=== PATIENT | male | born 1950 | race Caucasian/White ===

== ENCOUNTER → 2016-10-24 | Outpatient (CLI) | payer MEDICARE, OTHER ==
[~2016-10-24] MED LIST: /ADVA50050 IN; /FEXO60TA OR; ACTO45TA OR; ALBU17IN2 INH; ALLO100T OR; ALLO100T PO; AMLO5TAB OR; ASCO500T PO; ASPI81TA85 PO; BUPR100T12 OR; BUPR300T34 PO; CIAL20TA OR; CIAL20TA PO; COLA100C PO; DIAZ5TAB OR; DULC10SU2 PR; FEXO60CA PO; FLEEENE4 PR; FLON1SPR; FLUO20CA8 PO; FOLI1TAB OR; FOLI1TAB2 PO; GABA-283 PO; HUMA100I3 SC; IMIT50TA OR; INSULADS SC; INSULANT SC; LASI40TA OR; LISI10TA2 PO; LISI10TA4 PO; LISI5TAB OR; MAGN400C2 PO; META28.35 PO; METO-207 PO; MILK140C PO; MILKSUS PO; NEUR600T PO; NOVOLOG100 MG/ML SC; PERC10TA17 PO; PERC5TAB6 PO; PRAD150C PO; PRAV1TAB39 PO; PRAV20TA2 OR; PREV15CA OR; PREV30CA11 PO; PROZ20CA OR; SENO8.6T2 PO; SYMB80INH INH; THIA100T OR; TOPR25TA OR; TOPR25TA PO; TYLE325T5 PO; VALI5TAB PO; VIAG100T PO; VITA10002 PO; VITA100T2 PO; VITA200016 PO; VITACAP8 PO; ZANA4CAP PO; [UNRECOGNIZED DRUG - CODE] PO
[2016-10-24 21:54] LABS: CREATININE FOR GFR 1.35 MG/DL (0.70-1.30); GLOMERULAR FILTRATION RATE 56.3 (>49)
== END ==
LOC: M SMT 13:57
PROVIDERS: ATTEND Orthopaedic Surgery
DX: M89.9 Disorder of bone, unspecified (principal)

== ENCOUNTER → 2016-11-01 | Outpatient (CLI) | payer MEDICARE, OTHER ==
--- NOTE | 2016-11-01 16:28 | REP ---
MRI study of the right calf without and with IV gadolinium: History: Question proximal fibular lesion. The patient is status post right hip replacement. No comparison radiographs of the right TIB-fib area. Comparison is made with radiographs of the right femur from October 30, 2015. There is thickening of the anterior aspect of the proximal fibula on the lateral radiograph at the edge of the field of view which may be post-traumatic, old post-traumatic deformity. MR technique: Axial, coronal and sagittal imaging planes are utilized. T1 and T2-weighted scans were obtained. Gadolinium enhancement dose is 11 ml of intravenous ProHance. This was a half-dose protocol re: EGFR 56.3 ml/minute. MRI findings: There is an area of what appears to be old post-traumatic deformity in the proximal fibular diaphysis on the right side. Cortical and medullary bone signal intensity are normal. No intramedullary or periosteal edema is seen. Cortical and medullary bone signal intensity are normal throughout the tibia and fibula. No periosteal reaction is seen. No soft tissue cyst or mass is observed. However, there is abnormal skeletal muscle signal intensity in the anterior compartment, mild in degree in the mid and proximal calf consistent with peroneal nerve distribution with neurogenic muscle edema or localized skeletal muscle contusion. No muscle tear or hematoma is seen. No abnormal contrast enhancement is seen on post gadolinium enhanced images. Skeletal muscle signal intensity is otherwise normal. Minimal joint fluid is seen at the knee. Impression: Abnormal skeletal muscle signal intensity on T2-weighted scans in the anterior compartment of the proximal and mid calf on the right. Question peroneal nerve neuropathy versus localized skeletal muscle contusion. Signed by Matthew Joseph MD 11/01/2016 04:53 P
== END ==
LOC: M RAD 13:47
PROVIDERS: ATTEND Orthopaedic Surgery
DX: M89.9 Disorder of bone, unspecified (principal)
CPT/HCPCS: 73720; A9576

== ENCOUNTER → 2016-11-06 | Outpatient (CLI) | payer MEDICARE, OTHER ==
[2016-11-06 14:07] LABS: ALBUMIN 3.8 GM/DL (3.2-5.2); ALBUMIN/GLOBULIN RATIO 1.19 (1.00-1.93); BILIRUBIN,TOTAL 0.5 MG/DL (0.2-1.0); CALCIUM LEVEL 9.8 MG/DL (8.8-10.2); CREATININE FOR GFR 1.4 MG/DL (0.70-1.30); MAGNESIUM LEVEL 1.9 MG/DL (1.8-2.4); POTASSIUM SERUM 4.9 MEQ/L (3.5-5.1)
[2016-11-06 14:12] LABS: MEAN CORPUSCULAR HEMOGLOBIN 29.5 pg (27.0-33.0); MEAN CORPUSCULAR VOLUME 92.2 fl (80.0-96.0); RED CELL DISTRIBUTION WIDTH 14.5 % (11.5-14.5)
== END ==
LOC: M SMT 09:00
PROVIDERS: ATTEND Physician Assistant
DX: I42.0 Dilated cardiomyopathy (principal); E78.00 Pure hypercholesterolemia, unspecified; I48.0 Paroxysmal atrial fibrillation

== ENCOUNTER 2017-01-04 17:15 | Emergency (ER) | payer MEDICARE, OTHER ==
[~2017-01-04] VITALS: Ht 188 cm; Wt 86.2 kg
[2017-01-04] MEDS ORDERED: NS 1,000 ML IV SCH (17:30)
[2017-01-04] MEDS ORDERED: INSUHUMDS SC (17:41)
[2017-01-04] MEDS ORDERED: TRES1INJ2 SC (17:41)
[2017-01-04 18:24] LABS: BASO % 0.3 % (0.0-1.0); EOS % 0.4 % (0.0-3.0); LARGE UNSTAINED CELL # 0.2 K/mm3 (0.0-0.4); LARGE UNSTAINED CELL % 1.6 % (0.0-4.0); LYMPH # 1.2 K/mm3 (1.5-4.5); LYMPH % 10.7 % (24.0-44.0); MEAN CORPUSCULAR HEMOGLOBIN 29.3 pg (27.0-33.0); MEAN CORPUSCULAR HGB CONC 32.2 g/dl (32.0-36.5); MEAN CORPUSCULAR VOLUME 91.1 fl (80.0-96.0); MONO # 0.7 K/mm3 (0.0-0.8); MONO % 7.2 % (0.0-5.0); NEUTROPHILS # 7.6 K/mm3 (1.8-7.7); NEUTROPHILS % 79.8 % (36.0-66.0); PLATELET COUNT, AUTOMATED 226 k/mm3 (150-450); RED CELL DISTRIBUTION WIDTH 13.3 % (11.5-14.5); WHITE BLOOD COUNT 9.5 K/mm3 (4.0-10.0)
--- NOTE | 2017-01-04 18:40 | REP ---
CHEST, TWO VIEWS: REASON: Chest pain. COMPARISON: 10/29/2015 COMPARISON: No priors. FINDINGS: The superior mediastinal structures are midline. The cardiac silhouette is unremarkable in size, shape, and position. The diaphragmatic surfaces of the lungs are regular, and the costophrenic angles are clear. The pulmonary atkins are clear. The imaged osseous structures are intact. No significant change from the prior exam other than technique. IMPRESSION: There is no acute cardiopulmonary disease. Signed by Noé Mendez DO 01/04/2017 07:18 P
[2017-01-04 18:55] LABS: ANION GAP 10 MEQ/L (8-16); BLOOD UREA NITROGEN 11 MG/DL (7-18); CALCIUM LEVEL 8.9 MG/DL (8.8-10.2); CARBON DIOXIDE LEVEL 26 MEQ/L (21-32); CHLORIDE LEVEL 102 MEQ/L (98-107); CREATININE FOR GFR 0.88 MG/DL (0.70-1.30); GLOMERULAR FILTRATION RATE > 60.0 (>49); GLUCOSE, FASTING 129 MG/DL (80-110); POTASSIUM SERUM 4.8 MEQ/L (3.5-5.1); SODIUM LEVEL 138 MEQ/L (136-145)
--- NOTE | 2017-01-04 18:58 | REP ---
CT HEAD WITHOUT CONTRAST: HISTORY: Syncopal episode. COMPARISON: 12/09/2014 The deep cerebral white matter is unchanged. The posterior fossa is unchanged. There is no evidence of an acute intracranial hemorrhagic or nonhemorrhagic event. There is no skull fracture. The paranasal sinuses and mastoid air cells are clear. IMPRESSION: Stable chronic changes compared to 12/09/2014 showing deep white matter ischemic disease and atrophy. There is no evidence of acute disease. Signed by Noé Mendez DO 01/04/2017 07:18 P
[2017-01-04 20:29] VITALS: BP 133/78
--- NOTE | 2017-01-05 08:54 | ECGEPIP ---
Stationary ECG Study [facility] - ED Test Date: 2017-01-04 Pat Name: CHACHO LANDRUM Department: Room: - Gender: M Manager Government: JT : 1950 Requested By: MARISOL Snyder Order Number: [id number] Reading MD: Erica Guillory Measurements Intervals [place] Rate: 69 P: -30 [place]: 127 QRS: -24 QRSD: 89 T: -10 QT: 418 QTc: 448 Interpretive Statements SINUS RHYTHM INFERIOR MYOCARDIAL INFARCTION, OF INDETERMINATE AGE INCREASED RATE 04/26/16 Electronically Signed On 01-05-2017 8:54:13 EDT by Erica Guillory
== END 2017-01-04 20:39 | disposition home or self-care (01) ==
LOC: EDBD 17:15 → M ED 17:44
DX: R55 Syncope and collapse (principal); E11.65 Type 2 diabetes mellitus with hyperglycemia; I12.9 Hypertensive chronic kidney disease with stage 1 through stage 4 chronic kidney disease, or unspecified chronic kidney disease; I48.91 Unspecified atrial fibrillation; I42.0 Dilated cardiomyopathy; E11.22 Type 2 diabetes mellitus with diabetic chronic kidney disease; E55.9 Vitamin D deficiency, unspecified; E78.5 Hyperlipidemia, unspecified; N18.9 Chronic kidney disease, unspecified; F32.9 Major depressive disorder, single episode, unspecified; N52.9 Male erectile dysfunction, unspecified; Z79.82 Long term (current) use of aspirin; Z79.899 Other long term (current) drug therapy

== ENCOUNTER → 2017-11-16 | Outpatient (CLI) | payer MEDICARE, OTHER ==
[2017-11-16 15:04] LABS: HEMATOCRIT 44.8 % (42.0-52.0); HEMOGLOBIN 14.8 g/dl (14.0-18.0); MEAN CORPUSCULAR HEMOGLOBIN 28.4 pg (27.0-33.0); MEAN CORPUSCULAR VOLUME 85.8 fl (80.0-96.0); PLATELET COUNT, AUTOMATED 237 10^3/uL (150-450); RED BLOOD COUNT 5.22 10^6/uL (4.30-6.10); RED CELL DISTRIBUTION WIDTH 13.9 % (11.5-14.5); WHITE BLOOD COUNT 7.3 10^3/uL (4.0-10.0)
[2017-11-16 15:14] LABS: ALBUMIN 3.7 GM/DL (3.2-5.2); ALBUMIN/GLOBULIN RATIO 1.09 (1.00-1.93); ALKALINE PHOSPHATASE 124 U/L (45-117); ALT/SGPT 33 U/L (12-78); ANION GAP 7 MEQ/L (8-16); AST/SGOT 29 U/L (7-37); BILIRUBIN,TOTAL 0.5 MG/DL (0.2-1.0); BLOOD UREA NITROGEN 11 MG/DL (7-18); CARBON DIOXIDE LEVEL 28 MEQ/L (21-32); CHLORIDE LEVEL 104 MEQ/L (98-107); CHOLESTEROL LEVEL 137 MG/DL (<200); CHOLESTEROL RISK RATIO 2.209 (<5); CREATININE FOR GFR 1.04 MG/DL (0.70-1.30); GLOMERULAR FILTRATION RATE > 60.0 (>49); GLUCOSE, FASTING 374 MG/DL (70-100); HDL CHOLESTEROL 62 MG/DL (>40); LDL CHOLESTEROL 56.8 MG/DL (<100); MAGNESIUM LEVEL 1.5 MG/DL (1.8-2.4); NON-HDL-C 75 MG/DL; POTASSIUM SERUM 4.8 MEQ/L (3.5-5.1); SODIUM LEVEL 139 MEQ/L (136-145); TOTAL PROTEIN 7.1 GM/DL (6.4-8.2); TRIGLYCERIDES LEVEL 91 MG/DL (<150)
== END ==
LOC: M SMT 08:26
DX: I48.0 Paroxysmal atrial fibrillation (principal); I42.0 Dilated cardiomyopathy; I50.32 Chronic diastolic (congestive) heart failure; E78.00 Pure hypercholesterolemia, unspecified
CPT/HCPCS: 83735

== ENCOUNTER → 2017-11-16 | Outpatient (CLI) | payer MEDICARE, OTHER ==
[2017-11-16 14:58] LABS: BASO % 0.4 % (0.0-1.0); EOS # 0.2 10^3/uL (0.0-0.50); EOS % 2.8 % (0.0-3.0); HEMATOCRIT 44.7 % (42.0-52.0); HEMOGLOBIN 14.8 g/dl (14.0-18.0); IMMATURE GRANULOCYTE % 0.5 % (0-0); LYMPH # 1.9 10^3/uL (1.5-4.5); LYMPH % 24.9 % (24.0-44.0); MEAN CORPUSCULAR HEMOGLOBIN 28.3 pg (27.0-33.0); MEAN CORPUSCULAR HGB CONC 33.1 g/dl (32.0-36.5); MEAN CORPUSCULAR VOLUME 85.5 fl (80.0-96.0); MONO # 0.7 10^3/uL (0.0-0.8); MONO % 9.7 % (0.0-5.0); NEUTROPHILS # 4.6 10^3/uL (1.8-7.7); NEUTROPHILS % 61.7 % (36.0-66.0); PLATELET COUNT, AUTOMATED 248 10^3/uL (150-450); RED BLOOD COUNT 5.23 10^6/uL (4.30-6.10); RED CELL DISTRIBUTION WIDTH 13.8 % (11.5-14.5); WHITE BLOOD COUNT 7.4 10^3/uL (4.0-10.0)
[2017-11-16 15:08] LABS: C REACTIVE PROTEIN QUANTITATIV < 0.30 MG/DL (0.00-0.30); RHEUMATOID FACTOR QUANT < 10.0 IU/ML (0-15.0)
[2017-11-16 17:22] LABS: ERYTHROCYTE SEDIMENTATION RATE 4 mm/hr (0-20)
[2017-11-18 00:06] LABS: ANTINUCLEAR ANTIBODIES DIRECT Negative (Negative); Lyme Disease IgG/IgM Antibodie <0.91 ISR (0.00-0.90); Lyme Disease IgM Ab Quantitati <0.80 index (0.00-0.79)
== END ==
LOC: M SMT 08:31
DX: M17.12 Unilateral primary osteoarthritis, left knee (principal); I42.0 Dilated cardiomyopathy; I48.0 Paroxysmal atrial fibrillation; I50.32 Chronic diastolic (congestive) heart failure; E78.00 Pure hypercholesterolemia, unspecified
CPT/HCPCS: 83735; 84550

== ENCOUNTER 2018-02-23 19:09 | Emergency (ER) | payer MEDICARE, OTHER ==
[2018-02-23] MEDS: NORCO 5/325MG TABLET (BULK FOR ED) PO (21:46)
[2018-02-23] MEDS: PERCOCET 5MG/325MG TAB PO (21:46)
== END 2018-02-23 22:14 | disposition home or self-care (01) ==
LOC: M ED 19:09
DX: S42.031A Displaced fracture of lateral end of right clavicle, initial encounter for closed fracture (principal); W01.0XXA Fall on same level from slipping, tripping and stumbling without subsequent striking against object, initial encounter; Y92.098 Other place in other non-institutional residence as the place of occurrence of the external cause; F10.10 Alcohol abuse, uncomplicated; Z87.891 Personal history of nicotine dependence; J45.909 Unspecified asthma, uncomplicated; K21.9 Gastro-esophageal reflux disease without esophagitis; I50.9 Heart failure, unspecified; I13.0 Hypertensive heart and chronic kidney disease with heart failure and stage 1 through stage 4 chronic kidney disease, or unspecified chronic kidney disease; N18.9 Chronic kidney disease, unspecified; F41.9 Anxiety disorder, unspecified; F32.9 Major depressive disorder, single episode, unspecified; E11.40 Type 2 diabetes mellitus with diabetic neuropathy, unspecified; Z79.899 Other long term (current) drug therapy; Z79.01 Long term (current) use of anticoagulants; Z79.82 Long term (current) use of aspirin; Z79.4 Long term (current) use of insulin
CPT/HCPCS: 73030

== ENCOUNTER → 2018-03-26 | Outpatient (CLI) | payer MEDICARE, OTHER | LOC: M RAD 09:12 | DX: N18.2 Chronic kidney disease, stage 2 (mild) (principal); I12.9 Hypertensive chronic kidney disease with stage 1 through stage 4 chronic kidney disease, or unspecified chronic kidney disease; N20.0 Calculus of kidney; N28.1 Cyst of kidney, acquired | CPT/HCPCS: 76775 ==

== ENCOUNTER 2018-04-11 11:07 | Emergency (ER) | payer MEDICARE, OTHER ==
[2018-04-11] MEDS: TETANUS/DIPHTHERIA TOX ADSORB ADULT 0.5ML SYR/VIAL (90714) IM (12:41)
[2018-04-11] MEDS: NS 1,000 ML IV (13:42)
[2018-04-11 13:51] LABS: BASO % 0.4 % (0.0-1.0); EOS # 0.2 10^3/uL (0.0-0.50); EOS % 1.4 % (0.0-3.0); HEMATOCRIT 40.4 % (42.0-52.0); HEMOGLOBIN 13.4 g/dl (13.5-17.5); IMMATURE GRANULOCYTE % 0.6 % (0-3.0); LYMPH # 1.4 10^3/uL (1.5-4.5); LYMPH % 13.7 % (24.0-44.0); MEAN CORPUSCULAR HEMOGLOBIN 28.3 pg (27.0-33.0); MEAN CORPUSCULAR HGB CONC 33.2 g/dl (32.0-36.5); MEAN CORPUSCULAR VOLUME 85.4 fl (80.0-96.0); MONO # 0.9 10^3/uL (0.0-0.8); NEUTROPHILS # 7.8 10^3/uL (1.8-7.7); NEUTROPHILS % 74.9 % (36.0-66.0); PLATELET COUNT, AUTOMATED 247 10^3/uL (150-450); RED BLOOD COUNT 4.73 10^6/uL (4.30-6.10); RED CELL DISTRIBUTION WIDTH 14.5 % (11.5-14.5); WHITE BLOOD COUNT 10.4 10^3/uL (4.0-10.0)
[2018-04-11 15:26] LABS: ANION GAP 8 MEQ/L (8-16); BLOOD UREA NITROGEN 15 MG/DL (7-18); CALCIUM LEVEL 8.9 MG/DL (8.8-10.2); CARBON DIOXIDE LEVEL 28 MEQ/L (21-32); CHLORIDE LEVEL 104 MEQ/L (98-107); CK-MB VALUE MASS 10.7 NG/ML (<3.6); CPK CREATINE PHOSPHOKINASE 309 U/L (39-308); CREATININE FOR GFR 0.95 MG/DL (0.70-1.30); GLOMERULAR FILTRATION RATE > 60.0 (>49); GLUCOSE, FASTING 183 MG/DL (70-100); MB/CK RELATIVE INDEX 3.46 (< OR =4); POTASSIUM SERUM 4.1 MEQ/L (3.5-5.1); SODIUM LEVEL 140 MEQ/L (136-145); TROPONIN I < 0.02 NG/ML (< 0.10)
== END 2018-04-11 16:04 | disposition home or self-care (01) ==
LOC: M ED 11:07
DX: S09.90XA Unspecified injury of head, initial encounter (principal); S01.01XA Laceration without foreign body of scalp, initial encounter; W01.10XA Fall on same level from slipping, tripping and stumbling with subsequent striking against unspecified object, initial encounter; Y92.099 Unspecified place in other non-institutional residence as the place of occurrence of the external cause; Y93.01 Activity, walking, marching and hiking; Y99.9 Unspecified external cause status; I48.91 Unspecified atrial fibrillation; I25.10 Atherosclerotic heart disease of native coronary artery without angina pectoris; E11.9 Type 2 diabetes mellitus without complications; I10 Essential (primary) hypertension; M19.90 Unspecified osteoarthritis, unspecified site; J44.9 Chronic obstructive pulmonary disease, unspecified; K21.9 Gastro-esophageal reflux disease without esophagitis; F41.9 Anxiety disorder, unspecified; F32.9 Major depressive disorder, single episode, unspecified; Z87.891 Personal history of nicotine dependence; Z79.82 Long term (current) use of aspirin; Z79.4 Long term (current) use of insulin; Z79.899 Other long term (current) drug therapy
CPT/HCPCS: 90714

== ENCOUNTER → 2018-05-13 | Outpatient (CLI) | payer MEDICARE, OTHER ==
[2018-05-13 13:32] LABS: ALBUMIN 3.6 GM/DL (3.2-5.2); ALBUMIN/GLOBULIN RATIO 1.13 (1.00-1.93); ALKALINE PHOSPHATASE 151 U/L (45-117); ALT/SGPT 27 U/L (12-78); ANION GAP 8 MEQ/L (8-16); AST/SGOT 29 U/L (7-37); BILIRUBIN,TOTAL 0.7 MG/DL (0.2-1.0); BLOOD UREA NITROGEN 14 MG/DL (7-18); CALCIUM LEVEL 8.8 MG/DL (8.8-10.2); CARBON DIOXIDE LEVEL 28 MEQ/L (21-32); CHLORIDE LEVEL 102 MEQ/L (98-107); CREATININE FOR GFR 1.07 MG/DL (0.70-1.30); GLOMERULAR FILTRATION RATE > 60.0 (>49); GLUCOSE, FASTING 370 MG/DL (70-100); MAGNESIUM LEVEL 1.5 MG/DL (1.8-2.4); POTASSIUM SERUM 4.8 MEQ/L (3.5-5.1); SODIUM LEVEL 138 MEQ/L (136-145); TOTAL PROTEIN 6.8 GM/DL (6.4-8.2)
[2018-05-13 14:57] LABS: HEMATOCRIT 38.4 % (42.0-52.0); HEMOGLOBIN 12.8 g/dl (13.5-17.5); MEAN CORPUSCULAR HEMOGLOBIN 28.1 pg (27.0-33.0); MEAN CORPUSCULAR HGB CONC 33.3 g/dl (32.0-36.5); MEAN CORPUSCULAR VOLUME 84.4 fl (80.0-96.0); PLATELET COUNT, AUTOMATED 231 10^3/uL (150-450); RED BLOOD COUNT 4.55 10^6/uL (4.30-6.10); RED CELL DISTRIBUTION WIDTH 13.6 % (11.5-14.5); WHITE BLOOD COUNT 6.1 10^3/uL (4.0-10.0)
== END ==
LOC: M LAB 12:16
DX: I42.0 Dilated cardiomyopathy (principal)
CPT/HCPCS: 83735

== ENCOUNTER → 2018-05-16 | Outpatient (REF) | payer MEDICARE, OTHER ==
[2018-05-16 14:15] LABS: FOLATE > 24.0 NG/ML; VITAMIN B12 LEVEL 1110 PG/ML
[2018-05-16 14:19] LABS: FERRITIN 14 NG/ML (26-388); FREE T4 1.11 NG/DL (0.76-1.46); IRON (FE) 34 UG/DL (65-175); PERCENT SATURATION 7.6 % (19.7-50.0); TOTAL IRON BINDING CAPACITY 448 UG/DL (250-450)
== END ==
LOC: M SFHCADAM 10:01
DX: D64.9 Anemia, unspecified (principal)
CPT/HCPCS: 82746

== ENCOUNTER → 2018-05-17 | Outpatient (CLI) | payer MEDICARE, OTHER | LOC: M LAB 09:40 | DX: D64.9 Anemia, unspecified (principal) ==

== ENCOUNTER → 2018-05-24 | Outpatient (REF) | payer MEDICARE, OTHER ==
[2018-05-24 19:47] LABS: ANION GAP 11 MEQ/L (8-16); BLOOD UREA NITROGEN 13 MG/DL (7-18); CALCIUM LEVEL 9.1 MG/DL (8.8-10.2); CARBON DIOXIDE LEVEL 25 MEQ/L (21-32); CHLORIDE LEVEL 102 MEQ/L (98-107); CREATININE FOR GFR 1.04 MG/DL (0.70-1.30); GLOMERULAR FILTRATION RATE > 60.0 (>49); GLUCOSE, FASTING 305 MG/DL (70-100); POTASSIUM SERUM 4.4 MEQ/L (3.5-5.1); SODIUM LEVEL 138 MEQ/L (136-145)
[2018-05-24 20:04] LABS: HEMATOCRIT 38.4 % (42.0-52.0); HEMOGLOBIN 12.6 g/dl (13.5-17.5); MEAN CORPUSCULAR HGB CONC 32.8 g/dl (32.0-36.5); MEAN CORPUSCULAR VOLUME 85.3 fl (80.0-96.0); PLATELET COUNT, AUTOMATED 241 10^3/uL (150-450); RED CELL DISTRIBUTION WIDTH 14.4 % (11.5-14.5); WHITE BLOOD COUNT 7.8 10^3/uL (4.0-10.0)
== END ==
LOC: M SFHCADAM 13:31
DX: D50.0 Iron deficiency anemia secondary to blood loss (chronic) (principal)
CPT/HCPCS: 80048

== ENCOUNTER 2018-07-10 08:09 | Day surgery (SDC) | payer MEDICARE, OTHER ==
[2018-07-10] MEDS: NS 1,000 ML IV (08:15)
[2018-07-10 09:51] LABS: BEDSIDE GLUCOSE 148 MG/DL (80-115)
[2018-07-10] MEDS ORDERED: fentaNYL 100 MCG/2 ML INJECTION (J3010) As Ordered (09:54)
[2018-07-10] MEDS ORDERED: LIDOCAINE 2% INJ 100 MG/5 ML SDV (FOR ANES.) As Ordered (09:54)
[2018-07-10] MEDS ORDERED: PROPOFOL 200 MG/20 ML VIAL As Ordered ×2 (09:54)
== END 2018-07-10 11:01 | disposition home or self-care (01) ==
LOC: M OPP 08:09
DX: D50.9 Iron deficiency anemia, unspecified (principal); Z86.010 Personal history of colon polyps; K64.0 First degree hemorrhoids; K57.30 Diverticulosis of large intestine without perforation or abscess without bleeding; K22.8 Other specified diseases of esophagus; K44.9 Diaphragmatic hernia without obstruction or gangrene; R63.8 Other symptoms and signs concerning food and fluid intake; R11.0 Nausea; I48.91 Unspecified atrial fibrillation; I50.9 Heart failure, unspecified; I11.0 Hypertensive heart disease with heart failure; E78.5 Hyperlipidemia, unspecified; I42.9 Cardiomyopathy, unspecified; E11.9 Type 2 diabetes mellitus without complications; K21.9 Gastro-esophageal reflux disease without esophagitis; R12 Heartburn; M19.90 Unspecified osteoarthritis, unspecified site; H25.9 Unspecified age-related cataract; G43.909 Migraine, unspecified, not intractable, without status migrainosus; M10.9 Gout, unspecified; F41.9 Anxiety disorder, unspecified; F32.9 Major depressive disorder, single episode, unspecified; J45.909 Unspecified asthma, uncomplicated; R06.83 Snoring; N18.9 Chronic kidney disease, unspecified; Z79.899 Other long term (current) drug therapy; Z79.82 Long term (current) use of aspirin; Z79.4 Long term (current) use of insulin; Z79.01 Long term (current) use of anticoagulants; Z87.891 Personal history of nicotine dependence
CPT/HCPCS: 45378

== ENCOUNTER → 2018-09-30 | Outpatient (REF) | payer MEDICARE, OTHER ==
[2018-09-30 13:29] LABS: BACTERIA, URINE AUTO NEGATIVE (NEGATIVE); RBC, URINE AUTO 3 /HPF (0-3); SQUAMOUS EPITHELIAL CELL UR AU 0 /HPF (0-6); WBC, URINE AUTO 1 /HPF (0-3)
== END ==
LOC: M LAB REF 12:58
DX: N18.2 Chronic kidney disease, stage 2 (mild) (principal)
CPT/HCPCS: 81015

== ENCOUNTER → 2018-11-06 | Outpatient (CLI) | payer MEDICARE, OTHER ==
[~2018-11-06] MED LIST changes: +CIAL10TA PO; -COLA100C PO; +COLA100C5 PO; +FOLI1TAB11 PO; -FOLI1TAB2 PO; -GABA-283 PO; +GABA-845 PO; +GLUC1CAP10 PO; +INSUHUMDS SC; +LISI-538 PO; -METO-207 PO; +METO1TAB7 PO; +MILK120011 PO; +MILK150C PO; -MILKSUS PO; +MOME50SP2; +MULT1TAB10 PO; +NORCOTAB PO; -PERC10TA17 PO; +PERC10TA26 PO; +PERC5TAB12 PO; -PERC5TAB6 PO; +PREV1CAP PO; -PREV30CA11 PO; -SENO8.6T2 PO; +SENO8.6T5 PO; -TOPR25TA PO; +TOPR25TA13 PO; +TRES1INJ2 SC; -VITA100T2 PO; +VITA100T8 PO
--- NOTE | 2018-11-06 16:31 | REP ---
Chest two views HISTORY: Bronchitis Comparison: 01/04/2017 The lungs are clear. The heart is normal in size. The pulmonary vasculature is normal in appearance. The bony structure is intact. IMPRESSION: No acute disease. Electronically Signed by Marquez Mckeon MD 11/06/2018 04:23 P
== END ==
LOC: M ADAMS 16:02
PROVIDERS: ATTEND Physician Assistant
DX: J40 Bronchitis, not specified as acute or chronic (principal); J44.9 Chronic obstructive pulmonary disease, unspecified
CPT/HCPCS: 71046; G0463

== ENCOUNTER → 2018-11-18 | Outpatient (CLI) | payer MEDICARE, OTHER ==
[2018-11-18 13:24] LABS: HEMOGLOBIN 14.4 g/dl (13.5-17.5); MEAN CORPUSCULAR HEMOGLOBIN 26.7 pg (27.0-33.0); MEAN CORPUSCULAR HGB CONC 32.7 g/dl (32.0-36.5); MEAN CORPUSCULAR VOLUME 81.5 fl (80.0-96.0); PLATELET COUNT, AUTOMATED 409 10^3/uL (150-450); WHITE BLOOD COUNT 10.6 10^3/uL (4.0-10.0)
[2018-11-18 13:50] LABS: BILIRUBIN,TOTAL 0.7 MG/DL (0.2-1.0); CALCIUM LEVEL 10.2 MG/DL (8.8-10.2); CHOLESTEROL RISK RATIO 2.959 (<5); CREATININE FOR GFR 1.59 MG/DL (0.70-1.30); GLOMERULAR FILTRATION RATE 46.3 (>49); MAGNESIUM LEVEL 1.9 MG/DL (1.8-2.4); POTASSIUM SERUM 4.7 MEQ/L (3.5-5.1); TOTAL PROTEIN 7.7 GM/DL (6.4-8.2)
== END ==
LOC: M SMT 10:37
PROVIDERS: ATTEND Physician Assistant
DX: I42.0 Dilated cardiomyopathy (principal); I48.0 Paroxysmal atrial fibrillation; E78.00 Pure hypercholesterolemia, unspecified

== ENCOUNTER → 2018-12-17 | Outpatient (CLI) | payer MEDICARE, OTHER ==
[2018-12-17 13:45] LABS: BLOOD UREA NITROGEN 14 MG/DL (7-18); CARBON DIOXIDE LEVEL 28 MEQ/L (21-32); CHLORIDE LEVEL 103 MEQ/L (98-107); CREATININE FOR GFR 1.13 MG/DL (0.70-1.30); GLOMERULAR FILTRATION RATE > 60.0 (>49); GLUCOSE, FASTING 124 MG/DL (70-100); POTASSIUM SERUM 4.7 MEQ/L (3.5-5.1); SODIUM LEVEL 138 MEQ/L (136-145)
== END ==
LOC: M SMT 10:43
PROVIDERS: ATTEND Physician Assistant
DX: I50.32 Chronic diastolic (congestive) heart failure (principal)

== ENCOUNTER 2019-01-06 07:19 | Day surgery (SDC) | payer MEDICARE, OTHER ==
[~2019-01-06] VITALS: Ht 188 cm; Wt 84.4 kg
[~2019-01-06 07:19] MED LIST changes: +NS 1,000 ML IV ONE
[2019-01-06] MEDS ORDERED: LIDOCAINE 2% INJ 100 MG/5 ML SDV (FOR ANES.) As Ordered ONE (07:38)
[2019-01-06] MEDS ORDERED: PROPOFOL 200 MG/20 ML VIAL As Ordered ONE (07:38)
--- NOTE | 2019-01-06 08:50 | ROOR ---
Patient Name: Eran Ring Procedure Date: 01/06/2019 8:30 AM Date of : 1950 Age: 68 Room: [facility]AC, [facility] Gender: Male Note Status: Finalized Procedure: Upper Endoscopy + Biopsies Indications: Heartburn, Failure to respond to medical treatment Providers: Enoc Gallagher MD Referring MD: ASHLEY Ball Requesting Provider: Medicines: Monitored Anesthesia Care Complications: No immediate complications. Procedure: Pre-Anesthesia Assessment: - The heart rate, respiratory rate, oxygen saturations, blood pressure, adequacy of pulmonary ventilation, and response to care were monitored throughout the procedure. The Endoscope was introduced through the mouth, and advanced to the second part of duodenum. The upper GI endoscopy was accomplished without difficulty. The patient tolerated the procedure well. Findings: The Z-line was irregular and was found 40 cm from the incisors. Multiple biopsies were obtained with cold forceps for evaluation to rule out Foss's Esophagus randomly at the gastroesophageal junction. A medium-sized hiatal hernia was present. No other significant abnormalities were identified in a careful examination of the stomach. The exam of the duodenum was otherwise normal. Impression: - Z-line irregular, 40 cm from the incisors. - Medium-sized hiatal hernia. - Multiple biopsies were obtained at the gastroesophageal junction. - The examination was otherwise normal. Recommendation: - Patient has a contact number available for emergencies. The signs and symptoms of potential delayed complications were discussed with the patient. Return to normal activities tomorrow. Written discharge instructions were provided to the patient. - High fiber diet. - Discharge patient to home. - Continue present medications. - Await pathology results. - Telephone GI clinic for pathology results in 1 week. - Return to referring physician. - The findings and recommendations were discussed with the patient's family. Enoc Gallagher MD Enoc Gallagher MD 01/06/2019 8:50:30 AM This report has been signed electronically. Number of Addenda: 0 Note Initiated On: 01/06/2019 8:30 AM Estimated Blood Loss: Estimated blood loss: none.
[2019-01-06 09:19] VITALS: BP 143/93
== END 2019-01-06 09:37 | disposition home or self-care (01) ==
LOC: M OPP 07:19
PROVIDERS: ATTEND Internal Medicine Gastroenterology
DX: K22.8 Other specified diseases of esophagus (principal); K44.9 Diaphragmatic hernia without obstruction or gangrene; R12 Heartburn; I48.2 Chronic atrial fibrillation; I50.9 Heart failure, unspecified; Z79.82 Long term (current) use of aspirin; Z79.899 Other long term (current) drug therapy; Z87.891 Personal history of nicotine dependence

== ENCOUNTER 2019-01-09 11:54 | Emergency (ER) | payer MEDICARE, OTHER ==
[~2019-01-09] VITALS: Ht 188 cm; Wt 84.5 kg
[~2019-01-09 11:54] MED LIST changes: -/ADVA50050 IN; +ADVA1AER2 IN; +HYDR-3715 PO; +METO-1 OR; -NORCOTAB PO; -NS 1,000 ML IV ONE; -TOPR25TA OR
[2019-01-09] MEDS ORDERED: DEXTROSE 50% 50 ML SYRINGE IV STA (11:58)
[2019-01-09 12:47] LABS: BASO % 0.3 % (0.0-1.0); EOS # 0.1 10^3/uL (0.0-0.50); EOS % 1.4 % (0.0-3.0); HEMATOCRIT 42.4 % (42.0-52.0); HEMOGLOBIN 13.7 g/dl (13.5-17.5); LYMPH # 2.3 10^3/uL (1.5-4.5); LYMPH % 24.4 % (24.0-44.0); MEAN CORPUSCULAR HEMOGLOBIN 26.9 pg (27.0-33.0); MEAN CORPUSCULAR HGB CONC 32.3 g/dl (32.0-36.5); MEAN CORPUSCULAR VOLUME 83.3 fl (80.0-96.0); MONO # 0.7 10^3/uL (0.0-0.8); MONO % 7.3 % (0.0-5.0); NEUTROPHILS # 6.2 10^3/uL (1.8-7.7); NEUTROPHILS % 66.1 % (36.0-66.0); PLATELET COUNT, AUTOMATED 312 10^3/uL (150-450); RED BLOOD COUNT 5.09 10^6/uL (4.30-6.10); WHITE BLOOD COUNT 9.4 10^3/uL (4.0-10.0)
[2019-01-09 13:23] LABS: ALBUMIN 3.5 GM/DL (3.2-5.2); ALT/SGPT 25 U/L (12-78); BILIRUBIN,DIRECT 0.1 MG/DL (0.0-0.2); BILIRUBIN,TOTAL 0.5 MG/DL (0.2-1.0); BLOOD UREA NITROGEN 22 MG/DL (7-18); CALCIUM LEVEL 9.5 MG/DL (8.8-10.2); CARBON DIOXIDE LEVEL 26 MEQ/L (21-32); CHLORIDE LEVEL 102 MEQ/L (98-107); CREATININE FOR GFR 1.24 MG/DL (0.70-1.30); GLOMERULAR FILTRATION RATE > 60.0 (>49); GLUCOSE, FASTING 195 MG/DL (70-100); POTASSIUM SERUM 4.1 MEQ/L (3.5-5.1); SODIUM LEVEL 137 MEQ/L (136-145); TOTAL PROTEIN 7.4 GM/DL (6.4-8.2)
[2019-01-09 17:14] VITALS: BP 153/81
--- NOTE | 2019-01-10 06:23 | ECGEPIP ---
Stationary ECG Study [facility] - ED Test Date: 2019-01-09 Pat Name: CHACHO LANDRUM Department: Room: - Gender: M Glost Kiln Operator: TC : 1950 Requested By: Erica Guillory Order Number: [id number] Reading MD: Marin Sarah Measurements Intervals [place] Rate: 60 P: -25 [place]: 122 QRS: -20 QRSD: 100 T: -5 QT: 449 QTc: 450 Interpretive Statements SINUS RHYTHM MINIMAL VOLTAGE CRITERIA FOR LVH, CONSIDER NORMAL VARIANT SIMILAR TO 04/11/18 Electronically Signed On 01-10-2019 6:22:50 EDT by Marin Sarah
== END 2019-01-09 17:16 | disposition home or self-care (01) ==
LOC: M ED 11:54 → EDBD 11:54 → M ED 17:16
DX: Z04.1 Encounter for examination and observation following transport accident (principal); V43.52XA Car driver injured in collision with other type car in traffic accident, initial encounter; Y92.410 Unspecified street and highway as the place of occurrence of the external cause; E11.649 Type 2 diabetes mellitus with hypoglycemia without coma; I11.0 Hypertensive heart disease with heart failure; I50.30 Unspecified diastolic (congestive) heart failure; I25.10 Atherosclerotic heart disease of native coronary artery without angina pectoris; I42.9 Cardiomyopathy, unspecified; I48.91 Unspecified atrial fibrillation; J44.9 Chronic obstructive pulmonary disease, unspecified; E78.5 Hyperlipidemia, unspecified; K21.9 Gastro-esophageal reflux disease without esophagitis; F41.9 Anxiety disorder, unspecified; F32.9 Major depressive disorder, single episode, unspecified; Z87.891 Personal history of nicotine dependence; Z79.899 Other long term (current) drug therapy; Z79.51 Long term (current) use of inhaled steroids; Z79.82 Long term (current) use of aspirin; Z79.4 Long term (current) use of insulin

== ENCOUNTER → 2019-04-22 | Outpatient (REF) | payer MEDICARE, OTHER ==
[~2019-04-22] MED LIST changes: +ACET1TAB16 PO; -BUPR300T34 PO; +BUPR300T92 PO; +CYAN100049 PO; +FLUO20CA20 PO; -FLUO20CA8 PO; +LISI10TA15 PO; -LISI10TA2 PO; +MULTCAP PO; -PRAD150C PO; +PRAD150C6 PO; +RA M200C4 PO; +TOPR25TA PO; -TOPR25TA13 PO; -VITA10002 PO
[2019-04-22 19:34] LABS: BASO % 0.4 % (0.0-1.0); EOS # 0.1 10^3/uL (0.0-0.50); EOS % 0.7 % (0.0-3.0); HEMOGLOBIN 13.6 g/dl (13.5-17.5); LYMPH # 2.9 10^3/uL (1.5-4.5); LYMPH % 28.8 % (24.0-44.0); MEAN CORPUSCULAR HEMOGLOBIN 28.1 pg (27.0-33.0); MEAN CORPUSCULAR HGB CONC 31.6 g/dl (32.0-36.5); MEAN CORPUSCULAR VOLUME 88.8 fl (80.0-96.0); MONO # 1.1 10^3/uL (0.0-0.8); MONO % 10.6 % (0.0-5.0); NEUTROPHILS # 5.9 10^3/uL (1.8-7.7); NEUTROPHILS % 59.1 % (36.0-66.0); PLATELET COUNT, AUTOMATED 333 10^3/uL (150-450); RED BLOOD COUNT 4.84 10^6/uL (4.30-6.10); WHITE BLOOD COUNT 9.9 10^3/uL (4.0-10.0)
[2019-04-22 20:19] LABS: ERYTHROCYTE SEDIMENTATION RATE 5 mm/hr (0-20)
[2019-04-22 20:36] LABS: ALBUMIN 4.1 GM/DL (3.2-5.2); ALT/SGPT 25 U/L (12-78); BILIRUBIN,TOTAL 0.6 MG/DL (0.2-1.0); BLOOD UREA NITROGEN 13 MG/DL (7-18); CALCIUM LEVEL 9.5 MG/DL (8.8-10.2); CARBON DIOXIDE LEVEL 25 MEQ/L (21-32); CHLORIDE LEVEL 104 MEQ/L (98-107); CREATININE FOR GFR 1.06 MG/DL (0.70-1.30); FREE T4 1.16 NG/DL (0.76-1.46); GLOMERULAR FILTRATION RATE > 60.0 (>49); GLUCOSE, FASTING 63 MG/DL (70-100); POTASSIUM SERUM 4.4 MEQ/L (3.5-5.1); RHEUMATOID FACTOR QUANT < 10.0 IU/ML (<15.0); SODIUM LEVEL 138 MEQ/L (136-145); TOTAL PROTEIN 7.6 GM/DL (6.4-8.2)
[2019-04-22 20:44] LABS: HEMOGLOBIN A1c 8.6 %
[2019-04-29 10:06] LABS: ANTINUCLEAR ANTIBODIES DIRECT Negative (Negative); VITAMIN B6,PYRIDOXAL PHOSPHATE 35.6 ug/L (5.3-46.7); VITAMIN E(ALPHA TOCOPHEROL) 8.1 mg/L (9.0-29.0); VITAMIN E(GAMMA TOCOPHEROL) 0.9 mg/L (0.5-4.9)
[2019-04-30 10:00] LABS: DRVV SCREEN 61.8 SEC
[2019-04-30 10:19] LABS: PTT LUPUS TYPE ANTICOAG SCREEN 1.5 (0-1.2)
[2019-04-30 10:30] LABS: DRVV CONFIRM 58.3 SEC; LUPUS CONFIRM RATIO 1.5
[2019-04-30 11:22] LABS: ALBUMIN % 59.1 % (55.8-66.1)
[2019-04-30 11:24] LABS: ALBUMIN 4.49 GM/DL (3.29-5.55); ALPHA-1-GLOBULIN % 4.1 % (2.9-4.9); ALPHA-1-GLOBULINS 0.31 GM/DL (0.17-0.41); ALPHA-2-GLOBULINS 0.64 GM/DL (0.42-0.99); ALPHA-2-GLOBULINS % 8.4 % (7.1-11.8); BETA-1-GLOBULINS 0.59 GM/DL (0.28-0.60); BETA-1-GLOBULINS % 7.7 % (4.7-7.2); BETA-2-GLOBULINS 0.41 GM/DL (0.19-0.55); BETA-2-GLOBULINS % 5.4 % (3.2-6.5); GAMMA GLOBULIN % 15.3 % (11.1-18.8); GAMMA GLOBULINS 1.16 GM/DL (0.65-1.58)
== END ==
LOC: M LABNEURO 11:52
PROVIDERS: ATTEND Psychiatry & Neurology Neurology
DX: G62.9 Polyneuropathy, unspecified (principal); M54.2 Cervicalgia; M54.5 Low back pain; Z79.82 Long term (current) use of aspirin; Z79.899 Other long term (current) drug therapy

== ENCOUNTER → 2019-07-16 | Outpatient (REF) | payer MEDICARE, OTHER ==
[~2019-07-16] MED LIST changes: -ACET1TAB16 PO; +BUPR300T34 PO; -BUPR300T92 PO; -FLUO20CA20 PO; +FLUO20CA8 PO; -MULTCAP PO; -RA M200C4 PO
[2019-07-16 18:34] LABS: PLATELET COUNT, AUTOMATED 227 10^3/uL (150-450)
== END ==
LOC: M LABDRAW1 18:05
PROVIDERS: ATTEND Physician Assistant
DX: Z01.812 Encounter for preprocedural laboratory examination (principal); M47.817 Spondylosis without myelopathy or radiculopathy, lumbosacral region

== ENCOUNTER → 2019-07-18 | Outpatient (REF) | payer MEDICARE, OTHER ==
[2019-07-18 14:24] LABS: INR 1.18; PROTHROMBIN TIME 14.7 SECONDS (11.8-14.0)
[2019-07-18 14:25] LABS: PARTIAL THROMBOPLASTIN TIME 34.5 SECONDS (25.0-38.4)
== END ==
LOC: M LABDRAW1 12:32
PROVIDERS: ATTEND Physician Assistant
DX: Z01.812 Encounter for preprocedural laboratory examination (principal); M47.817 Spondylosis without myelopathy or radiculopathy, lumbosacral region; Z79.899 Other long term (current) drug therapy; Z79.82 Long term (current) use of aspirin

== ENCOUNTER → 2019-07-24 | Outpatient (REF) | payer MEDICARE, OTHER ==
[~2019-07-24] MED LIST changes: +ACET1TAB16 PO; -BUPR300T34 PO; +BUPR300T92 PO; +FLUO20CA20 PO; -FLUO20CA8 PO; +MULTCAP PO; +RA M200C4 PO
[2019-07-24 12:51] LABS: HEMATOCRIT 39.1 % (42.0-52.0); HEMOGLOBIN 12.7 g/dl (13.5-17.5); MEAN CORPUSCULAR HEMOGLOBIN 27.4 pg (27.0-33.0); MEAN CORPUSCULAR HGB CONC 32.5 g/dl (32.0-36.5); MEAN CORPUSCULAR VOLUME 84.3 fl (80.0-96.0); PLATELET COUNT, AUTOMATED 281 10^3/uL (150-450); RED BLOOD COUNT 4.64 10^6/uL (4.30-6.10); WHITE BLOOD COUNT 8.1 10^3/uL (4.0-10.0)
[2019-07-24 12:55] LABS: ALBUMIN 3.6 GM/DL (3.2-5.2); ALT/SGPT 28 U/L (12-78); BILIRUBIN,TOTAL 0.4 MG/DL (0.2-1.0); BLOOD UREA NITROGEN 12 MG/DL (7-18); CALCIUM LEVEL 9.2 MG/DL (8.8-10.2); CARBON DIOXIDE LEVEL 27 MEQ/L (21-32); CHLORIDE LEVEL 100 MEQ/L (98-107); CREATININE FOR GFR 1.05 MG/DL (0.70-1.30); GLOMERULAR FILTRATION RATE > 60.0 (>49); GLUCOSE, FASTING 210 MG/DL (70-100); POTASSIUM SERUM 4.6 MEQ/L (3.5-5.1); SODIUM LEVEL 134 MEQ/L (136-145); TOTAL PROTEIN 7.4 GM/DL (6.4-8.2)
[2019-07-24 13:14] LABS: HEMOGLOBIN A1c 8.5 %
== END ==
LOC: M SFHCADAM 08:23
PROVIDERS: ATTEND Physician Assistant
DX: E11.21 Type 2 diabetes mellitus with diabetic nephropathy (principal); I48.91 Unspecified atrial fibrillation; I50.30 Unspecified diastolic (congestive) heart failure
CPT/HCPCS: 80053; 83036; 85027; G0463

== ENCOUNTER 2019-08-06 06:14 | Day surgery (SDC) | payer MEDICARE, OTHER ==
[~2019-08-06] VITALS: Ht 188 cm; Wt 86.5 kg
[~2019-08-06 06:14] MED LIST changes: -ACET1TAB16 PO; +BUPR300T34 PO; -BUPR300T92 PO; -FLUO20CA20 PO; +FLUO20CA8 PO; +LIDOCAINE 1% MDV 20ML VIAL SQ PRN
[2019-08-06] MEDS ORDERED: BUPIVACAINE HCL 0.5% 30 ML VIAL As Ordered ONE (06:55)
[2019-08-06] MEDS ORDERED: LIDOCAINE 1% SDV INJ 30 ML VIAL As Ordered ONE (06:55)
[2019-08-06] MEDS ORDERED: ceFAZolin SOD 2 GM in IV 1 EA IV ONE (07:00)
[2019-08-06] MEDS ORDERED: LR 1,000 ML IV ONE (07:00)
[2019-08-06] MEDS ORDERED: fentaNYL 100 MCG/2 ML INJECTION (J3010) As Ordered ONE (07:40)
[2019-08-06] MEDS ORDERED: LIDOCAINE 2% INJ 100 MG/5 ML SDV (FOR ANES.) As Ordered ONE (07:40)
[2019-08-06] MEDS ORDERED: MIDAZOLAM INJ 2 MG/2 ML VIAL (J2250) As Ordered ONE (07:40)
[2019-08-06] MEDS ORDERED: ONDANSETRON 4MG/2ML VIAL (J2405) As Ordered ONE (07:40)
[2019-08-06] MEDS ORDERED: PROPOFOL 200 MG/20 ML VIAL As Ordered ONE (07:40)
[2019-08-06] MEDS ORDERED: ACET1TAB16 PO (08:07)
[2019-08-06 08:30] VITALS: BP 148/73
--- NOTE | 2019-08-06 13:25 | RO ---
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 PREOPERATIVE DIAGNOSIS: Right second hammertoe and chronic ulceration. POSTOPERATIVE DIAGNOSIS: Right second hammertoe and chronic ulceration. PROCEDURE: Right second toe partial amputation. ANESTHESIA: Monitored anesthesia care (MAC), preop injection of 8 mL of 1:1 mixture of 1% lidocaine plain and 0.5% Marcaine plain. ESTIMATED BLOOD LOSS: Minimal. MATERIALS: #3-0 nylon. INJECTABLES: None. COMPLICATIONS: None. SPECIMEN: Right second toe. Eran Ring is a 69-year-old diabetic male who has rigid hammertoe deformity which has resulted in a chronic ulceration to the tip of his right second toe. He has had conservative treatments, but failed these with recurring ulcerations. The patient best served with right second toe amputation. Patient site and side were identified and marked in preop holding area. Consent was reviewed and obtained. All risks, complications and alternatives to the procedure were explained to the patient in detail. All questions were answered. PROCEDURE: Patient was brought to the operating room and placed on operating room table in supine position. Monitored anesthesia care was delivered by the anesthesia team. Preop injection of 8 mL of 1:1 mixture of 1% lidocaine plain and 0.5% Marcaine plain were injected to the right foot. The right foot was prepped and draped in a normal sterile fashion. Tourniquet was applied to the right ankle and inflated to 215 mmHg. An elliptical incision was drawn around the right second toe and carried through with a 15 blade. The toe was disarticulated at the proximal interphalangeal joint. The site was irrigated with normal saline and the incision was repaired with #3-0 nylon. Toe was sent for pathology. Tourniquet was deflated. The patient was brought to the postanesthesia care unit (PACU) with vital signs stable and neurovascular status intact. The patient will be weightbearing as tolerated and will followup in the office in two days.
== END 2019-08-06 09:00 | disposition home or self-care (01) ==
LOC: M SDC 06:14
PROVIDERS: ATTEND Podiatrist Foot & Ankle Surgery
DX: M20.41 Other hammer toe(s) (acquired), right foot (principal); L97.519 Non-pressure chronic ulcer of other part of right foot with unspecified severity; I48.91 Unspecified atrial fibrillation; I25.10 Atherosclerotic heart disease of native coronary artery without angina pectoris; I50.9 Heart failure, unspecified; I13.0 Hypertensive heart and chronic kidney disease with heart failure and stage 1 through stage 4 chronic kidney disease, or unspecified chronic kidney disease; E78.00 Pure hypercholesterolemia, unspecified; E10.621 Type 1 diabetes mellitus with foot ulcer; E10.22 Type 1 diabetes mellitus with diabetic chronic kidney disease; E10.40 Type 1 diabetes mellitus with diabetic neuropathy, unspecified; R94.31 Abnormal electrocardiogram [ECG] [EKG]; M10.9 Gout, unspecified; K21.9 Gastro-esophageal reflux disease without esophagitis; D64.9 Anemia, unspecified; M12.9 Arthropathy, unspecified; C46.9 Kaposi's sarcoma, unspecified; F41.9 Anxiety disorder, unspecified; F32.9 Major depressive disorder, single episode, unspecified; J45.909 Unspecified asthma, uncomplicated; J44.9 Chronic obstructive pulmonary disease, unspecified; N18.3 Chronic kidney disease, stage 3 (moderate); Z79.899 Other long term (current) drug therapy; Z79.82 Long term (current) use of aspirin; Z96.641 Presence of right artificial hip joint
CPT/HCPCS: 28825; 88305; J0690; J2250; J2405; J3010

== ENCOUNTER → 2019-11-04 | Outpatient (REF) | payer MEDICARE, OTHER ==
[~2019-11-04] MED LIST changes: +ACET1TAB16 PO; -BUPR300T34 PO; +BUPR300T92 PO; +FLUO20CA20 PO; -FLUO20CA8 PO; -LIDOCAINE 1% MDV 20ML VIAL SQ PRN
[2019-11-04 19:33] LABS: HEMOGLOBIN 13.7 g/dl (13.5-17.5); MEAN CORPUSCULAR HEMOGLOBIN 27.7 pg (27.0-33.0); MEAN CORPUSCULAR HGB CONC 31.9 g/dl (32.0-36.5); MEAN CORPUSCULAR VOLUME 86.9 fl (80.0-96.0); PLATELET COUNT, AUTOMATED 268 10^3/uL (150-450); RED BLOOD COUNT 4.95 10^6/uL (4.30-6.10)
[2019-11-04 20:10] LABS: ALBUMIN 4.1 GM/DL (3.2-5.2); ALT/SGPT 26 U/L (12-78); BILIRUBIN,TOTAL 0.7 MG/DL (0.2-1.0); BLOOD UREA NITROGEN 14 MG/DL (7-18); CALCIUM LEVEL 9.5 MG/DL (8.8-10.2); CARBON DIOXIDE LEVEL 27 MEQ/L (21-32); CHLORIDE LEVEL 103 MEQ/L (98-107); CHOLESTEROL LEVEL 132 MG/DL (<200); CHOLESTEROL RISK RATIO 1.833 (<5); CREATININE FOR GFR 1.03 MG/DL (0.70-1.30); FERRITIN 9 NG/ML (26-388); GLOMERULAR FILTRATION RATE > 60.0 (>49); GLUCOSE, FASTING 189 MG/DL (70-100); HDL CHOLESTEROL 72 MG/DL (>40); IRON (FE) 37 UG/DL (65-175); LDL CHOLESTEROL 46 MG/DL (<100); MAGNESIUM LEVEL 1.7 MG/DL (1.8-2.4); NON-HDL-C 60 MG/DL; PERCENT SATURATION 9.3 % (19.7-50.0); POTASSIUM SERUM 4.4 MEQ/L (3.5-5.1); SODIUM LEVEL 139 MEQ/L (136-145); TOTAL IRON BINDING CAPACITY 400 UG/DL (250-450); TOTAL PROTEIN 7.6 GM/DL (6.4-8.2); TRIGLYCERIDES LEVEL 71 MG/DL (<150)
== END ==
LOC: M SFHCADAM 15:20
PROVIDERS: ATTEND Physician Assistant
DX: E11.21 Type 2 diabetes mellitus with diabetic nephropathy (principal); N18.2 Chronic kidney disease, stage 2 (mild); I48.0 Paroxysmal atrial fibrillation; I50.30 Unspecified diastolic (congestive) heart failure
CPT/HCPCS: 80053; 80061; 82728; 83550; 83735; 84439; 84443; 85027; G0463

== ENCOUNTER → 2019-12-17 | Outpatient (REF) | payer MEDICARE, OTHER ==
[2019-12-17 15:41] LABS: PLATELET COUNT, AUTOMATED 216 10^3/uL (150-450)
[2019-12-17 15:53] LABS: INR 1.11
[2019-12-17 15:54] LABS: PARTIAL THROMBOPLASTIN TIME 34.2 SECONDS (25.0-38.4)
== END ==
LOC: M LABDRAW1 13:38
PROVIDERS: ATTEND Physician Assistant
DX: D69.1 Qualitative platelet defects (principal); Z01.812 Encounter for preprocedural laboratory examination; M47.817 Spondylosis without myelopathy or radiculopathy, lumbosacral region

== ENCOUNTER 2019-12-21 10:29 | Emergency (ER) | payer MEDICARE, OTHER ==
[2019-12-21 11:11] LABS: VENOUS BASE EXCESS -1.3 (-2.0-2.0); VENOUS HCO3 26.4 MEQ/L (23.0-27.0); VENOUS PARTIAL PRESSURE O2 31.2 mmHg (30.0-50.0); VENOUS PH 7.291 UNITS (7.330-7.430); VENOUS STANDARD HCO3 22.3 MEQ/L; VENOUS TOTAL CO2 28.1 MEQ/L (24.0-28.0)
[2019-12-21 11:16] LABS: HEMATOCRIT 45.7 % (42.0-52.0); HEMOGLOBIN 14.9 g/dl (13.5-17.5); MEAN CORPUSCULAR HEMOGLOBIN 28.9 pg (27.0-33.0); MEAN CORPUSCULAR HGB CONC 32.6 g/dl (32.0-36.5); MEAN CORPUSCULAR VOLUME 88.6 fl (80.0-96.0); PLATELET COUNT, AUTOMATED 226 10^3/uL (150-450); RED BLOOD COUNT 5.16 10^6/uL (4.30-6.10); WHITE BLOOD COUNT 6.2 10^3/uL (4.0-10.0)
[2019-12-21 11:47] LABS: ALBUMIN 4.1 GM/DL (3.2-5.2); ALT/SGPT 30 U/L (12-78); BILIRUBIN,TOTAL 0.5 MG/DL (0.2-1.0); BLOOD UREA NITROGEN 15 MG/DL (7-18); CALCIUM LEVEL 9.9 MG/DL (8.8-10.2); CARBON DIOXIDE LEVEL 30 MEQ/L (21-32); CHLORIDE LEVEL 95 MEQ/L (98-107); CREATININE FOR GFR 1.11 MG/DL (0.70-1.30); GLOMERULAR FILTRATION RATE > 60.0 (>49); GLUCOSE, FASTING 485 MG/DL (70-100); POTASSIUM SERUM 4.7 MEQ/L (3.5-5.1); SODIUM LEVEL 134 MEQ/L (136-145); TOTAL PROTEIN 7.7 GM/DL (6.4-8.2)
--- NOTE | 2019-12-21 11:47 | REP ---
RIGHT CALCANEUS: Two views of right calcaneus performed. There is no evidence of acute fracture, dislocation, or intrinsic bone disease. No radiopaque foreign body is seen in the soft tissues. Electronically Signed by Deandre Otero MD 12/21/2019 06:34 P
[2019-12-21] MEDS ORDERED: NEOSPORIN TOP OINT 15GM TOP ONE (12:33)
[2019-12-21 13:05] VITALS: BP 172/89
== END 2019-12-21 13:08 | disposition home or self-care (01) ==
LOC: M ED 10:29 → EDBD 10:29 → M ED 13:08
DX: S91.311A Laceration without foreign body, right foot, initial encounter (principal); W25.XXXA Contact with sharp glass, initial encounter; Y92.000 Kitchen of unspecified non-institutional (private) residence as the place of occurrence of the external cause; E11.40 Type 2 diabetes mellitus with diabetic neuropathy, unspecified; L98.8 Other specified disorders of the skin and subcutaneous tissue; I10 Essential (primary) hypertension; J45.909 Unspecified asthma, uncomplicated; J44.1 Chronic obstructive pulmonary disease with (acute) exacerbation; Z79.82 Long term (current) use of aspirin; Z79.4 Long term (current) use of insulin; Z79.899 Other long term (current) drug therapy

== ENCOUNTER → 2019-12-30 | Outpatient (CLI) | payer MEDICARE, OTHER ==
--- NOTE | 2019-12-30 14:14 | REP ---
Bilateral lower extremity Doppler duplex arterial ultrasound: Right lower extremity: The Brachial peak systole: 144 mmHg Dorsalis pedis peak systole : 164 mmHg CORD SPLICER peak systole: 170 mmHg ANKIT peak systole : 1.2 Velocity Phasicity FILM HISTORIAN 68.0 triphasic Profunda 54.9 triphasic SFA prox 66 point triphasic SFA mid 71.8 triphasic SFA dist 63.5 triphasic Pop 55.0 triphasic FLAVIA prox 70.4 triphasic Tib/P tr 61.1 triphasic CORD SPLICER pr 41.6 biphasic FLAVIA dst 62.5 triphasic Left lower extremity: The Brachial peak systole: 140 mmHg Dorsalis pedis peak systole : 152 mmHg CORD SPLICER peak systole: 150 mmHg ANKIT peak systole : 1.1 Velocity Phasicity FILM HISTORIAN 71.2 triphasic Profunda 48.3 triphasic SFA prox 60.4 triphasic SFA mid 61.8 triphasic SFA dist 75.0 triphasic Pop 60.8 triphasic FLAVIA prox 71.4 triphasic Tib/P tr 55.4 triphasic CORD SPLICER pr 58.9 triphasic CORD SPLICER dst 63.8 triphasic FLAVIA dst 52.1 triphasic Impression: There is mild atheromatous plaque bilaterally. No stenoses are identified on the right on the left. Electronically Signed by Deandre Matute MD 12/30/2019 02:06 P
== END ==
LOC: M RAD 12:16
PROVIDERS: ATTEND Podiatrist Foot & Ankle Surgery
DX: I73.9 Peripheral vascular disease, unspecified (principal); E11.51 Type 2 diabetes mellitus with diabetic peripheral angiopathy without gangrene

== ENCOUNTER 2020-01-28 18:51 | Inpatient (IN) | payer MEDICARE, OTHER ==
[~2020-01-28] VITALS: Ht 177.8 cm; Wt 75.9 kg
[2020-01-28] MEDS ORDERED: CICL0.7739 (19:08)
[2020-01-28] MEDS ORDERED: LINE1TAB6 (19:08)
[2020-01-28] MEDS ORDERED: ESOM40CA35 (19:08)
[2020-01-28] MEDS ORDERED: NS 1,000 ML IV SCH (19:14)
--- NOTE | 2020-01-28 19:21 | REPVR ---
PROCEDURE INFORMATION: Exam: CT Head Without Contrast Exam date and time: 01/28/2020 7:03 PM Age: 69 years old Clinical indication: Pain; Headache; Additional info: Fall blood thinners TECHNIQUE: Imaging protocol: Computed tomography of the head without contrast. Radiation optimization: All CT scans at this facility use at least one of these dose optimization techniques: automated exposure control; mA and/or kV adjustment per patient size (includes targeted exams where dose is matched to clinical indication); or iterative reconstruction. COMPARISON: CT Head without contrast 04/11/2018 12:16 PM FINDINGS: Brain: There is no acute cortical infarction, intracranial hemorrhage or mass.There is mild diffuse heterogeneity of the white matter attenuation, consistent with chronic white matter ischemic changes. Ventricles: The ventricles appear enlarged, but not out of proportion to the degree of parenchymal volume loss. Bones/joints: There has been repair of the left orbital floor. Sinuses: Paranasal sinuses are clear. Mastoid air cells: Middle ear cavities and mastoid air cells are clear. Soft tissues: Unremarkable. IMPRESSION: No acute intracranial findings. Electronically signed by: Marilee Cevallos On 01/28/2020 19:20:42 PM
--- NOTE | 2020-01-28 19:24 | REPVR ---
PROCEDURE INFORMATION: Exam: CT Cervical Spine Without Contrast Exam date and time: 01/28/2020 7:03 PM Age: 69 years old Clinical indication: Neck pain; Additional info: Fall blood thinners TECHNIQUE: Imaging protocol: Computed tomography images of the cervical spine without contrast. Radiation optimization: All CT scans at this facility use at least one of these dose optimization techniques: automated exposure control; mA and/or kV adjustment per patient size (includes targeted exams where dose is matched to clinical indication); or iterative reconstruction. COMPARISON: CT Spine,cervical w/o contrast 04/11/2018 12:16 PM FINDINGS: Vertebrae: No acute fracture. Normal alignment. Diffuse degeneration of the uncovertebral and facet joints. C2-C3: No spinal canal stenosis. No neural foraminal narrowing. C3-C4: No spinal canal stenosis. Moderate to severe left neural foraminal narrowing. C4-C5: No spinal canal stenosis. Moderate bilateral neural foraminal narrowing. C5-C6: No spinal canal stenosis. No neural foraminal narrowing. C6-C7: No No spinal canal stenosis. No neural foraminal narrowing. C7-T1: No spinal canal stenosis. No neural foraminal narrowing. Soft tissues: Unremarkable. Lungs: Lung apices are unremarkable. IMPRESSION: No acute fracture or dislocation in the cervical spine. Electronically signed by: Marilee Cevallos On 01/28/2020 19:24:24 PM
[2020-01-28 19:47] LABS: BASO # 0.1 10^3/uL (0.0-0.2); BASO % 0.3 % (0.0-1.0); HEMATOCRIT 43.5 % (42.0-52.0); HEMOGLOBIN 14.2 g/dl (13.5-17.5); LYMPH # 2.4 10^3/uL (1.5-5.0); LYMPH % 13.2 % (24.0-44.0); MEAN CORPUSCULAR HEMOGLOBIN 29.8 pg (27.0-33.0); MEAN CORPUSCULAR HGB CONC 32.6 g/dl (32.0-36.5); MEAN CORPUSCULAR VOLUME 91.2 fl (80.0-96.0); MONO % 5.3 % (0.0-5.0); NEUTROPHILS # 14.5 10^3/uL (1.5-8.5); NEUTROPHILS % 80.3 % (36.0-66.0); PLATELET COUNT, AUTOMATED 236 10^3/uL (150-450); RED BLOOD COUNT 4.77 10^6/uL (4.30-6.10)
[2020-01-28] MEDS ORDERED: NS 1,000 ML IV ONE (21:00)
[2020-01-28 21:02] LABS: ACETAMINOPHEN LEVEL < 2.0 UG/ML (10.0-30.0); ALBUMIN 3.8 GM/DL (3.2-5.2); ALT/SGPT 26 U/L (12-78); BILIRUBIN,DIRECT 0.2 MG/DL (0.0-0.2); BILIRUBIN,TOTAL 0.7 MG/DL (0.2-1.0); BLOOD UREA NITROGEN 30 MG/DL (7-18); CALCIUM LEVEL 9.3 MG/DL (8.8-10.2); CARBON DIOXIDE LEVEL 11 MEQ/L (21-32); CHLORIDE LEVEL 88 MEQ/L (98-107); CK-MB VALUE MASS 6.9 NG/ML (<3.6); CPK CREATINE PHOSPHOKINASE 94 U/L (39-308); CREATININE FOR GFR 1.54 MG/DL (0.70-1.30); ETHYL ALCOHOL (ETHANOL) < 0.003 % (0.000-0.010); GLOMERULAR FILTRATION RATE 47.9 (>49); GLUCOSE, FASTING 569 MG/DL (70-100); MB/CK RELATIVE INDEX 7.34 (< OR =4); POTASSIUM SERUM 6.5 MEQ/L (3.5-5.1); SALICYLATE LEVEL 4.3 MG/DL (5.0-30.0); SODIUM LEVEL 126 MEQ/L (136-145); TROPONIN I < 0.02 NG/ML (< 0.10)
[2020-01-28] MEDS ORDERED: HumuLIN R (REGULAR) INSULIN (NovoLIN R) **100U/ML** PER UNIT IV ONE (21:30)
[2020-01-28] MEDS ORDERED: INSULIN HUMAN REGULAR 100 UNITS in NS 99 ML IV SCH (21:50)
[2020-01-28] MEDS ORDERED: MEROPENEM INJ 1 GM in IV 1 EA IV SCH (22:00)
[2020-01-28] MEDS: MEROPENEM INJ 1 GM in IV 1 EA IV SCH (22:32)
[2020-01-28] MEDS ORDERED: FAMO40TA3 PO (22:47)
[2020-01-28] MEDS ORDERED: CICL0.7739 TOP (22:47)
[2020-01-28] MEDS ORDERED: METO1TAB7 PO (22:47)
[2020-01-28] MEDS ORDERED: LINE1TAB PO (22:47)
[2020-01-28] MEDS ORDERED: ESOM1CAP5 PO (22:47)
[2020-01-28] MEDS ORDERED: AMMO12CR7 TOP (22:47)
--- NOTE | 2020-01-28 22:51 | HPEPDOC ---
[facility] Medical History & Physical Date of Admission Jan 28, 2020 Date of Service: Jan 28, 2020 Primary Care Physician: BARBARA PARRY PA-C Attending Physician: MERLIN LLANOS MD History and Physical TIME OF SERVICE: 9:30 PM CHIEF COMPLAINT: Confusion HISTORY OF PRESENT ILLNESS: The patient was a poor historian. The majority of the history was obtained by chart review and per discussion with ER staff. This 69-year-old male was brought in by EMS after having a fall. He has a history of frequent falls, which have been attributed to hypoglycemia in the past. At the time of my evaluation, the patient reported come to the hospital because he's concerned about his toes being discolored. REVIEW OF SYSTEMS: Limited by patient's confusion PAST MEDICAL/ SURGICAL HISTORY: IDDM with neuropathy Chronic HTN/chronic diastolic CHF History of alcoholic cardiomyopathy , resolved after he quit drinking alcohol Group 2 vs Group 3 pulmonary hypertension Non-rheumatic mild Aortic valve sclerosis Non-rheumatic Mild Mitral annular calcification with insufficiency Proximal atrial fibrillation Dyslipidemia COPD secondary to tobacco abuse Depression CKD 2 Chronic pain secondary to DJD affecting the lumbar and cervical spine ED History of Alcoholic hepatitis and pancreatitis Gouty arthritis Debility/ ambulates with a cane Hernia repair Right hip hemiarthroplasty Resection of colonic polyps Hemorrhoidectomy PCI with normal coronary arteries Resection of squamous cell cancer on his chest Tonsillectomy Myringotomy SOCIAL HISTORY: Former smoker Quit drinking FAMILY HISTORY: Father as a result of aneurysm Others in her 90s and still alive ALLERGIES: Please see below. HOME MEDICATIONS: Please see below. PHYSICAL EXAMINATION: Vital Signs Date Time Temp Pulse Resp B/P (MAP) Pulse Ox O2 Delivery O2 Flow Rate FiO2 01/28/20 19:21 108 19 100 Room Air 01/28/20 19:56 188/79 (115) 01/28/20 21:24 98.4 GEN: well-nourished / well developed/ NAD INTEGUMENT: The skin surrounding multiple toes is red, swollen & cool to touch. He also has multiple round black lesions on his toes / The skin surrounding the perineum and penis is red / capillary refill <3 sec / hands and feet cold HEENT: NCAT CVS: RRR/NMRG/radial pulses intact / no lower extremity edema LUNGS: able to speak full sentences without stopping to take a breath / no coughing / lungs are clear to auscultation bilaterally on room air ABDOMEN: Contour (flat) NEURO: CN 2-12 are grossly intact / speech is not dysarthric PSYCH: alert / speech is tangential LABORATORY DATA: Bedside Glucose (Misc Panel) 569*H Immature Granulocyte % (Auto) 0.9, Neutrophils (%) (Auto) 80.3H, Lymphocytes (%) (Auto) 13.2L, Monocytes (%) (Auto) 5.3H, Eosinophils (%) (Auto) 0.0, Basophils (%) (Auto) 0.3, Neutrophils # (Auto) 14.5H, Lymphocytes # (Auto) 2.4, Monocytes # (Auto) 1.0H, Eosinophils # (Auto) 0.0, Basophils # (Auto) 0.1, Nucleated Red Blood Cells % (auto) 0.0, Urine Color STRAW, Urine Appearance HAZY, Urine pH 5.0, Urine Specific [place] 1.022, Urine Protein 1+H, Urine Glucose (UA) 3+H, Urine Ketones 2+H, Urine Blood 1+H, Urine Nitrite NEGATIVE, Urine Bilirubin NEGATIVE, Urine Urobilinogen 0.2, Urine Leukocyte Esterase NEGATIVE, Urine WBC (Auto) 6H, Urine RBC (Auto) 3, Urine Hyaline Casts (Auto) 0, Urine Bacteria (Auto) NEGATIVE, Urine Squamous Epithelial Cells 0, Urine Sperm (Auto) , Anion Gap 27H, Glomerular Filtration Rate 47.9L, Calcium Level 9.3, Total Bilirubin 0.7, Direct Bilirubin 0.2, Aspartate Amino Transf (AST/SGOT) 23, Alanine Aminotransferase (ALT/SGPT) 26, Alkaline Phosphatase 134H, Total Creatine Kinase 94, Creatine Kinase MB 6.9H, Creatine Kinase MB Relative Index 7.34H, Troponin I < 0.02, Total Protein 8.0, Albumin 3.8, Albumin/Globulin Ratio 0.90L, Thyroid Stimulating Hormone (TSH) 3.260, Salicylates Level 4.3L, Acetaminophen Level < 2.0L, Ethyl Alcohol Level < 0.003 POC Glucose (Misc Panel) 575*H, POC Sodium (Misc Panel) 121L, POC Potassium (M isc Panel) 8.7*H, POC Chloride (Misc Panel) 96L, POC Total CO2 (Misc Panel) 11.0L, POC Blood Urea Nitrogen (Misc Panel 42H, POC Ionized Calcium (Misc Panel) 4.3L, POC Creatinine (Misc Panel) 1.1, POC Hematocrit (Misc Panel) 47.0 IMAGING: CT head "IMPRESSION: No acute intracranial findings. " CT cervical spine "IMPRESSION: No acute fracture or dislocation in the cervical spine. Chest x-ray based on personal visualizations, shows no acute findings; the ribs are flattened, which is consistent with his diagnosis of COPD,the final read is pending MICROBIOLOGY: Please see below. ASSESSMENT: Mr. Ring is a 59-year-old with a history of IDDM, neuropathy, chronic HTN, chronic diastolic CHF, pulmonary hypertension, paroxysmal atrial fibrillation, dyslipidemia, COPD, depression, CKD 2, gouty arthritis, and DJD who is admitted for management of metabolic encephalopathy, DKA, sepsis possibly due to infected toes, and ZAFAR. PLAN: 1. Metabolic Encephalopathy May be due to: hyperglycemia and or Infection Plan: admit to ICU / neurochecks / sitter / treat DKA / if his mental status doesn't improve after the DKA has resolved the day time team may consider ordering B12, B1, ammonia and MRI of the brain 2. DKA He has IDDM w neuropathy Diagnostic criteria for DKA: gluc >250 + bicarbonate <18 + urine ketones + AG >12 + BHB Trigger likely: infection vs noncompliance His labs also show pseudohyponatremia with corrected Na of 135 Plan: NPO / Insulin drip per protocol/ IVF / f/u blood cx / f/u accuchecks Q1H, BMP Q4H, venous PH Q4H, osmol Q4H, Mag Q4H, phosp Q4H / f/u A1C / hold home anti-glycemic agents pending resolution of DKA / when glucose reaches 200 will switch to D5-0.45% to avoid hypogycemia / when serum glucose is <200 + the patient is able to eat, and two of the following are met: AG <12 and/or bicarbonate >15 and/or pH >7.30 will order long acting insulin and terrance of insulin drip for 2 hours / the DM education when DKA and AMS have resolved 3. Sepsis vs SIRS Possibly 2/2 gangreen of the toes ? vs othter cause TBD SIRS criteria include HR >90 / WBC >12 Lactic acid >2 QSOFA Score = 1 = not high risk Plan: telemetry / Sepsis protocol w repeat lactic acid & VGB / Vanc & Meropenum per sepsis order set / IVF / f/u blood cx / Acetaminophen PRN for f ever / target MAP 65 to 70 / f/u Is and Os with target UOP of atleast 0.5 ml/kg/H / target serum glucose 140-180 while acutely ill 4. Suspected Wet Gangreen of the Toes Plan: consulted to help confirm the diagnosis and determine if he also needs a Vascular Surgery consult / abx as above 5. Acute Renal Failure on CKD 2 Likely pre-renal 2/2 dehyration vs AIN Baseline Cr 1.11 Plan: Is/Os / IVF / f/u uric acid, ulytes for FENa or FEUrea / renal US 6. Hyperkalemia May be due to hemolysis or decreased renal excretion Plan: f/u repeat K 7. Mechanical Fall Cause is unclear at this time. Suspect it may be due to neuropathy ? At his baseline the patient has walks with a cane CT of the head and cervical spine were unremarkable Plan: Neuro checks/fall precautions/physical therapy consult 8. Rash/Perineal redness - Zinc cream 9. First degree AV block - no acute intervention 10. Chronic HTN/chronic diastolic CHF - the patient was not able to confirm his meds, in the morning Pharmacy will call his to confirm his meds will ask day time team to resume them tomorrow 11. Proximal atrial fibrillation -Pradaxa 12. Dyslipidemia -resume meds in AM 13. COPD secondary to tobacco abuse -albuterol PRN & resume other meds in AM 14. Depression - resume meds in AM 15. Chronic pain secondary to DJD affecting the lumbar and cervical spine - resume meds in AM 16. Gouty arthritis - resume meds in AM DVT PROPHYLAXIS: SCDs pending confirmation he is still on Pradaxa DISPOSITION: home after more than 2 midnight's stay Home Medications Scheduled Allopurinol (Allopurinol) 100 Mg Tab, 100 MG PO Q2D Ammonium Lactate (Ammonium Lactate) 12% Cream..g., 1 DOSE TOP DAILY APPLY TO FEET Aspirin (Aspir 81) 81 Mg Tab, 81 MG PO DAILY Budesonide/Formoterol (Symbicort 80-4.5 Mcg Inhaler) 60 Puff/Inhaler Aers, 2 PUFF INH BID Bupropion HCl (Bupropion Xl) 300 Mg Tab, 300 MG PO DAILY Cholecalciferol (Vitamin D3) (Vitamin D3) 2,000 Unit Cap, 1,000 UNIT PO DAILY Ciclopirox Olamine (Ciclopirox) 15 Gm Cream..g., 1 DOSE TOP TID Cyanocobalamin (Vitamin B-12) (Vitamin B-12) 1,000 Mcg Tab, 1,000 MCG PO DAILY Dabigatran Etexilate Mesylate (Pradaxa) 150 Mg Capsule, 150 MG PO BID Esomeprazole Magnesium (Esomeprazole Magnesium) 40 Mg Capsule.dr, 40 MG PO DAILY Famotidine (Famotidine) 40 Mg Tablet, 40 MG PO DAILY Fluoxetine Hcl (Fluoxetine HCl) 20 Mg Cap, 20 MG PO DAILY Folic Acid (Folic Acid) Unknown Strength Tab, 800 MCG PO DAILY Gluc Coombs/Chondro Coombs A/Vit C/Mn (Glucosamine-Chondroitin Cap) 1 Cap Cap, 1 CAP PO BID Insulin Degludec (Tresiba Flextouch U-100) 100 Unit/Ml Inj, 18 UNIT SC DAILY Insulin Human Lispro (Humalog) 1 Units/0.01 Ml Inj, 1 DOSE SC ACHS PER SLIDING SCALE Linezolid (Linezolid) 600 Mg Tablet, 600 MG PO BID Lisinopril (Lisinopril) 20 Mg Tab, 20 MG PO DAILY Magnesium Oxide (Magnesium) 400 Mg Cap, 400 MG PO TID Metoprolol Succinate (Metoprolol Succinate) 50 Mg Tab.er.24h, 50 MG PO BID Milk Thistle Seed Extract (Milk Thistle) 200 Mg Capsule, 200 MG PO DAILY Mometasone Furoate (Mometasone Furoate) 50 Mcg/Act Spr, 2 PUFF NA DAILY Multivitamin (Multivitamins) 1 Each Capsule, 1 CAP PO DAILY Pravastatin Sodium (Pravachol) 20 Mg Tab, 20 MG PO DAILY Sildenafil Citrate (Viagra) 100 Mg Tab, 100 MG PO PRN Allergies Coded Allergies: No Known Allergies (Verified , 01/01/19) A-FIB/CHADSVASC A-FIB History Current/History of A-Fib/PAF?: Yes Current PO Anticoag Therapy: No Treatment Reason Anticoagulant not given: Other (pending contacting to confirm meds/ patient is to confused to confirm meds) Other reason anticoagulant not: on hold pending d/w his MERLIN LLANOS MD Jan 28, 2020 22:51
--- NOTE | 2020-01-28 23:12 | REPVR ---
PROCEDURE INFORMATION: Exam: US Retroperitoneal Limited, Kidneys Exam date and time: 01/28/2020 10:46 PM Age: 69 years old Clinical indication: Condition or disease; Kidney or ureter condition; Acute renal insufficiency; Additional info: Ady TECHNIQUE: Imaging protocol: Real-time ultrasound of the retroperitoneum with image documentation. Examination was focused on the kidneys. COMPARISON: RENAL US 03/26/2018 9:22 AM FINDINGS: Right kidney: Right kidney measures 10.1 cm in length. There is prominence of the renal sinus fat. There is no hydronephrosis. Blood flow is detected. Left kidney: Left kidney measures 10.9 cm in length. There is prominence of the renal sinus fat. Blood flow is detected. There is a probable cyst in the upper pole measuring 1.8 cm. There is an echogenic probable stone measuring 7.8 and a 2nd measuring 7.6 mm. These are seen in the mid kidney. Bladder: A Springer catheter is seen in the urinary bladder. The bladder is decompressed. IMPRESSION: 1. There is no evidence of hydronephrosis. There is bilateral prominence of the renal sinus fat with mild cortical thinning. The echogenicity of the renal cortex is within normal limits. 2. Two echogenic foci are seen in the left kidney which may represent renal calculi which measure 7.6 and 7.8 mm respectively. Atherosclerotic calcification is also apparent. 3. Findings are relatively similar to the prior ultrasound. Electronically signed by: Marilee Cevallos On 01/28/2020 23:12:13 PM
[2020-01-28 23:41] VITALS: BP 158/83
[2020-01-28 23:45] VITALS: BP 159/86
[2020-01-28 23:46] LABS: VENOUS BASE EXCESS -18.5 (-2.0-2.0); VENOUS HCO3 9.7 MEQ/L (23.0-27.0); VENOUS O2 SATURATION 77.6 % (60.0-80.0); VENOUS PARTIAL PRESSURE CO2 31.1 mmHg (38.0-50.0); VENOUS PARTIAL PRESSURE O2 46.8 mmHg (30.0-50.0); VENOUS PH 7.114 UNITS (7.330-7.430); VENOUS STANDARD HCO3 10.8 MEQ/L; VENOUS TOTAL CO2 10.7 MEQ/L (24.0-28.0)
[2020-01-28 23:50] VITALS: BP 152/73
[2020-01-28 23:55] VITALS: BP 155/80
[2020-01-28 23:55] LABS: HEMOGLOBIN A1c 12.8 %
[2020-01-28] MEDS: INSULIN IV RATE CHANGE DOCUMENTATION ML/HR XX SCH (23:57)
[2020-01-29] VITALS (13 sets, daily range): BP systolic 123–171; BP diastolic 65–91
[2020-01-29] MEDS ORDERED: VANCOMYCIN HCL 1,000 MG, VIAL MATE ADAPTER 1 EACH in D5W 250 ML IV SCH ×3
[2020-01-29] MEDS ORDERED: VANCOMYCIN HCL 1,000 MG, VIAL MATE ADAPTER 1 EACH in D5W 250 ML IV ONE ×3
[2020-01-29 00:04] LABS: OSMOLALITY SERUM 313 MOSM/KG (280-301)
[2020-01-29 00:08] LABS: ACETONE/KETONE > 46.00 MG/DL (<2.81); MAGNESIUM LEVEL 2.1 MG/DL (1.8-2.4); POTASSIUM SERUM 4.3 MEQ/L (3.5-5.1); URIC ACID 9.9 MG/DL (3.5-7.2)
[2020-01-29 00:13] LABS: CALCIUM LEVEL 9.1 MG/DL (8.8-10.2); CREATININE FOR GFR 1.44 MG/DL (0.70-1.30); GLOMERULAR FILTRATION RATE 51.8 (>49); POTASSIUM SERUM 5.2 MEQ/L (3.5-5.1)
[2020-01-29] MEDS: NS 0.45% 1,000 ML IV SCH ×2 (00:30→01:50)
[2020-01-29] MEDS: ZINC OXIDE 30.6% CREAM 92GM TUBE (SECURA EPC) TOP SCH ×3 (00:30→21:16)
[2020-01-29 00:46] LABS: CREATININE,RANDOM URINE 29.3 MG/DL; POTASSIUM RANDOM URINE 27.4 MEQ/L; TOTAL PROTEIN,RANDOM URINE 67.5 MG/DL (0.0-12.0)
[2020-01-29] MEDS: INSULIN IV RATE CHANGE DOCUMENTATION ML/HR XX SCH ×5 (01:12→06:07)
[2020-01-29] MEDS: VANCOMYCIN HCL 1,000 MG, VIAL MATE ADAPTER 1 EACH in D5W 250 ML IV SCH ×2 (02:21→13:48)
[2020-01-29] MEDS ORDERED: D5W/0.45% SODIUM CHLORIDE 1,000 ML IV SCH (03:15)
[2020-01-29 04:00] LABS: VENOUS BASE EXCESS -11.1 (-2.0-2.0); VENOUS HCO3 14.4 MEQ/L (23.0-27.0); VENOUS O2 SATURATION 75.6 % (60.0-80.0); VENOUS PARTIAL PRESSURE CO2 31.1 mmHg (38.0-50.0); VENOUS PARTIAL PRESSURE O2 42.6 mmHg (30.0-50.0); VENOUS PH 7.282 UNITS (7.330-7.430); VENOUS STANDARD HCO3 15.4 MEQ/L; VENOUS TOTAL CO2 15.3 MEQ/L (24.0-28.0)
[2020-01-29 04:33] LABS: CALCIUM LEVEL 9.2 MG/DL (8.8-10.2); CREATININE FOR GFR 1.31 MG/DL (0.70-1.30); GLOMERULAR FILTRATION RATE 57.8 (>49); POTASSIUM SERUM 4.2 MEQ/L (3.5-5.1)
[2020-01-29] MEDS ORDERED: DEXTROSE 50% 50 ML SYRINGE IV PRN (05:15)
[2020-01-29] MEDS ORDERED: GLUCOSE 4 GM CHEW TABLET PO PRN (05:15)
[2020-01-29] MEDS ORDERED: GLUCAGON FOR INJ 1 MG VIAL (J1610) SC PRN (05:15)
[2020-01-29] MEDS ORDERED: LEVEMIR (INSULIN DETEMIR) 1 UNITS/0.01ML SC SCH ×2 (05:44→21:00)
--- NOTE | 2020-01-29 05:44 | ECGEPIP ---
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
[2020-01-29] MEDS: HumaLOG INSULIN (NovoLOG) PER UNIT SC SCH ×4 (07:49→21:16)
[2020-01-29 08:12] LABS: BASO % 0.2 % (0.0-1.0); EOS % 0.1 % (0.0-3.0); HEMATOCRIT 37.7 % (42.0-52.0); HEMOGLOBIN 12.8 g/dl (13.5-17.5); LYMPH # 1.4 10^3/uL (1.5-5.0); MEAN CORPUSCULAR HEMOGLOBIN 29.4 pg (27.0-33.0); MEAN CORPUSCULAR VOLUME 86.7 fl (80.0-96.0); MONO # 1.1 10^3/uL (0.0-0.8); MONO % 8.9 % (0.0-5.0); NEUTROPHILS # 9.9 10^3/uL (1.5-8.5); NEUTROPHILS % 79.4 % (36.0-66.0); PLATELET COUNT, AUTOMATED 153 10^3/uL (150-450); RED BLOOD COUNT 4.35 10^6/uL (4.30-6.10); WHITE BLOOD COUNT 12.4 10^3/uL (4.0-10.0)
--- NOTE | 2020-01-29 08:21 | REP ---
Portable chest x-ray: Single view. History: Altered mental status. Comparison chest x-ray: November 06, 2018. Findings: Monitoring electrodes are seen. The lungs are well inflated. Pleural angles are sharp. Old healed rib fractures are noted bilaterally. Heart size is normal. Pulmonary vasculature is not increased. No infiltrate is seen. Impression: No active cardiopulmonary disease. Electronically Signed by Matthew Joseph MD 01/29/2020 08:12 A
[2020-01-29] MEDS ORDERED: VITAD1000T PO (08:35)
[2020-01-29] MEDS ORDERED: FOLI0.4T PO (08:35)
[2020-01-29] MEDS ORDERED: PATIENT COMMENT (08:36)
[2020-01-29 08:39] LABS: BLOOD UREA NITROGEN 24 MG/DL (7-18); CALCIUM LEVEL 8.7 MG/DL (8.8-10.2); CARBON DIOXIDE LEVEL 22 MEQ/L (21-32); CHLORIDE LEVEL 100 MEQ/L (98-107); CREATININE FOR GFR 1.23 MG/DL (0.70-1.30); GLOMERULAR FILTRATION RATE > 60.0 (>49); GLUCOSE, FASTING 315 MG/DL (70-100); MAGNESIUM LEVEL 1.9 MG/DL (1.8-2.4); PHOSPHORUS LEVEL 1.3 MG/DL (2.5-4.9); SODIUM LEVEL 134 MEQ/L (136-145)
[2020-01-29] MEDS: MAGNESIUM OXIDE 400 MG TAB (MAG-OX) PO SCH ×3 (09:00→21:14)
[2020-01-29] MEDS: SYMBICORT 80/4.5MCG INHALER 6GM INH SCH ×2 (09:00→21:00)
[2020-01-29] MEDS: DABIGATRAN ETEXILATE 75 MG CAP (PRADAXA) PO SCH ×2 (09:00→21:17)
[2020-01-29] MEDS: FAMOTIDINE 20 MG TAB PO SCH ×2 (10:02→12:48)
[2020-01-29] MEDS: PANTOPRAZOLE 40MG TAB (PROTONIX) PO SCH ×2 (10:02→10:14)
[2020-01-29] MEDS ORDERED: LORazepam 2 MG/ML VIAL (J2060) IV PRN (11:00)
[2020-01-29] MEDS ORDERED: LORazepam 2 MG TAB PO PRN (11:00)
[2020-01-29 11:33] LABS: VENOUS BASE EXCESS -5.6 (-2.0-2.0); VENOUS HCO3 19.9 MEQ/L (23.0-27.0); VENOUS O2 SATURATION 96.4 % (60.0-80.0); VENOUS PARTIAL PRESSURE O2 88.3 mmHg (30.0-50.0); VENOUS PH 7.325 UNITS (7.330-7.430); VENOUS STANDARD HCO3 19.8 MEQ/L; VENOUS TOTAL CO2 21.1 MEQ/L (24.0-28.0)
[2020-01-29 11:58] LABS: BLOOD UREA NITROGEN 22 MG/DL (7-18); CALCIUM LEVEL 8.9 MG/DL (8.8-10.2); CARBON DIOXIDE LEVEL 22 MEQ/L (21-32); CHLORIDE LEVEL 101 MEQ/L (98-107); CREATININE FOR GFR 1.21 MG/DL (0.70-1.30); GLOMERULAR FILTRATION RATE > 60.0 (>49); GLUCOSE, FASTING 272 MG/DL (70-100); SODIUM LEVEL 133 MEQ/L (136-145)
--- NOTE | 2020-01-29 12:13 | CR ---
DATE OF CONSULTATION: 01/29/2020 REASON FOR CONSULTATION: Foot ulceration and infection. Eran Ring is a patient well known to me who has been following for numerous ulcerations to his toes over the last few months. He has most recently been treated for his left foot. He had an ulceration and infection and was treated with a flexor tenotomy to his third toe. He had been recently treated with linezolid with some improvement. However, on last visit, his wounds were severely macerated as he had left his dressings on too long. When seen today, he was confused. He was unable to provide any history as to why he was here, but it appears that his toes have worsened on his right foot. PAST MEDICAL HISTORY: Significant for diabetes with neuropathy, chronic hypertension, diastolic congestive heart failure, pulmonary hypertension, aortic valve sclerosis, atrial fibrillation, hyperlipidemia, chronic obstructive pulmonary disease (COPD), depression, chronic kidney disease Stage 2, history or alcoholic hepatitis, history of gout. SURGICAL HISTORY: Includes right hip hemiarthroplasty, resection of colonic polyps, hemorrhoidectomy, percutaneous coronary intervention (PCI), removal of squamous cell, tonsillectomy, myringotomy. SOCIAL HISTORY: Former smoker. Former alcohol. REVIEW OF SYSTEMS: Unobtainable. ALLERGIES: No known drug allergies. LOWER EXTREMITY EXAMINATION: Pedal pulses are palpable on both feet with today there is good capillary refill. On the left foot, there is no erythema or drainage. The wounds actually are significantly improved from the last visit. There remains some mild maceration between the toes on the left. On the right foot, on the third toe, there is an ulceration with purulence at the distal aspect of the third toe with some erythema and edema to this digit. LABS: Reviewed. White blood cell count on admission was 18, today is 12.4. Lactic acid on admission was 2.1. Wound culture was performed, this is pending. ASSESSMENT: 69-year-old, diabetic male with right foot third infection. PLAN: Anwound culture was taken of the purulent drainage. Excisional subcutaneous debridement was performed of the third toe ulceration with #11 blade including nonviable subcutaneous tissue and skin. The patient had recent arterial studies which had triphasic flow throughout and on today's exam he has good palpable pulses to both the dorsalis pedis and posterior tibial on both feet. He has had some changes to his toes which suggest peripheral vascular disease, but on today's examination he does not have signs for it, so I do not believe vascular interventions or consultation is necessary today. Will start wound care. He has been started on empiric antibiotics. Await culture results. May perform a flexor tenotomy at bedside once patient is more lucid to consent for procedure to help ulceration. Will follow. REMBERTO
[2020-01-29] MEDS: MULTIVITAMINS/MINERALS THERAP 1 TAB PO SCH (12:47)
[2020-01-29] MEDS: K-PHOS ORIGINAL (POT.ACID PHOSPHATE) 500MG TAB PO SCH ×2 (12:47→21:14)
[2020-01-29] MEDS: VITAMIN D 1,000 INTERNATIONAL UNITS TABLET PO SCH (12:47)
[2020-01-29] MEDS: PRAVASTATIN 20 MG TAB PO SCH (12:48)
[2020-01-29] MEDS: buPROPion **XL** TABLET 150MG (WELLBUTRIN XL) PO SCH (12:48)
[2020-01-29] MEDS: THIAMINE 100 MG TAB PO SCH ×2 (12:48→21:14)
[2020-01-29] MEDS: CYANOCOBALAMIN 500 MCG TAB PO SCH (12:48)
[2020-01-29] MEDS: FLUoxetine 20 MG CAP PO SCH (12:48)
[2020-01-29] MEDS: FOLIC ACID 1 MG TAB PO SCH (12:48)
[2020-01-29] MEDS: METOPROLOL SUCC (TopROL XL) 50MG **XL** TAB PO SCH ×2 (12:49→21:14)
[2020-01-29] MEDS: MEROPENEM INJ 1 GM in IV 1 EA IV SCH (12:50)
[2020-01-29] MEDS: MUPIROCIN 2% OINT 22 GM TUBE TOP SCH (13:11)
--- NOTE | 2020-01-29 18:25 | IPNPDOC ---
Text Note Date of Service The patient was seen on 01/29/20. NOTE Subjective: Patient is not very cooperative, refusing meds, becoming easily ag itated, speech is tangential, paranoid, talking about people recording him and trying to persecute him. Says we are trying to implicate him. Looks at the computer screen and says someone is watching him. Hanging on to his cane would not let it go. Physical EXAM: Vitals: As below GEN: well-nourished / well developed/ NAD INTEGUMENT: dry peeling skin around the roes and ball of feet on the left, bridges mmer toes and overlap of toes, right third toe with infection and discharge of pus. HEENT: NCAT CVS: RRR/NMRG/radial pulses intact / no lower extremity edema LUNGS: able to speak full sentences without stopping to take a breath / no coughing / lungs are clear to auscultation bilaterally on room air ABDOMEN: Contour (flat) NEURO: CN 2-12 are grossly intact / speech is not dysarthric PSYCH: alert / speech is tangential Labs and radiology: reviewed Assessment and plan: This 69-year-old male With PMH of bipolar disorder, alcohol abuse, IDDM, neuropathy, chronic HTN, chronic diastolic CHF, pulmonary hypertension, paroxysmal atrial fibrillation, dyslipidemia, COPD, depression, CKD 2, gouty arthritis, and DJD was brought in by EMS after having a fall and confusion. He has a history of frequent falls, which have been attributed to hypoglycemia in the past. At the time of my evaluation, the patient reported come to the hospital because he's concerned about his toes being discolored. He was confused, easily distracted. He was admitted for acute metabolic encephalopathy, DKA, sepsis possibly due to infected toes, and ZAFAR. Metabolic Encephalopathy ? alcohol withdrawal/ psych problem or Infection continues to be agitated, confused, refusing meds. Unsure if he was taking his meds at home or not. His A1c > 12. continue sitter. CIWA protocol. DKA resolved. He has IDDM w neuropathy will started on levemir and lispro carb consistent diet. Sepsis due to infected third toe seen by Dr Abbott, on moe and vancomycin will deescalate to ceftriaxone and vanco. I and D was done at bedside H/o alcohol abuse with alcoholic cardiomyopathy resolved after quitting alcohol. possibly drinking again ?Alcohol withdrawal start CIWA protocol. Acute Renal Failure on CKD 2 now resolved. Mechanical Fall Cause is unclear at this time. Suspect it may be due to neuropathy ? At his baseline the patient has walks with a cane CT of the head and cervical spine were unremarkable PT/OT Rash/Perineal redness - Zinc cream Chronic HTN/chronic diastolic CHF metoprolol will hold lisinopril for now. Paroxysmal atrial fibrillation Continue metoprolol and Pradaxa Dyslipidemia statin COPD secondary to tobacco abuse symbicort albuterol Bipolar disorder home meds Gouty arthritis allopurinol Chronic back pain Chronic pain secondary to DJD affecting the lumbar and cervical spine continue home meds. VS,Fishbone, I+O VS, Fishbone, I+O Laboratory Tests 01/28/20 19:33 01/28/20 23:24 01/29/20 03:51 01/29/20 07:55 01/29/20 11:10 Vital Signs Date Time Temp Pulse Resp B/P (MAP) Pulse Ox O2 Delivery O2 Flow Rate FiO2 01/29/20 12:49 103 162/91 01/29/20 11:40 98.8 20 94 Room Air I&O- Last 24 Hours up to 6 AM 01/29/20 06:00 Intake Total 4324 ml Output Total 630 ml Balance 3694 ml MANNY SHARP MD Jan 29, 2020 14:41
[2020-01-29] MEDS: cefTRIAXone SOD 1 GM in D5W MINI-BAG PLUS 50 ML IV SCH (21:14)
[2020-01-30] VITALS (8 sets, daily range): BP systolic 103–150; BP diastolic 79–87
[2020-01-30] MEDS: VANCOMYCIN HCL 1,000 MG, VIAL MATE ADAPTER 1 EACH in D5W 250 ML IV SCH ×2 (02:25→15:42)
[2020-01-30 06:48] LABS: BASO % 0.4 % (0.0-1.0); EOS # 0.1 10^3/uL (0.0-0.5); EOS % 0.9 % (0.0-3.0); HEMATOCRIT 38.2 % (42.0-52.0); HEMOGLOBIN 12.9 g/dl (13.5-17.5); LYMPH # 1.8 10^3/uL (1.5-5.0); LYMPH % 25.7 % (24.0-44.0); MEAN CORPUSCULAR HEMOGLOBIN 29.3 pg (27.0-33.0); MEAN CORPUSCULAR HGB CONC 33.8 g/dl (32.0-36.5); MEAN CORPUSCULAR VOLUME 86.6 fl (80.0-96.0); MONO # 0.9 10^3/uL (0.0-0.8); MONO % 12.3 % (0.0-5.0); NEUTROPHILS # 4.2 10^3/uL (1.5-8.5); NEUTROPHILS % 60.1 % (36.0-66.0); RED BLOOD COUNT 4.41 10^6/uL (4.30-6.10); WHITE BLOOD COUNT 7.1 10^3/uL (4.0-10.0)
[2020-01-30] MEDS: SYMBICORT 80/4.5MCG INHALER 6GM INH SCH ×2 (07:01→19:37)
[2020-01-30 07:18] LABS: BLOOD UREA NITROGEN 14 MG/DL (7-18); CALCIUM LEVEL 8.9 MG/DL (8.8-10.2); CARBON DIOXIDE LEVEL 28 MEQ/L (21-32); CHLORIDE LEVEL 101 MEQ/L (98-107); CREATININE FOR GFR 0.92 MG/DL (0.70-1.30); GLOMERULAR FILTRATION RATE > 60.0 (>49); GLUCOSE, FASTING 311 MG/DL (70-100); POTASSIUM SERUM 3.9 MEQ/L (3.5-5.1); SODIUM LEVEL 135 MEQ/L (136-145)
[2020-01-30 07:24] LABS: PLATELET COUNT, AUTOMATED 99 10^3/uL (150-450)
[2020-01-30] MEDS: DABIGATRAN ETEXILATE 75 MG CAP (PRADAXA) PO SCH ×2 (09:34→20:05)
[2020-01-30] MEDS: K-PHOS ORIGINAL (POT.ACID PHOSPHATE) 500MG TAB PO SCH ×2 (09:34→20:04)
[2020-01-30] MEDS: THIAMINE 100 MG TAB PO SCH ×2 (09:35→20:05)
[2020-01-30] MEDS: CYANOCOBALAMIN 500 MCG TAB PO SCH (09:35)
[2020-01-30] MEDS: MAGNESIUM OXIDE 400 MG TAB (MAG-OX) PO SCH ×3 (09:35→20:04)
[2020-01-30] MEDS: FAMOTIDINE 20 MG TAB PO SCH (09:35)
[2020-01-30] MEDS: buPROPion **XL** TABLET 150MG (WELLBUTRIN XL) PO SCH (09:35)
[2020-01-30] MEDS: ASPIRIN 81 MG ENTERIC TAB PO SCH (09:35)
[2020-01-30] MEDS: VITAMIN D 1,000 INTERNATIONAL UNITS TABLET PO SCH (09:35)
[2020-01-30] MEDS: PRAVASTATIN 20 MG TAB PO SCH (09:36)
[2020-01-30] MEDS: MULTIVITAMINS/MINERALS THERAP 1 TAB PO SCH (09:36)
[2020-01-30] MEDS: PANTOPRAZOLE 40MG TAB (PROTONIX) PO SCH (09:36)
[2020-01-30] MEDS: allopurinoL 100 MG TAB PO SCH (09:36)
[2020-01-30] MEDS: FLUoxetine 20 MG CAP PO SCH (09:36)
[2020-01-30] MEDS: FOLIC ACID 1 MG TAB PO SCH (09:36)
[2020-01-30] MEDS: HumaLOG INSULIN (NovoLOG) PER UNIT SC SCH ×4 (09:38→21:00)
[2020-01-30] MEDS: LEVEMIR (INSULIN DETEMIR) 1 UNITS/0.01ML SC SCH ×2 (09:38→21:09)
[2020-01-30] MEDS: METOPROLOL SUCC (TopROL XL) 50MG **XL** TAB PO SCH ×2 (09:40→20:06)
--- NOTE | 2020-01-30 10:06 | IPNPDOC ---
Text Note Date of Service The patient was seen on 01/30/20. NOTE Subjective: Patient sleeping this am. last received ativan at midnight. Woke up on calling but says is very sleep;y and wants to sleep more. Physical EXAM: Vitals: As below GEN: well-nourished / well developed/ NAD INTEGUMENT: dry peeling skin around the roes and ball of feet on the left, hammer toes and overlap of toes, right third toe with infection and discharge of pus. HEENT: NCAT CVS: RRR/NMRG/radial pulses intact / no lower extremity edema LUNGS: able to speak full sentences without stopping to take a breath / lungs are clear to auscultation bilaterally on room air ABDOMEN: Contour (flat), normal bowel sounds, nontender, no organomegaly NEURO: CN 2-12 are grossly intact / speech is not dysarthric PSYCH: alert / speech is tangential Labs and radiology: reviewed Assessment and plan: This 69-year-old male With PMH of bipolar disorder, alcohol abuse, IDDM, neuropathy, chronic HTN, chronic diastolic CHF, pulmonary hypertension, paroxysmal atrial fibrillation, dyslipidemia, COPD, depression, CKD 2, gouty arthritis, and DJD was brought in by EMS after having a fall and confusion. He has a history of frequent falls, which have been attributed to hypoglycemia in the past. At the time of my evaluation, the patient reported come to the hospital because he's concerned about his toes being discolored. He was confused, easily distracted. He was admitted for acute metabolic encephalopathy, DKA, sepsis possibly due to infected toes, and ZAFAR. Acute Metabolic Encephalopathy as per confused for 3 days prir to admission probably Infection and DKA at home and then was having alcohol withdrawal in the hospital on the back ground of his chronic psych issues continue sitter. CIWA protocol. DKA resolved. He has IDDM w neuropathy will started on levemir and lispro carb consistent diet. Sepsis due to infected third toe seen by Dr Abbott, on moe and vancomycin deescalated to ceftriaxone and vanco. I and D was done at bedside Alcohol use disorder with alcoholic cardiomyopathy resolved after quitting alcohol. As per he is an alcoholic and drinks 4 to 5 beers a day. ?Alcohol withdrawal start CIWA protocol. Acute Renal Failure on CKD 2 now resolved. Mechanical Fall Cause is unclear at this time. Suspect it may be due to neuropathy ? At his baseline the patient has walks with a cane CT of the head and cervical spine were unremarkable PT/OT Rash/Perineal redness - Zinc cream Chronic HTN/chronic diastolic CHF metoprolol will hold lisinopril for now. Paroxysmal atrial fibrillation Continue metoprolol and Pradaxa Dyslipidemia statin COPD secondary to tobacco abuse symbicort albuterol Bipolar disorder home meds Gouty arthritis allopurinol Chronic back pain Chronic pain secondary to DJD affecting the lumbar and cervical spine continue home meds. VS,Fishbone, I+O VS, Fishbone, I+O Laboratory Tests 01/29/20 11:10 01/30/20 06:22 Vital Signs Date Time Temp Pulse Resp B/P (MAP) Pulse Ox O2 Delivery O2 Flow Rate FiO2 01/30/20 06:00 97.4 81 18 150/79 (102) 96 01/29/20 22:00 Room Air I&O- Last 24 Hours up to 6 AM 01/30/20 06:00 Intake Total 2081 ml Output Total 165 ml Balance 1916 ml MANNY SHARP MD Jan 30, 2020 09:47
--- NOTE | 2020-01-30 11:46 | IPN ---
DATE: 01/29/2020 Patient seen and examined. He is drowsy but is more oriented today. He does recognize me. He seems to answer questions appropriately, but goes back to sleep easily. He denies other overnight complaints. Vitals are reviewed. He has remained afebrile. Labs are reviewed. White blood cell count is improved to 7.1. Lower extremity examination: Erythema to the toes is improved. There remains some wound the right 3rd toe with some local erythema. ASSESSMENT: 69-year-old diabetic male with right foot diabetic ulceration and infection. PLAN: Continue empiric antibiotics. Await culture results. Continue local wound care. Will follow. REMBERTO
[2020-01-30] MEDS: MUPIROCIN 2% OINT 22 GM TUBE TOP SCH (12:14)
[2020-01-30] MEDS: ZINC OXIDE 30.6% CREAM 92GM TUBE (SECURA EPC) TOP SCH ×2 (13:20→20:07)
[2020-01-30] MEDS ORDERED: FLUCONAZOLE 100 MG TAB PO ONE (16:00)
[2020-01-30] MEDS: NYSTATIN 100,000 UNITS/GM TOPICAL PWD 15 GM TOP SCH (20:06)
[2020-01-30] MEDS: cefTRIAXone SOD 1 GM in D5W MINI-BAG PLUS 50 ML IV SCH (20:07)
[2020-01-31] MEDS: VANCOMYCIN HCL 1,000 MG, VIAL MATE ADAPTER 1 EACH in D5W 250 ML IV SCH (01:42)
[2020-01-31 02:00] VITALS: BP 138/83
[2020-01-31] MEDS ORDERED: ACETAMINOPHEN TAB 650MG DOSE (2X325MG) PO PRN (03:15)
[2020-01-31 05:50] LABS: BASO # 0.1 10^3/uL (0.0-0.2); BASO % 0.5 % (0.0-1.0); EOS # 0.2 10^3/uL (0.0-0.5); EOS % 1.8 % (0.0-3.0); HEMATOCRIT 39.7 % (42.0-52.0); HEMOGLOBIN 13.5 g/dl (13.5-17.5); LYMPH # 3.9 10^3/uL (1.5-5.0); MEAN CORPUSCULAR HEMOGLOBIN 29.7 pg (27.0-33.0); MEAN CORPUSCULAR VOLUME 87.3 fl (80.0-96.0); MONO # 1.4 10^3/uL (0.0-0.8); MONO % 11.7 % (0.0-5.0); NEUTROPHILS # 6.2 10^3/uL (1.5-8.5); NEUTROPHILS % 52.3 % (36.0-66.0); PLATELET COUNT, AUTOMATED 161 10^3/uL (150-450); RED BLOOD COUNT 4.55 10^6/uL (4.30-6.10); WHITE BLOOD COUNT 11.8 10^3/uL (4.0-10.0)
[2020-01-31 06:00] VITALS: BP 139/84
[2020-01-31 06:10] LABS: BLOOD UREA NITROGEN 10 MG/DL (7-18); CALCIUM LEVEL 8.8 MG/DL (8.8-10.2); CARBON DIOXIDE LEVEL 29 MEQ/L (21-32); CHLORIDE LEVEL 99 MEQ/L (98-107); CREATININE FOR GFR 0.88 MG/DL (0.70-1.30); GLOMERULAR FILTRATION RATE > 60.0 (>49); GLUCOSE, FASTING 116 MG/DL (70-100); POTASSIUM SERUM 4.1 MEQ/L (3.5-5.1); SODIUM LEVEL 133 MEQ/L (136-145)
[2020-01-31] MEDS: SYMBICORT 80/4.5MCG INHALER 6GM INH SCH ×2 (08:01→20:17)
[2020-01-31] MEDS: ZINC OXIDE 30.6% CREAM 92GM TUBE (SECURA EPC) TOP SCH ×2 (09:00→21:00)
[2020-01-31] MEDS: HumaLOG INSULIN (NovoLOG) PER UNIT SC SCH ×4 (09:49→21:00)
[2020-01-31] MEDS: buPROPion **XL** TABLET 150MG (WELLBUTRIN XL) PO SCH (09:50)
[2020-01-31] MEDS: VITAMIN D 1,000 INTERNATIONAL UNITS TABLET PO SCH (09:50)
[2020-01-31] MEDS: LEVEMIR (INSULIN DETEMIR) 1 UNITS/0.01ML SC SCH ×2 (09:50→22:04)
[2020-01-31] MEDS: K-PHOS ORIGINAL (POT.ACID PHOSPHATE) 500MG TAB PO SCH ×2 (09:51→21:20)
[2020-01-31] MEDS: MAGNESIUM OXIDE 400 MG TAB (MAG-OX) PO SCH ×3 (09:51→21:21)
[2020-01-31] MEDS: MULTIVITAMINS/MINERALS THERAP 1 TAB PO SCH (09:51)
[2020-01-31] MEDS: CYANOCOBALAMIN 500 MCG TAB PO SCH (09:51)
[2020-01-31] MEDS: PRAVASTATIN 20 MG TAB PO SCH (09:51)
[2020-01-31] MEDS: THIAMINE 100 MG TAB PO SCH ×2 (09:51→21:21)
[2020-01-31] MEDS: PANTOPRAZOLE 40MG TAB (PROTONIX) PO SCH (09:51)
[2020-01-31] MEDS: FAMOTIDINE 20 MG TAB PO SCH (09:51)
[2020-01-31] MEDS: METOPROLOL SUCC (TopROL XL) 50MG **XL** TAB PO SCH ×2 (09:52→21:22)
[2020-01-31] MEDS: FLUoxetine 20 MG CAP PO SCH (09:52)
[2020-01-31] MEDS: DABIGATRAN ETEXILATE 75 MG CAP (PRADAXA) PO SCH ×2 (09:52→21:20)
[2020-01-31] MEDS: FOLIC ACID 1 MG TAB PO SCH (09:52)
[2020-01-31] MEDS: ASPIRIN 81 MG ENTERIC TAB PO SCH (09:52)
[2020-01-31 10:00] VITALS: BP 108/69
[2020-01-31] MEDS: MUPIROCIN 2% OINT 22 GM TUBE TOP SCH (10:01)
[2020-01-31] MEDS: NYSTATIN 100,000 UNITS/GM TOPICAL PWD 15 GM TOP SCH ×2 (10:01→21:23)
[2020-01-31 14:00] VITALS: BP_SYST 110; BP_SYST 120; BP_DIAS 62
--- NOTE | 2020-01-31 15:13 | IPNPDOC ---
Text Note Date of Service The patient was seen on 01/31/20. NOTE Subjective: No any acute events overnight. Patient denied fever, chills, nausea, vomiting, diarrhea or dysuria VITAL SIGNS: Please see below. GENERAL: awake, alert, NAD HEENT: NCAT, anicteric sclera, GAVINO NECK: supple, no JVD CARDIOVASCULAR EXAMINATION: NS1S2, regular rate/rhythm RESPIRATORY EXAMINATION: CTA b/l, no wheezes/rales/rhonchi ABDOMINAL EXAMINATION: positive bowel sounds x 4, NT EXTREMITIES: Erythema to the toes. There remains some wound the right 3rd toe with some local erythema SKIN: warm, no rashes. NEUROLOGICAL EXAMINATION: AAO x 3, no motor/sensory deficits PSYCHIATRIC EXAMINATION: calm, normal affect Assessment and plan Patient is 69 years old male with past history of bipolar disorder, alcohol abuse, type 2 diabetes presented hospital with altered mental status and sepsis secondary to infected 3d right toe. Acute metabolic encephalopathy Secondary to alcohol withdrawal and sepsis Resolved CIWA DKA Resolved Continue detemir and insulin sliding scale Diabetes diet Sepsis Patient had leukocytosis and tachycardia on admission Wound culture positive for Klebsiella and Escherichia coli. Continue Ancef. Await finalization of culture Secondary to infected toe Continuous Improvement Coordinator team follows him EtOH abuse CIWA protocol Acute Renal Failure Secondary to dehydration now resolved. Atrial fibrillation Heart rate is under control continue metoprolol and Pradaxa COPD secondary to tobacco abuse symbicort albuterol Bipolar disorder home meds Gouty arthritis allopurinol Chronic back pain Chronic pain secondary to DJD affecting the lumbar and cervical spine continue home meds. VS,Fishbone, I+O VS, Fishbone, I+O Laboratory Tests 01/31/20 05:24 Vital Signs Date Time Temp Pulse Resp B/P (MAP) Pulse Ox O2 Delivery O2 Flow Rate FiO2 01/31/20 14:00 75 120/62 01/31/20 14:00 98.9 18 95 Room Air I&O- Last 24 Hours up to 6 AM 01/31/20 06:00 Intake Total 1860 ml Output Total 300 ml Balance 1560 ml FREDERICK CORONA DO Jan 31, 2020 15:13
--- NOTE | 2020-01-31 15:17 | IPN ---
DATE: 01/31/2020 Patient seen and examined. Denies overnight complaints, but he is still confused. He was not quite sure where he was on examination. Vitals are reviewed. Maximum temperature (Tmax) is 99.2. Labs are reviewed. White blood cell count is elevated from yesterday to 11.8. Glucose is 116 as of this morning. Labs unremarkable. Wound culture grew Klebsiella and Escherichia (E) coli sensitive to cefazolin. Lower extremity examination: Erythema to the right 3rd toe is somewhat improved. There remains ulceration at the distal tip of the toe. ASSESSMENT: 69-year-old diabetic male with cellulitis, right foot diabetic ulceration. PLAN: Will change antibiotic to cefazolin. Continue mupirocin topically. Will follow.
[2020-01-31] MEDS: ceFAZolin SOD 2 GM in IV 1 EA IV SCH (16:23)
[2020-01-31 18:00] VITALS: BP 113/69
[2020-01-31 22:00] VITALS: BP_SYST 130; BP_SYST 133; BP_DIAS 80; BP_DIAS 81
[2020-02-01] VITALS (7 sets, daily range): BP systolic 125–136; BP diastolic 78–105
[2020-02-01] MEDS: ceFAZolin SOD 2 GM in IV 1 EA IV SCH ×3 (00:09→16:25)
[2020-02-01 06:06] LABS: BASO % 0.6 % (0.0-1.0); EOS # 0.1 10^3/uL (0.0-0.5); EOS % 2.2 % (0.0-3.0); HEMATOCRIT 34.6 % (42.0-52.0); HEMOGLOBIN 11.9 g/dl (13.5-17.5); LYMPH # 1.8 10^3/uL (1.5-5.0); LYMPH % 28.1 % (24.0-44.0); MEAN CORPUSCULAR HEMOGLOBIN 30.1 pg (27.0-33.0); MEAN CORPUSCULAR HGB CONC 34.4 g/dl (32.0-36.5); MEAN CORPUSCULAR VOLUME 87.6 fl (80.0-96.0); MONO # 0.9 10^3/uL (0.0-0.8); MONO % 14.8 % (0.0-5.0); NEUTROPHILS # 3.4 10^3/uL (1.5-8.5); NEUTROPHILS % 53.2 % (36.0-66.0); PLATELET COUNT, AUTOMATED 127 10^3/uL (150-450); RED BLOOD COUNT 3.95 10^6/uL (4.30-6.10); WHITE BLOOD COUNT 6.4 10^3/uL (4.0-10.0)
[2020-02-01 06:29] LABS: BLOOD UREA NITROGEN 7 MG/DL (7-18); CALCIUM LEVEL 8.8 MG/DL (8.8-10.2); CARBON DIOXIDE LEVEL 29 MEQ/L (21-32); CHLORIDE LEVEL 104 MEQ/L (98-107); CREATININE FOR GFR 0.88 MG/DL (0.70-1.30); GLOMERULAR FILTRATION RATE > 60.0 (>49); GLUCOSE, FASTING 67 MG/DL (70-100); POTASSIUM SERUM 3.6 MEQ/L (3.5-5.1); SODIUM LEVEL 137 MEQ/L (136-145)
[2020-02-01] MEDS: SYMBICORT 80/4.5MCG INHALER 6GM INH SCH ×2 (07:19→19:58)
[2020-02-01] MEDS: HumaLOG INSULIN (NovoLOG) PER UNIT SC SCH ×4 (07:30→21:00)
[2020-02-01] MEDS: FAMOTIDINE 20 MG TAB PO SCH (08:54)
[2020-02-01] MEDS: VITAMIN D 1,000 INTERNATIONAL UNITS TABLET PO SCH (08:54)
[2020-02-01] MEDS: ASPIRIN 81 MG ENTERIC TAB PO SCH (08:54)
[2020-02-01] MEDS: CYANOCOBALAMIN 500 MCG TAB PO SCH (08:54)
[2020-02-01] MEDS: K-PHOS ORIGINAL (POT.ACID PHOSPHATE) 500MG TAB PO SCH ×2 (08:54→21:16)
[2020-02-01] MEDS: PANTOPRAZOLE 40MG TAB (PROTONIX) PO SCH (08:55)
[2020-02-01] MEDS: DABIGATRAN ETEXILATE 75 MG CAP (PRADAXA) PO SCH ×2 (08:55→21:16)
[2020-02-01] MEDS: PRAVASTATIN 20 MG TAB PO SCH (08:55)
[2020-02-01] MEDS: MAGNESIUM OXIDE 400 MG TAB (MAG-OX) PO SCH ×3 (08:55→21:17)
[2020-02-01] MEDS: buPROPion **XL** TABLET 150MG (WELLBUTRIN XL) PO SCH (08:55)
[2020-02-01] MEDS: FLUoxetine 20 MG CAP PO SCH (08:55)
[2020-02-01] MEDS: MULTIVITAMINS/MINERALS THERAP 1 TAB PO SCH (08:55)
[2020-02-01] MEDS: FOLIC ACID 1 MG TAB PO SCH (08:56)
[2020-02-01] MEDS: allopurinoL 100 MG TAB PO SCH (08:56)
[2020-02-01] MEDS: METOPROLOL SUCC (TopROL XL) 50MG **XL** TAB PO SCH ×2 (08:58→21:17)
[2020-02-01] MEDS ORDERED: POTASSIUM CHLORIDE 10 MEQ SR TABLET PO ONE (09:00)
[2020-02-01] MEDS: ZINC OXIDE 30.6% CREAM 92GM TUBE (SECURA EPC) TOP SCH ×2 (09:06→21:24)
[2020-02-01] MEDS: MUPIROCIN 2% OINT 22 GM TUBE TOP SCH (09:06)
[2020-02-01] MEDS: NYSTATIN 100,000 UNITS/GM TOPICAL PWD 15 GM TOP SCH ×2 (09:07→21:18)
[2020-02-01] MEDS: LEVEMIR (INSULIN DETEMIR) 1 UNITS/0.01ML SC SCH (10:51)
--- NOTE | 2020-02-01 11:55 | IPNPDOC ---
Text Note Date of Service The patient was seen on 02/01/20. NOTE Subjective: No any acute events overnight. Patient has a good appetite Patient denied fever, chills, nausea, vomiting, diarrhea or dysuria VITAL SIGNS: Please see below. GENERAL: awake, alert, NAD HEENT: NCAT, anicteric sclera, GAVINO NECK: supple, no JVD CARDIOVASCULAR EXAMINATION: NS1S2, regular rate/rhythm RESPIRATORY EXAMINATION: CTA b/l, no wheezes/rales/rhonchi ABDOMINAL EXAMINATION: positive bowel sounds x 4, NT EXTREMITIES: Erythema to the toes. There remains some wound the right 3rd toe with some local erythema SKIN: warm, no rashes. NEUROLOGICAL EXAMINATION: AAO x 3, no motor/sensory deficits PSYCHIATRIC EXAMINATION: calm, normal affect Assessment and plan Patient is 69 years old male with past history of bipolar disorder, alcohol abuse, type 2 diabetes presented hospital with altered mental status and sepsis secondary to infected 3d right toe. Acute metabolic encephalopathy Secondary to alcohol withdrawal and sepsis Resolved CIWA DKA Resolved Continue detemir and insulin sliding scale Diabetes diet Patient was hypoglycemic overnight. I change detemir regimen, 30 units in the morning and 10 units overnight Sepsis Resolved Patient had leukocytosis and tachycardia on admission Wound culture positive for Klebsiella and Escherichia coli. Continue Ancef. Await finalization of culture Secondary to infected toe Director Of Public Health team follows him EtOH abuse CIWA protocol Acute Renal Failure Secondary to dehydration now resolved. Atrial fibrillation Heart rate is under control continue metoprolol and Pradaxa COPD secondary to tobacco abuse symbicort albuterol Bipolar disorder home meds Gouty arthritis allopurinol Chronic back pain Chronic pain secondary to DJD affecting the lumbar and cervical spine continue home meds. VS,Fishbone, I+O VS, Fishbone, I+O Laboratory Tests 02/01/20 05:16 Vital Signs Date Time Temp Pulse Resp B/P (MAP) Pulse Ox O2 Delivery O2 Flow Rate FiO2 02/01/20 08:58 98 136/105 02/01/20 06:00 98.2 18 99 Room Air I&O- Last 24 Hours up to 6 AM 02/01/20 06:00 Intake Total 1190 ml Output Total 250 ml Balance 940 ml FREDERICK CORONA DO Feb 01, 2020 11:55
[2020-02-01] MEDS ORDERED: LEVEMIR (INSULIN DETEMIR) 1 UNITS/0.01ML SC SCH (21:00)
[2020-02-02] MEDS: ceFAZolin SOD 2 GM in IV 1 EA IV SCH ×3 (00:49→16:48)
[2020-02-02 02:00] VITALS: BP 128/80
[2020-02-02 05:34] LABS: BASO # 0.1 10^3/uL (0.0-0.2); BASO % 0.8 % (0.0-1.0); EOS # 0.1 10^3/uL (0.0-0.5); HEMATOCRIT 37.4 % (42.0-52.0); HEMOGLOBIN 12.4 g/dl (13.5-17.5); LYMPH % 27.9 % (24.0-44.0); MEAN CORPUSCULAR HEMOGLOBIN 29.8 pg (27.0-33.0); MEAN CORPUSCULAR HGB CONC 33.2 g/dl (32.0-36.5); MEAN CORPUSCULAR VOLUME 89.9 fl (80.0-96.0); MONO # 1.2 10^3/uL (0.0-0.8); MONO % 11.3 % (0.0-5.0); NEUTROPHILS # 6.1 10^3/uL (1.5-8.5); NEUTROPHILS % 56.2 % (36.0-66.0); RED BLOOD COUNT 4.16 10^6/uL (4.30-6.10); WHITE BLOOD COUNT 10.8 10^3/uL (4.0-10.0)
[2020-02-02 05:41] LABS: PLATELET COUNT, AUTOMATED 232 10^3/uL (150-450)
[2020-02-02 06:00] VITALS: BP 130/75
[2020-02-02 06:09] LABS: BLOOD UREA NITROGEN 8 MG/DL (7-18); CALCIUM LEVEL 9.1 MG/DL (8.8-10.2); CARBON DIOXIDE LEVEL 28 MEQ/L (21-32); CHLORIDE LEVEL 106 MEQ/L (98-107); CREATININE FOR GFR 0.88 MG/DL (0.70-1.30); GLOMERULAR FILTRATION RATE > 60.0 (>49); GLUCOSE, FASTING 33 MG/DL (70-100); POTASSIUM SERUM 3.8 MEQ/L (3.5-5.1); SODIUM LEVEL 140 MEQ/L (136-145)
[2020-02-02] MEDS: HumaLOG INSULIN (NovoLOG) PER UNIT SC SCH ×3 (07:30→17:40)
[2020-02-02] MEDS: SYMBICORT 80/4.5MCG INHALER 6GM INH SCH (08:00)
[2020-02-02] MEDS: FAMOTIDINE 20 MG TAB PO SCH (08:33)
[2020-02-02] MEDS: DABIGATRAN ETEXILATE 75 MG CAP (PRADAXA) PO SCH (08:34)
[2020-02-02 08:35] VITALS: BP 160/88
[2020-02-02] MEDS: MULTIVITAMINS/MINERALS THERAP 1 TAB PO SCH (08:35)
[2020-02-02] MEDS: buPROPion **XL** TABLET 150MG (WELLBUTRIN XL) PO SCH (08:35)
[2020-02-02] MEDS: FLUoxetine 20 MG CAP PO SCH (08:35)
[2020-02-02] MEDS: PANTOPRAZOLE 40MG TAB (PROTONIX) PO SCH (08:35)
[2020-02-02] MEDS: CYANOCOBALAMIN 500 MCG TAB PO SCH (08:35)
[2020-02-02] MEDS: METOPROLOL SUCC (TopROL XL) 50MG **XL** TAB PO SCH (08:35)
[2020-02-02] MEDS: FOLIC ACID 1 MG TAB PO SCH (08:35)
[2020-02-02] MEDS: MAGNESIUM OXIDE 400 MG TAB (MAG-OX) PO SCH ×2 (08:36→16:48)
[2020-02-02] MEDS: PRAVASTATIN 20 MG TAB PO SCH (08:36)
[2020-02-02] MEDS: VITAMIN D 1,000 INTERNATIONAL UNITS TABLET PO SCH (08:36)
[2020-02-02] MEDS: ASPIRIN 81 MG ENTERIC TAB PO SCH (08:36)
[2020-02-02] MEDS: K-PHOS ORIGINAL (POT.ACID PHOSPHATE) 500MG TAB PO SCH (08:36)
[2020-02-02] MEDS: LEVEMIR (INSULIN DETEMIR) 1 UNITS/0.01ML SC SCH (08:41)
[2020-02-02] MEDS: ZINC OXIDE 30.6% CREAM 92GM TUBE (SECURA EPC) TOP SCH (08:41)
[2020-02-02] MEDS: NYSTATIN 100,000 UNITS/GM TOPICAL PWD 15 GM TOP SCH (08:42)
[2020-02-02] MEDS: MUPIROCIN 2% OINT 22 GM TUBE TOP SCH (08:42)
[2020-02-02 10:00] VITALS: BP 162/95
--- NOTE | 2020-02-02 11:55 | IPNPDOC ---
Text Note Date of Service The patient was seen on 02/02/20. NOTE Subjective: Patient developed hypoglycemia overnight with glucose level of 33. Patient denied fever, chills, nausea, vomiting, diarrhea or dysuria VITAL SIGNS: Please see below. GENERAL: awake, alert, NAD HEENT: NCAT, anicteric sclera, GAVINO NECK: supple, no JVD CARDIOVASCULAR EXAMINATION: NS1S2, regular rate/rhythm RESPIRATORY EXAMINATION: CTA b/l, no wheezes/rales/rhonchi ABDOMINAL EXAMINATION: positive bowel sounds x 4, NT EXTREMITIES: Erythema to the toes. There remains some wound the right 3rd toe with some local erythema SKIN: warm, no rashes. NEUROLOGICAL EXAMINATION: AAO x 3, no motor/sensory deficits PSYCHIATRIC EXAMINATION: calm, normal affect Assessment and plan Patient is 69 years old male with past history of bipolar disorder, alcohol abuse, type 2 diabetes presented hospital with altered mental status and sepsis secondary to infected 3d right toe. Acute metabolic encephalopathy Secondary to alcohol withdrawal and sepsis Resolved CIWA DKA Resolved Continue detemir and insulin sliding scale Diabetes diet Patient was hypoglycemic overnight. I discontinued evening dose of detemir, patient encouraged to eat before he goes to bed Sepsis Resolved Patient had leukocytosis and tachycardia on admission Wound culture positive for Klebsiella and Escherichia coli. Continue Ancef. Await finalization of bone culture Secondary to infected toe Mineral Economist team follows him EtOH abuse CIWA protocol Acute Renal Failure Secondary to dehydration now resolved. Atrial fibrillation Heart rate is under control continue metoprolol and Pradaxa COPD secondary to tobacco abuse symbicort albuterol Bipolar disorder home meds Gouty arthritis allopurinol Chronic back pain Chronic pain secondary to DJD affecting the lumbar and cervical spine continue home meds. VS,Fishbone, I+O VS, Fishbone, I+O Laboratory Tests 02/02/20 05:13 Vital Signs Date Time Temp Pulse Resp B/P (MAP) Pulse Ox O2 Delivery O2 Flow Rate FiO2 02/02/20 10:00 98.4 82 19 162/95 (117) 100 Room Air I&O- Last 24 Hours up to 6 AM 02/02/20 06:00 Intake Total 1690 ml Output Total 300 ml Balance 1390 ml FREDERICK CORONA DO Feb 02, 2020 11:55
[2020-02-02 14:00] VITALS: BP 162/95
--- NOTE | 2020-02-02 15:11 | IPN ---
DATE: 02/02/2020 Patient seen and examined. He is much more alert today than he was yesterday. Maximum temperature (Tmax) is 99.2. Labs: White blood cell count is 10.8. Glucose this morning was 33. Culture results are finalized both growing grew Klebsiella and Escherichia (E) coli sensitive which are both sensitive to cefazolin. Lower extremity examination: Erythema of the right toe is improved. There remains wound at the distal tip of the toe. ASSESSMENT: Diabetic male with foot diabetic infection and ulceration right 3rd toe. PLAN: Patient most likely will be able to discharged tomorrow if labs and mental status are both good. He can be discharged on cefazolin for 7 days. Most likely will plan to do flexor tenotomy to help prevent further wound. This can be done in my office. He should have followup with me either later this week or early next month.
[2020-02-02] MEDS ORDERED: CEPH500C PO ×2 (16:47→16:53)
--- NOTE | 2020-02-02 17:00 | DS.PDOC ---
Discharge Summary General Date of Admission Jan 28, 2020 at 21:50 Date of Discharge 02/02/20 Discharge Summary PROCEDURES PERFORMED DURING STAY: [None]. ADMITTING DIAGNOSES: Acute metabolic encephalopathy DKA Sepsis Secondary to infected toe EtOH abuse Acute Renal Failure Atrial fibrillation COPD secondary to tobacco abuse Bipolar disorder Gouty arthritis Chronic back pain DISCHARGE DIAGNOSES: Acute metabolic encephalopathy DKA Sepsis Secondary to infected toe EtOH abuse Acute Renal Failure Atrial fibrillation COPD secondary to tobacco abuse Bipolar disorder Gouty arthritis Chronic back pain COMPLICATIONS/CHIEF COMPLAINT: Acute Renal Failure. HISTORY OF PRESENT ILLNESS: This 69-year-old male With PMH of bipolar disorder, alcohol abuse, IDDM, neuropathy, chronic HTN, chronic diastolic CHF, pulmonary hypertension, paroxysmal atrial fibrillation, dyslipidemia, COPD, depression, CKD 2, gouty arthritis, and DJD was brought in by EMS after having a fall and confusion. He has a history of frequent falls, which have been attributed to hypoglycemia in the past. At the time of my evaluation, the patient reported come to the hospital because he's concerned about his toes being discolored. He was confused, easily distracted. He was admitted for acute metabolic encephalopathy, DKA, sepsis possibly due to infected toes, and ZAFAR. HOSPITAL COURSE: During hospital stay following issue addressed Acute metabolic encephalopathy Secondary to alcohol withdrawal and sepsis Resolved after CIWA treatment DKA Resolved Patient received treatment with insulin drip, then detemir and insulin sliding scale Sepsis Resolved Patient had leukocytosis and tachycardia on admission Wound culture positive for Klebsiella and Escherichia coli. Patient received treatment with Ancef. Await finalization of bone culture Secondary to infected toe [employer] team follows him. Debridement was done EtOH abuse CIWA protocol Acute Renal Failure Secondary to dehydration now resolved. Atrial fibrillation Heart rate is under control continue metoprolol and Pradaxa COPD secondary to tobacco abuse symbicort albuterol Bipolar disorder home meds Gouty arthritis allopurinol Chronic back pain Chronic pain secondary to DJD affecting the lumbar and cervical spine continue home meds. DISCHARGE MEDICATIONS: Please see below. ALLERGIES: Please see below. PHYSICAL EXAMINATION ON DISCHARGE: VITAL SIGNS: Please see below. GENERAL: awake, alert, NAD HEENT: NCAT, anicteric sclera, GAVINO NECK: supple, no JVD CARDIOVASCULAR EXAMINATION: NS1S2, regular rate/rhythm RESPIRATORY EXAMINATION: CTA b/l, no wheezes/rales/rhonchi ABDOMINAL EXAMINATION: positive bowel sounds x 4, NT EXTREMITIES: Erythema to the toes. There remains some wound the right 3rd toe with some local erythema SKIN: warm, no rashes. NEUROLOGICAL EXAMINATION: AAO x 3, no motor/sensory deficits PSYCHIATRIC EXAMINATION: calm, normal affect LABORATORY DATA: Please see below. IMAGING: [facility] NAME: CHACHO LANDRUM DATE OF : 1950 BUSINESS NUMBER: [id number] AGE: 69 SEX: M REPORT #: [id number] ROOM: ED TECHNOLOGIST: ASHLEE DOCTOR: KENDRICK NEGRETE [employer] SUPERVISOR Ordered for Date&Time: 01/28/201899 cc: [~ rep ct ivnm] Service Date&Time: 01/28/201902 This report is in Signed status. Interpretation performed by [facility]. Thank you for having your radiology procedures performed at [facility] RADIOLOGY REPORT Date&Time printed: [~ rep prt dt last] [~ rep prt tm last] Page 2 of 2 [place] [id number] RADIOLOGY REPORT This report is in Signed status. Interpretation performed by [facility]. Thank you for having your radiology procedures performed at [facility] RADIOLOGY REPORT Date&Time printed: [~ rep prt dt last] [~ rep prt tm last] Page 1 of 2 PROCEDURE INFORMATION: Exam: CT Cervical Spine Without Contrast Exam date and time: 01/28/2020 7:03 PM Age: 69 years old Clinical indication: Neck pain; Additional info: Fall blood thinners TECHNIQUE: Imaging protocol: Computed tomography images of the cervical spine without contrast. Radiation optimization: All CT scans at this facility use at least one of these dose optimization techniques: automated exposure control; mA and/or kV adjustment per patient size (includes targeted exams where dose is matched to clinical indication); or iterative reconstruction. COMPARISON: CT Spine,cervical w/o contrast 04/11/2018 12:16 PM FINDINGS: Vertebrae: No acute fracture. Normal alignment. Diffuse degeneration of the uncovertebral and facet joints. C2-C3: No spinal canal stenosis. No neural foraminal narrowing. C3-C4: No spinal canal stenosis. Moderate to severe left neural foraminal narrowing. C4-C5: No spinal canal stenosis. Moderate bilateral neural foraminal narrowing. C5-C6: No spinal canal stenosis. No neural foraminal narrowing. C6-C7: No No spinal canal stenosis. No neural foraminal narrowing. C7-T1: No spinal canal stenosis. No neural foraminal narrowing. Soft tissues: Unremarkable. Lungs: Lung apices are unremarkable. IMPRESSION: No acute fracture or dislocation in the cervical spine. Electronically signed by: Vincenzo Cevallos On 01/28/2020 19:24:24 PM DD: VINCENZO CEVALLOS MD 01/28/201902 DT: SYLVIA 01/28/201923 DS: MAURICIO 01/28/201923 [~ rep ct labl] PROGNOSIS: Fair ACTIVITY: [As tolerated]. DIET: Cardiac DISCHARGE PLAN: Home DISCHARGE INSTRUCTIONS: Follow-up with ammonium nitrate crystallizer in 5-7 days DISCHARGE CONDITION: [Stable]. TIME SPENT ON DISCHARGE: Greater than 20 minutes. Vital Signs/I&Os Vital Signs Date Time Temp Pulse Resp B/P (MAP) Pulse Ox O2 Delivery O2 Flow Rate FiO2 02/02/20 14:00 98.4 82 19 162/95 (117) 100 Room Air I&O- Last 24 Hours up to 6 AM 02/02/20 05:59 Intake Total 1970 ml Output Total 300 ml Balance 1670 ml Laboratory Data Labs 24H Laboratory Tests 2 02/01/20 17:31: Bedside Glucose (Misc Panel) 88 02/01/20 20:29: Bedside Glucose (Misc Panel) 118H 02/02/20 05:13: Immature Granulocyte % (Auto) 2.8, Neutrophils (%) (Auto) 56.2, Lymphocytes (%) (Auto) 27.9, Monocytes (%) (Auto) 11.3H, Eosinophils (%) (Auto) 1.0, Basophils (%) (Auto) 0.8, Neutrophils # (Auto) 6.1, Lymphocytes # (Auto) 3.0, Monocytes # (Auto) 1.2H, Eosinophils # (Auto) 0.1, Basophils # (Auto) 0.1, Nucleated Red Blood Cells % (auto) 0.0, Anion Gap 6L, Glomerular Filtration Rate > 60.0, Calcium Level 9.1 02/02/20 08:43: Bedside Glucose (Misc Panel) 55L 02/02/20 09:25: Bedside Glucose (Misc Panel) 179H 02/02/20 12:19: Bedside Glucose (Misc Panel) 220H CBC/BMP Laboratory Tests 02/02/20 05:13 FSBS Laboratory Tests Test 02/01/20 17:31 02/01/20 20:29 02/02/20 08:43 02/02/20 09:25 Range/Units Bedside Glucose (Misc Panel) 88 118 55 179 80-115 MG/DL Test 02/02/20 12:19 Range/Units Bedside Glucose (Misc Panel) 220 80-115 MG/DL Microbiology Microbiology 01/29/20 Wound Culture - Final, Complete Klebsiella Pneumoniae Escherichia Coli 01/29/20 Wound Culture - Final, Complete Klebsiella Pneumoniae Escherichia Coli 01/28/20 Blood Culture - Preliminary, Resulted No Growth after 72 hours. All specime... Discharge Medications Scheduled Allopurinol (Allopurinol) 100 Mg Tab, 100 MG PO Q2D, (Reported) Ammonium Lactate (Ammonium Lactate) 12% Cream..g., 1 DOSE TOP DAILY, (Reported) APPLY TO FEET Aspirin (Aspir 81) 81 Mg Tab, 81 MG PO DAILY, (Reported) Budesonide/Formoterol (Symbicort 80-4.5 Mcg Inhaler) 60 Puff/Inhaler Aers, 2 PUFF INH BID, (Reported) Bupropion HCl (Bupropion Xl) 300 Mg Tab, 300 MG PO DAILY, (Reported) Cephalexin (Cephalexin) 500 Mg Capsule, 500 MG PO BID Cholecalciferol (Vitamin D3) (Vitamin D3) 1,000 Unit Tablet, 1,000 UNITS PO DAILY, (Reported) Ciclopirox Olamine (Ciclopirox) 15 Gm Cream..g., 1 DOSE TOP TID, (Reported) Cyanocobalamin (Vitamin B-12) (Vitamin B-12) 1,000 Mcg Tab, 1,000 MCG PO DAILY, (Reported) Dabigatran Etexilate Mesylate (Pradaxa) 150 Mg Capsule, 150 MG PO BID, (Reported) Esomeprazole Magnesium (Esomeprazole Magnesium) 40 Mg Capsule.dr, 40 MG PO DAILY, (Reported) Fluoxetine Hcl (Fluoxetine HCl) 20 Mg Cap, 20 MG PO DAILY, (Reported) Folic Acid (Folic Acid) 0.4 Mg Tablet, 400 MCG PO DAILY, (Reported) Gluc Coombs/Chondro Coombs A/Vit C/Mn (Glucosamine-Chondroitin Cap) 1 Cap Cap, 1 CAP PO BID, (Reported) Insulin Degludec (Tresiba Flextouch U-100) 100 Unit/Ml Inj, 18 UNIT SC DAILY, (Reported) Insulin Human Lispro (Humalog) 1 Units/0.01 Ml Inj, 1 DOSE SC ACHS, (Reported) PER SLIDING SCALE Lisinopril (Lisinopril) 20 Mg Tab, 20 MG PO DAILY, (Reported) Magnesium Oxide (Magnesium) 400 Mg Cap, 400 MG PO TID, (Reported) Metoprolol Succinate (Metoprolol Succinate) 50 Mg Tab.er.24h, 50 MG PO BID, (Reported) Milk Thistle Seed Extract (Milk Thistle) 200 Mg Capsule, 200 MG PO DAILY, (Reported) Mometasone Furoate (Mometasone Furoate) 50 Mcg/Act Spr, 2 PUFF NA DAILY, (Reported) Multivitamin (Multivitamins) 1 Each Capsule, 1 CAP PO DAILY, (Reported) Pravastatin Sodium (Pravachol) 20 Mg Tab, 20 MG PO DAILY, (Reported) Scheduled PRN Sildenafil Citrate (Viagra) 100 Mg Tab, 100 MG PO DAILY PRN for ERECTILE DYSFUNCTION, (Reported) Miscellaneous Medications [Patient Comment] , (Reported) UNABLE TO VERIFY MEDICATIONS WITH PATIENT - MED LIST OBTAINED FROM EXTERNAL MED HX AND PREVIOUS CLINIC VISIT Allergies Coded Allergies: No Known Allergies (Verified , 01/01/19) FREDERICK CORONA DO Feb 02, 2020 17:00
[2020-02-02] MEDS ORDERED: LEVEMIR (INSULIN DETEMIR) 1 UNITS/0.01ML SC SCH (21:00)
== END 2020-02-02 17:56 | disposition home health service (06) | DRG 853 ==
LOC: M ED 18:51 → M ED INP 21:50 → M RR INP 01-29 00:04 → M MSPAV 01-29 11:17
PROVIDERS: ADMIT Internal Medicine; ATTEND Internal Medicine
PROC: 0JDQ0ZZ Extraction of Right Foot Subcutaneous Tissue and Fascia, Open Approach (ICD-10-PCS; principal; 2020-01-29)
DX: A41.9 Sepsis, unspecified organism (principal); E11.10 Type 2 diabetes mellitus with ketoacidosis without coma; G93.41 Metabolic encephalopathy; N17.9 Acute kidney failure, unspecified; I13.0 Hypertensive heart and chronic kidney disease with heart failure and stage 1 through stage 4 chronic kidney disease, or unspecified chronic kidney disease; I50.32 Chronic diastolic (congestive) heart failure; E11.52 Type 2 diabetes mellitus with diabetic peripheral angiopathy with gangrene; I42.6 Alcoholic cardiomyopathy; L03.115 Cellulitis of right lower limb; N18.2 Chronic kidney disease, stage 2 (mild); J44.9 Chronic obstructive pulmonary disease, unspecified; I48.0 Paroxysmal atrial fibrillation; F17.200 Nicotine dependence, unspecified, uncomplicated; M51.36 Other intervertebral disc degeneration, lumbar region; F31.9 Bipolar disorder, unspecified; I27.20 Pulmonary hypertension, unspecified; R29.6 Repeated falls; M10.9 Gout, unspecified; E78.5 Hyperlipidemia, unspecified; B96.29 Other Escherichia coli [E. coli] as the cause of diseases classified elsewhere; B96.1 Klebsiella pneumoniae [K. pneumoniae] as the cause of diseases classified elsewhere; E86.0 Dehydration; Z79.899 Other long term (current) drug therapy; Z79.82 Long term (current) use of aspirin; Z79.4 Long term (current) use of insulin; E87.5 Hyperkalemia; I44.0 Atrioventricular block, first degree; R21 Rash and other nonspecific skin eruption; I35.0 Nonrheumatic aortic (valve) stenosis; Z87.891 Personal history of nicotine dependence; E11.621 Type 2 diabetes mellitus with foot ulcer

== ENCOUNTER → 2020-03-26 | Outpatient (CLI) | payer MEDICARE, OTHER ==
[~2020-03-26] MED LIST changes: +AMMO12CR7 TOP; +CEPH500C PO; +CICL0.7739; +CICL0.7739 TOP; +ESOM1CAP5 PO; +ESOM40CA35; +FAMO40TA3 PO; +FOLI0.4T PO; +LINE1TAB PO; +LINE1TAB6; +PATIENT COMMENT; +VITAD1000T PO
== END ==
LOC: M LABSMTC 09:38
PROVIDERS: ATTEND Physician Assistant
DX: Z01.812 Encounter for preprocedural laboratory examination (principal); Z11.59 Encounter for screening for other viral diseases; M47.817 Spondylosis without myelopathy or radiculopathy, lumbosacral region
CPT/HCPCS: 36415; 85027; 85610; 85730; U0003

== ENCOUNTER → 2020-03-26 | Outpatient (CLI) | payer MEDICARE, OTHER ==
[2020-03-26 11:28] LABS: PLATELET COUNT, AUTOMATED 175 10^3/uL (150-450)
[2020-03-26 11:46] LABS: INR 1.27; PROTHROMBIN TIME 15.6 SECONDS (11.8-14.0)
[2020-03-26 11:47] LABS: PARTIAL THROMBOPLASTIN TIME 35.6 SECONDS (25.0-38.4)
== END ==
LOC: M PLALAB 09:55
PROVIDERS: ATTEND Physician Assistant
DX: Z01.812 Encounter for preprocedural laboratory examination (principal); M47.817 Spondylosis without myelopathy or radiculopathy, lumbosacral region

== ENCOUNTER → 2020-06-01 | Outpatient (REF) | payer MEDICARE, OTHER ==
[~2020-06-01] MED LIST changes: +AMMO12LO TOP; +ASPI-161 PO; -ASPI81TA85 PO; +ASPI81TA86 PO; +D31000TA2 PO; +GLUCTAB6 PO; +MAGN400T3 PO; -VITAD1000T PO; +VITMTA PO
== END ==
LOC: M LAB REF 13:02
PROVIDERS: ATTEND Podiatrist Foot & Ankle Surgery
DX: L03.116 Cellulitis of left lower limb (principal)

== ENCOUNTER 2020-06-06 10:54 | Emergency (ER) | payer MEDICARE, OTHER ==
[~2020-06-06 10:54] MED LIST changes: -AMMO12LO TOP; -ASPI-161 PO; -GLUCTAB6 PO; -MAGN400T3 PO; -VITMTA PO
[2020-06-06] MEDS ORDERED: DEXTROSE 50% 50 ML SYRINGE ONE (11:21)
--- NOTE | 2020-07-09 15:25 | ECGEPIP ---
SINUS RHYTHM WITH SHORT DC INTERVAL BORDERLINE LEFT AXIS DEVIATION BORDERLINE ECG NONSPECIFIC ST & T CHANGES NO PRIOR DUE TO DOWNTIME SEE SCANNED DOWNTIME REPORT MTDD
[2020-07-19 22:32] LABS: BASO % 0.3 % (0.0-1.0); EOS % 0.3 % (0.0-3.0); HEMATOCRIT 42.7 % (42.0-52.0); HEMOGLOBIN 13.8 g/dl (13.5-17.5); LYMPH % 17.1 % (24.0-44.0); MEAN CORPUSCULAR HEMOGLOBIN 28.7 pg (27.0-33.0); MEAN CORPUSCULAR HGB CONC 32.3 g/dl (32.0-36.5); MEAN CORPUSCULAR VOLUME 88.8 fl (80.0-96.0); MONO # 0.5 10^3/uL (0.0-0.8); MONO % 7.5 % (0.0-5.0); NEUTROPHILS # 4.5 10^3/uL (1.5-8.5); NEUTROPHILS % 74.3 % (36.0-66.0); PLATELET COUNT, AUTOMATED 172 10^3/uL (150-450); RED BLOOD COUNT 4.81 10^6/uL (4.30-6.10)
[2020-07-19 22:34] LABS: ERYTHROCYTE SEDIMENTATION RATE 4 mm/hr (0-20)
== END 2020-06-06 15:30 | disposition home or self-care (01) ==
LOC: M ED 10:54
DX: E11.649 Type 2 diabetes mellitus with hypoglycemia without coma (principal); E11.621 Type 2 diabetes mellitus with foot ulcer; M48.02 Spinal stenosis, cervical region; M85.80 Other specified disorders of bone density and structure, unspecified site; N18.2 Chronic kidney disease, stage 2 (mild); I48.0 Paroxysmal atrial fibrillation; A41.9 Sepsis, unspecified organism; F33.9 Major depressive disorder, recurrent, unspecified; F41.9 Anxiety disorder, unspecified; M10.9 Gout, unspecified; Z79.899 Other long term (current) drug therapy; Z79.82 Long term (current) use of aspirin; Z79.4 Long term (current) use of insulin

== ENCOUNTER → 2020-07-08 | Outpatient (REF) | payer MEDICARE, OTHER ==
[~2020-07-08] MED LIST changes: +AMMO12LO TOP; +ASPI-161 PO; +GLUCTAB6 PO; +MAGN400T3 PO; +VITMTA PO
[2020-07-08 18:45] LABS: FREE T4 1.16 NG/DL (0.76-1.46); THYROID STIMULATING HORMONE 2.47 uIU/ML (0.358-3.740)
== END ==
LOC: M LABDRWAD 17:53
PROVIDERS: ATTEND Physician Assistant
DX: R63.4 Abnormal weight loss (principal); E11.9 Type 2 diabetes mellitus without complications
CPT/HCPCS: 36415; 84439; 84443; G0103

== ENCOUNTER 2020-07-09 18:45 | Emergency (ER) | payer MEDICARE, OTHER ==
[~2020-07-09] VITALS: Ht 188 cm; Wt 75.0 kg
[~2020-07-09 18:45] MED LIST changes: -AMMO12LO TOP; -ASPI-161 PO; -GLUCTAB6 PO; -MAGN400T3 PO; -VITMTA PO
[2020-07-09] MEDS ORDERED: PRAD150C6 PO (19:10)
--- NOTE | 2020-07-09 19:32 | REPVR ---
PROCEDURE INFORMATION: Exam: CT Cervical Spine Without Contrast Exam date and time: 07/09/2020 6:55 PM Age: 70 years old Clinical indication: Injury or trauma; Fall; Initial encounter; Blunt trauma TECHNIQUE: Imaging protocol: Computed tomography images of the cervical spine without contrast. Radiation optimization: All CT scans at this facility use at least one of these dose optimization techniques: automated exposure control; mA and/or kV adjustment per patient size (includes targeted exams where dose is matched to clinical indication); or iterative reconstruction. COMPARISON: No relevant prior studies available. FINDINGS: Vertebrae: Mild levoconvex curvature. Trace retrolisthesis of C4 on C5. Vertebral body heights are preserved. [id number] degenerative change about the dens. Moderate prevertebral osteophytosis. There are bilateral facet joint degenerative changes greater on the left. No acute cervical spine fracture. Discs/Spinal canal/Neural foramina: Central canal stenosis greatest at C3-C4, at least mild. Multilevel cervical foraminal stenoses. Soft tissues: Unremarkable. Lungs: Scarring at the lung apices. Pleural space: No visible pneumothorax. Vasculature: Vascular calcification. IMPRESSION: No acute cervical spine fracture. Electronically signed by: Fausto Gomez On 07/09/2020 19:32:08 PM
--- NOTE | 2020-07-09 19:34 | REPVR ---
PROCEDURE INFORMATION: Exam: CT Head Without Contrast Exam date and time: 07/09/2020 6:55 PM Age: 70 years old Clinical indication: Injury or trauma; Fall; Initial encounter; Blunt trauma (contusions or hematomas) TECHNIQUE: Imaging protocol: Computed tomography of the head without contrast. Radiation optimization: All CT scans at this facility use at least one of these dose optimization techniques: automated exposure control; mA and/or kV adjustment per patient size (includes targeted exams where dose is matched to clinical indication); or iterative reconstruction. COMPARISON: CT Head without contrast 01/28/2020 7:00 PM FINDINGS: Brain: Decreased attenuation of the supratentorial white matter is likely secondary to chronic microvascular ischemia. No acute intracranial hemorrhage. Ventricles: Ventricular and subarachnoid spaces are age appropriate. Bones/joints: Unremarkable. No acute fracture. Paranasal sinuses: Visualized sinuses are unremarkable. No fluid levels. Mastoid air cells: Visualized mastoid air cells are well aerated. Orbits: Postoperative change involving the left orbit. Vasculature: Intracranial vascular calcification. Soft tissues: Right parietal scalp soft tissue injury. IMPRESSION: No acute intracranial abnormality. Electronically signed by: Fausto Gomez On 07/09/2020 19:33:41 PM
[2020-07-09] MEDS ORDERED: BOOSTRIX/ADACEL VACCINE (DIPHTH/PERTUSS/ACELL/TETANUS) 0.5ML SYR IM ONE (20:00)
[2020-07-09] MEDS ORDERED: METOPROLOL TART 50 MG TAB PO ONE (20:15)
[2020-07-09 20:37] VITALS: BP 197/98
[2020-07-09 21:30] VITALS: BP 117/80
== END 2020-07-09 22:36 | disposition home or self-care (01) ==
LOC: M ED 18:45
DX: S01.01XA Laceration without foreign body of scalp, initial encounter (principal); Y92.524 Gas station as the place of occurrence of the external cause; Y93.9 Activity, unspecified; Y99.9 Unspecified external cause status; F32.9 Major depressive disorder, single episode, unspecified; F41.9 Anxiety disorder, unspecified; I48.91 Unspecified atrial fibrillation; J44.9 Chronic obstructive pulmonary disease, unspecified; K85.90 Acute pancreatitis without necrosis or infection, unspecified; I10 Essential (primary) hypertension; Z79.4 Long term (current) use of insulin; Z79.82 Long term (current) use of aspirin; Z79.899 Other long term (current) drug therapy

== ENCOUNTER 2020-07-11 06:59 | Emergency (ER) | payer MEDICARE, OTHER ==
[~2020-07-11] VITALS: Ht 188 cm; Wt 73.1 kg
[2020-07-11 07:00] VITALS: BP 162/81
== END 2020-07-11 07:49 | disposition home or self-care (01) ==
LOC: M ED 06:59
DX: Z48.00 Encounter for change or removal of nonsurgical wound dressing (principal); I10 Essential (primary) hypertension; E11.40 Type 2 diabetes mellitus with diabetic neuropathy, unspecified; I48.91 Unspecified atrial fibrillation; J45.909 Unspecified asthma, uncomplicated; M54.9 Dorsalgia, unspecified; K21.9 Gastro-esophageal reflux disease without esophagitis; Z79.82 Long term (current) use of aspirin; Z79.899 Other long term (current) drug therapy; Z79.4 Long term (current) use of insulin

== ENCOUNTER 2020-08-14 01:41 | Emergency (ER) | payer MEDICARE, OTHER ==
[~2020-08-14] VITALS: Ht 188 cm; Wt 77.3 kg
[2020-08-14 03:11] VITALS: BP 149/76
== END 2020-08-14 03:31 | disposition home or self-care (01) ==
LOC: M ED 01:41
DX: E11.621 Type 2 diabetes mellitus with foot ulcer (principal); I11.9 Hypertensive heart disease without heart failure; J44.9 Chronic obstructive pulmonary disease, unspecified; Z79.82 Long term (current) use of aspirin; Z79.899 Other long term (current) drug therapy

== ENCOUNTER 2020-08-24 01:18 | Emergency (ER) | payer MEDICARE, OTHER ==
[~2020-08-24] VITALS: Ht 188 cm; Wt 75.0 kg
[2020-08-24] MEDS ORDERED: SILVER NITRATE APPLICATOR TOP ONE (02:15)
[2020-08-24 02:45] VITALS: BP 156/66
[2020-08-24] MEDS ORDERED: AMMO12LO TOP (06:54)
[2020-08-24] MEDS ORDERED: GLUCTAB6 PO (06:54)
[2020-08-24] MEDS ORDERED: BUPR300T92 PO (06:54)
[2020-08-24] MEDS ORDERED: MAGN400T3 PO (06:54)
[2020-08-24] MEDS ORDERED: ASPI-161 PO (06:54)
[2020-08-24] MEDS ORDERED: VITMTA PO (06:54)
[2020-08-24] MEDS ORDERED: PRAD150C6 PO (06:54)
== END 2020-08-24 03:09 | disposition home or self-care (01) ==
LOC: EDBD 01:18 → M ED 01:18
DX: E11.621 Type 2 diabetes mellitus with foot ulcer (principal); I11.0 Hypertensive heart disease with heart failure; J44.9 Chronic obstructive pulmonary disease, unspecified; Z79.899 Other long term (current) drug therapy

== ENCOUNTER 2020-08-24 04:20 | Inpatient (IN) | payer MEDICARE, OTHER ==
[~2020-08-24] VITALS: Ht 188 cm; Wt 75.4 kg
[2020-08-24 05:30] LABS: BASO % 0.2 % (0.0-1.0); EOS % 0.2 % (0.0-3.0); HEMATOCRIT 33.3 % (42.0-52.0); HEMOGLOBIN 10.8 g/dl (13.5-17.5); LYMPH % 7.6 % (24.0-44.0); MEAN CORPUSCULAR HEMOGLOBIN 26.9 pg (27.0-33.0); MEAN CORPUSCULAR HGB CONC 32.4 g/dl (32.0-36.5); MEAN CORPUSCULAR VOLUME 82.8 fl (80.0-96.0); MONO # 0.8 10^3/uL (0.0-0.8); MONO % 6.4 % (0.0-5.0); NEUTROPHILS % 85.1 % (36.0-66.0); PLATELET COUNT, AUTOMATED 288 10^3/uL (150-450); RED BLOOD COUNT 4.02 10^6/uL (4.30-6.10)
[2020-08-24 05:40] LABS: INR 1.34; PROTHROMBIN TIME 16.9 SECONDS (12.5-14.3)
[2020-08-24 05:41] LABS: PARTIAL THROMBOPLASTIN TIME 46.8 SECONDS (24.2-38.5)
--- NOTE | 2020-08-24 05:49 | REPVR ---
PROCEDURE INFORMATION: Exam: CT Head Without Contrast Exam date and time: 08/24/2020 5:25 AM Age: 70 years old Clinical indication: Syncope and collapse TECHNIQUE: Imaging protocol: Computed tomography of the head without contrast. Radiation optimization: All CT scans at this facility use at least one of these dose optimization techniques: automated exposure control; mA and/or kV adjustment per patient size (includes targeted exams where dose is matched to clinical indication); or iterative reconstruction. COMPARISON: CT Head without contrast 07/09/2020 6:53 PM FINDINGS: Brain: There is patchy white matter hypoattenuation with no associated mass effect. Cerebral ventricles: There is age-related cerebral atrophy with secondary ventricular dilatation. Bones/joints: The patient is status post left orbital floor surgical repair. There is a small osteoma arising from the occipital skull. There is mild soft tissue swelling at the right vertex with no underlying skull fracture. Paranasal sinuses: There is mild left maxillary sinus mucosal thickening. Mastoid air cells: Visualized mastoid air cells are well aerated. Soft tissues: Unremarkable. IMPRESSION: 1. Right vertex soft tissue swelling with no underlying skull fracture, intracranial hemorrhage, mass effect or midline shift. 2. Age-related cerebral atrophy with chronic microangiopathic changes. Electronically signed by: Ace Vanegas On 08/24/2020 05:48:44 AM
--- NOTE | 2020-08-24 05:49 | REPVR ---
PROCEDURE INFORMATION: Exam: XR Chest, 1 View Exam date and time: 08/24/2020 5:40 AM Age: 70 years old Clinical indication: Other: Near syncope; Additional info: Syncope/near-syncope TECHNIQUE: Imaging protocol: XR of the chest Views: 1 view. COMPARISON: CR Chest, 2 view PA, Lat 06/06/2020 1:51 PM FINDINGS: Lungs: Unremarkable. No consolidation. Pleural space: Unremarkable. No pleural effusion. No pneumothorax. Heart/Mediastinum: Unremarkable. No cardiomegaly. Bones/joints: There is left shoulder DJD. Old anterolateral right 8th rib fracture seen. IMPRESSION: No focal consolidation. Electronically signed by: Ace Vanegas On 08/24/2020 05:49:40 AM
--- NOTE | 2020-08-24 05:52 | REPVR ---
PROCEDURE INFORMATION: Exam: CT Cervical Spine Without Contrast Exam date and time: 08/24/2020 5:25 AM Age: 70 years old Clinical indication: Injury or trauma; Fall; Blunt trauma; Additional info: Syncope TECHNIQUE: Imaging protocol: Computed tomography images of the cervical spine without contrast. Radiation optimization: All CT scans at this facility use at least one of these dose optimization techniques: automated exposure control; mA and/or kV adjustment per patient size (includes targeted exams where dose is matched to clinical indication); or iterative reconstruction. COMPARISON: CT Spine,cervical w/o contrast 07/09/2020 6:53 PM FINDINGS: Bones/joints: No acute fracture. Normal alignment. Discs/Spinal canal/Neural foramina: There is atlanto dense degenerative and productive changes. There are C4-C5, C5-C6 and C6-C7 disc degenerative changes. There is diffuse cervical spine facet arthrosis most pronounced in the upper cervical spine on the left with moderate narrowing of the left C3-C4 and C4-C5 neural foramina. Soft tissues: Unremarkable. Lungs: Lung apices are normal. IMPRESSION: No CT evidence of acute traumatic cervical spine injury. Electronically signed by: Ace Vanegas On 08/24/2020 05:52:54 AM
[2020-08-24 05:58] LABS: BLOOD UREA NITROGEN 18 MG/DL (7-18); CALCIUM LEVEL 8.5 MG/DL (8.8-10.2); CARBON DIOXIDE LEVEL 26 MEQ/L (21-32); CHLORIDE LEVEL 84 MEQ/L (98-107); CK-MB VALUE MASS 5.1 NG/ML (<3.6); CPK CREATINE PHOSPHOKINASE 191 U/L (39-308); CREATININE FOR GFR 1.02 MG/DL (0.70-1.30); ETHYL ALCOHOL (ETHANOL) 0.004 % (0.000-0.010); GLOMERULAR FILTRATION RATE > 60.0 (>42); GLUCOSE, FASTING 343 MG/DL (70-100); MB/CK RELATIVE INDEX 2.67 (< OR =4); POTASSIUM SERUM 4.7 MEQ/L (3.5-5.1); SODIUM LEVEL 120 MEQ/L (136-145); TROPONIN I < 0.02 NG/ML (< 0.10)
[2020-08-24] MEDS ORDERED: NS 1,000 ML IV ONE (06:45)
[2020-08-24] MEDS ORDERED: MAGN400T3 PO (06:54)
[2020-08-24] MEDS ORDERED: AMMO12LO TOP (06:54)
[2020-08-24] MEDS ORDERED: GLUCTAB6 PO (06:54)
[2020-08-24] MEDS ORDERED: VITMTA PO (06:54)
[2020-08-24] MEDS ORDERED: ASPI-161 PO (06:54)
[2020-08-24] MEDS ORDERED: BUPR300T92 PO (06:54)
[2020-08-24] MEDS ORDERED: PRAD150C6 PO (06:54)
[2020-08-24 07:30] LABS: OSMOLALITY SERUM 267 MOSM/KG (280-301)
[2020-08-24] MEDS ORDERED: GLUCAGON INJ 1MG VIAL SC PRN (08:30)
[2020-08-24] MEDS ORDERED: DEXTROSE 50% 50 ML SYRINGE IV PRN (08:30)
[2020-08-24] MEDS ORDERED: GLUCOSE 4GM CHEW TABLET PO PRN (08:30)
[2020-08-24 08:39] LABS: SODIUM,RANDOM URINE 13 MEQ/L
[2020-08-24 08:46] LABS: AMPHETAMINES LEVEL URINE NEGATIVE (NEGATIVE); BARBITURATES URINE NEGATIVE (NEGATIVE); BENZODIAZEPINES URINE NEGATIVE (NEGATIVE); CANNABINOIDS URINE NEGATIVE (NEGATIVE); COCAINE METABOLITE URINE NEGATIVE (NEGATIVE); METHADONE URINE NEGATIVE (NEGATIVE); OPIATES URINE NEGATIVE (NEGATIVE); PHENCYCLIDINE URINE NEGATIVE (NEGATIVE)
[2020-08-24] MEDS ORDERED: DABIGATRAN ETEXILATE 75 MG CAP (PRADAXA) PO SCH (09:00)
[2020-08-24] MEDS: LACTIC ACID 12% LOTION 225 GM BTL TOP SCH (09:00)
--- NOTE | 2020-08-24 09:20 | REP ---
INDICATION: left leg swelling COMPARISON: None. TECHNIQUE: Real time compression and duplex Doppler interrogation of the left lower extremity deep venous system is performed. FINDINGS: The left common femoral, superficial femoral and popliteal veins are fully compressible with transducer pressure and demonstrate normal spontaneous and phasic flow, without evidence of deep venous thrombosis. Two small calcifications are seen along the wall of the distal superficial femoral vein. A Vitale's cyst is noted measuring 2.6 x 0.5 x 1.5 cm. IMPRESSION: No evidence of deep venous thrombosis of the left lower extremity femoral popliteal venous system. <Electronically signed by Deandre Otero > 08/24/20 [id number]
[2020-08-24 09:30] VITALS: BP 127/67
--- NOTE | 2020-08-24 09:34 | ECGEPIP ---
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
[2020-08-24 09:54] LABS: BLOOD UREA NITROGEN 17 MG/DL (7-18); CALCIUM LEVEL 8.5 MG/DL (8.8-10.2); CARBON DIOXIDE LEVEL 25 MEQ/L (21-32); CHLORIDE LEVEL 88 MEQ/L (98-107); CREATININE FOR GFR 0.93 MG/DL (0.70-1.30); GLOMERULAR FILTRATION RATE > 60.0 (>42); GLUCOSE, FASTING 345 MG/DL (70-100); POTASSIUM SERUM 4.6 MEQ/L (3.5-5.1); SODIUM LEVEL 123 MEQ/L (136-145)
[2020-08-24 10:13] LABS: OSMOLALITY URINE 355 MOSM/KG (500-800)
[2020-08-24] MEDS: MAGNESIUM OXIDE 400 MG TAB (MAG-OX) PO SCH ×3 (10:30→20:41)
[2020-08-24] MEDS: CYANOCOBALAMIN 500 MCG TAB PO SCH (10:30)
[2020-08-24] MEDS: OMEPRAZOLE 20 MG CAP PO SCH (10:30)
[2020-08-24] MEDS: ASPIRIN 81 MG ENTERIC TAB PO SCH (10:30)
[2020-08-24] MEDS: lisinopriL 20 MG TAB PO SCH (10:37)
[2020-08-24] MEDS: PRAVASTATIN 20 MG TAB PO SCH (10:37)
[2020-08-24] MEDS: MULTIVITAMINS/MINERALS THERAP 1 TAB PO SCH (10:37)
[2020-08-24] MEDS: METOPROLOL SUCC (TopROL XL) 50MG **XL** TAB PO SCH ×2 (10:38→20:41)
[2020-08-24] MEDS: allopurinoL 100 MG TAB PO SCH (10:38)
[2020-08-24] MEDS: VITAMIN D 1,000 INTERNATIONAL UNITS TABLET PO SCH (10:38)
[2020-08-24] MEDS: LEVEMIR (INSULIN DETEMIR) 1 UNITS/0.01ML SC SCH (10:39)
[2020-08-24] MEDS: HumaLOG INSULIN (NovoLOG) PER UNIT SC SCH ×4 (10:39→20:40)
[2020-08-24] MEDS: NS 1,000 ML IV SCH (11:33)
[2020-08-24 13:09] LABS: BLOOD UREA NITROGEN 17 MG/DL (7-18); CALCIUM LEVEL 8.6 MG/DL (8.8-10.2); CARBON DIOXIDE LEVEL 24 MEQ/L (21-32); CHLORIDE LEVEL 90 MEQ/L (98-107); CREATININE FOR GFR 1.02 MG/DL (0.70-1.30); GLOMERULAR FILTRATION RATE > 60.0 (>42); GLUCOSE, FASTING 361 MG/DL (70-100); POTASSIUM SERUM 4.3 MEQ/L (3.5-5.1); SODIUM LEVEL 123 MEQ/L (136-145)
[2020-08-24] MEDS: SYMBICORT 80/4.5MCG INHALER 6GM INH SCH ×2 (13:27→20:14)
--- NOTE | 2020-08-24 15:33 | HPEPDOC ---
[facility] Medical History & Physical Date of Admission Aug 24, 2020 Date of Service: Aug 24, 2020 History and Physical Chief complaint: Presented to the ER after a fall while getting out of a taxicab History of present illness: Patient is a 70-year-old male with a PMHx of HTN, Diastolic CHF, Alcoholic cardiomyopathy, Pulmonary HTN, Paroxysmal A. fib, DLP, IDDM2, CKD3, COPD, Depression, Neuropathy, Chronic pain 2/2 DDD, Gout, Diabetic ulcer of L foot who presented to the hospital after he fallen out of a taxi. Patient reports that 3-4 days ago he had fallen and hit his head. Patient reported that he slipped and fell out of a taxi and came to the emergency room today. Patient reports he did hit his head in the emergency room, he has received abe for his laceration. At this time. Patient denies any nausea, vomiting, chest pain, shortness of breath, cough, palpitations, abdominal pain, constipation, diarrhea, or urinary discomfort. Denies any recent fever, chills. Denies any lightheadedness. Patient has reported a weight loss of approximately 20 pounds over 6 months. Reports his appetite is fairly normal. Patient reports that he lives at home with his and falls frequently while at home. Patient uses a cane sometimes. Past Medical History: HTN, Diastolic CHF, Alcoholic cardiomyopathy, Pulmonary HTN, Paroxysmal A. fib, DLP, IDDM2, CKD3, COPD, Depression, Neuropathy, Chronic pain 2/2 DDD, Gout, Diabetic ulcer of L foot, Past Surgical History: Hernia repair R hip arthroplasty Resection of polyps in colon Hemorrhoidectomy Resection of squamous cell cancer on his chest Tonsillectomy Myringotomy Allergies: See below Medications: See below Family History: - Reviewed and noncontributory to this hospitalization Social History: - Denies the use of illicit drugs; patient reports that he drinks 6 pack of beer in a week. 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 [employer] Review of Systems: 10 point review of systems complete, all negative otherwise stated in HPI Physical exam: - Vitals: BP [127/67], HR [82], RR [20], Sat [100%RA], Temp [98.6F] - General: Lying in bed, No acute distress, Speaking in full sentences, AAOx3 - HEENT: NC, AT, PERRLA, EOMI - CVS: RRR, +S1S2 - Lungs: Fair air entry bilaterally, No appreciable wheezing / rales / rhonchi - Abdomen: Soft, Non-distended, Non-tender - Extremities: Left leg with 1+ edema, No calf tenderness - Neuro: No focal motor or sensory deficit - Skin: No visible rashes Assessment and Plan: Hypotonic Hyponatremia - possibly 2/2 hypovolemic etiology - Currently patient is hypotonic and hyponatremic - Physical appears to reveal hypovolemia/euvolemic; no signs of fluid overload - Cr baseline appears to run 0.7-0.8; currently Cr of 1.0 - TSH noted - Will check cortisol level - Will follow BMP [id number] - c/w IV fluid hydration for now Elevated Cr on CKD3 - c/w IV fluid hydration Frequent falls / Gait instability - Will have fall precautions in place - c/w PT and OT Left leg swelling - Will check duplex US of L leg HTN - BP well controlled - c/w Lisinopril and Metoprolol with hold parameters Diastolic CHF / Alcoholic cardiomyopathy / Pulmonary HTN Paroxysmal A. fib DLP - c/w Pravastatin IDDM2 - c/w ISS and Levemir Chronic COPD - No evidence of exacerbation - c/w Inhaled therapy as ordered Depression - c/w Neuropathy / Chronic pain 2/2 DDD - c/w Tylenol PRN Gout - c/w Allopurinol Diabetic ulcer of L foot, - Patient follows with Dr. Woodard as an outpatient - Will continue with dressing changes as per outpatient regimen GERD - Will c/w Omeprazole DVT prophylaxis - Will c/w Pradaxa Vital Signs Vital Signs Date Time Temp Pulse Resp B/P (MAP) Pulse Ox O2 Delivery O2 Flow Rate FiO2 08/24/20 10:38 82 127/67 08/24/20 09:30 98.6 20 100 Room Air Laboratory Data Labs 24H Laboratory Tests 2 08/24/20 05:11: Immature Granulocyte % (Auto) 0.5, Neutrophils (%) (Auto) 85.1H, Lymphocytes (%) (Auto) 7.6L, Monocytes (%) (Auto) 6.4H, Eosinophils (%) (Auto) 0.2, Basophils (%) (Auto) 0.2, Neutrophils # (Auto) 11.0H, Lymphocytes # (Auto) 1.0L, Monocytes # (Auto) 0.8, Eosinophils # (Auto) 0.0, Basophils # (Auto) 0.0, Nucleated Red Blood Cells % (auto) 0.0, Prothrombin Time 16.9H, Prothromb Time International Ratio 1.34, Activated Partial Thromboplast Time 46.8H, Anion Gap 10, Glomerular Filtration Rate > 60.0, Osmolality 267L, Lactic Acid Level 1.7, Calcium Level 8.5L, Total Creatine Kinase 191, Creatine Kinase MB 5.1H, Creatine Kinase MB Relative Index 2.67, Troponin I < 0.02, Thyroid Stimulating Hormone (TSH) 3.600, Urine Opiates Screen NEGATIVE, Urine Methadone Screen NEGATIVE, Urine Barbiturates Screen NEGATIVE, Urine Phencyclidine Screen NEGATIVE, Urine Amphetamines Screen NEGATIVE, Urine Benzodiazepines Screen NEGATIVE, Urine Cocaine Metabolite Screen NEGATIVE, Urine Cannabinoids Screen NEGATIVE, Ethyl Alcohol Level 0.004 08/24/20 05:17: Bedside Glucose (Misc Panel) 369H 08/24/20 05:53: Urine Color REDH, Urine Appearance HAZY, Urine pH 6.0, Urine Specific [place] 1 .012, Urine Protein 2+H, Urine Glucose (UA) 3+H, Urine Ketones 1+H, Urine Blood 3+H, Urine Nitrite NEGATIVE, Urine Bilirubin NEGATIVE, Urine Urobilinogen 0.2, Urine Leukocyte Esterase NEGATIVE, Urine WBC (Auto) 10H, Urine RBC (Auto) TNTCH, Urine Hyaline Casts (Auto) 0, Urine Bacteria (Auto) NEGATIVE, Urine Squamous Epithelial Cells 0, Urine Sperm (Auto) 08/24/20 06:16: Urine Random Osmolality 355L, Urine Random Sodium 13 08/24/20 09:21: Anion Gap 10, Glomerular Filtration Rate > 60.0, Calcium Level 8.5L 08/24/20 09:45: Bedside Glucose (Misc Panel) 323H 08/24/20 12:24: Anion Gap 9, Glomerular Filtration Rate > 60.0, Calcium Level 8.6L 08/24/20 12:47: Urine Color YELLOW, Urine Appearance CLEAR, Urine pH 7.0, Urine Specific [place] 1.007, Urine Protein 1+H, Urine Glucose (UA) 3+H, Urine Ketones TRACEH, Urine Blood 3+H, Urine Nitrite NEGATIVE, Urine Bilirubin NEGATIVE, Urine Urobilinogen 0.2, Urine Leukocyte Esterase NEGATIVE, Urine WBC (Auto) 9H, Urine RBC (Auto) 45H, Urine Hyaline Casts (Auto) 0, Urine Bacteria (Auto) NEGATIVE, Urine Squamous Epithelial Cells 0, Urine Sperm (Auto) 08/24/20 12:49: Bedside Glucose (Misc Panel) 396H CBC/BMP Laboratory Tests 08/24/20 05:11 08/24/20 09:21 08/24/20 12:24 Home Medications Scheduled Allopurinol (Allopurinol) 100 Mg Tab, 50 MG PO Q2D Ammonium Lactate (Ammonium Lactate) 12% Lotion, 1 DOSE TOP DAILY APPLY TO FEET Aspirin (Aspirin EC) 81 Mg Tablet.dr, 81 MG PO DAILY Budesonide/Formoterol (Symbicort 80-4.5 Mcg Inhaler) 60 Puff/Inhaler Aers, 2 PUFF INH BID Bupropion HCl (Bupropion Xl) 300 Mg Tab.er.24h, 300 MG PO DAILY Cholecalciferol (Vitamin D3) (Vitamin D3) 1,000 Unit Tablet, 1,000 UNITS PO DAILY Cyanocobalamin (Vitamin B-12) (Vitamin B-12) 1,000 Mcg Tab, 1,000 MCG PO DAILY Dabigatran Etexilate Mesylate (Pradaxa) 150 Mg Capsule, 150 MG PO BID Esomeprazole Magnesium (Esomeprazole Magnesium) 40 Mg Capsule.dr, 40 MG PO DAILY Fluoxetine Hcl (Fluoxetine HCl) 20 Mg Cap, 20 MG PO DAILY Folic Acid (Folic Acid) 0.4 Mg Tablet, 400 MCG PO DAILY Gluc Coombs/Chondro Coombs A/Vit C/Mn (Glucosamine Chondroitin Tab) 1 Each Tablet, 1 TAB PO BID Insulin Degludec (Tresiba Flextouch U-100) 100 Unit/Ml Inj, 14 UNIT SC DAILY Insulin Human Lispro (Humalog) 1 Units/0.01 Ml Inj, 1 DOSE SC ACHS PER SLIDING SCALE Lisinopril (Lisinopril) 20 Mg Tab, 20 MG PO DAILY Magnesium Oxide (Magnesium Oxide) 400 Mg Tablet, 400 MG PO TID Metoprolol Succinate (Metoprolol Succinate) 50 Mg Tab.er.24h, 50 MG PO BID Milk Thistle Seed Extract (Milk Thistle) 200 Mg Capsule, 200 MG PO DAILY Multivitamins (Thera M Plus Tablet) 1 Each Tablet, 1 TAB PO DAILY Pravastatin Sodium (Pravachol) 20 Mg Tab, 20 MG PO DAILY Scheduled PRN Ciclopirox Olamine (Ciclopirox) 15 Gm Cream..g., 1 DOSE TOP TID PRN for RASH APPLY TO GROIN Mometasone Furoate (Mometasone Furoate) 50 Mcg/Act Spr, 2 PUFF NA DAILY PRN for NASAL CONGESTION Sildenafil Citrate (Viagra) 100 Mg Tab, 100 MG PO DAILY PRN for ERECTILE DYSFUNCTION Miscellaneous Medications [Patient Comment] UNABLE TO VERIFY MEDICATIONS WITH PATIENT - MED LIST OBTAINED FROM EXTERNAL MED HX AND PREVIOUS CLINIC VISIT Allergies Coded Allergies: No Known Allergies (Verified , 01/01/19) GAYATRI BOSWELL MD Aug 24, 2020 15:33
--- NOTE | 2020-08-24 15:37 | DS.PDOC ---
Discharge Summary General Date of Admission Aug 24, 2020 at 08:21 Date of Discharge 08/24/2020 Discharge Summary PROCEDURES PERFORMED DURING STAY: [None]. ADMITTING DIAGNOSES / DISCHARGE DIAGNOSES: Hypotonic Hyponatremia - possibly 2/2 hypovolemic etiology Elevated Cr on CKD3 Frequent falls / Gait instability Left leg swelling HTN Diastolic CHF / Alcoholic cardiomyopathy / Pulmonary HTN Paroxysmal A. fib DLP IDDM2 Chronic COPD Depression Neuropathy / Chronic pain 2/2 DDD Gout Diabetic ulcer of L foot GERD DVT prophylaxis COMPLICATIONS/CHIEF COMPLAINT: Falls HISTORY OF PRESENT ILLNESS / HOSPITAL COURSE: Patient is a 70-year-old male with a PMHx of HTN, Diastolic CHF, Alcoholic cardiomyopathy, Pulmonary HTN, Paroxysmal A. fib, DLP, IDDM2, CKD3, COPD, Depression, Neuropathy, Chronic pain 2/2 DDD, Gout, Diabetic ulcer of L foot who presented to the hospital after he fallen out of a taxi. Patient reports that 3-4 days ago he had fallen and hit his head. Patient reported that he slipped and fell out of a taxi and came to the emergency room today. Patient reports he did hit his head in the emergency room, he has received abe for his laceration. Patient was admitted to the hospital service for further evaluation and treatment. At 3 PM today, patient had reported that he didn't want to remain in the hospital and wanted to leave that he can take care of his mother and . Patient was fully oriented to person, place and time was aware if with the president was was capable of making his own decisions. He has filled out AMA paperwork risks and benefits were advised to and including worsening of his medical condition, disability and/or . Patient has been advised to follow-up with primary care provider within the next 7 days and remain complaint with treatment plan and medications. He's been advised to return to the emergency room if he experiences any problems. DISCHARGE MEDICATIONS: Please see below. ALLERGIES: Please see below. DISPOSITION: Left AGAINST MEDICAL ADVICE Vital Signs/I&Os Vital Signs Date Time Temp Pulse Resp B/P (MAP) Pulse Ox O2 Delivery O2 Flow Rate FiO2 08/24/20 10:38 82 127/67 08/24/20 09:30 98.6 20 100 Room Air Laboratory Data Labs 24H Laboratory Tests 2 08/24/20 05:11: Immature Granulocyte % (Auto) 0.5, Neutrophils (%) (Auto) 85.1H, Lymphocytes (%) (Auto) 7.6L, Monocytes (%) (Auto) 6.4H, Eosinophils (%) (Auto) 0.2, Basophils (%) (Auto) 0.2, Neutrophils # (Auto) 11.0H, Lymphocytes # (Auto) 1.0L, Monocytes # (Auto) 0.8, Eosinophils # (Auto) 0.0, Basophils # (Auto) 0.0, Nucleated Red Blood Cells % (auto) 0.0, Prothrombin Time 16.9H, Prothromb Time International Ratio 1.34, Activated Partial Thromboplast Time 46.8H, Anion Gap 10, Glomerular Filtration Rate > 60.0, Osmolality 267L, Lactic Acid Level 1.7, Calcium Level 8.5L, Total Creatine Kinase 191, Creatine Kinase MB 5.1H, Creatine Kinase MB Relative Index 2.67, Troponin I < 0.02, Thyroid Stimulating Hormone (TSH) 3.600, Urine Opiates Screen NEGATIVE, Urine Methadone Screen NEGATIVE, Urine Barbiturates Screen NEGATIVE, Urine Phencyclidine Screen NEGATIVE, Urine Amphetamines Screen NEGATIVE, Urine Benzodiazepines Screen NEGATIVE, Urine Cocai ne Metabolite Screen NEGATIVE, Urine Cannabinoids Screen NEGATIVE, Ethyl Alcohol Level 0.004 08/24/20 05:17: Bedside Glucose (Misc Panel) 369H 08/24/20 05:53: Urine Color REDH, Urine Appearance HAZY, Urine pH 6.0, Urine Specific [place] 1.012, Urine Protein 2+H, Urine Glucose (UA) 3+H, Urine Ketones 1+H, Urine Blood 3+H, Urine Nitrite NEGATIVE, Urine Bilirubin NEGATIVE, Urine Urobilinogen 0.2, Urine Leukocyte Esterase NEGATIVE, Urine WBC (Auto) 10H, Urine RBC (Auto) TNTCH, Urine Hyaline Casts (Auto) 0, Urine Bacteria (Auto) NEGATIVE, Urine Squamous Epithelial Cells 0, Urine Sperm (Auto) 08/24/20 06:16: Urine Random Osmolality 355L, Urine Random Sodium 13 08/24/20 09:21: Anion Gap 10, Glomerular Filtration Rate > 60.0, Calcium Level 8.5L 08/24/20 09:45: Bedside Glucose (Misc Panel) 323H 08/24/20 12:24: Anion Gap 9, Glomerular Filtration Rate > 60.0, Calcium Level 8.6L 08/24/20 12:47: Urine Color YELLOW, Urine Appearance CLEAR, Urine pH 7.0, Urine Specific [place] 1.007, Urine Protein 1+H, Urine Glucose (UA) 3+H, Urine Ketones TRACEH, Urine Blood 3+H, Urine Nitrite NEGATIVE, Urine Bilirubin NEGATIVE, Urine Urobilinogen 0.2, Urine Leukocyte Esterase NEGATIVE, Urine WBC (Auto) 9H, Urine RBC (Auto) 45H, Urine Hyaline Casts (Auto) 0, Urine Bacteria (Auto) NEGATIVE, Urine Squamous Epithelial Cells 0, Urine Sperm (Auto) 08/24/20 12:49: Bedside Glucose (Misc Panel) 396H CBC/BMP Laboratory Tests 08/24/20 05:11 08/24/20 09:21 08/24/20 12:24 FSBS Laboratory Tests Test 08/24/20 05:17 08/24/20 09:45 08/24/20 12:49 Range/Units Bedside Glucose (Misc Panel) 369 323 396 83-110 MG/DL Discharge Medications Scheduled Allopurinol (Allopurinol) 100 Mg Tab, 50 MG PO Q2D, (Reported) Ammonium Lactate (Ammonium Lactate) 12% Lotion, 1 DOSE TOP DAILY, (Reported) APPLY TO FEET Aspirin (Aspirin EC) 81 Mg Tablet.dr, 81 MG PO DAILY, (Reported) Budesonide/Formoterol (Symbicort 80-4.5 Mcg Inhaler) 60 Puff/Inhaler Aers, 2 PUFF INH BID, (Reported) Bupropion HCl (Bupropion Xl) 300 Mg Tab.er.24h, 300 MG PO DAILY, (Reported) Cholecalciferol (Vitamin D3) (Vitamin D3) 1,000 Unit Tablet, 1,000 UNITS PO DAILY, (Reported) Cyanocobalamin (Vitamin B-12) (Vitamin B-12) 1,000 Mcg Tab, 1,000 MCG PO DAILY, (Reported) Dabigatran Etexilate Mesylate (Pradaxa) 150 Mg Capsule, 150 MG PO BID, (Reported) Esomeprazole Magnesium (Esomeprazole Magnesium) 40 Mg Capsule.dr, 40 MG PO DAILY, (Reported) Fluoxetine Hcl (Fluoxetine HCl) 20 Mg Cap, 20 MG PO DAILY, (Reported) Folic Acid (Folic Acid) 0.4 Mg Tablet, 400 MCG PO DAILY, (Reported) Gluc Coombs/Chondro Coombs A/Vit C/Mn (Glucosamine Chondroitin Tab) 1 Each Tablet, 1 TAB PO BID, (Reported) Insulin Degludec (Tresiba Flextouch U-100) 100 Unit/Ml Inj, 14 UNIT SC DAILY, (Reported) Insulin Human Lispro (Humalog) 1 Units/0.01 Ml Inj, 1 DOSE SC ACHS, (Reported) PER SLIDING SCALE Lisinopril (Lisinopril) 20 Mg Tab, 20 MG PO DAILY, (Reported) Magnesium Oxide (Magnesium Oxide) 400 Mg Tablet, 400 MG PO TID, (Reported) Metoprolol Succinate (Metoprolol Succinate) 50 Mg Tab.er.24h, 50 MG PO BID, (Reported) Milk Thistle Seed Extract (Milk Thistle) 200 Mg Capsule, 200 MG PO DAILY, (Reported) Multivitamins (Thera M Plus Tablet) 1 Each Tablet, 1 TAB PO DAILY, (Reported) Pravastatin Sodium (Pravachol) 20 Mg Tab, 20 MG PO DAILY, (Reported) Scheduled PRN Ciclopirox Olamine (Ciclopirox) 15 Gm Cream..g., 1 DOSE TOP TID PRN for RASH, (Reported) APPLY TO GROIN Mometasone Furoate (Mometasone Furoate) 50 Mcg/Act Spr, 2 PUFF NA DAILY PRN for NASAL CONGESTION, (Reported) Sildenafil Citrate (Viagra) 100 Mg Tab, 100 MG PO DAILY PRN for ERECTILE DYSFUNCTION, (Reported) Miscellaneous Medications [Patient Comment] , (Reported) UNABLE TO VERIFY MEDICATIONS WITH PATIENT - MED LIST OBTAINED FROM EXTERNAL MED HX AND PREVIOUS CLINIC VISIT Allergies Coded Allergies: No Known Allergies (Verified , 01/01/19) GAYATRI BOSWELL MD Aug 24, 2020 15:37
[2020-08-24 18:00] VITALS: BP 140/72
--- NOTE | 2020-08-24 19:36 | REPVR ---
PROCEDURE INFORMATION: Exam: CT Head Without Contrast Exam date and time: 08/24/2020 6:50 PM Age: 70 years old Clinical indication: Pain; Headache; Prior surgery; Additional info: Confusion TECHNIQUE: Imaging protocol: Computed tomography of the head without contrast. Radiation optimization: All CT scans at this facility use at least one of these dose optimization techniques: automated exposure control; mA and/or kV adjustment per patient size (includes targeted exams where dose is matched to clinical indication); or iterative reconstruction. COMPARISON: CT Head without contrast 08/24/2020 5:21 AM FINDINGS: Brain: There is no CT evidence for an acute large vessel territorial infarct. No acute intracranial hemorrhage is seen. No mass effect, midline shift, or herniation is noted. There are non-specific foci of low attenuation in the periventricular and subcortical white matter, which are likely the sequela of chronic small vessel ischemic injury and are similar in appearance compared to the prior CT on 08/24/2020 5:21 AM. Cerebral ventricles: The ventricles are mildly to moderately dilated in proportion to the sulci, which is compatible with mild to moderate generalized cerebral volume loss that is similar in appearance compared to the prior CT on 08/24/2020 5:21 AM. Bones/joints: No acute skull fracture is noted. There are no bony destructive changes. There is an occipital spur. Paranasal sinuses: There is mild mucosal thickening in the left maxillary sinus. No air-fluid levels are noted in the sinuses. Mastoid air cells: Clear. Orbital cavity: Postoperative changes are noted from a repair of the left orbital floor. The globes are intact and normal in appearance. Soft tissues: There are skin abe in the right posterior superior aspect of the head. The soft tissue swelling in this region has decreased compared to the prior CT on 08/24/2020 5:21 AM. IMPRESSION: No acute intracranial abnormality. Electronically signed by: Umesh Castro On 08/24/2020 19:35:53 PM
[2020-08-24 19:59] LABS: BLOOD UREA NITROGEN 20 MG/DL (7-18); CALCIUM LEVEL 9.1 MG/DL (8.8-10.2); CARBON DIOXIDE LEVEL 26 MEQ/L (21-32); CHLORIDE LEVEL 94 MEQ/L (98-107); CREATININE FOR GFR 1.17 MG/DL (0.70-1.30); GLOMERULAR FILTRATION RATE > 60.0 (>42); GLUCOSE, FASTING 285 MG/DL (70-100); POTASSIUM SERUM 4.5 MEQ/L (3.5-5.1); SODIUM LEVEL 126 MEQ/L (136-145)
[2020-08-24 20:00] VITALS: BP 145/65
[2020-08-25 04:00] VITALS: BP 120/60
[2020-08-25 05:29] LABS: BASO % 0.2 % (0.0-1.0); HEMATOCRIT 30.3 % (42.0-52.0); HEMOGLOBIN 10.2 g/dl (13.5-17.5); LYMPH % 9.9 % (24.0-44.0); MEAN CORPUSCULAR HEMOGLOBIN 27.3 pg (27.0-33.0); MEAN CORPUSCULAR HGB CONC 33.7 g/dl (32.0-36.5); MONO # 1.3 10^3/uL (0.0-0.8); MONO % 12.8 % (0.0-5.0); NEUTROPHILS # 7.8 10^3/uL (1.5-8.5); NEUTROPHILS % 76.7 % (36.0-66.0); PLATELET COUNT, AUTOMATED 242 10^3/uL (150-450); RED BLOOD COUNT 3.74 10^6/uL (4.30-6.10); WHITE BLOOD COUNT 10.1 10^3/uL (4.0-10.0)
[2020-08-25 05:50] LABS: BLOOD UREA NITROGEN 19 MG/DL (7-18); CALCIUM LEVEL 8.8 MG/DL (8.8-10.2); CARBON DIOXIDE LEVEL 27 MEQ/L (21-32); CHLORIDE LEVEL 95 MEQ/L (98-107); CREATININE FOR GFR 0.84 MG/DL (0.70-1.30); GLOMERULAR FILTRATION RATE > 60.0 (>42); GLUCOSE, FASTING 223 MG/DL (70-100); MAGNESIUM LEVEL 1.4 MG/DL (1.8-2.4); POTASSIUM SERUM 3.7 MEQ/L (3.5-5.1); SODIUM LEVEL 128 MEQ/L (136-145)
[2020-08-25] MEDS: NS 1,000 ML IV SCH ×2 (06:13→15:49)
[2020-08-25] MEDS: MAG SULF 1GM/100ML (MAG RUN) 1 GM in IV 1 EA IV SCH ×3 (06:13→11:42)
[2020-08-25] MEDS: SYMBICORT 80/4.5MCG INHALER 6GM INH SCH ×2 (07:48→18:19)
[2020-08-25 08:00] VITALS: BP 145/98
--- NOTE | 2020-08-25 09:15 | IPNPDOC ---
Text Note Date of Service The patient was seen on 08/25/20. NOTE Subjective: Patient is a 70-year-old male with a PMHx of HTN, Diastolic CHF, Alcoholic cardiomyopathy, Pulmonary HTN, Paroxysmal A. fib, DLP, IDDM2, CKD3, COPD, Depression, Neuropathy, Chronic pain 2/2 DDD, Gout, Diabetic ulcer of L foot who presented to the hospital after he fallen out of a taxi. Patient reports that 3-4 days ago he had fallen and hit his head. Patient reported that he slipped and fell out of a taxi and came to the emergency room today. Patient reports he did hit his head; he has received abe for his laceration in the ER. Patient has been admitted to the hospitalist service for hyponatremia and falls.. Patient was seen and examined at the bedside. Patient denies any chest pain, shortness breath or palpitations. Denies any nausea, vomiting, abdominal pain or diarrhea. Objective: Vitals (See below) General: Lying in bed, is in no acute distress, remains comfortable, AAOx3 (remains fully oriented) HEENT: NC, AT CVS: RRR, +S1S2 Lungs: Fair air entry b/l, no appreciable wheezing, rhonchi or rales Abdomen: Soft, nondistended and nontender Extremities: No evidence of edema, - Calf tenderness Assessment and plan: Hypotonic Hyponatremia - possibly 2/2 hypovolemic etiology - likely 2/2 medications (More likely Fluoxetine, less likely Bupropion) - Physical appears to reveal hypovolemia/euvolemic; no signs of fluid overload - Sodium has improved appropriately - Cr baseline appears to run 0.7-0.8; Cr is approaching normal - TSH noted - Will check cortisol level - Will continue to follow BMP [id number] - c/w IV fluid hydration for now s/p Elevated Cr on CKD3 - c/w IV fluid hydration Frequent falls / Gait instability - Will have fall precautions in place - c/w PT and OT Left leg swelling - Duplex US of L leg 08/25: No evidence of deep venous thrombosis of the left lower extremity femoral popliteal venous system. HTN - BP well controlled - c/w Lisinopril and Metoprolol with hold parameters Diastolic CHF / Alcoholic cardiomyopathy / Pulmonary HTN - No evidence of exacerbation - Not on diuretics as an outpatient Paroxysmal A. fib - c/w rate control with metoprolol - Full anticoagulation with Zohreh held (re: hematuria / head laceration) DLP - c/w Pravastatin IDDM2 - c/w ISS and Levemir Chronic COPD - No evidence of exacerbation - c/w Inhaled therapy as ordered Neuropathy / Chronic pain 2/2 DDD - c/w Tylenol PRN Mood disorder - Will hold Bupropion / Fluoxetine (re: Hyponatremia) Gout - c/w Allopurinol Diabetic ulcer of L foot - Patient follows with Dr. Woodard as an outpatient - c/w dressing changes as per outpatient regimen GERD - c/w Omeprazole DVT prophylaxis - Full anticoagulation with Zohreh held (re: hematuria / head laceration) - c/w TEDs/ Sequentials VS,Fishbone, I+O VS, Fishbone, I+O Laboratory Tests 08/24/20 09:21 08/24/20 12:24 08/24/20 19:10 08/25/20 05:12 Vital Signs Date Time Temp Pulse Resp B/P (MAP) Pulse Ox O2 Delivery O2 Flow Rate FiO2 08/25/20 08:00 98.7 91 18 145/98 (114) 97 Room Air I&O- Last 24 Hours up to 6 AM 08/25/20 06:00 Intake Total 1940 ml Output Total 400 ml Balance 1540 ml GAYATRI BOSWELL MD Aug 25, 2020 09:15
[2020-08-25 09:39] LABS: BLOOD UREA NITROGEN 17 MG/DL (7-18); CALCIUM LEVEL 9.4 MG/DL (8.8-10.2); CARBON DIOXIDE LEVEL 30 MEQ/L (21-32); CHLORIDE LEVEL 96 MEQ/L (98-107); GLOMERULAR FILTRATION RATE > 60.0 (>42); GLUCOSE, FASTING 241 MG/DL (70-100); POTASSIUM SERUM 3.8 MEQ/L (3.5-5.1); SODIUM LEVEL 131 MEQ/L (136-145)
[2020-08-25] MEDS: HumaLOG INSULIN (NovoLOG) PER UNIT SC SCH ×4 (09:55→20:22)
[2020-08-25] MEDS: MAGNESIUM OXIDE 400 MG TAB (MAG-OX) PO SCH ×3 (09:56→20:26)
[2020-08-25] MEDS: METOPROLOL SUCC (TopROL XL) 50MG **XL** TAB PO SCH ×2 (09:56→20:25)
[2020-08-25] MEDS: MULTIVITAMINS/MINERALS THERAP 1 TAB PO SCH (09:56)
[2020-08-25] MEDS: OMEPRAZOLE 20 MG CAP PO SCH (09:56)
[2020-08-25] MEDS: LACTIC ACID 12% LOTION 225 GM BTL TOP SCH (09:57)
[2020-08-25] MEDS: CYANOCOBALAMIN 500 MCG TAB PO SCH (09:57)
[2020-08-25] MEDS: PRAVASTATIN 20 MG TAB PO SCH (09:57)
[2020-08-25] MEDS: VITAMIN D 1,000 INTERNATIONAL UNITS TABLET PO SCH (09:57)
[2020-08-25] MEDS: ASPIRIN 81 MG ENTERIC TAB PO SCH (09:57)
[2020-08-25] MEDS: lisinopriL 20 MG TAB PO SCH (09:57)
[2020-08-25] MEDS: LEVEMIR (INSULIN DETEMIR) 1 UNITS/0.01ML SC SCH (09:58)
[2020-08-25 12:00] VITALS: BP 148/75
[2020-08-25 13:42] LABS: BLOOD UREA NITROGEN 18 MG/DL (7-18); CALCIUM LEVEL 8.6 MG/DL (8.8-10.2); CARBON DIOXIDE LEVEL 26 MEQ/L (21-32); CHLORIDE LEVEL 95 MEQ/L (98-107); CREATININE FOR GFR 0.88 MG/DL (0.70-1.30); GLOMERULAR FILTRATION RATE > 60.0 (>42); GLUCOSE, FASTING 266 MG/DL (70-100); SODIUM LEVEL 129 MEQ/L (136-145)
[2020-08-25] MEDS: ACETAMINOPHEN TAB 650MG DOSE (2X325MG) PO PRN (15:31)
[2020-08-25] MEDS ORDERED: SLF 3 ML SYR IV PRN (15:45)
[2020-08-25 16:00] VITALS: BP 130/68
--- NOTE | 2020-08-25 16:11 | REP ---
INDICATION: Fever. COMPARISON: 08/24/2020. TECHNIQUE: Single frontal portable view of the chest is performed. FINDINGS: There is no acute infiltrate. Heart is normal in size. Mediastinal silhouette is unchanged. IMPRESSION: No acute infiltrate. <Electronically signed by Deandre Otero > 08/25/20 [id number]
[2020-08-25 19:06] LABS: BLOOD UREA NITROGEN 16 MG/DL (7-18); CALCIUM LEVEL 8.7 MG/DL (8.8-10.2); CARBON DIOXIDE LEVEL 26 MEQ/L (21-32); CHLORIDE LEVEL 98 MEQ/L (98-107); CREATININE FOR GFR 0.89 MG/DL (0.70-1.30); GLOMERULAR FILTRATION RATE > 60.0 (>42); GLUCOSE, FASTING 112 MG/DL (70-100); MAGNESIUM LEVEL 2.1 MG/DL (1.8-2.4); POTASSIUM SERUM 3.1 MEQ/L (3.5-5.1); SODIUM LEVEL 131 MEQ/L (136-145)
[2020-08-25 20:00] VITALS: BP 108/62
[2020-08-25] MEDS ORDERED: POTASSIUM CHLORIDE 10 MEQ SR TABLET PO ONE (20:00)
[2020-08-25] MEDS: CEFDINIR 300 MG CAP (OMNICEF) PO SCH (20:25)
[2020-08-25] MEDS: SLF 3 ML SYR IV SCH ×2 (22:00→22:33)
[2020-08-25 22:47] LABS: BLOOD UREA NITROGEN 17 MG/DL (7-18); CALCIUM LEVEL 8.4 MG/DL (8.8-10.2); CARBON DIOXIDE LEVEL 27 MEQ/L (21-32); CHLORIDE LEVEL 98 MEQ/L (98-107); CREATININE FOR GFR 0.89 MG/DL (0.70-1.30); GLOMERULAR FILTRATION RATE > 60.0 (>42); GLUCOSE, FASTING 111 MG/DL (70-100); POTASSIUM SERUM 3.4 MEQ/L (3.5-5.1); SODIUM LEVEL 130 MEQ/L (136-145)
[2020-08-26] VITALS: BP 137/74
[2020-08-26 01:46] LABS: BLOOD UREA NITROGEN 18 MG/DL (7-18); CARBON DIOXIDE LEVEL 26 MEQ/L (21-32); CHLORIDE LEVEL 100 MEQ/L (98-107); CREATININE FOR GFR 0.78 MG/DL (0.70-1.30); GLOMERULAR FILTRATION RATE > 60.0 (>42); GLUCOSE, FASTING 178 MG/DL (70-100); POTASSIUM SERUM 4.1 MEQ/L (3.5-5.1); SODIUM LEVEL 131 MEQ/L (136-145)
[2020-08-26 04:00] VITALS: BP 117/65
[2020-08-26 05:22] LABS: BASO % 0.1 % (0.0-1.0); EOS % 0.2 % (0.0-3.0); HEMATOCRIT 27.3 % (42.0-52.0); HEMOGLOBIN 8.9 g/dl (13.5-17.5); LYMPH # 0.9 10^3/uL (1.5-5.0); LYMPH % 9.3 % (24.0-44.0); MEAN CORPUSCULAR HEMOGLOBIN 27.1 pg (27.0-33.0); MEAN CORPUSCULAR HGB CONC 32.6 g/dl (32.0-36.5); MONO # 1.1 10^3/uL (0.0-0.8); MONO % 11.8 % (0.0-5.0); NEUTROPHILS # 7.4 10^3/uL (1.5-8.5); NEUTROPHILS % 78.1 % (36.0-66.0); PLATELET COUNT, AUTOMATED 251 10^3/uL (150-450); RED BLOOD COUNT 3.29 10^6/uL (4.30-6.10); WHITE BLOOD COUNT 9.4 10^3/uL (4.0-10.0)
[2020-08-26] MEDS: SLF 3 ML SYR IV SCH ×3 (05:45→21:51)
[2020-08-26 05:49] LABS: BLOOD UREA NITROGEN 18 MG/DL (7-18); CALCIUM LEVEL 7.8 MG/DL (8.8-10.2); CARBON DIOXIDE LEVEL 25 MEQ/L (21-32); CHLORIDE LEVEL 100 MEQ/L (98-107); CREATININE FOR GFR 0.79 MG/DL (0.70-1.30); GLOMERULAR FILTRATION RATE > 60.0 (>42); GLUCOSE, FASTING 184 MG/DL (70-100); MAGNESIUM LEVEL 1.8 MG/DL (1.8-2.4); POTASSIUM SERUM 4.2 MEQ/L (3.5-5.1); SODIUM LEVEL 133 MEQ/L (136-145)
[2020-08-26] MEDS: NS 1,000 ML IV SCH (06:35)
[2020-08-26] MEDS: SYMBICORT 80/4.5MCG INHALER 6GM INH SCH ×2 (07:15→20:22)
[2020-08-26 08:00] VITALS: BP 137/82
[2020-08-26] MEDS: OMEPRAZOLE 20 MG CAP PO SCH (08:13)
[2020-08-26] MEDS: ASPIRIN 81 MG ENTERIC TAB PO SCH (08:13)
[2020-08-26] MEDS: LACTIC ACID 12% LOTION 225 GM BTL TOP SCH (08:14)
[2020-08-26] MEDS: LEVEMIR (INSULIN DETEMIR) 1 UNITS/0.01ML SC SCH (08:14)
[2020-08-26] MEDS: HumaLOG INSULIN (NovoLOG) PER UNIT SC SCH ×4 (08:14→21:00)
[2020-08-26] MEDS: MAGNESIUM OXIDE 400 MG TAB (MAG-OX) PO SCH ×3 (08:15→21:58)
[2020-08-26] MEDS: MULTIVITAMINS/MINERALS THERAP 1 TAB PO SCH (08:15)
[2020-08-26] MEDS: CEFDINIR 300 MG CAP (OMNICEF) PO SCH ×2 (08:15→21:58)
[2020-08-26] MEDS: allopurinoL 100 MG TAB PO SCH (08:15)
[2020-08-26] MEDS: VITAMIN D 1,000 INTERNATIONAL UNITS TABLET PO SCH (08:15)
[2020-08-26] MEDS: CYANOCOBALAMIN 500 MCG TAB PO SCH (08:15)
[2020-08-26] MEDS: METOPROLOL SUCC (TopROL XL) 50MG **XL** TAB PO SCH ×2 (08:16→21:59)
[2020-08-26] MEDS: PRAVASTATIN 20 MG TAB PO SCH (08:16)
[2020-08-26] MEDS: lisinopriL 20 MG TAB PO SCH (08:16)
[2020-08-26 08:23] LABS: BILIRUBIN, URINE MANUAL NEGATIVE (NEGATIVE); GLUCOSE, URINE (UA) MANUAL NEGATIVE (NEGATIVE); KETONE, URINE MANUAL NEGATIVE (NEGATIVE); UROBILINOGEN, URINE MANUAL NORMAL (NORMAL)
[2020-08-26 08:25] LABS: GRANULAR CAST, URINE 0-1 /lpf; RBC, URINE TNTC /hpf (0-3); TRANSITIONAL EPI CELLS, URINE MOD AMOUNT /hpf
--- NOTE | 2020-08-26 08:59 | ECHO ---
DATE OF PROCEDURE: 08/24/2020 Age: 70 Gender: Male Height: 74 inches Weight: 165 pounds Body surface area: 2.0 m2 PATIENT LOCATION: Inpatient progressive care unit (PCU), Room 3215. REFERRING PHYSICIAN: Meghann Pimentel M.D. INDICATION: Edema. MEASUREMENTS: 2D Measurements: RV 3.9 cm LV 4.9 cm Septum 1.1 cm Posterior wall 1.0 cm Aortic Root 3.3 cm LA 3.6 cm LVEF 65% Doppler Measurements: AV 1.55 m/s LVOT 0.8 m/s LVOT diameter 2.1 cm MV-E 51, A 96, E/A ratio 0.5 Early mitral deceleration time 180 m/s E prime medial 5.5, A prime medial 9.2, E prime lateral 6 Average E/E prime ratio 8.9/PCWP 12.9 mmHg PV 0.8 m/s Pulmonary artery acceleration time 129 m/s PASP 24 mmHg IVC 1.3 cm COMMENTS: Normal sinus rhythm without intraventricular conduction disturbance. Technically challenging study in light of the patients body habitus, but diagnostically useful information was still obtained. M-mode and two-dimensional echocardiography was performed with pulse, continuous wave, color flow, and tissue Doppler studies. Normal left ventricular size, wall thickness, and wall motion. Left atrial size upper limits of normal with grade 1 left ventricular (LV) diastolic dysfunction with currently normal estimated mean left atrial pressure. Normal right heart chamber sizes and motion and estimated pulmonary arterial pressure. Normal inferior vena cava (IVC) size and collapse against an elevated central venous pressure. Normal aortic dimensions. Mild aortic valvular sclerosis with very mild to mild insufficiency, but no stenosis. Normal appearing mitral valvular apparatus without functional abnormality. Normal appearing tricuspid valve with trace insufficiency. No apparent intracardiac mass or pericardial effusion. MTDD
[2020-08-26 10:16] LABS: BLOOD UREA NITROGEN 17 MG/DL (7-18); CALCIUM LEVEL 8.8 MG/DL (8.8-10.2); CARBON DIOXIDE LEVEL 18 MEQ/L (21-32); CHLORIDE LEVEL 101 MEQ/L (98-107); CREATININE FOR GFR 0.92 MG/DL (0.70-1.30); GLOMERULAR FILTRATION RATE > 60.0 (>42); GLUCOSE, FASTING 172 MG/DL (70-100); POTASSIUM SERUM 5.2 MEQ/L (3.5-5.1); SODIUM LEVEL 130 MEQ/L (136-145)
--- NOTE | 2020-08-26 10:45 | IPNPDOC ---
Text Note Date of Service The patient was seen on 08/26/20. NOTE Subjective: Patient is a 70-year-old male with a PMHx of HTN, Diastolic CHF, Alcoholic cardiomyopathy, Pulmonary HTN, Paroxysmal A. fib, DLP, IDDM2, CKD3, COPD, Depression, Neuropathy, Chronic pain 2/2 DDD, Gout, Diabetic ulcer of L foot who presented to the hospital after he fallen out of a taxi. Patient reports that 3-4 days ago he had fallen and hit his head. Patient reported that he slipped and fell out of a taxi and came to the emergency room today. Patient reports he did hit his head; he has received abe for his laceration in the ER. Patient has been admitted to the hospitalist service for hyponatremia and falls.. Patient was seen and examined at the bedside. Currently patient denies any chest pain, shortness breath or palpitations. Has been up ambulating with physical therapy. Denies any nausea, vomiting, abdominal pain or diarrhea. Objective: Vitals (See below) General: Seen ambulating with physical therapy, does not appear to be any acute distress, awake, alert and oriented 3 HEENT: NC, AT CVS: RRR, +S1S2 Lungs: There appears to be fair air entry bilaterally without any auscultated rhonchi, crackles or wheezing Abdomen: Remains soft without any distention or tenderness Extremities: Lower extremities are without any edema, - Calf tenderness Assessment and plan: Hypotonic Hyponatremia - possibly 2/2 hypovolemic etiology - likely 2/2 extra- renal losses (decrease PO intake), possibly 2/2 medications (More likely Fluoxetine, less likely Bupropion) - Physical appears to reveal hypovolemia/euvolemic; no signs of fluid overload - Sodium has improved appropriately - Cr baseline appears to run 0.7-0.8; Cr is approaching normal - TSH noted / Cortisol level noted - Will continue to follow BMP [id number] - c/w IV fluid hydration for now Hematuria - possibly 2/2 UTI - Pradaxa held - UA consistent with possible infection; urine culture pending - c/w Cefdinir (Day #2) - Will need outpatient follow up with Urology s/p Elevated Cr on CKD3 - c/w IV fluid hydration Frequent falls / Gait instability - Will have fall precautions in place - c/w PT and OT Left leg swelling - Duplex US of L leg 11/4: No evidence of deep venous thrombosis of the left lower extremity femoral popliteal venous system. HTN - BP well controlled - c/w Lisinopril and Metoprolol with hold parameters Diastolic CHF / Alcoholic cardiomyopathy / Pulmonary HTN - No evidence of exacerbation - Not on diuretics as an outpatient Paroxysmal A. fib - c/w rate control with metoprolol - Full anticoagulation with Pradaxa held (re: hematuria / head laceration) -- Discussed risks / benefits; increased risk of stroke - patient verbalized understanding DLP - c/w Pravastatin IDDM2 - c/w ISS and Levemir Chronic COPD - No evidence of exacerbation - c/w Inhaled therapy as ordered Neuropathy / Chronic pain 2/2 DDD - c/w Tylenol PRN Mood disorder - Will hold Bupropion / Fluoxetine (re: Hyponatremia) - Will have outpatient follow up with Psychiatry Gout - c/w Allopurinol Diabetic ulcer of L foot - Patient follows with Dr. Woodard as an outpatient - c/w dressing changes as per outpatient regimen GERD - c/w Omeprazole DVT prophylaxis - Full anticoagulation with Pradaxa held (re: hematuria / head laceration) - c/w TEDs/ Sequentials VS,Fishbone, I+O VS, Fishbone, I+O Laboratory Tests 08/25/20 12:45 08/25/20 17:29 08/25/20 20:55 08/26/20 01:08 08/26/20 04:42 08/26/20 09:38 Vital Signs Date Time Temp Pulse Resp B/P (MAP) Pulse Ox O2 Delivery O2 Flow Rate FiO2 08/26/20 08:16 84 137/82 08/26/20 08:00 98.3 18 96 Room Air I&O- Last 24 Hours up to 6 AM 08/26/20 06:00 Intake Total 1265 ml Output Total 0 ml Balance 1265 ml GAYATRI BOSWELL MD Aug 26, 2020 10:45
[2020-08-26 12:00] VITALS: BP 132/71
[2020-08-26] MEDS: ACETAMINOPHEN TAB 650MG DOSE (2X325MG) PO PRN (12:20)
[2020-08-26 13:43] LABS: BLOOD UREA NITROGEN 18 MG/DL (7-18); CALCIUM LEVEL 8.2 MG/DL (8.8-10.2); CARBON DIOXIDE LEVEL 25 MEQ/L (21-32); CHLORIDE LEVEL 101 MEQ/L (98-107); CREATININE FOR GFR 0.86 MG/DL (0.70-1.30); GLOMERULAR FILTRATION RATE > 60.0 (>42); GLUCOSE, FASTING 160 MG/DL (70-100); POTASSIUM SERUM 4.2 MEQ/L (3.5-5.1); SODIUM LEVEL 133 MEQ/L (136-145)
[2020-08-26 16:00] VITALS: BP 127/68
[2020-08-26 18:21] LABS: BLOOD UREA NITROGEN 17 MG/DL (7-18); CARBON DIOXIDE LEVEL 25 MEQ/L (21-32); CHLORIDE LEVEL 100 MEQ/L (98-107); CREATININE FOR GFR 0.81 MG/DL (0.70-1.30); GLOMERULAR FILTRATION RATE > 60.0 (>42); GLUCOSE, FASTING 77 MG/DL (70-100); POTASSIUM SERUM 4.1 MEQ/L (3.5-5.1); SODIUM LEVEL 132 MEQ/L (136-145)
[2020-08-26 19:00] VITALS: BP 145/65
[2020-08-26 22:26] LABS: BLOOD UREA NITROGEN 17 MG/DL (7-18); CALCIUM LEVEL 7.6 MG/DL (8.8-10.2); CARBON DIOXIDE LEVEL 25 MEQ/L (21-32); CHLORIDE LEVEL 100 MEQ/L (98-107); CREATININE FOR GFR 0.89 MG/DL (0.70-1.30); GLOMERULAR FILTRATION RATE > 60.0 (>42); GLUCOSE, FASTING 184 MG/DL (70-100); POTASSIUM SERUM 4.1 MEQ/L (3.5-5.1); SODIUM LEVEL 129 MEQ/L (136-145)
[2020-08-27] MEDS: NS 1,000 ML IV SCH ×2 (00:11→17:58)
[2020-08-27 02:31] LABS: BLOOD UREA NITROGEN 17 MG/DL (7-18); CALCIUM LEVEL 7.5 MG/DL (8.8-10.2); CARBON DIOXIDE LEVEL 24 MEQ/L (21-32); CHLORIDE LEVEL 102 MEQ/L (98-107); CREATININE FOR GFR 0.79 MG/DL (0.70-1.30); GLOMERULAR FILTRATION RATE > 60.0 (>42); GLUCOSE, FASTING 179 MG/DL (70-100); SODIUM LEVEL 132 MEQ/L (136-145)
[2020-08-27 04:00] VITALS: BP 135/65
[2020-08-27] MEDS: SLF 3 ML SYR IV SCH ×3 (05:05→22:00)
[2020-08-27 05:17] LABS: BASO % 0.5 % (0.0-1.0); EOS % 0.3 % (0.0-3.0); HEMATOCRIT 27.4 % (42.0-52.0); HEMOGLOBIN 8.5 g/dl (13.5-17.5); LYMPH # 0.9 10^3/uL (1.5-5.0); LYMPH % 15.5 % (24.0-44.0); MEAN CORPUSCULAR HEMOGLOBIN 27.1 pg (27.0-33.0); MEAN CORPUSCULAR VOLUME 87.3 fl (80.0-96.0); MONO # 0.9 10^3/uL (0.0-0.8); MONO % 14.5 % (0.0-5.0); NEUTROPHILS % 68.7 % (36.0-66.0); PLATELET COUNT, AUTOMATED 226 10^3/uL (150-450); RED BLOOD COUNT 3.14 10^6/uL (4.30-6.10); WHITE BLOOD COUNT 5.9 10^3/uL (4.0-10.0)
[2020-08-27 05:37] LABS: BLOOD UREA NITROGEN 15 MG/DL (7-18); CALCIUM LEVEL 7.4 MG/DL (8.8-10.2); CARBON DIOXIDE LEVEL 20 MEQ/L (21-32); CHLORIDE LEVEL 104 MEQ/L (98-107); CREATININE FOR GFR 0.81 MG/DL (0.70-1.30); GLOMERULAR FILTRATION RATE > 60.0 (>42); GLUCOSE, FASTING 172 MG/DL (70-100); MAGNESIUM LEVEL 1.6 MG/DL (1.8-2.4); POTASSIUM SERUM 4.1 MEQ/L (3.5-5.1); SODIUM LEVEL 133 MEQ/L (136-145)
[2020-08-27] MEDS: SYMBICORT 80/4.5MCG INHALER 6GM INH SCH ×2 (07:08→18:08)
[2020-08-27] MEDS ORDERED: MAG SULF 1GM/100ML (MAG RUN) 1 GM in IV 1 EA IV ONE (07:15)
[2020-08-27] MEDS: HumaLOG INSULIN (NovoLOG) PER UNIT SC SCH ×4 (07:35→21:00)
[2020-08-27 08:00] VITALS: BP 132/62
[2020-08-27 09:06] LABS: BLOOD UREA NITROGEN 16 MG/DL (7-18); CALCIUM LEVEL 8.1 MG/DL (8.8-10.2); CARBON DIOXIDE LEVEL 26 MEQ/L (21-32); CHLORIDE LEVEL 99 MEQ/L (98-107); CREATININE FOR GFR 0.93 MG/DL (0.70-1.30); GLOMERULAR FILTRATION RATE > 60.0 (>42); GLUCOSE, FASTING 325 MG/DL (70-100); SODIUM LEVEL 130 MEQ/L (136-145)
--- NOTE | 2020-08-27 09:45 | REP ---
INDICATION: Left heel draining ulcer. COMPARISON: 06/06/2020 TECHNIQUE: Four views FINDINGS: There is a pathologic fracture of the calcaneus subjacent to soft tissue ulceration seen on the current and previous study. Cyst the junction of the body and anterior process of the calcaneus. The distal fragment is and dorsally. There is loss of cortical continuity of the plantar aspect of the posterior calcaneus. There is air projecting over the ankle joint proper. Talus is without a visible fracture focal lesion. Distal tibia and fibula intact. Tarsal bones intact without acute finding. There is old healed and remodeled fracture of the distal shaft of the 2nd metatarsal. Degenerative changes of 1st MTP and IP joints. Flexion of the 2nd through 5th toes with some degenerative changes. IMPRESSION: Pathologic fracture of the calcaneus secondary to osteomyelitis with the cortical destruction of the plantar cortex of the posterior calcaneus. Fracture is vertically oriented through the junction of the body and anterior process of the calcaneus and there is air density within the ankle joint proper, anterior and posterior to the ankle. This represents osteomyelitis and septic arthritis. Flatfoot deformity and chronic changes of the MTP and IP joints with old healed and remodeled fracture distal shaft 2nd metatarsal. <Electronically signed by Chino Randolph > 08/27/20 0901
[2020-08-27] MEDS: METOPROLOL SUCC (TopROL XL) 50MG **XL** TAB PO SCH ×2 (09:52→22:37)
[2020-08-27] MEDS: ASPIRIN 81 MG ENTERIC TAB PO SCH (09:53)
[2020-08-27] MEDS: VITAMIN D 1,000 INTERNATIONAL UNITS TABLET PO SCH (09:53)
[2020-08-27] MEDS: CYANOCOBALAMIN 500 MCG TAB PO SCH (09:53)
[2020-08-27] MEDS: CEFDINIR 300 MG CAP (OMNICEF) PO SCH ×2 (09:53→22:37)
[2020-08-27] MEDS: OMEPRAZOLE 20 MG CAP PO SCH (09:53)
[2020-08-27] MEDS: MULTIVITAMINS/MINERALS THERAP 1 TAB PO SCH (09:53)
[2020-08-27] MEDS: MAGNESIUM OXIDE 400 MG TAB (MAG-OX) PO SCH ×3 (09:53→22:36)
[2020-08-27] MEDS: PRAVASTATIN 20 MG TAB PO SCH (09:53)
[2020-08-27] MEDS: lisinopriL 20 MG TAB PO SCH (09:53)
[2020-08-27] MEDS: ACETAMINOPHEN TAB 650MG DOSE (2X325MG) PO PRN ×3 (09:55→22:37)
[2020-08-27] MEDS: LEVEMIR (INSULIN DETEMIR) 1 UNITS/0.01ML SC SCH (09:56)
[2020-08-27] MEDS: LACTIC ACID 12% LOTION 225 GM BTL TOP SCH (09:56)
--- NOTE | 2020-08-27 11:05 | IPNPDOC ---
Text Note Date of Service The patient was seen on 08/27/20. NOTE Subjective: Patient is a 70-year-old male with a PMHx of HTN, Diastolic CHF, Alcoholic cardiomyopathy, Pulmonary HTN, Paroxysmal A. fib, DLP, IDDM2, CKD3, COPD, Depression, Neuropathy, Chronic pain 2/2 DDD, Gout, Diabetic ulcer of L foot who presented to the hospital after he fallen out of a taxi. Patient reports that 3-4 days ago he had fallen and hit his head. Patient reported that he slipped and fell out of a taxi and came to the emergency room today. Patient reports he did hit his head; he has received abe for his laceration in the ER. Patient has been admitted to the hospitalist service for hyponatremia and falls.. Patient was seen and examined at the bedside. Patient is alert and oriented and sitting up in bed. Denies any chest pain, shortness breath, palpitations. Denies any nausea, vomiting, abdominal pain or diarrhea. Has been working with physical therapy Objective: Vitals (See below) General: Sitting up in bed, does not appear to be in any acute distress, is awake, alert and oriented x3 HEENT: NC, AT CVS: +S1S2 Lungs: Air entry is fair bilaterally without any evidence of rhonchi, crackles or Abdomen: Abdomen remains soft without any distention or tenderness Extremities: L leg with pitting edema, - Calf tenderness Skin: L heel with draining ulcer - present on admission; remains unchanged Assessment and plan: Hypotonic Hyponatremia - possibly 2/2 hypovolemic etiology - likely 2/2 extra- renal losses (decrease PO intake), possibly 2/2 medications (More likely Fluoxetine, less likely Bupropion) - Physical appears to reveal hypovolemia/euvolemic; no signs of fluid overload - Sodium continues to improve slowly - Cr baseline appears to run 0.7-0.8; Cr is approaching normal - TSH noted / Cortisol level noted - Will continue to follow BMP [id number] - c/w IV fluid hydration for now Hematuria - possibly 2/2 UTI - Pradaxa held - UA consistent with possible infection; urine culture pending - c/w Cefdinir (Day #2) - Will need outpatient follow up with Urology Left leg swelling / Diabetic ulcer of L foot - Duplex US of L leg 08/25: No evidence of deep venous thrombosis of the left lower extremity femoral popliteal venous system. - Patient follows with Dr. Woodard as an outpatient - Will check ESR / CRP - XR Foot 08/27: Pathologic fracture of the calcaneus secondary to osteomyelitis with the cortical destruction of the plantar cortex of the posterior calcaneus. Fracture is vertically oriented through the junction of the body and anterior process of the calcaneus and there is air density within the ankle joint proper, anterior and posterior to the ankle. This represents osteomyelitis and septic arthritis. Flatfoot deformity and chronic changes of the MTP and IP joints with old healed and remodeled fracture distal shaft 2nd metatarsal. - c/w dressing changes as per outpatient regimen - Will consult podiatry and possibly orthopedic surgery s/p Elevated Cr on CKD3 - c/w IV fluid hydration Frequent falls / Gait instability - Will have fall precautions in place - c/w PT and OT HTN - BP well controlled - c/w Lisinopril and Metoprolol with hold parameters Diastolic CHF / Alcoholic cardiomyopathy / Pulmonary HTN - No evidence of exacerbation - Not on diuretics as an outpatient Paroxysmal A. fib - c/w rate control with metoprolol - Full anticoagulation with Pradaxa held (re: hematuria / head laceration) -- Discussed risks / benefits; increased risk of stroke - patient verbalized understanding DLP - c/w Pravastatin IDDM2 - c/w ISS and Levemir Chronic COPD - No evidence of exacerbation - c/w Inhaled therapy as ordered Neuropathy / Chronic pain 2/2 DDD - c/w Tylenol PRN Mood disorder - Will hold Bupropion / Fluoxetine (re: Hyponatremia) - Will have outpatient follow up with Psychiatry Gout - c/w Allopurinol GERD - c/w Omeprazole DVT prophylaxis - Full anticoagulation with Pradaxa held (re: hematuria / head laceration) - c/w TEDs/ Sequentials VS,Fishbone, I+O VS, Fishbone, I+O Laboratory Tests 08/26/20 12:56 08/26/20 17:47 08/26/20 21:33 08/27/20 01:06 08/27/20 05:03 08/27/20 08:36 Vital Signs Date Time Temp Pulse Resp B/P (MAP) Pulse Ox O2 Delivery O2 Flow Rate FiO2 08/27/20 09:53 132/62 08/27/20 09:52 94 08/27/20 08:00 97.9 16 99 Room Air I&O- Last 24 Hours up to 6 AM 08/27/20 05:59 Intake Total 3530 ml Output Total 275 ml Balance 3255 ml GAYATRI BOSWELL MD Aug 27, 2020 11:05
[2020-08-27 12:00] VITALS: BP 118/60
[2020-08-27 16:00] VITALS: BP 133/69
[2020-08-27 20:00] VITALS: BP 117/63
[2020-08-27] MEDS ORDERED: PROHANCE 279.3MG/ML 15ML VIAL As Ordered ONE (21:55)
--- NOTE | 2020-08-27 22:43 | REPVR ---
PROCEDURE INFORMATION: Exam: MR Left Lower Extremity Joint Without and With Contrast; Ankle Exam date and time: 08/27/2020 10:16 PM Age: 70 years old Clinical indication: Condition or disease; Heel fracture, infection. Evaluate for osteomyelitis, abscess TECHNIQUE: Imaging protocol: MR of the Left lower extremity without and with contrast. Exam focused on the ankle. Contrast material: PROHANCE; Contrast volume: 15 ml; Contrast route: INTRAVENOUS (IV); COMPARISON: CR Foot, complete LEFT 08/27/2020 9:14 AM FINDINGS: Bones and cartilage: There is a mildly displaced extra-articular fracture of the calcaneus without bony bridging across the fracture line. There is extensive confluent decreased T1 signal, increased T2 signal, and enhancement involving the calcaneal fracture fragments with indistinct cortical margins inferiorly, which are findings compatible with osteomyelitis. There is a small region of decreased T1 signal, increased T2 signal and enhancement involving the lateral aspect of the left distal tibial metaphysis, which may represent reactive osteitis or early osteomyelitis. There is no other evidence for osteomyelitis involving the left hindfoot or midfoot. Joint spaces: There is a large left tibiotalar joint effusion containing gas in the anterior recess and there is also gas dorsal to the talonavicular joint. LIGAMENTS: Distal tibiofibular syndesmosis: The distal tibiofibular syndesmosis is intact. Anterior talofibular ligament: The anterior talofibular ligament is intact. Posterior talofibular ligament: The posterior talofibular ligament is intact. Calcaneofibular ligament: The calcaneofibular ligament is intact. Deltoid ligament complex: The deltoid ligament complex is intact. Spring ligament complex: The spring ligament complex is intact. Lisfranc ligament: The Lisfranc ligament is intact. TENDONS: Flexor tendons of foot: The imaged flexor tendons are intact. There is fluid in the flexor digitorum longus and flexor hallucis longus tendon sheaths. Tibialis posterior tendon: The tibialis posterior tendon is intact. There is fluid in the tibialis posterior tendon sheath. Peroneal tendons: There is a split tear involving the left peroneus brevis tendon at and below the level of the lateral malleolus with reconstitution of the tendon at the level of the anterior aspect of the calcaneus. The peroneus longus tendon is intact. There is fluid in the peroneus longus and brevis tendon sheaths. Extensor tendons of foot: The imaged extensor tendons are intact. No tendinosis. No tenosynovitis. Tibialis anterior tendon: The tibialis anterior tendon is intact. No tendinosis. No tenosynovitis. Achilles tendon: The Achilles tendon is intact. No tendinosis. There is increased T2 signal in the pre Achilles fat, which is compatible with Achilles peritendinitis. There is a small amount of fluid in the pre Achilles bursa. Tarsal canal (Sinus tarsi): There is replacement of the normal fatty signal in the sinus tarsi with edema, which is compatible with an increased risk for a sinus tarsi syndrome. Tarsal tunnel: Unremarkable. Muscles: There is diffusely increased T2 signal and enhancement of the muscles of the left hindfoot and midfoot. Soft tissues: There is a soft tissue ulcer in the left heel extending down to the inferior surface of the calcaneus. There is a 3.1 cm x 4.3 cm x 0.6 cm rim enhancing soft tissue fluid collection deep to the ulcer and just inferior to the calcaneus, which is compatible with an abscess. There is soft tissue swelling and edema diffusely in the left hindfoot and midfoot, which is compatible with cellulitis. There are foci of gas in the soft tissues along the lateral aspect of left hindfoot and midfoot. There is a blister in the skin posterior to the calcaneus. Plantar fascia: There is a disruption of the plantar fascia (frame 16 of the sagittal STIR series 401). IMPRESSION: 1. Mildly displaced extra-articular fracture of the left calcaneus with evidence for osteomyelitis involving the calcaneal fracture fragments. 2. Reactive osteitis or early osteomyelitis involving the lateral aspect of the left distal tibial metaphysis. 3. Soft tissue ulcer in the left heel extending down to the inferior surface of the calcaneus with an underlying 3.1 cm x 4.3 cm x 0.6 cm abscess. 4. Extensive cellulitis in the left hindfoot and midfoot. 5. Large left tibiotalar joint effusion containing gas in the anterior recess and dorsal to the talonavicular joint. 6. Split tear involving the left peroneus brevis tendon at and below the level of the lateral malleolus with reconstitution of the tendon at the level of the anterior aspect of the calcaneus. 7. Rupture of the left plantar fascia. 8. Fluid in the tibialis posterior, flexor digitorum longus, flexor hallucis longus, and peroneus longus and brevis tendon sheaths, which may represent tenosynovitis. 9. Left Achilles peritendinitis. 10. Diffusely increased T2 signal and enhancement of the muscles of the left hindfoot and midfoot, which may represent myositis, denervation edema, or muscle strains. 11. Replacement of the normal fatty signal in the sinus tarsi with edema, which is compatible with an increased risk for a sinus tarsi syndrome. Electronically signed by: Umesh Castro On 08/27/2020 22:43:25 PM
[2020-08-28 04:00] VITALS: BP 102/57
[2020-08-28] MEDS: SLF 3 ML SYR IV SCH ×3 (06:00→21:16)
[2020-08-28 06:02] LABS: BASO % 0.2 % (0.0-1.0); EOS # 0.1 10^3/uL (0.0-0.5); EOS % 1.4 % (0.0-3.0); HEMATOCRIT 23.1 % (42.0-52.0); HEMOGLOBIN 7.4 g/dl (13.5-17.5); LYMPH # 0.8 10^3/uL (1.5-5.0); LYMPH % 13.1 % (24.0-44.0); MEAN CORPUSCULAR HEMOGLOBIN 26.5 pg (27.0-33.0); MEAN CORPUSCULAR VOLUME 82.8 fl (80.0-96.0); MONO # 0.7 10^3/uL (0.0-0.8); MONO % 10.9 % (0.0-5.0); NEUTROPHILS # 4.7 10^3/uL (1.5-8.5); NEUTROPHILS % 74.1 % (36.0-66.0); PLATELET COUNT, AUTOMATED 236 10^3/uL (150-450); RED BLOOD COUNT 2.79 10^6/uL (4.30-6.10); WHITE BLOOD COUNT 6.3 10^3/uL (4.0-10.0)
[2020-08-28 06:21] LABS: BLOOD UREA NITROGEN 14 MG/DL (7-18); CALCIUM LEVEL 8.1 MG/DL (8.8-10.2); CARBON DIOXIDE LEVEL 24 MEQ/L (21-32); CHLORIDE LEVEL 102 MEQ/L (98-107); CREATININE FOR GFR 0.62 MG/DL (0.70-1.30); GLOMERULAR FILTRATION RATE > 60.0 (>42); GLUCOSE, FASTING 171 MG/DL (70-100); MAGNESIUM LEVEL 1.6 MG/DL (1.8-2.4); POTASSIUM SERUM 4.1 MEQ/L (3.5-5.1); SODIUM LEVEL 133 MEQ/L (136-145)
[2020-08-28] MEDS: HumaLOG INSULIN (NovoLOG) PER UNIT SC SCH ×4 (07:30→21:10)
[2020-08-28 08:00] VITALS: BP 127/67
[2020-08-28] MEDS ORDERED: LIDOCAINE 1% SDV 30ML VIAL As Ordered ONE (08:01)
[2020-08-28] MEDS ORDERED: BUPIVACAINE HCL 0.5% 30 ML VIAL As Ordered ONE (08:01)
[2020-08-28] MEDS ORDERED: VANCOMYCIN 1000MG/20ML VIAL As Ordered ONE (08:18)
[2020-08-28] MEDS: SYMBICORT 80/4.5MCG INHALER 6GM INH SCH ×2 (08:20→19:38)
[2020-08-28] MEDS ORDERED: MIDAZOLAM INJ 2MG/2ML VIAL (J2250 PER 1MG) As Ordered ONE (08:58)
[2020-08-28] MEDS ORDERED: fentaNYL 100 MCG/2 ML INJECTION (J3010) As Ordered ONE (08:59)
[2020-08-28] MEDS ORDERED: MAG SULF 1GM/100ML (MAG RUN) 1 GM in IV 1 EA IV ONE (09:00)
[2020-08-28] MEDS: LACTIC ACID 12% LOTION 225 GM BTL TOP SCH (09:00)
[2020-08-28] MEDS ORDERED: propofoL 200 MG/20 ML VIAL As Ordered ONE (09:00)
[2020-08-28] MEDS ORDERED: LIDOCAINE 2% 100MG/5ML SDV (FOR ANES.) As Ordered ONE (09:24)
--- NOTE | 2020-08-28 10:19 | IPNPDOC ---
Text Note Date of Service The patient was seen on 08/28/20. NOTE Subjective: Patient is a 70-year-old male with a PMHx of HTN, Diastolic CHF, Alcoholic cardiomyopathy, Pulmonary HTN, Paroxysmal A. fib, DLP, IDDM2, CKD3, COPD, Depression, Neuropathy, Chronic pain 2/2 DDD, Gout, Diabetic ulcer of L foot who presented to the hospital after he fallen out of a taxi. Patient reports that 3-4 days ago he had fallen and hit his head. Patient reported that he slipped and fell out of a taxi and came to the emergency room today. Patient reports he did hit his head; he has received abe for his laceration in the ER. Patient has been admitted to the hospitalist service for hyponatremia and falls.. Patient was seen and examined at the bedside. Currently, patient was seen sitting up in bed, appears to be slightly fatigued but denies any chest pain, shortness breath or palpitations. Denies any abdominal pain or diarrhea. Reports his left foot feels relatively unchanged. Objective: Vitals (See below) General: Patient is sitting up in bed, does not appear to be in any acute distress, comfortable, awake/alert, oriented 3 HEENT: NC, AT CVS: +S1S2 Lungs: There does not appear to be any rhonchi, rales or wheezing and appears to have fair air entry bilaterally Abdomen: Nondistended and nontender, soft Extremities: Again, his affect continues to exhibit some edema, - Calf tenderness Skin: L heel with draining ulcer; dressing in place Assessment and plan: Hypotonic Hyponatremia - possibly 2/2 hypovolemic etiology - likely 2/2 extra- renal losses (decrease PO intake), possibly 2/2 medications (More likely Fluoxetine, less likely Bupropion) - Physical appears to reveal hypovolemia/euvolemic; no signs of fluid overload - There has been a slow increase in sodium appropriately - TSH noted / Cortisol level noted - c/w IV fluid hydration for now Left leg swelling / Diabetic ulcer of L foot - likely 2/2 osteomyelitis of L calcaneou s - Duplex US of L leg 08/25: No evidence of deep venous thrombosis of the left lower extremity femoral popliteal venous system. - Patient experienced a fever yesterday / Remains hemodynamically stable - Elevated ESR / CRP - XR Foot 08/27: Pathologic fracture of the calcaneus secondary to osteomyelitis with the cortical destruction of the plantar cortex of the posterior calcaneus. Fracture is vertically oriented through the junction of the body and anterior process of the calcaneus and there is air density within the ankle joint proper, anterior and posterior to the ankle. This represents osteomyelitis and septic arthritis. Flatfoot deformity and chronic changes of the MTP and IP joints with old healed and remodeled fracture distal shaft 2nd metatarsal. - c/w dressing changes as per outpatient regimen - Will start broad spectrum antibiotics (Vancomycin and Zosyn - Day #1) - Discussed case with Podiatry and Orthopedic surgery - patient is at high risk of losing his foot given the location of his osteomyelitis; patient has been informed of this - has verbalized understanding - Podiatry on consultation; will be take to OR today Hematuria - possibly 2/2 UTI - Pradaxa held - UA consistent with possible infection; urine culture negative - Will DC Cefdinir (see above) - Will need outpatient follow up with Urology Normocytic anemia - Hg has trended down - Will check iron panel, B12, folate, reticulocyte count - Will repeat CBC - Will likely transfuse s/p Elevated Cr on CKD3 - c/w IV fluid hydration Frequent falls / Gait instability - Will have fall precautions in place - c/w PT and OT HTN - BP well controlled - c/w Lisinopril and Metoprolol with hold parameters Diastolic CHF / Alcoholic cardiomyopathy / Pulmonary HTN - No evidence of exacerbation - Not on diuretics as an outpatient Paroxysmal A. fib - c/w rate control with metoprolol - Full anticoagulation with Pradaxa held (re: hematuria / head laceration) -- Discussed risks / benefits; increased risk of stroke - patient verbalized understanding DLP - c/w Pravastatin IDDM2 - c/w ISS and Levemir Chronic COPD - No evidence of exacerbation - c/w Inhaled therapy as ordered Neuropathy / Chronic pain 2/2 DDD - c/w Tylenol PRN Mood disorder - Will hold Bupropion / Fluoxetine (re: Hyponatremia) - Will have outpatient follow up with Psychiatry Gout - c/w Allopurinol GERD - c/w Omeprazole DVT prophylaxis - Full anticoagulation with Pradaxa held (re: hematuria / head laceration) - c/w TEDs/ Sequentials VS,Fishbone, I+O VS, Fishbone, I+O Laboratory Tests 08/28/20 05:44 Vital Signs Date Time Temp Pulse Resp B/P (MAP) Pulse Ox O2 Delivery O2 Flow Rate FiO2 08/28/20 08:00 98.6 89 17 127/67 (87) 96 Room Air I&O- Last 24 Hours up to 6 AM 08/28/20 05:59 Intake Total 2370 ml Output Total 100 ml Balance 2270 ml GAYATRI BOSWELL MD Aug 28, 2020 10:19
[2020-08-28] MEDS: NS 1,000 ML IV SCH (10:25)
[2020-08-28] MEDS ORDERED: PERCOCET 5MG/325MG TAB PO PRN (10:30)
[2020-08-28] MEDS ORDERED: METOCLOPRAMIDE INJ 10MG/2ML VIAL (J2765 PER 1) IV PRN (10:30)
[2020-08-28] MEDS ORDERED: fentaNYL 100 MCG/2 ML INJECTION (J3010) IV PRN (10:30)
[2020-08-28] MEDS ORDERED: LR 1,000 ML IV SCH (10:30)
[2020-08-28] MEDS ORDERED: ONDANSETRON 4MG/2ML VIAL IV PRN (10:30)
[2020-08-28 11:25] LABS: HEMATOCRIT 25.1 % (42.0-52.0); HEMOGLOBIN 8.2 g/dl (13.5-17.5); MEAN CORPUSCULAR HEMOGLOBIN 27.5 pg (27.0-33.0); MEAN CORPUSCULAR HGB CONC 32.7 g/dl (32.0-36.5); MEAN CORPUSCULAR VOLUME 84.2 fl (80.0-96.0); PLATELET COUNT, AUTOMATED 257 10^3/uL (150-450); RED BLOOD COUNT 2.98 10^6/uL (4.30-6.10)
[2020-08-28] MEDS: VANCOMYCIN HCL 1,000 MG, VIAL MATE ADAPTER 1 EACH in D5W 250 ML IV SCH ×2 (11:41→23:03)
[2020-08-28] MEDS: LEVEMIR (INSULIN DETEMIR) 1 UNITS/0.01ML SC SCH (11:42)
[2020-08-28] MEDS: MAGNESIUM OXIDE 400 MG TAB (MAG-OX) PO SCH ×3 (11:43→21:10)
[2020-08-28] MEDS: MULTIVITAMINS/MINERALS THERAP 1 TAB PO SCH (11:43)
[2020-08-28] MEDS: OMEPRAZOLE 20 MG CAP PO SCH (11:43)
[2020-08-28] MEDS: CYANOCOBALAMIN 500 MCG TAB PO SCH (11:43)
[2020-08-28] MEDS: lisinopriL 20 MG TAB PO SCH (11:44)
[2020-08-28] MEDS: VITAMIN D 1,000 INTERNATIONAL UNITS TABLET PO SCH (11:44)
[2020-08-28] MEDS: ASPIRIN 81 MG ENTERIC TAB PO SCH (11:44)
[2020-08-28] MEDS: allopurinoL 100 MG TAB PO SCH (11:45)
[2020-08-28] MEDS: METOPROLOL SUCC (TopROL XL) 50MG **XL** TAB PO SCH ×2 (11:46→21:10)
[2020-08-28] MEDS: PRAVASTATIN 20 MG TAB PO SCH (11:46)
[2020-08-28 11:51] LABS: PERCENT SATURATION 5.1 % (19.7-50.0)
[2020-08-28] MEDS ORDERED: PIPERACILLIN/TAZOBACTAM SOD 3.375 GM in D5W MINI-BAG PLUS 50 ML IV SCH (12:00)
[2020-08-28 12:34] VITALS: BP 132/86
[2020-08-28] MEDS ORDERED: VANCOMYCIN HCL 1,000 MG, VIAL MATE ADAPTER 1 EACH in D5W 250 ML IV ONE (13:00)
[2020-08-28] MEDS: PIPERACILLIN/TAZOBACTAM SOD 3.375 GM in D5W MINI-BAG PLUS 50 ML IV SCH ×2 (16:26→21:10)
[2020-08-28 20:36] LABS: BLOOD UREA NITROGEN 14 MG/DL (7-18); CALCIUM LEVEL 7.8 MG/DL (8.8-10.2); CARBON DIOXIDE LEVEL 25 MEQ/L (21-32); CHLORIDE LEVEL 100 MEQ/L (98-107); CREATININE FOR GFR 0.89 MG/DL (0.70-1.30); GLOMERULAR FILTRATION RATE > 60.0 (>42); GLUCOSE, FASTING 283 MG/DL (70-100); POTASSIUM SERUM 4.2 MEQ/L (3.5-5.1); SODIUM LEVEL 132 MEQ/L (136-145)
[2020-08-28 22:00] VITALS: BP 118/63
[2020-08-29] VITALS (8 sets, daily range): BP systolic 119–134; BP diastolic 51–71
[2020-08-29] MEDS: PIPERACILLIN/TAZOBACTAM SOD 3.375 GM in D5W MINI-BAG PLUS 50 ML IV SCH ×4 (03:16→22:09)
[2020-08-29] MEDS: ACETAMINOPHEN TAB 650MG DOSE (2X325MG) PO PRN (03:17)
[2020-08-29] MEDS: SLF 3 ML SYR IV SCH ×3 (06:01→22:09)
[2020-08-29 06:15] LABS: BASO % 0.3 % (0.0-1.0); EOS # 0.2 10^3/uL (0.0-0.5); EOS % 2.4 % (0.0-3.0); HEMATOCRIT 22.8 % (42.0-52.0); HEMOGLOBIN 7.6 g/dl (13.5-17.5); LYMPH % 14.4 % (24.0-44.0); MEAN CORPUSCULAR HEMOGLOBIN 27.2 pg (27.0-33.0); MEAN CORPUSCULAR HGB CONC 33.3 g/dl (32.0-36.5); MEAN CORPUSCULAR VOLUME 81.7 fl (80.0-96.0); MONO # 0.6 10^3/uL (0.0-0.8); NEUTROPHILS # 4.9 10^3/uL (1.5-8.5); NEUTROPHILS % 73.3 % (36.0-66.0); PLATELET COUNT, AUTOMATED 284 10^3/uL (150-450); RED BLOOD COUNT 2.79 10^6/uL (4.30-6.10); WHITE BLOOD COUNT 6.7 10^3/uL (4.0-10.0)
[2020-08-29 06:42] LABS: BLOOD UREA NITROGEN 12 MG/DL (7-18); CALCIUM LEVEL 7.8 MG/DL (8.8-10.2); CARBON DIOXIDE LEVEL 25 MEQ/L (21-32); CHLORIDE LEVEL 99 MEQ/L (98-107); CREATININE FOR GFR 0.71 MG/DL (0.70-1.30); GLOMERULAR FILTRATION RATE > 60.0 (>42); GLUCOSE, FASTING 234 MG/DL (70-100); MAGNESIUM LEVEL 1.6 MG/DL (1.8-2.4); POTASSIUM SERUM 4.1 MEQ/L (3.5-5.1); SODIUM LEVEL 131 MEQ/L (136-145)
[2020-08-29] MEDS: SYMBICORT 80/4.5MCG INHALER 6GM INH SCH ×2 (07:54→19:21)
[2020-08-29] MEDS: HumaLOG INSULIN (NovoLOG) PER UNIT SC SCH ×4 (08:33→20:58)
[2020-08-29] MEDS: PRAVASTATIN 20 MG TAB PO SCH (08:34)
[2020-08-29] MEDS: LEVEMIR (INSULIN DETEMIR) 1 UNITS/0.01ML SC SCH (08:34)
[2020-08-29] MEDS: CYANOCOBALAMIN 500 MCG TAB PO SCH (08:34)
[2020-08-29] MEDS: MULTIVITAMINS/MINERALS THERAP 1 TAB PO SCH (08:35)
[2020-08-29] MEDS: MAGNESIUM OXIDE 400 MG TAB (MAG-OX) PO SCH ×3 (08:35→22:08)
[2020-08-29] MEDS: VITAMIN D 1,000 INTERNATIONAL UNITS TABLET PO SCH (08:35)
[2020-08-29] MEDS: OMEPRAZOLE 20 MG CAP PO SCH (08:35)
[2020-08-29] MEDS: ASPIRIN 81 MG ENTERIC TAB PO SCH (08:35)
[2020-08-29] MEDS: lisinopriL 20 MG TAB PO SCH (08:35)
[2020-08-29] MEDS: METOPROLOL SUCC (TopROL XL) 50MG **XL** TAB PO SCH ×2 (08:36→22:09)
[2020-08-29] MEDS: LACTIC ACID 12% LOTION 225 GM BTL TOP SCH (08:39)
[2020-08-29] MEDS ORDERED: MAG SULF 1GM/100ML (MAG RUN) 1 GM in IV 1 EA IV ONE ×2 (09:00→15:00)
--- NOTE | 2020-08-29 10:15 | REP ---
INDICATION: Fell. COMPARISON: 08/24/2020 TECHNIQUE: Noncontrast CT of the brain protocol with coronal soft tissue reconstruction. FINDINGS: Lateral ventricles are moderately dilated a symmetric fashion with no midline shift 3rd and 4th ventricles are also in proportion and there is moderate diffuse cerebral atrophy throughout but greatest in the frontal and temporal lobes. Stable chronic small vessel white matter ischemic changes are noted bilaterally and heterogeneous pattern and stable. Basal ganglia are symmetric and without acute finding. No extra-axial fluid collections are noted. No intracranial hemorrhage, acute infarct, mass or mass effect. Brainstem was unremarkable atrophy in the cerebellum is slightly less severe. No posterior fossa mass or hemorrhage. Basal cisterns were intact. Mastoids, sphenoid and other sinuses were intact except for a few scattered ethmoid air cells with mucosal thickening. There is no evidence of an acute fracture of the skull base or calvarium. There has been reconstruction of the orbital floor on the left, unchanged. IMPRESSION: Ventriculomegaly and proportionate atrophy of the brain unchanged. Chronic small vessel white matter changes stable. No acute infarct, intracranial hemorrhage, mass, fracture of the skull base or calvarium. Stable examination. <Electronically signed by Chino Randolph > 08/29/20 1011
--- NOTE | 2020-08-29 10:36 | IPNPDOC ---
Text Note Date of Service The patient was seen on 08/29/20. NOTE Subjective: Patient is a 70-year-old male with a PMHx of HTN, Diastolic CHF, Alcoholic cardiomyopathy, Pulmonary HTN, Paroxysmal A. fib, DLP, IDDM2, CKD3, COPD, Depression, Neuropathy, Chronic pain 2/2 DDD, Gout, Diabetic ulcer of L foot who presented to the hospital after he fallen out of a taxi. Patient reports that 3-4 days ago he had fallen and hit his head. Patient reported that he slipped and fell out of a taxi and came to the emergency room today. Patient reports he did hit his head; he has received abe for his laceration in the ER. Patient has been admitted to the hospitalist service for hyponatremia and falls.. Patient was seen and examined at the bedside. Currently patient is sitting up at the edge of the bed. He denies any nausea, vomiting, chest pain or shortness of breath. Denies any lightheadedness or dizziness. Patient reports his foot feels relatively fine. Objective: Vitals (See below) General: Patient is sitting up in bed, appears comfortable, AAOx3 HEENT: NC, AT CVS: +S1S2 Lungs: Air entry is fair bilaterally, without any evidence of rhonchi, rales or wheezing Abdomen: Abdomen remains soft, without any distention or tenderness Extremities: LE are without any edema, - Calf tenderness Skin: L heel with dressing in place Assessment and plan: Hypotonic Hyponatremia - possibly 2/2 hypovolemic etiology - likely 2/2 extra- renal losses (decrease PO intake), possibly 2/2 medications (More likely Fluoxetine, less likely Bupropion) - Physical appears to reveal hypovolemia/euvolemic; no signs of fluid overload - Sodium has improved and has remained relatively stable - TSH noted / Cortisol level noted - Off fluids for 12 hours - Will repeat lab work this afternoon Left leg swelling / Diabetic ulcer of L foot - likely 2/2 osteomyelitis of L calcaneus - Duplex US of L leg 08/25: No evidence of deep venous thrombosis of the left lower extremity femoral popliteal venous system. - Remains hemodynamically stable / Afebrile for 24 hours - Elevated ESR / CRP - will trend - MRSA 08/28: Negative - Wound culture 08/27: Klebsiella Pneumoniae - XR Foot 08/27: Pathologic fracture of the calcaneus secondary to osteomyelitis with the cortical destruction of the plantar cortex of the posterior calcaneus. Fracture is vertically oriented through the junction of the body and anterior process of the calcaneus and there is air density within the ankle joint proper, anterior and posterior to the ankle. This represents osteomyelitis and septic arthritis. Flatfoot deformity and chronic changes of the MTP and IP joints with old healed and remodeled fracture distal shaft 2nd metatarsal. - Was taken to OR on 08/28 for washout and evaluation - unable to salvage c alcaneus bone - Will c/w Zosyn - Day #2; Will DC Vancomycin - Discussed case with Podiatry and Orthopedic surgery; patient will likely require below the knee amputation - Podiatry on consultation - has consulted General surgery (Dr. Fuentes) Hematuria - possibly 2/2 UTI - Pradaxa held - UA consistent with possible infection; urine culture negative - Will DC Cefdinir (see above) - Will need outpatient follow up with Urology Normocytic anemia - Hg has trended down - Iron panel, B12, folate, reticulocyte count - noted - Will transfuse 1 unit PRBC today s/p Elevated Cr on CKD3 - c/w IV fluid hydration Frequent falls / Gait instability - Will have fall precautions in place - c/w PT and OT HTN - BP well controlled - c/w Lisinopril and Metoprolol with hold parameters Diastolic CHF / Alcoholic cardiomyopathy / Pulmonary HTN - No evidence of exacerbation - Not on diuretics as an outpatient Paroxysmal A. fib - c/w rate control with metoprolol - Full anticoagulation with Pradaxa held (re: hematuria / head laceration) -- Discussed risks / benefits; increased risk of stroke - patient verbalized understanding DLP - c/w Pravastatin IDDM2 - c/w ISS and Levemir Chronic COPD - No evidence of exacerbation - c/w Inhaled therapy as ordered Neuropathy / Chronic pain 2/2 DDD - c/w Tylenol PRN Mood disorder - Will hold Bupropion / Fluoxetine (re: Hyponatremia) - Will have outpatient follow up with Psychiatry Gout - c/w Allopurinol GERD - c/w Omeprazole DVT prophylaxis - Full anticoagulation with Pradaxa held (re: hematuria / head laceration) - c/w TEDs/ Sequentials Disposition: - Will be evaluated by general surgery today VS,Rubens, I+O VS, Rubens, I+O Laboratory Tests 08/28/20 11:12 08/28/20 19:55 08/29/20 05:38 Vital Signs Date Time Temp Pulse Resp B/P (MAP) Pulse Ox O2 Delivery O2 Flow Rate FiO2 08/29/20 08:36 86 08/29/20 08:35 122/71 08/29/20 06:00 99.0 18 96 Room Air I&O- Last 24 Hours up to 6 AM 08/29/20 05:59 Intake Total 3370 ml Output Total 170 ml Balance 3200 ml GAYATRI BOSWELL MD Aug 29, 2020 10:35
[2020-08-29 13:14] LABS: HEMATOCRIT 25.6 % (42.0-52.0); HEMOGLOBIN 8.1 g/dl (13.5-17.5); MEAN CORPUSCULAR HEMOGLOBIN 26.6 pg (27.0-33.0); MEAN CORPUSCULAR HGB CONC 31.6 g/dl (32.0-36.5); MEAN CORPUSCULAR VOLUME 83.9 fl (80.0-96.0); PLATELET COUNT, AUTOMATED 348 10^3/uL (150-450); RED BLOOD COUNT 3.05 10^6/uL (4.30-6.10); WHITE BLOOD COUNT 7.2 10^3/uL (4.0-10.0)
[2020-08-29 13:39] LABS: BLOOD UREA NITROGEN 11 MG/DL (7-18); CALCIUM LEVEL 8.1 MG/DL (8.8-10.2); CARBON DIOXIDE LEVEL 27 MEQ/L (21-32); CHLORIDE LEVEL 98 MEQ/L (98-107); CREATININE FOR GFR 0.79 MG/DL (0.70-1.30); GLOMERULAR FILTRATION RATE > 60.0 (>42); GLUCOSE, FASTING 234 MG/DL (70-100); MAGNESIUM LEVEL 1.7 MG/DL (1.8-2.4); POTASSIUM SERUM 3.9 MEQ/L (3.5-5.1); SODIUM LEVEL 131 MEQ/L (136-145)
[2020-08-30] MEDS: PIPERACILLIN/TAZOBACTAM SOD 3.375 GM in D5W MINI-BAG PLUS 50 ML IV SCH ×4 (04:38→21:46)
[2020-08-30 06:00] VITALS: BP 131/76
[2020-08-30] MEDS: SLF 3 ML SYR IV SCH ×3 (06:48→21:46)
[2020-08-30 07:02] LABS: BASO % 0.3 % (0.0-1.0); EOS # 0.3 10^3/uL (0.0-0.5); EOS % 4.5 % (0.0-3.0); HEMATOCRIT 26.1 % (42.0-52.0); HEMOGLOBIN 8.3 g/dl (13.5-17.5); LYMPH # 1.4 10^3/uL (1.5-5.0); LYMPH % 22.6 % (24.0-44.0); MEAN CORPUSCULAR HEMOGLOBIN 26.4 pg (27.0-33.0); MEAN CORPUSCULAR HGB CONC 31.8 g/dl (32.0-36.5); MEAN CORPUSCULAR VOLUME 83.1 fl (80.0-96.0); MONO # 0.6 10^3/uL (0.0-0.8); MONO % 9.6 % (0.0-5.0); NEUTROPHILS # 3.8 10^3/uL (1.5-8.5); NEUTROPHILS % 62.3 % (36.0-66.0); PLATELET COUNT, AUTOMATED 319 10^3/uL (150-450); RED BLOOD COUNT 3.14 10^6/uL (4.30-6.10)
--- NOTE | 2020-08-30 07:28 | CR ---
"REASON FOR CONSULTATION: Left heel wound and fracture. HISTORY OF PRESENT ILLNESS: Eran Ring is a patient well known to me, who was admitted due to recent falls. He has had an ulceration of his left heel for approximately three months. He has been undergoing care at the wound care center. He is somewhat cloudy and not an accurate historian, but does note he has fallen and does believe he fell and landed on his left heel. PAST MEDICAL HISTORY: Significant for hypertension, congestive heart failure, cardiomyopathy, pulmonary hypertension, paroxysmal atrial fibrillation, diabetes and neuropathy, chronic kidney disease, COPD, depression, chronic pain and degenerative disc disease, gout. PAST SURGICAL HISTORY: Includes hernia repair and right hip arthroplasty, colon polyp resection, hemorrhoidectomy, squamous cell carcinoma, second toe amputation, tonsillectomy, laryngectomy. ALLERGIES: No known drug allergies. FAMILY HISTORY: Noncontributory. SOCIAL HISTORY: Denies smoking. Current alcohol use approximately one per day. REVIEW OF SYSTEMS: Unreliable. He does have a history of fevers over the last 48 hours. LABORATORY DATA: Reviewed. Most recent white blood cell count 5.9; on admission it was 13. ESR 75. CRP 15.1. Glucose today 325. Creatinine 0.93. IMAGING DATA: On the foot x-ray, there is a new fracture of the calcaneus body, which was not present on previous studies done here and in my office in May. This was in line with the location of the ulceration. There appears to be air near the ankle joint, which suggests abscess and osteomyelitis. Lower extremity examination; there is erythema and edema to left lower leg and foot. There is an ulceration on the plantar aspect of the calcaneus, which |probes to bone and there is an ulceration on the medial heel with purulent drainage. ASSESSMENT: A 70-year-old diabetic male with osteomyelitis and fracture of his heel. PLAN: Wound cultures are taken. Patient will be brought to the Operating Room tomorrow for incision and drainage, and antibiotic bead placement. Will order MRI prior to this. There is fair chance the patient may require leg amputation if osteomyelitis extends beyond the calcaneus, at which point, the likelihood of success and resolution of an infection is very small. This was discussed with patient, he appears to be aware. [facility]"
[2020-08-30 07:41] LABS: BLOOD UREA NITROGEN 11 MG/DL (7-18); CALCIUM LEVEL 8.5 MG/DL (8.8-10.2); CARBON DIOXIDE LEVEL 28 MEQ/L (21-32); CHLORIDE LEVEL 99 MEQ/L (98-107); GLOMERULAR FILTRATION RATE > 60.0 (>42); GLUCOSE, FASTING 171 MG/DL (70-100); MAGNESIUM LEVEL 1.6 MG/DL (1.8-2.4); POTASSIUM SERUM 4.8 MEQ/L (3.5-5.1); SODIUM LEVEL 132 MEQ/L (136-145)
[2020-08-30] MEDS: SYMBICORT 80/4.5MCG INHALER 6GM INH SCH ×2 (07:46→20:54)
--- NOTE | 2020-08-30 07:47 | IPN ---
DATE: 08/29/2020 SUBJECTIVE: The patient is seen and examined at bedside. Denies overnight complaints. Maximum temperature (T-max) 99. Labs are reviewed. White blood cell count is 6.7, hemoglobin 7.6. PHYSICAL EXAMINATION: Extremity examination: Dressing is clean, dry, and intact. ASSESSMENT: Diabetic male with calcaneal fracture secondary to osteomyelitis and abscess. PLAN: It was discussed with the patient that he will be best served with below knee amputation. A consultation with general surgery has been placed. The patient aware. He is not quite sure if he is ready to make that decision yet but is willing to listen to the surgeon and further discuss it from their perspective. We will follow. REMBERTO
--- NOTE | 2020-08-30 08:02 | RO ---
DATE OF OPERATION: 08/28/2020 PREOPERATIVE DIAGNOSIS: Left foot and ankle infection, heel osteomyelitis. POSTOPERATIVE DIAGNOSIS: Left foot and ankle infection, heel osteomyelitis. PROCEDURE: Left foot and ankle incision and drainage with implantation of antibiotic beads. ANESTHESIA: Monitored anesthesia care, preop injection of 20 mL of 1:1 mixture of 1% Lidocaine plain and 0.5% Marcaine plain. ESTIMATED BLOOD LOSS: 20 mL. SPECIMENS: Left wound tissue and bone and aerobic and anaerobic cultures. COMPLICATIONS: None. CONDITION: Stable. INDICATIONS: Eran Ring is a 70-year-old diabetic male who was admitted due to frequent falls. He was found to have a fracture of his calcaneus. He had been undergoing wound care for a wound at this location since May. In the reports there had been continued ongoing drainage without much improvement in the wound. He was noted to have significant purulence and erythema coming from the wound. Decision was made to bring him to the operating room for incision and drainage. The patient's side and site were identified and marked in the preoperative area. Consent was reviewed and obtained. The risks, complications and alternatives to the procedure were explained to the patient in detail and all questions were answered. PROCEDURE: The patient was brought to the operating room and placed on the operating room table in the supine position. Monitored anesthesia care was delivered by the anesthesia team. Preoperative injection of 20 mL of a 1:1 mixture of 1% lidocaine plain and 0.5% Marcaine plain were injected to the left foot. The left foot was prepped and draped in normal sterile fashion. The tourniquet was applied to the left ankle and inflated at 250 mmHg. There were two wounds that were at the plantar aspect of the calcaneus and the medial heel. These communicated. With probing there was significant purulent drainage. This was cultured with aerobic and anaerobic swabs. Linear incisions were made along the heel at the wound site and further purulence was expressed. A medial incision was made along the medial heel and ankle as well. A stab incision was made at the anterior medial ankle joint where x-rays and MRI indicated there was gas but no purulence or gas was noted. There was significant necrotic tissue. There were loose bone fragments. These were removed with a rongeur. The site was then irrigated with pulse lavage 2000 mL until no further purulence was noted. Following irrigation antibiotic beads impregnated with Vancomycin were placed into the plantar wound and gauze dressing was placed. The patient was brought to the PACU with vital signs stable and neurovascular status intact. He will be readmitted to the floor. Unfortunately due to significance of infection, location of wound and full body fracture with displacement of calcaneus, the patient has very poor healing potential. He has uncontrolled diabetes and history of inability to comply with nonweightbearing. Given this he may be best served with below knee amputation. We will a consultation with surgery for this. REMBERTO
[2020-08-30] MEDS: MAG SULF 1GM/100ML (MAG RUN) 1 GM in IV 1 EA IV SCH ×2 (08:08→09:27)
[2020-08-30] MEDS: HumaLOG INSULIN (NovoLOG) PER UNIT SC SCH ×4 (08:09→21:00)
[2020-08-30] MEDS: ASPIRIN 81 MG ENTERIC TAB PO SCH (08:09)
[2020-08-30] MEDS: LEVEMIR (INSULIN DETEMIR) 1 UNITS/0.01ML SC SCH (08:09)
[2020-08-30] MEDS: allopurinoL 100 MG TAB PO SCH (08:10)
[2020-08-30] MEDS: OMEPRAZOLE 20 MG CAP PO SCH (08:10)
[2020-08-30] MEDS: MAGNESIUM OXIDE 400 MG TAB (MAG-OX) PO SCH ×3 (08:10→21:45)
[2020-08-30] MEDS: lisinopriL 20 MG TAB PO SCH (08:10)
[2020-08-30] MEDS: PRAVASTATIN 20 MG TAB PO SCH (08:10)
[2020-08-30] MEDS: VITAMIN D 1,000 INTERNATIONAL UNITS TABLET PO SCH (08:10)
[2020-08-30] MEDS: MULTIVITAMINS/MINERALS THERAP 1 TAB PO SCH (08:10)
[2020-08-30] MEDS: CYANOCOBALAMIN 500 MCG TAB PO SCH (08:10)
[2020-08-30] MEDS: METOPROLOL SUCC (TopROL XL) 50MG **XL** TAB PO SCH ×2 (08:11→21:45)
--- NOTE | 2020-08-30 08:18 | CR ---
DATE OF CONSULTATION: 08/28/2020 REASON FOR CONSULTATION: Question below-knee amputation (BKA) for longstanding heel ulcer. BRIEF HISTORY OF PRESENT ILLNESS: Patient is a 70-year-old male with diabetic heel ulcer who has had a problem with an ulcer healing. He has actually been at the wound clinic for he states almost 2 years now, having dressing changes and treatment for this. In any case, at this point the patient had some cellulitis and obviously infected ulcer and was taken to the operating room by podiatry, who felt that he had significant involvement of his bone and had concerns that this was not a long-term viable issue and may benefit from a BKA. I was asked to see the patient for additional recommendations. Patient is a 70-year-old male who presents with a longstanding history of a decubitus ulcer/diabetic ulcer on his left heel. He has been treated at the wound clinic for almost 2 years now and overall has had some stability to this. Went to the operating room for debridement of this by podiatry, and they felt there was extensive involvement of the calcaneus, and the concern was that this is not a long-term viable situation/will probably end up with a BKA at some point. He has had some swelling of his leg, some cellulitis, and overall is here for additional recommendations from a surgical standpoint. PHYSICAL EXAMINATION: Patient is a 70-year-old male who looks stated age. HEENT: Unremarkable. NECK: Supple without adenopathy. LUNGS: Clear. HEART: Regular with multiple irregular beats. ABDOMEN: Soft, nontender EXTREMITIES: Right leg has good pulses. NO edema. Left leg, however, has edema from the distal calf down with some slight erythema. The dressing was removed, and the incisions were evaluated and had good blood supply, good capillary refill, good capillary refill distally. Given the edema, it was difficult to feel some pulses in this area but seems viable from a vascular standpoint. No evidence of purulent drainage. No evidence of sepsis or necrotic/necrotizing fasciitis at present. IMPRESSION AND PLAN: Patient has an advanced diabetic ulcer of his left heel. My recommendation at this time is that we continue with his current treatment. I do feel that it is reasonable to have the involved physicians all give their input, including the wound clinic/Dr. Woodard, and we would recommend the vascular surgeon here in [facility], Dr. Cederstrand, to evaluate him as an outpatient once he is discharge from the hospital. There is no need for emergence/surgeon intervention at this time. I do feel that he needs further leg elevation at this time. Continue with compressive therapy and contact me if there are any questions or concerns. But otherwise I anticipate he should be able to be discharged home on antibiotic regimen, dressing changes, and followup as an outpatient. REMBERTO
[2020-08-30] MEDS: LACTIC ACID 12% LOTION 225 GM BTL TOP SCH (09:27)
[2020-08-30 10:00] LABS: FOLATE 14.6 NG/ML (>5.4)
--- NOTE | 2020-08-30 10:47 | IPNPDOC ---
Text Note Date of Service The patient was seen on 08/30/20. NOTE CC: Fall Subjective: Eran Ring is a 70 yr old male w/ PMHx of HTN, diastolic CHF, alcoholic cardiomyopathy, paroxysmal A. fib, DLP, CKD3, IDDM2, Depression, Neuropathy, Chronic Pain 2/2 DDD, Gout, Diabetic foot ulcer presented to the ED w/ a fall. Today, patient has no complaints. He is agitated about continued stay in the hospital and wants to go home. Does state he has weakness but attributes that to his osteoarthritis and also stated that he has right ankle swelling Objective: Vitals: See below General: Patient in no acute distress, alert and oriented x3 Neuro: Cranial nerves 2-12 intact HEENT: Ecchymosis appreciated above and below left orbital, minimal tenderness to palpation, no swelling noted Cardiovascular: RRR, no murmurs or gallops, normal S1 and S2 Respiratory: Lungs clear to auscultation bilaterally, no wheezing or crackles GI: Abdomen soft, nontender, nondistended, no hepatomegaly, normal bowel sounds x4 Extremities: Left foot covered with bandage wrap and gauze, +1/4 pedal pulses in right foot, no ulcerations on plantar side of right foot, no edema on right ankle, muscle strength testing 5/5 bilaterally in upper and lower extremities Integument: Ecchymosis appreciated in left lower lumbar area Labs: See below Imaging: -No new imaging to report Assessment: Eran Ring is a 70 yr old male PMHx of HTN, diastolic CHF, alcoholic cardiomyopathy, paroxsymal Afib, DLP, CKD3, IDDM2, Depression, Neuropathy, Chronic Pain 2/2 DDD, Gout, Diabetic foot ulcer presented to the ED w/ a fall. Patient has had hyponatremia resolved. Patient will have consult w/ Infectious Disease to determine whether patient should be on antibiotics for left foot osteomyelitis or have left foot amputation. Surgery was originally consulted and recommended amputation of the foot. Plan: 1. Hyponatremia 2/2 Hypovolemia -Patient physical does not show any concerns of hypovolemia -Patient's hyponatremia has resolved and remained stable, will monitor labs -Currently off fluids 2. Left foot ulcer 2/2 IDDM2 - left foot osteomyelitis -X-ray of foot previously showed fracture of calcaneus secondary to osteomyelitis -Patient has history of IDDM2 and most likely contributed to foot ulcer and osteomyelitis development -CRP elevated to 13.7 due to osteomyelitis -Patient currently on Zosyn 50 mL Q6H IV -Dr. Fuentes consulted, recommended BKA, surgery consultation appreciated -Will consult Dr. Zuniga of Infectious Disease to determine whether patient should be on antibiotics mcc or have left foot amputation; if antibiotics are given emt intermediate, will discuss putting in PICC line for IV antibiotics - likely PICC line tomorrow if ID agrees with plan 3. Hematuria 2/2 possible UTI -UA came back positive for leukocytes, hematuria -Cultures came back negative 4. Normocytic Anemia: -Most likely due to CKD3 and IDDM2 -Patient's hemoglobin trended down from 8.3 to 8.1 -Was given a unit of blood transfusion on 08/29/20 -Patient has had consistent range of hemoglobin between 8 to 10, will continue to monitor 5. Hypomagnesemia -Patient magnesium levels were 1.6 -Was given magnesium 1 gram at 0800, will monitor labs 6. Recurrent Falls -CT head showed no acute changes -C/w PT/OT 7. CKD3 -BUN/Cr levels have normalized 8. HTN: -BP is currently 131/76 and is stable -Continue lisinopril and Metoprolol w/ hold parameters 9. Diastolic CHF/Alcoholic cardiomyopathy/Pulmonary HTN -No signs of exacerbation -Patient is currently on lisinopril and metoprolol 10. Paroxysmal A. fib -Patient is currently on metoprolol which will help w/ rate control -Holding Pradaxa due to head laceration 11. DLP -Continue Pravastatin 12. IDDM2: -Patient on insulin sliding scale and Levemir, will continue 13. Chronic COPD -Continue Symbicort 14. Neuropathy/Chronic Pain 2/2 DDD -Continue Tylenol PRN 15. Gout -Continue allopurinol 16. GERD -Continue omeprazole 17. DVT Prophylaxis: -Holding Pradaxa due to head laceration and will continue TEDs/Sequentials Dispo: Consult ID regarding use of antibiotics vs. amputation of left foot VS,Fishbone, I+O VS, Fishbone, I+O Laboratory Tests 08/29/20 12:59 08/30/20 06:22 Vital Signs Date Time Temp Pulse Resp B/P (MAP) Pulse Ox O2 Delivery O2 Flow Rate FiO2 08/30/20 08:11 82 131/76 08/30/20 06:00 98.9 20 98 Room Air I&O- Last 24 Hours up to 6 AM 08/30/20 06:00 Intake Total 3980 ml Output Total 300 ml Balance 3680 ml GME ATTESTATION GME ATTESTATION My faculty preceptor for this patient encounter was physically present during the encounter and was fully available. All aspects of the patient interview, examination, medical decision making process, and medical care plan development were reviewed and approved by the faculty preceptor. The faculty preceptor is aware and concurs with the plan as stated in the body of this note and will attest to such by his/her cosignature. ATTENDING NOTE I, Meghann Pimentel, have independently examined this patient and performed my own physical exam, as well as reviewed the documentation and edited where necessary. I have discussed in detail with the resident / student the findings and plan of treatment as documented by the resident / student and edited their note. I agree with their findings and treatment plan and have edited their documentation. I will continue to follow the patient during this hospital stay. KENNY LONG OMS-IV Aug 30, 2020 10:47 MEGHANN PIMENTEL MD Aug 30, 2020 15:47
[2020-08-30 14:00] VITALS: BP 119/61
[2020-08-30] MEDS: ACETAMINOPHEN TAB 650MG DOSE (2X325MG) PO PRN (21:47)
[2020-08-30 22:00] VITALS: BP 133/77
[2020-08-31] MEDS: PIPERACILLIN/TAZOBACTAM SOD 3.375 GM in D5W MINI-BAG PLUS 50 ML IV SCH ×4 (04:24→21:06)
[2020-08-31] MEDS: SLF 3 ML SYR IV SCH ×3 (05:05→21:06)
[2020-08-31 06:00] VITALS: BP 133/76
[2020-08-31 06:59] LABS: BASO % 0.4 % (0.0-1.0); EOS # 0.2 10^3/uL (0.0-0.5); HEMATOCRIT 28.8 % (42.0-52.0); HEMOGLOBIN 9.2 g/dl (13.5-17.5); LYMPH # 1.3 10^3/uL (1.5-5.0); LYMPH % 24.9 % (24.0-44.0); MEAN CORPUSCULAR HEMOGLOBIN 26.8 pg (27.0-33.0); MEAN CORPUSCULAR HGB CONC 31.9 g/dl (32.0-36.5); MONO # 0.5 10^3/uL (0.0-0.8); NEUTROPHILS # 3.2 10^3/uL (1.5-8.5); NEUTROPHILS % 59.6 % (36.0-66.0); PLATELET COUNT, AUTOMATED 373 10^3/uL (150-450); RED BLOOD COUNT 3.43 10^6/uL (4.30-6.10); WHITE BLOOD COUNT 5.3 10^3/uL (4.0-10.0)
[2020-08-31 07:18] LABS: BLOOD UREA NITROGEN 10 MG/DL (7-18); CALCIUM LEVEL 8.5 MG/DL (8.8-10.2); CARBON DIOXIDE LEVEL 28 MEQ/L (21-32); CHLORIDE LEVEL 102 MEQ/L (98-107); GLOMERULAR FILTRATION RATE > 60.0 (>42); GLUCOSE, FASTING 167 MG/DL (70-100); MAGNESIUM LEVEL 1.7 MG/DL (1.8-2.4); SODIUM LEVEL 136 MEQ/L (136-145)
[2020-08-31] MEDS: SYMBICORT 80/4.5MCG INHALER 6GM INH SCH ×2 (07:29→20:48)
[2020-08-31 07:55] LABS: C REACTIVE PROTEIN QUANTITATIV 7.99 MG/DL (0.00-0.30)
[2020-08-31] MEDS: HumaLOG INSULIN (NovoLOG) PER UNIT SC SCH ×4 (08:28→20:38)
[2020-08-31] MEDS: LEVEMIR (INSULIN DETEMIR) 1 UNITS/0.01ML SC SCH (08:28)
[2020-08-31] MEDS: PRAVASTATIN 20 MG TAB PO SCH (08:29)
[2020-08-31] MEDS: CYANOCOBALAMIN 500 MCG TAB PO SCH (08:29)
[2020-08-31] MEDS: ASPIRIN 81 MG ENTERIC TAB PO SCH (08:29)
[2020-08-31] MEDS: lisinopriL 20 MG TAB PO SCH (08:29)
[2020-08-31] MEDS: OMEPRAZOLE 20 MG CAP PO SCH (08:30)
[2020-08-31] MEDS: MULTIVITAMINS/MINERALS THERAP 1 TAB PO SCH (08:30)
[2020-08-31] MEDS: METOPROLOL SUCC (TopROL XL) 50MG **XL** TAB PO SCH ×2 (08:30→20:37)
[2020-08-31] MEDS: LACTIC ACID 12% LOTION 225 GM BTL TOP SCH (08:30)
[2020-08-31] MEDS: VITAMIN D 1,000 INTERNATIONAL UNITS TABLET PO SCH (08:30)
[2020-08-31] MEDS: MAGNESIUM OXIDE 400 MG TAB (MAG-OX) PO SCH ×3 (08:30→20:37)
--- NOTE | 2020-08-31 11:08 | IPNPDOC ---
Text Note Date of Service The patient was seen on 08/31/20. NOTE CC: Fall Subjective: Eran Ring is a 70 yr old male w/ PMHx of HTN, diastolic CHF, alcoholic cardiomyopathy, paroxysmal A. fib, DLP, CKD3, IDDM2, Depression, Neuropathy, Chronic Pain 2/2 DDD, Gout, Diabetic foot ulcer presented to the ED w/ a fall. Today, patient has no complaints. Patient continues to be agitated and anxious about stay in hospital and insists on going home, however patient understands and agrees w/ plan to meet with ID consult today to discuss options moving forward. Objective: Vitals: See below General: Patient in no acute distress, anxious and agitated, alert and oriented x3 HEENT: Ecchymosis appreciated above and below left orbital, minimal tenderness to palpitation, no swelling noted Cardiovascular: RRR, no murmurs or gallops, normal S1 and S2 Respiratory: Lungs clear to auscultation bilaterally, no wheezing or crackles GI: Abdomen soft, nontender, nondistended, no hepatomegaly, normal bowel sounds x4 Extremities: Left foot covered w/ bandage wrap and gauze, +2/4 pedal pulses on right foot, no ulcerations on plantar side of right foot, no edema on right ankle Labs: See below Imaging: -No new imaging to report Assessment: Eran Ring is a 70 yr old male PMHx of HTN, diastolic CHF, alcoholic cardiomyopathy, paroxsymal Afib, DLP, CKD3, IDDM2, Depression, Neuropathy, Chronic Pain 2/2 DDD, Gout, Diabetic foot ulcer presented to the ED w/ a fall. ID consult could not see patient yesterday, will see patient today and further evaluate whether patient should be on long-term antibiotics for left foot osteomyelitis or have left foot amputation. Plan: 1. Left foot ulcer 2/2 IDDM2 - left foot osteomyelitis -X-ray of foot previously showed fracture of calcaneus secondary to osteomyelitis -Patient has history of IDDM2 and most likely contributed to foot ulcer and osteomyelitis development -CRP is trending down from 13.7 to 7.99 -Patient currently on Zosyn 50 mL Q6H IV, will continue -Dr. 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 Normocytic Anemia: -Most likely due to CKD3 and IDDM2 -Patient's hemoglobin trended up from 8.3 to 9.2 -Was given a unit of blood transfusion on 08/29/20 -Patient has had consistent range of hemoglobin between 8 to 10, will continue to monitor 3. Recurrent Falls -CT head showed no acute changes -C/w PT/OT 4. CKD3 -BUN/Cr levels have normalized 5. HTN: -BP is currently 133/76 and is stable -Continue lisinopril and Metoprolol w/ hold parameters 6. Diastolic CHF/Alcoholic Cardiomyopathy/Pulmonary HTN -No signs of exacerbation -Patient is currently on lisinopril and metoprolol 7. Paroxysmal A. fib -Patient is currently on metoprolol which will help w/ rate control -Holding Pradaxa due to head laceration; will consider starting Pradaxa depending on ID consult 8. DLP -Continue Pravastatin 9. IDDM2: -Patient on insulin sliding scale and Levemir, will continue 10. Chronic COPD -Continue Symbicort 11. Neuropathy/Chronic Pain 2/2 DDD -Continue Tylenol PRN 12. Gout -Continue allopurinol 13. GERD -Continue omeprazole 14. DVT Prophylaxis: -Holding Pradaxa due to head laceration and will continue TEDs/Sequentials; will consider starting Pradaxa depending on ID consult Dispo: Patient will be consulted today by Dr. Zuniga of ID to determine whether patient should be on skilled nursing antibiotics or whether to proceed with left foot amputation Attending Note: Patient seen and examined independently. Agree with student's note. VS,Fishbone, I+O VS, Fishbone, I+O Laboratory Tests 08/31/20 06:27 Vital Signs Date Time Temp Pulse Resp B/P (MAP) Pulse Ox O2 Delivery O2 Flow Rate FiO2 08/31/20 08:29 132/76 08/31/20 06:00 99.2 83 20 97 Room Air I&O- Last 24 Hours up to 6 AM 08/31/20 06:00 Intake Total 890 ml Output Total 650 ml Balance 240 ml KENNY LONG OMS-IV Aug 31, 2020 11:08 RICARDO JEAN BAPTISTE MD Aug 31, 2020 17:33
[2020-08-31] MEDS ORDERED: MAG SULF 1GM/100ML (MAG RUN) 1 GM in IV 1 EA IV ONE (12:30)
[2020-08-31 14:05] VITALS: BP 127/93
[2020-08-31 22:00] VITALS: BP 126/74
[2020-09-01] MEDS: PIPERACILLIN/TAZOBACTAM SOD 3.375 GM in D5W MINI-BAG PLUS 50 ML IV SCH ×4 (04:02→21:23)
[2020-09-01] MEDS: SLF 3 ML SYR IV SCH ×3 (05:04→21:24)
[2020-09-01 06:00] VITALS: BP 126/69
[2020-09-01 06:59] LABS: BLOOD UREA NITROGEN 10 MG/DL (7-18); C REACTIVE PROTEIN QUANTITATIV 7.08 MG/DL (0.00-0.30); CALCIUM LEVEL 8.2 MG/DL (8.8-10.2); CARBON DIOXIDE LEVEL 27 MEQ/L (21-32); CHLORIDE LEVEL 102 MEQ/L (98-107); CREATININE FOR GFR 0.88 MG/DL (0.70-1.30); GLOMERULAR FILTRATION RATE > 60.0 (>42); GLUCOSE, FASTING 247 MG/DL (70-100); MAGNESIUM LEVEL 1.6 MG/DL (1.8-2.4); POTASSIUM SERUM 4.2 MEQ/L (3.5-5.1); SODIUM LEVEL 133 MEQ/L (136-145)
[2020-09-01] MEDS: SYMBICORT 80/4.5MCG INHALER 6GM INH SCH ×2 (07:21→19:40)
[2020-09-01] MEDS: LEVEMIR (INSULIN DETEMIR) 1 UNITS/0.01ML SC SCH (08:05)
[2020-09-01] MEDS: HumaLOG INSULIN (NovoLOG) PER UNIT SC SCH ×4 (08:06→21:33)
[2020-09-01] MEDS: allopurinoL 100 MG TAB PO SCH (08:08)
[2020-09-01] MEDS: CYANOCOBALAMIN 500 MCG TAB PO SCH (08:08)
[2020-09-01] MEDS: MAGNESIUM OXIDE 400 MG TAB (MAG-OX) PO SCH ×3 (08:08→21:22)
[2020-09-01] MEDS: OMEPRAZOLE 20 MG CAP PO SCH (08:08)
[2020-09-01] MEDS: PRAVASTATIN 20 MG TAB PO SCH (08:08)
[2020-09-01] MEDS: ASPIRIN 81 MG ENTERIC TAB PO SCH (08:08)
[2020-09-01] MEDS: MAG SULF 1GM/100ML (MAG RUN) 1 GM in IV 1 EA IV SCH ×2 (08:08→09:27)
[2020-09-01] MEDS: MULTIVITAMINS/MINERALS THERAP 1 TAB PO SCH (08:09)
[2020-09-01] MEDS: VITAMIN D 1,000 INTERNATIONAL UNITS TABLET PO SCH (08:09)
[2020-09-01] MEDS: METOPROLOL SUCC (TopROL XL) 50MG **XL** TAB PO SCH ×2 (08:12→21:22)
[2020-09-01] MEDS: lisinopriL 20 MG TAB PO SCH (08:12)
[2020-09-01] MEDS: LACTIC ACID 12% LOTION 225 GM BTL TOP SCH (08:16)
--- NOTE | 2020-09-01 08:25 | IPN ---
DATE: 08/31/2020 SUBJECTIVE: The patient is seen at his bedside. He denies new complaints. He states there is not much pain in his foot. OBJECTIVE: VITAL SIGNS: Reviewed. T-max 99.2. LOWER EXTREMITY: Erythema and edema are reduced. Antibiotics beads are seen in the plantar wound. There is some trace purulence from the medial ankle wound. LABORATORY DATA: Reviewed. White blood cell count is 5.3. CRP 7.99. ASSESSMENT: A 70-year-old diabetic male with calcaneal osteomyelitis and fracture. PLAN: Patient wishes to discuss with some other doctors before deciding if he will have this leg amputated. He prefers ideally to try to salvage this. While I ultimately believe he will require a below-knee amputation given the severity of the fracture and wound, this is not urgent and there is some potential viability if the patient could be completely nonweightbearing and follow appropriate wound care instructions. Unfortunately, there have been some issues with ability to adhere to this with previous wounds. For now, we will continue antibiotics. Infectious disease has been consulted for further guidance on this. If the patient wishes to have nonoperative care, I do recommend he have outpatient evaluation by Dr. Tyler for further discussion as she most likely would be the surgeon performing this procedure. REMBERTO
[2020-09-01 10:40] LABS: BASO % 0.4 % (0.0-1.0); EOS # 0.2 10^3/uL (0.0-0.5); EOS % 3.2 % (0.0-3.0); HEMATOCRIT 26.3 % (42.0-52.0); HEMOGLOBIN 8.5 g/dl (13.5-17.5); LYMPH # 1.5 10^3/uL (1.5-5.0); LYMPH % 25.8 % (24.0-44.0); MEAN CORPUSCULAR HEMOGLOBIN 27.4 pg (27.0-33.0); MEAN CORPUSCULAR HGB CONC 32.3 g/dl (32.0-36.5); MEAN CORPUSCULAR VOLUME 84.8 fl (80.0-96.0); MONO # 0.5 10^3/uL (0.0-0.8); MONO % 8.8 % (0.0-5.0); NEUTROPHILS # 3.5 10^3/uL (1.5-8.5); NEUTROPHILS % 60.7 % (36.0-66.0); PLATELET COUNT, AUTOMATED 374 10^3/uL (150-450); WHITE BLOOD COUNT 5.7 10^3/uL (4.0-10.0)
[2020-09-01 11:55] LABS: ERYTHROCYTE SEDIMENTATION RATE 70 mm/hr (0-20)
--- NOTE | 2020-09-01 12:40 | CR ---
DATE OF CONSULTATION: 08/31/2020 REASON FOR CONSULTATION: Asked to consult by hospitalist for evaluation of left calcaneus osteomyelitis with possible septic arthritis of the ankle. HISTORY OF PRESENT ILLNESS: Mr. Ring is a 70-year-old gentleman who has had a diabetic foot ulcer for the past 3 months The patient came to the hospital after he had fallen and hit his head. He had a lot of ataxia. The patient lacerated his face. He denied having nausea, vomiting, chest pain, shortness of breath, cough, palpitations. He denied having any fever or chills. At [facility] he was noted to have left lower extremity swelling, and he has had this diabetic foot ulcer that he follows up for with Dr. Abbott and Dr. Woodard. The wound was examined, and he was noted to have discharge and fever, and he was started on intravenous (IV) Zosyn and taken to the operating room (OR) by Dr. Abbott on August 28. Cultures were positive for Klebsiella pneumoniae, Enterococcus (E) faecalis, and Streptococcus sanguinis on two different cultures. Patient was febrile initially, but his last temperature has been over 72 hours ago. He is anxious to go him, because his has multiple sclerosis and needs help. She is walker dependent, but otherwise she does fairly well. MEDICAL HISTORY: Significant for: 1. Hypertension. 2. Diastolic heart failure. 3. Alcoholic cardiomyopathy. 4. Pulmonary hypertension. 5. Paroxysmal atrial fibrillation. 6. Dyslipidemia. 7. Insulin-dependent diabetes, type 2. 8. Chronic kidney disease. 9. Chronic obstructive pulmonary disease (COPD). 10. Depression. 11. Diabetic neuropathy. 12. Gout. His sales order specialist is Dr. Misha Gagnon. SURGICAL HISTORY: 1. Hernia repair. 2. Right hip arthroplasty. 3. Resection of polyps in the colon. 4. Hemorrhoidectomy. 5. 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 6. Tonsillectomy. 7. Myringectomy. SOCIAL HISTORY: He denies any drug abuse. He drinks 6 packs of beer in a week. Quit smoking 15 years ago. Lives with his for the past 13 years. This is his second marriage, and she is a retired nurse. 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 ALLERGIES: No known drug allergies. MEDICATIONS: - Zosyn 3.375 grams IV every 6 hours, day #4, started on August 28 - allopurinol 50 mg by mouth every other day - aspirin 81 mg daily - vitamin D 1000 units daily - vitamin B12 at 1000 mcg daily - lisinopril 20 mg by mouth daily - magnesium oxide 400 mg by mouth three times a day - metoprolol 50 mg by mouth twice a day - multivitamin one tablet daily - Pravachol 20 mg daily - omeprazole 40 mg daily - Levemir 14 units subcutaneous daily - budesonide formoterol two puffs inhaled twice a day LABORATORY DATA: On admission his white count was 13; today it is 5.3. Hemoglobin 9.2, hematocrit 28.8, platelets 373, 59% neutrophils, 25% lymphocytes, 10% monocytes, ESR 35. Sodium 136, potassium 4, chloride 102, bicarbonate 28, BUN 10, creatinine 0.9, glucose 157, calcium 8.5, magnesium 1.7, CRP 7.99, down from 15.1. Blood cultures on August 25: Two sets were no growth after 5 days. Urine culture was negative on August 26, and left foot culture had Klebsiella pneumoniae and E. faecalis. Anaerobic cultures are still pending. Head CT August 29 showed ventriculomegaly and atrophy of the brain, chronic small-vessel white matter changes. No acute infarct, mass, or hemorrhage. Ankle MRI shows early osteomyelitis of the left distal tibial metaphysis. Ulcer of the left heel down to the inferior surface of the calcaneus with an abscess, 4.3 x 3.1 cm, extensive cellulitis at the hindfoot and the midfoot, and a large left tibiotalar joint effusion containing gas in the anterior recess. There is a split tear of the left peroneus tendon at the lateral malleolus. There is a rupture of the left plantar fascia and fluid into the tibialis posterior, flexor digitorum longus, and flexor hallucis longus, which may represent tenosynovitis and left Achilles peritendinitis. PHYSICAL EXAMINATION: He is a pleasant gentleman in no acute distress. Temperature 98.2, pulse 97, respirations 18, blood pressure 127/93, oxygen saturation 98% on room air. HEART: Normal S1, S2. No murmurs appreciated. No gallops or rubs. LUNGS: Clear. No wheezes, rales, or rhonchi. ABDOMEN: Soft, nontender. No hepatosplenomegaly. EXTREMITIES: Right leg with no clubbing, cyanosis, or edema. He has tattoos and some scabs from falls. Left leg has +1 pitting edema with a large ankle effusion, not painful. He has normal range of motion of the ankle. No redness surrounding the ankle. He has an incision along the calcaneus, measuring about 8 cm with a skin laceration. At the center of this incision, there is a circular ulceration measuring about 1.5 x 1.5 cm with serosanguineous discharge. Another incision has been made in the medial malleolus surgically. IMPRESSION: This is a 70-year-old gentleman who had a diabetic foot ulcer along the calcaneus that is now complicated by a calcaneal fracture, osteomyelitis, and probable septic arthritis of the tibiotalar joint with an effusion containing gas. Cultures are polymicrobial with klebsiella, E. faecalis, and Streptococcus sanguinous. Due to the complexity of the situation, including infection, fracture, tendinitis, and tenosynovitis, which are infectious, Dr. Abbott felt that patient would do better with a below-knee amputation, but the patient is adamant he does not want that. PLAN: Insert peripherally inserted central catheter (PICC) line in the morning. Continue IV Zosyn, which is adequate therapy. This will be given as a continuous infusion at 13.5 grams every 24 hours with 6 weeks anticipated therapy with end of therapy 09/29/2020. Patient will need blood work weekly with a complete blood count (CBC), comprehensive metabolic profile (CMP), erythrocyte sedimentation rate (ESR), C-reactive protein (CRP) to monitor infection. Recommend probiotics twice a day. MTDD
[2020-09-01 14:00] VITALS: BP 129/71
[2020-09-01] MEDS ORDERED: LIDOCAINE 1% MDV 20ML VIAL As Ordered ONE (15:57)
--- NOTE | 2020-09-01 16:52 | IPNPDOC ---
Text Note Date of Service The patient was seen on 09/01/20. NOTE CC: Fall Subjective: Eran Ring is a 70 yr old male w/ PMHx of HTN, diastolic CHF, alcoholic cardiomyopathy, paroxysmal A. fib, DLP, CKD3, IDDM2, Depression, Neuropathy, Chronic Pain 2/2 DDD, Gout, Diabetic foot ulcer presented to the ED w/ a fall. Today, patient has no complaints. Patient continues to be anxious about stay in hospital and insists on going home. Dr. Zuniga of ID saw the patient yesterday and concluded that the patient could have medical administrative technician IV antibiotics and will need a PICC line placed. She also recommended he follow up with her and make an appointment at her clinic once discharged. Objective: Vitals: See below General: Patient in no acute distress, anxious and agitated, alert and oriented x3 HEENT: Ecchymosis appreciated above and below left orbital, no swelling noted Cardiovascular: RRR, no murmurs or gallops, normal S1 and S2 Respiratory: Lungs clear to auscultation bilaterally, no wheezing or crackles GI: Abdomen soft, nontender, nondistended, no hepatomegaly, normal bowel sounds x4 Extremities: +1 pitting edema in left lower extremity, left foot covered w/ bandage wrap and gauze, +2/4 pedal pulses on right foot, no pitting edema on ri ght foot Labs: See below Imaging: No new imaging to report Assessment: Eran Ring is a 70 yr old male PMHx of HTN, diastolic CHF, alcoholic cardiomyopathy, paroxsymal Afib, DLP, CKD3, IDDM2, Depression, Neuropathy, Chronic Pain 2/2 DDD, Gout, Diabetic foot ulcer presented to the ED w/ a fall. Dr. Zuniga of ID consulted and concluded that patient may be given group home IV antibiotics and will have a PICC line placed Plan: 1. Left foot ulcer 2/2 IDDM2 - left foot osteomyelitis -X-ray of foot previously showed fracture of calcaneus secondary to osteomyelitis -Patient has history of IDDM2 and most likely contributed to foot ulcer and osteomyelitis development -Dr. Zuniga of ID consulted and concluded that patient may be given group home IV Zosyn, will need to have PICC line placed; Dr. Zuniga also advised patient be given probiotics (see note) -CRP is trending down from 7.99 to 7.08 2. Normocytic Anemia: -Most likely due to CKD3 and IDDM2 -Patient's hemoglobin trended done from 9.2 to 8.5 -Patient has had consistent range of hemoglobin between 8 to 10, will continue to monitor 3. Hypomagnesemia -Patient's magnesium level was 1.6 -Patient was given Magnesium 1 gm, will monitor levels 3. Recurrent Falls -CT head showed no acute changes 4. CKD3 -BUN/Cr levels have normalized 5. HTN: -BP is currently 129/71 and is stable -Continue lisinopril and Metoprolol w/ hold parameters 6. Diastolic CHF/Alcoholic Cardiomyopathy/Pulmonary HTN -No signs of exacerbation -Patient is currently on lisinopril and metoprolol 7. Paroxysmal A. fib -Patient is currently on metoprolol which will help w/ rate control -Patient given Heparin 1,000 units 8. DLP -Continue Pravastatin 9. IDDM2: -Patient on insulin sliding scale and Levemir, will continue 10. Chronic COPD -Continue Symbicort 11. Neuropathy/Chronic Pain 2/2 DDD -Continue Tylenol PRN 12. Gout -Continue allopurinol 13. GERD -Continue omeprazole 14. DVT Prophylaxis: -Patient given Heparin 1,000 units Dispo: Patient will receive IV antibiotics group home and will need PICC line placed tomorrow VS,Rubens, I+O VS, Javibonsury, I+O Laboratory Tests 09/01/20 06:24 09/01/20 09:50 Vital Signs Date Time Temp Pulse Resp B/P (MAP) Pulse Ox O2 Delivery O2 Flow Rate FiO2 09/01/20 16:07 97.2 60 18 97 Room Air 09/01/20 14:00 129/71 (90) I&O- Last 24 Hours up to 6 AM 09/01/20 06:00 Intake Total 1060 ml Output Total 0 ml Balance 1060 ml GME ATTESTATION GME ATTESTATION My faculty preceptor for this patient encounter was physically present during the encounter and was fully available. All aspects of the patient interview, examination, medical decision making process, and medical care plan development were reviewed and approved by the faculty preceptor. The faculty preceptor is aware and concurs with the plan as stated in the body of this note and will attest to such by his/her cosignature. GME ATTESTATION GME ATTESTATION My faculty preceptor for this patient encounter was physically present during the encounter and was fully available. All aspects of the patient interview, examination, medical decision making process, and medical care plan development were reviewed and approved by the faculty preceptor. The faculty preceptor is aware and concurs with the plan as stated in the body of this note and will attest to such by his/her cosignature. ATTENDING NOTE Attending Note: Patient seen and examined independently. Agree with student's note. KENNY LONG OMS-IV Sep 01, 2020 16:52 RICARDO JEAN BAPTISTE MD Sep 01, 2020 18:18
--- NOTE | 2020-09-01 17:12 | REP ---
PROCEDURE NAME: PICC LINE INSERTION W/SITERITE CLINICAL INFORMATION: osteomyelitis. COMPARISON: None. PROCEDURE DESCRIPTION: The procedure was performed by CORKY Ace, under the direct supervision of Dr. Joseph. The risks and benefits of the procedure were explained to the patient and an informed consent was obtained both verbally and written. Directly prior to the start of the procedure a formal time-out was completed in the procedure room. The left medial brachial vein was localized using ultrasound guidance. The skin was prepped and draped in sterile fashion. One mL of 1% lidocaine 10 mg/mL was used as a local anesthetic. Using ultrasound guidance the left medial brachial vein was cannulated, and a 0.018 guidewire was inserted and advanced to the level of SVC using fluoroscopic guidance. The needle was removed and a 4.5 Romanian dilator and peel-away sheath was inserted over the guidewire. A 4.5 Romanian single lumen catheter was cut to a length of 50 cm. The dilator was removed and the catheter was inserted over the guidewire with the tip ending at the level of the SVC. The peel-away sheath was removed and the catheter was flushed with heparinized saline as per hospital protocol. The catheter was affixed to the skin and a sterile dressing was applied. 0.2 minutes of fluoroscopy time was utilized for this procedure. Some fluoroscopic images are performed with last image hold technology. These images require no additional radiation. The patient tolerated the procedure well and there were no immediate complications. CONCLUSION: PICC line insertion into the left medial brachial vein. <Electronically signed by Pam Mills > 09/01/20 170 <Electronically signed by Julian Joseph > 09/01/20 1707
[2020-09-01] MEDS: SODIUM CHLORIDE 0.9% INJ 10 ML SYR IV SCH (18:23)
[2020-09-01] MEDS: LACTOBACILLUS ACIDOPHILUS CAP (BACID) PO SCH (18:24)
[2020-09-01 22:00] VITALS: BP 127/67
[2020-09-02] MEDS: PIPERACILLIN/TAZOBACTAM SOD 3.375 GM in D5W MINI-BAG PLUS 50 ML IV SCH ×4 (04:09→21:30)
[2020-09-02] MEDS: SODIUM CHLORIDE 0.9% INJ 10 ML SYR IV SCH ×2 (05:18→17:17)
[2020-09-02] MEDS: SLF 3 ML SYR IV SCH (05:18)
[2020-09-02 06:00] VITALS: BP 129/69
[2020-09-02 06:32] LABS: BASO % 0.7 % (0.0-1.0); EOS # 0.1 10^3/uL (0.0-0.5); EOS % 2.6 % (0.0-3.0); HEMATOCRIT 29.1 % (42.0-52.0); HEMOGLOBIN 9.2 g/dl (13.5-17.5); LYMPH # 1.2 10^3/uL (1.5-5.0); LYMPH % 22.5 % (24.0-44.0); MEAN CORPUSCULAR HEMOGLOBIN 26.7 pg (27.0-33.0); MEAN CORPUSCULAR HGB CONC 31.6 g/dl (32.0-36.5); MEAN CORPUSCULAR VOLUME 84.6 fl (80.0-96.0); MONO # 0.4 10^3/uL (0.0-0.8); MONO % 8.1 % (0.0-5.0); NEUTROPHILS # 3.5 10^3/uL (1.5-8.5); NEUTROPHILS % 64.8 % (36.0-66.0); PLATELET COUNT, AUTOMATED 374 10^3/uL (150-450); RED BLOOD COUNT 3.44 10^6/uL (4.30-6.10); WHITE BLOOD COUNT 5.4 10^3/uL (4.0-10.0)
[2020-09-02 06:59] LABS: BLOOD UREA NITROGEN 9 MG/DL (7-18); CALCIUM LEVEL 8.5 MG/DL (8.8-10.2); CARBON DIOXIDE LEVEL 27 MEQ/L (21-32); CHLORIDE LEVEL 100 MEQ/L (98-107); CREATININE FOR GFR 0.95 MG/DL (0.70-1.30); GLOMERULAR FILTRATION RATE > 60.0 (>42); GLUCOSE, FASTING 341 MG/DL (70-100); MAGNESIUM LEVEL 1.7 MG/DL (1.8-2.4); POTASSIUM SERUM 4.6 MEQ/L (3.5-5.1); SODIUM LEVEL 134 MEQ/L (136-145)
[2020-09-02] MEDS: HumaLOG INSULIN (NovoLOG) PER UNIT SC SCH ×4 (07:30→21:31)
[2020-09-02] MEDS: SYMBICORT 80/4.5MCG INHALER 6GM INH SCH ×2 (09:18→19:51)
[2020-09-02] MEDS: LACTOBACILLUS ACIDOPHILUS CAP (BACID) PO SCH ×2 (09:35→17:16)
[2020-09-02] MEDS: ASPIRIN 81 MG ENTERIC TAB PO SCH (09:35)
[2020-09-02] MEDS: CYANOCOBALAMIN 500 MCG TAB PO SCH (09:36)
[2020-09-02] MEDS: VITAMIN D 1,000 INTERNATIONAL UNITS TABLET PO SCH (09:41)
[2020-09-02] MEDS: MULTIVITAMINS/MINERALS THERAP 1 TAB PO SCH (09:41)
[2020-09-02] MEDS: lisinopriL 20 MG TAB PO SCH (09:41)
[2020-09-02] MEDS: OMEPRAZOLE 20 MG CAP PO SCH (09:41)
[2020-09-02] MEDS: PRAVASTATIN 20 MG TAB PO SCH (09:45)
[2020-09-02] MEDS: MAGNESIUM OXIDE 400 MG TAB (MAG-OX) PO SCH ×3 (09:45→21:29)
[2020-09-02] MEDS: METOPROLOL SUCC (TopROL XL) 50MG **XL** TAB PO SCH ×2 (09:45→21:30)
[2020-09-02] MEDS: LEVEMIR (INSULIN DETEMIR) 1 UNITS/0.01ML SC SCH ×2 (09:46→21:31)
[2020-09-02] MEDS: LACTIC ACID 12% LOTION 225 GM BTL TOP SCH (09:46)
[2020-09-02] MEDS: SODIUM CHLORIDE 0.9% INJ 10 ML SYR IV PRN ×2 (11:19→14:14)
--- NOTE | 2020-09-02 11:43 | IPNPDOC ---
Date Seen The patient was seen on 09/02/20. Progress Note SUBJECTIVE: Patient was seen and examined this morning. He currently has no new complaints. There have been no adverse events reported overnight. Patient had left arm PICC line inserted yesterday which went well. Patient denies any shortness of breath or chest pain OBJECTIVE PHYSICAL EXAMINATION: VITAL SIGNS: Please see below. GENERAL: Awake, alert, and oriented. Does not appear to be in acute distress. Lying comfortably in bed HEENT: Atraumatic, normocephalic. Eyes are nonicteric. Trachea is midline CARDIOVASCULAR: Normal S1. S2. Regular rate and rhythm. No clicks, rubs, or murmurs RESPIRATORY: Clear breath sounds bilaterally. Good respiratory effort. No wheezes, rhonchi or rales ABDOMINAL: Soft, nondistended. Nontender. Normoactive bowel sounds throughout EXTREMITIES: No edema. Left foot bandaged. No interval change. No purulent drainage or erythema NEUROLOGICAL: No focal neurological deficits PSYCHOLOGICAL: Mood and affect appear appropriate LABORATORY DATA, IMAGING STUDIES, MICROBIOLOGY: Please see below. DVT prophylaxis ordered?: Heparin SQ ASSESSMENT AND PLAN: Patient is a 70 year old male with a past medical history significant for HTN, alcoholic cardiomyopathy, paroxysmal atrial fibrillation, IDDM@, chronic pain, and diabetic foot ulcers who presented to [facility] after a fall. Patient was found to have a left foot ulcer with extensive involvement of the ca lcaneous and tibiotal joint. Patient was seen by Podiatry and General Surgery with recommendations for BKA. Patient did not want amputation. Patient evaluated by ID with recommendations to continue Zosyn IV outpatient PROBLEMS: 1. Left Foot Ulcer with osteomyelitis involving the calcaneus and -Patient appears to have extensive involvement of the calcaneus and probable tibiotalar joint septic arthritis. Unlikely to heal with antibiotics. Ultimately patient will likely need amputation in the future however he has declined this. Patient has been evaluated by ID with recommendations to continue IV Zosyn. -Cultures resulted polymicrobial with Klebsiella, E. faecalis, and Streptococcus sanguinous -PICC line placed yesterday. Will continue Zosyn -CRP trending down -Bacid BID PO -ID consulted. Recommendations and assistance in management appreciated 2. Normocytic Anemia -Currently stable. Likely multifactorial to CKD and iron deficiency. -Iron studies demonstrating low iron. Will supplement 3. Electrolyte Disturbance -Patient has persistent hypomagnesemia. Will replete. Possibly secondary to patients diabetes. -Will continue to monitor 4. Recurrent Falls -Patient is a fall risk. He has neuropathy likely 2/2 poorly controlled diabetes which increases his risk of fall. Given his osteomyelitis his gait will be more impaired. -Patient is working with PT 5. Cognitive Impairment -Patient has been noted to fluctuation in his mentation. Will have cognitive assessment 6. HTN -Currently normotensive. Will continue current medications 7. CKD3 -Stable 8. Diastolic CHF/Alcoholic Cardiomyopathy/Pulmonary HTN -Currently stable 9. Paroxysmal Atrial Fibrillation -Patient is currently in sinus rhythm. -Patient was on Pradaxa. This was discontinued on admission due to a head laceration and hematuria. Patient will be restarted on anticoagulation before discharge 10. DLP -Patient is currently on Pravastatin. Given his diabetes this should be changed to a high intensity statin such as atorvastatin or rosuvastatin. Will need to determine if the patient had an adverse reaction to high intensity statin 11. Chronic COPD -Currently stable 12. IDDM2 with nephropathy and neuropathy -Increased levemir to 14 units BID due to elevated BGL -ACHS coverage per sliding scale 13. Gout -Stable 14. GERD -Continue Prilosec 15. DVT Prophylaxis -Heparin SQ DISPOSITION: PICC line placed. Patient will continue Zosyn for 6 weeks with end of therapy date 09/29/2020. Pending PT clearance. Likely D/C in 48 hours Attending Note: Patient seen and examined independently. Agree with resident's note. VS, I&O, 24H, Fishbone Vital Signs/I&O Vital Signs Date Time Temp Pulse Resp B/P (MAP) Pulse Ox O2 Delivery O2 Flow Rate FiO2 09/02/20 09:45 97 131/68 09/02/20 06:00 99.4 18 97 Room Air I&O- Last 24 Hours up to 6 AM 09/02/20 05:59 Intake Total 1760 ml Output Total 300 ml Balance 1460 ml Laboratory Data 24H LABS Laboratory Tests 2 09/01/20 11:41: Bedside Glucose (Misc Panel) 237H 09/01/20 17:04: Bedside Glucose (Misc Panel) 188H 09/01/20 21:23: Bedside Glucose (Misc Panel) 313H 09/02/20 06:08: Immature Granulocyte % (Auto) 1.3, Neutrophils (%) (Auto) 64.8, Lymphocytes (%) (Auto) 22.5L, Monocytes (%) (Auto) 8.1H, Eosinophils (%) (Auto) 2.6, Basophils (%) (Auto) 0.7, Neutrophils # (Auto) 3.5, Lymphocytes # (Auto) 1.2L, Monocytes # (Auto) 0.4, Eosinophils # (Auto) 0.1, Basophils # (Auto) 0.0, Nucleated Red Blood Cells % (auto) 0.0, Anion Gap 7L, Glomerular Filtration Rate > 60.0, Calcium Level 8.5L, Magnesium Level 1.7L CBC/BMP Laboratory Tests 09/02/20 06:08 Microbiology Microbiology 08/28/20 Anaerobic Culture, Received Pending 08/28/20 Gram Stain - Final, Complete 08/28/20 Abscess Culture - Final, Complete Klebsiella Pneumoniae Enterococcus Faecalis 08/27/20 Gram Stain - Final, Complete 08/27/20 Wound Culture - Final, Complete Klebsiella Pneumoniae Enterococcus Faecalis Streptococcus Sanguinis 08/26/20 Urine Culture - Final, Complete 08/25/20 Blood Culture - Final, Complete NO GROWTH AFTER 5 DAYS 08/25/20 Blood Culture - Final, Complete NO GROWTH AFTER 5 DAYS NAI SKINNER DO Sep 02, 2020 11:43 RICARDO JEAN BAPTISTE MD Sep 05, 2020 06:40
[2020-09-02] MEDS ORDERED: HEPARIN SOD (PORCINE) 5000UNITS/ML 1ML VIAL/SYRINGE SQ SCH (11:45)
[2020-09-02] MEDS: MAG SULF 1GM/100ML (MAG RUN) 1 GM in IV 1 EA IV SCH ×2 (12:17→14:14)
[2020-09-02] MEDS: FERROUS SULFATE 325MG TAB PO SCH ×3 (12:18→21:30)
[2020-09-02 14:00] VITALS: BP 127/67
[2020-09-02] MEDS ORDERED: CALCIUM CARBONATE 500 MG CHEW U/D PO ONE (20:00)
[2020-09-02] MEDS: HEPARIN SOD (PORCINE) 5000UNITS/ML 1ML VIAL/SYRINGE SQ SCH (21:29)
[2020-09-02 22:00] VITALS: BP 127/69
[2020-09-03] MEDS: PIPERACILLIN/TAZOBACTAM SOD 3.375 GM in D5W MINI-BAG PLUS 50 ML IV SCH ×4 (04:18→21:16)
[2020-09-03] MEDS: HEPARIN SOD (PORCINE) 5000UNITS/ML 1ML VIAL/SYRINGE SQ SCH ×3 (05:57→21:15)
[2020-09-03] MEDS: SODIUM CHLORIDE 0.9% INJ 10 ML SYR IV SCH ×2 (05:57→17:25)
[2020-09-03 06:00] VITALS: BP 140/63
[2020-09-03 06:12] LABS: BASO % 0.4 % (0.0-1.0); EOS # 0.2 10^3/uL (0.0-0.5); EOS % 2.3 % (0.0-3.0); HEMATOCRIT 26.9 % (42.0-52.0); HEMOGLOBIN 8.7 g/dl (13.5-17.5); LYMPH # 1.5 10^3/uL (1.5-5.0); MEAN CORPUSCULAR HEMOGLOBIN 27.3 pg (27.0-33.0); MEAN CORPUSCULAR HGB CONC 32.3 g/dl (32.0-36.5); MEAN CORPUSCULAR VOLUME 84.3 fl (80.0-96.0); MONO # 0.5 10^3/uL (0.0-0.8); MONO % 7.1 % (0.0-5.0); NEUTROPHILS # 4.7 10^3/uL (1.5-8.5); NEUTROPHILS % 67.1 % (36.0-66.0); PLATELET COUNT, AUTOMATED 376 10^3/uL (150-450); RED BLOOD COUNT 3.19 10^6/uL (4.30-6.10)
[2020-09-03 06:30] LABS: BLOOD UREA NITROGEN 11 MG/DL (7-18); C REACTIVE PROTEIN QUANTITATIV 5.07 MG/DL (0.00-0.30); CARBON DIOXIDE LEVEL 30 MEQ/L (21-32); CHLORIDE LEVEL 103 MEQ/L (98-107); CREATININE FOR GFR 0.81 MG/DL (0.70-1.30); GLOMERULAR FILTRATION RATE > 60.0 (>42); GLUCOSE, FASTING 152 MG/DL (70-100); MAGNESIUM LEVEL 1.6 MG/DL (1.8-2.4); POTASSIUM SERUM 3.9 MEQ/L (3.5-5.1); SODIUM LEVEL 138 MEQ/L (136-145)
[2020-09-03 06:49] LABS: ERYTHROCYTE SEDIMENTATION RATE 68 mm/hr (0-20)
[2020-09-03] MEDS: SYMBICORT 80/4.5MCG INHALER 6GM INH SCH ×2 (07:25→20:40)
[2020-09-03] MEDS: MAGNESIUM OXIDE 400 MG TAB (MAG-OX) PO SCH ×3 (08:17→21:14)
[2020-09-03] MEDS: MAG SULF 1GM/100ML (MAG RUN) 1 GM in IV 1 EA IV SCH ×2 (08:17→10:15)
[2020-09-03] MEDS: MULTIVITAMINS/MINERALS THERAP 1 TAB PO SCH (08:17)
[2020-09-03] MEDS: OMEPRAZOLE 20 MG CAP PO SCH (08:18)
[2020-09-03] MEDS: LACTOBACILLUS ACIDOPHILUS CAP (BACID) PO SCH ×2 (08:18→17:22)
[2020-09-03] MEDS: FERROUS SULFATE 325MG TAB PO SCH ×3 (08:18→21:14)
[2020-09-03] MEDS: PRAVASTATIN 20 MG TAB PO SCH (08:18)
[2020-09-03] MEDS: ASPIRIN 81 MG ENTERIC TAB PO SCH (08:18)
[2020-09-03] MEDS: allopurinoL 100 MG TAB PO SCH (08:18)
[2020-09-03] MEDS: CYANOCOBALAMIN 500 MCG TAB PO SCH (08:19)
[2020-09-03] MEDS: HumaLOG INSULIN (NovoLOG) PER UNIT SC SCH ×4 (08:19→21:00)
[2020-09-03] MEDS: VITAMIN D 1,000 INTERNATIONAL UNITS TABLET PO SCH (08:19)
[2020-09-03] MEDS: LACTIC ACID 12% LOTION 225 GM BTL TOP SCH (08:21)
[2020-09-03] MEDS: LEVEMIR (INSULIN DETEMIR) 1 UNITS/0.01ML SC SCH ×2 (08:21→21:15)
[2020-09-03] MEDS: lisinopriL 20 MG TAB PO SCH (08:23)
[2020-09-03] MEDS: METOPROLOL SUCC (TopROL XL) 50MG **XL** TAB PO SCH ×2 (08:23→21:18)
--- NOTE | 2020-09-03 09:28 | IPNPDOC ---
Text Note Date of Service The patient was seen on 09/03/20. NOTE CC: Fall Subjective: Eran Ring is a 70 yr old male w/ PMHx of HTN, diastolic CHF, alcoholic cardiomyopathy, paroxysmal A. fib, DLP, CKD3, IDDM2, Depression, Neuropathy, Chronic Pain 2/2 DDD, Gout, Diabetic foot ulcer presented to the ED w/ a fall. Today, patient has no complaints. Patient states that he had PT/OT yesterday and conveyed his frustration with their methods. I spoke with one of the nurses yesterday who stated that the patient has been noncompliant with PT /OT and that he at one point also tried to take his PICC line out. Last night, patient had an episode of heartburn and was given TUMS, which relieved his pain. Patient is still anxious about stay in hospital. Cognitive evaluation was ordered and will be done today. Objective: Vitals: See below General: Patient in no acute distress, anxious and agitated, alert and oriented x3 Cardiovascular: RRR, no murmurs or gallops, normal S1 and S2 Respiratory: Lungs clear to auscultation bilaterally, no wheezing or crackles GI: Abdomen soft, nontender, nondistended, no hepatomegaly, normal bowel sounds x4 Extremities: PICC line appreciated in left arm, +1 pitting edema in left lower extremity, left foot covered w/ bandage wrap and gauze, +2/4 pedal pulses on right foot, no pitting edema on right foot Labs: See below Imaging: No new imaging to report Assessment: Eran Ring is a 70 yr old male PMHx of HTN, diastolic CHF, alcoholic cardiomyopathy, paroxsymal Afib, DLP, CKD3, IDDM2, Depression, Neuropathy, Chronic Pain 2/2 DDD, Gout, Diabetic foot ulcer presented to the ED w/ a fall. Patient has been medically cleared with plans to have [facility]cf IV antibiotics and follow up appointments w/ Dr. Zuniga outpatient. Patient has not been cleared by PT/OT yet and a cognitive evaluation was ordered yesterday and will take place today. Plan: 1. Left foot ulcer 2/2 IDDM2 - left foot osteomyelitis -X-ray of foot previously showed fracture of calcaneus secondary to osteomyelitis -Patient has history of IDDM2 and most likely contributed to foot ulcer and osteomyelitis development -Patient currently has IV PICC line placed and is receiving IV Zosyn -CRP is trending down from 7.08 to 5.07 2. Normocytic Anemia: -Most likely due to CKD3 and IDDM2 -Patient's hemoglobin trended down from 9.2 to 8.7 -Patient is currently receiving iron supplementation -Patient has had consistent range of hemoglobin between 8 to 10, will continue to monitor 3. Hypomagnesemia -Patient's magnesium level was 1.6, down from 2.0 previously -Patient will be given Magnesium 1 gm, will monitor levels 4. Heartburn -Patient stated he drank 2-3 cups of coffee yesterday -Was given TUMS overnight, heartburn resolved 5. Recurrent Falls -CT head showed no acute changes -Patient currently working w/ PT/OT -Cognitive Evaluation will be done today 6. CKD3 -BUN/Cr levels have normalized 7. HTN: -BP is currently 140/63 and is stable -Continue lisinopril and Metoprolol 8. Diastolic CHF/Alcoholic Cardiomyopathy/Pulmonary HTN -No signs of exacerbation -Patient is currently on lisinopril and metoprolol 9. Paroxysmal A. fib -Patient is currently on metoprolol which will help w/ rate control -Patient given Heparin 5,000 units SQ 10. DLP -Continue Pravastatin 11. IDDM2: -Patient on insulin sliding scale and Levemir, will continue 12. Chronic COPD -Continue Symbicort 13. Neuropathy/Chronic Pain 2/2 DDD -Continue Tylenol PRN 14. Gout -Continue allopurinol 15. GERD -Continue omeprazole 16. DVT Prophylaxis: -Patient given Heparin 5,000 units SQ Dispo: Patient has been cleared medically with instructions for IV chcf antibiotics, PICC line, and follow-up appointments w/ Dr. Zuniga. However, he has not been cleared by PT/OT, will see how he does today. Also pending subacute rehab placement. VS,Javibone, I+O VS, Javibone, I+O Laboratory Tests 09/03/20 05:56 Vital Signs Date Time Temp Pulse Resp B/P (MAP) Pulse Ox O2 Delivery O2 Flow Rate FiO2 09/03/20 08:23 85 135/80 09/03/20 06:00 97.4 16 95 Room Air I&O- Last 24 Hours up to 6 AM 09/03/20 06:00 Intake Total 1360 ml Output Total 975 ml Balance 385 ml GME ATTESTATION GME ATTESTATION My faculty preceptor for this patient encounter was physically present during the encounter and was fully available. All aspects of the patient interview, examination, medical decision making process, and medical care plan development were reviewed and approved by the faculty preceptor. The faculty preceptor is aware and concurs with the plan as stated in the body of this note and will attest to such by his/her cosignature. ATTENDING NOTE Attending Note: Patient seen and examined independently. Agree with student's note. KENNY LONG OMS-IV Sep 03, 2020 09:28 RICARDO JEAN BAPTISTE MD Sep 05, 2020 07:04
[2020-09-03 14:00] VITALS: BP 112/57
--- NOTE | 2020-09-03 14:58 | IPN ---
DATE: 09/03/2020 SUBJECTIVE: Patient seen and examined at bedside. He denies new complaints and states he wants to go home. OBJECTIVE: Vital signs are reviewed. He has been afebrile. Labs have been reviewed. White count is 7, ESR 68, and CRP is 5.07. On lower extremity examination erythema and edema are improved. There is no longer any purulence coming from the incisions. ASSESSMENT: This is a 60-year-old diabetic male with calcaneal osteomyelitis and fracture. PLAN: Antibiotics per infectious disease. Patient can be discharge once antibiotics are in place and he has been approved by therapy. He is anxious to go home and will not tolerate going to a rehab facility. He is going to follow- up with myself and Dr. Woodard next week. REMBERTO
[2020-09-03 22:00] VITALS: BP 129/70
[2020-09-04] MEDS: PIPERACILLIN/TAZOBACTAM SOD 3.375 GM in D5W MINI-BAG PLUS 50 ML IV SCH ×4 (04:27→20:54)
[2020-09-04 06:00] VITALS: BP 152/84
[2020-09-04] MEDS: HEPARIN SOD (PORCINE) 5000UNITS/ML 1ML VIAL/SYRINGE SQ SCH ×3 (06:00→20:55)
[2020-09-04] MEDS: SODIUM CHLORIDE 0.9% INJ 10 ML SYR IV SCH ×2 (06:00→17:23)
[2020-09-04 06:31] LABS: BASO # 0.1 10^3/uL (0.0-0.2); BASO % 0.5 % (0.0-1.0); EOS # 0.2 10^3/uL (0.0-0.5); EOS % 1.9 % (0.0-3.0); HEMATOCRIT 29.9 % (42.0-52.0); HEMOGLOBIN 9.1 g/dl (13.5-17.5); LYMPH # 2.1 10^3/uL (1.5-5.0); LYMPH % 20.5 % (24.0-44.0); MEAN CORPUSCULAR HEMOGLOBIN 25.9 pg (27.0-33.0); MEAN CORPUSCULAR HGB CONC 30.4 g/dl (32.0-36.5); MEAN CORPUSCULAR VOLUME 84.9 fl (80.0-96.0); MONO # 0.7 10^3/uL (0.0-0.8); MONO % 6.7 % (0.0-5.0); NEUTROPHILS # 7.1 10^3/uL (1.5-8.5); NEUTROPHILS % 69.1 % (36.0-66.0); PLATELET COUNT, AUTOMATED 483 10^3/uL (150-450); RED BLOOD COUNT 3.52 10^6/uL (4.30-6.10); WHITE BLOOD COUNT 10.3 10^3/uL (4.0-10.0)
[2020-09-04] MEDS: SYMBICORT 80/4.5MCG INHALER 6GM INH SCH ×2 (07:18→19:39)
[2020-09-04 07:20] LABS: BLOOD UREA NITROGEN 12 MG/DL (7-18); CALCIUM LEVEL 8.3 MG/DL (8.8-10.2); CARBON DIOXIDE LEVEL 29 MEQ/L (21-32); CHLORIDE LEVEL 102 MEQ/L (98-107); CREATININE FOR GFR 0.82 MG/DL (0.70-1.30); GLOMERULAR FILTRATION RATE > 60.0 (>42); GLUCOSE, FASTING 78 MG/DL (70-100); MAGNESIUM LEVEL 1.8 MG/DL (1.8-2.4); POTASSIUM SERUM 4.3 MEQ/L (3.5-5.1); SODIUM LEVEL 135 MEQ/L (136-145)
[2020-09-04] MEDS: HumaLOG INSULIN (NovoLOG) PER UNIT SC SCH ×4 (07:30→20:57)
[2020-09-04] MEDS: LEVEMIR (INSULIN DETEMIR) 1 UNITS/0.01ML SC SCH ×2 (09:00→21:00)
[2020-09-04] MEDS: OMEPRAZOLE 20 MG CAP PO SCH (09:17)
[2020-09-04] MEDS: lisinopriL 20 MG TAB PO SCH (09:17)
[2020-09-04] MEDS: VITAMIN D 1,000 INTERNATIONAL UNITS TABLET PO SCH (09:17)
[2020-09-04] MEDS: LACTOBACILLUS ACIDOPHILUS CAP (BACID) PO SCH ×2 (09:17→17:19)
[2020-09-04] MEDS: ASPIRIN 81 MG ENTERIC TAB PO SCH (09:17)
[2020-09-04] MEDS: PRAVASTATIN 20 MG TAB PO SCH (09:18)
[2020-09-04] MEDS: FERROUS SULFATE 325MG TAB PO SCH ×3 (09:18→20:55)
[2020-09-04] MEDS: MULTIVITAMINS/MINERALS THERAP 1 TAB PO SCH (09:18)
[2020-09-04] MEDS: MAGNESIUM OXIDE 400 MG TAB (MAG-OX) PO SCH ×3 (09:18→20:55)
[2020-09-04] MEDS: METOPROLOL SUCC (TopROL XL) 50MG **XL** TAB PO SCH ×2 (09:18→20:56)
[2020-09-04] MEDS: CYANOCOBALAMIN 500 MCG TAB PO SCH (09:18)
[2020-09-04] MEDS: LACTIC ACID 12% LOTION 225 GM BTL TOP SCH (09:19)
[2020-09-05] MEDS: PIPERACILLIN/TAZOBACTAM SOD 3.375 GM in D5W MINI-BAG PLUS 50 ML IV SCH ×4 (03:55→22:05)
[2020-09-05] MEDS: SODIUM CHLORIDE 0.9% INJ 10 ML SYR IV SCH ×2 (04:59→17:06)
[2020-09-05] MEDS: HEPARIN SOD (PORCINE) 5000UNITS/ML 1ML VIAL/SYRINGE SQ SCH ×3 (04:59→22:06)
[2020-09-05 05:15] LABS: BASO % 0.6 % (0.0-1.0); EOS # 0.2 10^3/uL (0.0-0.5); EOS % 2.8 % (0.0-3.0); HEMATOCRIT 27.3 % (42.0-52.0); HEMOGLOBIN 8.4 g/dl (13.5-17.5); LYMPH # 1.7 10^3/uL (1.5-5.0); LYMPH % 23.4 % (24.0-44.0); MEAN CORPUSCULAR HEMOGLOBIN 26.3 pg (27.0-33.0); MEAN CORPUSCULAR HGB CONC 30.8 g/dl (32.0-36.5); MEAN CORPUSCULAR VOLUME 85.6 fl (80.0-96.0); MONO # 0.5 10^3/uL (0.0-0.8); MONO % 7.6 % (0.0-5.0); NEUTROPHILS # 4.6 10^3/uL (1.5-8.5); NEUTROPHILS % 64.3 % (36.0-66.0); PLATELET COUNT, AUTOMATED 387 10^3/uL (150-450); RED BLOOD COUNT 3.19 10^6/uL (4.30-6.10); WHITE BLOOD COUNT 7.1 10^3/uL (4.0-10.0)
[2020-09-05 05:47] LABS: BLOOD UREA NITROGEN 14 MG/DL (7-18); CALCIUM LEVEL 7.8 MG/DL (8.8-10.2); CARBON DIOXIDE LEVEL 28 MEQ/L (21-32); CHLORIDE LEVEL 102 MEQ/L (98-107); CREATININE FOR GFR 1.03 MG/DL (0.70-1.30); GLOMERULAR FILTRATION RATE > 60.0 (>42); GLUCOSE, FASTING 223 MG/DL (70-100); MAGNESIUM LEVEL 1.5 MG/DL (1.8-2.4); POTASSIUM SERUM 4.3 MEQ/L (3.5-5.1); SODIUM LEVEL 136 MEQ/L (136-145)
[2020-09-05 06:00] VITALS: BP 127/72
[2020-09-05] MEDS: SYMBICORT 80/4.5MCG INHALER 6GM INH SCH ×2 (07:25→20:27)
[2020-09-05] MEDS: LEVEMIR (INSULIN DETEMIR) 1 UNITS/0.01ML SC SCH ×2 (08:12→22:07)
[2020-09-05] MEDS: HumaLOG INSULIN (NovoLOG) PER UNIT SC SCH ×4 (08:12→22:07)
[2020-09-05] MEDS: OMEPRAZOLE 20 MG CAP PO SCH (08:13)
[2020-09-05] MEDS: MULTIVITAMINS/MINERALS THERAP 1 TAB PO SCH (08:13)
[2020-09-05] MEDS: FERROUS SULFATE 325MG TAB PO SCH ×3 (08:13→22:06)
[2020-09-05] MEDS: VITAMIN D 1,000 INTERNATIONAL UNITS TABLET PO SCH (08:14)
[2020-09-05] MEDS: PRAVASTATIN 20 MG TAB PO SCH (08:14)
[2020-09-05] MEDS: METOPROLOL SUCC (TopROL XL) 50MG **XL** TAB PO SCH ×2 (08:14→22:06)
[2020-09-05] MEDS: allopurinoL 100 MG TAB PO SCH (08:14)
[2020-09-05] MEDS: ASPIRIN 81 MG ENTERIC TAB PO SCH (08:14)
[2020-09-05] MEDS: MAGNESIUM OXIDE 400 MG TAB (MAG-OX) PO SCH ×3 (08:14→22:06)
[2020-09-05] MEDS: lisinopriL 20 MG TAB PO SCH (08:15)
[2020-09-05] MEDS: LACTIC ACID 12% LOTION 225 GM BTL TOP SCH (08:15)
[2020-09-05] MEDS: CYANOCOBALAMIN 500 MCG TAB PO SCH (08:15)
[2020-09-05] MEDS: LACTOBACILLUS ACIDOPHILUS CAP (BACID) PO SCH ×2 (08:15→17:05)
[2020-09-06] MEDS: PIPERACILLIN/TAZOBACTAM SOD 3.375 GM in D5W MINI-BAG PLUS 50 ML IV SCH ×4 (04:24→21:17)
[2020-09-06] MEDS: HEPARIN SOD (PORCINE) 5000UNITS/ML 1ML VIAL/SYRINGE SQ SCH ×3 (05:39→21:16)
[2020-09-06] MEDS: SODIUM CHLORIDE 0.9% INJ 10 ML SYR IV SCH ×2 (05:40→17:54)
[2020-09-06 06:00] VITALS: BP 130/74
[2020-09-06 06:00] LABS: BASO % 0.6 % (0.0-1.0); EOS # 0.2 10^3/uL (0.0-0.5); HEMATOCRIT 27.5 % (42.0-52.0); HEMOGLOBIN 8.4 g/dl (13.5-17.5); LYMPH # 1.7 10^3/uL (1.5-5.0); LYMPH % 24.1 % (24.0-44.0); MEAN CORPUSCULAR HGB CONC 30.5 g/dl (32.0-36.5); MEAN CORPUSCULAR VOLUME 85.1 fl (80.0-96.0); MONO # 0.5 10^3/uL (0.0-0.8); MONO % 6.8 % (0.0-5.0); NEUTROPHILS # 4.7 10^3/uL (1.5-8.5); NEUTROPHILS % 64.7 % (36.0-66.0); PLATELET COUNT, AUTOMATED 402 10^3/uL (150-450); RED BLOOD COUNT 3.23 10^6/uL (4.30-6.10); WHITE BLOOD COUNT 7.2 10^3/uL (4.0-10.0)
[2020-09-06 06:27] LABS: BLOOD UREA NITROGEN 17 MG/DL (7-18); CALCIUM LEVEL 8.4 MG/DL (8.8-10.2); CARBON DIOXIDE LEVEL 28 MEQ/L (21-32); CHLORIDE LEVEL 106 MEQ/L (98-107); CREATININE FOR GFR 0.92 MG/DL (0.70-1.30); GLOMERULAR FILTRATION RATE > 60.0 (>42); GLUCOSE, FASTING 125 MG/DL (70-100); MAGNESIUM LEVEL 1.6 MG/DL (1.8-2.4); POTASSIUM SERUM 4.3 MEQ/L (3.5-5.1); SODIUM LEVEL 138 MEQ/L (136-145)
[2020-09-06] MEDS: HumaLOG INSULIN (NovoLOG) PER UNIT SC SCH ×4 (07:30→21:15)
[2020-09-06] MEDS: LEVEMIR (INSULIN DETEMIR) 1 UNITS/0.01ML SC SCH ×2 (09:00→21:16)
[2020-09-06] MEDS: SYMBICORT 80/4.5MCG INHALER 6GM INH SCH ×2 (09:15→19:38)
[2020-09-06] MEDS: PRAVASTATIN 20 MG TAB PO SCH (09:43)
[2020-09-06] MEDS: MULTIVITAMINS/MINERALS THERAP 1 TAB PO SCH (09:43)
[2020-09-06] MEDS: VITAMIN D 1,000 INTERNATIONAL UNITS TABLET PO SCH (09:43)
[2020-09-06] MEDS: METOPROLOL SUCC (TopROL XL) 50MG **XL** TAB PO SCH ×2 (09:43→21:17)
[2020-09-06] MEDS: ASPIRIN 81 MG ENTERIC TAB PO SCH (09:43)
[2020-09-06] MEDS: lisinopriL 20 MG TAB PO SCH (09:43)
[2020-09-06] MEDS: OMEPRAZOLE 20 MG CAP PO SCH (09:43)
[2020-09-06] MEDS: MAGNESIUM OXIDE 400 MG TAB (MAG-OX) PO SCH ×3 (09:44→21:16)
[2020-09-06] MEDS: LACTIC ACID 12% LOTION 225 GM BTL TOP SCH (09:44)
[2020-09-06] MEDS: CYANOCOBALAMIN 500 MCG TAB PO SCH (09:44)
[2020-09-06] MEDS: LACTOBACILLUS ACIDOPHILUS CAP (BACID) PO SCH ×2 (09:44→17:54)
[2020-09-06] MEDS: FERROUS SULFATE 325MG TAB PO SCH ×3 (09:44→21:16)
[2020-09-06] MEDS ORDERED: ZOSY1SOL5 IV (11:05)
[2020-09-06 12:43] LABS: C REACTIVE PROTEIN QUANTITATIV 4.69 MG/DL (0.00-0.30)
[2020-09-06] MEDS: MAG SULF 1GM/100ML (MAG RUN) 1 GM in IV 1 EA IV SCH ×2 (13:08→15:08)
[2020-09-07] MEDS: PIPERACILLIN/TAZOBACTAM SOD 3.375 GM in D5W MINI-BAG PLUS 50 ML IV SCH ×4 (04:38→23:05)
[2020-09-07] MEDS: HEPARIN SOD (PORCINE) 5000UNITS/ML 1ML VIAL/SYRINGE SQ SCH ×3 (05:34→23:03)
[2020-09-07] MEDS: SODIUM CHLORIDE 0.9% INJ 10 ML SYR IV SCH ×2 (05:35→17:33)
[2020-09-07 06:00] VITALS: BP 134/70
[2020-09-07 06:02] LABS: BASO % 0.5 % (0.0-1.0); EOS # 0.2 10^3/uL (0.0-0.5); EOS % 3.2 % (0.0-3.0); HEMATOCRIT 26.2 % (42.0-52.0); HEMOGLOBIN 8.2 g/dl (13.5-17.5); LYMPH # 1.7 10^3/uL (1.5-5.0); LYMPH % 28.8 % (24.0-44.0); MEAN CORPUSCULAR HEMOGLOBIN 26.6 pg (27.0-33.0); MEAN CORPUSCULAR HGB CONC 31.3 g/dl (32.0-36.5); MEAN CORPUSCULAR VOLUME 85.1 fl (80.0-96.0); MONO # 0.4 10^3/uL (0.0-0.8); MONO % 7.5 % (0.0-5.0); NEUTROPHILS # 3.5 10^3/uL (1.5-8.5); NEUTROPHILS % 59.5 % (36.0-66.0); PLATELET COUNT, AUTOMATED 387 10^3/uL (150-450); RED BLOOD COUNT 3.08 10^6/uL (4.30-6.10); WHITE BLOOD COUNT 5.9 10^3/uL (4.0-10.0)
[2020-09-07 06:17] LABS: BLOOD UREA NITROGEN 16 MG/DL (7-18); CALCIUM LEVEL 8.3 MG/DL (8.8-10.2); CARBON DIOXIDE LEVEL 29 MEQ/L (21-32); CHLORIDE LEVEL 105 MEQ/L (98-107); CREATININE FOR GFR 0.86 MG/DL (0.70-1.30); GLOMERULAR FILTRATION RATE > 60.0 (>42); GLUCOSE, FASTING 152 MG/DL (70-100); MAGNESIUM LEVEL 1.7 MG/DL (1.8-2.4); POTASSIUM SERUM 4.1 MEQ/L (3.5-5.1); SODIUM LEVEL 138 MEQ/L (136-145)
[2020-09-07] MEDS: MAG SULF 1GM/100ML (MAG RUN) 1 GM in IV 1 EA IV SCH ×2 (06:53→08:25)
[2020-09-07] MEDS: SYMBICORT 80/4.5MCG INHALER 6GM INH SCH ×2 (07:01→19:26)
[2020-09-07] MEDS: LACTOBACILLUS ACIDOPHILUS CAP (BACID) PO SCH ×2 (08:23→17:33)
[2020-09-07] MEDS: HumaLOG INSULIN (NovoLOG) PER UNIT SC SCH ×4 (08:23→23:07)
[2020-09-07] MEDS: allopurinoL 100 MG TAB PO SCH (08:24)
[2020-09-07] MEDS: MULTIVITAMINS/MINERALS THERAP 1 TAB PO SCH (08:24)
[2020-09-07] MEDS: MAGNESIUM OXIDE 400 MG TAB (MAG-OX) PO SCH ×3 (08:24→23:06)
[2020-09-07] MEDS: VITAMIN D 1,000 INTERNATIONAL UNITS TABLET PO SCH (08:24)
[2020-09-07] MEDS: FERROUS SULFATE 325MG TAB PO SCH ×3 (08:24→23:05)
[2020-09-07] MEDS: OMEPRAZOLE 20 MG CAP PO SCH (08:25)
[2020-09-07] MEDS: PRAVASTATIN 20 MG TAB PO SCH (08:25)
[2020-09-07] MEDS: CYANOCOBALAMIN 500 MCG TAB PO SCH (08:25)
[2020-09-07] MEDS: ASPIRIN 81 MG ENTERIC TAB PO SCH (08:25)
[2020-09-07] MEDS: LEVEMIR (INSULIN DETEMIR) 1 UNITS/0.01ML SC SCH ×2 (08:26→23:09)
[2020-09-07] MEDS: LACTIC ACID 12% LOTION 225 GM BTL TOP SCH (08:27)
[2020-09-07] MEDS: METOPROLOL SUCC (TopROL XL) 50MG **XL** TAB PO SCH ×2 (08:29→23:06)
[2020-09-07] MEDS: lisinopriL 20 MG TAB PO SCH (08:30)
--- NOTE | 2020-09-07 08:52 | DS.PDOC ---
Discharge Summary General Date of Admission Aug 24, 2020 at 08:21 Date of Discharge 09/07/20 Specialist/Consultants Involve infectious disease, podiatry Discharge Summary PROCEDURES PERFORMED DURING STAY: Left foot and ankle incision and drainage with implantation of antibiotic beads; PICC line placement DISCHARGE DIAGNOSES: #Left DFU/left foot osteomyelitis #Normocytic Anemia: #Hypomagnesemia #Recurrent Falls #CKD3 #HTN: #Diastolic CHF/Alcoholic Cardiomyopathy/Pulmonary HTN #Paroxysmal A. fib #DLP #IDDM2: #COPD #Neuropathy/Chronic Pain #Gout #GERD COMPLICATIONS/CHIEF COMPLAINT: Fall, Hyponatremia, Laceration W/O Foreign Body. HISTORY OF PRESENT ILLNESS: 70M with a PMHx of HTN, Diastolic CHF, Alcoholic cardiomyopathy, Pulmonary HTN, Paroxysmal A. fib, DLP, IDDM2, CKD3, COPD, Depression, Neuropathy, Chronic pain 2/2 DDD, Gout, Diabetic ulcer of L foot who presented to the hospital after he fallen out of a taxi. Patient reported that 3-4 days prior to presentation, he had fallen and hit his head. Patient reported that he slipped and fell out of a taxi and came to the emergency room. Patient reported he did hit his head, and received abe for his laceration. HOSPITAL COURSE: 1. Left foot ulcer 2/2 IDDM2 - left foot osteomyelitis - underwent I&D with abx bead placement by podiatry - dr cat -X-ray of foot previously showed fracture of calcaneus secondary to osteomyelitis -Patient currently has IV PICC line placed and is receiving IV Zosyn - end date 09/29/20 - follow up with ID - weekly CBC/CMP/ESR/CRP 2. Normocytic Anemia: -Patient is currently receiving iron supplementation -Patient has had consistent range of hemoglobin between 8 to 10 3. Hypomagnesemia -oral supplementation - continue to monitor 4. Recurrent Falls -CT head showed no acute changes -PT/OT 5 CKD3 - baseline 6. HTN: -Continue lisinopril and Metoprolol 8. Diastolic CHF/Alcoholic Cardiomyopathy/Pulmonary HTN -No signs of exacerbation -Patient is currently on lisinopril and metoprolol 9. Paroxysmal A. fib -Patient is currently on metoprolol which will help w/ rate control -ok with podiatry to resume pradaxa 10. DLP -Continue Pravastatin 11. IDDM2: -Patient on insulin sliding scale and Levemir, will continue 12.COPD -Continue Symbicort 13. Neuropathy/Chronic Pain -Continue Tylenol PRN 14. Gout -Continue allopurinol 15. GERD -Continue omeprazole DISCHARGE MEDICATIONS: Please see below. ALLERGIES: Please see below. PHYSICAL EXAMINATION ON DISCHARGE: VITAL SIGNS: Please see below. General: Patient in no acute distress, anxious and agitated, alert and oriented x3 Cardiovascular: RRR, no murmurs or gallops, normal S1 and S2 Respiratory: Lungs clear to auscultation bilaterally, no wheezing or crackles GI: Abdomen soft, nontender, nondistended, no hepatomegaly, normal bowel sounds x4 Extremities: PICC line in left arm, +1 pitting edema in left lower extremity, left foot covered w/ bandage wrap and gauze, +2/4 pedal pulses on right foot, no pitting edema on right foot LABORATORY DATA: Please see below. ACTIVITY: [As tolerated]. DISCHARGE PLAN: [facility] DISCHARGE INSTRUCTIONS: 1. ID as scheduled 2. Abx as directed - end date 09/29/20 or as per ID 3. Weekly CBC/CMP/ESR/CRP 4. Recommend follow up magnesium 5. PCP in 3-5 days DISCHARGE CONDITION: [Stable]. TIME SPENT ON DISCHARGE: 35 minutes. Vital Signs/I&Os Vital Signs Date Time Temp Pulse Resp B/P (MAP) Pulse Ox O2 Delivery O2 Flow Rate FiO2 09/07/20 08:30 132/72 09/07/20 06:00 97.4 82 18 96 09/04/20 06:00 Room Air I&O- Last 24 Hours up to 6 AM 09/07/20 06:00 Intake Total 1980 ml Output Total 350 ml Balance 1630 ml Laboratory Data Labs 24H Laboratory Tests 2 09/06/20 11:37: Bedside Glucose (Misc Panel) 266H 09/06/20 12:19: Coronavirus (COVID-19)(PCR) NEGATIVE 09/06/20 16:56: Bedside Glucose (Misc Panel) 299H 09/06/20 20:49: Bedside Glucose (Misc Panel) 410H 09/07/20 05:42: Immature Granulocyte % (Auto) 0.5, Neutrophils (%) (Auto) 59.5, Lymphocytes (%) (Auto) 28.8, Monocytes (%) (Auto) 7.5H, Eosinophils (%) (Auto) 3.2H, Basophils (%) (Auto) 0.5, Neutrophils # (Auto) 3.5, Lymphocytes # (Auto) 1.7, Monocytes # (Auto) 0.4, Eosinophils # (Auto) 0.2, Basophils # (Auto) 0.0, Nucleated Red Blood Cells % (auto) 0.0, Anion Gap 4L, Glomerular Filtration Rate > 60.0, Calcium Level 8.3L, Magnesium Level 1.7L CBC/BMP Laboratory Tests 09/07/20 05:42 FSBS Laboratory Tests Test 09/06/20 11:37 09/06/20 16:56 09/06/20 20:49 Range/Units Bedside Glucose (Misc Panel) 266 299 410 83-110 MG/DL Microbiology Microbiology 08/28/20 Anaerobic Culture - Final, Complete Anaerobic Cocci 08/28/20 Gram Stain - Final, Complete 08/28/20 Abscess Culture - Final, Complete Klebsiella Pneumoniae Enterococcus Faecalis Discharge Medications Scheduled Allopurinol (Allopurinol) 100 Mg Tab, 50 MG PO Q2D, (Reported) Ammonium Lactate (Ammonium Lactate) 12% Lotion, 1 DOSE TOP DAILY, (Reported) APPLY TO FEET Aspirin (Aspirin EC) 81 Mg Tablet.dr, 81 MG PO DAILY, (Reported) Budesonide/Formoterol (Symbicort 80-4.5 Mcg Inhaler) 60 Puff/Inhaler Aers, 2 PUFF INH BID, (Reported) Bupropion HCl (Bupropion Xl) 300 Mg Tab.er.24h, 300 MG PO DAILY, (Reported) Cholecalciferol (Vitamin D3) (Vitamin D3) 1,000 Unit Tablet, 1,000 UNITS PO DAILY, (Reported) Cyanocobalamin (Vitamin B-12) (Vitamin B-12) 1,000 Mcg Tab, 1,000 MCG PO DAILY, (Reported) Dabigatran Etexilate Mesylate (Pradaxa) 150 Mg Capsule, 150 MG PO BID, (Reported) Esomeprazole Magnesium (Esomeprazole Magnesium) 40 Mg Capsule.dr, 40 MG PO DAILY, (Reported) Fluoxetine Hcl (Fluoxetine HCl) 20 Mg Cap, 20 MG PO DAILY, (Reported) Folic Acid (Folic Acid) 0.4 Mg Tablet, 400 MCG PO DAILY, (Reported) Gluc Coombs/Chondro Coombs A/Vit C/Mn (Glucosamine Chondroitin Tab) 1 Each Tablet, 1 TAB PO BID, (Reported) Insulin Degludec (Tresiba Flextouch U-100) 100 Unit/Ml Inj, 14 UNIT SC DAILY, (Reported) Insulin Human Lispro (Humalog) 1 Units/0.01 Ml Inj, 1 DOSE SC ACHS, (Reported) PER SLIDING SCALE Lisinopril (Lisinopril) 20 Mg Tab, 20 MG PO DAILY, (Reported) Magnesium Oxide (Magnesium Oxide) 400 Mg Tablet, 400 MG PO TID, (Reported) Metoprolol Succinate (Metoprolol Succinate) 50 Mg Tab.er.24h, 50 MG PO BID, (Reported) Milk Thistle Seed Extract (Milk Thistle) 200 Mg Capsule, 200 MG PO DAILY, (Reported) Multivitamins (Thera M Plus Tablet) 1 Each Tablet, 1 TAB PO DAILY, (Reported) Wtdtjhyyhdps-Xdhw-Kkeqscdj,Iso (Zosyn 3.375 gm/50 ml Galaxy) 3.375 Gm/50 Ml Froz.piggy, 1 KAMLESH IV Q6H Pravastatin Sodium (Pravachol) 20 Mg Tab, 20 MG PO DAILY, (Reported) Scheduled PRN Ciclopirox Olamine (Ciclopirox) 15 Gm Cream..g., 1 DOSE TOP TID PRN for RASH, (Reported) APPLY TO GROIN Mometasone Furoate (Mometasone Furoate) 50 Mcg/Act Spr, 2 PUFF NA DAILY PRN for NASAL CONGESTION, (Reported) Sildenafil Citrate (Viagra) 100 Mg Tab, 100 MG PO DAILY PRN for ERECTILE DYSFUNCTION, (Reported) Miscellaneous Medications [Patient Comment] , (Reported) UNABLE TO VERIFY MEDICATIONS WITH PATIENT - MED LIST OBTAINED FROM EXTERNAL MED HX AND PREVIOUS CLINIC VISIT Allergies Coded Allergies: No Known Allergies (Verified , 01/01/19) RICARDO JEAN BAPTISTE MD Sep 07, 2020 08:52
--- NOTE | 2020-09-07 12:14 | IPN ---
DATE: 09/06/2020 SUBJECTIVE: Eran is frustrated because he does not want to go to rehab at [facility]. He feels he can go home with the help of his . They both need each other. She is his support and he is her support. She has multiple sclerosis and he is concerned that she should not be home alone but he has not been able to offload from his heel and use the walker properly. He felt that the physical therapist was giving him confusing directions, and so he was frustrated. REVIEW OF SYSTEMS: He has no nausea, vomiting, diarrhea, abdominal pain, fever or chills. PHYSICAL EXAMINATION: VITAL SIGNS: Temperature is 98, pulse 69, respirations 18, blood pressure 130/74, O2 sat 96% on room air. GENERAL APPEARANCE: Healthy looking, upset, in no acute distress. HEART: Normal S1, S2, no murmurs, rubs or gallops. LUNGS: Clear. No rales, rhonchi or wheezes. ABDOMEN: Soft, no hepatosplenomegaly. BACK: No CVA tenderness. EXTREMITIES: No clubbing, cyanosis, or edema. Left ankle is swollen but no tenderness, no redness, normal range of motion of the ankle. There is an incision along the calcaneus measuring at least 10 cm with serosanguinous discharge. No purulence, no redness. There is some maceration of the heel around the Hydrofera blue. There is an incision along the medial malleolus that was surgically done, trying to get fluid out of the joint. MEDICATIONS: Zosyn 3.375 grams IV q. 6 hours. LABORATORY STUDIES: Foot culture had Klebsiella pneumonia, streptococcus sanguinous and anaerobic cocci from 08/27 and 08/28. White count 7.2, hemoglobin 8.4, hematocrit 27.5, platelets 402. Sodium 138, potassium 4.3, chloride 106, bicarbonate 28, BUN 17, creatinine 0.92, glucose 125, calcium 8.4, magnesium 1.6, CRP 4.69 down from 15.1. IMPRESSION: 1. Acute osteomyelitis of the left calcaneus with an ankle effusion although intraoperatively nothing could be drawn from the ankle joint. The patient does not have any evidence of a septic joint as he moves his ankle pretty well. He is currently on IV Zosyn with improved white count, CRP. Clinically the wound looks better. 2. Calcaneus fracture with risk of worsening if he has any weight bearing on that heel, and the patient has not been able to offload. He was ordered a scooter but it is not yet available. PLAN: Continue with IV Zosyn - The patient will be treated for a total of 6 weeks infec. He is currently day number thirteen of IV antibiotics. He is being evaluated from [facility]. The patient would like to go home. He had [facility] before on Sunday, Sunday, Sunday that helped him with his dressing changes and he followed up with Dr. Woodard with [facility]. REMBERTO
[2020-09-08] MEDS: PIPERACILLIN/TAZOBACTAM SOD 3.375 GM in D5W MINI-BAG PLUS 50 ML IV SCH ×4 (04:24→22:10)
[2020-09-08] MEDS: SODIUM CHLORIDE 0.9% INJ 10 ML SYR IV SCH ×2 (05:44→17:37)
[2020-09-08] MEDS: HEPARIN SOD (PORCINE) 5000UNITS/ML 1ML VIAL/SYRINGE SQ SCH ×3 (05:44→22:09)
[2020-09-08 06:00] VITALS: BP 139/74
[2020-09-08] MEDS: HumaLOG INSULIN (NovoLOG) PER UNIT SC SCH ×4 (07:30→22:13)
[2020-09-08] MEDS: SYMBICORT 80/4.5MCG INHALER 6GM INH SCH ×2 (07:42→19:48)
[2020-09-08] MEDS: CYANOCOBALAMIN 500 MCG TAB PO SCH (08:56)
[2020-09-08] MEDS: MAGNESIUM OXIDE 400 MG TAB (MAG-OX) PO SCH ×3 (08:56→22:08)
[2020-09-08] MEDS: ASPIRIN 81 MG ENTERIC TAB PO SCH (08:56)
[2020-09-08] MEDS: OMEPRAZOLE 20 MG CAP PO SCH (08:57)
[2020-09-08] MEDS: VITAMIN D 1,000 INTERNATIONAL UNITS TABLET PO SCH (08:57)
[2020-09-08] MEDS: FERROUS SULFATE 325MG TAB PO SCH ×3 (08:57→22:08)
[2020-09-08] MEDS: LEVEMIR (INSULIN DETEMIR) 1 UNITS/0.01ML SC SCH ×2 (08:57→22:11)
[2020-09-08] MEDS: METOPROLOL SUCC (TopROL XL) 50MG **XL** TAB PO SCH ×2 (08:57→22:10)
[2020-09-08] MEDS: PRAVASTATIN 20 MG TAB PO SCH (08:57)
[2020-09-08] MEDS: MULTIVITAMINS/MINERALS THERAP 1 TAB PO SCH (08:57)
[2020-09-08] MEDS: LACTOBACILLUS ACIDOPHILUS CAP (BACID) PO SCH ×2 (08:57→17:36)
[2020-09-08] MEDS: lisinopriL 20 MG TAB PO SCH (08:57)
[2020-09-08] MEDS: LACTIC ACID 12% LOTION 225 GM BTL TOP SCH (08:58)
[2020-09-08] MEDS: ACETAMINOPHEN TAB 650MG DOSE (2X325MG) PO PRN (18:50)
[2020-09-09] MEDS: PIPERACILLIN/TAZOBACTAM SOD 3.375 GM in D5W MINI-BAG PLUS 50 ML IV SCH ×2 (04:59→09:25)
[2020-09-09] MEDS: SODIUM CHLORIDE 0.9% INJ 10 ML SYR IV SCH (04:59)
[2020-09-09] MEDS: HEPARIN SOD (PORCINE) 5000UNITS/ML 1ML VIAL/SYRINGE SQ SCH (05:00)
[2020-09-09 06:00] VITALS: BP 144/79
[2020-09-09] MEDS: SYMBICORT 80/4.5MCG INHALER 6GM INH SCH (07:19)
[2020-09-09] MEDS: lisinopriL 20 MG TAB PO SCH (08:17)
[2020-09-09] MEDS: LACTOBACILLUS ACIDOPHILUS CAP (BACID) PO SCH (08:17)
[2020-09-09] MEDS: OMEPRAZOLE 20 MG CAP PO SCH (08:17)
[2020-09-09] MEDS: VITAMIN D 1,000 INTERNATIONAL UNITS TABLET PO SCH (08:17)
[2020-09-09 08:18] VITALS: BP 134/74
[2020-09-09] MEDS: MULTIVITAMINS/MINERALS THERAP 1 TAB PO SCH (08:18)
[2020-09-09] MEDS: ASPIRIN 81 MG ENTERIC TAB PO SCH (08:18)
[2020-09-09] MEDS: MAGNESIUM OXIDE 400 MG TAB (MAG-OX) PO SCH (08:18)
[2020-09-09] MEDS: PRAVASTATIN 20 MG TAB PO SCH (08:18)
[2020-09-09] MEDS: CYANOCOBALAMIN 500 MCG TAB PO SCH (08:18)
[2020-09-09] MEDS: METOPROLOL SUCC (TopROL XL) 50MG **XL** TAB PO SCH (08:18)
[2020-09-09] MEDS: allopurinoL 100 MG TAB PO SCH (08:19)
[2020-09-09] MEDS: LEVEMIR (INSULIN DETEMIR) 1 UNITS/0.01ML SC SCH (08:19)
[2020-09-09] MEDS: FERROUS SULFATE 325MG TAB PO SCH (08:19)
[2020-09-09] MEDS: HumaLOG INSULIN (NovoLOG) PER UNIT SC SCH ×2 (08:20→12:01)
[2020-09-09] MEDS: LACTIC ACID 12% LOTION 225 GM BTL TOP SCH (08:21)
[2020-09-09] MEDS ORDERED: ZOSY1SOL5 IV (10:00)
--- NOTE | 2020-09-09 10:41 | DS.PDOC ---
Discharge Summary General Date of Admission Aug 24, 2020 at 08:21 Date of Discharge 09/09/20 Discharge Summary ADDENDUM TO DISCHARGE SUMMARY: Pt was kept under ALC /SNF status until [facility] had a bed available. Pt had no other acute medical issues during his hospital stay. DISCHARGE PHYSICAL EXAMINATION: VITALS: SEE BELOW GENERAL APPEARANCE: aaoX3 no respiratory distress HEENT: no JVD moist mm no stridor HEART: Normal S1, S2, RRR no murmurs, rubs or gallops. LUNGS: AEBE CTAB No rales, rhonchi or wheezes. ABDOMEN: Soft, +BS x 4quadrants no rebound or guarding no hepatosplenomegaly. EXTREMITIES: No clubbing, cyanosis, or edema. Left ankle edema with calcaneal incision 8cm w/o purulence DISCHARGE MEDICATIONS: SEE BELOW DISCHARGE LABORATORY DATA: SEE BELOW TIME SPENT ON DISCHARGE: 30 MIN Vital Signs/I&Os Vital Signs Date Time Temp Pulse Resp B/P (MAP) Pulse Ox O2 Delivery O2 Flow Rate FiO2 09/09/20 08:18 88 134/74 09/09/20 06:00 97.1 20 96 09/08/20 06:00 Room Air I&O- Last 24 Hours up to 6 AM 09/09/20 06:00 Intake Total 2120 ml Output Total 800 ml Balance 1320 ml Laboratory Data Labs 24H Laboratory Tests 2 09/08/20 11:23: Bedside Glucose (Misc Panel) 125H 09/08/20 16:38: Bedside Glucose (Misc Panel) 261H 09/08/20 20:39: Bedside Glucose (Misc Panel) 341H 09/09/20 06:44: Bedside Glucose (Misc Panel) 179H FSBS Laboratory Tests Test 09/08/20 11:23 09/08/20 16:38 09/08/20 20:39 09/09/20 06:44 Range/Units Bedside Glucose (Misc Panel) 125 261 341 179 83-110 MG/DL Discharge Medications Scheduled Allopurinol (Allopurinol) 100 Mg Tab, 50 MG PO Q2D, (Reported) Ammonium Lactate (Ammonium Lactate) 12% Lotion, 1 DOSE TOP DAILY, (Reported) APPLY TO FEET Aspirin (Aspirin EC) 81 Mg Tablet.dr, 81 MG PO DAILY, (Reported) Budesonide/Formoterol (Symbicort 80-4.5 Mcg Inhaler) 60 Puff/Inhaler Aers, 2 PUFF INH BID, (Reported) Bupropion HCl (Bupropion Xl) 300 Mg Tab.er.24h, 300 MG PO DAILY, (Reported) Cholecalciferol (Vitamin D3) (Vitamin D3) 1,000 Unit Tablet, 1,000 UNITS PO DAILY, (Reported) Cyanocobalamin (Vitamin B-12) (Vitamin B-12) 1,000 Mcg Tab, 1,000 MCG PO DAILY, (Reported) Dabigatran Etexilate Mesylate (Pradaxa) 150 Mg Capsule, 150 MG PO BID, (Reported) Esomeprazole Magnesium (Esomeprazole Magnesium) 40 Mg Capsule.dr, 40 MG PO DAILY, (Reported) Fluoxetine Hcl (Fluoxetine HCl) 20 Mg Cap, 20 MG PO DAILY, (Reported) Folic Acid (Folic Acid) 0.4 Mg Tablet, 400 MCG PO DAILY, (Reported) Gluc Coombs/Chondro Coombs A/Vit C/Mn (Glucosamine Chondroitin Tab) 1 Each Tablet, 1 TAB PO BID, (Reported) Insulin Degludec (Tresiba Flextouch U-100) 100 Unit/Ml Inj, 14 UNIT SC DAILY, (Reported) Insulin Human Lispro (Humalog) 1 Units/0.01 Ml Inj, 1 DOSE SC ACHS, (Reported) PER SLIDING SCALE Lisinopril (Lisinopril) 20 Mg Tab, 20 MG PO DAILY, (Reported) Magnesium Oxide (Magnesium Oxide) 400 Mg Tablet, 400 MG PO TID, (Reported) Metoprolol Succinate (Metoprolol Succinate) 50 Mg Tab.er.24h, 50 MG PO BID, (Reported) Milk Thistle Seed Extract (Milk Thistle) 200 Mg Capsule, 200 MG PO DAILY, (Reported) Multivitamins (Thera M Plus Tablet) 1 Each Tablet, 1 TAB PO DAILY, (Reported) Kslsyzfjwlum-Jdag-Hcqffloc,Iso (Zosyn 3.375 gm/50 ml Galaxy) 3.375 Gm/50 Ml Froz.piggy, 1 KAMLESH IV Q6H Pravastatin Sodium (Pravachol) 20 Mg Tab, 20 MG PO DAILY, (Reported) Scheduled PRN Ciclopirox Olamine (Ciclopirox) 15 Gm Cream..g., 1 DOSE TOP TID PRN for RASH, (Reported) APPLY TO GROIN Mometasone Furoate (Mometasone Furoate) 50 Mcg/Act Spr, 2 PUFF NA DAILY PRN for NASAL CONGESTION, (Reported) Sildenafil Citrate (Viagra) 100 Mg Tab, 100 MG PO DAILY PRN for ERECTILE DYSFUNCTION, (Reported) Miscellaneous Medications [Patient Comment] , (Reported) UNABLE TO VERIFY MEDICATIONS WITH PATIENT - MED LIST OBTAINED FROM EXTERNAL MED HX AND PREVIOUS CLINIC VISIT Allergies Coded Allergies: No Known Allergies (Verified , 01/01/19) VINCENZO IRENE MD Sep 09, 2020 10:35
[2020-09-09] MEDS ORDERED: cefTRIAXone SOD 2 GM in D5W MINI-BAG PLUS 50 ML IV SCH (12:45)
== END 2020-09-09 13:18 | DRG 982 ==
LOC: M ED 04:20 → EDBD 04:20 → M ED INP 08:21 → ENRESERV 08:41 → M PCU 09:25 → M MSPAV 08-28 12:31
PROVIDERS: ADMIT Internal Medicine; ATTEND Internal Medicine
PROC: 0S9G0ZZ Drainage of Left Ankle Joint, Open Approach (ICD-10-PCS; principal; 2020-08-28 08:30)
PROC: 02HV33Z Insertion of Infusion Device into Superior Vena Cava, Percutaneous Approach (ICD-10-PCS; 2020-09-01)
DX: E11.621 Type 2 diabetes mellitus with foot ulcer (principal); E87.1 Hypo-osmolality and hyponatremia; M86.172 Other acute osteomyelitis, left ankle and foot; I50.30 Unspecified diastolic (congestive) heart failure; I42.6 Alcoholic cardiomyopathy; N18.30 Chronic kidney disease, stage 3 unspecified; I48.0 Paroxysmal atrial fibrillation; J44.9 Chronic obstructive pulmonary disease, unspecified; L97.529 Non-pressure chronic ulcer of other part of left foot with unspecified severity; E11.40 Type 2 diabetes mellitus with diabetic neuropathy, unspecified; S92.002A Unspecified fracture of left calcaneus, initial encounter for closed fracture; D64.9 Anemia, unspecified; E83.42 Hypomagnesemia; R29.6 Repeated falls; I27.20 Pulmonary hypertension, unspecified; Z79.899 Other long term (current) drug therapy; Z79.82 Long term (current) use of aspirin; Z79.4 Long term (current) use of insulin; F32.9 Major depressive disorder, single episode, unspecified; M10.9 Gout, unspecified; Z96.641 Presence of right artificial hip joint; R31.9 Hematuria, unspecified; W18.30XA Fall on same level, unspecified, initial encounter; Y92.009 Unspecified place in unspecified non-institutional (private) residence as the place of occurrence of the external cause

== ENCOUNTER → 2020-09-11 | Outpatient (REF) ==
[~2020-09-11] MED LIST changes: +AMMO12LO TOP; +ASPI-161 PO; -FOLI0.4T PO; +FOLI0.4T5 PO; +GLUCTAB6 PO; +MAGN400T3 PO; +VITMTA PO; +ZOSY1SOL5 IV
[2020-09-11 09:22] LABS: HEMATOCRIT 30.5 % (42.0-52.0); HEMOGLOBIN 9.3 g/dl (13.5-17.5); MEAN CORPUSCULAR HEMOGLOBIN 25.9 pg (27.0-33.0); MEAN CORPUSCULAR HGB CONC 30.5 g/dl (32.0-36.5); PLATELET COUNT, AUTOMATED 411 10^3/uL (150-450); RED BLOOD COUNT 3.59 10^6/uL (4.30-6.10); WHITE BLOOD COUNT 8.1 10^3/uL (4.0-10.0)
== END ==
LOC: SKLAB5 13:44
PROVIDERS: ATTEND Nurse Practitioner Family
DX: E83.42 Hypomagnesemia (principal)

== ENCOUNTER → 2020-09-15 | Outpatient (REF) ==
[~2020-09-15] MED LIST changes: +CEFD1CAP8 PO; +GLUC1KIT IM; -LISI-538 PO; +LISI10TA22 PO; -LISI10TA4 PO; +LISI20TA33 PO; +OMEP-221 PO; +RAME8TAB2 PO; +SANT250O8 TOP
== END ==
LOC: SKLAB5 09-09 14:23 → EDSTATUS 10-05 10:38
PROVIDERS: ATTEND Internal Medicine
DX: Z20.828 Contact with and (suspected) exposure to other viral communicable diseases (principal)

== ENCOUNTER → 2020-09-15 | Outpatient (REF) ==
[~2020-09-15] MED LIST changes: -CEFD1CAP8 PO; -GLUC1KIT IM; +LISI-538 PO; -LISI10TA22 PO; +LISI10TA4 PO; -LISI20TA33 PO; -OMEP-221 PO; -RAME8TAB2 PO; -SANT250O8 TOP
[2020-09-15 08:16] LABS: HEMATOCRIT 31.7 % (42.0-52.0); HEMOGLOBIN 9.7 g/dl (13.5-17.5); MEAN CORPUSCULAR HEMOGLOBIN 25.7 pg (27.0-33.0); MEAN CORPUSCULAR HGB CONC 30.6 g/dl (32.0-36.5); MEAN CORPUSCULAR VOLUME 83.9 fl (80.0-96.0); PLATELET COUNT, AUTOMATED 348 10^3/uL (150-450); RED BLOOD COUNT 3.78 10^6/uL (4.30-6.10); WHITE BLOOD COUNT 5.2 10^3/uL (4.0-10.0)
[2020-09-15 08:43] LABS: ALBUMIN 2.3 GM/DL (3.2-5.2); ALT/SGPT 12 U/L (12-78); BILIRUBIN,TOTAL 0.3 MG/DL (0.2-1.0); BLOOD UREA NITROGEN 14 MG/DL (7-18); C REACTIVE PROTEIN QUANTITATIV 8.19 MG/DL (0.00-0.30); CALCIUM LEVEL 9.2 MG/DL (8.8-10.2); CARBON DIOXIDE LEVEL 27 MEQ/L (21-32); CHLORIDE LEVEL 104 MEQ/L (98-107); CREATININE FOR GFR 0.92 MG/DL (0.70-1.30); GLOMERULAR FILTRATION RATE > 60.0 (>42); GLUCOSE, FASTING 252 MG/DL (70-100); MAGNESIUM LEVEL 1.5 MG/DL (1.8-2.4); POTASSIUM SERUM 4.4 MEQ/L (3.5-5.1); SODIUM LEVEL 138 MEQ/L (136-145); TOTAL PROTEIN 6.7 GM/DL (6.4-8.2)
[2020-09-15 08:44] LABS: ERYTHROCYTE SEDIMENTATION RATE 72 mm/hr (0-20)
== END ==
LOC: SKLAB5 07:23
PROVIDERS: ATTEND Internal Medicine
DX: M86.172 Other acute osteomyelitis, left ankle and foot (principal); E83.42 Hypomagnesemia

== ENCOUNTER → 2020-09-21 | Outpatient (REF) ==
[2020-09-21 09:07] LABS: HEMATOCRIT 32.9 % (42.0-52.0); HEMOGLOBIN 10.2 g/dl (13.5-17.5); MEAN CORPUSCULAR HEMOGLOBIN 26.2 pg (27.0-33.0); MEAN CORPUSCULAR VOLUME 84.6 fl (80.0-96.0); PLATELET COUNT, AUTOMATED 400 10^3/uL (150-450); RED BLOOD COUNT 3.89 10^6/uL (4.30-6.10); WHITE BLOOD COUNT 8.6 10^3/uL (4.0-10.0)
[2020-09-21 09:25] LABS: ERYTHROCYTE SEDIMENTATION RATE 60 mm/hr (0-20)
[2020-09-21 09:41] LABS: ALBUMIN 2.5 GM/DL (3.2-5.2); ALT/SGPT 13 U/L (12-78); BILIRUBIN,TOTAL 0.2 MG/DL (0.2-1.0); BLOOD UREA NITROGEN 29 MG/DL (7-18); C REACTIVE PROTEIN QUANTITATIV 2.16 MG/DL (0.00-0.30); CARBON DIOXIDE LEVEL 28 MEQ/L (21-32); CHLORIDE LEVEL 102 MEQ/L (98-107); CREATININE FOR GFR 0.94 MG/DL (0.70-1.30); GLOMERULAR FILTRATION RATE > 60.0 (>42); GLUCOSE, FASTING 268 MG/DL (70-100); MAGNESIUM LEVEL 1.6 MG/DL (1.8-2.4); POTASSIUM SERUM 4.5 MEQ/L (3.5-5.1); SODIUM LEVEL 134 MEQ/L (136-145); TOTAL PROTEIN 7.3 GM/DL (6.4-8.2)
== END ==
LOC: SKLAB5 07:24
PROVIDERS: ATTEND Internal Medicine
DX: M86.9 Osteomyelitis, unspecified (principal); E83.42 Hypomagnesemia

== ENCOUNTER → 2020-09-22 | Outpatient (REF) | LOC: SKLAB5 08:00 | PROVIDERS: ATTEND Internal Medicine | DX: Z20.828 Contact with and (suspected) exposure to other viral communicable diseases (principal) ==

== ENCOUNTER → 2020-09-28 | Outpatient (REF) ==
[2020-09-28 08:44] LABS: HEMATOCRIT 33.3 % (42.0-52.0); HEMOGLOBIN 10.1 g/dl (13.5-17.5); MEAN CORPUSCULAR HEMOGLOBIN 25.1 pg (27.0-33.0); MEAN CORPUSCULAR HGB CONC 30.3 g/dl (32.0-36.5); MEAN CORPUSCULAR VOLUME 82.8 fl (80.0-96.0); PLATELET COUNT, AUTOMATED 321 10^3/uL (150-450); RED BLOOD COUNT 4.02 10^6/uL (4.30-6.10); WHITE BLOOD COUNT 7.4 10^3/uL (4.0-10.0)
[2020-09-28 09:06] LABS: ERYTHROCYTE SEDIMENTATION RATE 47 mm/hr (0-20)
[2020-09-28 09:14] LABS: ALBUMIN 2.8 GM/DL (3.2-5.2); ALT/SGPT 18 U/L (12-78); BILIRUBIN,TOTAL 0.1 MG/DL (0.2-1.0); BLOOD UREA NITROGEN 39 MG/DL (7-18); C REACTIVE PROTEIN QUANTITATIV 1.82 MG/DL (0.00-0.30); CARBON DIOXIDE LEVEL 28 MEQ/L (21-32); CHLORIDE LEVEL 102 MEQ/L (98-107); CREATININE FOR GFR 0.94 MG/DL (0.70-1.30); GLOMERULAR FILTRATION RATE > 60.0 (>42); GLUCOSE, FASTING 309 MG/DL (70-100); POTASSIUM SERUM 4.5 MEQ/L (3.5-5.1); SODIUM LEVEL 136 MEQ/L (136-145); TOTAL PROTEIN 7.4 GM/DL (6.4-8.2)
== END ==
LOC: SKLAB5 08:04
PROVIDERS: ATTEND Internal Medicine
DX: M86.171 Other acute osteomyelitis, right ankle and foot (principal)

== ENCOUNTER → 2020-09-29 | Outpatient (REF) | LOC: SKLAB5 06:49 | PROVIDERS: ATTEND Family Medicine | DX: Z20.828 Contact with and (suspected) exposure to other viral communicable diseases (principal) ==

== ENCOUNTER → 2020-10-05 | Outpatient (REF) ==
[2020-10-05 10:04] LABS: HEMATOCRIT 37.1 % (42.0-52.0); HEMOGLOBIN 11.5 g/dl (13.5-17.5); MEAN CORPUSCULAR HEMOGLOBIN 25.5 pg (27.0-33.0); MEAN CORPUSCULAR VOLUME 82.3 fl (80.0-96.0); PLATELET COUNT, AUTOMATED 298 10^3/uL (150-450); RED BLOOD COUNT 4.51 10^6/uL (4.30-6.10)
[2020-10-05 10:35] LABS: ERYTHROCYTE SEDIMENTATION RATE 35 mm/hr (0-20)
[2020-10-05 10:49] LABS: ALBUMIN 3.1 GM/DL (3.2-5.2); ALT/SGPT 21 U/L (12-78); BILIRUBIN,TOTAL 0.3 MG/DL (0.2-1.0); BLOOD UREA NITROGEN 39 MG/DL (7-18); CALCIUM LEVEL 9.3 MG/DL (8.8-10.2); CARBON DIOXIDE LEVEL 28 MEQ/L (21-32); CHLORIDE LEVEL 99 MEQ/L (98-107); CREATININE FOR GFR 1.05 MG/DL (0.70-1.30); GLOMERULAR FILTRATION RATE > 60.0 (>42); GLUCOSE, FASTING 275 MG/DL (70-100); SODIUM LEVEL 134 MEQ/L (136-145); TOTAL PROTEIN 7.6 GM/DL (6.4-8.2)
== END ==
LOC: SKLAB5 05:42
PROVIDERS: ATTEND Internal Medicine
DX: M86.172 Other acute osteomyelitis, left ankle and foot (principal)

== ENCOUNTER → 2020-10-06 | Outpatient (REF) | LOC: SKLAB5 09:18 | PROVIDERS: ATTEND Internal Medicine | DX: Z20.828 Contact with and (suspected) exposure to other viral communicable diseases (principal) ==

== ENCOUNTER → 2020-10-13 | Outpatient (REF) | LOC: SKLAB5 06:08 | PROVIDERS: ATTEND Internal Medicine | DX: Z53.9 Procedure and treatment not carried out, unspecified reason (principal) ==

== ENCOUNTER → 2020-10-19 | Outpatient (REF) | payer MEDICARE, OTHER ==
[~2020-10-19] MED LIST changes: +CEFD1CAP8 PO; +GLUC1KIT IM; +OMEP-221 PO
[2020-10-19 12:47] LABS: HEMATOCRIT 37.2 % (42.0-52.0); HEMOGLOBIN 11.6 g/dl (13.5-17.5); MEAN CORPUSCULAR HEMOGLOBIN 25.4 pg (27.0-33.0); MEAN CORPUSCULAR HGB CONC 31.2 g/dl (32.0-36.5); MEAN CORPUSCULAR VOLUME 81.6 fl (80.0-96.0); PLATELET COUNT, AUTOMATED 419 10^3/uL (150-450); RED BLOOD COUNT 4.56 10^6/uL (4.30-6.10); WHITE BLOOD COUNT 7.6 10^3/uL (4.0-10.0)
[2020-10-19 13:45] LABS: ALBUMIN 3.4 GM/DL (3.2-5.2); BILIRUBIN,TOTAL 0.6 MG/DL (0.2-1.0); CHOLESTEROL RISK RATIO 2.791 (<5); CREATININE FOR GFR 1.3 MG/DL (0.70-1.30); FREE T4 1.32 NG/DL (0.76-1.46); GLOMERULAR FILTRATION RATE 58.1 (>42); THYROID STIMULATING HORMONE 3.41 uIU/ML (0.358-3.740); TOTAL PROTEIN 8.1 GM/DL (6.4-8.2)
== END ==
LOC: M SFHCADAM 09:21
PROVIDERS: ATTEND Family Medicine
DX: L97.423 Non-pressure chronic ulcer of left heel and midfoot with necrosis of muscle (principal); G62.9 Polyneuropathy, unspecified; I11.9 Hypertensive heart disease without heart failure; E11.621 Type 2 diabetes mellitus with foot ulcer; E11.21 Type 2 diabetes mellitus with diabetic nephropathy
CPT/HCPCS: 11042; 80053; 80061; 83036; 84439; 84443; 85027; G0463

== ENCOUNTER 2020-10-21 18:04 | Emergency (ER) | payer MEDICARE, OTHER ==
[~2020-10-21] VITALS: Ht 188 cm; Wt 69.5 kg
[~2020-10-21 18:04] MED LIST changes: -CEFD1CAP8 PO; -GLUC1KIT IM; -OMEP-221 PO
--- NOTE | 2020-10-21 18:27 | REPVR ---
PROCEDURE INFORMATION: Exam: CT Head Without Contrast Exam date and time: 10/21/2020 6:12 PM Age: 70 years old Clinical indication: Altered mental status/memory loss TECHNIQUE: Imaging protocol: Computed tomography of the head without contrast. Radiation optimization: All CT scans at this facility use at least one of these dose optimization techniques: automated exposure control; mA and/or kV adjustment per patient size (includes targeted exams where dose is matched to clinical indication); or iterative reconstruction. COMPARISON: CT Head without contrast 08/29/2020 9:56 AM FINDINGS: Brain: There is moderate parenchymal volume loss most pronounced in the temporal lobes. White matter changes are demonstrated in the subcortical, centrum semiovale and periventricular white matter consistent with age related small vessel white matter ischemic changes. Diffuse cerebellar atrophy. Cerebral ventricles: The degree of ventricular dilatation is normal for age and/or degree of atrophy present. Bones/joints: Status post ORIF left maxilla/orbital floor. Paranasal sinuses: Visualized sinuses are unremarkable. No fluid levels. Mastoid air cells: Visualized mastoid air cells are well aerated. Vasculature: Atherosclerotic calcifications are demonstrated in the intracranial carotid arteries bilaterally as well as in the vertebral basilar system. Soft tissues: Unremarkable. IMPRESSION: 1. There is moderate parenchymal volume loss most pronounced in the temporal lobes. White matter changes are demonstrated in the subcortical, centrum semiovale and periventricular white matter consistent with age related small vessel white matter ischemic changes. 2. The degree of ventricular dilatation is normal for age and/or degree of atrophy present. 3. Diffuse cerebellar atrophy. Electronically signed by: Juan M Knox On 10/21/2020 18:28:15 PM
[2020-10-21] MEDS ORDERED: NS 1,000 ML IV ONE (18:30)
--- NOTE | 2020-10-21 19:51 | REPVR ---
PROCEDURE INFORMATION: Exam: XR Chest, 1 View Exam date and time: 10/21/2020 6:08 PM Age: 70 years old Clinical indication: Other: AMS; Additional info: Altered mental status TECHNIQUE: Imaging protocol: XR of the chest Views: 1 view. COMPARISON: [facility] PORTABLE CHEST X-RAY 08/25/2020 3:49 PM FINDINGS: Lungs: Unremarkable. No consolidation. Pleural space: Unremarkable. No pleural effusion. No pneumothorax. Heart/Mediastinum: Unremarkable. No cardiomegaly. Bones/joints: Unremarkable. IMPRESSION: No acute findings. Electronically signed by: Juan M Knox On 10/21/2020 19:51:59 PM
[2020-10-21 20:28] LABS: BASO % 0.3 % (0.0-1.0); EOS # 0.2 10^3/uL (0.0-0.5); EOS % 3.4 % (0.0-3.0); HEMATOCRIT 34.3 % (42.0-52.0); HEMOGLOBIN 10.8 g/dl (13.5-17.5); LYMPH % 31.6 % (24.0-44.0); MEAN CORPUSCULAR HEMOGLOBIN 25.1 pg (27.0-33.0); MEAN CORPUSCULAR HGB CONC 31.5 g/dl (32.0-36.5); MEAN CORPUSCULAR VOLUME 79.8 fl (80.0-96.0); MONO # 0.4 10^3/uL (0.0-0.8); MONO % 6.8 % (0.0-5.0); NEUTROPHILS # 3.6 10^3/uL (1.5-8.5); NEUTROPHILS % 57.4 % (36.0-66.0); PLATELET COUNT, AUTOMATED 311 10^3/uL (150-450); WHITE BLOOD COUNT 6.2 10^3/uL (4.0-10.0)
[2020-10-21] MEDS ORDERED: HumuLIN R (REGULAR) INSULIN (NovoLIN R) **100U/ML** PER UNIT IV ONE ×2 (20:45→22:45)
[2020-10-21 20:54] LABS: OSMOLALITY SERUM 292 MOSM/KG (280-301)
[2020-10-21 21:22] LABS: ACETAMINOPHEN LEVEL < 2.0 UG/ML (10.0-30.0); ALBUMIN 2.9 GM/DL (3.2-5.2); ALT/SGPT 15 U/L (12-78); BILIRUBIN,DIRECT 0.1 MG/DL (0.0-0.2); BILIRUBIN,TOTAL 0.3 MG/DL (0.2-1.0); BLOOD UREA NITROGEN 26 MG/DL (7-18); CALCIUM LEVEL 8.4 MG/DL (8.8-10.2); CARBON DIOXIDE LEVEL 23 MEQ/L (21-32); CHLORIDE LEVEL 98 MEQ/L (98-107); CK-MB VALUE MASS 3.5 NG/ML (<3.6); CPK CREATINE PHOSPHOKINASE 66 U/L (39-308); CREATININE FOR GFR 1.08 MG/DL (0.70-1.30); ETHYL ALCOHOL (ETHANOL) < 0.003 % (0.000-0.010); GLOMERULAR FILTRATION RATE > 60.0 (>42); GLUCOSE, FASTING 386 MG/DL (70-100); POTASSIUM SERUM 3.6 MEQ/L (3.5-5.1); SODIUM LEVEL 130 MEQ/L (136-145); TROPONIN I < 0.02 NG/ML (< 0.10)
[2020-10-22 00:45] VITALS: BP 120/65
--- NOTE | 2020-10-22 08:04 | ECGEPIP ---
[facility] - ED Test Date: 2020-10-21 Pat Name: CHACHO LANDRUM Department: Room: - Gender: Male [employer] Molder: : 1950 Requested By: Erica Guillory Order Number: [id number] Reading MD: Erica Guillory Measurements Intervals [place] Rate: 83 P: 25 LA: 153 QRS: -20 QRSD: 96 T: 27 QT: 422 QTc: 497 Interpretive Statements SINUS RHYTHM PROLONGED QT INTERVAL SIMILAR 08/24/20 Electronically Signed on 10-22-2020 8:04:36 EST by Erica Guillory
[2020-10-23] MEDS ORDERED: OMEP-221 PO (03:06)
[2020-10-23] MEDS ORDERED: CEFD1CAP8 PO (03:06)
== END 2020-10-22 00:45 | disposition home or self-care (01) ==
LOC: M ED 18:04
DX: F10.27 Alcohol dependence with alcohol-induced persisting dementia (principal); E11.65 Type 2 diabetes mellitus with hyperglycemia; G31.9 Degenerative disease of nervous system, unspecified; I11.9 Hypertensive heart disease without heart failure; Z79.82 Long term (current) use of aspirin; Z79.899 Other long term (current) drug therapy
CPT/HCPCS: 36415; 70450; 71045; 80048; 80076; 81001; 82140; 82550; 82553; 83605; 83930; 84443; 84484; 85025; 93005; 93041; 94760; 96360; 96361; 99285; G0480

== ENCOUNTER 2020-10-22 23:01 | Emergency (ER) | payer MEDICARE, OTHER ==
[~2020-10-22] VITALS: Ht 188 cm; Wt 70.9 kg
[2020-10-22] MEDS ORDERED: NS 1,000 ML IV ONE (23:30)
[2020-10-23 00:44] LABS: VENOUS BASE EXCESS -3.3 (-2.0-2.0); VENOUS HCO3 22.9 MEQ/L (23.0-27.0); VENOUS O2 SATURATION 82.4 % (60.0-80.0); VENOUS PARTIAL PRESSURE CO2 45.4 mmHg (38.0-50.0); VENOUS PARTIAL PRESSURE O2 50.4 mmHg (30.0-50.0); VENOUS STANDARD HCO3 21.5 MEQ/L; VENOUS TOTAL CO2 24.3 MEQ/L (24.0-28.0)
[2020-10-23 00:45] LABS: HEMATOCRIT 36.8 % (42.0-52.0); HEMOGLOBIN 11.4 g/dl (13.5-17.5); MEAN CORPUSCULAR HEMOGLOBIN 25.4 pg (27.0-33.0); MEAN CORPUSCULAR VOLUME 82.1 fl (80.0-96.0); PLATELET COUNT, AUTOMATED 296 10^3/uL (150-450); RED BLOOD COUNT 4.48 10^6/uL (4.30-6.10); WHITE BLOOD COUNT 6.2 10^3/uL (4.0-10.0)
[2020-10-23 01:35] LABS: ALT/SGPT 18 U/L (12-78); BLOOD UREA NITROGEN 25 MG/DL (7-18); CALCIUM LEVEL 8.4 MG/DL (8.8-10.2); CARBON DIOXIDE LEVEL 25 MEQ/L (21-32); CHLORIDE LEVEL 101 MEQ/L (98-107); CK-MB VALUE MASS 3.3 NG/ML (<3.6); CPK CREATINE PHOSPHOKINASE 78 U/L (39-308); CREATININE FOR GFR 1.03 MG/DL (0.70-1.30); GLOMERULAR FILTRATION RATE > 60.0 (>42); GLUCOSE, FASTING 239 MG/DL (70-100); MB/CK RELATIVE INDEX 4.23 (< OR =4); POTASSIUM SERUM 4.2 MEQ/L (3.5-5.1); SODIUM LEVEL 134 MEQ/L (136-145)
[2020-10-23 01:36] LABS: ALBUMIN 2.8 GM/DL (3.2-5.2); BILIRUBIN,DIRECT 0.1 MG/DL (0.0-0.2); BILIRUBIN,TOTAL 0.2 MG/DL (0.2-1.0); ETHYL ALCOHOL (ETHANOL) 0.003 % (0.000-0.010); TOTAL PROTEIN 6.9 GM/DL (6.4-8.2); TROPONIN I < 0.02 NG/ML (< 0.10)
[2020-10-23 02:39] LABS: RSV AMPLIFICATION NEGATIVE (NEGATIVE)
[2020-10-23] MEDS ORDERED: OMEP-221 PO (03:06)
[2020-10-23] MEDS ORDERED: CEFD1CAP8 PO (03:06)
[2020-10-23 03:45] VITALS: BP 126/72
--- NOTE | 2020-10-23 04:03 | ED PDOC ---
Post-Departure Follow-Up DR SWEENEY EVALUATED PATIENT AND DETERMINED PATIENT IS CAPABLE OF REFUSING CARE. HE SPOKE WITH THE PATIENT'S WHO IS OK WITH HIM COMING HOME. PATIENT WILL SIGN AGAINST MEDICAL ADVICE. NAI BEVERLY, DO Oct 23, 2020 04:02
== END 2020-10-23 04:05 | disposition left against medical advice (07) ==
LOC: M ED 23:01
DX: R41.82 Altered mental status, unspecified (principal); F10.27 Alcohol dependence with alcohol-induced persisting dementia; Z53.9 Procedure and treatment not carried out, unspecified reason

== ENCOUNTER 2020-10-27 08:22 | Emergency (ER) | payer MEDICARE, OTHER ==
[~2020-10-27] VITALS: Ht 188 cm; Wt 70.5 kg
[~2020-10-27 08:22] MED LIST changes: +CEFD1CAP8 PO; +OMEP-221 PO
[2020-10-27 09:18] LABS: HEMATOCRIT 32.5 % (42.0-52.0); HEMOGLOBIN 9.9 g/dl (13.5-17.5); MEAN CORPUSCULAR HEMOGLOBIN 25.1 pg (27.0-33.0); MEAN CORPUSCULAR HGB CONC 30.5 g/dl (32.0-36.5); MEAN CORPUSCULAR VOLUME 82.5 fl (80.0-96.0); PLATELET COUNT, AUTOMATED 282 10^3/uL (150-450); RED BLOOD COUNT 3.94 10^6/uL (4.30-6.10); WHITE BLOOD COUNT 7.1 10^3/uL (4.0-10.0)
[2020-10-27 10:02] LABS: ALBUMIN 3.1 GM/DL (3.2-5.2); ALT/SGPT 25 U/L (12-78); BILIRUBIN,DIRECT < 0.1 MG/DL (0.0-0.2); BILIRUBIN,TOTAL 0.3 MG/DL (0.2-1.0); BLOOD UREA NITROGEN 26 MG/DL (7-18); CALCIUM LEVEL 8.9 MG/DL (8.8-10.2); CARBON DIOXIDE LEVEL 32 MEQ/L (21-32); CHLORIDE LEVEL 97 MEQ/L (98-107); CREATININE FOR GFR 1.16 MG/DL (0.70-1.30); GLOMERULAR FILTRATION RATE > 60.0 (>42); LIPASE 33 U/L (73-393); POTASSIUM SERUM 5.6 MEQ/L (3.5-5.1); SODIUM LEVEL 131 MEQ/L (136-145); TOTAL PROTEIN 6.8 GM/DL (6.4-8.2)
[2020-10-27 10:04] LABS: ETHYL ALCOHOL (ETHANOL) < 0.003 % (0.000-0.010); GLUCOSE, FASTING 565 MG/DL (70-100)
[2020-10-27] MEDS ORDERED: HumuLIN R (REGULAR) INSULIN (NovoLIN R) **100U/ML** PER UNIT IV ONE (10:15)
[2020-10-27] MEDS ORDERED: NS 1,000 ML IV ONE (10:45)
[2020-10-27] MEDS ORDERED: HumuLIN R (REGULAR) INSULIN (NovoLIN R) **100U/ML** PER UNIT SC ONE (12:45)
[2020-10-27 13:30] VITALS: BP 150/88
== END 2020-10-27 17:16 | disposition home or self-care (01) ==
LOC: M ED 08:22 → EDBD 08:22 → M ED 17:16
DX: E11.65 Type 2 diabetes mellitus with hyperglycemia (principal); I12.9 Hypertensive chronic kidney disease with stage 1 through stage 4 chronic kidney disease, or unspecified chronic kidney disease; N18.9 Chronic kidney disease, unspecified; J44.9 Chronic obstructive pulmonary disease, unspecified; K21.9 Gastro-esophageal reflux disease without esophagitis; F33.9 Major depressive disorder, recurrent, unspecified; F41.9 Anxiety disorder, unspecified; E78.5 Hyperlipidemia, unspecified; I25.10 Atherosclerotic heart disease of native coronary artery without angina pectoris; Z79.899 Other long term (current) drug therapy; Z79.82 Long term (current) use of aspirin; Z79.4 Long term (current) use of insulin; Z87.891 Personal history of nicotine dependence
CPT/HCPCS: 80048; 80076; 83690; 85027; 96361; 96374; 99285; G0480

== ENCOUNTER 2020-11-08 19:07 | Inpatient (IN) | payer MEDICARE, OTHER ==
[~2020-11-08 19:07] MED LIST changes: -LISI-538 PO; +LISI10TA22 PO; -LISI10TA4 PO; +LISI20TA33 PO
--- OUTSIDE RECORDS SUMMARY | 2020-11-08 19:27 | CCD ---
Author Author [facility] Organization [facility] Address Unknown Phone Unavailable Care Team Providers Care Mis Director Name Role Phone Jocelyne Angulo Unavailable PROBLEMS Type Condition ICD9-CM Code [id number] Code Onset Dates Condition S tatus SNOMED Code Notes Problem Hypertensive heart disease without heart failure I 11.9 Active 51297945 Problem Vitamin D deficiency, unspecified E55.9 Active 76709762 Problem Diastolic CHF with preserved left ventricular fu nction, NYHA class 2 I50.30 Active 378998232 Problem Type 2 diabetes mellitus with diabetic nephropathy E11.21 Active 680596530 Problem Major depressive disorder, single episode, unspecified F32.9 Active 71154975 Problem Closed right hip fracture S72.001A Active 31791 7006 Problem Allergic rhinitis J30.9 Active 92681358 Problem Erectile dysfunction N52.9 Active 533206651 Problem Unspecified atrial fibrillation I48.91 Active 55249056 Problem Hypomagnesemia E83.42 Active 487475090 Problem Iron deficiency anemia due to chronic blood loss D 50.0 Active 425330095 Problem Gastroesophageal reflux disease without esophagitis K21.9 Active 792669520 Problem Type 2 diabetes mellitus with foot ulcer E11.621 Active 820174623 Problem Paroxysmal atrial fibrillation I48.0 Active 2 76382856 Problem Gout, unspecified M10.9 Active 66533194 Problem Frequent falls R29.6 Active 975603669 Problem Left-sided tinnitus H93.12 Active 57404835 Problem Chronic kidney disease, stage 2 (mild) N18.2 A ctive 485382693 Problem Chronic obstructive pulmonary disease, unspecified J44.9 Active 53975507 Problem Neuropathy G62.9 Active 558297983 Problem Medicare annual wellness visit, subsequent Z00.00 Active 359614948 Problem Balanitis N48.1 Active 26225532 Problem 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 Active 726091771 ALLERGIES Allergen (clinical drug ingredient) Drug/Non Drug Allergy do cumented on EMR Reaction Allergy Type Onset Date Status Environmental Unknown Non Drug Allergy Activ e ENCOUNTERS from 1950 to 2020-10-28 Encounter Location Date Provider Diagnosis [facility] [address] [place] [address] Oct Jocelyne Angulo IMMUNIZATIONS Vaccine Route Administration Date Status Influenza (18 yrs & older) Flublok Unknown Aug 04, 2020 Others Influenza (High Dose 65 & up) Unknown Nov 16, 2017 Ad ministered Influenza (High Dose 65 & up) IM Intramuscular Aug 10, 2016 A dministered Influenza (High Dose 65 & up) IM Intramuscular Oct 12, 2015 A dministered Pneumococcal Adult 0.5mL (Pneumovax 23) IM Intramuscular Nov 16, 2016 Administered Pneumococcal 0.5mL (Prevnar 13) IM Intramuscular April 15, 2015 Administered SOCIAL HISTORY Tobacco Use: Social History Observation Description Date Details (start date - stop date) Former Smoker Sex Assigned At : Social History Observation Description Sex Assigned At Unknown Audit Question Answer Notes Total Score: 2 Interpretation: Alcohol Education Domestic Violence: Question Answer Notes Status: Sexual Hx: Question Answer Notes Had sex in the last 12 months (vaginal, oral, or anal)? Yes Have you ever had an STD? No with Women only Use protection? No Drug and Alcohol Question Answer Notes Total Score: 0 Interpretation: No problems reported Alcohol Screening: Question Answer Notes Did you have a drink containing alcohol in the past year? Ye s Points 3 Interpretation Negative How often did you have six or more drinks on one occas ion in the past year? Never (0 points) How many drinks did you have on a typica l day when you were drinking in the past year? 1 or 2 (0 points) How often did you have a drink containing alcohol in t he past year? Two to three times per week (3 points) Tobacco Use: Question Answer Notes Are you a: former smoker How long has it been since you last smoked? > 10 years REASON FOR REFERRAL No Information VITAL SIGNS No information MEDICATIONS Medication SIG (Take, Route, Frequency, Duration) Notes Start Da te End Date Status Vitamin D 1000 UNIT 1 tablet Orally Once a day Active Metoprolol Succinate 50 mg 1 tablet Orally twice a day Active Tresiba FlexTouch 100 UNIT/ML 14 units Subcutaneous Daily Active Pravastatin Sodium 20 MG 1 tablet Orally Once a day Active Lisinopril 20 MG 1 tab Orally Daily Active FLUoxetine HCl 20 MG 1 capsule in the morning Orally Once a day Active Allopurinol 100 MG 1/2 tablet Orally every other day Active Omeprazole 40 MG 1 capsule 30 minutes before morning meal Orally Once a day for 30 day(s) Active Milk of Magnesia 2400 MG/10ML 10 ml Orally daily as needed for cons tipation Active Dulcolax 10 MG 1 suppository as needed Rectal Once a day for 30 day(s ) Active Symbicort 80-4.5 MCG/ACT 2 puffs Inhalation Twice a day for 30 d ays Mar, Active Wheelchair - g62.9; e11.62 _ Daily for 90 day(s) Sep, 020 Active Tylenol 325 MG 1 tablet as needed Orally every 4 hrs for pain/fever Active Humalog 100 UNIT/ML slidind scale Subcutaneous t hree times per day before meals and once before bed Active Aspirin 81 MG 1 tablet Orally Once a day Active Nasonex 50 MCG/ACT 2 sprays in each nostril Nasally Once a day as nee ded Active Magnesium Oxide 400 MG 1 tablet Orally three times daily Active Vitamin B 12 500 MCG 2 tablets Orally Once a day Active Disposable Enema 19-7 gram/118mL 1 unit per rectum as needed daily for contipation Active BuPROPion HCl ER (XL) 300 MG 1 tablet in the morning Orally Once a da y Active Folic Acid 400 MCG 1 tablet Orally Once a day for 30 day(s) Active Pradaxa 150 MG 1 capsule Orally Twice a day Active PROCEDURES No Information RESULTS No Results REASON FOR VISIT [employer] MEDICAL (GENERAL) HISTORY Type Description Date Medical History Pancreatitis Medical History Cardiomyopathy (resolved by 2017) Echo 2010 - LVH, normal LV systolic function, impaired diastolic relaxation, mild aortic insuff, and mild mitral insiff.; Echo 11/2017 - Mild Hypertrophy Septum, EF 55%, AV sclerosis with mild AR. No , Impaired diastolic relaxation Medical History CAD Medical History HTN Medical History GERD Medical History Depression - managed by Dr. Monteiro Medical History Anxiety Medical History Hx of Alcohol dep/abuse Medical History DM Type II Insulin requiring (Dr. Caldwell) with neuropathy and nephropathy (Brittle - on continuous glucose monitoring with tendency to have hypoglycemia); per endo, "acxts like Type 1" due to lack of pancreatic fxn/no insulin secretion Medical History Kidney Disease CKD II, Diabe tic Nephropathy - followed by Nephrology ( Dr. 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 Medical History chronic neck and back pain - Lumbar/Cervical DDD - Per Dr. Trujillo and Dr. Perez (pain management) Medical History Left knee arthritis - follow ed by Dr. Caldwell - s/p synthetic joint fluid Medical History Diabetic foot ulcers - s/p 2 nd toe partial amputation by Dr. Sherman Surgical History Tonsillectomy 1953 Surgical History Adenoidectomy 1953 Surgical History Hemorrhoidectomy 1198 Surgical History Hernia Repair 1984 Surgical History Left knee arthroscopy 1995 Surgical History Cardiac Catheterization 1995 Surgical History Tracheotomy 1998 Surgical History Colonoscopy - Adenomatous colon polyp ([facility]) 05/2014 Surgical History right hip repair s/p fracture 10/30/15 Surgical History colonoscopy - Diverticula an d Hemorrhoids - no biopsies taken ([facility]) 08/2016 Surgical History EGD 01/06/2019 Surgical History amputation, toe Hospitalization History Surgicaly related Hospitalization History fracture-right hip 10/30/15 Hospitalization History sepsis 01/2020 Hospitalization History fall 08/2020 Goals Section No Information Health Concerns No Information MEDICAL EQUIPMENT No Information MENTAL STATUS No Information FUNCTIONAL STATUS No Information ASSESSMENTS No Information PLAN OF TREATMENT Next Appt Details Provider Name:Misha Woodard, 08:00:00 AM, [address] [place], [address], Provider Name:Mohan Torrez, 2020-10 08:30:00 AM, [address] [place] [address], [phone], Insurance Providers Payer Name Payer Address Payer Phone Insured Name Patient Relati onship to Insured Coverage Start Date Coverage End Date [facility] [address] [address] [facility] [phone] [place] self MEDICARE Part A and B [address] [facility] [phone] [phone] [place] self
--- OUTSIDE RECORDS SUMMARY | 2020-11-08 19:27 | CCD ---
Author Author [facility] Organization [facility] Address Unknown Phone Unavailable Care Team Providers Care Plating Tank Operator Name Role Phone Jocelyne Angulo Unavailable PROBLEMS Type Condition ICD9-CM Code [id number] Code Onset Dates Condition S tatus SNOMED Code Notes Problem Hypertensive heart disease without heart failure I 11.9 Active 00105877 Problem Vitamin D deficiency, unspecified E55.9 Active 22996073 Problem Diastolic CHF with preserved left ventricular fu nction, NYHA class 2 I50.30 Active 392255150 Problem Type 2 diabetes mellitus with diabetic nephropathy E11.21 Active 101699796 Problem Major depressive disorder, single episode, unspecified F32.9 Active 20909333 Problem Closed right hip fracture S72.001A Active 34902 7006 Problem Allergic rhinitis J30.9 Active 30559936 Problem Erectile dysfunction N52.9 Active 620684093 Problem Unspecified atrial fibrillation I48.91 Active 33658986 Problem Hypomagnesemia E83.42 Active 290530107 Problem Iron deficiency anemia due to chronic blood loss D 50.0 Active 736000365 Problem Gastroesophageal reflux disease without esophagitis K21.9 Active 116384594 Problem Type 2 diabetes mellitus with foot ulcer E11.621 Active 863944552 Problem Paroxysmal atrial fibrillation I48.0 Active 2 67479985 Problem Gout, unspecified M10.9 Active 90749910 Problem Frequent falls R29.6 Active 432334221 Problem Left-sided tinnitus H93.12 Active 58745999 Problem Chronic kidney disease, stage 2 (mild) N18.2 A ctive 609175502 Problem Chronic obstructive pulmonary disease, unspecified J44.9 Active 38915614 Problem Neuropathy G62.9 Active 573472679 Problem Medicare annual wellness visit, subsequent Z00.00 Active 731047537 Problem Balanitis N48.1 Active 78989329 Problem 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 Active 634752358 ALLERGIES Allergen (clinical drug ingredient) Drug/Non Drug Allergy do cumented on EMR Reaction Allergy Type Onset Date Status Environmental Unknown Non Drug Allergy Activ e ENCOUNTERS from 1950 to 2020-10-27 Encounter Location Date Provider Diagnosis [facility] [address] [place] [address] Oct Jocelyne Angulo Type 2 diabetes mellitus with foot ulcer E11.621 ; Non-pressure chronic ulcer of left heel and midfoot with necrosis of muscle L97.423 and Charcot foot due to diabetes mellitus E11.610 IMMUNIZATIONS Vaccine Route Administration Date Status Influenza [...] REASON FOR REFERRAL No Information VITAL SIGNS Weight 158 lbs Oct, Weight-kg PER PT kg Oct, Height 76" in Oct, BMI 19.23 kg/m2 Oct, Heart Rate 64 /min Oct, Respiratory Rate 18 /min Oct, Temperature 95 degrees Fahrenheit Oct, Oximetry 99 Oct, Blood pressure systolic 130 mm Hg Oct, Blood pressure diastolic 76 mm Hg Oct, MEDICATIONS Medication SIG (Take, Route, Frequency, Duration) [...] e11.62 _ Daily for 90 day(s) Sep, Active Tylenol 325 MG 1 tablet as [...] capsule Orally Twice a day Active PROCEDURES from 1950 to 2020-10-27 Procedure Date Ordered Result Body Site LIDOCAINE 4% CREAM TOPICAL 2020-10-25 N/A RESULTS No Results REASON FOR VISIT Left heel MEDICAL (GENERAL) HISTORY Type Description Date Medical [...] Atrial Fibrillation - on Pradaxa - Per Lenore JEFFERSON Medical History Squamous cell ca skin - 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 (ICD-10 - L97.423) Oct, Charcot foot due to diabetes mellitus (ICD-10 - E11.610) PLAN OF TREATMENT Next Appt Details 1 Week Reason: Provider Name:Misha Woodard, 08:00:00 AM, [address] [place], [address], Provider Name:Mohan Shan, 2020-10 08:30:00 AM, [address] [place] [address], [phone], Insurance Providers Payer Name Payer Address Payer Phone Insured Name Patient Relati onship to Insured Coverage Start Date Coverage End Date [facility] [address] [address] [facility] [phone] [place] self MEDICARE Part A and B [address] [place] [phone] [place] R[place] self
--- OUTSIDE RECORDS SUMMARY | 2020-11-08 19:27 | CCD ---
Author Author [facility] Organization [facility] Address Unknown Phone Unavailable Care Team Providers Care Area Intelligence Technician Name Role Phone Mohan Torrez Unavailable PROBLEMS Type Condition ICD9-CM Code [id number] Code Onset Dates Condition S tatus SNOMED Code Notes Problem Hypertensive heart disease without heart failure I 11.9 Active 02673657 Problem Vitamin D deficiency, unspecified E55.9 Active 55874411 Problem Diastolic CHF with preserved left ventricular fu nction, NYHA class 2 I50.30 Active 504802926 Problem Type 2 diabetes mellitus with diabetic nephropathy E11.21 Active 236552249 Problem Major depressive disorder, single episode, unspecified F32.9 Active 15263316 Problem Closed right hip fracture S72.001A Active 83400 7006 Problem Allergic rhinitis J30.9 Active 68822232 Problem Erectile dysfunction N52.9 Active 880322850 Problem Unspecified atrial fibrillation I48.91 Active 22338160 Problem Hypomagnesemia E83.42 Active 840351797 Problem Iron deficiency anemia due to chronic blood loss D 50.0 Active 778655886 Problem Gastroesophageal reflux disease without esophagitis K21.9 Active 370858932 Problem Type 2 diabetes mellitus with foot ulcer E11.621 Active 549646019 Problem Paroxysmal atrial fibrillation I48.0 Active 2 83398856 Problem Gout, unspecified M10.9 Active 85254196 Problem Frequent falls R29.6 Active 649534830 Problem Left-sided tinnitus H93.12 Active 18295961 Problem Chronic kidney disease, stage 2 (mild) N18.2 A ctive 186594341 Problem Chronic obstructive pulmonary disease, unspecified J44.9 Active 90608984 Problem Neuropathy G62.9 Active 028417507 Problem Medicare annual wellness visit, subsequent Z00.00 Active 462733549 Problem Balanitis N48.1 Active 47040330 Problem 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 Active 732278688 ALLERGIES Allergen (clinical drug ingredient) Drug/Non Drug Allergy do cumented on EMR Reaction Allergy Type Onset Date Status Environmental Unknown Non Drug Allergy Activ e ENCOUNTERS from 1950 to 2020-11-02 Encounter Location Date Provider Diagnosis [facility] [address] [place] [address] Sep, Loc Torrez Type 2 diabetes mellitus with foot ulcer E11.621 ; Unspecified atrial fibrillation I48.91 ; Type 2 diabetes mellitus with diabetic nephropathy E11.21 ; Non-pressure chronic ulcer of left heel and midfoot with necrosis of muscle L97.423 ; Neuropathy G62.9 ; Hypertensive heart disease without heart failure I11.9 and Frequent falls R29.6 IMMUNIZATIONS Vaccine Route Administration Date Status Influenza [...] No Information VITAL SIGNS Weight 158 lbs Sep, Height 76" in Sep, BMI 19.23 kg/m2 Sep, Heart Rate 121 /min Sep, Respiratory Rate 18 /min Sep, Temperature 97.3 degrees Fahrenheit Sep, Oximetry 99 Sep, Blood pressure systolic 120 mm Hg Sep, Blood pressure diastolic 68 mm Hg Sep, MEDICATIONS Medication SIG (Take, Route, Frequency, Duration) [...] a day Active PROCEDURES No Information RESULTS REASON FOR VISIT Ricardo HURTADO MEDICAL (GENERAL) HISTORY Type Description Date Medical [...] cell ca skin - followed by Derm organizational development consultant. 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 (ICD-10 - L97.423) Sep, Neuropathy (ICD-10 - G62.9) Sep, Hypertensive heart disease without heart failure (ICD-10 - I11.9) Sep, Frequent falls (ICD-10 - R29.6) PLAN OF TREATMENT Next Appt Details 4 Weeks JW or RW, 30 min Reason: Provider Name:Misha Woodard, 08:00:00 AM, [address] [place], [address], Provider Name:Mohan Torrez, 2020-10 01:15:00 PM, [address] [place] [address], [phone], Provider Name:Misha Woodard, 03:00:00 PM, [address] [place], [address], Provider Name:Mohan Torrez, 2020-10 08:30:00 AM, [address] [place] [address], [phone], Insurance Providers Payer Name Payer Address Payer Phone Insured Name Patient Relati onship to Insured Coverage Start Date Coverage End Date [facility] [address] [address] [facility] [phone] [place] self MEDICARE Part A and B [address] [facility] [id number] [place] self
--- OUTSIDE RECORDS SUMMARY | 2020-11-08 19:27 | CCD ---
Author Author [facility] Organization [facility] Address Unknown Phone Unavailable Care Team Providers Care Assistant Community Manager Name Role Phone Josefina Torrez Unavailable PROBLEMS Type Condition ICD9-CM Code [id number] Code Onset Dates Condition S tatus SNOMED Code Notes Problem Hypertensive heart disease without heart failure I 11.9 Active 70340755 Problem Vitamin D deficiency, unspecified E55.9 Active 94346202 Problem Diastolic CHF with preserved left ventricular fu nction, NYHA class 2 I50.30 Active 085797270 Problem Type 2 diabetes mellitus with diabetic nephropathy E11.21 Active 867149961 Problem Major depressive disorder, single episode, unspecified F32.9 Active 80537283 Problem Closed right hip fracture S72.001A Active 52499 7006 Problem Allergic rhinitis J30.9 Active 25061533 Problem Erectile dysfunction N52.9 Active 414087509 Problem Unspecified atrial fibrillation I48.91 Active 88799747 Problem Hypomagnesemia E83.42 Active 936206139 Problem Iron deficiency anemia due to chronic blood loss D 50.0 Active 105086130 Problem Gastroesophageal reflux disease without esophagitis K21.9 Active 868037025 Problem Type 2 diabetes mellitus with foot ulcer E11.621 Active 487870154 Problem Paroxysmal atrial fibrillation I48.0 Active 2 36029613 Problem Gout, unspecified M10.9 Active 36351973 Problem Frequent falls R29.6 Active 024068933 Problem Left-sided tinnitus H93.12 Active 61079787 Problem Chronic kidney disease, stage 2 (mild) N18.2 A ctive 723811488 Problem Chronic obstructive pulmonary disease, unspecified J44.9 Active 02894277 Problem Neuropathy G62.9 Active 735503845 Problem Medicare annual wellness visit, subsequent Z00.00 Active 091900308 Problem Balanitis N48.1 Active 03345934 Problem 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 Active 677296017 ALLERGIES Allergen (clinical drug ingredient) Drug/Non Drug Allergy do cumented on EMR Reaction Allergy Type Onset Date Status Environmental Unknown Non Drug Allergy Activ e ENCOUNTERS from 1950 to 2020-11-01 Encounter Location Date Provider Diagnosis [address] [place] [address] 07 Oct, 2020 Josefina Torrez IMMUNIZATIONS Vaccine Route Administration Date Status Influenza [...] Information RESULTS No Results REASON FOR VISIT ER Visit [facility] 10/27; Elevated Blood Sugar MEDICAL (GENERAL) HISTORY Type Description Date Medical [...] cell ca skin - 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 Medical History chronic neck and back [...] Surgical History Colonoscopy - Adenomatous colon polyp ([facility]) 05/2014 Surgical History right hip repair [...] Appt Details Provider Name:Misha Woodard, 08:00:00 AM, [place], [address], Provider Name:Mohan Torrez, 2020-10 01:15:00 PM, [address] [place] [address], [phone], Provider Name:Misha Woodard, 03:00:00 PM, [address] [place], [address], Provider Name:Mohan Torrez, 2020-10 08:30:00 AM, [address], [place], [address], Insurance Providers Payer Name Payer Address Payer Phone Insured Name Patient Relati onship to Insured Coverage Start Date Coverage End Date [facility] [address] [address] [facility] [phone] [place] self MEDICARE Part A and B [address] [facility] [id number] [phone] [place] RING self
--- OUTSIDE RECORDS SUMMARY | 2020-11-08 19:27 | CCD ---
Author Author [facility] Organization [facility] Address Unknown Phone Unavailable Care Team Providers Care Vending Manager Name Role Phone Jocelyne Angulo Unavailable PROBLEMS Type Condition ICD9-CM Code OPD05-QU Code Onset Dates Condition S tatus SNOMED Code Notes Problem Hypertensive heart disease without heart failure I 11.9 Active 75413436 Problem Vitamin D deficiency, unspecified E55.9 Active 65766525 Problem Diastolic CHF with preserved left ventricular fu nction, NYHA class 2 I50.30 Active 373572065 Problem Type 2 diabetes mellitus with diabetic nephropathy E11.21 Active 129207194 Problem Major depressive disorder, single episode, unspecified F32.9 Active 31138669 Problem Closed right hip fracture S72.001A Active 48830 7006 Problem Allergic rhinitis J30.9 Active 79400153 Problem Erectile dysfunction N52.9 Active 228782591 Problem Unspecified atrial fibrillation I48.91 Active 46370988 Problem Hypomagnesemia E83.42 Active 000550175 Problem Iron deficiency anemia due to chronic blood loss D 50.0 Active 988637932 Problem Gastroesophageal reflux disease without esophagitis K21.9 Active 039466697 Problem Type 2 diabetes mellitus with foot ulcer E11.621 Active 041014195 Problem Paroxysmal atrial fibrillation I48.0 Active 2 83015444 Problem Gout, unspecified M10.9 Active 33677205 Problem Frequent falls R29.6 Active 519680680 Problem Left-sided tinnitus H93.12 Active 11013842 Problem Chronic kidney disease, stage 2 (mild) N18.2 A ctive 546845015 Problem Chronic obstructive pulmonary disease, unspecified J44.9 Active 54423867 Problem Neuropathy G62.9 Active 072773635 Problem Medicare annual wellness visit, subsequent Z00.00 Active 587897189 Problem Balanitis N48.1 Active 93177495 Problem 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 Medical History chronic neck and back pain [...] Surgical History Colonoscopy - Adenomatous colon polyp ([facility]) 05/2014 Surgical History right hip repair s/p [...] Details Provider Name:Misha Woodard, 08:00:00 AM, [address] [place], [address], Provider Name:Mohan Torrez, 2020-10 08:30:00 AM, [address] [place] [address], [id number], Insurance Providers Payer Name Payer Address Payer Phone Insured Name Patient Relati onship to Insured Coverage Start Date Coverage End Date [facility] [address] [id number] [facility] [id number] [place] self MEDICARE Part A and B [address] [facility] [id number] [employer] [place] self
--- OUTSIDE RECORDS SUMMARY | 2020-11-08 19:27 | CCD | Continuity of Care Document ---
Author Author Eran SOSA MD Organization Unknown Address [address] [place] [address], [address] [place] [address] Phone [phone] Care Team Providers Care Line Welder Name Role Phone Manny Mendez MD AUTM [phone] Josefina Torrez AUTM [phone] Problems Active Problems Provider Date Type 1 diabetes mellitus uncontrolled Deborah Sosa MD On set: 09/05/2011 Disorder of nervous system due to diabetes mellitus Deborah Sosa MD Onset: 09/05/2011 Alcohol abuse Deborah Sosa MD Onset: 02/12/2012 Disorder of kidney due to diabetes mellitus Deborah Sosa MD Onset: 05/20/2012 Congestive heart failure Deborah Sosa MD Onset: 05/20/20 12 Insulin Deborah Sosa MD Onset: 09/05/2012 Hypoglycemia Deborah Sosa MD Onset: 09/05/2012 Disorder due to type 1 diabetes mellitus Deborah Sosa MD Onset: 02/04/2015 Examination Other Specified Deborah Sosa MD Onset: 10/27 Pure hypercholesterolemia Deborah Sosa MD Onset: 015 Streptococcus Pneumonia & Influenz Vaccination & Inocu lation Deborah Sosa MD Onset: 07/31/2013 H/O: steroid therapy Deborah Sosa MD Onset: 06/14/2015 Noncompliance with treatment Deborah Sosa MD Onset: 04/2015 Long-term current use of insulin Deborah Sosa MD Onset: 12/30/2015 Age-related osteoporosis without current pathological fracture Deborah Sosa MD Onset: 12/30/2015 Paroxysmal atrial fibrillation Dixie Faria RPAC Onset: 05/15/2016 H/O: alcoholism Dixie Faria RPAC Onset: 12/14/2011 Mitral valve disorder Dixie Faria RPAC Onset: 2 Aortic valve disorder Dixie Faria RPAC Onset: 2 Electrocardiogram abnormal Dixie Faria RPAC Onset: 11/23 Chronic diastolic heart failure Dixie Faria RPAC Onset: 12/14/2011 Benign hypertensive heart disease with congestive card iac failure Dixie Faria RPAC Onset: 12/14/2011 Primary cardiomyopathy Dixie Faria RPAC Onset: 12/14/19 12 Social History Type Date Description Comments Sex Unknown Cigarette Use denies cigarette use ETOH Use Breakfast ETOH Use Consumes 1 beer per day Tobacco Use Start: Unknown End: Unknown Patient is a former smoker Smoking Status Reviewed: 11/01/20 Patient is a former smoker Allergies, Adverse Reactions, Alerts Active Allergies Reaction Severity Comments Date Humalog diaphoresis and dizziness Seasonal Allergies 9 Medications Active Medications SIG Qnty Indications Ordering Provide r Date Baqsimi Two Pack 3mg/Dose Powder use as directed for low blood sugar, eat after 1units Deborah Sosa MD 07/29/2019 Euflexxa 20mg/2ML Soln Prefill Syr chalo inject as directed Unknown 05/20/2018 Bupropion HCL ER (XL) 300mg Tablets ER 24HR 1 by mouth daily. Unknown 05/20/2018 Pen [place] 32G X 4 mm Misc use once a day with tresiba e11.65 100units E10.65 Deborah Sosa MD 12/22/19 17 Tresiba Flextouch 10 0Unit/ML Solution Pen-Inject use as directed 32 units once daily 30ml E10.65 Luis Alberto Sosa MD 12/21/2016 Insulin Syringe/0.3ML/31G X 5/16" 31G X 5/16" 0.3 ML Misc use as directeds 4 x per day 400units E10.65 Deborah Sosa MD 11/13/2016 Cetirizine HCL 10mg Tablets 1 by mouth every day Unknown 05/14/2016 Humalog 100Unit/ML Solution use as directed per sliding sclae maximum daily dose = 30 units ; open new bottle each month 30ml E10.649 Deborah Sosa MD 10/10/2013 Onetouch Ultra Blue Strips test four times a day as needed 400units Deborah Sosa MD 2011 Proventil HFA 108(90Base) mcg/Act Aerosol 2 puffs prn Arianna Yanes PA 04/17/2011 Allopurinol 100mg Tablets 1/2 every other day Deborah Sosa MD 09/05/2010 Pravachol 20mg Tablets 1 by mouth daily 90tabs Froilan Hughes MD 04/14/2008 Pen [place] B-D Ultrafine Short Use as Directed 100units Deborah Sosa MD 03/13/2007 Ranitidine HCL 150mg Capsules 1 by mouth twice a day Unknown Esomeprazole Magnesium 40mg Capsul es DR 1 po bid Unknown Vitamin D3 Super Strength 2000Unit Capsules 1,000iu 1 p.o. qd Unknown Lisinopril 20mg Tablets 1 by mouth every day Unknown Magnesium Capsules po bid Unknown Vitamin B Complex Tablets 1 by mouth every day Unknown Viagra 100mg Tablets 1 tab. by mouth as needed Unknown Symbicort 80-4.5mcg/Act Aerosol 2 puffs a day Unknown Milk Thistle 250mg Capsules 1 po qd Unknown Aspirin 81mg Tablets 1 by mouth every day Unknown Metoprolol Succinate ER 50mg Tablets ER 24HR 1 po qd Unknown Multivitamins Capsules 1 by mouth every day Unknown Folic Acid 5mg Capsules 1 po qd Unknown Fluoxetine HCL 20mg Capsules 1 po qd 30caps Unknown Prevacid 30mg Capsules DR 1 p .o. bid Unknown Immunizations Description No Information Available Vital Signs Date Vital Result Comment 11/01/2020 10:46am BP Systolic 136 mmHg BP Diastolic 84 mmHg Body Temperature 97.3 F Height 74 inches 6'2" Weight 158.56 lb stated--in hector day BMI (Body Mass Index) 20.4 kg/m2 08/20/2020 1:36pm BP Systolic 134 mmHg BP Diastolic 80 mmHg Body Temperature 97.6 F Height 74 inches 6'2" Weight 168.50 lb BMI (Body Mass Index) 21.6 kg/m2 Results Test Acquired Date Facility Test Result H/L Range Note Laboratory test finding 08/20/2020 In House Hemoglobin A1c 12.0 Glucose 185 Laboratory test finding 05/18/2020 In House Glucose 145 Hemoglobin A1c 8.9 Procedures Date Code Description Status 08/20/2020 62307 Amb Glucose Monitoring Interpret ation And Report Completed 05/18/2020 02585 Amb Glucose Monitoring Interpret ation And Report Completed 05/18/2020 [id number] Diabetic Foot Exam Completed Medical Devices Description No Information Available Encounters Type Date Location Provider Dx Diagnosis Office Visit 08/20/2020 1:30p DR. Deborah Sosa MD E 10.65 Type 1 diabetes mellitus with hyperglycemia Z91.19 Patient's noncompliance w ot h medical treatment and regimen M80.051A Age-rel osteopor w current p ath fracture, right femur, init Office Visit 05/18/2020 11:30a DR. Deborah Sosa MD E 10.65 Type 1 diabetes mellitus with hyperglycemia Z91.19 Patient's noncompliance w ot h medical treatment and regimen M80.051A Age-rel osteopor w current p ath fracture, right femur, init Assessments Date Code Description Provider 11/01/2020 E10.65 Type 1 diabetes mellitus with hy perglycemia Deborah Sosa MD 11/01/2020 Z91.19 Patient's noncomplia nce with other medical treatment and regimen Deborah Sosa MD 11/01/2020 M80.051A Age-related osteopor osis with current pathological fracture, right femur, initial encounter for fracture Deborah Sosa MD 08/20/2020 E10.65 Type 1 diabetes mellitus with hy perglycemia Deborah Sosa MD 08/20/2020 Z91.19 Patient's noncomplia nce with other medical treatment and regimen Deborah Sosa MD 08/20/2020 M80.051A Age-related osteopor osis with current pathological fracture, right femur, initial encounter for fracture Deborah Sosa MD 05/18/2020 E10.65 Type 1 diabetes mellitus with hy perglycemia Deborah Sosa MD 05/18/2020 Z91.19 Patient's noncomplia nce with other medical treatment and regimen Deborah Sosa MD 05/18/2020 M80.051A Age-related osteopor osis with current pathological fracture, right femur, initial encounter for fracture Deborah Sosa MD Plan of Treatment 11/01/2020 - Deborah Sosa MD* E10.65 Type 1 diabetes mellitus with hyperglycemia* Comments:* in office a1c=9 ( 10/19/2020) last a1c=12 up from 8.9,++++ his friend ( unoffical guardian) comes in with him today. trying to give low sugar high protein food, following a keto diet.- was hopsitaized sn then in rehab [facility]- seen by Milena Porter the other day- woulnd is smaller- has appt with Dr. Alves A1c= 8.9%, 12.8 (January 2020), 10.5% ,8.2 up slightly from 7.9 Prior A1c :12.2 9.4% ,9.1% 8.5% ,7.4% ,.7.4 9.1%, Current medication: Tresiba , 14 units, in am, Humalog 5 units in am 5 at dinnerRecommendations:Difficult situation.No formal changes to dosing.Follow- up in 3 months. * Follow up:* 2 months- * Z91.19 Patient's noncompliance with other medical treatment and regimen* Comments:* Patient is using his DEXCOM and not really checking his blood sugars but not responding to the warnings and alert for hypoglycemia. * M80.051A Age-related osteoporosis with current pathological fracture, right femur, initial encounter for fracture* Comments:* He fell and fractured his right hip in October 2016 It was fixed. Advised that most likely he has osteoporosis. DXA 2016:t score left femur = -0.7. He does not appear to have osteoporosis despite his type 1 diabetes and thin build. wearing a brace on his left knee. Surgery deferred He complains that he cant get surgery because surgeons will not approve. i explain that A1c need to be < 8% for surgery clearance. Fell and hit head and left eye- was walking without cane. Functional Status Description No Information Available Mental Status Description No Information Available Referrals Description No Information Available
--- OUTSIDE RECORDS SUMMARY | 2020-11-08 19:30 | CCD ---
Author Author [facility] Organization [facility] Address Unknown Phone Unavailable Care Team Providers Care Roofer Metal Name Role Phone Saran Barros Unavailable Unavailable FiorellaSaran tavera Unavailable Unavailable Fiorella, Giselle PHILIP Unavailable Unavailable Fiorella, Giselle PHILIP Unavailable Unavailable Fiorella, Giselle PHILIP Unavailable Unavailable Fiorella, Giselle PHILIP Unavailable Unavailable Fiorella, Giselle PHILIP Unavailable Unavailable Fiorella, Giselle PHILIP Unavailable Unavailable Fiorella, Giselle PHILIP Unavailable Unavailable Fiorella, Giselle PHILIP Unavailable Unavailable Fiorella, Giselle PHILIP Unavailable Unavailable Fiorella, Giselle PHILIP Unavailable Unavailable Fiorella, Giselle MD Unavailable Unavailable Fiorella, Giselle PHILIP Unavailable Unavailable Fiorella, Giselle PHILIP Unavailable Unavailable FiorellaSaran Unavailable Unavailable FiorellaSaran Unavailable Unavailable FiorellaSaran Unavailable Unavailable Fiorella, Giselle PHILIP Unavailable Unavailable Fiorella, Giselle PHILIP Unavailable Unavailable Fiorella, Giselle MD Unavailable Unavailable Fiorella, Giselle PHILIP Unavailable Unavailable Fiorella, Giselle PHILIP Unavailable Unavailable Fiorella, Giselle PHILIP Unavailable Unavailable FiorellaSaran Unavailable Unavailable FiorellaSaran Unavailable Unavailable Fiorella, Giselle PHILIP Unavailable Unavailable Fiorella, Giselle MD Unavailable Unavailable Fiorella, Giselle MD Unavailable Unavailable Fiorella, Giselle MD Unavailable Unavailable Fiorella, Giselle MD Unavailable Unavailable Fiorella, Giselle MD Unavailable Unavailable Fiorella, Giselle MD Unavailable Unavailable Fiorella, Giselle PHILIP Unavailable Unavailable Fiorella, Giselle PHILIP Unavailable Unavailable Fiorella, Giselle PHILIP Unavailable Unavailable Fiorella, Giselle MD Unavailable Unavailable Fiorella, Giselle MD Unavailable Unavailable Fiorella, Giselle MD Unavailable Unavailable Fiorella, Giselle MD Unavailable Unavailable Fiorella, Giselle MD Unavailable Unavailable Fiorella, Giselle MD Unavailable Unavailable Fiorella, Giselle MD Unavailable Unavailable Fiorella, Giselle MD Unavailable Unavailable Fiorella, Giselle MD Unavailable Unavailable Fiorella, Giselle MD Unavailable Unavailable Fiorella, Giselle MD Unavailable Unavailable Fiorella, Giselle MD Unavailable Unavailable Fiorella, Giselle MD Unavailable Unavailable Fiorella, Giselle MD Unavailable Unavailable Fiorella, Giselle MD Unavailable Unavailable Fiorella, Giselle MD Unavailable Unavailable Fiorella, Giselle MD Unavailable Unavailable Fiorella, Giselle MD Unavailable Unavailable Fiorella, Giselle MD Unavailable Unavailable Fiorella, Giselle MD Unavailable Unavailable Fiorella, Giselle MD Unavailable Unavailable Fiorella, Giselle MD Unavailable Unavailable Fiorella, Giselle MD Unavailable Unavailable Fiorella, Giselle MD Unavailable Unavailable Fiorella, Giselle MD Unavailable Unavailable Fiorella, Giselle MD Unavailable Unavailable Symenow, Malathi Dixie PA Unavailable Unavailable Symenow, Malathi Dixie PA Unavailable Unavailable Symenow, Malathi Dixie PA Unavailable Unavailable Symenow, Malathi Dixie PA Unavailable Unavailable Symenow, Malathi Dixie PA Unavailable Unavailable Symenow, Malathi Dixie PA Unavailable Unavailable Symenow, Malathi Dixie PA Unavailable Unavailable Symenow, Malathi Dixie PA Unavailable Unavailable Symenow, Malathi Dixie PA Unavailable Unavailable Symenow, Malathi Dixie PA Unavailable Unavailable Symenow, Malathi Dixie PA Unavailable Unavailable Symenow, Malathi Dixie PA Unavailable Unavailable Symenow, Malathi Dixie PA Unavailable Unavailable Symenow, Malathi Dixie PA Unavailable Unavailable Symenow, Malathi Dixie PA Unavailable Unavailable Symenow, Malathi Dixie PA Unavailable Unavailable Symenow, Malathi Dixie PA Unavailable Unavailable Symenow, Malathi Dixie PA Unavailable Unavailable Symenow, Malathi Dixie PA Unavailable Unavailable Symenow, Malathi Dixie PA Unavailable Unavailable Symenow, Malathi Dixie PA Unavailable Unavailable Symenow, Malathi Dixie PA Unavailable Unavailable Symenow, Malathi Dixie PA Unavailable Unavailable Symenow, Malathi Dixie PA Unavailable Unavailable Symenow, Malathi Dixie PA Unavailable Unavailable Symenow, Malathi Dixie PA Unavailable Unavailable Symenow, Malathi Dixie PA Unavailable Unavailable Symenow, Malathi Dixie PA Unavailable Unavailable Symenow, Malathi Dixie PA Unavailable Unavailable Symenow, Malathi Dixie PA Unavailable Unavailable Symenow, Malathi Dixie PA Unavailable Unavailable Symenow, Malathi Dixie PA Unavailable Unavailable Symenow, Malathi Dixie PA Unavailable Unavailable Symenow, Malathi Dixie PA Unavailable Unavailable Symenow, Malathi Dixie PA Unavailable Unavailable Symenow, Malathi Dixie PA Unavailable Unavailable ANTECOL, Julienne FRANKLIN MD Unavailable Unavailable ANTECOL, Julienne FRANKLIN MD Unavailable Unavailable ANTECOL, Julienne FRANKLIN MD Unavailable Unavailable ANTECOL, Julienne FRANKLIN MD Unavailable Unavailable ANTECOL, Juleinne FRANKLIN MD Unavailable Unavailable ANTECOL, Julienne FRANKLIN MD Unavailable Unavailable ANTECOL, Julienne FRANKLIN MD Unavailable Unavailable ANTECOL, Julienne FRANKLIN MD Unavailable Unavailable ANTECOL, Julienne FRANKLIN MD Unavailable Unavailable ANTECOL, Julienne FRANKLIN MD Unavailable Unavailable ANTECOL, Julienne FRANKLIN MD Unavailable Unavailable ANTECOL, Julienne FRANKLIN MD Unavailable Unavailable ANTECOL, Julienne FRANKLIN MD Unavailable Unavailable ANTECOL, Julienne FRANKLIN MD Unavailable Unavailable ANTECOL, Julienne FRANKLIN MD Unavailable Unavailable ANTECOL, Julienne FRANKLIN MD Unavailable Unavailable ANTECOL, Julienne FRANKLIN MD Unavailable Unavailable ANTECOL, Julienne FRANKLIN MD Unavailable Unavailable ANTECOL, Julienne FRANKLIN MD Unavailable Unavailable ANTECOL, Julienne FRANKLIN MD Unavailable Unavailable ANTECOL, Julienne FRANKLIN MD Unavailable Unavailable ANTECOL, Julienne FRANKLIN MD Unavailable Unavailable ANTECOL, Julienne FRANKLIN MD Unavailable Unavailable ANTECOL, Julienne FRANKLIN MD Unavailable Unavailable ANTECOL, Julienne FRANKLIN MD Unavailable Unavailable ANTECOL, Julienne FRANKLIN MD Unavailable Unavailable ANTECOL, Julienne FRANKLIN MD Unavailable Unavailable ANTECOL, Julienne FRANKLIN MD Unavailable Unavailable ANTECOL, Julienne FRANKLIN MD Unavailable Unavailable ANTECOL, Julienne FRANKLIN MD Unavailable Unavailable ANTECOL, Julienne FRANKLIN MD Unavailable Unavailable ANTECOL, Julienne FRANKLIN MD Unavailable Unavailable ANTECOL, Julienne FRANKLIN MD Unavailable Unavailable ANTECOL, Julienne FRANKLIN MD Unavailable Unavailable ANTECOL, Julienne FRANKLIN MD Unavailable Unavailable ANTECOL, Julienne FRANKLIN MD Unavailable Unavailable ANTECOL, Julienne FRANKLIN MD Unavailable Unavailable ANTECOL, Julienne FRANKLIN MD Unavailable Unavailable ANTECOL, Julienne FRANKLIN MD Unavailable Unavailable ANTECOL, Julienne FRANKLIN MD Unavailable Unavailable ANTECOL, Julienne FRANKLIN MD Unavailable Unavailable ANTECOL, Julienne FRANKLIN MD Unavailable Unavailable ANTECOL, Julienne FRANKLIN MD Unavailable Unavailable ANTECOL, Julienne FRANKLIN MD Unavailable Unavailable ANTECOL, Julienne FRANKLIN MD Unavailable Unavailable ANTECOL, Julienne FRANKLIN MD Unavailable Unavailable ANTECOL, Julienne FRANKLIN MD Unavailable Unavailable ANTECOL, Julienne FRANKLIN MD Unavailable Unavailable ANTECOL, Julienne FRANKLIN MD Unavailable Unavailable ANTECOL, Julienne FRANKLIN MD Unavailable Unavailable ANTECOL, Julienne FRANKLIN MD Unavailable Unavailable ANTECOL, Julienne FRANKLIN MD Unavailable Unavailable ANTECOL, Julienne FRANKLIN MD Unavailable Unavailable ANTECOL, Julienne FRANKLIN MD Unavailable Unavailable ANTECOL, Julienne FRANKLIN MD Unavailable Unavailable Fish, [facility], PA-C Unavailable Unavailabl e Fish, [facility], PA-C Unavailable Unavailabl e Fish, [facility], PA-C Unavailable Unavailabl e Fish, [facility], PA-C Unavailable Unavailabl e Fish, [facility], PA-C Unavailable Unavailabl e Fish, [facility], PA-C Unavailable Unavailabl e Fish, [facility], PA-C Unavailable Unavailabl e Fish, [facility], PA-C Unavailable Unavailabl e Fish, [facility], PA-C Unavailable Unavailabl e Fish, [facility], PA-C Unavailable Unavailabl e Fish, [facility], PA-C Unavailable Unavailabl e Fish, [facility], PA-C Unavailable Unavailabl e Fish, [facility], PA-C Unavailable Unavailabl e Fish, [facility], PA-C Unavailable Unavailabl e Fish, [facility], PA-C Unavailable Unavailabl e Fish, [facility], PA-C Unavailable Unavailabl e Fish, [facility], PA-C Unavailable Unavailabl e Fish, [facility], PA-C Unavailable Unavailabl e Fish, [facility], PA-C Unavailable Unavailabl e Fish, [facility], PA-C Unavailable Unavailabl e Fish, [facility], PA-C Unavailable Unavailabl e Fish, [facility], PA-C Unavailable Unavailabl e Fish, [facility], PA-C Unavailable Unavailabl e Fish, [facility], PA-C Unavailable Unavailabl e Fish, [facility], PA-C Unavailable Unavailabl e Fish, [facility], PA-C Unavailable Unavailabl e Fish, [facility], PA-C Unavailable Unavailabl e Fish, [facility], PA-C Unavailable Unavailabl e Fish, [facility], PA-C Unavailable Unavailabl e Fish, [facility], PA-C Unavailable Unavailabl e Fish, [facility], PA-C Unavailable Unavailabl e Fish, [facility], PA-C Unavailable Unavailabl e Fish, [facility], PA-C Unavailable Unavailabl e MAJAK, Radha CLANCY DPM Unavailable Unavailable MAJAK, Radha CLANCY DPM Unavailable Unavailable MAJAK, Radha CLANCY DPM Unavailable Unavailable MAJAK, Radha CLANCY DPM Unavailable Unavailable MAJAK, Radha CLANCY DPM Unavailable Unavailable MAJAK, Radha CLANCY DPM Unavailable Unavailable MAJAK, Radha CLANCY DPM Unavailable Unavailable MAJAK, Radha CLANCY DPM Unavailable Unavailable MAJAK, Radha CLANCY DPM Unavailable Unavailable MAJAK, Radha CLANCY DPM Unavailable Unavailable MAJAK, Radha CLANCY DPM Unavailable Unavailable MAJAK, Radha CLANCY DPM Unavailable Unavailable MAJAK, Radha CLANCY DPM Unavailable Unavailable MAJAK, Radha CLANCY DPM Unavailable Unavailable MAJAK, Radha CLANCY DPM Unavailable Unavailable MAJAK, Radha CLANCY DPM Unavailable Unavailable MAJAK, Radha CLANCY DPM Unavailable Unavailable MAJAK, Radha CLANCY DPM Unavailable Unavailable MAJAK, Radha CLANCY DPM Unavailable Unavailable MAJSAMSON, Radha CLANCY DPM Unavailable Unavailable MAJAK, Radha CLANCY DPM Unavailable Unavailable MAJAK, Radha CLANCY DPM Unavailable Unavailable MAJAK, Radha CLANCY DPM Unavailable Unavailable MAJAK, Radha CLANCY DPM Unavailable Unavailable MAJAK, Radha CLANCY DPM Unavailable Unavailable MAJAK, Radha CLANCY DPM Unavailable Unavailable MAJAK, Radha CLANCY DPM Unavailable Unavailable MAJAK, Radha CLANCY DPM Unavailable Unavailable MAJAK, Radha CLANCY DPM Unavailable Unavailable MAJAK, R JULIETH DPM Unavailable Unavailable Fish, [facility], PA-C Unavailable Unavailabl e Fish, [facility], PA-C Unavailable Unavailabl e Fish, [facility], PA-C Unavailable Unavailabl e Fish, [facility], PA-C Unavailable Unavailabl e Fish, [facility], PA-C Unavailable Unavailabl e Fish, [facility], PA-C Unavailable Unavailabl e Fish, [facility], PA-C Unavailable Unavailabl e Fish, [facility], PA-C Unavailable Unavailabl e Fish, [facility], PA-C Unavailable Unavailabl e Fish, [facility], PA-C Unavailable Unavailabl e Fish, [facility], PA-C Unavailable Unavailabl e Fish, [facility], PA-C Unavailable Unavailabl e Fish, [facility], PA-C Unavailable Unavailabl e Fish, [facility], PA-C Unavailable Unavailabl e Fish, [facility], PA-C Unavailable Unavailabl e Fish, [facility], PA-C Unavailable Unavailabl e Fish, [facility], PA-C Unavailable Unavailabl e Fish, [facility], PA-C Unavailable Unavailabl e Fish, [facility], PA-C Unavailable Unavailabl e Fish, [facility], PA-C Unavailable Unavailabl e Fish, [facility], PA-C Unavailable Unavailabl e Fish, [facility], PA-C Unavailable Unavailabl e Fish, [facility], PA-C Unavailable Unavailabl e Fish, [facility], PA-C Unavailable Unavailabl e Fish, [facility], PA-C Unavailable Unavailabl e Fish, [facility], PA-C Unavailable Unavailabl e Fish, [facility], PA-C Unavailable Unavailabl e Fish, [facility], PA-C Unavailable Unavailabl e Fish, [facility], PA-C Unavailable Unavailabl e Fish, [facility], PA-C Unavailable Unavailabl e Fish, [facility], PA-C Unavailable Unavailabl e Fish, [facility], PA-C Unavailable Unavailabl e Fish, [facility], PA-C Unavailable Unavailabl e Fish, B Harry PHILIP Unavailable Unavailable Fish, Boyd Mcdonald MD Unavailable Unavailable Fish, Boyd Mcdonald MD Unavailable Unavailable Fish, Boyd Mcdonald MD Unavailable Unavailable Fish, Boyd Mcdonald MD Unavailable Unavailable Fish, Boyd Mcdonald MD Unavailable Unavailable Fish, B Harry PHILIP Unavailable Unavailable Fish, B Harry PHILIP Unavailable Unavailable Fish, B Harry PHILIP Unavailable Unavailable Fish, B Harry PHILIP Unavailable Unavailable Fish, B Harry PHILIP Unavailable Unavailable Fish, B Harry PHILIP Unavailable Unavailable Fish, B Harry PHILIP Unavailable Unavailable Fish, B Harry PHILIP Unavailable Unavailable Fish, B Harry PHILIP Unavailable Unavailable Fish, B Harry PHILIP Unavailable Unavailable Fish, B Harry PHILIP Unavailable Unavailable Fish, B Harry PHILIP Unavailable Unavailable Fish, B Harry PHILIP Unavailable Unavailable Fish, B Harry PHILIP Unavailable Unavailable Fish, B Harry PHILIP Unavailable Unavailable Fish, B Harry PHILIP Unavailable Unavailable Fish, B Harry PHILIP Unavailable Unavailable Fish, B Harry PHILIP Unavailable Unavailable Fish, B Harry PHILIP Unavailable Unavailable Fish, B Harry PHILIP Unavailable Unavailable Fish, B Harry PHILIP Unavailable Unavailable Fish, B Harry PHILIP Unavailable Unavailable Fish, B Harry PHILIP Unavailable Unavailable Fish, B Harry PHILIP Unavailable Unavailable Fish, B Harry PHILIP Unavailable Unavailable Fish, B Harry PHILIP Unavailable Unavailable Fish, B Harry PHILIP Unavailable Unavailable Fish, B Harry PHILIP Unavailable Unavailable Fish, B Harry PHILIP Unavailable Unavailable Fish, B Harry PHILIP Unavailable Unavailable Fish, B Harry PHILIP Unavailable Unavailable Fish, B Harry PHILIP Unavailable Unavailable Fish, B Harry PHILIP Unavailable Unavailable Fish, B Harry PHILIP Unavailable Unavailable Fish, B Harry PHILIP Unavailable Unavailable Fish, B Harry PHILIP Unavailable Unavailable Fish, B Harry PHILIP Unavailable Unavailable Fish, B Harry PHILIP Unavailable Unavailable Fish, B Harry PHILIP Unavailable Unavailable Fish, B Harry PHILIP Unavailable Unavailable Fish, B Harry PHILIP Unavailable Unavailable Fish, B Harry PHILIP Unavailable Unavailable Fish, B Harry PHILIP Unavailable Unavailable Fish, B Harry PHILIP Unavailable Unavailable Fish, B Harry PHILIP Unavailable Unavailable Fish, B Harry PHILIP Unavailable Unavailable Fish, B Harry PHILIP Unavailable Unavailable TURRIN, CEDRICK Unavailable Unavailable TURRIN, CEDRICK Unavailable Unavailable TURRIN, CEDRICK Unavailable Unavailable TURRIN, CEDRICK Unavailable Unavailable Fish, B Deborah PHILIP Unavailable Unavailable Fish, B Deborah PHILIP Unavailable Unavailable Fish, B Deborah PHILIP Unavailable Unavailable Fish, B Deborah PHILIP Unavailable Unavailable Fish, B Deborah PHILIP Unavailable Unavailable Fish, B Deborah PHILIP Unavailable Unavailable Fish, B Deborah PHILIP Unavailable Unavailable Fish, B Deborah PHILIP Unavailable Unavailable Fish, B Debroah PHILIP Unavailable Unavailable Fish, B Deborah PHILIP Unavailable Unavailable Fish, B Deborah PHILIP Unavailable Unavailable Fish, B Deborah PHILIP Unavailable Unavailable Fish, Boyd Cabrera MD Unavailable Unavailable Fish, Boyd Cabrera MD Unavailable Unavailable Fish, Boyd Cabrera MD Unavailable Unavailable Fish, Boyd Cabrera MD Unavailable Unavailable Fish, Boyd Cabrera MD Unavailable Unavailable Fish, Boyd Cabrera MD Unavailable Unavailable Fish, Boyd Cabrera MD Unavailable Unavailable Fish, Boyd Cabrera MD Unavailable Unavailable Fish, Boyd Cabrera MD Unavailable Unavailable Fish, Boyd Cabrera MD Unavailable Unavailable Fish, Boyd Cabrera MD Unavailable Unavailable Fish, Boyd Cabrera MD Unavailable Unavailable Fish, Boyd Cabrera MD Unavailable Unavailable Fish, Boyd Cabrera MD Unavailable Unavailable Fish, Boyd Cabrera MD Unavailable Unavailable Fish, Boyd Cabrera MD Unavailable Unavailable Fish, Boyd Cabrera MD Unavailable Unavailable Fish, Boyd Cabrera MD Unavailable Unavailable Fish, Boyd Cabrera MD Unavailable Unavailable Fish, Boyd Cabrera MD Unavailable Unavailable Fish, Boyd Cabrera MD Unavailable Unavailable Fish, Boyd Cabrera MD Unavailable Unavailable Fish, Boyd Cabrera MD Unavailable Unavailable Fish, Boyd Cabrera MD Unavailable Unavailable Fish, Boyd Cabrera MD Unavailable Unavailable Fish, Boyd Cabrera MD Unavailable Unavailable Fish, Boyd Cabrera MD Unavailable Unavailable Fish, Boyd Cabrera MD Unavailable Unavailable Fish, Boyd Cabrera MD Unavailable Unavailable Fish, Boyd Cabrera MD Unavailable Unavailable Fish, Boyd Cabrera MD Unavailable Unavailable Fish, Boyd Cabrera MD Unavailable Unavailable Fish, Boyd Cabrera MD Unavailable Unavailable Fish, Boyd Cabrera MD Unavailable Unavailable Fish, Boyd Cabrera MD Unavailable Unavailable Fish, Boyd Cabrera MD Unavailable Unavailable Fish, Boyd Cabrera MD Unavailable Unavailable Fish, Boyd Cabrera MD Unavailable Unavailable Fish, Boyd Cabrera MD Unavailable Unavailable Fish, Boyd Cabrera MD Unavailable Unavailable Fish, Boyd Cabrera MD Unavailable Unavailable Fish, Boyd Cabrera MD Unavailable Unavailable Fish, Boyd Cabrera MD Unavailable Unavailable Fish, Boyd Cabrera MD Unavailable Unavailable Fish, Boyd Cabrera MD Unavailable Unavailable Fish, Boyd Cabrera MD Unavailable Unavailable Fish, Boyd Cabrera MD Unavailable Unavailable Fish, Boyd Cabrera MD Unavailable Unavailable Fish, Boyd Cabrera MD Unavailable Unavailable Fish, Boyd Cabrera MD Unavailable Unavailable Fish, Boyd Cabrera MD Unavailable Unavailable Fish, Boyd Cabrera MD Unavailable Unavailable Juan M Duvall MD Unavailable Unavailable Juan M Duvall MD Unavailable Unavailable Juan M Duvall MD Unavailable Unavailable Juan M Duvall MD Unavailable Unavailable Juan M Duvall MD Unavailable Unavailable Juan M Duvall MD Unavailable Unavailable Juan M Duvall MD Unavailable Unavailable Juan M Duvall MD Unavailable Unavailable Ferenchak, Juan M Marquez MD Unavailable Unavailable Ferenchak, Juan M Marquez MD Unavailable Unavailable Ferenchak, Juan M Marquez MD Unavailable Unavailable Ferenchak, Juan M Marquez MD Unavailable Unavailable Ferenchak, Juan M Marquez MD Unavailable Unavailable Ferenchak, Juan M Marquez MD Unavailable Unavailable Ferenchak, Juan M Marquez MD Unavailable Unavailable Ferenchak, Juan M Marquez MD Unavailable Unavailable Ferenchak, Juan M Marquez MD Unavailable Unavailable Ferenchak, Juan M Marquez MD Unavailable Unavailable Ferenchak, Juan M Marquez MD Unavailable Unavailable Ferenchak, Juan M Marquez MD Unavailable Unavailable Ferenchak, Juan M Marquez MD Unavailable Unavailable Ferenchak, Juan M Marquez MD Unavailable Unavailable Ferenchak, Juan M Marquez MD Unavailable Unavailable Ferenchak, Juan M Marquez MD Unavailable Unavailable Ferenchak, Juan M Marquez MD Unavailable Unavailable Ferenchak, Juan M Marquez MD Unavailable Unavailable Ferenchak, Juan M Marquez MD Unavailable Unavailable Ferenchak, Juan M Marquez MD Unavailable Unavailable Ferenchak, Juan M Marquez MD Unavailable Unavailable Ferenchak, Juan M Marquez MD Unavailable Unavailable Ferenchak, Juan M Marquez MD Unavailable Unavailable Ferenchak, Juan M Marquez MD Unavailable Unavailable Ferenchak, Juan M Marquez MD Unavailable Unavailable Ferenchak, Juan M Marquez MD Unavailable Unavailable Ferenchak, Juan M Marquez MD Unavailable Unavailable Ferenchak, Juan M Marquez MD Unavailable Unavailable Ferenchak, Juan M Marquez MD Unavailable Unavailable Ferenchak, Juan M Marquez MD Unavailable Unavailable Ferenchak, Juan M Marquez MD Unavailable Unavailable Ferenchak, Juan M Marquez MD Unavailable Unavailable Ferenchak, Juan M Marquez MD Unavailable Unavailable Re-disclosure Warning The records that you are about to access may contain information from federally-assisted alcohol or drug abuse programs. If such information is present, then the following federally mandated warning applies: This information has been disclosed to you from records protected by federal confidentiality rules (42 CFR part 2). The federal rules prohibit you from making any further disclosure of this information unless further disclosure is expressly permitted by the written consent of the person to whom it pertains or as otherwise permitted by 42 CFR part 2. A general authorization for the release of medical or other information is NOT sufficient for this purpose. The Federal rules restrict any use of the information to criminally investigate or prosecute any alcohol or drug abuse patient.The records that you are about to access may contain highly sensitive health information, the redisclosure of which is protected by Article 27-F of the [facility] Public Health law. If you continue you may have access to information: Regarding HIV / AIDS; Provided by facilities licensed or operated by the [facility] Office of Mental Health; or Provided by the [facility] Office for People With Developmental Disabilities. If such information is present, then the following [facility] mandated warning applies: This information has been disclosed to you from confidential records which are protected by state law. State law prohibits you from making any further disclosure of this information without the specific written consent of the person to whom it pertains, or as otherwise permitted by law. Any unauthorized further disclosure in violation of state law may result in a fine or detention sentence or both. A general authorization for the release of medical or other information is NOT sufficient authorization for further disc losure. Allergies and Adverse Reactions Type Description Substance Reaction Status Data Source(s ) No Known Allergies No Known Allergies [facility] Environmental Environmental Environmental Unknown Active eCW1 ([facility]) Environmental Environmental Environmental Unknown Active eCW1 ([facility]) Family History Family Member Name Family Member Gender Family Member Status Date o f Status Description Data Source(s) Unknown Unknown Problem MEDENT ([facility]) Unknown Male Problem MEDENT ([facility]) Unknown Unknown Problem MEDENT ([facility]) Unknown Female Problem MEDENT ([facility]) Unknown Female Problem MEDENT ([facility] Encounters Encounter Providers Location Date Indications Data Source(s ) Unknown [address] [facility] [address] 10/28/2020 12:00:00 AM EST eCW1 ([facility]) Unknown [address] [facility] [place] [address] 10/25/2020 12:00:00 AM EST eCW1 ([facility]) Outpatient [address] [facility] [place] [address] 10/25/2020 12:00:00 AM EST eCW1 ([facility]) Unknown [address] [facility] Y [address] 10/25/2020 12:00:00 AM EST eCW1 ([facility]) [place] [address] [facility] [address] 10/25/2020 12:00:00 AM EST eCW1 ([facility]) Outpatient [address] [facility] [address] 10/19/2020 12:00:00 AM EST eCW1 ([facility]) ([id number]) For [employer] [address] [place] [address] 10/19/2020 12:00:00 AM EST eCW1 ([facility]) [place] [address] [facility] [address] 10/19/2020 12:00:00 AM EST eCW1 ([facility]) [place] [address] [facility] [address] 10/18/2020 12:00:00 AM EST eCW1 ([facility]) Unknown [address] [facility] [address] 10/18/2020 12:00:00 AM EST eCW1 ([facility]) Unknown [address] [facility] [address] 10/14/2020 12:00:00 AM EST eCW1 ([facility]) Unknown [address] [facility] [address] 10/11/2020 12:00:00 AM EST eCW1 ([facility]) Unknown [address] [facility] [address] 10/07/2020 12:00:00 AM EST eCW1 ([facility]) ([id number]) For [employer] [address] [place] [address] 10/06/2020 12:00:00 AM EST eCW1 ([facility]) ([id number]) For [employer] [address] [place] [address] 09/29/2020 12:00:00 AM EST eCW1 ([facility]) Outpatient [address] [facility] [address] 09/21/2020 12:00:00 AM EST eCW1 ([facility]) Unknown [address] [facility] [address] 09/08/2020 12:00:00 AM EST eCW1 ([facility]) Unknown [address] [facility] [address] 09/01/2020 12:00:00 AM EST eCW1 ([facility]) Unknown [address] [facility] [address] 08/25/2020 12:00:00 AM EST eCW1 ([facility]) Unknown [address] [facility] [address] 08/24/2020 12:00:00 AM EST eCW1 ([facility]) Outpatient Attender: Deborah Caldwell MD Physical Therapy 08/20 01:30:00 PM EDT MEDENT ([facility]) Unknown [address] [facility] [address] 08/20/2020 12:00:00 AM EDT eCW1 ([facility]) ([id number]) For [employer] [address] [place] [address] 08/18/2020 12:00:00 AM EDT eCW1 ([facility]) Unknown [address] [facility] [address] 08/18/2020 12:00:00 AM EDT eCW1 ([facility]) Unknown [address] [facility] Y [address] 08/18/2020 12:00:00 AM EDT eCW1 ([facility]) Office Visit Attender: RIGOBERTO HERRERA MD Main Office 08/13/2020 10: 06:00 AM EDT MEDENT ([facility]) ([id number]) For [employer] [address] [place] [address] 08/04/2020 12:00:00 AM EDT eCW1 ([facility]) Unknown [address] [facility] Y [address] 08/02/2020 12:00:00 AM EDT eCW1 ([facility]) Unknown [address] [facility] Y [address] 07/30/2020 12:00:00 AM EDT eCW1 ([facility]) ([id number]) [employer] [address] [place] [address] 07/28/2020 12:00:00 AM EDT eCW1 ([facility]) Unknown [address] [facility] Y [address] 07/28/2020 12:00:00 AM EDT eCW1 ([facility]) Outpatient Attender: Dixie RAMIREZ Main Office 07/26/2020 10:45:00 AM EDT MEDENT ([facility]) Office Visit, Est Pt., Level 3 FC [address] [place] [address] 07/23/2020 12:00:00 AM EDT eCW1 ([facility]) Office Visit, Est Pt., Level 3 PC [address] [place] [address] 07/22/2020 12:00:00 AM EDT eCW1 ([facility]) Outpatient [address] [facility] [address] 07/21/2020 12:00:00 AM EDT eCW1 ([facility]) Office Visit Attender: RIGOBERTO HERRERA MD Main Office 07/08/2020 10: 43:00 AM EDT MEDENT ([facility]) Outpatient Attender: JULIETH BURDICK [facility] Office 12/2019 01:30:00 PM EDT MEDENT ([facility] Emergency Attender: CEDRICK Hernandezsultant: Jimmy dahl MD 06/09/2020 01:20:00 PM EDT - 06[facility]09[facility] Attender: JULIETH BURDICK [facility] Office 05/22 01:15:00 PM EDT MEDENT ([facility] Outpatient Attender: Deborah Caldwell MD Physical Therapy 05/18 11:30:00 AM EDT MEDENT ([facility]) Unknown [address] [facility] [place] [address] 05/14/2020 12:00:00 AM EDT eCW1 ([facility]) [facility] [address] [facility] Y [address] 05/14/2020 12:00:00 AM EDT eCW1 ([facility]) Unknown [address] [facility] Y [address] 05/10/2020 12:00:00 AM EDT eCW1 ([facility]) Outpatient Attender: JULIETH BURDICK [facility] Office 06/2020 10:30:00 AM EDT MEDENT ([facility] Unknown [address] [facility] [place] [address] 03/25/2020 12:00:00 AM EDT eCW1 ([facility]) Outpatient Attender: Becky HANSON PA-C Physical Therapy 02/24/2020 10:30:00 AM EDT MEDENT ([facility]) [facility] [address] [facility] Y [address] 02/17/2020 12:00:00 AM EDT eCW1 ([facility]) Outpatient Referrer: Becky HANSON PA-C 02/13/2020 06:4 1:00 AM EDT [facility] Outpatient Attender: Deborah Caldwell MD Physical Therapy 02/09 11:15:00 AM EDT MEDENT ([facility]) [facility] [address] [facility] Y [address] 02/06/2020 12:00:00 AM EDT eCW1 ([facility]) [facility] [place] [address] [facility] [address] 02/06/2020 12:00:00 AM EDT eCW1 ([facility] [place] [address] [facility] [address] 02/03/2020 12:00:00 AM EDT eCW1 ([facility]) [facility] [place] [address] [facility] [address] 01/28/2020 12:00:00 AM EDT eCW1 ([facility]) [facility] [place] [address] [facility] [address] 01/28/2020 12:00:00 AM EDT eCW1 ([facility]) Outpatient Referrer: Becky HANSON PA-C 12/25/2019 12:3 6:00 PM EST [facility] [place] [address] [place] [address], [place] [address] 12/22/2019 12:00:00 AM EST eCW1 ([facility]) Outpatient Attender: Harry Caldwell MD Physical Therapy 11/26/2019 0 2:15:00 PM EST MEDENT ([facility] Outpatient Attender: Dixie RAMIREZ Main Office 11/14/2019 08:45:00 AM EST MEDENT ([facility]) [facility] [place] [address] [facility] [address] 11/12/2019 12:00:00 AM EST eCW1 ([facility]) [facility] [place] [address] [place] [address], [place] [address] 11/10/2019 12:00:00 AM EST eCW1 ([facility]) [facility] [place] [address] [facility] [address] 11/06/2019 12:00:00 AM EST eCW1 ([facility]) [facility] [place] [address] [facility] [address] 11/04/2019 12:00:00 AM EST eCW1 ([facility]) Outpatient Attender: Deborah Caldwell MD Physical Therapy 11/03 10:45:00 AM EST MEDENT ([facility]) Outpatient Attender: Giselle Barros MD Main office - [place] 10/07/2019 10:45:00 AM EST MEDENT ([facility]) Immunizations Vaccine Date Status Description Data Source(s) influenza, recombinant, quadrIvalent,injectable, prese rvative free 08/04/2020 07:43:00 AM EDT completed eCW1 ([facility]) influenza, recombinant, quadrIvalent,injectable, prese rvative free 08/04/2020 07:43:00 AM EDT completed eCW1 ([facility]) influenza, recombinant, quadrIvalent,injectable, prese rvative free 08/04/2020 07:43:00 AM EDT completed eCW1 ([facility]) influenza, recombinant, quadrIvalent,injectable, prese rvative free 08/04/2020 07:43:00 AM EDT completed eCW1 ([facility]) influenza, recombinant, quadrIvalent,injectable, prese rvative free 08/04/2020 07:43:00 AM EDT completed eCW1 ([facility]) influenza, recombinant, quadrIvalent,injectable, prese rvative free 08/04/2020 07:43:00 AM EDT completed eCW1 ([facility]) influenza, recombinant, quadrIvalent,injectable, prese rvative free 08/04/2020 07:43:00 AM EDT completed eCW1 ([facility]) influenza, recombinant, quadrIvalent,injectable, prese rvative free 08/04/2020 07:43:00 AM EDT completed eCW1 ([facility]) influenza, recombinant, quadrIvalent,injectable, prese rvative free 08/04/2020 07:43:00 AM EDT completed eCW1 ([facility]) influenza, recombinant, quadrIvalent,injectable, prese rvative free 08/04/2020 07:43:00 AM EDT completed eCW1 ([facility]) influenza, recombinant, quadrIvalent,injectable, prese rvative free 08/04/2020 07:43:00 AM EDT completed eCW1 ([facility]) influenza, recombinant, quadrIvalent,injectable, prese rvative free 08/04/2020 07:43:00 AM EDT completed eCW1 ([facility]) influenza, recombinant, quadrIvalent,injectable, prese rvative free 08/04/2020 07:43:00 AM EDT completed eCW1 ([facility]) influenza, recombinant, quadrIvalent,injectable, prese rvative free 08/04/2020 07:43:00 AM EDT completed eCW1 ([facility]) influenza, recombinant, quadrIvalent,injectable, prese rvative free 08/04/2020 07:43:00 AM EDT completed eCW1 ([facility]) influenza, recombinant, quadrIvalent,injectable, prese rvative free 08/04/2020 07:43:00 AM EDT completed eCW1 ([facility]) influenza, recombinant, quadrIvalent,injectable, prese rvative free 08/04/2020 07:43:00 AM EDT completed eCW1 ([facility]) influenza, recombinant, quadrIvalent,injectable, prese rvative free 08/04/2020 07:43:00 AM EDT completed eCW1 ([facility]) influenza, recombinant, quadrIvalent,injectable, prese rvative free 08/04/2020 07:43:00 AM EDT completed eCW1 ([facility]) influenza, recombinant, quadrIvalent,injectable, prese rvative free 08/04/2020 07:43:00 AM EDT completed eCW1 ([facility]) influenza, recombinant, quadrIvalent,injectable, prese rvative free 08/04/2020 07:43:00 AM EDT completed eCW1 ([facility]) influenza, recombinant, quadrIvalent,injectable, prese rvative free 08/04/2020 07:43:00 AM EDT completed eCW1 ([facility]) influenza, recombinant, quadrIvalent,injectable, prese rvative free 08/04/2020 07:43:00 AM EDT completed eCW1 ([facility]) influenza, recombinant, quadrIvalent,injectable, prese rvative free 08/04/2020 07:43:00 AM EDT completed eCW1 ([facility]) influenza, recombinant, quadrIvalent,injectable, prese rvative free 08/04/2020 07:43:00 AM EDT completed eCW1 ([facility]) influenza, recombinant, quadrIvalent,injectable, prese rvative free 08/04/2020 07:43:00 AM EDT completed eCW1 ([facility]) influenza, recombinant, quadrIvalent,injectable, prese rvative free 08/04/2020 07:43:00 AM EDT completed eCW1 ([facility]) influenza, recombinant, quadrIvalent,injectable, prese rvative free 08/04/2020 07:43:00 AM EDT completed eCW1 ([facility]) influenza, recombinant, quadrIvalent,injectable, prese rvative free 08/04/2020 07:43:00 AM EDT completed eCW1 ([facility]) INFLUENZA VIRUS VACCINE QUADRIVAL [id number](6 MOS AND UP)/PF 06/20/2020 12:00:00 AM EDT completed [facility] Medications Medication Brand Name Start Date Product Form Dose Route Admi nistrative Instructions Pharmacy Instructions Status Indications Reaction Description Data Source(s) 0.6 mg 11/04/2020 12:00:00 AM EST tablet 7 TAKE TWO TABLETS BY MOUTH FOR THE FIRST DOSE THEN 1 TABLET 1 HOUR AFTER THAT THEN TAKE ONE TABLET BY MOUTH EVERY DAY FOR 3 DAYS TAKE TWO TABLETS BY MOUTH FOR THE FIRST DOSE THEN 1 TABLET 1 HOUR AFTER THAT THEN TAKE ONE TABLET BY MOUTH EVERY DAY FOR 3 DAYS SOLD: 11/04/2020 [facility] 32 gauge x 5/32" 11/03/2020 12:00:00 AM EST needle 400 USE FOUR TIMES A DAY WITH TRESIBA USE FOUR TIMES A DAY WITH TRESIBA SOLD: 11/04/2020 [facility] 1 mg 11/03/2020 12:00:00 AM EST recon soln 2 US E NEEDED HYPOGLYCEMIA USE NEEDED HYPOGLYCEMIA SOLD: 11/04/2020 [facility] 100 unit/mL 11/03/2020 12:00:00 AM EST insulin pen 30 USE DIRECTED PER SLIDING SCALE * MAXIMUM DAILY DOSE = 30 UNITS USE DIRECTED PER SLIDING SCALE * MAXIMUM DAILY DOSE = 30 UNITS SOLD: 11/04/2020 [facility] Wheelchair - Wheelchair - 10/19/2020 12:00:00 AM EST active Wheelchair - eCW1 ([facility]) Wheelchair - Wheelchair - 10/19/2020 12:00:00 AM EST active Wheelchair - eCW1 ([facility]) Wheelchair - Wheelchair - 10/19/2020 12:00:00 AM EST active Wheelchair - eCW1 ([facility]) 40 mg 10/19/2020 12:00:00 AM EST capsule,delayed release (DR/EC) 30 TAKE ONE CAPSULE BY MOUTH EVERY DAY TAKE ONE CAPSULE BY MOUTH EVERY DAY SOLD: 10/19/2020 [facility] 150 mg 10/19/2020 12:00:00 AM EST capsule 180 TAKE ONE CAPSULE BY MOUTH TWICE A DAY AT 8AM. AND 8PM. TAKE ONE CAPSULE BY MOUTH TWICE A DAY AT 8AM. AND 8PM. SOLD: 10/19/2020 [facility] Wheelchair - Wheelchair - 10/19/2020 12:00:00 AM EST active Wheelchair - eCW1 ([facility]) 300 mg 10/19/2020 12:00:00 AM EST capsule 8 TAKE TWO CAPSULES BY MOUTH EVERY DAY TAKE TWO CAPSULES BY MOUTH EVERY DAY SOLD: 10/19/2020 [facility] Wheelchair - Wheelchair - 10/19/2020 12:00:00 AM EST active Wheelchair - eCW1 ([facility]) Wheelchair - Wheelchair - 10/19/2020 12:00:00 AM EST active Wheelchair - eCW1 ([facility]) Wheelchair - Wheelchair - 10/19/2020 12:00:00 AM EST active Wheelchair - eCW1 ([facility]) 50 mg 10/19/2020 12:00:00 AM EST tablet extended release 24 hr 60 TAKE ONE TABLET BY MOUTH TWICE A DAY TAKE ONE TABLET BY MOUTH TWICE A DAY SOLD: 10/19/2020 [facility] 20 mg 10/19/2020 12:00:00 AM EST capsule 30 TAKE ONE CAPSULE BY MOUTH EVERY DAY TAKE ONE CAPSULE BY MOUTH EVERY DAY SOLD: 10/19/2020 [facility] 24 HR Bupropion Hydrochloride 300 MG Extended Release Oral T ablet BUPROPION HCL 10/19/2020 12:00:00 AM EST tablet extended release 24 hr 30 TAKE ONE TABLET BY MOUTH EVERY DAY TAKE ONE TABLET BY MOUTH EVERY DAY SOLD: 10/19/2020 [facility] 80-4.5 mcg/actuation 10/19/2020 12:00:00 AM EST HFA aerosol inhaler 10 INHALE TWO PUFFS BY MOUTH TWICE A DAY INHALE TWO PUFFS BY MOUTH TWICE A DAY SOLD: 10/19/2020 [facility] Wheelchair - Wheelchair - 10/19/2020 12:00:00 AM EST active Wheelchair - eCW1 ([facility]) 20 mg 10/19/2020 12:00:00 AM EST tablet 30 TAKE ONE TABLET BY MOUTH EVERY DAY TAKE ONE TABLET BY MOUTH EVERY DAY SOLD: 10/19/2020 [facility] Wheelchair - Wheelchair - 10/19/2020 12:00:00 AM EST active Wheelchair - eCW1 ([facility]) 20 mg 10/19/2020 12:00:00 AM EST tablet 30 TAKE ONE TABLET BY MOUTH EVERY DAY TAKE ONE TABLET BY MOUTH EVERY DAY SOLD: 10/19/2020 [facility] Wheelchair - Wheelchair - 10/19/2020 12:00:00 AM EST active Wheelchair - eCW1 ([facility]) 100 mg 10/19/2020 12:00:00 AM EST tablet 30 TAKE ONE-HALF TABLET BY MOUTH EVERY DAY TAKE ONE-HALF TABLET BY MOUTH EVERY DAY SOLD: 10/19/2020 [facility] 100 unit/mL 10/18/2020 12:00:00 AM EST solution 30 USE DIRECTED PER SLIDING SCALE MAXIMUM DAILY DOSE = 30 UNITS USE DIRECTED PER SLIDING SCALE MAXIMUM DAILY DOSE = 30 UNITS SOLD: 10/19/2020 [facility] 100 unit/mL (3 mL) 10/18/2020 12:00:00 AM EST insulin pen 30 INJECT 32 UNITS ONCE DAILY DIRECTED INJECT 32 UNITS ONCE DAILY DIRECTED SOLD: 10/19/2020 [facility] 300 mg 09/30/2020 12:00:00 AM EST capsule 28 GIVE 2 CAPSULES BY MOUTH DAILY FOR 2 WEEKS GIVE 2 CAPSULES BY MOUTH DAILY FOR 2 WEEKS SOLD: 10/01/2020 [facility] 20 mg 08/13/2020 12:00:00 AM EDT tablet 90 TAKE ONE TABLET BY MOUTH EVERY DAY TAKE ONE TABLET BY MOUTH EVERY DAY SOLD: 08/17/2020 [facility] Allopurinol 100 MG Oral Tablet Allopurinol 07/25/2020 12:00:00 AM EDT ORAL active [facility] ([facility]) Magnesium 07/25/2020 12:00:00 AM EDT ORAL active MEDENT ([facility]) QC Tumeric Complex 07/25/2020 12:00:00 AM EDT ORAL active MEDENT ([facility]) lansoprazole 30 MG Delayed Release Oral Capsule [Prevacid] P revacid 07/25/2020 12:00:00 AM EDT ORAL active M EDENT ([facility]) Mometasone Furoate Mometasone Furoate 07/25/2020 12:00:00 AM EDT active MEDENT ([facility]) 20 mg 07/07/2020 12:00:00 AM EDT capsule 30 TAKE ONE CAPSULE BY MOUTH EVERY DAY IN THE MORNING TAKE ONE CAPSULE BY MOUTH EVERY DAY IN THE MORNING [facility] 20 mg 07/07/2020 12:00:00 AM EDT capsule 30 TAKE ONE CAPSULE BY MOUTH EVERY DAY IN THE MORNING TAKE ONE CAPSULE BY MOUTH EVERY DAY IN THE MORNING [facility] doxycycline hyclate 100 MG Oral Tablet DOXYCYCLINE HYCLATE 0 06/25/2020 12:00:00 AM EDT tablet 20 TAKE ONE TABLET BY MOUTH TWI CE A DAY FOR 10 DAYS TAKE ONE TABLET BY MOUTH TWICE A DAY FOR 10 DAYS SOLD: 06/25/2020 [facility] 24 HR Bupropion Hydrochloride 300 MG Extended Release Oral T ablet BUPROPION HCL 06/23/2020 12:00:00 AM EDT tablet extended release 24 hr 30 TAKE ONE TABLET BY MOUTH EVERY DAY IN THE MORNING TAKE ONE TABLET BY MOUTH EVERY DAY IN E MORNING SOLD: 06/25/2020 [facility] Levofloxacin 750 MG Oral Tablet Levofloxacin 06/04/2020 12:00:00 AM E DT ORAL active MEDENT ([facility] 750 mg 06/04/2020 12:00:00 AM EDT tablet 14 TAKE ONE TABLET BY MOUTH EVERY DAY TAKE ONE TABLET BY MOUTH EVERY DAY SOLD: 06/04/2020 [facility] 100 unit/mL (3 mL) 05/19/2020 12:00:00 AM EDT insulin pen 30 USE DIRECTED 32 UNITS ONCE DAILY MAXIMUM DAILY DOSE = 32 UNITS USE DIRECTED 32 UNITS ONCE DAILY MAXIMUM DAILY DOSE = 32 UNITS SOLD: 05/25/2020 [facility] 50 mg 05/05/2020 12:00:00 AM EDT tablet extended release 24 hr 60 TAKE ONE TABLET BY MOUTH TWICE A DAY TAKE ONE TABLET BY MOUTH TWICE A DAY SOLD: 07/10/2020 [facility] 50 mg 05/05/2020 12:00:00 AM EDT tablet extended release 24 hr 60 TAKE ONE TABLET BY MOUTH TWICE A DAY TAKE ONE TABLET BY MOUTH TWICE A DAY SOLD: 05/07/2020 [facility] 50 mg 05/05/2020 12:00:00 AM EDT tablet extended release 24 hr 60 TAKE ONE TABLET BY MOUTH TWICE A DAY TAKE ONE TABLET BY MOUTH TWICE A DAY SOLD: 08/19/2020 [facility] 40 mg 05/05/2020 12:00:00 AM EDT tablet 90 TAKE ONE TABLET BY MOUTH EVERY DAY TAKE ONE TABLET BY MOUTH EVERY DAY SOLD: 05/07/2020 [facility] 40 mg 05/05/2020 12:00:00 AM EDT tablet 90 TAKE ONE TABLET BY MOUTH EVERY DAY TAKE ONE TABLET BY MOUTH EVERY DAY SOLD: 11/04/2020 [facility] 150 mg 05/05/2020 12:00:00 AM EDT capsule 60 TAKE ONE CAPSULE BY MOUTH TWICE A DAY TAKE ONE CAPSULE BY MOUTH TWICE A DAY SOLD: 05/07/2020 [facility] 150 mg 05/05/2020 12:00:00 AM EDT capsule 60 TAKE ONE CAPSULE BY MOUTH TWICE A DAY TAKE ONE CAPSULE BY MOUTH TWICE A DAY SOLD: 07/31/2020 [facility] 600 mg 04/29/2020 12:00:00 AM EDT tablet 28 TAKE ONE TABLET BY MOUTH TWICE A DAY TAKE ONE TABLET BY MOUTH TWICE A DAY SOLD: 04/30/2020 [facility] 400 mg (241.3 mg magnesium) 04/23/2020 12:00:00 AM EDT table t 270 TAKE ONE TABLET BY MOUTH THREE TIMES A DAY TAKE ONE TABLET BY MOUTH THREE TIMES A DAY SOLD: 04/24/2020 [facility] 400 mg (241.3 mg magnesium) 04/23/2020 12:00:00 AM EDT table t 270 TAKE ONE TABLET BY MOUTH THREE TIMES A DAY TAKE ONE TABLET BY MOUTH THREE TIMES A DAY SOLD: 07/02/2020 [facility] sildenafil 100 MG Oral Tablet Sildenafil Citrate 100 M G Sildenafil Citrate 100 MG 03/25/2020 12:00:00 AM EDT 1.0 {tablet} activ e Sildenafil Citrate 100 MG eCW1 ([facility]) sildenafil 100 MG Oral Tablet Sildenafil Citrate 100 M G Sildenafil Citrate 100 MG 03/25/2020 12:00:00 AM EDT 1.0 {tablet} activ e Sildenafil Citrate 100 MG eCW1 ([facility]) sildenafil 100 MG Oral Tablet Sildenafil Citrate 100 M G Sildenafil Citrate 100 MG 03/25/2020 12:00:00 AM EDT 1.0 {tablet} activ e Sildenafil Citrate 100 MG eCW1 ([facility]) sildenafil 100 MG Oral Tablet Sildenafil Citrate 100 M G Sildenafil Citrate 100 MG 03/25/2020 12:00:00 AM EDT 1.0 {tablet} activ e Sildenafil Citrate 100 MG eCW1 ([facility]) sildenafil 100 MG Oral Tablet Sildenafil Citrate 100 M G Sildenafil Citrate 100 MG 03/25/2020 12:00:00 AM EDT 1.0 {tablet} suspe nded Sildenafil Citrate 100 MG eCW1 ([facility]) sildenafil 100 MG Oral Tablet Sildenafil Citrate 100 M G Sildenafil Citrate 100 MG 03/25/2020 12:00:00 AM EDT 1.0 {tablet} activ e Sildenafil Citrate 100 MG eCW1 ([facility]) sildenafil 100 MG Oral Tablet Sildenafil Citrate 100 M G Sildenafil Citrate 100 MG 03/25/2020 12:00:00 AM EDT 1.0 {tablet} activ e Sildenafil Citrate 100 MG eCW1 ([facility]) sildenafil 100 MG Oral Tablet Sildenafil Citrate 100 M G Sildenafil Citrate 100 MG 03/25/2020 12:00:00 AM EDT 1.0 {tablet} suspe nded Sildenafil Citrate 100 MG eCW1 ([facility]) sildenafil 100 MG Oral Tablet Sildenafil Citrate 100 M G Sildenafil Citrate 100 MG 03/25/2020 12:00:00 AM EDT 1.0 {tablet} activ e Sildenafil Citrate 100 MG eCW1 ([facility]) sildenafil 100 MG Oral Tablet Sildenafil Citrate 100 M G Sildenafil Citrate 100 MG 03/25/2020 12:00:00 AM EDT 1.0 {tablet} activ e Sildenafil Citrate 100 MG eCW1 ([facility]) sildenafil 100 MG Oral Tablet Sildenafil Citrate 100 M G Sildenafil Citrate 100 MG 03/25/2020 12:00:00 AM EDT 1.0 {tablet} activ e Sildenafil Citrate 100 MG eCW1 ([facility]) sildenafil 100 MG Oral Tablet Sildenafil Citrate 100 M G Sildenafil Citrate 100 MG 03/25/2020 12:00:00 AM EDT 1.0 {tablet} activ e Sildenafil Citrate 100 MG eCW1 ([facility]) sildenafil 100 MG Oral Tablet Sildenafil Citrate 100 M G Sildenafil Citrate 100 MG 03/25/2020 12:00:00 AM EDT 1.0 {tablet} activ e Sildenafil Citrate 100 MG eCW1 ([facility]) sildenafil 100 MG Oral Tablet Sildenafil Citrate 100 M G Sildenafil Citrate 100 MG 03/25/2020 12:00:00 AM EDT 1.0 {tablet} activ e Sildenafil Citrate 100 MG eCW1 ([facility]) sildenafil 100 MG Oral Tablet Sildenafil Citrate 100 M G Sildenafil Citrate 100 MG 03/25/2020 12:00:00 AM EDT 1.0 {tablet} suspe nded Sildenafil Citrate 100 MG eCW1 ([facility]) sildenafil 100 MG Oral Tablet Sildenafil Citrate 100 M G Sildenafil Citrate 100 MG 03/25/2020 12:00:00 AM EDT 1.0 {tablet} activ e Sildenafil Citrate 100 MG eCW1 ([facility]) sildenafil 100 MG Oral Tablet Sildenafil Citrate 100 M G Sildenafil Citrate 100 MG 03/25/2020 12:00:00 AM EDT 1.0 {tablet} activ e Sildenafil Citrate 100 MG eCW1 ([facility]) sildenafil 100 MG Oral Tablet Sildenafil Citrate 100 M G Sildenafil Citrate 100 MG 03/25/2020 12:00:00 AM EDT 1.0 {tablet} activ e Sildenafil Citrate 100 MG eCW1 ([facility]) sildenafil 100 MG Oral Tablet Sildenafil Citrate 100 M G Sildenafil Citrate 100 MG 03/25/2020 12:00:00 AM EDT 1.0 {tablet} activ e Sildenafil Citrate 100 MG eCW1 ([facility]) 100 mg 03/25/2020 12:00:00 AM EDT tablet 30 TAKE ONE TABLET BY MOUTH EVERY DAY TAKE ONE TABLET BY MOUTH EVERY DAY SOLD: 03/30/2020 [facility] sildenafil 100 MG Oral Tablet Sildenafil Citrate 100 M G Sildenafil Citrate 100 MG 03/25/2020 12:00:00 AM EDT 1.0 {tablet} suspe nded Sildenafil Citrate 100 MG eCW1 ([facility]) sildenafil 100 MG Oral Tablet Sildenafil Citrate 100 M G Sildenafil Citrate 100 MG 03/25/2020 12:00:00 AM EDT 1.0 {tablet} activ e Sildenafil Citrate 100 MG eCW1 ([facility]) sildenafil 100 MG Oral Tablet Sildenafil Citrate 100 M G Sildenafil Citrate 100 MG 03/25/2020 12:00:00 AM EDT 1.0 {tablet} activ e Sildenafil Citrate 100 MG eCW1 ([facility]) sildenafil 100 MG Oral Tablet Sildenafil Citrate 100 M G Sildenafil Citrate 100 MG 03/25/2020 12:00:00 AM EDT 1.0 {tablet} suspe nded Sildenafil Citrate 100 MG eCW1 ([facility]) sildenafil 100 MG Oral Tablet Sildenafil Citrate 100 M G Sildenafil Citrate 100 MG 03/25/2020 12:00:00 AM EDT 1.0 {tablet} suspe nded Sildenafil Citrate 100 MG eCW1 ([facility]) sildenafil 100 MG Oral Tablet Sildenafil Citrate 100 M G Sildenafil Citrate 100 MG 03/25/2020 12:00:00 AM EDT 1.0 {tablet} activ e Sildenafil Citrate 100 MG eCW1 ([facility]) 300 mg 03/24/2020 12:00:00 AM EDT tablet extended release 24 hr 30 TAKE ONE TABLET BY MOUTH EVERY DAY IN THE MORNING TAKE ONE TABLET BY MOUTH EVERY DAY IN THE MORNING SOLD: 03/25/2020 [facility] 20 mg 03/24/2020 12:00:00 AM EDT capsule 30 TAKE ONE CAPSULE BY MOUTH EVERY DAY IN THE MORNING TAKE ONE CAPSULE BY MOUTH EVERY DAY IN THE MORNING [facility] 20 mg 03/24/2020 12:00:00 AM EDT capsule 30 TAKE ONE CAPSULE BY MOUTH EVERY DAY IN THE MORNING TAKE ONE CAPSULE BY MOUTH EVERY DAY IN THE MORNING [facility] 24 HR Bupropion Hydrochloride 300 MG Extended Release Oral T ablet BUPROPION HCL 03/24/2020 12:00:00 AM EDT tablet extended release 24 hr 30 TAKE ONE TABLET BY MOUTH EVERY DAY IN THE MORNING TAKE ONE TABLET BY MOUTH EVERY DAY IN MORNING SOLD: 07/27/2020 [facility] 20 mg 03/24/2020 12:00:00 AM EDT capsule 30 TAKE ONE CAPSULE BY MOUTH EVERY DAY IN THE MORNING TAKE ONE CAPSULE BY MOUTH EVERY DAY IN THE MORNING [facility] 300 mg 03/24/2020 12:00:00 AM EDT tablet extended release 24 hr 30 TAKE ONE TABLET BY MOUTH EVERY DAY IN THE MORNING TAKE ONE TABLET BY MOUTH EVERY DAY IN THE MORNING SOLD: 06/03/2020 [facility] 2 ML Sodium Hyaluronate 10 MG/ML Prefilled Syringe [Euflexxa ] Euflexxa 03/04/2020 12:00:00 AM EDT active MEDENT ([facility]) 600 mg 02/19/2020 12:00:00 AM EDT tablet 28 TAKE 1 TABLET BY MOUTH TWO TIMES A DAY TAKE 1 TABLET BY MOUTH TWO TIMES A DAY SOLD: 02/21/2020 [facility] 20 mg 02/18/2020 12:00:00 AM EDT tablet 6 TAKE 1 TABLET BY MOUTH DIRECTED TAKE 1 TABLET BY MOUTH DIRECTED SOLD: 02/21/2020 [facility] 100 mg 02/17/2020 12:00:00 AM EDT tablet 45 TAKE 1/2 TABLET BY MOUTH ONCE DAILY TAKE 1/2 TABLET BY MOUTH ONCE DAILY SOLD: 05/07/2020 [facility] Pravastatin Sodium 20 MG Oral Tablet PRAVASTATIN SODIUM 12:00:00 AM EDT tablet 30 TAKE 1 TABLET BY MOUTH ONCE DAILY TAKE 1 TABLET BY MOUTH ONCE DAILY SOLD: 05/07/2020 [facility] 100 mg 02/17/2020 12:00:00 AM EDT tablet 45 TAKE 1/2 TABLET BY MOUTH ONCE DAILY TAKE 1/2 TABLET BY MOUTH ONCE DAILY SOLD: 02/21/2020 [facility] Pravastatin Sodium 20 MG Oral Tablet PRAVASTATIN SODIUM 12:00:00 AM EDT tablet 30 TAKE 1 TABLET BY MOUTH ONCE DAILY TAKE 1 TABLET BY MOUTH ONCE DAILY SOLD: 03/25/2020 [facility] 20 mg 02/17/2020 12:00:00 AM EDT capsule 30 TAKE 1 CAPSULE BY MOUTH EVERY MORNING TAKE 1 CAPSULE BY MOUTH EVERY MORNING SOLD: 02/21/2020 [facility] 20 mg 02/17/2020 12:00:00 AM EDT tablet 30 TAKE 1 TABLET BY MOUTH ONCE DAILY TAKE 1 TABLET BY MOUTH ONCE DAILY SOLD: 06/25/2020 [facility] 20 mg 02/17/2020 12:00:00 AM EDT tablet 30 TAKE 1 TABLET BY MOUTH ONCE DAILY TAKE 1 TABLET BY MOUTH ONCE DAILY SOLD: 07/31/2020 [facility] 20 mg 02/17/2020 12:00:00 AM EDT tablet 30 TAKE 1 TABLET BY MOUTH ONCE DAILY TAKE 1 TABLET BY MOUTH ONCE DAILY SOLD: 02/21/2020 [facility] 20 mg 02/17/2020 12:00:00 AM EDT tablet 30 TAKE 1 TABLET BY MOUTH ONCE DAILY TAKE 1 TABLET BY MOUTH ONCE DAILY SOLD: 08/19/2020 [facility] Glucosamine Chondr 500 Complex - Glucosamine Chondr 500 Comp macey - 02/02/2020 12:00:00 AM EDT 1.0 {capsule} suspended Glucosamine Chondr 500 Complex - eCW1 ([facility]) Cyanocobalamin 1000 MCG UNK 02/02/2020 12:00:00 AM EDT 1.0 { tablet} suspended Cyanocobalamin 1000 MCG eCW1 ([facility]) Cephalexin 500 MG Oral Capsule Cephalexin 500 MG 02/02/2020 12:00:0 0 AM EDT 1.0 {capsule} suspended Cephalexin 500 M G eCW1 ([facility]) ammonium lactate 120 MG/ML Topical Cream Ammonium Lact ate 12 % Ammonium Lactate 12 % 02/02/2020 12:00:00 AM EDT 1.0 {application} active Ammonium Lactate 12 % eCW1 ([facility]) Cephalexin 500 MG Oral Capsule Cephalexin 500 MG 02/02/2020 12:00:0 0 AM EDT 1.0 {capsule} suspended Cephalexin 500 M G eCW1 ([facility]) Glucosamine Chondr 500 Complex - Glucosamine Chondr 500 Comp macey - 02/02/2020 12:00:00 AM EDT 1.0 {capsule} suspended Glucosamine Chondr 500 Complex - eCW1 ([facility]) Cephalexin 500 MG Oral Capsule Cephalexin 500 MG 02/02/2020 12:00:0 0 AM EDT 1.0 {capsule} suspended Cephalexin 500 M G eCW1 ([facility]) Cyanocobalamin 1000 MCG UNK 02/02/2020 12:00:00 AM EDT 1.0 { tablet} suspended Cyanocobalamin 1000 MCG eCW1 ([facility]) Cyanocobalamin 1000 MCG UNK 02/02/2020 12:00:00 AM EDT 1.0 { tablet} suspended Cyanocobalamin 1000 MCG eCW1 ([facility]) ammonium lactate 120 MG/ML Topical Cream Ammonium Lact ate 12 % Ammonium Lactate 12 % 02/02/2020 12:00:00 AM EDT 1.0 {application} active Ammonium Lactate 12 % eCW1 ([facility]) Cyanocobalamin 1000 MCG UNK 02/02/2020 12:00:00 AM EDT 1.0 { tablet} active Cyanocobalamin 1000 MCG eCW1 ([facility]) ammonium lactate 120 MG/ML Topical Cream Ammonium Lact ate 12 % Ammonium Lactate 12 % 02/02/2020 12:00:00 AM EDT 1.0 {application} suspended Ammonium Lactate 12 % eCW1 ([facility]) Glucosamine Chondr 500 Complex - Glucosamine Chondr 500 Comp macey - 02/02/2020 12:00:00 AM EDT 1.0 {capsule} suspended Glucosamine Chondr 500 Complex - eCW1 ([facility]) Glucosamine Chondr 500 Complex - Glucosamine Chondr 500 Comp macey - 02/02/2020 12:00:00 AM EDT 1.0 {capsule} suspended Glucosamine Chondr 500 Complex - eCW1 ([facility]) Glucosamine Chondr 500 Complex - Glucosamine Chondr 500 Comp macey - 02/02/2020 12:00:00 AM EDT active 1 capsul e eCW1 ([facility]) Cephalexin 500 MG Oral Capsule Cephalexin 500 MG 02/02/2020 12:00:0 0 AM EDT 1.0 {capsule} suspended Cephalexin 500 M G eCW1 ([facility]) Cephalexin 500 MG Oral Capsule Cephalexin 500 MG 02/02/2020 12:00:0 0 AM EDT 1.0 {capsule} suspended Cephalexin 500 M G eCW1 ([facility]) Glucosamine Chondr 500 Complex - Glucosamine Chondr 500 Comp macey - 02/02/2020 12:00:00 AM EDT 1.0 {capsule} suspended Glucosamine Chondr 500 Complex - eCW1 ([facility]) 500 mg 02/02/2020 12:00:00 AM EDT capsule 20 TAKE ONE CAPSULE BY MOUTH TWICE A DAY TAKE ONE CAPSULE BY MOUTH TWICE A DAY SOLD: 02/03/2020 [facility] Cyanocobalamin 1000 MCG UNK 02/02/2020 12:00:00 AM EDT 1.0 { tablet} suspended Cyanocobalamin 1000 MCG eCW1 ([facility]) Glucosamine Chondr 500 Complex - Glucosamine Chondr 500 Comp macey - 02/02/2020 12:00:00 AM EDT 1.0 {capsule} suspended Glucosamine Chondr 500 Complex - eCW1 ([facility]) ammonium lactate 120 MG/ML Topical Cream Ammonium Lact ate 12 % Ammonium Lactate 12 % 02/02/2020 12:00:00 AM EDT 1.0 {application} suspended Ammonium Lactate 12 % eCW1 ([facility]) Cephalexin 500 MG Oral Capsule Cephalexin 500 MG 02/02/2020 12:00:0 0 AM EDT 1.0 {capsule} active Cephalexin 500 MG eCW1 ([facility]) ammonium lactate 120 MG/ML Topical Cream Ammonium Lact ate 12 % Ammonium Lactate 12 % 02/02/2020 12:00:00 AM EDT 1.0 {application} active Ammonium Lactate 12 % eCW1 ([facility]) Cyanocobalamin 1000 MCG UNK 02/02/2020 12:00:00 AM EDT 1.0 { tablet} active Cyanocobalamin 1000 MCG eCW1 ([facility]) Glucosamine Chondr 500 Complex - Glucosamine Chondr 500 Comp macey - 02/02/2020 12:00:00 AM EDT 1.0 {capsule} suspended Glucosamine Chondr 500 Complex - eCW1 ([facility]) Glucosamine Chondr 500 Complex - Glucosamine Chondr 500 Comp macey - 02/02/2020 12:00:00 AM EDT 1.0 {capsule} active Glucosamine Chondr 500 Complex - eCW1 ([facility]) Cephalexin 500 MG Oral Capsule Cephalexin 500 MG 02/02/2020 12:00:0 0 AM EDT 1.0 {capsule} suspended Cephalexin 500 M G eCW1 ([facility]) Cyanocobalamin 1000 MCG UNK 02/02/2020 12:00:00 AM EDT 1.0 { tablet} suspended Cyanocobalamin 1000 MCG eCW1 ([facility]) Cyanocobalamin 1000 MCG UNK 02/02/2020 12:00:00 AM EDT 1.0 { tablet} suspended Cyanocobalamin 1000 MCG eCW1 ([facility]) Cephalexin 500 MG Oral Capsule Cephalexin 500 MG 02/02/2020 12:00:0 0 AM EDT 1.0 {capsule} suspended Cephalexin 500 M G eCW1 ([facility]) Glucosamine Chondr 500 Complex - Glucosamine Chondr 500 Comp macey - 02/02/2020 12:00:00 AM EDT 1.0 {capsule} suspended Glucosamine Chondr 500 Complex - eCW1 ([facility]) ammonium lactate 120 MG/ML Topical Cream Ammonium Lact ate 12 % Ammonium Lactate 12 % 02/02/2020 12:00:00 AM EDT 1.0 {application} active Ammonium Lactate 12 % eCW1 ([facility]) Cephalexin 500 MG Oral Capsule Cephalexin 500 MG 02/02/2020 12:00:0 0 AM EDT 1.0 {capsule} suspended Cephalexin 500 M G eCW1 ([facility]) ammonium lactate 120 MG/ML Topical Cream Ammonium Lact ate 12 % Ammonium Lactate 12 % 02/02/2020 12:00:00 AM EDT 1.0 {application} active Ammonium Lactate 12 % eCW1 ([facility]) Cephalexin 500 MG Oral Capsule Cephalexin 500 MG 02/02/2020 12:00:0 0 AM EDT 1.0 {capsule} suspended Cephalexin 500 M G eCW1 ([facility]) ammonium lactate 120 MG/ML Topical Cream Ammonium Lact ate 12 % Ammonium Lactate 12 % 02/02/2020 12:00:00 AM EDT 1.0 {application} suspended Ammonium Lactate 12 % eCW1 ([facility]) ammonium lactate 120 MG/ML Topical Cream Ammonium Lact ate 12 % Ammonium Lactate 12 % 02/02/2020 12:00:00 AM EDT active 1 application eCW1 ([facility]) Cyanocobalamin 1000 MCG UNK 02/02/2020 12:00:00 AM EDT 1.0 { tablet} suspended Cyanocobalamin 1000 MCG eCW1 ([facility]) Cyanocobalamin 1000 MCG UNK 02/02/2020 12:00:00 AM EDT 1.0 { tablet} suspended Cyanocobalamin 1000 MCG eCW1 ([facility]) ammonium lactate 120 MG/ML Topical Cream Ammonium Lact ate 12 % Ammonium Lactate 12 % 02/02/2020 12:00:00 AM EDT 1.0 {application} active Ammonium Lactate 12 % eCW1 ([facility]) Glucosamine Chondr 500 Complex - Glucosamine Chondr 500 Comp macey - 02/02/2020 12:00:00 AM EDT 1.0 {capsule} suspended Glucosamine Chondr 500 Complex - eCW1 ([facility]) Cyanocobalamin 1000 MCG UNK 02/02/2020 12:00:00 AM EDT 1.0 { tablet} suspended Cyanocobalamin 1000 MCG eCW1 ([facility]) ammonium lactate 120 MG/ML Topical Cream Ammonium Lact ate 12 % Ammonium Lactate 12 % 02/02/2020 12:00:00 AM EDT 1.0 {application} active Ammonium Lactate 12 % eCW1 ([facility]) ammonium lactate 120 MG/ML Topical Cream Ammonium Lact ate 12 % Ammonium Lactate 12 % 02/02/2020 12:00:00 AM EDT 1.0 {application} suspended Ammonium Lactate 12 % eCW1 ([facility]) Cephalexin 500 MG Oral Capsule Cephalexin 500 MG 02/02/2020 12:00:0 0 AM EDT 1.0 {capsule} suspended Cephalexin 500 M G eCW1 ([facility]) Glucosamine Chondr 500 Complex - Glucosamine Chondr 500 Comp macey - 02/02/2020 12:00:00 AM EDT 1.0 {capsule} suspended Glucosamine Chondr 500 Complex - eCW1 ([facility]) Glucosamine Chondr 500 Complex - Glucosamine Chondr 500 Comp macey - 02/02/2020 12:00:00 AM EDT active 1 capsul e eCW1 ([facility]) Cephalexin 500 MG Oral Capsule Cephalexin 500 MG 02/02/2020 12:00:00 AM EDT active 1 capsule eCW1 ([facility]) ammonium lactate 120 MG/ML Topical Cream Ammonium Lact ate 12 % Ammonium Lactate 12 % 02/02/2020 12:00:00 AM EDT 1.0 {application} active Ammonium Lactate 12 % eCW1 ([facility]) ammonium lactate 120 MG/ML Topical Cream Ammonium Lact ate 12 % Ammonium Lactate 12 % 02/02/2020 12:00:00 AM EDT 1.0 {application} active Ammonium Lactate 12 % eCW1 ([facility]) Cephalexin 500 MG Oral Capsule Cephalexin 500 MG 02/02/2020 12:00:0 0 AM EDT 1.0 {capsule} suspended Cephalexin 500 M G eCW1 ([facility]) Cephalexin 500 MG Oral Capsule Cephalexin 500 MG 02/02/2020 12:00:00 AM EDT active 1 capsule eCW1 ([facility]) Cyanocobalamin 1000 MCG UNK 02/02/2020 12:00:00 AM EDT active 1 tablet eCW1 ([facility]) Cephalexin 500 MG Oral Capsule Cephalexin 500 MG 02/02/2020 12:00:0 0 AM EDT 1.0 {capsule} suspended Cephalexin 500 M G eCW1 ([facility]) Cyanocobalamin 1000 MCG UNK 02/02/2020 12:00:00 AM EDT 1.0 { tablet} suspended Cyanocobalamin 1000 MCG eCW1 ([facility]) Glucosamine Chondr 500 Complex - Glucosamine Chondr 500 Comp macey - 02/02/2020 12:00:00 AM EDT 1.0 {capsule} suspended Glucosamine Chondr 500 Complex - eCW1 ([facility]) Glucosamine Chondr 500 Complex - Glucosamine Chondr 500 Comp macey - 02/02/2020 12:00:00 AM EDT 1.0 {capsule} suspended Glucosamine Chondr 500 Complex - eCW1 ([facility]) Cephalexin 500 MG Oral Capsule Cephalexin 500 MG 02/02/2020 12:00:0 0 AM EDT 1.0 {capsule} suspended Cephalexin 500 M G eCW1 ([facility]) ammonium lactate 120 MG/ML Topical Cream Ammonium Lact ate 12 % Ammonium Lactate 12 % 02/02/2020 12:00:00 AM EDT 1.0 {application} active Ammonium Lactate 12 % eCW1 ([facility]) Cephalexin 500 MG Oral Capsule Cephalexin 500 MG 02/02/2020 12:00:0 0 AM EDT 1.0 {capsule} suspended Cephalexin 500 M G eCW1 ([facility]) Glucosamine Chondr 500 Complex - Glucosamine Chondr 500 Comp macey - 02/02/2020 12:00:00 AM EDT 1.0 {capsule} suspended Glucosamine Chondr 500 Complex - eCW1 ([facility]) Glucosamine Chondr 500 Complex - Glucosamine Chondr 500 Comp macey - 02/02/2020 12:00:00 AM EDT 1.0 {capsule} suspended Glucosamine Chondr 500 Complex - eCW1 ([facility]) Glucosamine Chondr 500 Complex - Glucosamine Chondr 500 Comp macey - 02/02/2020 12:00:00 AM EDT 1.0 {capsule} suspended Glucosamine Chondr 500 Complex - eCW1 ([facility]) Glucosamine Chondr 500 Complex - Glucosamine Chondr 500 Comp macey - 02/02/2020 12:00:00 AM EDT 1.0 {capsule} suspended Glucosamine Chondr 500 Complex - eCW1 ([facility]) Glucosamine Chondr 500 Complex - Glucosamine Chondr 500 Comp macey - 02/02/2020 12:00:00 AM EDT 1.0 {capsule} suspended Glucosamine Chondr 500 Complex - eCW1 ([facility]) ammonium lactate 120 MG/ML Topical Cream Ammonium Lact ate 12 % Ammonium Lactate 12 % 02/02/2020 12:00:00 AM EDT 1.0 {application} active Ammonium Lactate 12 % eCW1 ([facility]) Cephalexin 500 MG Oral Capsule Cephalexin 500 MG 02/02/2020 12:00:0 0 AM EDT 1.0 {capsule} suspended Cephalexin 500 M G eCW1 ([facility]) ammonium lactate 120 MG/ML Topical Cream Ammonium Lact ate 12 % Ammonium Lactate 12 % 02/02/2020 12:00:00 AM EDT active 1 application eCW1 ([facility]) ammonium lactate 120 MG/ML Topical Cream Ammonium Lact ate 12 % Ammonium Lactate 12 % 02/02/2020 12:00:00 AM EDT 1.0 {application} active Ammonium Lactate 12 % eCW1 ([facility]) Cyanocobalamin 1000 MCG UNK 02/02/2020 12:00:00 AM EDT 1.0 { tablet} suspended Cyanocobalamin 1000 MCG eCW1 ([facility]) Cyanocobalamin 1000 MCG UNK 02/02/2020 12:00:00 AM EDT 1.0 { tablet} suspended Cyanocobalamin 1000 MCG eCW1 ([facility]) ammonium lactate 120 MG/ML Topical Cream Ammonium Lact ate 12 % Ammonium Lactate 12 % 02/02/2020 12:00:00 AM EDT 1.0 {application} active Ammonium Lactate 12 % eCW1 ([facility]) Cephalexin 500 MG Oral Capsule Cephalexin 500 MG 02/02/2020 12:00:0 0 AM EDT 1.0 {capsule} suspended Cephalexin 500 M G eCW1 ([facility]) ammonium lactate 120 MG/ML Topical Cream Ammonium Lact ate 12 % Ammonium Lactate 12 % 02/02/2020 12:00:00 AM EDT 1.0 {application} active Ammonium Lactate 12 % eCW1 ([facility]) Cephalexin 500 MG Oral Capsule Cephalexin 500 MG 02/02/2020 12:00:0 0 AM EDT 1.0 {capsule} active Cephalexin 500 MG eCW1 ([facility]) Cyanocobalamin 1000 MCG UNK 02/02/2020 12:00:00 AM EDT 1.0 { tablet} suspended Cyanocobalamin 1000 MCG eCW1 ([facility]) ammonium lactate 120 MG/ML Topical Cream Ammonium Lact ate 12 % Ammonium Lactate 12 % 02/02/2020 12:00:00 AM EDT 1.0 {application} suspended Ammonium Lactate 12 % eCW1 ([facility]) Cyanocobalamin 1000 MCG UNK 02/02/2020 12:00:00 AM EDT 1.0 { tablet} suspended Cyanocobalamin 1000 MCG eCW1 ([facility]) Glucosamine Chondr 500 Complex - Glucosamine Chondr 500 Comp macey - 02/02/2020 12:00:00 AM EDT 1.0 {capsule} active Glucosamine Chondr 500 Complex - eCW1 ([facility]) Cyanocobalamin 1000 MCG UNK 02/02/2020 12:00:00 AM EDT 1.0 { tablet} suspended Cyanocobalamin 1000 MCG eCW1 ([facility]) Cephalexin 500 MG Oral Capsule Cephalexin 500 MG 02/02/2020 12:00:0 0 AM EDT 1.0 {capsule} suspended Cephalexin 500 M G eCW1 ([facility]) Cephalexin 500 MG Oral Capsule Cephalexin 500 MG 02/02/2020 12:00:0 0 AM EDT 1.0 {capsule} suspended Cephalexin 500 M G eCW1 ([facility]) ammonium lactate 120 MG/ML Topical Cream Ammonium Lact ate 12 % Ammonium Lactate 12 % 02/02/2020 12:00:00 AM EDT 1.0 {application} active Ammonium Lactate 12 % eCW1 ([facility]) Glucosamine Chondr 500 Complex - Glucosamine Chondr 500 Comp macey - 02/02/2020 12:00:00 AM EDT 1.0 {capsule} suspended Glucosamine Chondr 500 Complex - eCW1 ([facility]) Cyanocobalamin 1000 MCG UNK 02/02/2020 12:00:00 AM EDT 1.0 { tablet} suspended Cyanocobalamin 1000 MCG eCW1 ([facility]) Cephalexin 500 MG Oral Capsule Cephalexin 500 MG 02/02/2020 12:00:0 0 AM EDT 1.0 {capsule} suspended Cephalexin 500 M G eCW1 ([facility]) Cephalexin 500 MG Oral Capsule Cephalexin 500 MG 02/02/2020 12:00:0 0 AM EDT 1.0 {capsule} suspended Cephalexin 500 M G eCW1 ([facility]) Glucosamine Chondr 500 Complex - Glucosamine Chondr 500 Comp macey - 02/02/2020 12:00:00 AM EDT 1.0 {capsule} suspended Glucosamine Chondr 500 Complex - eCW1 ([facility]) Glucosamine Chondr 500 Complex - Glucosamine Chondr 500 Comp macey - 02/02/2020 12:00:00 AM EDT 1.0 {capsule} suspended Glucosamine Chondr 500 Complex - eCW1 ([facility]) Cyanocobalamin 1000 MCG UNK 02/02/2020 12:00:00 AM EDT 1.0 { tablet} suspended Cyanocobalamin 1000 MCG eCW1 ([facility]) Glucosamine Chondr 500 Complex - Glucosamine Chondr 500 Comp macey - 02/02/2020 12:00:00 AM EDT 1.0 {capsule} suspended Glucosamine Chondr 500 Complex - eCW1 ([facility]) ammonium lactate 120 MG/ML Topical Cream Ammonium Lact ate 12 % Ammonium Lactate 12 % 02/02/2020 12:00:00 AM EDT 1.0 {application} active Ammonium Lactate 12 % eCW1 ([facility]) Cephalexin 500 MG Oral Capsule Cephalexin 500 MG 02/02/2020 12:00:0 0 AM EDT 1.0 {capsule} suspended Cephalexin 500 M G eCW1 ([facility]) Cyanocobalamin 1000 MCG UNK 02/02/2020 12:00:00 AM EDT 1.0 { tablet} suspended Cyanocobalamin 1000 MCG eCW1 ([facility]) Cyanocobalamin 1000 MCG UNK 02/02/2020 12:00:00 AM EDT 1.0 { tablet} suspended Cyanocobalamin 1000 MCG eCW1 ([facility]) Cyanocobalamin 1000 MCG UNK 02/02/2020 12:00:00 AM EDT active 1 tablet eCW1 ([facility]) Glucosamine Chondr 500 Complex - Glucosamine Chondr 500 Comp macey - 02/02/2020 12:00:00 AM EDT 1.0 {capsule} suspended Glucosamine Chondr 500 Complex - eCW1 ([facility]) Cephalexin 500 MG Oral Capsule Cephalexin 500 MG 02/02/2020 12:00:0 0 AM EDT 1.0 {capsule} suspended Cephalexin 500 M G eCW1 ([facility] [facility]) Cyanocobalamin 1000 MCG UNK 02/02/2020 12:00:00 AM EDT 1.0 { tablet} suspended Cyanocobalamin 1000 MCG eCW1 ([facility]) Cyanocobalamin 1000 MCG UNK 02/02/2020 12:00:00 AM EDT 1.0 { tablet} suspended Cyanocobalamin 1000 MCG eCW1 ([facility]) ammonium lactate 120 MG/ML Topical Cream Ammonium Lact ate 12 % Ammonium Lactate 12 % 02/02/2020 12:00:00 AM EDT 1.0 {application} suspended Ammonium Lactate 12 % eCW1 ([facility]) Glucosamine Chondr 500 Complex - Glucosamine Chondr 500 Comp macey - 02/02/2020 12:00:00 AM EDT 1.0 {capsule} suspended Glucosamine Chondr 500 Complex - eCW1 ([facility]) ammonium lactate 120 MG/ML Topical Cream Ammonium Lact ate 12 % Ammonium Lactate 12 % 02/02/2020 12:00:00 AM EDT 1.0 {application} active Ammonium Lactate 12 % eCW1 ([facility]) Cyanocobalamin 1000 MCG UNK 02/02/2020 12:00:00 AM EDT 1.0 { tablet} suspended Cyanocobalamin 1000 MCG eCW1 ([facility]) Cephalexin 500 MG Oral Capsule Cephalexin 500 MG 02/02/2020 12:00:0 0 AM EDT 1.0 {capsule} suspended Cephalexin 500 M G eCW1 ([facility]) Cyanocobalamin 1000 MCG UNK 02/02/2020 12:00:00 AM EDT 1.0 { tablet} suspended Cyanocobalamin 1000 MCG eCW1 ([facility]) ammonium lactate 120 MG/ML Topical Cream Ammonium Lact ate 12 % Ammonium Lactate 12 % 02/02/2020 12:00:00 AM EDT 1.0 {application} active Ammonium Lactate 12 % eCW1 ([facility]) ammonium lactate 120 MG/ML Topical Cream Ammonium Lact ate 12 % Ammonium Lactate 12 % 02/02/2020 12:00:00 AM EDT 1.0 {application} active Ammonium Lactate 12 % eCW1 ([facility]) 600 mg 01/15/2020 12:00:00 AM EDT tablet 28 TAKE ONE TABLET BY MOUTH TWICE A DAY TAKE ONE TABLET BY MOUTH TWICE A DAY SOLD: 01/15/2020 [facility] 40 mg 01/09/2020 12:00:00 AM EDT capsule,delayed release (DR/EC) 90 TAKE ONE CAPSULE BY MOUTH EVERY MORNING TAKE ONE CAPSULE BY MOUTH EVERY MORNING SOLD: 04/24/2020 [facility] 40 mg 01/09/2020 12:00:00 AM EDT capsule,delayed release (DR/EC) 90 TAKE ONE CAPSULE BY MOUTH EVERY MORNING TAKE ONE CAPSULE BY MOUTH EVERY MORNING SOLD: 01/10/2020 [facility] Esomeprazole 40 MG Delayed Release Oral Capsule ESOMEPRAZOLE MAGNESIUM 01/09/2020 12:00:00 AM EDT capsule,delayed release(DR/EC) 90 TAKE ONE CAPSULE BY MOUTH EVERY MORNING TAKE ONE CAPSULE BY MOUTH EVERY MORNING SOLD: 11/04/2020 [facility] 20 mg 01/02/2020 12:00:00 AM EDT tablet 90 TAKE ONE TABLET BY MOUTH EVERY DAY TAKE ONE TABLET BY MOUTH EVERY DAY SOLD: 04/24/2020 [facility] 20 mg 01/02/2020 12:00:00 AM EDT tablet 90 TAKE ONE TABLET BY MOUTH EVERY DAY TAKE ONE TABLET BY MOUTH EVERY DAY SOLD: 01/04/2020 [facility] ammonium lactate 120 MG/ML Topical Cream Ammonium Lactate 12/23/2019 12:00:00 AM EST active [facility] ([facility] 12 % 12/23/2019 12:00:00 AM EST cream 140 APPLY TO FEET DAILY APPLY TO FEET DAILY SOLD: 12/24/2019 [facility] 12 % 12/23/2019 12:00:00 AM EST cream 140 APPLY TO FEET DAILY APPLY TO FEET DAILY SOLD: 03/10/2020 [facility] 300 mg 11/29/2019 12:00:00 AM EST tablet extended release 24 hr 30 TAKE ONE TABLET BY MOUTH EVERY MORNING TAKE ONE TABLET BY MOUTH EVERY MORNING SOLD: 01/09/2020 [facility] 300 mg 11/29/2019 12:00:00 AM EST tablet extended release 24 hr 30 TAKE ONE TABLET BY MOUTH EVERY MORNING TAKE ONE TABLET BY MOUTH EVERY MORNING SOLD: 12/01/2019 [facility] 300 mg 11/29/2019 12:00:00 AM EST tablet extended release 24 hr 30 TAKE ONE TABLET BY MOUTH EVERY MORNING TAKE ONE TABLET BY MOUTH EVERY MORNING SOLD: 02/21/2020 [facility] 500 mg 11/26/2019 12:00:00 AM EST capsule 8 TAKE FOUR CAPSULES BY MOUTH 1 HOUR PRIOR TO DENTAL PROCEDURE TAKE FOUR CAPSULES BY MOUTH 1 HOUR PRIOR TO DENTAL PROCEDURE SOLD: 12/01/2019 [facility] ciclopirox 7.7 MG/ML Topical Cream Ciclopirox Olamine 11/13 12:00:00 AM EST active [facility] ([facility]) 0.77 % 11/12/2019 12:00:00 AM EST cream 90 APPLY TOPICALLY THREE TIMES A DAY APPLY TOPICALLY THREE TIMES A DAY SOLD: 03/10/2020 [facility] ciclopirox 7.7 MG/ML Topical Cream [Loprox] Loprox 0.77 % Lo prox 0.77 % 11/12/2019 12:00:00 AM EST 1.0 {application} higinio pended Loprox 0.77 % eCW1 ([facility]) ciclopirox 7.7 MG/ML Topical Cream [Loprox] Loprox 0.77 % Lo prox 0.77 % 11/12/2019 12:00:00 AM EST 1.0 {application} higinio pended Loprox 0.77 % eCW1 ([facility]) ciclopirox 7.7 MG/ML Topical Cream [Loprox] Loprox 0.77 % Lo prox 0.77 % 11/12/2019 12:00:00 AM EST 1.0 {application} higinio pended Loprox 0.77 % eCW1 ([facility]) ciclopirox 7.7 MG/ML Topical Cream [Loprox] Loprox 0.77 % Lo prox 0.77 % 11/12/2019 12:00:00 AM EST 1.0 {application} higinio pended Loprox 0.77 % eCW1 ([facility]) 0.77 % 11/12/2019 12:00:00 AM EST cream 90 APPLY TOPICALLY THREE TIMES A DAY APPLY TOPICALLY THREE TIMES A DAY SOLD: 11/13/2019 [facility] ciclopirox 7.7 MG/ML Topical Cream [Loprox] Loprox 0.77 % Lo prox 0.77 % 11/12/2019 12:00:00 AM EST 1.0 {application} higinio pended Loprox 0.77 % eCW1 ([facility]) ciclopirox 7.7 MG/ML Topical Cream [Loprox] Loprox 0.77 % Lo prox 0.77 % 11/12/2019 12:00:00 AM EST 1.0 {application} higinio pended Loprox 0.77 % eCW1 ([facility]) ciclopirox 7.7 MG/ML Topical Cream [Loprox] Loprox 0.77 % Lo prox 0.77 % 11/12/2019 12:00:00 AM EST 1.0 {application} active Loprox 0.77 % eCW1 ([facility]) ciclopirox 7.7 MG/ML Topical Cream [Loprox] Loprox 0.77 % Lo prox 0.77 % 11/12/2019 12:00:00 AM EST 1.0 {application} higinio pended Loprox 0.77 % eCW1 ([facility]) ciclopirox 7.7 MG/ML Topical Cream [Loprox] Loprox 0.77 % Lo prox 0.77 % 11/12/2019 12:00:00 AM EST 1.0 {application} higinio pended Loprox 0.77 % eCW1 ([facility]) ciclopirox 7.7 MG/ML Topical Cream [Loprox] Loprox 0.77 % Lo prox 0.77 % 11/12/2019 12:00:00 AM EST 1.0 {application} higinio pended Loprox 0.77 % eCW1 ([facility]) ciclopirox 7.7 MG/ML Topical Cream [Loprox] Loprox 0.77 % Lo prox 0.77 % 11/12/2019 12:00:00 AM EST 1.0 {application} higinio pended Loprox 0.77 % eCW1 ([facility]) ciclopirox 7.7 MG/ML Topical Cream [Loprox] Loprox 0.77 % Lo prox 0.77 % 11/12/2019 12:00:00 AM EST 1.0 {application} higinio pended Loprox 0.77 % eCW1 ([facility]) ciclopirox 7.7 MG/ML Topical Cream [Loprox] Loprox 0.77 % Lo prox 0.77 % 11/12/2019 12:00:00 AM EST 1.0 {application} higinio pended Loprox 0.77 % eCW1 ([facility]) ciclopirox 7.7 MG/ML Topical Cream [Loprox] Loprox 0.77 % Lo prox 0.77 % 11/12/2019 12:00:00 AM EST 1.0 {application} higinio pended Loprox 0.77 % eCW1 ([facility]) 0.77 % 11/12/2019 12:00:00 AM EST cream 90 APPLY TOPICALLY THREE TIMES A DAY APPLY TOPICALLY THREE TIMES A DAY SOLD: 01/04/2020 [facility] ciclopirox 7.7 MG/ML Topical Cream [Loprox] Loprox 0.77 % Lo prox 0.77 % 11/12/2019 12:00:00 AM EST 1.0 {application} higinio pended Loprox 0.77 % eCW1 ([facility]) ciclopirox 7.7 MG/ML Topical Cream [Loprox] Loprox 0.77 % Lo prox 0.77 % 11/12/2019 12:00:00 AM EST 1.0 {application} higinio pended Loprox 0.77 % eCW1 ([facility]) ciclopirox 7.7 MG/ML Topical Cream [Loprox] Loprox 0.77 % Lo prox 0.77 % 11/12/2019 12:00:00 AM EST 1.0 {application} higinio pended Loprox 0.77 % eCW1 ([facility]) ciclopirox 7.7 MG/ML Topical Cream [Loprox] Loprox 0.77 % Lo prox 0.77 % 11/12/2019 12:00:00 AM EST 1.0 {application} higinio pended Loprox 0.77 % eCW1 ([facility]) ciclopirox 7.7 MG/ML Topical Cream [Loprox] Loprox 0.77 % Lo prox 0.77 % 11/12/2019 12:00:00 AM EST 1.0 {application} higinio pended Loprox 0.77 % eCW1 ([facility]) ciclopirox 7.7 MG/ML Topical Cream [Loprox] Loprox 0.77 % Lo prox 0.77 % 11/12/2019 12:00:00 AM EST 1.0 {application} higinio pended Loprox 0.77 % eCW1 ([facility]) ciclopirox 7.7 MG/ML Topical Cream [Loprox] Loprox 0.77 % Lo prox 0.77 % 11/12/2019 12:00:00 AM EST 1.0 {application} higinio pended Loprox 0.77 % eCW1 ([facility]) ciclopirox 7.7 MG/ML Topical Cream [Loprox] Loprox 0.77 % Lo prox 0.77 % 11/12/2019 12:00:00 AM EST 1.0 {application} active Loprox 0.77 % eCW1 ([facility]) ciclopirox 7.7 MG/ML Topical Cream [Loprox] Loprox 0.77 % Lo prox 0.77 % 11/12/2019 12:00:00 AM EST active 1 application eCW1 ([facility]) ciclopirox 7.7 MG/ML Topical Cream [Loprox] Loprox 0.77 % Lo prox 0.77 % 11/12/2019 12:00:00 AM EST active 1 application eCW1 ([facility]) ciclopirox 7.7 MG/ML Topical Cream [Loprox] Loprox 0.77 % Lo prox 0.77 % 11/12/2019 12:00:00 AM EST 1.0 {application} higinio pended Loprox 0.77 % eCW1 ([facility]) ciclopirox 7.7 MG/ML Topical Cream [Loprox] Loprox 0.77 % Lo prox 0.77 % 11/12/2019 12:00:00 AM EST 1.0 {application} higinio pended Loprox 0.77 % eCW1 ([facility]) ciclopirox 7.7 MG/ML Topical Cream [Loprox] Loprox 0.77 % Lo prox 0.77 % 11/12/2019 12:00:00 AM EST 1.0 {application} higinio pended Loprox 0.77 % eCW1 ([facility]) 325 mg (65 mg iron) 11/06/2019 12:00:00 AM EST tablet 60 TAKE ONE TABLET BY MOUTH TWICE A DAY TAKE ONE TABLET BY MOUTH TWICE A DAY SOLD: 11/12/2019 [facility] ferrous sulfate 325 MG Oral Tablet Ferrous Sulfate 325 (65 Fe) MG Ferrous Sulfate 325 (65 Fe) MG 11/06/2019 12:00:00 AM EST 1.0 {tablet} suspended Ferrous Sulfate 325 (65 Fe) MG e CW1 ([facility]) ferrous sulfate 325 MG Oral Tablet Ferrous Sulfate 325 (65 Fe) MG Ferrous Sulfate 325 (65 Fe) MG 11/06/2019 12:00:00 AM EST 1.0 {tablet} suspended Ferrous Sulfate 325 (65 Fe) MG e CW1 ([facility]) ferrous sulfate 325 MG Oral Tablet Ferrous Sulfate 325 (65 Fe) MG Ferrous Sulfate 325 (65 Fe) MG 11/06/2019 12:00:00 AM EST 1.0 {tablet} suspended Ferrous Sulfate 325 (65 Fe) MG e 1 ([facility]) ferrous sulfate 325 MG Oral Tablet Ferrous Sulfate 325 (65 Fe) MG Ferrous Sulfate 325 (65 Fe) MG 11/06/2019 12:00:00 AM EST 1.0 {tablet} suspended Ferrous Sulfate 325 (65 Fe) MG e CW1 ([facility]) ferrous sulfate 325 MG Oral Tablet Ferrous Sulfate 325 (65 Fe) MG Ferrous Sulfate 325 (65 Fe) MG 11/06/2019 12:00:00 AM EST 1.0 {tablet} suspended Ferrous Sulfate 325 (65 Fe) MG e CW1 ([facility]) ferrous sulfate 325 MG Oral Tablet Ferrous Sulfate 325 (65 Fe) MG Ferrous Sulfate 325 (65 Fe) MG 11/06/2019 12:00:00 AM EST 1.0 {tablet} suspended Ferrous Sulfate 325 (65 Fe) MG e CW1 ([facility]) ferrous sulfate 325 MG Oral Tablet Ferrous Sulfate 325 (65 Fe) MG Ferrous Sulfate 325 (65 Fe) MG 11/06/2019 12:00:00 AM EST 1.0 {tablet} active Ferrous Sulfate 325 (65 Fe) MG eCW1 ([facility]) ferrous sulfate 325 MG Oral Tablet Ferrous Sulfate 325 (65 Fe) MG Ferrous Sulfate 325 (65 Fe) MG 11/06/2019 12:00:00 AM EST 1.0 {tablet} active Ferrous Sulfate 325 (65 Fe) MG eCW1 ([facility]) ferrous sulfate 325 MG Oral Tablet Ferrous Sulfate 325 (65 Fe) MG Ferrous Sulfate 325 (65 Fe) MG 11/06/2019 12:00:00 AM EST 1.0 {tablet} suspended Ferrous Sulfate 325 (65 Fe) MG e 1 ([facility]) ferrous sulfate 325 MG Oral Tablet Ferrous Sulfate 325 (65 Fe) MG Ferrous Sulfate 325 (65 Fe) MG 11/06/2019 12:00:00 AM EST 1.0 {tablet} suspended Ferrous Sulfate 325 (65 Fe) MG e 1 ([facility]) ferrous sulfate 325 MG Oral Tablet Ferrous Sulfate 325 (65 Fe) MG Ferrous Sulfate 325 (65 Fe) MG 11/06/2019 12:00:00 AM EST 1.0 {tablet} suspended Ferrous Sulfate 325 (65 Fe) MG e 1 ([facility]) ferrous sulfate 325 MG Oral Tablet Ferrous Sulfate 325 (65 Fe) MG Ferrous Sulfate 325 (65 Fe) MG 11/06/2019 12:00:00 AM EST 1.0 {tablet} suspended Ferrous Sulfate 325 (65 Fe) MG e 1 ([facility]) ferrous sulfate 325 MG Oral Tablet Ferrous Sulfate 325 (65 Fe) MG Ferrous Sulfate 325 (65 Fe) MG 11/06/2019 12:00:00 AM EST 1.0 {tablet} suspended Ferrous Sulfate 325 (65 Fe) MG e 1 ([facility]) ferrous sulfate 325 MG Oral Tablet Ferrous Sulfate 325 (65 Fe) MG Ferrous Sulfate 325 (65 Fe) MG 11/06/2019 12:00:00 AM EST 1.0 {tablet} suspended Ferrous Sulfate 325 (65 Fe) MG e 1 ([facility]) ferrous sulfate 325 MG Oral Tablet Ferrous Sulfate 325 (65 Fe) MG Ferrous Sulfate 325 (65 Fe) MG 11/06/2019 12:00:00 AM EST 1.0 {tablet} suspended Ferrous Sulfate 325 (65 Fe) MG e 1 ([facility]) ferrous sulfate 325 MG Oral Tablet Ferrous Sulfate 325 (65 Fe) MG Ferrous Sulfate 325 (65 Fe) MG 11/06/2019 12:00:00 AM EST 1.0 {tablet} suspended Ferrous Sulfate 325 (65 Fe) MG e 1 ([facility]) ferrous sulfate 325 MG Oral Tablet Ferrous Sulfate 325 (65 Fe) MG Ferrous Sulfate 325 (65 Fe) MG 11/06/2019 12:00:00 AM EST 1.0 {tablet} suspended Ferrous Sulfate 325 (65 Fe) MG e CW1 ([facility]) ferrous sulfate 325 MG Oral Tablet Ferrous Sulfate 325 (65 Fe) MG Ferrous Sulfate 325 (65 Fe) MG 11/06/2019 12:00:00 AM EST active 1 tablet eCW1 ([facility]) ferrous sulfate 325 MG Oral Tablet Ferrous Sulfate 325 (65 Fe) MG Ferrous Sulfate 325 (65 Fe) MG 11/06/2019 12:00:00 AM EST 1.0 {tablet} suspended Ferrous Sulfate 325 (65 Fe) MG e CW1 ([facility]) ferrous sulfate 325 MG Oral Tablet Ferrous Sulfate 325 (65 Fe) MG Ferrous Sulfate 325 (65 Fe) MG 11/06/2019 12:00:00 AM EST 1.0 {tablet} suspended Ferrous Sulfate 325 (65 Fe) MG e 1 ([facility]) ferrous sulfate 325 MG Oral Tablet Ferrous Sulfate 325 (65 Fe) MG Ferrous Sulfate 325 (65 Fe) MG 11/06/2019 12:00:00 AM EST 1.0 {tablet} suspended Ferrous Sulfate 325 (65 Fe) MG e 1 ([facility]) ferrous sulfate 325 MG Oral Tablet Ferrous Sulfate 325 (65 Fe) MG Ferrous Sulfate 325 (65 Fe) MG 11/06/2019 12:00:00 AM EST 1.0 {tablet} suspended Ferrous Sulfate 325 (65 Fe) MG e 1 ([facility]) ferrous sulfate 325 MG Oral Tablet Ferrous Sulfate 325 (65 Fe) MG Ferrous Sulfate 325 (65 Fe) MG 11/06/2019 12:00:00 AM EST 1.0 {tablet} suspended Ferrous Sulfate 325 (65 Fe) MG e CW1 ([facility]) ferrous sulfate 325 MG Oral Tablet Ferrous Sulfate 325 (65 Fe) MG Ferrous Sulfate 325 (65 Fe) MG 11/06/2019 12:00:00 AM EST active 1 tablet eCW1 ([facility]) ferrous sulfate 325 MG Oral Tablet Ferrous Sulfate 325 (65 Fe) MG Ferrous Sulfate 325 (65 Fe) MG 11/06/2019 12:00:00 AM EST 1.0 {tablet} suspended Ferrous Sulfate 325 (65 Fe) MG e CW1 ([facility]) ferrous sulfate 325 MG Oral Tablet Ferrous Sulfate 325 (65 Fe) MG Ferrous Sulfate 325 (65 Fe) MG 11/06/2019 12:00:00 AM EST 1.0 {tablet} suspended Ferrous Sulfate 325 (65 Fe) MG e CW1 ([facility]) ferrous sulfate 325 MG Oral Tablet Ferrous Sulfate 325 (65 Fe) MG Ferrous Sulfate 325 (65 Fe) MG 11/06/2019 12:00:00 AM EST 1.0 {tablet} suspended Ferrous Sulfate 325 (65 Fe) MG e 1 ([facility]) ferrous sulfate 325 MG Oral Tablet Ferrous Sulfate 325 (65 Fe) MG Ferrous Sulfate 325 (65 Fe) MG 11/06/2019 12:00:00 AM EST active 1 tablet eCW1 ([facility]) 20 mg 10/27/2019 12:00:00 AM EST capsule 30 TAKE ONE CAPSULE BY MOUTH EVERY MORNING TAKE ONE CAPSULE BY MOUTH EVERY MORNING SOLD: 01/04/2020 [facility] 20 mg 10/27/2019 12:00:00 AM EST capsule 30 TAKE ONE CAPSULE BY MOUTH EVERY MORNING TAKE ONE CAPSULE BY MOUTH EVERY MORNING SOLD: 10/28/2019 [facility] 20 mg 10/27/2019 12:00:00 AM EST capsule 30 TAKE ONE CAPSULE BY MOUTH EVERY MORNING TAKE ONE CAPSULE BY MOUTH EVERY MORNING SOLD: 12/01/2019 [facility] 600 mg 10/10/2019 12:00:00 AM EST tablet 14 TAKE ONE TABLET BY MOUTH TWICE A DAY TAKE ONE TABLET BY MOUTH TWICE A DAY SOLD: 10/11/2019 [facility] 8 HR Acetaminophen 650 MG Extended Release Oral Tablet [Tyle nol] Tylenol 8 Hour 10/07/2019 12:00:00 AM EST active [facility]ENT ([facility]) No Active Medications 10/07/2019 12:00:00 AM EST completed MEDENT ([facility]) 100 unit/mL 10/01/2019 12:00:00 AM EST solution 30 USE DIRECTED PER SLIDING SCALE MAXIMUM DAILY DOSE = 30 UNITS USE DIRECTED PER SLIDING SCALE MAXIMUM DAILY DOSE = 30 UNITS SOLD: 10/06/2019 [facility] 100 unit/mL 10/01/2019 12:00:00 AM EST solution 30 USE DIRECTED PER SLIDING SCALE MAXIMUM DAILY DOSE = 30 UNITS USE DIRECTED PER SLIDING SCALE MAXIMUM DAILY DOSE = 30 UNITS SOLD: 04/15/2020 [facility] 40 mg 10/01/2019 12:00:00 AM EST tablet 90 TAKE 1 TABLET BY MOUTH DAILY TAKE 1 TABLET BY MOUTH DAILY SOLD: 10/01/2019 [facility] 40 mg 10/01/2019 12:00:00 AM EST tablet 90 TAKE 1 TABLET BY MOUTH DAILY TAKE 1 TABLET BY MOUTH DAILY SOLD: 12/17/2019 [facility] 0.6 mg 10/01/2019 12:00:00 AM EST tablet 10 TAKE 2 TABLETS BY MOUTH FOR THE FIRST DOSE THAN 1 TABLET BY MOUTH ONE HOUR AFTER THAT THEN 1 TABLET BY MOUTH DAILY TAKE 2 TABLETS BY MOUTH FOR THE FIRST DO SE THAN 1 TABLET BY MOUTH ONE HOUR AFTER THAT THEN 1 TABLET BY MOUTH DAILY SOLD: 10/06/2019 [facility] 0.6 mg 10/01/2019 12:00:00 AM EST tablet 10 TAKE 2 TABLETS BY MOUTH FOR THE FIRST DOSE THAN 1 TABLET BY MOUTH ONE HOUR AFTER THAT THEN 1 TABLET BY MOUTH DAILY TAKE 2 TABLETS BY MOUTH FOR THE FIRST DO SE THAN 1 TABLET BY MOUTH ONE HOUR AFTER THAT THEN 1 TABLET BY MOUTH DAILY SOLD: 12/17/2019 [facility] linezolid 600 MG Oral Tablet Linezolid 09/26/2019 12:00:00 AM EST ORAL active [facility] ([facility] 600 mg 09/26/2019 12:00:00 AM EST tablet 14 TAKE ONE TABLET BY MOUTH TWICE A DAY FOR 7 DAYS TAKE ONE TABLET BY MOUTH TWICE A DAY FOR 7 DAYS SOLD: 09/28/2019 [facility] 100 unit/mL (3 mL) 09/09/2019 12:00:00 AM EST insulin pen 30 INJECT 32 UNITS UNDER THE SKIN ONCE A DAY INJECT 32 UNITS UNDER THE SKIN ONCE A DAY SOLD: 09/14/2019 [facility] 300 mg 08/26/2019 12:00:00 AM EST tablet extended release 24 hr 30 TAKE 1 TABLET BY MOUTH EVERY MORNING TAKE 1 TABLET BY MOUTH EVERY MORNING SOLD: 09/20/2019 [facility] 300 mg 08/26/2019 12:00:00 AM EST tablet extended release 24 hr 30 TAKE 1 TABLET BY MOUTH EVERY MORNING TAKE 1 TABLET BY MOUTH EVERY MORNING SOLD: 10/28/2019 [facility] 20 mg 08/25/2019 12:00:00 AM EST capsule 30 TAKE 1 CAPSULE BY MOUTH EVERY MORNING TAKE 1 CAPSULE BY MOUTH EVERY MORNING SOLD: 09/20/2019 [facility] BLOOD SUGAR DIAGNOSTIC 08/05/2019 12:00:00 AM EDT strip 100 TEST FOUR TIMES A DAY NEEDED TEST FOUR TIMES A DAY NEEDED SOLD: 12/25/2019 [facility] 20 mg 06/20/2019 12:00:00 AM EDT tablet 30 TAKE ONE TABLET BY MOUTH EVERY DAY TAKE ONE TABLET BY MOUTH EVERY DAY SOLD: 10/28/2019 [facility] 20 mg 06/20/2019 12:00:00 AM EDT tablet 30 TAKE ONE TABLET BY MOUTH EVERY DAY TAKE ONE TABLET BY MOUTH EVERY DAY SOLD: 10/01/2019 [facility] 20 mg 06/20/2019 12:00:00 AM EDT tablet 30 TAKE ONE TABLET BY MOUTH EVERY DAY TAKE ONE TABLET BY MOUTH EVERY DAY SOLD: 12/01/2019 [facility] 80-4.5 mcg/actuation 06/07/2019 12:00:00 AM EDT HFA aerosol inhaler 10 INHALE TWO PUFFS BY MOUTH TWICE A DAY INHALE TWO PUFFS BY MOUTH TWICE A DAY SOLD: 12/01/2019 [facility] 80-4.5 mcg/actuation 06/07/2019 12:00:00 AM EDT HFA aerosol inhaler 10 INHALE TWO PUFFS BY MOUTH TWICE A DAY INHALE TWO PUFFS BY MOUTH TWICE A DAY SOLD: 02/28/2020 [facility] 80-4.5 mcg/actuation 06/07/2019 12:00:00 AM EDT HFA aerosol inhaler 10 INHALE TWO PUFFS BY MOUTH TWICE A DAY INHALE TWO PUFFS BY MOUTH TWICE A DAY SOLD: 06/03/2020 [facility] 400 mg (241.3 mg magnesium) 05/30/2019 12:00:00 AM EDT table t 120 TAKE ONE TABLET BY MOUTH THREE TIMES A DAY TAKE ONE TABLET BY MOUTH THREE TIMES A DAY SOLD: 11/04/2019 [facility] 400 mg (241.3 mg magnesium) 05/30/2019 12:00:00 AM EDT table t 120 TAKE ONE TABLET BY MOUTH THREE TIMES A DAY TAKE ONE TABLET BY MOUTH THREE TIMES A DAY SOLD: 12/25/2019 [facility] 400 mg (241.3 mg magnesium) 05/30/2019 12:00:00 AM EDT table t 120 TAKE ONE TABLET BY MOUTH THREE TIMES A DAY TAKE ONE TABLET BY MOUTH THREE TIMES A DAY SOLD: 09/14/2019 [facility] 400 mg (241.3 mg magnesium) 05/30/2019 12:00:00 AM EDT table t 120 TAKE ONE TABLET BY MOUTH THREE TIMES A DAY TAKE ONE TABLET BY MOUTH THREE TIMES A DAY SOLD: 02/21/2020 [facility] 100 mg 05/23/2019 12:00:00 AM EDT tablet 45 TAKE ONE TABLET BY MOUTH EVERY OTHER DAY TAKE ONE TABLET BY MOUTH EVERY OTHER DAY SOLD: 11/19/2019 [facility] 50 mg 03/21/2019 12:00:00 AM EDT tablet extended release 24 hr 60 TAKE ONE TABLET BY MOUTH TWICE A DAY TAKE ONE TABLET BY MOUTH TWICE A DAY SOLD: 10/28/2019 [facility] 50 mg 03/21/2019 12:00:00 AM EDT tablet extended release 24 hr 60 TAKE ONE TABLET BY MOUTH TWICE A DAY TAKE ONE TABLET BY MOUTH TWICE A DAY SOLD: 02/21/2020 [facility] 50 mg 03/21/2019 12:00:00 AM EDT tablet extended release 24 hr 60 TAKE ONE TABLET BY MOUTH TWICE A DAY TAKE ONE TABLET BY MOUTH TWICE A DAY SOLD: 01/09/2020 [facility] 50 mg 03/21/2019 12:00:00 AM EDT tablet extended release 24 hr 60 TAKE ONE TABLET BY MOUTH TWICE A DAY TAKE ONE TABLET BY MOUTH TWICE A DAY SOLD: 12/01/2019 [facility] 150 mg 02/18/2019 12:00:00 AM EDT capsule 60 TAKE ONE CAPSULE BY MOUTH TWICE A DAY TAKE ONE CAPSULE BY MOUTH TWICE A DAY SOLD: 01/09/2020 [facility] 150 mg 02/18/2019 12:00:00 AM EDT capsule 60 TAKE ONE CAPSULE BY MOUTH TWICE A DAY TAKE ONE CAPSULE BY MOUTH TWICE A DAY SOLD: 10/28/2019 [facility] 150 mg 02/18/2019 12:00:00 AM EDT capsule 60 TAKE ONE CAPSULE BY MOUTH TWICE A DAY TAKE ONE CAPSULE BY MOUTH TWICE A DAY SOLD: 12/01/2019 [facility] 150 mg 02/18/2019 12:00:00 AM EDT capsule 60 TAKE ONE CAPSULE BY MOUTH TWICE A DAY TAKE ONE CAPSULE BY MOUTH TWICE A DAY SOLD: 02/15/2020 [facility] 40 mg 01/08/2019 12:00:00 AM EDT capsule,delayed release (DR/EC) 90 TAKE ONE CAPSULE BY MOUTH EVERY MORNING TAKE ONE CAPSULE BY MOUTH EVERY MORNING SOLD: 10/01/2019 [facility] 20 mg 11/26/2018 12:00:00 AM EST tablet 90 TAKE ONE TABLET BY MOUTH EVERY DAY TAKE ONE TABLET BY MOUTH EVERY DAY SOLD: 10/28/2019 [facility] Insurance Providers Payer name Policy type / Coverage type Policy ID Covered constitution party ID Covered constitution party's relationship to veloz Policy Veloz Plan Information MEDICARE [id number] SP [id number] [facility] [id number] SP [id number] [facility] [id number] SP [id number] [facility] [id number] SP [id number] [facility] OPTIONS [id number] SP [id number] UMR O [id number] S [id number] MEDICARE C [id number] S [id number] MEDICARE PART A -O/P [id number] 18 [id number] [facility] -O/P [id number] 18 [id number] [facility] (pr) Medigap Part B [id number] Self [id number] [place] [id number] Self [id number] [place] (pr) Medigap Part B [id number] Self [id number] Medicare Dme Medigap Part B [id number] Self [id number] Medicare Medicare Primary [id number] Self [id number] Umr Commercial [id number] Self [id number] [facility] (pr) Medigap Part B [id number] Self [id number] [place] [id number] Self [id number] ANSI-Commercial [id number] ANSI-Medicare Part B [id number] Medicare Dme Medigap Part B [id number] Self [id number] Medicare Medicare Primary [id number] Self [id number] [facility] (pr) Medigap Part B [id number] Self [id number] [place] [id number] Self [id number] ANSI-Commercial [id number] ANSI-Medicare Part B [id number] [place] [id number] Self [id number] Umr (pr) Medigap Part B [id number] Self [id number] [place] (pr) Medigap Part B [id number] Self [id number] Medicare Dme Medigap Part B [id number] Self [id number] Medicare Medicare Primary [id number] Self [id number] Umr (pr) Medigap Part B [id number] Self [id number] [place] Primary [id number] Self [id number] [place] Primary [id number] Self [id number] Medicare Medigap Part B [id number] Self [id number] Medicare Dme Medicare Primary [id number] Self [id number] Medicare Dme Medigap Part B [id number] Self [id number] Medicare Medicare Primary [id number] Self [id number] [place] Medigap Part B [id number] Self [id number] ANSI-Medicare Part B [id number] ANSI-Commercial [id number] Medicare Dme Medigap Part B [id number] Self [id number] Medicare Medicare Primary [id number] Self [id number] [facility] [id number] SP [id number] MEDICARE [id number] A ANSI-Medicare Part B [id number] ANSI-Commercial [id number] ANSI-Commercial [id number] ANSI-Medicare Part B [id number] [facility]) Medigap Part B [id number] Self [id number] 7646 [place] [id number] Self [id number] Medicare Dme Medigap Part B [id number] Self [id number] Medicare Medicare Primary [id number] Self [id number] ANSI-Medicare Part B [id number] ANSI-Commercial [id number] Medicare Dme Medigap Part B [id number] Self [id number] Medicare Medicare Primary [id number] Self [id number] Medicare Dme Medigap Part B [id number] Self [id number] Medicare Medicare Primary [id number] Self [id number] Medicare Dme Medigap Part B [id number] Self [id number] Medicare Medicare Primary [id number] Self 9 [id number] Medicare Dme Medigap Part B [id number] Self [id number] Medicare Medicare Primary [id number] Self [id number] R [facility] [id number] SP [id number] MEDICARE [id number] SP [id number] MEDICARE [id number] SP [id number] Medigap Part B [id number] Self [id number] [place] Medigap Part B [id number] Self [id number] [place] Primary [id number] Self [id number] Medicare Dme Medigap Part B [id number] Self [id number] Medicare Medicare Primary [id number] Self [id number] Medicare Dme Medigap Part B [id number] Self [id number] Medicare Medicare Primary [id number] Self [id number] ANSI-Medicare Part B [id number] ANSI-Commercial [id number] Medicare Dme Medigap Part B [id number] Self [id number] Medicare Medicare Primary [id number] Self 9 [id number] MEDICARE [id number] SP [id number] Medicare Dme Medigap Part B [id number] Self [id number] Medicare Medicare Primary [id number] Self 9 [id number] ANSI-Medicare Part B [id number] ANSI-Commercial [id number] [employer] [facility] Ppo Medigap Part B [id number] Self [id number] Umr Medigap Part B [id number] Self [id number] Medicare (Part B) Medicare Primary [id number] Self [id number] [employer] [facility] Medigap Part B [id number] Self [id number] [employer] [facility] Ppo Medigap Part B [id number] Self [id number] Umr Medigap Part B [id number] Self [id number] Medicare (Part B) Medicare Primary [id number] Self [id number] ANSI-Medicare Part B [id number] ANSI-Commercial [id number] Medicare Dme Medigap Part B [id number] Self [id number] Medicare Medicare Primary [id number] Self 9 [id number] Medicare Dme Medigap Part B [id number] Self [id number] Medicare Medicare Primary [id number] Self 9 [id number] ANSI-Medicare Part B [id number] ANSI-Commercial [id number] ANSI-Commercial [id number] ANSI-Medicare Part B [id number] Medicare Dme Medigap Part B [id number] Self [id number] Medicare Medicare Primary [id number] Self 9 [id number] Medicare Dme Medigap Part B [id number] Self [id number] Medicare Medicare Primary [id number] Self [id number] Medicare Dme Medigap Part B [id number] Self [id number] Medicare Medicare Primary [id number] Self [id number] Medicare Dme Medigap Part B [id number] Self [id number] Medicare Medicare Primary [id number] Self [id number] Medicare Dme Medigap Part B [id number] Self [id number] Medicare Medicare Primary [id number] Self 9 [id number] ANSI-Commercial [id number] ANSI-Medicare Part B [id number] Umr (pr) Medigap Part B [id number] Self [id number] [place] [id number] Self [id number] Medicare Dme Medigap Part B [id number] Self [id number] Medicare Medicare Primary [id number] Self 9 [id number] Medicare Dme Medigap Part B [id number] Self [id number] Medicare Medicare Primary [id number] Self 9 [id number] [place] [id number] Self [id number] ANSI-Medicare Part B [id number] ANSI-Commercial [id number] Umr (pr) Medigap Part B [id number] Self Y1946 7646 [place] Primary [id number] Self [id number] ANSI-Commercial [id number] ANSI-Medicare Part B [id number] ANSI-Medicare Part B [id number] ANSI-Commercial [id number] [place]mr (pr) Medigap Part B [id number] Self Y1946 7646 [place] Primary [id number] Self [id number] U[place] (pr) Medigap Part B [id number] Self Y1946 7646 [place] Primary [id number] Self [id number] Medicare [facility] Medigap Part B [id number] Self 0 [id number] Medicare Medicare Primary [id number] Self 09 [id number] [place] Medigap Part B [id number] Self [id number] UMR O [id number] S [id number] MEDICARE C [id number] S [id number] A ANSI-Commercial [id number] ANSI-Medicare Part B [id number] Umr (pr) Medigap Part B [id number] Self Y1946 7646 [place] Primary [id number] Self [id number] ANSI-Commercial [id number] ANSI-Medicare Part B [id number] ANSI-Medicare Part B [id number] ANSI-Commercial [id number] [employer] [facility] Ppo Medigap Part B [id number] Self [id number] Umr Medigap Part B [id number] Self [id number] Medicare (Part B) Medicare Primary [id number] Self [id number] ANSI-Medicare Part B [id number] ANSI-Commercial [id number] [employer] [id number] SP [id number] Umr (pr) Medigap Part B [id number] Self [id number] 7646 [place] [id number] Self [id number] UMR [facility] [id number] SP [id number] UMR [facility] [id number] SP [id number] Umr (pr) Medigap Part B [id number] Self [id number] [place] [id number] Self [id number] [employer] PPO O [id number] S [id number] [place] (pr) Medigap Part B [id number] Self [id number] [place] Primary [id number] Self [id number] [employer] [id number] SP [id number] [place] Primary [id number] Self [id number] [place] (pr) Medigap Part B [id number] Self [id number] Medicare Dme Medigap Part B [id number] Self 0 [id number] Medicare Medicare Primary [id number] Self 09 [id number] Medicare Dme Medigap Part B [id number] Self 0 [id number] Medicare Medicare Primary [id number] Self 09 [id number] Medicare Dme Medigap Part B [id number] Self 0 [id number] Medicare Medicare Primary [id number] Self 09 [id number] [place] [id number] Self [id number] [employer] [facility] Ppo Medigap Part B [id number] Self [id number] Medicare (Part B) Medicare Primary [id number] Self [id number] [place] Primary [id number] Self [id number] [place] Primary [id number] Self [id number] [place] (pr) Medigap Part B [id number] Self [id number] Medicare Dme Medigap Part B [id number] Self 0 [id number] Medicare Medicare Primary [id number] Self 09 [id number] [place] Primary [id number] Self [id number] Medicare [facility] Medicare Primary [id number] Self [id number] Medicare [facility] Medicare Primary [id number] Self [id number] Medicare Dme Medigap Part B [id number] Self 0 [id number] Medicare Medicare Primary [id number] Self 09 [id number] [place] Primary [id number] Self [id number] [place] Primary [id number] Self [id number] Medicare Dme Medigap Part B [id number] Self 0 [id number] Medicare Medicare Primary [id number] Self 09 [id number] [place] [facility] Ppo Medigap Part B [id number] Self [id number] Medicare (Part B) Medicare Primary [id number] Self [id number] Medicare [facility] Medicare Primary [id number] Self [id number] Medicare Dme Medigap Part B [id number] Self 0 [id number] Medicare Medicare Primary [id number] Self 09 [id number] Medicare [facility] Medicare Primary [id number] Self [id number] Medicare Dme Medigap Part B [id number] Self 0 [id number] Medicare Medicare Primary [id number] Self 09 [id number] Medicare [facility] Medicare Primary [id number] Self [id number] Medicare [facility] Medicare Primary [id number] Self [id number] Medicare Dme Medicare Primary Self Medicare Medicare Primary Self [employer] Commercial Self Medicare [facility] Medicare Primary Self [employer] (pr) Commercial Self [employer] [id number] SP [id number] [employer] [facility] Ppo Medigap Part B Self Medicare (Part B) Medicare Primary Self [place] [facility] Medigap Part B Self [employer] [id number] SP [id number] [place] Medigap Part B [place] Medicare Primary Self [employer] [id number] SP [id number] [facility] [id number] SP [id number] [employer] Commercial Self Medicare [facility] Medicare Primary Self [facility] [id number] SP [id number] [place] Medigap Part B Self [facility] [id number] SP [id number] MEDICARE A [id number] Self [id number] [facility] [id number] SP [id number] [place] U [id number] Self [id number] ALLSTATE E [id number] Self [id number] [facility] Medigap Part B Self Medicare Medicare Primary Self ALLSTATE INS CO NO FAULT [id number] SP [id number] [employer] PPO P [id number] S [id number] [facility] [id number] 18 [id number] ALLSTATE O [id number] S [id number] [employer] O [id number] S [id number] ALLSTATE O [id number] S [id number] Problems, Conditions, and Diagnoses Code Display Name Description Problem Type Effective Dates Data Source(s) R29.6 [id number] Frequent falls Problem 10/19/2020 12:00:00 A M EST [facility] ([facility]) [id number] Onychomycosis Onychomycosis Problem 08/17/2020 12:00:00 AM EDT [facility] ([facility] L97.423 [id number] Non-pressure chronic ulcer of left heel and midfoot with necrosis of muscle Problem 07/21/2020 12:00:00 AM EDT [facility] ([facility]) E11.621 [id number] Type 2 diabetes mellitus with foot ulcer Problem 07/21/2020 12:00:00 AM EDT [facility] ([facility]) Pressure ulcer of other site, stage 2 Pressure u lcer of other site, stage 2 Problem 05/23/2020 12:00:00 AM EDT - 08/17/2020 12:00:00 AM ED T [facility] ([facility] Cellulitis of left lower limb Cellulitis of left lower limb Problem 05/13/2020 12:00:00 AM EDT - 08/17/2020 12:00:00 AM EDT [facility] ([facility] Pressure ulcer of left heel, stage 4 Pressure ul cer of left heel, stage 4 Problem 05/13/2020 12:00:00 AM EDT - 05/23/2020 12:00:00 AM ED T [facility] ([facility] Pressure ulcer of left heel, stage 2 Pressure ul cer of left heel, stage 2 Problem 05/13/2020 12:00:00 AM EDT - 05/13/2020 12:00:00 AM ED T [facility] ([facility] Type 1 diabetes mellitus with diabetic p 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 Problem 05/13/2020 12:00:00 AM EDT [facility] ([facility] Type 1 diabetes mellitus with diabetic p 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 Problem 04/20/2020 12:00:00 AM E DT - 05/13/2020 12:00:00 AM EDT [facility] ([facility] [id number] Onychomycosis Onychomycosis Problem 04/20/2020 12 :00:00 AM EDT - 05/13/2020 12:00:00 AM EDT [facility] ([facility] Pressure ulcer of other site, stage 2 Pressure u lcer of other site, stage 2 Problem 04/20/2020 12:00:00 AM EDT - 05/13/2020 12:00:00 AM ED T [facility] ([facility] N48.1 45682551 Balanitis Problem 11/12/2019 12:00:00 AM ES T eCW1 ([facility]) Z00.00 [id number] Medicare annual wellness visit, subsequen t Problem 11/12/2019 12:00:00 AM EST eCW1 ([facility]) N48.1 28123810 Balanitis Problem 11/12/2019 12:00:00 AM ES T eCW1 ([facility]) Z00.00 [id number] Medicare annual wellness visit, subsequen t Problem 11/12/2019 12:00:00 AM EST eCW1 ([facility]) [id number] Type 2 diabetes mellitus with ulcer Type 2 diabetes mellitus with ulcer Problem 11/07/2019 12:00:00 AM EST [facility] ([facility] Pressure ulcer of other site, stage 1 Pressure u lcer of other site, stage 1 Problem 11/07/2019 12:00:00 AM EST [facility] ([facility] [id number] Acute osteomyelitis of ankle and/or foot Acute osteomyelitis of ankle and/or foot Problem 09/04/2019 12:00:00 AM EST - 09/12/2019 12:00:00 AM EST [facility] ([facility] Q64227 Personal history of nicotine dependence Personal history of nicotine dependence Diagnosis 06/09/2020 01:20:00 PM [facility] Z7982 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 Diagnosis 06/09/2020 01:20:00 PM [facility] I5022 Chronic systolic (congestive) heart fail ure Chronic systolic (congestive) heart failure Diagnosis 06/09/2020 01:20:00 PM [facility] [id number] Unspecified asthma, uncomplicated Unspecified as thma, uncomplicated Diagnosis 06/09/2020 01:20:00 PM [facility] V73243 Type 2 diabetes mellitus with hypoglycem ia without coma Type 2 diabetes mellitus with hypoglycemia without coma Diagnosis 06/09/2020 01:20:00 PM [facility] Surgeries/Procedures Procedure Description Date Indications Data Source(s) FINE NEEDLE ASPIRATION W/O IMAGING GUIDANCE 10/25/2020 12:00:00 AM EST eCW1 ([facility]) FINE NEEDLE ASPIRATION W/O IMAGING GUIDANCE 10/19/2020 12:00:00 AM EST eCW1 ([facility]) FINE NEEDLE ASPIRATION W/O IMAGING GUIDANCE 10/06/2020 12:00:00 AM EST eCW1 ([facility]) FINE NEEDLE ASPIRATION W/O IMAGING GUIDANCE 09/29/2020 12:00:00 AM EST eCW1 ([facility]) FINE NEEDLE ASPIRATION W/O IMAGING GUIDANCE 09/21/2020 12:00:00 AM EST eCW1 ([facility]) Deep Dissection Below Fascia Foot Infection Bursal Space Sin gle 08/28/2020 12:00:00 AM EST [facility] ([facility] Amb Glucose Monitoring Interpretation And Report 08/20 12:00:00 AM EDT [facility] ([facility]) FINE NEEDLE ASPIRATION W/O IMAGING GUIDANCE 08/18/2020 12:00:00 AM EDT eCW1 ([facility]) FINE NEEDLE ASPIRATION W/O IMAGING GUIDANCE 08/04/2020 12:00:00 AM EDT eCW1 ([facility]) DEBRIDEMENT NAIL ANY METHOD 1-5 08/03/2020 12:00:00 AM EDT [facility] ([facility] FINE NEEDLE ASPIRATION W/O IMAGING GUIDANCE 07/28/2020 12:00:00 AM EDT eCW1 ([facility]) ECG ROUTINE ECG W/LEAST 12 LDS W/I&R 07/26/2020 12:00: 00 AM EDT [facility] ([facility]) FINE NEEDLE ASPIRATION W/O IMAGING GUIDANCE 07/21/2020 12:00:00 AM EDT eCW1 ([facility]) RADEX FOOT COMPLETE MINIMUM 3 VIEWS 06/07/2020 12:00:0 0 AM EDT [facility] ([facility] DEBRIDEMENT SUBCUTANEOUS TISSUE 20 SQ CM/< 06/01/2020 12:00:00 AM EDT [facility] ([facility] DEBRIDEMENT SUBCUTANEOUS TISSUE 20 SQ CM/< 05/25/2020 12:00:00 AM EDT [facility] ([facility] Diabetic Foot Exam 05/18/2020 12:00:00 AM EDT [facility] ([facility]) Amb Glucose Monitoring Interpretation And Report 05/18 12:00:00 AM EDT [facility] ([facility]) DEBRIDEMENT SUBCUTANEOUS TISSUE 20 SQ CM/< 05/14/2020 12:00:00 AM EDT [facility] ([facility] DEBRIDEMENT SUBCUTANEOUS TISSUE 20 SQ CM/< 05/07/2020 12:00:00 AM EDT [facility] ([facility] DEBRIDEMENT SUBCUTANEOUS TISSUE 20 SQ CM/< 04/29/2020 12:00:00 AM EDT [facility] ([facility] DEBRIDEMENT SUBCUTANEOUS TISSUE 20 SQ CM/< 04/15/2020 12:00:00 AM EDT [facility] ([facility] PARING/CUTTING BENIGN HYPERKERATOTIC LESION 2-4 2019 12:00:00 AM EDT [facility] ([facility] DEBRIDEMENT NAIL ANY METHOD 6/> 04/15/2020 12:00:00 AM EDT [facility] ([facility] Injec Anesthetic Agent/Steroid Trans Epidural Lumb/Sacral Si ngle 03/29/2020 12:00:00 AM EDT [facility] ([facility] ) Injec Anesthetic Agent/Steroid Trans Epidural Lumb/Sacral Ea Addl 03/29/2020 12:00:00 AM EDT [facility] ([facility] ) Epidurography Radiological Supervision & Interpretation 03/29/2020 12:00:00 AM EDT [facility] ([facility] ) Moderate Sedation Services; Same Phys Intl 15 Mins; PT >= 5 Years 03/29/2020 12:00:00 AM EDT [facility] ([facility] ) ARTHROCENTESIS ASPIR&/INJECTION MAJOR JT/BURSA 12:00:00 AM EDT [facility] ([facility] ) DEBRIDEMENT OPEN WOUND 20 SQ CM/< 03/10/2020 12:00:00 AM EDT [facility] ARTHROCENTESIS ASPIR&/INJECTION MAJOR JT/BURSA 05/14/2 020 12:00:00 AM EDT [facility] ([facility]) DEBRIDEMENT OPEN WOUND 20 SQ CM/< 02/25/2020 12:00:00 AM EDT [facility] ([facility] ARTHROCENTESIS ASPIR&/INJECTION MAJOR JT/BURSA 020 12:00:00 AM EDT [facility] ([facility]) RADIOLOGIC EXAM KNEE COMPLETE 4/MORE VIEWS 02/24/2020 12:00:00 AM EDT [facility] ([facility]) DEBRIDEMENT SUBCUTANEOUS TISSUE 20 SQ CM/< 02/19/2020 12:00:00 AM EDT [facility] ([facility] PARING/CUTTING BENIGN HYPERKERATOTIC LESION 1 02/12/20 20 12:00:00 AM EDT [facility] ([facility] DEBRIDEMENT NAIL ANY METHOD 6/> 02/12/2020 12:00:00 AM EDT [facility] ([facility] DEBRIDEMENT SUBCUTANEOUS TISSUE 20 SQ CM/< 02/10/2020 12:00:00 AM EDT [facility] ([facility] Tenotomy Toe Subcutaneous Single 02/10/2020 12:00:00 A M EDT [facility] ([facility] Tenotomy Toe Subcutaneous Single 02/10/2020 12:00:00 A M EDT [facility] ([facility] Office Visit, Est Pt., Level 2 FC 02/06/2020 12:00:00 AM EDT eCW1 ([facility]) TRANS CARE MGMT 7 DAY DISCH 02/06/2020 12:00:00 AM EDT eCW1 ([facility]) Tenotomy Toe Subcutaneous Single 01/08/2020 12:00:00 A M EDT [facility] ([facility] DEBRIDEMENT OPEN WOUND 20 SQ CM/< 01/08/2020 12:00:00 AM EDT [facility] ([facility] DEBRIDEMENT OPEN WOUND 20 SQ CM/< 12/23/2019 12:00:00 AM EST [facility] ([facility] DEBRIDEMENT NAIL ANY METHOD 6/> 12/05/2019 12:00:00 AM EST [facility] ([facility] DEBRIDEMENT OPEN WOUND 20 SQ CM/< 12/05/2019 12:00:00 AM EST [facility] ([facility] DEBRIDEMENT OPEN WOUND 20 SQ CM/< 11/21/2019 12:00:00 AM EST [facility] ([facility] ECG ROUTINE ECG W/LEAST 12 LDS W/I&R 11/14/2019 12:00: 00 AM EST MEDENT ([facility]) DEBRIDEMENT OPEN WOUND 20 SQ CM/< 11/07/2019 12:00:00 AM EST [facility] ([facility] Office Visit, Est Pt., Level 3 PC 11/04/2019 12:00:00 AM EST eCW1 ([facility]) Influenza immunization administered or previously received 11/04/2019 12:00:00 AM EST eCW1 ([facility]) Amb Glucose Monitoring Interpretation And Report 11/03 12:00:00 AM EST MEDENT ([facility]) DEBRIDEMENT OPEN WOUND 20 SQ CM/< 10/24/2019 12:00:00 AM EST [facility] ([facility] Results ID Date Data Source [id number] 10/23/2020 01:52:00 AM EST [facility] Name Value Range Interpretation Code Description Data Aydee rce(s) Supporting Document(s) SARS coronavirus 2 RNA [Presence] in Res piratory specimen by TINY with probe detection [facility] This lab was ordered by [facility] a nd reported by [facility]. ID Date Data Source LIPID PANEL (CARDIAC RISK) 10/19/2020 12:00:00 AM EST eCW1 ( [facility]) Name Value Range Interpretation Code Description Data Aydee rce(s) Supporting Document(s) Cholesterol in HDL [Moles/volume] in Serum or Plasma 48 >40 HDL CHOLESTEROL eCW1 ([facility]) Triglyceride [Mass/volume] in Serum or Plasma by calculation 189 <150 TRIGLYCERIDES LEVEL eCW1 ([facility]) Cholesterol [Moles/volume] in Serum or Plasma 134 <200 CHOLESTEROL LEVEL eCW1 ([facility]) Cholesterol in LDL [Mass/volume] in Serum or Plasma by calculation 48 <100 LDL CHOLESTEROL eCW1 ([facility]) 86 NON-HDL-C eCW1 ([facility]) 2.791 <5 CHOLESTEROL RISK RATIO eCW1 ([facility]) ID Date Data Source [id number] 10/19/2020 12:00:00 AM EST eCW1 ([facility]) Name Value Range Interpretation Code Description Data Aydee rce(s) Supporting Document(s) Hemoglobin A1c/Hemoglobin.total in Blood 9.0 HEMOGLOBIN A1c eCW1 ([facility]) ID Date Data Source FREE T4 & TSH PANEL 10/19/2020 12:00:00 AM EST eCW1 ([facility]) Name Value Range Interpretation Code Description Data Aydee rce(s) Supporting Document(s) 1.32 0.76-1.46 FREE T4 eCW1 ([facility]) 3.410 0.358-3.740 THYROID STIMULATING HORM ONE eCW1 ([facility]) ID Date Data Source Comprehensive Metabolic Profile (CMP) 10/19/2020 12:00:00 AM EST eCW1 ([facility]) Name Value Range Interpretation Code Description Data Aydee rce(s) Supporting Document(s) 1.30 0.70-1.30 CREATININE FOR GFR eCW1 ([facility]) 127 136-145 SODIUM LEVEL eCW1 ([facility]) 58.1 >42 GLOMERULAR FILTRATION RATE eCW 1 ([facility]) 558 70-100 GLUCOSE, FASTING eCW1 ([facility]) 21 7-18 BLOOD UREA NITROGEN eCW1 ([facility]) 21 21-32 CARBON DIOXIDE LEVEL eCW1 ([facility]) 10.0 8.8-10.2 CALCIUM LEVEL eCW1 ([facility]) 5.0 3.5-5.1 POTASSIUM SERUM eCW1 ([facility]) 90 98-107 CHLORIDE LEVEL eCW1 ([facility]) 19 12-78 ALT/SGPT eCW1 ([facility]) 8 7-37 AST/SGOT eCW1 ([facility]) 159 45-117 ALKALINE PHOSPHATASE eCW1 ([facility]) 0.6 0.2-1.0 BILIRUBIN,TOTAL eCW1 ([facility]) 3.4 3.2-5.2 ALBUMIN eCW1 ([facility]) 0.7 ALBUMIN/GLOBULIN RATIO eCW1 ([facility]) 8.1 6.4-8.2 TOTAL PROTEIN eCW1 ([facility]) ID Date Data Source CBC - Complete Blood Count 10/19/2020 12:00:00 AM EST eCW1 ( [facility]) Name Value Range Interpretation Code Description Data Aydee rce(s) Supporting Document(s) 7.6 4.0-10.0 eCW1 ([facility]) 11.6 13.5-17.5 eCW1 ([facility]) 37.2 42.0-52.0 eCW1 ([facility]) 4.56 4.30-6.10 eCW1 ([facility]) 25.4 27.0-33.0 eCW1 ([facility]) 31.2 32.0-36.5 eCW1 ([facility]) 15.9 11.5-14.5 eCW1 ([facility]) 81.6 80.0-96.0 eCW1 ([facility]) 419 150-450 eCW1 ([facility]) ID Date Data Source [id number] 10/06/2020 08:00:00 AM EST [facility] Name Value Range Interpretation Code Description Data Aydee rce(s) Supporting Document(s) SARS coronavirus 2 RNA [facility] This lab was ordered by [facility] and reported by [facility]. ID Date Data Source [id number] 09/29/2020 10:00:00 AM EST [facility] Name Value Range Interpretation Code Description Data Aydee rce(s) Supporting Document(s) SARS coronavirus 2 RNA [facility] This lab was ordered by [facility] and reported by [facility]. ID Date Data Source [id number] 09/22/2020 09:30:00 AM EST [facility] Name Value Range Interpretation Code Description Data Aydee rce(s) Supporting Document(s) SARS coronavirus 2 RNA [facility] This lab was ordered by [facility] and reported by [facility]. ID Date Data Source [id number] 09/15/2020 09:00:00 AM EST [facility] Name Value Range Interpretation Code Description Data Aydee rce(s) Supporting Document(s) SARS coronavirus 2 RNA [facility] This lab was ordered by [facility] and reported by [facility]. ID Date Data Source [id number] 08/20/2020 01:42:00 PM EDT [facility] ([facility]) Name Value Range Interpretation Code Description Data Aydee rce(s) Supporting Document(s) Hemoglobin A1c/Hemoglobin.total in Blood 12.0 [facility] ([facility]) Glucose [Mass/volume] in Serum or Plasma 185 [facility] ([facility]) ID Date Data Source [id number] 07/08/2020 12:27:00 PM EDT [facility] ([facility]) Name Value Range Interpretation Code Description Data Aydee rce(s) Supporting Document(s) Thyroid Stimulating Hormone 2.470 ME DENT ([facility]) Free T4 1.16 [facility] ([facility] ID Date Data Source [id number] 07/06/2020 12:21:00 PM EDT [facility] ([facility]) Name Value Range Interpretation Code Description Data Aydee rce(s) Supporting Document(s) Uric Acid 3.4 2.7-8.4 [facility] Magnesium Level 1.66 [facility] ID Date Data Source [id number] 07/06/2020 12:21:00 PM EDT [facility] ([facility]) Name Value Range Interpretation Code Description Data Aydee rce(s) Supporting Document(s) White Blood Count 10.0 4.3-10.9 [facility] Red Blood Count 4.60 4.70-6.20 [facility] Hematocrit 40.5 39.0-50.0 [facility] ([facility]) Platelets 378 130-400 [facility] Hemoglobin 13.5 13.0-17.0 [facility] ([facility]) ID Date Data Source [id number] 07/06/2020 12:21:00 PM EDT [facility] ([facility]) Name Value Range Interpretation Code Description Data Aydee rce(s) Supporting Document(s) Glucose 464 70-100 [facility] ([facility] Blood Urea Nitrogen 16.2 5-21 [facility] ([facility]) Creatinine 1.1 0.6-1.5 [facility] ([facility]) Glomerular filtration rate/1.73 sq M.pre dicted [Volume Rate/Area] in Serum or Plasma by Creatinine-based formula (MDRD) 66 [facility] ([facility]) Sodium 132.7 136-146 [facility] Carbon Dioxide 29.1 20-32 [facility] Potassium 4.39 3.5-5.3 [facility] Chloride 90.4 98-110 [facility] Phosphorus 3.7 [facility] ([facility]) Calcium 8.9 8.4-10.4 [facility] ([facility] Albumin 3.8 3.5-4.7 [facility] ([facility] ID Date Data Source [id number] 06/10/2020 09:48:00 AM EDT [facility] [address] [place] [address] PHONE: [phone] FAX: [phone] Name .................. : LUCITA FLOR Acct Number.................. : [id number] ROOM. ................. : TR-1A MR Number ................... : [id number] Stay type ............. : E/R Discharge Date......... ... : 06/09/20 Admit Date ......... : 06/09/20 Admit Phys .................... : JOHN TOMAS Date of ....... : 1950 Family Phys ................... : Bubbly Phone .................. : [phone] Age ................................ : 70 Film# .................. .:[id number] Sex ................................. : M Unsigned transcriptions are preliminary reports and do not represent a medical or legal document CHEST PORTABLE [id number] COMPLETE:06/09/20 14:11 ARS 61252 Reason(s): weakness, Hx of CHF PORTABLE CHEST X-RAY: INDICATION: Weakness. FINDINGS: The cardiac and mediastinal silhouettes appear normal and the lungs are clear. The bones and soft tissues are normal. The upper abdomen is unremarkable. IMPRESSION: No acute disease identifiable. Electronically Reviewed and Signed By Jaspreet Milton MD , 06/10/20 09:48, BEE Transcribe Initials: DZ , Transcribe Date: 06/09/20 22:04, Dictation Date: Copy for: EMERGENCY DEPT via modem Copy for: 710 MED REC DISCHARGED Page 1 of 1 Name Value Range Interpretation Code Description Data Aydee rce(s) Supporting Document(s) ID Date Data Source [id number] 06/09/2020 08:52:00 [place] [address] RESPIRATORY CARE REPORT ==== ---------NAME------- NUMBER SEX AGE ADMIT DISC. XRAY# F/C ERIC FLOR [id number] M 70 06/09/20 06/09/20 [id number] MB4 E/R DATE OF : 1950 M/R# [id number] #: [id number] TR-1A LOCATION: EMERGENCY DEPT EKG [id number] COMPLE TE:06/09/20 14:07 EWW [id number] PHYSICIAN: JOHN TOMAS Name Value Range Interpretation Code Description Data Aydee rce(s) Supporting Document(s) ID Date Data Source [id number] 06/09/2020 01:20:00 PM EDT [facility] 1 OrderSheet [facility] Emergency Department [address] [place] [address] Phone #: ext- [phone] 06/09/2020 13:03 Patient: CHACHO RING Sex: M : 1950 Age: 70yWEIGHT:72.5 kg (S) HEIGHT:74 inches (S) BMI:20.5ALLERGIES: No Known Drug AllergyCHIEF COMPLAINT: glucoseDIAGNOSIS: HypoglycemiaLAB ORDERSOrder Description Priority Entered Acknowledged InitialedCBC w Diff STAT 13:30 06/09/2020 13:30 Cedrick Pedroza RN, M.D.;CMP STAT 13:30 06/09/2020 13:30 Cedrick Pedroza RN, M.D.;Lipase STAT 13:30 06/09/2020 13:31 Cedrick Pedroza RN, M.D.;PT/PTT STAT 13:30 06/09/2020 13:31 Cedrick Pedroza RN, M.D.;Troponin-T STAT 13:30 06/09/2020 13:31 Cedrick Pedroza RN, M.D.;BNP STAT 13:31 06/09/2020 13:55 Cedrick Pedroza RN, M.D.;DIAGNOSTIC STUDY ORDERSOrder Description Priority Entered Acknowledged InitialedChest Portable 1 STAT 13:31 06/09/2020 13:55 Cedrick Rowell RN(Oxygen?(No)) Alicia; Reason for Study: weakness, Hx of CHFMEDICATION/IV/DRIP/FLUID ORDERSOrder Description Priority Entered Acknowledged [id number] IVP 50 mL 13:30 06/09/2020 13:55 Cedrick Pedroza RN, M.D.; 2 OrderSheet [facility] Emergency Department [address] [place] [address] Phone #: ext- [phone] 06/09/2020 13:03 Patient: CHACHO RING Sex: M : 1950 Age: 84xC3MU IV : 100 13:30 06/09/2020 13:56 DorismL/hr Cedrick Otero RN, M.D.;GENERAL ORDERSOrder Description Priority Entered Acknowledged InitialedDiet: (Regular Diet) 13:21 06/09/2020 13:23 Cedrick Perea ED, Jesse ER M.D.; Wshj5Piloc Pressure 13:30 06/09/2020 13:30 Lesleeonitor Cedrick Otero RN, M.D.;Tire Buster 13:30 06/09/2020 13:30 Chula(continuous) Cedrick Otero RN, M.D.;EKG 13:30 06/09/2020 13:31 Cedrick Pedroza RN, M.D.;NPO 13:30 06/09/2020 13:30 Cedrick Pedroza RN, M.D.;Obtain Old EKG 13:30 06/09/2020 13:30 Cedrick Pedroza RN, M.D.;Saline Lock 13:30 06/09/2020 13:30 Cedrick Pedroza RN, M.D.;Vitals 13:30 06/09/2020 13:30 Cedrick Pedroza RN, M.D.;Accucheck (q 1 hr) 13:31 06/09/2020 13:55 Cedrick Pedroza RN, M.D.;[El ectronically signed by Chula Harvey RN (18:13 06/09/2020)][Electronically signed by Cedrick Otero M.D. (18:16 06/09/2020)][Electronically locked by Chula Harvey RN (18:13 06/09/2020)] Name Value Range Interpretation Code Description Data Aydee rce(s) Supporting Document(s) ID Date Data Source [id number] 06/09/2020 01:20:00 PM EDT [facility] 1 Medication Reconciliation Report [facility] Emergency Department [address] [place] [address] Phone #: ext- [phone] 06/09/2020 13:03 Patient: CHACHO RING Sex: M : 1950 Age: 70yWeight: 72.5 kgHeight/Length: 74 in.BMI: 20.5ALLERGIES: No Known Drug AllergyThe patient's Home Medications are listed below:CONTINUE TAKING THE FOLLOWING MEDICATIONS: Allopurinol Oral (100 mg) 1/2 tablet, every other day Aspirin Oral 81 mg, daily buPROPion HCl Oral 300 mg, daily Cetirizine HCl Oral 10 mg, daily Esomeprazole Magnesium Oral 40 mg, daily FLUoxetine HCl Oral 20 mg, daily Folic Acid Oral (800 mcg) 1 tablet, daily Glucosamine Chondr Complex Oral 500 mg, 2x a day HumaLOG Subcutaneous sliding scale, 2x a day Lisinopril Oral 20 mg, daily Magnesium Oral, 3x a day Metoprolol Succinate ER Oral (50 mg) 1 tablet, daily Milk Thistle Oral 240, daily Mometasone Furoate Inhalation, daily Multi-Vitamins Oral, daily 2 Medication Reconciliation Report [facility] Emergency Department [address] [place] [address] Phone #: ext- [phone] 06/09/2020 13:03 Patient: CHACHO RING Sex: M : 1950 Age: 70y Pravastatin Sodium Oral 20 mg, daily Prevacid Oral, 2x a day raNITIdine HCl Oral 150 mg, 2x a day Sildenafil Citrate Oral (100 mg), prn Symbicort Inhalation (80-4.5 mcg/act) 2 puffs, 2x a day Tresiba Subcutaneous 20 , daily Turmeric Oral, daily Vitamin B Complex Oral, daily Vitamin D2 Oral 1000, dailyThe source(s) of the original Home Medication information:patientThe following Medications were given to the patient in the Emergency Department:D50W [IVP] IVP 25 gm, administered: 06/09/2020 1:44:00 PMD5NS IV IV Fluids bolus 0, then 100 mL/hr, administered: 06/09/2020 1:47:00 PMThe following Medications were prescribed to the patient:None. Name Value Range Interpretation Code Description Data Aydee rce(s) Supporting Document(s) ID Date Data Source [id number] 06/09/2020 01:20:00 PM EDT [facility] 1 Medication Administration Record [facility] Emergency Department [address] [place] [address] Phone #: ext- [phone] 06/09/2020 13:03 Patient: CHACHO RING Sex: M : 1950 Age: 70yWeight: 72.5 kgHeight/Length: 74 inBMI: 20.5ALLERGIES: No Known Drug Allergy Date/Time Medication Administered Medication OrderedGiven D50W [IVP] D50W IVP 50 mL13:44 06/09/2020 Dose: 25 gm IVPDroselyn Harvey RN Site: #1 left wristStart D5NS IV D5NS IV : 100 mL/hr13:47 06/09/2020 Dose: IV FluidsChula Harvey RN Rate: 100 mL/hr over 10 hour(s)---- Dispensed: 1000 mL bagStop Site: #1 left wrist17:20 06/09/2020Chula Harvey RN Name Value Range Interpretation Code Description Data Aydee rce(s) Supporting Document(s) ID Date Data Source [id number] 06/09/2020 01:20:00 PM EDT [facility] 1 General Instructions [facility] Emergency Department [address] [place] [address] Phone #: ext- [phone] 06/09/2020 13:03 [id number] Sex: M : 1950 Age: 70yHypoglycemia without coma- associated with type 1 diabetes and use of insulin.INSTRUCTIONS (PLEASE EAT 3 MEALS PER DAY AND SNACK BETWEEN MEALS; PLEASE SEE DR. 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 It is very important to follow up with formerly [facility] provider.GENERAL WARNINGS: Return or contact your physician immediately if your condition worsens orchanges unexpectedly, if not improving as expected, or if other problems arise. Specifically return if pain,vomiting, bleeding, breathing difficulty or fever greater than 102 degrees F and not controlled byacetaminophen worsens.Your Current Medications: Your current home medications have been reviewed.CONTINUE TAKING THE FOLLOWING MEDICATIONS:Allopurinol Oral : Tablet 100 mg, 1/2 tablet every other day.Aspirin Oral : 81 mg daily.buPROPion HCl Oral : 300 mg daily.Cetirizine HCl Oral : 10 mg daily.Esomeprazole Magnesium Oral : 40 mg daily.FLUoxetine HCl Oral : 20 mg daily.Folic Acid Oral : Tablet 800 mcg, 1 tablet daily.Glucosamine Chondr Complex Oral : 500 mg 2x a day.HumaLOG Subcutaneous : sliding scale 2x a day.Lisinopril Oral : 20 mg daily.Magnesium Oral : 3x a day.Metoprolol Succinate ER Oral : Tablet Extended Release 24 Hour 50 mg, 1 tablet daily.Milk Thistle Oral : 240 daily.Mometasone Furoate Inhalation : daily.Multi-Vitamins Oral : daily.Pravastatin Sodium Oral : 20 mg daily.Prevacid Oral : 2x a day.raNITIdine HCl Oral : 150 mg 2x a day.Sildenafil Citrate Oral : Tablet 100 mg, prn.Symbicort Inhalation : Aerosol 80-4.5 mcg/act, 2 puffs 2x a day.Tresiba Subcutaneous : 20 daily. 2 General Instructions [facility] Emergency Department [address] [place] [address] Phone #: [phone]- [phone] 06/09/2020 13:03 [id number] Sex: M : 1950 Age: 70y Turmeric Oral : daily. Vitamin B Complex Oral : daily. Vitamin D2 Oral : 1000 daily. Follow-up: Return to the emergency department as needed. Follow up with your healthcare provider in two days even if well. Call for an appointment. Reason for referral: evaluation and treatment. Summary of care provided to patient via paper. Understanding of the discharge instructions verbalized by patient. Expected course of illness, discharge instructions, activity level, diet, follow-up appointment and risks and benefits of treatment reviewed with patient and understanding verbalized. Agrees to plan of care. ADDITIONAL INFORMATIONInsulin Reaction (Low Blood Sugar)You have been treated for an insulin reaction today. This occurs when insulin causes your bloodsugar to go too low (hypoglycemia). It may happen if you take too much insulin. It can also occur fromtaking your usual amount of insulin but not getting enough food. This can be due to vomiting or loss ofappetite. Other causes of low blood sugar include heavy exercise, strong emotions, and alcohol use.Your blood sugar level may also be affected by tobacco, caffeine, and certain medicines, including: Aspirin Haloperidol Propoxyphene Chlorpromazine Propranolol Disopyramide TABATHA inhibitors Fluoroquinolone antibioticsIf you suspect that caffeine may be affecting you, switch to caffeine-free drinks. If you smoke, try toquit. Quitting smoking is one of the most important things you can do to protect your health. If you aretaking any of the listed medicines, talk to your healthcare provider about switching to another type.A class of medicines called beta- blockers is used for high blood pressure, rapid heart rate, and otherconditions. Beta-blockers may prevent the early symptoms of low blood sugar. If you are taking a 3 General Instructions [facility] Emergency Department [address] [place] [address] Phone #: ext- [phone] 06/09/2020 13:03 Patient: CHACHO RING Sex: M : 1950 Age: 70ybeta-vianey, you might not realize that your blood sugar level is getting low. If you are taking abeta-vianey, talk to your healthcare provider about switching to a different class. The beta-blockerclass includes: Propranolol Atenolol Metoprolol Nadolol Labetalol CarvedilolHome care During the next 24 hours rest and eat frequent small meals. This will help prevent the return of low blood sugar. Learn the signals your body gives as your blood sugar drops (see below).If symptoms of hypoglycemia return Ke ep a source of fast-acting sugar with you. At the first sign of low blood sugar, eat or drink 15 to 20 grams of fast-acting sugar. Examples include: o 3 to 4 glucose tablets (found at most drugstores) o 4 ounces of regular soda o 4 ounces of fruit juice o 2 tablespoons of raisins o 1 tablespoon of honey Check your blood sugar 15 minutes after treating yourself. If it is still low, take another 15 to 20 grams of fast-acting sugar. Test again in 15 minutes. If it's still low, go to an emergency room. Once blood sugar returns to normal, eat a snack or meal to keep your blood sugar in a safe range.In the future, if you are not able to eat your normal amount at each meal due to illness or vomiting,you may need to reduce your insulin dose. Contact your healthcare provider as soon as possible to 4 General Instructions [facility] Emergency Department [address] [place] [address] Phone #: ext- [phone] 06/09/2020 13:03 Patient: CHACHO RING Sex: M : 1950 Age: 70yask for a plan for a short-term adjustment of your dose if this happens again.Check your blood sugar every 4 to 6 hours. Do this until you can begin eating normal amounts again.Wear a medical alert bracelet or necklace, or carry a card in your wallet or a thumb drive explainingthat you have diabetes. If you have a severe hypoglycemic reaction and can't give this information, itwill help medical personnel provide proper care.Follow-up careFollow up with your healthcare provider, or as advised.Check and write down your blood sugar and insulin dose twice a day--before breakfast and beforedinner. Do this for the next 5 days. See your healthcare provider during the next week to review theserecords. This will help determine if you need to adjust your insulin dose.If you have frequent or severe episodes of low blood sugar, your healthcare provider mayrecommend glucagon injection, which raises your blood sugar. One of your family members or friendswould need to learn how to give you this injection.For more information about diabetes, contact the [place] [employer], atwww.diabetes.org.When to seek medical adviceCall your healthcare provider right away if any of these symptoms of low blood sugar occur. Fatigue Headache Shakes Excess sweating Hunger Feeling anxious or restless Vision changes Drowsiness Weakness 5 General Instructions [facility] Emergency Department [address] [place] [address] Phone #: ozj- [phone] 06/09/2020 13:03 Patient: CHACHO RING Sex: M : 1950 Age: 70y Confusion Personality changes Seizure or loss of consciousness [id number] [employer] [place] [address]. All rights reserved. This information is not intended as asubstitute for professional medical care. Always follow your healthcare professional's instructions. You have been given the following additional information: Diabetic Insulin Reaction(Electronically signed by Cedrick Otero M.D. 06/09/2020 18:16) Name Value Range Interpretation Code Description Data Aydee rce(s) Supporting Document(s) ID Date Data Source [id number] 06/09/2020 01:20:00 PM EDT [facility] 1 Clinical Report - Nurses [facility] Emergency Department [address] [place] [address] Phone #: ext- [phone] 06/09/2020 13:03 Patient: CHACHO RING Sex: M : 1950 Age: 70yTRIAGEArrived by EMS. Historian: patient. Unaccompanied.Triage time: 13:04 06/09/2020. Acuity: LEVEL 3.Chief Complaint: (Low blood sugar).Alert. No acute distress.This started today. ( Pt states he took 14 units Tresiba and 1 unit humalog this morning, did not eatbreakfast but did have a cup of coffee; Pt planned to eat after wound care appt; Pt was conscious butunresponsive according to [employer] when he brought his vehicle in for a check light; When emsarrived his FS was 45, oral glucose given and went up to 113. 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 Sepsis Screen negative. No suspected or confirmed signs ofinfection present. (13:16 06/09/2020).SKIN INTEGRITY ASSESSMENT: Skin breakdown noted on the left heel. --13:06/09/20 Lilli Spaulding R.N.13:04 06/09/20. BP: 179/95. MAP: 123. HR: 90. RR: 18. O2 saturation: 98% on room air. Temp: 98.3 F(oral). Pain level now: 0/10. --13:18 06/09/20 Lilli Spaulding R.N.Weight: 72.5 kg stated. Height/Length: 74 inches Per Patient. BMI: 20.5. --13:03 06/09/20 Lilli Spaulding R.N.MedicationsMetoprolol Succinate ER Oral (Tablet Extended Release 24 Hour 50 mg) 1 tablet, daily. --13:06/09/20Lilli Spaulding R.N. Pravastatin Sodium Oral 20 mg, daily. --13:06/09/20 Lilli Spaulding R.N. Aspirin Oral 81 mg, daily. --13:06/09/20 Lilli Spaulding R.N. Esomeprazole Magnesium Oral 40 mg, daily. --13:06/09/20 Lilli Spaulding R.N. FLUoxetine HCl Oral 20 mg, daily. --13:06/09/20 Lilli Spaulding R.N. buPROPion HCl Oral 300 mg, daily. --13:06/09/20 Lilli Spaulding R.N. Symbicort Inhalation (Aerosol 80-4.5 mcg/act) 2 puffs, 2x a day. --13:06/09/20 Lilli Spaulding R.N. Mometasone Furoate Inhalation, daily. --13:10 06/09/20 Lilli Spaulding R.N. Cetirizine HCl Oral 10 mg, daily. --13:10 06/09/20 Lilli Spaulding R.N. Magnesium Oral, 3x a day. --13:10 06/09/20 Lilli Spaulding R.N. HumaLOG Subcutaneous sliding scale, 2x a day. --13:10 06/09/20 Lilli Spaulding R.N. 2 Clinical Report - Nurses [facility] Emergency Department [address] [place] [address] Phone #: ext- [phone] 06/09/2020 13:03 Patient: CHACHO RING Sex: M : 1950 Age: 70yTresiba Subcutaneous 20 , daily. --13:10 06/09/20 Lilli Spaulding R.N.Turmeric Oral, daily. --13:11 06/09/20 Lilli Spaulding R.N.raNITIdine HCl Oral 150 mg, 2x a day. --13:11 06/09/20 Lilli Spaulding R.N.Allopurinol Oral (Tablet 100 mg) 1/2 tablet, every other day. --13:11 06/09/20 Lilli Spaulding R.N.Lisinopril Oral 20 mg, daily. --13:11 06/09/20 Lilli Spaulding R.N.Milk Thistle Oral 240, daily. --13:11 06/09/20 Lilli Spaulding R.N.Prevacid Oral, 2x a day. --13:12 06/09/20 Lilli Spaulding R.N.Sildenafil Citrate Oral (Tablet 100 mg), as needed. --13:12 06/09/20 Lilli Spaulding R.N.Folic Acid Oral (Tablet 800 mcg) 1 tablet, daily. --13:12 06/09/20 Lilli Spaulding R.N.Vitamin D2 Oral 1000, daily. --13:12 06/09/20 Lilli Spaulding R.N.Multi-Vitamins Oral, daily. --13:13 06/09/20 Lilli Spaulding R.N.Vitamin B Complex Oral, daily. --13:13 06/09/20 Lilli Spaulding R.N.Glucosamine Chondr Complex Oral 500 mg, 2x a day. --13:13 06/09/20 Lilli Spaulding R.N.AllergiesNo Known Drug Allergy. --13:13 06/09/20 Lilli Spaulding R.N.PROBLEMS:Diabetic foot ulcer.Allergic Rhinitis.Gout.Hypertension.Congestive Heart Failure.Diabetes Mellitus. --13:15 06/09/20 Lilli Spaulding R.N.Medication/allergy information source: the patient. --13:18 06/09/20 Lilli Spaulding R.N.ADDITIONAL SURGERIES:Hernia Repair.Total Hip Replacement. --13:15 06/09/20 Lilli Spaulding R.N.HistoryPAST MEDICAL HX: Immunizations: up-to-date.SOCIAL HX: Former smoker. Alcohol use; consumes two beers a day. No drug use. He was offeredHIV testing but declined. Patient education was provided. He was offered hepatitis C testing but declined.Patient education was provided. ( COVID screen negative). He has not traveled outside the [place]Infectious disease exposure: No infectious disease exposure. Patient is not a known carrier of tuberculosis,hepatitis, HIV, VRE or CRE.SELF HARM ASSESSMENT: Self harm assessment was performed. The patient answered "no" to thequestion(s) "Do you have thoughts of harming or killing yourself?" and "Do you have a plan for harming orkilling yourself?".ABUSE ASSESSMENT: Abuse assessment. The patient had positive responses to the question (s) "Do you 3 Clinical Report - Nurses [facility] Emergency Department [address] [place] [address] Phone #: ext- [phone] 06/09/2020 13:03 Patient: CHACHO RING Sex: M : 1950 Age: 70y feel safe in your home?". Abuse denied. No suspicion of abuse. No report of abuse. NUTRITIONAL RISK ASSESSMENT: The nutritional risk assessment revealed no deficiencies. LEARNING NEEDS ASSESSMENT: The learning needs assessment revealed no barriers. FALL RISK ASSESSMENT: Fall risk assessment completed. Risk factors identified include patient age greater than 65 years. Fall interventions initiated. Patient placed on stretcher. Side rails up x2. Bed in low position. Patient visible from nurses' station and identified as a fall risk. Electronic bed monitor in use. Call light in reach of patient. Instructed not to get up without assistance. Instructions given to patient including fall prevention information. Verbalizes understanding. FUNCTIONAL ASSESSMENT: Functional assessment performed: uses cane. SKIN INTEGRITY ASSESSMENT: Skin integrity risk assessment was performed. Risk factors identified include impaired nutrition. --13:18 06/09/20 Lilli Spaulding R.N. Interventions Identification band on patient. --13:18 06/09/20 Lilli Spaulding R.N.PHYSICAL [id number] 06/09/20. To room via stretcher.GENERAL / NEURO / PSYCH: Alert. Oriented X 4. Appears in no acute distress.HEENT: Pupils equal, round and reactive to light. No facial asymmetry noted. Mucous membranes arepink.RESPIRATORY: Respirations not labored. Chest nontender.GI / : Abdomen soft and nontender.EXTREMITIES: ( left knee brace intact).SKIN: Skin is warm and dry. --13:30 06/09/20 Chula Harvey RN.NURSING PROGRESS NOTES13:20 06/09/20. Two patient identifiers checked. Call light placed in reach. Side rails up x 2. Bedplaced in lowest position. Brakes of bed on. Patient ready for evaluation- ED physician notified. --13: Chula Harvey RN 13:22 06/09/2020 Site #1 started prior to arrival by EMS via IV in the left wrist with an 22g angiocath, with aseptic technique and good blood return. --13:22 06/09/20 Lilli Spaulding R.N. Finger stick glucose: 56; ordered; performed by nurse; result shown to the ED physician. --13:24 06/09/20 Lilli Spaulding R.N. 13:44 06/09/2020 D50W IVP 25 gm given over 3 minute(s) via site #1. Allergies verified and confirmed 5 rights. IV patency established. IV site checked: no pain, redness, or swelling. IV flushed thoroughly pre- and post-medication administration. IVP given by RN. Information reviewed with patient including reason 4 Clinical Report - Nurses [facility] Emergency Department [address] [place] [address] Phone #: ext- [phone] 06/09/2020 13:03 Patient: CHACHO RING Sex: M : 1950 Age: 70yfor taking this medication, signs of allergic reaction and precautions. Verbalizes understanding. --13:5506/09/20 Chula Harvey RN13:47 06/09/2020 Started bag #1 1000 mL IV Fluids D5NS IV; at 100 mL/hr over 10 hour(s) via site #1 viaIV pump. Allergies verified and confirmed 5 rights. IV patency established. IV site checked: no pain,redness, or swelling. IV flushed thoroughly pre- and post- medication administration. Information reviewedwith patient including reason for taking this medication, signs of allergic reaction and precautions.Verbalizes understanding. Completed per protocol. --13:56 06/09/20 Chula Harvey RN13:48 06/09/20. Assisted patient with urinal. Reassessment after medication administered. No adversereaction. Reassessment after fluids administered. He has had no adverse reaction. ( Patient denies paincomplains of "feeling Fuzzy" accu-check was 56, 1 amp D50 given, IV D5NS infusing at 100 ml /hour siteclear). ( frequent urination in urinal, small amounts, dribbling urine on clothing). --14:00 06/09/20 ISABELLA Fernandes14:00 06/09/20. Patient hygiene performed: received partial bath. Patient is incontinent of urine. Changedpatient gown and diaper. patient given PJ bottoms. --14:01 06/09/20 Chula Harvey RNEKG time: (13:53 06/09/2020). EKG was ordered, performed by a tech and shown to the ED physician.--14:04 06/09/20 Chula Harvey RN13:59 06/09/2020 D50W IVP Response: no adverse reaction symptoms have improved the patient feelsbetter. --15:48 06/09/20 Chula Harvey RN14:25 06/09/20. Regular diet offered; tolerated well (eating lunch ham, scalloped potatoes).Reassessment after fluids administered. ( IV D5NS infusing 100 ml/hour site clear).Point of Care Testing: Finger stick glucose: 81 mg/dL. --14:27 06/09/20 Chula Harvey RN15:00 06/09/20. Regular diet offered; patient consumed 100% and tolerated well. --15:11 06/09/20 ISABELLA Fernandes15:45 06/09/20. Finger stick glucose: 161 mg/dL; performed by nurse; result shown to the ED physician.--15:47 06/09/20 Chula Harvey RN16:45 06/09/20. Finger stick glucose: 261 mg/dL; ordered; performed by nurse; result shown to the EDphysician. Reassessment after fluids administered. He reports no complaints and he is calm and restingquietly. --18:10 06/09/20 Chula Harvey RN17:20 06/09/2020 IV Fluids D5NS IV via IV site #1 Discontinued: bag #1 STOPPED. Total amount infused:400 mL. IV patency established. IV site checked: no pain, redness, or swelling. IV flushed thoroughly.--18:13 06/09/20 Chula Harvey RN.DISPOSITION / DISCHARGE 5 Clinical Report - Nurses [facility] Emergency Department [address] [place] [address] Phone #: ext- [phone] 06/09/2020 13:03 Patient: CHACHO RING Sex: M : 1950 Age: 70y 17:25 06/09/20. BP: 151/94. MAP: 113. HR: 77. RR: 17. O2 saturation: 97%. Temp: 98 F. Pain level now: 0/10. --18:12 06/09/20 Chula Harvey RN 17:25 06/09/2020 Site #1 removed upon discharge. Catheter intact. Manual pressure and bandage applied. --18:12 06/09/20 Chula Harvey RN 17:30 06/09/20. Condition at [facility]: improved and stable. No learning barriers present. Discharge instructions provided and reviewed with the patient. Patient verbalized understanding. Written instructions provided in Serbian. ( Follow up with Dr Deborah Caldwell). The patient was discharged home and accompanied by taxi. He left ambulatory and via taxi. Patient driving. --18:12 06/09/20 Chula Harvey RN.Locked/Released at 06/09/2020 18:13 by Chula Harvey RN Name Value Range Interpretation Code Description Data Aydee rce(s) Supporting Document(s) ID Date Data Source [id number] 06/09/2020 01:20:00 PM EDT [facility] 1 Clinical Report - Physicians/[facility] Levels [facility] Emergency Department [address] [place] [address] Phone #: ext- [phone] 06/09/2020 13:03 [id number] Sex[facility] : 1950 Age: 70y Time Seen: 13:09 06/09/2020; initial patient contact. Arrived- By ambulance. Historian- patient and EMS personnel. Disposition decision: 17:06/09/2020.HISTORY OF PRESENT ILLNESS Chief Complaint: Hypoglycemia. ABNORMAL GLUCOSE. This started just prior to arrival and is still present. At its maximum, severity described as mild. When seen in the E.D., severity described as mild. Modifying factors- relieved by food. Not worsened by anything. No loss of appetite, weight loss, headache, visual disturbance or fatigue. No muscle aches. Denies sleep problem. No decreased urine output. He has had weakness. (pt has known recurrent hypoglycemia incidents, was at [facility] ER on 16 for same; pt took his Tresiba and Humalog this am, but did not eat, so at [employer], was altered; EMS called and BS was 45, went up to 113 w oral glucose). Similar symptoms previously. Patient has had similar symptoms many times. Recent medical care: Not recently seen/assessed.REVIEW OF SYSTEMSNo fever, sore throat, sinus drainage, nasal congestion or cough. No difficulty breathing, chest pain,abdominal pain, nausea or vomiting. No diarrhea, black stools, bloody stools, chills or difficulty withurination. No skin rash, back pain, calf pain, headache or blackouts. No double vision. No difficulty withambulation. All other systems reviewed and are negative.PAST HISTORYSee nurses notes. Problems: Asthma. Diabetic foot ulcer. Allergic Rhinitis. Gout. Hypertension. Congestive Heart Failure. Diabetes Mellitus. Additional Surgeries: Hernia Repair. Total Hip Replacement. Medications: 2 Clinical Report - Physicians/[facility] Emergency Department [address] [place] [address] Phone #: ext- [phone] 06/09/2020 13:03 Patient: CHACHO RING Sex: M : 1950 Age: 70y Glucosamine Chondr Complex Oral 500 mg, 2x a day. Vitamin B Complex Oral, daily. Multi-Vitamins Oral, daily. Vitamin D2 Oral 1000, daily. Folic Acid Oral (Tablet 800 mcg) 1 tablet, daily. Sildenafil Citrate Oral (Tablet 100 mg), as needed. Prevacid Oral, 2x a day. Milk Thistle Oral 240, daily. Lisinopril Oral 20 mg, daily. Allopurinol Oral (Tablet 100 mg) 1/2 tablet, every other day. raNITIdine HCl Oral 150 mg, 2x a day. Turmeric Oral, daily. Tresiba Subcutaneous 20 , daily. HumaLOG Subcutaneous sliding scale, 2x a day. Magnesium Oral, 3x a day. Cetirizine HCl Oral 10 mg, daily. Mometasone Furoate Inhalation, daily. Symbicort Inhalation (Aerosol 80-4.5 mcg/act) 2 puffs, 2x a day. buPROPion HCl Oral 300 mg, daily. FLUoxetine HCl Oral 20 mg, daily. Esomeprazole Magnesium Oral 40 mg, daily. Aspirin Oral 81 mg, daily. Pravastatin Sodium Oral 20 mg, daily. Metoprolol Succinate ER Oral (Tablet Extended Release 24 Hour 50 mg) 1 tablet, daily. Allergies: No Known Drug Allergy.SOCIAL HISTORYFormer smoker. Alcohol use; consumes two beers a day. No drug use.ADDITIONAL NOTESThe nursing notes have been reviewed with agreement regarding the chief complaint, HPI, ROS, PMH andpatient medications and allergies.PHYSICAL EXAMVital Signs: 06/09/2020 13:04 BP: 179/95. MAP: 123. HR: 90. RR: 18. O2 saturation: 98% on room air.Temp: 98.3 F. Pain level now: 0/10. Have been reviewed. Oxygen saturation normal.Appearance: Alert. No acute distress.Eyes: Pupils equal, round and reactive to light. Eyes normal inspection.ENT: Ears normal. Nose normal. Pharynx normal.Neck: Normal inspection. Neck supple.CVS: Normal heart rate and rhythm. Heart sounds normal. Pulses normal.Respiratory: No respiratory distress. Painless inspiration. Breath sounds normal. Chest nontender.Abdomen: No visible injury. Soft and nontender. Bowel sounds normal. No organomegaly. No mass. 3 Clinical Report - Physicians/[facility] Emergency Department [address] [place] [address] Phone #: ext- [phone] 06/09/2020 13:03 Patient: CHACHO RING Sex: M : 1950 Age: 70y Femoral pulses equal. Back: Normal inspection. Skin: Skin warm and dry. Normal skin color. No rash. Normal skin turgor. Extremities: Extremities exhibit normal ROM. No lower extremity edema. Neuro: Oriented X 3. No motor deficit. No sensory deficit. Reflexes normal.LABS, X-RAYS, AND EKGEKG: No acute process. No acute ischemia. Normal EKG. Bradycardia (54/min). Normal ST and [place]. Prior EKG unavailable. The study has been interpreted contemporaneously by me. The EKGappears to be a good tracing. Interpretation time: 13:58 06/09/2020.Chest X-ray: No acute disease. Views: AP (portable). The X-rays were interpreted by the radiologist.Interpretation time: 14:27 06/09/2020.Laboratory Tests: Laboratory tests have been ordered, with results reviewed and considered in themedical decision making process. BNP: (FELI: 06/09/2020 13:47) ( [facility] 06/09/2020 14:36) Final results Test Result Flag Units (Reference) BNP 1631 H PG/ML (0 - 125) Chest Portable 1 View: (FELI: 06/09/2020 13:31) ( [facility] 06/09/2020 14:12) In Progress CHEST PORTABLE Reason(s): weakness, Hx of CHF TRANSPORTATION: P IV? O2? Oxygen?(No) Room: ED CBC w Diff: (FELI: 06/09/2020 14:00) ( [facility] 06/09/2020 14:17) Final results Test Result Flag Units (Reference) CBC W/AUTOMATED DIFF COMPLETE BLOOD COUNT WBC 9.0 10/uL (4.2 - 11.0) RBC 5.05 10/uL (4.50 - 6.30) HEMOGLOBIN 14.5 g/dL (14.0 - 16.0) HEMATOCRIT 44.5 % (41.0 - 51.0) MCV 88.1 fL (80.0 - 94.0) MCH 28.7 pg (27.0 - 34.0) MCHC 32.6 g/dL (31.0 - 36.0) RDW 13.9 % (11.5 - 14.8) PLATELETS 205 10/uL (150 - 450) MPV 9.6 fL (7.4 - 10.4) NEUT 65.0 % (37.0 - 80.0) LYMPH 24.9 L % (25.0 - 40.0) MONO 7.8 % (3.0 - 8.0) EOS 1.3 % (0.0 - 7.0) BASO 0.6 % (0.0 - 2.0) %IG 0.4 H % (0.0 - 0.0) %NRBC 0.0 % (0.0 - 0.0) #NEUT 5.86 10/uL (2.00 - 6.90) #LYMPH 2.24 10/uL (0.60 - 3.40) #MONO 0.70 10/uL (0.00 - 0.90) #EOS 0.12 10/uL (0.00 - 0.70) #BASO 0.05 10/uL (0.00 - 0.20) #IG 0.04 10/uL (0.00 - 0.10) #NRBC 0.00 10/uL (0.00 - 0.00) 4 Clinical Report - Physicians/[facility] Levels [facility] Emergency Department [address] [place] [address] Phone #: ext- [phone] 06/09/2020 13:03 Patient: CHACHO RING Sex: M : 1950 Age: 70y MANUAL DIFF NOT I NDICATED RBC MORPH NOT INDICATED CMP: (FELI: 06/09/2020 13:47) ( MsgRcvd 06/09/2020 14:37) Final results Test Result Flag Units (Reference) COMPREHENSIVE METABOLIC PANEL COMPREHENSIVE METABOLIC PANEL SODIUM 137 mEq/L (134 - 153) POTASSIUM 4.3 mEq/L (3.6 - 5.0) CHLORIDE 100 mEq/L (98 - 107) CO2 23 MEQ/L (22 - 30) GLUCOSE 189 H MG/DL (65 - 110) BUN 12 MG/DL (7 - 21) CREATININE 0.7 MG/DL (0.7 - 1.5) BUN/CREAT 17 (8 - 27) TOTAL PROTEIN 7.0 G/DL (6.3 - 8.2) ALBUMIN 4.1 G/DL (3.9 - 5.0) GLOBULIN 2.9 GM/DL (2.4 - 3.2) A/G RATIO 1.4 (0.8 - 2.0) CALCIUM 9.6 MG/DL (8.4 - 10.2) TOTAL BILI <0.7 MG/DL (0.2 - 1.3) ALKALINE PHOS 110 U/L (38 - 126) SGOT/AST 35 U/L (5 - 40) SGPT/ALT 21 U/L (7 - 56) ANION GAP 14.0 mmol/L (8.0 - 16.0) AGE 70 yrs NON-AA GFR >60 mL/min AFR AMER GFR >60 mL/min Male GFR Interprentation 20-49 yrs >60 mL/min Normal 50-59 yrs >56 mL/min Normal 60-69 yrs >49 mL/min Normal 70-79yrs >42 mL/min Normal 80 and above >35 mL/min Normal Female GFR Interpretation 20-39 yrs >60 mL/min Normal 40-49 yrs >58 mL/min Normal 50-59 yrs >51 mL/min Normal 60-69 yrs >45 mL/min Normal 70-79 yrs >39 mL/min Normal 80 and above >32 mL/min Normal Lipase: (FELI: 06/09/2020 13:47) ( [facility] 14:37) Final results Test Result Flag Units (Reference) LIPASE 7 L U/L (13 - 60) Troponin-T: (FELI: 06/09/2020 13:47) ( [facility] [place] [place] 14:28) Final results Test Result Flag Units (Reference) TROPONIN T <0.01 NG/ML (0.00 - 0.10) TROPONIN T0.1 ng/ml Recommended as the clinical threshold value Stefanieropohiral Giordano. EKG: (FELI: 06/09/2020 13:30) ( [facility] [place] 06/09[facility] 14:10) In Progress . Bedside Tests: Glucose: mild hypoglycemia - 56 (performed at bedside).PROGRESS AND PROCEDURESCourse of Care: 15:12 06/09/20. workup all in and reviewed; glucose up; BNP elevated but pt known wCHF, CXR clear; pt doing much better, ate whole tray and got 50 ml D50% soln. 5 Clinical Report - Physicians/[facility] Emergency Department [address] [place] [address] Phone #: ext- [phone] 06/09/2020 13:03 Patient: CHACHO RING Sex: M : 1950 Age: 70y 15:52 06/09/20. accucheck 161, 10 minutes ago; pt feels back to nml; will observe some more; pt was advised to eat 3 balance meals per day and snacks in between meals 17:09 06/09/20. pt doing great, back to nml, wants to go home; will d/c w instructions; accucheck is 216. Patient counseled in person regarding the patient's stable condition, test results, diagnosis and need for follow-up. Patient agrees with plan of care. Disposition: Condition: good and stable. Discharge decision based on the following: patient's condition is stable; patient's condition is improved; patient is ambulatory; patient is active; patient drinking fluids; patient eating; patient's pain is controlled; patient's exam is improved; no seriously abnormal test results; improving condition on multiple repeat evaluations; social support is good; transportation is available; follow-up is available; clinical impression is consistent with outpatient treatment.CLINICAL IMPRESSION Hypoglycemia without coma- associated with type 1 diabetes and use of insulin.INSTRUCTIONS (PLEASE EAT 3 MEALS PER DAY AND SNACK BETWEEN MEALS; PLEASE SEE DR. CALDWELL, POST DOCTORAL RESEARCHER, IN NEXT FEW DAYS TO HAVE YOUR INSULIN ADJUSTED NEEDED). 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 It is very important to follow up with a healthcare provider. GENERAL WARNINGS: Return or contact your physician immediately if your condition worsens or changes unexpectedly, if not improving as expected, or if other problems arise. Specifically return if pain, vomiting, bleeding, breathing difficulty or fever greater than 102 degrees F and not controlled by acetaminophen worsens. Your Current Medications: Your current home medications have been reviewed. CONTINUE TAKING THE FOLLOWING MEDICATIONS: Allopurinol Oral : Tablet 100 mg, 1/2 tablet every other day. Aspirin Oral : 81 mg daily. buPROPion HCl Oral : 300 mg daily. Cetirizine HCl Oral : 10 mg daily. Esomeprazole Magnesium Oral : 40 mg daily. FLUoxetine HCl Oral : 20 mg daily. F olic Acid Oral : Tablet 800 mcg, 1 tablet daily. 6 Clinical Report - Physicians/[facility] Emergency Department [address] [place] [address] Phone #: ext- [phone] 06/09/2020 13:03 Patient: CHACHO RING Sex: M : 1950 Age: 70y Glucosamine Chondr Complex Oral : 500 mg 2x a day. HumaLOG Subcutaneous : sliding scale 2x a day. Lisinopril Oral : 20 mg daily. Magnesium Oral : 3x a day. Metoprolol Succinate ER Oral : Tablet Extended Release 24 Hour 50 mg, 1 tablet daily. Milk Thistle Oral : 240 daily. Mometasone Furoate Inhalation : daily. Multi-Vitamins Oral : daily. Pravastatin Sodium Oral : 20 mg daily. Prevacid Oral : 2x a day. raNITIdine HCl Oral : 150 mg 2x a day. Sildenafil Citrate Oral : Tablet 100 mg, prn. Symbicort Inhalation : Aerosol 80- 4.5 mcg/act, 2 puffs 2x a day. Tresiba Subcutaneous : 20 daily. Turmeric Oral : daily. Vitamin B Complex Oral : daily. Vitamin D2 Oral : 1000 daily. Follow-up: Return to the emergency department as needed. Follow up with your healthcare provider in two days even if well. Call for an appointment. Reason for referral: evaluation and treatment. Summary of care provided to patient via paper. Understanding of the discharge instructions verbalized by patient. Expected course of illness, discharge instructions, activity level, diet, follow-up appointment and risks and benefits of treatment reviewed with patient and understanding verbalized. Agrees to plan of care.(Electronically signed by Cedrick Otero M.D. 06/09/2020 18:16) Name Value Range Interpretation Code Description Data Aydee rce(s) Supporting Document(s) ID Date Data Source [id number] 06/09/2020 02:17:00 PM EDT [facility] Name Value Range Interpretation Code Description Data Aydee rce(s) Supporting Document(s) CBC W/AUTOMATED DIFF [facility] COMPLETE BLOOD COUNT Leukocytes [#/volume] in Blood by Automated count 9.0 10^3/uL 4.2 - 1 1.0 [facility] Erythrocytes [#/volume] in Blood by Automated count 5.05 10^6/uL 4. 50 - 6.30 [facility] Hemoglobin [Mass/volume] in Blood 14.5 g/dL 14.0 - 16.0 [facility] Hematocrit [Volume Fraction] of Blood by Automated count 44.5 % 4 1.0 - 51.0 [facility] Erythrocyte mean corpuscular volume [Entitic volume] by Auto mated count 88.1 fL 80.0 - 94.0 [facility] Erythrocyte mean corpuscular hemoglobin [Entitic mass] by Automated count 28.7 pg 27.0 - 34.0 [facility] Erythrocyte mean corpuscular hemoglobin concentration [Mass/volume] by Automated count 32.6 g/dL 31.0 - 36.0 [facility] Erythrocyte distribution width [Ratio] by Automated count 13.9 % 11.5 - 14.8 [facility] Platelets [#/volume] in Blood by Automated count 205 10^3/uL 150 - 45 0 [facility] Platelet mean volume [Entitic volume] in Blood by Automated count 9.6 fL 7.4 - 10.4 [facility] Neutrophils/100 leukocytes in Blood by Automated count 65.0 % 37. 0 - 80.0 [facility] Lymphocytes/100 leukocytes in Blood by Manual count 24.9 % 25.0 - 40.0 L [facility] Monocytes/100 leukocytes in Blood by Automated count 7.8 % 3.0 - 8.0 [facility] Eosinophils/100 leukocytes in Blood by Automated count 1.3 % 0.0 - 7.0 [facility] Basophils/100 leukocytes in Blood by Automated count 0.6 % 0.0 - 2.0 [facility] %IG 0.4 % 0.0 - 0.0 H [facility] al %NRBC 0.0 % 0.0 - 0.0 [facility] al Neutrophils [#/volume] in Blood by Automated count 5.86 10^3/uL 2.00 - 6.90 [facility] Lymphocytes [#/volume] in Blood by Automated count 2.24 10^3/uL 0.60 - 3.40 [facility] Monocytes [#/volume] in Blood by Automated count 0.70 10^3/uL 0.00 - 0.90 [facility] Eosinophils [#/volume] in Blood by Automated count 0.12 10^3/uL 0.00 - 0.70 [facility] Basophils [#/volume] in Blood by Automated count 0.05 10^3/uL 0.00 - 0.20 [facility] #IG 0.04 10^3/uL 0.00 - 0.10 [facility] #NRBC 0.00 10^3/uL 0.00 - 0.00 [facility] MANUAL DIFF NOT INDICATED [facility] RBC MORPH NOT INDICATED [facility] ID Date Data Source [id number] 06/09/2020 02:37:00 PM EDT [facility] Name Value Range Interpretation Code Description Data Aydee rce(s) Supporting Document(s) Lipase [Enzymatic activity/volume] in Serum or Plasma 7 U/L 13 - 60 L [facility] ID Date Data Source [id number] 06/09/2020 02:36:00 PM EDT [facility] Name Value Range Interpretation Code Description Data Aydee rce(s) Supporting Document(s) COMPREHENSIVE METABOLIC PANEL [facility] COMPREHENSIVE METABOLIC PANEL Sodium [Moles/volume] in Serum or Plasma 137 mEq/L 134 - 153 [facility] Potassium [Moles/volume] in Serum or Plasma 4.3 mEq/L 3.6 - 5.0 [facility] Chloride [Moles/volume] in Serum or Plasma 100 mEq/L 98 - 107 [facility] Carbon dioxide, total [Moles/volume] in Serum or Plasma 23 MEQ/L 22 - 30 [facility] Glucose [Mass/volume] in Serum or Plasma 189 MG/DL 65 - 110 H [facility] BUN 12 MG/DL 7 - 21 [facility] al Creatinine [Mass/volume] in Serum or Plasma 0.7 MG/DL 0.7 - 1.5 [facility] BUN/CREAT 17 8 - 27 [facility] Protein [Mass/volume] in Serum or Plasma 7.0 G/DL 6.3 - 8.2 [facility] Albumin [Mass/volume] in Serum or Plasma 4.1 G/DL 3.9 - 5.0 [facility] Globulin [Mass/volume] in Serum by calculation 2.9 GM/DL 2.4 - 3.2 [facility] Surgery A/G RATIO 1.4 0.8 - 2.0 [facility] Calcium [Mass/volume] in Serum or Plasma 9.6 MG/DL 8.4 - 10.2 [facility] Bilirubin.total [Mass/volume] in Serum or Plasma <0.7 MG/DL 0.2 - 1.3 [facility] Alkaline phosphatase [Enzymatic activity/volume] in Serum or Plasma 110 U/L 38 - 126 [facility] Aspartate aminotransferase [Enzymatic activity/volume] in Serum or Plasma 35 U/L 5 - 40 [facility] Alanine aminotransferase [Enzymatic activity/volume] in Seru m or Plasma 21 U/L 7 - 56 [facility] Anion gap 3 in Serum or Plasma 14.0 mmol/L 8.0 - 16.0 [facility] AGE 70 yrs [facility] al NON-AA GFR >60 mL/min [facility] ital AFR AMER GFR >60 mL/min [facility] Ho spital Male GFR In terprentation 20-49 yrs >60 mL/min Normal 50-59 yrs >56 mL/min Normal 60-69 yrs >49 mL/min Normal 70-79yrs >42 mL/min Normal 80 and above >35 mL/min Normal Female GFR Interpretation 20-39 yrs >60 mL/min Normal 40-49 yrs >58 mL/min Normal 50-59 yrs >51 mL/min Normal 60-69 yrs >45 mL/min Normal 70-79 yrs >39 mL/min Normal 80 and above >32 mL/min Normal ID Date Data Source [id number] 06/09/2020 02:34:00 PM EDT [facility] Name Value Range Interpretation Code Description Data Aydee rce(s) Supporting Document(s) BNP 1631 PG/ML 0 - 125 H [facility] ashleigh ID Date Data Source [id number] 06/09/2020 02:28:00 PM EDT [facility] Name Value Range Interpretation Code Description Data [facility] rce(s) Supporting Document(s) TROPONIN T <0.01 NG/ML 0.00 - 0.10 [facility] H ospital TROPONIN T0.1 ng/ml Recommended as the c linical threshold value forTroponin T. ID Date Data Source [id number] 06/01/2020 02:15:00 PM EDT [facility] ([facility] Name Value Range Interpretation Code Description Data [facility] Supporting Document(s) Wound Culture Laboratory test result [facility] ([facility] <content>FULL REPORT IN LAB NOTES ([facility] a nd [facility]).</content>
<content></content>
<content>ORGANISM 1: ENTEROBACTER CLOACAE COMPLEX</content>
<content></content>
<content>QUANTITY OF GROWTH FEW</content>
<content></content>
<content>ORGANISM 2: ESCHERICHIA COLI</content>
<content></content>
<content>QUANTITY OF GROWTH FEW</content>
<content></content>
<content></content>
<content></content>
<co ntent>ORGANISM 3: STREPTOCOCCUS MITIS</content>
<content></content>
<content>QUANTITY OF GROWTH FEW</content>
<content></content>
<content>ORGANISM 4: YEAST LIKE ORGANISM</content>
<content></content>
<content>QUANTITY OF GROWTH FEW</content>
<content></content>
<content></content>
<content>ORGANISM 1: ENTEROBACTER CLOACAE COMPLEX</content>
<content>ORGANISM 2: ESCHERICHIA COLI</content>
<content>ORGANISM 3: STREPTOCOCCUS MITIS</content>
<content>ORGANISM 4: YEAST LIKE ORGANISM</content>
<content></content>
<content>ENTEROBACTER CLOACAE COMPLEX: REACTION</content>
<content>TRIMETHOPRIM/SULFAMETHOXAZOLE IV 160mg TMP & 800mg SMXq6h <=20 S</content>
<content>TRIMETHOPRIM/SULFAMETHOXAZOLE PO Bactrim DS Bid <=20 S</content>
<content>GENTAMICIN IV 80mg q8h <=1 S</content>
<content>CEFAZOLIN IV 1gm q8h >=64 R</content>
<content>LEVOFLOXACIN IV 500mg qd <=0.12 S</content>
<content>LEVOFLOXACIN PO 250mg qd <=0.12 S</content>
<content>LEVOFLOXACIN PO 500mg qd <=0.12 S</content>
<content>TOBRAMYCIN IV 80mg q8h <=1 S</content>
<content>CEFTRIAXONE IV 1gm q24h <=1 S</content>
<content>CEFTAZIDIME IV 1gm q8h <=1 S</content>
<content> PIPERACILLIN/TAZOBACTAM IV 2.25 gm q6h <=4 S</content>
<content>AZTREONAM IV 1gm q8h <=1 S</content>
<content>ERTAPENEM IV 1gm qd <=0.5 S</content>
<content>MEROPENEM IV 1 gm q8h <=0.25 S</content>
<content>MEROPENEM IV 500 mg q8h <=0.25 S</content>
<content>TIGECYCLINE IV 50mg q12h 2 S</content>
<content> CEFEPIME IV 1 gm q12h <=1 S</content>
<content>CEFEPIME IV 2 gm q12h <=1 S</content>
<content></content>
<content>ESCHERICHIA COLI: REACTION</content>
<content>TRIMETHOPRIM/SULFAMETHOXAZOLE IV 160mg TMP & 800mg SMXq6h <=20 S</content>
<content> TRIMETHOPRIM/SULFAMETHOXAZOLE PO Bactrim DS Bid <=20 S</content>
<content>AMPICILLIN IV 500mg q6h 16 I</content>
<content>AMPICILLIN PO 500mg q6h fasting 16 I</content>
<content>GENTAMICIN IV 80mg q8h <=1 S</content>
<content>CEFAZOLIN IV 1gm q8h <=4 S</content>
<content>LEVOFLOXACIN IV 500mg qd <=0.12 S</content>
<content> LEVOFLOXACIN PO 250mg qd <=0.12 S</content>
<content>LEVOFLOXACIN PO 500mg qd <=0.12 S</content>
<content>TOBRAMYCIN IV 80mg q8h <=1 S</content>
<content>CEFTRIAXONE IV 1gm q24h <=1 S</content>
<content>CEFTAZIDIME IV 1gm q8h <=1 S</content>
<content>AMPICILLIN/SULBACTAM IV 1.5g q6h 4 S</content>
<content>PIPERACILLIN/TAZOBACTAM IV 2.25 gm q6h <=4 S</content>
<content>AZTREONAM IV 1gm q8h <=1 S</content>
<content>ERTAPENEM IV 1gm qd <=0.5 S</content>
<content>MEROPENEM IV 1 gm q8h <=0.25 S</content>
<content> MEROPENEM IV 500 mg q8h <=0.25 S</content>
<content>TIGECYCLINE IV 50mg q12h <=0.5 S</content>
<content>CEFEPIME IV 1 gm q12h <=1 S</content>
<content>CEFEPIME IV 2 gm q12h <=1 S</content>
<content>EXTD BRD SPCTRM BETA LACTAMASE IV NEGATIVE FOR ESBL</content>
<content></content>
<content>STREPTOCOCCUS MITIS: REACTION</content>
<content>TETRACYCLINE PO 250 mg qid 0.5 S</content>
<content>PENICILLIN G IV 1 mu q6H 0.12 S</content>
<content> PENICILLIN G IV 1 mu q6h 0.12 S</content>
<content>PENICILLIN G PO 250mg q6h fasting 0.12 S</content>
<content>AMPICILLIN IV 500mg q6h <=0.25 S</content>
<content>AMPICILLIN PO 500mg q6h fasting <=0.25 S</content>
<content> CLINDAMYCIN IV 600mg q6h <=0.25 S</content>
<content>CLINDAMYCIN PO 150mg q6h <=0.25 S</content>
<content>LEVOFLOXACIN IV 500mg qd 1 S</content>
<content>LEVOFLOXACIN PO 250mg qd 1 S</content>
<content>LEVOFLOXACIN PO 500mg qd 1 S</content>
<content>VANCOMYCIN IV 500mg q8h 0.5 S</content>
<content>MOXIFLOXACIN (AVELOX) IV 400MG QD 0.12 S</content>
<content>MOXIFLOXACIN (AVELOX) PO 400MG QD 0.12 S</content>
<content>CEFTRIAXONE IV 1gm q24h 0.25 S</content>
<content>CEFOTAXIME IV 1gm q8h <=0.12 S</content>
<content></content> ID Date Data Source [id number] 05/18/2020 11:46:[address] [facility] ([facility] ) Name Value Range Interpretation Code Description Data Aydee rce(s) Supporting Document(s) Glucose [Mass/volume] in Serum or Plasma [address] [facility] ([facility]) Hemoglobin A1c/Hemoglobin.total in Blood 8.[address] [facility] ([facility]) ID Date Data Source [id number] 03/26/2020 10:15:00 AM EDT [facility] Name Value Range Interpretation Code Description Data Aydee rce(s) Supporting Document(s) SARS CORONAVIRUS 2 RNA [facility] This lab was ordered by [facility] and reported by [facility]. ID Date Data Source [id number] 03/26/2020 10:15:[address] [facility] ([facility]) Name Value Range Interpretation Code Description Data Aydee rce(s) Supporting Document(s) Laboratory test finding (navigational concept) Laboratory test result [facility]) Testing was performed using the conrad(R) SARS-CoV-2 test. This test was developed and its performance characteristics determined by [employer]. This test has not been FDA cleared or approved. This test has been authorized by FDA under an Emergency Use Authorization (EUA). This test is only authorized for the duration of time the declaration that circumstances exist justifying the authorization of the emergency use of in vitro diagnostic tests for detection of SARS-CoV-2 virus and/or diagnosis of COVID-19 infection under section 564(b)(1) of the Act, 21 U.S.C. 360bbb-3(b)(1), unless the authorization is terminated or revoked sooner. When diagnostic testing is negative, the possibility of a false negative result should be considered in the context of a patient's recent exposures and the presence of clinical signs and symptoms consistent with COVID-19. An individual without symptoms of COVID-19 and who is not shedding SARS-CoV-2 virus would expect to have a negative (not detected) result in this assay. Performed at: [facility] [id number] Orthopedic Radiologic Technologist: Joycelyn Edge MD, Phone: [phone] Not Detected ID Date Data Source [id number] 03/26/2020 10:02:00 AM EDT [facility] ([facility]) Name Value Range Interpretation Code Description Data Aydee rce(s) Supporting Document(s) Platelets [#/volume] in Blood by Automated count 175 10 150-450 [facility] ([facility]) ID Date Data Source [id number] 03/26/2020 10:02:00 AM EDT [facility] ([facility]) Name Value Range Interpretation Code Description Data Aydee rce(s) Supporting Document(s) Prothrombin Time 15.6 s 11.8-14.0 [facility] ([facility]) Partial Thromboplastin Time 35.6 s 25.0-38.4 [facility] ([facility]) Inr 1.27 [facility] ([facility]) THERAPUTIC HUMAN INR VALUES INDICATIONS NORMAL RANGES PROPHYLAXIS/TREATMENT OF: VENOUS THROMBOSIS 2.0-3.0 PULMONARY EMBOLISM 2.0-3.0 PREVENTION OF SYSTEMIC EMBOLISM FROM: TISSUE HEART VALVES 2.0-3.0 ACUTE MYOCARDIAL INFARCTION 2.0-3.0 VALVULAR HEART DISEASE 2.0-3.0 ATRIAL FIBRILLATION 2.0-3.0 MECHANICAL VALVES(HIGH RISK) 2.5-3.5 RECURRENT MYOCARDIAL INFARCTION 2.5-3.5 ID Date Data Source [id number] 01/01/2020 09:10:00 AM EDT [facility] ([facility]) Name Value Range Interpretation Code Description Data Aydee rce(s) Supporting Document(s) Magnesium Level 1.57 [facility] ([facility]) ID Date Data Source [id number] 01/01/2020 09:10:00 AM EDT [facility] ([facility] Name Value Range Interpretation Code Description Data Aydee rce(s) Supporting Document(s) White Blood Count 7.9 5.0-10.0 [facility] ([facility]) Platelets 317 172-450 [facility] Red Blood Count 4.91 4.70-6.10 [facility] Hemoglobin 14.9 14.0-18.0 [facility] ([facility]) Hematocrit 45.5 42.0-52.0 [facility] ([facility]) ID Date Data Source [id number] 01/01/2020 09:10:00 AM EDT [facility] ([facility]) Name Value Range Interpretation Code Description Data Aydee rce(s) Supporting Document(s) Blood Urea Nitrogen 16.0 7-25 [facility] ([facility]) Glucose 373 70-100 [facility] Creatinine 0.78 0.6-1.4 [facility] ([facility]) Glomerular filtration rate/1.73 sq M.pre dicted [Volume Rate/Area] in Serum or Plasma by Creatinine-based formula (MDRD) 98 [facility] ([facility]) Sodium 134.6 135-145 [facility] Potassium 4.18 3.5-5.3 [facility] Chloride 98.5 98-110 [facility] Carbon Dioxide 29.9 20-32 [facility] ([facility]) Albumin 4.0 3.5-4.7 [facility] ([facility] Calcium 8.79 8.4-10.4 [facility] Phosphorus 2.69 [facility] ID Date Data Source [id number] 12/17/2019 01:39:00 PM EST [facility] ([facility]) Name Value Range Interpretation Code Description Data Aydee rce(s) Supporting Document(s) Prothrombin Time 14.0 s 11.8-14.0 [facility] ([facility]) Partial Thromboplastin Time 34.2 s 25.0-38.4 [facility] ([facility]) Inr 1.11 [facility] ([facility]) THERAPUTIC HUMAN INR VALUES INDICATIONS NORMAL RANGES PROPHYLAXIS/TREATMENT OF: VENOUS THROMBOSIS 2.0-3.0 PULMONARY EMBOLISM 2.0-3.0 PREVENTION OF SYSTEMIC EMBOLISM FROM: TISSUE HEART VALVES 2.0-3.0 ACUTE MYOCARDIAL INFARCTION 2.0-3.0 VALVULAR HEART DISEASE 2.0-3.0 ATRIAL FIBRILLATION 2.0-3.0 MECHANICAL VALVES(HIGH RISK) 2.5-3.5 RECURRENT MYOCARDIAL INFARCTION 2.5-3.5 ID Date Data Source [id number] 12/17/2019 01:39:00 PM EST [facility] ([facility]) Name Value Range Interpretation Code Description Data Aydee rce(s) Supporting Document(s) Platelets [#/volume] in Blood by Automated count 216 10 150-450 [facility] ([facility]) ID Date Data Source [id number] 12/11/2019 01:58:00 PM EST [facility] ([facility]) Name Value Range Interpretation Code Description Data Aydee rce(s) Supporting Document(s) Laboratory test finding (navigational concept) Laboratory test result [facility] ([facility]) ID Date Data Source [id number] 11/04/2019 02:49:00 PM EST [facility] ([facility] Name Value Range Interpretation Code Description Data Aydee rce(s) Supporting Document(s) Magnesium Level 1.7 [facility] ([facility]) ID Date Data Source [id number] 11/04/2019 02:49:00 PM EST [facility] ([facility]) Name Value Range Interpretation Code Description Data Aydee rce(s) Supporting Document(s) Cholesterol 132 120-200 [facility] ([facility]) HDL 72 40-60 [facility] Triglycerides 71 [facility] ([facility]) Chol/HDL Ratio 1.833 [facility] ([facility]) Cholesterol in LDL [Mass/volume] in Serum or Plasma by calculation 46 [facility] ([facility]) ID Date Data Source [id number] 11/04/2019 02:49:00 PM EST [facility] ([facility]) Name Value Range Interpretation Code Description Data Aydee rce(s) Supporting Document(s) Thyroid Stimulating Hormone 2.160 [facility] ([facility]) ID Date Data Source [id number] 11/04/2019 02:49:00 PM EST [facility] ([facility]) Name Value Range Interpretation Code Description Data Aydee rce(s) Supporting Document(s) Albumin [Mass/volume] in Serum or Plasma 4.1 [facility] ([facility]) Alanine aminotransferase [Enzymatic activity/volume] in Serum or Pl asma 26 [facility] ([facility]) Carbon dioxide, total [Moles/volume] in Serum or Plasma 27 [facility] ([facility]) Calcium [Mass/volume] in Serum or Plasma 9.5 [facility] ([facility]) Chloride [Moles/volume] in Serum or Plasma 103 [facility] ([facility]) Protein [Mass/volume] in Serum or Plasma 7.6 [facility] ([facility]) Alkaline phosphatase [Enzymatic activity/volume] in Serum or Plasma 1 27 [facility] ([facility]) Potassium [Moles/volume] in Serum or Plasma 4.4 [facility] ([facility]) Sodium 139 [facility] Aspartate aminotransferase [Enzymatic activity/volume] in Serum or Plasma 21 [facility] ([facility]) Urea nitrogen [Mass/volume] in Serum or Plasma 14 [facility] ([facility]) Glucose 189 70-100 [facility]) Creatinine For GFR 1.03 [facility] ([facility]) ID Date Data Source [id number] 11/04/2019 02:49:00 PM EST [facility] ([facility]) Name Value Range Interpretation Code Description Data Aydee rce(s) Supporting Document(s) Platelets 268 150-450 [facility]) Red Blood Count 4.95 4.30-6.10 [facility] ([facility]) White Blood Count 9.0 4.0-10.0 [facility] ([facility]) Hematocrit 43.0 42.0-52.0 [facility] ([facility]) Hemoglobin 13.7 13.5-17.5 [facility] ([facility]) ID Date Data Source [id number] LEVEL 11/04/2019 12:00:00 AM EST [facility]1 ([facility]) Name Value Range Interpretation Code Description Data Aydee rce(s) Supporting Document(s) 1.7 1.8-2.4 MAGNESIUM LEVEL [facility]1 ([facility]) ID Date Data Source TOTAL IRON BINDING CAPACIT 11/04/2019 12:00:00 AM EST [facility]1 ( [facility]) Name Value Range Interpretation Code Description Data Aydee rce(s) Supporting Document(s) 37 65-175 IRON (FE) [facility]1 ([facility]) 400 250-450 TOTAL IRON BINDING CAPACI TY [facility]1 ([facility]) 9.3 19.7-50.0 PERCENT SATURATION eCW1 ([facility]) ID Date Data Source FERRITIN 11/04/2019 12:00:00 AM EST [facility]1 ([facility]) Name Value Range Interpretation Code Description Data Aydee rce(s) Supporting Document(s) 9 26-388 FERRITIN [facility]1 ([facility]) ID Date Data Source [id number] 11/04/2019 12:00:00 AM EST [facility]1 ([facility]) Name Value Range Interpretation Code Description Data Aydee rce(s) Supporting Document(s) 9.0 4.0-10.0 WHITE BLOOD COUNT eCW1 ([facility]) 4.95 4.30-6.10 RED BLOOD COUNT eCW1 ([facility]) 13.7 13.5-17.5 HEMOGLOBIN eCW1 ([facility]) 43.0 42.0-52.0 HEMATOCRIT eCW1 ([facility]) 86.9 80.0-96.0 MEAN CORPUSCULAR VOLUME e CW1 ([facility]) 27.7 27.0-33.0 MEAN CORPUSCULAR HEMOGLOB IN eCW1 ([facility]) 268 150-450 PLATELET COUNT, AUTOMATED e[facility]1 ([facility]) 15.9 11.5-14.5 RED CELL DISTRIBUTION WID TH eCW1 ([facility]) 31.9 32.0-36.5 MEAN CORPUSCULAR HGB CONC e[facility]1 ([facility]) ID Date Data Source [id number] 11/03/2019 12:10:00 PM EST [facility] ([facility]) Name Value Range Interpretation Code Description Data Aydee rce(s) Supporting Document(s) Hemoglobin A1c/Hemoglobin.total in Blood 10.5 [facility] ([facility]) Glucose [Mass/volume] in Serum or Plasma 258 [facility] ([facility]) ID Date Data Source [id number] 10/01/2019 11:44:00 AM EST [facility] ([facility]) Name Value Range Interpretation Code Description Data Aydee rce(s) Supporting Document(s) Magnesium Level 1.46 [facility] ([facility]) ID Date Data Source [id number] 10/01/2019 11:44:00 AM EST [facility] ([facility] Name Value Range Interpretation Code Description Data Aydee rce(s) Supporting Document(s) Creatinine 1.13 0.6-1.4 [facility] ([facility]) Blood Urea Nitrogen 15.4 7-25 [facility] ([facility] Glucose 365 70-100 [facility] Sodium 131.2 136-145 [facility] Glomerular filtration rate/1.73 sq M.pre dicted [Volume Rate/Area] in Serum or Plasma by Creatinine-based formula (MDRD) 64 [facility] ([facility]) Potassium 4.15 3.5-5.3 [facility] Chloride 99.7 94-110 [facility] Carbon Dioxide 28.4 22-33 [facility] ([facility]) Calcium 9.44 8.7-10.5 [facility] Albumin 3.9 3.5-4.7 [facility] Phosphorus 2.61 [facility] ([facility]) Procedure Social History Code Duration Value Status Description Data Source(s ) Smoking 11/01/2020 12:00:00 AM EST Patient is a former smoker completed Patient is a former smoker [facility] ([facility]) Smoking 10/25/2020 12:00:00 AM EST Former Smoker completed Former Smoker eCW1 ([facility]) Smoking 10/25/2020 12:00:00 AM EST Former Smoker completed Former Smoker [facility]CW1 ([facility]) Smoking 10/25/2020 12:00:00 AM EST Former Smoker completed Former Smoker eCW1 ([facility]) Smoking 10/25/2020 12:00:00 AM EST Former Smoker completed Former Smoker eCW1 ([facility]) Smoking 10/25/2020 12:00:00 AM EST Former Smoker completed Former Smoker eCW1 ([facility]) Smoking 10/25/2020 12:00:00 AM EST Former Smoker completed Former Smoker eCW1 ([facility]) Smoking 10/25/2020 12:00:00 AM EST Former Smoker completed Former Smoker eCW1 ([facility]) Smoking 10/19/2020 12:00:00 AM EST Former Smoker completed Former Smoker eCW1 ([facility]) Smoking 10/19/2020 12:00:00 AM EST Former Smoker completed Former Smoker eCW1 ([facility]) Smoking 10/19/2020 12:00:00 AM EST Former Smoker completed Former Smoker eCW1 ([facility]) Smoking 10/06/2020 12:00:00 AM EST Former Smoker completed Former Smoker eCW1 ([facility]) Smoking 10/06/2020 12:00:00 AM EST Former Smoker completed Former Smoker eCW1 ([facility]) Smoking 10/06/2020 12:00:00 AM EST Former Smoker completed Former Smoker eCW1 ([facility]) Smoking 10/06/2020 12:00:00 AM EST Former Smoker completed Former Smoker eCW1 ([facility]) Smoking 10/06/2020 12:00:00 AM EST Former Smoker completed Former Smoker eCW1 ([facility]) Smoking 09/21/2020 12:00:00 AM EST Former Smoker completed Former Smoker eCW1 ([facility]) Smoking 08/18/2020 12:00:00 AM EDT Former Smoker completed Former Smoker eCW1 ([facility]) Smoking 08/18/2020 12:00:00 AM EDT Former Smoker completed Former Smoker eCW1 ([facility]) Smoking 08/18/2020 12:00:00 AM EDT Former Smoker completed Former Smoker eCW1 ([facility]) Smoking 08/18/2020 12:00:00 AM EDT Former Smoker completed Former Smoker eCW1 ([facility]) Smoking 08/18/2020 12:00:00 AM EDT Former Smoker completed Former Smoker eCW1 ([facility]) Smoking 08/18/2020 12:00:00 AM EDT Former Smoker completed Former Smoker eCW1 ([facility]) Smoking 08/18/2020 12:00:00 AM EDT Former Smoker completed Former Smoker eCW1 ([facility]) Smoking 08/18/2020 12:00:00 AM EDT Former Smoker completed Former Smoker eCW1 ([facility]) Smoking 08/04/2020 12:00:00 AM EDT Former Smoker completed Former Smoker eCW1 ([facility]) Smoking 08/04/2020 12:00:00 AM EDT Former Smoker completed Former Smoker eCW1 ([facility]) Smoking 08/04/2020 12:00:00 AM EDT Former Smoker completed Former Smoker eCW1 ([facility]) Smoking 08/04/2020 12:00:00 AM EDT Former Smoker completed Former Smoker eCW1 ([facility]) Smoking 08/04/2020 12:00:00 AM EDT Former Smoker completed Former Smoker eCW1 ([facility]) Smoking 07/28/2020 12:00:00 AM EDT Former Smoker completed Former Smoker eCW1 ([facility]) Smoking 07/28/2020 12:00:00 AM EDT Former Smoker completed Former Smoker eCW1 ([facility]) Smoking 07/28/2020 12:00:00 AM EDT Former Smoker completed Former Smoker eCW1 ([facility]) Smoking 07/26/2020 12:00:00 AM EDT Patient is a former smoker completed Patient is a former smoker MEDENT ([facility]) Smoking 07/21/2020 12:00:00 AM EDT Former Smoker completed Former Smoker eCW1 ([facility]) Smoking 02/06/2020 12:00:00 AM EDT Former Smoker completed Former Smoker eCW1 ([facility]) Smoking 02/06/2020 12:00:00 AM EDT Former Smoker completed Former Smoker eCW1 ([facility]) Vital Signs ID Date Data Source UNK Name Value Range Interpretation Code Description Data Source(s) Body mass index (BMI) [Ratio] 20.4 kg/m2 20.4 k g/m2 MEDENT ([facility] ) Body weight 158.56 [lb_av] 158.56 [lb_av] MEDEN T ([facility]) stated--in wheelchair Body height 74 [in_i] 74 [in_i] MEDENT ([facility]) 6'2" Body temperature 97.3 [degF] 97.3 [degF] MEDENT ([facility]) Diastolic blood pressure 84 mm[Hg] 84 mm[Hg] MEDENT ([facility] ) Systolic blood pressure 136 mm[Hg] 136 mm[Hg] M EDENT ([facility] ) Diastolic blood pressure 76 mm[Hg] 76 mm[Hg] eCW1 ([facility]) Systolic blood pressure 130 mm[Hg] 130 mm[Hg] e CW1 ([facility]) Body temperature 95 [degF] 95 [degF] eCW1 ([facility]) Respiratory rate 18 /min 18 /min eCW1 ([facility]) Heart rate 64 /min 64 /min eCW1 ([facility]) Body mass index (BMI) [Ratio] 19.23 kg/m2 19.23 kg/m2 eCW1 ([facility]) Body height [in_i] eCW1 ([facility]) Body weight kg eCW1 ([facility]) Body weight 158 [lb_av] 158 [lb_av] eCW1 ([facility]) Diastolic blood pressure 68 mm[Hg] 68 mm[Hg] eCW1 ([facility]) Systolic blood pressure 120 mm[Hg] 120 mm[Hg] e CW1 ([facility]) Body temperature 97.3 [degF] 97.3 [degF] eCW1 ( [facility]) Respiratory rate 18 /min 18 /min eCW1 ([facility]) Heart rate 121 /min 121 /min eCW1 ([facility]) Body mass index (BMI) [Ratio] 19.23 kg/m2 19.23 kg/m2 eCW1 ([facility]) Body height [in_i] eCW1 ([facility]) Body weight 158 [lb_av] 158 [lb_av] eCW1 ([facility]) Diastolic blood pressure 73 mm[Hg] 73 mm[Hg] eCW1 ([facility]) Systolic blood pressure 130 mm[Hg] 130 mm[Hg] e CW1 ([facility]) Body temperature 96.4 [degF] 96.4 [degF] eCW1 ( [facility]) Respiratory rate 16 /min 16 /min eCW1 ([facility]) Heart rate 124 /min 124 /min eCW1 ([facility]) Body mass index (BMI) [Ratio] 19.23 kg/m2 19.23 kg/m2 eCW1 ([facility]) Body height [in_i] eCW1 ([facility]) Body weight kg eCW1 ([facility]) Body weight 158 [lb_av] 158 [lb_av] eCW1 ([facility]) Body temperature 96.4 [degF] 96.4 [degF] eCW1 ( [facility]) Respiratory rate 16 /min 16 /min eCW1 ([facility]) Body mass index (BMI) [Ratio] 19.23 kg/m2 19.23 kg/m2 eCW1 ([facility]) Body height [in_i] eCW1 ([facility]) Body weight kg eCW1 ([facility]) Body weight 158 [lb_av] 158 [lb_av] eCW1 ([facility]) Body surface area Derived from formula 1.95 m2 1.95 m2 MEDLUZ ([facility]) Body weight 69.854 kg [address] [facility] ([facility]) [place] body weight 190 [lb_av] 190 [lb_av] MEDEN T ([facility]) Body mass index (BMI) [Ratio] 19.5 kg/m2 19.5 k g/m2 [facility] ([facility]) Body weight 154.00 [lb_av] 154.00 [lb_av] MEDEN T ([facility]) Body height 74.5 [in_i] 74.5 [in_i] [facility] ([facility]) 6'2.50" Diastolic blood pressure 81 mm[Hg] 81 mm[Hg] [facility] ([facility]) Systolic blood pressure 121 mm[Hg] 121 mm[facility]Hg[facility] Diastolic blood pressure 84 mm[Hg] 84 mm[Hg] eCW1 ([facility]) Systolic blood pressure 145 mm[Hg] 145 mm[Hg] e CW1 ([facility]) Body temperature 97.2 [degF] 97.2 [degF] eCW1 ( [facility]) Respiratory rate 16 /min 16 /min eCW1 ([facility]) Heart rate 84 /min 84 /min eCW1 ([facility]) Body mass index (BMI) [Ratio] 19.23 kg/m2 19.23 kg/m2 eCW1 ([facility]) Body height [in_i] eCW1 ([facility]) Body weight 158 [lb_av] 158 [lb_av] eCW1 ([facility]) Diastolic blood pressure 81 mm[Hg] 81 mm[Hg] eCW1 ([facility]) Systolic blood pressure 141 mm[Hg] 141 mm[Hg] e CW1 ([facility]) Body temperature 97.2 [degF] 97.2 [degF] eCW1 ( [facility]) Respiratory rate 17 /min 17 /min eCW1 ([facility]) Heart rate 91 /min 91 /min eCW1 ([facility]) Body mass index (BMI) [Ratio] 19.23 kg/m2 19.23 kg/m2 eCW1 ([facility]) Body height [in_i] eCW1 ([facility]) Body weight kg eCW1 ([facility]) Body weight 158 [lb_av] 158 [lb_av] eCW1 ([facility]) Body mass index (BMI) [Ratio] 21.6 kg/m2 21.6 k g/m2 MEDENT ([facility]) Body weight 168.50 [lb_av] 168.50 [lb_av] MEDEN T ([facility]) Body height 74 [in_i] 74 [in_i] MEDENT ([facility]) 6'2" Body temperature 97.6 [degF] 97.6 [degF] MEDENT ([facility]) Diastolic blood pressure 80 mm[Hg] 80 mm[Hg] MEDENT ([facility]) Systolic blood pressure 134 mm[Hg] 134 mm[Hg] M EDENT ([facility]) Diastolic blood pressure 78 mm[Hg] 78 mm[Hg] eCW1 ([facility]) Systolic blood pressure 151 mm[Hg] 151 mm[Hg] e CW1 ([facility]) Body temperature 95.6 [degF] 95.6 [degF] eCW1 ( [facility]) Respiratory rate 18 /min 18 /min eCW1 ([facility]) Heart rate 83 /min 83 /min eCW1 ([facility]) Body mass index (BMI) [Ratio] 19.23 kg/m2 19.23 kg/m2 eCW1 ([facility]) Body height [in_i] eCW1 ([facility]) Body weight kg eCW1 ([facility]) Body weight 158 [lb_av] 158 [lb_av] eCW1 ([facility]) Diastolic blood pressure 68 mm[Hg] 68 mm[Hg] eCW1 ([facility]) Systolic blood pressure 136 mm[Hg] 136 mm[Hg] e CW1 ([facility]) Body temperature 96.4 [degF] 96.4 [degF] eCW1 ( [facility]) Respiratory rate 18 /min 18 /min eCW1 ([facility]) Heart rate 82 /min 82 /min eCW1 ([facility]) Body mass index (BMI) [Ratio] 19.23 kg/m2 19.23 kg/m2 eCW1 ([facility]) Body height [in_i] eCW1 ([facility]) Body weight kg eCW1 ([facility]) Body weight 158 [lb_av] 158 [lb_av] eCW1 ([facility]) Diastolic blood pressure 65 mm[Hg] 65 mm[Hg] eCW1 ([facility]) Systolic blood pressure 120 mm[Hg] 120 mm[Hg] e CW1 ([facility]) Body temperature 97.6 [degF] 97.6 [degF] eCW1 ( [facility]) Respiratory rate 18 /min 18 /min eCW1 ([facility]) Heart rate 89 /min 89 /min eCW1 ([facility]) Body mass index (BMI) [Ratio] 19.30 kg/m2 19.30 kg/m2 eCW1 ([facility]) Body height [in_i] eCW1 ([facility]) Body weight kg eCW1 ([facility]) Body weight 158.6 [lb_av] 158.6 [lb_av] eCW1 ([facility]) Diastolic blood pressure 70 mm[Hg] 70 mm[Hg] MEDENT ([facility]) Systolic blood pressure 112 mm[Hg] 112 mm[Hg] M EDENT ([facility]) Diastolic blood pressure 74 mm[Hg] 74 mm[Hg] MEDENT ([facility]) sitting, regular cuff Systolic blood pressure 112 mm[Hg] 112 mm[Hg] M EDENT ([facility]) sitting, regular cuff Heart rate 80 /min 80 /min MEDENT ([facility] Regular Body mass index (BMI) [Ratio] 19.5 kg/m2 19.5 k g/m2 MEDENT ([facility]) Body height 76 [in_i] 76 [in_i] MEDENT [facility]) 6'4" Body weight 160.00 [lb_av] 160.00 [lb_av] MEDEN T ([facility]) Diastolic blood pressure 82 mm[Hg] 82 mm[Hg] eCW1 ([facility]) Systolic blood pressure 152 mm[Hg] 152 mm[Hg] e CW1 ([facility]) Body temperature 97.2 [degF] 97.2 [degF] eCW1 ( [facility]) Respiratory rate 18 /min 18 /min eCW1 ([facility]) Heart rate 93 /min 93 /min eCW1 ([facility]) Body mass index (BMI) [Ratio] 19.30 kg/m2 19.30 kg/m2 eCW1 ([facility]) Body height [in_i] eCW1 ([facility]) Body weight kg eCW1 ([facility]) Body weight 158.6 [lb_av] 158.6 [lb_av] eCW1 ([facility]) Diastolic blood pressure 84 mm[Hg] 84 mm[Hg] eCW1 ([facility]) Systolic blood pressure 130 mm[Hg] 130 mm[Hg] e CW1 ([facility]) Body temperature 96.6 [degF] 96.6 [degF] eCW1 ( [facility]) Respiratory rate 18 /min 18 /min eCW1 ([facility]) Heart rate 104 /min 104 /min eCW1 ([facility]) Body mass index (BMI) [Ratio] 19.30 kg/m2 19.30 kg/m2 W1 ([facility]) Body height [in_i] eCW1 ([facility]) Body weight 158.6 [lb_av] 158.6 [lb_av] eCW1 ([facility]) Diastolic blood pressure 80 mm[Hg] 80 mm[Hg] eCW1 ([facility]) Systolic blood pressure 185 mm[Hg] 185 mm[Hg] e CW1 ([facility]) Body temperature 97.1 [degF] 97.1 [degF] eCW1 ( [facility]) Respiratory rate 16 /min 16 /min eCW1 ([facility]) Heart rate 85 /min 85 /min eCW1 ([facility]) Body mass index (BMI) [Ratio] 20.08 kg/m2 20.08 kg/m2 eCW1 ([facility]) Body height [in_i] eCW1 ([facility]) Body weight 165 [lb_av] 165 [lb_av] eCW1 ([facility]) Oxygen saturation in Arterial blood by Pulse oximetry 100 % 100 % MEDENT ([facility] ) Body mass index (BMI) [Ratio] 21.6 kg/m2 21.6 k g/m2 MEDENT ([facility]) Body weight 168.38 [lb_av] 168.38 [lb_av] MEDEN T ([facility]) Body height 74 [in_i] 74 [in_i] MEDENT ([facility]) 6'2" Heart rate 69 /min 69 /min MEDENT ([facility]) Diastolic blood pressure 80 mm[Hg] 80 mm[Hg] MEDENT ([facility]) Systolic blood pressure 136 mm[Hg] 136 mm[Hg] M EDENT ([facility]) Body mass index (BMI) [Ratio] 22.0 kg/m2 22.0 k g/m2 MEDENT ([facility]) Body weight 171.00 [lb_av] 171.00 [lb_av] MEDEN T ([facility]) Body height 74 [in_i] 74 [in_i] MEDENT ([facility]) 6'2" Diastolic blood pressure 72 mm[Hg] 72 mm[Hg] eCW1 ([facility]) Systolic blood pressure 120 mm[Hg] 120 mm[Hg] e CW1 ([facility]) Body temperature 96.4 [degF] 96.4 [degF] eCW1 ( [facility]) Respiratory rate 18 /min 18 /min eCW1 ([facility]) Heart rate 73 /min 73 /min eCW1 ([facility]) Body mass index (BMI) [Ratio] 21.15 kg/m2 21.15 kg/m2 eCW1 ([facility]) Body height [in_us] eCW1 ([facility]) Body weight Measured 173.8 [lb_av] 173.8 [lb_av ] eCW1 ([facility]) Body mass index (BMI) [Ratio] 22.2 kg/m2 22.2 k g/m2 MEDENT ([facility]) Body weight 175.00 [lb_av] 175.00 [lb_av] MEDEN T ([facility]) Body height 74.50 [in_i] 74.50 [in_i] MEDENT ([facility]) 6'2.50" Diastolic blood pressure 66 mm[Hg] 66 mm[Hg] MEDENT ([facility]) Sitting Systolic blood pressure 122 mm[Hg] 122 mm[Hg] M EDENT ([facility]) Sitting Diastolic blood pressure 68 mm[Hg] 68 mm[Hg] MEDENT ([facility]) Sitting, regular cuff Systolic blood pressure 122 mm[Hg] 122 mm[Hg] M EDENT ([facility]) Sitting, regular cuff Respiratory rate 16 /min 16 /min MEDENT ( [facility]) Heart rate 84 /min 84 /min MEDENT ([facility] Regular Body mass index (BMI) [Ratio] 21.8 kg/m2 21.8 k g/m2 MEDENT ([facility]) Body height 76 [in_i] 76 [in_i] MEDENT ([facility] 6'4" Body weight 179.00 [lb_av] 179.00 [lb_av] MEDEN T ([facility]) Diastolic blood pressure 84 mm[Hg] 84 mm[Hg] eCW1 ([facility]) Systolic blood pressure 130 mm[Hg] 130 mm[Hg] e CW1 ([facility]) Body temperature 96.4 [degF] 96.4 [degF] eCW1 ( [facility]) Respiratory rate 18 /min 18 /min eCW1 ([facility]) Heart rate 129 /min 129 /min eCW1 ([facility]) Body mass index (BMI) [Ratio] 22.13 kg/m2 22.13 kg/m2 eCW1 ([facility]) Body height [in_us] eCW1 ([facility]) Body weight Measured 181.8 [lb_av] 181.8 [lb_av ] eCW1 ([facility]) Oxygen saturation in Arterial blood by Pulse oximetry 98 % 98 % MEDENT ([facility]) Body mass index (BMI) [Ratio] 23.4 kg/m2 23.4 k g/m2 MEDENT ([facility]) Body weight 182.38 [lb_av] 182.38 [lb_av] MEDEN T ([facility]) Body height 74 [in_i] 74 [in_i] MEDENT ([facility]) 6'2" Heart rate 122 /min 122 /min MEDENT ([facility]) Diastolic blood pressure 88 mm[Hg] 88 mm[Hg] MEDENT ([facility]) Systolic blood pressure 140 mm[Hg] 140 mm[Hg] M EDENT ([facility]) Patient Treatment Plan of Care Planned Activity Planned Date Details Description Data Source (s) Wheelchair - 10/19/2020 12:00:00 AM EST e CW1 ([facility]) Wheelchair - 10/19/2020 12:00:00 AM EST e CW1 ([facility]) Wheelchair - 10/19/2020 12:00:00 AM EST e CW1 ([facility]) sildenafil 100 MG Oral Tablet 03/25/2020 12:00:00 AM EDT eCW1 ([facility]) sildenafil 100 MG Oral Tablet 03/25/2020 12:00:00 AM EDT eCW1 ([facility]) ferrous sulfate 325 MG Oral Tablet 11/06/2019 12:00:00 AM EST eCW1 ([facility])
[2020-11-08 20:35] LABS: BASO # 0.1 10^3/uL (0.0-0.2); BASO % 0.6 % (0.0-1.0); EOS # 0.2 10^3/uL (0.0-0.5); EOS % 1.3 % (0.0-3.0); HEMATOCRIT 28.4 % (42.0-52.0); HEMOGLOBIN 9.1 g/dl (13.5-17.5); LYMPH % 25.1 % (24.0-44.0); MEAN CORPUSCULAR HEMOGLOBIN 25.4 pg (27.0-33.0); MEAN CORPUSCULAR VOLUME 79.3 fl (80.0-96.0); MONO # 0.9 10^3/uL (0.0-0.8); MONO % 7.3 % (0.0-5.0); NEUTROPHILS # 7.8 10^3/uL (1.5-8.5); NEUTROPHILS % 64.9 % (36.0-66.0); PLATELET COUNT, AUTOMATED 342 10^3/uL (150-450); RED BLOOD COUNT 3.58 10^6/uL (4.30-6.10)
--- OUTSIDE RECORDS SUMMARY | 2020-11-08 20:44 | CCD ---
Author Author [facility] Organization [facility] Address Unknown Phone Unavailable Care Team Providers Care Cloud Software Engineer Name Role Phone Saran Barros Unavailable Unavailable [...] Symenow, Malathi Dixie PA Unavailable Unavailable Symenow, Mlaathi Dixie PA Unavailable Unavailable Symenow, Malathi Dixie [...] ANTECOL, Julienne FRANKLIN MD Unavailable Unavailable Fish, [facility], PA-C Unavailable Unavailabl e Fish, [facility], PA-C Unavailable Unavailabl e Fish, [facility], PA-C Unavailable Unavailabl e Fish, [facility], PA-C Unavailable Unavailabl e Fish, [facility], PA-C Unavailable Unavailabl e Fish, [facility], PA-C Unavailable Unavailabl e Fish, [facility], PA-C Unavailable Unavailabl e Fish, [facility], PA-C Unavailable Unavailabl e Fish, [facility], PA-C Unavailable Unavailabl e Fish, [facility], PA-C Unavailable Unavailabl e Fish, [facility], PA-C Unavailable Unavailabl e Fish, [facility], PA-C Unavailable Unavailabl e Fish, [facility], PA-C Unavailable Unavailabl e Fish, [facility], PA-C Unavailable Unavailabl e Fish, [facility], PA-C Unavailable Unavailabl e Fish, [facility], PA-C Unavailable Unavailabl e Fish, [facility], PA-C Unavailable Unavailabl e Fish, [facility], PA-C Unavailable Unavailabl e Fish, [facility], PA-C Unavailable Unavailabl e Fish, [facility], PA-C Unavailable Unavailabl e Fish, [facility], PA-C Unavailable Unavailabl e Fish, [facility], PA-C Unavailable Unavailabl e Fish, [facility], PA-C Unavailable Unavailabl e Fish, [facility], PA-C Unavailable Unavailabl e Fish, [facility], PA-C Unavailable Unavailabl e Fish, [facility], PA-C Unavailable Unavailabl e Fish, [facility], PA-C Unavailable Unavailabl e Fish, [facility], PA-C Unavailable Unavailabl e Fish, [facility], PA-C Unavailable Unavailabl e Fish, [facility], PA-C Unavailable Unavailabl e Fish, [facility], PA-C Unavailable Unavailabl e Fish, [facility], PA-C Unavailable Unavailabl e Fish, [facility], PA-C Unavailable Unavailabl e MAJAK, Radha CLANCY [...] MAJAK, R JULIETH DPM Unavailable Unavailable Fish, [facility], PA-C Unavailable Unavailabl e Fish, [facility], PA-C Unavailable Unavailabl e Fish, [facility], PA-C Unavailable Unavailabl e Fish, [facility], PA-C Unavailable Unavailabl e Fish, [facility], PA-C Unavailable Unavailabl e Fish, [facility], PA-C Unavailable Unavailabl e Fish, [facility], PA-C Unavailable Unavailabl e Fish, [facility], PA-C Unavailable Unavailabl e Fish, [facility], PA-C Unavailable Unavailabl e Fish, [facility], PA-C Unavailable Unavailabl e Fish, [facility], PA-C Unavailable Unavailabl e Fish, [facility], PA-C Unavailable Unavailabl e Fish, [facility], PA-C Unavailable Unavailabl e Fish, [facility], PA-C Unavailable Unavailabl e Fish, [facility], PA-C Unavailable Unavailabl e Fish, [facility], PA-C Unavailable Unavailabl e Fish, [facility], PA-C Unavailable Unavailabl e Fish, [facility], PA-C Unavailable Unavailabl e Fish, [facility], PA-C Unavailable Unavailabl e Fish, [facility], PA-C Unavailable Unavailabl e Fish, [facility], PA-C Unavailable Unavailabl e Fish, [facility], PA-C Unavailable Unavailabl e Fish, [facility], PA-C Unavailable Unavailabl e Fish, [facility], PA-C Unavailable Unavailabl e Fish, [facility], PA-C Unavailable Unavailabl e Fish, [facility], PA-C Unavailable Unavailabl e Fish, [facility], PA-C Unavailable Unavailabl e Fish, [facility], PA-C Unavailable Unavailabl e Fish, [facility], PA-C Unavailable Unavailabl e Fish, [facility], PA-C Unavailable Unavailabl e Fish, [facility], PA-C Unavailable Unavailabl e Fish, [facility], PA-C Unavailable Unavailabl e Fish, [facility], PA-C Unavailable Unavailabl e Fish, B Harry [...] TURRIN, CEDRICK Unavailable Unavailable Fish, B Deborah PHLIIP Unavailable Unavailable Fish, B Deborah PHILIP Unavailable [...] Boyd Cabrera MD Unavailable Unavailable Juan M Duavll MD Unavailable Unavailable Juan M Duvall MD [...] Marquez MD Unavailable Unavailable Ferenchak, Juan M aMrquez MD Unavailable Unavailable Ferenchak, Juan M Marquez [...] is protected by Article 27-F of the [facility] Public Health law. If you continue you may have access to information: Regarding HIV / AIDS; Provided by facilities licensed or operated by the [facility] Office of Mental Health; or Provided by the [facility] Office for People With Developmental Disabilities. If such information is present, then the following [facility] mandated warning applies: This information has been [...] law may result in a fine or nursing home sentence or both. A general authorization for the release of medical or other information is NOT sufficient authorization for further disc losure. Allergies and Adverse Reactions Type Description Substance Reaction Status Data Source(s ) No Known Allergies No Known Allergies [facility] Environmental Environmental Environmental Unknown Active eCW1 ([facility]) Environmental Environmental Environmental Unknown Active eCW1 ([facility]) Family History Family Member Name Family Member Gender Family Member Status Date o f Status Description Data Source(s) Unknown Unknown Problem MEDENT ([facility]) Unknown Male Problem MEDENT ([facility]) Unknown Unknown Problem MEDENT ([facility]) Unknown Female Problem MEDENT ([facility]) Unknown Female Problem MEDENT ([facility] Encounters Encounter Providers Location Date Indications Data Source(s ) Unknown [address] [facility] [address] 10/28/2020 12:00:00 AM EST [facility] [place] [address] [facility] [place] [address] 10/25/2020 12:00:00 AM EST eCW1 ([facility]) [place]patient [address] [facility] [place] [address] 10/25/2020 12:00:00 AM EST eCW1 ([facility]) Unknown [address] [facility] [place] [address] 10/25/2020 12:00:00 AM EST eCW1 ([facility]) [place] [address] [facility] [address] 10/25/2020 12:00:00 AM EST eCW1 ([facility]) [place] [address] [facility] [address] 10/19/2020 12:00:00 AM EST eCW1 ([facility]) ([id number]) For Template [employer] [address] [place] [address] 10/19/2020 12:00:00 AM EST eCW1 ([facility]) [place] [address] [facility] [address] 10/19/2020 12:00:00 AM EST eCW1 ([facility]) [place] [address] [facility] [address] 10/18/2020 12:00:00 AM EST eCW1 ([facility]) [place] [address] [facility] [address] 10/18/2020 12:00:00 AM EST eCW1 ([facility]) [place] [address] [facility] [address] 10/14/2020 12:00:00 AM EST eCW1 ([facility]) [place] [address] [facility] [address] 10/11/2020 12:00:00 AM EST eCW1 ([facility]) [place] [address] [facility] [address] 10/07/2020 12:00:00 AM EST eCW1 ([facility]) ([id number]) For [employer] [address] [place] [address] 10/06/2020 12:00:00 AM EST eCW1 ([facility]) ([id number]) For [employer] [address] [place] [address] 09/29/2020 12:00:00 AM EST eCW1 ([facility]) Outpatient [address] [facility] [address] 09/21/2020 12:00:00 AM EST eCW1 ([facility]) Unknown [address] [facility] [address] 09/08/2020 12:00:00 AM EST eCW1 ([facility]) Unknown [address] [facility] [address] 09/01/2020 12:00:00 AM EST eCW1 ([facility]) Unknown [address] [facility] [address] 08/25/2020 12:00:00 AM EST [facility]CW1 [facility] Unknown [address] [facility] [address] 08/24/2020 12:00:00 AM EST eCW1 ([facility]) Outpatient Attender: Deborah Caldwell MD Physical Therapy 08/20 01:30:00 PM EDT MEDENT ([facility]) Unknown [address] [facility] [address] 08/20/2020 12:00:00 AM EDT [facility]CW1 [facility] ([id number]) For [employer] [address] [place] [address] 08/18/2020 12:00:00 AM EDT eCW1 ([facility]) Unknown [address] [facility] [address] 08/18/2020 12:00:00 AM EDT eCW1 ([facility]) Unknown [address] [facility] [place] [address] 08/18/2020 12:00:00 AM EDT eCW1 [facility] Office Visit Attender: RIGOBERTO HERRERA MD Main Office 08/13/2020 10: 06:00 AM EDT MEDENT ([facility]) ([id number]) For [employer] [address] [place] [address] 08/04/2020 12:00:00 AM EDT eCW1 ([facility]) Unknown [address] [facility] [place] [address] 08/02/2020 12:00:00 AM EDT eCW1 ([facility]) Unknown [address] [facility] [place] [address] 07/30/2020 12:00:00 AM EDT eCW1 ([facility]) ([id number]) For [employer] [address] [place] [address] 07/28/2020 12:00:00 AM EDT eCW1 ([facility]) Unknown [address] [facility] [place] [address] 07/28/2020 12:00:00 AM EDT eCW1 ([facility]) Outpatient Attender: Dixie RAMIREZ Main Office 07/26/2020 10:45:00 AM EDT MEDENT ([facility]) Office Visit, Est Pt., Level 3 FC [address] [place] [address] 07/23/2020 12:00:00 AM EDT eCW1 ([facility]) Office Visit, Est Pt., Level 3 PC [address] [place] [address] 07/22/2020 12:00:00 AM EDT eCW1 ([facility]) Outpatient [address] [facility] [address] 07/21/2020 12:00:00 AM EDT eCW1 ([facility]) Office Visit Attender: RIGOBERTO HERRERA MD Main Office 07/08/2020 10: 43:00 AM EDT MEDENT ([facility]) Outpatient Attender: JULIETH BURDICK [facility] Office 12/2019 01:30:00 PM EDT MEDENT ([facility] Emergency Attender: CEDRICK Hernandezsultant: Jimmy dahl MD 06/09/2020 01:20:00 PM EDT - 06/09/[facility] Attender: JULIETH BURDICK [facility] Office 05/22 01:15:00 PM EDT MEDENT ([facility] Outpatient Attender: Deborah Caldwell MD Physical Therapy 05/18 11:30:00 AM EDT MEDENT ([facility]) Unknown [address] [facility] [place] [address] 05/14/2020 12:00:00 AM EDT eCW1 ([facility]) [facility] [address] [facility] [place] [address] 05/14/2020 12:00:00 AM EDT eCW1 ([facility]) Unknown [address] [facility] [place] [address] 05/10/2020 12:00:00 AM EDT eCW1 ([facility]) Outpatient Attender: JULIETH BURDICK [facility] Office 06/2020 10:30:00 AM EDT MEDENT ([facility] Unknown [address] [facility] [place] [address] 03/25/2020 12:00:00 AM EDT eCW1 [facility] Outpatient Attender: Becky HANSON PA-C Physical Therapy 02/24/2020 10:30:00 AM EDT MEDENT ([facility]) [facility] [address] [facility] [place] [address] 02/17/2020 12:00:00 AM EDT eCW1 ([facility]) Outpatient Referrer: Becky HANSON PA-C 02/13/2020 06:4 1:00 AM EDT [facility] Outpatient Attender: Deborah Caldwell MD Physical Therapy 02/09 11:15:00 AM EDT MEDENT ([facility]) [facility] [address] [facility] [place] [address] 02/06/2020 12:00:00 AM EDT eCW1 [facility] [place] [address] [facility] [place] [address] 02/06/2020 12:00:00 AM EDT [facility]CW1 [facility] [place] [address] [facility] [address] 02/03/2020 12:00:00 AM EDT [facility]CW[facility] [place] [address] [facility] [address] 01/28/2020 12:00:00 AM EDT [facility]CW[facility] [place] [address] [facility] [address] 01/28/2020 12:00:00 AM EDT [facility]CW1 [facility] Outpatient Referrer: Becky HANSON PA-C 12/25/2019 12:3 6:00 PM EST [facility] [place] [address] [place] [address], [place] [address] 12/22/2019 12:00:00 AM EST [facility]CW[facility] Outpatient Attender: Harry aCldwell MD Physical Therapy 11/26/2019 0 2:15:00 PM EST MEDENT ([facility] ) Outpatient Attender: Dixie RAMIREZ Main Office 11/14/2019 08:45:00 AM EST MEDENT ([facility]) [facility] [place] [address] [facility] [place] [address] 11/12/2019 12:00:00 AM EST [facility] [place] [address] [place] [address], [place] [address] 11/10/2019 12:00:00 AM EST [facility]CW[facility]) [facility] [place] [address] [facility] [address] 11/06/2019 12:00:00 AM EST [facility] [place] [address] [facility] [address] 11/04/2019 12:00:00 AM EST [facility]CW[facility]) Outpatient Attender: Deborah Caldwell MD Physical Therapy 11/03 10:45:00 AM EST MEDENT ([facility]) Outpatient Attender: Giselle Barros MD Main office - [place] 10/07/2019 10:45:00 AM EST MEDENT ([facility]) Immunizations Vaccine Date Status Description Data Source(s) influenza, recombinant, quadrIvalent,injectable, prese rvative free 08/04/2020 07:43:00 AM EDT completed eCW1 ([facility]) influenza, recombinant, quadrIvalent,injectable, prese rvative free 08/04/2020 07:43:00 AM EDT completed eCW1 ([facility]) influenza, recombinant, quadrIvalent,injectable, prese rvative free 08/04/2020 07:43:00 AM EDT completed eCW1 ([facility]) influenza, recombinant, quadrIvalent,injectable, prese rvative free 08/04/2020 07:43:00 AM EDT completed eCW1 ([facility]) influenza, recombinant, quadrIvalent,injectable, prese rvative free 08/04/2020 07:43:00 AM EDT completed eCW1 ([facility]) influenza, recombinant, quadrIvalent,injectable, prese rvative free 08/04/2020 07:43:00 AM EDT completed eCW1 ([facility]) influenza, recombinant, quadrIvalent,injectable, prese rvative free 08/04/2020 07:43:00 AM EDT completed eCW1 ([facility]) influenza, recombinant, quadrIvalent,injectable, prese rvative free 08/04/2020 07:43:00 AM EDT completed eCW1 ([facility]) influenza, recombinant, quadrIvalent,injectable, prese rvative free 08/04/2020 07:43:00 AM EDT completed eCW1 ([facility]) influenza, recombinant, quadrIvalent,injectable, prese rvative free 08/04/2020 07:43:00 AM EDT completed eCW1 ([facility]) influenza, recombinant, quadrIvalent,injectable, prese rvative free 08/04/2020 07:43:00 AM EDT completed eCW1 ([facility]) influenza, recombinant, quadrIvalent,injectable, prese rvative free 08/04/2020 07:43:00 AM EDT completed eCW1 ([facility]) influenza, recombinant, quadrIvalent,injectable, prese rvative free 08/04/2020 07:43:00 AM EDT completed eCW1 ([facility]) influenza, recombinant, quadrIvalent,injectable, prese rvative free 08/04/2020 07:43:00 AM EDT completed eCW1 ([facility]) influenza, recombinant, quadrIvalent,injectable, prese rvative free 08/04/2020 07:43:00 AM EDT completed eCW1 ([facility]) influenza, recombinant, quadrIvalent,injectable, prese rvative free 08/04/2020 07:43:00 AM EDT completed eCW1 ([facility]) influenza, recombinant, quadrIvalent,injectable, prese rvative free 08/04/2020 07:43:00 AM EDT completed eCW1 ([facility]) influenza, recombinant, quadrIvalent,injectable, prese rvative free 08/04/2020 07:43:00 AM EDT completed eCW1 ([facility]) influenza, recombinant, quadrIvalent,injectable, prese rvative free 08/04/2020 07:43:00 AM EDT completed eCW1 ([facility]) influenza, recombinant, quadrIvalent,injectable, prese rvative free 08/04/2020 07:43:00 AM EDT completed eCW1 ([facility]) influenza, recombinant, quadrIvalent,injectable, prese rvative free 08/04/2020 07:43:00 AM EDT completed eCW1 ([facility]) influenza, recombinant, quadrIvalent,injectable, prese rvative free 08/04/2020 07:43:00 AM EDT completed eCW1 ([facility]) influenza, recombinant, quadrIvalent,injectable, prese rvative free 08/04/2020 07:43:00 AM EDT completed eCW1 ([facility]) influenza, recombinant, quadrIvalent,injectable, prese rvative free 08/04/2020 07:43:00 AM EDT completed eCW1 ([facility]) influenza, recombinant, quadrIvalent,injectable, prese rvative free 08/04/2020 07:43:00 AM EDT completed eCW1 ([facility]) influenza, recombinant, quadrIvalent,injectable, prese rvative free 08/04/2020 07:43:00 AM EDT completed eCW1 ([facility]) influenza, recombinant, quadrIvalent,injectable, prese rvative free 08/04/2020 07:43:00 AM EDT completed eCW1 ([facility]) influenza, recombinant, quadrIvalent,injectable, prese rvative free 08/04/2020 07:43:00 AM EDT completed eCW1 ([facility]) influenza, recombinant, quadrIvalent,injectable, prese rvative free 08/04/2020 07:43:00 AM EDT completed eCW1 ([facility]) INFLUENZA VIRUS VACCINE QUADRIVAL [id number](6 MOS AND UP)/PF 06/20/2020 12:00:00 AM EDT [...] 12:00:00 AM EST active Wheelchair - eCW1 ([facility]) Wheelchair - Wheelchair - 10/19/2020 12:00:00 AM EST active Wheelchair - eCW1 ([facility]) Wheelchair - Wheelchair - 10/19/2020 12:00:00 AM EST active Wheelchair - eCW1 ([facility]) 40 mg 10/19/2020 12:00:00 AM EST capsule,delayed [...] 12:00:00 AM EST active Wheelchair - eCW1 ([facility]) 300 mg 10/19/2020 12:00:00 AM EST capsule 8 TAKE TWO CAPSULES BY MOUTH EVERY DAY TAKE TWO CAPSULES BY MOUTH EVERY DAY SOLD: 10/19/2020 [facility] Wheelchair - Wheelchair - 10/19/2020 12:00:00 AM EST active Wheelchair - eCW1 ([facility]) Wheelchair - Wheelchair - 10/19/2020 12:00:00 AM EST active Wheelchair - eCW1 ([facility]) Wheelchair - Wheelchair - 10/19/2020 12:00:00 AM EST active Wheelchair - eCW1 ([facility]) 50 mg 10/19/2020 12:00:00 AM EST tablet [...] 12:00:00 AM EST active Wheelchair - eCW1 ([facility]) 20 mg 10/19/2020 12:00:00 AM EST tablet 30 TAKE ONE TABLET BY MOUTH EVERY DAY TAKE ONE TABLET BY MOUTH EVERY DAY SOLD: 10/19/2020 [facility] Wheelchair - Wheelchair - 10/19/2020 12:00:00 AM EST active Wheelchair - eCW1 ([facility]) 20 mg 10/19/2020 12:00:00 AM EST tablet 30 TAKE ONE TABLET BY MOUTH EVERY DAY TAKE ONE TABLET BY MOUTH EVERY DAY SOLD: 10/19/2020 [facility] Wheelchair - Wheelchair - 10/19/2020 12:00:00 AM EST active Wheelchair - eCW1 ([facility]) 100 mg 10/19/2020 12:00:00 AM EST tablet [...] EDT ORAL active MED[facility] ([facility]) Magnesium 07/25/2020 12:00:00 AM EDT ORAL active MEDENT ([facility]) QC Tumeric Complex 07/25/2020 12:00:00 AM EDT ORAL active MEDENT ([facility]) lansoprazole 30 MG Delayed Release Oral Capsule [Prevacid] P revacid 07/25/2020 12:00:00 AM EDT ORAL active M EDENT ([facility]) Mometasone Furoate Mometasone Furoate 07/25/2020 12:00:00 AM EDT active MEDENT ([facility]) 20 mg 07/07/2020 12:00:00 AM EDT capsule [...] activ e Sildenafil Citrate 100 MG eCW1 ([facility]) sildenafil 100 MG Oral Tablet Sildenafil Citrate 100 M G Sildenafil Citrate 100 MG 03/25/2020 12:00:00 AM EDT 1.0 {tablet} activ e Sildenafil Citrate 100 MG eCW1 ([facility]) sildenafil 100 MG Oral Tablet Sildenafil Citrate 100 M G Sildenafil Citrate 100 MG 03/25/2020 12:00:00 AM EDT 1.0 {tablet} activ e Sildenafil Citrate 100 MG eCW1 ([facility]) sildenafil 100 MG Oral Tablet Sildenafil Citrate 100 M G Sildenafil Citrate 100 MG 03/25/2020 12:00:00 AM EDT 1.0 {tablet} activ e Sildenafil Citrate 100 MG eCW1 ([facility]) sildenafil 100 MG Oral Tablet Sildenafil Citrate 100 M G Sildenafil Citrate 100 MG 03/25/2020 12:00:00 AM EDT 1.0 {tablet} suspe nded Sildenafil Citrate 100 MG eCW1 ([facility]) sildenafil 100 MG Oral Tablet Sildenafil Citrate 100 M G Sildenafil Citrate 100 MG 03/25/2020 12:00:00 AM EDT 1.0 {tablet} activ e Sildenafil Citrate 100 MG eCW1 ([facility]) sildenafil 100 MG Oral Tablet Sildenafil Citrate 100 M G Sildenafil Citrate 100 MG 03/25/2020 12:00:00 AM EDT 1.0 {tablet} activ e Sildenafil Citrate 100 MG eCW1 ([facility]) sildenafil 100 MG Oral Tablet Sildenafil Citrate 100 M G Sildenafil Citrate 100 MG 03/25/2020 12:00:00 AM EDT 1.0 {tablet} suspe nded Sildenafil Citrate 100 MG eCW1 ([facility]) sildenafil 100 MG Oral Tablet Sildenafil Citrate 100 M G Sildenafil Citrate 100 MG 03/25/2020 12:00:00 AM EDT 1.0 {tablet} activ e Sildenafil Citrate 100 MG eCW1 ([facility]) sildenafil 100 MG Oral Tablet Sildenafil Citrate 100 M G Sildenafil Citrate 100 MG 03/25/2020 12:00:00 AM EDT 1.0 {tablet} activ e Sildenafil Citrate 100 MG eCW1 ([facility]) sildenafil 100 MG Oral Tablet Sildenafil Citrate 100 M G Sildenafil Citrate 100 MG 03/25/2020 12:00:00 AM EDT 1.0 {tablet} activ e Sildenafil Citrate 100 MG eCW1 ([facility]) sildenafil 100 MG Oral Tablet Sildenafil Citrate 100 M G Sildenafil Citrate 100 MG 03/25/2020 12:00:00 AM EDT 1.0 {tablet} activ e Sildenafil Citrate 100 MG eCW1 ([facility]) sildenafil 100 MG Oral Tablet Sildenafil Citrate 100 M G Sildenafil Citrate 100 MG 03/25/2020 12:00:00 AM EDT 1.0 {tablet} activ e Sildenafil Citrate 100 MG eCW1 ([facility]) sildenafil 100 MG Oral Tablet Sildenafil Citrate 100 M G Sildenafil Citrate 100 MG 03/25/2020 12:00:00 AM EDT 1.0 {tablet} activ e Sildenafil Citrate 100 MG eCW1 ([facility]) sildenafil 100 MG Oral Tablet Sildenafil Citrate 100 M G Sildenafil Citrate 100 MG 03/25/2020 12:00:00 AM EDT 1.0 {tablet} suspe nded Sildenafil Citrate 100 MG eCW1 ([facility]) sildenafil 100 MG Oral Tablet Sildenafil Citrate 100 M G Sildenafil Citrate 100 MG 03/25/2020 12:00:00 AM EDT 1.0 {tablet} activ e Sildenafil Citrate 100 MG eCW1 ([facility]) sildenafil 100 MG Oral Tablet Sildenafil Citrate 100 M G Sildenafil Citrate 100 MG 03/25/2020 12:00:00 AM EDT 1.0 {tablet} activ e Sildenafil Citrate 100 MG eCW1 ([facility]) sildenafil 100 MG Oral Tablet Sildenafil Citrate 100 M G Sildenafil Citrate 100 MG 03/25/2020 12:00:00 AM EDT 1.0 {tablet} activ e Sildenafil Citrate 100 MG eCW1 ([facility]) sildenafil 100 MG Oral Tablet Sildenafil Citrate 100 M G Sildenafil Citrate 100 MG 03/25/2020 12:00:00 AM EDT 1.0 {tablet} activ e Sildenafil Citrate 100 MG eCW1 ([facility]) 100 mg 03/25/2020 12:00:00 AM EDT tablet 30 TAKE ONE TABLET BY MOUTH EVERY DAY TAKE ONE TABLET BY MOUTH EVERY DAY SOLD: 03/30/2020 [facility] sildenafil 100 MG Oral Tablet Sildenafil Citrate 100 M G Sildenafil Citrate 100 MG 03/25/2020 12:00:00 AM EDT 1.0 {tablet} suspe nded Sildenafil Citrate 100 MG eCW1 ([facility]) sildenafil 100 MG Oral Tablet Sildenafil Citrate 100 M G Sildenafil Citrate 100 MG 03/25/2020 12:00:00 AM EDT 1.0 {tablet} activ e Sildenafil Citrate 100 MG eCW1 ([facility]) sildenafil 100 MG Oral Tablet Sildenafil Citrate 100 M G Sildenafil Citrate 100 MG 03/25/2020 12:00:00 AM EDT 1.0 {tablet} activ e Sildenafil Citrate 100 MG eCW1 ([facility]) sildenafil 100 MG Oral Tablet Sildenafil Citrate 100 M G Sildenafil Citrate 100 MG 03/25/2020 12:00:00 AM EDT 1.0 {tablet} suspe nded Sildenafil Citrate 100 MG eCW1 ([facility]) sildenafil 100 MG Oral Tablet Sildenafil Citrate 100 M G Sildenafil Citrate 100 MG 03/25/2020 12:00:00 AM EDT 1.0 {tablet} suspe nded Sildenafil Citrate 100 MG eCW1 ([facility]) sildenafil 100 MG Oral Tablet Sildenafil Citrate 100 M G Sildenafil Citrate 100 MG 03/25/2020 12:00:00 AM EDT 1.0 {tablet} activ e Sildenafil Citrate 100 MG eCW1 ([facility]) 300 mg 03/24/2020 12:00:00 AM EDT tablet [...] suspended Glucosamine Chondr 500 Complex - eCW1 ([facility]) Cyanocobalamin 1000 MCG UNK 02/02/2020 12:00:00 AM EDT 1.0 { tablet} suspended Cyanocobalamin 1000 MCG eCW1 ([facility]) Cephalexin 500 MG Oral Capsule Cephalexin 500 MG 02/02/2020 12:00:0 0 AM EDT 1.0 {capsule} suspended Cephalexin 500 M G eCW1 ([facility]) ammonium lactate 120 MG/ML Topical Cream Ammonium Lact ate 12 % Ammonium Lactate 12 % 02/02/2020 12:00:00 AM EDT 1.0 {application} active Ammonium Lactate 12 % eCW1 ([facility]) Cephalexin 500 MG Oral Capsule Cephalexin 500 MG 02/02/2020 12:00:0 0 AM EDT 1.0 {capsule} suspended Cephalexin 500 M G eCW1 ([facility]) Glucosamine Chondr 500 Complex - Glucosamine Chondr 500 Comp macey - 02/02/2020 12:00:00 AM EDT 1.0 {capsule} suspended Glucosamine Chondr 500 Complex - eCW1 ([facility]) Cephalexin 500 MG Oral Capsule Cephalexin 500 MG 02/02/2020 12:00:0 0 AM EDT 1.0 {capsule} suspended Cephalexin 500 M G eCW1 ([facility]) Cyanocobalamin 1000 MCG UNK 02/02/2020 12:00:00 AM EDT 1.0 { tablet} suspended Cyanocobalamin 1000 MCG eCW1 ([facility]) Cyanocobalamin 1000 MCG UNK 02/02/2020 12:00:00 AM EDT 1.0 { tablet} suspended Cyanocobalamin 1000 MCG eCW1 ([facility]) ammonium lactate 120 MG/ML Topical Cream Ammonium Lact ate 12 % Ammonium Lactate 12 % 02/02/2020 12:00:00 AM EDT 1.0 {application} active Ammonium Lactate 12 % eCW1 ([facility]) Cyanocobalamin 1000 MCG UNK 02/02/2020 12:00:00 AM EDT 1.0 { tablet} active Cyanocobalamin 1000 MCG eCW1 ([facility]) ammonium lactate 120 MG/ML Topical Cream Ammonium Lact ate 12 % Ammonium Lactate 12 % 02/02/2020 12:00:00 AM EDT 1.0 {application} suspended Ammonium Lactate 12 % eCW1 ([facility]) Glucosamine Chondr 500 Complex - Glucosamine Chondr 500 Comp macey - 02/02/2020 12:00:00 AM EDT 1.0 {capsule} suspended Glucosamine Chondr 500 Complex - eCW1 ([facility]) Glucosamine Chondr 500 Complex - Glucosamine Chondr 500 Comp macey - 02/02/2020 12:00:00 AM EDT 1.0 {capsule} suspended Glucosamine Chondr 500 Complex - eCW1 ([facility]) Glucosamine Chondr 500 Complex - Glucosamine Chondr 500 Comp macey - 02/02/2020 12:00:00 AM EDT active 1 capsul e eCW1 ([facility]) Cephalexin 500 MG Oral Capsule Cephalexin 500 MG 02/02/2020 12:00:0 0 AM EDT 1.0 {capsule} suspended Cephalexin 500 M G eCW1 ([facility]) Cephalexin 500 MG Oral Capsule Cephalexin 500 MG 02/02/2020 12:00:0 0 AM EDT 1.0 {capsule} suspended Cephalexin 500 M G eCW1 ([facility]) Glucosamine Chondr 500 Complex - Glucosamine Chondr 500 Comp macey - 02/02/2020 12:00:00 AM EDT 1.0 {capsule} suspended Glucosamine Chondr 500 Complex - eCW1 ([facility]) 500 mg 02/02/2020 12:00:00 AM EDT capsule 20 TAKE ONE CAPSULE BY MOUTH TWICE A DAY TAKE ONE CAPSULE BY MOUTH TWICE A DAY SOLD: 02/03/2020 [facility] Cyanocobalamin 1000 MCG UNK 02/02/2020 12:00:00 AM EDT 1.0 { tablet} suspended Cyanocobalamin 1000 MCG eCW1 ([facility]) Glucosamine Chondr 500 Complex - Glucosamine Chondr 500 Comp macey - 02/02/2020 12:00:00 AM EDT 1.0 {capsule} suspended Glucosamine Chondr 500 Complex - eCW1 ([facility]) ammonium lactate 120 MG/ML Topical Cream Ammonium Lact ate 12 % Ammonium Lactate 12 % 02/02/2020 12:00:00 AM EDT 1.0 {application} suspended Ammonium Lactate 12 % eCW1 ([facility]) Cephalexin 500 MG Oral Capsule Cephalexin 500 MG 02/02/2020 12:00:0 0 AM EDT 1.0 {capsule} active Cephalexin 500 MG eCW1 ([facility]) ammonium lactate 120 MG/ML Topical Cream Ammonium Lact ate 12 % Ammonium Lactate 12 % 02/02/2020 12:00:00 AM EDT 1.0 {application} active Ammonium Lactate 12 % eCW1 ([facility]) Cyanocobalamin 1000 MCG UNK 02/02/2020 12:00:00 AM EDT 1.0 { tablet} active Cyanocobalamin 1000 MCG eCW1 ([facility]) Glucosamine Chondr 500 Complex - Glucosamine Chondr 500 Comp macey - 02/02/2020 12:00:00 AM EDT 1.0 {capsule} suspended Glucosamine Chondr 500 Complex - eCW1 ([facility]) Glucosamine Chondr 500 Complex - Glucosamine Chondr 500 Comp macey - 02/02/2020 12:00:00 AM EDT 1.0 {capsule} active Glucosamine Chondr 500 Complex - eCW1 ([facility]) Cephalexin 500 MG Oral Capsule Cephalexin 500 MG 02/02/2020 12:00:0 0 AM EDT 1.0 {capsule} suspended Cephalexin 500 M G eCW1 ([facility]) Cyanocobalamin 1000 MCG UNK 02/02/2020 12:00:00 AM EDT 1.0 { tablet} suspended Cyanocobalamin 1000 MCG eCW1 ([facility]) Cyanocobalamin 1000 MCG UNK 02/02/2020 12:00:00 AM EDT 1.0 { tablet} suspended Cyanocobalamin 1000 MCG eCW1 ([facility]) Cephalexin 500 MG Oral Capsule Cephalexin 500 MG 02/02/2020 12:00:0 0 AM EDT 1.0 {capsule} suspended Cephalexin 500 M G eCW1 ([facility]) Glucosamine Chondr 500 Complex - Glucosamine Chondr 500 Comp macey - 02/02/2020 12:00:00 AM EDT 1.0 {capsule} suspended Glucosamine Chondr 500 Complex - eCW1 ([facility]) ammonium lactate 120 MG/ML Topical Cream Ammonium Lact ate 12 % Ammonium Lactate 12 % 02/02/2020 12:00:00 AM EDT 1.0 {application} active Ammonium Lactate 12 % eCW1 ([facility]) Cephalexin 500 MG Oral Capsule Cephalexin 500 MG 02/02/2020 12:00:0 0 AM EDT 1.0 {capsule} suspended Cephalexin 500 M G eCW1 ([facility]) ammonium lactate 120 MG/ML Topical Cream Ammonium Lact ate 12 % Ammonium Lactate 12 % 02/02/2020 12:00:00 AM EDT 1.0 {application} active Ammonium Lactate 12 % eCW1 ([facility]) Cephalexin 500 MG Oral Capsule Cephalexin 500 MG 02/02/2020 12:00:0 0 AM EDT 1.0 {capsule} suspended Cephalexin 500 M G eCW1 ([facility]) ammonium lactate 120 MG/ML Topical Cream Ammonium Lact ate 12 % Ammonium Lactate 12 % 02/02/2020 12:00:00 AM EDT 1.0 {application} suspended Ammonium Lactate 12 % eCW1 ([facility]) ammonium lactate 120 MG/ML Topical Cream Ammonium Lact ate 12 % Ammonium Lactate 12 % 02/02/2020 12:00:00 AM EDT active 1 application eCW1 ([facility]) Cyanocobalamin 1000 MCG UNK 02/02/2020 12:00:00 AM EDT 1.0 { tablet} suspended Cyanocobalamin 1000 MCG eCW1 ([facility]) Cyanocobalamin 1000 MCG UNK 02/02/2020 12:00:00 AM EDT 1.0 { tablet} suspended Cyanocobalamin 1000 MCG eCW1 ([facility]) ammonium lactate 120 MG/ML Topical Cream Ammonium Lact ate 12 % Ammonium Lactate 12 % 02/02/2020 12:00:00 AM EDT 1.0 {application} active Ammonium Lactate 12 % eCW1 ([facility]) Glucosamine Chondr 500 Complex - Glucosamine Chondr 500 Comp macey - 02/02/2020 12:00:00 AM EDT 1.0 {capsule} suspended Glucosamine Chondr 500 Complex - eCW1 ([facility]) Cyanocobalamin 1000 MCG UNK 02/02/2020 12:00:00 AM EDT 1.0 { tablet} suspended Cyanocobalamin 1000 MCG eCW1 ([facility]) ammonium lactate 120 MG/ML Topical Cream Ammonium Lact ate 12 % Ammonium Lactate 12 % 02/02/2020 12:00:00 AM EDT 1.0 {application} active Ammonium Lactate 12 % eCW1 ([facility]) ammonium lactate 120 MG/ML Topical Cream Ammonium Lact ate 12 % Ammonium Lactate 12 % 02/02/2020 12:00:00 AM EDT 1.0 {application} suspended Ammonium Lactate 12 % eCW1 ([facility]) Cephalexin 500 MG Oral Capsule Cephalexin 500 MG 02/02/2020 12:00:0 0 AM EDT 1.0 {capsule} suspended Cephalexin 500 M G eCW1 ([facility]) Glucosamine Chondr 500 Complex - Glucosamine Chondr 500 Comp macey - 02/02/2020 12:00:00 AM EDT 1.0 {capsule} suspended Glucosamine Chondr 500 Complex - eCW1 ([facility]) Glucosamine Chondr 500 Complex - Glucosamine Chondr 500 Comp macey - 02/02/2020 12:00:00 AM EDT active 1 capsul e eCW1 ([facility]) Cephalexin 500 MG Oral Capsule Cephalexin 500 MG 02/02/2020 12:00:00 AM EDT active 1 capsule eCW1 ([facility]) ammonium lactate 120 MG/ML Topical Cream Ammonium Lact ate 12 % Ammonium Lactate 12 % 02/02/2020 12:00:00 AM EDT 1.0 {application} active Ammonium Lactate 12 % eCW1 ([facility]) ammonium lactate 120 MG/ML Topical Cream Ammonium Lact ate 12 % Ammonium Lactate 12 % 02/02/2020 12:00:00 AM EDT 1.0 {application} active Ammonium Lactate 12 % eCW1 ([facility]) Cephalexin 500 MG Oral Capsule Cephalexin 500 MG 02/02/2020 12:00:0 0 AM EDT 1.0 {capsule} suspended Cephalexin 500 M G eCW1 ([facility]) Cephalexin 500 MG Oral Capsule Cephalexin 500 MG 02/02/2020 12:00:00 AM EDT active 1 capsule eCW1 ([facility]) Cyanocobalamin 1000 MCG UNK 02/02/2020 12:00:00 AM EDT active 1 tablet eCW1 ([facility]) Cephalexin 500 MG Oral Capsule Cephalexin 500 MG 02/02/2020 12:00:0 0 AM EDT 1.0 {capsule} suspended Cephalexin 500 M G eCW1 ([facility]) Cyanocobalamin 1000 MCG UNK 02/02/2020 12:00:00 AM EDT 1.0 { tablet} suspended Cyanocobalamin 1000 MCG eCW1 ([facility]) Glucosamine Chondr 500 Complex - Glucosamine Chondr 500 Comp macey - 02/02/2020 12:00:00 AM EDT 1.0 {capsule} suspended Glucosamine Chondr 500 Complex - eCW1 ([facility]) Glucosamine Chondr 500 Complex - Glucosamine Chondr 500 Comp macey - 02/02/2020 12:00:00 AM EDT 1.0 {capsule} suspended Glucosamine Chondr 500 Complex - eCW1 ([facility]) Cephalexin 500 MG Oral Capsule Cephalexin 500 MG 02/02/2020 12:00:0 0 AM EDT 1.0 {capsule} suspended Cephalexin 500 M G eCW1 ([facility]) ammonium lactate 120 MG/ML Topical Cream Ammonium Lact ate 12 % Ammonium Lactate 12 % 02/02/2020 12:00:00 AM EDT 1.0 {application} active Ammonium Lactate 12 % eCW1 ([facility]) Cephalexin 500 MG Oral Capsule Cephalexin 500 MG 02/02/2020 12:00:0 0 AM EDT 1.0 {capsule} suspended Cephalexin 500 M G eCW1 ([facility]) Glucosamine Chondr 500 Complex - Glucosamine Chondr 500 Comp macey - 02/02/2020 12:00:00 AM EDT 1.0 {capsule} suspended Glucosamine Chondr 500 Complex - eCW1 ([facility]) Glucosamine Chondr 500 Complex - Glucosamine Chondr 500 Comp macey - 02/02/2020 12:00:00 AM EDT 1.0 {capsule} suspended Glucosamine Chondr 500 Complex - eCW1 ([facility]) Glucosamine Chondr 500 Complex - Glucosamine Chondr 500 Comp macey - 02/02/2020 12:00:00 AM EDT 1.0 {capsule} suspended Glucosamine Chondr 500 Complex - eCW1 ([facility]) Glucosamine Chondr 500 Complex - Glucosamine Chondr 500 Comp macey - 02/02/2020 12:00:00 AM EDT 1.0 {capsule} suspended Glucosamine Chondr 500 Complex - eCW1 ([facility]) Glucosamine Chondr 500 Complex - Glucosamine Chondr 500 Comp macey - 02/02/2020 12:00:00 AM EDT 1.0 {capsule} suspended Glucosamine Chondr 500 Complex - eCW1 ([facility]) ammonium lactate 120 MG/ML Topical Cream Ammonium Lact ate 12 % Ammonium Lactate 12 % 02/02/2020 12:00:00 AM EDT 1.0 {application} active Ammonium Lactate 12 % eCW1 ([facility]) Cephalexin 500 MG Oral Capsule Cephalexin 500 MG 02/02/2020 12:00:0 0 AM EDT 1.0 {capsule} suspended Cephalexin 500 M G eCW1 ([facility]) ammonium lactate 120 MG/ML Topical Cream Ammonium Lact ate 12 % Ammonium Lactate 12 % 02/02/2020 12:00:00 AM EDT active 1 application eCW1 ([facility]) ammonium lactate 120 MG/ML Topical Cream Ammonium Lact ate 12 % Ammonium Lactate 12 % 02/02/2020 12:00:00 AM EDT 1.0 {application} active Ammonium Lactate 12 % eCW1 ([facility]) Cyanocobalamin 1000 MCG UNK 02/02/2020 12:00:00 AM EDT 1.0 { tablet} suspended Cyanocobalamin 1000 MCG eCW1 ([facility]) Cyanocobalamin 1000 MCG UNK 02/02/2020 12:00:00 AM EDT 1.0 { tablet} suspended Cyanocobalamin 1000 MCG eCW1 ([facility]) ammonium lactate 120 MG/ML Topical Cream Ammonium Lact ate 12 % Ammonium Lactate 12 % 02/02/2020 12:00:00 AM EDT 1.0 {application} active Ammonium Lactate 12 % eCW1 ([facility]) Cephalexin 500 MG Oral Capsule Cephalexin 500 MG 02/02/2020 12:00:0 0 AM EDT 1.0 {capsule} suspended Cephalexin 500 M G eCW1 ([facility]) ammonium lactate 120 MG/ML Topical Cream Ammonium Lact ate 12 % Ammonium Lactate 12 % 02/02/2020 12:00:00 AM EDT 1.0 {application} active Ammonium Lactate 12 % eCW1 ([facility]) Cephalexin 500 MG Oral Capsule Cephalexin 500 MG 02/02/2020 12:00:0 0 AM EDT 1.0 {capsule} active Cephalexin 500 MG eCW1 ([facility]) Cyanocobalamin 1000 MCG UNK 02/02/2020 12:00:00 AM EDT 1.0 { tablet} suspended Cyanocobalamin 1000 MCG eCW1 ([facility]) ammonium lactate 120 MG/ML Topical Cream Ammonium Lact ate 12 % Ammonium Lactate 12 % 02/02/2020 12:00:00 AM EDT 1.0 {application} suspended Ammonium Lactate 12 % eCW1 ([facility]) Cyanocobalamin 1000 MCG UNK 02/02/2020 12:00:00 AM EDT 1.0 { tablet} suspended Cyanocobalamin 1000 MCG eCW1 ([facility]) Glucosamine Chondr 500 Complex - Glucosamine Chondr 500 Comp macey - 02/02/2020 12:00:00 AM EDT 1.0 {capsule} active Glucosamine Chondr 500 Complex - eCW1 ([facility]) Cyanocobalamin 1000 MCG UNK 02/02/2020 12:00:00 AM EDT 1.0 { tablet} suspended Cyanocobalamin 1000 MCG eCW1 ([facility]) Cephalexin 500 MG Oral Capsule Cephalexin 500 MG 02/02/2020 12:00:0 0 AM EDT 1.0 {capsule} suspended Cephalexin 500 M G eCW1 ([facility]) Cephalexin 500 MG Oral Capsule Cephalexin 500 MG 02/02/2020 12:00:0 0 AM EDT 1.0 {capsule} suspended Cephalexin 500 M G eCW1 ([facility]) ammonium lactate 120 MG/ML Topical Cream Ammonium Lact ate 12 % Ammonium Lactate 12 % 02/02/2020 12:00:00 AM EDT 1.0 {application} active Ammonium Lactate 12 % eCW1 ([facility]) Glucosamine Chondr 500 Complex - Glucosamine Chondr 500 Comp macey - 02/02/2020 12:00:00 AM EDT 1.0 {capsule} suspended Glucosamine Chondr 500 Complex - eCW1 ([facility]) Cyanocobalamin 1000 MCG UNK 02/02/2020 12:00:00 AM EDT 1.0 { tablet} suspended Cyanocobalamin 1000 MCG eCW1 ([facility]) Cephalexin 500 MG Oral Capsule Cephalexin 500 MG 02/02/2020 12:00:0 0 AM EDT 1.0 {capsule} suspended Cephalexin 500 M G eCW1 ([facility]) Cephalexin 500 MG Oral Capsule Cephalexin 500 MG 02/02/2020 12:00:0 0 AM EDT 1.0 {capsule} suspended Cephalexin 500 M G eCW1 ([facility]) Glucosamine Chondr 500 Complex - Glucosamine Chondr 500 Comp macey - 02/02/2020 12:00:00 AM EDT 1.0 {capsule} suspended Glucosamine Chondr 500 Complex - eCW1 ([facility]) Glucosamine Chondr 500 Complex - Glucosamine Chondr 500 Comp macey - 02/02/2020 12:00:00 AM EDT 1.0 {capsule} suspended Glucosamine Chondr 500 Complex - eCW1 ([facility]) Cyanocobalamin 1000 MCG UNK 02/02/2020 12:00:00 AM EDT 1.0 { tablet} suspended Cyanocobalamin 1000 MCG eCW1 ([facility]) Glucosamine Chondr 500 Complex - Glucosamine Chondr 500 Comp macey - 02/02/2020 12:00:00 AM EDT 1.0 {capsule} suspended Glucosamine Chondr 500 Complex - eCW1 ([facility]) ammonium lactate 120 MG/ML Topical Cream Ammonium Lact ate 12 % Ammonium Lactate 12 % 02/02/2020 12:00:00 AM EDT 1.0 {application} active Ammonium Lactate 12 % eCW1 ([facility]) Cephalexin 500 MG Oral Capsule Cephalexin 500 MG 02/02/2020 12:00:0 0 AM EDT 1.0 {capsule} suspended Cephalexin 500 M G eCW1 ([facility]) Cyanocobalamin 1000 MCG UNK 02/02/2020 12:00:00 AM EDT 1.0 { tablet} suspended Cyanocobalamin 1000 MCG eCW1 ([facility]) Cyanocobalamin 1000 MCG UNK 02/02/2020 12:00:00 AM EDT 1.0 { tablet} suspended Cyanocobalamin 1000 MCG eCW1 ([facility]) Cyanocobalamin 1000 MCG UNK 02/02/2020 12:00:00 AM EDT active 1 tablet eCW1 ([facility]) Glucosamine Chondr 500 Complex - Glucosamine Chondr 500 Comp macey - 02/02/2020 12:00:00 AM EDT 1.0 {capsule} suspended Glucosamine Chondr 500 Complex - eCW1 ([facility]) Cephalexin 500 MG Oral Capsule Cephalexin 500 MG 02/02/2020 12:00:0 0 AM EDT 1.0 {capsule} suspended Cephalexin 500 M G eCW1 ([facility]) Cyanocobalamin 1000 MCG UNK 02/02/2020 12:00:00 AM EDT 1.0 { tablet} suspended Cyanocobalamin 1000 MCG eCW1 ([facility]) Cyanocobalamin 1000 MCG UNK 02/02/2020 12:00:00 AM EDT 1.0 { tablet} suspended Cyanocobalamin 1000 MCG eCW1 ([facility]) ammonium lactate 120 MG/ML Topical Cream Ammonium Lact ate 12 % Ammonium Lactate 12 % 02/02/2020 12:00:00 AM EDT 1.0 {application} suspended Ammonium Lactate 12 % eCW1 ([facility]) Glucosamine Chondr 500 Complex - Glucosamine Chondr 500 Comp macey - 02/02/2020 12:00:00 AM EDT 1.0 {capsule} suspended Glucosamine Chondr 500 Complex - eCW1 ([facility]) ammonium lactate 120 MG/ML Topical Cream Ammonium Lact ate 12 % Ammonium Lactate 12 % 02/02/2020 12:00:00 AM EDT 1.0 {application} active Ammonium Lactate 12 % eCW1 ([facility]) Cyanocobalamin 1000 MCG UNK 02/02/2020 12:00:00 AM EDT 1.0 { tablet} suspended Cyanocobalamin 1000 MCG eCW1 ([facility]) Cephalexin 500 MG Oral Capsule Cephalexin 500 MG 02/02/2020 12:00:0 0 AM EDT 1.0 {capsule} suspended Cephalexin 500 M G eCW1 ([facility]) Cyanocobalamin 1000 MCG UNK 02/02/2020 12:00:00 AM EDT 1.0 { tablet} suspended Cyanocobalamin 1000 MCG eCW1 ([facility]) ammonium lactate 120 MG/ML Topical Cream Ammonium Lact ate 12 % Ammonium Lactate 12 % 02/02/2020 12:00:00 AM EDT 1.0 {application} active Ammonium Lactate 12 % eCW1 ([facility]) ammonium lactate 120 MG/ML Topical Cream Ammonium Lact ate 12 % Ammonium Lactate 12 % 02/02/2020 12:00:00 AM EDT 1.0 {application} active Ammonium Lactate 12 % eCW1 ([facility]) 600 mg 01/15/2020 12:00:00 AM EDT tablet [...] EST active [facility] ([facility]) 0.77 % 11/12/2019 12:00:00 AM EST cream 90 APPLY TOPICALLY THREE TIMES A DAY APPLY TOPICALLY THREE TIMES A DAY SOLD: 03/10/2020 [facility] ciclopirox 7.7 MG/ML Topical Cream [Loprox] Loprox 0.77 % Lo prox 0.77 % 11/12/2019 12:00:00 AM EST 1.0 {application} higinio pended Loprox 0.77 % eCW1 ([facility]) ciclopirox 7.7 MG/ML Topical Cream [Loprox] Loprox 0.77 % Lo prox 0.77 % 11/12/2019 12:00:00 AM EST 1.0 {application} higinio pended Loprox 0.77 % eCW1 ([facility]) ciclopirox 7.7 MG/ML Topical Cream [Loprox] Loprox 0.77 % Lo prox 0.77 % 11/12/2019 12:00:00 AM EST 1.0 {application} higinio pended Loprox 0.77 % eCW1 ([facility]) ciclopirox 7.7 MG/ML Topical Cream [Loprox] Loprox 0.77 % Lo prox 0.77 % 11/12/2019 12:00:00 AM EST 1.0 {application} higinio pended Loprox 0.77 % eCW1 ([facility]) 0.77 % 11/12/2019 12:00:00 AM EST cream 90 APPLY TOPICALLY THREE TIMES A DAY APPLY TOPICALLY THREE TIMES A DAY SOLD: 11/13/2019 [facility] ciclopirox 7.7 MG/ML Topical Cream [Loprox] Loprox 0.77 % Lo prox 0.77 % 11/12/2019 12:00:00 AM EST 1.0 {application} higinio pended Loprox 0.77 % eCW1 ([facility]) ciclopirox 7.7 MG/ML Topical Cream [Loprox] Loprox 0.77 % Lo prox 0.77 % 11/12/2019 12:00:00 AM EST 1.0 {application} higinio pended Loprox 0.77 % eCW1 ([facility]) ciclopirox 7.7 MG/ML Topical Cream [Loprox] Loprox 0.77 % Lo prox 0.77 % 11/12/2019 12:00:00 AM EST 1.0 {application} active Loprox 0.77 % eCW1 ([facility]) ciclopirox 7.7 MG/ML Topical Cream [Loprox] Loprox 0.77 % Lo prox 0.77 % 11/12/2019 12:00:00 AM EST 1.0 {application} higinio pended Loprox 0.77 % eCW1 ([facility]) ciclopirox 7.7 MG/ML Topical Cream [Loprox] Loprox 0.77 % Lo prox 0.77 % 11/12/2019 12:00:00 AM EST 1.0 {application} higinio pended Loprox 0.77 % eCW1 ([facility]) ciclopirox 7.7 MG/ML Topical Cream [Loprox] Loprox 0.77 % Lo prox 0.77 % 11/12/2019 12:00:00 AM EST 1.0 {application} higinio pended Loprox 0.77 % eCW1 ([facility]) ciclopirox 7.7 MG/ML Topical Cream [Loprox] Loprox 0.77 % Lo prox 0.77 % 11/12/2019 12:00:00 AM EST 1.0 {application} higinio pended Loprox 0.77 % eCW1 ([facility]) ciclopirox 7.7 MG/ML Topical Cream [Loprox] Loprox 0.77 % Lo prox 0.77 % 11/12/2019 12:00:00 AM EST 1.0 {application} higinio pended Loprox 0.77 % eCW1 ([facility]) ciclopirox 7.7 MG/ML Topical Cream [Loprox] Loprox 0.77 % Lo prox 0.77 % 11/12/2019 12:00:00 AM EST 1.0 {application} higinio pended Loprox 0.77 % eCW1 ([facility]) ciclopirox 7.7 MG/ML Topical Cream [Loprox] Loprox 0.77 % Lo prox 0.77 % 11/12/2019 12:00:00 AM EST 1.0 {application} higinio pended Loprox 0.77 % eCW1 ([facility]) 0.77 % 11/12/2019 12:00:00 AM EST cream 90 APPLY TOPICALLY THREE TIMES A DAY APPLY TOPICALLY THREE TIMES A DAY SOLD: 01/04/2020 [facility] ciclopirox 7.7 MG/ML Topical Cream [Loprox] Loprox 0.77 % Lo prox 0.77 % 11/12/2019 12:00:00 AM EST 1.0 {application} higinio pended Loprox 0.77 % eCW1 ([facility]) ciclopirox 7.7 MG/ML Topical Cream [Loprox] Loprox 0.77 % Lo prox 0.77 % 11/12/2019 12:00:00 AM EST 1.0 {application} higinio pended Loprox 0.77 % eCW1 ([facility]) ciclopirox 7.7 MG/ML Topical Cream [Loprox] Loprox 0.77 % Lo prox 0.77 % 11/12/2019 12:00:00 AM EST 1.0 {application} higinio pended Loprox 0.77 % eCW1 ([facility]) ciclopirox 7.7 MG/ML Topical Cream [Loprox] Loprox 0.77 % Lo prox 0.77 % 11/12/2019 12:00:00 AM EST 1.0 {application} higinio pended Loprox 0.77 % eCW1 ([facility]) ciclopirox 7.7 MG/ML Topical Cream [Loprox] Loprox 0.77 % Lo prox 0.77 % 11/12/2019 12:00:00 AM EST 1.0 {application} higinio pended Loprox 0.77 % eCW1 ([facility]) ciclopirox 7.7 MG/ML Topical Cream [Loprox] Loprox 0.77 % Lo prox 0.77 % 11/12/2019 12:00:00 AM EST 1.0 {application} higinio pended Loprox 0.77 % eCW1 ([facility]) ciclopirox 7.7 MG/ML Topical Cream [Loprox] Loprox 0.77 % Lo prox 0.77 % 11/12/2019 12:00:00 AM EST 1.0 {application} higinio pended Loprox 0.77 % eCW1 ([facility]) ciclopirox 7.7 MG/ML Topical Cream [Loprox] Loprox 0.77 % Lo prox 0.77 % 11/12/2019 12:00:00 AM EST 1.0 {application} active Loprox 0.77 % eCW1 ([facility]) ciclopirox 7.7 MG/ML Topical Cream [Loprox] Loprox 0.77 % Lo prox 0.77 % 11/12/2019 12:00:00 AM EST active 1 application eCW1 ([facility]) ciclopirox 7.7 MG/ML Topical Cream [Loprox] Loprox 0.77 % Lo prox 0.77 % 11/12/2019 12:00:00 AM EST active 1 application eCW1 ([facility]) ciclopirox 7.7 MG/ML Topical Cream [Loprox] Loprox 0.77 % Lo prox 0.77 % 11/12/2019 12:00:00 AM EST 1.0 {application} higinio pended Loprox 0.77 % eCW1 ([facility]) ciclopirox 7.7 MG/ML Topical Cream [Loprox] Loprox 0.77 % Lo prox 0.77 % 11/12/2019 12:00:00 AM EST 1.0 {application} higinio pended Loprox 0.77 % eCW1 ([facility]) ciclopirox 7.7 MG/ML Topical Cream [Loprox] Loprox 0.77 % Lo prox 0.77 % 11/12/2019 12:00:00 AM EST 1.0 {application} higinio pended Loprox 0.77 % eCW1 ([facility]) 325 mg (65 mg iron) 11/06/2019 12:00:00 [...] Sulfate 325 (65 Fe) MG e CW1 ([facility]) ferrous sulfate 325 MG Oral Tablet Ferrous Sulfate 325 (65 Fe) MG Ferrous Sulfate 325 (65 Fe) MG 11/06/2019 12:00:00 AM EST 1.0 {tablet} suspended Ferrous Sulfate 325 (65 Fe) MG e CW1 ([facility]) ferrous sulfate 325 MG Oral Tablet Ferrous Sulfate 325 (65 Fe) MG Ferrous Sulfate 325 (65 Fe) MG 11/06/2019 12:00:00 AM EST 1.0 {tablet} suspended Ferrous Sulfate 325 (65 Fe) MG e 1 ([facility]) ferrous sulfate 325 MG Oral Tablet Ferrous Sulfate 325 (65 Fe) MG Ferrous Sulfate 325 (65 Fe) MG 11/06/2019 12:00:00 AM EST 1.0 {tablet} suspended Ferrous Sulfate 325 (65 Fe) MG e CW1 ([facility]) ferrous sulfate 325 MG Oral Tablet Ferrous Sulfate 325 (65 Fe) MG Ferrous Sulfate 325 (65 Fe) MG 11/06/2019 12:00:00 AM EST 1.0 {tablet} suspended Ferrous Sulfate 325 (65 Fe) MG e CW1 ([facility]) ferrous sulfate 325 MG Oral Tablet Ferrous Sulfate 325 (65 Fe) MG Ferrous Sulfate 325 (65 Fe) MG 11/06/2019 12:00:00 AM EST 1.0 {tablet} suspended Ferrous Sulfate 325 (65 Fe) MG e CW1 ([facility]) ferrous sulfate 325 MG Oral Tablet Ferrous Sulfate 325 (65 Fe) MG Ferrous Sulfate 325 (65 Fe) MG 11/06/2019 12:00:00 AM EST 1.0 {tablet} active Ferrous Sulfate 325 (65 Fe) MG eCW1 ([facility]) ferrous sulfate 325 MG Oral Tablet Ferrous Sulfate 325 (65 Fe) MG Ferrous Sulfate 325 (65 Fe) MG 11/06/2019 12:00:00 AM EST 1.0 {tablet} active Ferrous Sulfate 325 (65 Fe) MG eCW1 ([facility]) ferrous sulfate 325 MG Oral Tablet Ferrous Sulfate 325 (65 Fe) MG Ferrous Sulfate 325 (65 Fe) MG 11/06/2019 12:00:00 AM EST 1.0 {tablet} suspended Ferrous Sulfate 325 (65 Fe) MG e 1 ([facility]) ferrous sulfate 325 MG Oral Tablet Ferrous Sulfate 325 (65 Fe) MG Ferrous Sulfate 325 (65 Fe) MG 11/06/2019 12:00:00 AM EST 1.0 {tablet} suspended Ferrous Sulfate 325 (65 Fe) MG e 1 ([facility]) ferrous sulfate 325 MG Oral Tablet Ferrous Sulfate 325 (65 Fe) MG Ferrous Sulfate 325 (65 Fe) MG 11/06/2019 12:00:00 AM EST 1.0 {tablet} suspended Ferrous Sulfate 325 (65 Fe) MG e 1 ([facility]) ferrous sulfate 325 MG Oral Tablet Ferrous Sulfate 325 (65 Fe) MG Ferrous Sulfate 325 (65 Fe) MG 11/06/2019 12:00:00 AM EST 1.0 {tablet} suspended Ferrous Sulfate 325 (65 Fe) MG e 1 ([facility]) ferrous sulfate 325 MG Oral Tablet Ferrous Sulfate 325 (65 Fe) MG Ferrous Sulfate 325 (65 Fe) MG 11/06/2019 12:00:00 AM EST 1.0 {tablet} suspended Ferrous Sulfate 325 (65 Fe) MG e 1 ([facility]) ferrous sulfate 325 MG Oral Tablet Ferrous Sulfate 325 (65 Fe) MG Ferrous Sulfate 325 (65 Fe) MG 11/06/2019 12:00:00 AM EST 1.0 {tablet} suspended Ferrous Sulfate 325 (65 Fe) MG e 1 ([facility]) ferrous sulfate 325 MG Oral Tablet Ferrous Sulfate 325 (65 Fe) MG Ferrous Sulfate 325 (65 Fe) MG 11/06/2019 12:00:00 AM EST 1.0 {tablet} suspended Ferrous Sulfate 325 (65 Fe) MG e 1 ([facility]) ferrous sulfate 325 MG Oral Tablet Ferrous Sulfate 325 (65 Fe) MG Ferrous Sulfate 325 (65 Fe) MG 11/06/2019 12:00:00 AM EST 1.0 {tablet} suspended Ferrous Sulfate 325 (65 Fe) MG e 1 ([facility]) ferrous sulfate 325 MG Oral Tablet Ferrous Sulfate 325 (65 Fe) MG Ferrous Sulfate 325 (65 Fe) MG 11/06/2019 12:00:00 AM EST 1.0 {tablet} suspended Ferrous Sulfate 325 (65 Fe) MG e CW1 ([facility]) ferrous sulfate 325 MG Oral Tablet Ferrous Sulfate 325 (65 Fe) MG Ferrous Sulfate 325 (65 Fe) MG 11/06/2019 12:00:00 AM EST active 1 tablet eCW1 ([facility]) ferrous sulfate 325 MG Oral Tablet Ferrous Sulfate 325 (65 Fe) MG Ferrous Sulfate 325 (65 Fe) MG 11/06/2019 12:00:00 AM EST 1.0 {tablet} suspended Ferrous Sulfate 325 (65 Fe) MG e CW1 ([facility]) ferrous sulfate 325 MG Oral Tablet Ferrous Sulfate 325 (65 Fe) MG Ferrous Sulfate 325 (65 Fe) MG 11/06/2019 12:00:00 AM EST 1.0 {tablet} suspended Ferrous Sulfate 325 (65 Fe) MG e 1 ([facility]) ferrous sulfate 325 MG Oral Tablet Ferrous Sulfate 325 (65 Fe) MG Ferrous Sulfate 325 (65 Fe) MG 11/06/2019 12:00:00 AM EST 1.0 {tablet} suspended Ferrous Sulfate 325 (65 Fe) MG e 1 ([facility]) ferrous sulfate 325 MG Oral Tablet Ferrous Sulfate 325 (65 Fe) MG Ferrous Sulfate 325 (65 Fe) MG 11/06/2019 12:00:00 AM EST 1.0 {tablet} suspended Ferrous Sulfate 325 (65 Fe) MG e 1 ([facility]) ferrous sulfate 325 MG Oral Tablet Ferrous Sulfate 325 (65 Fe) MG Ferrous Sulfate 325 (65 Fe) MG 11/06/2019 12:00:00 AM EST 1.0 {tablet} suspended Ferrous Sulfate 325 (65 Fe) MG e CW1 ([facility]) ferrous sulfate 325 MG Oral Tablet Ferrous Sulfate 325 (65 Fe) MG Ferrous Sulfate 325 (65 Fe) MG 11/06/2019 12:00:00 AM EST active 1 tablet eCW1 ([facility]) ferrous sulfate 325 MG Oral Tablet Ferrous Sulfate 325 (65 Fe) MG Ferrous Sulfate 325 (65 Fe) MG 11/06/2019 12:00:00 AM EST 1.0 {tablet} suspended Ferrous Sulfate 325 (65 Fe) MG e CW1 ([facility]) ferrous sulfate 325 MG Oral Tablet Ferrous Sulfate 325 (65 Fe) MG Ferrous Sulfate 325 (65 Fe) MG 11/06/2019 12:00:00 AM EST 1.0 {tablet} suspended Ferrous Sulfate 325 (65 Fe) MG e CW1 ([facility]) ferrous sulfate 325 MG Oral Tablet Ferrous Sulfate 325 (65 Fe) MG Ferrous Sulfate 325 (65 Fe) MG 11/06/2019 12:00:00 AM EST 1.0 {tablet} suspended Ferrous Sulfate 325 (65 Fe) MG e 1 ([facility]) ferrous sulfate 325 MG Oral Tablet Ferrous Sulfate 325 (65 Fe) MG Ferrous Sulfate 325 (65 Fe) MG 11/06/2019 12:00:00 AM EST active 1 tablet eCW1 ([facility]) 20 mg 10/27/2019 12:00:00 AM EST capsule [...] Hour 10/07/2019 12:00:00 AM EST active MEDENT ([facility]) No Active Medications 10/07/2019 12:00:00 AM EST completed MEDENT ([facility]) 100 unit/mL 10/01/2019 12:00:00 AM [...] 1 TABLET BY MOUTH DAILY SOLD: 10/06/2019 [facility] 0.6 mg 10/01/2019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 [phone] FAX: [phone] Name .................. : LUCITA FLOR Acct Number.................. : [id number] ROOM. ................. : TR-1A MR Number ................... : [id number] Stay type ............. : E/R Discharge Date......... ... : 06/09/20 Admit Date ......... : 06/09/20 Admit Phys .................... : JOHN TOMAS Date of ....... : 1950 Family Phys ................... : [employer] Phone .................. : [phone] Age ................................ : 70 Film# .................. .:[id number] Sex ................................. : M Unsigned transcriptions are preliminary reports and do not represent a medical or legal document CHEST PORTABLE [id number] COMPLETE:06/09/20 14:11 ARS 97186 Reason(s): weakness, Hx of CHF PORTABLE CHEST [...] rce(s) Supporting Document(s) ID Date Data Source [id number] 06/09/2020 08:52:00 [place] [address] RESPIRATORY CARE REPORT ==== ---------NAME------- NUMBER SEX AGE ADMIT DISC. XRAY# F/C ERIC FLOR [id number] M 70 06/09/20 06/09/20 [id number] E/R DATE OF : 1950 M/R# [id number] #: [id number] TR-1A LOCATION: EMERGENCY DEPT EKG [id number] COMPLE TE:06/09/20 14:07 EWW 49785 PHYSICIAN: JOHN TOMAS Name Value Range Interpretation Code Description Data Aydee rce(s) Supporting Document(s) ID Date Data Source [id number] 06/09/2020 01:20:00 PM EDT [facility] 1 OrderSheet [facility] Emergency Department [address] [place] [address] Phone #: ext- [phone] 06/09/2020 13:03 Patient: [...] of CHFMEDICATION/IV/DRIP/FLUID ORDERSOrder Description Priority Entered Acknowledged [id number] IVP 50 mL 13:30 06/09/2020 13:55 Cedrick Pedroza RN, M.D.; 2 OrderSheet [facility] Emergency Department [address] [place] [address] Phone #: ext- [phone] 06/09/2020 13:03 Patient: CHACHO RING Sex: M : 1950 Age: [id number] IV : 100 13:30 06/09/2020 13:56 DorismL/hr Cedrick Otero RN, M.D.;GENERAL ORDERSOrder Description Priority Entered Acknowledged InitialedDiet: (Regular Diet) 13:21 06/09/2020 13:23 Cedrick Perea ED, Jesse ER M.D.; Xtig0Evlbr Pressure 13:30 06/09/2020 13:30 Lesleeonitor Cedrick Otero RN, M.D.;Side Seam Tender 13:30 06/09/2020 13:30 Chula(continuous) Cedrick Otero RN, [...] rce(s) Supporting Document(s) ID Date Data Source [id number] 06/09/2020 01:20:00 PM EDT [facility] 1 Medication Reconciliation Report [facility] Emergency Department [address] [place] [address] Phone #: ext- [phone] 06/09/2020 13:03 Patient: [...] Multi-Vitamins Oral, daily 2 Medication Reconciliation Report [facility] Emergency Department [address] [place] [address] Phone #: ext- [phone] 06/09/2020 13:03 Patient: CHACHO RING Sex: M [...] rce(s) Supporting Document(s) ID Date Data Source [id number] 06/09/2020 01:20:00 PM EDT [facility] 1 Medication Administration Record [facility] Emergency Department [address] [place] [address] Phone #: ext- [phone] 06/09/2020 13:03 Patient: [...] rce(s) Supporting Document(s) ID Date Data Source [id number] 06/09/2020 01:20:00 PM EDT [facility] 1 General Instructions [facility] Emergency Department [address] [place] [address] Phone #: ext- [phone] 06/09/2020 13:03 [id number] Sex: [facility] : 1950 Age: 70yHypoglycemia without coma- associated with type 1 diabetes and use of insulin.INSTRUCTIONS (PLEASE EAT 3 MEALS PER DAY AND SNACK BETWEEN MEALS; PLEASE SEE DR. CALDWELL, LACTATION NURSE, IN NEXT FEW DAYS TO HAVE YOUR INSULIN ADJUSTED NEEDED).Warnings: Further evaluation is necessary (Surgical Corsetier). It is very important to follow up with formerly [facility] provider.GENERAL WARNINGS: Return or contact your physician [...] Subcutaneous : 20 daily. 2 General Instructions [facility] Emergency Department [address] [place] [address] Phone #: [phone] skg- [phone] 06/09/2020 13:03 [id number] Sex: M : 1950 Age: 70y Turmeric [...] you are taking a 3 General Instructions [facility] Emergency Department [address] [place] [address] Phone #: ext- [phone] 06/09/2020 13:03 Patient: CHACHO RING Sex: M [...] soon as possible to 4 General Instructions [facility] Emergency Department [address] [place] [address] Phone #: ext- [phone] 06/09/2020 13:03 Patient: [...] injection.For more information about diabetes, contact the [place] [employer], atwww.diabetes.org.When to seek medical adviceCall your healthcare provider right away if any of these symptoms of low blood sugar occur. Fatigue Headache Shakes Excess sweating Hunger Feeling anxious or restless Vision changes Drowsiness Weakness 5 General Instructions [facility] Emergency Department [address] [place] [address] Phone #: [phone] vce- [phone] 06/09/2020 13:03 Patient: CHACHO RING Sex: M : 1950 Age: 70y Confusion Personality changes Seizure or loss of consciousness [phone] [employer]. [address] [place] [address]. All rights reserved. This information is not intended as asubstitute for professional medical care. Always follow your healthcare professional's instructions. You have been given the following additional information: Diabetic Insulin Reaction(Electronically signed by Cedrick Otero M.D. 06/09/2020 18:16) Name Value Range Interpretation Code Description Data Aydee rce(s) Supporting Document(s) ID Date Data Source [id number] 06/09/2020 01:20:00 PM EDT [facility] 1 Clinical Report - Nurses [facility] Emergency Department [address] [place] [address] Phone #: ext- [phone] 06/09/2020 13:03 Patient: [...] appt; Pt was conscious butunresponsive according to [employer] when he brought his vehicle in for a check light; When emsarrived his FS was 45, oral glucose given and went up to 113. 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 2 Clinical Report - Nurses [facility] Emergency Department [address] [place] [address] Phone #: ext- [phone] 06/09/2020 13:03 Patient: [...] "Do you 3 Clinical Report - Nurses [facility] Emergency Department [address] [place] [address] Phone #: ext- [phone] 06/09/2020 13:03 Patient: [...] on patient. --13:18 06/09/20 Lilli Spaulding R.N.PHYSICAL [id number] 06/09/20. To room via stretcher.GENERAL / NEURO [...] including reason 4 Clinical Report - Nurses [facility] Emergency Department [address] [place] [address] Phone #: ext- [phone] 06/09/2020 13:03 Patient: [...] / DISCHARGE 5 Clinical Report - Nurses [facility] Emergency Department [address] [place] [address] Phone #: ext- [phone] 06/09/2020 13:03 Patient: CHACHO RING Sex: M : 1950 Age: 70y 17:25 06/09/20. BP: 151/94. MAP: 113. HR: 77. RR: 17. O2 saturation: 97%. Temp: 98 F. Pain level now: 0/10. --18:12 06/09/20 Chula Harvey RN 17:25 06/09/2020 Site #1 removed upon discharge. Catheter intact. Manual pressure and bandage applied. --18:12 06/09/20 Chula Harvey RN 17:30 06/09/20. Condition at [facility]: improved and stable. No learning barriers present. Discharge instructions provided and reviewed with the patient. Patient verbalized understanding. Written instructions provided in Scottish. ( Follow up with Dr Deborah Caldwell). The patient was discharged home and accompanied by taxi. He left ambulatory and via taxi. Patient driving. --18:12 06/09/20 Chula Harvey RN.Locked/Released at 06/09/2020 18:13 by Chula Harvey RN Name Value Range Interpretation Code Description Data Aydee rce(s) Supporting Document(s) ID Date Data Source [id number] 06/09/2020 01:20:00 PM EDT [facility] 1 Clinical Report - Physicians/Mid Levels [facility] Emergency Department [address] [place] [address] Phone #: ext- [phone] 06/09/2020 13:03 [id number] Sex: M : 1950 Age: 70y Time [...] has known recurrent hypoglycemia incidents, was at [facility] ER on 16 for same; pt [...] Medications: 2 Clinical Report - Physicians/Mid Levels [facility] Emergency Department [address] [place] [address] Phone #: ext- [phone] 06/09/2020 13:03 Patient: [...] mass. 3 Clinical Report - Physicians/Mid Levels [facility] Emergency Department [address] [place] [address] Phone #: ext- [phone] 06/09/2020 13:03 Patient: CHACHO RING Sex: M [...] making process. BNP: (FELI: 06/09/2020 13:47) ( [facility] 06/09/2020 14:36) Final results Test Result Flag Units (Reference) BNP 1631 H PG/ML (0 - 125) Chest Portable 1 View: (FELI: 06/09/2020 13:31) ( [facility] 06/09/2020 14:12) In Progress CHEST PORTABLE Reason(s): weakness, Hx of CHF TRANSPORTATION: P IV? O2? Oxygen?(No) Room: ED CBC w Diff: (FELI: 06/09/2020 14:00) ( [facility] 06/09/2020 14:17) Final results Test Result Flag [...] 0.00) 4 Clinical Report - Physicians/Mid Levels [facility] Emergency Department [address] [place] [address] Phone #: ext- [phone] 06/09/2020 13:03 Patient: [...] mL/min Normal Lipase: (FELI: 06/09/2020 13:47) ( [facility] 06/09/2020 14:37) Final results Test Result Flag Units (Reference) LIPASE 7 L U/L (13 - 60) Troponin-T: (FELI: 06/09/2020 13:47) ( [facility] 06/09/2020 14:28) Final results Test Result Flag Units (Reference) TROPONIN T <0.01 NG/ML (0.00 - 0.10) TROPONIN T0.1 ng/ml Recommended as the clinical threshold value Stefanieropohiral Giordano. EKG: (FELI: 06/09/2020 13:30) ( [facility] 06/09/2020 14:10) In Progress . Bedside Tests: Glucose: mild hypoglycemia - 56 (performed at bedside).PROGRESS AND PROCEDURESCourse of Care: 15:12 06/09/20. workup all in and reviewed; glucose up; BNP elevated but pt known wCHF, CXR clear; pt doing much better, ate whole tray and got 50 ml D50% soln. 5 Clinical Report - Physicians/Mid Levels [facility] Emergency Department [address] [place] [address] Phone #: ext- [phone] 06/09/2020 13:03 Patient: CHACHO RING Sex: M [...] SNACK BETWEEN MEALS; PLEASE SEE DR. CALDWELL, LACTATION NURSE, IN NEXT FEW DAYS TO HAVE YOUR INSULIN ADJUSTED NEEDED). Warnings: Further evaluation is necessary (Surgical Corsetier). It is very important to follow up [...] daily. 6 Clinical Report - Physicians/Mid Levels [facility] Emergency Department [address] [place] [address] Phone #: ext- [phone] 06/09/2020 13:03 Patient: [...] rce(s) Supporting Document(s) ID Date Data Source [id number] 06/09/2020 02:17:00 PM EDT [facility] Name Value Range Interpretation Code Description Data Aydee rce(s) Supporting Document(s) CBC W/AUTOMATED DIFF [facility] COMPLETE BLOOD COUNT Leukocytes [#/volume] in Blood by Automated count 9.0 10^3/uL 4.2 - 1 1.0 [facility] Erythrocytes [#/volume] in Blood by Automated count 5.05 10^6/uL 4. 50 - 6.30 [facility] Hemoglobin [Mass/volume] in Blood 14.5 g/dL 14.0 - 16.0 [facility] Hematocrit [Volume Fraction] of Blood by Automated count 44.5 % 4 1.0 - 51.0 [facility] Erythrocyte mean corpuscular volume [Entitic volume] by Auto mated count 88.1 fL 80.0 - 94.0 [facility] Erythrocyte mean corpuscular hemoglobin [Entitic mass] by Automated count 28.7 pg 27.0 - 34.0 [facility] Erythrocyte mean corpuscular hemoglobin concentration [Mass/volume] by Automated count 32.6 g/dL 31.0 - 36.0 [facility] Erythrocyte distribution width [Ratio] by Automated count 13.9 % 11.5 - 14.8 [facility] Platelets [#/volume] in Blood by Automated count 205 10^3/uL 150 - 45 0 [facility] Platelet mean volume [Entitic volume] in Blood by Automated count 9.6 fL 7.4 - 10.4 [facility] Neutrophils/100 leukocytes in Blood by Automated count 65.0 % 37. 0 - 80.0 [facility] Lymphocytes/100 leukocytes in Blood by Manual count 24.9 % 25.0 - 40.0 L [facility] Monocytes/100 leukocytes in Blood by Automated count 7.8 % 3.0 - 8.0 [facility] Eosinophils/100 leukocytes in Blood by Automated count 1.3 % 0.0 - 7.0 [facility] Basophils/100 leukocytes in Blood by Automated count 0.6 % 0.0 - 2.0 [facility] %IG 0.4 % 0.0 - 0.0 H [facility] al %NRBC 0.0 % 0.0 - 0.0 [facility] al Neutrophils [#/volume] in Blood by Automated count 5.86 10^3/uL 2.00 - 6.90 [facility] Lymphocytes [#/volume] in Blood by Automated count 2.24 10^3/uL 0.60 - 3.40 [facility] Monocytes [#/volume] in Blood by Automated count 0.70 10^3/uL 0.00 - 0.90 [facility] Eosinophils [#/volume] in Blood by Automated count 0.12 10^3/uL 0.00 - 0.70 [facility] Basophils [#/volume] in Blood by Automated count 0.05 10^3/uL 0.00 - 0.20 [facility] #IG 0.04 10^3/uL 0.00 - 0.10 [facility] #NRBC 0.00 10^3/uL 0.00 - 0.00 [facility] MANUAL DIFF NOT INDICATED [facility] RBC MORPH NOT INDICATED [facility] spital ID Date Data Source [id number] 06/09/2020 02:37:00 PM EDT [facility] Name Value Range Interpretation Code Description Data Aydee rce(s) Supporting Document(s) Lipase [Enzymatic activity/volume] in Serum or Plasma 7 U/L 13 - 60 L [facility] ID Date Data Source [id number] 06/09/2020 02:36:00 PM EDT [facility] Name Value Range Interpretation Code Description Data Aydee rce(s) Supporting Document(s) COMPREHENSIVE METABOLIC PANEL [facility] COMPREHENSIVE METABOLIC PANEL Sodium [Moles/volume] in Serum or Plasma 137 mEq/L 134 - 153 [facility] Potassium [Moles/volume] in Serum or Plasma 4.3 mEq/L 3.6 - 5.0 [facility] Chloride [Moles/volume] in Serum or Plasma 100 mEq/L 98 - 107 [facility] Carbon dioxide, total [Moles/volume] in Serum or Plasma 23 MEQ/L 22 - 30 [facility] Glucose [Mass/volume] in Serum or Plasma 189 MG/DL 65 - 110 H [facility] BUN 12 MG/DL 7 - 21 [facility] al Creatinine [Mass/volume] in Serum or Plasma 0.7 MG/DL 0.7 - 1.5 [facility] BUN/CREAT 17 8 - 27 [facility] Protein [Mass/volume] in Serum or Plasma 7.0 G/DL 6.3 - 8.2 [facility] Albumin [Mass/volume] in Serum or Plasma 4.1 G/DL 3.9 - 5.0 [facility] Globulin [Mass/volume] in Serum by calculation 2.9 GM/DL 2.4 - 3.2 [facility] A/G RATIO 1.4 0.8 - 2.0 [facility] Calcium [Mass/volume] in Serum or Plasma 9.6 MG/DL 8.4 - 10.2 [facility] Bilirubin.total [Mass/volume] in Serum or Plasma <0.7 MG/DL 0.2 - 1.3 [facility] Alkaline phosphatase [Enzymatic activity/volume] in Serum or Plasma 110 U/L 38 - 126 [facility] Aspartate aminotransferase [Enzymatic activity/volume] in Serum or Plasma 35 U/L 5 - 40 [facility] Alanine aminotransferase [Enzymatic activity/volume] in Seru m or Plasma 21 U/L 7 - 56 [facility] Anion gap 3 in Serum or Plasma 14.0 mmol/L 8.0 - 16.0 [facility] AGE 70 yrs [facility] al NON-AA GFR >60 mL/min [facility] ital AFR AMER GFR >60 mL/min [facility] Ho spital Male GFR In terprentation 20-49 [...] >32 mL/min Normal ID Date Data Source [id number] 06/09/2020 02:34:00 PM EDT [facility] Name Value Range Interpretation Code Description Data Aydee rce(s) Supporting Document(s) BNP 1631 PG/ML 0 - 125 H [facility] ashleigh ID Date Data Source [id number] 06/09/2020 02:28:00 PM EDT [facility] Name Value Range Interpretation Code Description Data [facility] rce(s) Supporting Document(s) TROPONIN T <0.01 NG/ML 0.00 - 0.10 [facility] TROPONIN T0.1 ng/ml Recommended as the c linical threshold value forTroponin T. ID Date Data Source [id number] 06/01/2020 02:15:00 PM EDT [facility] ([facility] Name Value Range Interpretation Code Description Data [facility] Supporting Document(s) Wound Culture Laboratory test result [...] <=0.12 S</content>
<content></content> ID Date Data Source [id number] 05/18/2020 11:46:00 AM EDT [facility] ([facility] ) Name Value Range Interpretation Code Description Data Aydee rce(s) Supporting Document(s) Glucose [Mass/volume] in Serum or Plasma 145 [facility] ([facility]) Hemoglobin A1c/Hemoglobin.total in Blood 8.9 [facility] ([facility]) ID Date Data Source [id number] 03/26/2020 10:15:00 AM EDT [facility] Name Value Range Interpretation Code Description Data Aydee rce(s) Supporting Document(s) SARS CORONAVIRUS 2 RNA [facility] This lab was ordered by [facility] and reported by [facility]. ID Date Data Source [id number] 03/26/2020 10:15:00 AM EDT [facility] ([facility]) Name Value Range Interpretation Code Description Data Aydee rce(s) Supporting Document(s) Laboratory test finding (navigational concept) Laboratory test result [facility]) Testing was performed using the conrad(R) SARS-CoV-2 test. This test was developed and its performance characteristics determined by [employer]. This test has not been FDA cleared [...] detected) result in this assay. Performed at: [facility] [id number] [place] [employer]: Joycelyn Edge MD, Phone: [phone] Not Detected ID Date Data Source [id number] 03/26/2020 10:02:00 AM EDT [facility] ([facility]) Name Value Range Interpretation Code Description Data Aydee rce(s) Supporting Document(s) Platelets [#/volume] in Blood by Automated count 175 10 150-450 [facility] ([facility]) ID Date Data Source [id number] 03/26/2020 10:02:00 AM EDT [facility] ([facility]) Name Value Range Interpretation Code Description Data Aydee rce(s) Supporting Document(s) Prothrombin Time 15.6 s 11.8-14.0 [facility] ([facility]) Partial Thromboplastin Time 35.6 s 25.0-38.4 [facility] ([facility]) Inr 1.27 [facility] ([facility]) THERAPUTIC HUMAN INR VALUES INDICATIONS NORMAL RANGES PROPHYLAXIS/TREATMENT OF: VENOUS THROMBOSIS 2.0-3.0 PULMONARY EMBOLISM 2.0-3.0 PREVENTION OF SYSTEMIC EMBOLISM FROM: TISSUE HEART VALVES 2.0-3.0 ACUTE MYOCARDIAL INFARCTION 2.0-3.0 VALVULAR HEART DISEASE 2.0-3.0 ATRIAL FIBRILLATION 2.0-3.0 MECHANICAL VALVES(HIGH RISK) 2.5-3.5 RECURRENT MYOCARDIAL INFARCTION 2.5-3.5 ID Date Data Source [id number] 01/01/2020 09:10:00 AM EDT [facility] ([facility]) Name Value Range Interpretation Code Description Data Aydee rce(s) Supporting Document(s) Magnesium Level 1.57 [facility] ([facility]) ID Date Data Source [id number] 01/01/2020 09:10:00 AM EDT [facility] ([facility]) Name Value Range Interpretation Code Description Data Aydee rce(s) Supporting Document(s) White Blood Count 7.9 5.0-10.0 [facility] ([facility]) Platelets 317 172-450 [facility] Red Blood Count 4.91 4.70-6.10 [facility] Hemoglobin 14.9 14.0-18.0 [facility] ([facility]) Hematocrit 45.5 42.0-52.0 [facility] ([facility]) ID Date Data Source [id number] 01/01/2020 09:10:00 AM EDT [facility] ([facility]) Name Value Range Interpretation Code Description Data Aydee rce(s) Supporting Document(s) Blood Urea Nitrogen 16.0 7-25 [facility] ([facility]) Glucose 373 70-100 [facility] Creatinine 0.78 0.6-1.4 [facility] ([facility]) Glomerular filtration rate/1.73 sq M.pre dicted [Volume Rate/Area] in Serum or Plasma by Creatinine-based formula (MDRD) 98 [facility] ([facility]) Sodium 134.6 135-145 [facility] Potassium 4.18 3.5-5.3 [facility] Chloride 98.5 98-110 [facility] Carbon Dioxide 29.9 20-32 [facility] ([facility]) Albumin 4.0 3.5-4.7 [facility] Calcium 8.79 8.4-10.4 [facility] Phosphorus 2.69 [facility] ID Date Data Source [id number] 12/17/2019 01:39:00 PM EST [facility] ([facility]) Name Value Range Interpretation Code Description Data Aydee rce(s) Supporting Document(s) Prothrombin Time 14.0 s 11.8-14.0 [facility] ([facility]) Partial Thromboplastin Time 34.2 s 25.0-38.4 [facility] ([facility]) Inr 1.11 [facility] ([facility]) THERAPUTIC HUMAN INR VALUES INDICATIONS NORMAL RANGES PROPHYLAXIS/TREATMENT OF: VENOUS THROMBOSIS 2.0-3.0 PULMONARY EMBOLISM 2.0-3.0 PREVENTION OF SYSTEMIC EMBOLISM FROM: TISSUE HEART VALVES 2.0-3.0 ACUTE MYOCARDIAL INFARCTION 2.0-3.0 VALVULAR HEART DISEASE 2.0-3.0 ATRIAL FIBRILLATION 2.0-3.0 MECHANICAL VALVES(HIGH RISK) 2.5-3.5 RECURRENT MYOCARDIAL INFARCTION 2.5-3.5 ID Date Data Source [id number] 12/17/2019 01:39:00 PM EST [facility] ([facility]) Name Value Range Interpretation Code Description Data Aydee rce(s) Supporting Document(s) Platelets [#/volume] in Blood by Automated count 216 10 150-450 [facility] ([facility]) ID Date Data Source [id number] 12/11/2019 01:58:00 PM EST [facility] ([facility]) Name Value Range Interpretation Code Description Data Aydee rce(s) Supporting Document(s) Laboratory test finding (navigational concept) Laboratory test result [facility] ([facility]) ID Date Data Source [id number] 11/04/2019 02:49:00 PM EST [facility] ([facility]) Name Value Range Interpretation Code Description Data Aydee rce(s) Supporting Document(s) Magnesium Level 1.7 [facility] ([facility]) ID Date Data Source [id number] 11/04/2019 02:49:00 PM EST [facility] ([facility]) Name Value Range Interpretation Code Description Data Aydee rce(s) Supporting Document(s) Cholesterol 132 120-200 [facility] ([facility]) HDL 72 40-60 [facility] Triglycerides 71 [facility] ([facility]) Chol/HDL Ratio 1.833 [facility] ([facility]) Cholesterol in LDL [Mass/volume] in Serum or Plasma by calculation 46 [facility] ([facility]) ID Date Data Source [id number] 11/04/2019 02:49:00 PM EST [facility] ([facility]) Name Value Range Interpretation Code Description Data Aydee rce(s) Supporting Document(s) Thyroid Stimulating Hormone 2.160 [facility] ([facility]) ID Date Data Source [id number] 11/04/2019 02:49:00 PM EST [facility] ([facility]) Name Value Range Interpretation Code Description Data Aydee rce(s) Supporting Document(s) Albumin [Mass/volume] in Serum or Plasma 4.1 [facility] ([facility]) Alanine aminotransferase [Enzymatic activity/volume] in Serum or Pl asma 26 [facility] ([facility]) Carbon dioxide, total [Moles/volume] in Serum or Plasma 27 [facility] ([facility]) Calcium [Mass/volume] in Serum or Plasma 9.5 [facility] ([facility]) Chloride [Moles/volume] in Serum or Plasma 103 [facility] ([facility]) Protein [Mass/volume] in Serum or Plasma 7.6 [facility] ([facility]) Alkaline phosphatase [Enzymatic activity/volume] in Serum or Plasma 1 27 [facility] ([facility]) Potassium [Moles/volume] in Serum or Plasma 4.4 [facility] ([facility]) Sodium 139 [facility] ([facility]) Aspartate aminotransferase [Enzymatic activity/volume] in Serum or Plasma 21 [facility] ([facility]) Urea nitrogen [Mass/volume] in Serum or Plasma 14 [facility] ([facility]) Glucose 189 70-100 [facility] ([facility] Creatinine For GFR 1.03 [facility] ([facility]) ID Date Data Source [id number] 11/04/2019 02:49:00 PM EST [facility] ([facility]) Name Value Range Interpretation Code Description Data Aydee rce(s) Supporting Document(s) Platelets 268 150-450 [facility] ([facility] Red Blood Count 4.95 4.30-6.10 [facility] ([facility]) White Blood Count 9.0 4.0-10.0 [facility] ([facility]) Hematocrit 43.0 42.0-52.0 [facility] ([facility]) Hemoglobin 13.7 13.5-17.5 [facility] ([facility]) ID Date Data Source [id number] LEVEL 11/04/2019 12:00:00 AM EST e[facility]1 ([facility]) Name Value Range Interpretation Code Description Data Aydee rce(s) Supporting Document(s) 1.7 1.8-2.4 MAGNESIUM LEVEL eCW1 ([facility]) ID Date Data Source TOTAL IRON BINDING CAPACIT 11/04/2019 12:00:00 AM EST eCW1 ( [facility]) Name Value Range Interpretation Code Description Data Aydee rce(s) Supporting Document(s) 37 65-175 IRON (FE) eCW1 ([facility]) 400 250-450 TOTAL IRON BINDING CAPACI TY eCW1 ([facility]) 9.3 19.7-50.0 PERCENT SATURATION eCW1 ([facility]) ID Date Data Source [id number] 11/04/2019 12:00:00 AM EST eCW1 ([facility]) Name Value Range Interpretation Code Description Data Aydee rce(s) Supporting Document(s) 9 26-388 FERRITIN eCW1 ([facility]) ID Date Data Source CBC 11/04/2019 12:00:00 AM EST eCW1 ([facility]) Name Value Range Interpretation Code Description Data Aydee rce(s) Supporting Document(s) 9.0 4.0-10.0 WHITE BLOOD COUNT [facility] 4.95 4.30-6.10 RED BLOOD COUNT eCW1 ([facility]) 13.7 13.5-17.5 HEMOGLOBIN eCW1 ([facility]) 43.0 42.0-52.0 HEMATOCRIT eCW1 ([facility]) 86.9 80.0-96.0 MEAN CORPUSCULAR VOLUME e CW1 ([facility]) 27.7 27.0-33.0 MEAN CORPUSCULAR HEMOGLOB IN eCW1 ([facility]) 268 150-450 PLATELET COUNT, AUTOMATED eCW1 ([facility]) 15.9 11.5-14.5 RED CELL DISTRIBUTION WID TH eCW1 ([facility]) 31.9 32.0-36.5 MEAN CORPUSCULAR HGB CONC eCW1 ([facility]) ID Date Data Source [id number] 11/03/2019 12:10:00 PM EST [facility] ([facility]) Name Value Range Interpretation Code Description Data Aydee rce(s) Supporting Document(s) Hemoglobin A1c/Hemoglobin.total in Blood 10.5 [facility] ([facility]) Glucose [Mass/volume] in Serum or Plasma 258 [facility] ([facility]) ID Date Data Source [id number] 10/01/2019 11:44:00 AM EST [facility] ([facility]) Name Value Range Interpretation Code Description Data Aydee rce(s) Supporting Document(s) Magnesium Level 1.46 [facility] ([facility]) ID Date Data Source [id number] 10/01/2019 11:44:00 AM EST [facility] (Cardi ology [...] EST Former Smoker completed Former Smoker eCW1 ([facility]) Smoking 10/25/2020 12:00:00 AM EST Former Smoker completed Former Smoker eCW1 ([facility]) Smoking 10/25/2020 12:00:00 AM EST Former Smoker completed Former Smoker eCW1 ([facility]) Smoking 10/25/2020 12:00:00 AM EST Former Smoker completed Former Smoker eCW1 ([facility]) Smoking 10/25/2020 12:00:00 AM EST Former Smoker completed Former Smoker eCW1 ([facility]) Smoking 10/25/2020 12:00:00 AM EST Former Smoker completed Former Smoker eCW1 ([facility]) Smoking 10/25/2020 12:00:00 AM EST Former Smoker completed Former Smoker eCW1 ([facility]) Smoking 10/19/2020 12:00:00 AM EST Former Smoker completed Former Smoker eCW1 ([facility]) Smoking 10/19/2020 12:00:00 AM EST Former Smoker completed Former Smoker eCW1 ([facility]) Smoking 10/19/2020 12:00:00 AM EST Former Smoker completed Former Smoker eCW1 ([facility]) Smoking 10/06/2020 12:00:00 AM EST Former Smoker completed Former Smoker eCW1 ([facility]) Smoking 10/06/2020 12:00:00 AM EST Former Smoker completed Former Smoker eCW1 ([facility]) Smoking 10/06/2020 12:00:00 AM EST Former Smoker completed Former Smoker eCW1 ([facility]) Smoking 10/06/2020 12:00:00 AM EST Former Smoker completed Former Smoker eCW1 ([facility]) Smoking 10/06/2020 12:00:00 AM EST Former Smoker completed Former Smoker eCW1 ([facility]) Smoking 09/21/2020 12:00:00 AM EST Former Smoker completed Former Smoker eCW1 ([facility]) Smoking 08/18/2020 12:00:00 AM EDT Former Smoker completed Former Smoker eCW1 ([facility]) Smoking 08/18/2020 12:00:00 AM EDT Former Smoker completed Former Smoker eCW1 ([facility]) Smoking 08/18/2020 12:00:00 AM EDT Former Smoker completed Former Smoker eCW1 ([facility]) Smoking 08/18/2020 12:00:00 AM EDT Former Smoker completed Former Smoker eCW1 ([facility]) Smoking 08/18/2020 12:00:00 AM EDT Former Smoker completed Former Smoker eCW1 ([facility]) Smoking 08/18/2020 12:00:00 AM EDT Former Smoker completed Former Smoker eCW1 ([facility]) Smoking 08/18/2020 12:00:00 AM EDT Former Smoker completed Former Smoker eCW1 ([facility]) Smoking 08/18/2020 12:00:00 AM EDT Former Smoker completed Former Smoker eCW1 ([facility]) Smoking 08/04/2020 12:00:00 AM EDT Former Smoker completed Former Smoker eCW1 ([facility]) Smoking 08/04/2020 12:00:00 AM EDT Former Smoker completed Former Smoker eCW1 ([facility]) Smoking 08/04/2020 12:00:00 AM EDT Former Smoker completed Former Smoker eCW1 ([facility]) Smoking 08/04/2020 12:00:00 AM EDT Former Smoker completed Former Smoker eCW1 ([facility]) Smoking 08/04/2020 12:00:00 AM EDT Former Smoker completed Former Smoker eCW1 ([facility]) Smoking 07/28/2020 12:00:00 AM EDT Former Smoker completed Former Smoker eCW1 ([facility]) Smoking 07/28/2020 12:00:00 AM EDT Former Smoker completed Former Smoker eCW1 ([facility]) Smoking 07/28/2020 12:00:00 AM EDT Former Smoker completed Former Smoker eCW1 ([facility]) Smoking 07/26/2020 12:00:00 AM EDT Patient is a former smoker completed Patient is a former smoker [facility] ([facility]) Smoking 07/21/2020 12:00:00 AM EDT Former Smoker completed Former Smoker eCW1 ([facility]) Smoking 02/06/2020 12:00:00 AM EDT Former Smoker completed Former Smoker eCW1 ([facility]) Smoking 02/06/2020 12:00:00 AM EDT Former Smoker completed Former Smoker eCW1 ([facility]) Vital Signs ID Date Data Source [id number] Name Value Range Interpretation Code Description Data Source(s) Body mass index (BMI) [Ratio] 20.4 kg/m2 20.4 k g/m2 [facility] ([facility] Body weight 158.56 [lb_av] 158.56 [lb_av] MEDEN T ([facility]) stated--in wheelchair Body height 74 [in_i] 74 [in_i] [facility] ([facility]) 6'2" Body temperature 97.3 [degF] 97.3 [degF] [facility] ([facility]) Diastolic blood pressure 84 mm[Hg] 84 mm[Hg] [facility] ([facility] ) Systolic blood pressure 136 mm[Hg] 136 mm[Hg] M [facility] ([facility] ) Diastolic blood pressure 76 mm[Hg] 76 mm[Hg] eCW1 ([facility]) Systolic blood pressure 130 mm[Hg] 130 mm[Hg] e CW1 ([facility]) Body temperature 95 [degF] 95 [degF] eCW1 ([facility]) Respiratory rate 18 /min 18 /min eCW1 ([facility]) Heart rate 64 /min 64 /min eCW1 ([facility]) Body mass index (BMI) [Ratio] 19.23 kg/m2 19.23 kg/m2 eCW1 ([facility]) Body height [in_i] eCW1 ([facility]) Body weight kg eCW1 ([facility]) Body weight 158 [lb_av] 158 [lb_av] eCW1 ([facility]) Diastolic blood pressure 68 mm[Hg] 68 mm[Hg] eCW1 ([facility]) Systolic blood pressure 120 mm[Hg] 120 mm[Hg] e CW1 ([facility]) Body temperature 97.3 [degF] 97.3 [degF] eCW1 ( [facility]) Respiratory rate 18 /min 18 /min eCW1 ([facility]) Heart rate 121 /min 121 /min eCW1 ([facility]) Body mass index (BMI) [Ratio] 19.23 kg/m2 19.23 kg/m2 eCW1 ([facility]) Body height [in_i] eCW1 ([facility]) Body weight 158 [lb_av] 158 [lb_av] eCW1 ([facility]) Diastolic blood pressure 73 mm[Hg] 73 mm[Hg] eCW1 ([facility]) Systolic blood pressure 130 mm[Hg] 130 mm[Hg] e CW1 ([facility]) Body temperature 96.4 [degF] 96.4 [degF] eCW1 ( [facility]) Respiratory rate 16 /min 16 /min eCW1 ([facility]) Heart rate 124 /min 124 /min eCW1 ([facility]) Body mass index (BMI) [Ratio] 19.23 kg/m2 19.23 kg/m2 eCW1 ([facility]) Body height [in_i] eCW1 ([facility]) Body weight kg eCW1 ([facility]) Body weight 158 [lb_av] 158 [lb_av] eCW1 ([facility] Body temperature 96.4 [degF] 96.4 [degF] eCW1 ( [facility]) Respiratory rate 16 /min 16 /min eCW1 ([facility]) Body mass index (BMI) [Ratio] 19.23 kg/m2 19.23 kg/m2 eCW1 ([facility]) Body height [in_i] eCW1 ([facility]) Body weight kg eCW1 ([facility]) Body weight 158 [lb_av] 158 [lb_av] eCW1 ([facility]) Body surface area Derived from formula 1.95 m2 1.95 m2 [facility] ([facility]) Body weight 69.854 kg 69.854 kg [facility] ([facility]) [place] body weight 190 [lb_av] 190 [lb_av] MED[facility] T ([facility]) Body mass index (BMI) [Ratio] 19.5 kg/m2 19.5 k g/m2 [facility] ([facility]) Body weight 154.00 [lb_av] 154.00 [lb_av] MED[facility] T ([facility]) Body height 74.5 [in_i] 74.5 [in_i] [facility] ([facility]) 6'2.50" Diastolic blood pressure 81 mm[Hg] 81 mm[Hg] [facility] ([facility]) Systolic blood pressure 121 mm[Hg] 121 mm[Hg] [facility] Diastolic blood pressure 84 mm[Hg] 84 mm[Hg] eCW1 ([facility]) Systolic blood pressure 145 mm[Hg] 145 mm[Hg] e CW1 ([facility]) Body temperature 97.2 [degF] 97.2 [degF] eCW1 ( [facility]) Respiratory rate 16 /min 16 /min eCW1 ([facility]) Heart rate 84 /min 84 /min eCW1 ([facility]) Body mass index (BMI) [Ratio] 19.23 kg/m2 19.23 kg/m2 eCW1 ([facility]) Body height [in_i] eCW1 ([facility]) Body weight 158 [lb_av] 158 [lb_av] eCW1 [facility] Diastolic blood pressure 81 mm[Hg] 81 mm[Hg] eCW1 ([facility]) Systolic blood pressure 141 mm[Hg] 141 mm[Hg] e CW1 ([facility]) Body temperature 97.2 [degF] 97.2 [degF] eCW1 ( [facility]) Respiratory rate 17 /min 17 /min eCW1 ([facility]) Heart rate 91 /min 91 /min eCW1 ([facility]) Body mass index (BMI) [Ratio] 19.23 kg/m2 19.23 kg/m2 eCW1 ([facility]) Body height [in_i] eCW1 ([facility]) Body weight kg eCW1 ([facility]) Body weight 158 [lb_av] 158 [lb_av] eCW1 ([facility]) Body mass index (BMI) [Ratio] 21.6 kg/m2 21.6 k g/m2 [facility] ([facility]) Body weight 168.50 [lb_av] 168.50 [lb_av] MEDEN T ([facility]) Body height 74 [in_i] 74 [in_i] [facility] ([facility]) 6'2" Body temperature 97.6 [degF] 97.6 [degF] [facility] ([facility]) Diastolic blood pressure 80 mm[Hg] 80 mm[Hg] [facility] ([facility]) Systolic blood pressure 134 mm[Hg] 134 mm[Hg] M EDENT ([facility]) Diastolic blood pressure 78 mm[Hg] 78 mm[Hg] eCW1 ([facility]) Systolic blood pressure 151 mm[Hg] 151 mm[Hg] e CW1 ([facility]) Body temperature 95.6 [degF] 95.6 [degF] eCW1 ( [facility]) Respiratory rate 18 /min 18 /min eCW1 ([facility]) Heart rate 83 /min 83 /min eCW1 ([facility]) Body mass index (BMI) [Ratio] 19.23 kg/m2 19.23 kg/m2 eCW1 ([facility]) Body height [in_i] eCW1 ([facility]) Body weight kg eCW1 ([facility]) Body weight 158 [lb_av] 158 [lb_av] eCW1 ([facility]) Diastolic blood pressure 68 mm[Hg] 68 mm[Hg] eCW1 ([facility]) Systolic blood pressure 136 mm[Hg] 136 mm[Hg] e CW1 ([facility]) Body temperature 96.4 [degF] 96.4 [degF] eCW1 ( [facility]) Respiratory rate 18 /min 18 /min eCW1 ([facility]) Heart rate 82 /min 82 /min eCW1 ([facility]) Body mass index (BMI) [Ratio] 19.23 kg/m2 19.23 kg/m2 eCW1 ([facility]) Body height [in_i] eCW1 ([facility]) Body weight kg eCW1 ([facility]) Body weight 158 [lb_av] 158 [lb_av] eCW1 ([facility]) Diastolic blood pressure 65 mm[Hg] 65 mm[Hg] eCW1 ([facility]) Systolic blood pressure 120 mm[Hg] 120 mm[Hg] e CW1 ([facility]) Body temperature 97.6 [degF] 97.6 [degF] eCW1 ( [facility]) Respiratory rate 18 /min 18 /min eCW1 ([facility]) Heart rate 89 /min 89 /min eCW1 ([facility]) Body mass index (BMI) [Ratio] 19.30 kg/m2 19.30 kg/m2 eCW1 ([facility]) Body height [in_i] eCW1 ([facility]) Body weight kg eCW1 ([facility]) Body weight 158.6 [lb_av] 158.6 [lb_av] eCW1 ([facility]) Diastolic blood pressure 70 mm[Hg] 70 mm[Hg] [facility] ([facility]) Systolic blood pressure 112 mm[Hg] 112 mm[Hg] M EDENT ([facility]) Diastolic blood pressure 74 mm[Hg] 74 mm[Hg] [facility] ([facility]) sitting, regular cuff Systolic blood pressure 112 mm[Hg] 112 mm[Hg] M EDENT ([facility]) sitting, regular cuff Heart rate 80 /min 80 /min [facility] ([facility]) Regular Body mass index (BMI) [Ratio] 19.5 kg/m2 19.5 k g/m2 [facility] ([facility]) Body height 76 [in_i] 76 [in_i] [facility] 6'4" Body weight 160.00 [lb_av] 160.00 [lb_av] MED[facility] T ([facility]) Diastolic blood pressure 82 mm[Hg] 82 mm[Hg] eCW1 ([facility]) Systolic blood pressure 152 mm[Hg] 152 mm[Hg] e CW1 ([facility]) Body temperature 97.2 [degF] 97.2 [degF] eCW1 ( [facility]) Respiratory rate 18 /min 18 /min eCW1 ([facility]) Heart rate 93 /min 93 /min eCW1 ([facility]) Body mass index (BMI) [Ratio] 19.30 kg/m2 19.30 kg/m2 eCW1 ([facility]) Body height [in_i] eCW1 ([facility]) Body weight kg eCW1 ([facility]) Body weight 158.6 [lb_av] 158.6 [lb_av] eCW1 ([facility]) Diastolic blood pressure 84 mm[Hg] 84 mm[Hg] eCW1 ([facility]) Systolic blood pressure 130 mm[Hg] 130 mm[Hg] e CW1 ([facility]) Body temperature 96.6 [degF] 96.6 [degF] eCW1 ( [facility]) Respiratory rate 18 /min 18 /min eCW1 ([facility]) Heart rate 104 /min 104 /min eCW1 ([facility]) Body mass index (BMI) [Ratio] 19.30 kg/m2 19.30 kg/m2 W1 ([facility]) Body height [in_i] eCW1 ([facility]) Body weight 158.6 [lb_av] 158.6 [lb_av] eCW1 ([facility]) Diastolic blood pressure 80 mm[Hg] 80 mm[Hg] eCW1 ([facility]) Systolic blood pressure 185 mm[Hg] 185 mm[Hg] e CW1 ([facility]) Body temperature 97.1 [degF] 97.1 [degF] eCW1 ( [facility]) Respiratory rate 16 /min 16 /min eCW1 ([facility]) Heart rate 85 /min 85 /min eCW1 ([facility]) Body mass index (BMI) [Ratio] 20.08 kg/m2 20.08 kg/m2 eCW1 ([facility]) Body height [in_i] eCW1 ([facility]) Body weight 165 [lb_av] 165 [lb_av] eCW1 ([facility]) Oxygen saturation in Arterial blood by Pulse oximetry 100 % 100 % [facility] ([facility] Body mass index (BMI) [Ratio] 21.6 kg/m2 21.6 k g/m2 [facility] ([facility]) Body weight 168.38 [lb_av] 168.38 [lb_av] MED[facility] T ([facility]) Body height 74 [in_i] 74 [in_i] [facility] ([facility]) 6'2" Heart rate 69 /min 69 /min [facility] ([facility]) Diastolic blood pressure 80 mm[Hg] 80 mm[Hg] [facility] ([facility]) Systolic blood pressure 136 mm[Hg] 136 mm[Hg] M EDENT ([facility]) Body mass index (BMI) [Ratio] 22.0 kg/m2 22.0 k g/m2 [facility] ([facility]) Body weight 171.00 [lb_av] 171.00 [lb_av] [facility] T ([facility]) Body height 74 [in_i] 74 [in_i] [facility] ([facility]) 6'2" Diastolic blood pressure 72 mm[Hg] 72 mm[Hg] eCW1 ([facility]) Systolic blood pressure 120 mm[Hg] 120 mm[Hg] e CW1 ([facility]) Body temperature 96.4 [degF] 96.4 [degF] eCW1 ( [facility]) Respiratory rate 18 /min 18 /min eCW1 ([facility]) Heart rate 73 /min 73 /min eCW1 ([facility]) Body mass index (BMI) [Ratio] 21.15 kg/m2 21.15 kg/m2 eCW1 ([facility]) Body height [in_us] eCW1 ([facility]) Body weight Measured 173.8 [lb_av] 173.8 [lb_av ] eCW1 ([facility]) Body mass index (BMI) [Ratio] 22.2 kg/m2 22.2 k g/m2 [facility] ([facility]) Body weight 175.00 [lb_av] 175.00 [lb_av] MED[facility] T ([facility]) Body height 74.50 [in_i] 74.50 [in_i] [facility] ([facility]) 6'2.50" Diastolic blood pressure 66 mm[Hg] 66 mm[Hg] [facility] ([facility]) Sitting Systolic blood pressure 122 mm[Hg] 122 mm[Hg] M EDENT ([facility]) Sitting Diastolic blood pressure 68 mm[Hg] 68 mm[Hg] [facility] ([facility]) Sitting, regular cuff Systolic blood pressure 122 mm[Hg] 122 mm[Hg] M EDENT ([facility]) Sitting, regular cuff Respiratory rate 16 /min 16 /min [facility] ( [facility]) Heart rate 84 /min 84 /min [facility] ([facility]) Regular Body mass index (BMI) [Ratio] 21.8 kg/m2 21.8 k g/m2 [facility] ([facility]) Body height 76 [in_i] 76 [in_i] [facility] ([facility] 6'4" Body weight 179.00 [lb_av] 179.00 [lb_av] [facility] T ([facility]) Diastolic blood pressure 84 mm[Hg] 84 mm[Hg] eCW1 ([facility]) Systolic blood pressure 130 mm[Hg] 130 mm[Hg] e CW1 ([facility]) Body temperature 96.4 [degF] 96.4 [degF] eCW1 ( [facility]) Respiratory rate 18 /min 18 /min eCW1 ([facility]) Heart rate 129 /min 129 /min eCW1 ([facility]) Body mass index (BMI) [Ratio] 22.13 kg/m2 22.13 kg/m2 eCW1 ([facility]) Body height [in_us] eCW1 ([facility]) Body weight Measured 181.8 [lb_av] 181.8 [lb_av ] eCW1 ([facility]) Oxygen saturation in Arterial blood by Pulse oximetry 98 % 98 % [facility] ([facility]) Body mass index (BMI) [Ratio] 23.4 kg/m2 23.4 k g/m2 [facility] ([facility]) Body weight 182.38 [lb_av] 182.38 [lb_av] [facility] T ([facility]) Body height 74 [in_i] 74 [in_i] [facility] ([facility]) 6'2" Heart rate 122 /min 122 /min [facility] ([facility]) Diastolic blood pressure 88 mm[Hg] 88 mm[Hg] [facility] ([facility]) Systolic blood pressure 140 mm[Hg] 140 mm[Hg] M EDENT ([facility]) Patient Treatment Plan of Care Planned Activity Planned Date Details Description Data Source (s) Wheelchair - 10/19/2020 12:00:00 AM EST e CW1 ([facility]) Wheelchair - 10/19/2020 12:00:00 AM EST e CW1 ([facility]) Wheelchair - 10/19/2020 12:00:00 AM EST e CW1 ([facility]) sildenafil 100 MG Oral Tablet 03/25/2020 12:00:00 AM EDT eCW1 ([facility]) sildenafil 100 MG Oral Tablet 03/25/2020 12:00:00 AM EDT eCW1 ([facility]) ferrous sulfate 325 MG Oral Tablet 11/06/2019 12:00:00 AM EST eCW1 ([facility])
[2020-11-08] MEDS ORDERED: HumaLOG INSULIN (NovoLOG) PER UNIT SC SCH (21:00)
--- NOTE | 2020-11-08 21:15 | REPVR ---
PROCEDURE INFORMATION: Exam: CT Head Without Contrast Exam date and time: 11/08/2020 8:44 PM Age: 70 years old Clinical indication: Altered mental status/memory loss TECHNIQUE: Imaging protocol: Computed tomography of the head without contrast. Radiation optimization: All CT scans at this facility use at least one of these dose optimization techniques: automated exposure control; mA and/or kV adjustment per patient size (includes targeted exams where dose is matched to clinical indication); or iterative reconstruction. 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 There is mild prominence of the peripheral sulci. Cerebral ventricles: There is mild prominence of the central ventricular system. Bones/joints: Fenestrated metallic plate along the left orbital floor with screws at the inferior orbital rim consistent with old injury. Paranasal sinuses: Visualized sinuses are unremarkable. No fluid levels. Mastoid air cells: Visualized mastoid air cells are well aerated. Soft tissues: Unremarkable. IMPRESSION: 1. 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 2. Residua of ORIF of left orbital floor fracture which is similar. Electronically signed by: Maurice Aguilera On 11/08/2020 21:15:51 PM
--- NOTE | 2020-11-08 21:18 | REPVR ---
PROCEDURE INFORMATION: Exam: XR Chest, 2 Views Exam date and time: 11/08/2020 8:49 PM Age: 70 years old Clinical indication: Other: AMS; Additional info: Altered mental status TECHNIQUE: Imaging protocol: XR of the chest Views: 2 views. COMPARISON: CR PORTABLE CHEST X-RAY 10/21/2020 6:43 PM FINDINGS: Lungs: The lungs are unchanged. Pleural space: Minimal pleural scar is noted in the lateral right base. No pneumothorax and no pleural effusion. Heart/Mediastinum: The heart and mediastinum are unchanged. Bones/joints: The osseous structures are unchanged. IMPRESSION: Stable essentially negative chest since 10/21/2020. Electronically signed by: Maurice Aguilera On 11/08/2020 21:17:46 PM
[2020-11-08 21:27] LABS: ALBUMIN 3.4 GM/DL (3.2-5.2); ALT/SGPT 20 U/L (12-78); BILIRUBIN,DIRECT 0.2 MG/DL (0.0-0.2); BILIRUBIN,TOTAL 0.4 MG/DL (0.2-1.0); BLOOD UREA NITROGEN 56 MG/DL (7-18); CALCIUM LEVEL 9.4 MG/DL (8.8-10.2); CARBON DIOXIDE LEVEL 24 MEQ/L (21-32); CHLORIDE LEVEL 93 MEQ/L (98-107); CK-MB VALUE MASS 4.3 NG/ML (<3.6); CPK CREATINE PHOSPHOKINASE 70 U/L (39-308); CREATININE FOR GFR 1.32 MG/DL (0.70-1.30); ETHYL ALCOHOL (ETHANOL) < 0.003 % (0.000-0.010); FREE T4 1.16 NG/DL (0.76-1.46); GLOMERULAR FILTRATION RATE 57.1 (>42); GLUCOSE, FASTING 636 MG/DL (70-100); LIPASE 42 U/L (73-393); MB/CK RELATIVE INDEX 6.14 (< OR =4); POTASSIUM SERUM 4.7 MEQ/L (3.5-5.1); SODIUM LEVEL 126 MEQ/L (136-145); TOTAL PROTEIN 7.2 GM/DL (6.4-8.2); TROPONIN I < 0.02 NG/ML (< 0.10)
[2020-11-08 21:56] LABS: ACETONE/KETONE 15.65 MG/DL (<2.81)
[2020-11-08] MEDS ORDERED: ACETAMINOPHEN TAB 650MG DOSE (2X325MG) PO PRN (22:30)
[2020-11-08] MEDS ORDERED: GLUCAGON INJ 1MG VIAL SC PRN (22:30)
[2020-11-08] MEDS ORDERED: GLUCOSE 4GM CHEW TABLET PO PRN (22:30)
[2020-11-08] MEDS ORDERED: DEXTROSE 50% 50 ML SYRINGE IV PRN (22:30)
[2020-11-08 22:36] LABS: RSV AMPLIFICATION NEGATIVE (NEGATIVE)
[2020-11-08] MEDS ORDERED: LEVEMIR (INSULIN DETEMIR) 1 UNITS/0.01ML SC ONE (22:45)
[2020-11-08] MEDS ORDERED: GLUC1KIT IM (22:48)
[2020-11-08] MEDS ORDERED: FAMO40TA3 PO (22:48)
[2020-11-08] MEDS ORDERED: ESOM1CAP5 PO (22:48)
[2020-11-08 22:50] LABS: ABG BASE EXCESS -1.5 (-2.0-2.0); ABG HCO3 23.9 MEQ/L (22.0-26.0); ABG O2 SATURATION 97.6 % (95.0-99.0); ABG PARTIAL PRESSURE CO2 43.7 mmHg (35.0-45.0); ABG STANDARD HCO3 23.2 MEQ/L (22.0-26.0); ABG TOTAL CO2 25.3 MEQ/L (23.0-31.0); ABG pH (ARTERIAL) 7.356 UNITS (7.350-7.450)
--- OUTSIDE RECORDS SUMMARY | 2020-11-08 23:11 | CCD ---
Author Author [facility] Organization [facility] Address Unknown Phone Unavailable Care Team Providers Care Field Underwriter Name Role Phone Saran Barros Unavailable Unavailable [...] ANTECOL, Julienne FRANKLIN MD Unavailable Unavailable Fish, [facility], PA-C Unavailable Unavailabl e Fish, [facility], PA-C Unavailable Unavailabl e Fish, [facility], PA-C Unavailable Unavailabl e Fish, [facility], PA-C Unavailable Unavailabl e Fish, [facility], PA-C Unavailable Unavailabl e Fish, [facility], PA-C Unavailable Unavailabl e Fish, [facility], PA-C Unavailable Unavailabl e Fish, [facility], PA-C Unavailable Unavailabl e Fish, [facility], PA-C Unavailable Unavailabl e Fish, [facility], PA-C Unavailable Unavailabl e Fish, [facility], PA-C Unavailable Unavailabl e Fish, [facility], PA-C Unavailable Unavailabl e Fish, [facility], PA-C Unavailable Unavailabl e Fish, [facility], PA-C Unavailable Unavailabl e Fish, [facility], PA-C Unavailable Unavailabl e Fish, [facility], PA-C Unavailable Unavailabl e Fish, [facility], PA-C Unavailable Unavailabl e Fish, [facility], PA-C Unavailable Unavailabl e Fish, [facility], PA-C Unavailable Unavailabl e Fish, [facility], PA-C Unavailable Unavailabl e Fish, [facility], PA-C Unavailable Unavailabl e Fish, [facility], PA-C Unavailable Unavailabl e Fish, [facility], PA-C Unavailable Unavailabl e Fish, [facility], PA-C Unavailable Unavailabl e Fish, [facility], PA-C Unavailable Unavailabl e Fish, [facility], PA-C Unavailable Unavailabl e Fish, [facility], PA-C Unavailable Unavailabl e Fish, [facility], PA-C Unavailable Unavailabl e Fish, [facility], PA-C Unavailable Unavailabl e Fish, [facility], PA-C Unavailable Unavailabl e Fish, [facility], PA-C Unavailable Unavailabl e Fish, [facility], PA-C Unavailable Unavailabl e Fish, [facility], PA-C Unavailable Unavailabl e MAJAK, Radha CLANCY [...] MAJAK, R JULIETH DPM Unavailable Unavailable Fish, [facility], PA-C Unavailable Unavailabl e Fish, [facility], PA-C Unavailable Unavailabl e Fish, [facility], PA-C Unavailable Unavailabl e Fish, [facility], PA-C Unavailable Unavailabl e Fish, [facility], PA-C Unavailable Unavailabl e Fish, [facility], PA-C Unavailable Unavailabl e Fish, [facility], PA-C Unavailable Unavailabl e Fish, [facility], PA-C Unavailable Unavailabl e Fish, [facility], PA-C Unavailable Unavailabl e Fish, [facility], PA-C Unavailable Unavailabl e Fish, [facility], PA-C Unavailable Unavailabl e Fish, [facility], PA-C Unavailable Unavailabl e Fish, [facility], PA-C Unavailable Unavailabl e Fish, [facility], PA-C Unavailable Unavailabl e Fish, [facility], PA-C Unavailable Unavailabl e Fish, [facility], PA-C Unavailable Unavailabl e Fish, [facility], PA-C Unavailable Unavailabl e Fish, [facility], PA-C Unavailable Unavailabl e Fish, [facility], PA-C Unavailable Unavailabl e Fish, [facility], PA-C Unavailable Unavailabl e Fish, [facility], PA-C Unavailable Unavailabl e Fish, [facility], PA-C Unavailable Unavailabl e Fish, [facility], PA-C Unavailable Unavailabl e Fish, [facility], PA-C Unavailable Unavailabl e Fish, [facility], PA-C Unavailable Unavailabl e Fish, [facility], PA-C Unavailable Unavailabl e Fish, [facility], PA-C Unavailable Unavailabl e Fish, [facility], PA-C Unavailable Unavailabl e Fish, [facility], PA-C Unavailable Unavailabl e Fish, [facility], PA-C Unavailable Unavailabl e Fish, [facility], PA-C Unavailable Unavailabl e Fish, [facility], PA-C Unavailable Unavailabl e Fish, [facility], PA-C Unavailable Unavailabl e Fish, B Harry [...] B Harry PHILIP Unavailable Unavailable Fish, B Haryr PHILIP Unavailable Unavailable Fish, B Harry PHILIP [...] is protected by Article 27-F of the [facility] Public Health law. If you continue you may have access to information: Regarding HIV / AIDS; Provided by facilities licensed or operated by the [facility] Office of Mental Health; or Provided by the [facility] Office for People With Developmental Disabilities. If such information is present, then the following [facility] mandated warning applies: This information [...] law may result in a fine or chcf sentence or both. A general authorization for the release of medical or other information is NOT sufficient authorization for further disc losure. Allergies and Adverse Reactions Type Description Substance Reaction Status Data Source(s ) No Known Allergies No Known Allergies [facility] Environmental Environmental Environmental Unknown Active eCW1 ([facility]) Environmental Environmental Environmental Unknown Active eCW1 ([facility]) Family History Family Member Name Family Member Gender Family Member Status Date o f Status Description Data Source(s) Unknown Unknown Problem MEDENT ([facility]) Unknown Male Problem MEDENT ([facility]) Unknown [facility] Problem MEDENT ([facility]) Unknown Female Problem MEDENT ([facility]) Unknown Female Problem MEDENT ([facility] Encounters Encounter Providers Location Date Indications Data Source(s ) Unknown [address] [facility] [address] 10/28/2020 12:00:00 AM EST eCW1 ([facility]) [place] [address] [facility] [facility] [place] [address] 10/25/2020 12:00:00 AM EST eCW1 ([facility]) [place]patient [address] [facility] [place] [address] 10/25/2020 12:00:00 AM EST eCW1 ([facility]) Unknown [address] [facility] [place] [address] 10/25/2020 12:00:00 AM EST eCW1 ([facility]) [place] [address] [facility] [address] 10/25/2020 12:00:00 AM EST eCW1 ([facility]) Outpatient [address] [facility] [address] 10/19/2020 12:00:00 AM EST eCW1 ([facility]) ([id number]) For Template [employer] [address] [place] [address] 10/19/2020 12:00:00 AM EST eCW1 ([facility]) Unknown [address] [facility] [address] 10/19/2020 12:00:00 AM EST eCW1 ([facility]) [place] [address] [facility] [address] 10/18/2020 12:00:00 AM EST eCW1 ([facility]) [place] [address] [facility] [address] 10/18/2020 12:00:00 AM EST eCW1 ([facility]) Unknown [address] [facility] [address] 10/14/2020 12:00:00 AM EST eCW1 ([facility]) Unknown [address] [facility] [address] 10/11/2020 12:00:00 AM EST eCW1 ([facility]) Unknown [address] [facility] [address] 10/07/2020 12:00:00 AM EST eCW1 ([facility]) ([id number]) For [employer] [address] [place] [address] 10/06/2020 12:00:00 AM EST eCW1 ([facility]) ([id number]) For [employer] [address] [place] [address] 09/29/2020 12:00:00 AM EST eCW1 ([facility]) Outpatient [address] [facility] [address] 09/21/2020 12:00:00 AM EST eCW1 ([facility]) Unknown [address] [facility] [address] 09/08/2020 12:00:00 AM EST eCW1 ([facility]) Unknown [address] [facility] [address] 09/01/2020 12:00:00 AM EST eCW1 ([facility]) Unknown [address] [facility] [address] 08/25/2020 12:00:00 AM EST [facility]CW1 [facility] Unknown [address] [facility] [address] 08/24/2020 12:00:00 AM EST eCW1 [facility]) Outpatient Attender: Deborah Caldwell MD Physical Therapy 08/20 01:30:00 PM EDT MEDENT ([facility]) Unknown [address] [facility] [address] 08/20/2020 12:00:00 AM EDT eCW1 ([facility]) ([id number]) For [employer] [address] [place] [address] 08/18/2020 12:00:00 AM EDT eCW1 ([facility]) Unknown [address] [facility] [address] 08/18/2020 12:00:00 AM EDT eCW1 ([facility]) Unknown [address] [facility] [place] [address] 08/18/2020 12:00:00 AM EDT eCW1 ([facility]) Office Visit Attender: RIGOBERTO HERRERA MD Main Office 08/13/2020 10: 06:00 AM EDT MEDENT ([facility]) ([id number]) For [employer] [address] [place] [address] 08/04/2020 12:00:00 AM EDT eCW1 ([facility]) Unknown [address] [facility] [place] [address] 08/02/2020 12:00:00 AM EDT eCW1 ([facility]) Unknown [address] [facility] Y [address] 07/30/2020 12:00:00 AM EDT eCW1 ([facility]) ([id number]) For [employer] [address] [place] [address] 07/28/2020 12:00:00 AM EDT eCW1 ([facility]) Unknown [address] [facility] [place] [address] 07/28/2020 12:00:00 AM EDT eCW1 ([facility]) Outpatient Attender: Dxiie RAMIREZ Main Office 07/26/2020 10:45:00 AM EDT MEDENT ([facility]) Office Visit, Est Pt., Level 3 FC [address] [place] [address] 07/23/2020 12:00:00 AM EDT eCW1 ([facility]) Office Visit, Est Pt., Level 3 PC [address] [place] [address] 07/22/2020 12:00:00 AM EDT eCW1 ([facility]) Outpatient [address] [facility] [address] 07/21/2020 12:00:00 AM EDT eCW1 ([facility]) Office Visit Attender: RIGOBERTO HERRERA MD Main Office 07/08/2020 10: 43:00 AM EDT MEDENT ([facility]) Outpatient Attender: JULIETH BURDICK [facility] Office 12/2019 01:30:00 PM EDT MEDENT ([facility] Emergency Attender: CEDRICK Hernandezsultant: Jimmy dahl MD 06/09/2020 01:20:00 PM EDT - [facility]09[facility] Attender: JULIETH BURDICK [facility] Office 05/22 01:15:00 PM EDT MEDENT ([facility] Outpatient Attender: Deborah Caldwell MD Physical Therapy 05/18 11:30:00 AM EDT MEDENT ([facility]) Unknown [address] [facility] [place] [address] 05/14/2020 12:00:00 AM EDT eCW1 ([facility]) [facility] [address] [facility] [place] [address] 05/14/2020 12:00:00 AM EDT eCW1 ([facility]) Unknown [address] [facility] [place] [address] 05/10/2020 12:00:00 AM EDT eCW1 ([facility]) Outpatient Attender: JULIETH BURDICK [facility] Office 06/2020 10:30:00 AM EDT MEDENT ([facility] Unknown [address] [facility] [place] [address] 03/25/2020 12:00:00 AM EDT eCW1 ([facility]) Outpatient Attender: Becky HANSON PA-C Physical Therapy 02/24/2020 10:30:00 AM EDT MEDENT ([facility]) [facility] [address] [facility] [place] [address] 02/17/2020 12:00:00 AM EDT eCW1 ([facility]) Outpatient Referrer: Becky HANSON PA-C 02/13/2020 06:4 1:00 AM EDT [facility] Outpatient Attender: Deborah Caldwell MD Physical Therapy 02/09 11:15:00 AM EDT MEDENT ([facility]) [facility] [address] [facility] [place] [address] 02/06/2020 12:00:00 AM EDT eCW1 ([facility]) [facility] [place] [address] [facility] [place] [address] 02/06/2020 12:00:00 AM EDT eCW1 ([facility]) [facility] [place] [address] [facility] [address] 02/03/2020 12:00:00 AM EDT eCW1 ([facility]) [facility] [place] [address] [facility] [place] [address] 01/28/2020 12:00:00 AM EDT eCW1 ([facility]) [facility] [place] [address] [facility] [address] 01/28/2020 12:00:00 AM EDT eCW1 ([facility]) Outpatient Referrer: Becky HANSON PA-C 12/25/2019 12:3 6:00 PM EST [facility] [place] [address] [place] [address], [place] [address] 12/22/2019 12:00:00 AM EST eCW1 ([facility]) Outpatient Attender: Harry Caldwell MD Physical Therapy 11/26/2019 0 2:15:00 PM EST MEDENT ([facility] Outpatient Attender: Dixie RAMIREZ Main Office 11/14/2019 08:45:00 AM EST MEDENT ([facility]) [facility] [place] [address] [facility] [address] 11/12/2019 12:00:00 AM EST eCW1 ([facility]) [facility] [place] [address] [place] [address], [place] [address] 11/10/2019 12:00:00 AM EST eCW1 ([facility]) [facility] [place] [address] [facility] [address] 11/06/2019 12:00:00 AM EST eCW1 ([facility]) [facility] [place] [address] [facility] [address] 11/04/2019 12:00:00 AM EST eCW1 ([facility]) Outpatient Attender: Deborah Caldwell MD Physical Therapy 11/03 10:45:00 AM EST MEDENT ([facility]) Outpatient Attender: Giselle Barros MD Main office - [place] 10/07/2019 10:45:00 AM EST MEDENT ([facility]) Immunizations Vaccine Date Status Description Data Source(s) influenza, recombinant, quadrIvalent,injectable, prese rvative free 08/04/2020 07:43:00 AM EDT completed eCW1 ([facility]) influenza, recombinant, quadrIvalent,injectable, prese rvative free 08/04/2020 07:43:00 AM EDT completed eCW1 ([facility]) influenza, recombinant, quadrIvalent,injectable, prese rvative free 08/04/2020 07:43:00 AM EDT completed eCW1 ([facility]) influenza, recombinant, quadrIvalent,injectable, prese rvative free 08/04/2020 07:43:00 AM EDT completed eCW1 ([facility]) influenza, recombinant, quadrIvalent,injectable, prese rvative free 08/04/2020 07:43:00 AM EDT completed eCW1 ([facility]) influenza, recombinant, quadrIvalent,injectable, prese rvative free 08/04/2020 07:43:00 AM EDT completed eCW1 ([facility]) influenza, recombinant, quadrIvalent,injectable, prese rvative free 08/04/2020 07:43:00 AM EDT completed eCW1 ([facility]) influenza, recombinant, quadrIvalent,injectable, prese rvative free 08/04/2020 07:43:00 AM EDT completed eCW1 ([facility]) influenza, recombinant, quadrIvalent,injectable, prese rvative free 08/04/2020 07:43:00 AM EDT completed eCW1 ([facility]) influenza, recombinant, quadrIvalent,injectable, prese rvative free 08/04/2020 07:43:00 AM EDT completed eCW1 ([facility]) influenza, recombinant, quadrIvalent,injectable, prese rvative free 08/04/2020 07:43:00 AM EDT completed eCW1 ([facility]) influenza, recombinant, quadrIvalent,injectable, prese rvative free 08/04/2020 07:43:00 AM EDT completed eCW1 ([facility]) influenza, recombinant, quadrIvalent,injectable, prese rvative free 08/04/2020 07:43:00 AM EDT completed eCW1 ([facility]) influenza, recombinant, quadrIvalent,injectable, prese rvative free 08/04/2020 07:43:00 AM EDT completed eCW1 ([facility]) influenza, recombinant, quadrIvalent,injectable, prese rvative free 08/04/2020 07:43:00 AM EDT completed eCW1 ([facility]) influenza, recombinant, quadrIvalent,injectable, prese rvative free 08/04/2020 07:43:00 AM EDT completed eCW1 ([facility]) influenza, recombinant, quadrIvalent,injectable, prese rvative free 08/04/2020 07:43:00 AM EDT completed eCW1 ([facility]) influenza, recombinant, quadrIvalent,injectable, prese rvative free 08/04/2020 07:43:00 AM EDT completed eCW1 ([facility]) influenza, recombinant, quadrIvalent,injectable, prese rvative free 08/04/2020 07:43:00 AM EDT completed eCW1 ([facility]) influenza, recombinant, quadrIvalent,injectable, prese rvative free 08/04/2020 07:43:00 AM EDT completed eCW1 ([facility]) influenza, recombinant, quadrIvalent,injectable, prese rvative free 08/04/2020 07:43:00 AM EDT completed eCW1 ([facility]) influenza, recombinant, quadrIvalent,injectable, prese rvative free 08/04/2020 07:43:00 AM EDT completed eCW1 ([facility]) influenza, recombinant, quadrIvalent,injectable, prese rvative free 08/04/2020 07:43:00 AM EDT completed eCW1 ([facility]) influenza, recombinant, quadrIvalent,injectable, prese rvative free 08/04/2020 07:43:00 AM EDT completed eCW1 ([facility]) influenza, recombinant, quadrIvalent,injectable, prese rvative free 08/04/2020 07:43:00 AM EDT completed eCW1 ([facility]) influenza, recombinant, quadrIvalent,injectable, prese rvative free 08/04/2020 07:43:00 AM EDT completed eCW1 ([facility]) influenza, recombinant, quadrIvalent,injectable, prese rvative free 08/04/2020 07:43:00 AM EDT completed eCW1 ([facility]) influenza, recombinant, quadrIvalent,injectable, prese rvative free 08/04/2020 07:43:00 AM EDT completed eCW1 ([facility]) influenza, recombinant, quadrIvalent,injectable, prese rvative free 08/04/2020 07:43:00 AM EDT completed eCW1 ([facility]) INFLUENZA VIRUS VACCINE QUADRIVAL [id number](6 MOS AND UP)/PF 06/20/2020 12:00:00 AM EDT [...] 12:00:00 AM EST active Wheelchair - eCW1 ([facility]) Wheelchair - Wheelchair - 10/19/2020 12:00:00 AM EST active Wheelchair - eCW1 ([facility]) Wheelchair - Wheelchair - 10/19/2020 12:00:00 AM EST active Wheelchair - eCW1 ([facility]) 40 mg 10/19/2020 12:00:00 AM EST capsule,delayed [...] 12:00:00 AM EST active Wheelchair - eCW1 ([facility]) 300 mg 10/19/2020 12:00:00 AM EST capsule 8 TAKE TWO CAPSULES BY MOUTH EVERY DAY TAKE TWO CAPSULES BY MOUTH EVERY DAY SOLD: 10/19/2020 [facility] Wheelchair - Wheelchair - 10/19/2020 12:00:00 AM EST active Wheelchair - eCW1 ([facility]) Wheelchair - Wheelchair - 10/19/2020 12:00:00 AM EST active Wheelchair - eCW1 ([facility]) Wheelchair - Wheelchair - 10/19/2020 12:00:00 AM EST active Wheelchair - eCW1 ([facility]) 50 mg 10/19/2020 12:00:00 AM EST tablet [...] 12:00:00 AM EST active Wheelchair - eCW1 ([facility]) 20 mg 10/19/2020 12:00:00 AM EST tablet 30 TAKE ONE TABLET BY MOUTH EVERY DAY TAKE ONE TABLET BY MOUTH EVERY DAY SOLD: 10/19/2020 [facility] Wheel[facility] - Wheelchair - 10/19/2020 12:00:00 AM EST active Wheelchair - eCW1 ([facility]) 20 mg 10/19/2020 12:00:00 AM EST tablet 30 TAKE ONE TABLET BY MOUTH EVERY DAY TAKE ONE TABLET BY MOUTH EVERY DAY SOLD: 10/19/2020 [facility] Wheelchair - Wheelchair - 10/19/2020 12:00:00 AM EST active Wheelchair - eCW1 ([facility]) 100 mg 10/19/2020 12:00:00 AM EST tablet [...] EDT ORAL active MEDENT ([facility]) Magnesium 07/25/2020 12:00:00 AM EDT ORAL active MEDENT ([facility]) QC Tumeric Complex 07/25/2020 12:00:00 AM EDT ORAL active MEDENT ([facility]) lansoprazole 30 MG Delayed Release Oral Capsule [Prevacid] P revacid 07/25/2020 12:00:00 AM EDT ORAL active M EDENT ([facility]) Mometasone Furoate Mometasone Furoate 07/25/2020 12:00:00 AM EDT active MEDENT ([facility]) 20 mg 07/07/2020 12:00:00 AM EDT capsule [...] activ e Sildenafil Citrate 100 MG eCW1 ([facility]) sildenafil 100 MG Oral Tablet Sildenafil Citrate 100 M G Sildenafil Citrate 100 MG 03/25/2020 12:00:00 AM EDT 1.0 {tablet} activ e Sildenafil Citrate 100 MG eCW1 ([facility]) sildenafil 100 MG Oral Tablet Sildenafil Citrate 100 M G Sildenafil Citrate 100 MG 03/25/2020 12:00:00 AM EDT 1.0 {tablet} activ e Sildenafil Citrate 100 MG eCW1 ([facility]) sildenafil 100 MG Oral Tablet Sildenafil Citrate 100 M G Sildenafil Citrate 100 MG 03/25/2020 12:00:00 AM EDT 1.0 {tablet} activ e Sildenafil Citrate 100 MG eCW1 ([facility]) sildenafil 100 MG Oral Tablet Sildenafil Citrate 100 M G Sildenafil Citrate 100 MG 03/25/2020 12:00:00 AM EDT 1.0 {tablet} suspe nded Sildenafil Citrate 100 MG eCW1 ([facility]) sildenafil 100 MG Oral Tablet Sildenafil Citrate 100 M G Sildenafil Citrate 100 MG 03/25/2020 12:00:00 AM EDT 1.0 {tablet} activ e Sildenafil Citrate 100 MG eCW1 ([facility]) sildenafil 100 MG Oral Tablet Sildenafil Citrate 100 M G Sildenafil Citrate 100 MG 03/25/2020 12:00:00 AM EDT 1.0 {tablet} activ e Sildenafil Citrate 100 MG eCW1 ([facility]) sildenafil 100 MG Oral Tablet Sildenafil Citrate 100 M G Sildenafil Citrate 100 MG 03/25/2020 12:00:00 AM EDT 1.0 {tablet} suspe nded Sildenafil Citrate 100 MG eCW1 ([facility]) sildenafil 100 MG Oral Tablet Sildenafil Citrate 100 M G Sildenafil Citrate 100 MG 03/25/2020 12:00:00 AM EDT 1.0 {tablet} activ e Sildenafil Citrate 100 MG eCW1 ([facility]) sildenafil 100 MG Oral Tablet Sildenafil Citrate 100 M G Sildenafil Citrate 100 MG 03/25/2020 12:00:00 AM EDT 1.0 {tablet} activ e Sildenafil Citrate 100 MG eCW1 ([facility]) sildenafil 100 MG Oral Tablet Sildenafil Citrate 100 M G Sildenafil Citrate 100 MG 03/25/2020 12:00:00 AM EDT 1.0 {tablet} activ e Sildenafil Citrate 100 MG eCW1 ([facility]) sildenafil 100 MG Oral Tablet Sildenafil Citrate 100 M G Sildenafil Citrate 100 MG 03/25/2020 12:00:00 AM EDT 1.0 {tablet} activ e Sildenafil Citrate 100 MG eCW1 ([facility]) sildenafil 100 MG Oral Tablet Sildenafil Citrate 100 M G Sildenafil Citrate 100 MG 03/25/2020 12:00:00 AM EDT 1.0 {tablet} activ e Sildenafil Citrate 100 MG eCW1 ([facility]) sildenafil 100 MG Oral Tablet Sildenafil Citrate 100 M G Sildenafil Citrate 100 MG 03/25/2020 12:00:00 AM EDT 1.0 {tablet} activ e Sildenafil Citrate 100 MG eCW1 ([facility] [facility] sildenafil 100 MG Oral Tablet Sildenafil Citrate 100 M G Sildenafil Citrate 100 MG 03/25/2020 12:00:00 AM EDT 1.0 {tablet} suspe nded Sildenafil Citrate 100 MG eCW1 ([facility]) sildenafil 100 MG Oral Tablet Sildenafil Citrate 100 M G Sildenafil Citrate 100 MG 03/25/2020 12:00:00 AM EDT 1.0 {tablet} activ e Sildenafil Citrate 100 MG eCW1 ([facility]) sildenafil 100 MG Oral Tablet Sildenafil Citrate 100 M G Sildenafil Citrate 100 MG 03/25/2020 12:00:00 AM EDT 1.0 {tablet} activ e Sildenafil Citrate 100 MG eCW1 ([facility]) sildenafil 100 MG Oral Tablet Sildenafil Citrate 100 M G Sildenafil Citrate 100 MG 03/25/2020 12:00:00 AM EDT 1.0 {tablet} activ e Sildenafil Citrate 100 MG eCW1 ([facility]) sildenafil 100 MG Oral Tablet Sildenafil Citrate 100 M G Sildenafil Citrate 100 MG 03/25/2020 12:00:00 AM EDT 1.0 {tablet} activ e Sildenafil Citrate 100 MG eCW1 ([facility]) 100 mg 03/25/2020 12:00:00 AM EDT tablet 30 TAKE ONE TABLET BY MOUTH EVERY DAY TAKE ONE TABLET BY MOUTH EVERY DAY SOLD: 03/30/2020 [facility] sildenafil 100 MG Oral Tablet Sildenafil Citrate 100 M G Sildenafil Citrate 100 MG 03/25/2020 12:00:00 AM EDT 1.0 {tablet} suspe nded Sildenafil Citrate 100 MG eCW1 ([facility]) sildenafil 100 MG Oral Tablet Sildenafil Citrate 100 M G Sildenafil Citrate 100 MG 03/25/2020 12:00:00 AM EDT 1.0 {tablet} activ e Sildenafil Citrate 100 MG eCW1 ([facility]) sildenafil 100 MG Oral Tablet Sildenafil Citrate 100 M G Sildenafil Citrate 100 MG 03/25/2020 12:00:00 AM EDT 1.0 {tablet} activ e Sildenafil Citrate 100 MG eCW1 ([facility]) sildenafil 100 MG Oral Tablet Sildenafil Citrate 100 M G Sildenafil Citrate 100 MG 03/25/2020 12:00:00 AM EDT 1.0 {tablet} suspe nded Sildenafil Citrate 100 MG eCW1 ([facility]) sildenafil 100 MG Oral Tablet Sildenafil Citrate 100 M G Sildenafil Citrate 100 MG 03/25/2020 12:00:00 AM EDT 1.0 {tablet} suspe nded Sildenafil Citrate 100 MG eCW1 ([facility]) sildenafil 100 MG Oral Tablet Sildenafil Citrate 100 M G Sildenafil Citrate 100 MG 03/25/2020 12:00:00 AM EDT 1.0 {tablet} activ e Sildenafil Citrate 100 MG eCW1 ([facility]) 300 mg 03/24/2020 12:00:00 AM EDT tablet [...] suspended Glucosamine Chondr 500 Complex - eCW1 ([facility]) Cyanocobalamin 1000 MCG UNK 02/02/2020 12:00:00 AM EDT 1.0 { tablet} suspended Cyanocobalamin 1000 MCG eCW1 ([facility]) Cephalexin 500 MG Oral Capsule Cephalexin 500 MG 02/02/2020 12:00:0 0 AM EDT 1.0 {capsule} suspended Cephalexin 500 M G eCW1 ([facility]) ammonium lactate 120 MG/ML Topical Cream Ammonium Lact ate 12 % Ammonium Lactate 12 % 02/02/2020 12:00:00 AM EDT 1.0 {application} active Ammonium Lactate 12 % eCW1 ([facility]) Cephalexin 500 MG Oral Capsule Cephalexin 500 MG 02/02/2020 12:00:0 0 AM EDT 1.0 {capsule} suspended Cephalexin 500 M G eCW1 ([facility]) Glucosamine Chondr 500 Complex - Glucosamine Chondr 500 Comp macey - 02/02/2020 12:00:00 AM EDT 1.0 {capsule} suspended Glucosamine Chondr 500 Complex - eCW1 ([facility]) Cephalexin 500 MG Oral Capsule Cephalexin 500 MG 02/02/2020 12:00:0 0 AM EDT 1.0 {capsule} suspended Cephalexin 500 M G eCW1 ([facility]) Cyanocobalamin 1000 MCG UNK 02/02/2020 12:00:00 AM EDT 1.0 { tablet} suspended Cyanocobalamin 1000 MCG eCW1 ([facility]) Cyanocobalamin 1000 MCG UNK 02/02/2020 12:00:00 AM EDT 1.0 { tablet} suspended Cyanocobalamin 1000 MCG eCW1 ([facility]) ammonium lactate 120 MG/ML Topical Cream Ammonium Lact ate 12 % Ammonium Lactate 12 % 02/02/2020 12:00:00 AM EDT 1.0 {application} active Ammonium Lactate 12 % eCW1 ([facility]) Cyanocobalamin 1000 MCG UNK 02/02/2020 12:00:00 AM EDT 1.0 { tablet} active Cyanocobalamin 1000 MCG eCW1 ([facility]) ammonium lactate 120 MG/ML Topical Cream Ammonium Lact ate 12 % Ammonium Lactate 12 % 02/02/2020 12:00:00 AM EDT 1.0 {application} suspended Ammonium Lactate 12 % eCW1 ([facility]) Glucosamine Chondr 500 Complex - Glucosamine Chondr 500 Comp macey - 02/02/2020 12:00:00 AM EDT 1.0 {capsule} suspended Glucosamine Chondr 500 Complex - eCW1 ([facility]) Glucosamine Chondr 500 Complex - Glucosamine Chondr 500 Comp macey - 02/02/2020 12:00:00 AM EDT 1.0 {capsule} suspended Glucosamine Chondr 500 Complex - eCW1 ([facility]) Glucosamine Chondr 500 Complex - Glucosamine Chondr 500 Comp macey - 02/02/2020 12:00:00 AM EDT active 1 capsul e eCW1 ([facility]) Cephalexin 500 MG Oral Capsule Cephalexin 500 MG 02/02/2020 12:00:0 0 AM EDT 1.0 {capsule} suspended Cephalexin 500 M G eCW1 ([facility]) Cephalexin 500 MG Oral Capsule Cephalexin 500 MG 02/02/2020 12:00:0 0 AM EDT 1.0 {capsule} suspended Cephalexin 500 M G eCW1 ([facility]) Glucosamine Chondr 500 Complex - Glucosamine Chondr 500 Comp macey - 02/02/2020 12:00:00 AM EDT 1.0 {capsule} suspended Glucosamine Chondr 500 Complex - eCW1 ([facility]) 500 mg 02/02/2020 12:00:00 AM EDT capsule 20 TAKE ONE CAPSULE BY MOUTH TWICE A DAY TAKE ONE CAPSULE BY MOUTH TWICE A DAY SOLD: 02/03/2020 [facility] Cyanocobalamin 1000 MCG UNK 02/02/2020 12:00:00 AM EDT 1.0 { tablet} suspended Cyanocobalamin 1000 MCG eCW1 ([facility]) Glucosamine Chondr 500 Complex - Glucosamine Chondr 500 Comp macey - 02/02/2020 12:00:00 AM EDT 1.0 {capsule} suspended Glucosamine Chondr 500 Complex - eCW1 ([facility]) ammonium lactate 120 MG/ML Topical Cream Ammonium Lact ate 12 % Ammonium Lactate 12 % 02/02/2020 12:00:00 AM EDT 1.0 {application} suspended Ammonium Lactate 12 % eCW1 ([facility]) Cephalexin 500 MG Oral Capsule Cephalexin 500 MG 02/02/2020 12:00:0 0 AM EDT 1.0 {capsule} active Cephalexin 500 MG eCW1 ([facility]) ammonium lactate 120 MG/ML Topical Cream Ammonium Lact ate 12 % Ammonium Lactate 12 % 02/02/2020 12:00:00 AM EDT 1.0 {application} active Ammonium Lactate 12 % eCW1 ([facility]) Cyanocobalamin 1000 MCG UNK 02/02/2020 12:00:00 AM EDT 1.0 { tablet} active Cyanocobalamin 1000 MCG eCW1 ([facility]) Glucosamine Chondr 500 Complex - Glucosamine Chondr 500 Comp macey - 02/02/2020 12:00:00 AM EDT 1.0 {capsule} suspended Glucosamine Chondr 500 Complex - eCW1 ([facility]) Glucosamine Chondr 500 Complex - Glucosamine Chondr 500 Comp macey - 02/02/2020 12:00:00 AM EDT 1.0 {capsule} active Glucosamine Chondr 500 Complex - eCW1 ([facility]) Cephalexin 500 MG Oral Capsule Cephalexin 500 MG 02/02/2020 12:00:0 0 AM EDT 1.0 {capsule} suspended Cephalexin 500 M G eCW1 ([facility]) Cyanocobalamin 1000 MCG UNK 02/02/2020 12:00:00 AM EDT 1.0 { tablet} suspended Cyanocobalamin 1000 MCG eCW1 ([facility]) Cyanocobalamin 1000 MCG UNK 02/02/2020 12:00:00 AM EDT 1.0 { tablet} suspended Cyanocobalamin 1000 MCG eCW1 ([facility]) Cephalexin 500 MG Oral Capsule Cephalexin 500 MG 02/02/2020 12:00:0 0 AM EDT 1.0 {capsule} suspended Cephalexin 500 M G eCW1 ([facility]) Glucosamine Chondr 500 Complex - Glucosamine Chondr 500 Comp macey - 02/02/2020 12:00:00 AM EDT 1.0 {capsule} suspended Glucosamine Chondr 500 Complex - eCW1 ([facility]) ammonium lactate 120 MG/ML Topical Cream Ammonium Lact ate 12 % Ammonium Lactate 12 % 02/02/2020 12:00:00 AM EDT 1.0 {application} active Ammonium Lactate 12 % eCW1 ([facility]) Cephalexin 500 MG Oral Capsule Cephalexin 500 MG 02/02/2020 12:00:0 0 AM EDT 1.0 {capsule} suspended Cephalexin 500 M G eCW1 ([facility]) ammonium lactate 120 MG/ML Topical Cream Ammonium Lact ate 12 % Ammonium Lactate 12 % 02/02/2020 12:00:00 AM EDT 1.0 {application} active Ammonium Lactate 12 % eCW1 ([facility]) Cephalexin 500 MG Oral Capsule Cephalexin 500 MG 02/02/2020 12:00:0 0 AM EDT 1.0 {capsule} suspended Cephalexin 500 M G eCW1 ([facility]) ammonium lactate 120 MG/ML Topical Cream Ammonium Lact ate 12 % Ammonium Lactate 12 % 02/02/2020 12:00:00 AM EDT 1.0 {application} suspended Ammonium Lactate 12 % eCW1 ([facility]) ammonium lactate 120 MG/ML Topical Cream Ammonium Lact ate 12 % Ammonium Lactate 12 % 02/02/2020 12:00:00 AM EDT active 1 application eCW1 ([facility]) Cyanocobalamin 1000 MCG UNK 02/02/2020 12:00:00 AM EDT 1.0 { tablet} suspended Cyanocobalamin 1000 MCG eCW1 ([facility]) Cyanocobalamin 1000 MCG UNK 02/02/2020 12:00:00 AM EDT 1.0 { tablet} suspended Cyanocobalamin 1000 MCG eCW1 ([facility]) ammonium lactate 120 MG/ML Topical Cream Ammonium Lact ate 12 % Ammonium Lactate 12 % 02/02/2020 12:00:00 AM EDT 1.0 {application} active Ammonium Lactate 12 % eCW1 ([facility]) Glucosamine Chondr 500 Complex - Glucosamine Chondr 500 Comp macey - 02/02/2020 12:00:00 AM EDT 1.0 {capsule} suspended Glucosamine Chondr 500 Complex - eCW1 ([facility]) Cyanocobalamin 1000 MCG UNK 02/02/2020 12:00:00 AM EDT 1.0 { tablet} suspended Cyanocobalamin 1000 MCG eCW1 ([facility]) ammonium lactate 120 MG/ML Topical Cream Ammonium Lact ate 12 % Ammonium Lactate 12 % 02/02/2020 12:00:00 AM EDT 1.0 {application} active Ammonium Lactate 12 % eCW1 ([facility]) ammonium lactate 120 MG/ML Topical Cream Ammonium Lact ate 12 % Ammonium Lactate 12 % 02/02/2020 12:00:00 AM EDT 1.0 {application} suspended Ammonium Lactate 12 % eCW1 ([facility]) Cephalexin 500 MG Oral Capsule Cephalexin 500 MG 02/02/2020 12:00:0 0 AM EDT 1.0 {capsule} suspended Cephalexin 500 M G eCW1 ([facility]) Glucosamine Chondr 500 Complex - Glucosamine Chondr 500 Comp macey - 02/02/2020 12:00:00 AM EDT 1.0 {capsule} suspended Glucosamine Chondr 500 Complex - eCW1 ([facility]) Glucosamine Chondr 500 Complex - Glucosamine Chondr 500 Comp macey - 02/02/2020 12:00:00 AM EDT active 1 capsul e eCW1 ([facility]) Cephalexin 500 MG Oral Capsule Cephalexin 500 MG 02/02/2020 12:00:00 AM EDT active 1 capsule eCW1 ([facility]) ammonium lactate 120 MG/ML Topical Cream Ammonium Lact ate 12 % Ammonium Lactate 12 % 02/02/2020 12:00:00 AM EDT 1.0 {application} active Ammonium Lactate 12 % eCW1 ([facility]) ammonium lactate 120 MG/ML Topical Cream Ammonium Lact ate 12 % Ammonium Lactate 12 % 02/02/2020 12:00:00 AM EDT 1.0 {application} active Ammonium Lactate 12 % eCW1 ([facility]) Cephalexin 500 MG Oral Capsule Cephalexin 500 MG 02/02/2020 12:00:0 0 AM EDT 1.0 {capsule} suspended Cephalexin 500 M G eCW1 ([facility]) Cephalexin 500 MG Oral Capsule Cephalexin 500 MG 02/02/2020 12:00:00 AM EDT active 1 capsule eCW1 ([facility]) Cyanocobalamin 1000 MCG UNK 02/02/2020 12:00:00 AM EDT active 1 tablet eCW1 ([facility]) Cephalexin 500 MG Oral Capsule Cephalexin 500 MG 02/02/2020 12:00:0 0 AM EDT 1.0 {capsule} suspended Cephalexin 500 M G eCW1 ([facility]) Cyanocobalamin 1000 MCG UNK 02/02/2020 12:00:00 AM EDT 1.0 { tablet} suspended Cyanocobalamin 1000 MCG eCW1 ([facility]) Glucosamine Chondr 500 Complex - Glucosamine Chondr 500 Comp macey - 02/02/2020 12:00:00 AM EDT 1.0 {capsule} suspended Glucosamine Chondr 500 Complex - eCW1 ([facility]) Glucosamine Chondr 500 Complex - Glucosamine Chondr 500 Comp macey - 02/02/2020 12:00:00 AM EDT 1.0 {capsule} suspended Glucosamine Chondr 500 Complex - eCW1 ([facility]) Cephalexin 500 MG Oral Capsule Cephalexin 500 MG 02/02/2020 12:00:0 0 AM EDT 1.0 {capsule} suspended Cephalexin 500 M G eCW1 ([facility]) ammonium lactate 120 MG/ML Topical Cream Ammonium Lact ate 12 % Ammonium Lactate 12 % 02/02/2020 12:00:00 AM EDT 1.0 {application} active Ammonium Lactate 12 % eCW1 ([facility]) Cephalexin 500 MG Oral Capsule Cephalexin 500 MG 02/02/2020 12:00:0 0 AM EDT 1.0 {capsule} suspended Cephalexin 500 M G eCW1 ([facility]) Glucosamine Chondr 500 Complex - Glucosamine Chondr 500 Comp macey - 02/02/2020 12:00:00 AM EDT 1.0 {capsule} suspended Glucosamine Chondr 500 Complex - eCW1 ([facility]) Glucosamine Chondr 500 Complex - Glucosamine Chondr 500 Comp macey - 02/02/2020 12:00:00 AM EDT 1.0 {capsule} suspended Glucosamine Chondr 500 Complex - eCW1 ([facility]) Glucosamine Chondr 500 Complex - Glucosamine Chondr 500 Comp macey - 02/02/2020 12:00:00 AM EDT 1.0 {capsule} suspended Glucosamine Chondr 500 Complex - eCW1 ([facility]) Glucosamine Chondr 500 Complex - Glucosamine Chondr 500 Comp macey - 02/02/2020 12:00:00 AM EDT 1.0 {capsule} suspended Glucosamine Chondr 500 Complex - eCW1 ([facility]) Glucosamine Chondr 500 Complex - Glucosamine Chondr 500 Comp macey - 02/02/2020 12:00:00 AM EDT 1.0 {capsule} suspended Glucosamine Chondr 500 Complex - eCW1 ([facility]) ammonium lactate 120 MG/ML Topical Cream Ammonium Lact ate 12 % Ammonium Lactate 12 % 02/02/2020 12:00:00 AM EDT 1.0 {application} active Ammonium Lactate 12 % eCW1 ([facility]) Cephalexin 500 MG Oral Capsule Cephalexin 500 MG 02/02/2020 12:00:0 0 AM EDT 1.0 {capsule} suspended Cephalexin 500 M G eCW1 ([facility]) ammonium lactate 120 MG/ML Topical Cream Ammonium Lact ate 12 % Ammonium Lactate 12 % 02/02/2020 12:00:00 AM EDT active 1 application eCW1 ([facility]) ammonium lactate 120 MG/ML Topical Cream Ammonium Lact ate 12 % Ammonium Lactate 12 % 02/02/2020 12:00:00 AM EDT 1.0 {application} active Ammonium Lactate 12 % eCW1 ([facility]) Cyanocobalamin 1000 MCG UNK 02/02/2020 12:00:00 AM EDT 1.0 { tablet} suspended Cyanocobalamin 1000 MCG eCW1 ([facility]) Cyanocobalamin 1000 MCG UNK 02/02/2020 12:00:00 AM EDT 1.0 { tablet} suspended Cyanocobalamin 1000 MCG eCW1 ([facility]) ammonium lactate 120 MG/ML Topical Cream Ammonium Lact ate 12 % Ammonium Lactate 12 % 02/02/2020 12:00:00 AM EDT 1.0 {application} active Ammonium Lactate 12 % eCW1 ([facility]) Cephalexin 500 MG Oral Capsule Cephalexin 500 MG 02/02/2020 12:00:0 0 AM EDT 1.0 {capsule} suspended Cephalexin 500 M G eCW1 ([facility]) ammonium lactate 120 MG/ML Topical Cream Ammonium Lact ate 12 % Ammonium Lactate 12 % 02/02/2020 12:00:00 AM EDT 1.0 {application} active Ammonium Lactate 12 % eCW1 ([facility]) Cephalexin 500 MG Oral Capsule Cephalexin 500 MG 02/02/2020 12:00:0 0 AM EDT 1.0 {capsule} active Cephalexin 500 MG eCW1 ([facility]) Cyanocobalamin 1000 MCG UNK 02/02/2020 12:00:00 AM EDT 1.0 { tablet} suspended Cyanocobalamin 1000 MCG eCW1 ([facility]) ammonium lactate 120 MG/ML Topical Cream Ammonium Lact ate 12 % Ammonium Lactate 12 % 02/02/2020 12:00:00 AM EDT 1.0 {application} suspended Ammonium Lactate 12 % eCW1 ([facility]) Cyanocobalamin 1000 MCG UNK 02/02/2020 12:00:00 AM EDT 1.0 { tablet} suspended Cyanocobalamin 1000 MCG eCW1 ([facility]) Glucosamine Chondr 500 Complex - Glucosamine Chondr 500 Comp macey - 02/02/2020 12:00:00 AM EDT 1.0 {capsule} active Glucosamine Chondr 500 Complex - eCW1 ([facility]) Cyanocobalamin 1000 MCG UNK 02/02/2020 12:00:00 AM EDT 1.0 { tablet} suspended Cyanocobalamin 1000 MCG eCW1 ([facility]) Cephalexin 500 MG Oral Capsule Cephalexin 500 MG 02/02/2020 12:00:0 0 AM EDT 1.0 {capsule} suspended Cephalexin 500 M G eCW1 ([facility]) Cephalexin 500 MG Oral Capsule Cephalexin 500 MG 02/02/2020 12:00:0 0 AM EDT 1.0 {capsule} suspended Cephalexin 500 M G eCW1 ([facility]) ammonium lactate 120 MG/ML Topical Cream Ammonium Lact ate 12 % Ammonium Lactate 12 % 02/02/2020 12:00:00 AM EDT 1.0 {application} active Ammonium Lactate 12 % eCW1 ([facility]) Glucosamine Chondr 500 Complex - Glucosamine Chondr 500 Comp macey - 02/02/2020 12:00:00 AM EDT 1.0 {capsule} suspended Glucosamine Chondr 500 Complex - eCW1 ([facility]) Cyanocobalamin 1000 MCG UNK 02/02/2020 12:00:00 AM EDT 1.0 { tablet} suspended Cyanocobalamin 1000 MCG eCW1 ([facility]) Cephalexin 500 MG Oral Capsule Cephalexin 500 MG 02/02/2020 12:00:0 0 AM EDT 1.0 {capsule} suspended Cephalexin 500 M G eCW1 ([facility]) Cephalexin 500 MG Oral Capsule Cephalexin 500 MG 02/02/2020 12:00:0 0 AM EDT 1.0 {capsule} suspended Cephalexin 500 M G eCW1 ([facility]) Glucosamine Chondr 500 Complex - Glucosamine Chondr 500 Comp macey - 02/02/2020 12:00:00 AM EDT 1.0 {capsule} suspended Glucosamine Chondr 500 Complex - eCW1 ([facility]) Glucosamine Chondr 500 Complex - Glucosamine Chondr 500 Comp macey - 02/02/2020 12:00:00 AM EDT 1.0 {capsule} suspended Glucosamine Chondr 500 Complex - eCW1 ([facility]) Cyanocobalamin 1000 MCG UNK 02/02/2020 12:00:00 AM EDT 1.0 { tablet} suspended Cyanocobalamin 1000 MCG eCW1 ([facility]) Glucosamine Chondr 500 Complex - Glucosamine Chondr 500 Comp macey - 02/02/2020 12:00:00 AM EDT 1.0 {capsule} suspended Glucosamine Chondr 500 Complex - eCW1 ([facility]) ammonium lactate 120 MG/ML Topical Cream Ammonium Lact ate 12 % Ammonium Lactate 12 % 02/02/2020 12:00:00 AM EDT 1.0 {application} active Ammonium Lactate 12 % eCW1 ([facility]) Cephalexin 500 MG Oral Capsule Cephalexin 500 MG 02/02/2020 12:00:0 0 AM EDT 1.0 {capsule} suspended Cephalexin 500 M G eCW1 ([facility]) Cyanocobalamin 1000 MCG UNK 02/02/2020 12:00:00 AM EDT 1.0 { tablet} suspended Cyanocobalamin 1000 MCG eCW1 ([facility]) Cyanocobalamin 1000 MCG UNK 02/02/2020 12:00:00 AM EDT 1.0 { tablet} suspended Cyanocobalamin 1000 MCG eCW1 ([facility]) Cyanocobalamin 1000 MCG UNK 02/02/2020 12:00:00 AM EDT active 1 tablet eCW1 ([facility]) Glucosamine Chondr 500 Complex - Glucosamine Chondr 500 Comp macey - 02/02/2020 12:00:00 AM EDT 1.0 {capsule} suspended Glucosamine Chondr 500 Complex - eCW1 ([facility]) Cephalexin 500 MG Oral Capsule Cephalexin 500 MG 02/02/2020 12:00:0 0 AM EDT 1.0 {capsule} suspended Cephalexin 500 M G eCW1 ([facility]) Cyanocobalamin 1000 MCG UNK 02/02/2020 12:00:00 AM EDT 1.0 { tablet} suspended Cyanocobalamin 1000 MCG eCW1 ([facility]) Cyanocobalamin 1000 MCG UNK 02/02/2020 12:00:00 AM EDT 1.0 { tablet} suspended Cyanocobalamin 1000 MCG eCW1 ([facility]) ammonium lactate 120 MG/ML Topical Cream Ammonium Lact ate 12 % Ammonium Lactate 12 % 02/02/2020 12:00:00 AM EDT 1.0 {application} suspended Ammonium Lactate 12 % eCW1 ([facility]) Glucosamine Chondr 500 Complex - Glucosamine Chondr 500 Comp macey - 02/02/2020 12:00:00 AM EDT 1.0 {capsule} suspended Glucosamine Chondr 500 Complex - eCW1 ([facility]) ammonium lactate 120 MG/ML Topical Cream Ammonium Lact ate 12 % Ammonium Lactate 12 % 02/02/2020 12:00:00 AM EDT 1.0 {application} active Ammonium Lactate 12 % eCW1 ([facility]) Cyanocobalamin 1000 MCG UNK 02/02/2020 12:00:00 AM EDT 1.0 { tablet} suspended Cyanocobalamin 1000 MCG eCW1 ([facility]) Cephalexin 500 MG Oral Capsule Cephalexin 500 MG 02/02/2020 12:00:0 0 AM EDT 1.0 {capsule} suspended Cephalexin 500 M G eCW1 ([facility]) Cyanocobalamin 1000 MCG UNK 02/02/2020 12:00:00 AM EDT 1.0 { tablet} suspended Cyanocobalamin 1000 MCG eCW1 ([facility]) ammonium lactate 120 MG/ML Topical Cream Ammonium Lact ate 12 % Ammonium Lactate 12 % 02/02/2020 12:00:00 AM EDT 1.0 {application} active Ammonium Lactate 12 % eCW1 ([facility]) ammonium lactate 120 MG/ML Topical Cream Ammonium Lact ate 12 % Ammonium Lactate 12 % 02/02/2020 12:00:00 AM EDT 1.0 {application} active Ammonium Lactate 12 % eCW1 ([facility]) 600 mg 01/15/2020 12:00:00 AM EDT tablet [...] EST active [facility] ([facility] [place]) 0.77 % 11/12/2019 12:00:00 AM EST cream 90 APPLY TOPICALLY THREE TIMES A DAY APPLY TOPICALLY THREE TIMES A DAY SOLD: 03/10/2020 [facility] ciclopirox 7.7 MG/ML Topical Cream [Loprox] Loprox 0.77 % Lo prox 0.77 % 11/12/2019 12:00:00 AM EST 1.0 {application} higinio pended Loprox 0.77 % eCW1 ([facility]) ciclopirox 7.7 MG/ML Topical Cream [Loprox] Loprox 0.77 % Lo prox 0.77 % 11/12/2019 12:00:00 AM EST 1.0 {application} higinio pended Loprox 0.77 % eCW1 ([facility]) ciclopirox 7.7 MG/ML Topical Cream [Loprox] Loprox 0.77 % Lo prox 0.77 % 11/12/2019 12:00:00 AM EST 1.0 {application} higinio pended Loprox 0.77 % eCW1 ([facility]) ciclopirox 7.7 MG/ML Topical Cream [Loprox] Loprox 0.77 % Lo prox 0.77 % 11/12/2019 12:00:00 AM EST 1.0 {application} higinio pended Loprox 0.77 % eCW1 ([facility]) 0.77 % 11/12/2019 12:00:00 AM EST cream 90 APPLY TOPICALLY THREE TIMES A DAY APPLY TOPICALLY THREE TIMES A DAY SOLD: 11/13/2019 [facility] ciclopirox 7.7 MG/ML Topical Cream [Loprox] Loprox 0.77 % Lo prox 0.77 % 11/12/2019 12:00:00 AM EST 1.0 {application} higinio pended Loprox 0.77 % eCW1 ([facility]) ciclopirox 7.7 MG/ML Topical Cream [Loprox] Loprox 0.77 % Lo prox 0.77 % 11/12/2019 12:00:00 AM EST 1.0 {application} higinio pended Loprox 0.77 % eCW1 ([facility]) ciclopirox 7.7 MG/ML Topical Cream [Loprox] Loprox 0.77 % Lo prox 0.77 % 11/12/2019 12:00:00 AM EST 1.0 {application} active Loprox 0.77 % eCW1 ([facility]) ciclopirox 7.7 MG/ML Topical Cream [Loprox] Loprox 0.77 % Lo prox 0.77 % 11/12/2019 12:00:00 AM EST 1.0 {application} higinio pended Loprox 0.77 % eCW1 ([facility]) ciclopirox 7.7 MG/ML Topical Cream [Loprox] Loprox 0.77 % Lo prox 0.77 % 11/12/2019 12:00:00 AM EST 1.0 {application} higinio pended Loprox 0.77 % eCW1 ([facility]) ciclopirox 7.7 MG/ML Topical Cream [Loprox] Loprox 0.77 % Lo prox 0.77 % 11/12/2019 12:00:00 AM EST 1.0 {application} higinio pended Loprox 0.77 % eCW1 ([facility]) ciclopirox 7.7 MG/ML Topical Cream [Loprox] Loprox 0.77 % Lo prox 0.77 % 11/12/2019 12:00:00 AM EST 1.0 {application} higinio pended Loprox 0.77 % eCW1 ([facility]) ciclopirox 7.7 MG/ML Topical Cream [Loprox] Loprox 0.77 % Lo prox 0.77 % 11/12/2019 12:00:00 AM EST 1.0 {application} higinio pended Loprox 0.77 % eCW1 ([facility]) ciclopirox 7.7 MG/ML Topical Cream [Loprox] Loprox 0.77 % Lo prox 0.77 % 11/12/2019 12:00:00 AM EST 1.0 {application} higinio pended Loprox 0.77 % eCW1 ([facility]) ciclopirox 7.7 MG/ML Topical Cream [Loprox] Loprox 0.77 % Lo prox 0.77 % 11/12/2019 12:00:00 AM EST 1.0 {application} higinio pended Loprox 0.77 % eCW1 ([facility]) 0.77 % 11/12/2019 12:00:00 AM EST cream 90 APPLY TOPICALLY THREE TIMES A DAY APPLY TOPICALLY THREE TIMES A DAY SOLD: 01/04/2020 [facility] ciclopirox 7.7 MG/ML Topical Cream [Loprox] Loprox 0.77 % Lo prox 0.77 % 11/12/2019 12:00:00 AM EST 1.0 {application} higinio pended Loprox 0.77 % eCW1 ([facility]) ciclopirox 7.7 MG/ML Topical Cream [Loprox] Loprox 0.77 % Lo prox 0.77 % 11/12/2019 12:00:00 AM EST 1.0 {application} higinio pended Loprox 0.77 % eCW1 ([facility]) ciclopirox 7.7 MG/ML Topical Cream [Loprox] Loprox 0.77 % Lo prox 0.77 % 11/12/2019 12:00:00 AM EST 1.0 {application} higinio pended Loprox 0.77 % eCW1 ([facility]) ciclopirox 7.7 MG/ML Topical Cream [Loprox] Loprox 0.77 % Lo prox 0.77 % 11/12/2019 12:00:00 AM EST 1.0 {application} higinio pended Loprox 0.77 % eCW1 ([facility]) ciclopirox 7.7 MG/ML Topical Cream [Loprox] Loprox 0.77 % Lo prox 0.77 % 11/12/2019 12:00:00 AM EST 1.0 {application} higinio pended Loprox 0.77 % eCW1 ([facility]) ciclopirox 7.7 MG/ML Topical Cream [Loprox] Loprox 0.77 % Lo prox 0.77 % 11/12/2019 12:00:00 AM EST 1.0 {application} higinio pended Loprox 0.77 % eCW1 ([facility]) ciclopirox 7.7 MG/ML Topical Cream [Loprox] Loprox 0.77 % Lo prox 0.77 % 11/12/2019 12:00:00 AM EST 1.0 {application} higinio pended Loprox 0.77 % eCW1 ([facility]) ciclopirox 7.7 MG/ML Topical Cream [Loprox] Loprox 0.77 % Lo prox 0.77 % 11/12/2019 12:00:00 AM EST 1.0 {application} active Loprox 0.77 % eCW1 ([facility]) ciclopirox 7.7 MG/ML Topical Cream [Loprox] Loprox 0.77 % Lo prox 0.77 % 11/12/2019 12:00:00 AM EST active 1 application eCW1 ([facility]) ciclopirox 7.7 MG/ML Topical Cream [Loprox] Loprox 0.77 % Lo prox 0.77 % 11/12/2019 12:00:00 AM EST active 1 application eCW1 ([facility]) ciclopirox 7.7 MG/ML Topical Cream [Loprox] Loprox 0.77 % Lo prox 0.77 % 11/12/2019 12:00:00 AM EST 1.0 {application} higinio pended Loprox 0.77 % eCW1 ([facility]) ciclopirox 7.7 MG/ML Topical Cream [Loprox] Loprox 0.77 % Lo prox 0.77 % 11/12/2019 12:00:00 AM EST 1.0 {application} higinio pended Loprox 0.77 % eCW1 ([facility]) ciclopirox 7.7 MG/ML Topical Cream [Loprox] Loprox 0.77 % Lo prox 0.77 % 11/12/2019 12:00:00 AM EST 1.0 {application} higinio pended Loprox 0.77 % eCW1 ([facility]) 325 mg (65 mg iron) 11/06/2019 12:00:00 [...] Sulfate 325 (65 Fe) MG e CW1 ([facility]) ferrous sulfate 325 MG Oral Tablet Ferrous Sulfate 325 (65 Fe) MG Ferrous Sulfate 325 (65 Fe) MG 11/06/2019 12:00:00 AM EST 1.0 {tablet} suspended Ferrous Sulfate 325 (65 Fe) MG e CW1 ([facility]) ferrous sulfate 325 MG Oral Tablet Ferrous Sulfate 325 (65 Fe) MG Ferrous Sulfate 325 (65 Fe) MG 11/06/2019 12:00:00 AM EST 1.0 {tablet} suspended Ferrous Sulfate 325 (65 Fe) MG e 1 ([facility]) ferrous sulfate 325 MG Oral Tablet Ferrous Sulfate 325 (65 Fe) MG Ferrous Sulfate 325 (65 Fe) MG 11/06/2019 12:00:00 AM EST 1.0 {tablet} suspended Ferrous Sulfate 325 (65 Fe) MG e CW1 ([facility]) ferrous sulfate 325 MG Oral Tablet Ferrous Sulfate 325 (65 Fe) MG Ferrous Sulfate 325 (65 Fe) MG 11/06/2019 12:00:00 AM EST 1.0 {tablet} suspended Ferrous Sulfate 325 (65 Fe) MG e CW1 ([facility]) ferrous sulfate 325 MG Oral Tablet Ferrous Sulfate 325 (65 Fe) MG Ferrous Sulfate 325 (65 Fe) MG 11/06/2019 12:00:00 AM EST 1.0 {tablet} suspended Ferrous Sulfate 325 (65 Fe) MG e CW1 ([facility]) ferrous sulfate 325 MG Oral Tablet Ferrous Sulfate 325 (65 Fe) MG Ferrous Sulfate 325 (65 Fe) MG 11/06/2019 12:00:00 AM EST 1.0 {tablet} active Ferrous Sulfate 325 (65 Fe) MG eCW1 ([facility]) ferrous sulfate 325 MG Oral Tablet Ferrous Sulfate 325 (65 Fe) MG Ferrous Sulfate 325 (65 Fe) MG 11/06/2019 12:00:00 AM EST 1.0 {tablet} active Ferrous Sulfate 325 (65 Fe) MG eCW1 ([facility]) ferrous sulfate 325 MG Oral Tablet Ferrous Sulfate 325 (65 Fe) MG Ferrous Sulfate 325 (65 Fe) MG 11/06/2019 12:00:00 AM EST 1.0 {tablet} suspended Ferrous Sulfate 325 (65 Fe) MG e 1 ([facility]) ferrous sulfate 325 MG Oral Tablet Ferrous Sulfate 325 (65 Fe) MG Ferrous Sulfate 325 (65 Fe) MG 11/06/2019 12:00:00 AM EST 1.0 {tablet} suspended Ferrous Sulfate 325 (65 Fe) MG e 1 ([facility]) ferrous sulfate 325 MG Oral Tablet Ferrous Sulfate 325 (65 Fe) MG Ferrous Sulfate 325 (65 Fe) MG 11/06/2019 12:00:00 AM EST 1.0 {tablet} suspended Ferrous Sulfate 325 (65 Fe) MG e 1 ([facility]) ferrous sulfate 325 MG Oral Tablet Ferrous Sulfate 325 (65 Fe) MG Ferrous Sulfate 325 (65 Fe) MG 11/06/2019 12:00:00 AM EST 1.0 {tablet} suspended Ferrous Sulfate 325 (65 Fe) MG e 1 ([facility]) ferrous sulfate 325 MG Oral Tablet Ferrous Sulfate 325 (65 Fe) MG Ferrous Sulfate 325 (65 Fe) MG 11/06/2019 12:00:00 AM EST 1.0 {tablet} suspended Ferrous Sulfate 325 (65 Fe) MG e 1 ([facility]) ferrous sulfate 325 MG Oral Tablet Ferrous Sulfate 325 (65 Fe) MG Ferrous Sulfate 325 (65 Fe) MG 11/06/2019 12:00:00 AM EST 1.0 {tablet} suspended Ferrous Sulfate 325 (65 Fe) MG e 1 ([facility]) ferrous sulfate 325 MG Oral Tablet Ferrous Sulfate 325 (65 Fe) MG Ferrous Sulfate 325 (65 Fe) MG 11/06/2019 12:00:00 AM EST 1.0 {tablet} suspended Ferrous Sulfate 325 (65 Fe) MG e 1 ([facility]) ferrous sulfate 325 MG Oral Tablet Ferrous Sulfate 325 (65 Fe) MG Ferrous Sulfate 325 (65 Fe) MG 11/06/2019 12:00:00 AM EST 1.0 {tablet} suspended Ferrous Sulfate 325 (65 Fe) MG e 1 ([facility]) ferrous sulfate 325 MG Oral Tablet Ferrous Sulfate 325 (65 Fe) MG Ferrous Sulfate 325 (65 Fe) MG 11/06/2019 12:00:00 AM EST 1.0 {tablet} suspended Ferrous Sulfate 325 (65 Fe) MG e CW1 ([facility]) ferrous sulfate 325 MG Oral Tablet Ferrous Sulfate 325 (65 Fe) MG Ferrous Sulfate 325 (65 Fe) MG 11/06/2019 12:00:00 AM EST active 1 tablet eCW1 ([facility]) ferrous sulfate 325 MG Oral Tablet Ferrous Sulfate 325 (65 Fe) MG Ferrous Sulfate 325 (65 Fe) MG 11/06/2019 12:00:00 AM EST 1.0 {tablet} suspended Ferrous Sulfate 325 (65 Fe) MG e CW1 ([facility]) ferrous sulfate 325 MG Oral Tablet Ferrous Sulfate 325 (65 Fe) MG Ferrous Sulfate 325 (65 Fe) MG 11/06/2019 12:00:00 AM EST 1.0 {tablet} suspended Ferrous Sulfate 325 (65 Fe) MG e 1 ([facility]) ferrous sulfate 325 MG Oral Tablet Ferrous Sulfate 325 (65 Fe) MG Ferrous Sulfate 325 (65 Fe) MG 11/06/2019 12:00:00 AM EST 1.0 {tablet} suspended Ferrous Sulfate 325 (65 Fe) MG e 1 ([facility]) ferrous sulfate 325 MG Oral Tablet Ferrous Sulfate 325 (65 Fe) MG Ferrous Sulfate 325 (65 Fe) MG 11/06/2019 12:00:00 AM EST 1.0 {tablet} suspended Ferrous Sulfate 325 (65 Fe) MG e 1 ([facility]) ferrous sulfate 325 MG Oral Tablet Ferrous Sulfate 325 (65 Fe) MG Ferrous Sulfate 325 (65 Fe) MG 11/06/2019 12:00:00 AM EST 1.0 {tablet} suspended Ferrous Sulfate 325 (65 Fe) MG e CW1 ([facility]) ferrous sulfate 325 MG Oral Tablet Ferrous Sulfate 325 (65 Fe) MG Ferrous Sulfate 325 (65 Fe) MG 11/06/2019 12:00:00 AM EST active 1 tablet eCW1 ([facility]) ferrous sulfate 325 MG Oral Tablet Ferrous Sulfate 325 (65 Fe) MG Ferrous Sulfate 325 (65 Fe) MG 11/06/2019 12:00:00 AM EST 1.0 {tablet} suspended Ferrous Sulfate 325 (65 Fe) MG e CW1 ([facility]) ferrous sulfate 325 MG Oral Tablet Ferrous Sulfate 325 (65 Fe) MG Ferrous Sulfate 325 (65 Fe) MG 11/06/2019 12:00:00 AM EST 1.0 {tablet} suspended Ferrous Sulfate 325 (65 Fe) MG e CW1 ([facility]) ferrous sulfate 325 MG Oral Tablet Ferrous Sulfate 325 (65 Fe) MG Ferrous Sulfate 325 (65 Fe) MG 11/06/2019 12:00:00 AM EST 1.0 {tablet} suspended Ferrous Sulfate 325 (65 Fe) MG e 1 ([facility]) ferrous sulfate 325 MG Oral Tablet Ferrous Sulfate 325 (65 Fe) MG Ferrous Sulfate 325 (65 Fe) MG 11/06/2019 12:00:00 AM EST active 1 tablet eCW1 ([facility]) 20 mg 10/27/2019 12:00:00 AM EST capsule [...] Hour 10/07/2019 12:00:00 AM EST active MEDENT ([facility]) No Active Medications 10/07/2019 12:00:00 AM EST completed MEDENT ([facility]) 100 unit/mL 10/01/2019 [...] type / Coverage type Policy ID Covered alliance party ID Covered alliance party's relationship to veloz Policy Veloz Plan Information MEDICARE [id number] SP [id number] UMR [facility] [id number] SP [id number] [facility]MR [facility] [id number] SP [id number] [facility]MR [facility] [id number] SP [id number] [facility] OPTIONS [id number] SP [id number] UMR O [id number] S [id number] MEDICARE C [id number] S [id number] MEDICARE PART A -O/P [id number] 18 [id number] UMR -O/P [id number] 18 [id number] Umr (pr) Medigap Part B [id number] Self [id number] 7646 [place] [id number] Self [id number] [place] (pr) Medigap Part B [id number] Self [id number] Medicare Dme Medigap Part B [id number] Self [id number] Medicare Medicare Primary [id number] Self [id number] Umr Commercial [id number] Self [id number] Umr (pr) Medigap Part B [id number] Self [id number] 7646 [place] Primary [id number] Self [id number] ANSI-Commercial [id number] ANSI-Medicare Part B [id number] Medicare Dme Medigap Part B [id number] Self [id number] Medicare Medicare Primary [id number] Self [id number] U[facility] (pr) Medigap Part B [id number] Self [id number] 7646 [place] [id number] Self [id number] ANSI-Commercial [id number] ANSI-Medicare Part B [id number] [place] [id number] Self [id number] Umr (pr) Medigap Part B [id number] Self Y1946 7646 [place] (pr) Medigap Part B [id number] Self [id number] Medicare Dme Medigap Part B [id number] Self [id number] Medicare Medicare Primary [id number] Self [id number] Umr (pr) Medigap Part B [id number] Self Y1946 7646 [place] Primary [id number] Self [id number] [place] [id number] Self [id number] Medicare Medigap Part B [id number] Self [id number] Medicare Dme Medicare Primary [id number] Self [id number] Medicare Dme Medigap Part B [id number] Self [id number] Medicare Medicare Primary [id number] Self [id number] [place] Medigap Part B [id number] Self [id number] ANSI-Medicare Part B [id number] ANSI-Commercial [id number] Medicare Dme Medigap Part B [id number] Self [id number] Medicare Medicare Primary [id number] Self [id number] [facility] [id number] SP [id number] MEDICARE [id number] A ANSI-Medicare Part B [id number] ANSI-Commercial [id number] ANSI-Commercial [id number] ANSI-Medicare Part B [id number] [facility]) Medigap Part B [id number] Self Y1946 7646 [place] Primary [id number] Self [id number] Medicare Dme Medigap Part B [id number] Self [id number] Medicare Medicare Primary [id number] Self [id number] ANSI-Medicare Part B [id number] ANSI-Commercial [id number] Medicare Dme Medigap Part B [id number] Self [id number] Medicare Medicare Primary [id number] Self [id number] Medicare Dme Medigap Part B [id number] Self [id number] Medicare Medicare Primary [id number] Self 9 [id number] Medicare Dme Medigap Part B [id number] Self [id number] Medicare Medicare Primary [id number] Self [id number] Medicare Dme Medigap Part B [id number] Self [id number] Medicare Medicare Primary [id number] Self [id number] [facility] [id number] SP [id number] MEDICARE [id number] SP [id number] E67 MEDICARE [id number] SP [id number] Medigap Part B [id number] Self [id number] 7646 [place] Medigap Part B [id number] Self [id number] [place] Primary [id number] Self [id number] Medicare Dme Medigap Part B [id number] Self [id number] Medicare Medicare Primary [id number] Self 9 [id number] Medicare Dme Medigap Part B [id number] Self [id number] Medicare Medicare Primary [id number] Self [id number] ANSI-Medicare Part B [id number] ANSI-Commercial [id number] Medicare Dme Medigap Part B [id number] Self [id number] Medicare Medicare Primary [id number] Self [id number] MEDICARE [id number] SP [id number] Medicare Dme Medigap Part B [id number] Self [id number] Medicare Medicare Primary [id number] Self 9 [id number] ANSI-Medicare Part B [id number] ANSI-Commercial [id number] [facility] [facility] Ppo Medigap Part B [id number] Self [id number] Umr Medigap Part B [id number] Self [id number] Medicare (Part B) Medicare Primary [id number] Self [id number] [facility] Medigap Part B [id number] Self [id number] [facility] [facility] Ppo Medigap Part B [id number] Self [id number] Umr Medigap Part B [id number] Self [id number] Medicare (Part B) Medicare Primary [id number] Self [id number] ANSI-Medicare Part B [id number] ANSI-Commercial [id number] Medicare Dme Medigap Part B [id number] Self [id number] Medicare Medicare Primary [id number] Self [id number] Medicare Dme Medigap Part B [id number] Self [id number] Medicare Medicare Primary [id number] Self 9 [id number] ANSI-Medicare Part B [id number] ANSI-Commercial [id number] ANSI-Commercial [id number] ANSI-Medicare Part B [id number] Medicare Dme Medigap Part B [id number] Self [id number] Medicare Medicare Primary [id number] Self [id number] Medicare Dme Medigap Part B [id number] Self [id number] Medicare Medicare Primary [id number] Self [id number] Medicare Dme Medigap Part B [id number] Self [id number] Medicare Medicare Primary [id number] Self 9 [id number] Medicare Dme Medigap Part B [id number] Self [id number] Medicare Medicare Primary [id number] Self 9 [id number] Medicare Dme Medigap Part B [id number] Self [id number] Medicare Medicare Primary [id number] Self [id number] ANSI-Commercial [id number] ANSI-Medicare Part B [id number] [facility] (pr) Medigap Part B [id number] Self Y1946 7646 [place] [id number] Self [id number] Medicare Dme Medigap Part B [id number] Self [id number] Medicare Medicare Primary [id number] Self 9 [id number] Medicare Dme Medigap Part B [id number] Self [id number] Medicare Medicare Primary [id number] Self [id number] [place] [id number] Self [id number] ANSI-Medicare Part B [id number] ANSI-Commercial [id number] Umr (pr) Medigap Part B [id number] Self Y1946 7646 [place] Primary [id number] Self [id number] ANSI-Commercial [id number] ANSI-Medicare Part B [id number] ANSI-Medicare Part B [id number] ANSI-Commercial [id number] [facility] (pr) Medigap Part B [id number] Self Y1946 7646 [place] Primary [id number] Self [id number] U[facility] (pr) Medigap Part B [id number] Self Y1946 7646 [place] Primary [id number] Self [id number] Medicare [facility] Medigap Part B [id number] Self 0 [id number] Medicare Medicare Primary [id number] Self 09 [id number] [place] Medigap Part B [id number] Self [id number] UMR O [id number] S [id number] MEDICARE C [id number] S [id number] A ANSI-Commercial [id number] ANSI-Medicare Part B [id number] [facility] (pr) Medigap Part B [id number] Self Y1946 7646 [place] Primary [id number] Self [id number] ANSI-Commercial [id number] ANSI-Medicare Part B [id number] ANSI-Medicare Part B [id number] ANSI-Commercial [id number] [facility] [facility] Ppo Medigap Part B [id number] Self [id number] Umr Medigap Part B [id number] Self [id number] Medicare (Part B) Medicare Primary [id number] Self [id number] ANSI-Medicare Part B [id number] ANSI-Commercial [id number] [facility] [id number] SP [id number] Umr (pr) Medigap Part B [id number] Self Y1946 7646 [place] [id number] Self [id number] UMR [facility] [id number] SP [id number] UMR [facility] CARE [id number] SP [id number] Umr (pr) Medigap Part B [id number] Self [id number] [place] [id number] Self [id number] [facility] PPO O [id number] S [id number] [place] (pr) Medigap Part B [id number] Self [id number] [place] Primary [id number] Self [id number] [facility] [id number] SP [id number] [place] Primary [id number] Self [id number] [place] (pr) Medigap Part B [id number] Self [id number] Medicare Dme Medigap Part B [id number] Self 0 [id number] Medicare Medicare Primary [id number] Self 09 [id number] Medicare Dme Medigap Part B [id number] Self 0 [id number] Medicare Medicare Primary [id number] Self 09 [id number] Medicare Dme Medigap Part B [id number] Self 0 [id number] Medicare Medicare Primary [id number] Self 09 [id number] [place] [id number] Self [id number] [place] [facility] Ppo Medigap Part B [id number] Self [id number] Medicare (Part B) Medicare Primary [id number] Self [id number] [place] [id number] Self [id number] [place] Primary [id number] Self [id number] [place] (pr) Medigap Part B [id number] Self [id number] Medicare Dme Medigap Part B [id number] Self 0 [id number] Medicare Medicare Primary [id number] Self 09 [id number] [place] Primary [id number] Self [id number] Medicare [facility] Medicare Primary [id number] Self [id number] Medicare [facility] Medicare Primary [id number] Self [id number] Medicare Dme Medigap Part B [id number] Self 0 [id number] Medicare Medicare Primary [id number] Self 09 [id number] [place] Primary [id number] Self [id number] [place] Primary [id number] Self [id number] Medicare Dme Medigap Part B [id number] Self 0 [id number] Medicare Medicare Primary [id number] Self 09 [id number] [place] [facility] Ppo Medigap Part B [id number] Self [id number] Medicare (Part B) Medicare Primary [id number] Self [id number] Medicare [facility] Medicare Primary [id number] Self [id number] Medicare Dme Medigap Part B [id number] Self 0 [id number] Medicare Medicare Primary [id number] Self 09 [id number] Medicare [facility] Medicare Primary [id number] Self [id number] Medicare Dme Medigap Part B [id number] Self 0 [id number] Medicare Medicare Primary [id number] Self [id number] Medicare [facility] Medicare Primary [id number] Self [id number] Medicare [facility] Medicare Primary [id number] Self [id number] Medicare Dme Medicare Primary Self Medicare Medicare Primary Self [place] [employer] Self Medicare [facility] Medicare Primary Self [place] (pr) Commercial Self POMCO [id number] SP [id number] [facility] [facility] Ppo Medigap Part B Self Medicare (Part B) Medicare Primary Self [place] [facility] Medigap Part B Self POMCO [id number] SP [id number] [place] Medigap Part B [place] Medicare Primary Self POMCO [id number] SP [id number] [facility] [id number] SP [id number] [place] Commercial Self Medicare [facility] Medicare Primary Self POMCO [id number] SP [id number] [place] Medigap Part B Self POMCO [id number] SP [id number] MEDICARE A [id number] Self [id number] A [facility] [id number] SP [id number] [facility] U [id number] Self [id number] ALLSTATE E [id number] Self [id number] [facility] Medigap Part B Self Medicare Medicare Primary Self ALLSTATE INS CO NO FAULT [id number] SP [id number] [facility] PPO P [id number] S [id number] [facility] [id number] 18 [id number] ALLSTATE O [id number] S [id number] [facility] O [id number] S [id number] ALLSTATE O [id number] S [id number] Problems, Conditions, and Diagnoses Code Display Name Description Problem Type Effective Dates Data Source(s) R29.6 [id number] Frequent falls Problem 10/19/2020 12:00:00 A M EST [facility] ([facility]) [id number] Onychomycosis Onychomycosis Problem 08/17/2020 12:00:00 AM EDT [facility] ([facility] L97.423 [id number] Non-pressure chronic ulcer of left heel and midfoot with necrosis of muscle Problem 07/21/2020 12:00:00 AM EDT [facility] ([facility]) E11.621 [id number] Type 2 diabetes mellitus with foot ulcer Problem 07/21/2020 12:00:00 AM EDT [facility] ([facility]) Pressure ulcer of other site, stage 2 [...] AM EDT [facility] ([facility] [id number] Onychomycosis Onychomycosis Problem 04/20/2020 12 :00:00 AM EDT - 05/13/2020 12:00:00 AM EDT [facility] ([facility] Pressure ulcer of other site, stage 2 Pressure u lcer of other site, stage 2 Problem 04/20/2020 12:00:00 AM EDT - 05/13/2020 12:00:00 AM ED T [facility] ([facility] N48.1 [id number] Balanitis Problem 11/12/2019 12:00:00 AM ES T eCW1 ([facility]) Z00.00 [id number] Medicare annual wellness visit, subsequen t Problem 11/12/2019 12:00:00 AM EST eCW1 ([facility]) N48.1 35798476 Balanitis Problem 11/12/2019 12:00:00 AM ES T eCW1 ([facility]) Z00.00 [id number] Medicare annual wellness visit, subsequen t Problem 11/12/2019 12:00:00 AM EST eCW1 ([facility]) [id number] Type 2 diabetes mellitus with ulcer Type 2 diabetes mellitus with ulcer Problem 11/07/2019 12:00:00 AM EST [facility] ([facility] Pressure ulcer of other site, stage 1 Pressure u lcer of other site, stage 1 Problem 11/07/2019 12:00:00 AM EST [facility] ([facility] [id number] Acute osteomyelitis of ankle and/or foot Acute osteomyelitis of ankle and/or foot Problem 09/04/2019 12:00:00 AM EST - 09/12/2019 12:00:00 AM EST [facility] ([facility] [id number] Personal history of nicotine dependence Personal history of nicotine dependence Diagnosis 06/09/2020 01:20:00 PM [facility] Z7982 [facility] (current) use of aspirin oil heaterman (cu rrent) use of aspirin Diagnosis 06/09/2020 01:20:00 PM [facility] [id number] Chronic systolic (congestive) heart fail ure Chronic systolic (congestive) heart failure Diagnosis 06/09/2020 01:20:00 PM [facility] [id number] Unspecified asthma, uncomplicated Unspecified as thma, uncomplicated Diagnosis 06/09/2020 01:20:00 PM [facility] [id number] Type 2 diabetes mellitus with hypoglycem ia without coma Type 2 diabetes mellitus with hypoglycemia without coma Diagnosis 06/09/2020 01:20:00 PM [facility] Surgeries/Procedures Procedure Description Date Indications Data Source(s) FINE NEEDLE ASPIRATION W/O IMAGING GUIDANCE 10/25/2020 12:00:00 AM EST eCW1 ([facility]) FINE NEEDLE ASPIRATION W/O IMAGING GUIDANCE 10/19/2020 12:00:00 AM EST eCW1 ([facility]) FINE NEEDLE ASPIRATION W/O IMAGING GUIDANCE 10/06/2020 12:00:00 AM EST eCW1 ([facility]) FINE NEEDLE ASPIRATION W/O IMAGING GUIDANCE 09/29/2020 12:00:00 AM EST eCW1 ([facility]) FINE NEEDLE ASPIRATION W/O IMAGING GUIDANCE 09/21/2020 12:00:00 AM EST eCW1 ([facility]) Deep Dissection Below Fascia Foot Infection Bursal Space Sin gle 08/28/2020 12:00:00 AM EST MEDENT ([facility] Amb Glucose Monitoring Interpretation And Report 08/20 12:00:00 AM EDT MEDENT ([facility]) FINE NEEDLE ASPIRATION W/O IMAGING GUIDANCE 08/18/2020 12:00:00 AM EDT eCW1 ([facility]) FINE NEEDLE ASPIRATION W/O IMAGING GUIDANCE 08/04/2020 12:00:00 AM EDT eCW1 ([facility]) DEBRIDEMENT NAIL ANY METHOD 1-5 08/03/2020 12:00:00 AM EDT MED[facility] ([facility] FINE NEEDLE ASPIRATION W/O IMAGING GUIDANCE 07/28/2020 12:00:00 AM EDT eCW1 ([facility]) ECG ROUTINE ECG W/LEAST 12 LDS W/I&R 07/26/2020 12:00: 00 AM EDT MEDENT ([facility]) FINE NEEDLE ASPIRATION W/O IMAGING GUIDANCE 07/21/2020 12:00:00 AM EDT eCW1 ([facility]) RADEX FOOT COMPLETE MINIMUM 3 VIEWS 06/07/2020 12:00:0 0 AM EDT [facility] ([facility] DEBRIDEMENT SUBCUTANEOUS TISSUE 20 SQ CM/< 06/01/2020 12:00:00 AM EDT [facility] ([facility] DEBRIDEMENT SUBCUTANEOUS TISSUE 20 SQ CM/< 05/25/2020 12:00:00 AM EDT MEDENT ([facility] Diabetic Foot Exam 05/18/2020 12:00:00 AM EDT MEDENT ([facility]) Amb Glucose Monitoring Interpretation And Report 05/18 12:00:00 AM EDT MEDENT ([facility]) DEBRIDEMENT SUBCUTANEOUS TISSUE 20 SQ [...] Si ngle 03/29/2020 12:00:00 AM EDT MEDENT ([facility] ) Injec Anesthetic Agent/Steroid Trans Epidural Lumb/Sacral Ea Addl 03/29/2020 12:00:00 AM EDT MEDENT ([facility] ) Epidurography Radiological Supervision & Interpretation 03/29/2020 12:00:00 AM EDT MEDENT ([facility] ) Moderate Sedation Services; Same Phys Intl 15 Mins; PT >= 5 Years 03/29/2020 12:00:00 AM EDT MEDENT ([facility] ) ARTHROCENTESIS ASPIR&/INJECTION MAJOR JT/BURSA 12:00:00 AM EDT MEDENT ([facility] ) DEBRIDEMENT OPEN WOUND 20 SQ CM/< 03/10/2020 12:00:00 AM EDT MED[facility] ([facility] ARTHROCENTESIS ASPIR&/INJECTION MAJOR JT/BURSA 05/14/2 020 12:00:00 AM EDT MEDENT ([facility]) DEBRIDEMENT OPEN WOUND 20 SQ CM/< 02/25/2020 12:00:00 AM EDT MED[facility] ([facility] ARTHROCENTESIS ASPIR&/INJECTION MAJOR JT/BURSA 020 12:00:00 AM EDT MEDENT ([facility]) RADIOLOGIC EXAM KNEE COMPLETE 4/MORE VIEWS 02/24/2020 12:00:00 AM EDT MEDENT ([facility]) DEBRIDEMENT SUBCUTANEOUS TISSUE 20 SQ [...] 2 FC 02/06/2020 12:00:00 AM EDT eCW1 ([facility]) TRANS CARE MGMT 7 DAY DISCH 02/06/2020 12:00:00 AM EDT eCW1 ([facility]) Tenotomy Toe Subcutaneous Single 01/08/2020 12:00:00 A [...] 00 AM EST MEDENT ([facility]) DEBRIDEMENT OPEN WOUND 20 SQ CM/< 11/07/2019 12:00:00 AM EST [facility] ([facility] Office Visit, Est Pt., Level 3 PC 11/04/2019 12:00:00 AM EST eCW1 ([facility]) Influenza immunization administered or previously received 11/04/2019 12:00:00 AM EST eCW1 ([facility]) Amb Glucose Monitoring Interpretation And Report 11/03 12:00:00 AM EST MEDENT ([facility]) DEBRIDEMENT OPEN WOUND 20 SQ CM/< 10/24/2019 12:00:00 AM EST MED[facility] ([facility] Results ID Date Data Source [id number] 10/23/2020 01:52:00 AM EST [facility] Name Value Range Interpretation Code Description Data Aydee rce(s) Supporting Document(s) SARS coronavirus 2 RNA [Presence] in Res piratory specimen by TINY with probe detection [facility] This lab was ordered by [facility] a nd reported by [facility]. ID Date Data Source LIPID PANEL (CARDIAC RISK) 10/19/2020 12:00:00 AM EST eCW1 ( [facility]) Name Value Range Interpretation Code Description Data Aydee rce(s) Supporting Document(s) Cholesterol in HDL [Moles/volume] in Serum or Plasma 48 >40 HDL CHOLESTEROL eCW1 ([facility]) Triglyceride [Mass/volume] in Serum or Plasma by calculation 189 <150 TRIGLYCERIDES LEVEL eCW1 ([facility]) Cholesterol [Moles/volume] in Serum or Plasma 134 <200 CHOLESTEROL LEVEL eCW1 ([facility]) Cholesterol in LDL [Mass/volume] in Serum or Plasma by calculation 48 <100 LDL CHOLESTEROL eCW1 ([facility]) 86 NON-HDL-C eCW1 ([facility]) 2.791 <5 CHOLESTEROL RISK RATIO eCW1 ([facility]) ID Date Data Source [id number] 10/19/2020 12:00:00 AM EST eCW1 ([facility]) Name Value Range Interpretation Code Description Data Aydee rce(s) Supporting Document(s) Hemoglobin A1c/Hemoglobin.total in Blood 9.0 HEMOGLOBIN A1c eCW1 ([facility]) ID Date Data Source FREE T4 & TSH PANEL 10/19/2020 12:00:00 AM EST eCW1 ([facility]) Name Value Range Interpretation Code Description Data Aydee rce(s) Supporting Document(s) 1.32 0.76-1.46 FREE T4 eCW1 ([facility]) 3.410 0.358-3.740 THYROID STIMULATING HORM ONE eCW1 ([facility]) ID Date Data Source Comprehensive Metabolic Profile (CMP) 10/19/2020 12:00:00 AM EST eCW1 ([facility]) Name Value Range Interpretation Code Description Data Aydee rce(s) Supporting Document(s) 1.30 0.70-1.30 CREATININE FOR GFR eCW1 ([facility]) 127 136-145 SODIUM LEVEL eCW1 ([facility]) 58.1 >42 GLOMERULAR FILTRATION RATE eCW 1 ([facility]) 558 70-100 GLUCOSE, FASTING eCW1 ([facility]) 21 7-18 BLOOD UREA NITROGEN eCW1 ([facility]) 21 21-32 CARBON DIOXIDE LEVEL eCW1 ([facility]) 10.0 8.8-10.2 CALCIUM LEVEL eCW1 ([facility]) 5.0 3.5-5.1 POTASSIUM SERUM eCW1 ([facility]) 90 98-107 CHLORIDE LEVEL eCW1 ([facility]) 19 12-78 ALT/SGPT eCW1 ([facility]) 8 7-37 AST/SGOT eCW1 ([facility]) 159 45-117 ALKALINE PHOSPHATASE eCW1 ([facility]) 0.6 0.2-1.0 BILIRUBIN,TOTAL eCW1 ([facility]) 3.4 3.2-5.2 ALBUMIN eCW1 ([facility]) 0.7 ALBUMIN/GLOBULIN RATIO eCW1 ([facility]) 8.1 6.4-8.2 TOTAL PROTEIN eCW1 ([facility]) ID Date Data Source CBC - Complete Blood Count 10/19/2020 12:00:00 AM EST eCW1 ( [facility]) Name Value Range Interpretation Code Description Data Aydee rce(s) Supporting Document(s) 7.6 4.0-10.0 eCW1 ([facility]) 11.6 13.5-17.5 eCW1 ([facility]) 37.2 42.0-52.0 eCW1 ([facility]) 4.56 4.30-6.10 eCW1 ([facility]) 25.4 27.0-33.0 eCW1 ([facility]) 31.2 32.0-36.5 eCW1 ([facility]) 15.9 11.5-14.5 eCW1 ([facility]) 81.6 80.0-96.0 eCW1 ([facility]) 419 150-450 eCW1 ([facility]) ID Date Data Source [id number] 10/06/2020 08:00:00 AM EST [facility] Name Value Range Interpretation Code Description Data Aydee rce(s) Supporting Document(s) SARS coronavirus 2 RNA [facility] This lab was ordered by [facility] and reported by [facility]. ID Date Data Source [id number] 09/29/2020 10:00:00 AM EST [facility] Name Value Range Interpretation Code Description Data Aydee rce(s) Supporting Document(s) SARS coronavirus 2 RNA [facility] This lab was ordered by [facility] and reported by [facility]. ID Date Data Source [id number] 09/22/2020 09:30:00 AM EST [facility] Name Value Range Interpretation Code Description Data Aydee rce(s) Supporting Document(s) SARS coronavirus 2 RNA [facility] This lab was ordered by [facility] and reported by [facility]. ID Date Data Source [id number] 09/15/2020 09:00:00 AM EST [facility] Name Value Range Interpretation Code Description Data Aydee rce(s) Supporting Document(s) SARS coronavirus 2 RNA [facility] This lab was ordered by [facility] and reported by [facility]. ID Date Data Source [id number] 08/20/2020 01:42:00 PM EDT MEDENT ([facility]) Name Value Range Interpretation Code Description Data Aydee rce(s) Supporting Document(s) Hemoglobin A1c/Hemoglobin.total in Blood 12.0 MEDENT ([facility]) Glucose [Mass/volume] in Serum or Plasma 185 MEDENT ([facility]) ID Date Data Source [id number] 07/08/2020 12:27:00 PM EDT MEDENT ([facility]) Name Value Range Interpretation Code Description Data Aydee rce(s) Supporting Document(s) Thyroid Stimulating Hormone 2.470 ME DENT ([facility]) Free T4 1.16 MED[facility] ([facility] ID Date Data Source [id number] 07/06/2020 12:21:00 PM EDT MEDENT ([facility]) Name Value Range Interpretation Code Description Data Aydee rce(s) Supporting Document(s) Uric Acid 3.4 2.7-8.4 [facility] Magnesium Level 1.66 [facility] ID Date Data Source [id number] 07/06/2020 12:21:00 PM EDT MED[facility] ([facility] Name Value Range Interpretation Code Description Data Aydee rce(s) Supporting Document(s) White Blood Count 10.0 4.3-10.9 [facility] Red Blood Count 4.60 4.70-6.20 [facility]) Hematocrit 40.5 39.0-50.0 [facility] ([facility]) Platelets 378 130-400 [facility] Hemoglobin 13.5 13.0-17.0 [facility] ([facility]) ID Date Data Source [id number] 07/06/2020 12:21:00 PM EDT [facility] ([facility] Name Value Range Interpretation Code Description Data Aydee rce(s) Supporting Document(s) Glucose 464 70-100 [facility] Blood Urea Nitrogen 16.2 5-21 MEDENT ([facility] Creatinine 1.1 0.6-1.5 [facility] ([facility] [place] ID Date Data Source [id number] 06/10/2020 09:48:00 AM EDT [facility] [address] [place] [address] PHONE: [phone] FAX: [phone] Name .................. : LUCITA FLOR Acct Number.................. : [id number] ROOM. ................. : TR-1A MR Number ................... : [id number] Stay type ............. : E/R Discharge Date......... ... : 06/09/20 Admit Date ......... : 06/09/20 Admit Phys .................... : JOHN TOMAS Date of ....... : 1950 Family Phys ................... : [employer] Phone .................. : [phone] Age ................................ : 70 Film# .................. .:[id number] Sex ................................. : M Unsigned transcriptions are preliminary reports and do not represent a medical or legal document CHEST PORTABLE [id number] COMPLETE:06/09/20 14:11 ARS 04006 Reason(s): weakness, Hx of CHF PORTABLE CHEST [...] rce(s) Supporting Document(s) ID Date Data Source [id number] 06/09/2020 08:52:00 [place] [address] RESPIRATORY CARE REPORT ==== ---------NAME------- NUMBER SEX AGE ADMIT DISC. XRAY# F/C ERIC FLOR [id number] M 70 06/09/20 06/09/20 [id number] MB4 E/R DATE OF : 1950 M/R# [id number] #: [id number] TR-1A LOCATION: EMERGENCY DEPT EKG [id number] COMPLE TE:06/09/20 14:07 EWW 57763 PHYSICIAN: JOHN TOMAS Name Value Range Interpretation Code Description Data Aydee rce(s) Supporting Document(s) ID Date Data Source [id number] 06/09/2020 01:20:00 PM EDT [facility] 1 OrderSheet [facility] Emergency Department [address] [place] [address] Phone #: ext- [phone] 06/09/2020 13:03 Patient: [...] RN, M.D.;PT/PTT STAT 13:30 06/09/2020 13:31 Cedrick Pedroaz RN, M.D.;Troponin-T STAT 13:30 06/09/2020 13:31 Cedrick Pedroza RN, M.D.;BNP STAT 13:31 06/09/2020 13:55 Cedrick Pedroza RN, M.D.;DIAGNOSTIC STUDY ORDERSOrder Description Priority Entered Acknowledged InitialedChest Portable 1 STAT 13:31 06/09/2020 13:55 Cedrick Rowell RN(Oxygen?(No)) Alicia; Reason for Study: weakness, Hx of CHFMEDICATION/IV/DRIP/FLUID ORDERSOrder Description Priority Entered Acknowledged [id number] IVP 50 mL 13:30 06/09/2020 13:55 Cedrick Pedroza RN, M.D.; 2 OrderSheet [facility] Emergency Department [address] [place] [address] Phone #: ext- [phone] 06/09/2020 13:03 Patient: CHACHO RING Sex: M : 1950 Age: 41wA0AO IV : 100 13:30 06/09/2020 13:56 DorismL/hr Cedrick Otero RN, M.D.;GENERAL ORDERSOrder Description Priority Entered Acknowledged InitialedDiet: (Regular Diet) 13:21 06/09/2020 13:23 Cedrick Perea ED, Jesse ER M.D.; Vkhn5Djgzk Pressure 13:30 06/09/2020 13:30 Lesleeonitor Cedrick Otero RN, M.D.;Fisheries Enforcement Officer 13:30 06/09/2020 13:30 Chula(continuous) Cedrick Otero RN, [...] rce(s) Supporting Document(s) ID Date Data Source [id number] 06/09/2020 01:20:00 PM EDT [facility] 1 Medication Reconciliation Report [facility] Emergency Department [address] [place] [address] Phone #: ext- [phone] 06/09/2020 13:03 Patient: [...] Multi-Vitamins Oral, daily 2 Medication Reconciliation Report [facility] Emergency Department [address] [place] [address] Phone #: ext- [phone] 06/09/2020 13:03 Patient: CHACHO RING Sex: M [...] rce(s) Supporting Document(s) ID Date Data Source [id number] 06/09/2020 01:20:00 PM EDT [facility] 1 Medication Administration Record [facility] Emergency Department [address] [place] [address] Phone #: ext- [phone] 06/09/2020 13:03 Patient: [...] rce(s) Supporting Document(s) ID Date Data Source [id number] 06/09/2020 01:20:00 PM EDT [facility] 1 General Instructions [facility] Emergency Department [address] [place] [address] Phone #: ext- [phone] 06/09/2020 13:03 [id number] Sex: M : 1950 Age: 70yHypoglycemia without coma- associated with type 1 diabetes and use of insulin.INSTRUCTIONS (PLEASE EAT 3 MEALS PER DAY AND SNACK BETWEEN MEALS; PLEASE SEE DR. CALDWELL, SUPERINTENDENT DRILLING AND PRODUCTION, IN NEXT FEW DAYS TO HAVE YOUR INSULIN ADJUSTED NEEDED).Warnings: Further evaluation is necessary (Ad Writer). It is very important to follow up with [facility] provider.GENERAL WARNINGS: Return or contact your physician [...] Subcutaneous : 20 daily. 2 General Instructions [facility] Emergency Department [address] [place] [address] Phone #: tem- [phone] 06/09/2020 13:03 [facility]: [id number] Sex: M : 1950 Age: 70y [place] [...] you are taking a 3 General Instructions [facility] Emergency Department [address] [place] [address] Phone #: ext- [phone] 06/09/2020 13:03 Patient: CHACHO RING Sex: M [...] soon as possible to 4 General Instructions [facility] Emergency Department [address] [place] [address] Phone #: ext- [phone] 06/09/2020 13:03 Patient: [...] injection.For more information about diabetes, contact the [place] [employer], atwww.diabetes.org.When to seek medical adviceCall your healthcare provider right away if any of these symptoms of low blood sugar occur. Fatigue Headache Shakes Excess sweating Hunger Feeling anxious or restless Vision changes Drowsiness Weakness 5 General Instructions [facility] Emergency Department [address] [place] [address] Phone #: yqh- [phone] 06/09/2020 13:03 Patient: CHACHO RING Sex: M : 1950 Age: 70y Confusion Personality changes Seizure or loss of consciousness [phone] [employer]. [address] [place] [address]. All rights reserved. This information is not intended as asubstitute for professional medical care. Always follow your healthcare professional's instructions. You have been given the following additional information: Diabetic Insulin Reaction(Electronically signed by Cedrick Otero M.D. 06/09/2020 18:16) Name Value Range Interpretation Code Description Data Aydee rce(s) Supporting Document(s) ID Date Data Source [id number] 06/09/2020 01:20:00 PM EDT [facility] 1 Clinical Report - Nurses [facility] Emergency Department [address] [place] [address] Phone #: ext- [phone] 06/09/2020 13:03 Patient: [...] appt; Pt was conscious butunresponsive according to [employer] when he brought his vehicle in for a check light; When emsarrived his FS was 45, oral glucose given and went up to 113. 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 2 Clinical Report - Nurses [facility] Emergency Department [address] [place] [address] Phone #: ext- [phone] 06/09/2020 13:03 Patient: [...] "Do you 3 Clinical Report - Nurses [facility] Emergency Department [address] [place] [address] Phone #: ext- [phone] 06/09/2020 13:03 Patient: [...] on patient. --13:18 06/09/20 Lilli Spaulding R.N.PHYSICAL [id number] 06/09/20. To room via stretcher.GENERAL / NEURO [...] including reason 4 Clinical Report - Nurses [facility] Emergency Department [address] [place] [address] Phone #: ext- [phone] 06/09/2020 13:03 Patient: [...] / DISCHARGE 5 Clinical Report - Nurses [facility] Emergency Department [address] [place] [address] Phone #: ext- [phone] 06/09/2020 13:03 Patient: CHACHO RING Sex: M : 1950 Age: 70y 17:25 06/09/20. BP: 151/94. MAP: 113. HR: 77. RR: 17. O2 saturation: 97%. Temp: 98 F. Pain level now: 0/10. --18:12 06/09/20 Chula Harvey RN 17:25 06/09/2020 Site #1 removed upon discharge. Catheter intact. Manual pressure and bandage applied. --18:12 06/09/20 Chula Harvey RN 17:30 06/09/20. Condition at [facility]: improved and stable. No learning barriers present. Discharge instructions provided and reviewed with the patient. Patient verbalized understanding. Written instructions provided in [facility] [place]. ( Follow up with Dr Deborah Caldwell). The patient was discharged home and accompanied by taxi. He left ambulatory and via taxi. Patient driving. --18:12 06/09/20 Chula Harvey RN.Locked/Released at 06/09/2020 18:13 by Chula Harvey RN Name Value Range Interpretation Code Description Data Aydee rce(s) Supporting Document(s) ID Date Data Source [id number] 06/09/2020 01:20:00 PM EDT [facility] 1 Clinical Report - Physicians/Mid Levels [facility] Emergency Department [address] [place] [address] Phone #: ext- [phone] 06/09/2020 13:03 [id number] Sex: M : 1950 Age: 70y Time [...] has known recurrent hypoglycemia incidents, was at [facility] ER on 16 for same; pt [...] Medications: 2 Clinical Report - Physicians/Mid Levels [facility] Emergency Department [address] [place] [address] Phone #: ext- [phone] 06/09/2020 13:03 Patient: [...] mass. 3 Clinical Report - Physicians/Mid Levels [facility] Emergency Department [address] [place] [address] Phone #: ext- [phone] 06/09/2020 13:03 Patient: CHACHO RING Sex: M [...] making process. BNP: (FELI: 06/09/2020 13:47) ( [facility] 06/09/2020 14:36) Final results Test Result Flag Units (Reference) BNP 1631 H PG/ML (0 - 125) Chest Portable 1 View: (FELI: 06/09/2020 13:31) ( [facility] 06/09/2020 14:12) In Progress CHEST PORTABLE Reason(s): weakness, Hx of CHF TRANSPORTATION: P IV? O2? Oxygen?(No) Room: ED CBC w Diff: (FELI: 06/09/2020 14:00) ( [facility] 06/09/2020 14:17) Final results Test Result [...] 0.00) 4 Clinical Report - Physicians/Mid Levels [facility] Emergency Department [address] [place] [address] Phone #: ext- [phone] 06/09/2020 13:03 Patient: [...] mL/min Normal Lipase: (FELI: 06/09/2020 13:47) ( [facility] 06/09/2020 14:37) Final results Test Result Flag Units (Reference) LIPASE 7 L U/L (13 - 60) Troponin-T: (FELI: 06/09/2020 13:47) ( [facility] 06/09/2020 14:28) Final results Test Result Flag Units (Reference) TROPONIN T <0.01 NG/ML (0.00 - 0.10) TROPONIN T0.1 ng/ml Recommended as the clinical threshold value Stefanieropohiral Giordano. EKG: (FELI: 06/09/2020 13:30) ( [facility] 06/09/2020 14:10) In Progress . Bedside Tests: Glucose: mild hypoglycemia - 56 (performed at bedside).PROGRESS AND PROCEDURESCourse of Care: 15:12 06/09/20. workup all in and reviewed; glucose up; BNP elevated but pt known wCHF, CXR clear; pt doing much better, ate whole tray and got 50 ml D50% soln. 5 Clinical Report - Physicians/Mid Levels [facility] Emergency Department [address] [place] [address] Phone #: ext- [phone] 06/09/2020 13:03 Patient: CHACHO RING Sex: M [...] SNACK BETWEEN MEALS; PLEASE SEE DR. CALDWELL, SUPERINTENDENT DRILLING AND PRODUCTION, IN NEXT FEW DAYS TO HAVE YOUR INSULIN ADJUSTED NEEDED). Warnings: Further evaluation is necessary (Ad Writer). It is very important to follow up [...] daily. 6 Clinical Report - Physicians/Mid Levels [facility] Emergency Department [address] [place] [address] Phone #: ext- [phone] 06/09/2020 13:03 Patient: [...] rce(s) Supporting Document(s) ID Date Data Source [id number] 06/09/2020 02:17:00 PM EDT [facility] Name Value Range Interpretation Code Description Data Aydee rce(s) Supporting Document(s) CBC W/AUTOMATED DIFF [facility] COMPLETE BLOOD COUNT Leukocytes [#/volume] in Blood by Automated count 9.0 10^3/uL 4.2 - 1 1.0 [facility] Erythrocytes [#/volume] in Blood by Automated count 5.05 10^6/uL 4. 50 - 6.30 [facility] Hemoglobin [Mass/volume] in Blood 14.5 g/dL 14.0 - 16.0 [facility] Hematocrit [Volume Fraction] of Blood by Automated count 44.5 % 4 1.0 - 51.0 [facility] Erythrocyte mean corpuscular volume [Entitic volume] by Auto mated count 88.1 fL 80.0 - 94.0 [facility] Erythrocyte mean corpuscular hemoglobin [Entitic mass] by Automated count 28.7 pg 27.0 - 34.0 [facility] Erythrocyte mean corpuscular hemoglobin concentration [Mass/volume] by Automated count 32.6 g/dL 31.0 - 36.0 [facility] Erythrocyte distribution width [Ratio] by Automated count 13.9 % 11.5 - 14.8 [facility] Platelets [#/volume] in Blood by Automated count 205 10^3/uL 150 - 45 0 [facility] Platelet mean volume [Entitic volume] in Blood by Automated count 9.6 fL 7.4 - 10.4 [facility] Neutrophils/100 leukocytes in Blood by Automated count 65.0 % 37. 0 - 80.0 [facility] Lymphocytes/100 leukocytes in Blood by Manual count 24.9 % 25.0 - 40.0 L [facility] Monocytes/100 leukocytes in Blood by Automated count 7.8 % 3.0 - 8.0 [facility] Eosinophils/100 leukocytes in Blood by Automated count 1.3 % 0.0 - 7.0 [facility] Basophils/100 leukocytes in Blood by Automated count 0.6 % 0.0 - 2.0 [facility] %IG 0.4 % 0.0 - 0.0 H [facility] %NRBC 0.0 % 0.0 - 0.0 [facility] al Neutrophils [#/volume] in Blood by Automated count 5.86 10^3/uL 2.00 - 6.90 [facility] Lymphocytes [#/volume] in Blood by Automated count 2.24 10^3/uL 0.60 - 3.40 [facility] Monocytes [#/volume] in Blood by Automated count 0.70 10^3/uL 0.00 - 0.90 [facility] Eosinophils [#/volume] in Blood by Automated count 0.12 10^3/uL 0.00 - 0.70 [facility] Basophils [#/volume] in Blood by Automated count 0.05 10^3/uL 0.00 - 0.20 [facility] #IG 0.04 10^3/uL 0.00 - 0.10 [facility] #NRBC 0.00 10^3/uL 0.00 - 0.00 [facility] MANUAL DIFF NOT INDICATED [facility] RBC MORPH NOT INDICATED [facility] ID Date Data Source [id number] 06/09/2020 02:37:00 PM EDT [facility] Name Value Range Interpretation Code Description Data Aydee rce(s) Supporting Document(s) Lipase [Enzymatic activity/volume] in Serum or Plasma 7 U/L 13 - 60 L [facility] ID Date Data Source [id number] 06/09/2020 02:36:00 PM EDT [facility] Name Value Range Interpretation Code Description Data Aydee rce(s) Supporting Document(s) COMPREHENSIVE METABOLIC PANEL [facility] COMPREHENSIVE METABOLIC PANEL Sodium [Moles/volume] in Serum or Plasma 137 mEq/L 134 - 153 [facility] Potassium [Moles/volume] in Serum or Plasma 4.3 mEq/L 3.6 - 5.0 [facility] Chloride [Moles/volume] in Serum or Plasma 100 mEq/L 98 - 107 [facility] Carbon dioxide, total [Moles/volume] in Serum or Plasma 23 MEQ/L 22 - 30 [facility] Glucose [Mass/volume] in Serum or Plasma 189 MG/DL 65 - 110 H [facility] BUN 12 MG/DL 7 - 21 [facility] al Creatinine [Mass/volume] in Serum or Plasma 0.7 MG/DL 0.7 - 1.5 [facility] BUN/CREAT 17 8 - 27 [facility] Protein [Mass/volume] in Serum or Plasma 7.0 G/DL 6.3 - 8.2 [facility] Albumin [Mass/volume] in Serum or Plasma 4.1 G/DL 3.9 - 5.0 [facility] Globulin [Mass/volume] in Serum by calculation 2.9 GM/DL 2.4 - 3.2 [facility] A/G RATIO 1.4 0.8 - 2.0 [facility] Calcium [Mass/volume] in Serum or Plasma 9.6 MG/DL 8.4 - 10.2 [facility] Bilirubin.total [Mass/volume] in Serum or Plasma <0.7 MG/DL 0.2 - 1.3 [facility] Alkaline phosphatase [Enzymatic activity/volume] in Serum or Plasma 110 U/L 38 - 126 [facility] Aspartate aminotransferase [Enzymatic activity/volume] in Serum or Plasma 35 U/L 5 - 40 [facility] Alanine aminotransferase [Enzymatic activity/volume] in Seru m or Plasma 21 U/L 7 - 56 [facility] Anion gap 3 in Serum or Plasma 14.0 mmol/L 8.0 - 16.0 [facility] AGE 70 yrs [facility] al NON-AA GFR >60 mL/min [facility] ital AFR AMER GFR >60 mL/min [facility] Male GFR In terprentation [...] >32 mL/min Normal ID Date Data Source [id number] 06/09/2020 02:34:00 PM EDT [facility] Name Value Range Interpretation Code Description Data Aydee rce(s) Supporting Document(s) BNP 1631 PG/ML 0 - 125 H [facility] ashleigh ID Date Data Source [id number] 06/09/2020 02:28:00 PM EDT [facility] Name Value Range Interpretation Code Description Data [facility] rce(s) Supporting Document(s) TROPONIN T <0.01 NG/ML 0.00 - 0.10 [facility] TROPONIN T0.1 ng/ml Recommended as the c linical threshold value forTroponin T. ID Date Data Source [id number] 06/01/2020 02:15:00 PM EDT [facility] ([facility] Name Value Range Interpretation Code Description [facility] Document(s[facility] Wound Culture Laboratory test [...] <=0.12 S</content>
<content></content> ID Date Data Source [id number] 05/18/2020 11:46:00 AM EDT [facility] ([facility] ) Name Value Range Interpretation Code Description Data Aydee rce(s) Supporting Document(s) Glucose [Mass/volume] in Serum or Plasma 145 [facility] ([facility]) Hemoglobin A1c/Hemoglobin.total in Blood 8.9 [facility] ([facility]) ID Date Data Source [id number] 03/26/2020 10:15:00 AM EDT [facility] Name Value Range Interpretation Code Description Data Aydee rce(s) Supporting Document(s) SARS CORONAVIRUS 2 RNA [facility] This lab was ordered by [facility] and reported by [facility]. ID Date Data Source [id number] 03/26/2020 10:15:00 AM EDT [facility] ([facility]) Name Value Range Interpretation Code Description Data Aydee rce(s) Supporting Document(s) Laboratory test finding (navigational concept) Laboratory test result [facility]) Testing was performed using the conrad(R) SARS-CoV-2 test. This test was developed and its performance characteristics determined by [employer]. This test has not been FDA cleared [...] detected) result in this assay. Performed at: [facility] [id number] Expense Clerk: Joycelyn Edge MD, Phone: [phone] Not Detected ID Date Data Source [id number] 03/26/2020 10:02:00 AM EDT [facility] ([facility]) Name Value Range Interpretation Code Description Data Aydee rce(s) Supporting Document(s) Platelets [#/volume] in Blood by Automated count 175 10 150-450 [facility] ([facility]) ID Date Data Source [id number] 03/26/2020 10:02:00 AM EDT [facility] ([facility]) Name Value Range Interpretation Code Description Data Aydee rce(s) Supporting Document(s) Prothrombin Time 15.6 s 11.8-14.0 [facility] ([facility]) Partial Thromboplastin Time 35.6 s 25.0-38.4 [facility] ([facility]) Inr 1.27 [facility] ([facility]) THERAPUTIC HUMAN INR VALUES INDICATIONS NORMAL RANGES PROPHYLAXIS/TREATMENT OF: VENOUS THROMBOSIS 2.0-3.0 PULMONARY EMBOLISM 2.0-3.0 PREVENTION OF SYSTEMIC EMBOLISM FROM: TISSUE HEART VALVES 2.0-3.0 ACUTE MYOCARDIAL INFARCTION 2.0-3.0 VALVULAR HEART DISEASE 2.0-3.0 ATRIAL FIBRILLATION 2.0-3.0 MECHANICAL VALVES(HIGH RISK) 2.5-3.5 RECURRENT MYOCARDIAL INFARCTION 2.5-3.5 ID Date Data Source [id number] 01/01/2020 09:10:00 AM EDT [facility] ([facility]) Name Value Range Interpretation Code Description Data Aydee rce(s) Supporting Document(s) Magnesium Level 1.57 [facility] ([facility] ID Date Data Source [id number] 01/01/2020 09:10:00 AM EDT [facility] ([facility]) Name Value Range Interpretation Code Description Data Aydee rce(s) Supporting Document(s) White Blood Count 7.9 5.0-10.0 [facility] ([facility] Platelets 317 172-450 [facility] Red Blood Count 4.91 4.70-6.10 [facility] Hemoglobin 14.9 14.0-18.0 [facility] ([facility]) Hematocrit 45.5 42.0-52.0 [facility]) ID Date Data Source [id number] 01/01/2020 09:10:00 AM EDT [facility] ([facility] Name Value Range Interpretation Code Description Data Aydee rce(s) Supporting Document(s) Blood Urea Nitrogen 16.0 7-25 [facility] ([facility] Glucose 373 70-100 [facility] Creatinine 0.78 0.6-1.4 [facility] ([facility]) Glomerular filtration rate/1.73 sq M.pre dicted [Volume Rate/Area] in Serum or Plasma by Creatinine-based formula (MDRD) 98 [facility] ([facility]) Sodium 134.6 135-145 [facility] Potassium 4.18 3.5-5.3 [facility] Chloride 98.5 98-110 [facility] Carbon Dioxide 29.9 20-32 [facility] ([facility] Albumin 4.0 3.5-4.7 [facility] Calcium 8.79 8.4-10.4 [facility] Phosphorus 2.69 [facility] ID Date Data Source [id number] 12/17/2019 01:39:00 PM EST [facility] ([facility]) Name Value Range Interpretation Code Description Data Aydee rce(s) Supporting Document(s) Prothrombin Time 14.0 s 11.8-14.0 [facility] ([facility]) Partial Thromboplastin Time 34.2 s 25.0-38.4 [facility] ([facility]) Inr 1.11 [facility] ([facility]) THERAPUTIC HUMAN INR VALUES INDICATIONS NORMAL RANGES PROPHYLAXIS/TREATMENT OF: VENOUS THROMBOSIS 2.0-3.0 PULMONARY EMBOLISM 2.0-3.0 PREVENTION OF SYSTEMIC EMBOLISM FROM: TISSUE HEART VALVES 2.0-3.0 ACUTE MYOCARDIAL INFARCTION 2.0-3.0 VALVULAR HEART DISEASE 2.0-3.0 ATRIAL FIBRILLATION 2.0-3.0 MECHANICAL VALVES(HIGH RISK) 2.5-3.5 RECURRENT MYOCARDIAL INFARCTION 2.5-3.5 ID Date Data Source [id number] 12/17/2019 01:39:00 PM EST [facility] ([facility]) Name Value Range Interpretation Code Description Data Aydee rce(s) Supporting Document(s) Platelets [#/volume] in Blood by Automated count 216 10 150-450 [facility] ([facility]) ID Date Data Source [id number] 12/11/2019 01:58:00 PM EST [facility] ([facility]) Name Value Range Interpretation Code Description Data Adyee rce(s) Supporting Document(s) Laboratory test finding (navigational concept) Laboratory test result [facility] ([facility]) ID Date Data Source [id number] 11/04/2019 02:49:00 PM EST [facility] ([facility] Name Value Range Interpretation Code Description Data Aydee rce(s) Supporting Document(s) Magnesium Level 1.7 [facility] ([facility]) ID Date Data Source [id number] 11/04/2019 02:49:00 PM EST [facility] ([facility]) Name Value Range Interpretation Code Description Data Aydee rce(s) Supporting Document(s) Cholesterol 132 120-200 [facility] ([facility]) HDL 72 40-60 [facility] Triglycerides 71 [facility] ([facility]) Chol/HDL Ratio 1.833 [facility] ([facility]) Cholesterol in LDL [Mass/volume] in Serum or Plasma by calculation 46 [facility] ([facility]) ID Date Data Source [id number] 11/04/2019 02:49:00 PM EST [facility] ([facility]) Name Value Range Interpretation Code Description Data Aydee rce(s) Supporting Document(s) Thyroid Stimulating Hormone 2.160 [facility] ([facility]) ID Date Data Source [id number] 11/04/2019 02:49:00 PM EST [facility] ([facility] Name Value Range Interpretation Code Description Data Aydee rce(s) Supporting Document(s) Albumin [Mass/volume] in Serum or Plasma 4.1 [facility] ([facility]) Alanine aminotransferase [Enzymatic activity/volume] in Serum or Pl asma 26 [facility] ([facility]) Carbon dioxide, total [Moles/volume] in Serum or Plasma 27 [facility] ([facility]) Calcium [Mass/volume] in Serum or Plasma 9.5 [facility] ([facility]) Chloride [Moles/volume] in Serum or Plasma 103 [facility] ([facility]) Protein [Mass/volume] in Serum or Plasma 7.6 [facility] ([facility]) Alkaline phosphatase [Enzymatic activity/volume] in Serum or Plasma 1 27 [facility] ([facility]) Potassium [Moles/volume] in Serum or Plasma 4.4 [facility] ([facility]) Sodium 139 [facility] Aspartate aminotransferase [Enzymatic activity/volume] in Serum or Plasma 21 [facility] ([facility]) Urea nitrogen [Mass/volume] in Serum or Plasma 14 [facility] ([facility]) Glucose 189 70-100 [facility] ([facility] Creatinine For GFR 1.03 [facility] ([facility]) ID Date Data Source [id number] 11/04/2019 02:49:00 PM EST [facility] ([facility] Name Value Range Interpretation Code Description Data Aydee rce(s) Supporting Document(s) Platelets 268 150-450 [facility] ([facility] Red Blood Count 4.95 4.30-6.10 [facility] ([facility] White Blood Count 9.0 4.0-10.0 [facility] ([facility]) Hematocrit 43.0 42.0-52.0 [facility] ([facility]) Hemoglobin 13.7 13.5-17.5 [facility] ([facility]) ID Date Data Source [id number] LEVEL 11/04/2019 12:00:00 AM EST [facility] ([facility]) Name Value Range Interpretation Code Description Data Aydee rce(s) Supporting Document(s) 1.7 1.8-2.4 MAGNESIUM LEVEL [facility]1 ([facility]) ID Date Data Source TOTAL IRON BINDING CAPACIT 11/04/2019 12:00:00 AM EST e[facility]1 ( [facility]) Name Value Range Interpretation Code Description Data Aydee rce(s) Supporting Document(s) 37 65-175 IRON (FE) [facility]1 ([facility]) 400 250-450 TOTAL IRON BINDING CAPACI TY eCW1 ([facility]) 9.3 19.7-50.0 PERCENT SATURATION eCW1 ([facility]) ID Date Data Source [id number] 11/04/2019 12:00:00 AM EST [facility] ([facility]) Name Value Range Interpretation Code Description Data Aydee rce(s) Supporting Document(s) 9 26-388 FERRITIN eCW1 ([facility]) ID Date Data Source CBC 11/04/2019 12:00:00 AM EST [facility]1 ([facility]) Name Value Range Interpretation Code Description Data Aydee rce(s) Supporting Document(s) 9.0 4.0-10.0 WHITE BLOOD COUNT eCW1 ([facility]) 4.95 4.30-6.10 RED BLOOD COUNT eCW1 ([facility]) 13.7 13.5-17.5 HEMOGLOBIN eCW1 ([facility]) 43.0 42.0-52.0 HEMATOCRIT eCW1 ([facility]) 86.9 80.0-96.0 MEAN CORPUSCULAR VOLUME e CW1 ([facility]) 27.7 27.0-33.0 MEAN CORPUSCULAR HEMOGLOB IN eCW1 ([facility]) 268 150-450 PLATELET COUNT, AUTOMATED eCW1 ([facility]) 15.9 11.5-14.5 RED CELL DISTRIBUTION WID TH eCW1 ([facility]) 31.9 32.0-36.5 MEAN CORPUSCULAR HGB CONC eCW1 ([facility]) ID Date Data Source [id number] 11/03/2019 12:10:00 PM EST [facility] ([facility]) Name Value Range Interpretation Code Description Data Aydee rce(s) Supporting Document(s) Hemoglobin A1c/Hemoglobin.total in Blood 10.5 [facility] ([facility]) Glucose [Mass/volume] in Serum or Plasma 258 [facility] ([facility]) ID Date Data Source [id number] 10/01/2019 11:44:00 AM EST [facility] ([facility] Name Value Range Interpretation Code Description Data Aydee rce(s) Supporting Document(s) Magnesium Level 1.46 [facility] ([facility] ID Date Data Source [id number] 10/01/2019 11:44:00 AM EST [facility] ([facility]i [facility] [...] EST Former Smoker completed Former Smoker eCW1 ([facility]) Smoking 10/25/2020 12:00:00 AM EST Former Smoker completed Former Smoker eCW1 ([facility]) Smoking 10/25/2020 12:00:00 AM EST Former Smoker completed Former Smoker eCW1 ([facility]) Smoking 10/25/2020 12:00:00 AM EST Former Smoker completed Former Smoker eCW1 ([facility]) Smoking 10/25/2020 12:00:00 AM EST Former Smoker completed Former Smoker eCW1 ([facility]) Smoking 10/25/2020 12:00:00 AM EST Former Smoker completed Former Smoker eCW1 ([facility]) Smoking 10/25/2020 12:00:00 AM EST Former Smoker completed Former Smoker eCW1 ([facility]) Smoking 10/19/2020 12:00:00 AM EST Former Smoker completed Former Smoker eCW1 ([facility]) Smoking 10/19/2020 12:00:00 AM EST Former Smoker completed Former Smoker eCW1 ([facility]) Smoking 10/19/2020 12:00:00 AM EST Former Smoker completed Former Smoker eCW1 ([facility]) Smoking 10/06/2020 12:00:00 AM EST Former Smoker completed Former Smoker eCW1 ([facility]) Smoking 10/06/2020 12:00:00 AM EST Former Smoker completed Former Smoker eCW1 ([facility]) Smoking 10/06/2020 12:00:00 AM EST Former Smoker completed Former Smoker eCW1 ([facility]) Smoking 10/06/2020 12:00:00 AM EST Former Smoker completed Former Smoker eCW1 ([facility]) Smoking 10/06/2020 12:00:00 AM EST Former Smoker completed Former Smoker eCW1 ([facility]) Smoking 09/21/2020 12:00:00 AM EST Former Smoker completed Former Smoker eCW1 ([facility]) Smoking 08/18/2020 12:00:00 AM EDT Former Smoker completed Former Smoker eCW1 ([facility]) Smoking 08/18/2020 12:00:00 AM EDT Former Smoker completed Former Smoker eCW1 ([facility]) Smoking 08/18/2020 12:00:00 AM EDT Former Smoker completed Former Smoker eCW1 ([facility]) Smoking 08/18/2020 12:00:00 AM EDT Former Smoker completed Former Smoker eCW1 ([facility]) Smoking 08/18/2020 12:00:00 AM EDT Former Smoker completed Former Smoker eCW1 ([facility]) Smoking 08/18/2020 12:00:00 AM EDT Former Smoker completed Former Smoker eCW1 ([facility]) Smoking 08/18/2020 12:00:00 AM EDT Former Smoker completed Former Smoker eCW1 ([facility]) Smoking 08/18/2020 12:00:00 AM EDT Former Smoker completed Former Smoker eCW1 ([facility]) Smoking 08/04/2020 12:00:00 AM EDT Former Smoker completed Former Smoker eCW1 ([facility]) Smoking 08/04/2020 12:00:00 AM EDT Former Smoker completed Former Smoker eCW1 ([facility]) Smoking 08/04/2020 12:00:00 AM EDT Former Smoker completed Former Smoker eCW1 ([facility]) Smoking 08/04/2020 12:00:00 AM EDT Former Smoker completed Former Smoker eCW1 ([facility]) Smoking 08/04/2020 12:00:00 AM EDT Former Smoker completed Former Smoker eCW1 ([facility]) Smoking 07/28/2020 12:00:00 AM EDT Former Smoker completed Former Smoker eCW1 ([facility]) Smoking 07/28/2020 12:00:00 AM EDT Former Smoker completed Former Smoker eCW1 ([facility]) Smoking 07/28/2020 12:00:00 AM EDT Former Smoker completed Former Smoker eCW1 ([facility]) Smoking 07/26/2020 12:00:00 AM EDT Patient is a former smoker completed Patient is a former smoker [facility] ([facility] Smoking 07/21/2020 12:00:00 AM EDT Former Smoker completed Former Smoker eCW1 ([facility]) Smoking 02/06/2020 12:00:00 AM EDT Former Smoker completed Former Smoker eCW1 ([facility]) Smoking 02/06/2020 12:00:00 AM EDT Former Smoker completed Former Smoker eCW1 ([facility]) Vital Signs ID Date Data Source UNK Name Value Range Interpretation Code Description Data Source(s) Body mass index (BMI) [Ratio] 20.4 kg/m2 20.4 k g/m2 [facility] ([facility] Body weight 158.56 [lb_av] 158.56 [lb_av] MED[facility] T ([facility]) stated--in wheelchair Body height 74 [in_i] 74 [in_i] [facility] ([facility]) 6'2" Body temperature 97.3 [degF] 97.3 [degF] [facility] ([facility]) Diastolic blood pressure 84 mm[Hg] 84 mm[Hg] [facility] ([facility] ) Systolic blood pressure 136 mm[Hg] 136 mm[Hg] M [facility] ([facility] ) Diastolic blood pressure 76 mm[Hg] 76 mm[Hg] eCW1 ([facility]) Systolic blood pressure 130 mm[Hg] 130 mm[Hg] e CW1 ([facility]) Body temperature 95 [degF] 95 [degF] eCW1 ([facility]) Respiratory rate 18 /min 18 /min eCW1 ([facility]) Heart rate 64 /min 64 /min eCW1 ([facility]) Body mass index (BMI) [Ratio] 19.23 kg/m2 19.23 kg/m2 eCW1 ([facility]) Body height [in_i] eCW1 ([facility]) Body weight kg eCW1 ([facility]) Body weight 158 [lb_av] 158 [lb_av] eCW1 ([facility]) Diastolic blood pressure 68 mm[Hg] 68 mm[Hg] eCW1 ([facility]) Systolic blood pressure 120 mm[Hg] 120 mm[Hg] e CW1 ([facility]) Body temperature 97.3 [degF] 97.3 [degF] eCW1 ( [facility]) Respiratory rate 18 /min 18 /min eCW1 ([facility]) Heart rate 121 /min 121 /min eCW1 ([facility]) Body mass index (BMI) [Ratio] 19.23 kg/m2 19.23 kg/m2 eCW1 ([facility]) Body height [in_i] eCW1 ([facility]) Body weight 158 [lb_av] 158 [lb_av] eCW1 ([facility]) Diastolic blood pressure 73 mm[Hg] 73 mm[Hg] eCW1 ([facility]) Systolic blood pressure 130 mm[Hg] 130 mm[Hg] e CW1 ([facility]) Body temperature 96.4 [degF] 96.4 [degF] eCW1 ( [facility]) Respiratory rate 16 /min 16 /min eCW1 ([facility]) Heart rate 124 /min 124 /min eCW1 ([facility]) Body mass index (BMI) [Ratio] 19.23 kg/m2 19.23 kg/m2 eCW1 ([facility]) Body height [in_i] eCW1 ([facility]) Body weight kg eCW1 ([facility]) Body weight 158 [lb_av] 158 [lb_av] eCW1 ([facility]) Body temperature 96.4 [degF] 96.4 [degF] eCW1 ( [facility]) Respiratory rate 16 /min 16 /min eCW1 ([facility]) Body mass index (BMI) [Ratio] 19.23 kg/m2 19.23 kg/m2 eCW1 ([facility]) Body height [in_i] eCW1 ([facility]) Body weight kg eCW1 ([facility]) Body weight 158 [lb_av] 158 [lb_av] eCW1 ([facility]) Body surface area Derived from formula 1.95 m2 1.95 m2 [facility] ([facility]) Body weight 69.854 kg 69.854 kg [facility] ([facility]) [place] body weight 190 [lb_av] 190 [lb_av] [facility] T [facility] System) Body mass index (BMI) [Ratio] 19.5 kg/m2 19.5 k g/m2 [facility] ([facility]) Body weight 154.00 [lb_av] 154.00 [lb_av] MEDEN T ([facility]) Body height 74.5 [in_i] 74.5 [in_i] [facility] ([facility]) 6'2.50" Diastolic blood pressure 81 mm[Hg] 81 mm[Hg] [facility] ([facility]) Systolic blood pressure 121 mm[Hg] 121 mm[Hg] [facility] Diastolic blood pressure 84 mm[Hg] 84 mm[Hg] eCW1 ([facility]) Systolic blood pressure 145 mm[Hg] 145 mm[Hg] e CW1 ([facility]) Body temperature 97.2 [degF] 97.2 [degF] eCW1 ( [facility]) Respiratory rate 16 /min 16 /min eCW1 ([facility]) Heart rate 84 /min 84 /min eCW1 ([facility]) Body mass index (BMI) [Ratio] 19.23 kg/m2 19.23 kg/m2 eCW1 ([facility]) Body height [in_i] eCW1 ([facility]) Body weight 158 [lb_av] 158 [lb_av] eCW1 ([facility]ly [facility]) Diastolic blood pressure 81 mm[Hg] 81 mm[Hg] eCW1 ([facility]) Systolic blood pressure 141 mm[Hg] 141 mm[Hg] e CW1 ([facility]) Body temperature 97.2 [degF] 97.2 [degF] eCW1 ( [facility]) Respiratory rate 17 /min 17 /min eCW1 ([facility]) Heart rate 91 /min 91 /min eCW1 ([facility], [facility]) Body mass index (BMI) [Ratio] 19.23 kg/m2 19.23 kg/m2 eCW1 ([facility]) Body height [in_i] eCW1 ([facility]) Body weight kg eCW1 ([facility]) Body weight 158 [lb_av] 158 [lb_av] eCW1 ([facility]ly [facility]) Body mass index (BMI) [Ratio] 21.6 kg/m2 21.6 k g/m2 MED[facility] ([facility]) Body weight 168.50 [lb_av] 168.50 [lb_av] MEDEN T ([facility]) Body height 74 [in_i] 74 [in_i] MED[facility] ([facility]) 6'2" Body temperature 97.6 [degF] 97.6 [degF] MEDENT ([facility]) Diastolic blood pressure 80 mm[Hg] 80 mm[Hg] MEDENT ([facility]) Systolic blood pressure 134 mm[Hg] 134 mm[Hg] M EDENT ([facility]) Diastolic blood pressure 78 mm[Hg] 78 mm[Hg] eCW1 ([facility]) Systolic blood pressure 151 mm[Hg] 151 mm[Hg] e CW1 ([facility]) Body temperature 95.6 [degF] 95.6 [degF] eCW1 ( [facility]) Respiratory rate 18 /min 18 /min eCW1 ([facility]) Heart rate 83 /min 83 /min eCW1 ([facility]) Body mass index (BMI) [Ratio] 19.23 kg/m2 19.23 kg/m2 eCW1 ([facility]) Body height [in_i] eCW1 ([facility]) Body weight kg eCW1 ([facility]) Body weight 158 [lb_av] 158 [lb_av] eCW1 ([facility]) Diastolic blood pressure 68 mm[Hg] 68 mm[Hg] eCW1 ([facility]) Systolic blood pressure 136 mm[Hg] 136 mm[Hg] e CW1 ([facility]) Body temperature 96.4 [degF] 96.4 [degF] eCW1 ( [facility]) Respiratory rate 18 /min 18 /min eCW1 ([facility]) Heart rate 82 /min 82 /min eCW1 ([facility]) Body mass index (BMI) [Ratio] 19.23 kg/m2 19.23 kg/m2 eCW1 ([facility]) Body height [in_i] eCW1 ([facility]) Body weight kg eCW1 ([facility]) Body weight 158 [lb_av] 158 [lb_av] eCW1 ([facility]) Diastolic blood pressure 65 mm[Hg] 65 mm[Hg] eCW1 ([facility]) Systolic blood pressure 120 mm[Hg] 120 mm[Hg] e CW1 ([facility]) Body temperature 97.6 [degF] 97.6 [degF] eCW1 ( [facility]) Respiratory rate 18 /min 18 /min eCW1 ([facility]) Heart rate 89 /min 89 /min eCW1 ([facility]) Body mass index (BMI) [Ratio] 19.30 kg/m2 19.30 kg/m2 eCW1 ([facility]) Body height [in_i] eCW1 ([facility]) Body weight kg eCW1 ([facility]) Body weight 158.6 [lb_av] 158.6 [lb_av] eCW1 ([facility]) Diastolic blood pressure 70 mm[Hg] 70 mm[Hg] MEDENT ([facility]) Systolic blood pressure 112 mm[Hg] 112 mm[Hg] M EDENT ([facility]) Diastolic blood pressure 74 mm[Hg] 74 mm[Hg] MEDENT ([facility]) sitting, regular cuff Systolic blood pressure 112 mm[Hg] 112 mm[Hg] M EDENT ([facility]) sitting, regular cuff Heart rate 80 /min 80 /min MED[facility] ([facility] Regular Body mass index (BMI) [Ratio] 19.5 kg/m2 19.5 k g/m2 MED[facility] ([facility]) Body height 76 [in_i] 76 [in_i] [facility] 6'4" Body weight 160.00 [lb_av] 160.00 [lb_av] MEDEN T ([facility]) Diastolic blood pressure 82 mm[Hg] 82 mm[Hg] eCW1 ([facility]) Systolic blood pressure 152 mm[Hg] 152 mm[Hg] e CW1 ([facility]) Body temperature 97.2 [degF] 97.2 [degF] eCW1 ( [facility]) Respiratory rate 18 /min 18 /min eCW1 ([facility]) Heart rate 93 /min 93 /min eCW1 ([facility]) Body mass index (BMI) [Ratio] 19.30 kg/m2 19.30 kg/m2 eCW1 ([facility]) Body height [in_i] eCW1 ([facility]) Body weight kg eCW1 ([facility]) Body weight 158.6 [lb_av] 158.6 [lb_av] eCW1 ([facility]) Diastolic blood pressure 84 mm[Hg] 84 mm[Hg] eCW1 ([facility]) Systolic blood pressure 130 mm[Hg] 130 mm[Hg] e CW1 ([facility]) Body temperature 96.6 [degF] 96.6 [degF] eCW1 ( [facility]) Respiratory rate 18 /min 18 /min eCW1 ([facility]) Heart rate 104 /min 104 /min eCW1 ([facility]) Body mass index (BMI) [Ratio] 19.30 kg/m2 19.30 kg/m2 W1 ([facility]) Body height [in_i] eCW1 ([facility]) Body weight 158.6 [lb_av] 158.6 [lb_av] eCW1 ([facility]) Diastolic blood pressure 80 mm[Hg] 80 mm[Hg] eCW1 ([facility]) Systolic blood pressure 185 mm[Hg] 185 mm[Hg] e CW1 ([facility]) Body temperature 97.1 [degF] 97.1 [degF] eCW1 ( [facility]) Respiratory rate 16 /min 16 /min eCW1 ([facility]) Heart rate 85 /min 85 /min eCW1 ([facility]) Body mass index (BMI) [Ratio] 20.08 kg/m2 20.08 kg/m2 eCW1 ([facility]) Body height [in_i] eCW1 ([facility]) Body weight 165 [lb_av] 165 [lb_av] eCW1 ([facility]) Oxygen saturation in Arterial blood by Pulse oximetry 100 % 100 % [facility] ([facility] ) Body mass index (BMI) [Ratio] 21.6 kg/m2 21.6 k g/m2 [facility] ([facility]) Body weight 168.38 [lb_av] 168.38 [lb_av] MEDEN T ([facility]) Body height 74 [in_i] 74 [in_i] [facility] ([facility]) 6'2" Heart rate 69 /min 69 /min [facility] ([facility]) Diastolic blood pressure 80 mm[Hg] 80 mm[Hg] [facility] ([facility]) Systolic blood pressure 136 mm[Hg] 136 mm[Hg] M EDENT ([facility]) Body mass index (BMI) [Ratio] 22.0 kg/m2 22.0 k g/m2 [facility] ([facility]) Body weight 171.00 [lb_av] 171.00 [lb_av] MEDEN T ([facility]) Body height 74 [in_i] 74 [in_i] [facility] ([facility]) 6'2" Diastolic blood pressure 72 mm[Hg] 72 mm[Hg] eCW1 ([facility]) Systolic blood pressure 120 mm[Hg] 120 mm[Hg] e CW1 ([facility]) Body temperature 96.4 [degF] 96.4 [degF] eCW1 ( [facility]) Respiratory rate 18 /min 18 /min eCW1 ([facility]) Heart rate 73 /min 73 /min eCW1 ([facility]) Body mass index (BMI) [Ratio] 21.15 kg/m2 21.15 kg/m2 eCW1 ([facility]) Body height [in_us] eCW1 ([facility]) Body weight Measured 173.8 [lb_av] 173.8 [lb_av ] eCW1 ([facility]) Body mass index (BMI) [Ratio] 22.2 kg/m2 22.2 k g/m2 [facility] ([facility]) Body weight 175.00 [lb_av] 175.00 [lb_av] MEDEN T ([facility]) Body height 74.50 [in_i] 74.50 [in_i] [facility] ([facility]) 6'2.50" Diastolic blood pressure 66 mm[Hg] 66 mm[Hg] MEDENT ([facility]) Sitting Systolic blood pressure 122 mm[Hg] 122 mm[Hg] M EDENT ([facility]) Sitting Diastolic blood pressure 68 mm[Hg] 68 mm[Hg] MEDENT ([facility]) Sitting, regular cuff Systolic blood pressure 122 mm[Hg] 122 mm[Hg] M EDENT ([facility]) Sitting, regular cuff Respiratory rate 16 /min 16 /min MED[facility] ( [facility]) Heart rate 84 /min 84 /min [facility] ([facility] Regular Body mass index (BMI) [Ratio] 21.8 kg/m2 21.8 k g/m2 [facility] ([facility]) Body height 76 [in_i] 76 [in_i] [facility] ([facility] 6'4" Body weight 179.00 [lb_av] 179.00 [lb_av] MEDEN T ([facility]) Diastolic blood pressure 84 mm[Hg] 84 mm[Hg] eCW1 ([facility]) Systolic blood pressure 130 mm[Hg] 130 mm[Hg] e CW1 ([facility]) Body temperature 96.4 [degF] 96.4 [degF] eCW1 ( [facility]) Respiratory rate 18 /min 18 /min eCW1 ([facility]) Heart rate 129 /min 129 /min eCW1 ([facility]) Body mass index (BMI) [Ratio] 22.13 kg/m2 22.13 kg/m2 eCW1 ([facility]) Body height [in_us] eCW1 ([facility]) Body weight Measured 181.8 [lb_av] 181.8 [lb_av ] eCW1 ([facility]) Oxygen saturation in Arterial blood by Pulse oximetry 98 % 98 % [facility] ([facility]) Body mass index (BMI) [Ratio] 23.4 kg/m2 23.4 k g/m2 [facility] ([facility]) Body weight 182.38 [lb_av] 182.38 [lb_av] MEDEN T ([facility]) Body height 74 [in_i] 74 [in_i] [facility] ([facility]) 6'2" Heart rate 122 /min 122 /min MED[facility] ([facility]) Diastolic blood pressure 88 mm[Hg] 88 mm[Hg] [facility] ([facility]) Systolic blood pressure 140 mm[Hg] 140 mm[Hg] M EDENT ([facility]) Patient Treatment Plan of Care Planned Activity Planned Date Details Description Data Source (s) Wheelchair - 10/19/2020 12:00:00 AM EST e CW1 ([facility]) Wheelchair - 10/19/2020 12:00:00 AM EST e CW1 ([facility]) Wheelchair - 10/19/2020 12:00:00 AM EST e CW1 ([facility]) sildenafil 100 MG Oral Tablet 03/25/2020 12:00:00 AM EDT eCW1 ([facility]) sildenafil 100 MG Oral Tablet 03/25/2020 12:00:00 AM EDT eCW1 ([facility]) ferrous sulfate 325 MG Oral Tablet 11/06/2019 12:00:00 AM EST eCW1 ([facility])
[2020-11-08] MEDS ORDERED: NS 500 ML IV ONE (23:30)
[2020-11-09] MEDS ORDERED: NS 1,000 ML IV SCH
[2020-11-09 01:00] VITALS: BP 122/58
--- NOTE | 2020-11-09 02:10 | HPEPDOC ---
[facility] Medical History & Physical Date of Admission Nov 08, 2020 Date of Service: Nov 08, 2020 Primary Care Physician: BARBARA PARRY PA-C Attending Physician: Valente Hooker MD History and Physical CHIEF COMPLAINT: AMS HISTORY OF PRESENT ILLNESS: Eran Ring is a 70 YO M with history of type 2 insulin-dependent diabetes mellitus, chronic diastolic congestive heart failure, paroxysmal atrial fibrillation who presents to the ED after having been brought in by EMS for confusion. Per ED staff, on arrival the patient was confused as to why he was brought in. He was thinking he had been injured in a plane crash and was found to be covered in urine and malodorous. The patient's was called and was unable to help clarify whether or not the patient had been taking his medication at home. Of note, the patient was recently hospitalized at [facility] from 08/24/2020 until 09/09/2020 and subsequently sent [facility]. He later went to the [facility] but left AMA as he was unhappy with the staff. He lives at home with his who is also reportedly confused at baseline. Today, the patient tells me that he thinks he was brought to the hospital because his blood sugar was low. When asked whether he did anything to treat his low blood sugar he said nothing. He is unsure of whether he took insulin today but knows that he took his Tresiba last night. In the ED, the patient's blood sugar was found to be 636. He had a normal anion gap and s lightly elevated beta hydroxybutyrate. The patient denies any abdominal pain, nausea, vomiting, diarrhea at this time. PAST MEDICAL HISTORY: Pancreatitis Cardiomyopathy (resolved by 2018) Echo 2010 - LVH, normal LV systolic function, impaired diastolic relaxation, mild aortic insuff, and mild mitral insiff.; Echo 11/2017 - Mild Hypertrophy Septum, EF 55%, AV sclerosis with mild AR. No , Impaired diastolic relaxation CAD HTN GERD Depression - managed by Dr. 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 Mendez) Hyperlipidemia Erectile Dysfunction - Urology in past - not since 03/2013 COPD Former Smoker gout Atrial Fibrillation - on Pradaxa - Per [facility]OCK Squamous cell ca skin - followed by Derm cna pct. chronic neck and back pain - Lumbar/Cervical DDD - Per Dr. Trujillo and Dr. Perez (pain management) Left knee arthritis - followed by Dr.S Caldwell - s/p viscosupplementation Diabetic foot ulcers - s/p 2nd toe partial amputation by Dr. Sherman PAST SURGICAL HISTORY: Hernia repair R hip arthroplasty Resection of polyps in colon Hemorrhoidectomy Resection of squamous cell cancer on his chest Tonsillectomy Myringotomy SOCIAL HISTORY: - Denies the use of illicit drugs; patient reports that he drinks 6 pack of beer in a week. 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 REVIEW OF SYSTEMS: Unable to obtain due to patient's confusion. See HPI. HOME MEDICATIONS: Please see below. PHYSICAL EXAMINATION: VITAL SIGNS: see below GENERAL: Disheveled, malodorous, alert but not oriented, in no apparent distress, conversant in full sentences. HEENT: PERRL, EOMI, Oral mucous membranes are moist without lesions. NECK: The patient has no noted JVD. No adenopathy is appreciated. No thyromegaly CHEST/LUNGS: Decreased breath sounds bilaterally with scattered wheezes appreciated. There is no subcutaneous air appreciated. There is no tenderness to the chest wall. HEART:Regular rate and rhythm. No murmurs, rubs, or gallops are appreciated. D istal pulses are 2+. No carotid bruits appreciated. ABDOMEN: Soft, nontender, and nondistended. Bowel sounds are positive. No organomegaly is appreciated. No masses are appreciated. There are no peritoneal signs. There is no [place] sign. EXTREMITIES: No peripheral edema. Left heel with chronic diabetic ulcer. There is no focal long bone tenderness or deformity. SKIN: The patients skin is warm and dry, without rashes or lesions. PSYCHIATRIC: Patient is not oriented to time or place. He is oriented to person. He has delayed responses to all questions NEUROLOGIC: No obvious focal deficits LABORATORY DATA: See below. 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 There is mild prominence of the peripheral sulci. Cerebral ventricles: There is mild prominence of the central ventricular system. Bones/joints: Fenestrated metallic plate along the left orbital floor with screws at the inferior orbital rim consistent with old injury. Paranasal sinuses: Visualized sinuses are unremarkable. No fluid levels. Mastoid air cells: Visualized mastoid air cells are well aerated. Soft tissues: Unremarkable. IMPRESSION: 1. 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 2. Residua of ORIF of left orbital floor fracture which is similar. CXR: FINDINGS: Lungs: The lungs are unchanged. Pleural space: Minimal pleural scar is noted in the lateral right base. No pneumothorax and no pleural effusion. Heart/Mediastinum: The heart and mediastinum are unchanged. Bones/joints: The osseous structures are unchanged. IMPRESSION: Stable essentially negative chest since 10/21/2020 MICROBIOLOGY: Please see below. ASSESSMENT: This is a 70-year-old male with type 2 diabetes insulin-dependent, chronic diastolic congestive heart failure who presents with acute metabolic encephalopathy found to have hyperglycemia with glucose greater than 600. PLAN: 1. Hyperglycemia: Secondary to noncompliance with home insulin regimen -Glucose found to be 636, trace urine ketones, normal anion gap, ABG within normal limits. No concern for DKA at this point in time -Will start Levemir 30 units now followed by sliding-scale insulin with hypoglycemic protocol -Sodium correction for hyperglycemia: 135 2. Acute metabolic encephalopathy: Per ED staff, the patient does have baseline dementia, but this is not documented in his primary care notes. -The patient has had worsened confusion which prompted several visits to the ED and admissions in the past 6 months. He is not compliant with medications at home. Per PCP notes, it has been recommended that the patient be placed in a long-term as unable to take care of him. -PFS consult to explore placement options -CT head negative for any acute abnormality -UA negative for UTI -Labs within normal limits. BUN elevated, acute uremia may be contributing to confusion -Ammonia normal at 10 3. Chronic kidney disease, stage III: -Creatinine today 1.32, appears his baseline is around 1.0 -Will hold home lisinopril for now -s/p 1L fluid bolus in ED 4. Paroxysmal atrial fibrillation: -Continue metoprolol and Pradaxa 5. Hyperlipidemia: -Continue pravastatin 6. GERD: -Continue Pepcid 7. Mood disorder: -Continue Wellbutrin, Prozac 8. COPD: -Continue home inhalers DVT ppx: On Pradaxa DISPO: Pending clinical improvement, improvement in blood sugar. Patient will need evaluation for placement. Vital Signs Vital Signs Date Time Temp Pulse Resp B/P (MAP) Pulse Ox O2 Delivery O2 Flow Rate FiO2 11/09/20 01:00 97.6 84 20 122/58 (79) 100 Room Air Laboratory Data Labs 24H Laboratory Tests 2 11/08/20 20:18: Immature Granulocyte % (Auto) 0.8, Neutrophils (%) (Auto) 64.9, Lymphocytes (%) (Auto) 25.1, Monocytes (%) (Auto) 7.3H, Eosinophils (%) (Auto) 1.3, Basophils (%) (Auto) 0.6, Neutrophils # (Auto) 7.8, Lymphocytes # (Auto) 3.0, Monocytes # (Auto) 0.9H, Eosinophils # (Auto) 0.2, Basophils # (Auto) 0.1, Nucleated Red Blood Cells % (auto) 0.0, Anion Gap 9, Glomerular Filtration Rate 57.1, Calcium Level 9.4, Total Bilirubin 0.4, Direct Bilirubin 0.2, Aspartate Amino Transf (AST/SGOT) 12, Alanine Aminotransferase (ALT/SGPT) 20, Alkaline Phosphatase 160H, Ammonia 10, Total Creatine Kinase 70, Creatine Kinase MB 4.3H, Creatine Kinase MB Relative Index 6.14H, Troponin I < 0.02, Total Protein 7.2, Albumin 3.4, Albumin/Globulin Ratio 0.9, Lipase 42L, Thyroid Stimulating Hormone (TSH) 10.700H, Free Thyroxine 1.16, Ethyl Alcohol Level < 0.003, B-Hydroxybutyrate 15.65H 11/08/20 20:19: Urine Color YELLOW, Urine Appearance CLEAR, Urine pH 6.0, Urine Specific [place] 1.022, Urine Protein NEGATIVE, Urine Glucose (UA) 3+H, Urine Ketones TRACEH, Urine Blood NEGATIVE, Urine Nitrite NEGATIVE, Urine Bilirubin NEGATIVE, Urine Urobilinogen 0.2, Urine Leukocyte Esterase NEGATIVE, Urine WBC (Auto) 0, Urine RBC (Auto) 1, Urine Hyaline Casts (Auto) 0, Urine Bacteria (Auto) NEGATIVE, Urine Squamous Epithelial Cells 0, Urine Sperm (Auto) 11/08/20 21:49: Coronavirus (COVID-19)(PCR) NEGATIVE, Influenza Type A (RT-PCR) NEGATIVE, Influenza Type B (RT-PCR) NEGATIVE, Respiratory Syncytial Virus (PCR) NEGATIVE 11/08/20 22:40: Blood Gas Bicarbonate Standard 23.2, Arterial Blood pH 7.356, Arterial Blood Partial Pressure CO2 43.7, Arterial Blood Partial Pressure O2 131.0H, Arterial Blood Total CO2 25.3, Arterial Blood HCO3 23.9, Arterial Blood Base Excess -1.5, Arterial Blood Oxygen Saturation 97.6 CBC/BMP Laboratory Tests 11/08/20 20:18 Home Medications Scheduled Allopurinol (Allopurinol) 100 Mg Tab, 50 MG PO DAILY Aspirin (Aspirin EC) 81 Mg Tablet.dr, 81 MG PO DAILY Budesonide/Formoterol (Symbicort 80-4.5 Mcg Inhaler) 60 Puff/Inhaler Aers, 2 PUFF INH BID Bupropion HCl (Bupropion Xl) 300 Mg Tab.er.24h, 300 MG PO DAILY Cholecalciferol (Vitamin D3) (Vitamin D3) 1,000 Unit Tablet, 1,000 UNITS PO DAILY Cyanocobalamin (Vitamin B-12) (Vitamin B-12) 1,000 Mcg Tab, 1,000 MCG PO DAILY Dabigatran Etexilate Mesylate (Pradaxa) 150 Mg Capsule, 150 MG PO BID Esomeprazole Magnesium (Esomeprazole Magnesium) 40 Mg Capsule.dr, 40 MG PO DAILY Famotidine (Famotidine) 40 Mg Tablet, 40 MG PO DAILY Fluoxetine Hcl (Fluoxetine HCl) 20 Mg Cap, 20 MG PO DAILY Folic Acid (Folic Acid) 0.4 Mg Tablet, 400 MCG PO DAILY Insulin Degludec (Tresiba Flextouch U-100) 100 Unit/Ml Inj, 32 UNIT SC DAILY Insulin Human Lispro (Humalog) 1 Units/0.01 Ml Inj, 1 DOSE SC ACHS PER SLIDING SCALE Lisinopril (Lisinopril) 20 Mg Tab, 20 MG PO DAILY Metoprolol Succinate (Metoprolol Succinate) 50 Mg Tab.er.24h, 50 MG PO BID Pravastatin Sodium (Pravachol) 20 Mg Tab, 20 MG PO DAILY Scheduled PRN Glucagon,Human Recombinant (Glucagon Emergency Kit) 1 Mg Vial, 1 MG IM ASDIRECTED PRN for LOW BLOOD SUGAR Miscellaneous Medications [Patient Comment] UNABLE TO VERIFY MEDICATIONS WITH PATIENT - MED LIST OBTAINED FROM EXTERNAL MED HX AND PREVIOUS CLINIC VISIT Allergies Coded Allergies: No Known Allergies (Verified , 10/27/20) A-FIB/CHADSVASC A-FIB History Current/History of A-Fib/PAF?: Yes Current PO Anticoag Therapy: Yes GME ATTESTATION ATTENDING NOTE Family Medicine Attending Note: I was present on site to supervise Daina Frank DO (PGY-3). We discussed the history and exam. I confirmed the raygoza elements during my [id number] encounter with the patient. We conferred on the assessment and plan; I agree with the note as documented. (title inspector) DAINA FRANK MD Nov 09, 2020 02:10 Valente Hooker MD Nov 09, 2020 05:20
[2020-11-09] MEDS ORDERED: LEVEMIR (INSULIN DETEMIR) 1 UNITS/0.01ML SC ONE (02:15)
[2020-11-09] MEDS: NS 1,000 ML IV SCH ×2 (03:31→13:37)
[2020-11-09 04:00] VITALS: BP 106/57
[2020-11-09] MEDS: HumaLOG INSULIN (NovoLOG) PER UNIT SC SCH ×5 (04:02→21:38)
[2020-11-09 06:16] LABS: HEMATOCRIT 21.9 % (42.0-52.0); MEAN CORPUSCULAR HEMOGLOBIN 24.9 pg (27.0-33.0); MEAN CORPUSCULAR VOLUME 77.9 fl (80.0-96.0); PLATELET COUNT, AUTOMATED 251 10^3/uL (150-450); RED BLOOD COUNT 2.81 10^6/uL (4.30-6.10)
[2020-11-09 06:44] LABS: ALBUMIN 2.8 GM/DL (3.2-5.2); ALT/SGPT 16 U/L (12-78); BILIRUBIN,TOTAL 0.2 MG/DL (0.2-1.0); BLOOD UREA NITROGEN 60 MG/DL (7-18); CALCIUM LEVEL 9.3 MG/DL (8.8-10.2); CARBON DIOXIDE LEVEL 27 MEQ/L (21-32); CHLORIDE LEVEL 102 MEQ/L (98-107); CREATININE FOR GFR 1.15 MG/DL (0.70-1.30); GLOMERULAR FILTRATION RATE > 60.0 (>42); GLUCOSE, FASTING 352 MG/DL (70-100); MAGNESIUM LEVEL 1.9 MG/DL (1.8-2.4); POTASSIUM SERUM 3.8 MEQ/L (3.5-5.1); SODIUM LEVEL 134 MEQ/L (136-145)
[2020-11-09 07:12] VITALS: BP 134/74
--- NOTE | 2020-11-09 08:10 | ECGEPIP ---
[facility] - ED Test Date: 2020-11-08 Pat Name: CHACHO LANDRUM Department: Room: [place] [address] Gender: Male [employer] Officer: OMARI : 1950 Requested By: MARISOL Snyder Order Number: [id number] Reading MD: Marin Sarah Measurements Intervals [place] Rate: 70 P: 31 DE: 156 QRS: -27 QRSD: 110 T: 30 QT: 408 QTc: 443 Interpretive Statements SINUS RHYTHM BORDERLINE LEFT AXIS DEVIATION MINIMAL VOLTAGE CRITERIA FOR LVH, CONSIDER NORMAL VARIANT NONSPECIFIC T-WAVE ABNORMALITY SIMILAR TO 10/21/20 Electronically Signed on 11-09-2020 8:10:33 EST by Marin Sarah
[2020-11-09] MEDS: SYMBICORT 80/4.5MCG INHALER 6GM INH SCH ×2 (08:30→20:00)
[2020-11-09] MEDS ORDERED: lisinopriL 20 MG TAB PO SCH (09:00)
[2020-11-09] MEDS: LEVEMIR (INSULIN DETEMIR) 1 UNITS/0.01ML SC SCH (09:00)
[2020-11-09 09:09] LABS: HEMATOCRIT 22.7 % (42.0-52.0); HEMOGLOBIN 7.1 g/dl (13.5-17.5)
[2020-11-09 09:35] LABS: PERCENT SATURATION 18.7 % (19.7-50.0)
[2020-11-09] MEDS: VITAMIN D 1,000 INTERNATIONAL UNITS TABLET PO SCH (09:40)
[2020-11-09] MEDS: FLUoxetine 20 MG CAP PO SCH (09:40)
[2020-11-09] MEDS: DABIGATRAN ETEXILATE 75 MG CAP (PRADAXA) PO SCH ×2 (09:40→21:40)
[2020-11-09] MEDS: METOPROLOL SUCC (TopROL XL) 50MG **XL** TAB PO SCH ×2 (09:40→21:38)
[2020-11-09] MEDS: ASPIRIN 81 MG ENTERIC TAB PO SCH (09:40)
[2020-11-09] MEDS: CYANOCOBALAMIN 500 MCG TAB PO SCH (09:40)
[2020-11-09] MEDS: FAMOTIDINE 20 MG TAB PO SCH (09:41)
[2020-11-09] MEDS: PRAVASTATIN 20 MG TAB PO SCH (09:41)
[2020-11-09] MEDS: buPROPion **XL** TABLET 150MG (WELLBUTRIN XL) PO SCH (09:41)
[2020-11-09] MEDS ORDERED: DEXTROSE 50% 50 ML SYRINGE IV PRN (12:45)
[2020-11-09] MEDS ORDERED: GLUCAGON INJ 1MG VIAL SC PRN (12:45)
[2020-11-09] MEDS ORDERED: GLUCOSE 4GM CHEW TABLET PO PRN (12:45)
[2020-11-09 14:05] VITALS: BP 137/60
--- NOTE | 2020-11-09 14:16 | IPNPDOC ---
Date Seen The patient was seen on 11/09/20. Progress Note SUBJECTIVE: could not recall events yesterday. 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 requests placement. no c/o sob, chest pain, fever, chills, n/v/dysuria. c/o confusion and generalized weakness.hgb 7 today s/p 3liters ivfluids from yesterday. denies brbpr, melena, black tarry stools, hematemesis, coffee ground emesis. OBJECTIVE PHYSICAL EXAMINATION: VITAL SIGNS: Please see below. GENERAL:no distress no pallor HEENT: moist mm no jvd face symmetric CARDIOVASCULAR: S1S2 RRR RESPIRATORY: CTAB no w/r/r ABDOMINAL: +bs soft nt nd EXTREMITIES:no c/c/e right 2nd toe partial toe amputation LABORATORY DATA, IMAGING STUDIES, MICROBIOLOGY: Please see below. 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 There is mild prominence of the peripheral sulci. Cerebral ventricles: There is mild prominence of the central ventricular system. Bones/joints: Fenestrated metallic plate along the left orbital floor with screws at the inferior orbital rim consistent with old injury. Paranasal sinuses: Visualized sinuses are unremarkable. No fluid levels. Mastoid air cells: Visualized mastoid air cells are well aerated. Soft tissues: Unremarkable. IMPRESSION: 1. 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 2. Residua of ORIF of left orbital floor fracture which is similar. CXR: FINDINGS: Lungs: The lungs are unchanged. Pleural space: Minimal pleural scar is noted in the lateral right base. No pneumothorax and no pleural effusion. Heart/Mediastinum: The heart and mediastinum are unchanged. Bones/joints: The osseous structures are unchanged. IMPRESSION: Stable essentially negative chest since 10/21/2020 ASSESSMENT AND PLAN: 70y/o male who signed himself out of rehab lives at home w w multiple sclerosis who cannot care for him anymore was brought in on 11/08/20 with confusion and found to have uncontrolled type 2 DM with glucose>500. He has PMH significant for h/o ETOH abuse, ETOH pancreatitis, LV diastolic CHF EF 55%CAD,HTN ,GERD ,Dep ression - managed by Dr. 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 Mendez) ,Hyperlipidemia ,Erectile Dysfunction - Urology in past - not since 03/2013 ,COPD ,Former Smoker ,gout ,Atrial Fibrillation - on Pradaxa - Per [facility] Squamous cell ca skin followed by Derm incident analyst. ,chronic neck and back pain - Lumbar/Cervical DDD - Per Dr. Trujillo and Dr. Perez (pain management) ,Left knee arthritis - followed by Dr.S Caldwell - s/p viscosupplementation , Diabetic foot ulcers - s/p 2nd toe partial amputation by Dr. Abbott . Acute Metabolic Encephalopathy -due to hyperglycemia Hyperglycemia/ Brittle DM2 -resolved. -on levemir insulin, consistent carbs diet, hypoglycemic protocol, iss per [facility] protocol w fingersticks Hemodilutional Anemia -recieved 3liters ivfluids overnight. -no acute anemic symptoms -denies GI bleed -refuses to have rbc transfusion -daily hemoglobin monitoring. -check iron studies, stool for blood LE weakness wheelchair-bound for one month at home -pt/ot/ARU screen Chronic kidney disease, stage III: -at baseline Paroxysmal atrial fibrillation: -Continue metoprolol and Pradaxa Hyperlipidemia: -Continue pravastatin GERD: -Continue Pepcid Mood disorder: -Continue Wellbutrin, Prozac COPD -compensated. -prn nebs DISPOSITION: cannot care for him at home. PFS consulted. PT/OT/ARU screen. VS, I&O, 24H, Fishbone Vital Signs/I&O Vital Signs Date Time Temp Pulse Resp B/P (MAP) Pulse Ox O2 Delivery O2 Flow Rate FiO2 11/09/20 09:40 88 134/74 11/09/20 07:12 97.4 20 98 Room Air I&O- Last 24 Hours up to 6 AM 11/09/20 06:00 Intake Total 1000 ml Output Total 0 ml Balance 1000 ml Laboratory Data 24H LABS Laboratory Tests 2 11/08/20 20:18: Immature Granulocyte % (Auto) 0.8, Neutrophils (%) (Auto) 64.9, Lymphocytes (%) (Auto) 25.1, Monocytes (%) (Auto) 7.3H, Eosinophils (%) (Auto) 1.3, Basophils (%) (Auto) 0.6, Neutrophils # (Auto) 7.8, Lymphocytes # (Auto) 3.0, Monocytes # (Auto) 0.9H, Eosinophils # (Auto) 0.2, Basophils # (Auto) 0.1, Nucleated Red Blood Cells % (auto) 0.0, Anion Gap 9, Glomerular Filtration Rate 57.1, Calcium Level 9.4, Total Bilirubin 0.4, Direct Bilirubin 0.2, Aspartate Amino Transf (AST/SGOT) 12, Alanine Aminotransferase (ALT/SGPT) 20, Alkaline Phosphatase 160H, Ammonia 10, Total Creatine Kinase 70, Creatine Kinase MB 4.3H, Creatine Kinase MB Relative Index 6.14H, Troponin I < 0.02, Total Protein 7.2, Albumin 3.4, Albumin/Globulin Ratio 0.9, Lipase 42L, Thyroid Stimulating Hormone (TSH) 10.700H, Free Thyroxine 1.16, Ethyl Alcohol Level < 0.003, B-Hydroxybutyrate 15.65H 11/08/20 20:19: Urine Color YELLOW, Urine Appearance CLEAR, Urine pH 6.0, Urine Specific [place] 1.022, Urine Protein NEGATIVE, Urine Glucose (UA) 3+H, Urine Ketones TRACEH, Urine Blood NEGATIVE, Urine Nitrite NEGATIVE, Urine Bilirubin NEGATIVE, Urine Urobilinogen 0.2, Urine Leukocyte Esterase NEGATIVE, Urine WBC (Auto) 0, Urine RBC (Auto) 1, Urine Hyaline Casts (Auto) 0, Urine Bacteria (Auto) NEGATIVE, Urine Squamous Epithelial Cells 0, Urine Sperm (Auto) 11/08/20 21:49: Coronavirus (COVID-19)(PCR) NEGATIVE, Influenza Type A (RT-PCR) NEGATIVE, Influenza Type B (RT-PCR) NEGATIVE, Respiratory Syncytial Virus (PCR) NEGATIVE 11/08/20 22:40: Blood Gas Bicarbonate Standard 23.2, Arterial Blood pH 7.356, Arterial Blood Partial Pressure CO2 43.7, Arterial Blood Partial Pressure O2 131.0H, Arterial Blood Total CO2 25.3, Arterial Blood HCO3 23.9, Arterial Blood Base Excess -1.5, Arterial Blood Oxygen Saturation 97.6 11/09/20 01:59: Bedside Glucose (Misc Panel) 547*H 11/09/20 03:34: Bedside Glucose (Misc Panel) 504*H 11/09/20 05:56: Nucleated Red Blood Cells % (auto) 0.0, Anion Gap 5L, Glomerular Filtration Rate > 60.0, Calcium Level 9.3, Magnesium Level 1.9, Total Bilirubin 0.2, Aspartate Amino Transf (AST/SGOT) 8, Alanine Aminotransferase (ALT/SGPT) 16, Alkaline Phos phatase 113, Total Protein 6.0L, Albumin 2.8L, Albumin/Globulin Ratio 0.9 11/09/20 08:51: Bedside Glucose (Misc Panel) 138H 11/09/20 08:54: Iron Level 57L, Total Iron Binding Capacity 305, Transferrin % Saturation 18.7L, Ferritin 34 11/09/20 11:31: Bedside Glucose (Misc Panel) 113H CBC/BMP Laboratory Tests 11/08/20 20:18 11/09/20 05:56 11/09/20 08:54 VINCENZO IRENE MD Nov 09, 2020 14:10
[2020-11-09 21:23] LABS: HEMATOCRIT 20.2 % (42.0-52.0); HEMOGLOBIN 6.4 g/dl (13.5-17.5)
[2020-11-09 22:00] VITALS: BP 124/60
[2020-11-10] VITALS (12 sets, daily range): BP systolic 108–154; BP diastolic 57–80
[2020-11-10 06:34] LABS: HEMATOCRIT 22.4 % (42.0-52.0); HEMOGLOBIN 7.2 g/dl (13.5-17.5); MEAN CORPUSCULAR HEMOGLOBIN 26.3 pg (27.0-33.0); MEAN CORPUSCULAR HGB CONC 32.1 g/dl (32.0-36.5); MEAN CORPUSCULAR VOLUME 81.8 fl (80.0-96.0); PLATELET COUNT, AUTOMATED 148 10^3/uL (150-450); RED BLOOD COUNT 2.74 10^6/uL (4.30-6.10); WHITE BLOOD COUNT 4.2 10^3/uL (4.0-10.0)
[2020-11-10 07:05] LABS: ALBUMIN 2.4 GM/DL (3.2-5.2); ALT/SGPT 16 U/L (12-78); BILIRUBIN,TOTAL 0.4 MG/DL (0.2-1.0); BLOOD UREA NITROGEN 37 MG/DL (7-18); CALCIUM LEVEL 8.6 MG/DL (8.8-10.2); CARBON DIOXIDE LEVEL 24 MEQ/L (21-32); CHLORIDE LEVEL 106 MEQ/L (98-107); CREATININE FOR GFR 0.94 MG/DL (0.70-1.30); GLOMERULAR FILTRATION RATE > 60.0 (>42); GLUCOSE, FASTING 359 MG/DL (70-100); POTASSIUM SERUM 3.7 MEQ/L (3.5-5.1); SODIUM LEVEL 136 MEQ/L (136-145); TOTAL PROTEIN 5.7 GM/DL (6.4-8.2)
[2020-11-10] MEDS: SYMBICORT 80/4.5MCG INHALER 6GM INH SCH ×2 (07:54→19:48)
[2020-11-10] MEDS: LEVEMIR (INSULIN DETEMIR) 1 UNITS/0.01ML SC SCH ×2 (08:04→20:31)
[2020-11-10] MEDS: HumaLOG INSULIN (NovoLOG) PER UNIT SC SCH ×4 (08:04→19:41)
[2020-11-10] MEDS: FAMOTIDINE 20 MG TAB PO SCH (08:05)
[2020-11-10] MEDS: DABIGATRAN ETEXILATE 75 MG CAP (PRADAXA) PO SCH ×2 (08:05→20:29)
[2020-11-10] MEDS: buPROPion **XL** TABLET 150MG (WELLBUTRIN XL) PO SCH (08:05)
[2020-11-10] MEDS: ASPIRIN 81 MG ENTERIC TAB PO SCH (08:05)
[2020-11-10] MEDS: CYANOCOBALAMIN 500 MCG TAB PO SCH (08:06)
[2020-11-10] MEDS: FLUoxetine 20 MG CAP PO SCH (08:06)
[2020-11-10] MEDS: VITAMIN D 1,000 INTERNATIONAL UNITS TABLET PO SCH (08:06)
[2020-11-10] MEDS: PRAVASTATIN 20 MG TAB PO SCH (08:06)
[2020-11-10] MEDS: METOPROLOL SUCC (TopROL XL) 50MG **XL** TAB PO SCH ×2 (08:07→20:29)
[2020-11-10] MEDS ORDERED: SENOKOT S TAB PO PRN (11:30)
[2020-11-10] MEDS ORDERED: MOM 30ML SUSPENSION UDC PO PRN (11:30)
[2020-11-10] MEDS ORDERED: MIRALAX *UNIT DOSE* 17GM PACKET PO PRN (11:30)
--- NOTE | 2020-11-10 11:30 | IPNPDOC ---
Date Seen The patient was seen on 11/10/20. Progress Note SUBJECTIVE: Patient initially refused RBC transfusion yesterday, but agreed to have RBC transfusion due to hemoglobin dropping down to 6. He denies brbpr, melena, black tarry stools, hematemesis,coffee ground emesis. OBJECTIVE PHYSICAL EXAMINATION: VITAL SIGNS: Please see below. GENERAL:no distress pallor . Speaks in full sentences. Awake, alert, oriented to person, place and time HEENT: moist mm no jvd face symmetric CARDIOVASCULAR: S1S2 RRR RESPIRATORY: CTAB no w/r/r ABDOMINAL: +bs soft nt nd EXTREMITIES:no c/c/e right 2nd toe partial toe amputation LABORATORY DATA, IMAGING STUDIES, MICROBIOLOGY: Please see below. 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 There is mild prominence of the peripheral sulci. Cerebral ventricles: There is mild prominence of the central ventricular system. Bones/joints: Fenestrated metallic plate along the left orbital floor with screws at the inferior orbital rim consistent with old injury. Paranasal sinuses: Visualized sinuses are unremarkable. No fluid levels. Mastoid air cells: Visualized mastoid air cells are well aerated. Soft tissues: Unremarkable. IMPRESSION: 1. 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 2. Residua of ORIF of left orbital floor fracture which is similar. CXR: FINDINGS: Lungs: The lungs are unchanged. Pleural space: Minimal pleural scar is noted in the lateral right base. No pneumothorax and no pleural effusion. Heart/Mediastinum: The heart and mediastinum are unchanged. Bones/joints: The osseous structures are unchanged. IMPRESSION: Stable essentially negative chest since 10/21/2020 ASSESSMENT AND PLAN: 70y/o male who signed himself out of rehab lives at home w w multiple sclerosis who cannot care for him anymore was brought in on 11/08/20 with confusion and found to have uncontrolled type 2 DM with glucose>500. He has PMH significant for h/o ETOH abuse, ETOH pancreatitis, LV diastolic CHF EF 55%CAD,HTN ,GERD ,Depression - managed by Dr. 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 Mendez) ,Hyperlipidemia ,Erectile Dysfunction - Urology in past - not since 03/2013 ,COPD ,Former Smoker ,gout ,Atrial Fibrillation - on Pradaxa - Per [facility] Squamous cell ca skin followed by Derm shirt maker. ,chronic neck and back pain - Lumbar/Cervical DDD - Per Dr. Trujillo and Dr. Perez (pain management) ,Left knee arthritis - followed by Dr.S Caldwell - s/p viscosupplementation , Diabetic foot ulcers - s/p 2nd toe partial amputation by Dr. Abbott . Acute Metabolic Encephalopathy, resolved -due to hyperglycemia Hyperglycemia/ Brittle DM2 -Uncontrolled -Increased levemir insulin to 30 units daily - consistent carbs diet, hypoglycemic protocol, iss per [facility] protocol w fingersticks Hemodilutional Anemia -receivedved 3liters ivfluids 11/08/20 -no acute anemic symptoms -denies GI bleed -refused to have rbc transfusion 11/09/20 -Agreed to RBC transfusion 11/10/2020 -Status post units RBCs -Awaiting stool for blood -Possible GI bleed on chronic Pradaxa -Discontinued famotidine started on Protonix 40 twice a day LE weakness wheelchair-bound for one month at home -1 person assist -pt/ot/ARU screen - is unable to care for patient at home -[place] consulted for possible placement Chronic kidney disease, stage III: -at baseline Paroxysmal atrial fibrillation: -Continue metoprolol and Pradaxa -If heme-positive stool and persistent drop in hemoglobin. We'll discontinue Pradaxa Hyperlipidemia: -Continue pravastatin GERD: -Continue Protonix 40 twice a day Mood disorder: -Continue Wellbutrin, Prozac COPD -compensated. -prn nebs DISPOSITION: cannot care for him at home. PFS consulted. PT/OT/ARU screen. VS, I&O, 24H, Fishbone Vital Signs/I&O Vital Signs Date Time Temp Pulse Resp B/P (MAP) Pulse Ox O2 Delivery O2 Flow Rate FiO2 11/10/20 08:07 63 154/74 11/10/20 07:25 97.7 18 95 Room Air I&O- Last 24 Hours up to 6 AM 11/10/20 06:00 Intake Total 1642 ml Output Total 275 ml Balance 1367 ml Laboratory Data 24H LABS Laboratory Tests 2 11/09/20 11:31: Bedside Glucose (Misc Panel) 113H 11/09/20 16:38: Bedside Glucose (Misc Panel) 306H 11/09/20 19:59: Bedside Glucose (Misc Panel) 304H 11/10/20 06:00: Nucleated Red Blood Cells % (auto) 0.0, Anion Gap 6L, Glomerular Filtration Rate > 60.0, Calcium Level 8.6L, Total Bilirubin 0.4#, Aspartate Amino Transf (AST/SGOT) 12, Alanine Aminotransferase (ALT/SGPT) 16, Alkaline Phosphatase 99, Total Protein 5.7L, Albumin 2.4L, Albumin/Globulin Ratio 0.7 CBC/BMP Laboratory Tests 11/09/20 21:12 11/10/20 06:00 VINCENZO IRENE MD Nov 10, 2020 11:30
--- NOTE | 2020-11-10 13:04 | DS.PDOC ---
Discharge Summary General Date of Admission Nov 08, 2020 at 22:26 Date of Discharge 11/10/20 SIGNED OUT AGAINST MEDICAL ADVICE Discharge Summary DISCHARGE DIAGNOSES: Acute metabolic Encephalopathy Hyperglycemia Uncontrolled DM2 Hemodilutional Anemia Possible GI bleed refused evaluation s/p 2 units RBC transfusion h/o ETOH abuse, h/o ETOH pancreatitis, LV diastolic CHF EF 55% CAD, HTN , GERD , Depression /Anxiety DM neuropathy and nephropathy Kidney Disease CKD II, Diabetic Nephropathy Hyperlipidemia , Erectile Dysfunction COPD , Former Smoker , gout , Atrial Fibrillation - on Pradaxa - Squamous cell ca skin chronic neck and back pain - Lumbar/Cervical DDD DISCHARGE MEDICATIONS: SEE BELOW DISCHARGE INSTRUCTIONS: Immediate fu w pcp within 5 days to monitor for possible GI bleed. Repeat CBC to check for ongoing GI bleed. PCP to decide to stop ASA and pradaxa and refer for EGD / colonoscopy if heme positive or overt GI bleed. HOSPITAL COURSE: 70y/o male who signed himself out of rehab lives at home w w multiple sclerosis who cannot care for him anymore was brought in on 11/08/20 with confusion and found to have uncontrolled type 2 DM with glucose>500. He has PMH significant for h/o ETOH abuse, ETOH pancreatitis, LV diastolic CHF EF 55%CAD,HTN ,GERD ,Depression - managed by Dr. 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 Mendez) ,Hyperlipidemia ,Erectile Dysfunction - Urology in past - not since 03/2013 ,COPD ,Former Smoker ,gout ,Atrial Fibrillation - on Pradaxa - Per [facility] Squamous cell ca skin followed by Derm lion trainer. ,chronic neck and back pain - Lumbar/Cervical DDD - Per Dr. Trujillo and Dr. Perez (pain management) ,Left knee arthritis - followed by Dr.S Caldwell - s/p viscosupplementation , Diabetic foot ulcers - s/p 2nd toe partial amputation by Dr. Abbott . Acute Metabolic Encephalopathy, resolved -due to hyperglycemia Hyperglycemia/ Brittle DM2 -Uncontrolled -Increased levemir insulin to 30 units daily - consistent carbs diet, hypoglycemic protocol, iss per [facility] protocol w fingersticks Hemodilutional Anemia -receivedved 3liters ivfluids 11/08/20 -no acute anemic symptoms -denies GI bleed -refused to have rbc transfusion 11/09/20 -Agreed to RBC transfusion 11/10/2020 -Status post units RBCs -Awaiting stool for blood -Possible GI bleed on chronic Pradaxa -Discontinued famotidine started on Protonix 40 twice a day LE weakness wheelchair-bound for one month at home -1 person assist -pt/ot/ARU screen - is unable to care for patient at home -[place] consulted for possible placement Chronic kidney disease, stage III: -at baseline Paroxysmal atrial fibrillation: -Continue metoprolol and Pradaxa -If heme-positive stool and persistent drop in hemoglobin. We'll discontinue Pradaxa Hyperlipidemia: -Continue pravastatin GERD: -Continue Protonix 40 twice a day Mood disorder: -Continue Wellbutrin, Prozac COPD -compensated. -prn nebs DISPOSITION: signed out AMA. cannot care for him, and he has not cleared physical therapy. DISCHARGE PHYSICAL EXAMINATION: VITAL SIGNS: Please see below. GENERAL:no distress pallor . Speaks in full sentences. Awake, alert, oriented to person, place and time HEENT: moist mm no jvd face symmetric CARDIOVASCULAR: S1S2 RRR RESPIRATORY: CTAB no w/r/r ABDOMINAL: +bs soft nt nd EXTREMITIES:no c/c/e right 2nd toe partial toe amputation DISCHARGE LABORATORY DATA, IMAGING STUDIES, MICROBIOLOGY: Please see below. 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 There is mild prominence of the peripheral sulci. Cerebral ventricles: There is mild prominence of the central ventricular system. Bones/joints: Fenestrated metallic plate along the left orbital floor with screws at the inferior orbital rim consistent with old injury. Paranasal sinuses: Visualized sinuses are unremarkable. No fluid levels. Mastoid air cells: Visualized mastoid air cells are well aerated. Soft tissues: Unremarkable. IMPRESSION: 1. 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 2. Residua of ORIF of left orbital floor fracture which is similar. CXR: FINDINGS: Lungs: The lungs are unchanged. Pleural space: Minimal pleural scar is noted in the lateral right base. No pneumothorax and no pleural effusion. Heart/Mediastinum: The heart and mediastinum are unchanged. Bones/joints: The osseous structures are unchanged. IMPRESSION: Stable essentially negative chest since 10/21/2020 TIME SPENT ON DISCHARGE; 30 MINUTES Vital Signs/I&Os Vital Signs Date Time Temp Pulse Resp B/P (MAP) Pulse Ox O2 Delivery O2 Flow Rate FiO2 11/10/20 11:00 97.2 81 18 133/80 98 Room Air I&O- Last 24 Hours up to 6 AM 11/10/20 06:00 Intake Total 1642 ml Output Total 275 ml Balance 1367 ml Laboratory Data Labs 24H Laboratory Tests 2 11/09/20 16:38: Bedside Glucose (Misc Panel) 306H 11/09/20 19:59: Bedside Glucose (Misc Panel) 304H 11/10/20 06:00: Nucleated Red Blood Cells % (auto) 0.0, Anion Gap 6L, Glomerular Filtration Rate > 60.0, Calcium Level 8.6L, Total Bilirubin 0.4#, Aspartate Amino Transf (AST/SGOT) 12, Alanine Aminotransferase (ALT/SGPT) 16, Alkaline Phosphatase 99, Total Protein 5.7L, Albumin 2.4L, Albumin/Globulin Ratio 0.7 11/10/20 11:31: Bedside Glucose (Misc Panel) 409H CBC/BMP Laboratory Tests 11/09/20 21:12 11/10/20 06:00 FSBS Laboratory Tests Test 11/09/20 16:38 11/09/20 19:59 11/10/20 11:31 Range/Units Bedside Glucose (Misc Panel) 306 304 409 83-110 MG/DL Discharge Medications Scheduled Allopurinol (Allopurinol) 100 Mg Tab, 50 MG PO DAILY, (Reported) Aspirin (Aspirin EC) 81 Mg Tablet.dr, 81 MG PO DAILY, (Reported) Budesonide/Formoterol (Symbicort 80-4.5 Mcg Inhaler) 60 Puff/Inhaler Aers, 2 PUFF INH BID, (Reported) Bupropion HCl (Bupropion Xl) 300 Mg Tab.er.24h, 300 MG PO DAILY, (Reported) Cholecalciferol (Vitamin D3) (Vitamin D3) 1,000 Unit Tablet, 1,000 UNITS PO DAILY, (Reported) Cyanocobalamin (Vitamin B-12) (Vitamin B-12) 1,000 Mcg Tab, 1,000 MCG PO DAILY, (Reported) Dabigatran Etexilate Mesylate (Pradaxa) 150 Mg Capsule, 150 MG PO BID, (Reported) Esomeprazole Magnesium (Esomeprazole Magnesium) 40 Mg Capsule.dr, 40 MG PO DAILY, (Reported) Famotidine (Famotidine) 40 Mg Tablet, 40 MG PO DAILY, (Reported) Fluoxetine Hcl (Fluoxetine HCl) 20 Mg Cap, 20 MG PO DAILY, (Reported) Folic Acid (Folic Acid) 0.4 Mg Tablet, 400 MCG PO DAILY, (Reported) Insulin Degludec (Tresiba Flextouch U-100) 100 Unit/Ml Inj, 32 UNIT SC DAILY, (Reported) Insulin Human Lispro (Humalog) 1 Units/0.01 Ml Inj, 1 DOSE SC ACHS, (Reported) PER SLIDING SCALE Lisinopril (Lisinopril) 20 Mg Tab, 20 MG PO DAILY, (Reported) Metoprolol Succinate (Metoprolol Succinate) 50 Mg Tab.er.24h, 50 MG PO BID, (Reported) Pravastatin Sodium (Pravachol) 20 Mg Tab, 20 MG PO DAILY, (Reported) Scheduled PRN Glucagon,Human Recombinant (Glucagon Emergency Kit) 1 Mg Vial, 1 MG IM ASDIRECTED PRN for LOW BLOOD SUGAR, (Reported) Miscellaneous Medications [Patient Comment] , (Reported) UNABLE TO VERIFY MEDICATIONS WITH PATIENT - MED LIST OBTAINED FROM EXTERNAL MED HX AND PREVIOUS CLINIC VISIT Allergies Coded Allergies: No Known Allergies (Verified , 10/27/20) VINCENZO IRENE MD Nov 10, 2020 13:03
[2020-11-10 14:00] LABS: HEMATOCRIT 27.4 % (42.0-52.0); HEMOGLOBIN 8.9 g/dl (13.5-17.5)
[2020-11-10] MEDS: PANTOPRAZOLE 40MG TAB (PROTONIX) PO SCH (20:29)
[2020-11-10] MEDS: RAMELTEON 8 MG TAB (ROZEREM) PO PRN (23:10)
[2020-11-11 06:00] VITALS: BP 159/81
[2020-11-11 06:19] LABS: HEMATOCRIT 28.7 % (42.0-52.0); HEMOGLOBIN 9.3 g/dl (13.5-17.5); MEAN CORPUSCULAR HEMOGLOBIN 26.4 pg (27.0-33.0); MEAN CORPUSCULAR HGB CONC 32.4 g/dl (32.0-36.5); MEAN CORPUSCULAR VOLUME 81.5 fl (80.0-96.0); PLATELET COUNT, AUTOMATED 193 10^3/uL (150-450); RED BLOOD COUNT 3.52 10^6/uL (4.30-6.10); WHITE BLOOD COUNT 6.4 10^3/uL (4.0-10.0)
[2020-11-11 06:56] LABS: ALBUMIN 2.8 GM/DL (3.2-5.2); ALT/SGPT 20 U/L (12-78); BILIRUBIN,TOTAL 0.2 MG/DL (0.2-1.0); BLOOD UREA NITROGEN 23 MG/DL (7-18); CALCIUM LEVEL 9.3 MG/DL (8.8-10.2); CARBON DIOXIDE LEVEL 27 MEQ/L (21-32); CHLORIDE LEVEL 106 MEQ/L (98-107); CREATININE FOR GFR 0.76 MG/DL (0.70-1.30); GLOMERULAR FILTRATION RATE > 60.0 (>42); GLUCOSE, FASTING 54 MG/DL (70-100); POTASSIUM SERUM 3.7 MEQ/L (3.5-5.1); SODIUM LEVEL 142 MEQ/L (136-145); TOTAL PROTEIN 6.3 GM/DL (6.4-8.2)
[2020-11-11] MEDS: HumaLOG INSULIN (NovoLOG) PER UNIT SC SCH ×4 (07:30→20:44)
[2020-11-11] MEDS: SYMBICORT 80/4.5MCG INHALER 6GM INH SCH ×2 (07:38→20:00)
[2020-11-11 07:50] VITALS: BP 129/73
[2020-11-11] MEDS: ASPIRIN 81 MG ENTERIC TAB PO SCH (07:55)
[2020-11-11] MEDS: PANTOPRAZOLE 40MG TAB (PROTONIX) PO SCH ×2 (07:55→20:20)
[2020-11-11] MEDS: DABIGATRAN ETEXILATE 75 MG CAP (PRADAXA) PO SCH ×2 (07:55→20:20)
[2020-11-11] MEDS: VITAMIN D 1,000 INTERNATIONAL UNITS TABLET PO SCH (07:55)
[2020-11-11] MEDS: buPROPion **XL** TABLET 150MG (WELLBUTRIN XL) PO SCH (07:55)
[2020-11-11] MEDS: FLUoxetine 20 MG CAP PO SCH (07:56)
[2020-11-11] MEDS: PRAVASTATIN 20 MG TAB PO SCH (07:56)
[2020-11-11] MEDS: METOPROLOL SUCC (TopROL XL) 50MG **XL** TAB PO SCH ×2 (07:56→20:21)
[2020-11-11] MEDS: CYANOCOBALAMIN 500 MCG TAB PO SCH (07:56)
[2020-11-11] MEDS ORDERED: DEXTROSE 50% 50 ML SYRINGE IV STA (08:49)
[2020-11-11] MEDS: LEVEMIR (INSULIN DETEMIR) 1 UNITS/0.01ML SC SCH (08:49)
--- NOTE | 2020-11-11 11:25 | IPNPDOC ---
Date Seen The patient was seen on 11/11/20. Progress Note SUBJECTIVE: denies active gi bleed. no hematemesis, coffee ground emesis, brbpr. no c/o sob, cp. glucose 54 today but denies diaphoresis, confusion, palpitations, lightheadedness, or headache. after breakfast, pt's glucose >200. OBJECTIVE PHYSICAL EXAMINATION: VITAL SIGNS: Please see below. GENERAL:aaox [address] no distress disheveled appearing HEENT: no jvd or cervical LAD no stridor or carotid bruit CARDIOVASCULAR: S1S2 RRR RESPIRATORY: CTAB no w/r/r ABDOMINAL: +bs soft nt nd EXTREMITIES:no c/c/e right 2nd toe partial toe amputation LABORATORY DATA, IMAGING STUDIES, MICROBIOLOGY: Please see below. 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 There is mild prominence of the peripheral sulci. Cerebral ventricles: There is mild prominence of the central ventricular system. Bones/joints: Fenestrated metallic plate along the left orbital floor with screws at the inferior orbital rim consistent with old injury. Paranasal sinuses: Visualized sinuses are unremarkable. No fluid levels. Mastoid air cells: Visualized mastoid air cells are well aerated. Soft tissues: Unremarkable. IMPRESSION: 1. 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 2. Residua of ORIF of left orbital floor fracture which is similar. CXR: FINDINGS: Lungs: The lungs are unchanged. Pleural space: Minimal pleural scar is noted in the lateral right base. No pneumothorax and no pleural effusion. Heart/Mediastinum: The heart and mediastinum are unchanged. Bones/joints: The osseous structures are unchanged. IMPRESSION: Stable essentially negative chest since 10/21/2020 ASSESSMENT AND PLAN: 70y/o male who signed himself out of rehab lives at home w w multiple sclerosis who cannot care for him anymore was brought in on 11/08/20 with confusion and found to have uncontrolled type 2 DM with glucose>500. He has PMH significant for h/o ETOH abuse, ETOH pancreatitis, LV diastolic CHF EF 55%CAD,HTN ,GERD ,Depression - managed by Dr. 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 Mendez) ,Hyperlipidemia ,Erectile Dysfunction - Urology in past - not since 03/2013 ,COPD ,Former Smoker ,gout ,Atrial Fibrillation - on Pradaxa - Per [facility] Squamous cell ca skin followed by Derm home inspector. ,chronic neck and back pain - Lumbar/Cervical DDD - Per Dr. Trujillo and Dr. Perez (pain management) ,Left knee arthritis - followed by Dr.S Caldwell - s/p viscosupplementation , Diabetic foot ulcers - s/p 2nd toe partial amputation by Dr. Abbott . Acute Metabolic Encephalopathy, resolved Hyperglycemia/ Brittle DM2 symptomatic anemia s/p 3urbc transfusion Deconditioning h/o ETOH abuse Chronic kidney disease, stage III: Paroxysmal atrial fibrillation: Hyperlipidemia: GERD: Mood disorder: COPD PLAN: decrease levemir due to hypoglycemia. ARU screen. PFS consulted for potential placement as is unable to care for him. medically stable for dc anytime. awaiting stool hemeoccult result to decide if pt's pradaxa have to be held due to anemia requiring rbc transfusion. VS, I&O, 24H, Rubens Vital Signs/I&O Vital Signs Date Time Temp Pulse Resp B/P (MAP) Pulse Ox O2 Delivery O2 Flow Rate FiO2 11/11/20 07:56 86 129/73 11/11/20 06:00 98.4 18 99 Room Air I&O- Last 24 Hours up to 6 AM 11/11/20 06:00 Intake Total 1990 ml Output Total 750 ml Balance 1240 ml Laboratory Data 24H LABS Laboratory Tests 2 11/10/20 11:31: Bedside Glucose (Misc Panel) 409H 11/10/20 16:26: Bedside Glucose (Misc Panel) 101 11/10/20 19:31: Bedside Glucose (Misc Panel) 232H 11/11/20 06:02: Nucleated Red Blood Cells % (auto) 0.0, Anion Gap 9, Glomerular Filtration Rate > 60.0, Calcium Level 9.3, Total Bilirubin 0.2, Aspartate Amino Transf (AST/SGOT) 15, Alanine Aminotransferase (ALT/SGPT) 20, Alkaline Phosphatase 96, Total Protein 6.3L, Albumin 2.8L, Albumin/Globulin Ratio 0.8 11/11/20 09:00: Bedside Glucose (Misc Panel) 226H CBC/BMP Laboratory Tests 11/10/20 13:34 11/11/20 06:02 VINCENZO IRENE MD Nov 11, 2020 11:23
[2020-11-11] MEDS: SUCRALFATE SUSP 1GM/10ML UD PO SCH ×2 (11:47→20:20)
[2020-11-11 14:00] VITALS: BP 114/67
[2020-11-11] MEDS ORDERED: LORazepam 2 MG TAB PO PRN (15:30)
[2020-11-11] MEDS ORDERED: LORazepam 2 MG/ML VIAL IV PRN (15:30)
[2020-11-11] MEDS ORDERED: LORazepam 2 MG/ML VIAL As Ordered ONE (15:48)
[2020-11-11] MEDS: RAMELTEON 8 MG TAB (ROZEREM) PO PRN (20:20)
[2020-11-11] MEDS ORDERED: SANTYL OINT 30GM TOP SCH (21:00)
[2020-11-12] MEDS: SYMBICORT 80/4.5MCG INHALER 6GM INH SCH ×2 (07:36→19:48)
[2020-11-12 07:53] LABS: HEMATOCRIT 28.9 % (42.0-52.0); HEMOGLOBIN 9.1 g/dl (13.5-17.5); MEAN CORPUSCULAR HEMOGLOBIN 26.2 pg (27.0-33.0); MEAN CORPUSCULAR HGB CONC 31.5 g/dl (32.0-36.5); MEAN CORPUSCULAR VOLUME 83.3 fl (80.0-96.0); PLATELET COUNT, AUTOMATED 180 10^3/uL (150-450); RED BLOOD COUNT 3.47 10^6/uL (4.30-6.10); WHITE BLOOD COUNT 4.7 10^3/uL (4.0-10.0)
[2020-11-12 08:11] LABS: ALBUMIN 2.7 GM/DL (3.2-5.2); ALT/SGPT 19 U/L (12-78); BILIRUBIN,TOTAL 0.3 MG/DL (0.2-1.0); BLOOD UREA NITROGEN 24 MG/DL (7-18); CALCIUM LEVEL 8.7 MG/DL (8.8-10.2); CARBON DIOXIDE LEVEL 26 MEQ/L (21-32); CHLORIDE LEVEL 106 MEQ/L (98-107); GLOMERULAR FILTRATION RATE > 60.0 (>42); GLUCOSE, FASTING 398 MG/DL (70-100); POTASSIUM SERUM 4.3 MEQ/L (3.5-5.1); SODIUM LEVEL 140 MEQ/L (136-145); TOTAL PROTEIN 6.1 GM/DL (6.4-8.2)
[2020-11-12] MEDS: HumaLOG INSULIN (NovoLOG) PER UNIT SC SCH ×4 (08:44→21:00)
[2020-11-12] MEDS: FLUoxetine 20 MG CAP PO SCH (08:45)
[2020-11-12] MEDS: ASPIRIN 81 MG ENTERIC TAB PO SCH (08:45)
[2020-11-12] MEDS: VITAMIN D 1,000 INTERNATIONAL UNITS TABLET PO SCH (08:45)
[2020-11-12] MEDS: PANTOPRAZOLE 40MG TAB (PROTONIX) PO SCH ×2 (08:45→21:04)
[2020-11-12] MEDS: SUCRALFATE SUSP 1GM/10ML UD PO SCH ×2 (08:45→21:04)
[2020-11-12] MEDS: PRAVASTATIN 20 MG TAB PO SCH (08:45)
[2020-11-12] MEDS: buPROPion **XL** TABLET 150MG (WELLBUTRIN XL) PO SCH (08:45)
[2020-11-12] MEDS: SANTYL OINT 30GM TOP SCH (08:45)
[2020-11-12] MEDS: DABIGATRAN ETEXILATE 75 MG CAP (PRADAXA) PO SCH ×2 (08:45→21:04)
[2020-11-12] MEDS: CYANOCOBALAMIN 500 MCG TAB PO SCH (08:46)
[2020-11-12] MEDS: METOPROLOL SUCC (TopROL XL) 50MG **XL** TAB PO SCH ×2 (08:47→21:05)
[2020-11-12] MEDS: LEVEMIR (INSULIN DETEMIR) 1 UNITS/0.01ML SC SCH (08:52)
--- NOTE | 2020-11-12 09:41 | CR ---
ADVANCED WOUND CARE CONSULTATION DATE: 11/11/2020 Via Telemedicine. This was scheduled yesterday, 11/10/2020, but the patient was confused and did not consent. Verbal consent was obtained today, as the patient is feeling better. He was hospitalized for confusion, hypoglycemia and hyperglycemia over the last 24 hours due to medication issues. When seen today, the patient is more coherent, glucose 350. His major wounds involve his left heel plantar surface and left heel posterior surface, just distal to the Achilles tendo insertion. Patient also has a left Charcot foot deformity. On inspection, both wounds appear relatively stable. The plantar heel wound, left foot, measures 4.0 cm x 1.0 cm with a wound depth of 0.2 cm. This wound base shows superficial fibrin slough with no deep tissue structures noted. There is callous formation involving the periwound, which shows no erythema or ischemic change. The posterior aspect of the left heel shows a wound measuring 1.5 cm x 1.5 cm. The wound base appears relatively clean with early granulation tissue present. There is minimal drainage from each wound. The patient's nutritional status is satisfactory. No antibiotics are indicated and the patient is not receiving any antibiotic therapy. TREATMENT RECOMMENDATIONS: Santyl should be applied to both wounds, a nickel thick, and covered with a Hydrofera Blue READY foam. This should be followed with a heel float boot for offloading purposes. An ABD pad should be placed underneath the Velcro strap to ensure no abrasions on the anterior portion of the ankle. If Hydrofera Blue READY is not available, Hydrofera Blue Transfer can be utilized, but will require an extra Absorb or Optilock covering dressing. This would have to be secured with a Kerlix or Cling versus the READY, which is self-adherent. When the patient has stabilized, he can be followed up at our clinic, as he has been seen here before. It should be noted that he has seen Ronny Diggs, the securities analyst, has been initially evaluated for a TUNUNAK walker boot, which will allow stabilization of his left ankle and foot, to avoid progression of the wounds. REMBERTO
--- NOTE | 2020-11-12 12:23 | IPNPDOC ---
Date Seen The patient was seen on 11/12/20. Progress Note SUBJECTIVE: agitated yesterday. awaiting psych evaluation for capacity. after rbc transfusion, denies brbpr, black tarry stools, hematemesis, coffee ground emesis. OBJECTIVE PHYSICAL EXAMINATION: VITAL SIGNS: Please see below. GENERAL:disheveled. no distress. appears sleepy but arousable HEENT: no jvd or cervical LAD no stridor or carotid bruit CARDIOVASCULAR: S1S2 RRR RESPIRATORY: CTAB no w/r/r ABDOMINAL: +bs soft nt nd EXTREMITIES:no c/c/e right 2nd toe partial toe amputation LABORATORY DATA, IMAGING STUDIES, MICROBIOLOGY: Please see below. 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 There is mild prominence of the peripheral sulci. Cerebral ventricles: There is mild prominence of the central ventricular system. Bones/joints: Fenestrated metallic plate along the left orbital floor with screws at the inferior orbital rim consistent with old injury. Paranasal sinuses: Visualized sinuses are unremarkable. No fluid levels. Mastoid air cells: Visualized mastoid air cells are well aerated. Soft tissues: Unremarkable. IMPRESSION: 1. 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 2. Residua of ORIF of left orbital floor fracture which is similar. CXR: FINDINGS: Lungs: The lungs are unchanged. Pleural space: Minimal pleural scar is noted in the lateral right base. No pneumothorax and no pleural effusion. Heart/Mediastinum: The heart and mediastinum are unchanged. Bones/joints: The osseous structures are unchanged. IMPRESSION: Stable essentially negative chest since 10/21/2020 ASSESSMENT AND PLAN: 70y/o male who signed himself out of rehab lives at home w w multiple sclerosis who cannot care for him anymore was brought in on 11/08/20 with confusion and found to have uncontrolled type 2 DM with glucose>500. He has PMH significant for h/o ETOH abuse, ETOH pancreatitis, LV diastolic CHF EF 55%CAD,HTN ,GERD ,Depression - managed by Dr. 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 Mendez) ,Hyperlipidemia ,Erectile Dysfunction - Urology in past - not since 03/2013 ,COPD ,Former Smoker ,gout ,Atrial Fibrillation - on Pradaxa - Per [facility]OCK Squamous cell ca skin followed by Derm conformal pad former. ,chronic neck and back pain - Lumbar/Cervical DDD - Per Dr. Trujillo and Dr. Perez (pain management) ,Left knee arthritis - followed by Dr.S Caldwell - s/p viscosupplementation , Diabetic foot ulcers - s/p 2nd toe partial amputation by Dr. Abbott . Acute Metabolic Encephalopathy, resolved Hyperglycemia/ Brittle DM2 symptomatic anemia s/p 3urbc transfusion Deconditioning h/o ETOH abuse Chronic kidney disease, stage III: Paroxysmal atrial fibrillation: Hyperlipidemia: GERD: Mood disorder: COPD PLAN: resumed levemir home dose, on consistent carbs diet. needing placement. prn ativan for agitations. psychiatrist consulted per pfs request for snf placement and capacity resumed on home meds. monitor for worsening anemia[facility]. VS, I&O, 24H, Fishbone Vital Signs/I&O Vital Signs Date Time Temp Pulse Resp B/P (MAP) Pulse Ox O2 Delivery O2 Flow Rate FiO2 11/12/20 08:47 80 122/60 11/11/20 14:00 98.3 17 100 Room Air I&O- Last 24 Hours up to 6 AM 11/12/20 06:00 Intake Total 700 ml Output Total 200 ml Balance 500 ml Laboratory Data 24H LABS Laboratory Tests 2 11/11/20 16:10: Bedside Glucose (Misc Panel) 350H 11/11/20 20:39: Bedside Glucose (Misc Panel) 332H 11/12/20 07:20: Nucleated Red Blood Cells % (auto) 0.0, Anion Gap 8, Glomerular Filtration Rate > 60.0, Calcium Level 8.7L, Total Bilirubin 0.3, Aspartate Amino Transf (AST/SGOT) 17, Alanine Aminotransferase (ALT/SGPT) 19, Alkaline Phosphatase 105, Total Protein 6.1L, Albumin 2.7L, Albumin/Globulin Ratio 0.8 CBC/BMP Laboratory Tests 11/12/20 07:20 VINCENZO IRENE MD Nov 12, 2020 12:23
[2020-11-13 06:00] VITALS: BP 124/73
[2020-11-13 07:21] LABS: HEMATOCRIT 31.8 % (42.0-52.0); MEAN CORPUSCULAR HEMOGLOBIN 26.3 pg (27.0-33.0); MEAN CORPUSCULAR HGB CONC 31.4 g/dl (32.0-36.5); MEAN CORPUSCULAR VOLUME 83.7 fl (80.0-96.0); PLATELET COUNT, AUTOMATED 242 10^3/uL (150-450); WHITE BLOOD COUNT 6.4 10^3/uL (4.0-10.0)
[2020-11-13] MEDS: SYMBICORT 80/4.5MCG INHALER 6GM INH SCH ×2 (07:27→20:20)
[2020-11-13 07:49] LABS: ALBUMIN 2.8 GM/DL (3.2-5.2); ALT/SGPT 22 U/L (12-78); BILIRUBIN,TOTAL 0.2 MG/DL (0.2-1.0); BLOOD UREA NITROGEN 23 MG/DL (7-18); CALCIUM LEVEL 9.5 MG/DL (8.8-10.2); CARBON DIOXIDE LEVEL 29 MEQ/L (21-32); CHLORIDE LEVEL 103 MEQ/L (98-107); CREATININE FOR GFR 0.85 MG/DL (0.70-1.30); GLOMERULAR FILTRATION RATE > 60.0 (>42); GLUCOSE, FASTING 185 MG/DL (70-100); POTASSIUM SERUM 4.3 MEQ/L (3.5-5.1); SODIUM LEVEL 139 MEQ/L (136-145); TOTAL PROTEIN 6.6 GM/DL (6.4-8.2)
[2020-11-13] MEDS: LEVEMIR (INSULIN DETEMIR) 1 UNITS/0.01ML SC SCH (08:23)
[2020-11-13] MEDS: CYANOCOBALAMIN 500 MCG TAB PO SCH (08:24)
[2020-11-13] MEDS: ASPIRIN 81 MG ENTERIC TAB PO SCH (08:24)
[2020-11-13] MEDS: PANTOPRAZOLE 40MG TAB (PROTONIX) PO SCH ×2 (08:24→21:58)
[2020-11-13] MEDS: SUCRALFATE SUSP 1GM/10ML UD PO SCH ×2 (08:24→21:59)
[2020-11-13] MEDS: FLUoxetine 20 MG CAP PO SCH (08:24)
[2020-11-13] MEDS: HumaLOG INSULIN (NovoLOG) PER UNIT SC SCH ×4 (08:24→21:00)
[2020-11-13] MEDS: DABIGATRAN ETEXILATE 75 MG CAP (PRADAXA) PO SCH ×2 (08:24→21:58)
[2020-11-13] MEDS: PRAVASTATIN 20 MG TAB PO SCH (08:25)
[2020-11-13] MEDS: buPROPion **XL** TABLET 150MG (WELLBUTRIN XL) PO SCH (08:25)
[2020-11-13] MEDS: VITAMIN D 1,000 INTERNATIONAL UNITS TABLET PO SCH (08:25)
[2020-11-13] MEDS: METOPROLOL SUCC (TopROL XL) 50MG **XL** TAB PO SCH ×2 (08:25→21:59)
[2020-11-14 06:00] VITALS: BP 138/82
[2020-11-14 06:56] LABS: HEMATOCRIT 29.8 % (42.0-52.0); HEMOGLOBIN 9.6 g/dl (13.5-17.5); MEAN CORPUSCULAR HEMOGLOBIN 26.7 pg (27.0-33.0); MEAN CORPUSCULAR HGB CONC 32.2 g/dl (32.0-36.5); PLATELET COUNT, AUTOMATED 231 10^3/uL (150-450); RED BLOOD COUNT 3.59 10^6/uL (4.30-6.10)
[2020-11-14 07:24] LABS: ALBUMIN 2.7 GM/DL (3.2-5.2); ALT/SGPT 20 U/L (12-78); BILIRUBIN,TOTAL 0.4 MG/DL (0.2-1.0); BLOOD UREA NITROGEN 21 MG/DL (7-18); CALCIUM LEVEL 8.9 MG/DL (8.8-10.2); CARBON DIOXIDE LEVEL 30 MEQ/L (21-32); CHLORIDE LEVEL 104 MEQ/L (98-107); CREATININE FOR GFR 0.95 MG/DL (0.70-1.30); GLOMERULAR FILTRATION RATE > 60.0 (>42); GLUCOSE, FASTING 142 MG/DL (70-100); POTASSIUM SERUM 4.9 MEQ/L (3.5-5.1); SODIUM LEVEL 138 MEQ/L (136-145); TOTAL PROTEIN 6.2 GM/DL (6.4-8.2)
[2020-11-14] MEDS: SYMBICORT 80/4.5MCG INHALER 6GM INH SCH ×2 (07:33→20:14)
[2020-11-14] MEDS: HumaLOG INSULIN (NovoLOG) PER UNIT SC SCH ×4 (07:56→20:32)
[2020-11-14] MEDS: LEVEMIR (INSULIN DETEMIR) 1 UNITS/0.01ML SC SCH (07:57)
[2020-11-14] MEDS: SUCRALFATE SUSP 1GM/10ML UD PO SCH ×5 (08:00→21:27)
[2020-11-14] MEDS: buPROPion **XL** TABLET 150MG (WELLBUTRIN XL) PO SCH (08:00)
[2020-11-14] MEDS: DABIGATRAN ETEXILATE 75 MG CAP (PRADAXA) PO SCH ×2 (08:00→21:27)
[2020-11-14] MEDS: VITAMIN D 1,000 INTERNATIONAL UNITS TABLET PO SCH (08:01)
[2020-11-14] MEDS: CYANOCOBALAMIN 500 MCG TAB PO SCH (08:01)
[2020-11-14] MEDS: PANTOPRAZOLE 40MG TAB (PROTONIX) PO SCH ×2 (08:01→21:27)
[2020-11-14] MEDS: FLUoxetine 20 MG CAP PO SCH (08:01)
[2020-11-14] MEDS: ASPIRIN 81 MG ENTERIC TAB PO SCH (08:01)
[2020-11-14] MEDS: PRAVASTATIN 20 MG TAB PO SCH (08:01)
[2020-11-14] MEDS: METOPROLOL SUCC (TopROL XL) 50MG **XL** TAB PO SCH ×2 (08:09→21:30)
[2020-11-14] MEDS: SANTYL OINT 30GM TOP SCH (17:09)
[2020-11-15 06:00] VITALS: BP 139/78
[2020-11-15] MEDS: SUCRALFATE SUSP 1GM/10ML UD PO SCH ×6 (07:40→21:00)
[2020-11-15] MEDS: DABIGATRAN ETEXILATE 75 MG CAP (PRADAXA) PO SCH ×2 (07:41→20:06)
[2020-11-15] MEDS: LEVEMIR (INSULIN DETEMIR) 1 UNITS/0.01ML SC SCH (07:41)
[2020-11-15] MEDS: ASPIRIN 81 MG ENTERIC TAB PO SCH (07:41)
[2020-11-15] MEDS: HumaLOG INSULIN (NovoLOG) PER UNIT SC SCH ×4 (07:41→20:26)
[2020-11-15] MEDS: PRAVASTATIN 20 MG TAB PO SCH (07:42)
[2020-11-15] MEDS: METOPROLOL SUCC (TopROL XL) 50MG **XL** TAB PO SCH ×2 (07:42→20:07)
[2020-11-15] MEDS: FLUoxetine 20 MG CAP PO SCH (07:42)
[2020-11-15] MEDS: CYANOCOBALAMIN 500 MCG TAB PO SCH (07:42)
[2020-11-15] MEDS: PANTOPRAZOLE 40MG TAB (PROTONIX) PO SCH ×2 (07:42→20:07)
[2020-11-15] MEDS: buPROPion **XL** TABLET 150MG (WELLBUTRIN XL) PO SCH (07:42)
[2020-11-15] MEDS: VITAMIN D 1,000 INTERNATIONAL UNITS TABLET PO SCH (07:42)
[2020-11-15] MEDS: SYMBICORT 80/4.5MCG INHALER 6GM INH SCH ×2 (07:50→19:56)
--- NOTE | 2020-11-15 15:13 | MHCRPDOC ---
[facility] Consultation Consultation DATE OF CONSULTATION: 11/15/20 CONSULTATION REQUESTED BY: Dr. Marilee Vick Capacity determination evaluation for [facility] placement/Psychiatric evaluation CC: I miss my so much. HPI: Eran is a 70 year old male with a history of MDD and Alcohol use [facility] who was admitted to the Medicine service due to hyperglycemia/very poorly controlled Diabetes Mellitus. A Psychiatry consult was placed in order to determine if Eran has decision making capacity to refuse [facility]F-WAY/long term placement. It also was relayed to the customs entry writer, by his Nursing staff, that his has a restraining order against him and is refusing to let him come home. This was the biggest discrepancy in the interview, as Eran insisted that they speak five times daily and that she is begging for him to come home, contrary to the actual truth. Hes also left on multiple occasions, AMA, from facilities and rehabilitation centers prior to completing adequate treatment, which is further evidence of his very poor judgment, overall. In terms of depressive symptoms, he adamantly denies any symptoms; Denies anergia, anhedonia, changes in concentration, sleep, appetite. Denies any current passive or active suicidal or homicidal ideation, intent or plan. He states that he has no history of suicide attempts or ideation in the past. Also denies a history of violence, however, due to the fact that his placed a restraining order against him, its at least clear that he has been very verbally abusive and hostile towards her, which Nursing staff corroborates. There are four generally accepted decision-making abilities that constitute capacity. If you lack even one of these four abilities, then you do not have capacity for the question at hand. These four abilities are having a complete understanding of what it would mean/entail to go to an [facility] versus not go to an [facility]. Being able to clearly communicate a choice when presented with multiple treatment options. The ability to appreciate the facts involved and how it pertains to him. And the ability to reason and compare different choices/alternatives. He lacks the ability to appreciate and lacks the ability to reason, overall, with sound judgement, in regards to him going home versus being placed at an [facility]F-WAY. Therefore, he does not have sound decision making capacity in reference to whether he should or should not be placed at an HALF-WAY. Past psych hx: Endorsing one inpatient Psychiatric hospitalization in September [address] [facility] for the treatment of his depression and alcohol de pendence. Stated that he was there for approximately five weeks. He currently sees Dr. Matthew Garnica who is his outpatient Psychiatrist in [place]. He has been prescribed Wellbutrin XL 300 mg once daily and Prozac 20 mg once daily for the past five years. He denies any history of suicide attempts or violence. Medical hx: DM, HTN, Renal failure, CHF, Atrial fibrillation Allergies: No known drug or food allergies Family psych hx: denies Social hx: States that he has been for the past 15 years although his , according to Nursing staff, has a current restraining order against him, so they are soon to be considered, . He has two adult children; One daughter, age 45, who resides in [place] and one son, age 42, who resides in [place]. 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 In terms of substance use, alcohol is his substance of choice; States that at his peak use, he would drink a 6 pack of beer in a day. States that he does not drink wine or hard liquor and he has been sober, allegedly, for four months. Denies any other substance use. History of one DWI ten years ago. MSE: He was seen and evaluated at the bedside, alert and oriented times three, cognition fair, good eye contact, appears older than stated age, poor hygiene, somewhat psychomotor retarded. Speech is slow in rate, soft in volume and decreased in production. Mood: pretty good, but I miss my , Affect: constricted/tearful, decreased intensity and range. Thought processes are somewhat circumstantial but for the most part, goal directed. Thought content: denies any current passive or active suicidal or homicidal ideation, intent or plan. Appears to have delusional themes in reference to his relationship with his ; Denies AH/VH/TH; insight, impulse control and judgment are poor. MMSE 27/30. A/P: There are four generally accepted decision-making abilities that constitute capacity. If you lack even one of these four abilities, then you do not have capacity for the question at hand. These four abilities are having a complete understanding of what it would mean/entail to go to an [facility] versus not go to an [facility]. Being able to clearly communicate a choice when presented with multiple treatment options. The ability to appreciate the facts involved and how it pertains to him. And the ability to reason and compare different choices/alternatives. He lacks the ability to appreciate and lacks the ability to reason, overall, with sound judgement, in regards to him going home versus being placed at an [facility]. Therefore, he does not have sound decision making capacity in reference to whether he should or should not be placed at an Assisted living facility. Vital Signs Vital Signs Date Time Temp Pulse Resp B/P (MAP) Pulse Ox O2 Delivery O2 Flow Rate FiO2 11/15/20 07:42 80 139/78 11/15/20 06:00 98.3 17 97 11/13/20 06:00 Room Air Laboratory Data 24H Labs Laboratory Tests 2 11/14/20 16:30: Bedside Glucose (Misc Panel) 157H 11/14/20 20:31: Bedside Glucose (Misc Panel) 196H 11/15/20 07:08: Bedside Glucose (Misc Panel) 213H 11/15/20 11:19: Bedside Glucose (Misc Panel) 227H Home Medications Current Medications Current Medications Medications (Trade) Dose Ordered Sig/Jenelle Route PRN Reason Start Time Stop Time Status Last Admin Dose Admin Acetaminophen (Tylenol Tab) 650 mg Q4H PRN PO PAIN OR FEVER 11/08/20 22:30 Aspirin (Ecotrin) 81 mg DAILY PO 11/09/20 09:00 11/15/20 07:41 Budesonide/ Formoterol Fumarate (Symbicort 80/ 4.5mcg) 2 puff RBID INH 11/09/20 08:00 11/15/20 07:50 Bupropion HCl (Wellbutrin Xl) 300 mg DAILY PO 11/09/20 09:00 11/15/20 07:42 Collagenase (SantyL) apply nickel th... Q2D@0900 TOP 11/12/20 09:00 11/14/20 17:09 Collagenase (SantyL) apply nickel th... Q2D@2100 TOP 11/11/20 21:00 11/11/20 20:26 DC Cyanocobalamin (Vitamin B12) 1,000 mcg DAILY PO 11/09/20 09:00 11/15/20 07:42 Dabigatran (Pradaxa) 150 mg BID PO 11/09/20 09:00 11/15/20 07:41 Dextrose (Dextrose 50%) 25 ml ASDIRECTED PRN IV SEE LABEL COMMENTS 11/08/20 22:30 Cancel Dextrose (Dextrose 50%) 25 ml ASDIRECTED PRN IV SEE LABEL COMMENTS 11/09/20 12:45 Dextrose (Dextrose 50%) 50 ml STAT STAT IV 11/11/20 08:49 11/11/20 08:50 DC Famotidine (Pepcid) 40 mg DAILY PO 11/09/20 09:00 11/10/20 11:26 DC 11/10/20 08:05 Fluoxetine HCl (PROzac) 20 mg DAILY PO 11/09/20 09:00 11/15/20 07:42 Glucagon (Glucagon) 1 mg ASDIRECTED PRN SC SEE LABEL COMMENTS 11/08/20 22:30 Cancel Glucagon (Glucagon) 1 mg ASDIRECTED PRN SC SEE LABEL COMMENTS 11/09/20 12:45 Glucose (Glucose) 16 GM ASDIRECTED PRN PO SEE LABEL COMMENTS 11/08/20 22:30 Cancel Glucose (Glucose) 16 GM ASDIRECTED PRN PO SEE LABEL COMMENTS 11/09/20 12:45 Insulin Detemir (Levemir Insulin) 15 units BID SC 11/10/20 21:00 11/11/20 08:49 DC 11/10/20 20:31 Insulin Detemir (Levemir Insulin) 30 units DAILY SC 11/09/20 09:00 11/10/20 11:24 DC 11/10/20 08:04 Insulin Detemir (Levemir Insulin) 32 units DAILY SC 11/12/20 09:00 11/15/20 07:41 Insulin Human Lispro (HumaLOG INSULIN) SEE PROTOCOL TABLE AC CA 11/09/20 12:00 11/15/20 12:37 Insulin Human Lispro (HumaLOG INSULIN) [facility]OCOL [facility] 11/09/20 21:00 11/11/20 20:44 Insulin Human Lispro (HumaLOG INSULIN) See Protocol Table AC CA 11/09/20 07:30 11/09/20 12:33 DC 11/09/20 07:01 Insulin Human Lispro (HumaLOG INSULIN) See Protocol [facility] 11/08/20 21:00 11/09/20 12:33 DC Lisinopril (Prinivil) 20 mg DAILY PO 11/09/20 09:00 11/09/20 02:04 DC Lorazepam (Ativan) 0.5 mg Q4HP PRN IV AGITATION 11/11/20 15:30 11/12/20 08:39 DC 11/11/20 15:52 Lorazepam (Ativan) 2 mg Q4HP PRN PO ANXIETY/AGITATION 11/11/20 15:30 11/11/20 20:20 Magnesium Hydroxide (Milk Of Magnesia) 30 ml Q4HP PRN PO CONSTIPATION 11/10/20 11:30 Metoprolol Succinate (TopROL XL) 50 mg BID PO 11/09/20 09:00 11/15/20 07:42 Pantoprazole Sodium (Protonix) 40 mg BID PO 11/10/20 21:00 11/15/20 07:42 Polyethylene Glycol (Miralax) 1 pkt DAILYPRN PRN PO CONSTIPATION 11/10/20 11:30 Pravastatin Sodium (Pravachol) 20 mg DAILY PO 11/09/20 09:00 11/15/20 07:42 Ramelteon (Rozerem) 8 mg QHS PRN PO INSOMNIA 11/10/20 23:00 11/11/20 20:20 Senna/Docusate Sodium (Senokot S) 2 tab BIDP PRN PO CONSTIPATION 11/10/20 11:30 Sodium Chloride 1,000 ml @ 100 mls/hr Q10H IV 11/09/20 03:15 11/09/20 14:13 DC 11/09/20 13:37 Sodium Chloride 1,000 ml @ 150 mls/hr Q6H40M IV 11/09/20 00:00 11/09/20 02:08 DC Sucralfate (Carafate Suspension) 1 gm ACHS PO 11/14/20 12:00 11/15/20 12:37 Sucralfate (Carafate Suspension) 1 gm BID PO 11/11/20 09:00 11/15/20 09:04 Vitamin D (Vitamin D) 1,000 units DAILY PO 11/09/20 09:00 11/15/20 07:42 Scheduled Allopurinol (Allopurinol) 100 Mg Tab, 50 MG PO DAILY, (Reported) Aspirin (Aspirin EC) 81 Mg Tablet.dr, 81 MG PO DAILY, (Reported) Budesonide/Formoterol (Symbicort 80-4.5 Mcg Inhaler) 60 Puff/Inhaler Aers, 2 PUFF INH BID, (Reported) Bupropion HCl (Bupropion Xl) 300 Mg Tab.er.24h, 300 MG PO DAILY, (Reported) Cholecalciferol (Vitamin D3) (Vitamin D3) 1,000 Unit Tablet, 1,000 UNITS PO DAILY, (Reported) Cyanocobalamin (Vitamin B-12) (Vitamin B-12) 1,000 Mcg Tab, 1,000 MCG PO DAILY, (Reported) Dabigatran Etexilate Mesylate (Pradaxa) 150 Mg Capsule, 150 MG PO BID, (Reported) Esomeprazole Magnesium (Esomeprazole Magnesium) 40 Mg Capsule.dr, 40 MG PO DAILY, (Reported) Famotidine (Famotidine) 40 Mg Tablet, 40 MG PO DAILY, (Reported) Fluoxetine Hcl (Fluoxetine HCl) 20 Mg Cap, 20 MG PO DAILY, (Reported) Folic Acid (Folic Acid) 0.4 Mg Tablet, 400 MCG PO DAILY, (Reported) Insulin Degludec (Tresiba Flextouch U-100) 100 Unit/Ml Inj, 32 UNIT SC DAILY, (Reported) Insulin Human Lispro (Humalog) 1 Units/0.01 Ml Inj, 1 DOSE SC ACHS, (Reported) PER SLIDING SCALE Lisinopril (Lisinopril) 20 Mg Tab, 20 MG PO DAILY, (Reported) Metoprolol Succinate (Metoprolol Succinate) 50 Mg Tab.er.24h, 50 MG PO BID, (Reported) Pravastatin Sodium (Pravachol) 20 Mg Tab, 20 MG PO DAILY, (Reported) Scheduled PRN Glucagon,Human Recombinant (Glucagon Emergency Kit) 1 Mg Vial, 1 MG IM ASDIRECTED PRN for LOW BLOOD SUGAR, (Reported) Miscellaneous Medications [Patient Comment] , (Reported) UNABLE TO VERIFY MEDICATIONS WITH PATIENT - MED LIST OBTAINED FROM EXTERNAL MED HX AND PREVIOUS CLINIC VISIT Allergies Coded Allergies: No Known Allergies (Verified , 10/27/20) JEROME QUEZADA MD Nov 15, 2020 15:13
[2020-11-16 06:00] VITALS: BP 137/82
[2020-11-16] MEDS: SYMBICORT 80/4.5MCG INHALER 6GM INH SCH ×2 (07:45→20:08)
[2020-11-16] MEDS: PRAVASTATIN 20 MG TAB PO SCH (08:01)
[2020-11-16] MEDS: METOPROLOL SUCC (TopROL XL) 50MG **XL** TAB PO SCH ×2 (08:01→20:11)
[2020-11-16] MEDS: ASPIRIN 81 MG ENTERIC TAB PO SCH (08:01)
[2020-11-16] MEDS: VITAMIN D 1,000 INTERNATIONAL UNITS TABLET PO SCH (08:01)
[2020-11-16] MEDS: SUCRALFATE SUSP 1GM/10ML UD PO SCH ×4 (08:01→18:03)
[2020-11-16] MEDS: CYANOCOBALAMIN 500 MCG TAB PO SCH (08:01)
[2020-11-16] MEDS: DABIGATRAN ETEXILATE 75 MG CAP (PRADAXA) PO SCH ×2 (08:01→20:10)
[2020-11-16] MEDS: PANTOPRAZOLE 40MG TAB (PROTONIX) PO SCH ×2 (08:01→20:10)
[2020-11-16] MEDS: LEVEMIR (INSULIN DETEMIR) 1 UNITS/0.01ML SC SCH (08:02)
[2020-11-16] MEDS: FLUoxetine 20 MG CAP PO SCH (08:02)
[2020-11-16] MEDS: buPROPion **XL** TABLET 150MG (WELLBUTRIN XL) PO SCH (08:02)
[2020-11-16] MEDS: HumaLOG INSULIN (NovoLOG) PER UNIT SC SCH ×4 (08:03→21:35)
[2020-11-16] MEDS: SANTYL OINT 30GM TOP SCH (08:03)
[2020-11-16] MEDS: RAMELTEON 8 MG TAB (ROZEREM) PO PRN (20:10)
[2020-11-17 06:00] VITALS: BP 134/81
[2020-11-17] MEDS: SYMBICORT 80/4.5MCG INHALER 6GM INH SCH ×2 (07:53→20:12)
[2020-11-17 08:25] VITALS: BP 119/68
[2020-11-17] MEDS: SUCRALFATE SUSP 1GM/10ML UD PO SCH ×4 (08:25→20:41)
[2020-11-17] MEDS: HumaLOG INSULIN (NovoLOG) PER UNIT SC SCH ×4 (08:26→20:36)
[2020-11-17] MEDS: ASPIRIN 81 MG ENTERIC TAB PO SCH (08:26)
[2020-11-17] MEDS: LEVEMIR (INSULIN DETEMIR) 1 UNITS/0.01ML SC SCH (08:26)
[2020-11-17] MEDS: FLUoxetine 20 MG CAP PO SCH (08:27)
[2020-11-17] MEDS: METOPROLOL SUCC (TopROL XL) 50MG **XL** TAB PO SCH ×2 (08:27→20:42)
[2020-11-17] MEDS: PANTOPRAZOLE 40MG TAB (PROTONIX) PO SCH ×2 (08:27→20:42)
[2020-11-17] MEDS: PRAVASTATIN 20 MG TAB PO SCH (08:27)
[2020-11-17] MEDS: DABIGATRAN ETEXILATE 75 MG CAP (PRADAXA) PO SCH ×2 (08:27→20:42)
[2020-11-17] MEDS: VITAMIN D 1,000 INTERNATIONAL UNITS TABLET PO SCH (08:27)
[2020-11-17] MEDS: buPROPion **XL** TABLET 150MG (WELLBUTRIN XL) PO SCH (08:27)
[2020-11-17] MEDS: CYANOCOBALAMIN 500 MCG TAB PO SCH (08:27)
[2020-11-17] MEDS: RAMELTEON 8 MG TAB (ROZEREM) PO PRN (20:41)
[2020-11-18 06:00] VITALS: BP 115/71
[2020-11-18] MEDS: SYMBICORT 80/4.5MCG INHALER 6GM INH SCH ×2 (06:31→19:42)
[2020-11-18] MEDS: CYANOCOBALAMIN 500 MCG TAB PO SCH (08:14)
[2020-11-18] MEDS: ASPIRIN 81 MG ENTERIC TAB PO SCH (08:14)
[2020-11-18] MEDS: buPROPion **XL** TABLET 150MG (WELLBUTRIN XL) PO SCH (08:14)
[2020-11-18] MEDS: PANTOPRAZOLE 40MG TAB (PROTONIX) PO SCH ×2 (08:14→20:15)
[2020-11-18] MEDS: VITAMIN D 1,000 INTERNATIONAL UNITS TABLET PO SCH (08:14)
[2020-11-18] MEDS: FLUoxetine 20 MG CAP PO SCH (08:14)
[2020-11-18] MEDS: SUCRALFATE SUSP 1GM/10ML UD PO SCH ×4 (08:15→20:15)
[2020-11-18] MEDS: DABIGATRAN ETEXILATE 75 MG CAP (PRADAXA) PO SCH ×2 (08:15→20:16)
[2020-11-18] MEDS: METOPROLOL SUCC (TopROL XL) 50MG **XL** TAB PO SCH ×2 (08:15→20:16)
[2020-11-18] MEDS: PRAVASTATIN 20 MG TAB PO SCH (08:15)
[2020-11-18] MEDS: SANTYL OINT 30GM TOP SCH (08:18)
[2020-11-18] MEDS: HumaLOG INSULIN (NovoLOG) PER UNIT SC SCH ×4 (08:19→21:00)
[2020-11-18] MEDS: LEVEMIR (INSULIN DETEMIR) 1 UNITS/0.01ML SC SCH (08:20)
[2020-11-19 06:00] VITALS: BP 122/76
[2020-11-19] MEDS: SYMBICORT 80/4.5MCG INHALER 6GM INH SCH ×2 (07:47→20:09)
[2020-11-19] MEDS: SUCRALFATE SUSP 1GM/10ML UD PO SCH ×4 (07:52→20:52)
[2020-11-19] MEDS: HumaLOG INSULIN (NovoLOG) PER UNIT SC SCH ×4 (07:52→20:55)
[2020-11-19] MEDS: VITAMIN D 1,000 INTERNATIONAL UNITS TABLET PO SCH (09:03)
[2020-11-19] MEDS: DABIGATRAN ETEXILATE 75 MG CAP (PRADAXA) PO SCH ×2 (09:03→20:52)
[2020-11-19] MEDS: LEVEMIR (INSULIN DETEMIR) 1 UNITS/0.01ML SC SCH (09:03)
[2020-11-19] MEDS: ASPIRIN 81 MG ENTERIC TAB PO SCH (09:03)
[2020-11-19] MEDS: buPROPion **XL** TABLET 150MG (WELLBUTRIN XL) PO SCH (09:04)
[2020-11-19] MEDS: PRAVASTATIN 20 MG TAB PO SCH (09:04)
[2020-11-19] MEDS: METOPROLOL SUCC (TopROL XL) 50MG **XL** TAB PO SCH ×2 (09:04→20:54)
[2020-11-19] MEDS: CYANOCOBALAMIN 500 MCG TAB PO SCH (09:04)
[2020-11-19] MEDS: PANTOPRAZOLE 40MG TAB (PROTONIX) PO SCH ×2 (09:04→20:54)
[2020-11-19] MEDS: FLUoxetine 20 MG CAP PO SCH (09:04)
[2020-11-19] MEDS: RAMELTEON 8 MG TAB (ROZEREM) PO PRN (20:52)
[2020-11-20 06:00] VITALS: BP 133/82
[2020-11-20] MEDS: HumaLOG INSULIN (NovoLOG) PER UNIT SC SCH ×4 (07:36→21:05)
[2020-11-20] MEDS: SUCRALFATE SUSP 1GM/10ML UD PO SCH ×4 (07:36→21:04)
[2020-11-20] MEDS: SYMBICORT 80/4.5MCG INHALER 6GM INH SCH ×2 (07:50→18:14)
[2020-11-20] MEDS: LEVEMIR (INSULIN DETEMIR) 1 UNITS/0.01ML SC SCH (08:25)
[2020-11-20] MEDS: VITAMIN D 1,000 INTERNATIONAL UNITS TABLET PO SCH (08:26)
[2020-11-20] MEDS: FLUoxetine 20 MG CAP PO SCH (08:26)
[2020-11-20] MEDS: CYANOCOBALAMIN 500 MCG TAB PO SCH (08:26)
[2020-11-20] MEDS: PANTOPRAZOLE 40MG TAB (PROTONIX) PO SCH ×2 (08:26→21:04)
[2020-11-20] MEDS: DABIGATRAN ETEXILATE 75 MG CAP (PRADAXA) PO SCH ×2 (08:26→21:04)
[2020-11-20] MEDS: METOPROLOL SUCC (TopROL XL) 50MG **XL** TAB PO SCH ×2 (08:26→21:07)
[2020-11-20] MEDS: ASPIRIN 81 MG ENTERIC TAB PO SCH (08:26)
[2020-11-20] MEDS: PRAVASTATIN 20 MG TAB PO SCH (08:26)
[2020-11-20] MEDS: buPROPion **XL** TABLET 150MG (WELLBUTRIN XL) PO SCH (08:26)
[2020-11-20] MEDS: SANTYL OINT 30GM TOP SCH (08:27)
[2020-11-20] MEDS: RAMELTEON 8 MG TAB (ROZEREM) PO PRN (21:04)
[2020-11-21 06:00] VITALS: BP 126/78
[2020-11-21] MEDS: SYMBICORT 80/4.5MCG INHALER 6GM INH SCH ×2 (07:23→18:30)
[2020-11-21] MEDS: LEVEMIR (INSULIN DETEMIR) 1 UNITS/0.01ML SC SCH (09:14)
[2020-11-21] MEDS: PANTOPRAZOLE 40MG TAB (PROTONIX) PO SCH ×2 (09:14→19:57)
[2020-11-21] MEDS: HumaLOG INSULIN (NovoLOG) PER UNIT SC SCH ×4 (09:14→20:41)
[2020-11-21] MEDS: DABIGATRAN ETEXILATE 75 MG CAP (PRADAXA) PO SCH ×2 (09:14→19:57)
[2020-11-21] MEDS: VITAMIN D 1,000 INTERNATIONAL UNITS TABLET PO SCH (09:14)
[2020-11-21] MEDS: PRAVASTATIN 20 MG TAB PO SCH (09:14)
[2020-11-21] MEDS: FLUoxetine 20 MG CAP PO SCH (09:15)
[2020-11-21] MEDS: buPROPion **XL** TABLET 150MG (WELLBUTRIN XL) PO SCH (09:15)
[2020-11-21] MEDS: CYANOCOBALAMIN 500 MCG TAB PO SCH (09:15)
[2020-11-21] MEDS: SUCRALFATE SUSP 1GM/10ML UD PO SCH ×4 (09:15→19:54)
[2020-11-21] MEDS: METOPROLOL SUCC (TopROL XL) 50MG **XL** TAB PO SCH ×2 (09:15→19:57)
[2020-11-21] MEDS: ASPIRIN 81 MG ENTERIC TAB PO SCH (09:15)
--- NOTE | 2020-11-21 18:08 | IPNPDOC ---
Text Note Date of Service The patient was seen on 11/20/20. NOTE SUBJECTIVE: Sugars have have varying this week. Had an episode of asymptomatic hypoglycemia. As per psych does not have capacity to make medical decisions. OBJECTIVE PHYSICAL EXAMINATION: VITAL SIGNS: Please see below. GENERAL: Laying in bed in no acute distress. Calm and cooperative. HEENT: Normocephalic, atraumatic moist mucous membranes anicteric eyes. NECK: no jvd or cervical LAD no stridor or carotid bruit CARDIOVASCULAR: S1S2 RRR RESPIRATORY: CTAB no w/r/r ABDOMINAL: +bs soft nt nd EXTREMITIES:no c/c/e right 2nd toe partial toe amputation LABORATORY DATA, IMAGING STUDIES, MICROBIOLOGY: Please see below. ASSESSMENT AND PLAN: 70y/o male who signed himself out of rehab lives at home with w multiple sclerosis who cannot care for him anymore was brought in to the hospital on 11/08/20 with confusion and found to have uncontrolled type 2 DM with glucose>500. He has PMH significant for ETOH abuse, ETOH induced chronic pancreatitis, LV diastolic CHF EF 55%, CAD, HTN ,GERD ,Depression ,Anxiety, DM Type II Insulin requiring (Dr. Caldwell) with neuropathy and nephropathy (Brittle on continuous glucose monitoring with tendency to have hypoglycemia); per endo, "acts like Type 1" due to lack of pancreatic fxn/no insulin secretion , Kidney Disease CKD II, Hyperlipidemia ,Erectile Dysfunction, COPD , Former Smoker ,gout , Atrial Fibrillation - on Pradaxa - Per CANNY Squamous cell ca skin followed by Derm crystallizer operator. ,chronic neck and back pain - Lumbar/Cervical DDD, Left knee arthritis - followed by Dr.S Caldwell - s/p viscosupplementation , Diabetic foot ulcers - s/p 2nd toe partial amputation by Dr. Abbott. He was evaluted by Psychiatry an found to have no medical decision making capacity. 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 Acute Metabolic Encephalopathy, resolved Hyperglycemia/ Brittle DM2 Neuropathy Charcot joint has new boots delivered. Gait instability Symptomatic anemia s/p 3urbc transfusion Deconditioning h/o ETOH abuse Chronic kidney disease, stage III: Paroxysmal atrial fibrillation: Hyperlipidemia: GERD: Mood disorder: COPD Chronic Pancreatitis CAD HTN GERD Depression - managed by Dr. Monteiro Anxiety gout Atrial Fibrillation Chronic neck and back pain - Lumbar/Cervical DDD Left knee arthritis Diabetic foot ulcers - s/p 2nd toe partial amputation VS,Fishbone, I+O VS, Fishbone, I+O Vital Signs Date Time Temp Pulse Resp B/P (MAP) Pulse Ox O2 Delivery O2 Flow Rate FiO2 11/20/20 08:26 78 128/80 11/20/20 06:00 97.0 18 96 Room Air I&O- Last 24 Hours up to 6 AM 11/20/20 07:00 Intake Total 1950 ml Output Total 1950 ml Balance 0 ml MANNY SHARP MD Nov 20, 2020 17:24
[2020-11-21] MEDS: RAMELTEON 8 MG TAB (ROZEREM) PO PRN (19:53)
[2020-11-22 06:00] VITALS: BP 119/66
[2020-11-22] MEDS: SYMBICORT 80/4.5MCG INHALER 6GM INH SCH ×2 (07:29→20:50)
[2020-11-22] MEDS: HumaLOG INSULIN (NovoLOG) PER UNIT SC SCH ×4 (08:09→20:48)
[2020-11-22] MEDS: LEVEMIR (INSULIN DETEMIR) 1 UNITS/0.01ML SC SCH (08:09)
[2020-11-22] MEDS: buPROPion **XL** TABLET 150MG (WELLBUTRIN XL) PO SCH (08:10)
[2020-11-22] MEDS: ASPIRIN 81 MG ENTERIC TAB PO SCH (08:10)
[2020-11-22] MEDS: METOPROLOL SUCC (TopROL XL) 50MG **XL** TAB PO SCH ×2 (08:10→20:04)
[2020-11-22] MEDS: VITAMIN D 1,000 INTERNATIONAL UNITS TABLET PO SCH (08:10)
[2020-11-22] MEDS: DABIGATRAN ETEXILATE 75 MG CAP (PRADAXA) PO SCH ×2 (08:10→20:04)
[2020-11-22] MEDS: PANTOPRAZOLE 40MG TAB (PROTONIX) PO SCH ×2 (08:10→20:04)
[2020-11-22] MEDS: PRAVASTATIN 20 MG TAB PO SCH (08:10)
[2020-11-22] MEDS: FLUoxetine 20 MG CAP PO SCH (08:10)
[2020-11-22] MEDS: CYANOCOBALAMIN 500 MCG TAB PO SCH (08:11)
[2020-11-22] MEDS: SUCRALFATE SUSP 1GM/10ML UD PO SCH ×4 (08:11→20:04)
[2020-11-22] MEDS: SANTYL OINT 30GM TOP SCH (08:12)
[2020-11-22] MEDS: RAMELTEON 8 MG TAB (ROZEREM) PO PRN (20:04)
[2020-11-23 06:00] VITALS: BP 127/67
[2020-11-23] MEDS: SYMBICORT 80/4.5MCG INHALER 6GM INH SCH ×2 (07:20→17:58)
[2020-11-23] MEDS: ASPIRIN 81 MG ENTERIC TAB PO SCH (09:26)
[2020-11-23] MEDS: DABIGATRAN ETEXILATE 75 MG CAP (PRADAXA) PO SCH ×2 (09:26→20:04)
[2020-11-23] MEDS: SUCRALFATE SUSP 1GM/10ML UD PO SCH ×4 (09:26→20:03)
[2020-11-23] MEDS: CYANOCOBALAMIN 500 MCG TAB PO SCH (09:27)
[2020-11-23] MEDS: buPROPion **XL** TABLET 150MG (WELLBUTRIN XL) PO SCH (09:27)
[2020-11-23] MEDS: PANTOPRAZOLE 40MG TAB (PROTONIX) PO SCH ×2 (09:27→20:04)
[2020-11-23] MEDS: PRAVASTATIN 20 MG TAB PO SCH (09:27)
[2020-11-23] MEDS: VITAMIN D 1,000 INTERNATIONAL UNITS TABLET PO SCH (09:27)
[2020-11-23] MEDS: FLUoxetine 20 MG CAP PO SCH (09:27)
[2020-11-23] MEDS: LEVEMIR (INSULIN DETEMIR) 1 UNITS/0.01ML SC SCH (09:28)
[2020-11-23] MEDS: HumaLOG INSULIN (NovoLOG) PER UNIT SC SCH ×4 (09:28→20:41)
[2020-11-23] MEDS: METOPROLOL SUCC (TopROL XL) 50MG **XL** TAB PO SCH ×2 (09:30→20:06)
[2020-11-23] MEDS: RAMELTEON 8 MG TAB (ROZEREM) PO PRN (20:04)
[2020-11-24 06:00] VITALS: BP 126/73
[2020-11-24] MEDS: SYMBICORT 80/4.5MCG INHALER 6GM INH SCH ×2 (07:28→20:46)
[2020-11-24] MEDS: ASPIRIN 81 MG ENTERIC TAB PO SCH (08:32)
[2020-11-24] MEDS: FLUoxetine 20 MG CAP PO SCH (08:32)
[2020-11-24] MEDS: PRAVASTATIN 20 MG TAB PO SCH (08:32)
[2020-11-24] MEDS: PANTOPRAZOLE 40MG TAB (PROTONIX) PO SCH ×2 (08:32→20:38)
[2020-11-24] MEDS: SUCRALFATE SUSP 1GM/10ML UD PO SCH ×4 (08:32→20:38)
[2020-11-24] MEDS: buPROPion **XL** TABLET 150MG (WELLBUTRIN XL) PO SCH (08:32)
[2020-11-24] MEDS: DABIGATRAN ETEXILATE 75 MG CAP (PRADAXA) PO SCH ×2 (08:32→20:38)
[2020-11-24] MEDS: VITAMIN D 1,000 INTERNATIONAL UNITS TABLET PO SCH (08:33)
[2020-11-24] MEDS: HumaLOG INSULIN (NovoLOG) PER UNIT SC SCH ×4 (08:33→20:35)
[2020-11-24] MEDS: CYANOCOBALAMIN 500 MCG TAB PO SCH (08:33)
[2020-11-24] MEDS: LEVEMIR (INSULIN DETEMIR) 1 UNITS/0.01ML SC SCH (08:34)
[2020-11-24] MEDS: SANTYL OINT 30GM TOP SCH (08:34)
[2020-11-24] MEDS: METOPROLOL SUCC (TopROL XL) 50MG **XL** TAB PO SCH ×2 (08:36→20:39)
--- NOTE | 2020-11-24 12:41 | IPN ---
PROGRESS NOTE DATE: 11/08/2020 SUBJECTIVE: Eran was seen on [facility] status. Mental status was unchanged. He does not recognize me. He feels he is participating with therapy satisfactory. OBJECTIVE: VITAL SIGNS: Vital signs are stable. Exam is baseline from his office exam. LUNGS: Clear. HEART: Regular rate and rhythm. ABDOMEN: Soft and nontender. EXTREMITIES: Decreased pulses both feet. LABORATORY DATA: Blood sugars are in the 100 to 200 range. PLAN: We will increase his basal insulin to 30 units daily. Continue his sliding scale coverage for now, but once his blood sugar are in the 100-150 range, I would recommend discontinuing sliding scale coverage and just relying on the basal insulin. At his age with his comorbidities, tight control of diabetes is not necessary and potentially harmful He has dementia, and his current mental status as at his baseline. i have seen the progresive decline from his dementia after repeated office appts. REMBERTO
[2020-11-25 06:00] VITALS: BP 121/75
[2020-11-25] MEDS: SYMBICORT 80/4.5MCG INHALER 6GM INH SCH (07:41)
[2020-11-25] MEDS: buPROPion **XL** TABLET 150MG (WELLBUTRIN XL) PO SCH (08:03)
[2020-11-25] MEDS: FLUoxetine 20 MG CAP PO SCH (08:03)
[2020-11-25] MEDS: HumaLOG INSULIN (NovoLOG) PER UNIT SC SCH ×2 (08:03→12:42)
[2020-11-25] MEDS: SUCRALFATE SUSP 1GM/10ML UD PO SCH ×2 (08:03→12:42)
[2020-11-25 08:04] VITALS: BP 145/79
[2020-11-25] MEDS: PRAVASTATIN 20 MG TAB PO SCH (08:04)
[2020-11-25] MEDS: PANTOPRAZOLE 40MG TAB (PROTONIX) PO SCH (08:04)
[2020-11-25] MEDS: DABIGATRAN ETEXILATE 75 MG CAP (PRADAXA) PO SCH (08:04)
[2020-11-25] MEDS: METOPROLOL SUCC (TopROL XL) 50MG **XL** TAB PO SCH (08:04)
[2020-11-25] MEDS: VITAMIN D 1,000 INTERNATIONAL UNITS TABLET PO SCH (08:04)
[2020-11-25] MEDS: CYANOCOBALAMIN 500 MCG TAB PO SCH (08:04)
[2020-11-25] MEDS: ASPIRIN 81 MG ENTERIC TAB PO SCH (08:04)
[2020-11-25] MEDS ORDERED: LEVEMIR (INSULIN DETEMIR) 1 UNITS/0.01ML SC SCH (09:00)
[2020-11-25] MEDS ORDERED: RAME8TAB2 PO (10:17)
[2020-11-25] MEDS ORDERED: SANT250O8 TOP (11:27)
--- NOTE | 2020-11-25 12:21 | DSES ---
DISCHARGE SUMMARY DATE OF ADMISSION: 11/08/2020 DATE OF DISCHARGE: 11/25/2020 PRINCIPAL DIAGNOSIS: 1. Acute metabolic encephalopathy. SECONDARY DIAGNOSES: 1. Dementia. 2. Type 2 diabetes, brittle with neuropathy and Charcot joints in his feet. 3. Gait instability. 4. Anemia, symptomatic, requiring 3 units of packed red blood cells. 5. History of alcohol abuse. 6. Chronic kidney disease Stage III. 7. Paroxysmal atrial fibrillation. 8. Hyperlipidemia. 9. GERD. 10.COPD. 11.Chronic pancreatitis. 12.Coronary artery disease. 13.History of depression with anxiety. 14.History of gout. 15.History of diabetic foot ulcer status post second toe partial amputation in the past. HISTORY: Eran Ring was admitted after signing himself out of rehab. His has multiple sclerosis, she cannot take care of him, he has been in and out of the hospital, signing himself out but unable to handle himself at home, he is confused, has dementia and ultimately ended up getting admitted. HOSPITAL COURSE: After admission he responded to consistent medical care. His medical condition rapidly stabilized. He has dementia, returned to baseline mental status. He was seen in consultation by Psychiatry. They found that he does not have sound decision making capacity. SIGNIFICANT LABS: Most recently on 11/14/2020 his white count was 7, hemoglobin 9.6, platelets 231,000, sodium 138, potassium 4.9, BUN 21, creatinine 0.9, glucose 142. COVID test was negative on 11/08, COVID test was negative today. Blood sugars have been in the 200 range (it should be noted that although this patient is a Type 2 diabetic, his hybrid derivatives trader, Dr. Deborah Caldwell has commented "he acts like a Type 1 diabetic, has chronic pancreatitis which has resulted in significant loss of pancreatic function, he is essentially a Type 1 diabetic." DISPOSITION: The patient is being discharged to [facility]. His activity is as tolerated. He has special shoes and boots due to his Charcot joints. DISCHARGE MEDICATIONS: 1. Allopurinol 50 mg daily. 2. Aspirin 81 mg daily. 3. Symbicort 80-4.5 two inhalations b.i.d. 4. Wellbutrin XL 300 mg daily. 5. Vitamin D 1000 units daily. 6. B12 1000 mcg p.o. daily. 7. Pradaxa 150 mg b.i.d. 8. Esomeprazole 40 mg daily. 9. Famotidine 40 mg daily. 10.Fluoxetine 20 mg daily. 11.Folic acid 40 mg daily. 12.Tresiba 32 units daily. 13.Humalog on a sliding scale a.c. and h.s. 14.Lisinopril 20 mg daily. 15.Metoprolol succinate 50 mg b.i.d. 16.Pravastatin 20 mg daily. 17.He is currently receiving Ramelteon 8 mg at bedtime for insomnia in addition to the medications dictated above. Would recommend a Medx profile and a CBC in the next few weeks Would advise against shooting for tight control of his diabetes as he is prone to hypoglycemia and only moderate control is in his best interest.
== END 2020-11-25 13:49 | DRG 637 ==
LOC: M ED 19:07 → M ED INP 22:26 → M PCU 11-09 00:59 → M MSPAV 11-09 14:12
PROVIDERS: ADMIT Family Medicine; ATTEND Family Medicine
PROC: 30233N1 Transfusion of Nonautologous Red Blood Cells into Peripheral Vein, Percutaneous Approach (ICD-10-PCS; principal; 2020-11-10)
DX: E11.65 Type 2 diabetes mellitus with hyperglycemia (principal); G93.41 Metabolic encephalopathy; I13.0 Hypertensive heart and chronic kidney disease with heart failure and stage 1 through stage 4 chronic kidney disease, or unspecified chronic kidney disease; I50.32 Chronic diastolic (congestive) heart failure; K92.2 Gastrointestinal hemorrhage, unspecified; K86.0 Alcohol-induced chronic pancreatitis; E11.21 Type 2 diabetes mellitus with diabetic nephropathy; E11.40 Type 2 diabetes mellitus with diabetic neuropathy, unspecified; N18.30 Chronic kidney disease, stage 3 unspecified; J44.9 Chronic obstructive pulmonary disease, unspecified; E11.610 Type 2 diabetes mellitus with diabetic neuropathic arthropathy; E11.621 Type 2 diabetes mellitus with foot ulcer; I48.0 Paroxysmal atrial fibrillation; K21.9 Gastro-esophageal reflux disease without esophagitis; I25.10 Atherosclerotic heart disease of native coronary artery without angina pectoris; M10.9 Gout, unspecified; F41.9 Anxiety disorder, unspecified; F32.9 Major depressive disorder, single episode, unspecified; E78.5 Hyperlipidemia, unspecified; Z89.421 Acquired absence of other right toe(s); Z79.82 Long term (current) use of aspirin; Z79.899 Other long term (current) drug therapy; G47.00 Insomnia, unspecified; Z79.4 Long term (current) use of insulin; Z85.828 Personal history of other malignant neoplasm of skin; Z96.641 Presence of right artificial hip joint; M17.12 Unilateral primary osteoarthritis, left knee; Z87.891 Personal history of nicotine dependence

== ENCOUNTER 2020-12-16 02:59 | Inpatient (IN) | payer MEDICARE, OTHER ==
[~2020-12-16] VITALS: Ht 190.5 cm; Wt 68.5 kg
[~2020-12-16 02:59] MED LIST changes: +GLUC1KIT IM; +RAME8TAB2 PO; +SANT250O8 TOP
--- OUTSIDE RECORDS SUMMARY | 2020-12-16 03:06 | CCD | Continuity of Care Document ---
Author Author Eran SOSA MD Organization Unknown Address [address] [place] [address], [address] [place] [address] Phone [phone] Care Team Providers Care Chief Psychologist Name Role Phone Manny Mendez MD AUTM [phone] Josefina Torrez AUTM [phone] Problems Active Problems Provider Date Type 1 [...] 12/30/2015 Age-related osteoporosis without current pathological fracture Deborha Sosa MD Onset: 12/30/2015 Paroxysmal atrial fibrillation [...] SIG Qnty Indications Ordering Provide r Date Glucagon Emergency Kit For Low Blood Sug ar 1mg/ml Solution Rec use as needed for hypoglycemia 2units E10.65 Deborah Sosa MD 11/01/2020 Humalog Kwikpen 100U nit/ML Solution Pen-Inject use as directed per sliding scale maximum daily dose = 30 un its 30ml E10.649 Deborah Sosa MD 11/01/2020 Baqsimi Two Pack 3mg/Dose Powder use as directed for low blood sugar, eat after 1units Deborah Sosa MD 07/29/2019 Euflexxa 20mg/2ML Soln Prefill Syr chalo inject as directed Unknown 05/20/2018 Bupropion HCL ER (XL) 300mg Tablets ER 24HR 1 by mouth daily. Unknown 05/20/2018 Pen [place] 32G X 4 mm Misc use 4 times day with tresiba e11.65 400units E10.65 Deborah Sosa MD 11/2016 Tresiba Flextouch 10 0Unit/ML Solution Pen-Inject use as directed 32 units once daily 30ml E10.65 Luis Alberto Sosa MD 12/21/2016 Insulin Syringe/0.3ML/31G X 5/16" 31G X 516" 0.3 ML Misc use as directeds 4 x per day 400units E10.65 Deborah Sosa MD 11/13/2016 Cetirizine HCL 10mg Tablets 1 by mouth every day Unknown 05/14/2016 Onetouch Ultra Blue Strips test four times a day as needed 400units Deborah Sosa MD 2011 Proventil HFA 108(90Base) mcg/Act Aerosol 2 puffs prn Arianna Yanes PA 04/17/2011 Allopurinol 100mg Tablets 1/2 every other day Deborah Sosa MD 09/05/2010 Pravachol 20mg Tablets 1 by mouth daily 90tabs Froilan Hughes MD 04/14/2008 Pen [place] B-D Ultrafine Short Use as Directed 100units [...] In House Hemoglobin A1c 12.0 Glucose 185 Procedures Date Code Description Status 08/20/2020 06948 Amb Glucose Monitoring Interpret ation And Report Completed 05/18/2020 793040435 Diabetic Foot Exam Completed Medical Devices Description No Information Available Encounters Type Date Location Provider Dx Diagnosis Office Visit 11/01/2020 10:30a DR. Deborah Sosa MD E 10.65 Type 1 diabetes mellitus with hyperglycemia Z91.19 Patient's noncompliance w ot h medical treatment and regimen M80.051A Age-rel osteopor w current p ath fracture, right femur, init Office Visit 08/20/2020 1:30p DR. Deborah Sosa [...] fracture Deborah Sosa MD Plan of Treatment Future Appointment(s):* 12/30/2020 11:45 am - Deborah Sosa MD at DR. Deborah Sosa 11/01/2020 - Deborah Sosa MD* E10.65 Type 1 diabetes mellitus with hyperglycemia* New Medication:* Glucagon Emergency Kit For Low Blood Sugar 1 mg/ml - use as needed for hypoglycemia * Comments:* out of office a1c=9 ( 10/19/2020) 08/20/2020: llast a1c=12 up from 8.9,++++ his friend ( unoffical guardian) comes in with him today.His friend reports that Mark Barillas had been hospitalized and then was in rehabilitation at [facility]. He unfortunately left AGAINST MEDICAL ADVICE. He has been unable to care for himself and his who is chronically ill also has been unable to care for them. The friend assumed care of Eran and his . They "do not know anything about diabetes" he has been trying to give him low sugar high protein food and follow a keto diet.- seen by Milena Porter the other day- wound is smaller- has appt with Dr. Woodard this week- they were unable to get him home healthcare because he signed out AMA.prior A1c= 8.9%, 12.8 (January 2020), 10.5% ,8.2 up slightly from 7.9 Prior A1c :12.2 9.4% ,9.1% 8.5% ,7.4% ,.7.4 9.1%, Current medication: Tresiba , 14 units, in am, Humalog 5 units in am 5 at dinnerRecommendations: I had a lengthy discussion with the caregiver and with Eran. Explained that Eran has never been under good diabetic control despite having a continuous glucose monitor. He is constantly running his blood sugars high. The caregiver states that he has actually been O however the download of his meter only shows high blood sugars. He states that EMS has been called and he has had low blood sugars m ultiple times this week though it is not documented. 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 They also report that he has been having problems with hallucinations. Apparently Eran is aware that he is seeing things and thinking things that are not actually happening. I tried to explain to the caregiver how the DEXCOM CGM works. Eran has not been using it since he lost the power cords. They are rectifying that situation today. I showed him examples of the continuous glucose monitor download and what he can expect to see. Advissed that he can also become a user on the account. We discussed that we should set a low threshold at 120 so that if he sees a low blood sugar he can call Eran and advised him to drink some juice or milk. For now the caregiver is making him breakfast every day and making sure that he is dinner. Eran and his are receiving Meals on Wheels for lunch but not in a significant portion. They removed all alcohol from the home which used to be problematic. In addition the caregiver states that he has had gastric bypass and this is therefore a concept he understands. I asked him if he could get back in touch with Dr. Zarate office to try to get home health aids in and he says that they have exhausted every avenue to try to make this happen. for now the goal for his blood sugars are 180-to 20. He wants to avoid hypoglycemia. Advise the isaen d/caregiver to contact our office to help set up the DEXCOM if need be. I have written out a new sliding scale Eran failed to really use the sliding scale in the past. Advised to call of hypoglycemia is a recurrent issue.Follow-up 6 weeks++ will change to all pen devices+++ * Follow up:* 2 months- * Z91.19 Patient's noncompliance with other medical treatment and regimen* Comments:* Patient not using his DEXCOM meter download shows marked hyperglycemia due to noncompliance with taking insulin * M80.051A Age-related osteoporosis with current pathological [...] to be < 8% for surgery clearance. is in wheelchair today- cannot walk Functional Status Description No Information Available Mental Status Description No Information Available Referrals Description No Information Available
--- OUTSIDE RECORDS SUMMARY | 2020-12-16 03:06 | CCD ---
Author Author [facility] Organization [facility] Address Unknown Phone Unavailable Care Team Providers Care Competitive Intelligence Analyst Name Role Phone Misha Woodard Unavailable PROBLEMS Type Condition ICD9-CM Code [id number] Code Onset Dates Condition S tatus SNOMED Code Notes Problem Hypertensive heart disease without heart failure I 11.9 Active 98382411 Problem Vitamin D deficiency, unspecified E55.9 Active 94593644 Problem Diastolic CHF with preserved left ventricular fu nction, NYHA class 2 I50.30 Active 159425132 Problem Type 2 diabetes mellitus with diabetic nephropathy E11.21 Active 362322027 Problem Major depressive disorder, single episode, unspecified F32.9 Active 34707644 Problem Closed right hip fracture S72.001A Active 08711 7006 Problem Allergic rhinitis J30.9 Active 39388890 Problem Erectile dysfunction N52.9 Active 787040454 Problem Unspecified atrial fibrillation I48.91 Active 90968130 Problem Hypomagnesemia E83.42 Active 251024838 Problem Iron deficiency anemia due to chronic blood loss D 50.0 Active 260230756 Problem Gastroesophageal reflux disease without esophagitis K21.9 Active 499197351 Problem Type 2 diabetes mellitus with foot ulcer E11.621 Active 553009994 Problem Paroxysmal atrial fibrillation I48.0 Active 2 89223048 Problem Gout, unspecified M10.9 Active 22675128 Problem Frequent falls R29.6 Active 217197904 Problem Left-sided tinnitus H93.12 Active 57920758 Problem Chronic kidney disease, stage 2 (mild) N18.2 A ctive 128256201 Problem Chronic obstructive pulmonary disease, unspecified J44.9 Active 26450791 Problem Neuropathy G62.9 Active 201531721 Problem Medicare annual wellness visit, subsequent Z00.00 Active 008052012 Problem Balanitis N48.1 Active 53636584 Problem 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 Active 020587561 ALLERGIES Allergen (clinical drug ingredient) Drug/Non Drug Allergy do cumented on EMR Reaction Allergy Type Onset Date Status Environmental Unknown Non Drug Allergy Activ e ENCOUNTERS from 1950 to 2020-11-15 Encounter Location Date Provider Diagnosis [facility] [address] [place] [address] Oct Misha Woodard IMMUNIZATIONS Vaccine Route Administration Date Status Influenza [...] Notes Start Da te End Date Status Cefdinir 300 MG TAKE TWO CAPSULES BY MOUTH EVERY DAY Oral for 4 Not-Taking Magnesium Oxide 400 MG 1 tablet Orally three times daily Active Tylenol 325 MG 1 tablet as needed Orally every 4 hrs for pain/fever Active Pradaxa 150 MG 1 capsule Orally Twice a day Active Disposable Enema 19-7 gram/118mL 1 unit per rectum as needed daily for contipation Active Humalog 100 UNIT/ML slidind scale Subcutaneous t hree times per day before meals and once before bed Active Milk of Magnesia 2400 MG/10ML 10 ml Orally daily as needed for cons tipation Active Folic Acid 400 MCG 1 tablet Orally Once a day for 30 day(s) Active Dulcolax 10 MG 1 suppository as needed Rectal Once a day for 30 day(s ) Active Omeprazole 40 MG 1 capsule 30 minutes before morning meal Orally Once a day for 30 day(s) Active BuPROPion HCl ER (XL) 300 MG 1 tablet in the morning Orally Once a da y Active Vitamin D 1000 UNIT 1 tablet Orally Once a day Active Metoprolol Succinate 50 mg 1 tablet Orally twice a day Active Allopurinol 100 MG 1/2 tablet Orally every other day Active Tresiba FlexTouch 100 UNIT/ML 14 units Subcutaneous Daily Active Pravastatin Sodium 20 MG 1 tablet Orally Once a day Active Aspirin 81 MG 1 tablet Orally Once a day Active Lisinopril 20 MG 1 tab Orally Daily Active Nasonex 50 MCG/ACT 2 sprays in each nostril Nasally Once a day as nee ded Active Wheelchair - g62.9; e11.62 _ Daily for 90 day(s) Sep, 020 Active FLUoxetine HCl 20 MG 1 capsule in the morning Orally Once a day Active Vitamin B 12 500 MCG 2 tablets Orally Once a day Active Symbicort 80-4.5 MCG/ACT 2 puffs Inhalation Twice a day for 30 d ays Mar, Active PROCEDURES No Information RESULTS No Results REASON FOR VISIT CX C APPT MEDICAL (GENERAL) HISTORY Type Description Date Medical [...] cell ca skin - followed by Derm wildlife ecology professor. Medical History chronic neck and back pain - Lumbar/Cervical DDD - Per Dr. Trujillo and Dr. Perez (pain management) Medical History Left knee arthritis - follow ed by Dr.S Caldwell - s/p viscosupplementation Medical History Diabetic foot ulcers - s/p 2 nd toe partial amputation by Dr. Sherman Surgical History Tonsillectomy 1953 Surgical History Adenoidectomy 1953 Surgical History Hemorrhoidectomy 1198 Surgical History Hernia Repair 1984 Surgical History Left knee arthroscopy 1995 Surgical History Cardiac Catheterization 1995 Surgical History Tracheotomy 1998 Surgical History Colonoscopy - Adenomatous colon polyp ([facility]) 05/2014 Surgical History right hip repair [...] Information ASSESSMENTS No Information PLAN OF TREATMENT No Information Insurance Providers Payer Name Payer Address Payer Phone Insured Name Patient Relati onship to Insured Coverage Start Date Coverage End Date MEDICARE Part A and B [address] [facility] [id number] CHACHO RING [facility] [address] [id number] [facility] [phone] CHACHO RING
--- OUTSIDE RECORDS SUMMARY | 2020-12-16 03:07 | CCD ---
Author Author [facility] Organization [facility] Address Unknown Phone Unavailable Care Team Providers Care Corset Maker Name Role Phone Mohan Torrez Unavailable PROBLEMS Type Condition ICD9-CM Code [id number] Code Onset Dates Condition S tatus SNOMED Code Notes Problem Hypertensive heart disease without heart failure I 11.9 Active 52188690 Problem Vitamin D deficiency, unspecified E55.9 Active 98805322 Problem Diastolic CHF with preserved left ventricular fu nction, NYHA class 2 I50.30 Active 139558124 Problem Type 2 diabetes mellitus with diabetic nephropathy E11.21 Active 534941242 Problem Major depressive disorder, single episode, unspecified F32.9 Active 49058641 Problem Closed right hip fracture S72.001A Active 35929 7006 Problem Allergic rhinitis J30.9 Active 60134172 Problem Erectile dysfunction N52.9 Active 405480537 Problem Unspecified atrial fibrillation I48.91 Active 07124659 Problem Hypomagnesemia E83.42 Active 019962317 Problem Iron deficiency anemia due to chronic blood loss D 50.0 Active 598700555 Problem Gastroesophageal reflux disease without esophagitis K21.9 Active 142814472 Problem Type 2 diabetes mellitus with foot ulcer E11.621 Active 828887303 Problem Paroxysmal atrial fibrillation I48.0 Active 2 13451817 Problem Gout, unspecified M10.9 Active 81432909 Problem Frequent falls R29.6 Active 909809444 Problem Left-sided tinnitus H93.12 Active 03299441 Problem Chronic kidney disease, stage 2 (mild) N18.2 A ctive 793184627 Problem Chronic obstructive pulmonary disease, unspecified J44.9 Active 37528287 Problem Neuropathy G62.9 Active 579625180 Problem Medicare annual wellness visit, subsequent Z00.00 Active 570426409 Problem Balanitis N48.1 Active 43375133 Problem 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 Active 533090949 ALLERGIES Allergen (clinical drug ingredient) Drug/Non Drug Allergy do cumented on EMR Reaction Allergy Type Onset Date Status Environmental Unknown Non Drug Allergy Activ e ENCOUNTERS from 1950 to 2020-11-12 Encounter Location Date Provider Diagnosis [facility] [address] [place] [address] 13 Oct, 2020 Loc Torrez Medicare annual wellness visit, subsequent Z00.00 ; Type 2 diabetes mellitus with diabetic nephropathy E11.21 ; Home environment related disease R69 ; Hypertensive heart disease without heart failure I11.9 ; Type 2 diabetes mellitus with foot ulcer E11.621 and Neuropathy G62.9 IMMUNIZATIONS Vaccine Route Administration Date Status Influenza [...] Information VITAL SIGNS Weight 158 lbs Oct, Height 76" in Oct, BMI 19.23 kg/m2 Oct, Heart Rate 91 /min Oct, Respiratory Rate 18 /min Oct, Temperature 97.1 degrees Fahrenheit Oct, Oximetry 100 Oct, Blood pressure systolic 134 mm Hg Oct, Blood pressure diastolic 78 mm Hg Oct, MEDICATIONS Medication SIG (Take, [...] e11.62 _ Daily for 90 day(s) Sep, 2 020 Active FLUoxetine HCl 20 MG 1 capsule in the morning Orally Once a day Active Vitamin B 12 500 MCG 2 tablets Orally Once a day Active Symbicort 80-4.5 MCG/ACT 2 puffs Inhalation Twice a day for 30 d ays Mar, Active PROCEDURES No Information RESULTS No Results REASON FOR VISIT [facility] ER/ hallucinations seeing things MEDICAL (GENERAL) HISTORY Type Description Date Medical [...] cell ca skin - followed by Derm geological scout. Medical History chronic neck and back pain [...] Surgical History Colonoscopy - Adenomatous colon polyp ([facility]) 05/2014 Surgical History right hip repair [...] Treatment Notes Treatm ent Clinical Notes Oct, Medicare annual wellness visit, subsequent (ICD- 10 - Z00.00) age appropriate anticipatory guidance given, per USPSTF recommendations; immunizations up to date. discussed plans for implementing improvement in identified areas Oct, Type 2 diabetes mellitus wit h diabetic nephropathy (ICD-10 - E11.21) Oct, Home environment related disease (ICD-10 - R69) has MS, is "total care" per Chacho and caregiver. I have in past and again today advised placement. he refuses, has capacity to refuse. Oct, Hypertensive heart disease without heart failure (ICD-10 - I11.9) Oct, Type 2 diabetes mellitus with foot ulcer (ICD-10 - E11.621) needs a power wheelchair. Advised needs FTF with appropriate forms from [employer] Oct, Neuropathy (ICD-10 - G62.9) PLAN OF TREATMENT Treatment Notes Assessment Notes Clinical Notes Medicare annual wellness visit, subsequent age appropriate anticipatory guidance given, per USPSTF recommendations; immunizations up to date. discussed plans for implementing improvement in identified areas Home environment related disease bridges s MS, is "total care" per Chacho and caregiver. I have in past and again today advised placement. he refuses, has capacity to refuse. Type 2 diabetes mellitus with foot ulcer needs a power wheelchair. Advised needs FTF with appropriate forms from [employer] Next Appt Details 3 Months Reason: Insurance Providers Payer Name Payer Address Payer Phone Insured Name Patient Relati onship to Insured Coverage Start Date Coverage End Date MEDICARE Part A and B [address] [facility] [place] [address] [phone] CHACHO RING self [facility] [address] [address] [facility] [id number] CHACHO RING self
--- OUTSIDE RECORDS SUMMARY | 2020-12-16 03:07 | CCD ---
Author Author [facility] Organization [facility] Address Unknown Phone Unavailable Care Team Providers Care Contract Engineer Name Role Phone Misha Woodard Unavailable PROBLEMS Type Condition ICD9-CM Code [id number] Code Onset Dates Condition S tatus SNOMED Code Notes Problem Hypertensive heart disease without heart failure I 11.9 Active 79640722 Problem Vitamin D deficiency, unspecified E55.9 Active 23933534 Problem Diastolic CHF with preserved left ventricular fu nction, NYHA class 2 I50.30 Active 475020309 Problem Type 2 diabetes mellitus with diabetic nephropathy E11.21 Active 432553378 Problem Major depressive disorder, single episode, unspecified F32.9 Active 70857286 Problem Closed right hip fracture S72.001A Active 23213 7006 Problem Allergic rhinitis J30.9 Active 65828030 Problem Erectile dysfunction N52.9 Active 066209951 Problem Unspecified atrial fibrillation I48.91 Active 84546666 Problem Hypomagnesemia E83.42 Active 386034931 Problem Iron deficiency anemia due to chronic blood loss D 50.0 Active 095029635 Problem Gastroesophageal reflux disease without esophagitis K21.9 Active 478900933 Problem Type 2 diabetes mellitus with foot ulcer E11.621 Active 107691061 Problem Paroxysmal atrial fibrillation I48.0 Active 2 77284311 Problem Gout, unspecified M10.9 Active 74071794 Problem Frequent falls R29.6 Active 620106100 Problem Left-sided tinnitus H93.12 Active 89776384 Problem Chronic kidney disease, stage 2 (mild) N18.2 A ctive 658104096 Problem Chronic obstructive pulmonary disease, unspecified J44.9 Active 69583498 Problem Neuropathy G62.9 Active 154757653 Problem Medicare annual wellness visit, subsequent Z00.00 Active 252773420 Problem Balanitis N48.1 Active 97917901 Problem 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 Active 764340791 ALLERGIES Allergen (clinical drug ingredient) Drug/Non Drug Allergy do cumented on EMR Reaction Allergy Type Onset Date Status Environmental Unknown Non Drug Allergy Activ e ENCOUNTERS from 1950 to 2020-11-13 Encounter Location Date Provider Diagnosis [facility] [address] [place] [address] 13 Oct Misha Woodard Type 2 diabetes mellitus with foot ulcer [...] Oct, BMI 19.23 kg/m2 Oct, Heart Rate 92 /min Oct, Respiratory Rate 18 /min Oct, Temperature 97.2 degrees Fahrenheit Oct, Oximetry 100 Oct, Blood pressure systolic 154 mm Hg Oct, Blood pressure diastolic 84 mm Hg Oct, MEDICATIONS Medication SIG (Take, [...] _ Daily for 90 day(s) Sep, Active FLUoxetine HCl 20 MG 1 capsule in the morning Orally Once a day Active Vitamin B 12 500 MCG 2 tablets Orally Once a day Active Symbicort 80-4.5 MCG/ACT 2 puffs Inhalation Twice a day for 30 d ays Mar, Active PROCEDURES from 1950 to 2020-11-13 Procedure Date Ordered Result Body Site Medication: 4% Lidocaine topical cream (Anecream) 2020-11-03 N/A RESULTS No Results REASON FOR VISIT Left heel MEDICAL (GENERAL) HISTORY Type Description Date Medical History Pancreatitis Medical History Cardiomyopathy (resolved by 2018) Echo 2010 - LVH, normal LV systolic [...] cell ca skin - followed by Derm lens grinder. Medical History chronic neck and back pain [...] Surgical History Colonoscopy - Adenomatous colon polyp ([facility]) 05/2014 Surgical History right hip repair s/p [...] E11.610) PLAN OF TREATMENT Next Appt Details 2 Weeks Reason: Insurance Providers Payer Name Payer Address Payer Phone Insured Name Patient Relati onship to Insured Coverage Start Date Coverage End Date MEDICARE Part A and B [address] [facility] [phone] CHACHO RING self [facility] [address] [id number] [facility] [address] CHACHO RING self
--- OUTSIDE RECORDS SUMMARY | 2020-12-16 03:07 | CCD | Continuity of Care Document ---
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 Name Role Phone Joaquín BUCKNER Arianna AUTM [phone] Josefina Modi AUTGaby [phone] Problems Active Problems Provider Date Type 1 diabetes mellitus with diabetic polyneuropathy David Burdick DPM Onset: 05/13/2020 Onychomycosis David Burdick DPM Onset: 08/17/2020 Resolved Problems Pressure ulcer of left heel, stage 2 David Burdick DPM On set: 05/13/2020 Resolved: 05/13/2020 Pressure ulcer of left heel, stage 4 David Burdick DPM On set: 05/13/2020 Resolved: 05/23/2020 Cellulitis of left lower limb David Burdick DPM Onset: Resolved: 08/17/2020 Pressure ulcer of other site, stage 2 David Burdick DPM O nset: 05/23/2020 Resolved: 08/17/2020 Social History Type Date Description Comments Sex Unknown ETOH Use Currently consumes alcohol Has m aybe 2 glasses a night. Tobacco Use Start: Unknown End: Unknown Patient is a former smoker Started at the age of 18 and quit about the age of 50. Smoked 1 packa week. Allergies, Adverse Reactions, Alerts Description No Known Drug Allergies Medications Active Medications SIG Qnty Indications Ordering Provide r Date Levofloxacin 750mg Tablets 1 by mouth every day 14tabs David Burdick DPM 06/04/2020 Ammonium Lactate 12% Cream apply to feet daily 140gm David Burdick, RUTHM 12/23/2019 Linezolid 600mg Tablets 1 by mouth twice a day 28tabs David Burdick, RUTHM 09/26/2019 Sivextro 200mg Tablets a tablet by mouth daily 6tabs David Burdick, RUTHM 08/28/2019 Zofran 4mg Tablets 1 tablet every 6 hours as needed for nausea 16tabs David Burdick, RUTHM 2018 Tresiba Flextouch 10 0Unit/ML Solution Pen-Inject Use as Directed 32 Units Under The Skin Daily Unknown Pravastatin Sodium 20mg Tablets Take One Tablet By Mouth Every Day Unknown Humalog 100Unit/ML Solution Use as Directed Per Sliding Scale Maximum Daily Dose 30 Units Open New Bottleeach Month Unknown Esomeprazole Magnesium 40mg Capsul es DR Take One Capsule By Mouth Every Morning Unknown Onetouch Ultra Blue Strips Test Four Times A Day as Needed Unknown Tadalafil 20mg Tablets Take 1 Tablet By Mouth as Directed Unknown Fluzone High-Dose 0.5ml Leonor Inject 0.5ML Intramuscularly Unknown Prevnar 13 Suspension Inject 0.5ML Intramuscularly Unknown Lansoprazole 30mg Capsules Josefina Griffin Cephalexin 500mg Capsules Take One Capsule By Mouth Twice A Day Unknown Mometasone Furoate 50mcg/Act Suspe nsion Avella Two Sprays In Each Nostril Every Day Unkno wn Ventolin HFA 108(90Base) mcg/Act A erosol Inhale Two Puffs By Mouth Every 6 Hours as Needed For Wheezing Or For Shortness Of Breath Unknown Doxycycline Hyclate 100mg Tablets Take One Tablet By Mouth Twice A Day For 10 Days Unknown Baqsimi Two Pack 3mg/Dose Powder Use as Directed For Low Blood Eat After Unknown Magnesium Oxide 400(241.3Mg) mg Ta blets Take One Tablet By Mouth Three Times A Day Unkno wn Ranitidine HCL 150mg Tablets Take One Tablet By Mouth Twice A Day Unknown Symbicort 80-4.5mcg/Act Aerosol Inhale Two Puffs By Mouth Twice A Day Unknown Acetaminophen-Codeine #3 300-30mg Tablets Take One Tablet By Mouth Every 6 Hours as Needed For Pain Maximum Daily Dose 4 Unknown Sulfamethoxazole/Trimethoprim DS 800-160mg Tablets Take One Tablet By Mouth Twice A Day Unkn own Sildenafil Citrate 100mg Tablets Josefina Modi Pradaxa 150mg Capsules Unknown Metoprolol Succinate ER 50mg Tablets ER 24HR Unknown Fluoxetine HCL 20mg Capsules Unknown Allopurinol 100mg Tablets Marcus Morales M.D. Lisinopril 20mg Tablets Unknown Bupropion Hydrochloride ER (XL) 300mg Tablets ER 24HR Unknown Immunizations Description No Information Available Vital Signs Date Vital Result Comment 07/02/2019 10:30am Height 74 inches 6'2" Weight 183.00 lb BP Systolic 110 mmHg BP Diastolic 90 mmHg Heart Rate 60 /min BMI (Body Mass Index) 23.5 kg/m2 01/18/2015 9:33am Pain Level 0 Results Test Acquired Date Facility Test Result H/L Range Note Wound Culture 06/01/2020 [facility] Wound Culture FULL REPORT IN L <SEE NOTE> Normal 1 1 FULL REPORT IN LAB NOTES (eC W and Med[facility]). ORGANISM 1: ENTEROBACTER CLOACAE COMPLEX QUANTITY OF GROWTH FEW ORGANISM 2: ESCHERICHIA COLI QUANTITY OF GROWTH FEW ORGANISM 3: STREPTOCOCCUS MITIS QUANTITY OF GROWTH FEW ORGANISM 4: YEAST LIKE ORGANISM QUANTITY OF GROWTH FEW ORGANISM 1: ENTEROBACTER CLOACAE COMPLEX ORGANISM 2: ESCHERICHIA COLI ORGANISM 3: STREPTOCOCCUS MITIS ORGANISM 4: YEAST LIKE ORGANISM ENTEROBACTER CLOACAE COMPLEX: REACTION TRIMETHOPRIM/SULFAMETHOXAZOLE IV 160mg TMP & 800mg SMXq6h <=20 S TRIMETHOPRIM/SULFAMETHOXAZOLE PO Bactrim DS Bid <=20 S GENTAMICIN IV 80mg q8h <=1 S CEFAZOLIN IV 1gm q8h >=64 R LEVOFLOXACIN IV 500mg qd <=0.12 S LEVOFLOXACIN PO 250mg qd <=0.12 S LEVOFLOXACIN PO 500mg qd <=0.12 S TOBRAMYCIN IV 80mg q8h <=1 S CEFTRIAXONE IV 1gm q24h <=1 S CEFTAZIDIME IV 1gm q8h <=1 S PIPERACILLIN/TAZOBACTAM IV 2.25 gm q6h <=4 S AZTREONAM IV 1gm q8h <=1 S ERTAPENEM IV 1gm qd <=0.5 S MEROPENEM IV 1 gm q8h <=0.25 S MEROPENEM IV 500 mg q8h <=0.25 S TIGECYCLINE IV 50mg q12h 2 S CEFEPIME IV 1 gm q12h <=1 S CEFEPIME IV 2 gm q12h <=1 S ESCHERICHIA COLI: REACTION TRIMETHOPRIM/SULFAMETHOXAZOLE IV 160mg TMP & 800mg SMXq6h <=20 S TRIMETHOPRIM/SULFAMETHOXAZOLE PO Bactrim DS Bid <=20 S AMPICILLIN IV 500mg q6h 16 I AMPICILLIN PO 500mg q6h fasting 16 I GENTAMICIN IV 80mg q8h <=1 S CEFAZOLIN IV 1gm q8h <=4 S LEVOFLOXACIN IV 500mg qd <=0.12 S LEVOFLOXACIN PO 250mg qd <=0.12 S LEVOFLOXACIN PO 500mg qd <=0.12 S TOBRAMYCIN IV 80mg q8h <=1 S CEFTRIAXONE IV 1gm q24h <=1 S CEFTAZIDIME IV 1gm q8h <=1 S AMPICILLIN/SULBACTAM IV 1.5g q6h 4 S PIPERACILLIN/TAZOBACTAM IV 2.25 gm q6h <=4 S AZTREONAM IV 1gm q8h <=1 S ERTAPENEM IV 1gm qd <=0.5 S MEROPENEM IV 1 gm q8h <=0.25 S MEROPENEM IV 500 mg q8h <=0.25 S TIGECYCLINE IV 50mg q12h <=0.5 S CEFEPIME IV 1 gm q12h <=1 S CEFEPIME IV 2 gm q12h <=1 S EXTD BRD SPCTRM BETA LACTAMASE IV NEGATIVE FOR ESBL STREPTOCOCCUS MITIS: REACTION TETRACYCLINE PO 250 mg qid 0.5 S PENICILLIN G IV 1 mu q6H 0.12 S PENICILLIN G IV 1 mu q6h 0.12 S PENICILLIN G PO 250mg q6h fasting 0.12 S AMPICILLIN IV 500mg q6h <=0.25 S AMPICILLIN PO 500mg q6h fasting <=0.25 S CLINDAMYCIN IV 600mg q6h <=0.25 S CLINDAMYCIN PO 150mg q6h <=0.25 S LEVOFLOXACIN IV 500mg qd 1 S LEVOFLOXACIN PO 250mg qd 1 S LEVOFLOXACIN PO 500mg qd 1 S VANCOMYCIN IV 500mg q8h 0.5 S MOXIFLOXACIN (AVELOX) IV 400MG QD 0.12 S MOXIFLOXACIN (AVELOX) PO 400MG QD 0.12 S CEFTRIAXONE IV 1gm q24h 0.25 S CEFOTAXIME IV 1gm q8h <=0.12 S Procedures Date Code Description Status 10/26/2020 29755 Debridement 6-10 Nails Electric Completed 08/28/2020 69341 Deep Dissection Belo w Fascia Foot Infection Bursal Space Single Completed 08/03/2020 61432 Debridement 5 Nails Electric Com pleted 06/07/2020 43219 X-Ray Foot Complete Completed 06/01/2020 93255 Debridement Skin/Tissue Complete d 05/25/2020 66456 Debridement Skin/Tissue Complete d 05/14/2020 05800 Debridement Skin/Tissue Complete d Medical Devices Description No Information Available Encounters Type Date Location Provider Dx Diagnosis Office Visit 06/24/2020 1:30p [facility] David Burdick DPM E10.621 Type 1 diabetes mellitus with foot ulcer L89.891 Pressure ulcer of other site , stage 1 Office Visit 06/07/2020 1:15p [facility] David Burdick DPM E10.621 Type 1 diabetes mellitus with foot ulcer L89.624 Pressure ulcer of left heel, stage 4 Assessments Date Code Description Provider 10/26/2020 B35.1 Tinea unguium David Burdick DPM 10/26/2020 E10.42 Type 1 diabetes mellitus with di abetic polyneuropathy David Burdick DPM 08/29/2020 M86.172 Other acute osteomyelitis, left ankle and foot David Burdick DPM 08/29/2020 E11.621 Type 2 diabetes mellitus with fo ot ulcer David Burdick DPM 08/29/2020 L89.624 Pressure ulcer of left heel, sta ge 4 David Burdick, DPM 08/29/2020 S92.015K Nondisplaced fractur e of body of left calcaneus, subsequent encounter for fracture with nonunion David Burdick, DPM 08/28/2020 M86.172 Other acute osteomyelitis, left ankle and foot David Burdick, DPM 08/28/2020 E11.621 Type 2 diabetes mellitus with fo ot ulcer David Burdick, DPM 08/28/2020 L89.624 Pressure ulcer of left heel, sta ge 4 David Burdick, DPM 08/27/2020 M86.172 Other acute osteomyelitis, left ankle and foot David Burdick, DPM 08/27/2020 E11.621 Type 2 diabetes mellitus with fo ot ulcer David Burdick, DPM 08/27/2020 L89.624 Pressure ulcer of left heel, sta ge 4 David Burdick, DPM 08/27/2020 S92.015K Nondisplaced fractur e of body of left calcaneus, subsequent encounter for fracture with nonunion David Burdick, DPM 08/03/2020 B35.1 Tinea unguium David Burdick, DPM 08/03/2020 E10.42 Type 1 diabetes mellitus with di abetic polyneuropathy David Burdick, DPM 06/24/2020 E10.621 Type 1 diabetes mellitus with fo ot ulcer David Burdick, DPM 06/24/2020 L89.891 Pressure ulcer of other site, st age 1 David Burdick, DPM 06/07/2020 E10.621 Type 1 diabetes mellitus with fo ot ulcer David Burdick, DPM 06/07/2020 L89.624 Pressure ulcer of left heel, sta ge 4 David Burdick, DPM 06/01/2020 E10.621 Type 1 diabetes mellitus with fo ot ulcer David Burdick, DPM 06/01/2020 L89.894 Pressure ulcer of other site, st age 4 David Burdick, DPM 05/25/2020 E11.621 Type 2 diabetes mellitus with fo ot ulcer David Burdick, DPM 05/25/2020 L89.622 Pressure ulcer of left heel, sta ge 2 David Burdick DPM 05/14/2020 E11.621 Type 2 diabetes mellitus with fo ot ulcer David Burdick DPM 05/14/2020 L89.892 Pressure ulcer of other site, st age 2 David Burdick DPM Plan of Treatment Future Appointment(s):* 12/29/2020 2:00 pm - David Burdick DPM at [facility] Functional Status Description No Information Available Mental Status Description No Information Available Referrals Description No Information Available
--- OUTSIDE RECORDS SUMMARY | 2020-12-16 03:10 | CCD ---
Author Author [facility] Organization [facility] Address Unknown Phone Unavailable Care Team Providers Care Pop Singer Name Role Phone [facility] [place] Unavailable Unavailable Symenow, Malathi Colin PA Unavailable Unavailable Symenow, Malathi Colin PA Unavailable Unavailable Symenow, Malathi Colin PA Unavailable Unavailable Symenow, Malathi Colin PA Unavailable Unavailable Symenow, Malathi Colin PA Unavailable Unavailable Symenow, Malathi Colin PA Unavailable Unavailable Symenow, Malathi Mohamude PA Unavailable Unavailable Symenow, Malathi Mohamude PA Unavailable Unavailable Symenow, Malathi Colin PA Unavailable Unavailable Symenow, Malathi Dixie PA Unavailable Unavailable Symenow, Malathi Colin PA Unavailable Unavailable Symenow, Malathi Dixie PA Unavailable Unavailable Symenow, Malathi Dixie PA Unavailable Unavailable Symenow, Malathi Mohamude PA Unavailable Unavailable Symenow, Malathi Dixie PA Unavailable Unavailable Symenow, Malathi Dixie PA Unavailable Unavailable Symenow, Malathi Dixie PA Unavailable Unavailable Symenow, Malathi Dixie PA Unavailable Unavailable Symenow, Malathi Dixie PA Unavailable Unavailable Symenow, Malathi Dixie PA Unavailable Unavailable Symenow, Malathi Dixie PA Unavailable Unavailable Symenow, Malathi Dixie PA Unavailable Unavailable Symenow, Malathi Dixie PA Unavailable Unavailable Symenow, Malathi Colin PA Unavailable Unavailable Symenow, Malathi Colin PA Unavailable Unavailable Symenow, Malathi Colin PA Unavailable Unavailable Symenow, Malathi Colin PA Unavailable Unavailable Symenow, Malathi Colin PA Unavailable Unavailable Symenow, Malathi Colin PA Unavailable Unavailable Symenow, Malathi Colin PA Unavailable Unavailable Symenow, Malathi Colin PA Unavailable Unavailable Symenow, Malathi Colin PA Unavailable Unavailable Symenow, Malathi Colin PA Unavailable Unavailable Symenow, Malathi Colin PA Unavailable Unavailable Symenow, Malathi Colin PA Unavailable Unavailable Symenow, Malathi Colin PA Unavailable Unavailable Fish, [facility], PA-C Unavailable Unavailabl e Fish, [facility], PA-C Unavailable Unavailabl e Fish, [facility], PA-C Unavailable Unavailabl e Fish, [facility], PA-C Unavailable Unavailabl e Fish, [facility], PA-C Unavailable Unavailabl e Fish, [facility], PA-C Unavailable Unavailabl e Fish, [facility], PA-C Unavailable Unavailabl e Fish, [facility], PA-C Unavailable Unavailabl e Fish, [facility], PA-C Unavailable Unavailabl e Fish, [facility], PA-C Unavailable Unavailabl e Fish, [facility], PA-C Unavailable Unavailabl e Fish, [facility], PA-C Unavailable Unavailabl e Fish, [facility], PA-C Unavailable Unavailabl e Fish, [facility], PA-C Unavailable Unavailabl e Fish, [facility], PA-C Unavailable Unavailabl e Fish, [facility], PA-C Unavailable Unavailabl e Fish, [facility], PA-C Unavailable Unavailabl e Fish, [facility], PA-C Unavailable Unavailabl e Fish, [facility], PA-C Unavailable Unavailabl e Fish, [facility], PA-C Unavailable Unavailabl e Fish, [facility], PA-C Unavailable Unavailabl e Fish, [facility], PA-C Unavailable Unavailabl e Fish, [facility], PA-C Unavailable Unavailabl e Fish, [facility], PA-C Unavailable Unavailabl e Fish, [facility], PA-C Unavailable Unavailabl e Fish, [facility], PA-C Unavailable Unavailabl e Fish, [facility], PA-C Unavailable Unavailabl e Fish, [facility], PA-C Unavailable Unavailabl e Fish, [facility], PA-C Unavailable Unavailabl e Fish, [facility], PA-C Unavailable Unavailabl e Fish, [facility], PA-C Unavailable Unavailabl e Fish, [facility], PA-C Unavailable Unavailabl e Fish, [facility], PA-C Unavailable Unavailabl e Fish, [facility], PA-C Unavailable Unavailabl e Fish, B [...] Unavailable Fish, B Harry PHILIP Unavailable Unavailable SUNNOLAN Singh DO Unavailable Unavailable Oscar Falanga, A Kasey VAN OWNER OPERATOR Unavailable Unavailable Roswell Falanga, A Kasey VAN OWNER OPERATOR Unavailable Unavailable Oscar Falanga, A Kasey VAN OWNER OPERATOR Unavailable Unavailable Oscar Falanga, A Kasey VAN OWNER OPERATOR Unavailable Unavailable Oscar Falanga, A Kasey VAN OWNER OPERATOR Unavailable Unavailable Roswell Falanga, A Kasey VAN OWNER OPERATOR Unavailable Unavailable Roswell Falanga, A Kasey VAN OWNER OPERATOR Unavailable Unavailable Oscar Falanga, A Kasey VAN OWNER OPERATOR Unavailable Unavailable Oscar Falanga, A Kasey VAN OWNER OPERATOR Unavailable Unavailable Oscar Falanga, A Kasey VAN OWNER OPERATOR Unavailable Unavailable Roswell Falanga, A Kasey VAN OWNER OPERATOR Unavailable Unavailable Oscar Falanga, A Kasey VAN OWNER OPERATOR Unavailable Unavailable Roswell Falanga, A Kasey VAN OWNER OPERATOR Unavailable Unavailable Oscar Falanga, A Kasey VAN OWNER OPERATOR Unavailable Unavailable Roswell Falanga, A Kasey VAN OWNER OPERATOR Unavailable Unavailable Oscar Falanga, A Kasey VAN OWNER OPERATOR Unavailable Unavailable Oscar Falanga, A Kasey VAN OWNER OPERATOR Unavailable Unavailable Roswell Falanga, A Kasey VAN OWNER OPERATOR Unavailable Unavailable Roswell Falanga, A Kasey VAN OWNER OPERATOR Unavailable Unavailable Oscar Falanga, A Kasey VAN OWNER OPERATOR Unavailable Unavailable Roswell Falanga, A Kasey VAN OWNER OPERATOR Unavailable Unavailable Oscar Falanga, A Kasey VAN OWNER OPERATOR Unavailable Unavailable Roswell Falanga, A Kasey VAN OWNER OPERATOR Unavailable Unavailable Oscar Falanga, A Kasey VAN OWNER OPERATOR Unavailable Unavailable Oscar Falanga, A Kasey VAN OWNER OPERATOR Unavailable Unavailable Roswell Falanga, A Kasey VAN OWNER OPERATOR Unavailable Unavailable Roswell Falanga, A Kasey VAN OWNER OPERATOR Unavailable Unavailable Roswell Falanga, A Kasey VAN OWNER OPERATOR Unavailable Unavailable Oscar Falanga, A Kasey VAN OWNER OPERATOR Unavailable Unavailable Roswell Falanga, A Kasey VAN OWNER OPERATOR Unavailable Unavailable Fersavak, Juan M Marquez MD Unavailable Unavailable Ferenchak, [...] Marquez MD Unavailable Unavailable Ferenchak, Juan M Maruqez MD Unavailable Unavailable Ferenchak, Juan M Marquez [...] Ferenchak, Juan M Marquez MD Unavailable Unavailable ELLANACHO Longoria MD Unavailable Unavailable ANTECOL, Julienne FRANKLIN MD [...] Julienne FRANKLIN MD Unavailable Unavailable ANTECOL, Julienne FRANLKIN MD Unavailable Unavailable ANTECOL, Julienne FRANKLIN MD [...] Unavailable ANTECOL, Julienne FRANKLIN MD Unavailable Unavailable Radah BURDICK DPM Unavailable Unavailable Radha BURDICK DPM Unavailable Unavailable Radha BURDICK DPM Unavailable Unavailable Radha BURDICK DPM Unavailable Unavailable Radha BURDICK DPM Unavailable Unavailable Radha BURDICK DPM Unavailable Unavailable MAJAK, R JULIETH DPM Unavailable Unavailable MAJAK, R JULIETH DPM Unavailable Unavailable MAJAK, R JULIETH DPM Unavailable Unavailable MAJAK, R JULIETH DPM Unavailable Unavailable MAJAK, R JULIETH DPM Unavailable Unavailable MAJAK, R JULIETH DPM Unavailable Unavailable MAJAK, R JULIETH DPM Unavailable Unavailable MAJAK, R JULIETH DPM Unavailable Unavailable MAJAK, R JULIETH DPM Unavailable Unavailable MAJAK, R JULIETH DPM Unavailable Unavailable MAJAK, R JULIETH DPM Unavailable Unavailable MAJAK, R JULIETH DPM Unavailable Unavailable MAJAK, R JULIETH DPM Unavailable Unavailable MAJAK, R JULIETH DPM Unavailable Unavailable MAJAK, R JULIETH DPM Unavailable Unavailable MAJAK, R JULIETH DPM Unavailable Unavailable MAJAK, R JULIETH DPM Unavailable Unavailable MAJAK, R JULIETH DPM Unavailable Unavailable MAJAK, R JULIETH DPM Unavailable Unavailable MAJAK, R JULIETH DPM Unavailable Unavailable MAJAK, R JULIETH DPM Unavailable Unavailable MAJAK, R JULIETH DPM Unavailable Unavailable MAJAK, R JULIETH DPM Unavailable Unavailable MAJAK, R JULIETH DPM Unavailable Unavailable SUNG, FRANCISCO DO Unavailable +011 SUNG, FRANCISCO DO Unavailable +011 SUNG, FRANCISCO DO Unavailable +011 SUNG, FRANCISCO DO Unavailable +011 SUNG, FRANCISCO DO Unavailable +011 SUNG, FRANCISCO DO Unavailable +011 SUNG, FRANCISCO DO Unavailable +011 SUNG, FRANCISCO DO Unavailable +011 SUNG, FRANCISCO DO Unavailable +011 SUNG, FRANCISCO DO Unavailable +011 SUNG, FRANCISCO DO Unavailable +011 SUNG, FRANCISCO DO Unavailable +011 SUNG, FRANCISCO DO Unavailable +011 Fish, [facility], PA-C Unavailable Unavailabl e Fish, [facility], PA-C Unavailable Unavailabl e Fish, [facility], PA-C Unavailable Unavailabl e Fish, [facility], PA-C Unavailable Unavailabl e Fish, [facility], PA-C Unavailable Unavailabl e Fish, [facility], PA-C Unavailable Unavailabl e Fish, [facility], PA-C Unavailable Unavailabl e Fish, [facility], PA-C Unavailable Unavailabl e Fish, [facility], PA-C Unavailable Unavailabl e Fish, [facility], PA-C Unavailable Unavailabl e Fish, [facility], PA-C Unavailable Unavailabl e Fish, [facility], PA-C Unavailable Unavailabl e Fish, [facility], PA-C Unavailable Unavailabl e Fish, [facility], PA-C Unavailable Unavailabl e Fish, [facility], PA-C Unavailable Unavailabl e Fish, [facility], PA-C Unavailable Unavailabl e Fish, [facility], PA-C Unavailable Unavailabl e Fish, [facility], PA-C Unavailable Unavailabl e Fish, [facility], PA-C Unavailable Unavailabl e Fish, [facility], PA-C Unavailable Unavailabl e Fish, [facility], PA-C Unavailable Unavailabl e Fish, [facility], PA-C Unavailable Unavailabl e Fish, [facility], PA-C Unavailable Unavailabl e Fish, [facility], PA-C Unavailable Unavailabl e Fish, [facility], PA-C Unavailable Unavailabl e Fish, [facility], PA-C Unavailable Unavailabl e Fish, [facility], PA-C Unavailable Unavailabl e Fish, [facility], PA-C Unavailable Unavailabl e Fish, [facility], PA-C Unavailable Unavailabl e Fish, [facility], PA-C Unavailable Unavailabl e Fish, [facility], PA-C Unavailable Unavailabl e Fish, [facility], PA-C Unavailable Unavailabl e Fish, [facility], PA-C Unavailable Unavailabl e Fish, [facility], PA-C Unavailable Unavailabl e TURRIN, LYDIA Unavailable Unavailable TURRIN, LYDIA Unavailable Unavailable TURRIN, LYDIA Unavailable Unavailable TURRIN, LYDIA Unavailable Unavailable Fish, Boyd Cabrera MD Unavailable [...] Unavailable Fish, Boyd Cabrera MD Unavailable Unavailable FishBoyd MD Unavailable Unavailable Fish, Boyd Cabrera MD [...] Fish, Boyd Cabrera MD Unavailable Unavailable Fish, B Deborah PHILIP Unavailable Unavailable Fish, B Deborah PHILIP Unavailable Unavailable Fish, B Deborah PHILIP Unavailable Unavailable Fish, B Deborah PHILIP Unavailable Unavailable Lenore COELHO Unavailable Unavailable PIMENTEL, OSWALDO MD Unavailable Unavailable PIMENTEL, OSWALDO MD Unavailable Unavailable PIMENTEL, OSWALDO MD Unavailable Unavailable PIMENTEL, OSWALDO MD Unavailable Unavailable PIMENTEL, OSWALDO MD Unavailable Unavailable PIMENTEL, OSWALDO MD Unavailable Unavailable PIMENTEL, OSWALDO MD Unavailable Unavailable PIMENTEL, OSWALDO MD Unavailable Unavailable PIMENTEL, OSWALDO MD Unavailable Unavailable PIMENTEL, OSWALDO MD Unavailable Unavailable PIMENTEL, OSWALDO MD Unavailable Unavailable PIMENTEL, OSWALDO MD Unavailable Unavailable PIMENTEL, OSWALDO MD Unavailable Unavailable PIMENTEL, OSWALDO MD Unavailable Unavailable PIMENTEL, OSWALDO MD Unavailable Unavailable PIMENTEL, OSWALDO MD Unavailable Unavailable PIMENTEL, OSWALDO MD Unavailable Unavailable PIMENTEL, OSWALDO MD Unavailable Unavailable PIMENTEL, OSWALDO MD Unavailable Unavailable PIMENTEL, OSWALDO MD Unavailable Unavailable PIMENTEL, OSWALDO MD Unavailable Unavailable PIMENTEL, OSWALDO MD Unavailable Unavailable PIMENTEL, OSWALDO MD Unavailable Unavailable PIMENTEL, OSWALDO MD Unavailable Unavailable PIMENTEL, OSWALDO MD Unavailable Unavailable PIMENTEL, OSWALDO MD Unavailable Unavailable PIMENTEL, OSWALDO MD Unavailable Unavailable PIMENTEL, OSWALDO MD Unavailable Unavailable PIMENTEL, OSWALDO MD Unavailable Unavailable PIMENTEL, OSWALDO MD Unavailable Unavailable PIMENTEL, OSWALDO MD Unavailable Unavailable PIMENTEL, OSWALDO MD Unavailable Unavailable PIMENTEL, OSWALDO MD Unavailable Unavailable PIMENTEL, OSWALDO MD Unavailable Unavailable PIMENTEL, OSWALDO MD Unavailable Unavailable PIMENTEL, OSWALDO MD Unavailable Unavailable PIMENTEL, OSWALDO MD Unavailable Unavailable PIMENTEL, OSWALDO MD Unavailable Unavailable PIMENTEL, OSWALDO MD Unavailable Unavailable PIMENTEL, OSWALDO MD Unavailable Unavailable PIMENTEL, OSWALDO MD Unavailable Unavailable PIMENTEL, OSWALDO MD Unavailable Unavailable PIMENTEL, OSWALDO MD Unavailable Unavailable PIMENTEL, OSWALDO MD Unavailable Unavailable PIMENTEL, OSWALDO MD Unavailable Unavailable PIMENTEL, OSAWLDO MD Unavailable Unavailable PIMENTEL, OSWALDO MD Unavailable Unavailable PIMENTEL, OSWALDO MD Unavailable Unavailable PIMENTEL, OSWALDO MD Unavailable Unavailable PIMENTEL, OSWALDO MD Unavailable Unavailable PIMENTEL, OSWALDO MD Unavailable Unavailable PIMENTEL, OSWALDO MD Unavailable Unavailable PIMENTEL, OSWALDO MD Unavailable Unavailable PIMENTEL, OSWALDO MD Unavailable Unavailable PIMENTEL, OSWALDO MD Unavailable Unavailable PIMENTEL, OSWALDO MD Unavailable Unavailable PIMENTEL, OSWALDO MD Unavailable Unavailable PIMENTEL, OSWALDO MD Unavailable Unavailable PIMENTEL, OSWALDO MD Unavailable Unavailable PIMENTEL, OSWALDO MD Unavailable Unavailable PIMENTEL, OSWALDO MD Unavailable Unavailable PIMENTEL, OSWALDO MD Unavailable Unavailable PIMENTEL, OSWALDO MD Unavailable Unavailable PIMENTEL, OSWALDO MD Unavailable Unavailable PIMENTEL, OSWALDO MD Unavailable Unavailable PIMENTEL, OSWALDO MD Unavailable Unavailable PIMENTEL, OSWALDO MD Unavailable Unavailable PIMENTEL, OSWALDO MD Unavailable Unavailable PIMENTEL, OSWALDO MD Unavailable Unavailable Re-disclosure Warning The records [...] is protected by Article 27-F of the [facility] Public Health law. If you continue you may have access to information: Regarding HIV / AIDS; Provided by facilities licensed or operated by the [facility] Office of Mental Health; or Provided by the [facility] Office for People With Developmental Disabilities. If such information is present, then the following [facility] mandated warning applies: This information has [...] law may result in a fine or care home sentence or both. A general authorization for the release of medical or other information is NOT sufficient authorization for further disc losure. Allergies and Adverse Reactions Type Description Substance Reaction Status Data Source(s ) No Known Allergies No Known Allergies [facility] Drug allergy No Known Drug Allergies No Known Drug Allergies [facility] Drug allergy No Known Allergies No Known Allergies [facility] Environmental Environmental Environmental Unknown Active eCW1 ([facility]) Environmental Environmental Environmental Unknown Active eCW1 ([facility]) Family History Family Member Name Family Member Gender Family Member Status Date o f Status Description Data Source(s) Unknown Unknown Problem [facility] Unknown Male Problem MED[facility] ([facility]) Unknown Unknown Problem MED[facility] ([facility]) Unknown Female Problem MEDENT ([facility] ) Unknown Female Problem MED[facility] ([facility] Encounters Encounter Providers Location Date Indications Data Source(s ) Inpatient Attender: NACHO HAMILTONSwati VICTORtt fannie: NOLAN TRIANA DOAttender: NOLAN TRIANA DOAdmitter: NOLAN TRIANA DO ER-2EAST 12/09/2020 02:03:00 PM [facility] - 12/13/2020 04:52:00 PM [facility] Patient discharged. Inpatient Attender: Kasey Solis FNPConsultant: Radha Duvall MD 12/09/2020 08:48:05 AM [facility] - 12/09/2020 12:15:00 PM [facility] Patient discharged. Outpatient Attender: [facility] 12/09/2020 05:3 7:00 AM [facility] Inpatient Attender: Kasey Solis FNPConsultant: Radha Duvall MD 12/08/2020 02:35:00 PM [facility] - 12/09/2020 08:41:00 AM [facility] Patient discharged. Inpatient Attender: NOLAN TRIANA DOAttender: NOLAN TRIANA DOAdmitter : NOLAN TRIANA DO ER-ICU 12/05/2020 06:13:00 PM [facility] - 12/08/2020 01:00:00 PM [facility] Patient discharged. Outpatient Attender: [facility] 12/05/2020 09:5 0:00 AM [facility] Emergency Attender: QUENTIN COELHOConsultant: Jimmy Duvall MD 12/05/2020 09:38:00 AM [facility] - 12/05/2020 04:20:00 [facility] Patient [facility]. Outpatient Attender: OSWALDO PIMENTEL MDConsultant: Jimmy dahl MD 11/30/2020 06:58:00 AM EST - 11/30/2020 07:08:00 AM EST [facility] Outpatient Attender: OSWALDO PIMENTEL MDConsultant: Jimmy dahl MD 11/29/2020 03:11:00 PM EST - 11/29/2020 03:21:00 PM EST [facility] [place] [address] [address] 11/12/2020 12:00:00 AM EST eCW1 ([facility]) Out[place] [address] [place] [address] 11/03/2020 12:00:00 AM EST eCW1 ([facility]) [place] [address] [facility] [address] 11/03/2020 12:00:00 AM EST eCW1 ([facility]) Outpatient Attender: Deborah Caldwell MD Physical Therapy 11/01 09:30:00 AM EST MED[facility] ([facility]) [place] [address] [facility] [address] 10/28/2020 12:00:00 AM EST eCW1 ([facility]) [place] [address] [facility] [address] 10/25/2020 12:00:00 AM EST eCW1 ([facility]) [place] [address] [facility] [address] 10/25/2020 12:00:00 AM EST eCW1 ([facility]) [place] [address] [facility] [address] 10/25/2020 12:00:00 AM EST eCW1 ([facility]) [place] [address] [facility] [address] 10/25/2020 12:00:00 AM EST eCW1 ([facility]) Outpatient [address] [address] 10/19/2020 12:00:00 AM EST eCW1 ([facility]) ([id number]) For [employer] [address] [place] [address] 10/19/2020 12:00:00 AM EST eCW1 ([facility]) [place] [address] [facility] [address] 10/19/2020 12:00:00 AM EST eCW1 ([facility]) Unknown [address] [address] 10/18/2020 12:00:00 AM EST eCW1 ([facility]) Unknown [address] [facility] [address] 10/18/2020 12:00:00 AM EST eCW1 ([facility]) Unknown [address] [facility] [address] 10/14/2020 12:00:00 AM EST eCW1 ([facility]) Unknown [address] [facility] [address] 10/11/2020 12:00:00 AM EST eCW1 ([facility]) Unknown [address] [facility] [address] 10/07/2020 12:00:00 AM EST eCW1 ([facility]) ([id number]) [employer] [address] [place] [address] 10/06/2020 12:00:00 AM EST eCW1 ([facility]) ([id number]) [facility] [employer] [address] [place] [address] 09/29/2020 12:00:00 AM EST eCW1 ([facility]) Outpatient [address] [facility] [address] 09/21/2020 12:00:00 AM EST eCW1 ([facility]) Unknown [address] [facility] [address] 09/08/2020 12:00:00 AM EST eCW1 ([facility]) Unknown [address] [facility] [address] 09/01/2020 12:00:00 AM EST eCW1 ([facility]) Unknown [address] [facility] [address] 08/25/2020 12:00:00 AM EST eCW1 ([facility]) Unknown [address] [facility] [address] 08/24/2020 12:00:00 AM EST eCW1 ([facility]) Outpatient Attender: Deborah Caldwell MD Physical Therapy 08/20 01:30:00 PM EDT MEDENT ([facility]) Unknown [address] [facility] [address] 08/20/2020 12:00:00 AM EDT eCW1 ([facility]) ([id number]) [employer] [address] [place] [address] 08/18/2020 12:00:00 AM EDT eCW1 ([facility]) Unknown [address] [facility] [address] 08/18/2020 12:00:00 AM EDT eCW1 ([facility]) Unknown [address] [facility] [address] 08/18/2020 12:00:00 AM EDT eCW1 ([facility]) Office Visit Attender: RIGOBERTO HERRERA MD Main Office 08/13/2020 10: 06:00 AM EDT MEDENT ([facility]) ([id number]) [employer] [address] [place] [address] 08/04/2020 12:00:00 AM EDT eCW1 ([facility]) Unknown [address] [facility] [address] 08/02/2020 12:00:00 AM EDT eCW1 ([facility]) Unknown [address] [facility] [address] 07/30/2020 12:00:00 AM EDT eCW1 ([facility]) ([id number]) [employer] [address] [place] [address] 07/28/2020 12:00:00 AM EDT eCW1 ([facility]) Unknown [address] [facility] [address] 07/28/2020 12:00:00 AM EDT eCW1 ([facility]) Outpatient Attender: Dixie RAMIREZ Main Office 07/26/2020 10:45:00 AM EDT MEDENT ([facility]) Office Visit, Est Pt., Level 3 FC [address] [place] [address] 07/23/2020 12:00:00 AM EDT eCW1 ([facility]) Office Visit, Est Pt., Level 3 PC [address] [place] [address] 07/22/2020 12:00:00 AM EDT eCW1 ([facility]) Outpatient [address] [facility] [address] 07/21/2020 12:00:00 AM EDT eCW1 ([facility]) Office Visit Attender: RIGOBERTO HERRERA MD Main Office 07/08/2020 10: 43:00 AM EDT MEDENT ([facility]) Outpatient Attender: JULIETH BURDICK [facility] Office 12/2019 01:30:00 PM EDT MEDENT ([facility] Emergency Attender: LYDIA Hernandezsultant: Jimmy dahl MD 06/09/2020 01:20:00 PM EDT - 06/09/2020 05:30:00 PM EDT [facility] Patient discharged. Outpatient Attender: JULIETH BURDICK [facility] Office 05/22 01:15:00 PM EDT MEDENT ([facility] Outpatient Attender: Deborah Caldwell MD Physical Therapy 05/18 11:30:00 AM EDT MEDENT ([facility]) [place] [address] [place] [address] 05/14/2020 12:00:00 AM EDT eCW1 ([facility] [place] [place] [address] [facility] [address] 05/14/2020 12:00:00 AM EDT [facility] [place] [address] [facility] [address] 05/10/2020 12:00:00 AM EDT [facility] Outpatient Attender: JULIETH BURDICK [facility] Office 06/2020 10:30:00 AM EDT MEDENT ([facility] [place] [address] [facility] [address] 03/25/2020 12:00:00 AM EDT [facility] Outpatient Attender: Becky HANSON PA-C Physical Therapy 02/24/2020 10:30:00 AM EDT MEDENT ([facility]) [facility] [place] [address] [facility] [address] 02/17/2020 12:00:00 AM EDT [facility]CW[facility] Outpatient Referrer: Becky HANSON PA-C 02/13/2020 06:4 1:00 AM EDT [facility] Outpatient Attender: Deborah Caldwell MD Physical Therapy 02/09 11:15:00 AM EDT MEDENT ([facility] [facility] [place] [address] [facility] [address] 02/06/2020 12:00:00 AM EDT [facility] [place] [address] [facility] [address] 02/06/2020 12:00:00 AM EDT [facility]CW[facility] [place] [address] [facility] [address] 02/03/2020 12:00:00 AM EDT eCW1 ([facility] [place] [address] [facility] [address] 01/28/2020 12:00:00 AM EDT eCW1 ([facility]) [facility] [place] [address] [facility] [address] 01/28/2020 12:00:00 AM EDT eCW1 ([facility]) Outpatient Referrer: Becky HANSON PA-C 12/25/2019 12:3 6:00 PM EST [facility] [place] [address] [facility] [address] 12/22/2019 12:00:00 AM EST eCW1 ([facility]) Outpatient Attender: Harry Caldwell MD Physical Therapy 11/26/2019 0 2:15:00 PM EST MEDENT ([facility]) Outpatient Attender: Dixie RAMIREZ Main Office 11/14/2019 08:45:00 AM EST MEDENT ([facility]) [facility] [place] [address] [place] [address], [place] [address] 11/12/2019 12:00:00 AM EST eCW1 ([facility]) [facility] [place] [address] [place] [address], [place] [address] 11/10/2019 12:00:00 AM EST eCW1 ([facility]) [facility] [place] [address] [place] [address], [place] [address] 11/06/2019 12:00:00 AM EST eCW1 ([facility]) [facility] [place] [address] [place] [address], [place] [address] 11/04/2019 12:00:00 AM EST eCW1 ([facility]) Outpatient Attender: Deborah Caldwell MD Physical Therapy 11/03 10:45:00 AM EST MEDENT ([facility]) Immunizations Vaccine Date Status Description Data Source(s) influenza, recombinant, quadrIvalent,injectable, prese rvative free 08/04/2020 07:43:00 AM EDT completed eCW1 ([facility]) influenza, recombinant, quadrIvalent,injectable, prese rvative free 08/04/2020 07:43:00 AM EDT completed eCW1 ([facility]) influenza, recombinant, quadrIvalent,injectable, prese rvative free 08/04/2020 07:43:00 AM EDT completed eCW1 ([facility]) influenza, recombinant, quadrIvalent,injectable, prese rvative free 08/04/2020 07:43:00 AM EDT completed eCW1 ([facility]) influenza, recombinant, quadrIvalent,injectable, prese rvative free 08/04/2020 07:43:00 AM EDT completed eCW1 ([facility]) influenza, recombinant, quadrIvalent,injectable, prese rvative free 08/04/2020 07:43:00 AM EDT completed eCW1 ([facility]) influenza, recombinant, quadrIvalent,injectable, prese rvative free 08/04/2020 07:43:00 AM EDT completed eCW1 ([facility]) influenza, recombinant, quadrIvalent,injectable, prese rvative free 08/04/2020 07:43:00 AM EDT completed eCW1 ([facility]) influenza, recombinant, quadrIvalent,injectable, prese rvative free 08/04/2020 07:43:00 AM EDT completed eCW1 ([facility]) influenza, recombinant, quadrIvalent,injectable, prese rvative free 08/04/2020 07:43:00 AM EDT completed eCW1 ([facility]) influenza, recombinant, quadrIvalent,injectable, prese rvative free 08/04/2020 07:43:00 AM EDT completed eCW1 ([facility]) influenza, recombinant, quadrIvalent,injectable, prese rvative free 08/04/2020 07:43:00 AM EDT completed eCW1 ([facility]) influenza, recombinant, quadrIvalent,injectable, prese rvative free 08/04/2020 07:43:00 AM EDT completed eCW1 ([facility]) influenza, recombinant, quadrIvalent,injectable, prese rvative free 08/04/2020 07:43:00 AM EDT completed eCW1 ([facility]) influenza, recombinant, quadrIvalent,injectable, prese rvative free 08/04/2020 07:43:00 AM EDT completed eCW1 ([facility]) influenza, recombinant, quadrIvalent,injectable, prese rvative free 08/04/2020 07:43:00 AM EDT completed eCW1 ([facility]) influenza, recombinant, quadrIvalent,injectable, prese rvative free 08/04/2020 07:43:00 AM EDT completed eCW1 ([facility]) influenza, recombinant, quadrIvalent,injectable, prese rvative free 08/04/2020 07:43:00 AM EDT completed eCW1 ([facility]) influenza, recombinant, quadrIvalent,injectable, prese rvative free 08/04/2020 07:43:00 AM EDT completed eCW1 ([facility]) influenza, recombinant, quadrIvalent,injectable, prese rvative free 08/04/2020 07:43:00 AM EDT completed eCW1 ([facility]) influenza, recombinant, quadrIvalent,injectable, prese rvative free 08/04/2020 07:43:00 AM EDT completed eCW1 ([facility]) influenza, recombinant, quadrIvalent,injectable, prese rvative free 08/04/2020 07:43:00 AM EDT completed eCW1 ([facility]) influenza, recombinant, quadrIvalent,injectable, prese rvative free 08/04/2020 07:43:00 AM EDT completed eCW1 ([facility]) influenza, recombinant, quadrIvalent,injectable, prese rvative free 08/04/2020 07:43:00 AM EDT completed eCW1 ([facility]) influenza, recombinant, quadrIvalent,injectable, prese rvative free 08/04/2020 07:43:00 AM EDT completed eCW1 ([facility]) influenza, recombinant, quadrIvalent,injectable, prese rvative free 08/04/2020 07:43:00 AM EDT completed eCW1 ([facility]) influenza, recombinant, quadrIvalent,injectable, prese rvative free 08/04/2020 07:43:00 AM EDT completed eCW1 ([facility]) influenza, recombinant, quadrIvalent,injectable, prese rvative free 08/04/2020 07:43:00 AM EDT completed eCW1 ([facility]) influenza, recombinant, quadrIvalent,injectable, prese rvative free 08/04/2020 07:43:00 AM EDT completed eCW1 ([facility]) influenza, recombinant, quadrIvalent,injectable, prese rvative free 08/04/2020 07:43:00 AM EDT completed eCW1 ([facility]) influenza, recombinant, quadrIvalent,injectable, prese rvative free 08/04/2020 07:43:00 AM EDT completed eCW1 ([facility]) influenza, recombinant, quadrIvalent,injectable, prese rvative free 08/04/2020 07:43:00 AM EDT completed eCW1 ([facility]) INFLUENZA VIRUS VACCINE QUADRIVAL (6 MOS AND UP)/PF 06/20/2020 12:00:00 AM EDT completed [facility] Medications Medication Brand Name Start Date Product Form Dose Route Admi nistrative Instructions Pharmacy Instructions Status Indications Reaction Description Data Source(s) 6 mg 12/14/2020 12:00:00 AM EST tablet 6 TAKE ONE TABLET BY MOUTH EVERY DAY TAKE ONE TABLET BY MOUTH EVERY DAY SOLD: 12/14/2020 [facility] 20 mg 11/10/2020 12:00:00 AM EST capsule 30 TAKE ONE CAPSULE BY MOUTH EVERY MORNING TAKE ONE CAPSULE BY MOUTH EVERY MORNING SOLD: 11/10/2020 [facility] 24 HR Bupropion Hydrochloride 300 MG Extended Release Oral T ablet BUPROPION HCL 11/10/2020 12:00:00 AM EST tablet extended release 24 hr 30 TAKE ONE TABLET BY MOUTH EVERY MORNING TAKE ONE TABLET BY MOUTH EVERY MORNING SOLD: 11/10/2020 [facility] 0.6 mg 11/04/2020 12:00:00 AM EST tablet [...] = 30 UNITS SOLD: 11/04/2020 [facility] Glucagon 1 MG Injection Glucagon Emergency Kit For Low Blood Sugar 11/01/2020 12:00:00 AM EST active M EDENT ([facility]) 3 ML Insulin Lispro 100 UNT/ML Pen Injector [Humalog] Humalo g Kwikpen 11/01/2020 12:00:00 AM EST active MEDENT ([facility]) Wheelchair - Wheelchair - 10/19/2020 12:00:00 AM EST active Wheelchair - eCW1 ([facility]) Wheelchair - Wheelchair - 10/19/2020 12:00:00 AM EST active Wheelchair - eCW1 ([facility]) Wheelchair - Wheelchair - 10/19/2020 12:00:00 AM EST active Wheelchair - eCW1 ([facility]) 40 mg 10/19/2020 12:00:00 AM EST [...] 12:00:00 AM EST active Wheelchair - eCW1 ([facility]) Wheelchair - Wheelchair - 10/19/2020 12:00:00 AM EST active Wheelchair - eCW1 ([facility]) Wheelchair - Wheelchair - 10/19/2020 12:00:00 AM EST active Wheelchair - eCW1 ([facility]) 300 mg 10/19/2020 12:00:00 AM EST capsule 8 TAKE TWO CAPSULES BY MOUTH EVERY DAY TAKE TWO CAPSULES BY MOUTH EVERY DAY SOLD: 10/19/2020 [facility] Wheelchair - Wheelchair - 10/19/2020 12:00:00 AM EST active Wheelchair - eCW1 ([facility]) Wheelchair - Wheelchair - 10/19/2020 12:00:00 AM EST active Wheelchair - eCW1 ([facility]) Wheelchair - Wheelchair - 10/19/2020 12:00:00 AM EST active Wheelchair - eCW1 ([facility]) Wheelchair - Wheelchair - 10/19/2020 12:00:00 AM EST active Wheelchair - eCW1 ([facility]) 50 mg 10/19/2020 12:00:00 AM EST [...] 12:00:00 AM EST active Wheelchair - eCW1 ([facility]) 20 mg 10/19/2020 12:00:00 AM EST tablet 30 TAKE ONE TABLET BY MOUTH EVERY DAY TAKE ONE TABLET BY MOUTH EVERY DAY SOLD: 10/19/2020 [facility] Wheelchair - Wheelchair - 10/19/2020 12:00:00 AM EST active Wheelchair - eCW1 ([facility]) 20 mg 10/19/2020 12:00:00 AM EST tablet 30 TAKE ONE TABLET BY MOUTH EVERY DAY TAKE ONE TABLET BY MOUTH EVERY DAY SOLD: 10/19/2020 [facility] Wheelchair - Wheelchair - 10/19/2020 12:00:00 AM EST active Wheelchair - eCW1 ([facility]) 100 mg 10/19/2020 12:00:00 AM EST [...] EDT ORAL active [facility] ([facility] Magnesium 07/25/2020 12:00:00 AM EDT ORAL active MEDENT ([facility]) QC Tumeric Complex 07/25/2020 12:00:00 AM EDT ORAL active MEDENT ([facility]) lansoprazole 30 MG Delayed Release Oral Capsule [Prevacid] P revacid 07/25/2020 12:00:00 AM EDT ORAL active M EDENT ([facility]) Mometasone Furoate Mometasone Furoate 07/25/2020 12:00:00 AM EDT active [facility] 20 mg 07/07/2020 12:00:00 AM EDT capsule [...] ONE TABLET BY MOUTH EVERY DAY IN SOLD: 06/25/2020 [facility] Levofloxacin 750 MG Oral Tablet Levofloxacin 06/04/2020 12:00:00 AM E DT ORAL active MEDENT ([facility] 750 mg 06/04/2020 12:00:00 AM EDT [...] activ e Sildenafil Citrate 100 MG eCW1 ([facility]) sildenafil 100 MG Oral Tablet Sildenafil Citrate 100 M G Sildenafil Citrate 100 MG 03/25/2020 12:00:00 AM EDT 1.0 {tablet} activ e Sildenafil Citrate 100 MG eCW1 ([facility]) sildenafil 100 MG Oral Tablet Sildenafil Citrate 100 M G Sildenafil Citrate 100 MG 03/25/2020 12:00:00 AM EDT 1.0 {tablet} activ e Sildenafil Citrate 100 MG eCW1 ([facility]) sildenafil 100 MG Oral Tablet Sildenafil Citrate 100 M G Sildenafil Citrate 100 MG 03/25/2020 12:00:00 AM EDT 1.0 {tablet} activ e Sildenafil Citrate 100 MG eCW1 ([facility]) sildenafil 100 MG Oral Tablet Sildenafil Citrate 100 M G Sildenafil Citrate 100 MG 03/25/2020 12:00:00 AM EDT 1.0 {tablet} suspe nded Sildenafil Citrate 100 MG eCW1 ([facility]) sildenafil 100 MG Oral Tablet Sildenafil Citrate 100 M G Sildenafil Citrate 100 MG 03/25/2020 12:00:00 AM EDT 1.0 {tablet} activ e Sildenafil Citrate 100 MG eCW1 ([facility]) sildenafil 100 MG Oral Tablet Sildenafil Citrate 100 M G Sildenafil Citrate 100 MG 03/25/2020 12:00:00 AM EDT 1.0 {tablet} activ e Sildenafil Citrate 100 MG eCW1 ([facility]) sildenafil 100 MG Oral Tablet Sildenafil Citrate 100 M G Sildenafil Citrate 100 MG 03/25/2020 12:00:00 AM EDT 1.0 {tablet} suspe nded Sildenafil Citrate 100 MG eCW1 ([facility]) sildenafil 100 MG Oral Tablet Sildenafil Citrate 100 M G Sildenafil Citrate 100 MG 03/25/2020 12:00:00 AM EDT 1.0 {tablet} activ e Sildenafil Citrate 100 MG eCW1 ([facility]) sildenafil 100 MG Oral Tablet Sildenafil Citrate 100 M G Sildenafil Citrate 100 MG 03/25/2020 12:00:00 AM EDT 1.0 {tablet} activ e Sildenafil Citrate 100 MG eCW1 ([facility]) sildenafil 100 MG Oral Tablet Sildenafil Citrate 100 M G Sildenafil Citrate 100 MG 03/25/2020 12:00:00 AM EDT 1.0 {tablet} activ e Sildenafil Citrate 100 MG eCW1 ([facility]) sildenafil 100 MG Oral Tablet Sildenafil Citrate 100 M G Sildenafil Citrate 100 MG 03/25/2020 12:00:00 AM EDT 1.0 {tablet} activ e Sildenafil Citrate 100 MG eCW1 ([facility]) sildenafil 100 MG Oral Tablet Sildenafil Citrate 100 M G Sildenafil Citrate 100 MG 03/25/2020 12:00:00 AM EDT 1.0 {tablet} activ e Sildenafil Citrate 100 MG eCW1 ([facility]) sildenafil 100 MG Oral Tablet Sildenafil Citrate 100 M G Sildenafil Citrate 100 MG 03/25/2020 12:00:00 AM EDT 1.0 {tablet} activ e Sildenafil Citrate 100 MG eCW1 ([facility]) sildenafil 100 MG Oral Tablet Sildenafil Citrate 100 M G Sildenafil Citrate 100 MG 03/25/2020 12:00:00 AM EDT 1.0 {tablet} suspe nded Sildenafil Citrate 100 MG eCW1 ([facility]) sildenafil 100 MG Oral Tablet Sildenafil Citrate 100 M G Sildenafil Citrate 100 MG 03/25/2020 12:00:00 AM EDT 1.0 {tablet} activ e Sildenafil Citrate 100 MG eCW1 ([facility]) sildenafil 100 MG Oral Tablet Sildenafil Citrate 100 M G Sildenafil Citrate 100 MG 03/25/2020 12:00:00 AM EDT 1.0 {tablet} activ e Sildenafil Citrate 100 MG eCW1 ([facility]) sildenafil 100 MG Oral Tablet Sildenafil Citrate 100 M G Sildenafil Citrate 100 MG 03/25/2020 12:00:00 AM EDT 1.0 {tablet} activ e Sildenafil Citrate 100 MG eCW1 ([facility]) sildenafil 100 MG Oral Tablet Sildenafil Citrate 100 M G Sildenafil Citrate 100 MG 03/25/2020 12:00:00 AM EDT 1.0 {tablet} activ e Sildenafil Citrate 100 MG eCW1 ([facility]) 100 mg 03/25/2020 12:00:00 AM EDT tablet 30 TAKE ONE TABLET BY MOUTH EVERY DAY TAKE ONE TABLET BY MOUTH EVERY DAY SOLD: 03/30/2020 [facility] sildenafil 100 MG Oral Tablet Sildenafil Citrate 100 M G Sildenafil Citrate 100 MG 03/25/2020 12:00:00 AM EDT 1.0 {tablet} suspe nded Sildenafil Citrate 100 MG eCW1 ([facility]) sildenafil 100 MG Oral Tablet Sildenafil Citrate 100 M G Sildenafil Citrate 100 MG 03/25/2020 12:00:00 AM EDT 1.0 {tablet} activ e Sildenafil Citrate 100 MG eCW1 ([facility]) sildenafil 100 MG Oral Tablet Sildenafil Citrate 100 M G Sildenafil Citrate 100 MG 03/25/2020 12:00:00 AM EDT 1.0 {tablet} activ e Sildenafil Citrate 100 MG eCW1 ([facility]) sildenafil 100 MG Oral Tablet Sildenafil Citrate 100 M G Sildenafil Citrate 100 MG 03/25/2020 12:00:00 AM EDT 1.0 {tablet} suspe nded Sildenafil Citrate 100 MG eCW1 ([facility]) sildenafil 100 MG Oral Tablet Sildenafil Citrate 100 M G Sildenafil Citrate 100 MG 03/25/2020 12:00:00 AM EDT 1.0 {tablet} suspe nded Sildenafil Citrate 100 MG eCW1 ([facility]) sildenafil 100 MG Oral Tablet Sildenafil Citrate 100 M G Sildenafil Citrate 100 MG 03/25/2020 12:00:00 AM EDT 1.0 {tablet} activ e Sildenafil Citrate 100 MG eCW1 ([facility]) 300 mg 03/24/2020 12:00:00 AM EDT [...] suspended Glucosamine Chondr 500 Complex - eCW1 ([facility]) Cyanocobalamin 1000 MCG UNK 02/02/2020 12:00:00 AM EDT 1.0 { tablet} suspended Cyanocobalamin 1000 MCG eCW1 ([facility]) Cephalexin 500 MG Oral Capsule Cephalexin 500 MG 02/02/2020 12:00:0 0 AM EDT 1.0 {capsule} suspended Cephalexin 500 M G eCW1 ([facility]) ammonium lactate 120 MG/ML Topical Cream Ammonium Lact ate 12 % Ammonium Lactate 12 % 02/02/2020 12:00:00 AM EDT 1.0 {application} active Ammonium Lactate 12 % eCW1 ([facility]) Cephalexin 500 MG Oral Capsule Cephalexin 500 MG 02/02/2020 12:00:0 0 AM EDT 1.0 {capsule} suspended Cephalexin 500 M G eCW1 ([facility]) Glucosamine Chondr 500 Complex - Glucosamine Chondr 500 Comp macey - 02/02/2020 12:00:00 AM EDT 1.0 {capsule} suspended Glucosamine Chondr 500 Complex - eCW1 ([facility]) Cephalexin 500 MG Oral Capsule Cephalexin 500 MG 02/02/2020 12:00:0 0 AM EDT 1.0 {capsule} suspended Cephalexin 500 M G eCW1 ([facility]) Cyanocobalamin 1000 MCG UNK 02/02/2020 12:00:00 AM EDT 1.0 { tablet} suspended Cyanocobalamin 1000 MCG eCW1 ([facility]) Cyanocobalamin 1000 MCG UNK 02/02/2020 12:00:00 AM EDT 1.0 { tablet} suspended Cyanocobalamin 1000 MCG eCW1 ([facility]) ammonium lactate 120 MG/ML Topical Cream Ammonium Lact ate 12 % Ammonium Lactate 12 % 02/02/2020 12:00:00 AM EDT 1.0 {application} active Ammonium Lactate 12 % eCW1 ([facility]) Cyanocobalamin 1000 MCG UNK 02/02/2020 12:00:00 AM EDT 1.0 { tablet} active Cyanocobalamin 1000 MCG eCW1 ([facility]) ammonium lactate 120 MG/ML Topical Cream Ammonium Lact ate 12 % Ammonium Lactate 12 % 02/02/2020 12:00:00 AM EDT 1.0 {application} suspended Ammonium Lactate 12 % eCW1 ([facility]) Glucosamine Chondr 500 Complex - Glucosamine Chondr 500 Comp macey - 02/02/2020 12:00:00 AM EDT 1.0 {capsule} suspended Glucosamine Chondr 500 Complex - eCW1 ([facility]) Glucosamine Chondr 500 Complex - Glucosamine Chondr 500 Comp macey - 02/02/2020 12:00:00 AM EDT 1.0 {capsule} suspended Glucosamine Chondr 500 Complex - eCW1 ([facility]) Glucosamine Chondr 500 Complex - Glucosamine Chondr 500 Comp macey - 02/02/2020 12:00:00 AM EDT active 1 capsul e eCW1 ([facility]) Cephalexin 500 MG Oral Capsule Cephalexin 500 MG 02/02/2020 12:00:0 0 AM EDT 1.0 {capsule} suspended Cephalexin 500 M G eCW1 ([facility]) Cephalexin 500 MG Oral Capsule Cephalexin 500 MG 02/02/2020 12:00:0 0 AM EDT 1.0 {capsule} suspended Cephalexin 500 M G eCW1 ([facility]) Glucosamine Chondr 500 Complex - Glucosamine Chondr 500 Comp macey - 02/02/2020 12:00:00 AM EDT 1.0 {capsule} suspended Glucosamine Chondr 500 Complex - eCW1 ([facility]) 500 mg 02/02/2020 12:00:00 AM EDT capsule 20 TAKE ONE CAPSULE BY MOUTH TWICE A DAY TAKE ONE CAPSULE BY MOUTH TWICE A DAY SOLD: 02/03/2020 [facility] Cyanocobalamin 1000 MCG UNK 02/02/2020 12:00:00 AM EDT 1.0 { tablet} suspended Cyanocobalamin 1000 MCG eCW1 ([facility]) Glucosamine Chondr 500 Complex - Glucosamine Chondr 500 Comp macey - 02/02/2020 12:00:00 AM EDT 1.0 {capsule} suspended Glucosamine Chondr 500 Complex - eCW1 ([facility]) ammonium lactate 120 MG/ML Topical Cream Ammonium Lact ate 12 % Ammonium Lactate 12 % 02/02/2020 12:00:00 AM EDT 1.0 {application} suspended Ammonium Lactate 12 % eCW1 ([facility]) Cephalexin 500 MG Oral Capsule Cephalexin 500 MG 02/02/2020 12:00:0 0 AM EDT 1.0 {capsule} active Cephalexin 500 MG eCW1 ([facility]) ammonium lactate 120 MG/ML Topical Cream Ammonium Lact ate 12 % Ammonium Lactate 12 % 02/02/2020 12:00:00 AM EDT 1.0 {application} active Ammonium Lactate 12 % eCW1 ([facility]) Cyanocobalamin 1000 MCG UNK 02/02/2020 12:00:00 AM EDT 1.0 { tablet} active Cyanocobalamin 1000 MCG eCW1 ([facility]) Glucosamine Chondr 500 Complex - Glucosamine Chondr 500 Comp macey - 02/02/2020 12:00:00 AM EDT 1.0 {capsule} suspended Glucosamine Chondr 500 Complex - eCW1 ([facility]) Glucosamine Chondr 500 Complex - Glucosamine Chondr 500 Comp macey - 02/02/2020 12:00:00 AM EDT 1.0 {capsule} active Glucosamine Chondr 500 Complex - eCW1 ([facility]) Cephalexin 500 MG Oral Capsule Cephalexin 500 MG 02/02/2020 12:00:0 0 AM EDT 1.0 {capsule} suspended Cephalexin 500 M G eCW1 ([facility]) Cyanocobalamin 1000 MCG UNK 02/02/2020 12:00:00 AM EDT 1.0 { tablet} suspended Cyanocobalamin 1000 MCG eCW1 ([facility]) Cyanocobalamin 1000 MCG UNK 02/02/2020 12:00:00 AM EDT 1.0 { tablet} suspended Cyanocobalamin 1000 MCG eCW1 ([facility]) Cephalexin 500 MG Oral Capsule Cephalexin 500 MG 02/02/2020 12:00:0 0 AM EDT 1.0 {capsule} suspended Cephalexin 500 M G eCW1 ([facility]) Glucosamine Chondr 500 Complex - Glucosamine Chondr 500 Comp macey - 02/02/2020 12:00:00 AM EDT 1.0 {capsule} suspended Glucosamine Chondr 500 Complex - eCW1 ([facility]) ammonium lactate 120 MG/ML Topical Cream Ammonium Lact ate 12 % Ammonium Lactate 12 % 02/02/2020 12:00:00 AM EDT 1.0 {application} active Ammonium Lactate 12 % eCW1 ([facility]) Cephalexin 500 MG Oral Capsule Cephalexin 500 MG 02/02/2020 12:00:0 0 AM EDT 1.0 {capsule} suspended Cephalexin 500 M G eCW1 ([facility]) ammonium lactate 120 MG/ML Topical Cream Ammonium Lact ate 12 % Ammonium Lactate 12 % 02/02/2020 12:00:00 AM EDT 1.0 {application} active Ammonium Lactate 12 % eCW1 ([facility]) Cephalexin 500 MG Oral Capsule Cephalexin 500 MG 02/02/2020 12:00:0 0 AM EDT 1.0 {capsule} suspended Cephalexin 500 M G eCW1 ([facility]) ammonium lactate 120 MG/ML Topical Cream Ammonium Lact ate 12 % Ammonium Lactate 12 % 02/02/2020 12:00:00 AM EDT 1.0 {application} suspended Ammonium Lactate 12 % eCW1 ([facility]) ammonium lactate 120 MG/ML Topical Cream Ammonium Lact ate 12 % Ammonium Lactate 12 % 02/02/2020 12:00:00 AM EDT active 1 application eCW1 ([facility]) Cyanocobalamin 1000 MCG UNK 02/02/2020 12:00:00 AM EDT 1.0 { tablet} suspended Cyanocobalamin 1000 MCG eCW1 ([facility]) Cyanocobalamin 1000 MCG UNK 02/02/2020 12:00:00 AM EDT 1.0 { tablet} suspended Cyanocobalamin 1000 MCG eCW1 ([facility]) ammonium lactate 120 MG/ML Topical Cream Ammonium Lact ate 12 % Ammonium Lactate 12 % 02/02/2020 12:00:00 AM EDT 1.0 {application} active Ammonium Lactate 12 % eCW1 ([facility]) Glucosamine Chondr 500 Complex - Glucosamine Chondr 500 Comp macey - 02/02/2020 12:00:00 AM EDT 1.0 {capsule} suspended Glucosamine Chondr 500 Complex - eCW1 ([facility]) Cyanocobalamin 1000 MCG UNK 02/02/2020 12:00:00 AM EDT 1.0 { tablet} suspended Cyanocobalamin 1000 MCG eCW1 ([facility]) ammonium lactate 120 MG/ML Topical Cream Ammonium Lact ate 12 % Ammonium Lactate 12 % 02/02/2020 12:00:00 AM EDT 1.0 {application} active Ammonium Lactate 12 % eCW1 ([facility]) ammonium lactate 120 MG/ML Topical Cream Ammonium Lact ate 12 % Ammonium Lactate 12 % 02/02/2020 12:00:00 AM EDT 1.0 {application} suspended Ammonium Lactate 12 % eCW1 ([facility]) Cephalexin 500 MG Oral Capsule Cephalexin 500 MG 02/02/2020 12:00:0 0 AM EDT 1.0 {capsule} suspended Cephalexin 500 M G eCW1 ([facility]) Glucosamine Chondr 500 Complex - Glucosamine Chondr 500 Comp macey - 02/02/2020 12:00:00 AM EDT 1.0 {capsule} suspended Glucosamine Chondr 500 Complex - eCW1 ([facility]) Glucosamine Chondr 500 Complex - Glucosamine Chondr 500 Comp macey - 02/02/2020 12:00:00 AM EDT active 1 capsul e eCW1 ([facility]) Cephalexin 500 MG Oral Capsule Cephalexin 500 MG 02/02/2020 12:00:00 AM EDT active 1 capsule eCW1 ([facility]) ammonium lactate 120 MG/ML Topical Cream Ammonium Lact ate 12 % Ammonium Lactate 12 % 02/02/2020 12:00:00 AM EDT 1.0 {application} active Ammonium Lactate 12 % eCW1 ([facility]) ammonium lactate 120 MG/ML Topical Cream Ammonium Lact ate 12 % Ammonium Lactate 12 % 02/02/2020 12:00:00 AM EDT 1.0 {application} active Ammonium Lactate 12 % eCW1 ([facility]) Cephalexin 500 MG Oral Capsule Cephalexin 500 MG 02/02/2020 12:00:0 0 AM EDT 1.0 {capsule} suspended Cephalexin 500 M G eCW1 ([facility]) Cephalexin 500 MG Oral Capsule Cephalexin 500 MG 02/02/2020 12:00:00 AM EDT active 1 capsule eCW1 ([facility]) Cyanocobalamin 1000 MCG UNK 02/02/2020 12:00:00 AM EDT active 1 tablet eCW1 ([facility]) Cephalexin 500 MG Oral Capsule Cephalexin 500 MG 02/02/2020 12:00:0 0 AM EDT 1.0 {capsule} suspended Cephalexin 500 M G eCW1 ([facility]) Cyanocobalamin 1000 MCG UNK 02/02/2020 12:00:00 AM EDT 1.0 { tablet} suspended Cyanocobalamin 1000 MCG eCW1 ([facility]) Glucosamine Chondr 500 Complex - Glucosamine Chondr 500 Comp macey - 02/02/2020 12:00:00 AM EDT 1.0 {capsule} suspended Glucosamine Chondr 500 Complex - eCW1 ([facility]) Glucosamine Chondr 500 Complex - Glucosamine Chondr 500 Comp macey - 02/02/2020 12:00:00 AM EDT 1.0 {capsule} suspended Glucosamine Chondr 500 Complex - eCW1 ([facility]) Cephalexin 500 MG Oral Capsule Cephalexin 500 MG 02/02/2020 12:00:0 0 AM EDT 1.0 {capsule} suspended Cephalexin 500 M G eCW1 ([facility]) ammonium lactate 120 MG/ML Topical Cream Ammonium Lact ate 12 % Ammonium Lactate 12 % 02/02/2020 12:00:00 AM EDT 1.0 {application} active Ammonium Lactate 12 % eCW1 ([facility]) Cephalexin 500 MG Oral Capsule Cephalexin 500 MG 02/02/2020 12:00:0 0 AM EDT 1.0 {capsule} suspended Cephalexin 500 M G eCW1 ([facility]) Glucosamine Chondr 500 Complex - Glucosamine Chondr 500 Comp macey - 02/02/2020 12:00:00 AM EDT 1.0 {capsule} suspended Glucosamine Chondr 500 Complex - eCW1 ([facility]) Glucosamine Chondr 500 Complex - Glucosamine Chondr 500 Comp macey - 02/02/2020 12:00:00 AM EDT 1.0 {capsule} suspended Glucosamine Chondr 500 Complex - eCW1 ([facility]) Glucosamine Chondr 500 Complex - Glucosamine Chondr 500 Comp macey - 02/02/2020 12:00:00 AM EDT 1.0 {capsule} suspended Glucosamine Chondr 500 Complex - eCW1 ([facility]) Glucosamine Chondr 500 Complex - Glucosamine Chondr 500 Comp macey - 02/02/2020 12:00:00 AM EDT 1.0 {capsule} suspended Glucosamine Chondr 500 Complex - eCW1 ([facility]) Glucosamine Chondr 500 Complex - Glucosamine Chondr 500 Comp macey - 02/02/2020 12:00:00 AM EDT 1.0 {capsule} suspended Glucosamine Chondr 500 Complex - eCW1 ([facility]) ammonium lactate 120 MG/ML Topical Cream Ammonium Lact ate 12 % Ammonium Lactate 12 % 02/02/2020 12:00:00 AM EDT 1.0 {application} active Ammonium Lactate 12 % eCW1 ([facility]) Cephalexin 500 MG Oral Capsule Cephalexin 500 MG 02/02/2020 12:00:0 0 AM EDT 1.0 {capsule} suspended Cephalexin 500 M G eCW1 ([facility]) ammonium lactate 120 MG/ML Topical Cream Ammonium Lact ate 12 % Ammonium Lactate 12 % 02/02/2020 12:00:00 AM EDT active 1 application eCW1 ([facility]) ammonium lactate 120 MG/ML Topical Cream Ammonium Lact ate 12 % Ammonium Lactate 12 % 02/02/2020 12:00:00 AM EDT 1.0 {application} active Ammonium Lactate 12 % eCW1 ([facility]) Cyanocobalamin 1000 MCG UNK 02/02/2020 12:00:00 AM EDT 1.0 { tablet} suspended Cyanocobalamin 1000 MCG eCW1 ([facility]) Cyanocobalamin 1000 MCG UNK 02/02/2020 12:00:00 AM EDT 1.0 { tablet} suspended Cyanocobalamin 1000 MCG eCW1 ([facility]) ammonium lactate 120 MG/ML Topical Cream Ammonium Lact ate 12 % Ammonium Lactate 12 % 02/02/2020 12:00:00 AM EDT 1.0 {application} active Ammonium Lactate 12 % eCW1 ([facility]) Cephalexin 500 MG Oral Capsule Cephalexin 500 MG 02/02/2020 12:00:0 0 AM EDT 1.0 {capsule} suspended Cephalexin 500 M G eCW1 ([facility]) ammonium lactate 120 MG/ML Topical Cream Ammonium Lact ate 12 % Ammonium Lactate 12 % 02/02/2020 12:00:00 AM EDT 1.0 {application} active Ammonium Lactate 12 % eCW1 ([facility]) Cephalexin 500 MG Oral Capsule Cephalexin 500 MG 02/02/2020 12:00:0 0 AM EDT 1.0 {capsule} active Cephalexin 500 MG eCW1 ([facility]) Cyanocobalamin 1000 MCG UNK 02/02/2020 12:00:00 AM EDT 1.0 { tablet} suspended Cyanocobalamin 1000 MCG eCW1 ([facility]) ammonium lactate 120 MG/ML Topical Cream Ammonium Lact ate 12 % Ammonium Lactate 12 % 02/02/2020 12:00:00 AM EDT 1.0 {application} suspended Ammonium Lactate 12 % eCW1 ([facility]) Cyanocobalamin 1000 MCG UNK 02/02/2020 12:00:00 AM EDT 1.0 { tablet} suspended Cyanocobalamin 1000 MCG eCW1 ([facility]) Glucosamine Chondr 500 Complex - Glucosamine Chondr 500 Comp macey - 02/02/2020 12:00:00 AM EDT 1.0 {capsule} active Glucosamine Chondr 500 Complex - eCW1 ([facility]) Cyanocobalamin 1000 MCG UNK 02/02/2020 12:00:00 AM EDT 1.0 { tablet} suspended Cyanocobalamin 1000 MCG eCW1 ([facility]) Cephalexin 500 MG Oral Capsule Cephalexin 500 MG 02/02/2020 12:00:0 0 AM EDT 1.0 {capsule} suspended Cephalexin 500 M G eCW1 ([facility]) Cephalexin 500 MG Oral Capsule Cephalexin 500 MG 02/02/2020 12:00:0 0 AM EDT 1.0 {capsule} suspended Cephalexin 500 M G eCW1 ([facility]) ammonium lactate 120 MG/ML Topical Cream Ammonium Lact ate 12 % Ammonium Lactate 12 % 02/02/2020 12:00:00 AM EDT 1.0 {application} active Ammonium Lactate 12 % eCW1 ([facility]) Glucosamine Chondr 500 Complex - Glucosamine Chondr 500 Comp macey - 02/02/2020 12:00:00 AM EDT 1.0 {capsule} suspended Glucosamine Chondr 500 Complex - eCW1 ([facility]) Cyanocobalamin 1000 MCG UNK 02/02/2020 12:00:00 AM EDT 1.0 { tablet} suspended Cyanocobalamin 1000 MCG eCW1 ([facility]) Cephalexin 500 MG Oral Capsule Cephalexin 500 MG 02/02/2020 12:00:0 0 AM EDT 1.0 {capsule} suspended Cephalexin 500 M G eCW1 ([facility]) Cephalexin 500 MG Oral Capsule Cephalexin 500 MG 02/02/2020 12:00:0 0 AM EDT 1.0 {capsule} suspended Cephalexin 500 M G eCW1 ([facility]) Glucosamine Chondr 500 Complex - Glucosamine Chondr 500 Comp macey - 02/02/2020 12:00:00 AM EDT 1.0 {capsule} suspended Glucosamine Chondr 500 Complex - eCW1 ([facility]) Glucosamine Chondr 500 Complex - Glucosamine Chondr 500 Comp macey - 02/02/2020 12:00:00 AM EDT 1.0 {capsule} suspended Glucosamine Chondr 500 Complex - eCW1 ([facility]) Cyanocobalamin 1000 MCG UNK 02/02/2020 12:00:00 AM EDT 1.0 { tablet} suspended Cyanocobalamin 1000 MCG eCW1 ([facility]) Glucosamine Chondr 500 Complex - Glucosamine Chondr 500 Comp macey - 02/02/2020 12:00:00 AM EDT 1.0 {capsule} suspended Glucosamine Chondr 500 Complex - eCW1 ([facility]) ammonium lactate 120 MG/ML Topical Cream Ammonium Lact ate 12 % Ammonium Lactate 12 % 02/02/2020 12:00:00 AM EDT 1.0 {application} active Ammonium Lactate 12 % eCW1 ([facility]) Cephalexin 500 MG Oral Capsule Cephalexin 500 MG 02/02/2020 12:00:0 0 AM EDT 1.0 {capsule} suspended Cephalexin 500 M G eCW1 ([facility]) Cyanocobalamin 1000 MCG UNK 02/02/2020 12:00:00 AM EDT 1.0 { tablet} suspended Cyanocobalamin 1000 MCG eCW1 ([facility]) Cyanocobalamin 1000 MCG UNK 02/02/2020 12:00:00 AM EDT 1.0 { tablet} suspended Cyanocobalamin 1000 MCG eCW1 ([facility]) Cyanocobalamin 1000 MCG UNK 02/02/2020 12:00:00 AM EDT active 1 tablet eCW1 ([facility]) Glucosamine Chondr 500 Complex - Glucosamine Chondr 500 Comp macey - 02/02/2020 12:00:00 AM EDT 1.0 {capsule} suspended Glucosamine Chondr 500 Complex - eCW1 ([facility]) Cephalexin 500 MG Oral Capsule Cephalexin 500 MG 02/02/2020 12:00:0 0 AM EDT 1.0 {capsule} suspended Cephalexin 500 M G eCW1 ([facility]) Cyanocobalamin 1000 MCG UNK 02/02/2020 12:00:00 AM EDT 1.0 { tablet} suspended Cyanocobalamin 1000 MCG eCW1 ([facility]) Cyanocobalamin 1000 MCG UNK 02/02/2020 12:00:00 AM EDT 1.0 { tablet} suspended Cyanocobalamin 1000 MCG eCW1 ([facility]) Glucosamine Chondr 500 Complex - Glucosamine Chondr 500 Comp macey - 02/02/2020 12:00:00 AM EDT 1.0 {capsule} suspended Glucosamine Chondr 500 Complex - eCW1 ([facility]) ammonium lactate 120 MG/ML Topical Cream Ammonium Lact ate 12 % Ammonium Lactate 12 % 02/02/2020 12:00:00 AM EDT 1.0 {application} suspended Ammonium Lactate 12 % eCW1 ([facility]) ammonium lactate 120 MG/ML Topical Cream Ammonium Lact ate 12 % Ammonium Lactate 12 % 02/02/2020 12:00:00 AM EDT 1.0 {application} active Ammonium Lactate 12 % eCW1 ([facility]) Cyanocobalamin 1000 MCG UNK 02/02/2020 12:00:00 AM EDT 1.0 { tablet} suspended Cyanocobalamin 1000 MCG eCW1 ([facility]) Cephalexin 500 MG Oral Capsule Cephalexin 500 MG 02/02/2020 12:00:0 0 AM EDT 1.0 {capsule} suspended Cephalexin 500 M G eCW1 ([facility]) Cyanocobalamin 1000 MCG UNK 02/02/2020 12:00:00 AM EDT 1.0 { tablet} suspended Cyanocobalamin 1000 MCG eCW1 ([facility]) ammonium lactate 120 MG/ML Topical Cream Ammonium Lact ate 12 % Ammonium Lactate 12 % 02/02/2020 12:00:00 AM EDT 1.0 {application} active Ammonium Lactate 12 % eCW1 ([facility]) ammonium lactate 120 MG/ML Topical Cream Ammonium Lact ate 12 % Ammonium Lactate 12 % 02/02/2020 12:00:00 AM EDT 1.0 {application} active Ammonium Lactate 12 % eCW1 ([facility]) 600 mg 01/15/2020 12:00:00 AM EDT [...] 12/23/2019 12:00:00 AM EST active MEDENT ([facility] 12 % 12/23/2019 12:00:00 AM [...] [place] 11/13 12:00:00 AM EST active MEDENT ([facility] 0.77 % 11/12/2019 12:00:00 AM EST cream 90 APPLY TOPICALLY THREE TIMES A DAY APPLY TOPICALLY THREE TIMES A DAY SOLD: 03/10/2020 [facility] ciclopirox 7.7 MG/ML Topical Cream [Loprox] Loprox 0.77 % Lo prox 0.77 % 11/12/2019 12:00:00 AM EST 1.0 {application} higinio pended Loprox 0.77 % eCW1 ([facility]) ciclopirox 7.7 MG/ML Topical Cream [Loprox] Loprox 0.77 % Lo prox 0.77 % 11/12/2019 12:00:00 AM EST 1.0 {application} higinio pended Loprox 0.77 % eCW1 ([facility]) ciclopirox 7.7 MG/ML Topical Cream [Loprox] Loprox 0.77 % Lo prox 0.77 % 11/12/2019 12:00:00 AM EST 1.0 {application} higinio pended Loprox 0.77 % eCW1 ([facility]) ciclopirox 7.7 MG/ML Topical Cream [Loprox] Loprox 0.77 % Lo prox 0.77 % 11/12/2019 12:00:00 AM EST 1.0 {application} higinio pended Loprox 0.77 % eCW1 ([facility]) 0.77 % 11/12/2019 12:00:00 AM EST cream 90 APPLY TOPICALLY THREE TIMES A DAY APPLY TOPICALLY THREE TIMES A DAY SOLD: 11/13/2019 [facility] ciclopirox 7.7 MG/ML Topical Cream [Loprox] Loprox 0.77 % Lo prox 0.77 % 11/12/2019 12:00:00 AM EST 1.0 {application} higinio pended Loprox 0.77 % eCW1 ([facility]) ciclopirox 7.7 MG/ML Topical Cream [Loprox] Loprox 0.77 % Lo prox 0.77 % 11/12/2019 12:00:00 AM EST 1.0 {application} higinio pended Loprox 0.77 % eCW1 ([facility]) ciclopirox 7.7 MG/ML Topical Cream [Loprox] Loprox 0.77 % Lo prox 0.77 % 11/12/2019 12:00:00 AM EST 1.0 {application} active Loprox 0.77 % eCW1 ([facility]) ciclopirox 7.7 MG/ML Topical Cream [Loprox] Loprox 0.77 % Lo prox 0.77 % 11/12/2019 12:00:00 AM EST 1.0 {application} higinio pended Loprox 0.77 % eCW1 ([facility]) ciclopirox 7.7 MG/ML Topical Cream [Loprox] Loprox 0.77 % Lo prox 0.77 % 11/12/2019 12:00:00 AM EST 1.0 {application} higinio pended Loprox 0.77 % eCW1 ([facility]) ciclopirox 7.7 MG/ML Topical Cream [Loprox] Loprox 0.77 % Lo prox 0.77 % 11/12/2019 12:00:00 AM EST 1.0 {application} higinio pended Loprox 0.77 % eCW1 ([facility]) ciclopirox 7.7 MG/ML Topical Cream [Loprox] Loprox 0.77 % Lo prox 0.77 % 11/12/2019 12:00:00 AM EST 1.0 {application} higinio pended Loprox 0.77 % eCW1 ([facility]) ciclopirox 7.7 MG/ML Topical Cream [Loprox] Loprox 0.77 % Lo prox 0.77 % 11/12/2019 12:00:00 AM EST 1.0 {application} higinio pended Loprox 0.77 % eCW1 ([facility]) ciclopirox 7.7 MG/ML Topical Cream [Loprox] Loprox 0.77 % Lo prox 0.77 % 11/12/2019 12:00:00 AM EST 1.0 {application} higinio pended Loprox 0.77 % eCW1 ([facility]) ciclopirox 7.7 MG/ML Topical Cream [Loprox] Loprox 0.77 % Lo prox 0.77 % 11/12/2019 12:00:00 AM EST 1.0 {application} higinio pended Loprox 0.77 % eCW1 ([facility]) 0.77 % 11/12/2019 12:00:00 AM EST cream 90 APPLY TOPICALLY THREE TIMES A DAY APPLY TOPICALLY THREE TIMES A DAY SOLD: 01/04/2020 [facility] ciclopirox 7.7 MG/ML Topical Cream [Loprox] Loprox 0.77 % Lo prox 0.77 % 11/12/2019 12:00:00 AM EST 1.0 {application} higinio pended Loprox 0.77 % eCW1 ([facility]) ciclopirox 7.7 MG/ML Topical Cream [Loprox] Loprox 0.77 % Lo prox 0.77 % 11/12/2019 12:00:00 AM EST 1.0 {application} higinio pended Loprox 0.77 % eCW1 ([facility]) ciclopirox 7.7 MG/ML Topical Cream [Loprox] Loprox 0.77 % Lo prox 0.77 % 11/12/2019 12:00:00 AM EST 1.0 {application} higinio pended Loprox 0.77 % eCW1 ([facility]) ciclopirox 7.7 MG/ML Topical Cream [Loprox] Loprox 0.77 % Lo prox 0.77 % 11/12/2019 12:00:00 AM EST 1.0 {application} higinio pended Loprox 0.77 % eCW1 ([facility]) ciclopirox 7.7 MG/ML Topical Cream [Loprox] Loprox 0.77 % Lo prox 0.77 % 11/12/2019 12:00:00 AM EST 1.0 {application} higinio pended Loprox 0.77 % eCW1 ([facility]) ciclopirox 7.7 MG/ML Topical Cream [Loprox] Loprox 0.77 % Lo prox 0.77 % 11/12/2019 12:00:00 AM EST 1.0 {application} higinio pended Loprox 0.77 % eCW1 ([facility]) ciclopirox 7.7 MG/ML Topical Cream [Loprox] Loprox 0.77 % Lo prox 0.77 % 11/12/2019 12:00:00 AM EST 1.0 {application} higinio pended Loprox 0.77 % eCW1 ([facility]) ciclopirox 7.7 MG/ML Topical Cream [Loprox] Loprox 0.77 % Lo prox 0.77 % 11/12/2019 12:00:00 AM EST 1.0 {application} active Loprox 0.77 % eCW1 ([facility]) ciclopirox 7.7 MG/ML Topical Cream [Loprox] Loprox 0.77 % Lo prox 0.77 % 11/12/2019 12:00:00 AM EST active 1 application eCW1 ([facility]) ciclopirox 7.7 MG/ML Topical Cream [Loprox] Loprox 0.77 % Lo prox 0.77 % 11/12/2019 12:00:00 AM EST active 1 application eCW1 ([facility]) ciclopirox 7.7 MG/ML Topical Cream [Loprox] Loprox 0.77 % Lo prox 0.77 % 11/12/2019 12:00:00 AM EST 1.0 {application} higinio pended Loprox 0.77 % eCW1 ([facility]) ciclopirox 7.7 MG/ML Topical Cream [Loprox] Loprox 0.77 % Lo prox 0.77 % 11/12/2019 12:00:00 AM EST 1.0 {application} higinio pended Loprox 0.77 % eCW1 ([facility]) ciclopirox 7.7 MG/ML Topical Cream [Loprox] Loprox 0.77 % Lo prox 0.77 % 11/12/2019 12:00:00 AM EST 1.0 {application} higinio pended Loprox 0.77 % eCW1 ([facility]) 325 mg (65 mg iron) 11/06/2019 [...] Sulfate 325 (65 Fe) MG e CW1 ([facility]) ferrous sulfate 325 MG Oral Tablet Ferrous Sulfate 325 (65 Fe) MG Ferrous Sulfate 325 (65 Fe) MG 11/06/2019 12:00:00 AM EST 1.0 {tablet} suspended Ferrous Sulfate 325 (65 Fe) MG e CW1 ([facility]) ferrous sulfate 325 MG Oral Tablet Ferrous Sulfate 325 (65 Fe) MG Ferrous Sulfate 325 (65 Fe) MG 11/06/2019 12:00:00 AM EST 1.0 {tablet} suspended Ferrous Sulfate 325 (65 Fe) MG e CW1 ([facility]) ferrous sulfate 325 MG Oral Tablet Ferrous Sulfate 325 (65 Fe) MG Ferrous Sulfate 325 (65 Fe) MG 11/06/2019 12:00:00 AM EST 1.0 {tablet} suspended Ferrous Sulfate 325 (65 Fe) MG e CW1 ([facility]) ferrous sulfate 325 MG Oral Tablet Ferrous Sulfate 325 (65 Fe) MG Ferrous Sulfate 325 (65 Fe) MG 11/06/2019 12:00:00 AM EST 1.0 {tablet} suspended Ferrous Sulfate 325 (65 Fe) MG e CW1 ([facility]) ferrous sulfate 325 MG Oral Tablet Ferrous Sulfate 325 (65 Fe) MG Ferrous Sulfate 325 (65 Fe) MG 11/06/2019 12:00:00 AM EST 1.0 {tablet} suspended Ferrous Sulfate 325 (65 Fe) MG e 1 ([facility]) ferrous sulfate 325 MG Oral Tablet Ferrous Sulfate 325 (65 Fe) MG Ferrous Sulfate 325 (65 Fe) MG 11/06/2019 12:00:00 AM EST 1.0 {tablet} active Ferrous Sulfate 325 (65 Fe) MG eCW1 ([facility]) ferrous sulfate 325 MG Oral Tablet Ferrous Sulfate 325 (65 Fe) MG Ferrous Sulfate 325 (65 Fe) MG 11/06/2019 12:00:00 AM EST 1.0 {tablet} active Ferrous Sulfate 325 (65 Fe) MG eCW1 ([facility]) ferrous sulfate 325 MG Oral Tablet Ferrous Sulfate 325 (65 Fe) MG Ferrous Sulfate 325 (65 Fe) MG 11/06/2019 12:00:00 AM EST 1.0 {tablet} suspended Ferrous Sulfate 325 (65 Fe) MG e 1 ([facility]) ferrous sulfate 325 MG Oral Tablet Ferrous Sulfate 325 (65 Fe) MG Ferrous Sulfate 325 (65 Fe) MG 11/06/2019 12:00:00 AM EST 1.0 {tablet} suspended Ferrous Sulfate 325 (65 Fe) MG e 1 ([facility]) ferrous sulfate 325 MG Oral Tablet Ferrous Sulfate 325 (65 Fe) MG Ferrous Sulfate 325 (65 Fe) MG 11/06/2019 12:00:00 AM EST 1.0 {tablet} suspended Ferrous Sulfate 325 (65 Fe) MG e CW1 ([facility]) ferrous sulfate 325 MG Oral Tablet Ferrous Sulfate 325 (65 Fe) MG Ferrous Sulfate 325 (65 Fe) MG 11/06/2019 12:00:00 AM EST 1.0 {tablet} suspended Ferrous Sulfate 325 (65 Fe) MG e 1 ([facility]) ferrous sulfate 325 MG Oral Tablet Ferrous Sulfate 325 (65 Fe) MG Ferrous Sulfate 325 (65 Fe) MG 11/06/2019 12:00:00 AM EST 1.0 {tablet} suspended Ferrous Sulfate 325 (65 Fe) MG e 1 ([facility]) ferrous sulfate 325 MG Oral Tablet Ferrous Sulfate 325 (65 Fe) MG Ferrous Sulfate 325 (65 Fe) MG 11/06/2019 12:00:00 AM EST 1.0 {tablet} suspended Ferrous Sulfate 325 (65 Fe) MG e 1 ([facility]) ferrous sulfate 325 MG Oral Tablet Ferrous Sulfate 325 (65 Fe) MG Ferrous Sulfate 325 (65 Fe) MG 11/06/2019 12:00:00 AM EST 1.0 {tablet} suspended Ferrous Sulfate 325 (65 Fe) MG e 1 ([facility]) ferrous sulfate 325 MG Oral Tablet Ferrous Sulfate 325 (65 Fe) MG Ferrous Sulfate 325 (65 Fe) MG 11/06/2019 12:00:00 AM EST 1.0 {tablet} suspended Ferrous Sulfate 325 (65 Fe) MG e 1 ([facility]) ferrous sulfate 325 MG Oral Tablet Ferrous Sulfate 325 (65 Fe) MG Ferrous Sulfate 325 (65 Fe) MG 11/06/2019 12:00:00 AM EST 1.0 {tablet} suspended Ferrous Sulfate 325 (65 Fe) MG e 1 ([facility]) ferrous sulfate 325 MG Oral Tablet Ferrous Sulfate 325 (65 Fe) MG Ferrous Sulfate 325 (65 Fe) MG 11/06/2019 12:00:00 AM EST active 1 tablet eCW1 ([facility]) ferrous sulfate 325 MG Oral Tablet Ferrous Sulfate 325 (65 Fe) MG Ferrous Sulfate 325 (65 Fe) MG 11/06/2019 12:00:00 AM EST 1.0 {tablet} suspended Ferrous Sulfate 325 (65 Fe) MG e 1 ([facility]) ferrous sulfate 325 MG Oral Tablet Ferrous Sulfate 325 (65 Fe) MG Ferrous Sulfate 325 (65 Fe) MG 11/06/2019 12:00:00 AM EST 1.0 {tablet} suspended Ferrous Sulfate 325 (65 Fe) MG e 1 ([facility]) ferrous sulfate 325 MG Oral Tablet Ferrous Sulfate 325 (65 Fe) MG Ferrous Sulfate 325 (65 Fe) MG 11/06/2019 12:00:00 AM EST 1.0 {tablet} suspended Ferrous Sulfate 325 (65 Fe) MG e 1 ([facility]) ferrous sulfate 325 MG Oral Tablet Ferrous Sulfate 325 (65 Fe) MG Ferrous Sulfate 325 (65 Fe) MG 11/06/2019 12:00:00 AM EST 1.0 {tablet} suspended Ferrous Sulfate 325 (65 Fe) MG e 1 ([facility]) ferrous sulfate 325 MG Oral Tablet Ferrous Sulfate 325 (65 Fe) MG Ferrous Sulfate 325 (65 Fe) MG 11/06/2019 12:00:00 AM EST 1.0 {tablet} suspended Ferrous Sulfate 325 (65 Fe) MG e 1 ([facility]) ferrous sulfate 325 MG Oral Tablet Ferrous Sulfate 325 (65 Fe) MG Ferrous Sulfate 325 (65 Fe) MG 11/06/2019 12:00:00 AM EST active 1 tablet eCW1 ([facility]) ferrous sulfate 325 MG Oral Tablet Ferrous Sulfate 325 (65 Fe) MG Ferrous Sulfate 325 (65 Fe) MG 11/06/2019 12:00:00 AM EST 1.0 {tablet} suspended Ferrous Sulfate 325 (65 Fe) MG e 1 ([facility]) ferrous sulfate 325 MG Oral Tablet Ferrous Sulfate 325 (65 Fe) MG Ferrous Sulfate 325 (65 Fe) MG 11/06/2019 12:00:00 AM EST 1.0 {tablet} suspended Ferrous Sulfate 325 (65 Fe) MG e 1 ([facility]) ferrous sulfate 325 MG Oral Tablet Ferrous Sulfate 325 (65 Fe) MG Ferrous Sulfate 325 (65 Fe) MG 11/06/2019 12:00:00 AM EST 1.0 {tablet} suspended Ferrous Sulfate 325 (65 Fe) MG e 1 ([facility]) ferrous sulfate 325 MG Oral Tablet Ferrous Sulfate 325 (65 Fe) MG Ferrous Sulfate 325 (65 Fe) MG 11/06/2019 12:00:00 AM EST active 1 tablet eCW1 ([facility]) 20 mg 10/27/2019 12:00:00 AM EST [...] MOUTH EVERY MORNING SOLD: 12/01/2019 [facility] 100 unit/mL 10/01/2019 12:00:00 AM [...] BY MOUTH DAILY SOLD: 12/17/2019 [facility] 300 mg 08/26/2019 12:00:00 AM EST tablet extended release 24 hr 30 TAKE 1 TABLET BY MOUTH EVERY MORNING TAKE 1 TABLET BY MOUTH EVERY MORNING SOLD: 10/28/2019 [facility] BLOOD SUGAR DIAGNOSTIC 08/05/2019 12:00:00 [...] TWICE A DAY SOLD: 02/15/2020 [facility] 20 mg 11/26/2018 12:00:00 AM EST tablet 90 TAKE ONE TABLET BY MOUTH EVERY DAY TAKE ONE TABLET BY MOUTH EVERY DAY SOLD: 10/28/2019 [facility] Insurance Providers Payer name Policy type / Coverage type Policy ID Covered democrat ID Covered democrat's relationship to veloz Policy Veloz Plan Information MEDICARE [id number] SP [id number] [facility] [id number] SP [id number] MCRB [id number] S [id number] R [id number] S [id number] MEDICARE [id number] S [id number] MEDICARE -SWING BED [id number] 18 [id number] MEDICARE PART A -I/P [id number] 18 [id number] MEDICARE PART A -O/P [id number] 18 [id number] UMR -O/P [id number] 18 [id number] MEDICARE [id number] S [id number] MCRB [id number] S [id number] [facility] [id number] SP [id number] [facility] [id number] SP [id number] [facility] OPTIONS [id number] SP [id number] UMR O [id number] S [id number] MEDICARE C [id number] S [id number] U[facility] (pr) Medigap Part B [id number] Self [id number] [place] [id number] Self [id number] [place] (pr) Medigap Part B [id number] Self [id number] Medicare Dme Medigap Part B [id number] Self [id number] Medicare Medicare Primary [id number] Self [id number] Umr Commercial [id number] Self [id number] Umr (pr) Medigap Part B [id number] Self [id number] [place] [id number] Self [id number] ANSI-Commercial [id number] ANSI-Medicare Part B [id number] Medicare Dme Medigap Part B [id number] Self [id number] Medicare Medicare Primary [id number] Self [id number] Umr (pr) Medigap Part B [id number] Self [id number] [place] [id number] Self [id number] ANSI-Commercial [id number] ANSI-Medicare Part B [id number] [place] [id number] Self [id number] Umr (pr) Medigap Part B [id number] Self [id number] [place] (pr) Medigap Part B [id number] Self [id number] Medicare Dme Medigap Part B [id number] Self [id number] Medicare Medicare Primary [id number] Self [id number] Umr (pr) Medigap Part B [id number] Self [id number] [id number] Medicare [facility] Medicare Primary [id number] Self [id number] Medicare [facility] Medicare Primary [id number] Self [id number] Medicare Medigap Part B [id number] Self [id number] Medicare Dme Medicare Primary [id number] Self [id number] Medicare Dme Medigap Part B [id number] Self [id number] Medicare Medicare Primary [id number] Self [id number] [place] Medigap Part B [id number] Self [id number] ANSI-Medicare Part B [id number] ANSI-Commercial [id number] Medicare Dme Medigap Part B [id number] Self [id number] Medicare Medicare Primary [id number] Self [id number] UMR [facility] [id number] SP [id number] MEDICARE [id number] A ANSI-Medicare Part B [id number] ANSI-Commercial [id number] ANSI-Commercial [id number] ANSI-Medicare Part B [id number] r (pr) Medigap Part B [id number] Self [id number] [id number] [place] [id number] Self [id number] Medicare Dme Medigap Part B [id number] Self [id number] Medicare Medicare Primary [id number] Self 9 [id number] ANSI-Medicare Part B [id number] ANSI-Commercial [id number] Medicare Dme Medigap Part B [id number] Self [id number] Medicare Medicare Primary [id number] Self [id number] Medicare Dme Medigap Part B [id number] Self [id number] Medicare Medicare Primary [id number] Self 9 [id number] Medicare Dme Medigap Part B [id number] Self [id number] Medicare Medicare Primary [id number] Self 9 [id number] Medicare Dme Medigap Part B [id number] Self [id number] Medicare Medicare Primary [id number] Self [id number] [facility] [id number] SP [id number] MEDICARE [id number] SP [id number] MEDICARE [id number] SP [id number] Umr Medigap Part B [id number] Self [id number] [place] Medigap Part B [id number] Self [id number] [place] Primary [id number] Self [id number] Medicare Dme Medigap Part B [id number] Self [id number] Medicare Medicare Primary [id number] Self 9 [id number] Medicare Dme Medigap Part B [id number] Self [id number] Medicare Medicare Primary [id number] Self 9 [id number] ANSI-Medicare Part B [id number] ANSI-Commercial [id number] Medicare Dme Medigap Part B [id number] Self [id number] Medicare Medicare Primary [id number] Self [id number] MEDICARE [id number] Medicare Dme Medigap Part B [id number] Self [id number] Medicare Medicare Primary [id number] Self [id number] ANSI-Medicare Part B [id number] ANSI-Commercial [id number] [employer] [facility] Ppo Medigap Part B [id number] Self [id number] Umr Medigap Part B [id number] Self [id number] Medicare (Part B) Medicare Primary [id number] Self [id number] [employer] [facility]CS Medigap Part B [id number] Self [id number] [employer] Ppo Medigap Part B [id number] Self [id number] Umr Medigap Part B [id number] Self [id number] Medicare (Part B) Medicare Primary [id number] Self [id number] ANSI-Medicare Part B [id number] ANSI-Commercial [id number] Medicare Dme Medigap Part B [id number] Self [id number] Medicare Medicare Primary [id number] Self [id number] Medicare Dme Medigap Part B [id number] Self [id number] Medicare Medicare Primary [id number] Self [id number] ANSI-Medicare Part B [id number] ANSI-Commercial [id number] ANSI-Commercial [id number] ANSI-Medicare Part B [id number] Medicare Dme Medigap Part B [id number] Self [id number] Medicare Medicare Primary [id number] Self 9 [id number] Medicare Dme Medigap Part B [id number] Self [id number] Medicare Medicare Primary [id number] Self 9 [id number] Medicare Dme Medigap Part B [id number] Self [id number] Medicare Medicare Primary [id number] Self [id number] Medicare Dme Medigap Part B [id number] Self [id number] Medicare Medicare Primary [id number] Self 9 [id number] Medicare Dme Medigap Part B [id number] Self [id number] Medicare Medicare Primary [id number] Self 9 [id number] ANSI-PacketVideo [id number] ANSMedicare Part B [id number] Umr (pr) Medigap Part B [id number] Self [id number] [place] [id number] Self [id number] Medicare Dme Medigap Part B [id number] Self [id number] Medicare Medicare Primary [id number] Self 9 [id number] Medicare Dme Medigap Part B [id number] Self [id number] Medicare Medicare Primary [id number] Self [id number] [place] Primary [id number] Self [id number] ANS-Medicare Part B [id number] ANSI-Commercial [id number] Umr (pr) Medigap Part B [id number] Self Y1946 7646 [place] Primary [id number] Self [id number] ANSI-Commercial [id number] ANSI-Medicare Part B [id number] ANSI-Medicare Part B [id number] ANSI-Commercial [id number] Umr (pr) Medigap Part B [id number] Self Y1946 7646 [place] Primary [id number] Self [id number] Umr (pr) Medigap Part B [id number] Self [id number] [place] Primary [id number] Self [id number] Medicare Dme Medigap Part B [id number] Self 0 [id number] Medicare Medicare Primary [id number] Self 09 [id number] [place] Medigap Part B [id number] Self [id number] UMR O [id number] S [id number] MEDICARE C [id number] S [id number] A ANSI-Commercial [id number] ANSI-Medicare Part B [id number] Umr (pr) Medigap Part B [id number] Self Y1946 7646 [place] Primary [id number] Self [id number] ANSI-Commercial [id number] ANSI-Medicare Part B [id number] [facility]-Medicare Part B [id number] ANSI-Commercial [id number] [employer] PH[employer] Ppo Medigap Part B [id number] Self [id number] Umr Medigap Part B [id number] Self [id number] Medicare (Part B) Medicare Primary [id number] Self [id number] ANSI-Medicare Part B [id number] ANSI-Commercial [id number] [employer] [id number] SP [id number] Umr (pr) Medigap Part B [id number] Self Y1946 7646 [place] Primary [id number] Self [id number] UMR [facility] CARE [id number] SP [id number] UMR [facility] [id number] SP [id number] Umr (pr) [facility] Part B [id number] Self [id number] [place] Primary [id number] Self [id number] [employer] PPO O [id number] S [id number] [employer] (pr) Medigap Part B [id number] Self [id number] Medicare [facility] Medicare Primary [id number] Self [id number] [employer] [id number] SP [id number] Medicare [facility] Medicare Primary [id number] Self [id number] [place] (pr) Medigap Part B [id number] Self [id number] Medicare Dme Medigap Part B [id number] Self 0 [id number] Medicare Medicare Primary [id number] Self 09 [id number] Medicare Dme Medigap Part B [id number] Self 0 [id number] Medicare Medicare Primary [id number] Self 09 [id number] Medicare Dme Medigap Part B [id number] Self 0 [id number] Medicare Medicare Primary [id number] Self 09 [id number] Medicare [facility] Medicare Primary [id number] Self [id number] [employer] [facility] Ppo Medigap Part B [id number] Self [id number] Medicare (Part B) Medicare Primary [id number] Self [id number] Medicare [facility] Medicare Primary [id number] Self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 Data Aydee rce(s) Supporting Document(s) COVID-19, TINY POSITIVE NEGATIVE [facility] Methodology: Nucleic Acid AmplificationN egative results should be treated as presumptive and, ifinconsistent with clinical signs and symptoms or necessaryfor patient management, should be tested with differentauthorized or cleared molecular tests. Negative results donot preclude SARS-CoV-2 infection and should not be used asthe sole basis for patient management decisions. Negativeresults should be considered in the context of a patient'srecent exposures history and the presence of clinical signsand symptoms consistent with COVID-19.The ID NOW COVID-19 test is only for use under the Food andDrug Administration's Emergency Use Authorization. ID Date Data Source [id number] 12/13/2020 07:55:00 AM EST [facility] Name Value Range Interpretation Code Description Data [facility] rce(s) Supporting Document(s) FGLU 277 mg/dL 70-110 [facility] ID Date Data Source [id number] 12/13/2020 05:47:00 AM EST [facility] Name Value Range Interpretation Code Description Data [facility] rce(s) Supporting Document(s) WBC 6.94 x10E3/uL 4.0-10.5 [facility] RBC 3.48 x10E6/uL 4.70-6.00 [facility] Hemoglobin 8.6 g/dL 14.0-18.0 [facility] Hematocrit 26.1 % 42.0-52.0 [facility] MCV 75.0 fL 81.0-99.0 [facility] MCH 24.7 pg 27.0-31.0 [facility] MCHC 33.0 g/dL 32.7-35.6 [facility] RDW 16.3 % 11.5-14.0 [facility] Platelet count 359 x10E3/uL 150-450 D [facility] ital Delta: 467 on 12/12/20 MPV 9.9 fl 6.9-9.5 [facility] Neutrophils 65.5 % 34-64 [facility] Lymphocytes 30.4 % 25-45 [facility] Monocytes 2.9 % 1.7-10.6 [facility] Eosinophils 0 % 0.4-7.0 [facility] Basophils 0 % 0.1-2.0 [facility] Imm. Gran. 1.2 % 0.1-2.0 [facility] Abs. Neutro. 4.55 x10E3/uL 1.2-7.6 [facility] Abs. Lymph. 2.11 x10E3/uL 1.0-3.5 [facility] Abs. [place]. 0.20 x10E3/uL 0.1-1.0 [facility] Eosin. 0.00 x10E3/uL 0.1-0.7 [facility] Abs. Baso. 0.00 x10E3/uL 0.0-0.1 [facility] Abs. Imm. Gran. 0.08 x10E3/uL 0.0-0.1 N [facility] spital ANRBC% 0 % 0 [facility] ID Date Data Source [id number] 12/13/2020 05:34:00 AM EST [facility] Name Value Range Interpretation Code Description Data Aydee rce(s) Supporting Document(s) GLU 139 mg/dL 70-110 [facility] Patients taking Sulfasalazine may have f alsely depressedGlucose levels. Patients taking Sulfapyridine may havefalsely elevated Glucose levels. Patients should be drawnfor Glucose before the initial administration of eitherdrug. BUN 29 mg/dL 7-23 [facility] CRE 0.739 mg/dL 0.500-1.300 [facility] GFR > 60 mL/min [facility] CHLORIDE 105 mmol/L 99-110 [facility] NA 138 mmol/L 136-147 [facility] POTASSIUM 4.5 mmol/L 3.5-5.1 [facility] TCO2 24 mmol/L 20-33 [facility] ANION GAP 13.5 10.0-20.0 [facility] CA 8.0 mg/dL 8.3-10.7 [facility] ID Date Data Source [id number] 12/13/2020 12:00:00 AM EST [facility] Name Value Range Interpretation Code Description Data Aydee rce(s) Supporting Document(s) SARS-CoV2 Rapid PCR Positive [facility] This lab was ordered by [facility] and reported by [facility]. ID Date Data Source [id number] 12/13/2020 02:47:00 AM EST [facility] Name Value Range Interpretation Code Description Data Aydee rce(s) Supporting Document(s) FGLU 108 mg/dL 70-110 [facility] ID Date Data Source [id number] 12/12/2020 07:58:00 PM EST [facility] Name Value Range Interpretation Code Description Data Aydee rce(s) Supporting Document(s) FGLU 224 mg/dL 70-110 [facility] ID Date Data Source [id number] 12/12/2020 04:02:00 PM EST [facility] [place], [place] [address]EDVDHRTG NOTEPATIENT NAME: CHACHO RING PHYSICIAN: NOLAN TRIANA, DOAUTHOR: Ella PHILIP, [facility]. DATE: 12/09/20 MR#: [id number] NOTE DATE: 12/12/20 RM#: [id number] TIME: 1626 : 50See AddendumSubjectiveCC/Hx Present IllnessCovid infectionEvents Since Last EntryPt seen and examined at the bedside. Pt's oxygen remains stable on room air.Pt likely to be [facility] once alineeda siu informs us that a bed is available.ObjectiveVital SignsVital Signs-24 HRS12/11 2218 0140 0545Temp 98.5 98.5 97.8 97.9Pulse 83 83 87 81 71Resp 12 16 16 17B/P 137/86 137/86 139/87 137/90 130/74B/P MeanPulse Ox 97 97 99 100O2 DeliveryO2 Flow ShqnVuT40512/12 1000 1400Temp 97.6 97.6Pulse 88 90 76Resp 20 12B/P 118/75 118/75 107/66B/P MeanPulse Ox 100 100O2 DeliveryO2 Flow ZebbQxT1Wjorpp/OutputIntake/Output Summary 24 hours12/11 1900 12/12 0700Intake Total 1560Output Total 930Balance 630Intake, IV 600Intake, Oral 960Output, Urine 930Current MedicationsEnoxaparin Sodium (Lovenox) 70 MG BID SUBCUTPravastatin Sodium (Pravachol) 20 MG QHS POAspirin (Aspirin chewable) 81 MG DAILY POBupropion HCl (Wellbutrin Sr) 150 MG BID POFluoxetine HCl (Prozac) 20 MG DAILY POFolic Acid (Folvite) 1 MG DAILY POMetoprolol Tartrate (Lopressor) 50 MG BID POPantoprazole Sodium (Protonix) 40 MG DAILY POAscorbic Acid (Vitamin C) 1,000 MG DAILY POAzithromycin (Zithromax) 500 MG Q24H IVCeftriaxone Sodium (Rocephin) 1 GM Q24H IVCholecalciferol (Vitamin D) 1,000 UNIT DAILY POInsulin Detemir (Levemir) 15 UNIT BID SUBCUTRemdesivir (VEKLURY) 100 MG DAILY IVSodium Ch loride (NSS 0.9% 250ML) 250 MLDexamethasone (Decadron) 6 MG QHS IVInsulin Aspart (Humalog Insulin) 0 QHS SUBCUTInsulin Aspart (Humalog Insulin) 0 AC MEAL SUBCUTGlucose (Insta-Glucose) 15 GM DAILY NEEDED PRN POSodium Chloride (Saline Flush Syr(5ML)) 5 ML Q12H IVSodium Chloride (Saline Flush Syr(5ML)) 5 ML QIDPRN PRN IVExamGeneral Appearance no acute distress, afebrile, alert, awake, conversantHead atraumatic, normocephalicNeck suppleCardiovascular regular rate, Positive S1 and K6Hyyjynqsawm no distress, symmetric expansion, No significant wheeze.Abdomen soft, non-tenderUrinary no flank painExtremities no edemaMuscoskeletal no brittney arthritis, no joint erythemaNeurological alert, oriented x 3, normal speech, no motor deficits, no sensorydeficitsPsych/Mental Status mood neutralResultsLaboratory DataRecent Labs-24 hours12/11 2101 0401 0636ChemistrySodium (136 - 147 mmol/L) 139Potassium (3.5 - 5.1 mmol/L) 5.1Chloride (99 - 110 mmol/L) 104Serum Bicarbonate (20 - 33 mmol/L) 27Anion Gap (10.0 - 20.0) 13.1BUN (7 - 23 mg/dL) 26 HCreatinine (0.500 - 1.300 mg/dL) 0.646Estimated GFR/1.73 m2 (mL/min) > 60Glucose (70 - 110 mg/dL) 77POC Glucose (70 - 110 mg/dL) 141 H 188 H 88Calcium (8.3 - 10.7 mg/dL) 8.1 L12/12 1147ChemistryPOC Glucose (70 - 110 mg/dL) 164 HHematologyWBC (4.0 - 10.5 x10E3/uL) 7.18RBC (4.70 - 6.00 x10E6/uL) 3.82 LHgb (14.0 - 18.0 g/dL) 9.2 LHct (42.0 - 52.0 %) 28.8 LMCV (81.0 - 99.0 fL) 75.4 LMCH (27.0 - 31.0 pg) 24.1 LMCHC (32.7 - 35.6 g/dL) 31.9 LRDW (11.5 - 14.0 %) 16.2 HPlt Count (150 - 450 x10E3/uL) 467 HMPV (6.9 - 9.5 fl) 9.3Immature Gran % (Auto) (0.1 - 2.0 %) 1.0Neut % (Auto) (34 - 64 %) 52.6Lymph % (Auto) (25 - 45 %) 41.4Mono % (Auto) (1.7 - 10.6 %) 5.0Eos % (Auto) (0.4 - 7.0 %) 0 LBaso % (Auto) (0.1 - 2.0 %) 0 LAbs Immat Gran (auto) (0.0 - 0.1 x10E3/uL) 0.07Absolute Neuts (auto) (1.2 - 7.6 x10E3/uL) 3.78Absolute Lymphs (auto) (1.0 - 3.5 x10E3/uL) 2.97Absolute Monos (auto) (0.1 - 1.0 x10E3/uL) 0.36Absolute Eos (auto) (0.1 - 0.7 x10E3/uL) 0.00 LAbsolute Basos (auto) (0.0 - 0.1 x10E3/uL) 0.00Nucleated RBC % (auto) (0 %) 0Results Reviewed labs reviewedAssessment/PlanProblem List1. Pneumonia due to COVID-19 virusA&P- IV dexamethasone 6 mg qhs- IV re mdesivir 100 mg daily- Vit C 1000 mg PO daily- Vit D 1000 unit PO daily- IV ceftriaxone 1 g daily- IV azithromycin 500 mg daily2. A-fibA&P- Lovenox 70 mg sq bid- ASA 81 mg PO daily3. DiabetesA&P- Novolog sliding scale ACHS- Levemir 15 sq units bidAdditional NotesDVT prophylaxis: Lovenox 70 mg sq bidResuscitation status Full codeADDENDUM: Nacho Jaramillo MD on 12/13/[address] [place] [address] be aware th at this pt's O2 sat's on this current admission have been 96-100% on room air. Pt has not required oxygen.DATE SIGNED: 12/13/20 Electronically SignedTIME SIGNED: 1017 NACHO JARAMILLO MD Name Value Range Interpretation Code Description Data Aydee rce(s) Supporting Document(s) ID Date Data Source [id number] 12/12/2020 01:33:00 PM EST [facility] Name Value Range Interpretation Code Description Data Aydee rce(s) Supporting Document(s) FGLU 164 mg/dL 70-110 [facility] ID Date Data Source [id number] 12/12/2020 09:34:00 AM EST [facility] Name Value Range Interpretation Code Description Data Aydee rce(s) Supporting Document(s) WBC 7.18 x10E3/uL 4.0-10.5 [facility] RBC 3.82 x10E6/uL 4.70-6.00 [facility] Hemoglobin 9.2 g/dL 14.0-18.0 [facility] Hematocrit 28.8 % 42.0-52.0 [facility] MCV 75.4 fL 81.0-99.0 [facility] MCH 24.1 pg 27.0-31.0 [facility] MCHC 31.9 g/dL 32.7-35.6 [facility] RDW 16.2 % 11.5-14.0 [facility] Platelet count 467 x10E3/uL 150-450 H [facility] MPV 9.3 fl 6.9-9.5 [facility] Neutrophils 52.6 % 34-64 [facility] Lymphocytes 41.4 % 25-45 [facility] Monocytes 5.0 % 1.7-10.6 [facility] Eosinophils 0 % 0.4-7.0 [facility] Basophils 0 % 0.1-2.0 [facility] Imm. Gran. 1.0 % 0.1-2.0 [facility] Abs. Neutro. 3.78 x10E3/uL 1.2-7.6 [facility] Abs. Lymph. 2.97 x10E3/uL 1.0-3.5 [facility] Abs. [place]. 0.36 x10E3/uL 0.1-1.0 [facility] Abs. Eosin. 0.00 x10E3/uL 0.1-0.7 [facility] Abs. Baso. 0.00 x10E3/uL 0.0-0.1 [facility] Abs. Imm. Gran. 0.07 x10E3/uL 0.0-0.1 [facility] ANRBC% 0 % 0 [facility] ID Date Data Source [id number] 12/12/2020 07:30:00 AM EST [facility] Name Value Range Interpretation Code Description Data Aydee rce(s) Supporting Document(s) FGLU 88 mg/dL 70-110 [facility] ID Date Data Source [id number] 12/12/2020 05:17:00 AM EST [facility] Name Value Range Interpretation Code Description Data Aydee rce(s) Supporting Document(s) GLU 77 mg/dL 70-110 [facility] Patients taking Sulfasalazine may have f alsely depressedGlucose levels. Patients taking Sulfapyridine may havefalsely elevated Glucose levels. Patients should be drawnfor Glucose before the initial administration of eitherdrug. BUN 26 mg/dL 7-23 [facility] CRE 0.646 mg/dL 0.500-1.300 [facility] GFR > 60 mL/min [facility] CHLORIDE 104 mmol/L 99-110 [facility] NA 139 mmol/L 136-147 [facility] POTASSIUM 5.1 mmol/L 3.5-5.1 [facility] TCO2 27 mmol/L 20-33 [facility] ANION GAP 13.1 10.0-20.0 [facility] CA 8.1 mg/dL 8.3-10.7 [facility] ID Date Data Source [id number] 12/12/2020 01:50:00 AM EST [facility] Name Value Range Interpretation Code Description Data Aydee rce(s) Supporting Document(s) FGLU 188 mg/dL 70-110 [facility] ID Date Data Source [id number] 12/11/2020 06:31:00 PM EST [facility] Name Value Range Interpretation Code Description Data Aydee rce(s) Supporting Document(s) FGLU 141 mg/dL 70-110 [facility] ID Date Data Source [id number] 12/11/2020 01:50:00 PM EST [facility] [address] [id number] NOTEPATIENT NAME: CHACHO RING PHYSICIAN: NOLAN TRIANA DOAUTHOR: Serafin Triana DO. DATE: 12/09/20 MR#: [id number] NOTE DATE: 12/11/20 RM#: [id number] TIME: 1357 : 50SubjectiveEvents Since Last EntryPatient seen and examined in the room today. Patient denies any significantcough or wheeze. Patient denies any fever or chill.ObjectiveVital SignsVital Signs-24 HRS12/10 1822 2200 0156 0600Temp 98.0 98.0 98.6 98.0 97.8Pulse 88 96 86 89 87Resp 16 18 16 16 17B/P 110/72 136/79 133/80 132/79 157/93B/P MeanPulse Ox 99 99 99 99 97O2 DeliveryO2 Flow [id number]/[id number] 98.0Pulse 107Resp 12B/P 149/94B/P MeanPulse Ox 96O2 DeliveryO2 Flow RhioHrW8Iqtwyw/OutputIntake/Output Summary 24 hours12/10 1900 12/11 0700Intake Total 1640Output Total 750Balance 890Intake, IV 680Intake, Oral 960Number 2IncontinentVoidsOutput, Urine 750Current MedicationsAscorbic Acid (Vitamin C) 1,000 MG DAILY POAzithromycin (Zithromax) 500 MG Q24H IVCeftriaxone Sodium (Rocephin) 1 GM Q24H IVCholecalciferol (Vitamin D) 1,000 UNIT DAILY POEnoxaparin Sodium (Lovenox) 40 MG DAILY SUBCUTInsulin Detemir (Levemir) 15 UNIT BID SUBCUTRemdesivir (VEKLURY) 100 MG DAILY IVSodium Chloride (NSS 0.9% 250ML) 250 MLDexamethasone (Decadron) 6 MG QHS IVInsulin Aspart (Humalog Insulin) 0 QHS LUEVANO BCUTInsulin Aspart (Humalog Insulin) 0 AC MEAL SUBCUTGlucose (Insta- Glucose) 15 GM DAILY NEEDED PRN POSodium Chloride (Saline Flush Syr(5ML)) 5 ML Q12H IVSodium Chloride (Saline Flush Syr(5ML)) 5 ML QIDPRN PRN IVExamGeneral Appearance no acute distress, afebrile, alert, awake, conversantHead atraumatic, normocephalicNeck no swelling, suppleCardiovascular regular rate, Positive S1 and F1Jbhjomipnsb no distress, symmetric expansion, No significant wheeze.Abdomen soft, non-tender, no distention, normal bowel sounds, no guarding, noreboundUrinary no bladder distention, no flank painExtremities no cyanosis, no edemaMuscoskeletal no brittney arthritis, no joint erythemaNeurological alert, oriented x 3, normal speech, no motor deficits, no sensorydeficitsPsych/Mental Status mood neutralResultsLaboratory DataRecent Labs-24 hours12/10 0342ChemistrySodium (136 - 147 mmol/L) 134 LPotassium (3.5 - 5.1 mmol/L) 5.1Chloride (99 - 110 mmol/L) 102Serum Bicarbonate (20 - 33 mmol/L) 26Anion Gap (10.0 - 20.0) 11.1BUN (7 - 23 mg/dL) 31 HCreatinine (0.500 - 1.300 mg/dL) 0.782Estimated GFR/1.73 m2 (mL/min) > 60Glucose (70 - 110 mg/dL) 224 HPOC Glucose (70 - 110 mg/dL) 348 HCalcium (8.3 - 10.7 mg/dL) 8.7HematologyWBC (4.0 - 10.5 x10E3/uL) 5.86RBC (4.70 - 6.00 x10E6/uL) 3.67 LHgb (14.0 - 18.0 g/dL) 8.7 LHct (42.0 - 52.0 %) 27.2 LMCV (81.0 - 99.0 fL) 74.1 LMCH (27.0 - 31.0 pg) 23.7 LMCHC (32.7 - 35.6 g/dL) 32.0 LRDW (11.5 - 14.0 %) 15.9 HPlt Count (150 - 450 x10E3/uL) 391MPV (6.9 - 9.5 fl) 10.0 HImmature Gran % (Auto) ( 0.1 - 2.0 %) 0.7Neut % (Auto) (34 - 64 %) 68.4 HLymph % (Auto) (25 - 45 %) 27.1Mono % (Auto) (1.7 - 10.6 %) 3.8Eos % (Auto) (0.4 - 7.0 %) 0 LBaso % (Auto) (0.1 - 2.0 %) 0 LAbs Immat Gran (auto) (0.0 - 0.1 x10E3/uL) 0.04Absolute Neuts (auto) (1.2 - 7.6 x10E3/uL) 4.01Absolute Lymphs (auto) (1.0 - 3.5 x10E3/uL) 1.59Absolute Monos (auto) (0.1 - 1.0 x10E3/uL) 0.22Absolute Eos (auto) (0.1 - 0.7 x10E3/uL) 0.00 LAbsolute Basos (auto) (0.0 - 0.1 x10E3/uL) 0.00Nucleated RBC % (auto) (0 %) 0Assessment/PlanProblem List1. COVID-19A&P- Patient started on IV Decadron, IV remdesivir since the evening of 12/08/2020.- No fever record. Patient's oxygenation is above 94% on room air- Continue IV Decadron, IV remdesivir, IV Rocephin and IV azithromycin.Continue with vitamin C and D.2. DiabetesA&P-Patient was recently admitted for severe hypoglycemia with hypothermia andunresponsiveness.-Patient is currently on Decadron which is part of Covid treatment regimen.Steroid has worsened patient's hyperglycemia.- Re-evaluate patient's usp diabetic regimen after patient finishs courseof decadron.3. A-fibA&P-Continue cardiac telemetry. Continue metoprolol-Pradaxa is not part of formulary. Continue Lovenox4. Chronic CHFA&P- No sign of significant fluid overload at this moment.VTE ProphylaxisVTE Prophylaxis: Continue Lovenox.DATE SIGNED: 12/11/20 Electronically SignedTIME SIGNED: 1926 NOLAN TRIANA DO Name Value Range Interpretation Code Description Data Aydee rce(s) Supporting Document(s) ID Date Data Source [id number] 12/11/2020 05:06:00 PM EST [facility] Name Value Range Interpretation Code Description Data Aydee rce(s) Supporting Document(s) FGLU 384 mg/dL 70-110 [facility] ID Date Data Source [id number] 12/11/2020 04:39:00 AM EST [facility] Name Value Range Interpretation Code Description Data Aydee rce(s) Supporting Document(s) GLU 224 mg/dL 70-110 [facility] Patients taking Sulfasalazine may have f alsely depressedGlucose levels. Patients taking Sulfapyridine may havefalsely elevated Glucose levels. Patients should be drawnfor Glucose before the initial administration of eitherdrug. BUN 31 mg/dL 7-23 [facility] CRE 0.782 mg/dL 0.500-1.300 [facility] GFR > 60 mL/min [facility] CHLORIDE 102 mmol/L 99-110 [facility] NA 134 mmol/L 136-147 [facility] POTASSIUM 5.1 mmol/L 3.5-5.1 [facility] TCO2 26 mmol/L 20-33 [facility] ANION GAP 11.1 10.0-20.0 [facility] CA 8.7 mg/dL 8.3-10.7 [facility] ID Date Data Source [id number] 12/11/2020 04:35:00 AM [facility] Name Value Range Interpretation Code Description Data Aydee rce(s) Supporting Document(s) WBC 5.86 x10E3/uL 4.0-10.5 [facility] RBC 3.67 x10E6/uL 4.70-6.00 L [facility] Hemoglobin 8.7 g/dL 14.0-18.0 [facility] Hematocrit 27.2 % 42.0-52.0 [facility] MCV 74.1 fL 81.0-99.0 [facility] MCH 23.7 pg 27.0-31.0 [facility] MCHC 32.0 g/dL 32.7-35.6 [facility] RDW 15.9 % 11.5-14.0 [facility] Platelet count 391 x10E3/uL 150-450 [facility] [place]: 285 on 12/10/20-0434 MPV 10.0 fl 6.9-9.5 [facility] Neutrophils 68.4 % 34-64 [facility] Lymphocytes 27.1 % 25-45 [facility] Monocytes 3.8 % 1.7-10.6 [facility] Eosinophils 0 % 0.4-7.0 [facility] Basophils 0 % 0.1-2.0 [facility] Imm. Gran. 0.7 % 0.1-2.0 [facility] Abs. Neutro. 4.01 x10E3/uL 1.2-7.6 [facility] Abs. Lymph. 1.59 x10E3/uL 1.0-3.5 [facility] Abs. [place]. 0.22 x10E3/uL 0.1-1.0 [facility] Abs. Eosin. 0.00 x10E3/uL 0.1-0.7 [facility] Abs. Baso. 0.00 x10E3/uL 0.0-0.1 [facility] Abs. Imm. Gran. 0.04 x10E3/uL 0.0-0.1 [facility] ANRBC% 0 % 0 [facility] ID Date Data Source [id number] 12/11/2020 11:04:00 PM EST [facility] Name Value Range Interpretation Code Description Data Aydee rce(s) Supporting Document(s) FGLU 88 mg/dL 70-110 [facility] ID Date Data Source [id number] 12/10/2020 04:26:00 PM EST [facility] Name Value Range Interpretation Code Description Data Aydee rce(s) Supporting Document(s) FGLU 348 mg/dL 70-110 [facility] ID Date Data Source [id number] 12/10/2020 01:15:00 PM EST [facility] [address] [id number] NOTEPATIENT NAME: CHACHO RING DATTENTRUNG PHYSICIAN: NOLAN TRIANA DOAUTHOR: Serafin Triana DO. DATE: 12/09/20 MR#: [id number] NOTE DATE: 12/10/20 RM#: [id number] TIME: 1323 : 50SubjectiveEvents Since Last EntryPatient seen and examined in the room today. Patient was resting in bedwithout distress. Patient denies any fever or chill. Patient denies anysevere cough.ObjectiveVital SignsVital Signs-24 HRS12/09430 1500 2135 0158 0609Temp 98.2 98.4 97.4 97.8Pulse 87 91 88 77 79Resp 20 15 17 17 17B/P 120/70 119/70 118/68 117/66B/P MeanPulse Ox 99 98 99 97 99O2 DeliveryO2 Flow VogbZoL0Mbblfg/OutputIntake/Output Summary 24 hours12/09 1900 12/10 0700Intake Total 480 495Output Total 350Balance 480 145Intake, IV 15Intake, Oral 480 480Number 1 3IncontinentVoidsOutput, Urine 350Patient 70.9 kgWeightCurrent MedicationsAscorbic Acid (Vitamin C) 1,000 MG DAILY POAzithromycin (Zithromax) 500 MG Q24H IVCeftriaxone Sodium (Rocephin) 1 GM Q24H IVCholecalciferol (Vitamin D) 1,000 UNIT DAILY POEnoxaparin Sodium (Lovenox) 40 MG DAILY SUBCUTInsulin Detemir (Levemir) 15 UNIT BID SUBCUTRemdesivir (VEKLURY) 100 MG DAILY IVSodium Chloride (NSS 0.9% 250ML) 250 MLDexamethasone (Decadron) 6 MG QHS IVInsulin Aspart (Humalog Insulin) 0 QHS SUBCUTInsulin Aspart (Humalog Insulin) 0 AC MEAL SUBCUTGlucose (Insta-Glucose) 15 GM DAILY NEEDED PRN POSodium Chloride (Saline Flush Syr(5ML)) 5 ML Q12H IVSodium Chloride (Saline Flush Syr(5ML)) 5 ML QIDPRN PRN IVExamGeneral Appearance no acute distress, afebrile, alert, awake, conversantHead atraumatic, normocephalicNeck no swelling, suppleCardiovascular regular rate, Positive S1 and G1Dykctfwyuai no distress, symmetric expansion, No significant wheeze. Lung basesronchi.Abdomen soft, non-tender, no distention, normal bowel sounds, no guarding, noreboundUrinary no bladder distention, no flank painExtremities no cyanosis, no edemaMuscoskeletal no brittney arthritis, no joint erythemaNeurological alert, oriented x 3, normal speech, no motor deficits, no sensorydeficitsPsych/Mental Status mood neutralResultsLaboratory DataRecent Labs-24 hours12/09 1515 2052 0434ChemistrySodium (136 - 147 mmol/L) 133 L 135 LPotassium (3.5 - 5.1 mmol/L) 4.4 5.6 HChloride (99 - 110 mmol/L) 100 102Serum Bicarbonate (20 - 33 mmol/L) 25 23Anion Gap (10.0 - 20.0) 12.4 15.6BUN (7 - 23 mg/dL) 27 H 30 HCreatinine (0.500 - 1.300 mg/dL) 1.020 0.816Estimated GFR/1.73 m2 (mL/min) > 60 > 60Glucose (70 - 110 mg/dL) 362 H 374 HPOC Glucose (70 - 110 mg/dL) 211 HCalcium (8.3 - 10.7 mg/dL) 8.4 8.7C- Reactive Protein (0.0 - 0.49 mg/dL) 9.74 HCoagulationD-Dimer (mg/L) 0.58 HHematologyWBC (4.0 - 10.5 x10E3/uL) 3.57 L 3.09 LRBC (4.70 - 6.00 x10E6/uL) 3.51 L 3.58 LHgb (14.0 - 18.0 g/dL) 8.5 L 8.7 LHct (42.0 - 52.0 %) 26.4 L 27.0 LMCV (81.0 - 99.0 fL) 75.2 L 75.4 LMCH (27.0 - 31.0 pg) 24.2 L 24.3 LMCHC (32.7 - 35.6 g/dL) 32.2 L 32.2 LRDW (11.5 - 14.0 %) 15.7 H 15.7 HPlt Count (150 - 450 x10E3/uL) 283 285MPV (6.9 - 9.5 fl) 10.0 H 10.3 HImmature Gran % (Auto) (0.1 - 2.0 %) 0.6 0.6Neut % (Auto) (34 - 64 %) 58.8 59.3Lymph % (Auto) (25 - 45 %) 32.2 34.6Mono % (Auto) (1.7 - 10.6 %) 8.4 5.5Eos % (Auto) (0.4 - 7.0 %) 0 L 0 LBaso % (Auto) (0.1 - 2.0 %) 0 L 0 LAbs Immat Gran (auto) (0.0 - 0.1 x10E3/uL) 0.02 0.02Absolute Neuts (auto) (1.2 - 7.6 x10E3/uL) 2.10 1.83 Absolute Lymphs (auto) (1.0 - 3.5 x10E3/uL) 1.15 1.07Absolute Monos (auto) (0.1 - 1.0 x10E3/uL) 0.30 0.17Absolute Eos (auto) (0.1 - 0.7 x10E3/uL) 0.00 L 0.00 LAbsolute Basos (auto) (0.0 - 0.1 x10E3/uL) 0.00 0.00Nucleated RBC % (auto) (0 %) 0 0ESR (0 - 15 MM/HR) 83 H012/10 1146ChemistryGlucose (70 - 110 mg/dL) 426 PH 400 HAssessment/PlanProblem List1. COVID-19A&P- Patient started on IV Decadron, IV remdesivir in the evening of 12/08/2020.- No fever record. Currently patient's oxygenation is above 94% on room air-Continue IV Decadron, IV remdesivir, IV Rocephin and IV azithromycin.Continue with vitamin C and D.2. DiabetesA&P-Patient has a worsening glucose level. Patient is on steroids, which is partof his Covid treatment regimen.-Continue consistent carbohydrate diet.-Continue with insulin sliding scale. Re-start patient on long-acting insulin.3. A-fibA&P-Continue cardiac telemetry.4. Chronic CHFA&P-No sign of significant fluid overload at this moment.VTE ProphylaxisVTE Prophylaxis: Continue Lovenox.DATE SIGNED: 12/11/20 Electronically SignedTIME SIGNED: 1926 NOLAN TRIANA DO Name Value Range Interpretation Code Description Data Aydee rce(s) Supporting Document(s) ID Date Data Source [id number] 12/10/2020 12:22:00 PM EST [facility] COMMENTS TO LAB: CRITICAL HIGH FINGERSTI CKDoes the pt. have a limb restriction? N Name Value Range Interpretation Code Description Data Aydee rce(s) Supporting Document(s) GLU 400 mg/dL 70-110 [facility] Patients taking Sulfasalazine may have f alsely depressedGlucose levels. Patients taking Sulfapyridine may havefalsely elevated Glucose levels. Patients should be drawnfor Glucose before the initial administration of eitherdrug. ID Date Data Source [id number] 12/10/2020 07:43:00 AM EST [facility] COMMENTS TO LAB: CRITICAL HIGH FINGERSTI CK Name Value Range Interpretation Code Description Data Aydee rce(s) Supporting Document(s) GLU 426 mg/dL 70-110 [facility] Patients taking Sulfasalazine may have f alsely depressedGlucose levels. Patients taking Sulfapyridine may havefalsely elevated Glucose levels. Patients should be drawnfor Glucose before the initial administration of eitherdrug. ID Date Data Source [id number] 12/10/2020 06:33:00 AM EST [facility] Name Value Range Interpretation Code Description Data Aydee rce(s) Supporting Document(s) GLU 374 mg/dL 70-110 [facility] Patients taking Sulfasalazine may have f alsely depressedGlucose levels. Patients taking Sulfapyridine may havefalsely elevated Glucose levels. Patients should be drawnfor Glucose before the initial administration of eitherdrug. BUN 30 mg/dL 7-23 [facility] CRE 0.816 mg/dL 0.500-1.300 [facility] GFR > 60 mL/min [facility] CHLORIDE 102 mmol/L 99-110 [facility] NA 135 mmol/L 136-147 [facility] POTASSIUM 5.6 mmol/L 3.5-5.1 [facility] TCO2 23 mmol/L 20-33 [facility] ANION GAP 15.6 10.0-20.0 [facility] CA 8.7 mg/dL 8.3-10.7 [facility] ID Date Data Source [id number] 12/10/2020 05:34:00 AM EST [facility] Name Value Range Interpretation Code Description Data Aydee rce(s) Supporting Document(s) WBC 3.09 x10E3/uL 4.0-10.5 [facility] RBC 3.58 x10E6/uL 4.70-6.00 [facility] Hemoglobin 8.7 g/dL 14.0-18.0 [facility] Hematocrit 27.0 % 42.0-52.0 [facility] MCV 75.4 fL 81.0-99.0 [facility] MCH 24.3 pg 27.0-31.0 [facility] MCHC 32.2 g/dL 32.7-35.6 [facility] RDW 15.7 % 11.5-14.0 [facility] Platelet count 285 x10E3/uL 150-450 N [facility] MPV 10.3 fl 6.9-9.5 [facility] Neutrophils 59.3 % 34-64 [facility] Lymphocytes 34.6 % 25-45 [facility] Monocytes 5.5 % 1.7-10.6 [facility] Eosinophils 0 % 0.4-7.0 [facility] Basophils 0 % 0.1-2.0 [facility] Imm. Gran. 0.6 % 0.1-2.0 [facility] Abs. Neutro. 1.83 x10E3/uL 1.2-7.6 [facility] Abs. Lymph. 1.07 x10E3/uL 1.0-3.5 [facility] Abs. [place]. 0.17 x10E3/uL 0.1-1.0 [facility] Abs. Eosin. 0.00 x10E3/uL 0.1-0.7 [facility] Abs. Baso. 0.00 x10E3/uL 0.0-0.1 [facility] Abs. Imm. Gran. 0.02 x10E3/uL 0.0-0.1 N [facility] spital ANRBC% 0 % 0 [facility] ID Date Data Source [id number] 12/10/2020 12:00:00 AM EST [facility] Name Value Range Interpretation Code Description Data Aydee rce(s) Supporting Document(s) FGLU 211 mg/dL 70-110 [facility] ID Date Data Source [id number] 12/09/2020 04:05:00 PM EST [facility] Name Value Range Interpretation Code Description Data Aydee rce(s) Supporting Document(s) ESR 83 MM/HR 0-15 [facility] ID Date Data Source [id number] 12/09/2020 04:05:00 PM EST [facility] Name Value Range Interpretation Code Description Data Aydee rce(s) Supporting Document(s) D-DIMER 0.58 mg/L [facility] CUT OFF VALUE = 0.5 mg/L The negative pr edictive value for DVT or PE is at 98% whenthe result is below the cut off. ID Date Data Source [id number] 12/09/2020 03:54:00 PM EST [facility] Name Value Range Interpretation Code Description Data Aydee rce(s) Supporting Document(s) GLU 362 mg/dL 70-110 [facility] Patients taking Sulfasalazine may have f alsely depressedGlucose levels. Patients taking Sulfapyridine may havefalsely elevated Glucose levels. Patients should be drawnfor Glucose before the initial administration of eitherdrug. BUN 27 mg/dL 7-23 [facility] CRE 1.020 mg/dL 0.500-1.300 [facility] GFR > 60 mL/min [facility] CHLORIDE 100 mmol/L 99-110 [facility] NA 133 mmol/L 136-147 [facility] POTASSIUM 4.4 mmol/L 3.5-5.1 [facility] TCO2 25 mmol/L 20-33 [facility] ANION GAP 12.4 10.0-20.0 [facility] CA 8.4 mg/dL 8.3-10.7 [facility] ID Date Data Source [id number] 12/09/2020 03:54:00 PM EST [facility] Name Value Range Interpretation Code Description Data Aydee rce(s) Supporting Document(s) C-REACTIVE PROT 9.74 mg/dL 0.0-0.49 [facility] ID Date Data Source [id number] 12/09/2020 03:34:00 PM EST [facility] Name Value Range Interpretation Code Description Data Aydee rce(s) Supporting Document(s) WBC 3.57 x10E3/uL 4.0-10.5 [facility] RBC 3.51 x10E6/uL 4.70-6.00 [facility] Hemoglobin 8.5 g/dL 14.0-18.0 [facility] Hematocrit 26.4 % 42.0-52.0 [facility] MCV 75.2 fL 81.0-99.0 [facility] MCH 24.2 pg 27.0-31.0 [facility] MCHC 32.2 g/dL 32.7-35.6 [facility] RDW 15.7 % 11.5-14.0 [facility] Platelet count 283 x10E3/uL 150-450 N [facility] MPV 10.0 fl 6.9-9.5 [facility] Neutrophils 58.8 % 34-64 [facility] Lymphocytes 32.2 % 25-45 [facility] Monocytes 8.4 % 1.7-10.6 [facility] Eosinophils 0 % 0.4-7.0 [facility] Basophils 0 % 0.1-2.0 [facility] Imm. Gran. 0.6 % 0.1-2.0 [facility] Abs. Neutro. 2.10 x10E3/uL 1.2-7.6 [facility] Abs. Lymph. 1.15 x10E3/uL 1.0-3.5 [facility] Abs. [place]. 0.30 x10E3/uL 0.1-1.0 [facility] Abs. Eosin. 0.00 x10E3/uL 0.1-0.7 [facility] Abs. Baso. 0.00 x10E3/uL 0.0-0.1 [facility] Abs. Imm. Gran. 0.02 x10E3/uL 0.0-0.1 [facility] ANRBC% 0 % 0 [facility] ID Date Data Source [id number] 12/09/2020 02:49:00 PM EST [address] [id number] AND PHYSICALPATIENT NAME: CHACHO RING MR#: [id number] PHYSICIAN: NOLAN TRIANA DOAUTHOR: Nolan Triana DO DATE: 12/09/20 RM#: [id number] & PHYSICAL DATE: 12/09/20 : 50EVALUATION TIME: 1515HistoryChief Complaint/Admit ReasonCovid infectionHistory of Presenting IllnessPatient is a 70 years old male with a past medical history significant fordiabetes, atrial fibrillation, CHF, gout, hypertension and recently diagnosedCOVID infection with just [facility]. Patient [facility] transferred back to [facility] from [facility] due to concern for worsening COVID infection.Patient was recently diagnosed with Covid infection in the [facility]. Patient initially presented to [facility] emergency room afterpatient was found unresponsive with severe hypoglycemia and hypothermia.Patient was transferred to [facility] ICU for severe hypoglycemia management.Patient symptom quickly resolved with IV dextrose and insulin adjust ments.Patient had been afebrile without significant hypoxia; patient was maintaininghis oxygenation on room air. Patient was transferred back to [facility]. Patient was found to have a fever in the evening of 12/08/2020.Patient was found to have oxygen saturation of 93% patient started on theoxygen supplement. Patient started on the remdesivir. Imaging study wasperformed including CTs. Patient was found to have bilateral parenchymaldisease. Due to concern for possible acute worsening of the respiratory statusand lack of respiratory therapist support, [facility] During encounter, patient denies any fever orchill. Patient only noticed intermittent coughs. Denies any shortness ofbreath or chest pain.Past Medical/Surgical HistoryPast M edical/Surgical HistoryMedical ProblemsA-fibCHF (congestive heart failure)Chronic CHFCOVID-19DiabetesHypoglycemiaUnresponsiveReconciled Home Med ListSee Reconciled Home Medication ListAllergiesCoded Allergies:No Known Drug Allergies (12/06/20)Family history Father: in 60s. Doesn't know the cause of . Mother: Alive. 80s.Social History no tobacco use, no alcohol use, no recreational drug useReview of SystemsConstitutionalDenies: Pain, Fever, Chills, Generalized weakness.SkinDenies: laceration, rash, swelling.RespiratoryReports: productive cough (Intermittent). Denies: dyspnea, wheezing.CardiovascularDenies: chest pain, edema, palpitations.GastrointestinalDenies: nausea, vomiting, abdominal pain, diarrhea.GenitorurinaryDenies: dysuria, flank pain, frequency, urgency.MusculoskeletalDenies: extremity pain, extremity swelling, joint pain, joint swelling.HematologyDenies: bleeding, bruising.EndocrineReports: diabetic.NeurologicalDenies: focal weakness, headache, numbness, seizure.PsychDe nies: anxiety, depression.ExamVital SignsVital Signs-24 [id number]/244202KjxpFnhfv 87Resp 20B/PB/P MeanPulse Ox 99O2 DeliveryO2 Flow IzwoFuR1Qgsetnhz ExaminationGeneral Appearance no acute distress, afebrile, alert, awake, conversantHead atraumatic, normocephalicNeck no swelling, suppleCardiovascular regular rate, Positive S1 and M9Ehpfjufxmku no distress, symmetric expansion, No significant wheeze. Lung basesronchi.Abdomen soft, non- tender, no distention, normal bowel sounds, no guarding, noreboundUrinary no bladder distention, no flank painExtremities no cyanosis, no edemaMuscoskeletal no brittney arthritis, no joint erythemaNeurological alert, oriented x 3, normal speech, no motor deficits, no sensorydeficitsSkin AssessmentSkin dry, intact, no rashPsych/Mental Status mood neutralData ReviewImagingCT of chest from [facility] reviewed. Bilateral lung parenchymal changesAssessment/PlanDiagnosis/Problem1. COVID-19A&P-Patient transferred back to [facility] from [facility] for COVID managements. Patient was found to have oxygen saturation of93% and patient started on the 2 L oxygen. Patient started on remdesivir andDecadron in the evening of 12/08/2020. Due to concern for acute oxygendesaturation and lack of respiratory therapist support, patient [facility] for higher level care.-Respiratory therapist was notified and assessed the patient shortly patient'sarrival. Continue monitoring patient's oxygenation closely. Continuetitrating oxygen as tolerated.-Continue IV Decadron, IV remdesivir, IV Rocephin and IV azithromycin.Continue with vitamin C and D.2. DiabetesA&P- Continue consistent carbohydrate diet.-Continue with insulin sliding scale.3. A-fibA&P-Continue cardiac telemetry.4. Chronic CHFA&P-No sign of significant fluid overload at this moment.VTE ProphylaxisVTE Prophylaxis: Continue Lovenox..CQM VTE HISTORYVTE HISTORYPrior VTE? NoDATE SIGNED: 12/11/20 Electronically SignedTIME SIGNED: 1926 NOLAN TRIANA DO Name Value Range Interpretation Code Description Data Aydee rce(s) Supporting Document(s) ID Date Data Source [id number] 12/09/2020 10:42:00 [place] [address] PHONE: [phone] FAX: [phone] Name .................. : LUCITA FLOR Acct Number.................. : [id number] ROOM. ................. : 118-2 MR Number ................... : [id number] Stay type ............. : I/P Discharge Date......... ... : Admit Date ......... : 12/08/20 Admit Phys .................... : OSCAR-YULI Date of ....... : 1950 Family Phys ................... : [employer] Phone .................. : [phone] Age ................................ : 70 Film# .................. .:[id number] Sex ................................. : M Unsigned transcriptions are preliminary reports and do not represent a medical or legal document CHEST PORTABLE [id number] COMPLETE:12/08/20 20:50 4560 (JAYA SON FOR CHEST: FEVER PORTABLE CHEST X-RAY: INDICATION: Fever. FINDINGS: The lungs are well-expanded with mild chronic interstitial changes. No focal infiltrate. The cardiac silhouette is normal in size and contour. No acute osseous abnormality. IMPRESSION: No acute pulmonary process. Electronically Reviewed and Signed By Ulysses Elmore M.D. , 12/09/20 10:42, [facility] Transcribe Initials: BALDO , Transcribe Date: 12/08/20 22:42, Dictation Date: Copy for: 710 MED REC DISCHARGED Page 1 of 1 Name Value Range Interpretation Code Description Data Aydee rce(s) Supporting Document(s) ID Date Data Source [id number] 12/14/2020 06:07:00 PM [facility] [address] Name Value Range Interpretation Code Description Data Aydee rce(s) Supporting Document(s) Bacteria identified in Blood by Culture [facility] NO GROWTH AFTER 5 DAYS ID Date Data Source [id number] 12/15/2020 08:29:00 AM [facility] Name Value Range Interpretation Code Description Data Aydee rce(s) Supporting Document(s) CULTURE BLOOD [facility] Ho spital _CULTURE BLOOD_ TEST PERFORM ED AT [address] [address] CLIA# [id number] SEE SCANNED REPORT{ PRELIM ID Date Data Source [id number] 12/09/2020 06:53:[address] [facility] Name Value Range Interpretation Code Description Data Aydee rce(s) Supporting Document(s) Fibrinogen [Mass/volume] in Platelet poor plasma by Co agulation assay 538.0 mg/dL 179 - 506 H [facility] ID Date Data Source [id number] 12/15/2020 08:29:[address] [facility] Name Value Range Interpretation Code Description Data Aydee rce(s) Supporting Document(s) CULTURE BLOOD [facility] spital _CULTURE BLOOD_ TEST PERFORM ED AT [address] [address] CLIA# [id number] SEE SCANNED REPORT{ PRELIM ID Date Data Source [id number] 12/09/2020 09:00:[address] [facility] Name Value Range Interpretation Code Description Data Aydee rce(s) Supporting Document(s) COMPREHENSIVE METABOLIC PANEL [facility] COMPREHENSIVE METABOLIC PANEL Sodium [Moles/volume] in Serum or Plasma 129 mEq/L 134 - 153 L [facility] Potassium [Moles/volume] in Serum or Plasma 4.9 mEq/L 3.6 - 5.0 [facility] Chloride [Moles/volume] in Serum or Plasma 92 mEq/L 98 - 107 L [facility] Carbon dioxide, total [Moles/volume] in Serum or Plasma 18 MEQ/L 22 - 30 L [facility] Glucose [Mass/volume] in Serum or Plasma 456 MG/DL 70 - 99 [facility] CALL/ READ BACK CALLED TO [facility] BY: SHAYNA [facility] DATE/TIME 12.09.20 @ 0905 [facility] ospital BUN 22 MG/DL 7 - 21 H [facility] Creatinine [Mass/volume] in Serum or Plasma 0.9 MG/DL 0.7 - 1.5 [facility] BUN/CREAT 24 8 - 27 [facility] Protein [Mass/volume] in Serum or Plasma 6.1 G/DL 6.3 - 8.2 L [facility] Albumin [Mass/volume] in Serum or Plasma 3.1 G/DL 3.9 - 5.0 L [facility] Globulin [Mass/volume] in Serum by calculation 3.0 GM/DL 2.4 - 3.2 [facility] A/G RATIO 1.0 0.8 - 2.0 [facility] Calcium [Mass/volume] in Serum or Plasma 8.4 MG/DL 8.4 - 10.2 [facility] Bilirubin.total [Mass/volume] in Serum or Plasma <0.7 MG/DL 0.2 - 1.3 [facility] Alkaline phosphatase [Enzymatic activity/volume] in Serum or Plasma 100 U/L 38 - 126 [facility] Aspartate aminotransferase [Enzymatic activity/volume] in Serum or Plasma 21 U/L 5 - 40 [facility] Alanine aminotransferase [Enzymatic activity/volume] in Seru m or Plasma 14 U/L 7 - 56 [facility] Anion gap 3 in Serum or Plasma 19.0 mmol/L 8.0 - 16.0 H [facility] AGE 70 yrs [facility] NON-AA GFR >60 mL/min [facility] ital AFR AMER GFR >60 mL/min [facility] spital Male GFR In terprentation 20-49 [...] >32 mL/min Normal ID Date Data Source [id number] 12/09/2020 08:36:00 AM EST [facility] Name Value Range Interpretation Code Description Data Aydee rce(s) Supporting Document(s) CBC W/AUTOMATED DIFF [facility] COMPLETE BLOOD COUNT Leukocytes [#/volume] in Blood by Automated count 3.1 10^3/uL 4.2 - 1 1.0 L [facility] Erythrocytes [#/volume] in Blood by Automated count 3.58 10^6/uL 4. 50 - 6.30 L [facility] Hemoglobin [Mass/volume] in Blood 8.7 g/dL 14.0 - 16.0 L [facility] Hematocrit [Volume Fraction] of Blood by Automated count 27.5 % 4 1.0 - 51.0 L [facility] Erythrocyte mean corpuscular volume [Entitic volume] by Auto mated count 76.8 fL 80.0 - 94.0 L [facility] Erythrocyte mean corpuscular hemoglobin [Entitic mass] by Automated count 24.3 pg 27.0 - 34.0 L [facility] Erythrocyte mean corpuscular hemoglobin concentration [Mass/volume] by Automated count 31.6 g/dL 31.0 - 36.0 [facility] Erythrocyte distribution width [Ratio] by Automated count 15.9 % 11.5 - 14.8 H [facility] Platelets [#/volume] in Blood by Automated count 242 10^3/uL 150 - 45 0 [facility] Platelet mean volume [Entitic volume] in Blood by Automated count 10.4 fL 7.4 - 10.4 [facility] Neutrophils/100 leukocytes in Blood by Automated count 66.6 % 37. 0 - 80.0 [facility] Lymphocytes/100 leukocytes in Blood by Manual count 29.2 % 25.0 - 40.0 [facility] Monocytes/100 leukocytes in Blood by Automated count 3.9 % 3.0 - 8.0 [facility] Eosinophils/100 leukocytes in Blood by Automated count 0.0 % 0.0 - 7.0 [facility] Basophils/100 leukocytes in Blood by Automated count 0.0 % 0.0 - 2.0 [facility] %IG 0.3 % 0.0 - 0.0 H [facility] al %NRBC 0.0 % 0.0 - 0.0 [facility] al Neutrophils [#/volume] in Blood by Automated count 2.03 10^3/uL 2.00 - 6.90 [facility] Lymphocytes [#/volume] in Blood by Automated count 0.89 10^3/uL 0.60 - 3.40 [facility] Monocytes [#/volume] in Blood by Automated count 0.12 10^3/uL 0.00 - 0.90 [facility] Eosinophils [#/volume] in Blood by Automated count 0.00 10^3/uL 0.00 - 0.70 [facility] Basophils [#/volume] in Blood by Automated count 0.00 10^3/uL 0.00 - 0.20 [facility] #IG 0.01 10^3/uL 0.00 - 0.10 [facility] ospital #NRBC 0.00 10^3/uL 0.00 - 0.00 [facility] ospital MANUAL DIFF SEE BELOW [facility] ital Segmented neutrophils/100 leukocytes in Blood by Manual count 65 % 37 - 80 [facility] %LYMPH 28 % 25 - 40 [facility] al %MONO 6 % 3 - 8 [facility] al Metamyelocytes/100 leukocytes in Blood by Manual count 1 % [facility] RBC MORPH SEE BELOW [facility] al Anisocytosis [Presence] in Blood by Light microscopy 1+ MICKEY L: NONE SEEN A [facility] Microcytes [Presence] in Blood by Light microscopy 1+ NORMAL: NONE SEEN A [facility] Poikilocytosis [Presence] in Blood by Light microscopy 1+ NOR MAL: NONE SEEN A [facility] HYPO 1+ NORMAL: NONE SEEN A [facility] { SICKLE CELL (NORMAL: NONE SEEN ) Ovalocytes [Presence] in Blood by Light microscopy 1+ NORMAL: NONE SEEN A [facility] Platelet adequacy [Presence] in Blood by Light microscopy NORMAL NORMAL: NORMAL [facility] COMMENT: ID Date Data Source [id number] 12/09/2020 08:22:00 AM [facility] Name Value Range Interpretation Code Description Data Aydee rce(s) Supporting Document(s) Prothrombin time (PT) 15.4 SECONDS 11.0 - 15.5 [facility] INR in Platelet poor plasma by Coagulation assay 1.16 0.93 - 1. 23 [facility] aPTT in Blood by Coagulation assay 75.4 SECONDS 24.8 - 36.7 H [facility] \\BLDo\\INR INTERPRETATION\\BLDx\\ Therapeutic range for Coumadin and related oral anticoagulants. - International Normalized Ratio (INR): 2.0 - 3.0 for Venous Thrombosis, Pulmonary Embolus, Tissue heart valves, Acute NC Atrial Fibrillation, Valvular heart disease and recurrent Systemic Embolism. - International Normalized Ratio (INR): 2.5 - 3.5 for Mechanical Prosthetic valve. ID Date Data Source [id number] 12/09/2020 03:30:00 AM [facility] [address] [place] [address] ---------NAME--------- NUMBER SEX AGE ADMIT DISC. XRAY# F/C TYPE LUCITA FLOR [id number] M 70 12/08/20 [id number] MB4 I/P DATE OF : 1950 M/R# [id number] #: [id number] LOCATION: TRANSCRIBED: 12/09/20 3:[address] CTA CHEST NON-CORONARY W [id number] COMPLETED:12/09/20 2:59 DLA 4562 {REASON FOR EXAM: covid 19 PHYSICIAN: INES========= R A D I O L O G Y R E P O R T PATIENT HISTORY:ACTUAL DOSE 490.5 mGy*cm fever isovue 370 75cc [id number] 2023 was givenPatient male. Verification of 2 patient identifiers performed.Time Out performed. type and amount of contrast used, correct body part and sideall verified prior to examination. Exam has been sent to [employer] [facility] Radiology - If further informationis needed, the number is . Report will be faxed to ED and/or Xray/ SOFT TISSUE (DICOM Hx)EXAM: CTA Chest with Intravenous Contrast for PE evaluationCLINICAL HISTORY: ACTUAL DOSE 490.5 mGy*cm fever isovue 370 75cc [id number] was given Patient male. Verification of 2 patient identifiers performed.Time Out performed. type and amount of contrast used, correct body part and sideall verified prior to examination. [facility] If further information is needed, the number is .Report will be faxed to ED and/or XrayTECHNIQUE: Axial CTA images of the chest with intravenous contrast using apulmonary embolism protocol. Multiplanar reconstructed images were created andreviewed. All CT scans at this facility use dose modulation, iterativereconstruction, and/or weight-based dosing when appropriate to reduce radiationdose to as low as reasonably achievable.CONTRAST: With; isovue 370 75cc [id number] Mar 2023 was administered withoutincident.COMPARISON: None provided.FINDINGS:PULMONARY ARTERIES: No evidence of central or segmental pulmonary embolism isseen.AORTA: There is no evidence for aneurysm or dissection of the thoracic aorta.LUNGS: Moderate indistinct groundglass/alveolar opacities in the lungsbilaterally.PLEURAL SPACES: Small pleural effusions.HEART: Trace pericardial effusion.LYMPH NODES: No lymphadenopathy is evident.BONES: No focal osseous abnormality or acute fracture.UPPER ABDOMEN: Left renal cyst is noted measuring 16 mm.IMPRESSIONS:No evidence of pulmonary embolus.Moderate indistinct groundglass/alveolar opacities in the lungs bilaterallyconsistent with alveolitis/multifocal pneumonia.Small pleural effusions. Trace pericardial effusion.While performing the above CT examination, radiation dose reduction wasaccomplished utilizing automated exposure control, adjusting of the mA and kVbased on the patient's body size and/or the use of imperative reconstructivetechniques.Electronically Signed By:Paul Hernandez M.D. , RadiologistDate/Time: 12/09/20 03:30 Name Value Range Interpretation Code Description Data Aydee rce(s) Supporting Document(s) ID Date Data Source [id number] 12/09/2020 02:15:00 AM EST [facility] Name Value Range Interpretation Code Description Data Aydee rce(s) Supporting Document(s) URINALYSIS [facility] [place] URINALYSIS SOURCE Clean Catch [facility] ital COLOR yellow NORMAL: Yellow [facility] CLARITY clear NORMAL: Clear [facility] Specific gravity of Urine by Test strip 1.015 1.001 - 1.030 [facility] pH 5 5 - 9 [facility] Glucose [Mass/volume] in Urine by Test strip 1000 NORMAL: Negat alayna [facility] Bilirubin.total [Presence] in Urine by Test strip NEG NORMAL: Negative [facility] Ketones [Presence] in Urine by Test strip 50 NORMAL: Negative [facility] Protein [Mass/volume] in Urine by Test strip 100 NORMAL: Negat alayna [facility] Nitrite [Presence] in Urine by Test strip NEG NORMAL: Negative [facility] BLOOD 150 NORMAL: Negative A [facility] Leukocyte esterase [Presence] in Urine by Test strip NEG MICKEY L: Negative [facility] Urobilinogen [Mass/volume] in Urine by Test strip NOR less gianna n 1.0 mg/dL [facility] MICROSCOPIC See Below [facility] ital WBC 0 - [address]: [address] [facility] Erythrocytes [#/volume] in Urine by Test strip 5 - 7 NORMAL: NON E SEEN A [facility] EPITHELIAL FEW NORMAL: NONE SEEN [facility] Bacteria [Presence] in Urine sediment by Light microscopy Tr joel NORMAL: NONE SEEN [facility] Mucus [Presence] in Urine sediment by Light microscopy Trace NORMAL: NONE SEEN [facility] ID Date Data Source [id number] 12/08/2020 08:17:[address] [id number] SUMMARYPATIENT NAME: CHACHO RING MR#: [id number] PHYSICIAN: NOLAN TRIANA DOAUTHOR: Nolan Triana DO DATE: 12/05/20 #: ICUDISCHARGE DATE: 12/08/20 : 50Summary of HospitalizationReason for AdmissionUnresponsiveness, persistent hypoglycemia and hypothermiaHospital CoursePatient is a 70 years old male resident from [facility] with a pastmedical history significant for diabetes, atrial fibrillation, CHF, gout,hypertension and recently diagnosed COVID [facility] patient was found unresponsive in the senior living. Patient wasfound to have persistent hypoglycemia and hypothermia. Patient received a doseof D50 however patient glucose remained low. Due to lack of ICU, [facility] and management. Patient placedin ICU with Covid precaution. Patient continued on the D5W and patient glucoselevel monitored frequently. Patient's long-acting insulin were on hold.Patient's mentation has improved significantly since patient admitted to theICU. No recurrence of hypothermia noted. Patient restarted on short actinginsulin sliding scale once patient was able to tolerate oral intake. Patientinsulin requirements was monitored closely. On 12/08/2020, [facility] is [facility]. Recommend following withoutpatient provider for further insulin regimen adjustment. Patient was nota ble to discharge back to the senior living due to current guideline for COVIDpatient.Patient was tested positive for COVID. However patient has not demonstratedany significant respiratory symptoms. Patient was able to maintain hisoxygenation on room air. No fever was reported.Diagnoses (Current Visit)Problem List1. Hypoglycemia2. Unresponsive3. COVID-194. A-fib5. Diabetes6. Chronic CHFDiagnoses (Other)Past Pertinent History1. A-fib2. Diabetes3. Chronic CHFPatient's Discharge ConditionVital SignsVital Signs-LastResult Date TimeB/P 120/73 12/08 0831Pulse 83 12/08 0831Resp 19 12/08 0806Pulse Ox 98 12/08 0432Temp 99.1 12/08 0432Patient's Discharge ConditionDischarge Date 12/08/20Discharge Conditon fairDischarge DispositionC[facility] facilityPhysical ExaminationGeneral Appearance no acute distress, afebrile, alert, awake, conversantHead atraumatic, normocephalicNeck no swelling, suppleCardiovascular regular rate, Positive S1- S2.Respiratory clear to auscultation, no distress, aerating wellAbdomen soft, non-tender, no distention, no guarding, no reboundUrinary no flank painExtremities no cyanosis, no edemaMuscoskeletal normal inspection, no brittney arthritisNeurological alert, oriented x 3, normal speech, no motor deficits, no sensorydeficits, Decreased sensation of bilateral lower extremities.Psych/Mental Status mood neutralPatient/Family InstructionsPrescriptionsStop taking the following medications:Insulin Degludec (Tresiba) 100 UNIT/1 ML VIAL32 UNIT SUB-Q DAILYContinue taking these medications:Allopurinol (Allopurinol) 100 MG IKBIXE60 MILLIGRAM TABLET DAILYAscorbic Acid* (Vitamin C*) 500 MG [id number] MILLIGRAM Orally TWICE DAILYAspirin (Adult Low Dose Aspirin EC) 81 MG TABLET.DR81 MILLIGRAM Orally DAILYCHOLECALCIFEROL (Vitamin D*) 1,000 UNIT TABLET1,000 UNIT Orally DAILYCyanocobalamin (Vitamin B-12) (Vitamin B-12) 1,000 MCG CAPSULE1,000 MICROGRAM Orally DAILYBisacodyl (Dulcolax) 10 MG SUPP.RECT10 MILLIGRAM Rectally DAILY as needed for ConstipationEsomeprazole Magnesium (Esomeprazole Magnesium) 40 MG CAPSULE.DR40 MILLIGRAM Orally DAILYFAMOTIDINE (PEPCID*) 20 MG YGFOGO29 MILLIGRAM Orally DAILYFluoxetine* (Prozac*) 20 MG [id number] MILLIGRAM Orally DAILYFOLIC ACID* (Folvite*) 1 MG TABLET0.4 MILLIGRAM Orally DAILYGlucagon (Gvoke Hypopen) 1 MG/0.2 ML AUTO.INJCT1 MILLIGRAM SUB-Q As directed as needed for Low Blood SugarInsulin Lispro (Insulin Lispro) 100 UNIT/1 ML [id number] UNIT SUB-Q BEFORE MEALS & AT BEDTIMELISINOPRIL (LISINOPRIL) 20 MG QHUVOH22 MILLIGRAM Orally DAILYMagnesium Oxide (Magox 400) 400 MG DWQESF346 MILLIGRAM TABLET 1700Metoprolol XL* (Toprol XL*) 50 MG TAB.ER.24H50 MILLIGRAM Orally TWICE DAILYMAGNESIUM HYDROXIDE (Milk Of Magnesia) 400 MG/5 ML ORAL.SUSP30 MILLILITERS Orally EVERY 72 HOURS as needed for ConstipationMULTIVITAMIN (Multi-Vitamin Daily) 1 EACH TABLET1 TABLET Orally DAILYDABIGATRAN ETEXILATE MESYLATE (PRADAXA) 150 MG QPIOLQN308 MILLIGRAM Orally TWICE DAILYPRAVASTATIN SODIUM (PRAVASTATIN) 20 MG XTCOQK31 MILLIGRAM Orally 1700RAMELTEON (ROZEREM) 8 MG TABLET8 MILLIGRAM Orally AT BEDTIME as needed for InsomniaSANTYL (Collagenase*) 30 GM OINT...G.0 GM Topically TWICE DAILYBUDESONIDE/FORMOTEROL FUMARATE (Symbicort 80-4.5 Mcg Inhaler) 10.2 GMHFA.AER.AD2 Puff Inhalation TWICE DAILYZinc Sulfate (Zinc-220) 220 MG TZBXFLV347 MILLIGRAM Orally DAILYBupropion HCl (Bupropion XL) 300 MG TAB.ER.03J791 MILLIGRAM Orally DAILYDischarge Activity: As toleratedDischarge diet: Consistent CarbohydrateFollow-upFollow up with your Primary care physicianTime spent by provider to complete discharge > 30 minutesDATE SIGNED: 12/11/20 Electronically SignedTIME SIGNED: 1926 [address]ISS[address]O Samantha Name Value Range Interpretation Code Description Data Aydee rce(s) Supporting Document(s) ID Date Data Source [id number] 12/09/2020 05:43:00 AM [facility] Name Value Range Interpretation Code Description Data Aydee rce(s) Supporting Document(s) C reactive protein [Mass/volume] in Serum or Plasma by High sensitivity method 99.77 MG/L 1.00 - 3.00 H [facility] HS-CRP CUT-OFF: RELATIVE RISK: <1.0 mg/L Low 1.0 - 3.0 mg/L Average >3.0 mg/L High Optimally, the average of HS-CRP results repeated two weeks apart should be used for risk assessment. ID Date Data Source [id number] 12/09/2020 05:43:00 AM [facility] Name Value Range Interpretation Code Description Data Aydee rce(s) Supporting Document(s) Ferritin [Mass/volume] in Serum or Plasma 117.6 ng/mL 5.0 - 244 [facility] ID Date Data Source [id number] 12/09/2020 05:43:00 AM [facility] Value Range Interpretation Code Description Data Aydee rce(s) Supporting Document(s) Lactate dehydrogenase [Enzymatic activity/volume] in Serum o r Plasma 189 U/L 135 - 225 [facility] ID Date Data Source [id number] 12/08/2020 05:42:00 PM [facility] Name Value Range Interpretation Code Description Data Aydee rce(s) Supporting Document(s) COMPREHENSIVE METABOLIC PANEL [facility] COMPREHENSIVE METABOLIC PANEL Sodium [Moles/volume] in Serum or Plasma 132 mEq/L 134 - 153 L [facility] Potassium [Moles/volume] in Serum or Plasma 4.7 mEq/L 3.6 - 5.0 [facility] Chloride [Moles/volume] in Serum or Plasma 97 mEq/L 98 - 107 L [facility] Carbon dioxide, total [Moles/volume] in Serum or Plasma 24 MEQ/L 22 - 30 [facility] Glucose [Mass/volume] in Serum or Plasma 297 MG/DL 70 - 99 H [facility] BUN 19 MG/DL 7 - 21 [facility] Creatinine [Mass/volume] in Serum or Plasma 0.8 MG/DL 0.7 - 1.5 [facility] BUN/CREAT 24 8 - 27 [facility] Protein [Mass/volume] in Serum or Plasma 6.5 G/DL 6.3 - 8.2 [facility] Albumin [Mass/volume] in Serum or Plasma 3.1 G/DL 3.9 - 5.0 L [facility] Globulin [Mass/volume] in Serum by calculation 3.4 GM/DL 2.4 - 3.2 H [facility] A/G RATIO 0.9 0.8 - 2.0 [facility] Calcium [Mass/volume] in Serum or Plasma 8.3 MG/DL 8.4 - 10.2 L [facility] Bilirubin.total [Mass/volume] in Serum or Plasma <0.7 MG/DL 0.2 - 1.3 [facility] Alkaline phosphatase [Enzymatic activity/volume] in Serum or Plasma 100 U/L 38 - 126 [facility] Aspartate aminotransferase [Enzymatic activity/volume] in Serum or Plasma 21 U/L 5 - 40 [facility] Alanine aminotransferase [Enzymatic activity/volume] in Seru m or Plasma 11 U/L 7 - 56 [facility] Anion gap 3 in Serum or Plasma 11.0 mmol/L 8.0 - 16.0 [facility] AGE 70 yrs [facility] NON-AA GFR >60 mL/min [facility] ital AFR AMER GFR >60 mL/min [facility] sp[facility] Male GFR In terprentation 20-49 [...] >32 mL/min Normal ID Date Data Source [id number] 12/08/2020 05:10:00 PM EST [facility] Name Value Range Interpretation Code Description Data Aydee rce(s) Supporting Document(s) CBC W/AUTOMATED DIFF [facility] COMPLETE BLOOD COUNT Leukocytes [#/volume] in Blood by Automated count 3.9 10^3/uL 4.2 - 1 1.0 L [facility] Erythrocytes [#/volume] in Blood by Automated count 3.87 10^6/uL 4. 50 - 6.30 L [facility] Hemoglobin [Mass/volume] in Blood 9.5 g/dL 14.0 - 16.0 L [facility] Hematocrit [Volume Fraction] of Blood by Automated count 29.4 % 4 1.0 - 51.0 L [facility] Erythrocyte mean corpuscular volume [Entitic volume] by Auto mated count 76.0 fL 80.0 - 94.0 L [facility] Erythrocyte mean corpuscular hemoglobin [Entitic mass] by Automated count 24.5 pg 27.0 - 34.0 L [facility] Erythrocyte mean corpuscular hemoglobin concentration [Mass/volume] by Automated count 32.3 g/dL 31.0 - 36.0 [facility] Erythrocyte distribution width [Ratio] by Automated count 15.8 % 11.5 - 14.8 H [facility] Platelets [#/volume] in Blood by Automated count 221 10^3/uL 150 - 45 0 [facility] Platelet mean volume [Entitic volume] in Blood by Automated count 9.8 fL 7.4 - 10.4 [facility] Neutrophils/100 leukocytes in Blood by Automated count 66.0 % 37. 0 - 80.0 [facility] Lymphocytes/100 leukocytes in Blood by Manual count 24.6 % 25.0 - 40.0 L [facility] Monocytes/100 leukocytes in Blood by Automated count 8.1 % 3.0 - 8.0 H [facility] Eosinophils/100 leukocytes in Blood by Automated count 0.5 % 0.0 - 7.0 [facility] Basophils/100 leukocytes in Blood by Automated count 0.3 % 0.0 - 2.0 [facility] %IG 0.5 % 0.0 - 0.0 H [facility] %NRBC 0.0 % 0.0 - 0.0 [facility] Neutrophils [#/volume] in Blood by Automated count 2.60 10^3/uL 2.00 - 6.90 [facility] Lymphocytes [#/volume] in Blood by Automated count 0.97 10^3/uL 0.60 - 3.40 [facility] Monocytes [#/volume] in Blood by Automated count 0.32 10^3/uL 0.00 - 0.90 [facility] Eosinophils [#/volume] in Blood by Automated count 0.02 10^3/uL 0.00 - 0.70 [facility] Basophils [#/volume] in Blood by Automated count 0.01 10^3/uL 0.00 - 0.20 [facility] #IG 0.02 10^3/uL 0.00 - 0.10 [facility] #NRBC 0.00 10^3/uL 0.00 - 0.00 [facility] MANUAL DIFF NOT INDICATED [facility] RBC MORPH NOT INDICATED [facility] ID Date Data Source [id number] 12/08/2020 10:59:[address] [address]RNMAFQM NAME: CHACHO RING#: [id number] PHYSICIAN: NOLAN TRIANA DOACCOUNT #: [id number] ADM. DATE: 12/05/20PATIENT : 50 DISCH. DATE: [50}DISCHARGE SUMMARYMedical Discharge PlanPersonal Care InstructionsDischarge Activity: As toleratedDischarge diet: Consistent CarbohydrateProblem ListMedical ProblemsA- fibCHF (congestive heart failure)Chronic CHFCOVID- 19DiabetesHypoglycemiaUnresponsiveFollow Up CareFollow Up:Follow up with your Primary care physicianEND ENDDICT: 12/08/20 1059 Electronically SignedTRANS:12/08/20 1059 MICHAEL VARGAS BY:DATE SIGNED:12/11/20TIME SIGNED: 1925REPORT COPY TO: Name Value Range Interpretation Code Description Data Aydee rce(s) Supporting Document(s) ID Date Data Source [id number] 12/08/2020 07:06:00 AM [facility] Name Value Range Interpretation Code Description Data Aydee rce(s) Supporting Document(s) GLU 109 mg/dL 70-110 [facility] Patients taking Sulfasalazine may have f alsely depressedGlucose levels. Patients taking Sulfapyridine may havefalsely elevated Glucose levels. Patients should be drawnfor Glucose before the initial administration of eitherdrug. BUN 16 mg/dL 7-23 [facility] CRE 0.681 mg/dL 0.500-1.300 [facility] GFR > 60 mL/min [facility] CHLORIDE 104 mmol/L 99-110 [facility] NA 137 mmol/L 136-147 [facility] POTASSIUM 4.5 mmol/L 3.5-5.1 [facility] TCO2 22 mmol/L 20-33 [facility] ANION GAP 15.5 10.0-20.0 [facility] CA 8.0 mg/dL 8.3-10.7 [facility] ID Date Data Source [id number] 12/08/2020 06:46:00 AM EST [facility] Name Value Range Interpretation Code Description Data Aydee rce(s) Supporting Document(s) WBC 5.22 x10E3/uL 4.0-10.5 [facility] RBC 3.82 x10E6/uL 4.70-6.00 [facility] Hemoglobin 9.2 g/dL 14.0-18.0 [facility] Hematocrit 28.9 % 42.0-52.0 [facility] MCV 75.7 fL 81.0-99.0 [facility] MCH 24.1 pg 27.0-31.0 [facility] MCHC 31.8 g/dL 32.7-35.6 [facility] RDW 15.7 % 11.5-14.0 [facility] Platelet count 251 x10E3/uL 150-450 [facility] MPV 10.4 fl 6.9-9.5 [facility] Neutrophils 56.2 % 34-64 [facility] Lymphocytes 34.1 % 25-45 [facility] Monocytes 8.0 % 1.7-10.6 [facility] Eosinophils 1.3 % 0.4-7.0 [facility] Basophils 0.2 % 0.1-2.0 [facility] Imm. Gran. 0.2 % 0.1-2.0 [facility] Abs. Neutro. 2.93 x10E3/uL 1.2-7.6 [facility] Abs. Lymph. 1.78 x10E3/uL 1.0-3.5 [facility] Abs. [place]. 0.42 x10E3/uL 0.1-1.0 N [facility] l Abs. Eosin. 0.07 x10E3/uL 0.1-0.7 [facility] Abs. Baso. 0.01 x10E3/uL 0.0-0.1 [facility] Abs. Imm. Gran. 0.01 x10E3/uL 0.0-0.1 N [facility] spital ANRBC% 0 % 0 [facility] ID Date Data Source [id number] 12/07/2020 10:39:00 PM EST [facility] COMMENTS TO LAB: STAT Name Value Range Interpretation Code Description Data Aydee rce(s) Supporting Document(s) GLU 378 mg/dL 70-110 [facility] Patients taking Sulfasalazine may have f alsely depressedGlucose levels. Patients taking Sulfapyridine may havefalsely elevated Glucose levels. Patients should be drawnfor Glucose before the initial administration of eitherdrug. ID Date Data Source [id number] 12/07/2020 11:02:00 AM EST [facility] COMMENTS TO LAB: add on Name Value Range Interpretation Code Description Data Aydee rce(s) Supporting Document(s) MAGNESIUM 1.6 mg/dL 1.6-2.6 [facility] ID Date Data Source [id number] 12/07/2020 08:37:00 AM [facility] [place], [place] [address]NGVCPGIQ NOTEPATIENT NAME: CHACHO RING PHYSICIAN: NOLAN TRIANA DOAUTHOR: Serafin Triana DO. DATE: 12/05/20 MR#: [id number] NOTE DATE: 12/07/20 RM#: [id number] TIME: 0844 : 50SubjectiveEvents Since Last EntryPatient seen and examined the room today. Patient is alert and awake andoriented this morning. No respiratory symptoms noted. Patient had a episodeof hypoglycemia with glucose level of 28 in the evening. No recurrence ofhypothermia.ObjectiveVital SignsVital Signs-24 HRS12/06499817 3939 1200 1400 1600Temp 98.6 98.2Pulse 84 91 95 98 94Resp 13 20 22 15B/P 122/73 121/89 124/76 130/75 142/88B/P MeanPulse Ox 92 94 96 96O2 DeliveryO2 Flow UqmiIjP464/12/[id number] 9443 2148 2200 0000Temp 100.0 95.0 98.7Pulse 94 88 72 77 81Resp 15 23 14 11B/P 135/81 138/75 139/80 139/80 126/72B/P MeanPulse Ox 97 96 95 98O2 DeliveryO2 Flow UmpyPkX263/16 12/07587092 7564 0201 0400 0400Temp 98.5 98.0Pulse 81 81 80 92Resp 12 12 25B/P 126/72 112/63 112/63 130/73B/P MeanPulse Ox 98O2 DeliveryO2 Flow RvfyHhZ848/16 02049521 0600Temp 98.6Pulse 92Resp 24B/P 137/83B/P MeanPulse Ox 96O2 DeliveryO2 Flow ZixtXzB4Cswmvf/OutputIntake/Output Summary 24 hours12/06 1900 12/07 0700Intake Total 1830 360Output Total 400Balance 1430 360Intake, IV 450Intake, Oral 1380 360Number 2BowelMovementsNumber 3 3IncontinentVoidsOutput, Urine 400Current MedicationsInsulin Aspart (Humalog Insulin) QHS Low dose sliding scaleQHS SUBCUTInsulin Aspart (Humalog Insulin) Low dose sliding scaleAC MEAL SUBCUTGlucose (Insta-Glucose) 15 GM DAILY NEEDED PRN POEnoxaparin Sodium (Lovenox) 70 MG BID SUBCUTMetoprolol Tartrate (Lopressor) 50 MG BID POSodium Chloride (Saline Flush Syr(5ML)) 5 ML Q12H IVGlucose (Insta-Glucose) 15 GM DAILY NEEDED PRN POSodium Chloride (Saline Flush Syr(5ML)) 5 ML QIDPRN PRN IVExamGeneral Appearance no acute distress, afebrile, alert, awake, conversantHead atraumatic, normocephalicNeck no swelling, suppleCardiovascular regular rate, Positive S1-S2.Respiratory clear to auscultation, no distress, aerating wellAbdomen soft, non-tender, no distention, no guarding, no r eboundUrinary no flank painExtremities no cyanosis, no edemaMuscoskeletal normal inspection, no brittney arthritisNeurological alert, oriented x 3, normal speech, no motor deficits, no sensorydeficits, Decreased sensation of bilateral lower extremities.Psych/Mental Status mood neutralResultsLaboratory DataRecent Labs-24 hours/887034PfjxbpadfCmouyv (136 - 147 mmol/L) 135 LPotassium (3.5 - 5.1 mmol/L) 4.8Chloride (99 - 110 mmol/L) 101Serum Bicarbonate (20 - 33 mmol/L) 25Anion Gap (10.0 - 20.0) 13.8BUN (7 - 23 mg/dL) 13Creatinine (0.500 - 1.300 mg/dL) 0.794Estimated GFR/1.73 m2 (mL/min) > 60Glucose (70 - 110 mg/dL) 233 HCalcium (8.3 - 10.7 mg/dL) 8.2 LHematologyWBC (4.0 - 10.5 x10E3/uL) 5.32RBC (4.70 - 6.00 x10E6/uL) 3.82 LHgb (14.0 - 18.0 g/dL) 9.3 LHct (42.0 - 52.0 %) 29.4 LMCV (81.0 - 99.0 fL) 77.0 LMCH (27.0 - 31.0 pg) 24.3 LMCHC (32.7 - 35.6 g/dL) 31.6 LRDW (11.5 - 14.0 %) 15.9 HPlt Count (150 - 450 x10E3/uL) 242MPV (6.9 - 9.5 fl) 9.9 HImmature Gran % (Auto) (0.1 - 2.0 %) 0.4Neut % (Auto) (34 - 64 %) 61.8Lymph % (Auto) (25 - 45 %) 27.6Mono % (Auto) (1.7 - 10.6 %) 9.8Eos % (Auto) (0.4 - 7.0 %) 0.4Baso % (Auto) (0.1 - 2.0 %) 0 LAbs Immat Gran (auto) (0.0 - 0.1 x10E3/uL) 0.02Absolute Neuts (auto) (1.2 - 7.6 x10E3/uL) 3.29Absolute Lymphs (auto) (1.0 - 3.5 x10E3/uL) 1.47Absolute Monos (auto) (0.1 - 1.0 x10E3/uL) 0.52Absolute Eos (auto) (0.1 - 0.7 x10E3/uL) 0.02 LAbsolute Basos (auto) (0.0 - 0.1 x10E3/uL) 0.00Nucleated RBC % (auto) (0 %) 9GrgdyegrztwmZfqaudzfabir18/14 1927 BLOOD: Blood Culture - RECD12/05 1909 BLOOD: Blood Culture - RECDAssessment/PlanProblem List1. HypoglycemiaA&P- Patient has been off long-acting insulin.- Patient had episode of hypoglycemia with glucose level of 28. S/P D50 and S9E-Eqssnro was recently diagnosed with COVID.- Advance the diet to consistent carbohydrate diet. Continue adjusting patientinsulin regimen.2. UnresponsiveA&P-Currently patient is alert awake and oriented x3.-Suspect unresponsiveness secondary to severe hypoglycemia.3. COVID-19A&P-Patient was recently diagnosed with COVID-19 approximately 2 to 3 days ago innursing home.-Patient was able to maintain oxygenation on room air. Patient demonstrated norespiratory distress.4. A-fibA&P- Chronic A fib.-Continue metoprolol.-Pradaxa is not on formulary. Continue Lovenox.5. DiabetesA&P-Hypoglycemia is improving. Dextrose IV infusion discontinued-Continue with sliding scale.6. Chronic CHFA&P- No exacerbation at this moment. No prior echocardiogram available.Suspected diastolic dysfunction.-Continue metoprolol.-Pradaxa is not on formulary. Switch to Lovenox.VTE ProphylaxisVTE Prophylaxis: Continue Lovenox.DATE SIGNED: 12/11/20 Electronically SignedTIME SIGNED: 1925 NOLAN TRIANA DO Name Value Range Interpretation Code Description Data Aydee rce(s) Supporting Document(s) ID Date Data Source [id number] 12/07/2020 06:22:00 AM EST [facility] Name Value Range Interpretation Code Description Data Aydee rce(s) Supporting Document(s) GLU 233 mg/dL 70-110 [facility] Patients taking Sulfasalazine may have f alsely depressedGlucose levels. Patients taking Sulfapyridine may havefalsely elevated Glucose levels. Patients should be drawnfor Glucose before the initial administration of eitherdrug. BUN 13 mg/dL 7-23 [facility] CRE 0.794 mg/dL 0.500-1.300 [facility] GFR > 60 mL/min [facility] CHLORIDE 101 mmol/L 99-110 [facility] NA 135 mmol/L 136-147 [facility] POTASSIUM 4.8 mmol/L 3.5-5.1 [facility] TCO2 25 mmol/L 20-33 [facility] ANION GAP 13.8 10.0-20.0 [facility] CA 8.2 mg/dL 8.3-10.7 [facility] ID Date Data Source [id number] 12/07/2020 06:08:00 AM EST [facility] Name Value Range Interpretation Code Description Data Aydee rce(s) Supporting Document(s) WBC 5.32 x10E3/uL 4.0-10.5 [facility] RBC 3.82 x10E6/uL 4.70-6.00 [facility] Hemoglobin 9.3 g/dL 14.0-18.0 [facility] Hematocrit 29.4 % 42.0-52.0 [facility] MCV 77.0 fL 81.0-99.0 [facility] MCH 24.3 pg 27.0-31.0 [facility] MCHC 31.6 g/dL 32.7-35.6 [facility] RDW 15.9 % 11.5-14.0 [facility] Platelet count 242 x10E3/uL 150-450 [facility] MPV 9.9 fl 6.9-9.5 [facility] Neutrophils 61.8 % 34-64 [facility] Lymphocytes 27.6 % 25-45 [facility] Monocytes 9.8 % 1.7-10.6 [facility] Eosinophils 0.4 % 0.4-7.0 [facility] Basophils 0 % 0.1-2.0 [facility] Imm. Gran. 0.4 % 0.1-2.0 [facility] Abs. Neutro. 3.29 x10E3/uL 1.2-7.6 [facility] Abs. Lymph. 1.47 x10E3/uL 1.0-3.5 [facility] Abs. [place]. 0.52 x10E3/uL 0.1-1.0 [facility] Abs. Eosin. 0.02 x10E3/uL 0.1-0.7 [facility] Abs. Baso. 0.00 x10E3/uL 0.0-0.1 [facility] Abs. Imm. Gran. 0.02 x10E3/uL 0.0-0.1 [facility] ANRBC% 0 % 0 [facility] ID Date Data Source [id number] 12/06/2020 10:42:00 PM [facility] [address] [place] [address] RESPIRATORY CARE REPORT ==== ---------NAME------- NUMBER SEX AGE ADMIT DISC. XRAY# F/C ERIC FLOR [id number] M 70 12/05/20 12/05/20 [id number] MB4 E/R DATE OF : 1950 M/R# [id number] #: [id number] TR-1B LOCATION: EMERGENCY DEPT EKG 15044 COMP LETE:12/05/20 15:18 [facility] [address] PHYSICIAN: MOE Grover Name Value Range Interpretation Code Description Data Aydee rce(s) Supporting Document(s) ID Date Data Source [id number] 12/06/2020 10:24:00 [place] [address] PHONE: [phone] FAX: [phone] Name .................. : LUCITA FLOR Acct Number.................. : [id number] ROOM. ................. : TR-1B Number ................... : [id number] Stay type ............. : E/R Discharge Date......... ... : Admit Date ......... : 12/05/20 Admit Phys .................... : MOE Grover Date of ....... : 1950 Family Phys ................... : FERENCHAK Phone .................. : [phone] Age ................................ : 70 Film# .................. .:[id number] Sex ................................. : M Unsigned transcriptions are preliminary reports and do not represent a medical or legal document CT HEAD W/O CONTRAST [id number] COMPLETE:12/05/20 11:04 4305 Reason(s): Altered Mental Status CT OF THE HEAD WITHOUT CONTRAST: CLINICAL HISTORY: Altered mental status. COMPARISON: None. FINDINGS: No intra-axial or extra- axial collection of fluid. Periventricular deep white matter changes. Moderate atrophy. No midline shift or mass effect. No skull fracture. Mucosal thickening left maxillary sinus. Evidence of prior repair of the left inferior orbital wall. IMPRESSION: No acute intracranial process. Atrophy with deep white matter small vessel ischemic changes. While performing the above CT examination, radiation dose reduction was accomplished utilizing automated exposure control, adjusting of the mA and kV based on the patient's body size and/or the use of imperative reconstructive techniques. CT dose: 464.3 mGycm Electronically Reviewed and Signed By Jaspreet Milton MD , 12/06/20 10:24, BEE Transcribe Initials: BALDO , Transcribe Date: 12/05/20 14:50, Dictation Date: Copy for: EMERGENCY DEPT via modem Copy for: 710 MED REC DISCHARGED Page 1 of 1 Name Value Range Interpretation Code Description Data Aydee rce(s) Supporting Document(s) ID Date Data Source [id number] 12/06/2020 10:24:00 AM [facility] [address] [place] [address] PHONE: [phone] FAX: [phone] Name .................. : LUCITA FLOR Acct Number.................. : [id number] ROOM. ................. : -1B MR Number ................... : [id number] Stay type ............. : E/R Discharge Date......... ... : Admit Date ......... : 12/05/20 Admit Phys .................... : MOE Grover Date of ....... : 1950 Family Phys ................... : [employer] Phone .................. : [phone] Age ................................ : 70 Film# .................. .:[id number] Sex ................................. : M Unsigned transcriptions are preliminary reports and do not represent a medical or legal document CHEST PORTABLE [id number] COMPLETE:12/05/20 09:49 4302 Reason( s): Shortness of Breath PORTABLE CHEST X-RAY: INDICATION: Shortness of breath. COMPARISON: 06/09/20 FINDINGS: Portable upright chest submitted. Pulmonary vascular congestion. No infiltrate or effusion. The patient's chin obscures the medial aspect of the lung apices. Cardiac silhouette within normal limits. The osseous structure are unremarkable. IMPRESSION: Mild pulmonary vascular congestion. No infiltrate. Electronically Reviewed and Signed By Jaspreet Milton MD , 12/06/20 10:24, BEE Transcribe Initials: BALDO , Transcribe Date: 12/05/20 11:57, Dictation Date: Copy for: EMERGENCY DEPT via modem Copy for: 710 MED REC DISCHARGED Page 1 of 1 Name Value Range Interpretation Code Description Data Aydee rce(s) Supporting Document(s) ID Date Data Source [id number] 12/06/2020 09:54:[address] [id number] NOTEPATIENT NAME: CHACHO RING PHYSICIAN: NOLAN TRIANA DOAUTHOR: Serafin Triana DO. DATE: 12/05/20 MR#: [id number] NOTE DATE: 12/06/20 RM#: [id number] TIME: 1005 : 50SubjectiveEvents Since Last EntryPatient seen and examined the room today. Patient is alert and awake andoriented. Patient tolerated liquid diet. Glucose level is improving. Norecurrence of hypothermia.ObjectiveVital SignsVital Signs-24 HRS12/05327649 5539 2141 2200 0000Temp 96.1 98.7 98.4 97.7Pulse 86 88 85 86 86Resp 12 12 20 22B/P 109/74 94/60 108/71 110/70 109/57B/P MeanPulse Ox 98 97 98 96O2 DeliveryO2 Flow UiiyCeZ696/15 12/06 12/06 [id number] 8110 0600 0917Temp 98.1 98.0 98.1Pulse 87 89 95 84Resp 21 12 21B/P 111/66 105/68 122/74 122/73B/P MeanPulse Ox 96 100 99O2 DeliveryO2 Flow NeclLbA8Pmzlex/OutputIntake/Output Summary 24 hours12/05 1900 12/06 0700Intake Total 960Output Total 650Balance 310Intake, IV 600Intake, Oral 360Output, Urine 650Patient 71.3 kgWeightCurrent MedicationsDextrose/Sodium Chloride (D5% NSS 0.9% 1000ML) 1,000 ML .Q10H IVEnoxaparin Sodium (Lovenox) 70 MG BID SUBCUTMetoprolol Tartrate (Lopressor) 50 MG BID POSodium Chloride (Saline Flush Syr(5ML)) 5 ML Q12H IVGlucose (Insta-Glucose) 15 GM DAILY NEEDED PRN POSodium Chloride (Saline Flush Syr(5ML)) 5 ML QIDPRN PRN IVExamGeneral Appearance no acute distress, afebrile, alert, awake, conversantHead atraumatic, normocephalicNeck no swelling, suppleCardiovascular regular rate, Positive S1-S2.Respiratory clear to auscultation, no distress, aerating wellAbdomen soft, non-tender, no distention, no guarding, no reboundUrinary no flank painExtremities no cyanosis, no edemaMuscoskeletal normal inspection, no brittney arthritisNeurological alert, oriented x 3, normal speech, no motor deficits, no sensorydeficits, Decreased sensation of bilateral lower extremities.Psych/Mental Status mood neutralResultsLaboratory DataRecent Labs-24 hours12/05775267 6945 191 0515ChemistrySodium (136 - 147 mmol/L) 139 140Potassium (3.5 - 5.1 mmol/L) 4.1 3.9Chloride (99 - 110 mmol/L) 105 108Serum Bicarbonate (20 - 33 mmol/L) 27 25Anion Gap (10.0 - 20.0) 11.1 10.9 BUN (7 - 23 mg/dL) 17 13Creatinine (0.500 - 1.300 mg/dL) 0.701 0.653Estimated GFR/1.73 m2 (mL/min) > 60 > 60Glucose (70 - 110 mg/dL) 52 L 107Plasma Lactic Acid Kurtis (0.4 - 2.0 mmol/L) 1.5Calcium (8.3 - 10.7 mg/dL) 8.8 8.1 LMagnesium (1.6 - 2.6 mg/dL) 1.5 LTroponin I (0.000 - 0.079 ng/mL) < 0.015Troponin I High Sens (3.0 - 82.3 ng/L) 9.7CoagulationD-Dimer (mg/L) 1.09 HHematologyWBC (4.0 - 10.5 x10E3/uL) 4.36 4.95RBC (4.70 - 6.00 x10E6/uL) 3.86 L 3.57 LHgb (14.0 - 18.0 g/dL) 9.5 L 8.7 LHct (42.0 - 52.0 %) 29.5 L 27.2 LMCV (81.0 - 99.0 fL) 76.4 L 76.2 LMCH (27.0 - 31.0 pg) 24.6 L 24.4 LMCHC (32.7 - 35.6 g/dL) 32.2 L 32.0 LRDW (11.5 - 14.0 %) 15.9 H 15.8 HPlt Count (150 - 450 x10E3/uL) 265 247MPV (6.9 - 9.5 fl) 9.6 H 9.7 HImmature Gran % (Auto) (0.1 - 2.0 %) 0.2 0.4Neut % (Auto) (34 - 64 %) 65.6 H 53.9Lymph % (Auto) (25 - 45 %) 27.8 37.0Mono % (Auto) (1.7 - 10.6 %) 6.2 7.7Eos % (Auto) (0.4 - 7.0 %) 0.2 L 1.0Baso % (Auto) (0.1 - 2.0 %) 0 L 0 LAbs Immat Gran (auto) (0.0 - 0.1 x10E3/uL) 0.01 0.02Absolute Neuts (auto) (1.2 - 7.6 x10E3/uL) 2.86 2.67Absolute Lymphs (auto) (1.0 - 3.5 x10E3/uL) 1.21 1.83Absolute Monos (auto) (0.1 - 1.0 x10E3/uL) 0.27 0. 38Absolute Eos (auto) (0.1 - 0.7 x10E3/uL) 0.01 L 0.05 LAbsolute Basos (auto) (0.0 - 0.1 x10E3/uL) 0.00 0.00Nucleated RBC % (auto) (0 %) 0 002/677558FjgdgwTdjpx Color YellowUrine Appearance CloudyUrine pH (5.0 - 8.0) 5.5Ur Specific [place] (1.010 - 1.025) 1.017Urine Protein (Negative) 1+Urine Ketones (NEGATIVE) NegativeUrine Blood (NEGATIVE) 3+Urine Nitrite (Negative) NegativeUr Bilirubin Confirm (NEGATIVE) NegativeUrine Urobilinogen (0.2 - 1.0 mg/dL) 1.0Urine Leukocytes (Negative) 1+Urine RBC (NONE SEEN) >200 RBCs/HPFUrine WBC (NONE SEEN) 0-2 WBCs/HPFUrine Bacteria (NONE SEEN) RareUrine Glucose (NEGATIVE) NegativeMicrobiologyMicrobiology Last 24 hours12/05 1926 BLOOD: Blood Culture - RECD12/05 1909 BLOOD: Blood Culture - OKNUZfyctcyqxNqywkqvrcdyc47/14 1927 BLOOD: Blood Culture - RECD12/05 1909 BLOOD: Blood Culture - RECDAssessment/PlanProblem List1. UnresponsiveA&P- Currently patient is alert awake and oriented x3.-Suspect unresponsiveness secondary to severe hypoglycemia.-Upon arrival, patient glucose was still low while patient was on dextrosefluid; glucose of 52.-Patient's glucose level has been improving. Mentation continued improvement.2. HypoglycemiaA&P- -Patient [facility] to [facility] emergency room with unresponsiveness,hypothermia and hypoglycemia.-Glucose was as low as 14. Patient was on long-acting insulin coverage withTresiba and short acting insulin coverage with lispro.-Patient was recently diagnosed with COVID.-Patient's mentation is improving. Glucose level has been improving. Advancethe diet as tolerated. Discontinue dextrose fluid support. Continue adjustingpatient insulin regimen.3. COVID-19A&P-Patient was recently diagnosed with COVID-19 approximately 2 to 3 days ago innursing home.- Patient was able to maintain oxygenation on room air. Patient demonstrated norespiratory distress.4. CHF (congestive heart failure)A&P-IV dextrose will be discontinued. Patient resumed on his consistentcarbohydrate diet. We will continue monitor patient fluid status closely.5. A-fibA&P-Continue metoprolol.-Pradaxa is not on formulary. Switch to Lovenox.6. DiabetesA&P- Hypoglycemia is improving. Dextrose IV infusion discontinued-Continue with sliding scale.Additional NotesBarrier for discharge: Patient's mentation is improving. Continue to assesspatient's insulin requirements. Anticipate discharge in the next 24 hours.Patient was diagnosed with Covid in the senior living 2 to 3 days ago. Howeverpatient is still Covid positive. This may create barrier for dischargingpatient back to senior living per current guidelines.VTE ProphylaxisVTE Prophylaxis: Continue Lovenox.DATE SIGNED: 12/11/20 Electronically SignedTIME SIGNED: 1925 NOLAN TRIANA DO Name Value Range Interpretation Code Description Data Aydee rce(s) Supporting Document(s) ID Date Data Source [id number] 12/06/2020 07:24:00 AM EST [facility] Name Value Range Interpretation Code Description Data Aydee rce(s) Supporting Document(s) URINE COLOR Yellow [facility] UAPR Cloudy [facility] UGLU Negative NEGATIVE [facility] URINE BILIRUBIN [facility] NEGATIVE [facility] USG 1.017 1.010-1.025 [facility] UBLO 3+ NEGATIVE [facility] UpH 5.5 5.0-8.0 [facility] UPRO 1+ Negative [facility] UUB 1.0 mg/dL 0.2-1.0 [facility] UNIT Negative Negative [facility] ULEU 1+ Negative [facility] ID Date Data Source [id number] 12/06/2020 07:24:00 AM EST [facility] Name Value Range Interpretation Code Description Data Aydee rce(s) Supporting Document(s) URINE RBC >200 RBCs/HPF NONE SEEN [facility] URINE WBC 0-2 WBCs/HPF NONE SEEN [facility] URINE BACTERIA Rare NONE SEEN [facility] l ID Date Data Source [id number] 12/06/2020 06:03:00 AM EST [facility] Name Value Range Interpretation Code Description Data Aydee rce(s) Supporting Document(s) GLU 107 mg/dL 70-110 [facility] Patients taking Sulfasalazine may have f alsely depressedGlucose levels. Patients taking Sulfapyridine may havefalsely elevated Glucose levels. Patients should be drawnfor Glucose before the initial administration of eitherdrug. BUN 13 mg/dL 7-23 [facility] CRE 0.653 mg/dL 0.500-1.300 [facility] GFR > 60 mL/min [facility] CHLORIDE 108 mmol/L 99-110 [facility] NA 140 mmol/L 136-147 [facility] POTASSIUM 3.9 mmol/L 3.5-5.1 [facility] TCO2 25 mmol/L 20-33 [facility] ANION GAP 10.9 10.0-20.0 [facility] CA 8.1 mg/dL 8.3-10.7 [facility] ID Date Data Source [id number] 12/06/2020 05:57:00 AM [facility] Name Value Range Interpretation Code Description Data Aydee rce(s) Supporting Document(s) WBC 4.95 x10E3/uL 4.0-10.5 [facility] RBC 3.57 x10E6/uL 4.70-6.00 [facility] Hemoglobin 8.7 g/dL 14.0-18.0 [facility] Hematocrit 27.2 % 42.0-52.0 [facility] MCV 76.2 fL 81.0-99.0 [facility] MCH 24.4 pg 27.0-31.0 [facility] MCHC 32.0 g/dL 32.7-35.6 [facility] RDW 15.8 % 11.5-14.0 [facility] Platelet count 247 x10E3/uL 150-450 [facility] MPV 9.7 fl 6.9-9.5 [facility] Neutrophils 53.9 % 34-64 [facility] Lymphocytes 37.0 % 25-45 [facility] Monocytes 7.7 % 1.7-10.6 [facility] Eosinophils 1.0 % 0.4-7.0 [facility] Basophils 0 % 0.1-2.0 [facility] Imm. Gran. 0.4 % 0.1-2.0 [facility] Abs. Neutro. 2.67 x10E3/uL 1.2-7.6 [facility] Abs. Lymph. 1.83 x10E3/uL 1.0-3.5 [facility] Abs. [place]. 0.38 x10E3/uL 0.1-1.0 [facility] Abs. Eosin. 0.05 x10E3/uL 0.1-0.7 [facility] Abs. Baso. 0.00 x10E3/uL 0.0-0.1 [facility] Abs. Imm. Gran. 0.02 x10E3/uL 0.0-0.1 N [facility] spital ANRBC% 0 % 0 [facility] ID Date Data Source [id number] 12/11/2020 10:17:00 AM EST [facility] AC Name Value Range Interpretation Code Description Data Aydee rce(s) Supporting Document(s) BLDC [facility] ID Date Data Source [id number] 12/05/2020 08:08:00 PM EST [facility] Name Value Range Interpretation Code Description Data Aydee rce(s) Supporting Document(s) MAGNESIUM 1.5 mg/dL 1.6-2.6 [facility] ID Date Data Source [id number] 12/05/2020 08:08:00 PM EST [facility] Name Value Range Interpretation Code Description Data Aydee rce(s) Supporting Document(s) GLU 52 mg/dL 70-110 [facility] Patients taking Sulfasalazine may have f alsely depressedGlucose levels. Patients taking Sulfapyridine may havefalsely elevated Glucose levels. Patients should be drawnfor Glucose before the initial administration of eitherdrug. BUN 17 mg/dL 7-23 [facility] CRE 0.701 mg/dL 0.500-1.300 [facility] GFR > 60 mL/min [facility] CHLORIDE 105 mmol/L 99-110 [facility] NA 139 mmol/L 136-147 [facility] POTASSIUM 4.1 mmol/L 3.5-5.1 [facility] TCO2 27 mmol/L 20-33 [facility] ANION GAP 11.1 10.0-20.0 [facility] CA 8.8 mg/dL 8.3-10.7 [facility] ID Date Data Source [id number] 12/05/2020 08:04:00 PM EST [facility] Name Value Range Interpretation Code Description Data Aydee rce(s) Supporting Document(s) TROPI < 0.015 ng/mL 0.000-0.079 N [facility] al TROPONIN HS 9.7 ng/L 3.0-82.3 [facility] ID Date Data Source [id number] 12/05/2020 07:59:00 PM EST [facility] Name Value Range Interpretation Code Description Data Aydee rce(s) Supporting Document(s) LACTIC ACID EMPERATRIZ 1.5 mmol/L 0.4-2.0 [facility] ID Date Data Source [id number] 12/05/2020 07:51:00 PM [facility] Name Value Range Interpretation Code Description Data Aydee rce(s) Supporting Document(s) D-DIMER 1.09 mg/L H [facility] CUT OFF VALUE = 0.5 mg/L The negative pr edictive value for DVT or PE is at 98% whenthe result is below the cut off. ID Date Data Source [id number] 12/05/2020 07:37:00 PM [facility] Name Value Range Interpretation Code Description Data Aydee rce(s) Supporting Document(s) WBC 4.36 x10E3/uL 4.0-10.5 [facility] RBC 3.86 x10E6/uL 4.70-6.00 L [facility] Hemoglobin 9.5 g/dL 14.0-18.0 [facility] Hematocrit 29.5 % 42.0-52.0 [facility] MCV 76.4 fL 81.0-99.0 L [facility] MCH 24.6 pg 27.0-31.0 [facility] MCHC 32.2 g/dL 32.7-35.6 [facility] RDW 15.9 % 11.5-14.0 H [facility] Platelet count 265 x10E3/uL 150-450 [facility] MPV 9.6 fl 6.9-9.5 [facility] Neutrophils 65.6 % 34-64 [facility] Lymphocytes 27.8 % 25-45 [facility] Monocytes 6.2 % 1.7-10.6 [facility] Eosinophils 0.2 % 0.4-7.0 [facility] Basophils 0 % 0.1-2.0 L [facility] Imm. Gran. 0.2 % 0.1-2.0 [facility] Abs. Neutro. 2.86 x10E3/uL 1.2-7.6 [facility] Abs. Lymph. 1.21 x10E3/uL 1.0-3.5 [facility] Abs. [place]. 0.27 x10E3/uL 0.1-1.0 [facility] Abs. Eosin. 0.01 x10E3/uL 0.1-0.7 [facility] Abs. Baso. 0.00 x10E3/uL 0.0-0.1 [facility] Abs. Imm. Gran. 0.01 x10E3/uL 0.0-0.1 N [facility] spital ANRBC% 0 % 0 [facility] ID Date Data Source [id number] 12/05/2020 07:10:00 PM EST [facility] [address] [id number] AND PHYSICALPATIENT NAME: CHACHO RING MR#: [id number] PHYSICIAN: NOLAN TRIANA DOAUTHOR: Nolan Triana DO DATE: 12/05/20 RM#: ICUHISTORY & PHYSICAL DATE: 12/05/20 : 50EVALUATION TIME: 1934HisChief Complaint/Admit ReasonUnresponsiveness, persistent hypoglycemia, hypothermiaHistory of Presenting IllnessPatient is a 70 years old male resident from senior living with a past medicalhistory significant for diabetes, atrial fibrillation, CHF, gout, hypertensionand recently diagnosed COVID [facility] afterpatient was found unresponsive in the senior living. Patient was found to havepersistent hypoglycemia. Patient received a dose of D50 however patientglucose remain low. Patient started on D5W infusion. Patient was found tohave hypothermia, and patient started on the bear hugger. Due to lack of ICU,patient transferred to [facility] for further evaluation and management. Patient wasseen shortly after patient arrived to ICU. Patient was oriented to the placeyear and the name of president. Patient could not recall how long he has losthis consciousness. Patient was present diagnosed with COVID 2 days ago.Patient experienced some mild cough with generalized symptoms.Past Medical/Surgical HistoryPast Medical/Surgical HistoryMedical ProblemsA-fibCHF (congestive heart failure)Chronic CHFCOVID- 19DiabetesHypoglycemiaUnresponsiveReconciled Home Med ListSee Reconciled Home Medication ListAllergiesCoded Allergies:No Known Drug Allergies (12/06/20)Family history Father: in 60s. Doesnt know the cause of . Mother: Alive. 80s.Social History no tobacco use, no alcohol use, no recreational drug useReview of SystemsConstitutionalDenies: Pain, Fever, Chills, Generalized weakness.SkinDenies: rash, swelling.RespiratoryReports: non-productive cough. Denies: dyspnea, wheezing.CardiovascularDenies: chest pain, edema, palpitations.GastrointestinalDenies: nausea, vomiting, abdominal pain.GenitorurinaryReports: other (Pain after barraza insertion. ). Denies: dysuria, flank pain,frequency.MusculoskeletalDenies: extremity pain, extremity swelling.HematologyDenies: bleeding, bruising.EndocrineReports: diabetic.NeurologicalReports: change in LOC. Denies: focal weakness, numbn ess.PsychDenies: anxiety, depression.ExamVital SignsV[facility]: Temperature 93, blood pressure 166/106,heart rate 70, respiration 20, oxygen saturation 100% on oxygen supplement.Physical ExaminationGeneral Appearance no acute distress, afebrile, alert, awake, conversantHead atraumatic, normocephalicNeck no swelling, suppleCardiovascular regular rate, Positive S1-S2.Respiratory clear to auscultation, no distress, aerating wellAbdomen soft, non-tender, no distention, no guarding, no reboundUrinary no flank painExtremities no cyanosis, no edemaMuscoskeletal normal inspection, no brittney arthritisNeurological alert, oriented x 3, normal speech, no motor deficits, no sensorydeficits, Decreased sensation of bilateral lower extremities.Skin AssessmentSkin dry, intact, no rashPsych/Mental Status mood neutralData ReviewLaboratory TqjdZgonpwnqeehu21/14 1916 BLOOD: Blood Culture - ORD12/05 1900 BLOOD: Blood Culture - ORDImagingCXR from [place] emergency room: Mild pulmonary vascular congestion. Noinfiltrates.Assessment/PlanDiagnosis/Problem1. UnresponsiveA&P-CT of the head and [facility] was negative.-Suspect secondary to severe hypoglycemia.-[facility] emergency record demonstrated glucose level 14 on BMP.Patient continued receiving dextrose supplements.-Based on available record, patient was taking Tresiba 32 units daily and shortacting insulins.-Continue with D5NS. Continue glucose check every 4 hours. Continueneurochecks every 4 hours.2. HypoglycemiaA&P-Patient presented to [facility] emergency room with unresponsiveness,hypothermia and hypoglycemia.-Glucose was as low as 14. Patient was on long-acting insulin coverage withTresiba and short acting insulin coverage with lispro.-Patient was recently diagnosed COVID.-Continue with dextrose supplemented. Insulin will be on hold due topersistent hypoglycemia. Exact etiology for acute hypoglycemia is unknown atthis moment. Repeat laboratory tests ordered.3. COVID-19A&P-Patient was recently diagnosed with COVID-19 approximately 2 to 3 days ago.-Continue monitoring and managing hypoglycemia. Patient's mentation seems to beimproving.- According to cultures hospital record, patient was placed on highconcentration oxygen.-We will monitor patient closely in ICU for patient's oxygenation.4. CHF (congestive heart failure)A&P-Patient has had persistent hypoglycemia requiring continuous dextroseinfusion.-We will watch patient fluid status closely.5. A-fibA&P-Continue metoprolol.-Pradaxa is not on formulary. Switch to Lovenox.6. DiabetesCritical Care Time* Based on my evaluation, the patient has the above life-threateningconditions.* I have personally provided 35 minutes of critical care time exclusive ofbillable procedures caring for the patient.VTE ProphylaxisVTE Prophylaxis: Continue LovenoxCQM VTE HISTORYVTE HISTORYPrior VTE? NoDATE SIGNED: 12/11/20 Electronically SignedTIME SIGNED: 1925 NOLAN TRIANA DO Name Value Range Interpretation Code Description Data Aydee rce(s) Supporting Document(s) ID Date Data Source [id number] 12/11/2020 10:16:00 AM EST [facility] Name Value Range Interpretation Code Description Data Aydee rce(s) Supporting Document(s) [facility] ID Date Data Source [id number] 12/05/2020 09:38:00 AM [facility] 1 OrderSheet [facility] Emergency Department [address] [place] [address] Phone #: [phone] 12/05/2020 09:36 Patient: CHACHO RING Sex: M : 1950 Age: 70yWEIGHT:71.3 kg (M) HEIGHT:74 inches (E) BMI:20.2ALLERGIES: No Known Drug AllergyCHIEF COMPLAINT: diabetic, low blood sugar, decreased mental statusDIAGNOSIS: Severe acute respiratory syndrome coronavirus, Retention of urine, Hypothermia, HypoglycemiaLAB ORDERSOrder Description Priority Entered Acknowledged InitialedCBC w Diff STAT 09:49 12/05/2020 10:07 Moe Spaulding Jack ; Lilli PruittCMP STAT 09:49 12/05/2020 10:07 Moe Spaulding Jack ; Lilli PruittBlood Culture STAT 09:49 12/05/2020 10:07 rylee Spaulding X2 (Quentin Colindres ; Lilli Pruitt09:49 12/05/2020)Blood Culture STAT 09:49 12/05/2020 10:07 rojelio Spaulding0m X2 (Quentin Colindres ; Lilli Pruitt09:59 12/05/2020)Lactic Acid STAT 09:49 12/05/2020 10:07 Moe Spaulding Jack ; Lilli PruittUrinalysis (Cath STAT 09:49 12/05/2020 Ack'd: 10:41 11:17 Sony Spaulding) Quentin Coelho ; Llili Spaulding R.N., R.N.COVID-19 CAH STAT 09:49 12/05/2020 10:41 Jasson,(Symptomatic as Quentin Coelho ; Lilli PruittDefined by CDC)(12/05/2020) (NotFirst Test) (NotHospitalized) (Not)(Resident inCongregate CareSetting) (NotEmployed inHealthcare Setting)Influenza Nasal A B STAT 09:49 12/05/2020 10:41 Moe Spaulding Jack ; Lilli PruittBMP STAT 12:52 12/05/2020 13:06 Moe Azar Jack ; Amber R.N. 2 OrderSheet [facility] Emergency Department [address] [place] [address] Phone #: ext- [phone] 12/05/2020 09:36 Patient: CHACHO RING Sex: M : 1950 Age: 70yDIAGNOSTIC STUDY ORDERSOrder Description Priority Entered Acknowledged InitialedChest Portable 1 STAT 09:49 12/05/2020 10:08 Elgin Spaulding (Oxygen? Quentin Coelho ; Lilli Pruitt(Yes)) Reason for Study: Shortness of BreathCT Head W/O Cont STAT 11:04 12/05/2020 11:17 Jasson(Oxygen? (Yes)) Quentin Coelho R.N. Reason for Study: Altered Mental StatusCT CTA CHEST STAT 12:06 12/05/2020 Ack'd: 12:07 Georgia Azar R.N.(NONCOR) W CON Quentin Coelho ; Cancelled: Physician Order 13:26 Coelho,INC PP (Oxygen? Quentin(Yes)) (IV?(Yes)) Reason for Study: covid, coughMEDICATION/IV/DRIP/FLUID ORDERSOrder Description Priority Entered Acknowledged InitialedDextrose 50% 50mL 12:52 12/05/2020 13:06 Azar,IV X1 dose: 50 mL Quentin Coelho ; Georgia Pruitt(NOW x1, HIGHALERTMEDICATION)Zosyn- IVPB 4.5 gm 13:10 12/05/2020 Ack'd: 13:17 13:29 Azar,(in 50 mL D5W, X1) Quentin Coelho ; Georgia AzarNKirstie R.N.D5NS IV : 150 14:16 12/05/2020 14:26 Azar,mL/hr Quentin Coelho ; Georgia RLeftyDextrose 14:23 12/05/2020 14:25 Nissa,50%-Water IVP 25 Lilli Spaulding R.N.mL (NOW x1) R.N.; Verbal order per; Quentin CoelhoGENERAL ORDERSOrder Description Priority Entered Acknowledged InitialedEKG 09:50 12/05/2020 10:41 Moe Spaulding Jack ; Lilli Pruitt[Electronically signed by Georgia Azar R.N. (16:39 12/05/2020)][Electronically signed by Quentin Coelho (16:43 12/05/2020)][Electronically locked by Georgia Azar R.N. (16:39 12/05/2020)] Name Value Range Interpretation Code Description Data Aydee rce(s) Supporting Document(s) ID Date Data Source [id number] 12/05/2020 09:38:00 AM EST [facility] 1 Medication Reconciliation Report [facility] Emergency Department [address] [place] [address] Phone #: ext- [phone] 12/05/2020 09:36 Patient: CHACHO RING Sex: M : 1950 Age: 70yWeight: 71.3 kgHeight/Length: 74 in.BMI: 20.2ALLERGIES: No Known Drug AllergyThe patient's Home Medications are listed below:THE FOLLOWING MEDICATIONS NEED TO BE RECONCILED: Allopurinol Oral (100 mg) 1/2 tablet, daily Ascorbic Acid Oral (500 mg) 1 tablet, 2x a day Aspirin 81 Oral (81 mg) 1 tablet, daily buPROPion HCl Oral 300 mg, daily Cholecalciferol Oral (25 MCG (1000 UT)) 1 tablet, daily Cyanocobalamin Oral (1000 mcg) 1 tablet, daily Dulcolax Rectal, prn Esomeprazole Magnesium Oral 40 mg, daily Famotidine Oral 40 mg, daily Fleet Enema Rectal, prn FLUoxetine HCl Oral 20 mg, daily Folic Acid Oral 0.4 mg, daily Insulin Lispro Subcutaneous sliding scale Lisinopril Oral 20 mg, daily Magnesium Oxide Oral (400 mg) 1 tablet, daily 2 Medication Reconciliation Report [facility] Emergency Department [address] [place] [address] Phone #: ext- [phone] 12/05/2020 09:36 Patient: CHACHO RING Sex: M : 1950 Age: 70y Metoprolol Succinate Oral 50 mg, 2x a day Milk of Magnesia Oral, prn Multivitamin Oral, daily Pradaxa Oral (150 mg) 1 capsule, 2x a day Pravastatin Sodium Oral 20 mg, daily Ramelteon Oral (8 mg), daily, prn Santyl External, every other day Symbicort Inhalation 2 puffs, 2x a day Tresiba Subcutaneous 32 units, daily Zinc Oral (220 (50 Zn) mg) 1 capsule, dailyThe source(s) of the original Home Medication information:patient's senior living recordThe following Medications were given to the patient in the Emergency Department:Dextrose 50%-Water [IVP] IVP 25 gm, administered: 13:06 12/05/2020Zosyn [IVPB] IVPB bolus 0, then 4.5 gm 100 mL/hr, administered: 13:29 12/05/2020extrose 50%-Water [IVP] IVP 12.5 gm, administered: 14:20 12/05/2020D5NS IV IV Fluids bolus 0, then 150 mL/hr, administered: 14:26 12/05/2020The following Medications were prescribed to the patient:None. Name Value Range Interpretation Code Description Data Aydee rce(s) Supporting Document(s) ID Date Data Source [id number] 12/05/2020 09:38:00 AM EST [facility] 1 Medication Administration Record [facility] Emergency Department [address] [place] [address] Phone #: ext- [phone] 12/05/2020 09:36 Patient: CHACHO RING Sex: M : 1950 Age: 70yWeight: 71.3 kgHeight/Length: 74 inBMI: 20.2ALLERGIES: No Known Drug Allergy Date/Time Medication Administered Medication OrderedGiven DEXTROSE 50%-WATER [IVP] Dextrose 50% 50mL IV X1 dose: 5013:06 12/05/2020 Dose: 25 gm IVP mL (NOW x1, HIGH ALERTGeorgia Azar R.N. Site: #2 left forearm MEDICATION)Start ZOSYN [IVPB] (PIPERACILLIN Zosyn- IVPB 4.5 gm (in 50 mL13:29 12/05/2020 SOD-TAZOBACTAM SO) D5W, X1)Georgia Azar R.N. Dose: 4.5 gm IVPB---- Rate: 100 mL/hrStop Dispe nsed: 50 mL bag14:00 12/05/2020 Site: #1 left ACGeorgia Azar R.N.Start D5NS IV D5NS IV : 150 mL/hr14:26 12/05/2020 Dose: IV FluidsGeorgia Azar R.N. Rate: 150 mL/hr---- Dispensed: 1000 mL bagContinued Upon Transfer Site: #1 left AC16:20 12/05/2020Georgia Azar R.N.Given DEXTROSE 50%-WATER [IVP] Dextrose 50%-Water IVP 25 mL14:20 12/05/2020 Dose: 12.5 gm IVP (NOW x1)Georgia Azar R.N. Site: #1 left AC Name Value Range Interpretation Code Description Data Aydee rce(s) Supporting Document(s) ID Date Data Source [id number] 12/05/2020 09:38:00 AM [facility] 1 General Instructions [facility] Emergency Department [address] [place] [address] Phone #: [phone] 12/05/2020 09:36 Patient: CHACHO RING Sex: M : 1950 Age: 70yHypoglycemia with coma- associated with type 1 diabetes.Coronavirus COVID-19.Urinary retention with enlarged prostate.Moderate hypothermia with altered mental status. No hypothermia secondary to immersion or exposure.(Electronically signed by Quentin Coelho 12/05/2020 16:43) Name Value Range Interpretation Code Description Data Aydee rce(s) Supporting Document(s) ID Date Data Source [id number] 12/05/2020 09:38:00 AM [facility] 1 Clinical Report - Nurses [facility] Emergency Department [address] [place] [address] Phone #: ext- [phone] 12/05/2020 09:36 Patient: CHACHO RING Sex: M : 1950 Age: 70yTRIAGEArrived by EMS.Triage time: 09:37 12/05/2020. Acuity: LEVEL 2.Chief Complaint: (Hypoglycemia, unresponsive).Not alert.Onset: today. Onset. (unknown last well known time). ( Per EMS pt was unresponsive per call but wasresponsive on arrival, FS per EMS was 41, glucagon had been administered by [place] before this; Per EMSpt went unresponsive for them 5 times. 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 --09:41 12/05/20 Lilli Spaulding R.N.late entry - 09:40 12/05/20.SEPSIS SCREEN: SIRS SCREEN POSITIVE: temperature less than 36 degrees C (96.8 degrees F).--10:36 12/05/20 Lilli Spaulding R.N.09:40 12/05/20. BP: 166/106. MAP: 126. HR: 70. RR: 20. O2 saturation: 100%. O2 started vianon-rebreather. Temp: 93 F (oral). ED physician notified. Pain level now: 7/10. Additional comments: maybe inaccurate, will get rectal. --10:36 12/05/20 Lilli Spaulding R.N.Weight: 71.3 kg measured. Height/Length: 74 inches Estimated. BMI: 20.2. --09:36 12/05/20 Lilli Spaulding R.N.MedicationsAllopurinol Oral (Tablet 100 mg) 1/2 tablet, daily. --10:42 12/05/20 Lilli Spaulding R.N. Ascorbic Acid Oral (Tablet 500 mg) 1 tablet, 2x a day. --10:42 12/05/20 Lilli Spaulding R.N. Aspirin 81 Oral (Tablet Delayed Release 81 mg) 1 tablet, daily. --10:43 12/05/20 Lilli Spaulding R.N. buPROPion HCl Oral 300 mg, daily. --10:43 12/05/20 Lilli Spaulding R.N. Cholecalciferol Oral (Tablet 25 MCG (1000 UT)) 1 tablet, daily. --10:43 12/05/20 Lilli Spaulding R.N. Cyanocobalamin Oral (Tablet 1000 mcg) 1 tablet, daily. --10:43 12/05/20 Lilli Spaulding R.N. Dulcolax Rectal, as needed. --10:43 12/05/20 Lilli Hall R.N. Esomeprazole Magnesium Oral 40 mg, daily. --10:44 12/05/20 Lilli Spaulding R.N. Famotidine Oral 40 mg, daily. --10:44 12/05/20 Lilli Spaulding R.N. Fleet Enema Rectal, as needed. --10:44 12/05/20 Lilli Spaulding R.N. FLUoxetine HCl Oral 20 mg, daily. --10:44 12/05/20 Lilli Spaulding R.N. Folic Acid Oral 0.4 mg, daily. --11:02 12/05/20 Lilli Spaulding R.N. 2 Clinical Report - Nurses [facility] Emergency Department [address] [place] [address] Phone #: ext- [phone] 12/05/2020 09:36 Patient: CHACHO RING Sex: M : 1950 Age: 70yInsulin Lispro Subcutaneous sliding scale. --11:02 12/05/20 Lilli Spaulding R.N.Lisinopril Oral 20 mg, daily. --11:03 12/05/20 Lilli Spaulding R.N.Magnesium Oxide Oral (Tablet 400 mg) 1 tablet, daily. --11:03 12/05/20 Lilli Spaulding R.N.Metoprolol Succinate Oral 50 mg, 2x a day. --11:03 12/05/20 Lilli Spaulding R.N.Milk of Magnesia Oral, as needed. --11:04 12/05/20 Lilli Spaulding R.N.Multivitamin Oral, daily. --11:04 12/05/20 Lilli Spaulding R.N.Pradaxa Oral (Capsule 150 mg) 1 capsule, 2x a day. --11:04 12/05/20 Lilli Spaulding R.N.Pravastatin Sodium Oral 20 mg, daily. --11:04 12/05/20 Lilli Spaulding R.N.Ramelteon Oral (Tablet 8 mg), daily as needed. --11:04 12/05/20 Lilli Spaulding R.N.Santyl External, every other day. --11:05 12/05/20 Lilli Spaulding R.N.Symbicort Inhalation 2 puffs, 2x a day. --11:05 12/05/20 Lilli Spaulding R.N.Tresiba Subcutaneous 32 units, daily. --11:05 12/05/20 Lilli Spaulding R.N.Zinc Oral (Capsule 220 (50 Zn) mg) 1 capsule, daily. --11:05 12/05/20 Lilli Spaulding R.N.AllergiesNo Known Drug Allergy. --11:05 12/05/20 Lilli Spaulding R.N.PROBLEMS:Squamous cell carcinoma.Gastroesophageal Reflux Disease.Cardiomyopathy.COVID-19.COPD - Chronic Obstructive Pulmonary Disease.Metabolic encephalopathy.Allergic Rhinitis.Asthma.Diabetic foot ulcer.Atrial Fibrillation.Hypertension.Congestive Heart Failure.Diabetes Mellitus.Hypoglycemia.Gout. --11:07 12/05/20 Lilli Spaulding R.N.Medication/allergy information source: the patient's senior living record. --09:41 12/05/20 Lilli Spaulding R.N.ADDITIONAL SURGERIES:Hernia Repair.Total Hip Replacement. --11:07 12/05/20 Lilli Spaulding R.N.HistoryPAST MEDICAL HX: Immunizations: status is unknown.SOCIAL HX: Smoker - current status unknown. No alcohol use or drug use. No recent travel. He was 3 Clinical Report - Nurses [facility] Emergency Department [address] [place] [address] Phone #: ext- [phone] 12/05/2020 09:36 Patient: CHACHO RING Sex: M : 1950 Age: 70y offered HIV testing but declined. Patient education was provided. He was offered hepatitis C testing but declined. Patient education was provided. ( PT IS COVID POSITIVE). He has not traveled outside the [place] nfectious disease exposure: No infectious disease exposure. The patient was exposed to Coronavirus. Precautions taken. Patient taken to negative air flow isolation room. Patient is not a known carrier of tuberculosis, hepatitis, HIV, MRSA or VRE. Patient is not a known carrier of CRE. SELF HARM ASSESSMENT: Self harm assessment was performed. Unable to assess the patient in regard to the question(s) "Have you recently felt down, depressed, or hopeless?", "Do you have thoughts of harming or killing yourself?", "Do you have a plan for harming or killing yourself?", "Have you recently had thoughts about harming or killing others?", "Do you have any dangerous items in your possession?", "Have you noticed less interest or pleasure in doing things?", "Are you here because you tried to hurt yourself?" and "Have you ever tried to hurt yourself before today?". ABUSE ASSESSMENT: Abuse assessment. The patient had positive responses to the question(s) "Do you feel safe in your home?". Abuse denied. No suspicion of abuse. No report of abuse. FALL RISK ASSESSMENT: Fall risk assessment completed. [...] patient including fall prevention information. Verbalizes understanding. --09:41 12/05/20 Lilli Spaulding R.N. FAMILY HX: Unable to obtain family medical history due to the patient's altered mental status. --10:25 12/05/20 Quentin Coelho. Interventions Identification band on patient. Advanced care plan (FULL CODE). --09:41 12/05/20 Lilli Spaulding R.N.PHYSICAL ASSESSMENTTo room via stretcher. Patient gowned.GENERAL / NEURO / PSYCH: Alert. Bahman Coma Scale: 14- eyes open to sound (3); best verbalresponse- oriented (5); best motor response- obeys commands (6). The patient is disoriented to situation.( Pt more lethargic on first arrival, appeared to originally have hands clenched/contracted however pt canunclench them and move them purposefully, however appears to be very cold, cool to the touch. Pt pupilsdoes not appear to be reactive, MD aware, however all other neuro checks are within normal limits,although originally was difficult to tell as pt was too lethargic). Pupillary exam: Right pupil 3mm. Rightpupil not reactive. Left pupil: 3mm. Left pupil not reactive.RESPIRATORY: No respiratory distress. Respirations not labored. Chest nontender.CVS: Normal sinus rhythm noted. Pulses: right radial 2+; left radial 2+. Capillary refill is greater than 2seconds. Pulses within normal limits.GI / : Abdomen soft and nontender. Bowel sounds within normal limits.SKIN: Cyanosis. Skin is pale. Skin is markedly cool and profusely diaphoretic. ( Pt hands very cold,). 4 Clinical Report - Nurses [facility] Emergency Department [address] [place] [address] Phone #: ext- [phone] 12/05/2020 09:36 [id number] Sex: [facility] 1950 Age: 70y --10:39 12/05/20 Lilli Spaulding R.N.NURSING PROGRESS NOTES09:50 12/05/2020 Site #1 started via IV in the left antecubital space with an 18g angiocath, with aseptictechnique and good blood return; two attempts. Blood drawn: rainbow set and cultures x1. Labeled in thepresence of the patient and sent to the lab. Saline lock flushed with 10 mL saline. --09:52 12/05/20Lilli Spaulding R.N. Finger stick glucose: 84 mg/dL; ordered; performed by nurse; result shown to the ED physician. --09:58 12/05/20 Lilli Spaulding R.N. 10:02 12/05/2020 Site #2 started via IV in the left forearm with an 18g angiocath, with aseptic technique and good blood return; one attempt. Blood drawn: purple tube(s) and cultures x2. Saline lock flushed with 10 mL saline. --10:03 12/05/20 Lilli Spaulding R.N. Portable CXR was performed. --10:07 12/05/20 Lilli Spaulding R.N. EKG time: (late entry - 10:11 12/05/2020). EKG was ordered, performed by a nurse and shown to the ED physician. --10:12 12/05/20 Lilli Spaulding R.N. Oxygen decreased to 4 liters by nasal cannula. --10:25 12/05/20 Lilli Spaulding R.N. Patient ID band checked for patient name and birthdate: patient confirmed. Flu swab obtained by RN via nasal swab. Labeled in the presence of the patient and sent to lab. Patient ID band checked for patient name and birthdate: patient confirmed. COVID-19 specimen obtained by RN via nasopharyngeal swab. Labeled in the presence of the patient and sent to lab. --10:25 12/05/20 Lilli Spaulding R.N. ( neowrap placed on pt, warming blankets placed on pt.). --10:26 12/05/20 Lilli Spaulding R.N. late entry - 09:45 12/05/20. shelver, NIBP monitor and pulse oximeter placed on patient; fabric designer- Lead II; monitor alarms on; monitor strip added to paper chart. Patient gowned. Reassurance given. Three patient identifiers checked. Call light placed in reach. Side rails up x 2. Bed placed in lowest position. Brakes of bed on. Patient ready for evaluation- ED physician notified. --10:40 12/05/20 Lilli Spaulding R.N. 10:40 12/05/20. BP: 163/84. MAP: 110. HR: 70. RR: 17. O2 saturation: 100% on nasal cannula at 4 liters/minute. --10:40 12/05/20 Lilli Spaulding R.N. Oxygen decreased to 3 liters by nasal cannula; (per MD). Reassessment acuity: LEVEL 2. Rounding: Position: repositioned. Personal care / toileting: assisted with toileting. Proximity of possessions / care items: call light within easy reach. Set expectations: advised patient of rounding protocol timing and asked if they needed anything else at this time. The patient is calm and resting quietly. ( MD Coelho at bedside currently reevaluating and is aware of all pt status.). 5 Clinical Report - Nurses [facility] Emergency Department [address] [place] [address] Phone #: ext- [phone] 12/05/2020 09:36 Patient: CHACHO RING Sex: M : 1950 Age: 70yRESPIRATORY: No respiratory distress.CVS: Denies chest pain. --10:41 12/05/20 Lilli Spaulding R.N.10:40 12/05/20. Oxygen decreased to 2 liters by nasal cannula. 16 fr barraza catheter placed in ED.Reason for indwelling catheter: retention. During procedure hand hygiene observed and sterile equipmentand aseptic technique used. Return of 300 mL yellow-colored clear urine; odor is normal; attached tobedside drainage bag positioned below the bladder and secured with stabilization device. He toleratedprocedure well. Patient ID band checked for patient name and birthdate: patient confirmed. Instructionsprovided to collect clean catch urine and patient verbalized understanding. Catheterized urine collected;sample sent to lab for urinalysis. Specimen labeled in the presence of the patient. Reassessment acuity:LEVEL 2.Rounding: Personal care / toileting: assisted with toileting. Proximity of possessions / care items: call lightwithin easy reach. Set expectations: advised patient of rounding protocol timing and asked if they neededanything else at this time. ( MD aware of all VS, states no bear huger needed, will warm with blankets.Pt stated he needed to void and defecate but was unable to, lower abd slightly distended and firm at thistime; Barraza placed.). --11:09 12/05/20 Lilli Spaulding R.N.10:50 12/05/20. Temp: 93.1 F (rectal). ED physician notified. --11:09 12/05/20 Lilli Spaulding R.N.Oxygen decreased; (1LNC). --11:10 12/05/20 Lilli Spaulding R.N.11:17 12/05/20. BP: 141/82. MAP: 101. HR: 72. RR: 20. O2 saturation: 100% on nasal cannula at 1liters/minute. --11:17 12/05/20 Lilli Spaulding R.N.11:00 12/05/20. BP: 152/85. MAP: 107. HR: 76. RR: 19. O2 saturation: 100%. --11:18 12/05/20 Lilli Spaulding R.N.Patient transported to CT by stretcher with mask and endoscopy specialty technician. --11:26 12/05/20 Lilli Spaulding R.N.Care transferred and report given (Kat Azar RN). --11:26 12/05/20 Lilli Spaulding R.N.Patient returned f rom CT by stretcher with mask and endoscopy specialty technician. --11:44 12/05/20 Lilli Spaulding R.N.11:44 12/05/20. BP: 142/74. MAP: 96. HR: 64. RR: 20. O2 saturation: 100%. --11:44 12/05/20 Lilli Spaulding R.N.11:56 12/05/20. BP: 131/80. MAP: 97. HR: 65. RR: 16. O2 saturation: 100%. --11:56 12/05/20 Lilli Spaulding R.N.Oxygen administered by nasal cannula. shelver, NIBP monitor and pulse oximeter placed onpatient; monitor alarms on. Patient gowned. Reassurance given. 6 Clinical Report - Nurses [facility] Emergency Department [address] [place] [address] Phone #: ext- [phone] 12/05/2020 09:36 Patient: CHACHO RING Sex: M : 1950 Age: 70yRounding: Position: states comfortable. Proximity of possessions / care items: call light within easy reach.Plug ins: assured IV pump plugged in; checked status of equipment in use; located all cords, tubes, andlines to prev ent fall hazard. Set expectations: advised patient of rounding protocol timing and asked if theyneeded anything else at this time. Three patient identifiers checked. Call light placed in reach. Siderails up x 2. Bed placed in lowest position. Brakes of bed on. Patient waiting for lab and radiologyresults. --12:09 12/05/20 Georgia Azar R.N.13:06 12/05/2020 Dextrose 50%-Water IVP 25 gm given via site #2. Allergies verified and confirmed 5rights. IV patency established. IV site checked: no pain, redness, or swelling. IV flushed thoroughly pre-and post-medication administration. IVP given by RN. Information reviewed with patient including reasonfor taking this medication, signs of allergic reaction and precautions. Verbalizes understanding. --13:0612/05/20 Georgia Azar R.N.13:10 12/05/20. BP: 139/79. MAP: 99. HR: 69. RR: 12. O2 saturation: 98% on room air. Temp: 95.5 F(rectal). --13:11 12/05/20 Georgia Azar R.N.late entry - 13:00 12/05/20. Finger stick glucose: read Lo x 2 MD aware; performed by nurse; resultshown to the ED physician. --13:48 12/05/20 Georgia Azar R.N.13:29 12/05/2020 Started 4.5 gm of Zosyn (Piperacillin Sod- Tazobactam So) IVPB in bag #1 50 mL; at 100mL/hr via site #1. via IV pump. Allergies verified and confirmed 5 rights. IV patency established. IV sitechecked: no pain, redness, or swelling. IV flushed thoroughly pre- and post- medication administration.Information reviewed with patient including reason for taking this medication, signs of allergic reaction andprecautions. Verbalizes understanding. --13:30 12/05/20 Georgia Azar R.N.12:15 12/05/20. BP: 122/78. MAP: 92. HR: 63. RR: 18. O2 saturation: 100%. --13:56 12/05/20 Lilli Spaulding R.N.12:30 12/05/20. BP: 127/77. MAP: 93. HR: 65. RR: 16. O2 saturation: 100%. --13:56 12/05/20 Lilli Spaulding R.N.12:45 12/05/20. BP: 123/74. MAP: 90. HR: 64. RR: 20. O2 saturation: 100%. --13:56 12/05/20 Lilli Spaulding R.N.13:00 12/05/20. BP: 150/78. MAP: 102. HR: 66. RR: 20. O2 saturation: 100%. --13:56 12/05/20 Lilli Spaulding R.N.13:01 12/05/20. BP: 138/81. MAP: 100. HR: 67. RR: 22. O2 saturation: 100%. --13:57 12/05/20 Lilli Spaulding R.N.13:30 12/05/20. BP: 148/78. MAP: 101. HR: 69. RR: 14. O2 saturation: 97%. --13:57 12/05/20 Lilli Spaulding R.N. 7 Clinical Report - Nurses [facility] Emergency Department [address] [place] [address] Phone #: ext- [phone] 12/05/2020 09:36 Patient: CHACHO RING Sex: M : 1950 Age: 70y13:45 12/05/20. BP: 152/80. MAP: 104. HR: 70. RR: 14. O2 saturation: 98%. --13:57 12/05/20 Lilli Spaulding R.N.13:57 12/05/20. BP: 142/81. MAP: 101. HR: 77. RR: 16. O2 saturation: 98%. --13:59 12/05/20 Lilli Spaulding R.N.Serum glucose: 14. ED physician notifed of critical value (Dr. Coelho). Orders were received. --13: Lilli Spaulding R.N.late entry - 14:00 12/05/20. shelver, NIBP monitor and pulse oximeter placed on patient; monitoralarms on. P atient gowned. Reassurance given.Rounding: Position: states comfortable. Proximity of possessions / care items: call light within easy reach.Plug ins: assured IV pump plugged in; checked status of equipment in use; located all cords, tubes, andlines to prevent fall hazard. Set expectations: advised patient of rounding protocol timing and asked if theyneeded anything else at this time. Three patient identifiers checked. Call light placed in reach. Siderails up x 2. Bed placed in lowest position. Brakes of bed on. Patient waiting for admit bed. --16:342 Georgia Azar R.N.14:00 12/05/2020 Zosyn IVPB via IV site #1 Discontinued: bag #1 infused. Total amount infused: 50ml mL.IV patency established. IV site checked: no pain, redness, or swelling. IV flushed thoroughly. --16: Georgia Azar R.N.14:20 12/05/2020 Dextrose 50%- Water IVP 12.5 gm given via site #1. Allergies verified and confirmed 5rights. IV patency established. IV site checked: no pain, redness, or swelling. IV flushed thoroughly pre-and post-medication administration. IVP given by RN. Information reviewed with patient including reasonfor taking this medication, signs of allergic reaction and precautions. Verbalizes understanding. --14: Georgia Azar R.N.late entry - 14:20 12/05/20. Finger stick glucose: 42 mg/dL; performed by nurse; result shown to the EDphysician. --16:32 12/05/20 Georgia Azar R.N.14:26 12/05/2020 Started bag #1 1000 mL IV Fluids D5NS IV; at 150 mL/hr via site #1 via IV pump.Allergies verified and confirmed 5 rights. IV patency established. IV site checked: no pain, redness, orswelling. IV flushed thoroughly pre- and post-medication administration. Information reviewed with patientincluding reason for taking this medication, signs of allergic reaction and precautions. Verbalizesunderstanding. --14:26 12/05/20 Georgia Azar R.N.late entry - 15:00 12/05/20. shelver, NIBP monitor and pulse oximeter placed on patient; monitoralarms on. Patient gowned. Reassurance given.Rounding: Position: states comfortable. Proximity of possessions / care items: call light within easy reach.Plug ins: assured IV pump plugged in; checked status of equipment in use; located all cords, tubes, andl naren to prevent fall hazard. Set expectations: advised patient of rounding protocol timing and asked if they 8 Clinical Report - Nurses [facility] Emergency Department [address] [place] [address] Phone #: ext- [phone] 12/05/2020 09:36 Patient: CHACHO RING Sex: M : 1950 Age: 70y needed anything else at this time. Three patient identifiers checked. Call light placed in reach. Side rails up x 2. Bed placed in lowest position. Brakes of bed on. Patient waiting for transportation. --16:33 12/05/20 Georgia Azar R.N. late entry - 15:20 12/05/20. Finger stick glucose: 95 mg/dL; performed by nurse; result shown to the ED physician. --16:31 12/05/20 Georgia Azar R.N. late entry - 16:00 12/05/20. shelver, NIBP monitor and pulse oximeter placed on patient; monitor alarms on. Patient gowned. Reassurance given. Roundin g: Position: states comfortable. Proximity of possessions / care items: call light within easy reach. Plug ins: assured IV pump plugged in; checked status of equipment in use; located all cords, tubes, and lines to prevent fall hazard. Set expectations: advised patient of rounding protocol timing and asked if they needed anything else at this time. Three patient identifiers checked. Call light placed in reach. Side rails up x 2. Bed placed in lowest position. Brakes of bed on. Patient waiting for transportation and admit bed. --16:32 12/05/20 Georgia Azar R.NKirstie 16:20 12/05/2020 IV Fluids D5NS IV via IV site #1 Continued: upon transfer at the rate of 150 mL/hr. 800 mL remaining bag #1. IV patency established. IV site checked: no pain, redness, or swelling. IV flushed thoroughly. --16:30 12/05/20 Georgia Azar R.N. 14:30 12/05/20. BP: 150/88. MAP: 108. HR: 80. RR: 19. O2 saturation: 100% on room air. --16:36 12/05/20 Georgia Azar R.NKirstie 15:00 12/05/20. BP: 135/86. MAP: 102. HR: 73. RR: 17. O2 saturation: 100% on room air. --16:37 12/05/20 Georgia Azar R.N. 15:30 12/05/20. BP: 147/86. MAP: 106. HR: 85. RR: 16. O2 saturation: 100% on room air. --16:39 12/05/20 Georgia Azar R.NKirstie 16:00 12/05/20. BP: 139/80. MAP: 99. HR: 76. RR: 16. O2 saturation: 100% on room air. --16:39 12/05/20 Georgia Azar R.N. Intake Output late entry - 15:00 12/05/20. Urine output: 300 mL measured, catheter attached to bedside drainage bag. --16:34 12/05/20 Georgia Azar R.N.DISPOSITION / DISCHARGE late entry - 16:20 12/05/20. Departure time: late entry - 16:20 12/05/2020. Condition at departure: improved. Transferred to [facility]. Visit overview, summary of care (CCDA), Emtala forms and Face Sheet provided to EMS and transfer facility via paper and fax. Transported via ambulance by EMS with monitor, IV and mask. Report was given to a nurse. Report included information regarding patient's care, treatment, allergies and condition including: recent changes, current and abnormal vital signs and 9 Clinical Report - Nurses [facility] Emergency Department [address] [place] [address] Phone #: ext- [phone] 12/05/2020 09:36 Patient: CHACHO RING Sex: M : 1950 Age: 70y abnormal labs. Report included treatment information regarding medications given or pending and home medications; type and amount of IV fluids and medications infusing and total volume infused. All questions were answered. Report was acknowledged and care was transferred. ([facility] ICU @151). --16:30 12/05/20 Georgia Azar R.N. 16:15 12/05/20. BP: 139/80. MAP: 99. HR: 77. RR: 19. O2 saturation: 100% on room air. Temp: 95.7 F (rectal). Martinez-Vitale pain scale: 10. --16:30 12/05/20 Georgia Azar R.N.Locked/Released at 12/05/2020 16:39 by Georgia Azar R.N. Name Value Range Interpretation Code Description Data Aydee rce(s) Supporting Document(s) ID Date Data Source [id number] 0001 12/05/2020 09:38:00 AM [facility] 1 Clinical Report - Physicians/Mid Levels [facility] Emergency Department [address] [place] [address] Phone #: ext- [phone] 12/05/2020 09:36 Patient: CHACHO RING Sex: M : 1950 Age: 70y Time Seen: 09:57 12/05/2020. Arrived- By ambulance. Historian- patient and EMS personnel. History limited by altered mental status. Physical Exam limited by altered mental status. Disposition decision: 15:45 12/05/2020.HISTORY OF PRESENT ILLNESS Chief Complaint: DECREASED MENTAL STATUS, LOW BLOOD SUGAR and DIABETIC. The patient is described as having decreased responsiveness. This started just prior to arrival. The patient was found unresponsive. alf resident. Medication was given prior to arrival (glucagon). No weakness. No difficulty walking. (Patient reportedly COVID positive at [facility]. He was not answering questions or responding when EMS arrived at senior living. He's had improvement on route. Given Glucagon prior to arrival. Accucheck at senior living was 40).REVIEW OF SYSTEMSUnobtainable due to patient's altered mental status. No vomiting. He has had back pain and pain.PAST HISTORYSee nurses notes. Problems: Atrial Fibrillation. Hypertension. Congestive Heart Failure. Diabetes Mellitus. Hypoglycemia. Gout. Additional Surgeries: Hernia Repair. Total Hip Replacement.SOCIAL HISTORYNever smoker. Resides in a senior living.FAMILY HISTORYUnable to obtain family medical history due to the patient's altered mental status.ADDITIONAL NOTESThe nursing notes have been reviewed. 2 Clinical Report - Physicians/Mid Levels [facility] Emergency Department [address] [place] [address] Phone #: ext- [phone] 12/05/2020 09:36 Patient: CHACHO RING Sex: M : 1950 Age: 70yPHYSICAL EXAMAppearance: Lethargic. Odor of alcohol is not present. (follow simple commands).Head: Head atraumatic.Eyes: Pupils equal, round and reactive to light. No dysconjugate gaze. No nystagmus.ENT: Normal ENT inspection. Moist mucous membranes. (no drooling).Neck: Normal inspection. Neck supple.CVS: Abnormal rhythm, which is regularly irregular. 2/6 mid systolic murmur.Respiratory: No respiratory distress. Mildly decreased air movement in the bases bilaterally. Painlessinspiration.Abdomen: Soft and nontender. (suprapubic fullness noted).Back: (kyphosis, no bony tenderness).Extremities: Extremities exhibit normal ROM. No lower extremity edema.Neuro: Altered mental status. The patient is disoriented. Alertness is decreased. No cerebellarfindings. He has weakness of the right arm (4+/5 movement possible against some resistance byexaminer), right leg (4+/5 movement possible against some resistance by examiner), left arm (4+/5movement possible against some resistance by examiner) and left leg (4+/5 movement possible againstsome resistance by examiner). No pronator drift.LABS, X-RAYS, AND EKGEKG: EKG time: 10:11 12/05/2020. No acute ischemia. Normal sinus rhythm. Rate: 70. Normal Pwaves. Normal BLAIRE. Normal axis. Normal ST and T waves. Prolonged QT. The study has beeninterpreted contemporaneously by me. Interpretation time: 10:17 12/05/2020.Chest X-ray: Vascular congestion present. No infiltrate. The X-rays were independently viewed by suzanne interpreted by the radiologist.Laboratory Tests: BMP: (FELI: 12/05/2020 13:03) ( MsgRcvd 12/05/2020 13:59) Final results Test Result Flag Units (Reference) BASIC METABOLIC PANEL BASIC METABOLIC PANEL SODIUM 135 mEq/L (134 - 153) POTASSIUM 4.0 mEq/L (3.6 - 5.0) CHLORIDE 102 mEq/L (98 - 107) CO2 25 MEQ/L (22 - 30) GLUCOSE 14 LL MG/DL (70 - 99) CALL/ READ BACK S[facility] ER BY: HAYLEY DATE/TIME 12.05.20 1359 BUN 20 MG/DL (7 - 21) CREATININE 0.5 L MG/DL (0.7 - 1.5) BUN/CREAT 40 H (8 - 27) CALCIUM 8.6 MG/DL (8.4 - 10.2) ANION GAP 8.0 mmol/L (8.0 - 16.0) AGE 70 yrs AFR AMER GFR >60 mL/min NON-AA GFR >60 mL/min Male GFR Interprentation 20-49 yrs >60 mL/min Normal 50-59 yrs >56 mL/min Normal 60-69 yrs >49 mL/min Normal 70-79yrs >42 mL/min Normal 80 and above >35 mL/min Normal Female GFR Interpretation 20-39 yrs >60 mL/min Normal 40-49 yrs >58 mL/min Normal 50-59 yrs >51 mL/min Normal 60-69 yrs >45 mL/min Normal 3 Clinical Report - Physicians/Mid Levels [facility] Emergency Department [address] [place] [address] Phone #: ext- [phone] 12/05/2020 09:36 Patient: CHACHO RING Sex: M : 1950 Age: 70y70- 79 yrs >39 mL/min Normal 80 and above >32 mL/min NormalCT CTA CHEST NON-CORONARY W CON INC PP: (FELI: 12/05/2020 12:06) ( MsgRcvd 12/05/2020 13:26)CanceledReason(s): covid, coughReason(s): covid, coughTRANSPORTATION: S IV? IV?(Yes) O2? Oxygen?(Yes) RCBC w Diff: (FELI: 12/05/2020 09:50) ( MsgRcvd 12/05/2020 10:19) Final results Test Result Flag Units (Reference) CBC W/AUTOMATED DIFF COMPLETE BLOOD COUNT WBC 9.0 10/uL (4.2 - 11.0) RBC 4.60 10/uL (4.50 - 6.30) HEMOGLOBIN 11.4 L g/dL (14.0 - 16.0) HEMATOCRIT 36.1 L % (41.0 - 51.0) MCV 78.5 L fL (80.0 - 94.0) MCH 24.8 L pg (27.0 - 34.0) MCHC 31.6 g/dL (31.0 - 36.0) RDW 15.9 H % (11.5 - 14.8) PLATELETS 428 10/uL (150 - 450) MPV 9.2 fL (7.4 - 10.4) NEUT 51.1 % (37.0 - 80.0) LYMPH 40.1 H % (25.0 - 40.0) MONO 7.0 % (3.0 - 8.0) EOS 1.0 % (0.0 - 7.0) BASO 0.2 % (0.0 - 2.0) %IG 0.6 H % (0.0 - 0.0) %NRBC 0.0 % (0.0 - 0.0) #NEUT 4.61 10/uL (2.00 - 6.90) #LYMPH 3.62 H 10/uL (0.60 - 3.40) #MONO 0.63 10/uL (0.00 - 0.90) #EOS 0.09 10/uL (0.00 - 0.70) #BASO 0.02 10/uL (0.00 - 0.20) #IG 0.05 10/uL (0.00 - 0.10) #NRBC 0.00 10/uL (0.00 - 0.00) MANUAL DIFF NOT INDICATED RBC MORPH NOT INDICATEDCMP: (FELI: 12/05/2020 09:50) ( MsgRcvd 12/05/2020 10:47) Final results Test Result Flag Units (Reference) COMPREHENSIVE METABOLIC PANEL COMPREHENSIVE METABOLIC PANEL SODIUM 135 mEq/L (134 - 153) POTASSIUM 4.1 mEq/L (3.6 - 5.0) CHLORIDE 99 mEq/L (98 - 107) CO2 28 MEQ/L (22 - 30) GLUCOSE 72 MG/DL (70 - 99) BUN 17 MG/DL (7 - 21) CREATININE 0.7 MG/DL (0.7 - 1.5) BUN/CREAT 24 (8 - 27) TOTAL PROTEIN 8.9 H G/DL (6.3 - 8.2) ALBUMIN 4.0 G/DL (3.9 - 5.0) GLOBULIN 4.9 H GM/DL (2.4 - 3.2) A/G RATIO 0.8 (0.8 - 2.0) 4 Clinical Report - Physicians/Mid Levels [facility] Emergency Department [address] [place] [address] Phone #: ext- [phone] 12/05/2020 09:36 Patient: CHACHO RING Sex: M : 1950 Age: 70y CALCIUM 9.3 MG/DL (8.4 - 10.2) TOTAL BILI <0.7 MG/DL (0.2 - 1.3) ALKALINE PHOS 123 U/L (38 - 126) SGOT/AST 21 U/L (5 - 40) SGPT/ALT 11 U/L (7 - 56) ANION GAP 8.0 mmol/L (8.0 - 16.0) AGE 70 yrs NON-AA GFR >60 mL/min AFR AMER GFR >60 mL/min Male GFR Interprentation 20-49 yrs >60 mL/min Igbpjo49-44 yrs >56 mL/min Normal 60-69 yrs >49 mL/min Normal 70-79yrs>42 mL/min Normal 80 and above >35 mL/min Normal Female GFRInterpretation 20-39 yrs >60 mL/min Normal 40-49 yrs >58 mL/minNormal 50-59 yrs >51 mL/min Normal 60-69 yrs >45 mL/min Frcikp03-60 yrs >39 mL/min Normal 80 and above >32 mL/min NormalLactic Acid: (FELI: 12/05/2020 09:50) ( MsgRcvd 12/05/2020 10:52) Final results Test Result Flag Units (Reference) LACTIC ACID 2.5 H MMOL/L (0.2 - 2.2)Urinalysis: (FELI: 12/05/2020 10:50) ( MsgRcvd 12/05/2020 11:32) Final results Test Result Flag Units (Reference) URINALYSIS URINALYSIS SOURCE R COLOR yellow (NORMAL: Yello CLARITY clear (NORMAL: Clear SPEC GRAVITY 1.010 (1.001 - 1.030 pH 6.5 (5 - 9) GLUCOSE NORM (NORMAL: Negat BILIRUBIN NEG (NORMAL: Negat KETONE NEG (NORMAL: Negat PROTEIN 30 (NORMAL: Negat NITRITE NEG (NORMAL: Negat BLOOD 25 A (NORMAL: Negat LEUK EST NEG (NORMAL: Negat UROBILINOGEN NOR (less than 1.0 MICROSCOPIC See Below WBC 1 - 3 (NORMAL: NONE RBC 10 - 15 A (NORMAL: NONE EPITHELIAL FEW (NORMAL: NONE BACTERIA Trace (NORMAL: NONECOVID-19 CAH: (FELI: 12/05/2020 10:20) ( [facility] [place] 12/05/2020 11:27) Final results Test Result Flag Units (Reference) COVID-19 DETECTED COVID-19 REENTER DETECTED { PROCEDURAL CONTROL VALID KIT LOT # _[id number] 12/05/20.1126.TAD. . . KIT EXP DATE _02.26.21 12/05/20.1126.TAD. . . NORMAL RANGE IS NOT DETECTEDNEGATIVE RESULTSSHOULD BE TREATED PRESUMPTIVE AND, IF INCONSISTENT WI THCLINICAL SIGNS AND SYMPTOMS OR NECESSARY FOR PATIENTMANAGEMENT, SHOULD BETESTED WITH DIFFERENT AUTHORIZED OR CLEARED MOLECULAR TESTS. NEGATIVE RESULTSDO NOT [id number] INFECTION AND SHOULD NOT BE USED THE SOLE BASISFOR PATIENT MANAGEMENT DECISIONS.Influenza Nasal A B: (FELI: 12/05/2020 10:20) ( [facility] [place] 12/05/2020 11:09) Final results 5 Clinical Report - Physicians/Mid Levels [facility] Emergency Department [address] [place] [address] Phone #: ext- [phone] 12/05/2020 09:36 Patient: CHACHO RING Sex: M : 1950 Age: 70y Test Result Flag Units (Reference) INFLUENZA A NEGATIVE (NORMAL: NEGAT INFLUENZA B NEGATIVE (NORMAL: NEGAT INFLUENZA A REENTER NEGATIVE (NORMAL: NEGAT INFLUENZA B REENTER NEGATIVE (NORMAL: NEGAT PROCEDURAL CONTROL VALID KIT LOT # _[id number] 12/05/20.1107.TAD. KIT EXP DATE _10.23.21 12/05/20.TAD.The Influenza A utilizing an isothermal nucleic acid amplification technology for thequalitativedetection of influenza A and B viral RNA.Negative results do not preclude influenza virus infection and shouldnot beused as the sole basis for diagnosis, treatment or other patient managementdecisions.Chest Portable 1 View: (FELI: 12/05/2020 09:49) ( MsgRcvd 12/05/2020 11:59) In [place] [address] PHONE: [phone] FAX: [phone] Name .................. : LUCITA FLOR Acct Number.................. : [id number] ROOM. ................. : TR-1B MR Number ................... : [id number] Stay type ............. : E/R Discharge Date......... ... : Admit Date ......... : 12/05/20 Admit Phys .................... : MOE Grover Date of ....... : 1950 Family Phys ................... : JUAN CARLOS Phone .................. : [phone] Age ................................ : 70 Film# .................. .:[id number] Sex ................................. : M Unsigned transcriptions are preliminary reports and do not represent a medical or legal document CHEST PORTABLE [id number] COMPLETE:12/05/20 09:49 4302 Reason(s): Shortness of Breath PORTABLE CHEST X-RAY: INDICATION: Shortness of breath. COMPARISON: 06/09/20 FINDINGS: Portable upright chest submitted. Pulmonary vascular congestion. No infiltrate or effusion. The patient's chin obscures the medial aspect of the lung apices. Cardiac silhouette within normal limits. The osseous structure are unremarkable. IMPRESSION: Mild pulmonary vascular congestion. No infiltrate. Electronically Reviewed and Signed By DCTNAME SIGNDATEBEE Transcribe Initials: BALDO , Transcribe Date: 12/05/20 11:57, Dictation Date: <<REPDIST>> 6 Clinical Report - Physicians/Mid Levels [facility] Emergency Department [address] [place] [address] Phone #: ext- [phone] 12/05/2020 09:36 Patient: CHACHO RING Sex: M : 1950 Age: 70y Page 1 of 1.PROGRESS AND PROCEDURESCourse of Care: 10:28 02/14/21. Reports of abnormal posturing by EMS personnel raises question aboutpossible seizure activity. All his symptoms may be due to hypoglycemia. will rule out pneumonia, sepsis,acute renal injury, dysrhythmia, adrenal insufficiency. 12:01 12/05/20. Case discussed with Dr. Pimentel. Patient just turned positive several days ago. Active rewarming. 13:08 12/05/20. Patient became less responsive and started to stare off into the distance. nonverbal with occasional bobbing of head up and down. Accucheck read "lo" D50 given and chemistry repeated immediately prior to administration of dextrose 14:29 12/05/20. Patient persistently hypoglycemic. Started on D5W infusion. Case discussed with Dr Triana 16:40 12/05/20. Patient's repeat accucheck 95. Responding well and awake. D5 infusion running. Barraza draining well after insertion to relieve the dilated bladder earlier. Critical care performed (50 minutes). Time is exclusive of separately billable procedures. Time includes: direct patient care, patient reassessment, coordination of patient care and medical consultation. Disposition: Transferred to [facility]. Condition: critical.CLINICAL IMPRESSION Hypoglycemia with coma- associated with type 1 diabetes. Coronavirus COVID-19. Urinary retention with enlarged prostate. Moderate hypothermia with altered mental status. No hypothermia secondary to immersion or exposure.(Electronically signed by Quentin Coelho 12/05/2020 16:43) Name Value Range Interpretation Code Description [facility] Supporting Document(s) ID Date Data Source [id number] 12/05/2020 09:38:00 AM [facility] VisitID: [id number] Date: 12:17T-Systems overview faxed to [employer] with overview.(Electronically signed by Brian Blank - 12/05/2020 12:17) Name Value Range Interpretation Code Description Data [facility] rce(s) Supporting Document(s) ID Date Data Source [id number] 12/05/2020 01:50:00 PM [facility] Name Value Range Interpretation Code Description Data [facility] Supporting Document(s) BASIC METABOLIC PANEL [facility] BASIC METABOLIC PANEL Sodium [Moles/volume] in Serum or Plasma 135 mEq/L 134 - 153 [facility] Potassium [Moles/volume] in Serum or Plasma 4.0 mEq/L 3.6 - 5.0 [facility] Chloride [Moles/volume] in Serum or Plasma 102 mEq/L 98 - 107 [facility] Carbon dioxide, total [Moles/volume] in Serum or Plasma 25 MEQ/L 22 - 30 [facility] Glucose [Mass/volume] in Serum or Plasma 14 MG/DL 70 - 99 LL [facility] CALL/ READ BACK SABIHA [employer]ES [facility] BY: [facility]AY[facility] 12.05.20 1359 [facility] pital BUN 20 MG/DL 7 - [facility] Creatinine [Mass/volume] in Serum or Plasma 0.5 MG/DL 0.7 - 1.5 L [facility] BUN/CREAT 40 8 - 27 H [facility] Calcium [Mass/volume] in Serum or Plasma 8.6 MG/DL 8.4 - 10.2 [facility] Anion gap 3 in Serum or Plasma 8.0 mmol/L 8.0 - 16.0 [facility] AGE 70 yrs [facility] AFR AMER GFR >60 mL/min [facility] spital NON-AA GFR >60 mL/min [facility] Male GFR Inter prentation 20-49 yrs >60 mL/min Normal 50-59 yrs >56 mL/min Normal 60-69 yrs >49 mL/min Normal 70-79yrs >42 mL/min Normal 80 and above >35 mL/min Normal Female GFR Interpretation 20-39 yrs >60 mL/min Normal 40-49 yrs >58 mL/min Normal 50-59 yrs >51 mL/min Normal 60-69 yrs >45 mL/min Normal 70-79 yrs >39 mL/min Normal 80 and above >32 mL/min Normal ID Date Data Source [id number] 12/05/2020 11:32:00 AM EST [facility] Name Value Range Interpretation Code Description Data Aydee rce(s) Supporting Document(s) URINALYSIS [facility] ashleigh URINALYSIS SOURCE R [facility] COLOR yellow NORMAL: Yellow [facility]spital CLARITY clear NORMAL: Clear [facility] spital Specific gravity of Urine by Test strip 1.010 1.001 - 1.030 [facility] pH 6.5 5 - 9 [facility] Glucose [Mass/volume] in Urine by Test strip NORM NORMAL: Negat [facility] Bilirubin.total [Presence] in Urine by Test strip NEG NORMAL: Negative [facility] Ketones [Presence] in Urine by Test strip NEG NORMAL: Negative [facility] Protein [Mass/volume] in Urine by Test strip 30 NORMAL: Negat [facility] Nitrite [Presence] in Urine by Test strip NEG NORMAL: Negative [facility] BLOOD 25 NORMAL: Negative [facility] Leukocyte esterase [Presence] in Urine by Test strip NEG MICKEY L: Negative [facility] Urobilinogen [Mass/volume] in Urine by Test strip NOR less gianna n 1.0 mg/dL [facility] MICROSCOPIC See Below [facility] WBC 1 - [address]: [address] [facility] Erythrocytes [#/volume] in Urine by Test strip 10 - 15 NORMAL: NON E SEEN [facility] EPITHELIAL FEW NORMAL: NONE SEEN [facility] Bacteria [Presence] in Urine sediment by Light microscopy Tr joel NORMAL: NONE SEEN [facility] ID Date Data Source [id number] 12/05/2020 10:20:00 AM EST [facility] Name Value Range Interpretation Code Description Data Aydee rce(s) Supporting Document(s) COVID19 Case rprt [facility]ED [facility] This lab was ordered by [facility] and reported by [facility]. ID Date Data Source [id number] 12/05/2020 11:26:00 AM EST [facility] DETECTEDDETECTED{ PROCEDURAL C ONTROL VALID KIT LOT # _[id number] 12/05/20.TAD. . . KIT EXP DATE _02.26.21 12/05/20.TAD. . . NORMAL RANGE IS NOT DETECTEDNEGATIVE RESULTS SHOULD BE TREATED PRESUMPTIVE AND, IF INCONSISTENT WITHCLINICAL SIGNS AND SYMPTOMS OR NECESSARY FOR PATIENT MANAGEMENT, SHOULD BETESTED WITH DIFFERENT AUTHORIZED OR CLEARED MOLECULAR TESTS. NEGATIVE RESULTSDO NOT PRECLUDE SARS-CoV-2 INFECTION AND SHOULD NOT BE USED THE SOLE BASISFOR PATIENT MANAGEMENT DECISIONS. Name Value Range Interpretation Code Description Data Aydee rce(s) Supporting Document(s) ID Date Data Source [id number] 12/05/2020 11:08:00 AM [facility] Name Value Range Interpretation Code Description Data Aydee rce(s) Supporting Document(s) Influenza virus A Ag [Presence] in Nasopharynx by [facility] y NEGATIVE NORMAL: NEGATIVE [facility] Influenza virus B Ag [Presence] in Nasopharynx by Immunoassa y NEGATIVE NORMAL: NEGATIVE [facility] NEGATIVENEGATIVE PROCEDURAL CO NTROL VALID KIT LOT # _[id number] 12/05/20.1108.TAD. KIT EXP DATE _10.23.21 12/05/208.TAD.The Influenza A & B assay is a rapid molecular in vitro diagnostic testutilizing an isothermal nucleic acid amplification technology for thequalitative detection of influenza A and B viral RNA.Negative results do not preclude influenza virus infection and should not beused as the sole basis for diagnosis, treatment or other patient managementdecisions. ID Date Data Source [id number] 12/10/2020 04:51:00 PM [facility] [address] Name Value Range Interpretation Code Description Data Aydee rce(s) Supporting Document(s) Bacteria identified in Blood by Culture [facility] NO GROWTH AFTER 5 DAYS ID Date Data Source [id number] 12/12/2020 11:46:00 AM [facility] Name Value Range Interpretation Code Description Data Aydee rce(s) Supporting Document(s) CULTURE BLOOD [facility] spital _CULTURE BLOOD_ [place] [address] CLIA# [id number] SEE SCANNED REPORT{ PRELIM ID Date Data Source [id number] 12/05/2020 10:50:00 AM [facility] Name Value Range Interpretation Code Description Data Aydee rce(s) Supporting Document(s) Lactate [Moles/volume] in Serum or Plasma 2.5 MMOL/L 0.2 - 2.2 H [facility] ID Date Data Source [id number] 12/05/2020 10:47:00 AM EST [facility] Name Value Range Interpretation Code Description Data Aydee rce(s) Supporting Document(s) COMPREHENSIVE METABOLIC PANEL [facility] COMPREHENSIVE METABOLIC PANEL Sodium [Moles/volume] in Serum or Plasma 135 mEq/L 134 - 153 [facility] Potassium [Moles/volume] in Serum or Plasma 4.1 mEq/L 3.6 - 5.0 [facility] Chloride [Moles/volume] in Serum or Plasma 99 mEq/L 98 - 107 [facility] Carbon dioxide, total [Moles/volume] in Serum or Plasma 28 MEQ/L 22 - 30 [facility] Glucose [Mass/volume] in Serum or Plasma 72 MG/DL 70 - 99 [facility] BUN 17 MG/DL 7 - 21 [facility] Creatinine [Mass/volume] in Serum or Plasma 0.7 MG/DL 0.7 - 1.5 [facility] BUN/CREAT 24 8 - 27 [facility] Protein [Mass/volume] in Serum or Plasma 8.9 G/DL 6.3 - 8.2 H [facility] Albumin [Mass/volume] in Serum or Plasma 4.0 G/DL 3.9 - 5.0 [facility] Globulin [Mass/volume] in Serum by calculation 4.9 GM/DL 2.4 - 3.2 H [facility] A/G RATIO 0.8 0.8 - 2.0 [facility] Calcium [Mass/volume] in Serum or Plasma 9.3 MG/DL 8.4 - 10.2 [facility] Bilirubin.total [Mass/volume] in Serum or Plasma <0.7 MG/DL 0.2 - 1.3 [facility] Alkaline phosphatase [Enzymatic activity/volume] in Serum or Plasma 123 U/L 38 - 126 [facility] Aspartate aminotransferase [Enzymatic activity/volume] in Serum or Plasma 21 U/L 5 - 40 [facility] Alanine aminotransferase [Enzymatic activity/volume] in Seru m or Plasma 11 U/L 7 - 56 [facility] Anion gap 3 in Serum or Plasma 8.0 mmol/L 8.0 - 16.0 [facility] AGE 70 yrs [facility] al NON-AA GFR >60 mL/min [facility]osp ital AFR AMER GFR >60 mL/min [facility] spital Male GFR In terprentation 20-49 [...] >32 mL/min Normal ID Date Data Source [id number] 12/05/2020 10:18:00 AM EST [facility] Name Value Range Interpretation Code Description Data Aydee rce(s) Supporting Document(s) CBC W/AUTOMATED DIFF [facility] COMPLETE BLOOD COUNT Leukocytes [#/volume] in Blood by Automated count 9.0 10^3/uL 4.2 - 1 1.0 [facility] Erythrocytes [#/volume] in Blood by Automated count 4.60 10^6/uL 4. 50 - 6.30 [facility] Hemoglobin [Mass/volume] in Blood 11.4 g/dL 14.0 - 16.0 L [facility] Hematocrit [Volume Fraction] of Blood by Automated count 36.1 % 4 1.0 - 51.0 L [facility] Erythrocyte mean corpuscular volume [Entitic volume] by Auto mated count 78.5 fL 80.0 - 94.0 L [facility] Erythrocyte mean corpuscular hemoglobin [Entitic mass] by Automated count 24.8 pg 27.0 - 34.0 L [facility] Erythrocyte mean corpuscular hemoglobin concentration [Mass/volume] by Automated count 31.6 g/dL 31.0 - 36.0 [facility] Erythrocyte distribution width [Ratio] by Automated count 15.9 % 11.5 - 14.8 H [facility] Platelets [#/volume] in Blood by Automated count 428 10^3/uL 150 - 45 0 [facility] Platelet mean volume [Entitic volume] in Blood by Automated count 9.2 fL 7.4 - 10.4 [facility] Neutrophils/100 leukocytes in Blood by Automated count 51.1 % 37. 0 - 80.0 [facility] Lymphocytes/100 leukocytes in Blood by Manual count 40.1 % 25.0 - 40.0 H [facility] Monocytes/100 leukocytes in Blood by Automated count 7.0 % 3.0 - 8.0 [facility] Eosinophils/100 leukocytes in Blood by Automated count 1.0 % 0.0 - 7.0 [facility] Basophils/100 leukocytes in Blood by Automated count 0.2 % 0.0 - 2.0 [facility] %IG 0.6 % 0.0 - 0.0 H [facility] Hospit al %NRBC 0.0 % 0.0 - 0.0 [facility] al Neutrophils [#/volume] in Blood by Automated count 4.61 10^3/uL 2.00 - 6.90 [facility] Lymphocytes [#/volume] in Blood by Automated count 3.62 10^3/uL 0.60 - 3.40 H [facility] Monocytes [#/volume] in Blood by Automated count 0.63 10^3/uL 0.00 - 0.90 [facility] Eosinophils [#/volume] in Blood by Automated count 0.09 10^3/uL 0.00 - 0.70 [facility] Basophils [#/volume] in Blood by Automated count 0.02 10^3/uL 0.00 - 0.20 [facility] #IG 0.05 10^3/uL 0.00 - 0.10 [facility] #NRBC 0.00 10^3/uL 0.00 - 0.00 [facility] MANUAL DIFF NOT INDICATED [facility] RBC MORPH NOT INDICATED [facility] spital ID Date Data Source [id number] 12/12/2020 11:46:00 AM EST [facility] Name Value Range Interpretation Code Description Data Aydee rce(s) Supporting Document(s) CULTURE BLOOD [facility] spital _CULTURE BLOOD_ TEST [place] [address] [facility]# [id number] SEE SCANNED REPORT{ PRELIM ID Date Data Source [id number] 11/30/2020 09:19:00 AM EST [facility] Name Value Range Interpretation Code Description Data Aydee rce(s) Supporting Document(s) COMPREHENSIVE METABOLIC PANEL [facility] COMPREHENSIVE METABOLIC PANEL Sodium [Moles/volume] in Serum or Plasma 133 mEq/L 134 - 153 L [facility] Potassium [Moles/volume] in Serum or Plasma 4.5 mEq/L 3.6 - 5.0 [facility] Chloride [Moles/volume] in Serum or Plasma 98 mEq/L 98 - 107 [facility] Carbon dioxide, total [Moles/volume] in Serum or Plasma 22 MEQ/L 22 - 30 [facility] Glucose [Mass/volume] in Serum or Plasma 410 MG/DL 70 - 99 [facility] CALL/ READ BACK MEME MASON [address] BY: HAYLEY [facility] al DATE/TIME 11.30.20 [facility] BUN 26 MG/DL 7 - 21 H [facility] Creatinine [Mass/volume] in Serum or Plasma 0.9 MG/DL 0.7 - 1.5 [facility] BUN/CREAT 29 8 - 27 H [facility] Protein [Mass/volume] in Serum or Plasma 6.9 G/DL 6.3 - 8.2 [facility] Albumin [Mass/volume] in Serum or Plasma 3.3 G/DL 3.9 - 5.0 L [facility] Globulin [Mass/volume] in Serum by calculation 3.6 GM/DL 2.4 - 3.2 H [facility] A/G RATIO 0.9 0.8 - 2.0 [facility] Calcium [Mass/volume] in Serum or Plasma 8.8 MG/DL 8.4 - 10.2 [facility] Bilirubin.total [Mass/volume] in Serum or Plasma <0.7 MG/DL 0.2 - 1.3 [facility] Alkaline phosphatase [Enzymatic activity/volume] in Serum or Plasma 94 U/L 38 - 126 [facility] Aspartate aminotransferase [Enzymatic activity/volume] in Serum or Plasma 11 U/L 5 - 40 [facility] Alanine aminotransferase [Enzymatic activity/volume] in Seru m or Plasma 10 U/L 7 - 56 [facility] Anion gap 3 in Serum or Plasma 13.0 mmol/L 8.0 - 16.0 [facility] AGE 70 yrs [facility] NON-AA GFR >60 mL/min [facility] ital AFR AMER GFR >60 mL/min [facility] spital Male GFR In terprentation 20-49 [...] >32 mL/min Normal ID Date Data Source [id number] 11/30/2020 09:10:00 AM [facility] Name Value Range Interpretation Code Description Data Aydee rce(s) Supporting Document(s) Magnesium [Mass/volume] in Serum or Plasma 1.4 MG/DL 1.7 - 2.2 L [facility] ID Date Data Source [id number] 11/30/2020 09:10:00 AM [facility] Name Value Range Interpretation Code Description Data Aydee rce(s) Supporting Document(s) Iron [Mass/volume] in Serum or Plasma 30 UG/DL 42 - 135 L [facility] Iron binding capacity.unsaturated [Mass/volume] in Serum or Plasma 296 UG/DL 112 - 347 [facility] Iron binding capacity [Mass/volume] in Serum or Plasma 326 ug/dL 250 - 450 [facility] Iron saturation [Mass Fraction] in Serum or Plasma 9 % [facility] ID Date Data Source [id number] 11/30/2020 09:10:00 AM [facility] Name Value Range Interpretation Code Description Data Aydee rce(s) Supporting Document(s) CVE PANEL [facility] LIPID PANEL Cholesterol [Mass/volume] in Serum or Plasma 112 MG/DL 131 - 200 L [facility] Deprecated Triglyceride [Mass/volume] in Serum or Plasma 79 MG/DL 3 5 - 160 [facility] HDL 46 MG/DL 29 - 86 [facility] Cholesterol in LDL [Mass/volume] in Serum or Plasma by Direc t assay 54 mg/dL 65 - 175 L [facility] Cholesterol.total/Cholesterol in HDL [Mass Ratio] in Serum o r Plasma 2.4 3.4 - 4.9 L [facility] LDL/HDL 1.17 1.00 - 3.55 [facility] CVE RISK CHOL/HDL LDL/HDLMEN: 1/2 AVERAGE 3.43 1.00 AVERAGE 4.97 3.55 2X AVERAGE 9.55 6.25 3X AVERAGE 23.99 7.99WOMEN: 1/2 AVERAGE 3.27 1.47 AVERAGE 4.44 3.22 2X AVERAGE 7.05 5.03 3X AVERAGE 11.04 6.14 ID Date Data Source [id number] 11/30/2020 09:04:00 AM [facility] Value Range Interpretation Code Description Data Aydee rce(s) Supporting Document(s) Thyroxine (T4) free index in Serum or Plasma by calculation 1.15 NG/DL 0.93 - 1.70 [facility] ID Date Data Source [id number] 11/30/2020 09:04:00 AM [facility] Value Range Interpretation Code Description Data Aydee rce(s) Supporting Document(s) Ferritin [Mass/volume] in Serum or Plasma 96.0 ng/mL 5.0 - 244 [facility] ID Date Data Source [id number] 11/30/2020 09:04:00 AM [facility] Value Range Interpretation Code Description Data Aydee rce(s) Supporting Document(s) Thyrotropin [Units/volume] in Serum or Plasma by Detec tion limit <= 0.05 mIU/L 4.35 uIU/mL 0.47 - 5.01 [facility] ID Date Data Source [id number] 11/30/2020 08:53:00 AM EST [facility] Name Value Range Interpretation Code Description Data Aydee rce(s) Supporting Document(s) Hemoglobin A1c/Hemoglobin.total in Blood 8.7 % 4.4 - 6.1 H [facility] {A1]{HB] ID Date Data Source [id number] 11/30/2020 08:22:00 AM [facility] Name Value Range Interpretation Code Description Data Aydee rce(s) Supporting Document(s) CBC NO DIFF [facility] COMPLETE BLOOD COUNT Leukocytes [#/volume] in Blood by Automated count 3.8 10^3/uL 4.2 - 1 1.0 L [facility] Erythrocytes [#/volume] in Blood by Automated count 3.30 10^6/uL 4. 50 - 6.30 L [facility] Hemoglobin [Mass/volume] in Blood 8.2 g/dL 14.0 - 16.0 L [facility] Hematocrit [Volume Fraction] of Blood by Automated count 26.1 % 4 1.0 - 51.0 L [facility] Erythrocyte mean corpuscular volume [Entitic volume] by Auto mated count 79.1 fL 80.0 - 94.0 L [facility] Erythrocyte mean corpuscular hemoglobin [Entitic mass] by Automated count 24.8 pg 27.0 - 34.0 L [facility] Erythrocyte mean corpuscular hemoglobin concentration [Mass/volume] by Automated count 31.4 g/dL 31.0 - 36.0 [facility] Erythrocyte distribution width [Ratio] by Automated count 15.6 % 11.5 - 14.8 H [facility] Platelets [#/volume] in Blood by Automated count 246 10^3/uL 150 - 45 0 [facility] Platelet mean volume [Entitic volume] in Blood by Automated count 9.9 fL 7.4 - 10.4 [facility] ID Date Data Source [id number] 11/30/2020 12:00:00 AM EST [facility] Name Value Range Interpretation Code Description Data Aydee e(s) Supporting Document(s) SARS coronavirus 2 Ag Negative [facility] This lab was ordered by [facility] and rep orted by [facility]. ID Date Data Source [id number] 11/29/2020 12:00:00 PM EST [facility] Name Value Range Interpretation Code Description Data Aydee rce(s) Supporting Document(s) SARS coronavirus 2 RNA Detected [facility] This lab was ordered by [facility] Valentino hopper and reported by [facility]. ID Date Data Source [id number] 12/01/2020 03:13:00 PM EST [facility] Name Value Range Interpretation Code Description Data Aydee rce(s) Supporting Document(s) SARS-CoV-2, TINY Detected Not Detected A [facility] This nucleic acid amplification test was developed and its performancecharacteristics determined by [employer]. Nucleic acidamplification tests include RT-PCR and TMA. This test has not beenFDA cleared or approved. This test has been authorized by FDA underan Emergency Use Authorization (EUA). This test is only authorizedfor the duration of time the declaration that circumstances existjustifying the authorization of the emergency use of in vitrodiagnostic tests for detection of SARS-CoV-2 virus and/or diagnosisof COVID-19 infection under section 564(b)(1) of the Act, 21 U.S.C.360bbb-3(b) (1), unless the authorization is terminated or revokedsooner.When diagnostic testing is negative, the possibility of a falsenegative result should be considered in the context of a patient'srecent exposures and the presence of clinical signs and symptomsconsistent with COVID- 19. An individual without symptoms of COVID-19and who is not shedding SARS-CoV-2 virus would expect to have anegative (not detected) result in this assay. ID Date Data Source [id number] 11/25/2020 05:44:00 AM EST [facility] Name Value Range Interpretation Code Description Data Aydee rce(s) Supporting Document(s) SARS coronavirus 2 RNA [Presence] in Res piratory specimen by TINY with probe detection NEGATIVE [facility] This lab was ordered by [facility] a nd reported by [facility]. ID Date Data Source [id number] 11/08/2020 09:49:00 PM EST [facility] Name Value Range Interpretation Code Description Data Aydee rce(s) Supporting Document(s) SARS coronavirus 2 RNA [Presence] in Res piratory specimen by TINY with probe detection NEGATIVE [facility] This lab was ordered by [facility] a nd reported by [facility]. ID Date Data Source [id number] 10/23/2020 01:52:00 AM EST [facility] Name Value Range Interpretation Code Description Data Aydee rce(s) Supporting Document(s) SARS coronavirus 2 RNA [Presence] in Res piratory specimen by TINY with probe detection [facility] This lab was ordered by [facility] a nd reported by [facility]. ID Date Data Source LIPID PANEL (CARDIAC RISK) 10/19/2020 12:00:00 AM EST eCW1 ( [facility]) Name Value Range Interpretation Code Description Data Aydee rce(s) Supporting Document(s) Cholesterol in HDL [Moles/volume] in Serum or Plasma 48 >40 HDL CHOLESTEROL eCW1 ([facility]) Triglyceride [Mass/volume] in Serum or Plasma by calculation 189 <150 TRIGLYCERIDES LEVEL eCW1 ([facility]) Cholesterol [Moles/volume] in Serum or Plasma 134 <200 CHOLESTEROL LEVEL eCW1 ([facility]) Cholesterol in LDL [Mass/volume] in Serum or Plasma by calculation 48 <100 LDL CHOLESTEROL eCW1 ([facility]) 86 NON-HDL-C eCW1 ([facility]) 2.791 <5 CHOLESTEROL RISK RATIO eCW1 ([facility]) ID Date Data Source [id number] 10/19/2020 12:00:00 AM EST eCW1 ([facility]) Name Value Range Interpretation Code Description Data Aydee rce(s) Supporting Document(s) Hemoglobin A1c/Hemoglobin.total in Blood 9.0 HEMOGLOBIN A1c eCW1 ([facility]) ID Date Data Source FREE T4 & TSH PANEL 10/19/2020 12:00:00 AM EST eCW1 ([facility]) Name Value Range Interpretation Code Description Data Aydee rce(s) Supporting Document(s) 1.32 0.76-1.46 FREE T4 eCW1 ([facility]) 3.410 0.358-3.740 THYROID STIMULATING HORM ONE eCW1 ([facility]) ID Date Data Source Comprehensive Metabolic Profile (CMP) 10/19/2020 12:00:00 AM EST eCW1 ([facility]) Name Value Range Interpretation Code Description Data Aydee rce(s) Supporting Document(s) 1.30 0.70-1.30 CREATININE FOR GFR eCW1 ([facility]) 127 136-145 SODIUM LEVEL eCW1 ([facility]) 58.1 >42 GLOMERULAR FILTRATION RATE eCW 1 ([facility]) 558 70-100 GLUCOSE, FASTING eCW1 ([facility]) 21 7-18 BLOOD UREA NITROGEN eCW1 ([facility]) 21 21-32 CARBON DIOXIDE LEVEL eCW1 ([facility]) 10.0 8.8-10.2 CALCIUM LEVEL eCW1 ([facility]) 5.0 3.5-5.1 POTASSIUM SERUM eCW1 ([facility]placed by [facility]) 90 98-107 CHLORIDE LEVEL eCW1 ([facility]) 19 12-78 ALT/SGPT eCW1 ([facility]) 8 7-37 AST/SGOT eCW1 ([facility]) 159 45-117 ALKALINE PHOSPHATASE eCW1 ([facility]) 0.6 0.2-1.0 BILIRUBIN,TOTAL eCW1 (Replaced by [facility]) 3.4 3.2-5.2 ALBUMIN eCW1 ([facility]) 0.7 ALBUMIN/GLOBULIN RATIO eCW1 ([facility]) 8.1 6.4-8.2 TOTAL PROTEIN eCW1 ([facility]) ID Date Data Source CBC - Complete Blood Count 10/19/2020 12:00:00 AM EST eCW1 ( [facility]) Name Value Range Interpretation Code Description Data Aydee rce(s) Supporting Document(s) 7.6 4.0-10.0 eCW1 ([facility]) 11.6 13.5-17.5 eCW1 ([facility]) 37.2 42.0-52.0 eCW1 ([facility]) 4.56 4.30-6.10 eCW1 ([facility]) 25.4 27.0-33.0 eCW1 ([facility]) 31.2 32.0-36.5 eCW1 ([facility]) 15.9 11.5-14.5 eCW1 ([facility]) 81.6 80.0-96.0 eCW1 ([facility]) 419 150-450 eCW1 ([facility]) ID Date Data Source [id number] 10/06/2020 08:00:00 AM EST [facility] Name Value Range Interpretation Code Description Data Aydee rce(s) Supporting Document(s) SARS coronavirus 2 RNA [facility] This lab was ordered by [facility] and reported by [facility]. ID Date Data Source [id number] 09/29/2020 10:00:00 AM EST [facility] Name Value Range Interpretation Code Description Data Aydee rce(s) Supporting Document(s) SARS coronavirus 2 RNA [facility] This lab was ordered by [facility] and reported by [facility]. ID Date Data Source [id number] 09/22/2020 09:30:00 AM EST [facility] Name Value Range Interpretation Code Description Data Aydee rce(s) Supporting Document(s) SARS coronavirus 2 RNA [facility] This lab was ordered by [facility] and reported by [facility]. ID Date Data Source [id number] 09/15/2020 09:00:00 AM EST [facility] Name Value Range Interpretation Code Description Data Aydee rce(s) Supporting Document(s) SARS coronavirus 2 RNA [facility] This lab was ordered by [facility] and reported by [facility]. ID Date Data Source [id number] 08/20/2020 01:42:00 PM EDT [facility] ([facility]) Name Value Range Interpretation Code Description Data Aydee rce(s) Supporting Document(s) Hemoglobin A1c/Hemoglobin.total in Blood 12.0 [facility] ([facility]) Glucose [Mass/volume] in Serum or Plasma 185 [facility] ([facility]) ID Date Data Source [id number] 07/08/2020 12:27:00 PM EDT [facility] ([facility]) Name Value Range Interpretation Code Description Data Aydee rce(s) Supporting Document(s) Thyroid Stimulating Hormone 2.470 ME DENT ([facility]) Free T4 1.16 [facility] ([facility]) ID Date Data Source [id number] 07/06/2020 12:21:00 PM EDT [facility] ([facility]) Name Value Range Interpretation Code Description Data Aydee rce(s) Supporting Document(s) Uric Acid 3.4 2.7-8.4 [facility] ([facility]) Magnesium Level 1.66 [facility] ([facility]) ID Date Data Source [id number] 07/06/2020 12:21:00 PM EDT [facility] ([facility]) Name Value Range Interpretation Code Description Data Aydee rce(s) Supporting Document(s) White Blood Count 10.0 4.3-10.9 [facility] ([facility]) Red Blood Count 4.60 4.70-6.20 [facility] ([facility]) Hematocrit 40.5 39.0-50.0 [facility] ([facility]) Platelets 378 130-400 [facility] ([facility]) Hemoglobin 13.5 13.0-17.0 [facility] ([facility]) ID Date Data Source [id number] 07/06/2020 12:21:00 PM EDT [facility] ([facility]) Name Value Range Interpretation Code Description Data Aydee rce(s) Supporting Document(s) Glucose 464 70-100 [facility] ([facility]) Blood Urea Nitrogen 16.2 5-21 [facility] ([facility]) Creatinine 1.1 0.6-1.5 [facility] ([facility]) Glomerular filtration rate/1.73 sq M.pre dicted [Volume Rate/Area] in Serum or Plasma by Creatinine-based formula (MDRD) 66 [facility] ([facility]) Sodium 132.7 136-146 [facility] Carbon Dioxide 29.1 20-32 [facility] ([facility]) Potassium 4.39 3.5-5.3 [facility] ([facility] Chloride 90.4 98-110 [facility] Phosphorus 3.7 [facility] ([facility]) Calcium 8.9 8.4-10.4 [facility] ([facility] Albumin 3.8 3.5-4.7 [facility] ([facility] ID Date Data Source [id number] 06/10/2020 09:48:00 AM EDT [facility] [address] [place] [address] PHONE: [phone] FAX: [phone] Name .................. : LUCITA FLOR Acct Number.................. : [id number] ROOM. ................. : TR-1A MR Number ................... : [id number] Stay type ............. : E/R Discharge Date......... ... : 06/09/20 Admit Date ......... : 06/09/20 Admit Phys .................... : JOHN TOMAS Date of ....... : 1950 Family Phys ................... : JENNIFEROverture NetworksSAMSON Phone .................. : [phone] Age ................................ : 70 Film# .................. .:[id number] Sex ................................. : M Unsigned transcriptions are preliminary reports and do not represent a medical or legal document CHEST PORTABLE [id number] COMPLETE:06/09/20 14:11 ARS [id number] Reason(s): weakness, Hx of CHF PORTABLE CHEST X-RAY: INDICATION: Weakness. FINDINGS: The cardiac and mediastinal silhouettes appear normal and the lungs are clear. The bones and soft tissues are normal. The upper abdomen is unremarkable. IMPRESSION: No acute disease identifiable. Electronically Reviewed and Signed By Jaspreet Milton MD , 06/10/20 09:48, BEE Transcribe Initials: BALDO , Transcribe Date: 06/09/20 22:04, Dictation Date: Copy for: EMERGENCY DEPT via modem Copy for: 710 MED REC DISCHARGED Page 1 of 1 Name Value Range Interpretation Code Description Data Aydee rce(s) Supporting Document(s) ID Date Data Source [id number] 06/09/2020 08:52:00 PM EDT [address] [place] [address] RESPIRATORY CARE REPORT ==== ---------NAME------- NUMBER SEX AGE ADMIT DISC. XRAY# F/C ERIC FLOR [id number] M 70 06/09/20 06/09/20 [id number] MB4 E/R DATE OF : 1950 M/R# [id number] #: [id number] TR-1A LOCATION: EMERGENCY DEPT EKG [id number] COMPLE TE:06/09/20 14:07 EWW [id number] PHYSICIAN: JOHN TOMAS Name Value Range Interpretation Code Description Data Aydee rce(s) Supporting Document(s) ID Date Data Source [id number] 06/09/2020 01:20:00 PM EDT [facility] 1 OrderSheet [facility] Emergency Department [address] [place] [address] Phone #: ext- [phone] 06/09/2020 13:03 Patient: CHACHO RING Sex: M : 1950 Age: 70yWEIGHT:72.5 kg (S) HEIGHT:74 inches (S) BMI:20.5ALLERGIES: No Known Drug AllergyCHIEF COMPLAINT: glucoseDIAGNOSIS: HypoglycemiaLAB ORDERSOrder Description Priority Entered Acknowledged InitialedCBC w Diff STAT 13:30 06/09/2020 13:30 Lydia Pedroza RN, M.D.;CMP STAT 13:30 06/09/2020 13:30 Lydia Pedroza RN, M.D.;Lipase STAT 13:30 06/09/2020 13:31 Lydia Pedroza RN, M.D.;PT/PTT STAT 13:30 06/09/2020 13:31 Lydia Pedroza RN, M.D.;Troponin-T STAT 13:30 06/09/2020 13:31 Lydia Pedroza RN, M.D.;BNP STAT 13:31 06/09/2020 13:55 Lydia Pedroza RN, M.D.;DIAGNOSTIC STUDY ORDERSOrder Description Priority Entered Acknowledged InitialedChest Portable 1 STAT 13:31 06/09/2020 13:55 Lydia Rowell RN(Oxygen?(No)) Alicia; Reason for Study: weakness, Hx of CHFMEDICATION/IV/DRIP/FLUID ORDERSOrder Description Priority Entered Acknowledged UyuwkjcpdV26W IVP 50 mL 13:30 06/09/2020 13:55 Lydia Pedroza RN, M.D.; 2 OrderSheet [facility] Emergency Department [address] [place] [address] Phone #: ext- [phone] 06/09/2020 13:03 Patient: CHACHO RING Sex: M : 1950 Age: 73bG1OQ IV : 100 13:30 06/09/2020 13:56 DorismL/hr Lydia Otero RN, M.D.;GENERAL ORDERSOrder Description Priority Entered Acknowledged InitialedDiet: (Regular Diet) 13:21 06/09/2020 13:23 EastmanLydia Hoffman peoplesoft administratorCharlie M.D.; [id number] Pressure 13:30 06/09/2020 13:30 Lesleeonitor Lydia Otero RN, M.D.;Hotel Or Motel Manager 13:30 06/09/2020 13:30 Chula(continuous) Lydia Otero RN, M.D.;EKG 13:30 06/09/2020 13:31 Lydia Pedroza RN, M.D.;NPO 13:30 06/09/2020 13:30 Lydia Pedroza RN, M.D.;Obtain Old EKG 13:30 06/09/2020 13:30 Lydia Pedroza RN, M.D.;Saline Lock 13:30 06/09/2020 13:30 Lydia Pedroza RN, M.D.;Vitals 13:30 06/09/2020 13:30 Lydia Pedroza RN, M.D.;Accucheck (q 1 hr) 13:31 06/09/2020 13:55 Lydia Pedroza RN, M.D.;[El ectronically signed by Chula Harvey RN (18:13 06/09/2020)][Electronically signed by Lydia Otero M.D. (18:16 06/09/2020)][Electronically locked by Chula Harvey RN (18:13 06/09/2020)] Name Value Range Interpretation Code Description Data Aydee rce(s) Supporting Document(s) ID Date Data Source [id number] 06/09/2020 01:20:00 PM EDT [facility] 1 Medication Reconciliation Report [facility] Emergency Department [address] [place] [address] Phone #: ext- [phone] 06/09/2020 13:03 Patient: [...] Multi-Vitamins Oral, daily 2 Medication Reconciliation Report [facility] Emergency Department [address] [place] [address] Phone #: ext- [phone] 06/09/2020 13:03 Patient: [...] rce(s) Supporting Document(s) ID Date Data Source [id number] 06/09/2020 01:20:00 PM EDT [facility] 1 Medication Administration Record [facility] Emergency Department [address] [place] [address] Phone #: ext- [phone] 06/09/2020 13:03 Patient: CHACHO RING Sex: M : 1950 Age: 70yWeight: 72.5 kgHeight/Length: 74 inBMI: 20.5ALLERGIES: No Known Drug Allergy Date/Time Medication Administered Medication OrderedGiven D50W [IVP] D50W IVP 50 mL13:44 06/09/2020 Dose: 25 gm IVBeth Harvey RN Site: #1 left wristStart D5NS IV D5NS IV : 100 mL/hr13:47 06/09/2020 Dose: IV FluidsChula Harvey RN Rate: 100 mL/hr over 10 hour(s)---- Dispensed: 1000 mL bagStop Site: #1 left wrist17:20 06/09/2020Chula Harvey RN Name Value Range Interpretation Code Description Data Aydee rce(s) Supporting Document(s) ID Date Data Source [id number] 06/09/2020 01:20:00 PM EDT [facility] 1 General Instructions [facility] Emergency Department [address] [place] [address] Phone #: ext- [phone] 06/09/2020 13:03 Patient: CHACHO RING Sex: M : 1950 Age: 70yHypoglycemia without coma- associated with type 1 diabetes and use of insulin.INSTRUCTIONS (PLEASE EAT 3 MEALS PER DAY AND SNACK BETWEEN MEALS; PLEASE SEE DR. CALDWELL, CORPORATE TUTOR, IN NEXT FEW DAYS TO HAVE YOUR INSULIN ADJUSTED NEEDED).Warnings: Further evaluation is necessary (Prop Sawyer). It is very important to follow up with [facility] provider.GENERAL WARNINGS: Return or contact your physician [...] Subcutaneous : 20 daily. 2 General Instructions [facility] Emergency Department [address] [place] [address] Phone #: [phone] rxc- [phone] 06/09/2020 13:03 Patient: CHACHO RING Sex: M : 1950 Age: 70y Turmeric [...] including: Aspirin Haloperidol Propoxyphene Chlorpromazine Propranolol Disopyramide JOEL inhibitors Fluoroquinolone antibioticsIf you suspect that caffeine [...] you are taking a 3 General Instructions [facility] Emergency Department [address] [place] [address] Phone #: ext- [phone] 06/09/2020 13:03 Patient: [...] soon as possible to 4 General Instructions [facility] Emergency Department [address] [place] [address] Phone #: ext- [phone] 06/09/2020 13:03 Patient: [...] injection.For more information about diabetes, contact the [place] [employer], atwww.diabetes.org.When to seek medical adviceCall your healthcare provider right away if any of these symptoms of low blood sugar occur. Fatigue Headache Shakes Excess sweating Hunger Feeling anxious or restless Vision changes Drowsiness Weakness 5 General Instructions [facility] Emergency Department [address] [place] [address] Phone #: rfl- [phone] 06/09/2020 13:03 Patient: CHACHO RING Sex: M : 1950 Age: 70y Confusion Personality changes Seizure or loss of consciousness [id number] [employer] [place] [address]. All rights reserved. This information is not intended as asubstitute for professional medical care. Always follow your healthcare professional's instructions. You have been given the following additional information: Diabetic Insulin Reaction(Electronically signed by Lydia Otero M.D. 06/09/2020 18:16) Name Value Range Interpretation Code Description Data Aydee rce(s) Supporting Document(s) ID Date Data Source [id number] 06/09/2020 01:20:00 PM EDT [facility] 1 Clinical Report - Nurses [facility] Emergency Department [address] [place] [address] Phone #: ext- [phone] 06/09/2020 13:03 Patient: [...] appt; Pt was conscious butunresponsive according to [employer] when he brought his vehicle in for a check light; When emsarrived his FS was 45, oral glucose given and went up to 113. 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 Sepsis Screen negative. No suspected or confirmed signs ofinfection present. (13:16 06/09/2020).SKIN INTEGRITY ASSESSMENT: Skin breakdown noted on the left heel. --13:18 06/09/20 Lilli Spaulding R.N.13:04 06/09/20. BP: 179/95. MAP: 123. HR: 90. RR: 18. O2 saturation: 98% on room air. Temp: 98.3 F(oral). Pain level now: 0/10. --13:18 06/09/20 Lilli Spaulding R.N.Weight: 72.5 kg stated. Height/Length: 74 inches Per Patient. BMI: 20.5. --13:03 06/09/20 Lilli Spaulding R.N.MedicationsMetoprolol Succinate ER Oral (Tablet Extended Release 24 Hour 50 mg) 1 tablet, daily. --13:08 06/09/20Lilli Spaulding R.N. Pravastatin Sodium Oral 20 mg, [...] Spaulding R.N. 2 Clinical Report - Nurses [facility] Emergency Department [address] [place] [address] Phone #: ext- [phone] 06/09/2020 13:03 Patient: [...] "Do you 3 Clinical Report - Nurses [facility] Emergency Department [address] [place] [address] Phone #: ext- [phone] 06/09/2020 13:03 Patient: CHACHO RING Sex: M [...] performed. Risk factors identified include impaired nutrition. --13:06/09/20 Lilli Spaulding R.N. Interventions Identification band on patient. --13:06/09/20 Lilli Spaulding R.N.PHYSICAL ODAXJEKQMN12:06/09/20. To room via stretcher.GENERAL / NEURO / PSYCH: Alert. Oriented X 4. Appears in no acute distress.HEENT: Pupils equal, round and reactive to light. No facial asymmetry noted. Mucous membranes arepink.RESPIRATORY: Respirations not labored. Chest nontender.GI / : Abdomen soft and nontender.EXTREMITIES: ( left knee brace intact).SKIN: Skin is warm and dry. --13:30 06/09/20 Chula Harvey RN.NURSING PROGRESS NOTES13:06/09/20. Two patient identifiers checked. Call light placed in reach. Side rails up x 2. Bedplaced in lowest position. Brakes of bed on. Patient ready for evaluation- ED physician notified. --13: Chula Harvey RN 13:06/09/2020 Site #1 started prior to arrival by EMS via IV in the left wrist with an 22g angiocath, with aseptic technique and good blood return. --13:06/09/20 Lilli Spaulding R.N. Finger stick glucose: 56; [...] including reason 4 Clinical Report - Nurses [facility] Emergency Department [address] [place] [address] Phone #: ext- [phone] 06/09/2020 13:03 Patient: [...] or swelling. IV flushed thoroughly.--18:13 06/09/20 Chula Harevy RN.DISPOSITION / DISCHARGE 5 Clinical Report - Nurses [facility] Emergency Department [address] [place] [address] Phone #: ext- [phone] 06/09/2020 13:03 Patient: CHACHO RING Sex: M : 1950 Age: 70y 17:25 06/09/20. BP: 151/94. MAP: 113. HR: 77. RR: 17. O2 saturation: 97%. Temp: 98 F. Pain level now: 0/10. --18:12 06/09/20 Chula Harvey RN 17:25 06/09/2020 Site #1 removed upon discharge. Catheter intact. Manual pressure and bandage applied. --18:12 06/09/20 Chula Harvey RN 17:30 06/09/20. Condition at [facility]: improved and stable. No learning barriers present. Discharge instructions provided and reviewed with the patient. Patient verbalized understanding. Written instructions provided in Greek. ( Follow up with Dr Deborah Caldwell). The patient was discharged home and accompanied by taxi. He left ambulatory and via taxi. Patient driving. --18:12 06/09/20 Chula Harvey RN.Locked/Released at 06/09/2020 18:13 by Chula Harvey RN Name Value Range Interpretation Code Description Data Aydee rce(s) Supporting Document(s) ID Date Data Source [id number] 06/09/2020 01:20:00 PM EDT [facility] 1 Clinical Report - Physicians/Mid Levels [facility] Emergency Department [address] [place] [address] Phone #: ext- [phone] 06/09/2020 13:03 Patient: CHACHO RING Sex: M : 1950 Age: 70y Time [...] has known recurrent hypoglycemia incidents, was at [facility] ER on 06-06 for same; pt took his Tresiba and [...] Medications: 2 Clinical Report - Physicians/Mid Levels [facility] Emergency Department [address] [place] [address] Phone #: ext- [phone] 06/09/2020 13:03 Patient: CHACHO RING Sex: M [...] mass. 3 Clinical Report - Physicians/Mid Levels [facility] Emergency Department [address] [place] [address] Phone #: ext- [phone] 06/09/2020 13:03 Patient: CHACHO RING Sex: M [...] making process. BNP: (FELI: 06/09/2020 13:47) ( [facility] 06/09/2020 14:36) Final results Test Result Flag Units (Reference) BNP 1631 H PG/ML (0 - 125) Chest Portable 1 View: (FELI: 06/09/2020 13:31) ( [facility] 06/09/2020 14:12) In Progress CHEST PORTABLE Reason(s): weakness, Hx of CHF TRANSPORTATION: P IV? O2? Oxygen?(No) Room: ED CBC w Diff: (FELI: 06/09/2020 14:00) ( [facility] 06/09/2020 14:17) Final results Test Result Flag [...] 0.00) 4 Clinical Report - Physicians/Mid Levels [facility] Emergency Department [address] [place] [address] Phone #: ext- [phone] 06/09/2020 13:03 Patient: CHACHO RING Sex: M [...] mL/min Normal Lipase: (FELI: 06/09/2020 13:47) ( MsgRcvd 06/09/2020 14:37) Final results Test Result Flag Units (Reference) LIPASE 7 L U/L (13 - 60) Troponin-T: (FELI: 06/09/2020 13:47) ( [facility] 06/09/2020 14:28) Final results Test Result Flag Units (Reference) TROPONIN T <0.01 NG/ML (0.00 - 0.10) TROPONIN T0.1 ng/ml Recommended as the clinical threshold value forTropohiral T. EKG: (FELI: 06/09/2020 13:30) ( [facility] 06/09/2020 14:10) In Progress . Bedside Tests: Glucose: mild hypoglycemia - 56 (performed at bedside).PROGRESS AND PROCEDURESCourse of Care: 15:12 06/09/20. workup all in and reviewed; glucose up; BNP elevated but pt known wCHF, CXR clear; pt doing much better, ate whole tray and got 50 ml D50% soln. 5 Clinical Report - Physicians/Mid Levels [facility] Emergency Department [address] [place] [address] Phone #: ext- [phone] 06/09/2020 13:03 Patient: CHACHO RING Sex: M [...] SNACK BETWEEN MEALS; PLEASE SEE DR. CALDWELL, CORPORATE TUTOR, IN NEXT FEW DAYS TO HAVE YOUR INSULIN ADJUSTED NEEDED). Warnings: Further evaluation is necessary (Prop Sawyer). It is very important to follow up [...] daily. 6 Clinical Report - Physicians/Mid Levels [facility] Emergency Department [address] [place] [address] Phone #: ext- [phone] 06/09/2020 13:03 Patient: [...] Agrees to plan of care.(Electronically signed by Lydia Otero M.D. 06/09/2020 18:16) Name Value Range Interpretation Code Description [facility] Supporting Document(s) ID Date Data Source [id number] 06/09/2020 02:17:00 PM EDT [facility] Name Value Range Interpretation Code Description Data [facility] Supporting Document(s) CBC W/AUTOMATED DIFF [facility] COMPLETE BLOOD COUNT Leukocytes [#/volume] in Blood by Automated count 9.0 10^3/uL 4.2 - 1 1.0 [facility] Erythrocytes [#/volume] in Blood by Automated count 5.05 10^6/uL 4. 50 - 6.30 [facility] Hemoglobin [Mass/volume] in Blood 14.5 g/dL 14.0 - 16.0 [facility] Hematocrit [Volume Fraction] of Blood by Automated count 44.5 % 4 1.0 - 51.0 [facility] Erythrocyte mean corpuscular volume [Entitic volume] by Auto mated count 88.1 fL 80.0 - 94.0 [facility] Erythrocyte mean corpuscular hemoglobin [Entitic mass] by Automated count 28.7 pg 27.0 - 34.0 [facility] Erythrocyte mean corpuscular hemoglobin concentration [Mass/volume] by Automated count 32.6 g/dL 31.0 - 36.0 [facility] Erythrocyte distribution width [Ratio] by Automated count 13.9 % 11.5 - 14.8 [facility] Platelets [#/volume] in Blood by Automated count 205 10^3/uL 150 - 45 0 [facility] Platelet mean volume [Entitic volume] in Blood by Automated count 9.6 fL 7.4 - 10.4 [facility] Neutrophils/100 leukocytes in Blood by Automated count 65.0 % 37. 0 - 80.0 [facility] Lymphocytes/100 leukocytes in Blood by Manual count 24.9 % 25.0 - 40.0 L [facility] Monocytes/100 leukocytes in Blood by Automated count 7.8 % 3.0 - 8.0 [facility] Eosinophils/100 leukocytes in Blood by Automated count 1.3 % 0.0 - 7.0 [facility] Basophils/100 leukocytes in Blood by Automated count 0.6 % 0.0 - 2.0 [facility] %IG 0.4 % 0.0 - 0.0 [facility]NRBC 0.0 % 0.0 - 0.0 [facility] al Neutrophils [#/volume] in Blood by Automated count 5.86 10^3/uL 2.00 - 6.90 [facility] Lymphocytes [#/volume] in Blood by Automated count 2.24 10^3/uL 0.60 - 3.40 [facility] Monocytes [#/volume] in Blood by Automated count 0.70 10^3/uL 0.00 - 0.90 [facility] Eosinophils [#/volume] in Blood by Automated count 0.12 10^3/uL 0.00 - 0.70 [facility] Basophils [#/volume] in Blood by Automated count 0.05 10^3/uL 0.00 - 0.20 [facility] #IG 0.04 10^3/uL 0.00 - 0.10 [facility] #NRBC 0.00 10^3/uL 0.00 - 0.00 [facility] MANUAL DIFF NOT INDICATED [facility] RBC MORPH NOT INDICATED [facility] spital ID Date Data Source [id number] 06/09/2020 02:37:00 PM EDT [facility] Name Value Range Interpretation Code Description Data Aydee rce(s) Supporting Document(s) Lipase [Enzymatic activity/volume] in Serum or Plasma 7 U/L 13 - 60 L [facility] ID Date Data Source [id number] 06/09/2020 02:36:00 PM EDT [facility] Name Value Range Interpretation Code Description Data Aydee rce(s) Supporting Document(s) COMPREHENSIVE METABOLIC PANEL [facility] COMPREHENSIVE METABOLIC PANEL Sodium [Moles/volume] in Serum or Plasma 137 mEq/L 134 - 153 [facility] Potassium [Moles/volume] in Serum or Plasma 4.3 mEq/L 3.6 - 5.0 [facility] Chloride [Moles/volume] in Serum or Plasma 100 mEq/L 98 - 107 [facility] Carbon dioxide, total [Moles/volume] in Serum or Plasma 23 MEQ/L 22 - 30 [facility] Glucose [Mass/volume] in Serum or Plasma 189 MG/DL 65 - 110 H [facility] BUN 12 MG/DL 7 - 21 [facility] al Creatinine [Mass/volume] in Serum or Plasma 0.7 MG/DL 0.7 - 1.5 [facility] BUN/CREAT 17 8 - 27 [facility] Protein [Mass/volume] in Serum or Plasma 7.0 G/DL 6.3 - 8.2 [facility] Albumin [Mass/volume] in Serum or Plasma 4.1 G/DL 3.9 - 5.0 [facility] Globulin [Mass/volume] in Serum by calculation 2.9 GM/DL 2.4 - 3.2 [facility] A/G RATIO 1.4 0.8 - 2.0 [facility] Calcium [Mass/volume] in Serum or Plasma 9.6 MG/DL 8.4 - 10.2 [facility] Bilirubin.total [Mass/volume] in Serum or Plasma <0.7 MG/DL 0.2 - 1.3 [facility] Alkaline phosphatase [Enzymatic activity/volume] in Serum or Plasma 110 U/L 38 - 126 [facility] Aspartate aminotransferase [Enzymatic activity/volume] in Serum or Plasma 35 U/L 5 - 40 [facility] Alanine aminotransferase [Enzymatic activity/volume] in Seru m or Plasma 21 U/L 7 - 56 [facility] Anion gap 3 in Serum or Plasma 14.0 mmol/L 8.0 - 16.0 [facility] AGE 70 yrs [facility] NON-AA GFR >60 mL/min [facility] ital AFR AMER GFR >60 mL/min [facility] sp[facility] Male GFR In terprentation 20-49 [...] >32 mL/min Normal ID Date Data Source [id number] 06/09/2020 02:34:00 PM EDT [facility] Name Value Range Interpretation Code Description Data Aydee rce(s) Supporting Document(s) BNP 1631 PG/ML 0 - 125 [facility] ID Date Data Source [id number] 06/09/2020 02:28:00 PM EDT [facility] Name Value Range Interpretation Code Description Data Aydee rce(s) Supporting Document(s) TROPONIN T <0.01 NG/ML 0.00 - 0.10 [facility] ospital TROPONIN T0.1 ng/ml Recommended as the c linical threshold value forTroponin T. ID Date Data Source [id number] 06/01/2020 02:15:00 PM EDT [facility] ([facility] Name Value Range Interpretation Code Description Data Aydee rce(s) Supporting Document(s) Wound Culture Laboratory test result [...] <=0.12 S</content>
<content></content> ID Date Data Source [id number] 05/18/2020 11:46:00 AM EDT [facility]) Name Value Range Interpretation Code Description Data Aydee rce(s) Supporting Document(s) Glucose [Mass/volume] in Serum or Plasma 145 [facility] ([facility]) Hemoglobin A1c/Hemoglobin.total in Blood 8.9 [facility]) ID Date Data Source [id number] 03/26/2020 10:15:00 AM EDT [facility] Name Value Range Interpretation Code Description Data Aydee rce(s) Supporting Document(s) SARS CORONAVIRUS 2 RNA [facility] This lab was ordered by [facility] and reported by [facility]. ID Date Data Source [id number] 03/26/2020 10:15:00 AM EDT [facility] ([facility]) Name Value Range Interpretation Code Description Data Aydee rce(s) Supporting Document(s) Laboratory test finding (navigational concept) Laboratory test result [facility]) Testing was performed using the conrad(R) SARS-CoV-2 test. This test was developed and its performance characteristics determined by [facility]. This test has not been FDA cleared [...] detected) result in this assay. Performed at: [address] [id number] [employer] [place] [place]: Joycelyn Edge MD, Phone: [phone] Not Detected ID Date Data Source [id number] 03/26/2020 10:02:00 AM EDT [facility] ([facility]) Name Value Range Interpretation Code Description Data Aydee rce(s) Supporting Document(s) Platelets [#/volume] in Blood by Automated count 175 10 150-450 [facility] ([facility]) ID Date Data Source [id number] 03/26/2020 10:02:00 AM EDT [facility] ([facility]) Name Value Range Interpretation Code Description Data Aydee rce(s) Supporting Document(s) Prothrombin Time 15.6 s 11.8-14.0 [facility] ([facility]) Partial Thromboplastin Time 35.6 s 25.0-38.4 [facility] ([facility]) Inr 1.27 [facility] ([facility]) THERAPUTIC HUMAN INR VALUES INDICATIONS NORMAL RANGES PROPHYLAXIS/TREATMENT OF: VENOUS THROMBOSIS 2.0-3.0 PULMONARY EMBOLISM 2.0-3.0 PREVENTION OF SYSTEMIC EMBOLISM FROM: TISSUE HEART VALVES 2.0-3.0 ACUTE MYOCARDIAL INFARCTION 2.0-3.0 VALVULAR HEART DISEASE 2.0-3.0 ATRIAL FIBRILLATION 2.0-3.0 MECHANICAL VALVES(HIGH RISK) 2.5-3.5 RECURRENT MYOCARDIAL INFARCTION 2.5-3.5 ID Date Data Source [id number] 01/01/2020 09:10:00 AM EDT [facility] ([facility]) Name Value Range Interpretation Code Description Data Aydee rce(s) Supporting Document(s) Magnesium Level 1.57 [facility] ([facility]) ID Date Data Source [id number] 01/01/2020 09:10:00 AM EDT [facility] ([facility]) Name Value Range Interpretation Code Description Data Aydee rce(s) Supporting Document(s) White Blood Count 7.9 5.0-10.0 [facility] ([facility]) Platelets 317 172-450 [facility] ([facility]) Red Blood Count 4.91 4.70-6.10 [facility] ([facility]) Hemoglobin 14.9 14.0-18.0 [facility] ([facility]) Hematocrit 45.5 42.0-52.0 [facility] ([facility]) ID Date Data Source [id number] 01/01/2020 09:10:00 AM EDT [facility] ([facility]) Name Value Range Interpretation Code Description Data Aydee rce(s) Supporting Document(s) Blood Urea Nitrogen 16.0 7-25 [facility] ([facility]) Glucose 373 70-100 [facility] ([facility]) Creatinine 0.78 0.6-1.4 [facility] ([facility]) Glomerular filtration rate/1.73 sq M.pre dicted [Volume Rate/Area] in Serum or Plasma by Creatinine-based formula (MDRD) 98 [facility] ([facility]) Sodium 134.6 135-145 [facility] ([facility]) Potassium 4.18 3.5-5.3 [facility] ([facility]) Chloride 98.5 98-110 [facility] ([facility]) Carbon Dioxide 29.9 20-32 [facility] ([facility]) Albumin 4.0 3.5-4.7 [facility] ([facility]) Calcium 8.79 8.4-10.4 [facility] ([facility] Phosphorus 2.69 [facility] ([facility]) ID Date Data Source [id number] 12/17/2019 01:39:00 PM EST [facility] ([facility]) Name Value Range Interpretation Code Description Data Aydee rce(s) Supporting Document(s) Prothrombin Time 14.0 s 11.8-14.0 [facility] ([facility]) Partial Thromboplastin Time 34.2 s 25.0-38.4 [facility] ([facility]) Inr 1.11 [facility] ([facility]) THERAPUTIC HUMAN INR VALUES INDICATIONS NORMAL RANGES PROPHYLAXIS/TREATMENT OF: VENOUS THROMBOSIS 2.0-3.0 PULMONARY EMBOLISM 2.0-3.0 PREVENTION OF SYSTEMIC EMBOLISM FROM: TISSUE HEART VALVES 2.0-3.0 ACUTE MYOCARDIAL INFARCTION 2.0-3.0 VALVULAR HEART DISEASE 2.0-3.0 ATRIAL FIBRILLATION 2.0-3.0 MECHANICAL VALVES(HIGH RISK) 2.5-3.5 RECURRENT MYOCARDIAL INFARCTION 2.5-3.5 ID Date Data Source [id number] 12/17/2019 01:39:00 PM EST [facility] ([facility]) Name Value Range Interpretation Code Description Data Aydee rce(s) Supporting Document(s) Platelets [#/volume] in Blood by Automated count 216 10 150-450 [facility] ([facility]) ID Date Data Source [id number] 12/11/2019 01:58:00 PM EST [facility] ([facility]) Name Value Range Interpretation Code Description Data Aydee rce(s) Supporting Document(s) Laboratory test finding (navigational concept) Laboratory test result [facility] ([facility]) ID Date Data Source [id number] 11/04/2019 02:49:00 PM EST [facility] ([facility]) Name Value Range Interpretation Code Description Data Aydee rce(s) Supporting Document(s) Magnesium Level 1.7 [facility] ([facility]) ID Date Data Source [id number] 11/04/2019 02:49:00 PM EST [facility] Name Value Range Interpretation Code Description Data Aydee rce(s) Supporting Document(s) Cholesterol 132 120-200 [facility] ([facility]) HDL 72 40-60 [facility] ([facility]) Triglycerides 71 [facility] ([facility]) Chol/HDL Ratio 1.833 [facility] ([facility]) Cholesterol in LDL [Mass/volume] in Serum or Plasma by calculation 46 [facility] ([facility]) ID Date Data Source [id number] 11/04/2019 02:49:00 PM EST [facility] ([facility]) Name Value Range Interpretation Code Description Data Aydee rce(s) Supporting Document(s) Thyroid Stimulating Hormone 2.160 [facility] ([facility]) ID Date Data Source [id number] 11/04/2019 02:49:00 PM EST [facility] ([facility]) Name Value Range Interpretation Code Description Data Aydee rce(s) Supporting Document(s) Albumin [Mass/volume] in Serum or Plasma 4.1 [facility] ([facility]) Alanine aminotransferase [Enzymatic activity/volume] in Serum or Pl asma 26 [facility] ([facility]) Carbon dioxide, total [Moles/volume] in Serum or Plasma 27 [facility] ([facility]) Calcium [Mass/volume] in Serum or Plasma 9.5 [facility] ([facility]) Chloride [Moles/volume] in Serum or Plasma 103 [facility] ([facility]) Protein [Mass/volume] in Serum or Plasma 7.6 [facility] ([facility]) Alkaline phosphatase [Enzymatic activity/volume] in Serum or Plasma 1 27 [facility] ([facility]) Potassium [Moles/volume] in Serum or Plasma 4.4 [facility] ([facility]) Sodium 139 [facility] ([facility]) Aspartate aminotransferase [Enzymatic activity/volume] in Serum or Plasma 21 [facility] ([facility]) Urea nitrogen [Mass/volume] in Serum or Plasma 14 [facility] ([facility]) Glucose 189 70-100 [facility] ([facility]) Creatinine For GFR 1.03 [facility] ([facility]) ID Date Data Source [id number] 11/04/2019 02:49:00 PM EST [facility] ([facility]) Name Value Range Interpretation Code Description Data Aydee rce(s) Supporting Document(s) Platelets 268 150-450 [facility] ([facility]) Red Blood Count 4.95 4.30-6.10 [facility] ([facility]) White Blood Count 9.0 4.0-10.0 [facility] ([facility]) Hematocrit 43.0 42.0-52.0 [facility] ([facility]) Hemoglobin 13.7 13.5-17.5 [facility] ([facility]) ID Date Data Source MAGNESIUM LEVEL 11/04/2019 12:00:00 AM EST eCW1 ([facility]) Name Value Range Interpretation Code Description Data Aydee rce(s) Supporting Document(s) 1.7 1.8-2.4 MAGNESIUM LEVEL eCW1 (Replaced by [facility]) ID Date Data Source TOTAL IRON BINDING CAPACIT 11/04/2019 12:00:00 AM EST eCW1 ( [facility]) Name Value Range Interpretation Code Description Data Aydee rce(s) Supporting Document(s) 37 65-175 IRON (FE) eCW1 ([facility]) 400 250-450 TOTAL IRON BINDING CAPACI TY eCW1 ([facility]) 9.3 19.7-50.0 PERCENT SATURATION eCW1 ([facility]) ID Date Data Source FERRITIN 11/04/2019 12:00:00 AM EST eCW1 ([facility]) Name Value Range Interpretation Code Description Data Aydee rce(s) Supporting Document(s) 9 26-388 FERRITIN eCW1 ([facility]) ID Date Data Source CBC 11/04/2019 12:00:00 AM EST eCW1 ([facility]) Name Value Range Interpretation Code Description Data Aydee rce(s) Supporting Document(s) 9.0 4.0-10.0 WHITE BLOOD COUNT eCW1 ([facility]) 4.95 4.30-6.10 RED BLOOD COUNT eCW1 (Replaced by [facility]) 13.7 13.5-17.5 HEMOGLOBIN eCW1 ([facility]) 43.0 42.0-52.0 HEMATOCRIT eCW1 ([facility]) 86.9 80.0-96.0 MEAN CORPUSCULAR VOLUME e CW1 ([facility]) 27.7 27.0-33.0 MEAN CORPUSCULAR HEMOGLOB IN eCW1 ([facility]) 268 150-450 PLATELET COUNT, AUTOMATED eCW1 ([facility]) 15.9 11.5-14.5 RED CELL DISTRIBUTION WID TH eCW1 ([facility]) 31.9 32.0-36.5 MEAN CORPUSCULAR HGB CONC eCW1 ([facility]) ID Date Data Source [id number] 11/03/2019 12:10:00 PM EST [facility] ([facility]) Name Value Range Interpretation Code Description Data Aydee rce(s) Supporting Document(s) Hemoglobin A1c/Hemoglobin.total in Blood 10.5 [facility] ([facility]) Glucose [Mass/volume] in Serum or Plasma 258 [facility] ([facility] ) Procedure Social History Code Duration Value Status Description Data Source(s ) Smoking 11/03/2020 12:00:00 AM EST Former Smoker completed Former Smoker eCW1 ([facility]) Smoking 11/03/2020 12:00:00 AM EST Former Smoker completed Former Smoker eCW1 ([facility]) Smoking 11/03/2020 12:00:00 AM EST Former Smoker completed Former Smoker eCW1 ([facility]) Smoking 11/01/2020 12:00:00 AM EST Patient is a former smoker completed Patient is a former smoker [facility] ([facility]) Smoking 10/25/2020 12:00:00 AM EST Former Smoker completed Former Smoker eCW1 ([facility]) Smoking 10/25/2020 12:00:00 AM EST Former Smoker completed Former Smoker eCW1 ([facility]) Smoking 10/25/2020 12:00:00 AM EST Former Smoker completed Former Smoker eCW1 ([facility]) Smoking 10/25/2020 12:00:00 AM EST Former Smoker completed Former Smoker eCW1 ([facility]) Smoking 10/25/2020 12:00:00 AM EST Former Smoker completed Former Smoker eCW1 ([facility]) Smoking 10/25/2020 12:00:00 AM EST Former Smoker completed Former Smoker eCW1 ([facility]) Smoking 10/25/2020 12:00:00 AM EST Former Smoker completed Former Smoker eCW1 ([facility]) Smoking 10/19/2020 12:00:00 AM EST Former Smoker completed Former Smoker eCW1 ([facility]) Smoking 10/19/2020 12:00:00 AM EST Former Smoker completed Former Smoker eCW1 ([facility]) Smoking 10/19/2020 12:00:00 AM EST Former Smoker completed Former Smoker eCW1 ([facility]) Smoking 10/06/2020 12:00:00 AM EST Former Smoker completed Former Smoker eCW1 ([facility]) Smoking 10/06/2020 12:00:00 AM EST Former Smoker completed Former Smoker eCW1 ([facility]) Smoking 10/06/2020 12:00:00 AM EST Former Smoker completed Former Smoker eCW1 ([facility]) Smoking 10/06/2020 12:00:00 AM EST Former Smoker completed Former Smoker eCW1 ([facility]) Smoking 10/06/2020 12:00:00 AM EST Former Smoker completed Former Smoker eCW1 ([facility]) Smoking 09/21/2020 12:00:00 AM EST Former Smoker completed Former Smoker eCW1 ([facility]) Smoking 08/18/2020 12:00:00 AM EDT Former Smoker completed Former Smoker eCW1 ([facility]) Smoking 08/18/2020 12:00:00 AM EDT Former Smoker completed Former Smoker eCW1 ([facility]) Smoking 08/18/2020 12:00:00 AM EDT Former Smoker completed Former Smoker eCW1 ([facility]) Smoking 08/18/2020 12:00:00 AM EDT Former Smoker completed Former Smoker eCW1 ([facility]) Smoking 08/18/2020 12:00:00 AM EDT Former Smoker completed Former Smoker eCW1 ([facility]) Smoking 08/18/2020 12:00:00 AM EDT Former Smoker completed Former Smoker eCW1 ([facility]) Smoking 08/18/2020 12:00:00 AM EDT Former Smoker completed Former Smoker eCW1 ([facility]) Smoking 08/18/2020 12:00:00 AM EDT Former Smoker completed Former Smoker eCW1 ([facility]) Smoking 08/04/2020 12:00:00 AM EDT Former Smoker completed Former Smoker eCW1 ([facility]) Smoking 08/04/2020 12:00:00 AM EDT Former Smoker completed Former Smoker eCW1 ([facility]) Smoking 08/04/2020 12:00:00 AM EDT Former Smoker completed Former Smoker eCW1 ([facility]) Smoking 08/04/2020 12:00:00 AM EDT Former Smoker completed Former Smoker eCW1 ([facility]) Smoking 08/04/2020 12:00:00 AM EDT Former Smoker completed Former Smoker eCW1 ([facility]) Smoking 07/28/2020 12:00:00 AM EDT Former Smoker completed Former Smoker eCW1 ([facility]) Smoking 07/28/2020 12:00:00 AM EDT Former Smoker completed Former Smoker eCW1 ([facility]) Smoking 07/28/2020 12:00:00 AM EDT Former Smoker completed Former Smoker eCW1 ([facility]) Smoking 07/26/2020 12:00:00 AM EDT Patient is a former smoker completed Patient is a former smoker [facility] ([facility]) Smoking 07/21/2020 12:00:00 AM EDT Former Smoker completed Former Smoker eCW1 ([facility]) Smoking 02/06/2020 12:00:00 AM EDT Former Smoker completed Former Smoker eCW1 ([facility]) Smoking 02/06/2020 12:00:00 AM EDT Former Smoker completed Former Smoker eCW1 ([facility]) Vital Signs ID Date Data Source UNK Name Value Range Interpretation Code Description Data Source(s) Diastolic blood pressure 78 mm[Hg] 78 mm[Hg] eCW1 ([facility]) Systolic blood pressure 134 mm[Hg] 134 mm[Hg] e CW1 ([facility]) Body temperature 97.1 [degF] 97.1 [degF] eCW1 ( [facility]) Respiratory rate 18 /min 18 /min eCW1 ([facility]) Heart rate 91 /min 91 /min eCW1 (Replaced by [facility]) Body mass index (BMI) [Ratio] 19.23 kg/m2 19.23 kg/m2 eCW1 ([facility]) Body height [in_i] eCW1 ([facility]) Body weight 158 [lb_av] 158 [lb_av] eCW1 ([facility]) Diastolic blood pressure 84 mm[Hg] 84 mm[Hg] eCW1 ([facility]) Systolic blood pressure 154 mm[Hg] 154 mm[Hg] e CW1 ([facility]) Body temperature 97.2 [degF] 97.2 [degF] eCW1 ( [facility]) Respiratory rate 18 /min 18 /min eCW1 ([facility]) Heart rate 92 /min 92 /min eCW1 (Replaced by [facility]) Body mass index (BMI) [Ratio] 19.23 kg/m2 19.23 kg/m2 W1 ([facility]) Body height [in_i] eCW1 ([facility]) Body weight 158 [lb_av] 158 [lb_av] eCW1 ([facility]) Body mass index (BMI) [Ratio] 20.4 kg/m2 20.4 k g/m2 MEDENT ([facility]) Body weight 158.56 [lb_av] 158.56 [lb_av] ANUPEN T ([facility]) stated--in wheelchair Body height 74 [in_i] 74 [in_i] MEDENT ([facility]) 6'2" Body temperature 97.3 [degF] 97.3 [degF] MEDENT ([facility]) Diastolic blood pressure 84 mm[Hg] 84 mm[Hg] MEDENT ([facility]) Systolic blood pressure 136 mm[Hg] 136 mm[Hg] M EDENT ([facility]) Diastolic blood pressure 76 mm[Hg] 76 mm[Hg] eCW1 ([facility]) Systolic blood pressure 130 mm[Hg] 130 mm[Hg] e CW1 ([facility]) Body temperature 95 [degF] 95 [degF] eCW1 ([facility]) Respiratory rate 18 /min 18 /min eCW1 ([facility]) Heart rate 64 /min 64 /min eCW1 (Replaced by [facility]) Body mass index (BMI) [Ratio] 19.23 kg/m2 19.23 kg/m2 eCW1 ([facility]) Body height [in_i] eCW1 ([facility]) Body weight kg eCW1 ([facility]) Body weight 158 [lb_av] 158 [lb_av] eCW1 ([facility]) Diastolic blood pressure 68 mm[Hg] 68 mm[Hg] eCW1 ([facility]) Systolic blood pressure 120 mm[Hg] 120 mm[Hg] e CW1 ([facility]) Body temperature 97.3 [degF] 97.3 [degF] eCW1 ( [facility]) Respiratory rate 18 /min 18 /min eCW1 ([facility]) Heart rate 121 /min 121 /min eCW1 (Replaced by [facility]) Body mass index (BMI) [Ratio] 19.23 kg/m2 19.23 kg/m2 eCW1 ([facility]) Body height [in_i] eCW1 ([facility]) Body weight 158 [lb_av] 158 [lb_av] eCW1 ([facility]) Diastolic blood pressure 73 mm[Hg] 73 mm[Hg] eCW1 ([facility]) Systolic blood pressure 130 mm[Hg] 130 mm[Hg] e CW1 ([facility]) Body temperature 96.4 [degF] 96.4 [degF] eCW1 ( [facility]) Respiratory rate 16 /min 16 /min eCW1 ([facility]) Heart rate 124 /min 124 /min eCW1 (Replaced by [facility]) Body mass index (BMI) [Ratio] 19.23 kg/m2 19.23 kg/m2 eCW1 ([facility]) Body height [in_i] eCW1 ([facility]) Body weight kg eCW1 ([facility]) Body weight 158 [lb_av] 158 [lb_av] eCW1 ([facility]) Body temperature 96.4 [degF] 96.4 [degF] eCW1 ( [facility]) Respiratory rate 16 /min 16 /min eCW1 ([facility]) Body mass index (BMI) [Ratio] 19.23 kg/m2 19.23 kg/m2 eCW1 ([facility]) Body height [in_i] eCW1 ([facility]) Body weight kg eCW1 ([facility]) Body weight 158 [lb_av] 158 [lb_av] eCW1 ([facility]) Body surface area Derived from formula 1.95 m2 1.95 m2 [facility], [facility] Body weight 69.854 kg 69.854 kg MEDENT ([facility], ) [place] body weight 190 [lb_av] 190 [lb_av] MEDEN T ([facility], ) Body mass index (BMI) [Ratio] 19.5 kg/m2 19.5 k g/m2 MEDENT ([facility], ) Body weight 154.00 [lb_av] 154.00 [lb_av] MEDEN T ([facility], ) Body height 74.5 [in_i] 74.5 [in_i] [facility] 6'2.50" Diastolic blood pressure 81 mm[Hg] 81 mm[Hg] MEDENT ([facility], ) Systolic blood pressure 121 mm[Hg] 121 mm[Hg] M EDENT ([facility], ) Diastolic blood pressure 84 mm[Hg] 84 mm[Hg] eCW1 ([facility]) Systolic blood pressure 145 mm[Hg] 145 mm[Hg] e CW1 ([facility]) Body temperature 97.2 [degF] 97.2 [degF] eCW1 ( [facility]) Respiratory rate 16 /min 16 /min eCW1 ([facility]) Heart rate 84 /min 84 /min eCW1 (Replaced by [facility]) Body mass index (BMI) [Ratio] 19.23 kg/m2 19.23 kg/m2 eCW1 ([facility]) Body height [in_i] eCW1 ([facility]) Body weight 158 [lb_av] 158 [lb_av] eCW1 ([facility]) Diastolic blood pressure 81 mm[Hg] 81 mm[Hg] eCW1 ([facility]) Systolic blood pressure 141 mm[Hg] 141 mm[Hg] e CW1 ([facility]) Body temperature 97.2 [degF] 97.2 [degF] eCW1 ( [facility]) Respiratory rate 17 /min 17 /min eCW1 ([facility]) Heart rate 91 /min 91 /min eCW1 (Replaced by [facility]) Body mass index (BMI) [Ratio] 19.23 kg/m2 19.23 kg/m2 W1 ([facility]) Body height [in_i] eCW1 ([facility]) Body weight kg eCW1 ([facility]) Body weight 158 [lb_av] 158 [lb_av] eCW1 ([facility]) Body mass index (BMI) [Ratio] 21.6 kg/m2 21.6 k g/m2 MEDENT ([facility]) Body weight 168.50 [lb_av] 168.50 [lb_av] MEDEN T ([facility]) Body height 74 [in_i] 74 [in_i] MEDENT ([facility]) 6'2" Body temperature 97.6 [degF] 97.6 [degF] MEDENT ([facility]) Diastolic blood pressure 80 mm[Hg] 80 mm[Hg] MEDENT ([facility]) Systolic blood pressure 134 mm[Hg] 134 mm[Hg] M EDENT ([facility]) Diastolic blood pressure 78 mm[Hg] 78 mm[Hg] eCW1 ([facility]) Systolic blood pressure 151 mm[Hg] 151 mm[Hg] e CW1 ([facility]) Body temperature 95.6 [degF] 95.6 [degF] eCW1 ( [facility]) Respiratory rate 18 /min 18 /min eCW1 ([facility]) Heart rate 83 /min 83 /min eCW1 (Replaced by [facility]) Body mass index (BMI) [Ratio] 19.23 kg/m2 19.23 kg/m2 eCW1 ([facility]) Body height [in_i] eCW1 ([facility]) Body weight kg eCW1 ([facility]) Body weight 158 [lb_av] 158 [lb_av] eCW1 ([facility]) Diastolic blood pressure 68 mm[Hg] 68 mm[Hg] eCW1 ([facility]) Systolic blood pressure 136 mm[Hg] 136 mm[Hg] e CW1 ([facility]) Body temperature 96.4 [degF] 96.4 [degF] eCW1 ( [facility]) Respiratory rate 18 /min 18 /min eCW1 ([facility]) Heart rate 82 /min 82 /min eCW1 (Replaced by [facility]) Body mass index (BMI) [Ratio] 19.23 kg/m2 19.23 kg/m2 eCW1 ([facility]) Body height [in_i] eCW1 ([facility]) Body weight kg eCW1 ([facility]) Body weight 158 [lb_av] 158 [lb_av] eCW1 ([facility]) Diastolic blood pressure 65 mm[Hg] 65 mm[Hg] eCW1 ([facility]) Systolic blood pressure 120 mm[Hg] 120 mm[Hg] e CW1 ([facility]) Body temperature 97.6 [degF] 97.6 [degF] eCW1 ( [facility]) Respiratory rate 18 /min 18 /min eCW1 ([facility]) Heart rate 89 /min 89 /min eCW1 (Replaced by [facility]) Body mass index (BMI) [Ratio] 19.30 kg/m2 19.30 kg/m2 eCW1 ([facility]) Body height [in_i] eCW1 ([facility]) Body weight kg eCW1 ([facility]) Body weight 158.6 [lb_av] 158.6 [lb_av] eCW1 ([facility]) Diastolic blood pressure 70 mm[Hg] 70 mm[Hg] MEDENT ([facility]) Systolic blood pressure 112 mm[Hg] 112 mm[Hg] M EDENT ([facility]) Diastolic blood pressure 74 mm[Hg] 74 mm[Hg] MEDENT ([facility]) sitting, regular cuff Systolic blood pressure 112 mm[Hg] 112 mm[Hg] M EDENT ([facility]) sitting, regular cuff Heart rate 80 /min 80 /min MEDENT ([facility] Regular Body mass index (BMI) [Ratio] 19.5 kg/m2 19.5 k g/m2 MEDENT ([facility]) Body height 76 [in_i] 76 [in_i] MEDENT ([facility] 6'4" Body weight 160.00 [lb_av] 160.00 [lb_av] MEDEN T ([facility]) Diastolic blood pressure 82 mm[Hg] 82 mm[Hg] eCW1 ([facility]) Systolic blood pressure 152 mm[Hg] 152 mm[Hg] e CW1 ([facility]) Body temperature 97.2 [degF] 97.2 [degF] eCW1 ( [facility]) Respiratory rate 18 /min 18 /min eCW1 ([facility]) Heart rate 93 /min 93 /min eCW1 (Replaced by [facility]) Body mass index (BMI) [Ratio] 19.30 kg/m2 19.30 kg/m2 eCW1 ([facility]) Body height [in_i] eCW1 ([facility]) Body weight kg eCW1 ([facility]) Body weight 158.6 [lb_av] 158.6 [lb_av] eCW1 ([facility]) Diastolic blood pressure 84 mm[Hg] 84 mm[Hg] eCW1 ([facility]) Systolic blood pressure 130 mm[Hg] 130 mm[Hg] e CW1 ([facility]) Body temperature 96.6 [degF] 96.6 [degF] eCW1 ( [facility]) Respiratory rate 18 /min 18 /min eCW1 ([facility]) Heart rate 104 /min 104 /min eCW1 (Replaced by [facility]) Body mass index (BMI) [Ratio] 19.30 kg/m2 19.30 kg/m2 eCW1 ([facility]) Body height [in_i] eCW1 ([facility]) Body weight 158.6 [lb_av] 158.6 [lb_av] eCW1 ([facility]) Diastolic blood pressure 80 mm[Hg] 80 mm[Hg] eCW1 ([facility]) Systolic blood pressure 185 mm[Hg] 185 mm[Hg] e CW1 ([facility]) Body temperature 97.1 [degF] 97.1 [degF] eCW1 ( [facility]) Respiratory rate 16 /min 16 /min eCW1 ([facility]) Heart rate 85 /min 85 /min eCW1 (Replaced by [facility]) Body mass index (BMI) [Ratio] 20.08 kg/m2 20.08 kg/m2 eCW1 ([facility]) Body height [in_i] eCW1 ([facility]) Body weight 165 [lb_av] 165 [lb_av] eCW1 ([facility]) Oxygen saturation in Arterial blood by Pulse oximetry 100 % 100 % MEDENT ([facility] ) Body mass index (BMI) [Ratio] 21.6 kg/m2 21.6 k g/m2 MEDENT ([facility]) Body weight 168.38 [lb_av] 168.38 [lb_av] MEDEN T ([facility]) Body height 74 [in_i] 74 [in_i] MEDENT ([facility]) 6'2" Heart rate 69 /min 69 /min MEDENT ([facility]) Diastolic blood pressure 80 mm[Hg] 80 mm[Hg] MEDENT ([facility]) Systolic blood pressure 136 mm[Hg] 136 mm[Hg] M EDENT ([facility]) Body mass index (BMI) [Ratio] 22.0 kg/m2 22.0 k g/m2 MEDENT ([facility] ) Body weight 171.00 [lb_av] 171.00 [lb_av] MEDEN T ([facility] ) Body height 74 [in_i] 74 [in_i] MEDENT ([facility] ) 6'2" Diastolic blood pressure 72 mm[Hg] 72 mm[Hg] eCW1 ([facility]) Systolic blood pressure 120 mm[Hg] 120 mm[Hg] e CW1 ([facility]) Body temperature 96.4 [degF] 96.4 [degF] eCW1 ( [facility]) Respiratory rate 18 /min 18 /min eCW1 ([facility]) Heart rate 73 /min 73 /min eCW1 (Replaced by [facility]) Body mass index (BMI) [Ratio] 21.15 kg/m2 21.15 kg/m2 W1 ([facility]) Body height [in_us] eCW1 ([facility]) Body weight Measured 173.8 [lb_av] 173.8 [lb_av ] eCW1 ([facility]) Body mass index (BMI) [Ratio] 22.2 kg/m2 22.2 k g/m2 MEDENT ([facility] ) Body weight 175.00 [lb_av] 175.00 [lb_av] MEDEN T ([facility] ) Body height 74.50 [in_i] 74.50 [in_i] MEDENT ([facility]) 6'2.50" Diastolic blood pressure 66 mm[Hg] 66 mm[Hg] MEDENT ([facility]) Sitting Systolic blood pressure 122 mm[Hg] 122 mm[Hg] M EDENT ([facility]) Sitting Diastolic blood pressure 68 mm[Hg] 68 mm[Hg] MEDENT ([facility]) Sitting, regular cuff Systolic blood pressure 122 mm[Hg] 122 mm[Hg] M EDENT ([facility]) Sitting, regular cuff Respiratory rate 16 /min 16 /min MEDENT ( [facility]) Heart rate 84 /min 84 /min MEDENT ([facility]) Regular Body mass index (BMI) [Ratio] 21.8 kg/m2 21.8 k g/m2 MEDENT ([facility]) Body height 76 [in_i] 76 [in_i] MEDENT ([facility] 6'4" Body weight 179.00 [lb_av] 179.00 [lb_av] MEDEN T ([facility]) Diastolic blood pressure 84 mm[Hg] 84 mm[Hg] eCW1 ([facility]) Systolic blood pressure 130 mm[Hg] 130 mm[Hg] e CW1 ([facility]) Body temperature 96.4 [degF] 96.4 [degF] eCW1 ( [facility]) Respiratory rate 18 /min 18 /min eCW1 ([facility]) Heart rate 129 /min 129 /min eCW1 (Replaced by [facility]) Body mass index (BMI) [Ratio] 22.13 kg/m2 22.13 kg/m2 eCW1 ([facility]) Body height [in_us] eCW1 ([facility]) Body weight Measured 181.8 [lb_av] 181.8 [lb_av ] eCW1 ([facility]) Oxygen saturation in Arterial blood by Pulse oximetry 98 % 98 % MEDENT ([facility]) Body mass index (BMI) [Ratio] 23.4 kg/m2 23.4 k g/m2 MEDENT ([facility]) Body weight 182.38 [lb_av] 182.38 [lb_av] MEDEN T ([facility]) Body height 74 [in_i] 74 [in_i] MEDENT ([facility]) 6'2" Heart rate 122 /min 122 /min MEDENT ([facility]) Diastolic blood pressure 88 mm[Hg] 88 mm[Hg] MEDENT ([facility]) Systolic blood pressure 140 mm[Hg] 140 mm[Hg] M EDENT ([facility]) ID Date Data Source [id number] 12/15/2020 01:10:00 PM EST [facility] Name Value Range Interpretation Code Description Data Source(s) WEIGHT 70 kilos 70 kilos [facility] HEIGHT 187.96 centimeters 187.96 centimeter [facility] WEIGHT 70.9 kilos 70.9 kilos [facility] HEIGHT 187.96 centimeters 187.96 centimeter [facility] ID Date Data Source [id number] 12/15/2020 08:29:49 AM EST [facility] Name Value Range Interpretation Code Description Data Source(s) WEIGHT RECORDED 154.00 pounds 154.00 pounds [facility] Height 72 Inches 072 Inches [facility] ID Date Data Source [id number] 12/13/2020 07:17:00 AM EST [facility] Name Value Range Interpretation Code Description Data Source(s) WEIGHT 71.3 kilos 71.3 kilos [facility] HEIGHT 187.96 centimeters 187.96 centimeter [facility] Patient Treatment Plan of Care Planned Activity Planned Date Details Description Data Source (s) Wheelchair - 10/19/2020 12:00:00 AM EST e CW1 ([facility]) Wheelchair - 10/19/2020 12:00:00 AM EST e CW1 ([facility]) Wheelchair - 10/19/2020 12:00:00 AM EST e CW1 ([facility]) sildenafil 100 MG Oral Tablet 03/25/2020 12:00:00 AM EDT eCW1 ([facility]) sildenafil 100 MG Oral Tablet 03/25/2020 12:00:00 AM EDT eCW1 ([facility]) ferrous sulfate 325 MG Oral Tablet 11/06/2019 12:00:00 AM EST eCW1 ([facility])
[2020-12-16] MEDS ORDERED: NS 1,000 ML IV ONE (03:45)
[2020-12-16 03:52] LABS: HEMATOCRIT 25.2 % (42.0-52.0); HEMOGLOBIN 7.4 g/dl (13.5-17.5); LYMPH # 1.4 10^3/uL (1.5-5.0); LYMPH % 26.6 % (24.0-44.0); MEAN CORPUSCULAR HEMOGLOBIN 23.1 pg (27.0-33.0); MEAN CORPUSCULAR HGB CONC 29.4 g/dl (32.0-36.5); MEAN CORPUSCULAR VOLUME 78.8 fl (80.0-96.0); MONO # 0.4 10^3/uL (0.0-0.8); MONO % 6.7 % (2.0-8.0); NEUTROPHILS # 3.4 10^3/uL (1.5-8.5); NEUTROPHILS % 65.2 % (36.0-66.0); PLATELET COUNT, AUTOMATED 332 10^3/uL (150-450); WHITE BLOOD COUNT 5.2 10^3/uL (4.0-10.0)
[2020-12-16 04:21] LABS: OSMOLALITY SERUM 317 MOSM/KG (280-301)
[2020-12-16 04:32] LABS: ACETONE/KETONE 5.49 MG/DL (<2.81); ALBUMIN 2.7 GM/DL (3.2-5.2); ALT/SGPT 25 U/L (12-78); BILIRUBIN,DIRECT 0.2 MG/DL (0.0-0.2); BILIRUBIN,TOTAL 0.3 MG/DL (0.2-1.0); BLOOD UREA NITROGEN 25 MG/DL (7-18); CALCIUM LEVEL 8.8 MG/DL (8.8-10.2); CARBON DIOXIDE LEVEL 28 MEQ/L (21-32); CHLORIDE LEVEL 99 MEQ/L (98-107); CK-MB VALUE MASS 2.6 NG/ML (<3.6); CPK CREATINE PHOSPHOKINASE 34 U/L (39-308); CREATININE FOR GFR 1.13 MG/DL (0.70-1.30); ETHYL ALCOHOL (ETHANOL) < 0.003 % (0.000-0.010); FERRITIN 61 NG/ML (26-388); GLOMERULAR FILTRATION RATE > 60.0 (>42); GLUCOSE, FASTING 692 MG/DL (70-100); LDH LACTATE DEHYDROGENASE 180 U/L (87-241); LIPASE 19 U/L (73-393); MB/CK RELATIVE INDEX 7.65 (< OR =4); POTASSIUM SERUM 5.1 MEQ/L (3.5-5.1); SODIUM LEVEL 131 MEQ/L (136-145); TOTAL PROTEIN 6.4 GM/DL (6.4-8.2); TROPONIN I < 0.02 NG/ML (< 0.10)
[2020-12-16 04:35] LABS: HEMOGLOBIN A1c 8.7 %
[2020-12-16 04:57] LABS: VENOUS BASE EXCESS -1.9 (-2.0-2.0); VENOUS HCO3 24.4 MEQ/L (23.0-27.0); VENOUS O2 SATURATION 42.2 % (60.0-80.0); VENOUS PARTIAL PRESSURE CO2 49.9 mmHg (38.0-50.0); VENOUS PARTIAL PRESSURE O2 26.8 mmHg (30.0-50.0); VENOUS PH 7.308 UNITS (7.330-7.430); VENOUS STANDARD HCO3 22.2 MEQ/L
[2020-12-16] MEDS ORDERED: HumaLOG INSULIN (NovoLOG) PER UNIT SC STA ×2 (05:04→06:31)
--- OUTSIDE RECORDS SUMMARY | 2020-12-16 05:20 | CCD ---
Author Author [facility] Organization [facility] Address Unknown Phone Unavailable Care Team Providers Care Service Delivery Manager Name Role Phone [facility], Area [place] Unavailable Unavailable Symenow, Malathi Colin PA Unavailable [...] Symenow, Malathi Colin PA Unavailable Unavailable Fish, [facility], PA-C Unavailable Unavailabl e Fish, [facility], PA-C Unavailable Unavailabl e Fish, [facility], PA-C Unavailable Unavailabl e Fish, [facility], PA-C Unavailable Unavailabl e Fish, [facility], PA-C Unavailable Unavailabl e Fish, [facility], PA-C Unavailable Unavailabl e Fish, [facility], PA-C Unavailable Unavailabl e Fish, [facility], PA-C Unavailable Unavailabl e Fish, [facility], PA-C Unavailable Unavailabl e Fish, [facility], PA-C Unavailable Unavailabl e Fish, [facility], PA-C Unavailable Unavailabl e Fish, [facility], PA-C Unavailable Unavailabl e Fish, [facility], PA-C Unavailable Unavailabl e Fish, [facility], PA-C Unavailable Unavailabl e Fish, [facility], PA-C Unavailable Unavailabl e Fish, [facility], PA-C Unavailable Unavailabl e Fish, [facility], PA-C Unavailable Unavailabl e Fish, [facility], PA-C Unavailable Unavailabl e Fish, [facility], PA-C Unavailable Unavailabl e Fish, [facility], PA-C Unavailable Unavailabl e Fish, [facility], PA-C Unavailable Unavailabl e Fish, [facility], PA-C Unavailable Unavailabl e Fish, [facility], PA-C Unavailable Unavailabl e Fish, [facility], PA-C Unavailable Unavailabl e Fish, [facility], PA-C Unavailable Unavailabl e Fish, [facility], PA-C Unavailable Unavailabl e Fish, [facility], PA-C Unavailable Unavailabl e Fish, [facility], PA-C Unavailable Unavailabl e Fish, [facility], PA-C Unavailable Unavailabl e Fish, [facility], PA-C Unavailable Unavailabl e Fish, [facility], PA-C Unavailable Unavailabl e Fish, [facility], PA-C Unavailable Unavailabl e Fish, [facility], PA-C Unavailable Unavailabl e Fish, [facility], PA-C Unavailable Unavailabl e Fish, B Harry PHILPI Unavailable Unavailable Fish, B Harry PHILIP Unavailable [...] DO Unavailable Unavailable Oscar Falanga, A Kasey THRILL PERFORMER Unavailable Unavailable [place] Falanga, A Kasey THRILL PERFORMER Unavailable Unavailable Oscar Falanga, A Kasey THRILL PERFORMER Unavailable Unavailable Oscar Falanga, A Kasey THRILL PERFORMER Unavailable Unavailable Oscar Falanga, A Kasey THRILL PERFORMER Unavailable Unavailable [place] Falanga, A Kasey THRILL PERFORMER Unavailable Unavailable [place] Falanga, A Kasey THRILL PERFORMER Unavailable Unavailable Oscar Falanga, A Kasey THRILL PERFORMER Unavailable Unavailable Oscar Falanga, A Kasey THRILL PERFORMER Unavailable Unavailable Oscar Falanga, A Kasey THRILL PERFORMER Unavailable Unavailable [place] Falanga, A Kasey THRILL PERFORMER Unavailable Unavailable Oscar Falanga, A Kasey THRILL PERFORMER Unavailable Unavailable [place] Falanga, A Kasey THRILL PERFORMER Unavailable Unavailable Oscar Falanga, A Kasey THRILL PERFORMER Unavailable Unavailable [place] Falanga, A Kasey THRILL PERFORMER Unavailable Unavailable Oscar Falanga, A Kasey THRILL PERFORMER Unavailable Unavailable Oscar Falanga, A Kasey THRILL PERFORMER Unavailable Unavailable [place] Falanga, A Kasey THRILL PERFORMER Unavailable Unavailable [place] Falanga, A Kasey THRILL PERFORMER Unavailable Unavailable Oscar Falanga, A Kasey THRILL PERFORMER Unavailable Unavailable [place] Falanga, A Kasey THRILL PERFORMER Unavailable Unavailable Oscar Falanga, A Kasey THRILL PERFORMER Unavailable Unavailable [place] Falanga, A Kasey THRILL PERFORMER Unavailable Unavailable Oscar Falanga, A Kasey THRILL PERFORMER Unavailable Unavailable Oscar Falanga, A Kasey THRILL PERFORMER Unavailable Unavailable [place] Falanga, A Kasey THRILL PERFORMER Unavailable Unavailable [place] Falanga, A Kasey THRILL PERFORMER Unavailable Unavailable [place] Falanga, A Kasey THRILL PERFORMER Unavailable Unavailable Oscar Falanga, A Kasey THRILL PERFORMER Unavailable Unavailable [place] Falanga, A Kasey THRILL PERFORMER Unavailable Unavailable F[place]avak, Juan M Marquez MD [...] Unavailable ANTECOL, Julienne FRANKLIN MD Unavailable Unavailable Radha BURDICK DPM Unavailable Unavailable [...] +011 SUNG, FRANCISCO DO Unavailable [phone] Fish, [facility], PA-C Unavailable Unavailabl e Fish, [facility], PA-C Unavailable Unavailabl e Fish, [facility], PA-C Unavailable Unavailabl e Fish, [facility], PA-C Unavailable Unavailabl e Fish, [facility], PA-C Unavailable Unavailabl e Fish, [facility], PA-C Unavailable Unavailabl e Fish, [facility], PA-C Unavailable Unavailabl e Fish, [facility], PA-C Unavailable Unavailabl e Fish, [facility], PA-C Unavailable Unavailabl e Fish, [facility], PA-C Unavailable Unavailabl e Fish, [facility], PA-C Unavailable Unavailabl e Fish, [facility], PA-C Unavailable Unavailabl e Fish, [facility], PA-C Unavailable Unavailabl e Fish, [facility], PA-C Unavailable Unavailabl e Fish, [facility], PA-C Unavailable Unavailabl e Fish, [facility], PA-C Unavailable Unavailabl e Fish, [facility], PA-C Unavailable Unavailabl e Fish, [facility], PA-C Unavailable Unavailabl e Fish, [facility], PA-C Unavailable Unavailabl e Fish, [facility], PA-C Unavailable Unavailabl e Fish, [facility], PA-C Unavailable Unavailabl e Fish, [facility], PA-C Unavailable Unavailabl e Fish, [facility], PA-C Unavailable Unavailabl e Fish, [facility], PA-C Unavailable Unavailabl e Fish, [facility], PA-C Unavailable Unavailabl e Fish, [facility], PA-C Unavailable Unavailabl e Fish, [facility], PA-C Unavailable Unavailabl e Fish, [facility], PA-C Unavailable Unavailabl e Fish, [facility], PA-C Unavailable Unavailabl e Fish, [facility], PA-C Unavailable Unavailabl e Fish, [facility], PA-C Unavailable Unavailabl e Fish, [facility], PA-C Unavailable Unavailabl e Fish, [facility], PA-C Unavailable Unavailabl e Fish, [facility], PA-C Unavailable Unavailabl e TURRIN, LYDIA Unavailable [...] Fish, Boyd Cabrera MD Unavailable Unavailable Fish, Body Cabrera MD Unavailable Unavailable Fish, Boyd Cabrera [...] Unavailable Unavailable PIMENTEL, OSWALDO MD Unavailable Unavailable PIMNETEL, OSWALDO MD Unavailable Unavailable PIMENTEL, OSWALDO MD [...] Unavailable Unavailable PIMENTEL, OSWALDO MD Unavailable Unavailable PMIENTEL, OSWALDO MD Unavailable Unavailable PIMENTEL, OSWALDO MD [...] is protected by Article 27-F of the [facility] Public Health law. If you continue you may have access to information: Regarding HIV / AIDS; Provided by facilities licensed or operated by the [facility] Office of Mental Health; or Provided by the [facility] Office for People With Developmental Disabilities. If such information is present, then the following [facility] mandated warning applies: This information [...] law may result in a fine or snf sentence or both. A general authorization for the release of medical or other information is NOT sufficient authorization for further disc losure. Allergies and Adverse Reactions Type Description Substance Reaction Status Data Source(s ) No Known Allergies No Known Allergies [facility] Drug allergy No Known Drug Allergies No Known Drug Allergies [facility] Drug allergy No Known Allergies No Known Allergies [facility] Environmental Environmental Environmental Unknown Active eCW1 ([facility]) Environmental Environmental Environmental Unknown Active eCW1 ([facility]) Family History Family Member Name Family Member Gender Family Member Status Date o f Status Description Data Source(s) Unknown Unknown Problem MEDENT ([facility]) Unknown Male Problem [facility] ([facility]) Unknown Unknown Problem MEDENT ([facility]) Unknown Female Problem MEDENT ([facility] Unknown Female Problem MEDENT ([facility] Encounters Encounter Providers Location Date Indications Data Source(s ) Inpatient Attender: NACHO HAMILTONSwati VICTORtt fannie: NOLAN TRIANA DOAttender: NOLAN TRIANA DOAdmitter: NOLAN TRIANA DO ER-2EAST 12/09/2020 02:03:00 PM [facility] - 12/13/2020 04:52:00 PM [facility] Patient discharged. Inpatient Attender: Kasey Solis FNPConsultant: Radha Duvall MD 12/09/2020 08:48:05 AM [facility] - 12/09/2020 12:15:00 PM [facility] Patient discharged. Outpatient Attender: [facility] 12/09/2020 05:3 7:00 AM [facility] Inpatient Attender: Kasey Solis FNPConsultant: Radha Duvall MD 12/08/2020 02:35:00 PM [facility] - 12/09/2020 08:41:00 AM [facility] Patient discharged. Inpatient Attender: NOLAN TRIANA DOAttender: NOLAN TRIANA DOAdmitter : NOLAN TRIANA DO ER-ICU 12/05/2020 06:13:00 PM [facility] - 12/08/2020 01:00:00 PM [facility] Patient discharged. Outpatient Attender: [facility] 12/05/2020 09:5 0:00 AM [facility] Emergency Attender: QUENTIN COELHOConsultant: Jimmy Duvall MD 12/05/2020 09:38:00 AM [facility] - 12/05/2020 04:20:00 PM [facility] Patient discharged. Outpatient Attender: OSWALDO PIMENTEL MDConsultant: Jimmy dahl MD 11/30/2020 06:58:00 AM EST - 11/30/2020 07:08:00 AM EST [facility] Outpatient Attender: OSWALDO PIMENTEL MDConsultant: Jimmy dahl MD 11/29/2020 03:11:00 PM EST - 11/29/2020 03:21:00 PM EST [facility] Unknown [address] [facility] [place] [address] 11/12/2020 12:00:00 AM EST eCW1 ([facility]) Outpatient [address] [place] [address] 11/03/2020 12:00:00 AM EST eCW1 ([facility]) Outpatient [address] [facility] [address] 11/03/2020 12:00:00 AM EST eCW1 ([facility]) Outpatient Attender: Deborah Caldwell MD Physical Therapy 11/01 09:30:00 AM EST MEDENT ([facility]) [place] [address] [facility] [address] 10/28/2020 12:00:00 AM EST eCW1 ([facility]) [place] [address] [facility] [address] 10/25/2020 12:00:00 AM EST eCW1 ([facility]) Outpatient [address] [facility] [address] 10/25/2020 12:00:00 AM EST eCW1 ([facility]) [place] [address] [facility] [address] 10/25/2020 12:00:00 AM EST eCW1 ([facility]) [place] [address] [facility] [address] 10/25/2020 12:00:00 AM EST eCW1 ([facility]) Outpatient [address] [facility] [place] [address] 10/19/2020 12:00:00 AM EST eCW1 ([facility]) ([id number]) [facility] [employer] [address] [place] [address] 10/19/2020 12:00:00 AM EST eCW1 ([facility]) Unknown [address] [facility] [address] 10/19/2020 12:00:00 AM EST eCW1 ([facility]) Unknown [address] [facility] [place] [address] 10/18/2020 12:00:00 AM EST eCW1 ([facility]) Unknown [address] [facility] [address] 10/18/2020 12:00:00 AM EST eCW1 ([facility]) Unknown [address] [facility] [address] 10/14/2020 12:00:00 AM EST eCW1 ([facility]) Unknown [address] [facility] [address] 10/11/2020 12:00:00 AM EST eCW1 ([facility]) Unknown [address] [facility] [address] 10/07/2020 12:00:00 AM EST eCW1 ([facility]) ([id number]) [facility] [employer] [address] [place] [address] 10/06/2020 12:00:00 AM EST eCW1 ([facility]) ([id number]) [facility] [employer] [address] [place] [address] 09/29/2020 12:00:00 AM EST eCW1 ([facility]) Outpatient [address] [facility] [address] 09/21/2020 12:00:00 AM EST eCW1 ([facility]) Unknown [address] [facility] [address] 09/08/2020 12:00:00 AM EST eCW1 ([facility]) Unknown [address] [facility] [address] 09/01/2020 12:00:00 AM EST eCW1 ([facility]) Unknown [address] [facility] [address] 08/25/2020 12:00:00 AM EST eCW1 ([facility]) Unknown [address] [facility] [address] 08/24/2020 12:00:00 AM EST eCW1 ([facility]) Outpatient Attender: Deborah Caldwell MD Physical Therapy 08/20 01:30:00 PM EDT MEDENT ([facility]) Unknown [address] [facility] [address] 08/20/2020 12:00:00 AM EDT eCW1 ([facility]) ([id number]) [facility] [employer] [address] [place] [address] 08/18/2020 12:00:00 AM EDT eCW1 ([facility]) Unknown [address] [facility] [address] 08/18/2020 12:00:00 AM EDT eCW1 ([facility]) Unknown [address] [facility] [address] 08/18/2020 12:00:00 AM EDT eCW1 ([facility]) Office Visit Attender: RIGOBERTO HERRERA MD Main Office 08/13/2020 10: 06:00 AM EDT MEDENT ([facility]) ([id number]) [employer] [address] [place] [address] 08/04/2020 12:00:00 AM EDT eCW1 ([facility]) Unknown [address] [facility] [address] 08/02/2020 12:00:00 AM EDT eCW1 ([facility]) Unknown [address] [facility] [id number] 07/30/2020 12:00:00 AM EDT eCW1 ([facility]) ([id number]) [employer] [address] [place] [address] 07/28/2020 12:00:00 AM EDT eCW1 ([facility]) Unknown [address] [facility] [address] 07/28/2020 12:00:00 AM EDT eCW1 ([facility]) Outpatient Attender: Dixie RAMIREZ Main Office 07/26/2020 10:45:00 AM EDT MEDENT ([facility]) Office Visit, Est Pt., Level 3 FC [address] [place] [address] 07/23/2020 12:00:00 AM EDT eCW1 ([facility]) Office Visit, Est Pt., Level 3 PC [address] [place] [address] 07/22/2020 12:00:00 AM EDT eCW1 ([facility]) Outpatient [address] [facility] [address] 07/21/2020 12:00:00 AM EDT eCW1 ([facility]) Office Visit Attender: RIGOBERTO HERRERA MD Main Office 07/08/2020 10: 43:00 AM EDT MEDENT ([facility]) Outpatient Attender: JULIETH BURDICK [facility] Office 12/2019 01:30:00 PM EDT MEDENT ([facility] Emergency Attender: LYDIA Hernandezsultant: Jimmy dahl MD 06/09/2020 01:20:00 PM EDT - 06/09/2020 05:30:00 PM EDT [facility] Patient discharged. Outpatient Attender: JULIETH BURDICK [facility] Office 05/22 01:15:00 PM EDT MEDENT ([facility] Outpatient Attender: Deborah Caldwell MD Physical Therapy 05/18 11:30:00 AM EDT MEDENT ([facility]) [place] [address] [facility] [facility] [place] [address] 05/14/2020 12:00:00 AM EDT eCW1 ([facility] [place] [place] [address] [facility] [address] 05/14/2020 12:00:00 AM EDT [facility]CW1 [facility] [place] [address] [facility] [address] 05/10/2020 12:00:00 AM EDT eCW1 ([facility]) Outpatient Attender: JULIETH BURDICK [facility] Office 06/2020 10:30:00 AM EDT MEDENT ([facility] [place] [address] [facility] [address] 03/25/2020 12:00:00 AM EDT eCW1 ([facility]) Outpatient Attender: Becky HANSON PA-C Physical Therapy 02/24/2020 10:30:00 AM EDT MEDENT ([facility]) [facility] [place] [address] [facility] [address] 02/17/2020 12:00:00 AM EDT eCW1 ([facility]) Outpatient Referrer: Becky HANSON PA-C 02/13/2020 06:4 1:00 AM EDT [facility] Outpatient Attender: Deborah Caldwell MD Physical Therapy 02/09 11:15:00 AM EDT MEDENT ([facility]) [facility] [place] [address] [facility] [address] 02/06/2020 12:00:00 AM EDT [facility]CW1 [facility] [place] [place] [address] [facility] [address] 02/06/2020 12:00:00 AM EDT [facility]CW1 [facility] [place] [place] [address] [facility] [address] 02/03/2020 12:00:00 AM EDT [facility] [place] [address] [facility] [address] 01/28/2020 12:00:00 AM EDT eCW1 ([facility]) [facility] [place] [address] [facility] [address] 01/28/2020 12:00:00 AM EDT eCW1 ([facility]) Outpatient Referrer: Becky HANSON PA-C 12/25/2019 12:3 6:00 PM EST [facility] [place] [facility] [address] 12/22/2019 12:00:00 AM EST eCW1 ([facility]) Outpatient Attender: Harry Caldwell MD Physical Therapy 11/26/2019 0 2:15:00 PM EST MEDENT ([facility]) Outpatient Attender: Dixie RAMIREZ Main Office 11/14/2019 08:45:00 AM EST MEDENT ([facility]) [facility] [place] [address] [place] [address], [place] [address] 11/12/2019 12:00:00 AM EST eCW1 ([facility]) [facility] [place] [address] [place] [address], [place] [address] 11/10/2019 12:00:00 AM EST eCW1 ([facility]) [facility] [place] [address] [place] [address], [place] [address] 11/06/2019 12:00:00 AM EST eCW1 ([facility]) [facility] [place] [address] [place] [address], [place] [address] 11/04/2019 12:00:00 AM EST eCW1 ([facility]) Outpatient Attender: Deborah Caldwell MD Physical Therapy 11/03 10:45:00 AM EST MEDENT ([facility]) Immunizations Vaccine Date Status Description Data Source(s) influenza, recombinant, quadrIvalent,injectable, prese rvative free 08/04/2020 07:43:00 AM EDT completed eCW1 ([facility]) influenza, recombinant, quadrIvalent,injectable, prese rvative free 08/04/2020 07:43:00 AM EDT completed eCW1 ([facility]) influenza, recombinant, quadrIvalent,injectable, prese rvative free 08/04/2020 07:43:00 AM EDT completed eCW1 ([facility]) influenza, recombinant, quadrIvalent,injectable, prese rvative free 08/04/2020 07:43:00 AM EDT completed eCW1 ([facility]) influenza, recombinant, quadrIvalent,injectable, prese rvative free 08/04/2020 07:43:00 AM EDT completed eCW1 ([facility]) influenza, recombinant, quadrIvalent,injectable, prese rvative free 08/04/2020 07:43:00 AM EDT completed eCW1 ([facility]) influenza, recombinant, quadrIvalent,injectable, prese rvative free 08/04/2020 07:43:00 AM EDT completed eCW1 ([facility]) influenza, recombinant, quadrIvalent,injectable, prese rvative free 08/04/2020 07:43:00 AM EDT completed eCW1 ([facility]) influenza, recombinant, quadrIvalent,injectable, prese rvative free 08/04/2020 07:43:00 AM EDT completed eCW1 ([facility]) influenza, recombinant, quadrIvalent,injectable, prese rvative free 08/04/2020 07:43:00 AM EDT completed eCW1 ([facility]) influenza, recombinant, quadrIvalent,injectable, prese rvative free 08/04/2020 07:43:00 AM EDT completed eCW1 ([facility]) influenza, recombinant, quadrIvalent,injectable, prese rvative free 08/04/2020 07:43:00 AM EDT completed eCW1 ([facility]) influenza, recombinant, quadrIvalent,injectable, prese rvative free 08/04/2020 07:43:00 AM EDT completed eCW1 ([facility]) influenza, recombinant, quadrIvalent,injectable, prese rvative free 08/04/2020 07:43:00 AM EDT completed eCW1 ([facility]) influenza, recombinant, quadrIvalent,injectable, prese rvative free 08/04/2020 07:43:00 AM EDT completed eCW1 ([facility]) influenza, recombinant, quadrIvalent,injectable, prese rvative free 08/04/2020 07:43:00 AM EDT completed eCW1 ([facility]) influenza, recombinant, quadrIvalent,injectable, prese rvative free 08/04/2020 07:43:00 AM EDT completed eCW1 ([facility]) influenza, recombinant, quadrIvalent,injectable, prese rvative free 08/04/2020 07:43:00 AM EDT completed eCW1 ([facility]) influenza, recombinant, quadrIvalent,injectable, prese rvative free 08/04/2020 07:43:00 AM EDT completed eCW1 ([facility]) influenza, recombinant, quadrIvalent,injectable, prese rvative free 08/04/2020 07:43:00 AM EDT completed eCW1 ([facility]) influenza, recombinant, quadrIvalent,injectable, prese rvative free 08/04/2020 07:43:00 AM EDT completed eCW1 ([facility]) influenza, recombinant, quadrIvalent,injectable, prese rvative free 08/04/2020 07:43:00 AM EDT completed eCW1 ([facility]) influenza, recombinant, quadrIvalent,injectable, prese rvative free 08/04/2020 07:43:00 AM EDT completed eCW1 ([facility]) influenza, recombinant, quadrIvalent,injectable, prese rvative free 08/04/2020 07:43:00 AM EDT completed eCW1 ([facility]) influenza, recombinant, quadrIvalent,injectable, prese rvative free 08/04/2020 07:43:00 AM EDT completed eCW1 ([facility]) influenza, recombinant, quadrIvalent,injectable, prese rvative free 08/04/2020 07:43:00 AM EDT completed eCW1 ([facility]) influenza, recombinant, quadrIvalent,injectable, prese rvative free 08/04/2020 07:43:00 AM EDT completed eCW1 ([facility]) influenza, recombinant, quadrIvalent,injectable, prese rvative free 08/04/2020 07:43:00 AM EDT completed eCW1 ([facility]) influenza, recombinant, quadrIvalent,injectable, prese rvative free 08/04/2020 07:43:00 AM EDT completed eCW1 ([facility]) influenza, recombinant, quadrIvalent,injectable, prese rvative free 08/04/2020 07:43:00 AM EDT completed eCW1 ([facility]) influenza, recombinant, quadrIvalent,injectable, prese rvative free 08/04/2020 07:43:00 AM EDT completed eCW1 ([facility]) influenza, recombinant, quadrIvalent,injectable, prese rvative free 08/04/2020 07:43:00 AM EDT completed eCW1 ([facility]) INFLUENZA VIRUS VACCINE QUADRIVAL (6 MOS AND [...] 11/01/2020 12:00:00 AM EST active M EDENT ([facility]) 3 ML Insulin Lispro 100 UNT/ML Pen Injector [Humalog] Humalo g Kwikpen 11/01/2020 12:00:00 AM EST active MEDENT ([facility]) Wheelchair - Wheelchair - 10/19/2020 12:00:00 AM EST active Wheelchair - eCW1 ([facility]) Wheelchair - Wheelchair - 10/19/2020 12:00:00 AM EST active Wheelchair - eCW1 ([facility]) Wheelchair - Wheelchair - 10/19/2020 12:00:00 AM EST active Wheelchair - eCW1 ([facility]) 40 mg 10/19/2020 12:00:00 AM [...] EST active Wheelchair - eCW1 ([facility]) Wheelchair - Wheelchair - 10/19/2020 12:00:00 AM EST active Wheelchair - eCW1 ([facility]) Wheelchair - Wheelchair - 10/19/2020 12:00:00 AM EST active Wheelchair - eCW1 ([facility]) 300 mg 10/19/2020 12:00:00 AM EST capsule 8 TAKE TWO CAPSULES BY MOUTH EVERY DAY TAKE TWO CAPSULES BY MOUTH EVERY DAY SOLD: 10/19/2020 [facility] Wheelchair - Wheelchair - 10/19/2020 12:00:00 AM EST active Wheelchair - eCW1 ([facility]) Wheelchair - Wheelchair - 10/19/2020 12:00:00 AM EST active Wheelchair - eCW1 ([facility]) Wheelchair - Wheelchair - 10/19/2020 12:00:00 AM EST active Wheelchair - eCW1 ([facility]) Wheelchair - Wheelchair - 10/19/2020 12:00:00 AM EST active Wheelchair - eCW1 ([facility]) 50 mg 10/19/2020 12:00:00 AM [...] EST active Wheelchair - eCW1 ([facility]) 20 mg 10/19/2020 12:00:00 AM EST tablet 30 TAKE ONE TABLET BY MOUTH EVERY DAY TAKE ONE TABLET BY MOUTH EVERY DAY SOLD: 10/19/2020 [facility] Wheelchair - Wheelchair - 10/19/2020 12:00:00 AM EST active Wheelchair - eCW1 ([facility]) 20 mg 10/19/2020 12:00:00 AM EST tablet 30 TAKE ONE TABLET BY MOUTH EVERY DAY TAKE ONE TABLET BY MOUTH EVERY DAY SOLD: 10/19/2020 [facility] Wheelchair - Wheelchair - 10/19/2020 12:00:00 AM EST active Wheelchair - eCW1 ([facility]) 100 mg 10/19/2020 12:00:00 AM [...] ORAL active MEDENT ([facility]) Magnesium 07/25/2020 12:00:00 AM EDT ORAL active MEDENT ([facility]) QC Tumeric Complex 07/25/2020 12:00:00 AM EDT ORAL active MEDENT ([facility]) lansoprazole 30 MG Delayed Release Oral Capsule [Prevacid] P revacid 07/25/2020 12:00:00 AM EDT ORAL active M EDENT ([facility]) Mometasone Furoate Mometasone Furoate 07/25/2020 12:00:00 AM EDT active [facility] 20 mg 07/07/2020 12:00:00 AM EDT capsule [...] Sildenafil Citrate 100 MG eCW1 ([facility]) sildenafil 100 MG Oral Tablet Sildenafil Citrate 100 M G Sildenafil Citrate 100 MG 03/25/2020 12:00:00 AM EDT 1.0 {tablet} activ e Sildenafil Citrate 100 MG eCW1 ([facility]) sildenafil 100 MG Oral Tablet Sildenafil Citrate 100 M G Sildenafil Citrate 100 MG 03/25/2020 12:00:00 AM EDT 1.0 {tablet} activ e Sildenafil Citrate 100 MG eCW1 ([facility]) sildenafil 100 MG Oral Tablet Sildenafil Citrate 100 M G Sildenafil Citrate 100 MG 03/25/2020 12:00:00 AM EDT 1.0 {tablet} activ e Sildenafil Citrate 100 MG eCW1 ([facility]) sildenafil 100 MG Oral Tablet Sildenafil Citrate 100 M G Sildenafil Citrate 100 MG 03/25/2020 12:00:00 AM EDT 1.0 {tablet} suspe nded Sildenafil Citrate 100 MG eCW1 ([facility]) sildenafil 100 MG Oral Tablet Sildenafil Citrate 100 M G Sildenafil Citrate 100 MG 03/25/2020 12:00:00 AM EDT 1.0 {tablet} activ e Sildenafil Citrate 100 MG eCW1 ([facility]) sildenafil 100 MG Oral Tablet Sildenafil Citrate 100 M G Sildenafil Citrate 100 MG 03/25/2020 12:00:00 AM EDT 1.0 {tablet} activ e Sildenafil Citrate 100 MG eCW1 ([facility]) sildenafil 100 MG Oral Tablet Sildenafil Citrate 100 M G Sildenafil Citrate 100 MG 03/25/2020 12:00:00 AM EDT 1.0 {tablet} suspe nded Sildenafil Citrate 100 MG eCW1 ([facility]) sildenafil 100 MG Oral Tablet Sildenafil Citrate 100 M G Sildenafil Citrate 100 MG 03/25/2020 12:00:00 AM EDT 1.0 {tablet} activ e Sildenafil Citrate 100 MG eCW1 ([facility]) sildenafil 100 MG Oral Tablet Sildenafil Citrate 100 M G Sildenafil Citrate 100 MG 03/25/2020 12:00:00 AM EDT 1.0 {tablet} activ e Sildenafil Citrate 100 MG eCW1 ([facility]) sildenafil 100 MG Oral Tablet Sildenafil Citrate 100 M G Sildenafil Citrate 100 MG 03/25/2020 12:00:00 AM EDT 1.0 {tablet} activ e Sildenafil Citrate 100 MG eCW1 ([facility]) sildenafil 100 MG Oral Tablet Sildenafil Citrate 100 M G Sildenafil Citrate 100 MG 03/25/2020 12:00:00 AM EDT 1.0 {tablet} activ e Sildenafil Citrate 100 MG eCW1 ([facility]) sildenafil 100 MG Oral Tablet Sildenafil Citrate 100 M G Sildenafil Citrate 100 MG 03/25/2020 12:00:00 AM EDT 1.0 {tablet} activ e Sildenafil Citrate 100 MG eCW1 ([facility]) sildenafil 100 MG Oral Tablet Sildenafil Citrate 100 M G Sildenafil Citrate 100 MG 03/25/2020 12:00:00 AM EDT 1.0 {tablet} activ e Sildenafil Citrate 100 MG eCW1 ([facility]) sildenafil 100 MG Oral Tablet Sildenafil Citrate 100 M G Sildenafil Citrate 100 MG 03/25/2020 12:00:00 AM EDT 1.0 {tablet} suspe nded Sildenafil Citrate 100 MG eCW1 ([facility]) sildenafil 100 MG Oral Tablet Sildenafil Citrate 100 M G Sildenafil Citrate 100 MG 03/25/2020 12:00:00 AM EDT 1.0 {tablet} activ e Sildenafil Citrate 100 MG eCW1 ([facility]) sildenafil 100 MG Oral Tablet Sildenafil Citrate 100 M G Sildenafil Citrate 100 MG 03/25/2020 12:00:00 AM EDT 1.0 {tablet} activ e Sildenafil Citrate 100 MG eCW1 ([facility]) sildenafil 100 MG Oral Tablet Sildenafil Citrate 100 M G Sildenafil Citrate 100 MG 03/25/2020 12:00:00 AM EDT 1.0 {tablet} activ e Sildenafil Citrate 100 MG eCW1 ([facility]) sildenafil 100 MG Oral Tablet Sildenafil Citrate 100 M G Sildenafil Citrate 100 MG 03/25/2020 12:00:00 AM EDT 1.0 {tablet} activ e Sildenafil Citrate 100 MG eCW1 ([facility]) 100 mg 03/25/2020 12:00:00 AM EDT tablet 30 TAKE ONE TABLET BY MOUTH EVERY DAY TAKE ONE TABLET BY MOUTH EVERY DAY SOLD: 03/30/2020 [facility] sildenafil 100 MG Oral Tablet Sildenafil Citrate 100 M G Sildenafil Citrate 100 MG 03/25/2020 12:00:00 AM EDT 1.0 {tablet} suspe nded Sildenafil Citrate 100 MG eCW1 ([facility]) sildenafil 100 MG Oral Tablet Sildenafil Citrate 100 M G Sildenafil Citrate 100 MG 03/25/2020 12:00:00 AM EDT 1.0 {tablet} activ e Sildenafil Citrate 100 MG eCW1 ([facility]) sildenafil 100 MG Oral Tablet Sildenafil Citrate 100 M G Sildenafil Citrate 100 MG 03/25/2020 12:00:00 AM EDT 1.0 {tablet} activ e Sildenafil Citrate 100 MG eCW1 ([facility]) sildenafil 100 MG Oral Tablet Sildenafil Citrate 100 M G Sildenafil Citrate 100 MG 03/25/2020 12:00:00 AM EDT 1.0 {tablet} suspe nded Sildenafil Citrate 100 MG eCW1 ([facility]) sildenafil 100 MG Oral Tablet Sildenafil Citrate 100 M G Sildenafil Citrate 100 MG 03/25/2020 12:00:00 AM EDT 1.0 {tablet} suspe nded Sildenafil Citrate 100 MG eCW1 ([facility]) sildenafil 100 MG Oral Tablet Sildenafil Citrate 100 M G Sildenafil Citrate 100 MG 03/25/2020 12:00:00 AM EDT 1.0 {tablet} activ e Sildenafil Citrate 100 MG eCW1 ([facility]) 300 mg 03/24/2020 12:00:00 AM EDT tablet extended release 24 hr 30 TAKE ONE TABLET BY MOUTH EVERY DAY IN THE MORNING TAKE ONE TABLET BY MOUTH EVERY DAY IN THE MORNING SOLD: 03/25/2020 [facility] 20 mg 03/24/2020 12:00:00 AM [...] Chondr 500 Complex - eCW1 ([facility]) Cyanocobalamin 1000 MCG UNK 02/02/2020 12:00:00 AM EDT 1.0 { tablet} suspended Cyanocobalamin 1000 MCG eCW1 ([facility]) Cephalexin 500 MG Oral Capsule Cephalexin 500 MG 02/02/2020 12:00:0 0 AM EDT 1.0 {capsule} suspended Cephalexin 500 M G eCW1 ([facility]) ammonium lactate 120 MG/ML Topical Cream Ammonium Lact ate 12 % Ammonium Lactate 12 % 02/02/2020 12:00:00 AM EDT 1.0 {application} active Ammonium Lactate 12 % eCW1 ([facility]) Cephalexin 500 MG Oral Capsule Cephalexin 500 MG 02/02/2020 12:00:0 0 AM EDT 1.0 {capsule} suspended Cephalexin 500 M G eCW1 ([facility]) Glucosamine Chondr 500 Complex - Glucosamine Chondr 500 Comp macey - 02/02/2020 12:00:00 AM EDT 1.0 {capsule} suspended Glucosamine Chondr 500 Complex - eCW1 ([facility]) Cephalexin 500 MG Oral Capsule Cephalexin 500 MG 02/02/2020 12:00:0 0 AM EDT 1.0 {capsule} suspended Cephalexin 500 M G eCW1 ([facility]) Cyanocobalamin 1000 MCG UNK 02/02/2020 12:00:00 AM EDT 1.0 { tablet} suspended Cyanocobalamin 1000 MCG eCW1 ([facility]) Cyanocobalamin 1000 MCG UNK 02/02/2020 12:00:00 AM EDT 1.0 { tablet} suspended Cyanocobalamin 1000 MCG eCW1 ([facility]) ammonium lactate 120 MG/ML Topical Cream Ammonium Lact ate 12 % Ammonium Lactate 12 % 02/02/2020 12:00:00 AM EDT 1.0 {application} active Ammonium Lactate 12 % eCW1 ([facility]) Cyanocobalamin 1000 MCG UNK 02/02/2020 12:00:00 AM EDT 1.0 { tablet} active Cyanocobalamin 1000 MCG eCW1 ([facility]) ammonium lactate 120 MG/ML Topical Cream Ammonium Lact ate 12 % Ammonium Lactate 12 % 02/02/2020 12:00:00 AM EDT 1.0 {application} suspended Ammonium Lactate 12 % eCW1 ([facility]) Glucosamine Chondr 500 Complex - Glucosamine Chondr 500 Comp macey - 02/02/2020 12:00:00 AM EDT 1.0 {capsule} suspended Glucosamine Chondr 500 Complex - eCW1 ([facility]) Glucosamine Chondr 500 Complex - Glucosamine Chondr 500 Comp macey - 02/02/2020 12:00:00 AM EDT 1.0 {capsule} suspended Glucosamine Chondr 500 Complex - eCW1 ([facility]) Glucosamine Chondr 500 Complex - Glucosamine Chondr 500 Comp macey - 02/02/2020 12:00:00 AM EDT active 1 capsul e eCW1 ([facility]) Cephalexin 500 MG Oral Capsule Cephalexin 500 MG 02/02/2020 12:00:0 0 AM EDT 1.0 {capsule} suspended Cephalexin 500 M G eCW1 ([facility]) Cephalexin 500 MG Oral Capsule Cephalexin 500 MG 02/02/2020 12:00:0 0 AM EDT 1.0 {capsule} suspended Cephalexin 500 M G eCW1 ([facility]) Glucosamine Chondr 500 Complex - Glucosamine Chondr 500 Comp macey - 02/02/2020 12:00:00 AM EDT 1.0 {capsule} suspended Glucosamine Chondr 500 Complex - eCW1 ([facility]) 500 mg 02/02/2020 12:00:00 AM EDT capsule 20 TAKE ONE CAPSULE BY MOUTH TWICE A DAY TAKE ONE CAPSULE BY MOUTH TWICE A DAY SOLD: 02/03/2020 [facility] Cyanocobalamin 1000 MCG UNK 02/02/2020 12:00:00 AM EDT 1.0 { tablet} suspended Cyanocobalamin 1000 MCG eCW1 ([facility]) Glucosamine Chondr 500 Complex - Glucosamine Chondr 500 Comp macey - 02/02/2020 12:00:00 AM EDT 1.0 {capsule} suspended Glucosamine Chondr 500 Complex - eCW1 ([facility]) ammonium lactate 120 MG/ML Topical Cream Ammonium Lact ate 12 % Ammonium Lactate 12 % 02/02/2020 12:00:00 AM EDT 1.0 {application} suspended Ammonium Lactate 12 % eCW1 ([facility]) Cephalexin 500 MG Oral Capsule Cephalexin 500 MG 02/02/2020 12:00:0 0 AM EDT 1.0 {capsule} active Cephalexin 500 MG eCW1 ([facility]) ammonium lactate 120 MG/ML Topical Cream Ammonium Lact ate 12 % Ammonium Lactate 12 % 02/02/2020 12:00:00 AM EDT 1.0 {application} active Ammonium Lactate 12 % eCW1 ([facility]) Cyanocobalamin 1000 MCG UNK 02/02/2020 12:00:00 AM EDT 1.0 { tablet} active Cyanocobalamin 1000 MCG eCW1 ([facility]) Glucosamine Chondr 500 Complex - Glucosamine Chondr 500 Comp macey - 02/02/2020 12:00:00 AM EDT 1.0 {capsule} suspended Glucosamine Chondr 500 Complex - eCW1 ([facility]) Glucosamine Chondr 500 Complex - Glucosamine Chondr 500 Comp macey - 02/02/2020 12:00:00 AM EDT 1.0 {capsule} active Glucosamine Chondr 500 Complex - eCW1 ([facility]) Cephalexin 500 MG Oral Capsule Cephalexin 500 MG 02/02/2020 12:00:0 0 AM EDT 1.0 {capsule} suspended Cephalexin 500 M G eCW1 ([facility]) Cyanocobalamin 1000 MCG UNK 02/02/2020 12:00:00 AM EDT 1.0 { tablet} suspended Cyanocobalamin 1000 MCG eCW1 ([facility]) Cyanocobalamin 1000 MCG UNK 02/02/2020 12:00:00 AM EDT 1.0 { tablet} suspended Cyanocobalamin 1000 MCG eCW1 ([facility]) Cephalexin 500 MG Oral Capsule Cephalexin 500 MG 02/02/2020 12:00:0 0 AM EDT 1.0 {capsule} suspended Cephalexin 500 M G eCW1 ([facility]) Glucosamine Chondr 500 Complex - Glucosamine Chondr 500 Comp macey - 02/02/2020 12:00:00 AM EDT 1.0 {capsule} suspended Glucosamine Chondr 500 Complex - eCW1 ([facility]) ammonium lactate 120 MG/ML Topical Cream Ammonium Lact ate 12 % Ammonium Lactate 12 % 02/02/2020 12:00:00 AM EDT 1.0 {application} active Ammonium Lactate 12 % eCW1 ([facility]) Cephalexin 500 MG Oral Capsule Cephalexin 500 MG 02/02/2020 12:00:0 0 AM EDT 1.0 {capsule} suspended Cephalexin 500 M G eCW1 ([facility]) ammonium lactate 120 MG/ML Topical Cream Ammonium Lact ate 12 % Ammonium Lactate 12 % 02/02/2020 12:00:00 AM EDT 1.0 {application} active Ammonium Lactate 12 % eCW1 ([facility]) Cephalexin 500 MG Oral Capsule Cephalexin 500 MG 02/02/2020 12:00:0 0 AM EDT 1.0 {capsule} suspended Cephalexin 500 M G eCW1 ([facility]) ammonium lactate 120 MG/ML Topical Cream Ammonium Lact ate 12 % Ammonium Lactate 12 % 02/02/2020 12:00:00 AM EDT 1.0 {application} suspended Ammonium Lactate 12 % eCW1 ([facility]) ammonium lactate 120 MG/ML Topical Cream Ammonium Lact ate 12 % Ammonium Lactate 12 % 02/02/2020 12:00:00 AM EDT active 1 application eCW1 ([facility]) Cyanocobalamin 1000 MCG UNK 02/02/2020 12:00:00 AM EDT 1.0 { tablet} suspended Cyanocobalamin 1000 MCG eCW1 ([facility]) Cyanocobalamin 1000 MCG UNK 02/02/2020 12:00:00 AM EDT 1.0 { tablet} suspended Cyanocobalamin 1000 MCG eCW1 ([facility]) ammonium lactate 120 MG/ML Topical Cream Ammonium Lact ate 12 % Ammonium Lactate 12 % 02/02/2020 12:00:00 AM EDT 1.0 {application} active Ammonium Lactate 12 % eCW1 ([facility]) Glucosamine Chondr 500 Complex - Glucosamine Chondr 500 Comp macey - 02/02/2020 12:00:00 AM EDT 1.0 {capsule} suspended Glucosamine Chondr 500 Complex - eCW1 ([facility]) Cyanocobalamin 1000 MCG UNK 02/02/2020 12:00:00 AM EDT 1.0 { tablet} suspended Cyanocobalamin 1000 MCG eCW1 ([facility]) ammonium lactate 120 MG/ML Topical Cream Ammonium Lact ate 12 % Ammonium Lactate 12 % 02/02/2020 12:00:00 AM EDT 1.0 {application} active Ammonium Lactate 12 % eCW1 ([facility]) ammonium lactate 120 MG/ML Topical Cream Ammonium Lact ate 12 % Ammonium Lactate 12 % 02/02/2020 12:00:00 AM EDT 1.0 {application} suspended Ammonium Lactate 12 % eCW1 ([facility]) Cephalexin 500 MG Oral Capsule Cephalexin 500 MG 02/02/2020 12:00:0 0 AM EDT 1.0 {capsule} suspended Cephalexin 500 M G eCW1 ([facility]) Glucosamine Chondr 500 Complex - Glucosamine Chondr 500 Comp macey - 02/02/2020 12:00:00 AM EDT 1.0 {capsule} suspended Glucosamine Chondr 500 Complex - eCW1 ([facility]) Glucosamine Chondr 500 Complex - Glucosamine Chondr 500 Comp macey - 02/02/2020 12:00:00 AM EDT active 1 capsul e eCW1 ([facility]) Cephalexin 500 MG Oral Capsule Cephalexin 500 MG 02/02/2020 12:00:00 AM EDT active 1 capsule eCW1 ([facility]) ammonium lactate 120 MG/ML Topical Cream Ammonium Lact ate 12 % Ammonium Lactate 12 % 02/02/2020 12:00:00 AM EDT 1.0 {application} active Ammonium Lactate 12 % eCW1 ([facility]) ammonium lactate 120 MG/ML Topical Cream Ammonium Lact ate 12 % Ammonium Lactate 12 % 02/02/2020 12:00:00 AM EDT 1.0 {application} active Ammonium Lactate 12 % eCW1 ([facility]) Cephalexin 500 MG Oral Capsule Cephalexin 500 MG 02/02/2020 12:00:0 0 AM EDT 1.0 {capsule} suspended Cephalexin 500 M G eCW1 ([facility]) Cephalexin 500 MG Oral Capsule Cephalexin 500 MG 02/02/2020 12:00:00 AM EDT active 1 capsule eCW1 ([facility]) Cyanocobalamin 1000 MCG UNK 02/02/2020 12:00:00 AM EDT active 1 tablet eCW1 ([facility]) Cephalexin 500 MG Oral Capsule Cephalexin 500 MG 02/02/2020 12:00:0 0 AM EDT 1.0 {capsule} suspended Cephalexin 500 M G eCW1 ([facility]) Cyanocobalamin 1000 MCG UNK 02/02/2020 12:00:00 AM EDT 1.0 { tablet} suspended Cyanocobalamin 1000 MCG eCW1 ([facility]) Glucosamine Chondr 500 Complex - Glucosamine Chondr 500 Comp macey - 02/02/2020 12:00:00 AM EDT 1.0 {capsule} suspended Glucosamine Chondr 500 Complex - eCW1 ([facility]) Glucosamine Chondr 500 Complex - Glucosamine Chondr 500 Comp macey - 02/02/2020 12:00:00 AM EDT 1.0 {capsule} suspended Glucosamine Chondr 500 Complex - eCW1 ([facility]) Cephalexin 500 MG Oral Capsule Cephalexin 500 MG 02/02/2020 12:00:0 0 AM EDT 1.0 {capsule} suspended Cephalexin 500 M G eCW1 ([facility]) ammonium lactate 120 MG/ML Topical Cream Ammonium Lact ate 12 % Ammonium Lactate 12 % 02/02/2020 12:00:00 AM EDT 1.0 {application} active Ammonium Lactate 12 % eCW1 ([facility]) Cephalexin 500 MG Oral Capsule Cephalexin 500 MG 02/02/2020 12:00:0 0 AM EDT 1.0 {capsule} suspended Cephalexin 500 M G eCW1 ([facility]) Glucosamine Chondr 500 Complex - Glucosamine Chondr 500 Comp macey - 02/02/2020 12:00:00 AM EDT 1.0 {capsule} suspended Glucosamine Chondr 500 Complex - eCW1 ([facility]) Glucosamine Chondr 500 Complex - Glucosamine Chondr 500 Comp macey - 02/02/2020 12:00:00 AM EDT 1.0 {capsule} suspended Glucosamine Chondr 500 Complex - eCW1 ([facility]) Glucosamine Chondr 500 Complex - Glucosamine Chondr 500 Comp macey - 02/02/2020 12:00:00 AM EDT 1.0 {capsule} suspended Glucosamine Chondr 500 Complex - eCW1 ([facility]) Glucosamine Chondr 500 Complex - Glucosamine Chondr 500 Comp macey - 02/02/2020 12:00:00 AM EDT 1.0 {capsule} suspended Glucosamine Chondr 500 Complex - eCW1 ([facility]) Glucosamine Chondr 500 Complex - Glucosamine Chondr 500 Comp macey - 02/02/2020 12:00:00 AM EDT 1.0 {capsule} suspended Glucosamine Chondr 500 Complex - eCW1 ([facility]) ammonium lactate 120 MG/ML Topical Cream Ammonium Lact ate 12 % Ammonium Lactate 12 % 02/02/2020 12:00:00 AM EDT 1.0 {application} active Ammonium Lactate 12 % eCW1 ([facility]) Cephalexin 500 MG Oral Capsule Cephalexin 500 MG 02/02/2020 12:00:0 0 AM EDT 1.0 {capsule} suspended Cephalexin 500 M G eCW1 ([facility]) ammonium lactate 120 MG/ML Topical Cream Ammonium Lact ate 12 % Ammonium Lactate 12 % 02/02/2020 12:00:00 AM EDT active 1 application eCW1 ([facility]) ammonium lactate 120 MG/ML Topical Cream Ammonium Lact ate 12 % Ammonium Lactate 12 % 02/02/2020 12:00:00 AM EDT 1.0 {application} active Ammonium Lactate 12 % eCW1 ([facility]) Cyanocobalamin 1000 MCG UNK 02/02/2020 12:00:00 AM EDT 1.0 { tablet} suspended Cyanocobalamin 1000 MCG eCW1 ([facility]) Cyanocobalamin 1000 MCG UNK 02/02/2020 12:00:00 AM EDT 1.0 { tablet} suspended Cyanocobalamin 1000 MCG eCW1 ([facility]) ammonium lactate 120 MG/ML Topical Cream Ammonium Lact ate 12 % Ammonium Lactate 12 % 02/02/2020 12:00:00 AM EDT 1.0 {application} active Ammonium Lactate 12 % eCW1 ([facility]) Cephalexin 500 MG Oral Capsule Cephalexin 500 MG 02/02/2020 12:00:0 0 AM EDT 1.0 {capsule} suspended Cephalexin 500 M G eCW1 ([facility]) ammonium lactate 120 MG/ML Topical Cream Ammonium Lact ate 12 % Ammonium Lactate 12 % 02/02/2020 12:00:00 AM EDT 1.0 {application} active Ammonium Lactate 12 % eCW1 ([facility]) Cephalexin 500 MG Oral Capsule Cephalexin 500 MG 02/02/2020 12:00:0 0 AM EDT 1.0 {capsule} active Cephalexin 500 MG eCW1 ([facility]) Cyanocobalamin 1000 MCG UNK 02/02/2020 12:00:00 AM EDT 1.0 { tablet} suspended Cyanocobalamin 1000 MCG eCW1 ([facility]) ammonium lactate 120 MG/ML Topical Cream Ammonium Lact ate 12 % Ammonium Lactate 12 % 02/02/2020 12:00:00 AM EDT 1.0 {application} suspended Ammonium Lactate 12 % eCW1 ([facility]) Cyanocobalamin 1000 MCG UNK 02/02/2020 12:00:00 AM EDT 1.0 { tablet} suspended Cyanocobalamin 1000 MCG eCW1 ([facility]) Glucosamine Chondr 500 Complex - Glucosamine Chondr 500 Comp macey - 02/02/2020 12:00:00 AM EDT 1.0 {capsule} active Glucosamine Chondr 500 Complex - eCW1 ([facility]) Cyanocobalamin 1000 MCG UNK 02/02/2020 12:00:00 AM EDT 1.0 { tablet} suspended Cyanocobalamin 1000 MCG eCW1 ([facility]) Cephalexin 500 MG Oral Capsule Cephalexin 500 MG 02/02/2020 12:00:0 0 AM EDT 1.0 {capsule} suspended Cephalexin 500 M G eCW1 ([facility]) Cephalexin 500 MG Oral Capsule Cephalexin 500 MG 02/02/2020 12:00:0 0 AM EDT 1.0 {capsule} suspended Cephalexin 500 M G eCW1 ([facility]) ammonium lactate 120 MG/ML Topical Cream Ammonium Lact ate 12 % Ammonium Lactate 12 % 02/02/2020 12:00:00 AM EDT 1.0 {application} active Ammonium Lactate 12 % eCW1 ([facility]) Glucosamine Chondr 500 Complex - Glucosamine Chondr 500 Comp macey - 02/02/2020 12:00:00 AM EDT 1.0 {capsule} suspended Glucosamine Chondr 500 Complex - eCW1 ([facility]) Cyanocobalamin 1000 MCG UNK 02/02/2020 12:00:00 AM EDT 1.0 { tablet} suspended Cyanocobalamin 1000 MCG eCW1 ([facility]) Cephalexin 500 MG Oral Capsule Cephalexin 500 MG 02/02/2020 12:00:0 0 AM EDT 1.0 {capsule} suspended Cephalexin 500 M G eCW1 ([facility]) Cephalexin 500 MG Oral Capsule Cephalexin 500 MG 02/02/2020 12:00:0 0 AM EDT 1.0 {capsule} suspended Cephalexin 500 M G eCW1 ([facility]) Glucosamine Chondr 500 Complex - Glucosamine Chondr 500 Comp macey - 02/02/2020 12:00:00 AM EDT 1.0 {capsule} suspended Glucosamine Chondr 500 Complex - eCW1 ([facility]) Glucosamine Chondr 500 Complex - Glucosamine Chondr 500 Comp macey - 02/02/2020 12:00:00 AM EDT 1.0 {capsule} suspended Glucosamine Chondr 500 Complex - eCW1 ([facility]) Cyanocobalamin 1000 MCG UNK 02/02/2020 12:00:00 AM EDT 1.0 { tablet} suspended Cyanocobalamin 1000 MCG eCW1 ([facility]) Glucosamine Chondr 500 Complex - Glucosamine Chondr 500 Comp macey - 02/02/2020 12:00:00 AM EDT 1.0 {capsule} suspended Glucosamine Chondr 500 Complex - eCW1 ([facility]) ammonium lactate 120 MG/ML Topical Cream Ammonium Lact ate 12 % Ammonium Lactate 12 % 02/02/2020 12:00:00 AM EDT 1.0 {application} active Ammonium Lactate 12 % eCW1 ([facility]) Cephalexin 500 MG Oral Capsule Cephalexin 500 MG 02/02/2020 12:00:0 0 AM EDT 1.0 {capsule} suspended Cephalexin 500 M G eCW1 ([facility]) Cyanocobalamin 1000 MCG UNK 02/02/2020 12:00:00 AM EDT 1.0 { tablet} suspended Cyanocobalamin 1000 MCG eCW1 ([facility]) Cyanocobalamin 1000 MCG UNK 02/02/2020 12:00:00 AM EDT 1.0 { tablet} suspended Cyanocobalamin 1000 MCG eCW1 ([facility]) Cyanocobalamin 1000 MCG UNK 02/02/2020 12:00:00 AM EDT active 1 tablet eCW1 ([facility]) Glucosamine Chondr 500 Complex - Glucosamine Chondr 500 Comp macey - 02/02/2020 12:00:00 AM EDT 1.0 {capsule} suspended Glucosamine Chondr 500 Complex - eCW1 ([facility]) Cephalexin 500 MG Oral Capsule Cephalexin 500 MG 02/02/2020 12:00:0 0 AM EDT 1.0 {capsule} suspended Cephalexin 500 M G eCW1 ([facility]) Cyanocobalamin 1000 MCG UNK 02/02/2020 12:00:00 AM EDT 1.0 { tablet} suspended Cyanocobalamin 1000 MCG eCW1 ([facility]) Cyanocobalamin 1000 MCG UNK 02/02/2020 12:00:00 AM EDT 1.0 { tablet} suspended Cyanocobalamin 1000 MCG eCW1 ([facility]) Glucosamine Chondr 500 Complex - Glucosamine Chondr 500 Comp macey - 02/02/2020 12:00:00 AM EDT 1.0 {capsule} suspended Glucosamine Chondr 500 Complex - eCW1 ([facility]) ammonium lactate 120 MG/ML Topical Cream Ammonium Lact ate 12 % Ammonium Lactate 12 % 02/02/2020 12:00:00 AM EDT 1.0 {application} suspended Ammonium Lactate 12 % eCW1 ([facility]) ammonium lactate 120 MG/ML Topical Cream Ammonium Lact ate 12 % Ammonium Lactate 12 % 02/02/2020 12:00:00 AM EDT 1.0 {application} active Ammonium Lactate 12 % eCW1 ([facility]) Cyanocobalamin 1000 MCG UNK 02/02/2020 12:00:00 AM EDT 1.0 { tablet} suspended Cyanocobalamin 1000 MCG eCW1 ([facility]) Cephalexin 500 MG Oral Capsule Cephalexin 500 MG 02/02/2020 12:00:0 0 AM EDT 1.0 {capsule} suspended Cephalexin 500 M G eCW1 ([facility]) Cyanocobalamin 1000 MCG UNK 02/02/2020 12:00:00 AM EDT 1.0 { tablet} suspended Cyanocobalamin 1000 MCG eCW1 ([facility]) ammonium lactate 120 MG/ML Topical Cream Ammonium Lact ate 12 % Ammonium Lactate 12 % 02/02/2020 12:00:00 AM EDT 1.0 {application} active Ammonium Lactate 12 % eCW1 ([facility]) ammonium lactate 120 MG/ML Topical Cream Ammonium Lact ate 12 % Ammonium Lactate 12 % 02/02/2020 12:00:00 AM EDT 1.0 {application} active Ammonium Lactate 12 % eCW1 ([facility]) 600 mg 01/15/2020 12:00:00 AM [...] [place] 11/13 12:00:00 AM EST active MEDENT ([facility]) 0.77 % 11/12/2019 12:00:00 AM EST cream 90 APPLY TOPICALLY THREE TIMES A DAY APPLY TOPICALLY THREE TIMES A DAY SOLD: 03/10/2020 [facility] ciclopirox 7.7 MG/ML Topical Cream [Loprox] Loprox 0.77 % Lo prox 0.77 % 11/12/2019 12:00:00 AM EST 1.0 {application} higinio pended Loprox 0.77 % eCW1 ([facility]) ciclopirox 7.7 MG/ML Topical Cream [Loprox] Loprox 0.77 % Lo prox 0.77 % 11/12/2019 12:00:00 AM EST 1.0 {application} higinio pended Loprox 0.77 % eCW1 ([facility]) ciclopirox 7.7 MG/ML Topical Cream [Loprox] Loprox 0.77 % Lo prox 0.77 % 11/12/2019 12:00:00 AM EST 1.0 {application} higinio pended Loprox 0.77 % eCW1 ([facility]) ciclopirox 7.7 MG/ML Topical Cream [Loprox] Loprox 0.77 % Lo prox 0.77 % 11/12/2019 12:00:00 AM EST 1.0 {application} higinio pended Loprox 0.77 % eCW1 ([facility]) 0.77 % 11/12/2019 12:00:00 AM EST cream 90 APPLY TOPICALLY THREE TIMES A DAY APPLY TOPICALLY THREE TIMES A DAY SOLD: 11/13/2019 [facility] ciclopirox 7.7 MG/ML Topical Cream [Loprox] Loprox 0.77 % Lo prox 0.77 % 11/12/2019 12:00:00 AM EST 1.0 {application} higinio pended Loprox 0.77 % eCW1 ([facility]) ciclopirox 7.7 MG/ML Topical Cream [Loprox] Loprox 0.77 % Lo prox 0.77 % 11/12/2019 12:00:00 AM EST 1.0 {application} higinio pended Loprox 0.77 % eCW1 ([facility]) ciclopirox 7.7 MG/ML Topical Cream [Loprox] Loprox 0.77 % Lo prox 0.77 % 11/12/2019 12:00:00 AM EST 1.0 {application} active Loprox 0.77 % eCW1 ([facility]) ciclopirox 7.7 MG/ML Topical Cream [Loprox] Loprox 0.77 % Lo prox 0.77 % 11/12/2019 12:00:00 AM EST 1.0 {application} higinio pended Loprox 0.77 % eCW1 ([facility]) ciclopirox 7.7 MG/ML Topical Cream [Loprox] Loprox 0.77 % Lo prox 0.77 % 11/12/2019 12:00:00 AM EST 1.0 {application} higinio pended Loprox 0.77 % eCW1 ([facility]) ciclopirox 7.7 MG/ML Topical Cream [Loprox] Loprox 0.77 % Lo prox 0.77 % 11/12/2019 12:00:00 AM EST 1.0 {application} higinio pended Loprox 0.77 % eCW1 ([facility]) ciclopirox 7.7 MG/ML Topical Cream [Loprox] Loprox 0.77 % Lo prox 0.77 % 11/12/2019 12:00:00 AM EST 1.0 {application} higinio pended Loprox 0.77 % eCW1 ([facility]) ciclopirox 7.7 MG/ML Topical Cream [Loprox] Loprox 0.77 % Lo prox 0.77 % 11/12/2019 12:00:00 AM EST 1.0 {application} higinio pended Loprox 0.77 % eCW1 ([facility]) ciclopirox 7.7 MG/ML Topical Cream [Loprox] Loprox 0.77 % Lo prox 0.77 % 11/12/2019 12:00:00 AM EST 1.0 {application} higinio pended Loprox 0.77 % eCW1 ([facility]) ciclopirox 7.7 MG/ML Topical Cream [Loprox] Loprox 0.77 % Lo prox 0.77 % 11/12/2019 12:00:00 AM EST 1.0 {application} higinio pended Loprox 0.77 % eCW1 ([facility]) 0.77 % 11/12/2019 12:00:00 AM EST cream 90 APPLY TOPICALLY THREE TIMES A DAY APPLY TOPICALLY THREE TIMES A DAY SOLD: 01/04/2020 [facility] ciclopirox 7.7 MG/ML Topical Cream [Loprox] Loprox 0.77 % Lo prox 0.77 % 11/12/2019 12:00:00 AM EST 1.0 {application} higinio pended Loprox 0.77 % eCW1 ([facility]) ciclopirox 7.7 MG/ML Topical Cream [Loprox] Loprox 0.77 % Lo prox 0.77 % 11/12/2019 12:00:00 AM EST 1.0 {application} higinio pended Loprox 0.77 % eCW1 ([facility]) ciclopirox 7.7 MG/ML Topical Cream [Loprox] Loprox 0.77 % Lo prox 0.77 % 11/12/2019 12:00:00 AM EST 1.0 {application} higinio pended Loprox 0.77 % eCW1 ([facility]) ciclopirox 7.7 MG/ML Topical Cream [Loprox] Loprox 0.77 % Lo prox 0.77 % 11/12/2019 12:00:00 AM EST 1.0 {application} higinio pended Loprox 0.77 % eCW1 ([facility]) ciclopirox 7.7 MG/ML Topical Cream [Loprox] Loprox 0.77 % Lo prox 0.77 % 11/12/2019 12:00:00 AM EST 1.0 {application} higinio pended Loprox 0.77 % eCW1 ([facility]) ciclopirox 7.7 MG/ML Topical Cream [Loprox] Loprox 0.77 % Lo prox 0.77 % 11/12/2019 12:00:00 AM EST 1.0 {application} higinio pended Loprox 0.77 % eCW1 ([facility]) ciclopirox 7.7 MG/ML Topical Cream [Loprox] Loprox 0.77 % Lo prox 0.77 % 11/12/2019 12:00:00 AM EST 1.0 {application} higinio pended Loprox 0.77 % eCW1 ([facility]) ciclopirox 7.7 MG/ML Topical Cream [Loprox] Loprox 0.77 % Lo prox 0.77 % 11/12/2019 12:00:00 AM EST 1.0 {application} active Loprox 0.77 % eCW1 ([facility]) ciclopirox 7.7 MG/ML Topical Cream [Loprox] Loprox 0.77 % Lo prox 0.77 % 11/12/2019 12:00:00 AM EST active 1 application eCW1 ([facility]) ciclopirox 7.7 MG/ML Topical Cream [Loprox] Loprox 0.77 % Lo prox 0.77 % 11/12/2019 12:00:00 AM EST active 1 application eCW1 ([facility]) ciclopirox 7.7 MG/ML Topical Cream [Loprox] Loprox 0.77 % Lo prox 0.77 % 11/12/2019 12:00:00 AM EST 1.0 {application} higinio pended Loprox 0.77 % eCW1 ([facility]) ciclopirox 7.7 MG/ML Topical Cream [Loprox] Loprox 0.77 % Lo prox 0.77 % 11/12/2019 12:00:00 AM EST 1.0 {application} higinio pended Loprox 0.77 % eCW1 ([facility]) ciclopirox 7.7 MG/ML Topical Cream [Loprox] Loprox 0.77 % Lo prox 0.77 % 11/12/2019 12:00:00 AM EST 1.0 {application} higinio pended Loprox 0.77 % eCW1 ([facility]) 325 mg (65 mg iron) [...] (65 Fe) MG e CW1 ([facility]) ferrous sulfate 325 MG Oral Tablet Ferrous Sulfate 325 (65 Fe) MG Ferrous Sulfate 325 (65 Fe) MG 11/06/2019 12:00:00 AM EST 1.0 {tablet} suspended Ferrous Sulfate 325 (65 Fe) MG e CW1 ([facility]) ferrous sulfate 325 MG Oral Tablet Ferrous Sulfate 325 (65 Fe) MG Ferrous Sulfate 325 (65 Fe) MG 11/06/2019 12:00:00 AM EST 1.0 {tablet} suspended Ferrous Sulfate 325 (65 Fe) MG e CW1 ([facility]) ferrous sulfate 325 MG Oral Tablet Ferrous Sulfate 325 (65 Fe) MG Ferrous Sulfate 325 (65 Fe) MG 11/06/2019 12:00:00 AM EST 1.0 {tablet} suspended Ferrous Sulfate 325 (65 Fe) MG e CW1 ([facility]) ferrous sulfate 325 MG Oral Tablet Ferrous Sulfate 325 (65 Fe) MG Ferrous Sulfate 325 (65 Fe) MG 11/06/2019 12:00:00 AM EST 1.0 {tablet} suspended Ferrous Sulfate 325 (65 Fe) MG e CW1 ([facility]) ferrous sulfate 325 MG Oral Tablet Ferrous Sulfate 325 (65 Fe) MG Ferrous Sulfate 325 (65 Fe) MG 11/06/2019 12:00:00 AM EST 1.0 {tablet} suspended Ferrous Sulfate 325 (65 Fe) MG e 1 ([facility]) ferrous sulfate 325 MG Oral Tablet Ferrous Sulfate 325 (65 Fe) MG Ferrous Sulfate 325 (65 Fe) MG 11/06/2019 12:00:00 AM EST 1.0 {tablet} active Ferrous Sulfate 325 (65 Fe) MG eCW1 ([facility]) ferrous sulfate 325 MG Oral Tablet Ferrous Sulfate 325 (65 Fe) MG Ferrous Sulfate 325 (65 Fe) MG 11/06/2019 12:00:00 AM EST 1.0 {tablet} active Ferrous Sulfate 325 (65 Fe) MG eCW1 ([facility]) ferrous sulfate 325 MG Oral Tablet Ferrous Sulfate 325 (65 Fe) MG Ferrous Sulfate 325 (65 Fe) MG 11/06/2019 12:00:00 AM EST 1.0 {tablet} suspended Ferrous Sulfate 325 (65 Fe) MG e 1 ([facility]) ferrous sulfate 325 MG Oral Tablet Ferrous Sulfate 325 (65 Fe) MG Ferrous Sulfate 325 (65 Fe) MG 11/06/2019 12:00:00 AM EST 1.0 {tablet} suspended Ferrous Sulfate 325 (65 Fe) MG e 1 ([facility]) ferrous sulfate 325 MG Oral Tablet Ferrous Sulfate 325 (65 Fe) MG Ferrous Sulfate 325 (65 Fe) MG 11/06/2019 12:00:00 AM EST 1.0 {tablet} suspended Ferrous Sulfate 325 (65 Fe) MG e CW1 ([facility]) ferrous sulfate 325 MG Oral Tablet Ferrous Sulfate 325 (65 Fe) MG Ferrous Sulfate 325 (65 Fe) MG 11/06/2019 12:00:00 AM EST 1.0 {tablet} suspended Ferrous Sulfate 325 (65 Fe) MG e 1 ([facility]) ferrous sulfate 325 MG Oral Tablet Ferrous Sulfate 325 (65 Fe) MG Ferrous Sulfate 325 (65 Fe) MG 11/06/2019 12:00:00 AM EST 1.0 {tablet} suspended Ferrous Sulfate 325 (65 Fe) MG e 1 ([facility]) ferrous sulfate 325 MG Oral Tablet Ferrous Sulfate 325 (65 Fe) MG Ferrous Sulfate 325 (65 Fe) MG 11/06/2019 12:00:00 AM EST 1.0 {tablet} suspended Ferrous Sulfate 325 (65 Fe) MG e 1 ([facility]) ferrous sulfate 325 MG Oral Tablet Ferrous Sulfate 325 (65 Fe) MG Ferrous Sulfate 325 (65 Fe) MG 11/06/2019 12:00:00 AM EST 1.0 {tablet} suspended Ferrous Sulfate 325 (65 Fe) MG e 1 ([facility]) ferrous sulfate 325 MG Oral Tablet Ferrous Sulfate 325 (65 Fe) MG Ferrous Sulfate 325 (65 Fe) MG 11/06/2019 12:00:00 AM EST 1.0 {tablet} suspended Ferrous Sulfate 325 (65 Fe) MG e 1 ([facility]) ferrous sulfate 325 MG Oral Tablet Ferrous Sulfate 325 (65 Fe) MG Ferrous Sulfate 325 (65 Fe) MG 11/06/2019 12:00:00 AM EST 1.0 {tablet} suspended Ferrous Sulfate 325 (65 Fe) MG e 1 ([facility]) ferrous sulfate 325 MG Oral Tablet Ferrous Sulfate 325 (65 Fe) MG Ferrous Sulfate 325 (65 Fe) MG 11/06/2019 12:00:00 AM EST active 1 tablet eCW1 ([facility]) ferrous sulfate 325 MG Oral Tablet Ferrous Sulfate 325 (65 Fe) MG Ferrous Sulfate 325 (65 Fe) MG 11/06/2019 12:00:00 AM EST 1.0 {tablet} suspended Ferrous Sulfate 325 (65 Fe) MG e 1 ([facility]) ferrous sulfate 325 MG Oral Tablet Ferrous Sulfate 325 (65 Fe) MG Ferrous Sulfate 325 (65 Fe) MG 11/06/2019 12:00:00 AM EST 1.0 {tablet} suspended Ferrous Sulfate 325 (65 Fe) MG e 1 ([facility]) ferrous sulfate 325 MG Oral Tablet Ferrous Sulfate 325 (65 Fe) MG Ferrous Sulfate 325 (65 Fe) MG 11/06/2019 12:00:00 AM EST 1.0 {tablet} suspended Ferrous Sulfate 325 (65 Fe) MG e 1 ([facility]) ferrous sulfate 325 MG Oral Tablet Ferrous Sulfate 325 (65 Fe) MG Ferrous Sulfate 325 (65 Fe) MG 11/06/2019 12:00:00 AM EST 1.0 {tablet} suspended Ferrous Sulfate 325 (65 Fe) MG e 1 ([facility]) ferrous sulfate 325 MG Oral Tablet Ferrous Sulfate 325 (65 Fe) MG Ferrous Sulfate 325 (65 Fe) MG 11/06/2019 12:00:00 AM EST 1.0 {tablet} suspended Ferrous Sulfate 325 (65 Fe) MG e 1 ([facility]) ferrous sulfate 325 MG Oral Tablet Ferrous Sulfate 325 (65 Fe) MG Ferrous Sulfate 325 (65 Fe) MG 11/06/2019 12:00:00 AM EST active 1 tablet eCW1 ([facility]) ferrous sulfate 325 MG Oral Tablet Ferrous Sulfate 325 (65 Fe) MG Ferrous Sulfate 325 (65 Fe) MG 11/06/2019 12:00:00 AM EST 1.0 {tablet} suspended Ferrous Sulfate 325 (65 Fe) MG e 1 ([facility]) ferrous sulfate 325 MG Oral Tablet Ferrous Sulfate 325 (65 Fe) MG Ferrous Sulfate 325 (65 Fe) MG 11/06/2019 12:00:00 AM EST 1.0 {tablet} suspended Ferrous Sulfate 325 (65 Fe) MG e 1 ([facility]) ferrous sulfate 325 MG Oral Tablet Ferrous Sulfate 325 (65 Fe) MG Ferrous Sulfate 325 (65 Fe) MG 11/06/2019 12:00:00 AM EST 1.0 {tablet} suspended Ferrous Sulfate 325 (65 Fe) MG e 1 ([facility]) ferrous sulfate 325 MG Oral Tablet Ferrous Sulfate 325 (65 Fe) MG Ferrous Sulfate 325 (65 Fe) MG 11/06/2019 12:00:00 AM EST active 1 tablet eCW1 ([facility]) 20 mg 10/27/2019 12:00:00 AM [...] type / Coverage type Policy ID Covered libertarian ID Covered libertarian's relationship to veloz Policy Veloz Plan Information MEDICARE [id number] SP [id number] [facility] [id number] SP [id number] MCRB [id number] S [id number] R [id number] S [id number] MEDICARE [id number] S [id number] MEDICARE -SWING BED [id number] 18 [id number] MEDICARE PART A -I/P [id number] 18 [id number] MEDICARE PART A -O/P [id number] 18 [id number] UMR -O/P [id number] 18 [id number] MEDICARE [id number] S [id number] MCRB [id number] S [id number] E67 [facility] [id number] SP [id number] [facility] [id number] SP [id number] [facility] OPTIONS [id number] SP [id number] UMR O [id number] S [id number] MEDICARE C [id number] S [id number] Umr (pr) Medigap Part B [id number] Self [id number] [place] [id number] Self [id number] [place] (pr) Medigap Part B [id number] Self [id number] Medicare Dme Medigap Part B [id number] Self [id number] Medicare Medicare Primary [id number] Self [id number] Umr Commercial [id number] Self [id number] Umr (pr) Medigap Part B [id number] Self [id number] [place] Primary [id number] Self [id number] ANSI-Commercial [id number] ANSI-Medicare Part B [id number] Medicare Dme Medigap Part B [id number] Self [id number] Medicare Medicare Primary [id number] Self [id number] Umr (pr) Medigap Part B [id number] Self [id number] [place] Primary [id number] Self [id number] ANSI-Commercial [id number] ANSI-Medicare Part B [id number] [place] Primary [id number] Self [id number] Umr (pr) Medigap Part B [id number] Self [id number] [place] (pr) Medigap Part B [id number] Self [id number] Medicare Dme Medigap Part B [id number] Self [id number] Medicare Medicare Primary [id number] Self [id number] Umr (pr) Medigap Part B [id number] Self [id number] [facility] Primary [id number] Self [id number] Medicare [facility] Medicare Primary [id number] Self [id number] Medicare Medigap Part B [id number] Self [id number] Medicare Dme Medicare Primary [id number] Self [id number] Medicare Dme Medigap Part B [id number] Self [id number] Medicare Medicare Primary [id number] Self [id number] [place] Medigap Part B [id number] Self [id number] ANSI-Medicare Part B [id number] ANSI-Commercial [id number] Medicare Dme Medigap Part B [id number] Self [id number] Medicare Medicare Primary [id number] Self [id number] UMR [facility] [id number] SP [id number] MEDICARE [id number] ANSI-Medicare Part B [id number] ANSI-Commercial [id number] ANSI-Commercial [id number] ANSI-Medicare Part B [id number] (pr) Medigap Part B [id number] Self [id number] [place] [id number] Self [id number] Medicare Dme Medigap Part B [id number] Self [id number] Medicare Medicare Primary [id number] Self [id number] ANSI-Medicare Part B [id number] ANSI-Commercial [id number] Medicare Dme Medigap Part B [id number] Self [id number] Medicare Medicare Primary [id number] Self [id number] Medicare Dme Medigap Part B [id number] Self [id number] Medicare Medicare Primary [id number] Self [id number] Medicare Dme Medigap Part B [id number] Self [id number] Medicare Medicare Primary [id number] Self [id number] Medicare Dme Medigap Part B [id number] Self [id number] Medicare Medicare Primary [id number] Self [id number] [facility] [id number] SP [id number] MEDICARE [id number] SP [id number] MEDICARE [id number] SP [id number] Umr Medigap Part B [id number] Self [id number] [place] Medigap Part B [id number] Self [id number] [place] Primary [id number] Self [id number] Medicare Dme Medigap Part B [id number] Self [id number] Medicare Medicare Primary [id number] Self [id number] Medicare Dme Medigap Part B [id number] Self [id number] Medicare Medicare Primary [id number] Self [id number] ANSI-Medicare Part B [id number] ANSI-Commercial [id number] Medicare Dme Medigap Part B [id number] Self [id number] Medicare Medicare Primary [id number] Self [id number] MEDICARE [id number] Medicare Dme Medigap Part B [id number] Self [id number] Medicare Medicare Primary [id number] Self [id number] ANSI-Medicare Part B [id number] ANSI-Commercial [id number] [place] [facility] Ppo Medigap Part B [id number] Self [id number] Umr Medigap Part B [id number] Self [id number] Medicare (Part B) Medicare Primary [id number] Self [id number] [place] [facility] [employer] [facility] Medigap Part B [id number] Self [id number] [place] [facility] Ppo Medigap Part B [id number] Self [id number] Umr Medigap Part B [id number] Self [id number] Medicare (Part B) Medicare Primary [id number] Self [id number] ANSI-Medicare Part B [id number] ANSI-Commercial [id number] Medicare Dme Medigap Part B [id number] Self [id number] Medicare Medicare Primary [id number] Self [id number] Medicare Dme Medigap Part B [id number] Self [id number] Medicare Medicare Primary [id number] Self [id number] ANSI-Medicare Part B [id number] ANSI-Commercial [id number] ANSI-Commercial [id number] ANSI-Medicare Part B [id number] Medicare Dme Medigap Part B [id number] Self [id number] Medicare Medicare Primary [id number] Self [id number] Medicare Dme Medigap Part B [id number] Self [id number] Medicare Medicare Primary [id number] Self [id number] Medicare Dme Medigap Part B [id number] Self [id number] Medicare Medicare Primary [id number] Self [id number] Medicare Dme Medigap Part B [id number] Self [id number] Medicare Medicare Primary [id number] Self 9 [id number] Medicare Dme Medigap Part B [id number] Self [id number] Medicare Medicare Primary [id number] Self [id number] ANSI-[employer] [id number] ANSMedicare Part B [id number] Umr (pr) Medigap Part B [id number] Self [id number] 7646 [place] [id number] Self [id number] Medicare Dme Medigap Part B [id number] Self [id number] Medicare Medicare Primary [id number] Self [id number] Medicare Dme Medigap Part B [id number] Self [id number] Medicare Medicare Primary [id number] Self [id number] [place] Primary [id number] Self [id number] ANS-Medicare Part B [id number] ANSI-Commercial [id number] Umr (pr) Medigap Part B [id number] Self Y1946 7646 [place] Primary [id number] Self [id number] ANSI-Commercial [id number] ANSI-Medicare Part B [id number] ANSI-Medicare Part B [id number] ANSI-Commercial [id number] Umr (pr) Medigap Part B [id number] Self Y1946 7646 [place] Primary [id number] Self [id number] Umr (pr) Medigap Part B [id number] Self Y1946 7646 [place] Primary [id number] Self [id number] Medicare Dme Medigap Part B [id number] Self 0 [id number] Medicare Medicare Primary [id number] Self 09 [id number] [place] Medigap Part B [id number] Self [id number] UMR O [id number] S [id number] MEDICARE C [id number] S [id number] A ANSI-Commercial [id number] ANSI-Medicare Part B [id number] Umr (pr) Medigap Part B [id number] Self Y1946 7646 [place] Primary [id number] Self [id number] ANSI-Commercial [id number] ANSI-Medicare Part B [id number] [facility]-Medicare Part B [id number] ANSI-Commercial [id number] [facility] Ppo Medigap Part B [id number] Self [id number] Umr Medigap Part B [id number] Self [id number] Medicare (Part B) Medicare Primary [id number] Self [id number] ANSI-Medicare Part B [id number] ANSI-Commercial [id number] [facility] [id number] SP [id number] Umr (pr) Medigap Part B [id number] Self Y1946 7646 [place] Primary [id number] Self [id number] UMR [facility] CARE [id number] SP [id number] UMR [facility] [id number] SP [id number] Umr (pr) [facility] Part B [id number] Self [id number] [place] Primary [id number] Self [id number] [employer] PPO O [id number] S [id number] [place] (pr) Medigap Part B [id number] Self [id number] Medicare [facility] Medicare Primary [id number] Self [id number] [facility] [id number] SP [id number] Medicare [facility] Medicare Primary [id number] Self [id number] [place] (pr) Medigap Part B [id number] Self [id number] Medicare Dme Medigap Part B [id number] Self 0 [id number] Medicare Medicare Primary [id number] Self 09 [id number] Medicare Dme Medigap Part B [id number] Self 0 [id number] Medicare Medicare Primary [id number] Self 09 [id number] Medicare Dme Medigap Part B [id number] Self 0 [id number] Medicare Medicare Primary [id number] Self 09 [id number] Medicare [facility] Medicare Primary [id number] Self [id number] [facility] Ppo Medigap Part B [id number] Self [id number] Medicare (Part B) Medicare Primary [id number] Self [id number] Medicare [facility] Medicare Primary [id number] Self [id number] Medicare [facility] Medicare Primary [id number] Self [id number] [place] (pr) Medigap Part B [id number] Self [id number] Medicare Dme Medigap Part B [id number] Self 0 [id number] Medicare Medicare Primary [id number] Self 09 [id number] Medicare [facility] Medicare Primary [id number] Self [id number] Medicare [facility] Medicare Primary [id number] Self [id number] Medicare [facility] Medicare Primary [id number] Self [id number] Medicare Dme Medigap Part B [id number] Self 0 [id number] Medicare Medicare Primary [id number] Self 09 [id number] [place] Primary [id number] Self [id number] Medicare [facility] Medicare Primary [id number] Self [id number] Medicare Dme Medigap Part B [id number] Self 0 [id number] Medicare Medicare Primary [id number] Self 09 [id number] [facility] Ppo Medigap Part B [id number] Self [id number] Medicare (Part B) Medicare Primary [id number] Self [id number] Medicare [facility] Medicare Primary [id number] Self [id number] Medicare Dme Medigap Part B [id number] Self 0 [id number] Medicare Medicare Primary [id number] Self 09 [id number] [place] Primary [id number] Self [id number] Medicare Dme Medigap Part B [id number] Self 0 [id number] Medicare Medicare Primary [id number] Self 09 [id number] [place] Primary [id number] Self [id number] [place] Primary [id number] Self [id number] Medicare Dme Medicare Primary Self Medicare Medicare Primary Self [employer] Commercial Self Medicare [facility] Medicare Primary Self [place] (pr) Commercial Self [employer] [id number] SP [id number] [facility] Ppo Medigap Part B Self Medicare (Part B) Medicare Primary Self [place] [facility] Medigap Part B Self [facility] [id number] SP [id number] [place] Medigap Part B [place] Medicare Primary Self [facility] [id number] SP [id number] [facility] [id number] SP [id number] [employer] Commercial Self Medicare [facility] Medicare Primary Self [facility] [id number] SP [id number] [place] Medigap Part B Self [facility] [id number] SP [id number] MEDICARE A [id number] Self [id number] A [facility] [id number] SP [id number] [facility] U [id number] Self [id number] ALLSTATE E [id number] Self [id number] [place]/[facility] Medigap Part B Self Medicare Medicare Primary Self ALLSTATE INS CO NO FAULT [id number] SP [id number] [employer] PPO P [id number] S [id number] [facility] [id number] 18 [id number] ALLSTATE O [id number] S [id number] [employer] O [id number] S [id number] ALLSTATE O [id number] S [id number] Problems, Conditions, and Diagnoses Code Display Name Description Problem Type Effective Dates Data Source(s) R29.6 [id number] Frequent falls Problem 10/19/2020 12:00:00 A M JOSE ALBERTO eCW1 ([facility]) [id number] Onychomycosis Onychomycosis Problem 08/17/2020 12:00:00 AM EDT MEDENT ([facility] L97.423 [id number] Non-pressure chronic ulcer of left heel and midfoot with necrosis of muscle Problem 07/21/2020 12:00:00 AM EDT eCW1 ([facility]) E11.621 [id number] Type 2 diabetes mellitus with foot ulcer Problem 07/21/2020 12:00:00 AM EDT eCW1 ([facility]) Pressure ulcer of other site, [...] AM EDT MEDENT ([facility] [id number] Onychomycosis Onychomycosis Problem 04/20/2020 12 :00:00 AM EDT - 05/13/2020 12:00:00 AM EDT MED[facility] ([facility] Pressure ulcer of other site, stage 2 Pressure u lcer of other site, stage 2 Problem 04/20/2020 12:00:00 AM EDT - 05/13/2020 12:00:00 AM ED T MED[facility] ([facility] N48.1 [id number] Balanitis Problem 11/12/2019 12:00:00 AM ES T eCW1 ([facility]) Z00.00 [id number] Medicare annual wellness visit, subsequen t Problem 11/12/2019 12:00:00 AM EST eCW1 ([facility]) N48.1 05940410 Balanitis Problem 11/12/2019 12:00:00 AM ES T eCW1 ([facility]) Z00.00 [id number] Medicare annual wellness visit, subsequen t Problem 11/12/2019 12:00:00 AM EST eCW1 ([facility]) [id number] Type 2 diabetes mellitus with ulcer Type 2 diabetes mellitus with ulcer Problem 11/07/2019 12:00:00 AM EST [facility] ([facility] Pressure ulcer of other site, stage 1 Pressure u lcer of other site, stage 1 Problem 11/07/2019 12:00:00 AM EST [facility] ([facility] 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 I11.0 Hypertensive heart disease with heart fa ilure HYPERTENSIVE HEART DISEASE WITH HEART FAILURE Diagnosis 12/09/2020 02:03:00 PM [facility] ashleigh M10.9 Gout, unspecified GOUT, UNSPECIFIED Diagnosis 12/09/2020 02:03:00 PM [facility] I48.20 CHRONIC ATRIAL FIBRILLATION, UNSPECIFIED CHRONIC ATRIAL FIBRILLATION, UNSPECIFIED Diagnosis 12/09/2020 02:03:00 PM [facility] ashleigh I50.32 Chronic diastolic (congestive) heart sneha lure CHRONIC DIASTOLIC (CONGESTIVE) HEART FAILURE Diagnosis 12/09/2020 02:03:00 PM [facility] J12.82 PNEUMONIA DUE TO CORONAVIRUS DISEASE 201 9 PNEUMONIA DUE TO CORONAVIRUS DISEASE 2019 Diagnosis 12/09/2020 02:03:00 PM [facility] U07.1 COVID-19 COVID-19 Diagnosis 12/09/2020 02:03:00 PM [facility] J1282 PNEUMONIA DUE TO CORONAVIRUS DISEASE 201 9 PNEUMONIA DUE TO CORONAVIRUS DISEASE 2019 Diagnosis 12/09/2020 08:43:00 AM [facility] R1013 Epigastric pain Epigastric pain Diagnosis 12/08/2020 02:3 5:00 PM [facility] M109 Gout, unspecified Gout, unspecified Diagnosis 12/08/2020 02:35:00 PM [facility] E7800 Pure hypercholesterolemia, unspecified P ure hypercholesterolemia, unspecified Diagnosis 12/08/2020 02:35:00 PM [facility] I10 Essential (primary) hypertension Essential (primary) h ypertension Diagnosis 12/08/2020 02:35:00 PM [facility] Z794 intermediate project manager (current) use of insulin intermediate project manager (cu rrent) use of insulin Diagnosis 12/08/2020 02:35:00 PM [facility] H18107 Type 2 diabetes mellitus with foot ulcer Type 2 diabetes mellitus with foot ulcer Diagnosis 12/08/2020 02:35:00 PM [facility] I4891 Unspecified atrial fibrillation Unspecified atrial fib rillation Diagnosis 12/08/2020 02:35:00 PM [facility] F339 Major depressive disorder, recurrent, un specified Major depressive disorder, recurrent, unspecified Diagnosis 12/08/2020 02:35:00 PM [facility] J189 Pneumonia, unspecified organism Pneumonia, unspecified organism Diagnosis 12/08/2020 02:35:00 PM [facility] U071 COVID-19 COVID-19 Diagnosis 12/08/2020 02:35:00 PM [facility] R41.82 Altered mental status, unspecified ALTERED MENTA L STATUS, UNSPECIFIED Diagnosis 12/05/2020 06:13:00 PM [facility] E11.649 Type 2 diabetes mellitus with hypoglycem ia without coma TYPE 2 DIABETES MELLITUS WITH HYPOGLYCEMIA WITHOUT Diagnosis 12/05/2020 06:13:00 PM [facility] R68.0 Hypothermia, not associated with low env ironmental temperature HYPOTHERMIA, NOT ASSOCIATED W LOW ENVIRONMENTAL TEMPERATURE Diagnosis 12/05/2020 06:13:00 PM [facility] Z7982 intermediate project manager (current) use of aspirin intermediate project manager (cu rrent) use of aspirin Diagnosis 12/05/2020 09:38:00 AM [facility] Z7901 intermediate project manager (current) use of anticoagulant s intermediate project manager (current) use of anticoagulants Diagnosis 12/05/2020 09:38:00 AM [facility] S36302 Type 1 diabetes mellitus with hypoglycem ia with coma Type 1 diabetes mellitus with hypoglycemia with coma Diagnosis 12/05/2020 09:38:00 AM [facility] I509 Heart failure, unspecified Heart failure, unspecified Diagnosis 12/05/2020 09:38:00 AM [facility] I110 Hypertensive heart disease with heart fa ilure Hypertensive heart disease with heart failure Diagnosis 12/05/2020 09:38:00 AM [facility] R680 Hypothermia, not associated with low env ironmental temperature Hypothermia, not associated with low environmental temperature Diagnosis 09:38:00 AM [facility] N401 Benign prostatic hyperplasia with lower urinary tract symptoms Benign prostatic hyperplasia with lower urinary tract symptoms Diagnosis 12/05/2020 09:38:00 AM [facility] R4182 Altered mental status, unspecified Altered menta l status, unspecified Diagnosis 12/05/2020 09:38:00 AM [facility] J449 Chronic obstructive pulmonary disease, u nspecified Chronic obstructive pulmonary disease, unspecified Diagnosis 11/30/2020 06:58:00 AM [facility] E119 Type 2 diabetes mellitus without complic ations Type 2 diabetes mellitus without complications Diagnosis 11/30/2020 06:58:00 AM [facility] K56517 Personal history of nicotine dependence Personal history of nicotine dependence Diagnosis 06/09/2020 01:20:00 PM [facility] I5022 Chronic systolic (congestive) heart fail ure Chronic systolic (congestive) heart failure Diagnosis 06/09/2020 01:20:00 PM [facility] G14435 Unspecified asthma, uncomplicated Unspecified as thma, uncomplicated Diagnosis 06/09/2020 01:20:00 PM [facility] H80591 Type 2 diabetes mellitus with hypoglycem ia without coma Type 2 diabetes mellitus with hypoglycemia without coma Diagnosis 06/09/2020 01:20:00 PM [facility] Surgeries/Procedures Procedure Description Date Indications Data Source(s) INTRODUCE REMDESIVIR IN PERIPH VEIN, PERC, NEW ART 12/10/2020 12:00:00 AM [facility] Computerized Tomography (CT Scan) of Chest and Abdomen using Other Contrast Computerized Tomography (CT Scan) of Chest and Abdomen using Other Contrast 12/09/2020 12:00:00 AM [facility] Monitoring of Cardiac Electrical Activity, External Ap proach Monitoring of Cardiac Electrical Activity, External Approach 12/09/2020 12:00:00 AM [facility] Introduction of Other Anti-infective int o Peripheral Vein, Percutaneous Approach Introduction of Other Anti-infective int o Peripheral Vein, Percutaneous Approach 12/09/2020 12:00:00 AM [facility] Introduction of Remdesivir Anti-infectiv e into Peripheral Vein, Percutaneous Approach, [employer] Introduction of Remdesivir Anti-infectiv e into Peripheral Vein, Percutaneous Approach, [employer] 12/09/2020 12:00:00 AM [facility] Plain Radiography of Chest Plain Radiography of Chest 2020 12:00:00 AM [facility] Introduction of Other Therapeutic Substa nce into Peripheral Vein, Percutaneous Approach 12/05/2020 12:00:00 AM [facility] FINE NEEDLE ASPIRATION W/O IMAGING GUIDANCE 11/03/2020 12:00:00 AM EST eCW1 ([facility]) DEBRIDEMENT NAIL ANY METHOD 6/> 10/26/2020 12:00:00 AM EST [facility] FINE NEEDLE ASPIRATION W/O IMAGING GUIDANCE 10/25/2020 12:00:00 AM EST eCW1 ([facility]) FINE NEEDLE ASPIRATION W/O IMAGING GUIDANCE 10/19/2020 12:00:00 AM EST eCW1 ([facility]) FINE NEEDLE ASPIRATION W/O IMAGING GUIDANCE 10/06/2020 12:00:00 AM EST eCW1 ([facility]) FINE NEEDLE ASPIRATION W/O IMAGING GUIDANCE 09/29/2020 12:00:00 AM EST eCW1 ([facility]) FINE NEEDLE ASPIRATION W/O IMAGING GUIDANCE 09/21/2020 12:00:00 AM EST eCW1 ([facility]) Deep Dissection Below Fascia Foot Infection Bursal Space Sin gle 08/28/2020 12:00:00 AM EST [facility] Amb Glucose Monitoring Interpretation And Report 08/20 12:00:00 AM EDT MEDENT ([facility] ) FINE NEEDLE ASPIRATION W/O IMAGING GUIDANCE 08/18/2020 12:00:00 AM EDT eCW1 ([facility]) FINE NEEDLE ASPIRATION W/O IMAGING GUIDANCE 08/04/2020 12:00:00 AM EDT eCW1 ([facility]) DEBRIDEMENT NAIL ANY METHOD 1-5 08/03/2020 12:00:00 AM EDT [facility] ([facility] FINE NEEDLE ASPIRATION W/O IMAGING GUIDANCE 07/28/2020 12:00:00 AM EDT eCW1 ([facility]) ECG ROUTINE ECG W/LEAST 12 LDS W/I&R 07/26/2020 12:00: 00 AM EDT MEDENT ([facility]) FINE NEEDLE ASPIRATION W/O IMAGING GUIDANCE 07/21/2020 12:00:00 AM EDT eCW1 ([facility]) RADEX FOOT COMPLETE MINIMUM 3 VIEWS 06/07/2020 12:00:0 0 AM EDT [facility] ([facility] DEBRIDEMENT SUBCUTANEOUS TISSUE 20 SQ CM/< 06/01/2020 12:00:00 AM EDT [facility] ([facility] DEBRIDEMENT SUBCUTANEOUS TISSUE 20 SQ CM/< 05/25/2020 12:00:00 AM EDT [facility] ([facility] Diabetic Foot Exam 05/18/2020 12:00:00 AM EDT MEDENT ([facility] ) Amb Glucose Monitoring Interpretation And Report 05/18 12:00:00 AM EDT MEDENT ([facility] ) DEBRIDEMENT SUBCUTANEOUS TISSUE 20 [...] Si ngle 03/29/2020 12:00:00 AM EDT MEDENT ([facility] ) Injec Anesthetic Agent/Steroid Trans Epidural Lumb/Sacral Ea Addl 03/29/2020 12:00:00 AM EDT [facility] Epidurography Radiological Supervision & Interpretation 03/29/2020 12:00:00 AM EDT [facility] Moderate Sedation Services; Same Phys Intl 15 Mins; PT >= 5 Years 03/29/2020 12:00:00 AM EDT MED[facility] ARTHROCENTESIS ASPIR&/INJECTION MAJOR JT/BURSA 020 12:00:00 AM EDT MEDENT ([facility] ) DEBRIDEMENT OPEN WOUND 20 SQ CM/< 03/10/2020 12:00:00 AM EDT [facility] ([facility] ARTHROCENTESIS ASPIR&/INJECTION MAJOR JT/BURSA 020 12:00:00 AM EDT MEDENT ([facility] ) DEBRIDEMENT OPEN WOUND 20 SQ CM/< 02/25/2020 12:00:00 AM EDT [facility] ([facility] ARTHROCENTESIS ASPIR&/INJECTION MAJOR JT/BURSA 020 12:00:00 AM EDT MEDENT ([facility] ) RADIOLOGIC EXAM KNEE COMPLETE 4/MORE VIEWS 02/24/2020 12:00:00 AM EDT MEDENT ([facility] ) DEBRIDEMENT SUBCUTANEOUS TISSUE 20 [...] 02/06/2020 12:00:00 AM EDT eCW1 ([facility]) TRANS CARE MGMT 7 DAY DISCH 02/06/2020 12:00:00 AM EDT eCW1 ([facility]) Tenotomy Toe Subcutaneous Single 01/08/2020 [...] 00 AM EST MEDENT ([facility]) DEBRIDEMENT OPEN WOUND 20 SQ CM/< 11/07/2019 12:00:00 AM EST [facility] ([facility] Office Visit, Est Pt., Level 3 PC 11/04/2019 12:00:00 AM EST eCW1 ([facility]) Influenza immunization administered or previously received 11/04/2019 12:00:00 AM EST eCW1 ([facility]) Amb Glucose Monitoring Interpretation And Report 11/03 12:00:00 AM EST MEDENT ([facility] ) DEBRIDEMENT OPEN WOUND 20 SQ CM/< 10/24/2019 12:00:00 AM EST [facility] ([facility] Results ID Date Data Source [id number] 12/13/2020 01:16:00 PM EST [address] [id number] SUMMARYPATIENT NAME: CHACHO RING MR#: [id number] PHYSICIAN: NOLAN TRIANA DOAUTHOR: Nacho Jaramillo MD DATE: 12/09/20 RM#: [id number] DATE: 12/13/20 : 50Summary of HospitalizationReason for AdmissionCovid infectionHospital Olxrmh33 yo M who was admitted with the impression of COVID 19. [facility]. Pt was placed on IV dexamethasone 6 mg qhs, IV remdesivir 100 mgdaily (completed 5 days), Vit C/D, IV ceftriaxone 1 g daily, IV ctairyngrrdm660 mg daily. For A-fib the pt received [...] management). Pt was also in agreement to [facility]. The pt should continue to quarantine at home as per [facility] public healthguidelines.Diagnoses (Current Visit)Problem List1. Pneumonia [...] normocephalicNeck suppleCardiovascular regular rate, Positive S1 and S7Qxuczwktbwe no distress, symmetric expansion, No significant wheeze.Abdomen soft, non-tenderUrinary no flank painExtremities no edemaMuscoskeletal no brittney arthritis, no joint erythemaNeurological alert, oriented x 3Psych/Mental Status mood neutralPatient/Family InstructionsPrescriptionsStop taking the following medications:FAMOTIDINE (PEPCID*) 20 MG [id number] MILLIGRAM Orally DAILYAZITHROMY JUAN (ZITHROMAX*) 500 MG [id number] MILLIGRAM Intravenous DAILYCefepime HCl/Dextrose, Iso-Osm (Cefepime 2 Gm Injection) 2 GM/100 ML FROZ.PIGGY2 GM Intravenous EVERY 8 HOURSREMDESIVIR INJECTION (REMDESIVIR INJECTION) 100 MG/VIAL [id number] MILLIGRAM Intravenous DAILYContinue taking these medications:Allopurinol (Allopurinol) 100 MG WYRUYE88 MILLIGRAM TABLET DAILYAscorbic Acid* (Vitamin C*) 500 MG [id number] MILLIGRAM Orally TWICE DAILYAspirin (Adult Low Dose Aspirin EC) 81 MG TABLET.DR81 MILLIGRAM Orally DAILYCHOLECALCIFEROL (Vitamin D*) 1,000 UNIT TABLET1,000 UNIT Orally DAILYCyanocobalamin (Vitamin B-12) (Vitamin B-12) 1,000 MCG CAPSULE1,000 MICROGRAM Orally DAILYBisacodyl (Dulcolax) 10 MG SUPP.RECT10 MILLIGRAM Rectally DAILY as needed for ConstipationEsomeprazole Magnesium (Esomeprazole Magnesium) 40 MG CAPSULE.DR40 MILLIGRAM Orally DAILYFluoxetine* (Prozac*) 20 MG [id number] MILLIGRAM Orally DAILYFOLIC ACID* (Folvite*) 1 MG TABLET0.4 MILLIGRAM Orally DAILYGlucagon (Gvoke Hypopen) 1 MG/0.2 ML AUTO.INJCT1 MILLIGRAM SUB-Q As directed as needed for Low Blood SugarInsulin Lispro (Insulin Lispro) 100 UNIT/1 ML [id number] UNIT SUB-Q BEFORE MEALS & AT BEDTIMELISINOPRIL (LISINOPRIL) 20 MG [id number] MILLIGRAM Orally DAILYMagnesium Oxide (Magox 400) 400 MG [id number] MILLIGRAM TABLET 1700Metoprolol XL* (Toprol XL*) 50 MG TAB.ER.24H50 MILLIGRAM Orally TWICE DAILYMAGNESIUM HYDROXIDE (Milk Of Magnesia) 400 MG/5 ML ORAL.SUSP30 MILLILITERS Orally EVERY 72 HOURS as needed for ConstipationMULTIVITAMIN (Multi-Vitamin Daily) 1 EACH TABLET1 TABLET Orally DAILYDABIGATRAN ETEXILATE MESYLATE (PRADAXA) 150 MG [id number] MILLIGRAM Orally TWICE DAILYPRAVASTATIN SODIUM (PRAVASTATIN) 20 MG DFNWIT13 MILLIGRAM Orally 1700RAMELTEON (ROZEREM) 8 MG TABLET8 MILLIGRAM Orally AT BEDTIME as needed for InsomniaSANTYL (Collagenase*) 30 GM OINT...G.0 GM Topically TWICE DAILYBUDESONIDE/FORMOTEROL FUMARATE (Symbicort 80-4.5 Mcg Inhaler) 10.2 GMHFA.AER.AD2 Puff Inhalation TWICE DAILYZinc Sulfate (Zinc-220) 220 MG [id number] MILLIGRAM Orally DAILYBupropion HCl (Bupropion XL) 300 MG TAB.ER.51M077 MILLIGRAM Orally DAILYACETAMINOPHEN* (Tylenol*) 325 MG [id number] MILLIGRAM Orally EVERY 6 HOURS NEEDED as [...] care physician [facility] COVID quarantineReferralsOrdered ReferralsJEUNITY[facility] First availa...[address] [place] [address] START NEW SERVICES OF SN/PT/CIRCULATOR.Time spent by provider to complete discharge > 30 minutesDATE SIGNED: 12/13/20 Electronically SignedTIME SIGNED: 1919 NACHO JARAMILLO MD Name Value Range Interpretation Code Description Data Aydee rce(s) Supporting Document(s) ID Date Data Source [id number] 12/13/2020 01:14:00 PM EST [address] [id number] NAME: CHACHO RING#: [id number] PHYSICIAN: NOLAN TRIANA DOACCOUNT #: [id number] ADM. DATE: 12/09/20PATIENT : 50 DISCH. DATE: [50}DISCHARGE SUMMARYMedical Discharge PlanNicotine Replacement TherapyPrescribed at discharge Rx for med [facility] at [facility] Care InstructionsDischarge Activity: As toleratedDischarge diet: Consistent CarbohydrateProblem ListMedical ProblemsA- fibCHF (congestive heart failure)Chronic CHFCOVID-19DiabetesHypogly cemiaPneumonia due to COVID-19 virusUnresponsiveFollow Up CareFollow Up:Follow up with your Primary care physician once you [facility] COVID quarantinePriority ItemsUrgent/Important items that need to be addressed at primary care follow-upappointmentPlease take the insulin and dexamethasone as prescribedDischarge InformationDISCHARGE INFORMATION* Thank you for [facility] and allowing us toserve you* Our Goal is to provide the highest quality of care.* This discharge information is to help you better understand your diagnosisand medication* Avoid taking ddca-avg-nmqkvav medicines unless approved by your physician.* Take your medications as prescribed. DO NOT stop any medications unlessapproved first* Weigh yourself daily. Report any gain of 5 lbs in a week* 24 Hour Crisis HOTLINE available: Call [employer] at [phone] SMOKING CESSATION* Smoking is dangerous to your health. It delays the healing process, andworks against your medications. Not smoking will improve your health* Our hospital participates with the Opt-to-Quit program. You will be contactedafter discharge by the [facility] Smoker's Quitline for support with tobaccocessation. You have the option once contacted to refuse this service.* You can also go online to [email or web address]. Free nicotine replacementsare available ___Attention* You should [...] rce(s) Supporting Document(s) ID Date Data Source [id number] 12/13/2020 12:50:00 PM EST [facility] Name Value Range Interpretation Code Description Data Aydee rce(s) Supporting Document(s) FGLU 242 mg/dL 70-110 [facility] ID Date Data Source [id number] 12/13/2020 10:14:00 AM EST [facility] Name Value Range Interpretation Code Description Data Ayede rce(s) Supporting Document(s) COVID-19, TINY POSITIVE NEGATIVE [facility] Methodology: Nucleic Acid AmplificationN egative results should [...] Emergency Use Authorization. ID Date Data Source [id number] 12/13/2020 07:55:00 AM EST [facility] Name Value Range Interpretation Code Description Data [facility] rce(s) Supporting Document(s) FGLU 277 mg/dL 70-110 [facility] ID Date Data Source [id number] 12/13/2020 05:47:00 AM EST [facility] Name Value Range Interpretation Code Description Data [facility] rce(s) Supporting Document(s) WBC 6.94 x10E3/uL 4.0-10.5 [facility] RBC 3.48 x10E6/uL 4.70-6.00 [facility] Hemoglobin 8.6 g/dL 14.0-18.0 [facility] Hematocrit 26.1 % 42.0-52.0 [facility] MCV 75.0 fL 81.0-99.0 [facility] MCH 24.7 pg 27.0-31.0 [facility] MCHC 33.0 g/dL 32.7-35.6 [facility] RDW 16.3 % 11.5-14.0 [facility] Platelet count 359 x10E3/uL 150-450 [facility] ital Delta: 467 on 12/12/20 MPV 9.9 fl 6.9-9.5 [facility] Neutrophils 65.5 % 34-64 [facility] Lymphocytes 30.4 % 25-45 [facility] Monocytes 2.9 % 1.7-10.6 [facility] Eosinophils 0 % 0.4-7.0 [facility] Basophils 0 % 0.1-2.0 [facility] Imm. Gran. 1.2 % 0.1-2.0 [facility] Abs. Neutro. 4.55 x10E3/uL 1.2-7.6 [facility] Abs. Lymph. 2.11 x10E3/uL 1.0-3.5 [facility] Abs. Miller. 0.20 x10E3/uL 0.1-1.0 [facility] Eosin. 0.00 x10E3/uL 0.1-0.7 [facility] Abs. Baso. 0.00 x10E3/uL 0.0-0.1 [facility] Abs. Imm. Gran. 0.08 x10E3/uL 0.0-0.1 [facility] spital ANRBC% 0 % 0 [facility] ID Date Data Source [id number] 12/13/2020 05:34:00 AM EST [facility] Name Value Range Interpretation Code Description Data Aydee rce(s) Supporting Document(s) GLU 139 mg/dL 70-110 [facility] Patients taking Sulfasalazine may have f alsely depressedGlucose levels. Patients taking Sulfapyridine may havefalsely elevated Glucose levels. Patients should be drawnfor Glucose before the initial administration of eitherdrug. BUN 29 mg/dL 7-23 [facility] CRE 0.739 mg/dL 0.500-1.300 [facility] GFR > 60 mL/min [facility] CHLORIDE 105 mmol/L 99-110 [facility] NA 138 mmol/L 136-147 [facility] POTASSIUM 4.5 mmol/L 3.5-5.1 [facility] TCO2 24 mmol/L 20-33 [facility] ANION GAP 13.5 10.0-20.0 [facility] CA 8.0 mg/dL 8.3-10.7 [facility] ID Date Data Source [id number] 12/13/2020 12:00:00 AM EST [facility] Name Value Range Interpretation Code Description Data Aydee rce(s) Supporting Document(s) SARS-CoV2 Rapid PCR Positive [facility] This lab was ordered by [facility] and reported by [facility]. ID Date Data Source [id number] 12/13/2020 02:47:00 AM EST [facility] Name Value Range Interpretation Code Description Data Aydee rce(s) Supporting Document(s) FGLU 108 mg/dL 70-110 [facility] ID Date Data Source [id number] 12/12/2020 07:58:00 PM EST [facility] Name Value Range Interpretation Code Description Data Aydee rce(s) Supporting Document(s) FGLU 224 mg/dL 70-110 [facility] ID Date Data Source [id number] 12/12/2020 04:02:00 PM EST [facility] [place], [place] [address]RRDXTULN NOTEPATIENT NAME: CHACHO RING PHYSICIAN: NOLAN TRIANA, DOAUTHOR: Ella PHILIP, [facility]. DATE: 12/09/20 MR#: [id number] NOTE DATE: 12/12/20 RM#: [id number] TIME: 1626 : 50See AddendumSubjectiveCC/Hx Present IllnessCovid infectionEvents Since Last EntryPt seen and examined at the bedside. Pt's oxygen remains stable on room air.Pt likely to be discharged back to [facility] this week once alineeda siu informs us that a bed is available.ObjectiveVital SignsVital Signs-24 HRS12/11 2218 0140 0545Temp 98.5 98.5 97.8 97.9Pulse 83 83 87 81 71Resp 12 16 16 17B/P 137/86 137/86 139/87 137/90 130/74B/P MeanPulse Ox 97 97 99 100O2 DeliveryO2 Flow HfwoTwM54212/12 1000 1400Temp 97.6 97.6Pulse 88 90 76Resp 20 12B/P 118/75 118/75 107/66B/P MeanPulse Ox 100 100O2 DeliveryO2 Flow GgcsQjF9Zqvcdq/OutputIntake/Output Summary 24 hours12/11 1900 12/12 0700Intake Total [...] normocephalicNeck suppleCardiovascular regular rate, Positive S1 and B4Jyiawnaraxv no distress, symmetric expansion, No significant wheeze.Abdomen [...] codeADDENDUM: Nacho Jaramillo MD on 12/13/[address] [place] [address] be aware th at this pt's O2 sat's on this current admission have been 96-100% on room air. Pt has not required oxygen.DATE SIGNED: 12/13/20 Electronically SignedTIME SIGNED: 1017 NACHO JARAMILLO MD Name Value Range Interpretation Code Description Data Aydee rce(s) Supporting Document(s) ID Date Data Source [id number] 12/12/2020 01:33:00 PM EST [facility] Name Value Range Interpretation Code Description Data Aydee rce(s) Supporting Document(s) FGLU 164 mg/dL 70-110 [facility] ID Date Data Source [id number] 12/12/2020 09:34:00 AM EST [facility] Name Value Range Interpretation Code Description Data Aydee rce(s) Supporting Document(s) WBC 7.18 x10E3/uL 4.0-10.5 [facility] RBC 3.82 x10E6/uL 4.70-6.00 [facility] Hemoglobin 9.2 g/dL 14.0-18.0 [facility] Hematocrit 28.8 % 42.0-52.0 [facility] MCV 75.4 fL 81.0-99.0 [facility] MCH 24.1 pg 27.0-31.0 [facility] MCHC 31.9 g/dL 32.7-35.6 [facility] RDW 16.2 % 11.5-14.0 [facility] Platelet count 467 x10E3/uL 150-450 [facility] MPV 9.3 fl 6.9-9.5 [facility] Neutrophils 52.6 % 34-64 [facility] Lymphocytes 41.4 % 25-45 [facility] Monocytes 5.0 % 1.7-10.6 [facility] Eosinophils 0 % 0.4-7.0 [facility] Basophils 0 % 0.1-2.0 [facility] Imm. Gran. 1.0 % 0.1-2.0 [facility] Abs. Neutro. 3.78 x10E3/uL 1.2-7.6 [facility] Abs. Lymph. 2.97 x10E3/uL 1.0-3.5 [facility] Abs. Miller. 0.36 x10E3/uL 0.1-1.0 [facility] Abs. Eosin. 0.00 x10E3/uL 0.1-0.7 [facility] Abs. Baso. 0.00 x10E3/uL 0.0-0.1 [facility] Abs. Imm. Gran. 0.07 x10E3/uL 0.0-0.1 [facility] ANRBC% 0 % 0 [facility] ID Date Data Source [id number] 12/12/2020 07:30:00 AM EST [facility] Name Value Range Interpretation Code Description Data Aydee rce(s) Supporting Document(s) FGLU 88 mg/dL 70-110 [facility] ID Date Data Source [id number] 12/12/2020 05:17:00 AM EST [facility] Name Value Range Interpretation Code Description Data Aydee rce(s) Supporting Document(s) GLU 77 mg/dL 70-110 [facility] Patients taking Sulfasalazine may have f alsely depressedGlucose levels. Patients taking Sulfapyridine may havefalsely elevated Glucose levels. Patients should be drawnfor Glucose before the initial administration of eitherdrug. BUN 26 mg/dL 7-23 [facility] CRE 0.646 mg/dL 0.500-1.300 [facility] GFR > 60 mL/min [facility] CHLORIDE 104 mmol/L 99-110 [facility] NA 139 mmol/L 136-147 [facility] POTASSIUM 5.1 mmol/L 3.5-5.1 [facility] TCO2 27 mmol/L 20-33 [facility] ANION GAP 13.1 10.0-20.0 [facility] CA 8.1 mg/dL 8.3-10.7 [facility] ID Date Data Source [id number] 12/12/2020 01:50:00 AM EST [facility] Name Value Range Interpretation Code Description Data Aydee rce(s) Supporting Document(s) FGLU 188 mg/dL 70-110 [facility] ID Date Data Source [id number] 12/11/2020 06:31:00 PM EST [facility] Name Value Range Interpretation Code Description Data Aydee rce(s) Supporting Document(s) FGLU 141 mg/dL 70-110 [facility] ID Date Data Source [id number] 12/11/2020 01:50:00 PM EST [facility] [address] [id number] NOTEPATIENT NAME: CHACHO RING PHYSICIAN: NOLAN TRIANA DOAUTHOR: Serafin Triana DO. DATE: 12/09/20 MR#: [id number] NOTE DATE: 12/11/20 RM#: [id number] TIME: 1357 [...] 99 99 99 99 97O2 DeliveryO2 Flow AqpoRrX140/994969Zdvk 98.0Pulse 107Resp 12B/P 149/94B/P MeanPulse Ox 96O2 DeliveryO2 Flow CsesZtL9Zeawoz/OutputIntake/Output Summary 24 hours12/10 1900 12/11 0700Intake Total [...] swelling, suppleCardiovascular regular rate, Positive S1 and L6Iparocjpkan no distress, symmetric expansion, No significant wheeze.Abdomen [...] regimen.Steroid has worsened patient's hyperglycemia.- Re-evaluate patient's fpc diabetic regimen after patient finishs courseof decadron.3. A-fibA&P-Continue cardiac telemetry. Continue metoprolol-Pradaxa is not part of formulary. Continue Lovenox4. Chronic CHFA&P- No sign of significant fluid overload at this moment.VTE ProphylaxisVTE Prophylaxis: Continue Lovenox.DATE SIGNED: 12/11/20 Electronically SignedTIME SIGNED: 1926 NOLAN TRIANA DO Name Value Range Interpretation Code Description Data Aydee rce(s) Supporting Document(s) ID Date Data Source [id number] 12/11/2020 05:06:00 PM EST [facility] Name Value Range Interpretation Code Description Data Aydee rce(s) Supporting Document(s) FGLU 384 mg/dL 70-110 [facility] ID Date Data Source [id number] 12/11/2020 04:39:00 AM EST [facility] Name Value Range Interpretation Code Description Data Aydee rce(s) Supporting Document(s) GLU 224 mg/dL 70-110 [facility] Patients taking Sulfasalazine may have f alsely depressedGlucose levels. Patients taking Sulfapyridine may havefalsely elevated Glucose levels. Patients should be drawnfor Glucose before the initial administration of eitherdrug. BUN 31 mg/dL 7-23 [facility] CRE 0.782 mg/dL 0.500-1.300 [facility] GFR > 60 mL/min [facility] CHLORIDE 102 mmol/L 99-110 [facility] NA 134 mmol/L 136-147 [facility] POTASSIUM 5.1 mmol/L 3.5-5.1 [facility] TCO2 26 mmol/L 20-33 [facility] ANION GAP 11.1 10.0-20.0 [facility] CA 8.7 mg/dL 8.3-10.7 [facility] ID Date Data Source [id number] 12/11/2020 04:35:00 AM [facility] Name Value Range Interpretation Code Description Data Aydee rce(s) Supporting Document(s) WBC 5.86 x10E3/uL 4.0-10.5 [facility] RBC 3.67 x10E6/uL 4.70-6.00 [facility] Hemoglobin 8.7 g/dL 14.0-18.0 [facility] Hematocrit 27.2 % 42.0-52.0 [facility] MCV 74.1 fL 81.0-99.0 [facility] MCH 23.7 pg 27.0-31.0 [facility] MCHC 32.0 g/dL 32.7-35.6 [facility] RDW 15.9 % 11.5-14.0 [facility] Platelet count 391 x10E3/uL 150-450 [facility] Delta: 285 on 12/10/20-0434 MPV 10.0 fl 6.9-9.5 [facility] Neutrophils 68.4 % 34-64 [facility] Lymphocytes 27.1 % 25-45 [facility] Monocytes 3.8 % 1.7-10.6 [facility] Eosinophils 0 % 0.4-7.0 [facility] Basophils 0 % 0.1-2.0 [facility] Imm. Gran. 0.7 % 0.1-2.0 [facility] Abs. Neutro. 4.01 x10E3/uL 1.2-7.6 [facility] Abs. Lymph. 1.59 x10E3/uL 1.0-3.5 [facility] Abs. Miller. 0.22 x10E3/uL 0.1-1.0 [facility] Abs. Eosin. 0.00 x10E3/uL 0.1-0.7 [facility] Abs. Baso. 0.00 x10E3/uL 0.0-0.1 [facility] Abs. Imm. Gran. 0.04 x10E3/uL 0.0-0.1 [facility] ANRBC% 0 % 0 [facility] ID Date Data Source [id number] 12/11/2020 11:04:00 PM EST [facility] Name Value Range Interpretation Code Description Data Aydee rce(s) Supporting Document(s) FGLU 88 mg/dL 70-110 [facility] ID Date Data Source [id number] 12/10/2020 04:26:00 PM EST [facility] Name Value Range Interpretation Code Description Data Aydee rce(s) Supporting Document(s) FGLU 348 mg/dL 70-110 [facility] ID Date Data Source [id number] 12/10/2020 01:15:00 PM EST [facility] [address] [id number] NOTEPATIENT NAME: CHACHO RING DATTENTRUNG PHYSICIAN: NOLAN TRIANA DOAUTHOR: Serafin Triana DO. DATE: 12/09/20 MR#: [id number] NOTE DATE: 12/10/20 RM#: [id number] TIME: 1323 [...] 99 98 99 97 99O2 DeliveryO2 Flow TginXyY4Ssrqub/OutputIntake/Output Summary 24 hours12/09 1900 12/10 0700Intake Total [...] swelling, suppleCardiovascular regular rate, Positive S1 and R1Ribewlinhte no distress, symmetric expansion, No significant wheeze. [...] rce(s) Supporting Document(s) ID Date Data Source [id number] 12/10/2020 12:22:00 PM EST [facility] COMMENTS TO LAB: CRITICAL HIGH FINGERSTI CKDoes the pt. have a limb restriction? N Name Value Range Interpretation Code Description Data Aydee rce(s) Supporting Document(s) GLU 400 mg/dL 70-110 [facility] Patients taking Sulfasalazine may have f alsely depressedGlucose levels. Patients taking Sulfapyridine may havefalsely elevated Glucose levels. Patients should be drawnfor Glucose before the initial administration of eitherdrug. ID Date Data Source [id number] 12/10/2020 07:43:00 AM EST [facility] COMMENTS TO LAB: CRITICAL HIGH FINGERSTI CK Name Value Range Interpretation Code Description Data Aydee rce(s) Supporting Document(s) GLU 426 mg/dL 70-110 [facility] Patients taking Sulfasalazine may have f alsely depressedGlucose levels. Patients taking Sulfapyridine may havefalsely elevated Glucose levels. Patients should be drawnfor Glucose before the initial administration of eitherdrug. ID Date Data Source [id number] 12/10/2020 06:33:00 AM EST [facility] Name Value Range Interpretation Code Description Data Aydee rce(s) Supporting Document(s) GLU 374 mg/dL 70-110 [facility] Patients taking Sulfasalazine may have f alsely depressedGlucose levels. Patients taking Sulfapyridine may havefalsely elevated Glucose levels. Patients should be drawnfor Glucose before the initial administration of eitherdrug. BUN 30 mg/dL 7-23 [facility] CRE 0.816 mg/dL 0.500-1.300 [facility] GFR > 60 mL/min [facility] CHLORIDE 102 mmol/L 99-110 [facility] NA 135 mmol/L 136-147 [facility] POTASSIUM 5.6 mmol/L 3.5-5.1 [facility] TCO2 23 mmol/L 20-33 [facility] ANION GAP 15.6 10.0-20.0 [facility] CA 8.7 mg/dL 8.3-10.7 [facility] ID Date Data Source [id number] 12/10/2020 05:34:00 AM EST [facility] Name Value Range Interpretation Code Description Data Aydee rce(s) Supporting Document(s) WBC 3.09 x10E3/uL 4.0-10.5 [facility] RBC 3.58 x10E6/uL 4.70-6.00 [facility] Hemoglobin 8.7 g/dL 14.0-18.0 [facility] Hematocrit 27.0 % 42.0-52.0 [facility] MCV 75.4 fL 81.0-99.0 [facility] MCH 24.3 pg 27.0-31.0 [facility] MCHC 32.2 g/dL 32.7-35.6 [facility] RDW 15.7 % 11.5-14.0 [facility] Platelet count 285 x10E3/uL 150-450 [facility] ital MPV 10.3 fl 6.9-9.5 [facility] Neutrophils 59.3 % 34-64 [facility] Lymphocytes 34.6 % 25-45 [facility] Monocytes 5.5 % 1.7-10.6 [facility] Eosinophils 0 % 0.4-7.0 [facility] Basophils 0 % 0.1-2.0 [facility] Imm. Gran. 0.6 % 0.1-2.0 [facility] Abs. Neutro. 1.83 x10E3/uL 1.2-7.6 [facility] Abs. Lymph. 1.07 x10E3/uL 1.0-3.5 [facility] Abs. Miller. 0.17 x10E3/uL 0.1-1.0 [facility] Abs. Eosin. 0.00 x10E3/uL 0.1-0.7 [facility] Abs. Baso. 0.00 x10E3/uL 0.0-0.1 [facility] Abs. Imm. Gran. 0.02 x10E3/uL 0.0-0.1 [facility] spital ANRBC% 0 % 0 [facility] ID Date Data Source [id number] 12/10/2020 12:00:00 AM EST [facility] Name Value Range Interpretation Code Description Data Aydee rce(s) Supporting Document(s) FGLU 211 mg/dL 70-110 [facility] ID Date Data Source [id number] 12/09/2020 04:05:00 PM EST [facility] Name Value Range Interpretation Code Description Data Aydee rce(s) Supporting Document(s) ESR 83 MM/HR 0-15 [facility] ID Date Data Source [id number] 12/09/2020 04:05:00 PM EST [facility] Name Value Range Interpretation Code Description Data Aydee rce(s) Supporting Document(s) D-DIMER 0.58 mg/L [facility] CUT OFF VALUE = 0.5 mg/L The negative pr edictive value for DVT or PE is at 98% whenthe result is below the cut off. ID Date Data Source [id number] 12/09/2020 03:54:00 PM [facility] Name Value Range Interpretation Code Description Data Aydee rce(s) Supporting Document(s) GLU 362 mg/dL 70-110 [facility] Patients taking Sulfasalazine may have f alsely depressedGlucose levels. Patients taking Sulfapyridine may havefalsely elevated Glucose levels. Patients should be drawnfor Glucose before the initial administration of eitherdrug. BUN 27 mg/dL 7-23 [facility] CRE 1.020 mg/dL 0.500-1.300 [facility] GFR > 60 mL/min [facility] CHLORIDE 100 mmol/L 99-110 [facility] NA 133 mmol/L 136-147 [facility] POTASSIUM 4.4 mmol/L 3.5-5.1 [facility] TCO2 25 mmol/L 20-33 [facility] ANION GAP 12.4 10.0-20.0 [facility] CA 8.4 mg/dL 8.3-10.7 [facility] ID Date Data Source [id number] 12/09/2020 03:54:00 PM EST [facility] Name Value Range Interpretation Code Description Data Aydee rce(s) Supporting Document(s) C-REACTIVE PROT 9.74 mg/dL 0.0-0.49 [facility] ID Date Data Source [id number] 12/09/2020 03:34:00 PM EST [facility] Name Value Range Interpretation Code Description Data Aydee rce(s) Supporting Document(s) WBC 3.57 x10E3/uL 4.0-10.5 [facility] RBC 3.51 x10E6/uL 4.70-6.00 [facility] Hemoglobin 8.5 g/dL 14.0-18.0 [facility] Hematocrit 26.4 % 42.0-52.0 [facility] MCV 75.2 fL 81.0-99.0 [facility] MCH 24.2 pg 27.0-31.0 [facility] MCHC 32.2 g/dL 32.7-35.6 [facility] RDW 15.7 % 11.5-14.0 [facility] Platelet count 283 x10E3/uL 150-450 [facility] ital MPV 10.0 fl 6.9-9.5 [facility] Neutrophils 58.8 % 34-64 [facility] Lymphocytes 32.2 % 25-45 [facility] Monocytes 8.4 % 1.7-10.6 [facility] Eosinophils 0 % 0.4-7.0 [facility] Basophils 0 % 0.1-2.0 [facility] Imm. Gran. 0.6 % 0.1-2.0 [facility] Abs. Neutro. 2.10 x10E3/uL 1.2-7.6 [facility] Abs. Lymph. 1.15 x10E3/uL 1.0-3.5 [facility] Abs. Miller. 0.30 x10E3/uL 0.1-1.0 [facility] Abs. Eosin. 0.00 x10E3/uL 0.1-0.7 [facility] Abs. Baso. 0.00 x10E3/uL 0.0-0.1 [facility] Abs. Imm. Gran. 0.02 x10E3/uL 0.0-0.1 [facility] ANRBC% 0 % 0 [facility] ID Date Data Source [id number] 12/09/2020 02:49:00 PM EST [address] [address]DEDSSUV AND PHYSICALPATIENT NAME: CHACHO RING MR#: [id number] PHYSICIAN: NOLAN TRIANA DOAUTHOR: Nolan Triana DO DATE: 12/09/20 RM#: [id number] & PHYSICAL DATE: 12/09/20 : 50EVALUATION TIME: 1515HistoryChief Complaint/Admit ReasonCovid infectionHistory of Presenting IllnessPatient is a 70 years old male with a past medical history significant fordiabetes, atrial fibrillation, CHF, gout, hypertension and recently diagnosedCOVID infection with just hospitalized in [facility]. Patient is transferred back to [facility] from [facility] due to concern for worsening COVID infection.Patient was recently diagnosed with Covid infection in the [facility]. Patient initially presented to [facility] emergency room afterpatient was found unresponsive with severe hypoglycemia and hypothermia.Patient was transferred to [facility] ICU for severe hypoglycemia management.Patient symptom quickly resolved with IV dextrose and insulin adjust ments.Patient had been afebrile without significant hypoxia; patient was maintaininghis oxygenation on room air. Patient was transferred back to [facility]. Patient was found to have a [...] therapist support, [facility] During encounter, patient denies [...] numbness, seizure.PsychDe nies: anxiety, depression.ExamVital SignsVital Signs-24 HRS02/[id number] 87Resp 20B/PB/P MeanPulse Ox 99O2 DeliveryO2 Flow ZimhTnT0Vivmefbe ExaminationGeneral Appearance no acute distress, afebrile, alert, awake, conversantHead atraumatic, normocephalicNeck no swelling, suppleCardiovascular regular rate, Positive S1 and G2Lvdhryhfefq no distress, symmetric expansion, No significant wheeze. Lung basesronchi.Abdomen soft, non- tender, no distention, normal bowel sounds, no guarding, noreboundUrinary no bladder distention, no flank painExtremities no cyanosis, no edemaMuscoskeletal no brittney arthritis, no joint erythemaNeurological alert, oriented x 3, normal speech, no motor deficits, no sensorydeficitsSkin AssessmentSkin dry, intact, no rashPsych/Mental Status mood neutralData ReviewImagingCT of chest from [facility] reviewed. Bilateral lung parenchymal changesAssessment/PlanDiagnosis/Problem1. COVID-19A&P-Patient transferred back to [facility] from [facility] for COVID managements. Patient was found to have oxygen saturation of93% and patient started on the 2 L oxygen. Patient started on remdesivir andDecadron in the evening of 12/08/2020. Due to concern for acute oxygendesaturation and lack of respiratory therapist support, patient transferredback to [facility] for higher level care.-Respiratory therapist was [...] rce(s) Supporting Document(s) ID Date Data Source [id number] 12/09/2020 10:42:00 [place] [address] PHONE: [phone] FAX: [phone] Name .................. : LUCITA FLOR Acct Number.................. : [id number] ROOM. ................. : 118-2 MR Number ................... : [id number] Stay type ............. : I/P Discharge Date......... ... : Admit Date ......... : 12/08/20 Admit Phys .................... : OSCAR-YULI Date of ....... : 1950 Family Phys ................... : [facility] Phone .................. : [phone] Age ................................ : 70 Film# .................. .:[id number] Sex ................................. : M Unsigned transcriptions are preliminary reports and do not represent a medical or legal document CHEST PORTABLE [id number] COMPLETE:12/08/20 20:50 4560 (JAYA SON FOR CHEST: FEVER PORTABLE CHEST X-RAY: INDICATION: Fever. FINDINGS: The lungs are well-expanded with mild chronic interstitial changes. No focal infiltrate. The cardiac silhouette is normal in size and contour. No acute osseous abnormality. IMPRESSION: No acute pulmonary process. Electronically Reviewed and Signed By Ulysses Elmore M.D. , 12/09/20 10:42, [facility] Transcribe Initials: BALDO , Transcribe Date: 12/08/20 22:42, Dictation Date: Copy for: 710 MED REC DISCHARGED Page 1 of 1 Name Value Range Interpretation Code Description Data Aydee rce(s) Supporting Document(s) ID Date Data Source [id number] 12/14/2020 06:07:00 PM [facility] [address] Name Value Range Interpretation Code Description Data Aydee rce(s) Supporting Document(s) Bacteria identified in Blood by Culture [facility] NO GROWTH AFTER 5 DAYS ID Date Data Source [id number] 12/15/2020 08:29:00 AM [facility] Name Value Range Interpretation Code Description Data Aydee rce(s) Supporting Document(s) CULTURE BLOOD [facility] Ho spital _CULTURE BLOOD_ TEST PERFORM ED AT [address] [address] CLIA# [id number] SEE SCANNED REPORT{ PRELIM ID Date Data Source [id number] 12/09/2020 06:53:00 AM [facility] Name Value Range Interpretation Code Description Data Aydee rce(s) Supporting Document(s) Fibrinogen [Mass/volume] in Platelet poor plasma by Co agulation assay 538.0 mg/dL 179 - 506 H [facility] ID Date Data Source [id number] 12/15/2020 08:29:00 AM [facility] Name Value Range Interpretation Code Description Data Aydee rce(s) Supporting Document(s) CULTURE BLOOD [facility] Ho spital _CULTURE BLOOD_ TEST PERFORM ED AT [address] [address] CLIA# [id number] SEE SCANNED REPORT{ PRELIM ID Date Data Source [id number] 12/09/2020 09:00:00 AM [facility] Name Value Range Interpretation Code Description Data Aydee rce(s) Supporting Document(s) COMPREHENSIVE METABOLIC PANEL [facility] COMPREHENSIVE METABOLIC PANEL Sodium [Moles/volume] in Serum or Plasma 129 mEq/L 134 - 153 L [facility] Potassium [Moles/volume] in Serum or Plasma 4.9 mEq/L 3.6 - 5.0 [facility] Chloride [Moles/volume] in Serum or Plasma 92 mEq/L 98 - 107 L [facility] Carbon dioxide, total [Moles/volume] in Serum or Plasma 18 MEQ/L 22 - 30 L [facility] Glucose [Mass/volume] in Serum or Plasma 456 MG/DL 70 - 99 [facility] CALL/ READ BACK CALLED TO [facility] BY: SHAYNA [facility] DATE/TIME 12.09.20 @ 0905 [facility] ospital BUN 22 MG/DL 7 - 21 H [facility] Creatinine [Mass/volume] in Serum or Plasma 0.9 MG/DL 0.7 - 1.5 [facility] BUN/CREAT 24 8 - 27 [facility] Protein [Mass/volume] in Serum or Plasma 6.1 G/DL 6.3 - 8.2 L [facility] Albumin [Mass/volume] in Serum or Plasma 3.1 G/DL 3.9 - 5.0 L [facility] Globulin [Mass/volume] in Serum by calculation 3.0 GM/DL 2.4 - 3.2 [facility] A/G RATIO 1.0 0.8 - 2.0 [facility] Calcium [Mass/volume] in Serum or Plasma 8.4 MG/DL 8.4 - 10.2 [facility] Bilirubin.total [Mass/volume] in Serum or Plasma <0.7 MG/DL 0.2 - 1.3 [facility] Alkaline phosphatase [Enzymatic activity/volume] in Serum or Plasma 100 U/L 38 - 126 [facility] Aspartate aminotransferase [Enzymatic activity/volume] in Serum or Plasma 21 U/L 5 - 40 [facility] Alanine aminotransferase [Enzymatic activity/volume] in Seru m or Plasma 14 U/L 7 - 56 [facility] Anion gap 3 in Serum or Plasma 19.0 mmol/L 8.0 - 16.0 H [facility] AGE 70 yrs [facility] NON-AA GFR >60 mL/min [facility] ital AFR AMER GFR >60 mL/min [facility] Ho spital Male GFR In [...] >32 mL/min Normal ID Date Data Source [id number] 12/09/2020 08:36:00 AM EST [facility] Name Value Range Interpretation Code Description Data Aydee rce(s) Supporting Document(s) CBC W/AUTOMATED DIFF [facility] COMPLETE BLOOD COUNT Leukocytes [#/volume] in Blood by Automated count 3.1 10^3/uL 4.2 - 1 1.0 L [facility] Erythrocytes [#/volume] in Blood by Automated count 3.58 10^6/uL 4. 50 - 6.30 L [facility] Hemoglobin [Mass/volume] in Blood 8.7 g/dL 14.0 - 16.0 L [facility] Hematocrit [Volume Fraction] of Blood by Automated count 27.5 % 4 1.0 - 51.0 L [facility] Erythrocyte mean corpuscular volume [Entitic volume] by Auto mated count 76.8 fL 80.0 - 94.0 L [facility] Erythrocyte mean corpuscular hemoglobin [Entitic mass] by Automated count 24.3 pg 27.0 - 34.0 L [facility] Erythrocyte mean corpuscular hemoglobin concentration [Mass/volume] by Automated count 31.6 g/dL 31.0 - 36.0 [facility] Erythrocyte distribution width [Ratio] by Automated count 15.9 % 11.5 - 14.8 H [facility] Platelets [#/volume] in Blood by Automated count 242 10^3/uL 150 - 45 0 [facility] Platelet mean volume [Entitic volume] in Blood by Automated count 10.4 fL 7.4 - 10.4 [facility] Neutrophils/100 leukocytes in Blood by Automated count 66.6 % 37. 0 - 80.0 [facility] Lymphocytes/100 leukocytes in Blood by Manual count 29.2 % 25.0 - 40.0 [facility] Monocytes/100 leukocytes in Blood by Automated count 3.9 % 3.0 - 8.0 [facility] Eosinophils/100 leukocytes in Blood by Automated count 0.0 % 0.0 - 7.0 [facility] Basophils/100 leukocytes in Blood by Automated count 0.0 % 0.0 - 2.0 [facility] %IG 0.3 % 0.0 - 0.0 H [facility] al %NRBC 0.0 % 0.0 - 0.0 [facility] al Neutrophils [#/volume] in Blood by Automated count 2.03 10^3/uL 2.00 - 6.90 [facility] Lymphocytes [#/volume] in Blood by Automated count 0.89 10^3/uL 0.60 - 3.40 [facility] Monocytes [#/volume] in Blood by Automated count 0.12 10^3/uL 0.00 - 0.90 [facility] Eosinophils [#/volume] in Blood by Automated count 0.00 10^3/uL 0.00 - 0.70 [facility] Basophils [#/volume] in Blood by Automated count 0.00 10^3/uL 0.00 - 0.20 [facility] #IG 0.01 10^3/uL 0.00 - 0.10 [facility] H ospital #NRBC 0.00 10^3/uL 0.00 - 0.00 [facility] ospital MANUAL DIFF SEE BELOW [facility] ital Segmented neutrophils/100 leukocytes in Blood by Manual count 65 % 37 - 80 [facility] %LYMPH 28 % 25 - 40 [facility] al %MONO 6 % 3 - 8 [facility] al Metamyelocytes/100 leukocytes in Blood by Manual count 1 % [facility] RBC MORPH SEE BELOW [facility] al Anisocytosis [Presence] in Blood by Light microscopy 1+ MICKEY L: NONE SEEN A [facility] Microcytes [Presence] in Blood by Light microscopy 1+ NORMAL: NONE SEEN A [facility] Poikilocytosis [Presence] in Blood by Light microscopy 1+ NOR MAL: NONE SEEN A [facility] HYPO 1+ NORMAL: NONE SEEN A [facility] { SICKLE CELL (NORMAL: NONE SEEN ) Ovalocytes [Presence] in Blood by Light microscopy 1+ NORMAL: NONE SEEN A [facility] Platelet adequacy [Presence] in Blood by Light microscopy NORMAL NORMAL: NORMAL [facility] COMMENT: ID Date Data Source [id number] 12/09/2020 08:22:00 AM [facility] Name Value Range Interpretation Code Description Data Aydee rce(s) Supporting Document(s) Prothrombin time (PT) 15.4 SECONDS 11.0 - 15.5 [facility] INR in Platelet poor plasma by Coagulation assay 1.16 0.93 - 1. 23 [facility] aPTT in Blood by Coagulation assay 75.4 SECONDS 24.8 - 36.7 H [facility] \\BLDo\\INR INTERPRETATION\\BLDx\\ Therapeutic range for Coumadin and related oral anticoagulants. - International Normalized Ratio (INR): 2.0 - 3.0 for Venous Thrombosis, Pulmonary Embolus, Tissue heart valves, Acute [place] Atrial Fibrillation, Valvular heart disease and recurrent Systemic Embolism. - International Normalized Ratio (INR): 2.5 - 3.5 for Mechanical Prosthetic valve. ID Date Data Source [id number] 12/09/2020 03:30:00 AM [facility] [address] [place] [address] ---------NAME--------- NUMBER SEX AGE ADMIT DISC. XRAY# F/C TYPE LUCITA FLOR [id number] M 70 12/08/20 [id number] MB4 I/P DATE OF : 1950 M/R# [id number] #: [id number] 118-2 LOCATION: TRANSCRIBED: 12/09/20 3:[address] CTA CHEST NON-CORONARY W [id number] COMPLETED:12/09/20 2:59 DLA 4562 {REASON FOR EXAM: covid 19 PHYSICIAN: INES========= R A D I O L O G Y R E P O R T PATIENT HISTORY:ACTUAL DOSE 490.5 mGy*cm fever isovue 370 75cc [id number] 2023 was givenPatient male. Verification of 2 patient identifiers performed.Time Out performed. type and amount of contrast used, correct body part and sideall verified prior to examination. Exam has been sent to [employer] [facility] Radiology - If further informationis needed, the number is . Report will be faxed to ED and/or Xray/ SOFT TISSUE (DICOM Hx)EXAM: CTA Chest with Intravenous Contrast for PE evaluationCLINICAL HISTORY: ACTUAL DOSE 490.5 mGy*cm fever isovue 370 75cc [id number] was given Patient male. Verification of 2 patient identifiers performed.Time Out performed. type and amount of contrast used, correct body part and sideall verified prior to examination. [facility] [employer] If further information is needed, [...] as reasonably achievable.CONTRAST: With; isovue 370 75cc [id number] Mar 2023 was administered withoutincident.COMPARISON: None provided.FINDINGS:PULMONARY [...] rce(s) Supporting Document(s) ID Date Data Source [id number] 12/09/2020 02:15:00 AM EST [facility] Name Value Range Interpretation Code Description Data Aydee rce(s) Supporting Document(s) URINALYSIS [facility] [place] URINALYSIS SOURCE Clean Catch [facility]osp ital COLOR yellow NORMAL: Yellow [facility] CLARITY clear NORMAL: Clear [facility] Specific gravity of Urine by Test strip 1.015 1.001 - 1.030 [facility] pH 5 5 - 9 [facility] Glucose [Mass/volume] in Urine by Test strip 1000 NORMAL: Negat alayna [facility] Bilirubin.total [Presence] in Urine by Test strip NEG NORMAL: Negative [facility] Ketones [Presence] in Urine by Test strip 50 NORMAL: Negative [facility] Protein [Mass/volume] in Urine by Test strip 100 NORMAL: Negat alayna [facility] Nitrite [Presence] in Urine by Test strip NEG NORMAL: Negative [facility] BLOOD 150 NORMAL: Negative A [facility] Leukocyte esterase [Presence] in Urine by Test strip NEG MICKEY L: Negative [facility] Urobilinogen [Mass/volume] in Urine by Test strip NOR less gianna n 1.0 mg/dL [facility] MICROSCOPIC See Below [facility] ital WBC 0 - 1 NORMAL: NONE SEEN [facility] Erythrocytes [#/volume] in Urine by Test strip 5 - 7 NORMAL: NON E SEEN A [facility] EPITHELIAL FEW NORMAL: NONE SEEN [facility] Bacteria [Presence] in Urine sediment by Light microscopy Tr joel NORMAL: NONE SEEN [facility] Mucus [Presence] in Urine sediment by Light microscopy Trace NORMAL: NONE SEEN [facility] ID Date Data Source [id number] 12/08/2020 08:17:[address] [address]WOZXJALAH SUMMARYPATIENT NAME: CHACHO RING MR#: [id number] PHYSICIAN: NOLAN TRIANA DOAUTHOR: Nolan Triana DO DATE: 12/05/20 #: ICUDISCHARGE DATE: 12/08/20 : 50Summary of HospitalizationReason for AdmissionUnresponsiveness, persistent hypoglycemia and hypothermiaHospital CoursePatient is a 70 years old male [facility] with a pastmedical history significant for diabetes, atrial fibrillation, CHF, gout,hypertension and recently diagnosed COVID [facility] after patient was found unresponsive in the assisted. Patient wasfound to have persistent hypoglycemia and hypothermia. Patient received a doseof D50 however patient glucose remained low. Due to lack of ICU, patienttransferred to [facility] ICU for further evaluation and management. Patient [...] monitored closely. On 12/08/2020, patient is [facility] [place] [facility] for [facility]. Recommend following withoutpatient provider for further insulin regimen adjustment. Patient was nota ble to discharge back to the assisted due to current guideline for COVIDpatient.Patient was [...] DAILYContinue taking these medications:Allopurinol (Allopurinol) 100 MG [id number] MILLIGRAM TABLET DAILYAscorbic Acid* (Vitamin C*) 500 MG [id number] MILLIGRAM Orally TWICE DAILYAspirin (Adult Low Dose Aspirin EC) 81 MG TABLET.DR81 MILLIGRAM Orally DAILYCHOLECALCIFEROL (Vitamin D*) 1,000 UNIT TABLET1,000 UNIT Orally DAILYCyanocobalamin (Vitamin B-12) (Vitamin B-12) 1,000 MCG CAPSULE1,000 MICROGRAM Orally DAILYBisacodyl (Dulcolax) 10 MG SUPP.RECT10 MILLIGRAM Rectally DAILY as needed for ConstipationEsomeprazole Magnesium (Esomeprazole Magnesium) 40 MG CAPSULE.DR40 MILLIGRAM Orally DAILYFAMOTIDINE (PEPCID*) 20 MG [id number] MILLIGRAM Orally DAILYFluoxetine* (Prozac*) 20 MG JMESYEP10 MILLIGRAM Orally DAILYFOLIC ACID* (Folvite*) 1 MG TABLET0.4 MILLIGRAM Orally DAILYGlucagon (Gvoke Hypopen) 1 MG/0.2 ML AUTO.INJCT1 MILLIGRAM SUB-Q As directed as needed for Low Blood SugarInsulin Lispro (Insulin Lispro) 100 UNIT/1 ML [id number] UNIT SUB-Q BEFORE MEALS & AT BEDTIMELISINOPRIL (LISINOPRIL) 20 MG [id number] MILLIGRAM Orally DAILYMagnesium Oxide (Magox 400) 400 MG [id number] MILLIGRAM TABLET 1700Metoprolol XL* (Toprol XL*) 50 MG TAB.ER.24H50 MILLIGRAM Orally TWICE DAILYMAGNESIUM HYDROXIDE (Milk Of Magnesia) 400 MG/5 ML ORAL.SUSP30 MILLILITERS Orally EVERY 72 HOURS as needed for ConstipationMULTIVITAMIN (Multi-Vitamin Daily) 1 EACH TABLET1 TABLET Orally DAILYDABIGATRAN ETEXILATE MESYLATE (PRADAXA) 150 MG [id number] MILLIGRAM Orally TWICE DAILYPRAVASTATIN SODIUM (PRAVASTATIN) 20 MG QWOUVF67 MILLIGRAM Orally 1700RAMELTEON (ROZEREM) 8 MG TABLET8 MILLIGRAM Orally AT BEDTIME as needed for InsomniaSANTYL (Collagenase*) 30 GM OINT...G.0 GM Topically TWICE DAILYBUDESONIDE/FORMOTEROL FUMARATE (Symbicort 80-4.5 Mcg Inhaler) 10.2 GMHFA.AER.AD2 Puff Inhalation TWICE DAILYZinc Sulfate (Zinc-220) 220 MG CYFJRKQ347 MILLIGRAM Orally DAILYBupropion HCl (Bupropion XL) 300 MG TAB.ER.24X920 MILLIGRAM Orally DAILYDischarge Activity: As toleratedDischarge diet: Consistent CarbohydrateFollow-upFollow up with your Primary care physicianTime spent by provider to complete discharge > 30 minutesDATE SIGNED: 12/11/20 Electronically SignedTIME SIGNED: 1926 FRANC[address] MELISSADO Samantha Name Value Range Interpretation Code Description Data Aydee rce(s) Supporting Document(s) ID Date Data Source [id number] 12/09/2020 05:43:00 AM [facility] Name Value Range Interpretation Code Description Data Aydee rce(s) Supporting Document(s) C reactive protein [Mass/volume] in Serum or Plasma by High sensitivity method 99.77 MG/L 1.00 - 3.00 H [facility] HS-CRP CUT-OFF: RELATIVE RISK: <1.0 mg/L Low 1.0 - 3.0 mg/L Average >3.0 mg/L High Optimally, the average of HS-CRP results repeated two weeks apart should be used for risk assessment. ID Date Data Source [id number] 12/09/2020 05:43:00 AM [facility] Name Value Range Interpretation Code Description Data Aydee rce(s) Supporting Document(s) Ferritin [Mass/volume] in Serum or Plasma 117.6 ng/mL 5.0 - 244 [facility] ID Date Data Source [id number] 12/09/2020 05:43:00 AM [facility] Value Range Interpretation Code Description Data Aydee rce(s) Supporting Document(s) Lactate dehydrogenase [Enzymatic activity/volume] in Serum o r Plasma 189 U/L 135 - 225 [facility] ID Date Data Source [id number] 12/08/2020 05:42:00 PM [facility] Name Value Range Interpretation Code Description Data Aydee rce(s) Supporting Document(s) COMPREHENSIVE METABOLIC PANEL [facility] COMPREHENSIVE METABOLIC PANEL Sodium [Moles/volume] in Serum or Plasma 132 mEq/L 134 - 153 L [facility] Potassium [Moles/volume] in Serum or Plasma 4.7 mEq/L 3.6 - 5.0 [facility] Chloride [Moles/volume] in Serum or Plasma 97 mEq/L 98 - 107 L [facility] Carbon dioxide, total [Moles/volume] in Serum or Plasma 24 MEQ/L 22 - 30 [facility] Glucose [Mass/volume] in Serum or Plasma 297 MG/DL 70 - 99 H [facility] BUN 19 MG/DL 7 - 21 [facility] Creatinine [Mass/volume] in Serum or Plasma 0.8 MG/DL 0.7 - 1.5 [facility] BUN/CREAT 24 8 - 27 [facility] Protein [Mass/volume] in Serum or Plasma 6.5 G/DL 6.3 - 8.2 [facility] Albumin [Mass/volume] in Serum or Plasma 3.1 G/DL 3.9 - 5.0 L [facility] Globulin [Mass/volume] in Serum by calculation 3.4 GM/DL 2.4 - 3.2 H [facility] A/G RATIO 0.9 0.8 - 2.0 [facility] Calcium [Mass/volume] in Serum or Plasma 8.3 MG/DL 8.4 - 10.2 L [facility] Bilirubin.total [Mass/volume] in Serum or Plasma <0.7 MG/DL 0.2 - 1.3 [facility] Alkaline phosphatase [Enzymatic activity/volume] in Serum or Plasma 100 U/L 38 - 126 [facility] Aspartate aminotransferase [Enzymatic activity/volume] in Serum or Plasma 21 U/L 5 - 40 [facility] Alanine aminotransferase [Enzymatic activity/volume] in Seru m or Plasma 11 U/L 7 - 56 [facility] Anion gap 3 in Serum or Plasma 11.0 mmol/L 8.0 - 16.0 [facility] AGE 70 yrs [facility] NON-AA GFR >60 mL/min [facility] ital AFR AMER GFR >60 mL/min [facility] Ho spital Male GFR In [...] >32 mL/min Normal ID Date Data Source [id number] 12/08/2020 05:10:00 PM EST [facility] Name Value Range Interpretation Code Description Data Aydee rce(s) Supporting Document(s) CBC W/AUTOMATED DIFF [facility] COMPLETE BLOOD COUNT Leukocytes [#/volume] in Blood by Automated count 3.9 10^3/uL 4.2 - 1 1.0 L [facility] Erythrocytes [#/volume] in Blood by Automated count 3.87 10^6/uL 4. 50 - 6.30 L [facility] Hemoglobin [Mass/volume] in Blood 9.5 g/dL 14.0 - 16.0 L [facility] Hematocrit [Volume Fraction] of Blood by Automated count 29.4 % 4 1.0 - 51.0 L [facility] Erythrocyte mean corpuscular volume [Entitic volume] by Auto mated count 76.0 fL 80.0 - 94.0 L [facility] Erythrocyte mean corpuscular hemoglobin [Entitic mass] by Automated count 24.5 pg 27.0 - 34.0 L [facility] Erythrocyte mean corpuscular hemoglobin concentration [Mass/volume] by Automated count 32.3 g/dL 31.0 - 36.0 [facility] Erythrocyte distribution width [Ratio] by Automated count 15.8 % 11.5 - 14.8 H [facility] Platelets [#/volume] in Blood by Automated count 221 10^3/uL 150 - 45 0 [facility] Platelet mean volume [Entitic volume] in Blood by Automated count 9.8 fL 7.4 - 10.4 [facility] Neutrophils/100 leukocytes in Blood by Automated count 66.0 % 37. 0 - 80.0 [facility] Lymphocytes/100 leukocytes in Blood by Manual count 24.6 % 25.0 - 40.0 L [facility] Monocytes/100 leukocytes in Blood by Automated count 8.1 % 3.0 - 8.0 H [facility] Eosinophils/100 leukocytes in Blood by Automated count 0.5 % 0.0 - 7.0 [facility] Basophils/100 leukocytes in Blood by Automated count 0.3 % 0.0 - 2.0 [facility] %IG 0.5 % 0.0 - 0.0 H [facility] al %NRBC 0.0 % 0.0 - 0.0 [facility] al Neutrophils [#/volume] in Blood by Automated count 2.60 10^3/uL 2.00 - 6.90 [facility] Lymphocytes [#/volume] in Blood by Automated count 0.97 10^3/uL 0.60 - 3.40 [facility] Monocytes [#/volume] in Blood by Automated count 0.32 10^3/uL 0.00 - 0.90 [facility] Eosinophils [#/volume] in Blood by Automated count 0.02 10^3/uL 0.00 - 0.70 [facility] Basophils [#/volume] in Blood by Automated count 0.01 10^3/uL 0.00 - 0.20 [facility] #IG 0.02 10^3/uL 0.00 - 0.10 [facility] #NRBC 0.00 10^3/uL 0.00 - 0.00 [facility] MANUAL DIFF NOT INDICATED [facility] RBC MORPH NOT INDICATED [facility] ID Date Data Source [id number] 12/08/2020 10:59:[address] [address] NAME: CHACOH RING#: [id number] PHYSICIAN: NOLAN TRIANA DOACCOUNT #: [id number] ADM. DATE: 12/05/20PATIENT : 50 DISCH. DATE: [...] rce(s) Supporting Document(s) ID Date Data Source [id number] 12/08/2020 07:06:00 AM [facility] Name Value Range Interpretation Code Description Data Aydee rce(s) Supporting Document(s) GLU 109 mg/dL 70-110 [facility] Patients taking Sulfasalazine may have f alsely depressedGlucose levels. Patients taking Sulfapyridine may havefalsely elevated Glucose levels. Patients should be drawnfor Glucose before the initial administration of eitherdrug. BUN 16 mg/dL 7-23 [facility] CRE 0.681 mg/dL 0.500-1.300 [facility] GFR > 60 mL/min [facility] CHLORIDE 104 mmol/L 99-110 [facility] NA 137 mmol/L 136-147 [facility] POTASSIUM 4.5 mmol/L 3.5-5.1 [facility] TCO2 22 mmol/L 20-33 [facility] ANION GAP 15.5 10.0-20.0 [facility] CA 8.0 mg/dL 8.3-10.7 [facility] ID Date Data Source [id number] 12/08/2020 06:46:00 AM EST [facility] Name Value Range Interpretation Code Description Data Aydee rce(s) Supporting Document(s) WBC 5.22 x10E3/uL 4.0-10.5 [facility] RBC 3.82 x10E6/uL 4.70-6.00 [facility] Hemoglobin 9.2 g/dL 14.0-18.0 [facility] Hematocrit 28.9 % 42.0-52.0 [facility] MCV 75.7 fL 81.0-99.0 [facility] MCH 24.1 pg 27.0-31.0 [facility] MCHC 31.8 g/dL 32.7-35.6 [facility] RDW 15.7 % 11.5-14.0 [facility] Platelet count 251 x10E3/uL 150-450 [facility] MPV 10.4 fl 6.9-9.5 [facility] Neutrophils 56.2 % 34-64 N [facility] Lymphocytes 34.1 % 25-45 N [facility] Monocytes 8.0 % 1.7-10.6 [facility] Eosinophils 1.3 % 0.4-7.0 [facility] Basophils 0.2 % 0.1-2.0 [facility] Imm. Gran. 0.2 % 0.1-2.0 [facility] Abs. Neutro. 2.93 x10E3/uL 1.2-7.6 [facility] Abs. Lymph. 1.78 x10E3/uL 1.0-3.5 [facility] Abs. Miller. 0.42 x10E3/uL 0.1-1.0 N [facility] l Abs. Eosin. 0.07 x10E3/uL 0.1-0.7 [facility] Abs. Baso. 0.01 x10E3/uL 0.0-0.1 [facility] Abs. Imm. Gran. 0.01 x10E3/uL 0.0-0.1 N [facility] spital ANRBC% 0 % 0 [facility] ID Date Data Source [id number] 12/07/2020 10:39:00 PM EST [facility] COMMENTS TO LAB: STAT Name Value Range Interpretation Code Description Data Aydee rce(s) Supporting Document(s) GLU 378 mg/dL 70-110 [facility] Patients taking Sulfasalazine may have f alsely depressedGlucose levels. Patients taking Sulfapyridine may havefalsely elevated Glucose levels. Patients should be drawnfor Glucose before the initial administration of eitherdrug. ID Date Data Source [id number] 12/07/2020 11:02:00 AM EST [facility] COMMENTS TO LAB: add on Name Value Range Interpretation Code Description Data Aydee rce(s) Supporting Document(s) MAGNESIUM 1.6 mg/dL 1.6-2.6 [facility] ID Date Data Source [id number] 12/07/2020 08:37:00 AM [facility] [place], [place] [address]ZHRLDZYU NOTEPATIENT NAME: CHACHO RING PHYSICIAN: NOLAN TRIANA DOAUTHOR: Serafin Triana DO. DATE: 12/05/20 MR#: [id number] NOTE DATE: 12/07/20 RM#: [id number] TIME: 0844 : 50SubjectiveEvents Since Last EntryPatient seen and examined the room today. Patient is alert and awake andoriented this morning. No respiratory symptoms noted. Patient had a episodeof hypoglycemia with glucose level of 28 in the evening. No recurrence ofhypothermia.ObjectiveVital SignsVital Signs-24 HRS12/06600521 0703 1200 1400 1600Temp 98.6 98.2Pulse 84 91 95 98 94Resp 13 20 22 15B/P 122/73 121/89 124/76 130/75 142/88B/P MeanPulse Ox 92 94 96 96O2 DeliveryO2 Flow ItyuRrU719/12/06216908 2373 2148 2200 0000Temp 100.0 95.0 98.7Pulse 94 88 72 77 81Resp 15 23 14 11B/P 135/81 138/75 139/80 139/80 126/72B/P MeanPulse Ox 97 96 95 98O2 DeliveryO2 Flow JcccFxH975/16 12/07184439 1752 0201 0400 0400Temp 98.5 98.0Pulse 81 81 80 92Resp 12 12 25B/P 126/72 112/63 112/63 130/73B/P MeanPulse Ox 98O2 DeliveryO2 Flow FdhzNtV662/16 02767385 0600Temp 98.6Pulse 92Resp 24B/P 137/83B/P MeanPulse Ox 96O2 DeliveryO2 Flow BmicToT4Cvaimj/OutputIntake/Output Summary 24 hours12/06 1900 12/07 0700Intake Total [...] lower extremities.Psych/Mental Status mood neutralResultsLaboratory DataRecent Labs-24 hours/087441XdglhnbaoSvmstu (136 - 147 mmol/L) 135 LPotassium (3.5 [...] x10E3/uL) 0.00Nucleated RBC % (auto) (0 %) 5PuxbzhmgtpjrWukresbvixxf90/14 1927 BLOOD: Blood Culture - RECD12/05 1909 BLOOD: Blood Culture - RECDAssessment/PlanProblem List1. HypoglycemiaA&P- Patient has been off long-acting insulin.- Patient had episode of hypoglycemia with glucose level of 28. S/P D50 and C0H-Gtufczj was recently diagnosed with COVID.- Advance the [...] rce(s) Supporting Document(s) ID Date Data Source [id number] 12/07/2020 06:22:00 AM EST [facility] Name Value Range Interpretation Code Description Data Aydee rce(s) Supporting Document(s) GLU 233 mg/dL 70-110 [facility] Patients taking Sulfasalazine may have f alsely depressedGlucose levels. Patients taking Sulfapyridine may havefalsely elevated Glucose levels. Patients should be drawnfor Glucose before the initial administration of eitherdrug. BUN 13 mg/dL 7-23 [facility] CRE 0.794 mg/dL 0.500-1.300 [facility] GFR > 60 mL/min [facility] CHLORIDE 101 mmol/L 99-110 [facility] NA 135 mmol/L 136-147 L [facility] POTASSIUM 4.8 mmol/L 3.5-5.1 [facility] TCO2 25 mmol/L 20-33 [facility] ANION GAP 13.8 10.0-20.0 [facility] CA 8.2 mg/dL 8.3-10.7 [facility] ID Date Data Source [id number] 12/07/2020 06:08:00 AM EST [facility] Name Value Range Interpretation Code Description Data Aydee rce(s) Supporting Document(s) WBC 5.32 x10E3/uL 4.0-10.5 N [facility] RBC 3.82 x10E6/uL 4.70-6.00 L [facility] Hemoglobin 9.3 g/dL 14.0-18.0 L [facility] Hematocrit 29.4 % 42.0-52.0 L [facility] MCV 77.0 fL 81.0-99.0 L [facility] MCH 24.3 pg 27.0-31.0 L [facility] MCHC 31.6 g/dL 32.7-35.6 L [facility] RDW 15.9 % 11.5-14.0 H [facility] Platelet count 242 x10E3/uL 150-450 [facility] MPV 9.9 fl 6.9-9.5 H [facility] Neutrophils 61.8 % 34-64 N [facility] Lymphocytes 27.6 % 25-45 [facility] Monocytes 9.8 % 1.7-10.6 [facility] Eosinophils 0.4 % 0.4-7.0 N [facility] Basophils 0 % 0.1-2.0 L [facility] Imm. Gran. 0.4 % 0.1-2.0 [facility] Abs. Neutro. 3.29 x10E3/uL 1.2-7.6 [facility] Abs. Lymph. 1.47 x10E3/uL 1.0-3.5 [facility] Abs. Miller. 0.52 x10E3/uL 0.1-1.0 [facility] Abs. Eosin. 0.02 x10E3/uL 0.1-0.7 [facility] Abs. Baso. 0.00 x10E3/uL 0.0-0.1 [facility] Abs. Imm. Gran. 0.02 x10E3/uL 0.0-0.1 [facility] ANRBC% 0 % 0 [facility] ID Date Data Source [id number] 12/06/2020 10:42:00 PM [facility] [address] [place] [address] RESPIRATORY CARE REPORT ==== ---------NAME------- NUMBER SEX AGE ADMIT DISC. XRAY# F/C ERIC FLOR [id number] M 70 12/05/20 12/05/20 [id number] MB4 E/R DATE OF : 1950 M/R# [id number] #: [id number] TR-1B LOCATION: EMERGENCY DEPT EKG 07269 COMP LETE:12/05/20 15:18 [facility] [id number] PHYSICIAN: MOE Grover Name Value Range Interpretation Code Description Data Aydee rce(s) Supporting Document(s) ID Date Data Source [id number] 12/06/2020 10:24:00 [place] [address] PHONE: [phone] FAX: [phone] Name .................. : LUCITA FLOR Acct Number.................. : [id number] ROOM. ................. : TR-1B Number ................... : [id number] Stay type ............. : E/R Discharge Date......... ... : Admit Date ......... : 12/05/20 Admit Phys .................... : MOE Grover Date of ....... : 1950 Family Phys ................... : FERENCHAK Phone .................. : [phone] Age ................................ : 70 Film# .................. .:[id number] Sex ................................. : M Unsigned transcriptions are preliminary reports and do not represent a medical or legal document CT HEAD W/O CONTRAST [id number] COMPLETE:12/05/20 11:04 4305 Reason(s): Altered Mental Status [...] rce(s) Supporting Document(s) ID Date Data Source [id number] 12/06/2020 10:24:00 AM [facility] [address] [place] [address] PHONE: [phone] FAX: [phone] Name .................. : LUCITA FLOR Acct Number.................. : [id number] ROOM. ................. : -1B MR Number ................... : [id number] Stay type ............. : E/R Discharge Date......... ... : Admit Date ......... : 12/05/20 Admit Phys .................... : MOE Grover Date of ....... : 1950 Family Phys ................... : [facility] Phone .................. : [phone] Age ................................ : 70 Film# .................. .:[id number] Sex ................................. : M Unsigned transcriptions are preliminary reports and do not represent a medical or legal document CHEST PORTABLE [id number] COMPLETE:12/05/20 09:49 4302 Reason( s): Shortness of [...] rce(s) Supporting Document(s) ID Date Data Source [id number] 12/06/2020 09:54:[address] [id number] NOTEPATIENT NAME: CHACHO RING PHYSICIAN: NOLAN TRIANA DOAUTHOR: Serafin Triana DO. DATE: 12/05/20 MR#: [id number] NOTE DATE: 12/06/20 RM#: [id number] TIME: 1005 : 50SubjectiveEvents Since Last EntryPatient seen and examined the room today. Patient is alert and awake andoriented. Patient tolerated liquid diet. Glucose level is improving. Norecurrence of hypothermia.ObjectiveVital SignsVital Signs-24 HRS12/05116920 2761 2141 2200 0000Temp 96.1 98.7 98.4 97.7Pulse 86 88 85 86 86Resp 12 12 20 22B/P 109/74 94/60 108/71 110/70 109/57B/P MeanPulse Ox 98 97 98 96O2 DeliveryO2 Flow IinsJmO883/15 12/06 12/06 02090439 5820 0600 0917Temp 98.1 98.0 98.1Pulse 87 89 95 84Resp 21 12 21B/P 111/66 105/68 122/74 122/73B/P MeanPulse Ox 96 100 99O2 DeliveryO2 Flow QzjkVoC1Ctjsub/OutputIntake/Output Summary 24 hours12/05 1900 12/06 0700Intake Total [...] lower extremities.Psych/Mental Status mood neutralResultsLaboratory DataRecent Labs-24 hours12/05607518 0947 191 0515ChemistrySodium (136 - 147 mmol/L) 139 [...] 0.00Nucleated RBC % (auto) (0 %) 0 002/342488KgnlsrQlzve Color YellowUrine Appearance CloudyUrine pH (5.0 - 8.0) 5.5Ur Specific [place] (1.010 - 1.025) 1.017Urine Protein (Negative) 1+Urine Ketones (NEGATIVE) NegativeUrine Blood (NEGATIVE) 3+Urine Nitrite (Negative) NegativeUr Bilirubin Confirm (NEGATIVE) NegativeUrine Urobilinogen (0.2 - 1.0 mg/dL) 1.0Urine Leukocytes (Negative) 1+Urine RBC (NONE SEEN) >200 RBCs/HPFUrine WBC (NONE SEEN) 0-2 WBCs/HPFUrine Bacteria (NONE SEEN) RareUrine Glucose (NEGATIVE) NegativeMicrobiologyMicrobiology Last 24 hours12/05 1926 BLOOD: Blood Culture - RECD12/05 1909 BLOOD: Blood Culture - VYYJIyrbjkgfaRvtvgvexidtu58/14 1927 BLOOD: Blood Culture - RECD12/05 1909 BLOOD: Blood Culture - RECDAssessment/PlanProblem List1. UnresponsiveA&P- Currently patient is alert awake and oriented x3.-Suspect unresponsiveness secondary to severe hypoglycemia.-Upon arrival, patient glucose was still low while patient was on dextrosefluid; glucose of 52.-Patient's glucose level has been improving. Mentation continued improvement.2. HypoglycemiaA&P- -Patient presented to [facility] emergency room with unresponsiveness,hypothermia and hypoglycemia.-Glucose [...] hours.Patient was diagnosed with Covid in the assisted 2 to 3 days ago. Howeverpatient is still Covid positive. This may create barrier for dischargingpatient back to assisted per current guidelines.VTE ProphylaxisVTE Prophylaxis: Continue Lovenox.DATE SIGNED: 12/11/20 Electronically SignedTIME SIGNED: 1925 NOLAN TRIANA DO Name Value Range Interpretation Code Description Data Aydee rce(s) Supporting Document(s) ID Date Data Source [id number] 12/06/2020 07:24:00 AM EST [facility] Name Value Range Interpretation Code Description Data Aydee rce(s) Supporting Document(s) URINE COLOR Yellow [facility] UAPR Cloudy [facility] UGLU Negative NEGATIVE [facility] URINE BILIRUBIN [facility] Negative NEGATIVE [facility] USG 1.017 1.010-1.025 [facility] UBLO 3+ NEGATIVE [facility] UpH 5.5 5.0-8.0 [facility] UPRO 1+ Negative [facility] UUB 1.0 mg/dL 0.2-1.0 [facility] UNIT Negative Negative [facility] ULEU 1+ Negative [facility] ID Date Data Source [id number] 12/06/2020 07:24:00 AM EST [facility] Name Value Range Interpretation Code Description Data Aydee rce(s) Supporting Document(s) URINE RBC >200 RBCs/HPF NONE SEEN [facility] URINE WBC 0-2 WBCs/HPF NONE SEEN [facility] URINE BACTERIA Rare NONE SEEN [facility] l ID Date Data Source [id number] 12/06/2020 06:03:00 AM EST [facility] Name Value Range Interpretation Code Description Data Aydee rce(s) Supporting Document(s) GLU 107 mg/dL 70-110 [facility] Patients taking Sulfasalazine may have f alsely depressedGlucose levels. Patients taking Sulfapyridine may havefalsely elevated Glucose levels. Patients should be drawnfor Glucose before the initial administration of eitherdrug. BUN 13 mg/dL 7-23 [facility] CRE 0.653 mg/dL 0.500-1.300 [facility] GFR > 60 mL/min [facility] CHLORIDE 108 mmol/L 99-110 [facility] NA 140 mmol/L 136-147 [facility] POTASSIUM 3.9 mmol/L 3.5-5.1 [facility] TCO2 25 mmol/L 20-33 [facility] ANION GAP 10.9 10.0-20.0 [facility] CA 8.1 mg/dL 8.3-10.7 [facility] ID Date Data Source [id number] 12/06/2020 05:57:00 AM [facility] Name Value Range Interpretation Code Description Data Aydee rce(s) Supporting Document(s) WBC 4.95 x10E3/uL 4.0-10.5 [facility] RBC 3.57 x10E6/uL 4.70-6.00 [facility] Hemoglobin 8.7 g/dL 14.0-18.0 [facility] Hematocrit 27.2 % 42.0-52.0 [facility] MCV 76.2 fL 81.0-99.0 [facility] MCH 24.4 pg 27.0-31.0 [facility] MCHC 32.0 g/dL 32.7-35.6 [facility] RDW 15.8 % 11.5-14.0 [facility] Platelet count 247 x10E3/uL 150-450 [facility] ital MPV 9.7 fl 6.9-9.5 [facility] Neutrophils 53.9 % 34-64 [facility] Lymphocytes 37.0 % 25-45 [facility] Monocytes 7.7 % 1.7-10.6 [facility] Eosinophils 1.0 % 0.4-7.0 [facility] Basophils 0 % 0.1-2.0 [facility] Imm. Gran. 0.4 % 0.1-2.0 [facility] Abs. Neutro. 2.67 x10E3/uL 1.2-7.6 [facility] Abs. Lymph. 1.83 x10E3/uL 1.0-3.5 [facility] Abs. Miller. 0.38 x10E3/uL 0.1-1.0 [facility] Abs. Eosin. 0.05 x10E3/uL 0.1-0.7 [facility] Abs. Baso. 0.00 x10E3/uL 0.0-0.1 [facility] Abs. Imm. Gran. 0.02 x10E3/uL 0.0-0.1 N [facility] spital ANRBC% 0 % 0 [facility] ID Date Data Source [id number] 12/11/2020 10:17:00 AM EST [facility] Name Value Range Interpretation Code Description Data Aydee rce(s) Supporting Document(s) BLDC [facility] ID Date Data Source [id number] 12/05/2020 08:08:00 PM EST [facility] Name Value Range Interpretation Code Description Data Aydee rce(s) Supporting Document(s) MAGNESIUM 1.5 mg/dL 1.6-2.6 [facility] ID Date Data Source [id number] 12/05/2020 08:08:00 PM EST [facility] Name Value Range Interpretation Code Description Data Aydee rce(s) Supporting Document(s) GLU 52 mg/dL 70-110 [facility] Patients taking Sulfasalazine may have f alsely depressedGlucose levels. Patients taking Sulfapyridine may havefalsely elevated Glucose levels. Patients should be drawnfor Glucose before the initial administration of eitherdrug. BUN 17 mg/dL 7-23 [facility] CRE 0.701 mg/dL 0.500-1.300 [facility] GFR > 60 mL/min [facility] CHLORIDE 105 mmol/L 99-110 [facility] NA 139 mmol/L 136-147 [facility] POTASSIUM 4.1 mmol/L 3.5-5.1 [facility] TCO2 27 mmol/L 20-33 [facility] ANION GAP 11.1 10.0-20.0 [facility] CA 8.8 mg/dL 8.3-10.7 [facility] ID Date Data Source [id number] 12/05/2020 08:04:00 PM EST [facility] Name Value Range Interpretation Code Description Data Aydee rce(s) Supporting Document(s) TROPI < 0.015 ng/mL 0.000-0.079 N [facility] al TROPONIN HS 9.7 ng/L 3.0-82.3 [facility] ID Date Data Source [id number] 12/05/2020 07:59:00 PM EST [facility] Name Value Range Interpretation Code Description Data Aydee rce(s) Supporting Document(s) LACTIC ACID EMPERATRIZ 1.5 mmol/L 0.4-2.0 [facility] ID Date Data Source [id number] 12/05/2020 07:51:00 PM [facility] Name Value Range Interpretation Code Description Data Aydee rce(s) Supporting Document(s) D-DIMER 1.09 mg/L H [facility] CUT OFF VALUE = 0.5 mg/L The negative pr edictive value for DVT or PE is at 98% whenthe result is below the cut off. ID Date Data Source [id number] 12/05/2020 07:37:00 PM [facility] Name Value Range Interpretation Code Description Data Aydee rce(s) Supporting Document(s) WBC 4.36 x10E3/uL 4.0-10.5 [facility] RBC 3.86 x10E6/uL 4.70-6.00 L [facility] Hemoglobin 9.5 g/dL 14.0-18.0 [facility] Hematocrit 29.5 % 42.0-52.0 [facility] MCV 76.4 fL 81.0-99.0 L [facility] MCH 24.6 pg 27.0-31.0 [facility] MCHC 32.2 g/dL 32.7-35.6 [facility] RDW 15.9 % 11.5-14.0 H [facility] Platelet count 265 x10E3/uL 150-450 [facility] MPV 9.6 fl 6.9-9.5 [facility] Neutrophils 65.6 % 34-64 [facility] Lymphocytes 27.8 % 25-45 N [facility] Monocytes 6.2 % 1.7-10.6 N [facility] Eosinophils 0.2 % 0.4-7.0 L [facility] Basophils 0 % 0.1-2.0 L [facility] Imm. Gran. 0.2 % 0.1-2.0 N [facility] Abs. Neutro. 2.86 x10E3/uL 1.2-7.6 [facility] Abs. Lymph. 1.21 x10E3/uL 1.0-3.5 [facility] Abs. Miller. 0.27 x10E3/uL 0.1-1.0 [facility] Abs. Eosin. 0.01 x10E3/uL 0.1-0.7 [facility] Abs. Baso. 0.00 x10E3/uL 0.0-0.1 [facility] Abs. Imm. Gran. 0.01 x10E3/uL 0.0-0.1 N [facility] spital ANRBC% 0 % 0 [facility] ID Date Data Source [id number] 12/05/2020 07:10:00 PM EST [facility] [address] [address]RWEJHEH AND PHYSICALPATIENT NAME: CHACHO RING MR#: [id number] PHYSICIAN: NOLAN TRIANA DOAUTHOR: Nolan Triana DO DATE: 12/05/20 RM#: [id number] & PHYSICAL DATE: 12/05/20 : 50EVALUATION TIME: 1934HisChief Complaint/Admit ReasonUnresponsiveness, persistent hypoglycemia, hypothermiaHistory of Presenting IllnessPatient is a 70 years old male resident from assisted with a past medicalhistory significant for diabetes, atrial fibrillation, CHF, gout, hypertensionand recently diagnosed COVID presented to [facility] by EMS afterpatient was found unresponsive in the assisted. Patient was found to havepersistent hypoglycemia. Patient received a dose of D50 however patientglucose remain low. Patient started on D5W infusion. Patient was found tohave hypothermia, and patient started on the bear hugger. Due to lack of ICU,patient transferred to [facility] for further evaluation and management. Patient wasseen [...] numbn ess.PsychDenies: anxiety, depression.ExamVital SignsVital sign from [facility]: Temperature 93, blood pressure 166/106,heart rate 70, [...] intact, no rashPsych/Mental Status mood neutralData ReviewLaboratory WzfbQymlvbhrdzte98/14 1916 BLOOD: Blood Culture - ORD12/05 1900 BLOOD: Blood Culture - ORDImagingCXR from [place]: Mild pulmonary vascular congestion. Noinfiltrates.Assessment/PlanDiagnosis/Problem1. UnresponsiveA&P-CT of the head and [facility] was negative.-Suspect secondary to severe hypoglycemia.-[facility] emergency record demonstrated glucose level 14 on BMP.Patient continued receiving dextrose supplements.-Based on available record, patient was taking Tresiba 32 units daily and shortacting insulins.-Continue with D5NS. Continue glucose check every 4 hours. Continueneurochecks every 4 hours.2. HypoglycemiaA&P-Patient presented to [facility] emergency room with unresponsiveness,hypothermia and hypoglycemia.-Glucose [...] SIGNED: 12/11/20 Electronically SignedTIME SIGNED: 1925 NOLAN RTIANA DO Name Value Range Interpretation Code Description Data Aydee rce(s) Supporting Document(s) ID Date Data Source [id number] 12/11/2020 10:16:00 AM EST [facility] Name Value Range Interpretation Code Description Data Aydee rce(s) Supporting Document(s) [facility] ID Date Data Source [id number] 12/05/2020 09:38:00 AM [facility] 1 OrderSheet [facility] Emergency Department [address] [place] [address] Phone #: [phone] 12/05/2020 09:36 Patient: CHACHO RING Sex: M [...] 10:41 11:17 Sony Spaulding) Quentin Coelho ; Lilli Spaulding R.N., R.N.COVID-19 [facility] STAT 09:49 12/05/2020 10:41 Jasson,(Symptomatic as Quentin Coelho ; Lilli PruittDefined by CDC)(12/05/2020) (NotFirst Test) (NotHospitalized) (Not)(Resident inCongregate CareSetting) (NotEmployed inHealthcare Setting)Influenza Nasal A B STAT 09:49 12/05/2020 10:41 Moe Spaulding Jack ; Lilli PruittBMP STAT 12:52 12/05/2020 13:06 Moe Azar Jack ; Amber R.N. 2 OrderSheet [facility] Emergency Department [address] [place] [address] Phone #: ext- [phone] 12/05/2020 09:36 Patient: [...] rce(s) Supporting Document(s) ID Date Data Source [id number] 12/05/2020 09:38:00 AM EST [facility] 1 Medication Reconciliation Report [facility] Emergency Department [address] [place] [address] Phone #: ext- [phone] 12/05/2020 09:36 Patient: [...] 1 tablet, daily 2 Medication Reconciliation Report [facility] Emergency Department [address] [place] [address] Phone #: ext- [phone] 12/05/2020 09:36 Patient: [...] source(s) of the original Home Medication information:patient's assisted recordThe following Medications were given to the [...] rce(s) Supporting Document(s) ID Date Data Source [id number] 12/05/2020 09:38:00 AM EST [facility] 1 Medication Administration Record [facility] Emergency Department [address] [place] [address] Phone #: ext- [phone] 12/05/2020 09:36 Patient: [...] rce(s) Supporting Document(s) ID Date Data Source [id number] 12/05/2020 09:38:00 AM [facility] 1 General Instructions [facility] Emergency Department [address] [place] [address] Phone #: [phone]- [phone] 12/05/2020 09:36 Patient: CHACHO RING Sex: M : 1950 Age: 70yHypoglycemia with coma- associated with type 1 diabetes.Coronavirus COVID-19.Urinary retention with enlarged prostate.Moderate hypothermia with altered mental status. No hypothermia secondary to immersion or exposure.(Electronically signed by Quentin Coelho 12/05/2020 16:43) Name Value Range Interpretation Code Description Data Aydee rce(s) Supporting Document(s) ID Date Data Source [id number] 12/05/2020 09:38:00 AM [facility] 1 Clinical Report - Nurses [facility] Emergency Department [address] [place] [address] Phone #: ext- [phone] 12/05/2020 09:36 Patient: CHACHO RING Sex: M : 1950 Age: 70yTRIAGEArrived by EMS.Triage time: 09:37 12/05/2020. Acuity: LEVEL 2.Chief Complaint: (Hypoglycemia, unresponsive).Not alert.Onset: today. Onset. (unknown last well known time). ( Per EMS pt was unresponsive per call but wasresponsive on arrival, FS per EMS was 41, glucagon had been administered by NC before this; Per EMSpt went unresponsive for them 5 times. 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 --09:41 12/05/20 Lilli Spaulding R.N.late entry - 09:40 12/05/20.SEPSIS SCREEN: SIRS SCREEN POSITIVE: temperature less than 36 degrees C (96.8 degrees F).--10:36 12/05/20 iLlli Spaulding R.N.09:40 12/05/20. BP: 166/106. MAP: 126. [...] Spaulding R.N. 2 Clinical Report - Nurses [facility] Emergency Department [address] [place] [address] Phone #: ext- [phone] 12/05/2020 09:36 Patient: [...] Lilli Spaulding R.N.Medication/allergy information source: the patient's assisted record. --09:41 12/05/20 Lilli Spaulding R.N.ADDITIONAL SURGERIES:Hernia Repair.Total Hip Replacement. --11:07 12/05/20 Lilli Spaulding R.N.HistoryPAST MEDICAL HX: Immunizations: status is unknown.SOCIAL HX: Smoker - current status unknown. No alcohol use or drug use. No recent travel. He was 3 Clinical Report - Nurses [facility] Emergency Department [address] [place] [address] Phone #: [phone] ext- [phone] 12/05/2020 09:36 Patient: CHACHO RING Sex: M [...] very cold,). 4 Clinical Report - Nurses [facility] Emergency Department [address] [place] [address] Phone #: ext- [phone] 12/05/2020 09:36 [id number] Sex: M : 1950 Age: 70y --10:39 [...] Spaulding R.N. late entry - 09:45 12/05/20. cafeteria monitor, NIBP monitor and pulse oximeter placed on patient; teletypesetter monitor- Lead II; monitor alarms on; monitor strip [...] pt status.). 5 Clinical Report - Nurses [facility] Emergency Department [address] [place] [address] Phone #: ext- [phone] 12/05/2020 09:36 Patient: [...] to CT by stretcher with mask and bioprocessing manufacturing technician. --11:26 12/05/20 Lilli Spaulding R.N.Care transferred and report given (Kat Azar RN). --11:26 12/05/20 Lilli Spaulding R.N.Patient returned f rom CT by stretcher with mask and bioprocessing manufacturing technician. --11:44 12/05/20 Lilli Spaulding R.N.11:44 12/05/20. BP: 142/74. MAP: 96. HR: 64. RR: 20. O2 saturation: 100%. --11:44 12/05/20 Lilli Spaulding R.N.11:56 12/05/20. BP: 131/80. MAP: 97. HR: 65. RR: 16. O2 saturation: 100%. --11:56 12/05/20 Lilli Spaulding R.N.Oxygen administered by nasal cannula. cafeteria monitor, NIBP monitor and pulse oximeter placed onpatient; monitor alarms on. Patient gowned. Reassurance given. 6 Clinical Report - Nurses [facility] Emergency Department [address] [place] [address] Phone #: ext- [phone] 12/05/2020 09:36 Patient: [...] Spaulding R.N. 7 Clinical Report - Nurses [facility] Emergency Department [address] [place] [address] Phone #: ext- [phone] 12/05/2020 09:36 Patient: [...] Lilli Spaulding R.N.late entry - 14:00 12/05/20. cafeteria monitor, NIBP monitor and pulse oximeter placed on [...] Georgia Azar R.N.late entry - 15:00 12/05/20. cafeteria monitor, NIBP monitor and pulse oximeter placed on [...] if they 8 Clinical Report - Nurses [facility] Emergency Department [address] [place] [address] Phone #: ext- [phone] 12/05/2020 09:36 Patient: [...] Azar R.N. late entry - 16:00 12/05/20. cafeteria monitor, NIBP monitor and pulse oximeter placed on [...] 12/05/2020. Condition at departure: improved. Transferred to [facility]. Visit overview, summary of care (CCDA), Emtala forms and Face Sheet provided to EMS and transfer facility via paper and fax. Transported via ambulance by EMS with monitor, IV and mask. Report was given to a nurse. Report included information regarding patient's care, treatment, allergies and condition including: recent changes, current and abnormal vital signs and 9 Clinical Report - Nurses [facility] Emergency Department [address] [place] [address] Phone #: ext- [phone] 12/05/2020 09:36 Patient: CHACHO RING Sex: M : 1950 Age: 70y abnormal labs. Report included treatment information regarding medications given or pending and home medications; type and amount of IV fluids and medications infusing and total volume infused. All questions were answered. Report was acknowledged and care was transferred. ([facility]ON ICU @205). --16:30 12/05/20 Georgia Azar R.N. 16:15 12/05/20. BP: 139/80. MAP: 99. HR: 77. RR: 19. O2 saturation: 100% on room air. Temp: 95.7 F (rectal). Martinez-Vitale pain scale: 10. --16:30 12/05/20 Georgia Azar R.N.Locked/Released at 12/05/2020 16:39 by Georgia Azar R.N. Name Value Range Interpretation Code Description Data Aydee rce(s) Supporting Document(s) ID Date Data Source [id number] 12/05/2020 09:38:00 AM [facility] 1 Clinical Report - Physicians/Mid Levels [facility] Emergency Department [address] [place] [address] Phone #: ext- [phone] 12/05/2020 09:36 Patient: [...] to arrival. The patient was found unresponsive. custodial resident. Medication was given prior to arrival (glucagon). No weakness. No difficulty walking. (Patient reportedly COVID positive at [facility]. He was not answering questions or responding when EMS arrived at assisted. He's had improvement on route. Given Glucagon prior to arrival. Accucheck at assisted was 40).REVIEW OF SYSTEMSUnobtainable due to patient's altered mental status. No vomiting. He has had back pain and pain.PAST HISTORYSee nurses notes. Problems: Atrial Fibrillation. Hypertension. Congestive Heart Failure. Diabetes Mellitus. Hypoglycemia. Gout. Additional Surgeries: Hernia Repair. Total Hip Replacement.SOCIAL HISTORYNever smoker. Resides in a assisted.FAMILY HISTORYUnable to obtain family medical history due to the patient's altered mental status.ADDITIONAL NOTESThe nursing notes have been reviewed. 2 Clinical Report - Physicians/Mid Levels [facility] Emergency Department [address] [place] [address] Phone #: ext- [phone] 12/05/2020 09:36 Patient: CHACHO RING Sex: M [...] Normal 3 Clinical Report - Physicians/Mid Levels [facility] Emergency Department [address] [place] [address] Phone #: ext- [phone] 12/05/2020 09:36 Patient: [...] 2.0) 4 Clinical Report - Physicians/Mid Levels [facility] Emergency Department [address] [place] [address] Phone #: ext- [phone] 12/05/2020 09:36 Patient: [...] Male GFR Interprentation 20-49 yrs >60 mL/min Zvtyni02-80 yrs >56 mL/min Normal 60-69 yrs >49 mL/min Normal 70-79yrs>42 mL/min Normal 80 and above >35 mL/min Normal Female GFRInterpretation 20-39 yrs >60 mL/min Normal 40-49 yrs >58 mL/minNormal 50-59 yrs >51 mL/min Normal 60-69 yrs >45 mL/min Tdpxvv28-77 yrs >39 mL/min Normal 80 and above [...] (NORMAL: NONECOVID-19 CAH: (FELI: 12/05/2020 10:20) ( [facility] 12/05/2020 11:27) Final results Test Result Flag [...] OR CLEARED MOLECULAR TESTS. NEGATIVE RESULTSDO NOT [id number] INFECTION AND SHOULD NOT BE USED THE SOLE BASISFOR PATIENT MANAGEMENT DECISIONS.Influenza Nasal A B: (FELI: 12/05/2020 10:20) ( [facility] 12/05/2020 11:09) Final results 5 Clinical Report - Physicians/Mid Levels [facility] Emergency Department [address] [place] [address] Phone #: ext- [phone] 12/05/2020 09:36 Patient: CHACHO RING Sex: M [...] 12/05/2020 11:59) In Progress [place] [address] PHONE: [phone] FAX: [phone] Name .................. : LUCITA FLOR Acct Number.................. : [id number] ROOM. ................. : TR-1B MR Number ................... : [id number] Stay type ............. : E/R Discharge Date......... ... : Admit Date ......... : 12/05/20 Admit Phys .................... : MOE Grover Date of ....... : 1950 Family Phys ................... : JUAN CARLOS Phone .................. : [phone] Age ................................ : 70 Film# .................. .:[id number] Sex ................................. : M Unsigned transcriptions are preliminary reports and do not represent a medical or legal document [place] PORTABLE [id number] COMPLETE:12/05/20 09:49 [id number] Reason(s): Shortness of Breath [...] <<REPDIST>> 6 Clinical Report - Physicians/Mid Levels [facility] Emergency Department [address] [place] [address] Phone #: ext- [phone] 12/05/2020 09:36 Patient: CHACHO RING Sex: M [...] care and medical consultation. Disposition: Transferred to [facility]. Condition: critical.CLINICAL IMPRESSION Hypoglycemia with coma- associated with type 1 diabetes. Coronavirus COVID-19. Urinary retention with enlarged prostate. Moderate hypothermia with altered mental status. No hypothermia secondary to immersion or exposure.(Electronically signed by Quentin Coelho 12/05/2020 16:43) Name Value Range Interpretation Code Description [facility] Supporting Document(s) ID Date Data Source [id number] 12/05/2020 09:38:00 AM [facility] VisitID: [id number] Date: 12:17[employer]-System[employer] overview faxed to [employer] with overview.(Electronically signed by Brian Blank - 12/05/2020 12:17) Name Value Range Interpretation Code Description Data [facility] rce(s) Supporting Document(s) ID Date Data Source [id number] 12/05/2020 01:50:00 PM [facility] Name Value Range Interpretation Code Description Data [facility] Supporting Document(s) BASIC METABOLIC PANEL [facility] BASIC METABOLIC PANEL Sodium [Moles/volume] in Serum or Plasma 135 mEq/L 134 - 153 [facility] Potassium [Moles/volume] in Serum or Plasma 4.0 mEq/L 3.6 - 5.0 [facility] Chloride [Moles/volume] in Serum or Plasma 102 mEq/L 98 - 107 [facility] Carbon dioxide, total [Moles/volume] in Serum or Plasma 25 MEQ/L 22 - 30 [facility] Glucose [Mass/volume] in Serum or Plasma 14 MG/DL 70 - 99 LL [facility] CALL/ READ BACK SABIHA RN TRANSPORT [facility] BY: [facility] 135[facility] pital BUN 20 MG/DL 7 - [facility] al Creatinine [Mass/volume] in Serum or Plasma 0.5 MG/DL 0.7 - 1.5 L [facility] BUN/CREAT 40 8 - 27 H [facility] al Calcium [Mass/volume] in Serum or Plasma 8.6 MG/DL 8.4 - 10.2 [facility] Anion gap 3 in Serum or Plasma 8.0 mmol/L 8.0 - 16.0 [facility] AGE 70 yrs [facility] al AFR AMER GFR >60 mL/min [facility] Ho spital NON-AA GFR >60 mL/min [facility] ital Male GFR Inter prentation 20-49 yrs [...] >32 mL/min Normal ID Date Data Source [id number] 12/05/2020 11:32:00 AM EST [facility] Name Value Range Interpretation Code Description Data Aydee rce(s) Supporting Document(s) URINALYSIS [facility] [place] URINALYSIS SOURCE R [facility] COLOR yellow NORMAL: Yellow [facility] H ospital CLARITY clear NORMAL: Clear [facility] Ho spital Specific gravity of Urine by Test strip 1.010 1.001 - 1.030 [facility] pH 6.5 5 - 9 [facility] al Glucose [Mass/volume] in Urine by Test strip NORM NORMAL: Negat [facility] Bilirubin.total [Presence] in Urine by Test strip NEG NORMAL: Negative [facility] Ketones [Presence] in Urine by Test strip NEG NORMAL: Negative [facility] Protein [Mass/volume] in Urine by Test strip 30 NORMAL: Negat [facility] Nitrite [Presence] in Urine by Test strip NEG NORMAL: Negative [facility] BLOOD 25 NORMAL: Negative [facility] Leukocyte esterase [Presence] in Urine by Test strip NEG MICKEY L: Negative [facility] Urobilinogen [Mass/volume] in Urine by Test strip NOR less gianna n 1.0 mg/dL [facility] MICROSCOPIC See Below [facility] WBC 1 - 3 NORMAL: NONE SEEN [facility] Erythrocytes [#/volume] in Urine by Test strip 10 - 15 NORMAL: NON E SEEN [facility] EPITHELIAL FEW NORMAL: NONE SEEN [facility] Bacteria [Presence] in Urine sediment by Light microscopy Tr joel NORMAL: NONE SEEN [facility] ID Date Data Source [id number] 12/05/2020 10:20:00 AM EST [facility] Name Value Range Interpretation Code Description Data Aydee rce(s) Supporting Document(s) COVID19 Case rprt DETECTED [facility] This lab was ordered by [facility] and reported by [facility]. ID Date Data Source [id number] 12/05/2020 11:26:00 AM EST [facility] DETECTEDDETECTED{ PROCEDURAL C ONTROL VALID KIT LOT [...] rce(s) Supporting Document(s) ID Date Data Source [id number] 12/05/2020 11:08:00 AM [facility] Name Value Range Interpretation Code Description Data Aydee rce(s) Supporting Document(s) Influenza virus A Ag [Presence] in Nasopharynx by Immunoassa y NEGATIVE NORMAL: NEGATIVE [facility] Influenza virus B Ag [Presence] in Nasopharynx by Immunoassa y NEGATIVE NORMAL: NEGATIVE [facility] NEGATIVENEGATIVE PROCEDURAL CO NTROL VALID KIT LOT [...] other patient managementdecisions. ID Date Data Source [id number] 12/10/2020 04:51:00 PM [facility] [id number] Name Value Range Interpretation Code Description Data Aydee rce(s) Supporting Document(s) Bacteria identified in Blood by Culture [facility] NO GROWTH AFTER 5 DAYS ID Date Data Source [id number] 12/12/2020 11:46:00 AM [facility] Name Value Range Interpretation Code Description Data Aydee rce(s) Supporting Document(s) CULTURE BLOOD [facility] spital _CULTURE BLOOD_ [place] [address] CLIA# [id number] SEE SCANNED REPORT{ PRELIM ID Date Data Source [id number] 12/05/2020 10:50:00 AM [facility] Name Value Range Interpretation Code Description Data Aydee rce(s) Supporting Document(s) Lactate [Moles/volume] in Serum or Plasma 2.5 MMOL/L 0.2 - 2.2 H [facility] ID Date Data Source [id number] 12/05/2020 10:47:00 AM EST [facility] Name Value Range Interpretation Code Description Data Aydee rce(s) Supporting Document(s) COMPREHENSIVE METABOLIC PANEL [facility] COMPREHENSIVE METABOLIC PANEL Sodium [Moles/volume] in Serum or Plasma 135 mEq/L 134 - 153 [facility] Potassium [Moles/volume] in Serum or Plasma 4.1 mEq/L 3.6 - 5.0 [facility] Chloride [Moles/volume] in Serum or Plasma 99 mEq/L 98 - 107 [facility] Carbon dioxide, total [Moles/volume] in Serum or Plasma 28 MEQ/L 22 - 30 [facility] Glucose [Mass/volume] in Serum or Plasma 72 MG/DL 70 - 99 [facility] BUN 17 MG/DL 7 - 21 [facility] Creatinine [Mass/volume] in Serum or Plasma 0.7 MG/DL 0.7 - 1.5 [facility] BUN/CREAT 24 8 - 27 [facility] al Protein [Mass/volume] in Serum or Plasma 8.9 G/DL 6.3 - 8.2 H [facility] Albumin [Mass/volume] in Serum or Plasma 4.0 G/DL 3.9 - 5.0 [facility] Globulin [Mass/volume] in Serum by calculation 4.9 GM/DL 2.4 - 3.2 H [facility] A/G RATIO 0.8 0.8 - 2.0 [facility] Calcium [Mass/volume] in Serum or Plasma 9.3 MG/DL 8.4 - 10.2 [facility] Bilirubin.total [Mass/volume] in Serum or Plasma <0.7 MG/DL 0.2 - 1.3 [facility] Alkaline phosphatase [Enzymatic activity/volume] in Serum or Plasma 123 U/L 38 - 126 [facility] Aspartate aminotransferase [Enzymatic activity/volume] in Serum or Plasma 21 U/L 5 - 40 [facility] Alanine aminotransferase [Enzymatic activity/volume] in Seru m or Plasma 11 U/L 7 - 56 [facility] Anion gap 3 in Serum or Plasma 8.0 mmol/L 8.0 - 16.0 [facility] AGE 70 yrs [facility] Hospit al NON-AA GFR >60 mL/min [facility] Hosp ital AFR AMER GFR >60 mL/min [facility] Ho spital Male GFR In [...] >32 mL/min Normal ID Date Data Source [id number] 12/05/2020 10:18:00 AM EST [facility] Name Value Range Interpretation Code Description Data Aydee rce(s) Supporting Document(s) CBC W/AUTOMATED DIFF [facility] COMPLETE BLOOD COUNT Leukocytes [#/volume] in Blood by Automated count 9.0 10^3/uL 4.2 - 1 1.0 [facility] Erythrocytes [#/volume] in Blood by Automated count 4.60 10^6/uL 4. 50 - 6.30 [facility] Hemoglobin [Mass/volume] in Blood 11.4 g/dL 14.0 - 16.0 L [facility] Hematocrit [Volume Fraction] of Blood by Automated count 36.1 % 4 1.0 - 51.0 L [facility] Erythrocyte mean corpuscular volume [Entitic volume] by Auto mated count 78.5 fL 80.0 - 94.0 L [facility] Erythrocyte mean corpuscular hemoglobin [Entitic mass] by Automated count 24.8 pg 27.0 - 34.0 L [facility] Erythrocyte mean corpuscular hemoglobin concentration [Mass/volume] by Automated count 31.6 g/dL 31.0 - 36.0 [facility] Erythrocyte distribution width [Ratio] by Automated count 15.9 % 11.5 - 14.8 H [facility] Platelets [#/volume] in Blood by Automated count 428 10^3/uL 150 - 45 0 [facility] Platelet mean volume [Entitic volume] in Blood by Automated count 9.2 fL 7.4 - 10.4 [facility] Neutrophils/100 leukocytes in Blood by Automated count 51.1 % 37. 0 - 80.0 [facility] Lymphocytes/100 leukocytes in Blood by Manual count 40.1 % 25.0 - 40.0 H [facility] Monocytes/100 leukocytes in Blood by Automated count 7.0 % 3.0 - 8.0 [facility] Eosinophils/100 leukocytes in Blood by Automated count 1.0 % 0.0 - 7.0 [facility] Basophils/100 leukocytes in Blood by Automated count 0.2 % 0.0 - 2.0 [facility] %IG 0.6 % 0.0 - 0.0 H [facility] Hospit al %NRBC 0.0 % 0.0 - 0.0 [facility] al Neutrophils [#/volume] in Blood by Automated count 4.61 10^3/uL 2.00 - 6.90 [facility] Lymphocytes [#/volume] in Blood by Automated count 3.62 10^3/uL 0.60 - 3.40 H [facility] Monocytes [#/volume] in Blood by Automated count 0.63 10^3/uL 0.00 - 0.90 [facility] Eosinophils [#/volume] in Blood by Automated count 0.09 10^3/uL 0.00 - 0.70 [facility] Basophils [#/volume] in Blood by Automated count 0.02 10^3/uL 0.00 - 0.20 [facility] #IG 0.05 10^3/uL 0.00 - 0.10 [facility] H ospital #NRBC 0.00 10^3/uL 0.00 - 0.00 [facility] H ospital MANUAL DIFF NOT INDICATED [facility] RBC MORPH NOT INDICATED [facility] spital ID Date Data Source [id number] 12/12/2020 11:46:00 AM EST [facility] Name Value Range Interpretation Code Description Data Aydee rce(s) Supporting Document(s) CULTURE BLOOD [facility] spital _CULTURE BLOOD_ [place] [address] [facility]# [id number] SEE SCANNED REPORT{ PRELIM ID Date Data Source [id number] 11/30/2020 09:19:00 AM EST [facility] Name Value Range Interpretation Code Description Data Aydee rce(s) Supporting Document(s) COMPREHENSIVE METABOLIC PANEL [facility] COMPREHENSIVE METABOLIC PANEL Sodium [Moles/volume] in Serum or Plasma 133 mEq/L 134 - 153 L [facility] Potassium [Moles/volume] in Serum or Plasma 4.5 mEq/L 3.6 - 5.0 [facility] Chloride [Moles/volume] in Serum or Plasma 98 mEq/L 98 - 107 [facility] Carbon dioxide, total [Moles/volume] in Serum or Plasma 22 MEQ/L 22 - 30 [facility] Glucose [Mass/volume] in Serum or Plasma 410 MG/DL 70 - 99 [facility] CALL/ READ BACK MEME MASON [address] BY: HAYLEY [facility] Hospit al DATE/TIME 11.30.20 [facility] al BUN 26 MG/DL 7 - 21 H [facility] al Creatinine [Mass/volume] in Serum or Plasma 0.9 MG/DL 0.7 - 1.5 [facility] BUN/CREAT 29 8 - 27 H [facility] al Protein [Mass/volume] in Serum or Plasma 6.9 G/DL 6.3 - 8.2 [facility] Albumin [Mass/volume] in Serum or Plasma 3.3 G/DL 3.9 - 5.0 L [facility] Globulin [Mass/volume] in Serum by calculation 3.6 GM/DL 2.4 - 3.2 H [facility] A/G RATIO 0.9 0.8 - 2.0 [facility] Calcium [Mass/volume] in Serum or Plasma 8.8 MG/DL 8.4 - 10.2 [facility] Bilirubin.total [Mass/volume] in Serum or Plasma <0.7 MG/DL 0.2 - 1.3 [facility] Alkaline phosphatase [Enzymatic activity/volume] in Serum or Plasma 94 U/L 38 - 126 [facility] Aspartate aminotransferase [Enzymatic activity/volume] in Serum or Plasma 11 U/L 5 - 40 [facility] Alanine aminotransferase [Enzymatic activity/volume] in Seru m or Plasma 10 U/L 7 - 56 [facility] Anion gap 3 in Serum or Plasma 13.0 mmol/L 8.0 - 16.0 [facility] AGE 70 yrs [facility] Hospit al NON-AA GFR >60 mL/min [facility] Hosp ital AFR AMER GFR >60 mL/min [facility] Ho spital Male GFR In [...] >32 mL/min Normal ID Date Data Source [id number] 11/30/2020 09:10:00 AM [facility] Name Value Range Interpretation Code Description Data Aydee rce(s) Supporting Document(s) Magnesium [Mass/volume] in Serum or Plasma 1.4 MG/DL 1.7 - 2.2 L [facility] ID Date Data Source [id number] 11/30/2020 09:10:00 AM [facility] Name Value Range Interpretation Code Description Data Aydee rce(s) Supporting Document(s) Iron [Mass/volume] in Serum or Plasma 30 UG/DL 42 - 135 L [facility] Iron binding capacity.unsaturated [Mass/volume] in Serum or Plasma 296 UG/DL 112 - 347 [facility] Iron binding capacity [Mass/volume] in Serum or Plasma 326 ug/dL 250 - 450 [facility] Iron saturation [Mass Fraction] in Serum or Plasma 9 % [facility] ID Date Data Source [id number] 11/30/2020 09:10:00 AM [facility] Name Value Range Interpretation Code Description Data Aydee rce(s) Supporting Document(s) [facility] Cholesterol [Mass/volume] in Serum or Plasma 112 MG/DL 131 - 200 L [facility] Deprecated Triglyceride [Mass/volume] in Serum or Plasma 79 MG/DL 3 5 - 160 [facility] HDL 46 MG/DL 29 - 86 [facility] Ch[facility] in LDL [Mass/volume] in Serum or Plasma by Direc t assay 54 mg/dL 65 - 175 L [facility] Cholesterol.total/Cholesterol in HDL [Mass Ratio] in Serum o r Plasma 2.4 3.4 - 4.9 L [facility] LDL/HDL 1.17 1.00 - 3.55 [facility] ital CVE RISK CHOL/HDL LDL/HDLMEN: 1/2 AVERAGE 3.43 1.00 AVERAGE 4.97 3.55 2X AVERAGE 9.55 6.25 3X AVERAGE 23.99 7.99WOMEN: 1/2 AVERAGE 3.27 1.47 AVERAGE 4.44 3.22 2X AVERAGE 7.05 5.03 3X AVERAGE 11.04 6.14 ID Date Data Source [id number] 11/30/2020 09:04:00 AM [facility] Value Range Interpretation Code Description Data Aydee rce(s) Supporting Document(s) Thyroxine (T4) free index in Serum or Plasma by calculation 1.15 NG/DL 0.93 - 1.70 [facility] ID Date Data Source [id number] 11/30/2020 09:04:00 AM [facility] Value Range Interpretation Code Description Data Aydee rce(s) Supporting Document(s) Ferritin [Mass/volume] in Serum or Plasma 96.0 ng/mL 5.0 - 244 [facility] ID Date Data Source [id number] 11/30/2020 09:04:00 AM [facility] Value Range Interpretation Code Description Data Aydee rce(s) Supporting Document(s) Thyrotropin [Units/volume] in Serum or Plasma by Detec tion limit <= 0.05 mIU/L 4.35 uIU/mL 0.47 - 5.01 [facility] ID Date Data Source [id number] 11/30/2020 08:53:00 AM EST [facility] Name Value Range Interpretation Code Description Data Aydee rce(s) Supporting Document(s) Hemoglobin A1c/Hemoglobin.total in Blood 8.7 % 4.4 - 6.1 H [facility] {A1]{HB] ID Date Data Source [id number] 11/30/2020 08:22:00 AM [facility] Name Value Range Interpretation Code Description Data Aydee rce(s) Supporting Document(s) CBC NO DIFF [facility] ital COMPLETE BLOOD COUNT Leukocytes [#/volume] in Blood by Automated count 3.8 10^3/uL 4.2 - 1 1.0 L [facility] Erythrocytes [#/volume] in Blood by Automated count 3.30 10^6/uL 4. 50 - 6.30 L [facility] Hemoglobin [Mass/volume] in Blood 8.2 g/dL 14.0 - 16.0 L [facility] Hematocrit [Volume Fraction] of Blood by Automated count 26.1 % 4 1.0 - 51.0 L [facility] Erythrocyte mean corpuscular volume [Entitic volume] by Auto mated count 79.1 fL 80.0 - 94.0 L [facility] Erythrocyte mean corpuscular hemoglobin [Entitic mass] by Automated count 24.8 pg 27.0 - 34.0 L [facility] Erythrocyte mean corpuscular hemoglobin concentration [Mass/volume] by Automated count 31.4 g/dL 31.0 - 36.0 [facility] Erythrocyte distribution width [Ratio] by Automated count 15.6 % 11.5 - 14.8 H [facility] Platelets [#/volume] in Blood by Automated count 246 10^3/uL 150 - 45 0 [facility] Platelet mean volume [Entitic volume] in Blood by Automated count 9.9 fL 7.4 - 10.4 [facility] ID Date Data Source [id number] 11/30/2020 12:00:00 AM EST [facility] Name Value Range Interpretation Code Description Data Aydee e(s) Supporting Document(s) SARS coronavirus 2 Ag Negative [facility] This lab was ordered by [facility] and rep orted by [facility]. ID Date Data Source [id number] 11/29/2020 12:00:00 PM EST [facility] Name Value Range Interpretation Code Description Data Aydee rce(s) Supporting Document(s) SARS coronavirus 2 RNA Detected [facility] This lab was ordered by [facility] Valentino hopper and reported by [facility]. ID Date Data Source [id number] 12/01/2020 03:13:00 PM EST [facility] Name Value Range Interpretation Code Description Data Aydee rce(s) Supporting Document(s) SARS-CoV-2, TINY Detected Not Detected [facility] This nucleic acid amplification test was developed and its performancecharacteristics determined by [employer]. Nucleic acidamplification tests include RT-PCR and TMA. [...] in this assay. ID Date Data Source [id number] 11/25/2020 05:44:00 AM EST [facility] Name Value Range Interpretation Code Description Data Aydee rce(s) Supporting Document(s) SARS coronavirus 2 RNA [Presence] in Res piratory specimen by TINY with probe detection NEGATIVE [facility] This lab was ordered by [facility] a nd reported by [facility]. ID Date Data Source [id number] 11/08/2020 09:49:00 PM EST [facility] Name Value Range Interpretation Code Description Data Aydee rce(s) Supporting Document(s) SARS coronavirus 2 RNA [Presence] in Res piratory specimen by TINY with probe detection NEGATIVE [facility] This lab was ordered by [facility] a nd reported by [facility]. ID Date Data Source [id number] 10/23/2020 01:52:00 AM EST [facility] Name Value Range Interpretation Code Description Data Aydee rce(s) Supporting Document(s) SARS coronavirus 2 RNA [Presence] in Res piratory specimen by TINY with probe detection [facility] This lab was ordered by [facility] a nd reported by [facility]. ID Date Data Source LIPID PANEL (CARDIAC RISK) 10/19/2020 12:00:00 AM EST eCW1 ( [facility]) Name Value Range Interpretation Code Description Data Aydee rce(s) Supporting Document(s) Cholesterol in HDL [Moles/volume] in Serum or Plasma 48 >40 HDL CHOLESTEROL eCW1 ([facility]) Triglyceride [Mass/volume] in Serum or Plasma by calculation 189 <150 TRIGLYCERIDES LEVEL eCW1 ([facility]) Cholesterol [Moles/volume] in Serum or Plasma 134 <200 CHOLESTEROL LEVEL eCW1 ([facility]) Cholesterol in LDL [Mass/volume] in Serum or Plasma by calculation 48 <100 LDL CHOLESTEROL eCW1 ([facility]) 86 NON-HDL-C eCW1 ([facility]) 2.791 <5 CHOLESTEROL RISK RATIO eCW1 ([facility]) ID Date Data Source [id number] 10/19/2020 12:00:00 AM EST eCW1 ([facility]) Name Value Range Interpretation Code Description Data Aydee rce(s) Supporting Document(s) Hemoglobin A1c/Hemoglobin.total in Blood 9.0 HEMOGLOBIN A1c eCW1 ([facility]) ID Date Data Source FREE T4 & TSH PANEL 10/19/2020 12:00:00 AM EST eCW1 ([facility]) Name Value Range Interpretation Code Description Data Aydee rce(s) Supporting Document(s) 1.32 0.76-1.46 FREE T4 eCW1 ([facility]) 3.410 0.358-3.740 THYROID STIMULATING HORM ONE eCW1 ([facility]) ID Date Data Source Comprehensive Metabolic Profile (CMP) 10/19/2020 12:00:00 AM EST eCW1 ([facility]) Name Value Range Interpretation Code Description Data Aydee rce(s) Supporting Document(s) 1.30 0.70-1.30 CREATININE FOR GFR eCW1 ([facility]) 127 136-145 SODIUM LEVEL eCW1 ([facility]) 58.1 >42 GLOMERULAR FILTRATION RATE eCW 1 ([facility]) 558 70-100 GLUCOSE, FASTING eCW1 ([facility]) 21 7-18 BLOOD UREA NITROGEN eCW1 ([facility]) 21 21-32 CARBON DIOXIDE LEVEL eCW1 ([facility]) 10.0 8.8-10.2 CALCIUM LEVEL eCW1 ([facility]) 5.0 3.5-5.1 POTASSIUM SERUM eCW1 (On license of [facility]) 90 98-107 CHLORIDE LEVEL eCW1 ([facility]) 19 12-78 ALT/SGPT eCW1 ([facility]) 8 7-37 AST/SGOT eCW1 ([facility]) 159 45-117 ALKALINE PHOSPHATASE eCW1 ([facility]) 0.6 0.2-1.0 BILIRUBIN,TOTAL eCW1 (On license of [facility]) 3.4 3.2-5.2 ALBUMIN eCW1 ([facility]) 0.7 ALBUMIN/GLOBULIN RATIO eCW1 ([facility]) 8.1 6.4-8.2 TOTAL PROTEIN eCW1 ([facility]) ID Date Data Source CBC - Complete Blood Count 10/19/2020 12:00:00 AM EST eCW1 ( [facility]) Name Value Range Interpretation Code Description Data Aydee rce(s) Supporting Document(s) 7.6 4.0-10.0 eCW1 ([facility]) 11.6 13.5-17.5 eCW1 ([facility]) 37.2 42.0-52.0 eCW1 ([facility]) 4.56 4.30-6.10 eCW1 ([facility]) 25.4 27.0-33.0 eCW1 ([facility]) 31.2 32.0-36.5 eCW1 ([facility]) 15.9 11.5-14.5 eCW1 ([facility]) 81.6 80.0-96.0 eCW1 ([facility]) 419 150-450 eCW1 ([facility]) ID Date Data Source [id number] 10/06/2020 08:00:00 AM EST [facility] Name Value Range Interpretation Code Description Data Aydee rce(s) Supporting Document(s) SARS coronavirus 2 RNA [facility] This lab was ordered by [facility] and reported by [facility]. ID Date Data Source [id number] 09/29/2020 10:00:00 AM EST [facility] Name Value Range Interpretation Code Description Data Aydee rce(s) Supporting Document(s) SARS coronavirus 2 RNA [facility] This lab was ordered by [facility] and reported by [facility]. ID Date Data Source [id number] 09/22/2020 09:30:00 AM EST [facility] Name Value Range Interpretation Code Description Data Aydee rce(s) Supporting Document(s) SARS coronavirus 2 RNA [facility] This lab was ordered by [facility] and reported by [facility]. ID Date Data Source [id number] 09/15/2020 09:00:00 AM EST [facility] Name Value Range Interpretation Code Description Data Aydee rce(s) Supporting Document(s) SARS coronavirus 2 RNA [facility] This lab was ordered by [facility] and reported by [facility]. ID Date Data Source [id number] 08/20/2020 01:42:00 PM EDT [facility] ([facility]) Name Value Range Interpretation Code Description Data Aydee rce(s) Supporting Document(s) Hemoglobin A1c/Hemoglobin.total in Blood 12.0 [facility] ([facility]) Glucose [Mass/volume] in Serum or Plasma 185 [facility] ([facility]) ID Date Data Source [id number] 07/08/2020 12:27:00 PM EDT [facility] ([facility] Name Value Range Interpretation Code Description Data Aydee rce(s) Supporting Document(s) Thyroid Stimulating Hormone 2.470 ME DENT ([facility]) Free T4 1.16 [facility] ID Date Data Source [id number] 07/06/2020 12:21:00 PM EDT [facility] ([facility] Name Value Range Interpretation Code Description Data Aydee rce(s) Supporting Document(s) Uric Acid 3.4 2.7-8.4 [facility] ([facility] Magnesium Level 1.66 [facility] ([facility]) ID Date Data Source [id number] 07/06/2020 12:21:00 PM EDT [facility] ([facility]) Name Value Range Interpretation Code Description Data Aydee rce(s) Supporting Document(s) White Blood Count 10.0 4.3-10.9 [facility] ([facility]) Red Blood Count 4.60 4.70-6.20 [facility] ([facility]) Hematocrit 40.5 39.0-50.0 [facility] ([facility]) Platelets 378 130-400 [facility] ([facility]) Hemoglobin 13.5 13.0-17.0 [facility] ([facility]) ID Date Data Source [id number] 07/06/2020 12:21:00 PM EDT [facility] ([facility]) Name Value Range Interpretation Code Description Data Aydee rce(s) Supporting Document(s) Glucose 464 70-100 [facility] ([facility] Blood Urea Nitrogen 16.2 5-21 [facility] ([facility]) Creatinine 1.1 0.6-1.5 [facility] ([facility]) Glomerular filtration rate/1.73 sq M.pre dicted [Volume Rate/Area] in Serum or Plasma by Creatinine-based formula (MDRD) 66 [facility] ([facility]) Sodium 132.7 136-146 [facility] ([facility] [...] [facility] of [place]) ID Date Data Source [id number] 06/10/2020 09:48:00 AM EDT [facility] [address] [place] [address] PHONE: [phone] FAX: [phone] Name .................. : LUCITA FLOR Acct Number.................. : [id number] ROOM. ................. : TR-1A MR Number ................... : [id number] Stay type ............. : E/R Discharge Date......... ... : 06/09/20 Admit Date ......... : 06/09/20 Admit Phys .................... : JOHN TOMAS Date of ....... : 1950 Family Phys ................... : JENNIFEREPISSAMSON Phone .................. : [phone] Age ................................ : 70 Film# .................. .:[id number] Sex ................................. : M Unsigned transcriptions are preliminary reports and do not represent a medical or legal document CHEST PORTABLE [id number] COMPLETE:06/09/20 14:11 ARS 56115 Reason(s): weakness, Hx of CHF PORTABLE CHEST [...] rce(s) Supporting Document(s) ID Date Data Source [id number] 06/09/2020 08:52:00 PM EDT [id number] [place] [address] RESPIRATORY CARE REPORT ==== ---------NAME------- NUMBER SEX AGE ADMIT DISC. XRAY# F/C ERIC FLOR [id number] M 70 06/09/20 06/09/20 [id number] MB4 E/R DATE OF : 1950 M/R# [id number] #: [id number] TR-1A LOCATION: EMERGENCY DEPT EKG [id number] COMPLE TE:06/09/20 14:07 EWW [id number] PHYSICIAN: JOHN TOMAS Name Value Range Interpretation Code Description Data Aydee rce(s) Supporting Document(s) ID Date Data Source [id number] 06/09/2020 01:20:00 PM EDT [facility] 1 OrderSheet [facility] Emergency Department [address] [place] [address] Phone #: ext- [phone] 06/09/2020 13:03 Patient: [...] of CHFMEDICATION/IV/DRIP/FLUID ORDERSOrder Description Priority Entered Acknowledged [id number] IVP 50 mL 13:30 06/09/2020 13:55 Lydia Pedroza RN, M.D.; 2 OrderSheet [facility] Emergency Department [address] [place] [address] Phone #: ext- [phone] 06/09/2020 13:03 Patient: CHACHO RING Sex: M : 1950 Age: 2nG0AR IV : 100 13:30 06/09/2020 13:56 DorismL/hr Lydia Otero RN, M.D.;GENERAL ORDERSOrder Description Priority Entered Acknowledged InitialedDiet: (Regular Diet) 13:21 06/09/2020 13:23 [place]Lydia Hoffman game producerCharlie M.D.; Hkhg4Qptaf Pressure 13:30 06/09/2020 13:30 Lesleeonitor Lydia Otero RN, M.D.;Supervisor Boarding 13:30 06/09/2020 13:30 [place](continuous) Lydia Otero RN, [...] rce(s) Supporting Document(s) ID Date Data Source [id number] 06/09/2020 01:20:00 PM EDT [facility] 1 Medication Reconciliation Report [facility] Emergency Department [address] [place] [address] Phone #: ext- [phone] 06/09/2020 13:03 Patient: [...] Multi-Vitamins Oral, daily 2 Medication Reconciliation Report [facility] Emergency Department [address] [place] [address] Phone #: ext- [phone] 06/09/2020 13:03 Patient: [...] rce(s) Supporting Document(s) ID Date Data Source [id number] 06/09/2020 01:20:00 PM EDT [facility] 1 Medication Administration Record [facility] Emergency Department [address] [place] [address] Phone #: ext- [phone] 06/09/2020 13:03 Patient: [...] rce(s) Supporting Document(s) ID Date Data Source [id number] 06/09/2020 01:20:00 PM EDT [facility] 1 General Instructions [facility] Emergency Department [address] [place] [address] Phone #: ext- [phone] 06/09/2020 13:03 Patient: CHACHO RING Sex: M : 1950 Age: 70yHypoglycemia without coma- associated with type 1 diabetes and use of insulin.INSTRUCTIONS (PLEASE EAT 3 MEALS PER DAY AND SNACK BETWEEN MEALS; PLEASE SEE DR. CALDWELL, OPTICAL INSTRUMENT INSPECTOR, IN NEXT FEW DAYS TO HAVE YOUR INSULIN ADJUSTED NEEDED).Warnings: Further evaluation is necessary (Asl Interpreter). It is very important to follow up with [facility] provider.GENERAL WARNINGS: Return or contact your physician [...] Subcutaneous : 20 daily. 2 General Instructions [facility] Emergency Department [address] [place] [address] Phone #: [phone]- [phone] 06/09/2020 13:03 Patient: CHACHO RING Sex: M [...] you are taking a 3 General Instructions [facility] Emergency Department [address] [place] [address] Phone #: ext- [phone] 06/09/2020 13:03 Patient: [...] soon as possible to 4 General Instructions [facility] Emergency Department [address] [place] [address] Phone #: ext- [phone] 06/09/2020 13:03 Patient: [...] injection.For more information about diabetes, contact the [place] [employer], atwww.diabetes.org.When to seek medical adviceCall your healthcare provider right away if any of these symptoms of low blood sugar occur. Fatigue Headache Shakes Excess sweating Hunger Feeling anxious or restless Vision changes Drowsiness Weakness 5 General Instructions [facility] Emergency Department [address] [place] [address] Phone #: [phone]- [phone] 06/09/2020 13:03 Patient: CHACHO RING Sex: M : 1950 Age: 70y Confusion Personality changes Seizure or loss of consciousness [id number] [employer]. [address] [place] [address]. All rights reserved. This information is not intended as asubstitute for professional medical care. Always follow your healthcare professional's instructions. You have been given the following additional information: Diabetic Insulin Reaction(Electronically signed by Lydia Otero M.D. 06/09/2020 18:16) Name Value Range Interpretation Code Description Data Aydee rce(s) Supporting Document(s) ID Date Data Source [id number] 06/09/2020 01:20:00 PM EDT [facility] 1 Clinical Report - Nurses [facility] Emergency Department [address] [place] [address] Phone #: ext- [phone] 06/09/2020 13:03 Patient: [...] appt; Pt was conscious butunresponsive according to [employer] when he brought his vehicle in for a check light; When emsarrived his FS was 45, oral glucose given and went up to 113. 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 2 Clinical Report - Nurses [facility] Emergency Department [address] [place] [address] Phone #: ext- [phone] 06/09/2020 13:03 Patient: [...] 800 mcg) 1 tablet, daily. --13:12 06/09/20 Llili Spaulding R.N.Vitamin D2 Oral 1000, daily. --13:12 [...] "Do you 3 Clinical Report - Nurses [facility] Emergency Department [address] [place] [address] Phone #: ext- [phone] 06/09/2020 13:03 Patient: CHACHO RING Sex: M [...] band on patient. --13:06/09/20 Lilli Spaulding R.N.PHYSICAL [id number]:06/09/20. To room via stretcher.GENERAL / NEURO / [...] including reason 4 Clinical Report - Nurses [facility] Emergency Department [address] [place] [address] Phone #: ext- [phone] 06/09/2020 13:03 Patient: [...] / DISCHARGE 5 Clinical Report - Nurses [facility] Emergency Department [address] [place] [address] Phone #: ext- [phone] 06/09/2020 13:03 Patient: CHACHO RING Sex: M : 1950 Age: 70y 17:25 06/09/20. BP: 151/94. MAP: 113. HR: 77. RR: 17. O2 saturation: 97%. Temp: 98 F. Pain level now: 0/10. --18:12 06/09/20 Chula Harvey RN 17:25 06/09/2020 Site #1 removed upon discharge. Catheter intact. Manual pressure and bandage applied. --18:12 06/09/20 Chula Harvey RN 17:30 06/09/20. Condition at [facility]: improved and stable. No learning barriers present. Discharge instructions provided and reviewed with the patient. Patient verbalized understanding. Written instructions provided in Urdu. ( Follow up with Dr Deborah Caldwell). The patient was discharged home and accompanied by taxi. He left ambulatory and via taxi. Patient driving. --18:12 06/09/20 Chula Harvey RN.Locked/Released at 06/09/2020 18:13 by Chula Harvey RN Name Value Range Interpretation Code Description Data Aydee rce(s) Supporting Document(s) ID Date Data Source [id number] 06/09/2020 01:20:00 PM EDT [facility] 1 Clinical Report - Physicians/Mid Levels [facility] Emergency Department [address] [place] [address] Phone #: ext- [phone] 06/09/2020 13:03 Patient: [...] has known recurrent hypoglycemia incidents, was at [facility] ER on 06-06 for same; [...] Medications: 2 Clinical Report - Physicians/Mid Levels [facility] Emergency Department [address] [place] [address] Phone #: ext- [phone] 06/09/2020 13:03 Patient: CHACHO RING Sex: M [...] mass. 3 Clinical Report - Physicians/Mid Levels [facility] Emergency Department [address] [place] [address] Phone #: ext- [phone] 06/09/2020 13:03 Patient: CHACHO RING Sex: M [...] making process. BNP: (FELI: 06/09/2020 13:47) ( [facility] 06/09/2020 14:36) Final results Test Result Flag Units (Reference) BNP 1631 H PG/ML (0 - 125) Chest Portable 1 View: (FELI: 06/09/2020 13:31) ( [facility] 06/09/2020 14:12) In Progress CHEST PORTABLE Reason(s): weakness, Hx of CHF TRANSPORTATION: P IV? O2? Oxygen?(No) Room: ED CBC w Diff: (FELI: 06/09/2020 14:00) ( [facility] 06/09/2020 14:17) Final results Test Result Flag [...] 0.00) 4 Clinical Report - Physicians/Mid Levels [facility] Emergency Department [address] [place] [address] Phone #: ext- [phone] 06/09/2020 13:03 Patient: CHACHO RING Sex: M [...] - 60) Troponin-T: (FELI: 06/09/2020 13:47) ( [facility] 06/09/2020 14:28) Final results Test Result Flag Units (Reference) TROPONIN T <0.01 NG/ML (0.00 - 0.10) TROPONIN T0.1 ng/ml Recommended as the clinical threshold value forTropohiral T. EKG: (FELI: 06/09/2020 13:30) ( [facility] 06/09/2020 14:10) In Progress . Bedside Tests: Glucose: mild hypoglycemia - 56 (performed at bedside).PROGRESS AND PROCEDURESCourse of Care: 15:12 06/09/20. workup all in and reviewed; glucose up; BNP elevated but pt known wCHF, CXR clear; pt doing much better, ate whole tray and got 50 ml D50% soln. 5 Clinical Report - Physicians/Mid Levels [facility] Emergency Department [address] [place] [address] Phone #: ext- [phone] 06/09/2020 13:03 Patient: CHACHO RING Sex: M [...] SNACK BETWEEN MEALS; PLEASE SEE DR. CALDWELL, OPTICAL INSTRUMENT INSPECTOR, IN NEXT FEW DAYS TO HAVE YOUR INSULIN ADJUSTED NEEDED). Warnings: Further evaluation is necessary (Asl Interpreter). It is very important to follow up [...] daily. 6 Clinical Report - Physicians/Mid Levels [facility] Emergency Department [address] [place] [address] Phone #: ext- [phone] 06/09/2020 13:03 Patient: [...] Name Value Range Interpretation Code Description [facility] Document(s) ID Date Data Source [id number] 06/09/2020 02:17:00 PM EDT [facility] Name Value Range Interpretation Code Description Data [facility] Supporting Document(s) CBC W/AUTOMATED DIFF [facility] COMPLETE BLOOD COUNT Leukocytes [#/volume] in Blood by Automated count 9.0 10^3/uL 4.2 - 1 1.0 [facility] Erythrocytes [#/volume] in Blood by Automated count 5.05 10^6/uL 4. 50 - 6.30 [facility] Hemoglobin [Mass/volume] in Blood 14.5 g/dL 14.0 - 16.0 [facility] Hematocrit [Volume Fraction] of Blood by Automated count 44.5 % 4 1.0 - 51.0 [facility] Erythrocyte mean corpuscular volume [Entitic volume] by Auto mated count 88.1 fL 80.0 - 94.0 [facility] Erythrocyte mean corpuscular hemoglobin [Entitic mass] by Automated count 28.7 pg 27.0 - 34.0 [facility] Erythrocyte mean corpuscular hemoglobin concentration [Mass/volume] by Automated count 32.6 g/dL 31.0 - 36.0 [facility] Erythrocyte distribution width [Ratio] by Automated count 13.9 % 11.5 - 14.8 [facility] Platelets [#/volume] in Blood by Automated count 205 10^3/uL 150 - 45 0 [facility] Platelet mean volume [Entitic volume] in Blood by Automated count 9.6 fL 7.4 - 10.4 [facility] Neutrophils/100 leukocytes in Blood by Automated count 65.0 % 37. 0 - 80.0 [facility] Lymphocytes/100 leukocytes in Blood by Manual count 24.9 % 25.0 - 40.0 L [facility] Monocytes/100 leukocytes in Blood by Automated count 7.8 % 3.0 - 8.0 [facility] Eosinophils/100 leukocytes in Blood by Automated count 1.3 % 0.0 - 7.0 [facility] Basophils/100 leukocytes in Blood by Automated count 0.6 % 0.0 - 2.0 [facility] %IG 0.4 % 0.0 - 0.0 [facility] % 0.0 - 0.0 [facility] al Neutrophils [#/volume] in Blood by Automated count 5.86 10^3/uL 2.00 - 6.90 [facility] Lymphocytes [#/volume] in Blood by Automated count 2.24 10^3/uL 0.60 - 3.40 [facility] Monocytes [#/volume] in Blood by Automated count 0.70 10^3/uL 0.00 - 0.90 [facility] Eosinophils [#/volume] in Blood by Automated count 0.12 10^3/uL 0.00 - 0.70 [facility] Basophils [#/volume] in Blood by Automated count 0.05 10^3/uL 0.00 - 0.20 [facility] #IG 0.04 10^3/uL 0.00 - 0.10 [facility]ital #NRBC 0.00 10^3/uL 0.00 - 0.00 [facility] MANUAL DIFF NOT INDICATED [facility] RBC MORPH NOT INDICATED [facility] Ho spital ID Date Data Source [id number] 06/09/2020 02:37:00 PM EDT [facility] Name Value Range Interpretation Code Description Data Aydee rce(s) Supporting Document(s) Lipase [Enzymatic activity/volume] in Serum or Plasma 7 U/L 13 - 60 L [facility] ID Date Data Source [id number] 06/09/2020 02:36:00 PM EDT [facility] Name Value Range Interpretation Code Description Data Aydee rce(s) Supporting Document(s) COMPREHENSIVE METABOLIC PANEL [facility] COMPREHENSIVE METABOLIC PANEL Sodium [Moles/volume] in Serum or Plasma 137 mEq/L 134 - 153 [facility] Potassium [Moles/volume] in Serum or Plasma 4.3 mEq/L 3.6 - 5.0 [facility] Chloride [Moles/volume] in Serum or Plasma 100 mEq/L 98 - 107 [facility] Carbon dioxide, total [Moles/volume] in Serum or Plasma 23 MEQ/L 22 - 30 [facility] Glucose [Mass/volume] in Serum or Plasma 189 MG/DL 65 - 110 H [facility] BUN 12 MG/DL 7 - 21 [facility] al Creatinine [Mass/volume] in Serum or Plasma 0.7 MG/DL 0.7 - 1.5 [facility] BUN/CREAT 17 8 - 27 [facility] Protein [Mass/volume] in Serum or Plasma 7.0 G/DL 6.3 - 8.2 [facility] Albumin [Mass/volume] in Serum or Plasma 4.1 G/DL 3.9 - 5.0 [facility] Globulin [Mass/volume] in Serum by calculation 2.9 GM/DL 2.4 - 3.2 [facility] A/G RATIO 1.4 0.8 - 2.0 [facility] Calcium [Mass/volume] in Serum or Plasma 9.6 MG/DL 8.4 - 10.2 [facility] Bilirubin.total [Mass/volume] in Serum or Plasma <0.7 MG/DL 0.2 - 1.3 [facility] Alkaline phosphatase [Enzymatic activity/volume] in Serum or Plasma 110 U/L 38 - 126 [facility] Aspartate aminotransferase [Enzymatic activity/volume] in Serum or Plasma 35 U/L 5 - 40 [facility] Alanine aminotransferase [Enzymatic activity/volume] in Seru m or Plasma 21 U/L 7 - 56 [facility] Anion gap 3 in Serum or Plasma 14.0 mmol/L 8.0 - 16.0 [facility] AGE 70 yrs [facility] Hospit al NON-AA GFR >60 mL/min [facility]osp ital AFR AMER GFR >60 mL/min [facility] Ho spital Male GFR In [...] >32 mL/min Normal ID Date Data Source [id number] 06/09/2020 02:34:00 PM EDT [facility] Name Value Range Interpretation Code Description Data Aydee rce(s) Supporting Document(s) BNP 1631 PG/ML 0 - 125 [facility] ID Date Data Source [id number] 06/09/2020 02:28:00 PM EDT [facility] Name Value Range Interpretation Code Description Data Aydee rce(s) Supporting Document(s) TROPONIN T <0.01 NG/ML 0.00 - 0.10 [facility] ospital TROPONIN T0.1 ng/ml Recommended as the c linical threshold value forTroponin T. ID Date Data Source [id number] 06/01/2020 02:15:00 PM EDT [facility] ([facility] [...] <=0.12 S</content>
<content></content> ID Date Data Source [id number] 05/18/2020 11:46:00 AM EDT [facility]) Name Value Range Interpretation Code Description Data Aydee rce(s) Supporting Document(s) Glucose [Mass/volume] in Serum or Plasma 145 [facility] ([facility]) Hemoglobin A1c/Hemoglobin.total in Blood 8.9 [facility]) ID Date Data Source [id number] 03/26/2020 10:15:00 AM EDT [facility] Name Value Range Interpretation Code Description Data Aydee rce(s) Supporting Document(s) SARS CORONAVIRUS 2 RNA [facility] This lab was ordered by [facility] and reported by [facility]. ID Date Data Source [id number] 03/26/2020 10:15:00 AM EDT [facility] ([facility]) Name Value Range Interpretation Code Description Data Aydee rce(s) Supporting Document(s) Laboratory test finding (navigational concept) Laboratory test result [facility]) Testing was performed using the conrad(R) SARS-CoV-2 test. This test was developed and its performance characteristics determined by [employer]. This test has not been FDA cleared [...] detected) result in this assay. Performed at: [address] [id number] [employer] Operator: Joycelyn Edge MD, Phone: [phone] Not Detected ID Date Data Source [id number] 03/26/2020 10:02:00 AM EDT [facility] ([facility]) Name Value Range Interpretation Code Description Data Aydee rce(s) Supporting Document(s) Platelets [#/volume] in Blood by Automated count 175 10 150-450 [facility] ([facility]) ID Date Data Source [id number] 03/26/2020 10:02:00 AM EDT [facility] ([facility]) Name Value Range Interpretation Code Description Data Aydee rce(s) Supporting Document(s) Prothrombin Time 15.6 s 11.8-14.0 [facility] ([facility]) Partial Thromboplastin Time 35.6 s 25.0-38.4 [facility] ([facility]) Inr 1.27 [facility] ([facility]) THERAPUTIC HUMAN INR VALUES INDICATIONS NORMAL RANGES PROPHYLAXIS/TREATMENT OF: VENOUS THROMBOSIS 2.0-3.0 PULMONARY EMBOLISM 2.0-3.0 PREVENTION OF SYSTEMIC EMBOLISM FROM: TISSUE HEART VALVES 2.0-3.0 ACUTE MYOCARDIAL INFARCTION 2.0-3.0 VALVULAR HEART DISEASE 2.0-3.0 ATRIAL FIBRILLATION 2.0-3.0 MECHANICAL VALVES(HIGH RISK) 2.5-3.5 RECURRENT MYOCARDIAL INFARCTION 2.5-3.5 ID Date Data Source [id number] 01/01/2020 09:10:00 AM EDT [facility] ([facility]) Name Value Range Interpretation Code Description Data Aydee rce(s) Supporting Document(s) Magnesium Level 1.57 [facility] ([facility]) ID Date Data Source [id number] 01/01/2020 09:10:00 AM EDT [facility] ([facility]) Name Value Range Interpretation Code Description Data Aydee rce(s) Supporting Document(s) White Blood Count 7.9 5.0-10.0 [facility] ([facility]) Platelets 317 172-450 [facility] ([facility] Red Blood Count 4.91 4.70-6.10 [facility] ([facility]) Hemoglobin 14.9 14.0-18.0 [facility] ([facility]) Hematocrit 45.5 42.0-52.0 [facility] ([facility]) ID Date Data Source [id number] 01/01/2020 09:10:00 AM EDT [facility] ([facility]) Name Value Range Interpretation Code Description Data Aydee rce(s) Supporting Document(s) Blood Urea Nitrogen 16.0 7-25 [facility] ([facility]) Glucose 373 70-100 [facility] ([facility] Creatinine 0.78 0.6-1.4 [facility] ([facility]) Glomerular filtration rate/1.73 sq M.pre dicted [Volume Rate/Area] in Serum or Plasma by Creatinine-based formula (MDRD) 98 [facility] ([facility]) Sodium 134.6 135-145 [facility] ([facility] Potassium 4.18 3.5-5.3 [facility] ([facility] Chloride 98.5 98-110 [facility] ([facility] Carbon Dioxide 29.9 20-32 [facility] ([facility]) Albumin 4.0 3.5-4.7 [facility] ([facility]) Calcium 8.79 8.4-10.4 [facility] ([facility]) Phosphorus 2.69 [facility] ([facility]) ID Date Data Source [id number] 12/17/2019 01:39:00 PM EST [facility] ([facility]) Name Value Range Interpretation Code Description Data Aydee rce(s) Supporting Document(s) Prothrombin Time 14.0 s 11.8-14.0 [facility] ([facility]) Partial Thromboplastin Time 34.2 s 25.0-38.4 [facility] ([facility]) Inr 1.11 [facility] ([facility]) THERAPUTIC HUMAN INR VALUES INDICATIONS NORMAL RANGES PROPHYLAXIS/TREATMENT OF: VENOUS THROMBOSIS 2.0-3.0 PULMONARY EMBOLISM 2.0-3.0 PREVENTION OF SYSTEMIC EMBOLISM FROM: TISSUE HEART VALVES 2.0-3.0 ACUTE MYOCARDIAL INFARCTION 2.0-3.0 VALVULAR HEART DISEASE 2.0-3.0 ATRIAL FIBRILLATION 2.0-3.0 MECHANICAL VALVES(HIGH RISK) 2.5-3.5 RECURRENT MYOCARDIAL INFARCTION 2.5-3.5 ID Date Data Source [id number] 12/17/2019 01:39:00 PM EST [facility] ([facility]) Name Value Range Interpretation Code Description Data Aydee rce(s) Supporting Document(s) Platelets [#/volume] in Blood by Automated count 216 10 150-450 [facility] ([facility]) ID Date Data Source [id number] 12/11/2019 01:58:00 PM EST [facility] ([facility]) Name Value Range Interpretation Code Description Data Aydee rce(s) Supporting Document(s) Laboratory test finding (navigational concept) Laboratory test result [facility] ([facility]) ID Date Data Source [id number] 11/04/2019 02:49:00 PM EST [facility] ([facility]) Name Value Range Interpretation Code Description Data Aydee rce(s) Supporting Document(s) Magnesium Level 1.7 [facility] ([facility]) ID Date Data Source [id number] 11/04/2019 02:49:00 PM EST [facility] ([facility]) Name Value Range Interpretation Code Description Data Aydee rce(s) Supporting Document(s) Cholesterol 132 120-200 [facility] ([facility]) HDL 72 40-60 [facility] ([facility] Triglycerides 71 [facility] ([facility] Chol/HDL Ratio 1.833 [facility] ([facility]) Cholesterol in LDL [Mass/volume] in Serum or Plasma by calculation 46 [facility] ([facility]) ID Date Data Source [id number] 11/04/2019 02:49:00 PM EST [facility] ([facility]) Name Value Range Interpretation Code Description Data Aydee rce(s) Supporting Document(s) Thyroid Stimulating Hormone 2.160 [facility] ([facility]) ID Date Data Source [id number] 11/04/2019 02:49:00 PM EST [facility] ([facility]) Name Value Range Interpretation Code Description Data Aydee rce(s) Supporting Document(s) Albumin [Mass/volume] in Serum or Plasma 4.1 [facility] ([facility]) Alanine aminotransferase [Enzymatic activity/volume] in Serum or Pl asma 26 [facility] ([facility]) Carbon dioxide, total [Moles/volume] in Serum or Plasma 27 [facility] ([facility]) Calcium [Mass/volume] in Serum or Plasma 9.5 [facility] ([facility]) Chloride [Moles/volume] in Serum or Plasma 103 [facility] ([facility]) Protein [Mass/volume] in Serum or Plasma 7.6 [facility] ([facility]) Alkaline phosphatase [Enzymatic activity/volume] in Serum or Plasma 1 27 [facility] ([facility]) Potassium [Moles/volume] in Serum or Plasma 4.4 [facility] ([facility]) Sodium 139 [facility] ([facility] Aspartate aminotransferase [Enzymatic activity/volume] in Serum or Plasma 21 [facility] ([facility]) Urea nitrogen [Mass/volume] in Serum or Plasma 14 [facility] ([facility]) Glucose 189 70-100 [facility] ([facility]) Creatinine For GFR 1.03 [facility] ([facility]) ID Date Data Source [id number] 11/04/2019 02:49:00 PM EST [facility] ([facility]) Name Value Range Interpretation Code Description Data Aydee rce(s) Supporting Document(s) Platelets 268 150-450 [facility] ([facility] Red Blood Count 4.95 4.30-6.10 [facility] ([facility]) White Blood Count 9.0 4.0-10.0 [facility] ([facility]) Hematocrit 43.0 42.0-52.0 [facility] ([facility]) Hemoglobin 13.7 13.5-17.5 [facility] ([facility]) ID Date Data Source [id number] LEVEL 11/04/2019 12:00:00 AM EST eCW1 ([facility]) Name Value Range Interpretation Code Description Data Aydee rce(s) Supporting Document(s) 1.7 1.8-2.4 MAGNESIUM LEVEL eCW1 (On license of [facility]) ID Date Data Source TOTAL IRON BINDING CAPACIT 11/04/2019 12:00:00 AM EST eCW1 ( [facility]) Name Value Range Interpretation Code Description Data Aydee rce(s) Supporting Document(s) 37 65-175 IRON (FE) eCW1 ([facility]) 400 250-450 TOTAL IRON BINDING CAPACI TY eCW1 ([facility]) 9.3 19.7-50.0 PERCENT SATURATION eCW1 ([facility]) ID Date Data Source [id number] 11/04/2019 12:00:00 AM EST eCW1 ([facility]) Name Value Range Interpretation Code Description Data Aydee rce(s) Supporting Document(s) 9 26-388 FERRITIN eCW1 ([facility]) ID Date Data Source [id number] 11/04/2019 12:00:00 AM EST eCW1 ([facility]) Name Value Range Interpretation Code Description Data Aydee rce(s) Supporting Document(s) 9.0 4.0-10.0 WHITE BLOOD COUNT eCW1 ([facility]) 4.95 4.30-6.10 RED BLOOD COUNT eCW1 (On license of [facility]) 13.7 13.5-17.5 HEMOGLOBIN eCW1 ([facility]) 43.0 42.0-52.0 HEMATOCRIT eCW1 ([facility]) 86.9 80.0-96.0 MEAN CORPUSCULAR VOLUME e CW1 ([facility]) 27.7 27.0-33.0 MEAN CORPUSCULAR HEMOGLOB IN eCW1 ([facility]) 268 150-450 PLATELET COUNT, AUTOMATED eCW1 ([facility]) 15.9 11.5-14.5 RED CELL DISTRIBUTION WID TH eCW1 ([facility]) 31.9 32.0-36.5 MEAN CORPUSCULAR HGB CONC eCW1 ([facility]) ID Date Data Source [id number] 11/03/2019 12:10:00 PM EST [facility] ([facility]) Name Value Range Interpretation Code Description Data Aydee rce(s) Supporting Document(s) Hemoglobin A1c/Hemoglobin.total in Blood 10.5 [facility] ([facility]) Glucose [Mass/volume] in Serum or Plasma 258 [facility] ([facility] ) Procedure Social History Code Duration Value Status Description Data Source(s ) Smoking 11/03/2020 12:00:00 AM EST Former Smoker completed Former Smoker eCW1 ([facility]) Smoking 11/03/2020 12:00:00 AM EST Former Smoker completed Former Smoker eCW1 ([facility]) Smoking 11/03/2020 12:00:00 AM EST Former Smoker completed Former Smoker eCW1 ([facility]) Smoking 11/01/2020 12:00:00 AM EST Patient is a former smoker completed Patient is a former smoker [facility] ([facility]) Smoking 10/25/2020 12:00:00 AM EST Former Smoker completed Former Smoker eCW1 ([facility]) Smoking 10/25/2020 12:00:00 AM EST Former Smoker completed Former Smoker eCW1 ([facility]) Smoking 10/25/2020 12:00:00 AM EST Former Smoker completed Former Smoker eCW1 ([facility]) Smoking 10/25/2020 12:00:00 AM EST Former Smoker completed Former Smoker eCW1 ([facility]) Smoking 10/25/2020 12:00:00 AM EST Former Smoker completed Former Smoker eCW1 ([facility]) Smoking 10/25/2020 12:00:00 AM EST Former Smoker completed Former Smoker eCW1 ([facility]) Smoking 10/25/2020 12:00:00 AM EST Former Smoker completed Former Smoker eCW1 ([facility]) Smoking 10/19/2020 12:00:00 AM EST Former Smoker completed Former Smoker eCW1 ([facility]) Smoking 10/19/2020 12:00:00 AM EST Former Smoker completed Former Smoker eCW1 ([facility]) Smoking 10/19/2020 12:00:00 AM EST Former Smoker completed Former Smoker eCW1 ([facility]) Smoking 10/06/2020 12:00:00 AM EST Former Smoker completed Former Smoker eCW1 ([facility]) Smoking 10/06/2020 12:00:00 AM EST Former Smoker completed Former Smoker eCW1 ([facility]) Smoking 10/06/2020 12:00:00 AM EST Former Smoker completed Former Smoker eCW1 ([facility]) Smoking 10/06/2020 12:00:00 AM EST Former Smoker completed Former Smoker eCW1 ([facility]) Smoking 10/06/2020 12:00:00 AM EST Former Smoker completed Former Smoker eCW1 ([facility]) Smoking 09/21/2020 12:00:00 AM EST Former Smoker completed Former Smoker eCW1 ([facility]) Smoking 08/18/2020 12:00:00 AM EDT Former Smoker completed Former Smoker eCW1 ([facility]) Smoking 08/18/2020 12:00:00 AM EDT Former Smoker completed Former Smoker eCW1 ([facility]) Smoking 08/18/2020 12:00:00 AM EDT Former Smoker completed Former Smoker eCW1 ([facility]) Smoking 08/18/2020 12:00:00 AM EDT Former Smoker completed Former Smoker eCW1 ([facility]) Smoking 08/18/2020 12:00:00 AM EDT Former Smoker completed Former Smoker eCW1 ([facility]) Smoking 08/18/2020 12:00:00 AM EDT Former Smoker completed Former Smoker eCW1 ([facility]) Smoking 08/18/2020 12:00:00 AM EDT Former Smoker completed Former Smoker eCW1 ([facility]) Smoking 08/18/2020 12:00:00 AM EDT Former Smoker completed Former Smoker eCW1 ([facility]) Smoking 08/04/2020 12:00:00 AM EDT Former Smoker completed Former Smoker eCW1 ([facility]) Smoking 08/04/2020 12:00:00 AM EDT Former Smoker completed Former Smoker eCW1 ([facility]) Smoking 08/04/2020 12:00:00 AM EDT Former Smoker completed Former Smoker eCW1 ([facility]) Smoking 08/04/2020 12:00:00 AM EDT Former Smoker completed Former Smoker eCW1 ([facility]) Smoking 08/04/2020 12:00:00 AM EDT Former Smoker completed Former Smoker eCW1 ([facility]) Smoking 07/28/2020 12:00:00 AM EDT Former Smoker completed Former Smoker eCW1 ([facility]) Smoking 07/28/2020 12:00:00 AM EDT Former Smoker completed Former Smoker eCW1 ([facility]) Smoking 07/28/2020 12:00:00 AM EDT Former Smoker completed Former Smoker eCW1 ([facility]) Smoking 07/26/2020 12:00:00 AM EDT Patient is a former smoker completed Patient is a former smoker [facility] ([facility]) Smoking 07/21/2020 12:00:00 AM EDT Former Smoker completed Former Smoker eCW1 ([facility]) Smoking 02/06/2020 12:00:00 AM EDT Former Smoker completed Former Smoker eCW1 ([facility]) Smoking 02/06/2020 12:00:00 AM EDT Former Smoker completed Former Smoker eCW1 ([facility]) Vital Signs ID Date Data Source UNK Name Value Range Interpretation Code Description Data Source(s) Diastolic blood pressure 78 mm[Hg] 78 mm[Hg] eCW1 ([facility]) Systolic blood pressure 134 mm[Hg] 134 mm[Hg] e CW1 ([facility]) Body temperature 97.1 [degF] 97.1 [degF] eCW1 ( [facility]) Respiratory rate 18 /min 18 /min eCW1 ([facility]) Heart rate 91 /min 91 /min eCW1 (On license of [facility]) Body mass index (BMI) [Ratio] 19.23 kg/m2 19.23 kg/m2 eCW1 ([facility]) Body height [in_i] eCW1 ([facility]) Body weight 158 [lb_av] 158 [lb_av] eCW1 ([facility]) Diastolic blood pressure 84 mm[Hg] 84 mm[Hg] eCW1 ([facility]) Systolic blood pressure 154 mm[Hg] 154 mm[Hg] e CW1 ([facility]) Body temperature 97.2 [degF] 97.2 [degF] eCW1 ( [facility]) Respiratory rate 18 /min 18 /min eCW1 ([facility]) Heart rate 92 /min 92 /min eCW1 (On license of [facility]) Body mass index (BMI) [Ratio] 19.23 kg/m2 19.23 kg/m2 W1 ([facility]) Body height [in_i] eCW1 ([facility]) Body weight 158 [lb_av] 158 [lb_av] eCW1 ([facility]) Body mass index (BMI) [Ratio] 20.4 kg/m2 20.4 k g/m2 MEDENT ([facility]) Body weight 158.56 [lb_av] 158.56 [lb_av] ANUPEN T ([facility]) stated--in wheelchair Body height 74 [in_i] 74 [in_i] MEDENT ([facility]) 6'2" Body temperature 97.3 [degF] 97.3 [degF] MEDENT ([facility]) Diastolic blood pressure 84 mm[Hg] 84 mm[Hg] MEDENT ([facility]) Systolic blood pressure 136 mm[Hg] 136 mm[Hg] M EDENT ([facility]) Diastolic blood pressure 76 mm[Hg] 76 mm[Hg] eCW1 ([facility]) Systolic blood pressure 130 mm[Hg] 130 mm[Hg] e CW1 ([facility]) Body temperature 95 [degF] 95 [degF] eCW1 ([facility]) Respiratory rate 18 /min 18 /min eCW1 ([facility]) Heart rate 64 /min 64 /min eCW1 (On license of [facility]) Body mass index (BMI) [Ratio] 19.23 kg/m2 19.23 kg/m2 eCW1 ([facility]) Body height [in_i] eCW1 ([facility]) Body weight kg eCW1 ([facility]) Body weight 158 [lb_av] 158 [lb_av] eCW1 ([facility]) Diastolic blood pressure 68 mm[Hg] 68 mm[Hg] eCW1 ([facility]) Systolic blood pressure 120 mm[Hg] 120 mm[Hg] e CW1 ([facility]) Body temperature 97.3 [degF] 97.3 [degF] eCW1 ( [facility]) Respiratory rate 18 /min 18 /min eCW1 ([facility]) Heart rate 121 /min 121 /min eCW1 (On license of [facility]) Body mass index (BMI) [Ratio] 19.23 kg/m2 19.23 kg/m2 eCW1 ([facility]) Body height [in_i] eCW1 ([facility]) Body weight 158 [lb_av] 158 [lb_av] eCW1 ([facility]) Diastolic blood pressure 73 mm[Hg] 73 mm[Hg] eCW1 ([facility]) Systolic blood pressure 130 mm[Hg] 130 mm[Hg] e CW1 ([facility]) Body temperature 96.4 [degF] 96.4 [degF] eCW1 ( [facility]) Respiratory rate 16 /min 16 /min eCW1 ([facility]) Heart rate 124 /min 124 /min eCW1 (On license of [facility]) Body mass index (BMI) [Ratio] 19.23 kg/m2 19.23 kg/m2 eCW1 ([facility]) Body height [in_i] eCW1 ([facility]) Body weight kg eCW1 ([facility]) Body weight 158 [lb_av] 158 [lb_av] eCW1 ([facility]) Body temperature 96.4 [degF] 96.4 [degF] eCW1 ( [facility]) Respiratory rate 16 /min 16 /min eCW1 ([facility]) Body mass index (BMI) [Ratio] 19.23 kg/m2 19.23 kg/m2 eCW1 ([facility]) Body height [in_i] eCW1 ([facility]) Body weight kg eCW1 ([facility]) Body weight 158 [lb_av] 158 [lb_av] eCW1 ([facility]) Body surface area Derived from formula 1.95 m2 1.95 m2 [facility] ([facility], ) Body weight 69.854 kg 69.854 kg MEDENT ([facility], ) [place] body weight 190 [lb_av] 190 [lb_av] MEDEN T ([facility], ) Body mass index (BMI) [Ratio] 19.5 kg/m2 19.5 k g/m2 MEDENT ([facility], ) Body weight 154.00 [lb_av] 154.00 [lb_av] MEDEN T ([facility], ) Body height 74.5 [in_i] 74.5 [in_i] [facility] ([facility], ) 6'2.50" Diastolic blood pressure 81 mm[Hg] 81 mm[Hg] MEDENT ([facility], ) Systolic blood pressure 121 mm[Hg] 121 mm[Hg] M EDENT ([facility], ) Diastolic blood pressure 84 mm[Hg] 84 mm[Hg] eCW1 ([facility]) Systolic blood pressure 145 mm[Hg] 145 mm[Hg] e CW1 ([facility]) Body temperature 97.2 [degF] 97.2 [degF] eCW1 ( [facility]) Respiratory rate 16 /min 16 /min eCW1 ([facility]) Heart rate 84 /min 84 /min eCW1 (On license of [facility]) Body mass index (BMI) [Ratio] 19.23 kg/m2 19.23 kg/m2 eCW1 ([facility]) Body height [in_i] eCW1 ([facility]) Body weight 158 [lb_av] 158 [lb_av] eCW1 ([facility]) Diastolic blood pressure 81 mm[Hg] 81 mm[Hg] eCW1 ([facility]) Systolic blood pressure 141 mm[Hg] 141 mm[Hg] e CW1 ([facility]) Body temperature 97.2 [degF] 97.2 [degF] eCW1 ( [facility]) Respiratory rate 17 /min 17 /min eCW1 ([facility]) Heart rate 91 /min 91 /min eCW1 (On [facility] of [facility]) Body mass index (BMI) [Ratio] 19.23 kg/m2 19.23 kg/m2 W1 ([facility]) Body height [in_i] eCW1 ([facility]) Body weight kg eCW1 ([facility]) Body weight 158 [lb_av] 158 [lb_av] eCW1 ([facility]) Body mass index (BMI) [Ratio] 21.6 kg/m2 21.6 k g/m2 MEDENT ([facility]) Body weight 168.50 [lb_av] 168.50 [lb_av] MEDEN T ([facility]) Body height 74 [in_i] 74 [in_i] MEDENT ([facility]) 6'2" Body temperature 97.6 [degF] 97.6 [degF] MEDENT ([facility]) Diastolic blood pressure 80 mm[Hg] 80 mm[Hg] MEDENT ([facility]) Systolic blood pressure 134 mm[Hg] 134 mm[Hg] M EDENT ([facility]) Diastolic blood pressure 78 mm[Hg] 78 mm[Hg] eCW1 ([facility]) Systolic blood pressure 151 mm[Hg] 151 mm[Hg] e CW1 ([facility]) Body temperature 95.6 [degF] 95.6 [degF] eCW1 ( [facility]) Respiratory rate 18 /min 18 /min eCW1 ([facility]) Heart rate 83 /min 83 /min eCW1 (On license of [facility]) Body mass index (BMI) [Ratio] 19.23 kg/m2 19.23 kg/m2 eCW1 ([facility]) Body height [in_i] eCW1 ([facility]) Body weight kg eCW1 ([facility]) Body weight 158 [lb_av] 158 [lb_av] eCW1 ([facility]) Diastolic blood pressure 68 mm[Hg] 68 mm[Hg] eCW1 ([facility]) Systolic blood pressure 136 mm[Hg] 136 mm[Hg] e CW1 ([facility]) Body temperature 96.4 [degF] 96.4 [degF] eCW1 ( [facility]) Respiratory rate 18 /min 18 /min eCW1 ([facility]) Heart rate 82 /min 82 /min eCW1 (On license of [facility]) Body mass index (BMI) [Ratio] 19.23 kg/m2 19.23 kg/m2 eCW1 ([facility]) Body height [in_i] eCW1 ([facility]) Body weight kg eCW1 ([facility]) Body weight 158 [lb_av] 158 [lb_av] eCW1 ([facility]) Diastolic blood pressure 65 mm[Hg] 65 mm[Hg] eCW1 ([facility]) Systolic blood pressure 120 mm[Hg] 120 mm[Hg] e CW1 ([facility]) Body temperature 97.6 [degF] 97.6 [degF] eCW1 ( [facility]) Respiratory rate 18 /min 18 /min eCW1 ([facility]) Heart rate 89 /min 89 /min eCW1 (On license of [facility]) Body mass index (BMI) [Ratio] 19.30 kg/m2 19.30 kg/m2 eCW1 ([facility]) Body height [in_i] eCW1 ([facility]) Body weight kg eCW1 ([facility]) Body weight 158.6 [lb_av] 158.6 [lb_av] eCW1 ([facility]) Diastolic blood pressure 70 mm[Hg] 70 mm[Hg] MEDENT ([facility]) Systolic blood pressure 112 mm[Hg] 112 mm[Hg] M EDENT ([facility]) Diastolic blood pressure 74 mm[Hg] 74 mm[Hg] MEDENT ([facility]) sitting, regular cuff Systolic blood pressure 112 mm[Hg] 112 mm[Hg] M EDENT ([facility]) sitting, regular cuff Heart rate 80 /min 80 /min MEDENT ([facility]) Regular Body mass index (BMI) [Ratio] 19.5 kg/m2 19.5 k g/m2 MEDENT ([facility]) Body height 76 [in_i] 76 [in_i] MEDENT ([facility]) 6'4" Body weight 160.00 [lb_av] 160.00 [lb_av] MEDEN T ([facility]) Diastolic blood pressure 82 mm[Hg] 82 mm[Hg] eCW1 ([facility]) Systolic blood pressure 152 mm[Hg] 152 mm[Hg] e CW1 ([facility]) Body temperature 97.2 [degF] 97.2 [degF] eCW1 ( [facility]) Respiratory rate 18 /min 18 /min eCW1 ([facility]) Heart rate 93 /min 93 /min eCW1 (On license of [facility]) Body mass index (BMI) [Ratio] 19.30 kg/m2 19.30 kg/m2 eCW1 ([facility]) Body height [in_i] eCW1 ([facility]) Body weight kg eCW1 ([facility]) Body weight 158.6 [lb_av] 158.6 [lb_av] eCW1 ([facility]) Diastolic blood pressure 84 mm[Hg] 84 mm[Hg] eCW1 ([facility]) Systolic blood pressure 130 mm[Hg] 130 mm[Hg] e CW1 ([facility]) Body temperature 96.6 [degF] 96.6 [degF] eCW1 ( [facility]) Respiratory rate 18 /min 18 /min eCW1 ([facility]) Heart rate 104 /min 104 /min eCW1 (On [facility] of [facility]) Body mass index (BMI) [Ratio] 19.30 kg/m2 19.30 kg/m2 eCW1 ([facility]) Body height [in_i] eCW1 ([facility]) Body weight 158.6 [lb_av] 158.6 [lb_av] eCW1 ([facility]) Diastolic blood pressure 80 mm[Hg] 80 mm[Hg] eCW1 ([facility]) Systolic blood pressure 185 mm[Hg] 185 mm[Hg] e CW1 ([facility]) Body temperature 97.1 [degF] 97.1 [degF] eCW1 ( [facility]) Respiratory rate 16 /min 16 /min eCW1 ([facility]) Heart rate 85 /min 85 /min eCW1 (On [facility] of [facility]) Body mass index (BMI) [Ratio] 20.08 kg/m2 20.08 kg/m2 eCW1 ([facility]) Body height [in_i] eCW1 ([facility]) Body weight 165 [lb_av] 165 [lb_av] eCW1 ([facility]) Oxygen saturation in Arterial blood by Pulse oximetry 100 % 100 % MEDENT ([facility] ) Body mass index (BMI) [Ratio] 21.6 kg/m2 21.6 k g/m2 MEDENT ([facility]) Body weight 168.38 [lb_av] 168.38 [lb_av] MEDEN T ([facility]) Body height 74 [in_i] 74 [in_i] MEDENT ([facility]) 6'2" Heart rate 69 /min 69 /min MEDENT ([facility]) Diastolic blood pressure 80 mm[Hg] 80 mm[Hg] MEDENT ([facility]) Systolic blood pressure 136 mm[Hg] 136 mm[Hg] M EDENT ([facility]) Body mass index (BMI) [Ratio] 22.0 kg/m2 22.0 k g/m2 MEDENT ([facility] ) Body weight 171.00 [lb_av] 171.00 [lb_av] MEDEN T ([facility] ) Body height 74 [in_i] 74 [in_i] MEDENT ([facility] ) 6'2" Diastolic blood pressure 72 mm[Hg] 72 mm[Hg] eCW1 ([facility]) Systolic blood pressure 120 mm[Hg] 120 mm[Hg] e CW1 ([facility]) Body temperature 96.4 [degF] 96.4 [degF] eCW1 ( [facility]) Respiratory rate 18 /min 18 /min eCW1 ([facility]) Heart rate 73 /min 73 /min eCW1 (On license of [facility]) Body mass index (BMI) [Ratio] 21.15 kg/m2 21.15 kg/m2 W1 ([facility]) Body height [in_us] eCW1 ([facility]) Body weight Measured 173.8 [lb_av] 173.8 [lb_av ] eCW1 ([facility]) Body mass index (BMI) [Ratio] 22.2 kg/m2 22.2 k g/m2 MEDENT ([facility] Body weight 175.00 [lb_av] 175.00 [lb_av] MEDEN T ([facility] ) Body height 74.50 [in_i] 74.50 [in_i] MEDENT ([facility]) 6'2.50" Diastolic blood pressure 66 mm[Hg] 66 mm[Hg] MEDENT ([facility]) Sitting Systolic blood pressure 122 mm[Hg] 122 mm[Hg] M EDENT ([facility]) Sitting Diastolic blood pressure 68 mm[Hg] 68 mm[Hg] MEDENT ([facility]) Sitting, regular cuff Systolic blood pressure 122 mm[Hg] 122 mm[Hg] M EDENT ([facility]) Sitting, regular cuff Respiratory rate 16 /min 16 /min MEDENT ( [facility]) Heart rate 84 /min 84 /min MEDENT ([facility]) Regular Body mass index (BMI) [Ratio] 21.8 kg/m2 21.8 k g/m2 MEDENT ([facility]) Body height 76 [in_i] 76 [in_i] MEDENT ([facility]) 6'4" Body weight 179.00 [lb_av] 179.00 [lb_av] MEDEN T ([facility]) Diastolic blood pressure 84 mm[Hg] 84 mm[Hg] eCW1 ([facility]) Systolic blood pressure 130 mm[Hg] 130 mm[Hg] e CW1 ([facility]) Body temperature 96.4 [degF] 96.4 [degF] eCW1 ( [facility]) Respiratory rate 18 /min 18 /min eCW1 ([facility]) Heart rate 129 /min 129 /min eCW1 (On license of [facility]) Body mass index (BMI) [Ratio] 22.13 kg/m2 22.13 kg/m2 eCW1 ([facility]) Body height [in_us] eCW1 ([facility]) Body weight Measured 181.8 [lb_av] 181.8 [lb_av ] eCW1 ([facility]) Oxygen saturation in Arterial blood by Pulse oximetry 98 % 98 % MEDENT ([facility]) Body mass index (BMI) [Ratio] 23.4 kg/m2 23.4 k g/m2 MEDENT ([facility]) Body weight 182.38 [lb_av] 182.38 [lb_av] MEDEN T ([facility]) Body height 74 [in_i] 74 [in_i] MEDENT ([facility]) 6'2" Heart rate 122 /min 122 /min MEDENT ([facility]) Diastolic blood pressure 88 mm[Hg] 88 mm[Hg] MEDENT ([facility]) Systolic blood pressure 140 mm[Hg] 140 mm[Hg] M EDENT ([facility]) ID Date Data Source [id number] 12/15/2020 01:10:00 PM EST [facility] Name Value Range Interpretation Code Description Data Source(s) WEIGHT 70 kilos 70 kilos [facility] HEIGHT 187.96 centimeters 187.96 centimeter [facility] WEIGHT 70.9 kilos 70.9 kilos [facility] HEIGHT 187.96 centimeters 187.96 centimeter [facility] ID Date Data Source [id number] 12/15/2020 08:29:49 AM EST [facility] Name Value Range Interpretation Code Description Data Source(s) WEIGHT RECORDED 154.00 pounds 154.00 pounds [facility] Height 72 Inches 072 Inches [facility] ID Date Data Source [id number] 12/13/2020 07:17:00 AM EST [facility] Name Value Range Interpretation Code Description Data Source(s) WEIGHT 71.3 kilos 71.3 kilos [facility] HEIGHT 187.96 centimeters 187.96 centimeter [facility] Patient Treatment Plan of Care Planned Activity Planned Date Details Description Data Source (s) Wheelchair - 10/19/2020 12:00:00 AM EST e CW1 ([facility]) Wheelchair - 10/19/2020 12:00:00 AM EST e CW1 ([facility]) Wheelchair - 10/19/2020 12:00:00 AM EST e CW1 ([facility]) sildenafil 100 MG Oral Tablet 03/25/2020 12:00:00 AM EDT eCW1 ([facility]) sildenafil 100 MG Oral Tablet 03/25/2020 12:00:00 AM EDT eCW1 ([facility]) ferrous sulfate 325 MG Oral Tablet 11/06/2019 12:00:00 AM EST eCW1 ([facility])
[2020-12-16] MEDS ORDERED: PANTOPRAZOLE SODIUM 40 MG in D5W 50 ML IV SCH (06:35)
[2020-12-16] MEDS ORDERED: DEXA6TAB PO (06:37)
--- NOTE | 2020-12-16 07:00 | REPVR ---
PROCEDURE INFORMATION: Exam: XR Chest Exam date and time: 12/16/2020 3:44 AM Age: 70 years old Clinical indication: Other: Covid TECHNIQUE: Imaging protocol: XR of the chest Views: 1 view. COMPARISON: CR Chest, 2 view PA, Lat 11/08/2020 8:47 PM FINDINGS: Lungs: There has been interval development of small patchy peripheral infiltrates consistent with an atypical pneumonia. Pleural spaces: No pleural effusion. No pneumothorax. Heart/Mediastinum: No cardiomegaly. Bones/joints: There are degenerative changes of the spine and left glenohumeral joint. IMPRESSION: There has been interval development of small patchy peripheral infiltrates consistent with an atypical pneumonia including viral pneumonia. Electronically signed by: Oscar Green On 12/16/2020 07:01:01 AM
[2020-12-16] MEDS: SYMBICORT 80/4.5MCG INHALER 6GM INH SCH ×2 (08:00→20:28)
[2020-12-16 08:34] LABS: IRON (FE) 23 UG/DL (65-175); PERCENT SATURATION 7.4 % (19.7-50.0); TOTAL IRON BINDING CAPACITY 312 UG/DL (250-450)
[2020-12-16] MEDS ORDERED: MOM 30ML SUSPENSION UDC PO PRN (08:40)
[2020-12-16] MEDS ORDERED: ACETAMINOPHEN TAB 650MG DOSE (2X325MG) PO PRN (08:40)
[2020-12-16] MEDS ORDERED: MAALOX 30 ML SUSP *UDC PO PRN (08:40)
[2020-12-16] MEDS ORDERED: GLUCOSE 4GM CHEW TABLET PO PRN (08:45)
[2020-12-16] MEDS ORDERED: DEXTROSE 50% 50 ML SYRINGE IV PRN (08:45)
[2020-12-16] MEDS ORDERED: GLUCAGON INJ 1MG VIAL SC PRN (08:45)
--- NOTE | 2020-12-16 09:39 | ECGEPIP ---
[facility] - ED Test Date: 2020-12-16 Pat Name: CHACHO LANDRUM Department: Room: [place] [address] Gender: Male [employer]: KANDIS : 1950 Requested By: RIGOBERTO Garrett Order Number: [id number] Reading MD: Erica Guillory Measurements Intervals [place] Rate: 75 P: 17 ME: 162 QRS: -16 QRSD: 98 T: -2 QT: 410 QTc: 457 Interpretive Statements Normal sinus rhythm NSTTW abnormalities similar 11/08/20 Electronically Signed on 12-16-2020 9:39:17 EST by Erica Guillory
[2020-12-16 09:45] VITALS: BP 129/62
--- NOTE | 2020-12-16 10:02 | HPEPDOC ---
[facility] Medical History & Physical Date of Admission Dec 16, 2020 Date of Service: Dec 16, 2020 History and Physical CHIEF COMPLAINT: Altered mental status HISTORY OF PRESENT ILLNESS: 70-year-old male with multiple medical problems who is a known insulin-dependent diabetic who is noncompliant who presents to emergency department found to have altered mental status and hyperglycemia blood sugar over 600. Patient has had similar episodes and admissions in the past for the same reason. He was recently here in October and was discharged to [facility] for subacute rehabilitation. At some point between then and now suspected to be a card that she got Covid 19 infection which is resolving. Patient's blood sugar improved to 269 in the ED with bolus of insulin at the time that I saw the patient he was no longer altered he was awake and alert and answering all my questions appropriately he was comfortable and said he was hungry. Patient denies any headaches blurry vision chest pain shortness of breath palpitations abdominal pain nausea vomiting or leg swelling. States he doesn't feel dizzy and he remembers being a little confused earlier but states she feels much better now. Tells me he lives at home with his and admits that he regularly misses his insulin at home without expiration. Tells me he has a supply at home he just sometimes decides not to take it. I asked him about his history of a local use he denies currently drinking alcohol or recently. 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 Mendez) Hyperlipidemia COPD Former Smoker gout Atrial Fibrillation - on Pradaxa Squamous cell ca skin - followed by Derm chronic neck and back pain - Lumbar/Cervical DDD Left knee arthritis - followed by Dr.S Caldwell - s/p viscosupplementation Diabetic foot ulcers - s/p 2nd toe partial amputation by Dr. Sherman Hernia repair R hip arthroplasty Resection of polyps in colon Hemorrhoidectomy Resection of squamous cell cancer on his chest Tonsillectomy Myringotomy SOCIAL HISTORY: Denies alcohol use currently but chart review reveals a history of alcohol abuse Denies tobacco use currently states that he quit smoking over 15 years ago Denies illicit drug use Says that he lives at home with his FAMILY HISTORY: Reviewed and none contributory to this admission ALLERGIES: Please see below. REVIEW OF SYSTEMS: 10 point review of systems complete all negative otherwise stated in HPI HOME MEDICATIONS: Please see below. PHYSICAL EXAMINATION: Constitutional: Awake and alert, in no apparent distress answering all my questions appropriately. ENT: Sclera are clear Respiratory: Lungs decreased breath sounds bilaterally. No respiratory distress. No use of accessory muscles. Cardiovascular: Regular heart rate Gastrointestinal: Abdomen is soft, non distended, non tender Musculoskeletal: No lower extremity edema. Neurologic: No focal neurological deficit. Mental Status: A&O x3, normal affect Skin: Warm, dry LABORATORY DATA: See below. IMAGING: See chart MICROBIOLOGY: Please see below. ASSESSMENT/PLAN 70-year-old male noncompliant insulin-dependent diabetic presents to the hospital with altered mental status found to be hyperglycemic with blood sugars over 600 admitted to the hospital for further management. # Acute metabolic encephalopathy: This was likely due to his hyperglycemic state. This had completely resolved at the time that I have seen him in the ED. # HHS with known underlying IDDM: Frequent Accu-Cheks. Hypoglycemic precautions. BS was 269 in the ED s/p Insulin bolus and I don't think he needs an insulin drip at this time. His AMS has resolved and he's about to have breakfast. I'll place him on Levemir 15uBID along with the ISS. 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 # History of Covid 19 infection: This appears to be a resolving infection. I ordered a pro-calcitonin. Chest x-ray reveals a viral picture pneumonia. His d- dimer slightly elevated which is expected. He has no respiratory complaints and no symptoms of Covid at this time. # Anemia: possible upper GI bleed. Guaiac positive in the ED. Monitor CBC. Transfuse PRN hgb<7. PPI BID. No obvious active bleeding. # Type 2 diabetes: As above. Follows with endocrinology Dr. Caldwell. Patient is noncompliant with his insulin. with neuropathy and nephropathy # history of alcohol abuse: Patient denies drinking currently but chart review reveals a history of alcohol abuse. I'll place on CIWA protocol. # CAD: Aspirin and statin # Diabetic foot ulcers:s/p 2nd toe partial amputation by Dr. Sherman. Fu with podiatry OP. # Paroxysmal A. fib: On predaxa anticoagulated. Rate controlled with BB. # CKD 2: Follows with nephrology Dr. Mendez. Avoid nephrotoxins. # Hypertension: Continue home meds. Monitor and titrate # COPD: Not in exacerbation. Continue home inhalers. # GERD: Continue home medication # Gout: continue home medication # DVT prophylaxis: Predaxa will be on hold due to possible GI bleed. SCDs only. A [facility] Hospitalist Vital Signs Vital Signs Date Time Temp Pulse Resp B/P (MAP) Pulse Ox O2 Delivery O2 Flow Rate FiO2 12/16/20 09:33 97.2 83 20 127/68 (87) 97 12/16/20 03:22 Room Air Laboratory Data Labs 24H Laboratory Tests 2 12/16/20 03:05: Immature Granulocyte % (Auto) 1.5, Neutrophils (%) (Auto) 65.2, Lymphocytes (%) (Auto) 26.6, Monocytes (%) (Auto) 6.7, Eosinophils (%) (Auto) 0.0, Basophils (%) (Auto) 0.0, Neutrophils # (Auto) 3.4, Lymphocytes # (Auto) 1.4L, Monocytes # (Auto) 0.4, Eosinophils # (Auto) 0.0, Basophils # (Auto) 0.0, Reticulocyte # (auto) 69.2, Nucleated Red Blood Cells % (auto) 0.0, Percent Reticulocyte Count 1.9H, Reticulocyte Hemoglobin Equivalent 23.1L, D-Dimer, Quantitative 483.88, Anion Gap 4L, Glomerular Filtration Rate > 60.0, Estimated Mean Plasma Glucose 203H, Hemoglobin A1c 8.7, Osmolality 317H, Lactic Acid Level 1.5, Calcium Level 8.8, Iron Level 23L, Total Iron Binding Capacity 312, Transferrin % Saturation 7.4L, Ferritin 61, Total Bilirubin 0.3, Direct Bilirubin 0.2, Aspartate Amino Transf (AST/SGOT) 16, Alanine Aminotransferase (ALT/SGPT) 25, Alkaline Phosphatase 137H, Lactate Dehydrogenase 180, Total Creatine Kinase 34L, Creatine Kinase MB 2.6, Creatine Kinase MB Relative Index 7.65H, Troponin I < 0.02, Total Protein 6.4, Albumin 2.7L, Albumin/Globulin Ratio 0.7, Lipase 19L, Ethyl Alcohol Level < 0.003, B-Hydroxybutyrate 5.49H 12/16/20 03:37: Bedside Glucose (Misc Panel) > 600*H 12/16/20 04:49: Blood Gas Bicarbonate Standard 22.2, Venous Blood pH 7.308L, Venous Blood Partial Pressure CO2 49.9, Venous Blood Partial Pressure O2 26.8L, Venous Blood Total Carbon Dioxide 26.0, Venous Blood HCO3 24.4, Venous Blood Oxygen Saturatio n 42.2L, Venous Blood Base Excess -1.9 12/16/20 05:05: Urine Color STRAW, Urine Appearance CLEAR, Urine pH 7.0, Urine Specific [place] 1.016, Urine Protein NEGATIVE, Urine Glucose (UA) 3+H, Urine Ketones NEGATIVE, Urine Blood 1+H, Urine Nitrite NEGATIVE, Urine Bilirubin NEGATIVE, Urine Urobilinogen 0.2, Urine Leukocyte Esterase NEGATIVE, Urine WBC (Auto) 0, Urine RBC (Auto) 12H, Urine Hyaline Casts (Auto) 0, Urine Bacteria (Auto) 1+H, Urine Squamous Epithelial Cells 0, Urine Sperm (Auto) 12/16/20 06:05: Bedside Glucose (Misc Panel) 533*H 12/16/20 08:04: Bedside Glucose (Misc Panel) 269H CBC/BMP Laboratory Tests 12/16/20 03:05 Microbiology Microbiology 12/16/20 Blood Culture, Ordered Pending 12/16/20 Blood Culture, Received Pending Home Medications Scheduled Allopurinol (Allopurinol) 100 Mg Tab, 50 MG PO DAILY Aspirin (Aspirin EC) 81 Mg Tablet.dr, 81 MG PO DAILY Budesonide/Formoterol (Symbicort 80-4.5 Mcg Inhaler) 60 Puff/Inhaler Aers, 2 PUFF INH BID Bupropion HCl (Bupropion Xl) 300 Mg Tab.er.24h, 300 MG PO DAILY Cholecalciferol (Vitamin D3) (Vitamin D3) 1,000 Unit Tablet, 1,000 UNITS PO DAILY Cyanocobalamin (Vitamin B-12) (Vitamin B-12) 1,000 Mcg Tab, 1,000 MCG PO DAILY Dabigatran Etexilate Mesylate (Pradaxa) 150 Mg Capsule, 150 MG PO BID Dexamethasone (Dexamethasone) 6 Mg Tablet, 6 MG PO DAILY STARTED 12/14/20 Esomeprazole Magnesium (Esomeprazole Magnesium) 40 Mg Capsule.dr, 40 MG PO DAILY Famotidine (Famotidine) 40 Mg Tablet, 40 MG PO DAILY Fluoxetine Hcl (Fluoxetine HCl) 20 Mg Cap, 20 MG PO DAILY Folic Acid (Folic Acid) 0.4 Mg Tablet, 400 MCG PO DAILY Insulin Degludec (Tresiba Flextouch U-100) 100 Unit/Ml Inj, 14 UNIT SC DAILY Insulin Human Lispro (Humalog) 1 Units/0.01 Ml Inj, 1 DOSE SC AC PER SLIDING SCALE Lisinopril (Lisinopril) 20 Mg Tab, 20 MG PO DAILY Metoprolol Succinate (Metoprolol Succinate) 50 Mg Tab.er.24h, 50 MG PO BID Pravastatin Sodium (Pravachol) 20 Mg Tab, 20 MG PO DAILY Scheduled PRN Glucagon,Human Recombinant (Glucagon Emergency Kit) 1 Mg Vial, 1 MG IM ASDIRECTED PRN for LOW BLOOD SUGAR Allergies Coded Allergies: No Known Allergies (Verified , 10/27/20) A-FIB/CHADSVASC A-FIB History Current/History of A-Fib/PAF?: Yes Current PO Anticoag Therapy: Yes SOREN SWEENEY MD Dec 16, 2020 10:02
[2020-12-16] MEDS: LEVEMIR (INSULIN DETEMIR) 1 UNITS/0.01ML SC SCH ×2 (11:06→19:52)
[2020-12-16] MEDS: FAMOTIDINE 20 MG TAB PO SCH (11:07)
[2020-12-16] MEDS: METOPROLOL SUCC (TopROL XL) 50MG **XL** TAB PO SCH ×2 (11:07→19:52)
[2020-12-16] MEDS: buPROPion **XL** TABLET 150MG (WELLBUTRIN XL) PO SCH (11:07)
[2020-12-16] MEDS: DOCUSATE SODIUM 100MG CAPSULE PO SCH ×2 (11:08→19:51)
[2020-12-16] MEDS: ASPIRIN 81 MG ENTERIC TAB PO SCH (11:08)
[2020-12-16] MEDS: FLUoxetine 20 MG CAP PO SCH (11:08)
[2020-12-16] MEDS: THIAMINE 100 MG TAB PO SCH ×2 (11:08→19:51)
[2020-12-16 14:00] VITALS: BP 129/62
[2020-12-16] MEDS: HumaLOG INSULIN (NovoLOG) PER UNIT SC SCH ×3 (14:30→19:28)
[2020-12-16] MEDS: PRAVASTATIN 20 MG TAB PO SCH (14:31)
[2020-12-16] MEDS: DABIGATRAN ETEXILATE 75 MG CAP (PRADAXA) PO SCH ×2 (14:31→19:51)
[2020-12-16] MEDS: allopurinoL 100 MG TAB PO SCH (14:32)
[2020-12-16 16:00] VITALS: BP 125/70
[2020-12-16 19:22] VITALS: BP 106/61
[2020-12-16] MEDS: PANTOPRAZOLE 40MG VIAL (C9113 PER 1) IV SCH (19:51)
[2020-12-16] MEDS: LORazepam 2 MG TAB PO PRN (22:23)
[2020-12-17] VITALS (10 sets, daily range): BP systolic 112–151; BP diastolic 60–76
[2020-12-17 06:23] LABS: ALBUMIN 2.4 GM/DL (3.2-5.2); ALT/SGPT 19 U/L (12-78); BILIRUBIN,TOTAL 0.2 MG/DL (0.2-1.0); BLOOD UREA NITROGEN 20 MG/DL (7-18); CALCIUM LEVEL 8.5 MG/DL (8.8-10.2); CARBON DIOXIDE LEVEL 30 MEQ/L (21-32); CHLORIDE LEVEL 109 MEQ/L (98-107); CREATININE FOR GFR 0.85 MG/DL (0.70-1.30); GLOMERULAR FILTRATION RATE > 60.0 (>42); GLUCOSE, FASTING 42 MG/DL (70-100); MAGNESIUM LEVEL 1.5 MG/DL (1.8-2.4); POTASSIUM SERUM 4.1 MEQ/L (3.5-5.1); SODIUM LEVEL 141 MEQ/L (136-145); TOTAL PROTEIN 5.6 GM/DL (6.4-8.2)
[2020-12-17] MEDS: HumaLOG INSULIN (NovoLOG) PER UNIT SC SCH ×4 (07:30→20:50)
[2020-12-17] MEDS: SYMBICORT 80/4.5MCG INHALER 6GM INH SCH ×2 (07:40→20:04)
[2020-12-17 08:15] LABS: HEMATOCRIT 24.9 % (42.0-52.0); HEMOGLOBIN 7.3 g/dl (13.5-17.5); MEAN CORPUSCULAR HEMOGLOBIN 23.2 pg (27.0-33.0); MEAN CORPUSCULAR HGB CONC 29.3 g/dl (32.0-36.5); PLATELET COUNT, AUTOMATED 315 10^3/uL (150-450); RED BLOOD COUNT 3.15 10^6/uL (4.30-6.10); WHITE BLOOD COUNT 6.3 10^3/uL (4.0-10.0)
[2020-12-17] MEDS: PANTOPRAZOLE 40MG VIAL (C9113 PER 1) IV SCH ×2 (08:25→20:49)
[2020-12-17] MEDS: MAG SULF 1GM/100ML (MAG RUN) 1 GM in IV 1 EA IV SCH ×2 (08:25→08:36)
[2020-12-17] MEDS: ASPIRIN 81 MG ENTERIC TAB PO SCH (08:30)
[2020-12-17] MEDS: MULTIVITAMINS/MINERALS THERAP 1 TAB PO SCH (08:30)
[2020-12-17] MEDS: THIAMINE 100 MG TAB PO SCH ×2 (08:32→20:49)
[2020-12-17] MEDS: FOLIC ACID 1 MG TAB PO SCH (08:32)
[2020-12-17] MEDS: DOCUSATE SODIUM 100MG CAPSULE PO SCH ×2 (08:33→20:51)
[2020-12-17] MEDS: allopurinoL 100 MG TAB PO SCH (08:33)
[2020-12-17] MEDS: FLUoxetine 20 MG CAP PO SCH (08:33)
[2020-12-17] MEDS: PRAVASTATIN 20 MG TAB PO SCH (08:33)
[2020-12-17] MEDS: METOPROLOL SUCC (TopROL XL) 50MG **XL** TAB PO SCH ×2 (08:33→20:50)
[2020-12-17] MEDS: FAMOTIDINE 20 MG TAB PO SCH (08:34)
[2020-12-17] MEDS: LEVEMIR (INSULIN DETEMIR) 1 UNITS/0.01ML SC SCH ×2 (09:00→20:50)
[2020-12-17] MEDS: buPROPion **XL** TABLET 150MG (WELLBUTRIN XL) PO SCH (09:15)
[2020-12-17] MEDS: DABIGATRAN ETEXILATE 75 MG CAP (PRADAXA) PO SCH ×2 (09:16→20:49)
--- NOTE | 2020-12-17 10:48 | IPNPDOC ---
Text Note Date of Service The patient was seen on 12/17/20. NOTE Subjective: Seen and examined this morning, episode of asymptomatic hypoglycemia this morning. Patient well about to have breakfast, without any complaints at this time. will be transfused blood later today. Objective: Constitutional: Awake and alert, in no apparent distress answering all my questions appropriately. ENT: Sclera are clear Respiratory: Lungs decreased breath sounds bilaterally. No respiratory distress. Cardiovascular: Regular heart rate Gastrointestinal: Abdomen is soft, non distended, non tender Musculoskeletal: No lower extremity edema. Neurologic: No focal neurological deficit. Mental Status: A&O x3, normal affect Skin: Warm, dry Assessment/plan: 70-year-old male noncompliant insulin-dependent diabetic presents to the hospital with altered mental status found to be hyperglycemic with blood sugars over 600 admitted to the hospital for further management. # Anemia: possible upper GI bleed. Guaiac positive in the ED. Monitor CBC. Transfuse PRN hgb<7. PPI BID. No obvious active bleeding. Hemoglobin dropped slightly this morning and I will transfuse him 1 unit of blood consent is in the chart. Recheck HH after transfusion. Stool occult pending. # Acute metabolic encephalopathy: This was likely due to his hyperglycemic state. This had completely resolved at the time that I have seen him in the ED. # HHS with known underlying IDDM: His blood sugars are fairly labile hypoglycemic this morning. Frequent Accu-Cheks. Hypoglycemic precautions. BS was 269 in the ED s/p Insulin bolus. I'll place him on Levemir 10u BID along with the ISS. 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 I ordered a pro-calcitonin which was negative. Chest x-ray reveals a viral picture pneumonia. His d-dimer slightly elevated which is expected. He has no respiratory complaints and no symptoms of Covid at this time. # Type 2 diabetes: As above. Follows with endocrinology Dr. Caldwell. Patient is noncompliant with his insulin. with neuropathy and nephropathy # history of alcohol abuse: Patient denies drinking currently but chart review reveals a history of alcohol abuse. I'll place on CIWA protocol. # CAD: Aspirin and statin # Diabetic foot ulcers:s/p 2nd toe partial amputation by Dr. Sherman. Fu with podiatry OP. # Paroxysmal A. fib: On productive anticoagulated. Rate controlled with BB. # CKD 2: Follows with nephrology Dr. Mendez. Avoid nephrotoxins. # Hypertension: Continue home meds. Monitor and titrate # COPD: Not in exacerbation. Continue home inhalers. # GERD: Continue home medication # Gout: continue home medication # DVT prophylaxis: Predaxa will be on hold due to possible GI bleed. SCDs only. [facility] VSRubens, I+O VSRubens I+O Laboratory Tests 12/17/20 05:14 12/17/20 05:17 Vital Signs Date Time Temp Pulse Resp B/P (MAP) Pulse Ox O2 Delivery O2 Flow Rate FiO2 12/17/20 08:33 75 116/62 12/17/20 05:00 97.6 20 92 12/17/20 04:20 Room Air I&O- Last 24 Hours up to 6 AM 12/17/20 06:00 Intake Total 1890 ml Output Total 1350 ml Balance 540 ml SOREN SWEENEY MD Dec 17, 2020 10:48
[2020-12-17] MEDS: LORazepam 2 MG TAB PO PRN (16:53)
[2020-12-18 06:00] VITALS: BP 138/76
[2020-12-18] MEDS: SYMBICORT 80/4.5MCG INHALER 6GM INH SCH ×2 (07:51→20:06)
[2020-12-18] MEDS: HumaLOG INSULIN (NovoLOG) PER UNIT SC SCH ×4 (08:48→20:43)
[2020-12-18] MEDS: LEVEMIR (INSULIN DETEMIR) 1 UNITS/0.01ML SC SCH ×2 (08:48→20:43)
[2020-12-18] MEDS: PANTOPRAZOLE 40MG VIAL (C9113 PER 1) IV SCH ×2 (08:48→20:41)
[2020-12-18] MEDS: MULTIVITAMINS/MINERALS THERAP 1 TAB PO SCH (08:49)
[2020-12-18] MEDS: FLUoxetine 20 MG CAP PO SCH (08:49)
[2020-12-18] MEDS: allopurinoL 100 MG TAB PO SCH (08:49)
[2020-12-18] MEDS: FAMOTIDINE 20 MG TAB PO SCH (08:49)
[2020-12-18] MEDS: buPROPion **XL** TABLET 150MG (WELLBUTRIN XL) PO SCH (08:49)
[2020-12-18] MEDS: DABIGATRAN ETEXILATE 75 MG CAP (PRADAXA) PO SCH (08:49)
[2020-12-18] MEDS: FOLIC ACID 1 MG TAB PO SCH (08:49)
[2020-12-18] MEDS: THIAMINE 100 MG TAB PO SCH ×2 (08:49→20:41)
[2020-12-18] MEDS: ASPIRIN 81 MG ENTERIC TAB PO SCH (08:49)
[2020-12-18] MEDS: DOCUSATE SODIUM 100MG CAPSULE PO SCH ×2 (08:49→20:41)
[2020-12-18] MEDS: PRAVASTATIN 20 MG TAB PO SCH (08:49)
[2020-12-18] MEDS: METOPROLOL SUCC (TopROL XL) 50MG **XL** TAB PO SCH ×2 (08:50→20:42)
[2020-12-18] MEDS ORDERED: NORTRIPTYLINE 10 MG CAP PO PRN (08:50)
[2020-12-18 08:55] LABS: PHOSPHORUS LEVEL 2.9 MG/DL (2.5-4.9)
--- NOTE | 2020-12-18 09:01 | IPNPDOC ---
Text Note Date of Service The patient was seen on 12/18/20. NOTE SUBJECTIVE: Sitting upright in the chair this morning when evaluated. He was just starting to eat breakfast. He is quite pleasant to speak with at this time, however apparently he reportedly can be very belligerent at times. He does not have any complaints or issues, he reports that he is actaully feeling quite well at this time. Remainder of ROS is negative at this time. OBJECTIVE: Constitutional: Awake and alert, in no apparent distress answering all my questions appropriately. ENT: Sclera are clear Respiratory: CTAB. No respiratory distress. No use of accessory muscles. Cardiovascular: Regular heart rate, rhythm, no murmurs, no rubs, no gallops. Gastrointestinal: Abdomen is soft, non distended, non tender Extremities: No lower extremity edema. Left foot deformed, apparently he left his boot at home. Neurologic: No focal neurological deficit. Mental Status: A&O x3, normal affect Skin: Warm, dry ASSESSMENT/PLAN 70-year-old male noncompliant insulin-dependent diabetic presents to the hospital with altered mental status found to be hyperglycemic with blood sugars over 600 admitted to the hospital for further management. # Acute metabolic encephalopathy: This was likely due to his hyperglycemic state. Now resolved. # HHS with known underlying IDDM: Frequent Accu-Cheks. Appears to be resolved now. Hypoglycemic precautions. Levemir BID and Short-acting AC & HS. # History of Covid 19 infection: This appears to be a resolving infection. Pro- calcitonin pending. Chest x-ray reveals a viral picture pneumonia. His d-dimer slightly elevated which is expected. He has no respiratory complaints and no symptoms of Covid at this time. # Anemia: possible upper GI bleed. Guaiac positive in the ED. Monitor CBC. Transfuse PRN hgb<7. PPI BID. No obvious active bleeding. # Type 2 diabetes: As above. Follows with endocrinology Dr. Caldwell. Patient is noncompliant with his insulin. with neuropathy and nephropathy # history of alcohol abuse: Patient denies drinking currently but chart review reveals a history of alcohol abuse. Continue CIWA protocol. Hydroxyzine ordered, and should be used preferentially if having anxiety/agitation but does not qualify per CIWA protocol. Also added Nortriptyline QHS PRN if having issues with sleeping. # CAD: Aspirin and statin # Diabetic foot ulcers:s/p 2nd toe partial amputation by Dr. Sherman. Fu with podiatry OP. # Paroxysmal A. fib: anticoagulated with Pradaxa at home, but will hold at this time due to anemia & concerns for active bleeding. Rate controlled with BB. # CKD 2: Follows with nephrology Dr. Mendez. Avoid nephrotoxins. # Hypertension: Continue home meds. Monitor and titrate # COPD: Not in exacerbation. Continue home inhalers. # GERD: Continue home medication # Gout: continue home medication # DVT prophylaxis: Pradaxa will be on hold due to possible GI bleed. SCDs only. VS,Fishbone, I+O VS, Fishbone, I+O Vital Signs Date Time Temp Pulse Resp B/P (MAP) Pulse Ox O2 Delivery O2 Flow Rate FiO2 12/18/20 08:50 83 138/76 12/18/20 06:00 97.4 19 98 Room Air I&O- Last 24 Hours up to 6 AM 12/18/20 06:00 Intake Total 1560 ml Output Total 200 ml Balance 1360 ml MARYAN QIU DO Dec 18, 2020 09:01
[2020-12-18 10:04] LABS: HEMATOCRIT 31.5 % (42.0-52.0); HEMOGLOBIN 9.7 g/dl (13.5-17.5); MEAN CORPUSCULAR HEMOGLOBIN 24.2 pg (27.0-33.0); MEAN CORPUSCULAR HGB CONC 30.8 g/dl (32.0-36.5); MEAN CORPUSCULAR VOLUME 78.6 fl (80.0-96.0); PLATELET COUNT, AUTOMATED 384 10^3/uL (150-450); RED BLOOD COUNT 4.01 10^6/uL (4.30-6.10); WHITE BLOOD COUNT 9.4 10^3/uL (4.0-10.0)
[2020-12-18] MEDS: hydrOXYzine 50 MG TAB PO PRN ×2 (10:16→16:51)
[2020-12-18 13:08] LABS: ALBUMIN 2.5 GM/DL (3.2-5.2); BLOOD UREA NITROGEN 16 MG/DL (7-18); CALCIUM LEVEL 8.9 MG/DL (8.8-10.2); CARBON DIOXIDE LEVEL 26 MEQ/L (21-32); CHLORIDE LEVEL 105 MEQ/L (98-107); CREATININE FOR GFR 0.76 MG/DL (0.70-1.30); GLOMERULAR FILTRATION RATE > 60.0 (>42); GLUCOSE, FASTING 171 MG/DL (70-100); PHOSPHORUS LEVEL 3.2 MG/DL (2.5-4.9); POTASSIUM SERUM 4.2 MEQ/L (3.5-5.1); SODIUM LEVEL 135 MEQ/L (136-145)
[2020-12-18 14:00] VITALS: BP 101/68
[2020-12-18 22:00] VITALS: BP 113/69
[2020-12-19] MEDS: hydrOXYzine 50 MG TAB PO PRN (00:21)
[2020-12-19] MEDS ORDERED: MORPHINE 2 MG/ML 1ML VIAL (J2270) IV ONE (05:30)
[2020-12-19] MEDS ORDERED: DEXTROSE 15GM (40%) TUBE (GLUTOSE 15) PO ONE (05:30)
[2020-12-19] MEDS ORDERED: MORPHINE 2 MG/ML 1ML VIAL (J2270) As Ordered ONE (05:32)
[2020-12-19 05:33] VITALS: BP 156/88
[2020-12-19] MEDS ORDERED: DEXTROSE 50% 50 ML SYRINGE IV STA (05:48)
[2020-12-19 05:55] VITALS: BP 147/80
[2020-12-19 06:16] LABS: HEMATOCRIT 32.5 % (42.0-52.0); MEAN CORPUSCULAR HEMOGLOBIN 24.3 pg (27.0-33.0); MEAN CORPUSCULAR HGB CONC 30.8 g/dl (32.0-36.5); MEAN CORPUSCULAR VOLUME 79.1 fl (80.0-96.0); PLATELET COUNT, AUTOMATED 368 10^3/uL (150-450); RED BLOOD COUNT 4.11 10^6/uL (4.30-6.10); WHITE BLOOD COUNT 11.1 10^3/uL (4.0-10.0)
[2020-12-19 06:46] LABS: ALBUMIN 2.6 GM/DL (3.2-5.2); BLOOD UREA NITROGEN 18 MG/DL (7-18); CALCIUM LEVEL 8.7 MG/DL (8.8-10.2); CARBON DIOXIDE LEVEL 26 MEQ/L (21-32); CHLORIDE LEVEL 109 MEQ/L (98-107); CREATININE FOR GFR 0.77 MG/DL (0.70-1.30); GLOMERULAR FILTRATION RATE > 60.0 (>42); GLUCOSE, FASTING 80 MG/DL (70-100); PHOSPHORUS LEVEL 3.7 MG/DL (2.5-4.9); POTASSIUM SERUM 3.8 MEQ/L (3.5-5.1); SODIUM LEVEL 140 MEQ/L (136-145)
[2020-12-19] MEDS: SYMBICORT 80/4.5MCG INHALER 6GM INH SCH ×2 (07:15→19:47)
[2020-12-19] MEDS: HumaLOG INSULIN (NovoLOG) PER UNIT SC SCH ×4 (07:30→20:43)
[2020-12-19] MEDS: FAMOTIDINE 20 MG TAB PO SCH (10:51)
[2020-12-19] MEDS: PRAVASTATIN 20 MG TAB PO SCH (10:51)
[2020-12-19] MEDS: MULTIVITAMINS/MINERALS THERAP 1 TAB PO SCH (10:51)
[2020-12-19] MEDS: PANTOPRAZOLE 40MG VIAL (C9113 PER 1) IV SCH ×2 (10:51→20:45)
[2020-12-19] MEDS: FOLIC ACID 1 MG TAB PO SCH (10:51)
[2020-12-19] MEDS: ASPIRIN 81 MG ENTERIC TAB PO SCH (10:52)
[2020-12-19] MEDS: FLUoxetine 20 MG CAP PO SCH (10:52)
[2020-12-19] MEDS: allopurinoL 100 MG TAB PO SCH (10:52)
[2020-12-19] MEDS: DOCUSATE SODIUM 100MG CAPSULE PO SCH ×2 (10:52→20:44)
[2020-12-19] MEDS: buPROPion **XL** TABLET 150MG (WELLBUTRIN XL) PO SCH (10:54)
[2020-12-19] MEDS: METOPROLOL SUCC (TopROL XL) 50MG **XL** TAB PO SCH ×2 (10:56→20:44)
[2020-12-19 14:00] VITALS: BP 152/88
--- NOTE | 2020-12-19 16:42 | IPNPDOC ---
Text Note Date of Service The patient was seen on 12/19/20. NOTE SUBJECTIVE: Apparently the patient had low blood sugars overnight and was quite lethargic, sufficient to the point that any up of D50 was given. His long-acting Levemir was discontinued and we'll only continue with AC/HS fingersticks with short acting insulin at this time. Today, the patient once again seems to be in an amiable mood. He does not have any complaints is time. Additionally, it appears that some of his wounds and may not have been documented on admission. He does have 2 small wounds on the left heel, one is on the posterior aspect approximately 2-3 mm in diameter by visual estimate, and the other is on the inferior aspect of his left calcaneus that is a small laceration approximately 4-5 mm long. Also he has one small unstageable (covered with eschar) approximately 2-3 mm wound on the right heel as well. All of these apparently were even present on his last admission, therefore can be safely assume that they were present upon admission during this hospitalization. The patient has a [place] boot for the left foot which was apparently left at home. Con tinue with heel floats and appropriate wound care during this hospitalization. OBJECTIVE: Constitutional: Awake and alert, in no apparent distress answering all my questions appropriately. ENT: Sclera are clear Respiratory: CTAB. No respiratory distress. No use of accessory muscles. Cardiovascular: Regular heart rate, rhythm, no murmurs, no rubs, no gallops. Gastrointestinal: Abdomen is soft, non distended, non tender Extremities: No lower extremity edema. Left foot deformed, apparently he left his boot at home. Chronic ulcer/wounds as described above. Neurologic: No focal neurological deficit. Mental Status: normal affect ASSESSMENT/PLAN 70-year-old male noncompliant insulin-dependent diabetic presents to the hospital with altered mental status found to be hyperglycemic with blood sugars over 600 admitted to the hospital for further management. # Acute metabolic encephalopathy: This was likely due to his hyperglycemic state. Now resolved. # HHS with known underlying IDDM: Frequent Accu-Cheks. Appears to be resolved now. Hypoglycemic precautions. Had an episode of hypoglycemia 12/18 during the night. Long-acting Levemir has been discontinued. Continue with Short-acting AC & HS. # History of Covid 19 infection: This appears to be a resolving infection. Pro- calcitonin pending. Chest x-ray reveals a viral picture pneumonia. His d-dimer slightly elevated which is expected. He has no respiratory complaints and no symptoms of Covid at this time. # Anemia: possible upper GI bleed. Guaiac positive in the ED. Monitor CBC. Transfuse PRN hgb<7. PPI BID. No obvious active bleeding. H/H continues to trend upward, we will continue to hold his anticoagulation at this time. # Type 2 diabetes: As above. Follows with endocrinology Dr. Caldwell. Patient is noncompliant with his insulin. with neuropathy and nephropathy # history of alcohol abuse: Patient denies drinking currently but chart review reveals a history of alcohol abuse. Continue CIWA protocol. Hydroxyzine ordered, and should be used preferentially if having anxiety/agitation and does not qualify per CIWA protocol. Nortriptyline QHS PRN if having issues with sleeping. # CAD: Aspirin and statin # Diabetic foot ulcers:s/p 2nd toe partial amputation by Dr. Sherman. Fu with podiatry OP. Continue Wound care to chronic ulcers on the bilateral heels, recommend that he wear heel floats while in bed. # Paroxysmal A. fib: anticoagulated with Pradaxa at home, but will hold at this time due to anemia & concerns for active bleeding. Rate controlled with BB. # CKD 2: Follows with nephrology Dr. Mendez. Avoid nephrotoxins. # Hypertension: Continue home meds. Monitor and titrate # COPD: Not in exacerbation. Continue home inhalers. # GERD: Continue home medication # Gout: continue home medication # DVT prophylaxis: Pradaxa will be on hold due to possible GI bleed. SCDs only. Disposition: Likely will need placement VS,Fishbone, I+O VS, Fishbone, I+O Laboratory Tests 12/19/20 06:00 Vital Signs Date Time Temp Pulse Resp B/P (MAP) Pulse Ox O2 Delivery O2 Flow Rate FiO2 12/19/20 14:00 97.6 85 17 152/88 (109) 100 Room Air I&O- Last 24 Hours up to 6 AM 12/19/20 06:00 Intake Total 1886 ml Output Total 1775 ml Balance 111 ml MARYAN QIU DO Dec 19, 2020 16:42
[2020-12-19 22:00] VITALS: BP 111/68
[2020-12-20 06:00] VITALS: BP 123/67
[2020-12-20 06:05] LABS: HEMATOCRIT 28.7 % (42.0-52.0); HEMOGLOBIN 8.8 g/dl (13.5-17.5); MEAN CORPUSCULAR HGB CONC 30.7 g/dl (32.0-36.5); MEAN CORPUSCULAR VOLUME 78.2 fl (80.0-96.0); PLATELET COUNT, AUTOMATED 274 10^3/uL (150-450); RED BLOOD COUNT 3.67 10^6/uL (4.30-6.10)
[2020-12-20 06:34] LABS: ALBUMIN 2.3 GM/DL (3.2-5.2); BLOOD UREA NITROGEN 22 MG/DL (7-18); CALCIUM LEVEL 8.5 MG/DL (8.8-10.2); CARBON DIOXIDE LEVEL 27 MEQ/L (21-32); CHLORIDE LEVEL 101 MEQ/L (98-107); GLOMERULAR FILTRATION RATE > 60.0 (>42); GLUCOSE, FASTING 377 MG/DL (70-100); PHOSPHORUS LEVEL 3.1 MG/DL (2.5-4.9); POTASSIUM SERUM 4.5 MEQ/L (3.5-5.1); SODIUM LEVEL 133 MEQ/L (136-145)
[2020-12-20] MEDS: SYMBICORT 80/4.5MCG INHALER 6GM INH SCH ×2 (07:24→19:39)
[2020-12-20] MEDS: HumaLOG INSULIN (NovoLOG) PER UNIT SC SCH ×4 (08:11→20:27)
[2020-12-20] MEDS: hydrOXYzine 50 MG TAB PO PRN ×2 (08:12→14:31)
[2020-12-20] MEDS: allopurinoL 100 MG TAB PO SCH (08:12)
[2020-12-20] MEDS: DOCUSATE SODIUM 100MG CAPSULE PO SCH ×2 (08:12→21:00)
[2020-12-20] MEDS: FAMOTIDINE 20 MG TAB PO SCH (08:12)
[2020-12-20] MEDS: FOLIC ACID 1 MG TAB PO SCH (08:13)
[2020-12-20] MEDS: ASPIRIN 81 MG ENTERIC TAB PO SCH (08:13)
[2020-12-20] MEDS: METOPROLOL SUCC (TopROL XL) 50MG **XL** TAB PO SCH ×2 (08:13→21:00)
[2020-12-20] MEDS: FLUoxetine 20 MG CAP PO SCH (08:13)
[2020-12-20] MEDS: buPROPion **XL** TABLET 150MG (WELLBUTRIN XL) PO SCH (08:13)
[2020-12-20] MEDS: PRAVASTATIN 20 MG TAB PO SCH (08:13)
[2020-12-20] MEDS: MULTIVITAMINS/MINERALS THERAP 1 TAB PO SCH (08:13)
[2020-12-20] MEDS: PANTOPRAZOLE 40MG VIAL (C9113 PER 1) IV SCH ×2 (08:14→21:01)
[2020-12-20 14:00] VITALS: BP 116/65
--- NOTE | 2020-12-20 20:06 | IPNPDOC ---
Text Note Date of Service The patient was seen on 12/20/20. NOTE SUBJECTIVE: Patient is sitting upright in bed eating breakfast. He does not have any acute complaints at this time, his only concern is that he would like to be discharged home. I explained to him that we were working with the discharge planning team trying to figure out a safe location for him to go home. He does not mind the idea of going to assisted living or jail. OBJECTIVE: Constitutional: Awake and alert, in no apparent distress answering all my questions appropriately. ENT: Sclera are clear Respiratory: CTAB. No respiratory distress. No use of accessory muscles. Cardiovascular: Regular heart rate, rhythm, no murmurs, no rubs, no gallops. Gastrointestinal: Abdomen is soft, non distended, non tender Extremities: No lower extremity edema. Left foot deformed, apparently he left his boot at home. Chronic ulcer/wounds as described above. Neurologic: No focal neurological deficit. Mental Status: normal affect ASSESSMENT/PLAN 70-year-old male noncompliant insulin-dependent diabetic presents to the hospital with altered mental status found to be hyperglycemic with blood sugars over 600 admitted to the hospital for further management. # Acute metabolic encephalopathy: This was likely due to his hyperglycemic state. Now resolved. # Dementia: He was seen and evaluated by psychiatry during his last hospitalization, and was found that he lacks the capacity to take decisions for himself. Now he is awake and alert, but often is confused consistent with atypical dementia patient. # HHS with known underlying IDDM: Frequent Accu-Cheks. Appears to be resolved now. Hypoglycemic precautions. Had an episode of hypoglycemia 12/18 during the night. Long-acting Levemir has been discontinued. Continue with Short-acting AC & HS. # History of Covid 19 infection: This appears to be a resolving infection. Pro- calcitonin negative. He has no respiratory complaints and no symptoms of Covid at this time. Repeat COVID test ordered. # Anemia: possible upper GI bleed. Guaiac positive in the ED. Monitor CBC. Transfuse PRN hgb<7. PPI BID. No obvious active bleeding. H/H stable but small drop today, we will continue to hold his anticoagulation at this time. # Type 2 diabetes: As above. Follows with endocrinology Dr. Caldwell. Patient is noncompliant with his insulin. with neuropathy and nephropathy # history of alcohol abuse: Patient denies drinking currently but chart review reveals a history of alcohol abuse. Continue CIWA protocol. Hydroxyzine ordered, and should be used preferentially if having anxiety/agitation and does not qualify per CIWA protocol. Nortriptyline QHS PRN if having issues with sleeping. # CAD: Aspirin and statin # Diabetic foot ulcers:s/p 2nd toe partial amputation by Dr. Sherman. Fu with podiatry OP. Continue Wound care to chronic ulcers on the bilateral heels, recommend that he wear heel floats while in bed. # Paroxysmal A. fib: anticoagulated with Pradaxa at home, but will hold at this time due to anemia & concerns for active bleeding. Rate controlled with BB. # CKD 2: Follows with nephrology Dr. Mendez. Avoid nephrotoxins. # Hypertension: Continue home meds. Monitor and titrate # COPD: Not in exacerbation. Continue home inhalers. # GERD: Continue home medication # Gout: continue home medication # DVT prophylaxis: Pradaxa will be on hold due to possible GI bleed. SCDs only. Disposition: Likely will need placement, PFS is on board VS,Rubens, I+O VS, Rubens, I+O Laboratory Tests 12/20/20 05:20 Vital Signs Date Time Temp Pulse Resp B/P (MAP) Pulse Ox O2 Delivery O2 Flow Rate FiO2 12/20/20 14:00 97.9 88 17 116/65 (82) 96 Room Air I&O- Last 24 Hours up to 6 AM 12/20/20 06:00 Intake Total 1616 ml Output Total 1125 ml Balance 491 ml MARYAN QIU DO Dec 20, 2020 20:06
[2020-12-20 22:00] VITALS: BP 101/55
[2020-12-21 05:43] LABS: HEMATOCRIT 29.2 % (42.0-52.0); HEMOGLOBIN 8.9 g/dl (13.5-17.5); MEAN CORPUSCULAR HEMOGLOBIN 23.5 pg (27.0-33.0); MEAN CORPUSCULAR HGB CONC 30.5 g/dl (32.0-36.5); MEAN CORPUSCULAR VOLUME 77.2 fl (80.0-96.0); PLATELET COUNT, AUTOMATED 263 10^3/uL (150-450); RED BLOOD COUNT 3.78 10^6/uL (4.30-6.10); WHITE BLOOD COUNT 6.3 10^3/uL (4.0-10.0)
[2020-12-21 06:00] VITALS: BP 130/78
[2020-12-21 06:16] LABS: ALBUMIN 2.4 GM/DL (3.2-5.2); BLOOD UREA NITROGEN 25 MG/DL (7-18); CALCIUM LEVEL 8.5 MG/DL (8.8-10.2); CARBON DIOXIDE LEVEL 27 MEQ/L (21-32); CHLORIDE LEVEL 104 MEQ/L (98-107); CREATININE FOR GFR 1.03 MG/DL (0.70-1.30); GLOMERULAR FILTRATION RATE > 60.0 (>42); GLUCOSE, FASTING 417 MG/DL (70-100); PHOSPHORUS LEVEL 2.9 MG/DL (2.5-4.9); POTASSIUM SERUM 4.9 MEQ/L (3.5-5.1); SODIUM LEVEL 136 MEQ/L (136-145)
[2020-12-21] MEDS: HumaLOG INSULIN (NovoLOG) PER UNIT SC SCH ×4 (07:24→20:21)
[2020-12-21] MEDS: SYMBICORT 80/4.5MCG INHALER 6GM INH SCH ×2 (07:52→20:06)
[2020-12-21] MEDS: buPROPion **XL** TABLET 150MG (WELLBUTRIN XL) PO SCH (08:33)
[2020-12-21] MEDS: FAMOTIDINE 20 MG TAB PO SCH (08:33)
[2020-12-21] MEDS: PANTOPRAZOLE 40MG VIAL (C9113 PER 1) IV SCH ×2 (08:33→20:20)
[2020-12-21] MEDS: DOCUSATE SODIUM 100MG CAPSULE PO SCH ×2 (08:33→20:19)
[2020-12-21] MEDS: hydrOXYzine 50 MG TAB PO PRN ×2 (08:34→15:15)
[2020-12-21] MEDS: METOPROLOL SUCC (TopROL XL) 50MG **XL** TAB PO SCH ×2 (08:34→20:19)
[2020-12-21] MEDS: PRAVASTATIN 20 MG TAB PO SCH (08:34)
[2020-12-21] MEDS: ASPIRIN 81 MG ENTERIC TAB PO SCH (08:34)
[2020-12-21] MEDS: FOLIC ACID 1 MG TAB PO SCH (08:34)
[2020-12-21] MEDS: FLUoxetine 20 MG CAP PO SCH (08:34)
[2020-12-21] MEDS: MULTIVITAMINS/MINERALS THERAP 1 TAB PO SCH (08:35)
[2020-12-21] MEDS: allopurinoL 100 MG TAB PO SCH (08:35)
--- NOTE | 2020-12-21 10:26 | IPN ---
PROGRESS NOTE DATE: 12/21/2020 SUBJECTIVE: Eran is [facility]. He apparently is COVID positive from 12/20/2020 after testing four negatives over the last three months. It looks like he was actually in [facility] and for some reason was discharged home which is not a safe situation. The patient has no ability to take care of himself at home due to various psychiatric illnesses and dementia so he got readmitted here. His blood sugars are labile which is his pattern, he is becoming quite hyperglycemic now without having his basal insulin. Denies chest pain, shortness of breath, polyuria or polydipsia. As usual, he wants to go home. PHYSICAL EXAMINATION: VITAL SIGNS: Blood pressure 130/78, afebrile. Vital signs are stable. GENERAL APPEARANCE: Alert, conversant, in no distress. LUNGS: Clear. HEART: Regular rate and rhythm. ABDOMEN: Soft, nontender. EXTREMITIES: Trace peripheral edema. Normal strength in the arms and legs. LABORATORY DATA: Sodium 136, potassium 4.9, BUN 25, BUN 1.0, glucose 417, white count 6.3, hemoglobin 8.9, platelets 263,000. COVID was positive yesterday. IMPRESSION: 1. Recent COVID infection, seems to be subacute at this point. Chest x-ray revealed a viral appearing pneumonia. He is convalescing without the need for supplemental oxygen at this point. 2. Diabetes, he acts like a Type 1 diabetic due to loss of pancreatic function. He is followed by Dr. Deborah Caldwell from Endocrinology although I do not think she has seen him in quite a while. He has compliance problems related to his dementia and mental health problems. He has ___ and neuropathy. I will restart low dose basal insulin. 3. History of alcohol abuse, he drinks heavily when he is home. 4. Paroxysmal atrial fibrillation, he is on Pradaxa and his rate is controlled. 5. Hypertension, blood pressure is under good control on current regimen. 6. Disposition: This patient should not be discharged home. He requires 24/7 assistance and a discharge plan is not a safe plan.
[2020-12-21 14:00] VITALS: BP 123/73
[2020-12-21] MEDS ORDERED: LEVEMIR (INSULIN DETEMIR) 1 UNITS/0.01ML SC SCH (21:00)
[2020-12-21 22:00] VITALS: BP 122/64
[2020-12-22 06:00] VITALS: BP 136/79
[2020-12-22 06:33] LABS: HEMATOCRIT 30.1 % (42.0-52.0); HEMOGLOBIN 9.2 g/dl (13.5-17.5); MEAN CORPUSCULAR HEMOGLOBIN 23.9 pg (27.0-33.0); MEAN CORPUSCULAR HGB CONC 30.6 g/dl (32.0-36.5); MEAN CORPUSCULAR VOLUME 78.2 fl (80.0-96.0); PLATELET COUNT, AUTOMATED 304 10^3/uL (150-450); RED BLOOD COUNT 3.85 10^6/uL (4.30-6.10); WHITE BLOOD COUNT 7.9 10^3/uL (4.0-10.0)
[2020-12-22 06:51] LABS: ALBUMIN 2.7 GM/DL (3.2-5.2); BLOOD UREA NITROGEN 22 MG/DL (7-18); CALCIUM LEVEL 8.9 MG/DL (8.8-10.2); CARBON DIOXIDE LEVEL 30 MEQ/L (21-32); CHLORIDE LEVEL 102 MEQ/L (98-107); CREATININE FOR GFR 0.83 MG/DL (0.70-1.30); GLOMERULAR FILTRATION RATE > 60.0 (>42); GLUCOSE, FASTING 181 MG/DL (70-100); PHOSPHORUS LEVEL 3.1 MG/DL (2.5-4.9); POTASSIUM SERUM 4.4 MEQ/L (3.5-5.1); SODIUM LEVEL 138 MEQ/L (136-145)
[2020-12-22] MEDS: SYMBICORT 80/4.5MCG INHALER 6GM INH SCH ×2 (07:07→20:52)
[2020-12-22] MEDS: PRAVASTATIN 20 MG TAB PO SCH (09:09)
[2020-12-22] MEDS: hydrOXYzine 50 MG TAB PO PRN (09:09)
[2020-12-22] MEDS: buPROPion **XL** TABLET 150MG (WELLBUTRIN XL) PO SCH (09:09)
[2020-12-22] MEDS: allopurinoL 100 MG TAB PO SCH (09:09)
[2020-12-22] MEDS: FLUoxetine 20 MG CAP PO SCH (09:09)
[2020-12-22] MEDS: MULTIVITAMINS/MINERALS THERAP 1 TAB PO SCH (09:09)
[2020-12-22] MEDS: DOCUSATE SODIUM 100MG CAPSULE PO SCH ×2 (09:09→21:09)
[2020-12-22] MEDS: HumaLOG INSULIN (NovoLOG) PER UNIT SC SCH ×4 (09:09→21:10)
[2020-12-22] MEDS: FAMOTIDINE 20 MG TAB PO SCH (09:10)
[2020-12-22] MEDS: ASPIRIN 81 MG ENTERIC TAB PO SCH (09:10)
[2020-12-22] MEDS: FOLIC ACID 1 MG TAB PO SCH (09:10)
[2020-12-22] MEDS: METOPROLOL SUCC (TopROL XL) 50MG **XL** TAB PO SCH ×2 (09:12→21:09)
--- NOTE | 2020-12-22 09:30 | IPN ---
PROGRESS NOTE DATE: 12/22/2020 SUBJECTIVE: Eran is seen on [facility], same as yesterday. No chest pain. No shortness of breath or cough. Has a subacute COVID infection, viral appearing pneumonia on a chest x-ray, essentially asymptomatic. OBJECTIVE: VITAL SIGNS: Afebrile. Vital signs are stable. Saturation is 98% on room air. GENERAL APPEARANCE: He is happily eating breakfast which he declared was "absolutely delicious." LUNGS: Clear. HEART: Regular rate and rhythm. ABDOMEN: Soft, nontender. No peripheral edema. EXTREMITIES: Normal strength in the arms and legs. LABORATORY DATA: CBC and CMP unremarkable. Blood sugars are trending down. IMPRESSION: 1. COVID infection, essentially asymptomatic. 2. Diabetes, quite brittle, prone to hypoglycemia. Will increase his Detemir dose slowly going from 10 to 15 units a day. He acts as a Type 1 diabetic and is sporadically followed by Endocrinology/Dr. Deborah Caldwell. Patient is not compliant with follow-up visits. 3. History of depression and dementia. Continue his current medicines. 4. Hypertension, blood pressure is well-controlled. 5. Hyperlipidemia, continue pravastatin. 6. Disposition: Patient meets medically supervised setting upon discharge, should not be discharged home.
[2020-12-22] MEDS: PANTOPRAZOLE 40MG TAB (PROTONIX) PO SCH (13:11)
[2020-12-22 14:00] VITALS: BP 135/76
[2020-12-22] MEDS: LEVEMIR (INSULIN DETEMIR) 1 UNITS/0.01ML SC SCH (21:10)
[2020-12-22 22:00] VITALS: BP 130/72
[2020-12-23 05:55] LABS: HEMOGLOBIN 9.2 g/dl (13.5-17.5); MEAN CORPUSCULAR HEMOGLOBIN 23.9 pg (27.0-33.0); MEAN CORPUSCULAR HGB CONC 30.7 g/dl (32.0-36.5); MEAN CORPUSCULAR VOLUME 77.9 fl (80.0-96.0); PLATELET COUNT, AUTOMATED 278 10^3/uL (150-450); RED BLOOD COUNT 3.85 10^6/uL (4.30-6.10); WHITE BLOOD COUNT 6.5 10^3/uL (4.0-10.0)
[2020-12-23 06:00] VITALS: BP 128/76
[2020-12-23 06:18] LABS: ALBUMIN 2.6 GM/DL (3.2-5.2); BLOOD UREA NITROGEN 21 MG/DL (7-18); CALCIUM LEVEL 8.4 MG/DL (8.8-10.2); CARBON DIOXIDE LEVEL 31 MEQ/L (21-32); CHLORIDE LEVEL 104 MEQ/L (98-107); GLOMERULAR FILTRATION RATE > 60.0 (>42); GLUCOSE, FASTING 264 MG/DL (70-100); PHOSPHORUS LEVEL 3.7 MG/DL (2.5-4.9); POTASSIUM SERUM 4.2 MEQ/L (3.5-5.1); SODIUM LEVEL 139 MEQ/L (136-145)
[2020-12-23] MEDS: SYMBICORT 80/4.5MCG INHALER 6GM INH SCH ×2 (07:08→20:17)
[2020-12-23] MEDS: FLUoxetine 20 MG CAP PO SCH (09:24)
[2020-12-23] MEDS: DOCUSATE SODIUM 100MG CAPSULE PO SCH ×2 (09:24→21:11)
[2020-12-23] MEDS: MULTIVITAMINS/MINERALS THERAP 1 TAB PO SCH (09:24)
[2020-12-23] MEDS: buPROPion **XL** TABLET 150MG (WELLBUTRIN XL) PO SCH (09:24)
[2020-12-23] MEDS: PRAVASTATIN 20 MG TAB PO SCH (09:24)
[2020-12-23] MEDS: FOLIC ACID 1 MG TAB PO SCH (09:27)
[2020-12-23] MEDS: FAMOTIDINE 20 MG TAB PO SCH (09:28)
[2020-12-23] MEDS: ASPIRIN 81 MG ENTERIC TAB PO SCH (09:28)
[2020-12-23] MEDS: METOPROLOL SUCC (TopROL XL) 50MG **XL** TAB PO SCH ×2 (09:28→21:11)
[2020-12-23] MEDS: PANTOPRAZOLE 40MG TAB (PROTONIX) PO SCH (09:28)
[2020-12-23] MEDS: allopurinoL 100 MG TAB PO SCH (09:28)
[2020-12-23] MEDS: HumaLOG INSULIN (NovoLOG) PER UNIT SC SCH ×4 (09:29→21:11)
--- NOTE | 2020-12-23 10:17 | DSES ---
DISCHARGE SUMMARY DATE OF ADMISSION: 12/16/2020 DATE OF DISCHARGE: / / PRINCIPAL DIAGNOSIS: Generalized weakness secondary to recent COVID infection. SECONDARY DIAGNOSES: 1. Diabetes type 1 with labile blood sugars. 2. History of alcohol abuse, ongoing. 3. Paroxysmal atrial fibrillation. 4. Hypertensive heart disease. 5. Dementia. HISTORY: Eran Ring was admitted for generalized weakness. He had COVID recently diagnosed on 12/20/2020. It looks like he was in [facility] and was for some reason discharged home. The patient is not safe at home; he could not take care of himself there, so he was admitted here basically for placement. HOSPITAL COURSE: The patient's hospital course has been uncomplicated. He has rested comfortably. His medical conditions have been stable, and he has been enjoying his stay and thinks the food is quite good. PHYSICAL EXAMINATION: VITAL SIGNS: On exam today, his BP is 128/76, pulse of 88, respiratory rate 18, O2 saturation 97% on room air. He is afebrile with temperature 98.4 degrees. HEENT: Unremarkable. LUNGS: Entirely clear. HEART: Regular rate and rhythm with no murmur. ABDOMEN: Soft and nontender with no masses. EXTREMITIES: No peripheral edema. LABORATORY DATA: Blood sugars have been in the 200 to 300 range. Sodium 139, potassium 4.2, BUN 121, creatinine 0.9. Fasting blood sugar this morning was 264. Blood sugars have ranged from 42 to 400. COVID test was positive on 12/20. DISPOSITION: Anticipate discharge to a supervised living arrangement. MEDICATIONS: 1. Detemir insulin 15 units at bedtime. 2. Protonix 40 mg daily. 3. Atarax 50 mg q. four hours p.r.n. for anxiety. 4. Folic acid 1 mg daily. 5. Multivitamin. 6. Sliding scale insulin per protocol. 7. Colace 100 mg b.i.d. 8. Allopurinol 50 mg daily. 9. Aspirin 81 mg daily. 10. Wellbutrin XL 300 mg daily. 11. Pepcid 40 mg daily. 12. Prozac 20 mg daily. 13. Lisinopril 20 mg daily. 14. Toprol-XL 50 mg b.i.d. 15. Pravastatin 20 mg daily. 16. Glucagon as needed. 17. Milk of magnesia as needed. 18. Symbicort 80/4.5 two puffs b.i.d. 19. Tylenol as needed. DIET: He is on a consistent carbohydrate diet. ACTIVITY: As tolerated. PFS is working on placement and hopefully, we will secure that today.
[2020-12-23 14:00] VITALS: BP 101/63
[2020-12-23] MEDS: hydrOXYzine 50 MG TAB PO PRN (17:02)
[2020-12-23] MEDS: LEVEMIR (INSULIN DETEMIR) 1 UNITS/0.01ML SC SCH (21:10)
[2020-12-23 22:00] VITALS: BP 119/69
[2020-12-24] VITALS: BP 119/69
[2020-12-24 05:49] LABS: HEMATOCRIT 30.5 % (42.0-52.0); HEMOGLOBIN 9.3 g/dl (13.5-17.5); MEAN CORPUSCULAR HEMOGLOBIN 23.7 pg (27.0-33.0); MEAN CORPUSCULAR HGB CONC 30.5 g/dl (32.0-36.5); MEAN CORPUSCULAR VOLUME 77.6 fl (80.0-96.0); PLATELET COUNT, AUTOMATED 275 10^3/uL (150-450); RED BLOOD COUNT 3.93 10^6/uL (4.30-6.10); WHITE BLOOD COUNT 7.8 10^3/uL (4.0-10.0)
[2020-12-24 06:00] VITALS: BP 129/76
[2020-12-24 06:09] LABS: ALBUMIN 2.8 GM/DL (3.2-5.2); BLOOD UREA NITROGEN 25 MG/DL (7-18); CALCIUM LEVEL 8.3 MG/DL (8.8-10.2); CARBON DIOXIDE LEVEL 26 MEQ/L (21-32); CHLORIDE LEVEL 107 MEQ/L (98-107); CREATININE FOR GFR 0.91 MG/DL (0.70-1.30); GLOMERULAR FILTRATION RATE > 60.0 (>42); GLUCOSE, FASTING 94 MG/DL (70-100); PHOSPHORUS LEVEL 3.2 MG/DL (2.5-4.9); POTASSIUM SERUM 5.5 MEQ/L (3.5-5.1); SODIUM LEVEL 139 MEQ/L (136-145)
[2020-12-24] MEDS: SYMBICORT 80/4.5MCG INHALER 6GM INH SCH (07:15)
[2020-12-24] MEDS: HumaLOG INSULIN (NovoLOG) PER UNIT SC SCH ×2 (07:30→12:00)
[2020-12-24] MEDS: allopurinoL 100 MG TAB PO SCH (08:37)
[2020-12-24] MEDS: FAMOTIDINE 20 MG TAB PO SCH (08:37)
[2020-12-24] MEDS: FOLIC ACID 1 MG TAB PO SCH (08:37)
[2020-12-24] MEDS: DOCUSATE SODIUM 100MG CAPSULE PO SCH (08:37)
[2020-12-24] MEDS: buPROPion **XL** TABLET 150MG (WELLBUTRIN XL) PO SCH (08:38)
[2020-12-24] MEDS: PRAVASTATIN 20 MG TAB PO SCH (08:38)
[2020-12-24] MEDS: FLUoxetine 20 MG CAP PO SCH (08:38)
[2020-12-24] MEDS: PANTOPRAZOLE 40MG TAB (PROTONIX) PO SCH (08:38)
[2020-12-24] MEDS: MULTIVITAMINS/MINERALS THERAP 1 TAB PO SCH (08:38)
[2020-12-24] MEDS: ASPIRIN 81 MG ENTERIC TAB PO SCH (08:38)
[2020-12-24 08:41] VITALS: BP 115/69
[2020-12-24] MEDS: METOPROLOL SUCC (TopROL XL) 50MG **XL** TAB PO SCH (08:41)
--- NOTE | 2020-12-24 09:21 | IPN ---
PROGRESS NOTE DATE: 12/24/2020 SUBJECTIVE: Eran was seen on 12/24/2020, with no change in his clinical status. Alert and conversant. OBJECTIVE: Physical exam was stable and unchanged. LABORATORY DATA: His labs today show a white count of 7.8, hemoglobin 9.3, platelets 270,000. Sodium 139, potassium 5.5, BUN 25, creatinine 0.9, glucose 94. Blood sugars remain labile between 400 and 100. I was told in care rounds to call Kasey at [facility] at [phone], for a [id number] discussion. I did call that number and there was no answer. I left my cell phone number for a return call. I anticipate that we will be discharging Eran to [facility] today.
[2020-12-24] MEDS ORDERED: HYDR50TA70 PO (09:31)
[2020-12-24] MEDS ORDERED: INSUDET SC (09:31)
== END 2020-12-24 14:23 | DRG 637 ==
LOC: M ED 02:59 → M ED INP 08:38 → M 4MAIN 09:45 → M MSPAV 12-17 04:57
PROVIDERS: ADMIT Family Medicine; ATTEND Family Medicine
PROC: 30233N1 Transfusion of Nonautologous Red Blood Cells into Peripheral Vein, Percutaneous Approach (ICD-10-PCS; principal; 2020-12-17)
DX: E10.65 Type 1 diabetes mellitus with hyperglycemia (principal); G93.41 Metabolic encephalopathy; J12.9 Viral pneumonia, unspecified; K92.2 Gastrointestinal hemorrhage, unspecified; J44.0 Chronic obstructive pulmonary disease with (acute) lower respiratory infection; I48.0 Paroxysmal atrial fibrillation; N18.2 Chronic kidney disease, stage 2 (mild); D64.9 Anemia, unspecified; E10.621 Type 1 diabetes mellitus with foot ulcer; E10.649 Type 1 diabetes mellitus with hypoglycemia without coma; F10.10 Alcohol abuse, uncomplicated; Z79.4 Long term (current) use of insulin; Z79.899 Other long term (current) drug therapy; Z79.82 Long term (current) use of aspirin; Z91.19 Patient's noncompliance with other medical treatment and regimen; I12.9 Hypertensive chronic kidney disease with stage 1 through stage 4 chronic kidney disease, or unspecified chronic kidney disease; K21.9 Gastro-esophageal reflux disease without esophagitis; F41.9 Anxiety disorder, unspecified; F32.9 Major depressive disorder, single episode, unspecified; I25.10 Atherosclerotic heart disease of native coronary artery without angina pectoris; E10.40 Type 1 diabetes mellitus with diabetic neuropathy, unspecified; M10.9 Gout, unspecified; Z87.891 Personal history of nicotine dependence; E10.21 Type 1 diabetes mellitus with diabetic nephropathy; E78.5 Hyperlipidemia, unspecified; Z96.641 Presence of right artificial hip joint; Z85.828 Personal history of other malignant neoplasm of skin; M51.36 Other intervertebral disc degeneration, lumbar region; M50.30 Other cervical disc degeneration, unspecified cervical region; L97.529 Non-pressure chronic ulcer of other part of left foot with unspecified severity; L97.519 Non-pressure chronic ulcer of other part of right foot with unspecified severity

== ENCOUNTER 2021-03-17 00:03 | Inpatient (IN) | payer MEDICARE, OTHER ==
[~2021-03-17] VITALS: Ht 182.9 cm; Wt 66.9 kg
[~2021-03-17 00:03] MED LIST changes: +DEXA6TAB PO; +GABA-283 PO; -GABA-845 PO; +HYDR50TA70 PO; +INSUDET SC
[2021-03-18] VITALS (17 sets, daily range): BP systolic 100–147; BP diastolic 54–86; O2SAT 91–99
[2021-03-18] MEDS ORDERED: MAALOX 30 ML SUSP *UDC PO PRN (00:55)
[2021-03-18] MEDS ORDERED: MOM 30ML SUSPENSION UDC PO PRN (00:55)
[2021-03-18] MEDS ORDERED: cefTRIAXone SOD 1 GM in D5W MINI-BAG PLUS 50 ML IV SCH (01:00)
[2021-03-18] MEDS ORDERED: GLUCAGON INJ 1MG VIAL SC PRN (01:10)
[2021-03-18] MEDS ORDERED: GLUCOSE 4GM CHEW TABLET PO PRN (01:10)
[2021-03-18] MEDS ORDERED: ALPRAZolam 0.5 MG TAB PO ONE (01:10)
[2021-03-18 01:27] LABS: HEMATOCRIT 22.7 % (42.0-52.0); HEMOGLOBIN 7.1 g/dl (13.5-17.5); MEAN CORPUSCULAR HEMOGLOBIN 22.8 pg (27.0-33.0); MEAN CORPUSCULAR HGB CONC 31.3 g/dl (32.0-36.5); PLATELET COUNT, AUTOMATED 453 10^3/uL (150-450); RED BLOOD COUNT 3.11 10^6/uL (4.30-6.10); WHITE BLOOD COUNT 18.7 10^3/uL (4.0-10.0)
[2021-03-18] MEDS: NS 1,000 ML IV SCH ×2 (01:32→14:15)
[2021-03-18 01:38] LABS: INR 1.63; PROTHROMBIN TIME 19.7 SECONDS (12.5-14.3)
[2021-03-18 01:39] LABS: PARTIAL THROMBOPLASTIN TIME 62.6 SECONDS (24.2-38.5)
[2021-03-18] MEDS ORDERED: THIA100T7 PO (01:52)
[2021-03-18] MEDS ORDERED: [UNRECOGNIZED DRUG - OTHER] EXT (01:52)
[2021-03-18] MEDS ORDERED: ZINC220CA PO (01:52)
[2021-03-18] MEDS ORDERED: FOLI1TAB11 PO (01:57)
[2021-03-18] MEDS ORDERED: TOUJ1.2I SC (01:57)
[2021-03-18] MEDS ORDERED: DEPA1TAB PO (01:57)
[2021-03-18 02:03] LABS: ALBUMIN 2.9 GM/DL (3.2-5.2); ALT/SGPT 15 U/L (12-78); BILIRUBIN,TOTAL 0.1 MG/DL (0.2-1.0); BLOOD UREA NITROGEN 56 MG/DL (7-18); CALCIUM LEVEL 9.1 MG/DL (8.8-10.2); CARBON DIOXIDE LEVEL 19 MEQ/L (21-32); CHLORIDE LEVEL 108 MEQ/L (98-107); CREATININE FOR GFR 1.26 MG/DL (0.70-1.30); GLOMERULAR FILTRATION RATE > 60.0 (>42); GLUCOSE, FASTING 131 MG/DL (70-100); POTASSIUM SERUM 5.6 MEQ/L (3.5-5.1); SODIUM LEVEL 137 MEQ/L (136-145); TOTAL PROTEIN 6.8 GM/DL (6.4-8.2)
[2021-03-18] MEDS: HumaLOG INSULIN (NovoLOG) PER UNIT SC SCH ×4 (02:03→17:29)
[2021-03-18] MEDS ORDERED: HYDR50CA2 PO (02:08)
[2021-03-18] MEDS ORDERED: BACT800T5 PO (02:08)
[2021-03-18] MEDS ORDERED: QUET25TA3 PO (02:08)
[2021-03-18] MEDS ORDERED: ACET-897 PO (02:08)
[2021-03-18] MEDS ORDERED: LORA1TAB4 PO (02:08)
[2021-03-18] MEDS ORDERED: KAPS50CA PO (02:08)
[2021-03-18] MEDS ORDERED: PRAV20TA2 PO (02:08)
--- NOTE | 2021-03-18 02:37 | HPEPDOC ---
[facility] Medical History & Physical Date of Admission March 18, 2021 Date of Service: March 18, 2021 Attending Physician: JONO LUGO MD History and Physical CHIEF COMPLAINT: Syncope, fall. HISTORY OF PRESENT ILLNESS: Patient is a 70-year-old male resident of alf in [place] with a past medical history congestive heart failure unspecified, hypertension, chronic obstructive pulmonary disease(on 2 L home oxygen), history of Covid(resolved), asthma unspecified, atrial fibrillation, cancer unspecified, cardiomyopathy unspecified, dementia, insulin-dependent diabetes mellitus with complications(neuropathy), GERD, gout, squamous cell carcinoma was transferred from [place] as a direct admit to PCU for an episode of syncope resulting in a fall landing on patient's head and left hip. The EMS reported that the patient was unresponsive for a few minutes after which he came to with no episode of postictal confusion. At [place] patient was found to have anemia, leukocytosis and a positive stool guaiac. Patient received IV fluids and 2 large bore IV cannulas were placed for IV access and transferred for suspicion of sepsis/TIA. Patient denies any vision changes, facial drooping, slurring of speech, fevers, chills, trauma, chest pain, orthopnea, PND, seizures, palpitations. Patient was transferred to [facility], at this point patient is alert oriented to time place person but extremely tearful not complaining of anything acute. PAST MEDICAL HISTORY: 1. Hypertension. 2. COPD. 3. Atrial fibrillation 4. Congestive heart failure unspecified 5. Insulin-dependent diabetes mellitus with neuropathy. 6. GERD 7. Gout 8. Asthma unspecified. 9. Squamous cell cancer 10 history of Covid. 11. Cardiomyopathy unspecified 12.CKD stage II sendary to Diabetic Nephropathy PAST SURGICAL HISTORY: 1. Hernia repair. 2. Total hip replacement. SOCIAL HISTORY: Marital status: . Resides in: [facility] in [place] since the last 9 months due to not being able to afford home health care Children: 2 kids well settled. 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 Reports smoking 1 pack per week for 6-7 years. ETOH: Former heavy drinker. Currently occasional drinker Illicit drug use: Has tried LSD 5-6 times. Otherwise denies Tattoos done unprofessionally: None. IV drug use: Denies Other relevant social factors: Patient lives in a alf away from family seems depressed FAMILY HISTORY: Unremarkable Hereditary Diseases: None Unexpected deaths due to medical reasons: No ALLERGIES: Please see below. REVIEW OF SYSTEMS: CONSTITUTIONAL: Reports unintentional weight loss of 30 pounds in the last 9 months. Denies loss of appetite, fever, chills, night sweats. HEENT: Denies sore throat, runny nose. CARDIOVASCULAR: Denies chest pain, PND, orthopnea. RESPIRATORY: Denies any worsening shortness of breath other than his baseline, reports chronic productive cough. GASTROINTESTINAL: Denies nausea, vomiting, diarrhea, constipation, visible blood in stools. GENITOURINARY: Denies dysuria, polyuria. SKIN: Denies any excessive bleeding or bruising or rash. MUSCULOSKELETAL: Denies excessive joint pains. Reports occasional neck pain. NEUROLOGICAL: Reports severe numbness and paresthesias along the bilateral lower extremities. PSYCHIATRIC: Reports depression and anxiety. HEMATOLOGIC/LYMPHATIC: Denies excessive bleeding bruising or lumps or bumps. HOME MEDICATIONS: Please see below. PHYSICAL EXAMINATION: VITAL SIGNS: Temperature , pulse , respiratory rate , blood pressure , pulse oximetry % on room air. GENERAL APPEARANCE: Patient is overly anxious, tearful, yawning repeatedly, breaking out into bouts of crying spells. HEENT: Atraumatic, normocephalic, moist mucous membranes, PERRLA, EOMI, conjunctival pallor positive, no scleral icterus, no tongue deviation, no uvular deviation, no facial palsy. CARDIOVASCULAR: Rate normal, rhythm is regular. S1 and S2 heard. No murmurs appreciated. LUNGS: Clear to auscultation bilaterally, no wheezing heard, slight basal bilateral crackles. ABDOMEN: Nontender, nondistended, no organomegaly, hyperactive bowel sounds. MUSCULOSKELETAL: No joint swelling or deformity. Normal range of motion. EXTREMITIES: Good volume pulse, grade 1 pedal edema. Good capillary refill. Diabetic wounds on the plantar surface of left foot and heel. NEUROLOGICAL: 5 over 5 motor strength. Diminished sensations due to severe neuropathy. Walks using a walker resulting in frequent falls shifted to a wheel chair. PSYCHIATRIC: Severely depressed and anxious. Breaking into spells of crying. LABORATORY DATA: See below. IMAGING: See below MICROBIOLOGY: Please see below. ASSESSMENT AND PLAN: Patient is a 70-year-old male resident of alf in [place] with a past medical history congestive heart failure unspecified, hypertension, chronic obstructive pulmonary disease(on 2 L home oxygen), history of Covid(resolved), asthma unspecified, atrial fibrillation, cancer unspecified, cardiomyopathy unspecified, dementia, insulin-dependent diabetes mellitus with complications(neuropathy), GERD, gout, squamous cell carcinoma was transferred from [place] as a direct admit to PCU for an episode of syncope resulting in a fall landing on patient's head and left hip. The EMS reported that the patient was unresponsive for a few minutes after which he came to with no episode of postictal confusion. At [place] patient was found to have anemia, leukocytosis and a positive stool guaiac. Patient received IV fluids and 2 large bore IV cannulas were placed for IV access and transferred for suspicion of sepsis/TIA. #Syncope secondary to cardiac causes(A. fib with RVR/worsening of congestive heart failure) versus neurogenic causes(TIA) versus infectious causes unspecified souce- foot wound, UTI(SIRS): *Features and favor of SIRS: Leukocytosis, syncope. *Features that favor TIA: Syncope, history of recurrent falls. *Features that favor cardiogenic causes: History of A. fib with RVR and congestive heart failure. -Patient put on continuous telemetry and monitoring of vitals. Repeated neuro checks every 4 hours. Continuous pulse oximetry with oxygen therapy orders. Strict I's and O's. CT head without contrast and a CT cervical spine ordered to look for any bleeding or fracture due to fall. -X-ray bilateral knees ordered to rule out any fractures. General labs, EKG, echo orderedpending. Patient was started on a low flow IV fluids . -Patient was put on empiric therapy with IV Rocephin. -ST evaluation ordered. Fall precautions/aspiration precautions. #Microcytic anemia secondary to iron deficiency/chronic blood loss most likely GI: *Hemoglobin7.1, conjunctival pallor plus, Cachectic, stool guaiac positive for blood. Ordered 2 units of packed red blood cells. -Consent taken and type and screen ordered. -Trending H&H's. -Ordered a full iron panel including peripheral smear and reticulocyte count. -Holding anticoagulation and antiplatelet medication. -Day team may consider Gastroenterology consultation-recommendations are appreciated. # Diabetic wound : -Patient sees Dr. Woodard for diabetic foot wound. It seems the patient was on continuous therapy of Bactrim at home. -I will continue the patient's antibiotic. -X-ray of bilateral feet ordered to rule out any osteomyelitis. May need wound care , possible outpatient follow-up with Dr. Woodard #Hyperkalemia: -Held lisinopril. -Pt is on IV fluids. -One dose of Calcium gluconate IV was administered. #Hypertension: Continue home medications. #Insulin-dependent diabetes mellitus: -Patient put on nothing by mouth diet because of a suspected TIA and because of tests ordered. -FS BS every 6 hours with a sliding scale insulin as per every 6 protocol. -Diet will be advanced to consistent carb diet after speech and swallow clear him. #COPD: Patient is on 2 L oxygen via nasal cannula. Continue home medications. Ordered duo nebS -Ordered a mucolytic for productive sputum. -Continuous pulse oximetry monitoring with oxygen therapy orders maintaining saturations of 88-92%. #Congestive heart failure? Unspecified: -Ordered a 2-D echo. -Continue home medications. #GERD: -IV Protonix started for GI prophylaxis due to a suspected GI bleed. -As needed Mylanta ordered for reflux. #Gout: -Continue home medications. #Asthma unspecified: -Continue home inhalers. -Continuous pulse ox DVT prophylaxis: Teds and sequentials. Holding all anticoagulations and antiplatelets due to possibility of GI bleed. Laboratory Data Labs 24H Laboratory Tests 2 03/18/21 01:16: Nucleated Red Blood Cells % (auto) 0.0, Prothrombin Time 19.7H, Prothromb Time International Ratio 1.63, Activated Partial Thromboplast Time 62.6H CBC/BMP Laboratory Tests 03/18/21 01:16 Microbiology Microbiology 03/18/21 Blood Culture, Received Pending Home Medications Scheduled Allopurinol (Allopurinol) 100 Mg Tab, 50 MG PO DAILY Aspirin (Aspirin EC) 81 Mg Tablet., 81 MG PO DAILY Budesonide/Formoterol (Symbicort 80-4.5 Mcg Inhaler) 60 Puff/Inhaler Aers, 2 PUFF INH BID Bupropion HCl (Bupropion Xl) 300 Mg Tab.er.24h, 300 MG PO DAILY Cholecalciferol (Vitamin D3) (Vitamin D3) 1,000 Unit Tablet, 1,000 UNITS PO DAILY Cyanocobalamin (Vitamin B-12) (Vitamin B-12) 1,000 Mcg Tab, 1,000 MCG PO DAILY Dabigatran Etexilate Mesylate (Pradaxa) 150 Mg Capsule, 150 MG PO BID Divalproex Sodium (Depakote) 125 Mg Tablet.dr, 125 MG PO BID Esomeprazole Magnesium (Esomeprazole Magnesium) 40 Mg Capsule.dr, 40 MG PO DAILY Fluoxetine Hcl (Fluoxetine HCl) 20 Mg Cap, 20 MG PO DAILY Folic Acid (Folic Acid) 1 Mg Tablet, 1 MG PO DAILY Insulin Glargine,Hum.rec.anlog (Toujeo Solostar) 300 Unit/1 Ml Insuln.pen, 30 UNIT SC DAILY Insulin Human Lispro (Humalog) 1 Units/0.01 Ml Inj, 1 DOSE SC AC PER SLIDING SCALE Lisinopril (Lisinopril) 20 Mg Tab, 20 MG PO DAILY Metoprolol Succinate (Kapspargo Sprinkle) 50 Mg Cap.spr.24, 50 MG PO DAILY HOLD IF SBP<100 OR HR<60 Pravastatin Sodium (Pravastatin Sodium) 20 Mg Tablet, 20 MG PO QPM TAKES AT 1700 Quetiapine Fumarate (Quetiapine Fumarate) 25 Mg Tablet, 25 MG PO BID Salicylic Acid (Selsun Blue) 325 Ml Shampoo, 1 DOSE EXT QWEEK SUNDAYS Sulfamethoxazole/Trimethoprim (Bactrim Ds Tablet) 1 Each Tablet, 1 TAB PO BID LAST DOSE WAS SUPPOSE TO BE 03/17 QHS DOSE Thiamine HCl (Thiamine HCl) 100 Mg Tablet, 100 MG PO DAILY Scheduled PRN Acetaminophen (Tylenol Extra Strength) 500 Mg Tablet, 1,000 MG PO Q8H PRN for PAIN OR DISCOMFORT Glucagon,Human Recombinant (Glucagon Emergency Kit) 1 Mg Vial, 1 MG IM ASDIRECTED PRN for LOW BLOOD SUGAR Hydroxyzine Pamoate (Hydroxyzine Pamoate) 50 Mg Capsule, 50 MG PO Q4H PRN for ANXIETY Lorazepam (Lorazepam) 1 Mg Tablet, 1 MG PO Q8H PRN for ANXIETY Allergies Coded Allergies: No Known Allergies (Verified , 10/27/20) A-FIB/CHADSVASC A-FIB History Current/History of A-Fib/PAF?: Yes Current PO Anticoag Therapy: Yes GME ATTESTATION GME ATTESTATION My faculty preceptor for this patient encounter was physically present during the encounter and was fully available. All aspects of the patient interview, examination, medical decision making process, and medical care plan development were reviewed and approved by the faculty preceptor. The faculty preceptor is aware and concurs with the plan as stated in the body of this note and will attest to such by his/her cosignature. Rylee Leiva MD March 18, 2021 01:41
[2021-03-18] MEDS ORDERED: LORazepam 1 MG TAB PO PRN (02:40)
[2021-03-18] MEDS ORDERED: CALCIUM GLUCONATE 1,000 MG in D5W MINI-BAG PLUS 100 ML IV ONE (03:15)
[2021-03-18 04:00] LABS: CK-MB VALUE MASS 4.4 NG/ML (<3.6); CPK CREATINE PHOSPHOKINASE 96 U/L (39-308); FERRITIN 29 NG/ML (26-388); IRON (FE) 27 UG/DL (65-175); MB/CK RELATIVE INDEX 4.58 (< OR =4); PERCENT SATURATION 7.2 % (19.7-50.0); TOTAL IRON BINDING CAPACITY 373 UG/DL (250-450); TROPONIN I < 0.02 NG/ML (< 0.10)
[2021-03-18 04:48] LABS: ERYTHROCYTE SEDIMENTATION RATE 51 mm/hr (0-20)
[2021-03-18] MEDS: SUCRALFATE SUSP 1GM/10ML UD PO SCH ×3 (06:00→17:10)
[2021-03-18] MEDS: SYMBICORT 80/4.5MCG INHALER 6GM INH SCH ×2 (07:19→20:02)
[2021-03-18] MEDS ORDERED: HYDROMORPHONE HCL 0.5 MG/ 0.5 ML SYRINGE (J1170 PER 1) IV ONE ×2 (07:25→07:35)
--- NOTE | 2021-03-18 08:17 | REPVR ---
PROCEDURE INFORMATION: Exam: CT Cervical Spine Without Contrast Exam date and time: 03/18/2021 1:44 AM Age: 70 years old Clinical indication: Injury or trauma; Fall; Blunt trauma TECHNIQUE: Imaging protocol: Computed tomography images of the cervical spine without contrast. Radiation optimization: All CT scans at this facility use at least one of these dose optimization techniques: automated exposure control; mA and/or kV adjustment per patient size (includes targeted exams where dose is matched to clinical indication); or iterative reconstruction. COMPARISON: No relevant prior studies available. FINDINGS: Bones/joints: No acute fracture. Normal alignment. Discs/Spinal canal/Neural foramina: There is severe intervertebral disc space loss at C4/5, C5/6 and C6/7. There is multilevel facet hypertrophy. Lungs: Lung apices are normal. Soft tissues: Unremarkable. IMPRESSION: No acute fracture. Electronically signed by: Kira Armas On 03/18/2021 08:16:56 AM
--- NOTE | 2021-03-18 08:21 | REPVR ---
PROCEDURE INFORMATION: Exam: CT Head Without Contrast Exam date and time: 03/18/2021 1:44 AM Age: 70 years old Clinical indication: Injury or trauma; Fall; Blunt trauma (contusions or hematomas) TECHNIQUE: Imaging protocol: Computed tomography of the head without contrast. Radiation optimization: All CT scans at this facility use at least one of these dose optimization techniques: automated exposure control; mA and/or kV adjustment per patient size (includes targeted exams where dose is matched to clinical indication); or iterative reconstruction. COMPARISON: CT Head without contrast 11/08/2020 8:44 PM FINDINGS: Brain: There is no acute intracranial hemorrhage or mass effect. Moderate diffuse volume loss is within the range of normal for patient age. There are small vessel ischemic changes within the periventricular and subcortical white matter, but the normal garcía-white matter delineation is maintained. Cerebral ventricles: Prominence of the ventricular system is commensurate with volume loss. Paranasal sinuses: Visualized sinuses are unremarkable. No fluid levels. Mastoid air cells: Visualized mastoid air cells are well aerated. Bones/joints: There is left orbital floor fixation hardware. Soft tissues: Unremarkable. IMPRESSION: No acute hemorrhage or calvarial fracture. Electronically signed by: Kira Armas On 03/18/2021 08:20:52 AM
--- NOTE | 2021-03-18 08:30 | REP ---
INDICATION: diabetic wound COMPARISON: Left foot dated 08/27/2020 TECHNIQUE: AP, lateral, bilateral oblique views of the right and left foot. FINDINGS: Left foot demonstrates extensive degenerative changes including chronic posttraumatic arthritic changes to the hindfoot with known old calcaneus fracture. Old healed 2nd metatarsal fracture is also identified. Soft tissue swelling and subcutaneous emphysema versus ulceration over the heel cannot be excluded. No obvious acute periosteal reaction identified. Right foot demonstrates partial amputation at the 2nd proximal phalanx as well as old healed fracture of the 2nd metatarsal bone. Extensive degenerative changes are appreciated primarily noted of the 1st toe and MTP/IP joints. Soft tissue swelling and areas of ulceration cannot be excluded. No obvious acute periosteal reaction identified. IMPRESSION: Extensive arthritic changes as described above. Areas of soft tissue swelling with suspected ulceration. No obvious periosteal reaction or acute osseous changes to identify osteomyelitis. <Electronically signed by Kwaku Merida > 03/18/21 [id number]
--- NOTE | 2021-03-18 08:31 | IPN ---
PROGRESS NOTE DATE: 03/18/2021 ADDENDUM: Denies any bright red blood per rectum, melena, or black tarry stools. He says that he has been scoped before. EGD and colonoscopies in the past with no findings. The patient is off Pradaxa, last dose was yesterday morning. He is currently being kept n.p.o. GI Dr. Salcedo has been consulted for evaluation of heme positive stool and symptomatic anemia with hemoglobin of 7. He is currently being transfused two units of RBCs.
--- NOTE | 2021-03-18 08:35 | REP ---
INDICATION: fall. COMPARISON: Comparison right femur radiographs 30 October 2015.. TECHNIQUE: Eight views. Bilateral study. FINDINGS: Four views of the right knee demonstrate old callus formation in the proximal fibular diaphysis consistent with and old fracture. On lateral radiograph this old healed fracture is included in the field of view. There is some vascular calcification. Mild patellar spurring is seen. No right knee fracture is seen. Joint spaces are preserved.. Four views of the left knee demonstrate articular spurring of the patella and moderate to advanced osteoarthritis of the lateral and medial compartments of the knee. There is soft tissue calcification along the course of the medial collateral ligament suggesting previous injury. Lateral compartment spurring is noted. Subcortical cyst formation is present in the lateral tibial plateau and there is lateral compartment joint space narrowing. Fullness in the suprapatellar bursa on the left suggests a small left effusion. There is diffuse osteopenia and vascular calcification is noted. On the lateral radiograph the left knee there is a are os ossific densities and I cannot exclude loose body. This os ossific density appears to be medial. It is not in the expected position of a normal fabella. . IMPRESSION: Moderate osteoarthritis left knee with possible loose bodies and lateral compartment spurring and joint space narrowing. No fracture or other acute bony abnormality.. <Electronically signed by Julian Joseph > 03/18/21 [id number]
[2021-03-18] MEDS: METOPROLOL SUCC (TopROL XL) 50MG **XL** TAB PO SCH (09:00)
[2021-03-18] MEDS: THIAMINE 100 MG TAB PO SCH (09:00)
[2021-03-18] MEDS: VITAMIN D 1,000 INTERNATIONAL UNITS TABLET PO SCH (09:00)
[2021-03-18] MEDS: QUEtiapine FUMARATE 25 MG TAB PO SCH ×2 (09:00→20:31)
[2021-03-18] MEDS ORDERED: LIDOCAINE 5% OINT 30GM TUBE TOP SCH (09:00)
[2021-03-18] MEDS: PANTOPRAZOLE 40MG VIAL (C9113 PER 1) IV SCH ×2 (09:00→20:30)
[2021-03-18] MEDS: BACTRIM 160MG/800MG DS TAB PO SCH ×2 (09:00→20:31)
[2021-03-18] MEDS: FOLIC ACID 1 MG TAB PO SCH (09:00)
--- NOTE | 2021-03-18 09:51 | REP ---
INDICATION: tia ? COMPARISON: None. TECHNIQUE: Otero scale and color Doppler evaluation using linear high frequency transducer Findings: FINDINGS: Two-dimensional otero scale and color images demonstrate moderate amounts of mixed atheromatous plaquing without stenosis or occlusion. Color Doppler interrogation demonstrates arterial wave patterns and velocities with moderate spectral broadening. Normal flow direction is appreciated in the bilateral vertebral arteries. ICA peak systolic velocity: Right 47.0 cm/s; Left 47.2 cm/s ICA diastolic velocity: Right 19.5 cm/s; Left 14.4 cm/s ECA peak systolic velocity: Right 48.9 cm/s; Left 39.3 cm/s CCA peak systolic velocity: Right 81.8 cm/s; Left 96.0 cm/s ICA/CCA ratio: Right 0.57 cm/s; Left 0.49 cm/s IMPRESSION: No hemodynamically significant areas of narrowing or stenosis appreciated. Based on set standards narrowing falls within the less than 50% range. <Electronically signed by Kwaku Merida > 03/18/21 0947
[2021-03-18 11:17] LABS: HEMATOCRIT 29.4 % (42.0-52.0); MEAN CORPUSCULAR HEMOGLOBIN 23.4 pg (27.0-33.0); MEAN CORPUSCULAR HGB CONC 30.6 g/dl (32.0-36.5); MEAN CORPUSCULAR VOLUME 76.6 fl (80.0-96.0); PLATELET COUNT, AUTOMATED 359 10^3/uL (150-450); RED BLOOD COUNT 3.84 10^6/uL (4.30-6.10); WHITE BLOOD COUNT 13.8 10^3/uL (4.0-10.0)
[2021-03-18] MEDS ORDERED: MOM 30ML SUSPENSION UDC PO ONE (11:30)
[2021-03-18] MEDS: ACETAMINOPHEN TAB 650MG DOSE (2X325MG) PO PRN (11:36)
[2021-03-18] MEDS: CYANOCOBALAMIN 500 MCG TAB PO SCH (11:37)
[2021-03-18] MEDS: DIVALPROEX 125 MG TAB PO SCH ×2 (11:37→20:31)
[2021-03-18] MEDS: buPROPion **XL** TABLET 150MG (WELLBUTRIN XL) PO SCH (11:38)
[2021-03-18] MEDS: FLUoxetine 20 MG CAP PO SCH (11:38)
[2021-03-18] MEDS: LIDOCAINE 5% OINT 30GM TUBE TOP SCH (11:39)
[2021-03-18] MEDS ORDERED: POLYETHYLENE GLYCOL (MIRALAX) 238GM BOTTLE PO ONE ×2 (12:00→20:00)
[2021-03-18 12:17] LABS: BLOOD UREA NITROGEN 46 MG/DL (7-18); C REACTIVE PROTEIN QUANTITATIV 1.61 MG/DL (0.00-0.30); CALCIUM LEVEL 8.9 MG/DL (8.8-10.2); CARBON DIOXIDE LEVEL 23 MEQ/L (21-32); CHLORIDE LEVEL 105 MEQ/L (98-107); CPK CREATINE PHOSPHOKINASE 77 U/L (39-308); CREATININE FOR GFR 1.14 MG/DL (0.70-1.30); FREE T4 0.97 NG/DL (0.76-1.46); FREE THYROXINE INDEX 1.5 % (1.4-3.8); GLOMERULAR FILTRATION RATE > 60.0 (>42); GLUCOSE, FASTING 273 MG/DL (70-100); MB/CK RELATIVE INDEX 5.19 (< OR =4); POTASSIUM SERUM 5.2 MEQ/L (3.5-5.1); SODIUM LEVEL 134 MEQ/L (136-145); T UPTAKE 31 % (33-40); THYROXINE (T4) 4.7 UG/DL (4.5-12.0); TOTAL T3 66.6 NG/DL (60.0-181.0); TROPONIN I < 0.02 NG/ML (< 0.10)
--- NOTE | 2021-03-18 15:07 | ECGEPIP ---
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
[2021-03-18] MEDS: PRAVASTATIN 20 MG TAB PO SCH (17:10)
[2021-03-18] MEDS: LEVEMIR (INSULIN DETEMIR) 1 UNITS/0.01ML SC SCH (20:31)
[2021-03-18] MEDS ORDERED: PRAVASTATIN 20 MG TAB PO SCH (21:00)
[2021-03-18] MEDS ORDERED: SIMVASTATIN 20 MG TAB PO SCH (21:00)
[2021-03-19] VITALS (8 sets, daily range): BP systolic 96–152; BP diastolic 56–83
[2021-03-19] MEDS: SUCRALFATE SUSP 1GM/10ML UD PO SCH ×4 (00:07→17:52)
[2021-03-19] MEDS: NS 1,000 ML IV SCH (00:08)
[2021-03-19] MEDS: ACETAMINOPHEN TAB 650MG DOSE (2X325MG) PO PRN (02:58)
[2021-03-19] MEDS ORDERED: BISACODYL 10 MG SUPP PR ONE (03:10)
[2021-03-19 05:22] LABS: BASO % 0.2 % (0.0-1.0); EOS # 0.3 10^3/uL (0.0-0.5); EOS % 2.5 % (0.0-3.0); HEMATOCRIT 25.1 % (42.0-52.0); HEMOGLOBIN 7.9 g/dl (13.5-17.5); LYMPH # 4.1 10^3/uL (1.5-5.0); LYMPH % 33.4 % (24.0-44.0); MEAN CORPUSCULAR HGB CONC 31.5 g/dl (32.0-36.5); MEAN CORPUSCULAR VOLUME 76.3 fl (80.0-96.0); MONO # 0.8 10^3/uL (0.0-0.8); MONO % 6.9 % (2.0-8.0); NEUTROPHILS # 6.9 10^3/uL (1.5-8.5); NEUTROPHILS % 56.4 % (36.0-66.0); PLATELET COUNT, AUTOMATED 275 10^3/uL (150-450); RED BLOOD COUNT 3.29 10^6/uL (4.30-6.10); WHITE BLOOD COUNT 12.2 10^3/uL (4.0-10.0)
[2021-03-19] MEDS: HumaLOG INSULIN (NovoLOG) PER UNIT SC SCH ×5 (06:00→21:00)
[2021-03-19 06:09] LABS: ALBUMIN 2.7 GM/DL (3.2-5.2); ALT/SGPT 12 U/L (12-78); BILIRUBIN,TOTAL 0.2 MG/DL (0.2-1.0); BLOOD UREA NITROGEN 38 MG/DL (7-18); CALCIUM LEVEL 8.8 MG/DL (8.8-10.2); CARBON DIOXIDE LEVEL 22 MEQ/L (21-32); CHLORIDE LEVEL 107 MEQ/L (98-107); CREATININE FOR GFR 0.92 MG/DL (0.70-1.30); GLOMERULAR FILTRATION RATE > 60.0 (>42); GLUCOSE, FASTING 40 MG/DL (70-100); MAGNESIUM LEVEL 1.4 MG/DL (1.8-2.4); SODIUM LEVEL 138 MEQ/L (136-145)
[2021-03-19] MEDS: DEXTROSE 50% 50 ML SYRINGE IV PRN ×2 (06:20→17:58)
[2021-03-19] MEDS ORDERED: D10W/0.45% SODIUM CHLORIDE 1,000 ML IV SCH (06:45)
[2021-03-19] MEDS: SYMBICORT 80/4.5MCG INHALER 6GM INH SCH ×2 (08:34→20:05)
[2021-03-19] MEDS ORDERED: MAGNESIUM CITRATE 300 ML BTL PO ONE (09:00)
[2021-03-19] MEDS: FOLIC ACID 1 MG TAB PO SCH (09:12)
[2021-03-19] MEDS: buPROPion **XL** TABLET 150MG (WELLBUTRIN XL) PO SCH (09:12)
[2021-03-19] MEDS: QUEtiapine FUMARATE 25 MG TAB PO SCH ×2 (09:12→21:26)
[2021-03-19] MEDS: VITAMIN D 1,000 INTERNATIONAL UNITS TABLET PO SCH (09:12)
[2021-03-19] MEDS: DIVALPROEX 125 MG TAB PO SCH ×2 (09:12→21:27)
[2021-03-19] MEDS: MAG SULF 1GM/100ML (MAG RUN) 1 GM in IV 1 EA IV SCH ×2 (09:12→10:30)
[2021-03-19] MEDS: FLUoxetine 20 MG CAP PO SCH (09:12)
[2021-03-19] MEDS: THIAMINE 100 MG TAB PO SCH (09:12)
[2021-03-19] MEDS: PANTOPRAZOLE 40MG VIAL (C9113 PER 1) IV SCH ×2 (09:12→21:26)
[2021-03-19] MEDS: LIDOCAINE 5% OINT 30GM TUBE TOP SCH (09:13)
[2021-03-19] MEDS: METOPROLOL SUCC (TopROL XL) 50MG **XL** TAB PO SCH (09:13)
[2021-03-19] MEDS: BACTRIM 160MG/800MG DS TAB PO SCH ×2 (09:13→21:26)
[2021-03-19] MEDS: CYANOCOBALAMIN 500 MCG TAB PO SCH (09:13)
--- NOTE | 2021-03-19 09:14 | REP ---
INDICATION: sob COMPARISON: 12/16/2020 TECHNIQUE: Portable AP view of the chest FINDINGS: The mediastinum and cardiac silhouette are stable and within normal limits for portable technique. The lung atkins demonstrate chronic appearing changes and the previously noted alveolar infiltrates have resolved. No effusion. No pneumothorax. Skeletal structures demonstrate stable degenerative changes. IMPRESSION: No acute cardiopulmonary process appreciated. <Electronically signed by Kwaku Merida > 03/19/21 0984
[2021-03-19] MEDS ORDERED: SLF 3 ML SYR IV PRN (10:20)
--- NOTE | 2021-03-19 11:09 | IPN ---
PROGRESS NOTE DATE: 03/19/2021 SUBJECTIVE: The patient's hemoglobin remains low at 7.9 this morning. Denies chest pain, pressure, tightness, or shortness of breath. The patient had received IV fluids and has some crackles at bilateral bases. He has not completed his bowel prep this morning, but denies any nausea, vomiting, or abdominal pain. No recurrent episodes of bright red blood per rectum. Per nursing, the patient had brown stool. OBJECTIVE: VITAL SIGNS: Temperature 96.3, pulse 85, respiratory rate 18, blood pressure 152/73, 100% on 2 liters nasal cannula. GENERAL: The patient appears cachectic, bitemporal wasting, and disheveled. NECK: No JVD, thyromegaly, or cervical lymphadenopathy. HEENT: Slight pallor. LUNGS: Diminished with crackles bilaterally at the bases. HEART: S1, S2. Irregularly irregular. ABDOMEN: Soft, nontender, and nondistended with positive bowel sounds. EXTREMITIES: No cyanosis, clubbing, or any pitting edema. LABORATORY DATA: Reviewed and notable for hemoglobin of 7.9 and magnesium of 1.4. ASSESSMENT: This is a 70-year-old male admitted on 03/17/2021, with complaint of symptomatic anemia, syncope, and fall at home with no postictal confusion. The patient was found to be heme-positive stool with hemoglobin of 7 admitted to [facility] for evaluation of his symptomatic anemia and suspected GI bleed. IMPRESSION AND PLAN 1. Suspected gastrointestinal (GI) bleed. 2. Syncope secondary to symptomatic anemia. 3. Symptomatic anemia. 4. Blood loss anemia most likely a GI bleed. 5. Iron deficiency, chronic. 6. Diabetic wound in the foot. 7. Hyperkalemia, resolved. 8. Hypertension, uncontrolled. 9. Uncontrolled type 2 diabetes initially with hyperglycemia now with hypoglycemia. 10. Chronic obstructive pulmonary disease (COPD) on chronic 2 liters of oxygen. 11. Chronic hypoxic respiratory failure on 2 liters of oxygen to be titrated 88% to 92%. 12. Unspecified congestive heart failure awaiting 2D echo. 13. Gastroesophageal reflux. 14. Gout. 15. Asthma. PLAN: The patient is n.p.o. with episodes of hypoglycemia; therefore, the patient will be given D50 one amp per hypoglycemic protocol. IV fluids have been discontinued due to history of congestive heart failure and clinically has crackles on examination. The patient has been urged to finish his bowel prep in order to undergo colonoscopy. Dr. Salcedo of GI has been consulted. Due to persistent anemia, the patient will be given one more unit of red blood cells (RBC) transfusion. He will be supplemented magnesium and kept n.p.o. with fingersticks q. 6 hourly for now. Await results of the endoscopy. REMBERTO
--- NOTE | 2021-03-19 12:24 | CR ---
CONSULTATION DATE: 03/19/2021 REQUESTING PHYSICIAN: Hospitalist service. REASON FOR CONSULTATION: Iron deficiency anemia. HISTORY OF PRESENT ILLNESS: Mr. Ring is a 70-year-old gentleman with a long history of iron deficiency anemia that has been evaluated since 2016, with endoscopy and colonoscopy in [address] Gallagher. No definite source was found for the anemia. The patient was maintained on iron and was doing relatively well, but I understand he was anemic chronically. The patient has had recent confusion, for which he had a hemoglobin performed that showed the hemoglobin to be 7. He was transferred to [facility] for further evaluation of his acute decrease in Hb on top of his baseline iron deficiency anemia. PAST MEDICAL HISTORY: 1. COPD. 2. Atrial fibrillation. 3. CHF. 4. Insulin-dependent diabetes. 5. Gastroesophageal reflux disease. PAST SURGICAL HISTORY: 1. Hip replacement. 2. Colonoscopy 2018. 3. Upper endoscopy. 2017, 2018 SOCIAL HISTORY: Positive for former alcohol use. He used to be a heavy drinker. He tells me that at present, he no longer drinks for the past two to three years. He is a former smoker, but has also discontinued smoking. PHYSICAL EXAMINATION: VITAL SIGNS: Temperature 96.3, pulse 93, respiratory rate 20, blood pressure 100/56, pulse ox 100% on room air. GENERAL: He is awake, alert, and oriented x3. He is anxious and somewhat emotional. HEENT: Grossly without abnormalities. NECK: Supple. No lymphadenopathy or thyromegaly. CHEST: Clear bilaterally. Distant course breath sounds, but no rhonchi or crackles. HEART: Regular rate and rhythm. S1, S2. No murmurs. ABDOMEN: Soft and nontender with good bowel sounds. LABORATORY DATA: BUN 38, creatinine 0.9. Hemoglobin 7.1, MCV 73%. IMPRESSION: 1. Acute/Subacute anemia on baseline mild to moderate chronic iron deficit anemia 2. Chronic iron deficiency anemia with a negative previous workup. 3. The patient is on Pradaxa for atrial fibrillation and cardiomyopathy. RECOMMENDATIONS: 1. Hold Pradaxa. 2. Esophagogastroduodenoscopy (EGD) for acute anemia, and depending on findings, consider repeat colonoscopy in patient now with me, (or follow up outpatient with Dr Gallagher) MTDD
[2021-03-19] MEDS ORDERED: propofoL 200 MG/20 ML VIAL As Ordered ONE ×2 (12:59→13:27)
[2021-03-19] MEDS ORDERED: LIDOCAINE 2% 100MG/5ML SDV (FOR ANES.) As Ordered ONE (12:59)
[2021-03-19] MEDS: SLF 3 ML SYR IV SCH ×2 (14:00→21:27)
[2021-03-19 14:05] LABS: HEMATOCRIT 30.7 % (42.0-52.0); HEMOGLOBIN 9.8 g/dl (13.5-17.5)
[2021-03-19] MEDS ORDERED: PHENYLephrine 500MCG 5ML (100MCG/ML) SYRINGE As Ordered ONE (14:10)
[2021-03-19] MEDS ORDERED: ePHEDrine SULFATE 25 MG/5 ML(5MG/ML) SYRINGE As Ordered ONE (14:10)
--- NOTE | 2021-03-19 14:54 | ROOR ---
Patient Name: Eran Ring Procedure Date: 03/19/2021 6:09 AM Date of : 1950 Age: 70 Room: Main OR Gender: Male Note Status: Finalized Procedure: Upper GI endoscopy Indications: Acute post hemorrhagic anemia, Iron deficiency anemia Providers: Froilan Salcedo MD Referring MD: 2. Inpatient 2. Inpatient Requesting Provider: Medicines: Monitored Anesthesia Care Complications: No immediate complications. Procedure: Pre-Anesthesia Assessment: - The heart rate, respiratory rate, oxygen saturations, blood pressure, adequacy of pulmonary ventilation, and response to care were monitored throughout the procedure. The Endoscope was introduced through the mouth, and advanced to the second part of duodenum. The upper GI endoscopy was accomplished without difficulty. The patient tolerated the procedure well. Findings: A Dieulafoy lesion with spurting bleeding and stigmata of recent bleeding was found on the anterior wall of the gastric body. For hemostasis, four hemostatic clips were successfully placed. There was no bleeding at the end of the procedure. The examined esophagus was normal. The examined duodenum was normal. A medium-sized hiatal hernia was present. Impression: - A Dieulafoy lesion with spurting bleeding and stigmata of recent bleeding was found on the proximal anterior wall of the gastric body. For hemostasis, four hemostatic clips were successfully placed. There was no bleeding at the end of the procedure. - A few prominent venous structures at the cardia, but no brittney varices - Medium-sized hiatal hernia. - Normal esophagus. - Normal examined duodenum. - No specimens collected. Recommendation: - Perform a computed tomographic (CT scan) enterography at the next available appointment. (assess weight loss, possible liver disease, baseline chronic iron deficit anemia) Procedure Code(s): --- Professional --- 82165, Esophagogastroduodenoscopy, flexible, transoral; with control of bleeding, any method Diagnosis Code(s): --- Professional --- K31.82, Dieulafoy lesion (hemorrhagic) of stomach and duodenum K44.9, Diaphragmatic hernia without obstruction or gangrene D62, Acute posthemorrhagic anemia D50.9, Iron deficiency anemia, unspecified CPT copyright 2019 [employer]. All rights reserved. The codes documented in this report are preliminary and upon certified medical coder review may be revised to meet current compliance requirements. Froilan Salcedo MD Froilan Salcedo MD 03/19/2021 2:54:28 PM Electronically signed by Froilan Salcedo MD Number of Addenda: 0 Note Initiated On: 03/19/2021 6:09 AM Estimated Blood Loss: Estimated blood loss: none.
[2021-03-19] MEDS: PRAVASTATIN 20 MG TAB PO SCH (17:52)
[2021-03-19] MEDS ORDERED: GLUCAGON INJ 1MG VIAL SC PRN (19:30)
[2021-03-19] MEDS ORDERED: GLUCOSE 4GM CHEW TABLET PO PRN (19:30)
[2021-03-19] MEDS: LEVEMIR (INSULIN DETEMIR) 1 UNITS/0.01ML SC SCH (21:00)
[2021-03-20] VITALS: BP 115/58
[2021-03-20] MEDS: SUCRALFATE SUSP 1GM/10ML UD PO SCH ×5 (00:09→21:16)
[2021-03-20 04:00] VITALS: BP 117/62
[2021-03-20 05:10] LABS: BASO % 0.3 % (0.0-1.0); EOS # 0.2 10^3/uL (0.0-0.5); HEMATOCRIT 30.8 % (42.0-52.0); HEMOGLOBIN 9.9 g/dl (13.5-17.5); LYMPH # 3.1 10^3/uL (1.5-5.0); LYMPH % 26.1 % (24.0-44.0); MEAN CORPUSCULAR HEMOGLOBIN 24.6 pg (27.0-33.0); MEAN CORPUSCULAR HGB CONC 32.1 g/dl (32.0-36.5); MEAN CORPUSCULAR VOLUME 76.4 fl (80.0-96.0); MONO # 0.9 10^3/uL (0.0-0.8); MONO % 7.3 % (2.0-8.0); NEUTROPHILS # 7.5 10^3/uL (1.5-8.5); NEUTROPHILS % 63.9 % (36.0-66.0); PLATELET COUNT, AUTOMATED 254 10^3/uL (150-450); RED BLOOD COUNT 4.03 10^6/uL (4.30-6.10); WHITE BLOOD COUNT 11.7 10^3/uL (4.0-10.0)
[2021-03-20 05:31] LABS: ALBUMIN 2.7 GM/DL (3.2-5.2); ALT/SGPT 13 U/L (12-78); BILIRUBIN,TOTAL 0.2 MG/DL (0.2-1.0); BLOOD UREA NITROGEN 21 MG/DL (7-18); CALCIUM LEVEL 8.7 MG/DL (8.8-10.2); CARBON DIOXIDE LEVEL 26 MEQ/L (21-32); CHLORIDE LEVEL 106 MEQ/L (98-107); CREATININE FOR GFR 0.84 MG/DL (0.70-1.30); GLOMERULAR FILTRATION RATE > 60.0 (>42); GLUCOSE, FASTING 72 MG/DL (70-100); POTASSIUM SERUM 4.7 MEQ/L (3.5-5.1); SODIUM LEVEL 136 MEQ/L (136-145); TOTAL PROTEIN 6.9 GM/DL (6.4-8.2)
[2021-03-20] MEDS: SLF 3 ML SYR IV SCH ×3 (05:58→21:17)
[2021-03-20] MEDS: HumaLOG INSULIN (NovoLOG) PER UNIT SC SCH ×4 (07:30→21:00)
[2021-03-20] MEDS: SYMBICORT 80/4.5MCG INHALER 6GM INH SCH ×2 (07:39→19:48)
[2021-03-20 07:47] VITALS: BP 137/77
[2021-03-20] MEDS: DIVALPROEX 125 MG TAB PO SCH ×2 (09:01→21:16)
[2021-03-20] MEDS: PANTOPRAZOLE 40MG VIAL (C9113 PER 1) IV SCH (09:01)
[2021-03-20] MEDS: LIDOCAINE 5% OINT 30GM TUBE TOP SCH (09:01)
[2021-03-20] MEDS: FLUoxetine 20 MG CAP PO SCH (09:01)
[2021-03-20] MEDS: QUEtiapine FUMARATE 25 MG TAB PO SCH ×2 (09:02→21:16)
[2021-03-20] MEDS: FOLIC ACID 1 MG TAB PO SCH (09:02)
[2021-03-20] MEDS: VITAMIN D 1,000 INTERNATIONAL UNITS TABLET PO SCH (09:02)
[2021-03-20] MEDS: CYANOCOBALAMIN 500 MCG TAB PO SCH (09:02)
[2021-03-20] MEDS: BACTRIM 160MG/800MG DS TAB PO SCH ×2 (09:02→21:16)
[2021-03-20] MEDS: METOPROLOL SUCC (TopROL XL) 50MG **XL** TAB PO SCH (09:02)
[2021-03-20] MEDS: buPROPion **XL** TABLET 150MG (WELLBUTRIN XL) PO SCH (09:02)
[2021-03-20] MEDS: THIAMINE 100 MG TAB PO SCH (09:02)
--- NOTE | 2021-03-20 12:11 | IPN ---
PROGRESS NOTE DATE: 03/20/2021 SUBJECTIVE: Patient had an esophagogastroduodenoscopy (EGD) done yesterday with Dieulafoy lesion status post four hemastatic clips. This morning, denies any bright red blood per rectum, melena, black tarry stools, chest pain, pressure, tightness, shortness of breath, tightness, palpitations, lightheadedness, dizziness or near syncopal episode. PHYSICAL EXAMINATION: VITAL SIGNS: Temperature 97, pulse 90, respiratory rate 20, blood pressure 137/77, 95% on room air. GENERAL: Awake, alert, oriented to person, place and time. No pallor, icterus, jaundice or use of respiratory accessory muscles. NECK: No jugular venous distention (JVD), thyromegaly or cervical lymphadenopathy. No carotic bruits. LUNGS: Fine crackles at the bases. Otherwise, clear to auscultation. HEART: S1, S2. Irregularly irregular. Not tachycardic. ABDOMEN: Soft, nontender, nondistended. Positive bowel sounds times four quadrants. No hepatosplenomegaly. EXTREMITIES: No clubbing, cyanosis or pitting edema. LABORATORY DATA: 03/20/2021: Metabolic panel, microbiology, imaging studies have been reviewed. ASSESSMENT: This is a 70-year-old male admitted on 03/18/2021 with symptomatic anemia, after a syncopal episode, found to have a hemoglobin of 7. Electrocardiogram (EKG) showed sinus rhythm. IMPRESSION: 1. Gastrointestinal (GI) bleed secondary to Dieulafoy lesion in the setting of chronic aspirin and Pradaxa. 2. Hyperkalemia. 3. Gastrointestinal (GI) bleed. 4. Symptomatic anemia. 5. Blood loss anemia secondary to GI bleed. 6. Iron deficiency anemia. 7. Diabetic wound, on Bactrim. 8. Type 2 diabetes. 9. Hypertension. 10. Chronic obstructive pulmonary disease (COPD). 11. Chronic hypoxic respiratory failure on 2 liters home oxygen. 12. Congestive heart failure, unknown ejection fraction. 13. Gastroesophageal reflux. 14. Gout. 15. Asthma. 16. Chronic atrial fibrillation. 17. Unspecified cardiomyopathy. 18. Squamous cell carcinoma in the past. PLAN: Patient is medically stable, may be advanced to a full liquid diet. Anticoagulation, aspirin, Pradaxa, and antiplatelet heparin will be held for five days and resumed as outpatient. If hemoglobin and hematocrit remain stable, may advance to a soft diet in the morning. Outpatient follow up with gastroenterology. Otherwise, patient is resumed on all his other home medications. Hypoglycemic protocol and sliding scale insulin for now. Patient is medically stable to transfer to a medical/surgical floor. No telemetry required. Physical therapy (PT), occupational therapy (OT). Possible discharge in the next 24-48 hours. [facility]
[2021-03-20] MEDS ORDERED: HumaLOG INSULIN (NovoLOG) PER UNIT SC ONE (13:00)
[2021-03-20] MEDS: PRAVASTATIN 20 MG TAB PO SCH (17:26)
[2021-03-20] MEDS ORDERED: PANTOPRAZOLE 40MG TAB (PROTONIX) PO SCH (21:00)
[2021-03-20] MEDS: LEVEMIR (INSULIN DETEMIR) 1 UNITS/0.01ML SC SCH (21:17)
[2021-03-20 22:00] VITALS: BP 120/84
[2021-03-21] VITALS (28 sets, daily range): BP systolic 71–140; BP diastolic 42–97
[2021-03-21] MEDS ORDERED: HALOPERIDOL 5MG/ML VIAL (J1630 PER 1) IM PRN (02:25)
[2021-03-21] MEDS ORDERED: LORazepam 2 MG/ML VIAL IV PRN (02:25)
[2021-03-21] MEDS ORDERED: LORazepam 2 MG/ML VIAL As Ordered ONE (02:26)
[2021-03-21] MEDS ORDERED: HALOPERIDOL 5MG/ML VIAL (J1630 PER 1) As Ordered ONE (02:26)
[2021-03-21] MEDS ORDERED: NS 500 ML IV ONE ×2 (02:35→03:00)
[2021-03-21] MEDS: DEXTROSE 50% 50 ML SYRINGE IV PRN ×4 (02:38→03:56)
[2021-03-21 02:39] LABS: HEMATOCRIT 29.2 % (42.0-52.0); HEMOGLOBIN 9.2 g/dl (13.5-17.5); MEAN CORPUSCULAR HEMOGLOBIN 24.6 pg (27.0-33.0); MEAN CORPUSCULAR HGB CONC 31.5 g/dl (32.0-36.5); MEAN CORPUSCULAR VOLUME 78.1 fl (80.0-96.0); PLATELET COUNT, AUTOMATED 337 10^3/uL (150-450); RED BLOOD COUNT 3.74 10^6/uL (4.30-6.10); WHITE BLOOD COUNT 13.2 10^3/uL (4.0-10.0)
[2021-03-21] MEDS ORDERED: DEXTROSE 50% 50 ML SYRINGE IV STA (02:41)
--- NOTE | 2021-03-21 03:07 | IPNPDOC ---
Date Seen The patient was seen on 03/21/21. Progress Note Called by RN to assess patient for altered mental status and agitation. Patient examined at bedside. Disoriented, unable to re-orient, biting at the nursing staff. Vitals showing BP 84/50, HR 64, pulse Ox 92%, T 95.6F. Glucose finger stick 11. Exam showed fair air entry bilateraly without wheeze or rales on auscultation of chest. RRR, with a normal S1, S2. Abdomen soft. Moving all 4 extremities. L heel wound mucopurulent discharge noted. Speech clear but confused. Patient meets severe sepsis criteria. Suspect source, L heel wound. Mucopurulent discharge noted. Ordered an amp of D50. 2L NS bolus. Ordered CBC, CMP, mg, trop, LA, blood cultures x 2, UA with culture. CXR. Insert barraza for critical monitoring. Started on empiric vancomycin and zosyn. Transfer to ICU for critical care. VS, I&O, 24H, Fishbone Vital Signs/I&O Vital Signs Date Time Temp Pulse Resp B/P (MAP) Pulse Ox O2 Delivery O2 Flow Rate FiO2 03/20/21 22:00 98.6 97 18 120/84 (96) 100 Room Air 03/20/21 04:00 I&O- Last 24 Hours up to 6 AM 03/21/21 06:00 Intake Total 1040 ml Output Total 200 ml Balance 840 ml Laboratory Data 24H LABS Laboratory Tests 2 03/20/21 05:00: Immature Granulocyte % (Auto) 0.4, Neutrophils (%) (Auto) 63.9, Lymphocytes (%) (Auto) 26.1, Monocytes (%) (Auto) 7.3, Eosinophils (%) (Auto) 2.0, Basophils (%) (Auto) 0.3, Neutrophils # (Auto) 7.5, Lymphocytes # (Auto) 3.1, Monocytes # (Auto) 0.9H, Eosinophils # (Auto) 0.2, Basophils # (Auto) 0.0, Nucleated Red Blood Cells % (auto) 0.5H, Anion Gap 4L, Glomerular Filtration Rate > 60.0, Calcium Level 8.7L, Total Bilirubin 0.2, Aspartate Amino Transf (AST/SGOT) 18, Alanine Aminotransferase (ALT/SGPT) 13, Alkaline Phosphatase 92, Total Protein 6.9, Albumin 2.7L, Albumin/Globulin Ratio 0.6 03/20/21 12:05: Bedside Glucose (Misc Panel) 408H 03/20/21 15:17: Bedside Glucose (Misc Panel) 367H 03/20/21 16:52: Bedside Glucose (Misc Panel) 276H 03/20/21 19:56: Bedside Glucose (Misc Panel) 109 03/21/21 02:33: Nucleated Red Blood Cells % (auto) 0.0 CBC/BMP Laboratory Tests 03/20/21 05:00 03/21/21 02:33 Microbiology Microbiology 03/18/21 Respiratory Virus Panel (PCR) (PAPO) - Final, Complete 03/18/21 Blood Culture - Preliminary, Resulted No Growth after 72 hours. All specime... JONO LUGO MD March 21, 2021 03:07
[2021-03-21 03:14] LABS: ALBUMIN 2.7 GM/DL (3.2-5.2); ALT/SGPT 15 U/L (12-78); BILIRUBIN,TOTAL 0.2 MG/DL (0.2-1.0); BLOOD UREA NITROGEN 19 MG/DL (7-18); CALCIUM LEVEL 8.7 MG/DL (8.8-10.2); CARBON DIOXIDE LEVEL 24 MEQ/L (21-32); CHLORIDE LEVEL 105 MEQ/L (98-107); CREATININE FOR GFR 0.95 MG/DL (0.70-1.30); GLOMERULAR FILTRATION RATE > 60.0 (>42); GLUCOSE, FASTING 92 MG/DL (70-100); POTASSIUM SERUM 4.4 MEQ/L (3.5-5.1); SODIUM LEVEL 137 MEQ/L (136-145); TOTAL PROTEIN 6.3 GM/DL (6.4-8.2); TROPONIN I < 0.02 NG/ML (< 0.10)
[2021-03-21] MEDS: PIPERACILLIN/TAZOBACTAM SOD 4.5 GM in D5W MINI-BAG PLUS 50 ML IV SCH ×4 (03:42→22:00)
[2021-03-21] MEDS ORDERED: D5/0.45%NACL 1000ML IV ONE (03:45)
[2021-03-21] MEDS ORDERED: D5W/0.45% SODIUM CHLORIDE 1,000 ML IV SCH (03:55)
[2021-03-21 04:03] LABS: BEDSIDE GLUCOSE CONFIRMATION 103 MG/DL (LESS THAN 200)
[2021-03-21] MEDS ORDERED: ISOVUE-370 76% 100ML VIAL As Ordered ONE (04:03)
[2021-03-21] MEDS ORDERED: flumazeniL 0.5 MG/5 ML VIAL IV STA ×2 (04:04→04:56)
--- NOTE | 2021-03-21 04:55 | REPVR ---
PROCEDURE INFORMATION: Exam: CTA Chest With Contrast Exam date and time: 03/21/2021 4:14 AM Age: 70 years old Clinical indication: Other: Sepsis, R/O pe TECHNIQUE: Imaging protocol: Computed tomographic angiography of the chest with contrast. 3D rendering (Not supervised by radiologist): MIP and/or 3D reconstructed images were created by the technologist. Radiation optimization: All CT scans at this facility use at least one of these dose optimization techniques: automated exposure control; mA and/or kV adjustment per patient size (includes targeted exams where dose is matched to clinical indication); or iterative reconstruction. Contrast material: ISOVUE 370; Contrast volume: 100 ml; Contrast route: INTRAVENOUS (IV); COMPARISON: CO PORTABLE CHEST X-RAY 03/19/2021 8:47 AM FINDINGS: Pulmonary arteries: The pulmonary arteries are not enlarged. No filling defects are seen to indicate an acute pulmonary embolism. Aorta: The aorta demonstrates mild atherosclerotic calcification. No aortic aneurysm. The contrast bolus was not timed for optimal assessment of the thoracic aorta, but there is no sign of thoracic aortic dissection. Lungs: There is mild volume loss and a small amount of peripheral density in the left lung which is probably atelectasis and may be partially related to positioning. The patient was scanned in a partial left decubitus position. Pleural spaces: There is a trace of left pleural fluid. No pneumothorax is seen. Heart: There is mild cardiomegaly. There is mild atherosclerotic calcification of the coronary arteries. Lymph nodes: No lymphadenopathy is seen. Bones/joints: There is a fracture of the left 10th rib posteriorly which appears acute. There are multiple additional healed chronic fractures of the ribs. There are fractures of the left transverse processes of the L1 and L2 vertebrae, which may be acute as well. Soft tissues: There is nonspecific gynecomastia. IMPRESSION: 1. No evidence of acute pulmonary embolism. 2. Fracture of the left 10th rib posteriorly which appears acute and fractures of the left transverse processes of L1 and L2 which may be acute as well. 3. Small left pleural effusion but no pneumothorax. 4. Mild volume loss and small peripheral density in the in the left lung, likely atelectasis. Electronically signed by: Lilli Gomez On 03/21/2021 04:54:47 AM
--- NOTE | 2021-03-21 04:58 | REPVR ---
PROCEDURE INFORMATION: Exam: CT Head Without Contrast Exam date and time: 03/21/2021 4:14 AM Age: 70 years old Clinical indication: Other: Acute mental status change TECHNIQUE: Imaging protocol: Computed tomography of the head without contrast. Radiation optimization: All CT scans at this facility use at least one of these dose optimization techniques: automated exposure control; mA and/or kV adjustment per patient size (includes targeted exams where dose is matched to clinical indication); or iterative reconstruction. COMPARISON: 1. CT Head without contrast 2021-03-18 07:[address] Head without contrast 2020-11-08 20:44 FINDINGS: Brain: Diffuse moderate cerebral age related volume loss. Moderate patchy low attenuation in the white matter compatible with moderate chronic small vessel ischemic disease. No midline shift, mass, fluid collection, or evidence of hemorrhage. Scattered chronic appearing lacunae in the deep garcía structures and/or periventricular white matter. Cerebral ventricles: Ventricular enlargement proportional to volume loss. Paranasal sinuses: Visualized sinuses are unremarkable. No fluid levels. Mastoid air cells: Visualized mastoid air cells are well aerated. Bones/joints: Previous ORIF left orbital floor fracture. Soft tissues: Unremarkable. IMPRESSION: Moderate involutional changes, no acute intracranial abnormality. Electronically signed by: Froilan Corado On 03/21/2021 04:58:13 AM
[2021-03-21] MEDS ORDERED: D10W/0.45% SODIUM CHLORIDE 1,000 ML IV SCH ×3 (05:00→17:00)
[2021-03-21] MEDS ORDERED: VANCOMYCIN HCL 750 MG, VIAL MATE ADAPTER 1 EACH in NS 250 ML IV ONE ×2 (05:00→06:00)
[2021-03-21] MEDS ORDERED: NS 1,000 ML IV ONE (05:00)
[2021-03-21] MEDS: SLF 3 ML SYR IV SCH ×3 (05:08→22:02)
--- NOTE | 2021-03-21 05:13 | REPVR ---
PROCEDURE INFORMATION: Exam: CT Abdomen And Pelvis With Contrast Exam date and time: 03/21/2021 4:14 AM Age: 70 years old Clinical indication: Other: Sepsis, R/O pe TECHNIQUE: Imaging protocol: Computed tomography of the abdomen and pelvis with contrast. Radiation optimization: All CT scans at this facility use at least one of these dose optimization techniques: automated exposure control; mA and/or kV adjustment per patient size (includes targeted exams where dose is matched to clinical indication); or iterative reconstruction. Contrast material: ISOVUE 370; Contrast volume: 100 ml; Contrast route: INTRAVENOUS (IV); COMPARISON: No relevant prior studies available. FINDINGS: Limitations: There is artifact in the pelvis related to the hip prosthesis. Liver: The liver appears unremarkable. Gallbladder and bile ducts: The gallbladder is normal with no stones or biliary ductal dilation. There is no biliary ductal dilation. Pancreas: There is marked atrophy of the pancreas with multiple calcifications within the residual head of the pancreas. Spleen: The spleen is borderline in size measuring 12.8 x 13.3 cm. Adrenal glands: The adrenal glands are normal. Kidneys and ureters: There are nonobstructing stones in the left kidney. There is asymmetric thinning of the renal parenchyma bilaterally, consist scars and mild chronic atrophy. There are no ureteral stones or hydronephrosis. Stomach and bowel: There is an angular, irregularly shaped, high density structure in the stomach which appears to be intraluminal or intramural. It is of uncertain etiology but may be an ingested foreign body. Please correlate with any prior procedure at the stomach. There is thickening of the gastric rugal folds. The small bowel appears unremarkable. There is no dilation or thickening of the colon. Appendix: A normal appendix is identified. Intraperitoneal space: There is no evidence of free intraperitoneal or pelvic fluid. There is no free intraperitoneal air. Vasculature: There are multiple perigastric and perisplenic varices. The aorta demonstrates mild atherosclerotic calcification. No aortic aneurysm. Lymph nodes: There are multiple enlarged left inguinal and left iliac chain lymph nodes. Urinary bladder: The bladder is decompressed by a Springer catheter. Assessment of the bladder is limited by artifact in the pelvis. Reproductive: The prostate gland is obscured by artifact in the pelvis. Bones/joints: There are fractures of the left L2 and L3 transverse processes which are of indeterminate age but may be acute. There are deformities of the right L1 and L2 transverse processes which do not appear acute. There is a right hip prosthesis and remodeling of the proximal right femur consistent with a healed prior fracture. There is facet arthropathy in the lumbar spine. Degenerative endplate changes are seen at multiple levels in the visualized spine. There is a leftward convex curvature of the lumbar spine. Soft tissues: There is a shallow, broad-based right iliolumbar hernia containing fat. IMPRESSION: 1. High density structure of uncertain etiology in the stomach which may be intraluminal or intramural. It may be an ingested foreign body but correlate with any prior procedure in the stomach. 2. Diffuse thickening of the gastric rugal folds and multiple perigastric and perisplenic varices. 3. Diffuse atrophy of the pancreas with calcifications in the residual head of the pancreas, likely the sequela of chronic pancreatitis. 4. Chronic scarring and mild atrophy of the kidneys. Nonobstructing stones in the left kidney. 5. Nonspecific left inguinal and left iliac chain lymphadenopathy. Correlate with any infectious or neoplastic processes in the left lower extremity. 6. Fractures of the transverse processes of L2 and L3, of indeterminate age, possibly acute. Electronically signed by: Lilli Gomez On 03/21/2021 05:13:16 AM
[2021-03-21 05:29] LABS: ABG BASE EXCESS -4.3 (-2.0-2.0); ABG HCO3 21.3 MEQ/L (22.0-26.0); ABG PARTIAL PRESSURE O2 147.4 mmHg (75.0-100.0); ABG STANDARD HCO3 20.9 MEQ/L (22.0-26.0); ABG TOTAL CO2 22.5 MEQ/L (23.0-31.0); ABG pH (ARTERIAL) 7.333 UNITS (7.350-7.450)
[2021-03-21 05:48] LABS: NT-PRO BNP 842 PG/ML (<125)
[2021-03-21] MEDS: HumaLOG INSULIN (NovoLOG) PER UNIT SC SCH ×4 (07:30→22:01)
[2021-03-21] MEDS: SUCRALFATE SUSP 1GM/10ML UD PO SCH (07:30)
[2021-03-21 07:32] LABS: BASO % 0.3 % (0.0-1.0); EOS # 0.1 10^3/uL (0.0-0.5); EOS % 1.7 % (0.0-3.0); HEMATOCRIT 25.1 % (42.0-52.0); LYMPH % 27.3 % (24.0-44.0); MEAN CORPUSCULAR HEMOGLOBIN 24.8 pg (27.0-33.0); MEAN CORPUSCULAR HGB CONC 31.9 g/dl (32.0-36.5); MONO # 0.4 10^3/uL (0.0-0.8); MONO % 5.4 % (2.0-8.0); NEUTROPHILS # 4.7 10^3/uL (1.5-8.5); NEUTROPHILS % 64.9 % (36.0-66.0); PLATELET COUNT, AUTOMATED 221 10^3/uL (150-450); RED BLOOD COUNT 3.22 10^6/uL (4.30-6.10); WHITE BLOOD COUNT 7.2 10^3/uL (4.0-10.0)
[2021-03-21 07:50] LABS: HEMOGLOBIN A1c 7.5 %
[2021-03-21 07:59] LABS: ALBUMIN 2.3 GM/DL (3.2-5.2); ALT/SGPT 10 U/L (12-78); BILIRUBIN,TOTAL 0.3 MG/DL (0.2-1.0); BLOOD UREA NITROGEN 17 MG/DL (7-18); CALCIUM LEVEL 8.1 MG/DL (8.8-10.2); CARBON DIOXIDE LEVEL 24 MEQ/L (21-32); CHLORIDE LEVEL 107 MEQ/L (98-107); CREATININE FOR GFR 0.77 MG/DL (0.70-1.30); GLOMERULAR FILTRATION RATE > 60.0 (>42); GLUCOSE, FASTING 60 MG/DL (70-100); POTASSIUM SERUM 4.5 MEQ/L (3.5-5.1); SODIUM LEVEL 137 MEQ/L (136-145); TOTAL PROTEIN 5.3 GM/DL (6.4-8.2)
[2021-03-21] MEDS: SYMBICORT 80/4.5MCG INHALER 6GM INH SCH ×2 (08:01→20:53)
[2021-03-21 08:15] LABS: ERYTHROCYTE SEDIMENTATION RATE 35 mm/hr (0-20)
[2021-03-21 08:20] LABS: C REACTIVE PROTEIN QUANTITATIV 1.44 MG/DL (0.00-0.30)
--- NOTE | 2021-03-21 08:32 | REP ---
INDICATION: sepsis COMPARISON: 03/19/2021 TECHNIQUE: Portable AP view of the chest FINDINGS: The mediastinum and cardiac silhouette are stable and within normal limits for portable technique. The lung atkins demonstrate stable chronic changes with new moderate superimposed infiltrates primarily involving the left mid and lower lung zones. No effusion. No pneumothorax. Skeletal structures stable. Skeletal structures are intact. IMPRESSION: New infiltrates involving the left mid to lower lung zone. <Electronically signed by Kwaku Merida > 03/21/21 [id number]
--- NOTE | 2021-03-21 08:57 | IPN ---
PROGRESS NOTE DATE: 03/21/2021 SUBJECTIVE: The patient was emergently transferred to ICU due to severe hypoglycemia, hypothermia and sepsis. Glucose was 35 overnight. He did receive Levemir insulin. Per nursing, fingerstick was 11 at the bedside initially. Patient was agitated. He was given Haldol and Ativan with subsequent decrease in mentation, transferred to ICU, given flumazenil 0.2 mg with some improvement, currently on D10 1/2 normal saline with glucose increasing to 120 this morning. The patient is on a Peri Hugger, empirically treated with vancomycin and Zosyn, Levemir insulin discontinued. The patient denies any shortness of breath, chest pain, pressure, tightness, dysuria, urgency, frequency. OBJECTIVE: General: He is lethargic this morning, no respiratory distress or use of respiratory accessory muscles. HEENT: Moist mucous membranes, no JVD, thyromegaly or cervical lymphadenopathy. Lungs: Clear to auscultation, no wheezing, rales or rhonchi. Heart: S1, S2, sinus rhythm. Abdomen: Soft, nontender, nondistended, positive bowel sounds, no rebound or guarding. Extremities: Bilateral heels, no purulence, erythema, no necrosis. LABORATORY DATA: White count 13.8, hemoglobin 9, hematocrit 29, platelet count 337. Sodium 137, potassium 4.4, chloride 105, bicarb 24, BUN 19, creatinine 0.9, fast glucose 97. Lactic acid 1.7, BNP of 842. Microbiology: Two sets of blood cultures are pending. IMAGING STUDIES: CT of chest, abdomen and pelvis reviewed. ASSESSMENT AND PLAN: This is a 70-year-old male admitted on 03/18 with symptomatic anemia, syncopal episode, found to have hemoglobin of 7. EKG with sinus rhythm. The patient was admitted for suspected GI bleed, status post EGD, colonoscopy with Dieulafoy lesion identified with his aspirin and Pradaxa held. CURRENT ISSUES: 1. Hypoglycemia, hypothermia, rule out sepsis. Patient is currently on IV fluids, D10 with improvement in glucose level. IV antibiotics, vancomycin and Zosyn. 2. Bilateral heel ulcers, left foot. Ulcer without necrosis, right foot. Partial amputation of the second phalanx ulcer. Currently on vancomycin and Zosyn. Check wound cultures, bilateral heels. Arrange for telemedicine with Dr. Woodard. Continue with empiric antibiotics for now. Surgical debridement by surgery if needed and recommended by Dr. Woodard. 3. Acute GI bleed, status post metallic clip for Dieulafoy lesion with unclear size for 48 hours. May advance if mentation is improved. 4. Acute metabolic encephalopathy due to hypoglycemia as well as substance induced with Haldol and Ativan, reversed with flumazenil with no significant improvement. Continue with supportive care with IV antibiotics, IV fluids, D10 1/2 normal saline. Speech evaluation to rule out aspiration. 5. Acute blood loss anemia secondary to GI bleed. Hemoglobin, hematocrit remained stable. If patient improves with mentation back to baseline, may advance diet. 6. Chronic hypoxic respiratory failure on two liters of oxygen at baseline, COPD, compensated, history of diastolic heart failure, monitor IV fluids, strict Is and Os and weight daily. 7. Chronic atrial fibrillation, currently rate controlled, off of Pradaxa due to recent GI bleed requiring blood transfusion and blood loss anemia. 8. Iron deficiency anemia, chronic type 2 diabetes, currently with hypoglycemia on D10, fingersticks, discontinue Levemir insulin. MTDD
[2021-03-21] MEDS: LIDOCAINE 5% OINT 30GM TUBE TOP SCH (09:00)
[2021-03-21] MEDS ORDERED: MIDODRINE 5 MG TAB PO SCH (09:40)
[2021-03-21] MEDS ORDERED: NS 1,000 ML IV SCH (09:45)
[2021-03-21] MEDS: PANTOPRAZOLE 40MG VIAL (C9113 PER 1) IV SCH ×2 (09:58→22:01)
[2021-03-21] MEDS: DIVALPROEX 125 MG TAB PO SCH ×2 (11:12→22:01)
[2021-03-21] MEDS ORDERED: GLUCAGON INJ 1MG VIAL SC PRN (14:30)
[2021-03-21 15:02] LABS: ALBUMIN 2.3 GM/DL (3.2-5.2); ALT/SGPT 10 U/L (12-78); BILIRUBIN,TOTAL 0.2 MG/DL (0.2-1.0); BLOOD UREA NITROGEN 16 MG/DL (7-18); CARBON DIOXIDE LEVEL 23 MEQ/L (21-32); CHLORIDE LEVEL 106 MEQ/L (98-107); CREATININE FOR GFR 0.78 MG/DL (0.70-1.30); GLOMERULAR FILTRATION RATE > 60.0 (>42); GLUCOSE, FASTING 64 MG/DL (70-100); POTASSIUM SERUM 4.5 MEQ/L (3.5-5.1); SODIUM LEVEL 137 MEQ/L (136-145); TOTAL PROTEIN 5.4 GM/DL (6.4-8.2)
[2021-03-21] MEDS: VANCOMYCIN HCL 1,000 MG, VIAL MATE ADAPTER 1 EACH in NS 250 ML IV SCH (17:13)
[2021-03-22] MEDS: PIPERACILLIN/TAZOBACTAM SOD 4.5 GM in D5W MINI-BAG PLUS 50 ML IV SCH ×4 (03:17→22:08)
[2021-03-22 06:00] VITALS: BP 155/89
[2021-03-22] MEDS: SLF 3 ML SYR IV SCH ×3 (06:12→22:10)
[2021-03-22] MEDS: VANCOMYCIN HCL 1,000 MG, VIAL MATE ADAPTER 1 EACH in NS 250 ML IV SCH ×2 (06:12→17:57)
[2021-03-22 07:18] LABS: BASO % 0.3 % (0.0-1.0); EOS # 0.2 10^3/uL (0.0-0.5); EOS % 3.4 % (0.0-3.0); HEMATOCRIT 26.9 % (42.0-52.0); HEMOGLOBIN 8.7 g/dl (13.5-17.5); LYMPH # 1.9 10^3/uL (1.5-5.0); LYMPH % 31.2 % (24.0-44.0); MEAN CORPUSCULAR HEMOGLOBIN 25.2 pg (27.0-33.0); MEAN CORPUSCULAR HGB CONC 32.3 g/dl (32.0-36.5); MONO # 0.4 10^3/uL (0.0-0.8); NEUTROPHILS # 3.6 10^3/uL (1.5-8.5); NEUTROPHILS % 58.8 % (36.0-66.0); PLATELET COUNT, AUTOMATED 222 10^3/uL (150-450); RED BLOOD COUNT 3.45 10^6/uL (4.30-6.10); WHITE BLOOD COUNT 6.2 10^3/uL (4.0-10.0)
[2021-03-22] MEDS: SYMBICORT 80/4.5MCG INHALER 6GM INH SCH ×2 (07:26→19:57)
[2021-03-22 07:44] LABS: ALBUMIN 2.6 GM/DL (3.2-5.2); ALT/SGPT 12 U/L (12-78); BILIRUBIN,TOTAL 0.3 MG/DL (0.2-1.0); BLOOD UREA NITROGEN 15 MG/DL (7-18); CALCIUM LEVEL 8.8 MG/DL (8.8-10.2); CARBON DIOXIDE LEVEL 25 MEQ/L (21-32); CHLORIDE LEVEL 98 MEQ/L (98-107); CREATININE FOR GFR 1.09 MG/DL (0.70-1.30); GLOMERULAR FILTRATION RATE > 60.0 (>42); GLUCOSE, FASTING 454 MG/DL (70-100); POTASSIUM SERUM 5.2 MEQ/L (3.5-5.1); SODIUM LEVEL 129 MEQ/L (136-145); TOTAL PROTEIN 6.1 GM/DL (6.4-8.2)
[2021-03-22] MEDS: PANTOPRAZOLE 40MG VIAL (C9113 PER 1) IV SCH ×2 (08:25→22:08)
[2021-03-22] MEDS: HumaLOG INSULIN (NovoLOG) PER UNIT SC SCH ×4 (08:26→21:00)
[2021-03-22] MEDS: DIVALPROEX 125 MG TAB PO SCH ×2 (08:27→22:05)
[2021-03-22] MEDS: LIDOCAINE 5% OINT 30GM TUBE TOP SCH (08:29)
[2021-03-22] MEDS ORDERED: LEVEMIR (INSULIN DETEMIR) 1 UNITS/0.01ML SC SCH ×2 (09:00→21:00)
--- NOTE | 2021-03-22 09:51 | ECHO ---
ECHOCARDIOGRAM DATE OF PROCEDURE: 03/19/2021 Age: 70 Gender: Male Height: 72 inches Weight: 164 pounds Body surface area: 1.96 m2 PATIENT LOCATION: Inpatient PCU, Room 3230. REFERRING PHYSICIAN: Rylee Leiva MD INDICATIONS: Syncope. MEASUREMENTS: 2D Measurements: RV 3.7 cm LV 5.5 cm Septum 1.1 cm Posterior wall 1.1 cm Aortic Root 3.6 cm LA 3.9 cm LVEF 65% Doppler Measurements: AV 1.68 m/s LVOT 0.97 m/s MV-E 48, A 87, E/A ratio 0.6 Early mitral deceleration time 174 msec E prime medial 6.6, A prime medial 9.5, E prime lateral 7.2 Average E/E prime ratio 7/PCWP 10.5 mmHg PV 1.0 m/s Pulmonary artery acceleration time 127 msec PASP 24 mmHg IVC 1.6 cm COMMENTS: Normal sinus rhythm without intraventricular conduction disturbance. Technically difficult study in light of the patient's body configuration, but diagnostically useful information was still obtained. M-mode and two-dimensional echocardiography was performed with pulse, continuous wave, color flow, and tissue Doppler studies. Normal left ventricle size, wall thickness, and wall motion. Left atrial size upper limits of normal with grade 1 LV diastolic dysfunction, but currently normal estimated mean left atrial pressure. Normal right heart chamber sizes, wall motion, and estimated pulmonary arterial pressure. Normal IVC size and collapse against an elevated central venous pressure. Normal aortic dimensions. Moderate aortic valvular sclerosis without stenosis, but very mild to mild insufficiency. Mildly thickening mitral valve apparatus without functional valvular abnormality. Normal appearing tricuspid valve without insufficiency. No apparent intracardiac mass or pericardial effusion. We were unable to identify any structural or functional cardiac abnormality to account for the patient's syncopal spell. [facility]
[2021-03-22 10:28] LABS: PROLACTIN 52.8 NG/ML (2.1-17.7)
--- NOTE | 2021-03-22 11:04 | IPNPDOC ---
Text Note Date of Service The patient was seen on 03/22/21. NOTE Subjective: Patient is a 70-year-old male with a PMHx of HTN, Diastolic CHF, Alcoholic cardiomyopathy, Pulmonary HTN, Paroxysmal A. fib, DLP, IDDM2, CKD3, COPD, Depression, Neuropathy, Chronic pain 2/2 DDD, Gout, Diabetic ulcers bilaterally who presented to the hospital after a syncopal episode which was suspected to be from symptomatic anemia. On arrival to emergency room, patient had a hemoglobin of 7. Patient was admitted to the hospital service for suspected GI bleeding. Throughout hospital course patient has received an EGD and colonoscopy that have revealed a Dieulafoy lesion. His aspirin and Pradaxa were held initially. Patient's hospital course was complicated with sepsis, which was suspected to be from his left foot ulceration. Patient was started on broad-spectrum antibiotics with vancomycin and Zosyn. Patient was seen and examined at the bedside. Patient was sitting up in bed, appears to be comfortable, denied any nausea, vomiting, chest pain, shortness breath, palpitations, has not spent any abdominal pain, urinary discomfort. Reports that his bowel movement yesterday was relatively normal. Objective: Vitals (See below) General: Lying in bed, no acute distress, comfortable, AAOx3 HEENT: NC, AT CVS: +S1S2 Lungs: Fair air entry b/l, no evidence of wheezing, rhonchi or rales Abdomen: Soft, ND, NT Extremities: - Edema, - Calf tenderness, bilateral feet with dressing in place Imaging: CT cervical spine 03/18: No acute fracture. CT head 03/18: No acute hemorrhage or calvarial fracture. Carotid duplex US 03/18: No hemodynamically significant areas of narrowing or stenosis appreciated. Based on set standards narrowing falls within the less than 50% range. Foot XR 03/18: Extensive arthritic changes as described above. Areas of soft tissue swelling with suspected ulceration No obvious periosteal reaction or acute osseous changes to identify osteomyelitis. Knee XR 03/18: Moderate osteoarthritis left knee with possible loose bodies and lateral co mpartment spurring and joint space narrowing. No fracture or other acute bony abnormality.. CXR 03/19: No acute cardiopulmonary process appreciated. CT head 03/21: Moderate involutional changes, no acute intracranial abnormality. CXR 03/21: New infiltrates involving the left mid to lower lung zone. CT abdomen / pelvis 03/21: 1. High density structure of uncertain etiology in the stomach which may be intraluminal or intramural. It may be an ingested foreign body but correlate with any prior procedure in the stomach. 2. Diffuse thickening of the gastric rugal folds and multiple perigastric and perisplenic varices. 3. Diffuse atrophy of the pancreas with calcifications in the residual head of the pancreas, likely the sequela of chronic pancreatitis. 4. Chronic scarring and mild atrophy of the kidneys. Nonobstructing stones in the left kidney. 5. Nonspecific left inguinal and left iliac chain lymphadenopathy. Correlate with any infectious or neoplastic processes in the left lower extremity. 6. Fractures of the transverse processes of L2 and L3, of indeterminate age, possibly acute. CTA chest 03/21: 1. No evidence of acute pulmonary embolism. 2. Fracture of the left 10th rib posteriorly which appears acute and fractures of the left transverse processes of L1 and L2 which may be acute as well. 3. Small left pleural effusion but no pneumothorax. 4. Mild volume loss and small peripheral density in the in the left lung, likely atelectasis. Assessment and plan: Sepsis - likely 2/2 bilateral heel ulcers, possibly 2/2 pneumonia - Patient was hypotensive, tachycardic, hypothermic and hypoglycemic on 03/21 was transitioned to the ICU - Currently patient has normal blood pressure - Leukocytosis has resolved - Blood cultures 03/18: No growth at 72 hours - Blood cultures 03/21: No growth at 24 hours - Respiratory panel. 03/18: Negative - MRSA screen negative - Imaging reviewed above - c/w Vancomycin and Zosyn (Day #2) - Consulted podiatry today for evaluation / Advanced wound care Microcytic anemia/ Symptomatic anemia - likely 2/2 acute GI bleed - 2/2 Dieulafoy lesion - No further reported episodes of bleeding - Hemodynamically stable - Currently, patient's hemoglobin has remained stable - s/p 3 units PRBC - c/w Protonix s/p Acute metabolic encephalopathy - Currently patient is fully oriented to person, place and time - No focal neurologic deficits noted - Imaging noted above HTN - Blood pressure mildly elevated this morning - Will resume Metoprolol succinate Diastolic CHF - Likely 2/2 Alcoholic cardiomyopathy - Hx of Pulmonary HTN Paroxysmal A. fib - Will resume metoprolol - off anticoagulation given recent GI bleed / transfusion requirement DLP - Will resume pravastatin Pseudohyponatremia - Corrected sodium of 137 IDDM2 with hypoglycemia and hyperglycemia - This morning patient's blood glucose was elevated in the 400s - Will resume Levemir and repeat basic metabolic panel for this afternoon - c/w ISS CKD3 - Cr appears to be at baseline Chronic COPD - Chronic hypoxic respiratory failure; patient uses 2 L nasal cannula at baseline - No evidence of exacerbation - Continue with inhaled therapy as ordered Depression / Anxiety - Will resume Alprazolam PRN Neuropathy Seizure disorder - c/w Divalproex Chronic pain 2/2 DDD - c/w Tylenol pRN DVT prophylaxis - c/w TEDs/Sequentials Disposition: - Awaiting input from podiatry YOLANDA,Rubens, I+O VSRubens I+O Laboratory Tests 03/22/21 06:58 Vital Signs Date Time Temp Pulse Resp B/P (MAP) Pulse Ox O2 Delivery O2 Flow Rate FiO2 03/22/21 06:00 97.5 107 20 155/89 (111) 98 Room Air 03/21/21 20:18 2.0 I&O- Last 24 Hours up to 6 AM 03/22/21 06:00 Intake Total 5010 ml Output Total 1375 ml Balance 3635 ml GAYATRI BOSWELL MD Mar 22, 2021 11:04
[2021-03-22] MEDS: METOPROLOL SUCC (TopROL XL) 50MG **XL** TAB PO SCH (12:12)
[2021-03-22 12:49] LABS: BLOOD UREA NITROGEN 15 MG/DL (7-18); CALCIUM LEVEL 9.7 MG/DL (8.8-10.2); CARBON DIOXIDE LEVEL 24 MEQ/L (21-32); CHLORIDE LEVEL 98 MEQ/L (98-107); CREATININE FOR GFR 1.09 MG/DL (0.70-1.30); GLOMERULAR FILTRATION RATE > 60.0 (>42); GLUCOSE, FASTING 346 MG/DL (70-100); POTASSIUM SERUM 4.9 MEQ/L (3.5-5.1); SODIUM LEVEL 131 MEQ/L (136-145)
[2021-03-22 14:00] VITALS: BP 129/78
[2021-03-22] MEDS: LORazepam 1 MG TAB PO PRN ×2 (15:21→22:07)
--- NOTE | 2021-03-22 17:51 | CR ---
CONSULTATION DATE: 03/22/2021 REASON FOR VISIT: Bilateral foot ulcerations. Eran Ring is a 70-year-old male, well known to me with chronic ulcerations to both feet. He has been a resident of [facility]. He has had multiple admissions in the last 6 months due to altered mental status. He has had progressive dementia over the last few years, which appears to have worsened. He was following with Dr. Woodard until he was admitted to [facility]. He has not been present at the wound care center in about 6 months. MEDICAL HISTORY: 1. Hypertension. 2. Chronic obstructive pulmonary disease (COPD). 3. Atrial fibrillation. 4. Congestive heart failure. 5. Diabetes. 6. Neuropathy. 7. Gastroesophageal reflux disease (GERD). 8. Gout. 9. Asthma. 10. Squamous cell carcinoma. 11. History of COVID. 12. Cardiomyopathy. 13. Chronic kidney disease. 14. Dementia. SURGICAL HISTORY: 1. Hernia repair. 2. Total hip replacement. 3. Toe amputations. REVIEW OF SYSTEMS: Negative for nausea, vomiting, fever, or chills. ALLERGIES: None. LABORATORY DATA: White blood cell count 6.2, ESR 35, CRP 1.44. LOWER EXTREMITY EXAMINATION: On the left foot there is an ulceration over the left heel with some granular tissue. On the right foot there is an ulcer at the 5th toe and metatarsal head with some fibrous tissue. ASSESSMENT: A 71-year-old diabetic male with feet ulcers. TREATMENT: Excisional Wound debridement performed using dermal curette, including subcutaneous tissue with dermal curette. Wound dressings are to be Vashe, Hydrofera Blue, Kerlix, changed daily. His wound prognosis is poor given his mental status and inability to comply with offloading. Once discharged should have continued followup with Dr. Woodard. [facility]ITALGertrudis
[2021-03-22] MEDS ORDERED: LORazepam 2 MG/ML VIAL IV ONE (21:40)
[2021-03-22 22:00] VITALS: BP 113/63
[2021-03-22] MEDS: PRAVASTATIN 20 MG TAB PO SCH (22:05)
[2021-03-23] MEDS: PIPERACILLIN/TAZOBACTAM SOD 4.5 GM in D5W MINI-BAG PLUS 50 ML IV SCH (03:46)
[2021-03-23 06:00] VITALS: BP 145/78
[2021-03-23] MEDS: HumaLOG INSULIN (NovoLOG) PER UNIT SC SCH ×4 (06:09→20:58)
[2021-03-23] MEDS: VANCOMYCIN HCL 1,000 MG, VIAL MATE ADAPTER 1 EACH in NS 250 ML IV SCH (06:09)
[2021-03-23] MEDS: SLF 3 ML SYR IV SCH ×3 (06:09→21:36)
[2021-03-23 06:20] LABS: BASO % 0.6 % (0.0-1.0); EOS # 0.4 10^3/uL (0.0-0.5); EOS % 5.6 % (0.0-3.0); HEMATOCRIT 28.7 % (42.0-52.0); LYMPH # 2.4 10^3/uL (1.5-5.0); LYMPH % 36.9 % (24.0-44.0); MEAN CORPUSCULAR HEMOGLOBIN 24.6 pg (27.0-33.0); MEAN CORPUSCULAR HGB CONC 31.4 g/dl (32.0-36.5); MEAN CORPUSCULAR VOLUME 78.4 fl (80.0-96.0); MONO # 0.5 10^3/uL (0.0-0.8); NEUTROPHILS # 3.3 10^3/uL (1.5-8.5); NEUTROPHILS % 49.4 % (36.0-66.0); PLATELET COUNT, AUTOMATED 266 10^3/uL (150-450); RED BLOOD COUNT 3.66 10^6/uL (4.30-6.10); WHITE BLOOD COUNT 6.6 10^3/uL (4.0-10.0)
[2021-03-23] MEDS: SYMBICORT 80/4.5MCG INHALER 6GM INH SCH ×2 (07:39→19:26)
[2021-03-23 08:16] LABS: ALBUMIN 2.6 GM/DL (3.2-5.2); ALT/SGPT 15 U/L (12-78); BILIRUBIN,TOTAL 0.2 MG/DL (0.2-1.0); BLOOD UREA NITROGEN 16 MG/DL (7-18); CALCIUM LEVEL 9.5 MG/DL (8.8-10.2); CARBON DIOXIDE LEVEL 28 MEQ/L (21-32); CHLORIDE LEVEL 100 MEQ/L (98-107); CREATININE FOR GFR 0.98 MG/DL (0.70-1.30); GLOMERULAR FILTRATION RATE > 60.0 (>42); GLUCOSE, FASTING 394 MG/DL (70-100); POTASSIUM SERUM 4.7 MEQ/L (3.5-5.1); SODIUM LEVEL 134 MEQ/L (136-145); TOTAL PROTEIN 6.2 GM/DL (6.4-8.2); VANCOMYCIN RANDOM 11.5 UG/ML
[2021-03-23] MEDS: LIDOCAINE 5% OINT 30GM TUBE TOP SCH (09:00)
[2021-03-23] MEDS: LEVEMIR (INSULIN DETEMIR) 1 UNITS/0.01ML SC SCH ×2 (09:20→21:36)
[2021-03-23] MEDS: PANTOPRAZOLE 40MG VIAL (C9113 PER 1) IV SCH ×2 (09:20→21:35)
[2021-03-23] MEDS: DIVALPROEX 125 MG TAB PO SCH ×2 (09:20→21:36)
[2021-03-23] MEDS: LORazepam 1 MG TAB PO PRN ×2 (09:20→16:17)
[2021-03-23] MEDS: AUGMENTIN 875 MG TAB PO SCH ×2 (09:20→21:36)
[2021-03-23] MEDS: DOXYCYCLINE HYCLATE 100MG TABLET PO SCH ×2 (09:21→21:36)
[2021-03-23] MEDS: METOPROLOL SUCC (TopROL XL) 50MG **XL** TAB PO SCH (09:21)
--- NOTE | 2021-03-23 10:28 | IPNPDOC ---
Text Note Date of Service The patient was seen on 03/23/21. NOTE Subjective: Patient is a 70-year-old male with a PMHx of HTN, Diastolic CHF, Alcoholic cardiomyopathy, Pulmonary HTN, Paroxysmal A. fib, DLP, IDDM2, CKD3, COPD, Depression, Neuropathy, Chronic pain 2/2 DDD, Gout, Diabetic ulcers bilaterally who presented to the hospital after a syncopal episode which was suspected to be from symptomatic anemia. On arrival to emergency room, patient had a hemoglobin of 7. Patient was admitted to the hospital service for suspected GI bleeding. Throughout hospital course patient has received an EGD and colonoscopy that have revealed a Dieulafoy lesion. His aspirin and Pradaxa were held initially. Patient's hospital course was complicated with sepsis, which was suspected to be from his left foot ulceration. Patient was started on broad-spectrum antibiotics with vancomycin and Zosyn. Patient was seen and examined at the bedside. Visually impaired did not appear to be in any distress, is oriented to person, place and time. Denies any nausea, vomiting, chest pain, shortness breath, palpitations, it only have any abdominal pain, diarrhea, or urinary discomfort. Yesterday patient had debridement of his left foot ulcers with Dr. Abbott. Objective: Vitals (See below) General: Patient is laying in bed, appears to be comfortable, drowsy but wakes, oriented to person, place and time HEENT: Normocephalic and atraumatic CVS: +S1S2 Lungs: There appears to be fair air entry bilaterally without any evidence of wheezing, crackles or rhonchi Abdomen: Soft without any distention or tenderness Extremities: No evidence of edema. Left foot status post debridement dressing in place Imaging: CT cervical spine 03/18: No acute fracture. CT head 03/18: No acute hemorrhage or calvarial fracture. Carotid duplex US 03/18: No hemodynamically significant areas of narrowing or stenosis appreciated. Based on set standards narrowing falls within the less than 50% range. Foot XR 03/18: Extensive arthritic changes as described above. Areas of soft tissue swelling with suspected ulceration No obvious periosteal reaction or acute osseous changes to identify osteomyelitis. Knee XR 03/18: Moderate osteoarthritis left knee with possible loose bodies and lateral compartment spurring and joint space narrowing. No fracture or other acute bony abnormality.. CXR 03/19: No acute cardiopulmonary process appreciated. CT head 03/21: Moderate involutional changes, no acute intracranial abnormality. CXR 03/21: New infiltrates involving the left mid to lower lung zone. CT abdomen / pelvis 03/21: 1. High density structure of uncertain etiology in the stomach which may be intraluminal or intramural. It may be an ingested foreign body but correlate wit h any prior procedure in the stomach. 2. Diffuse thickening of the gastric rugal folds and multiple perigastric and perisplenic varices. 3. Diffuse atrophy of the pancreas with calcifications in the residual head of the pancreas, likely the sequela of chronic pancreatitis. 4. Chronic scarring and mild atrophy of the kidneys. Nonobstructing stones in the left kidney. 5. Nonspecific left inguinal and left iliac chain lymphadenopathy. Correlate with any infectious or neoplastic processes in the left lower extremity. 6. Fractures of the transverse processes of L2 and L3, of indeterminate age, possibly acute. CTA chest 03/21: 1. No evidence of acute pulmonary embolism. 2. Fracture of the left 10th rib posteriorly which appears acute and fractures of the left transverse processes of L1 and L2 which may be acute as well. 3. Small left pleural effusion but no pneumothorax. 4. Mild volume loss and small peripheral density in the in the left lung, likely atelectasis. Assessment and plan: Sepsis - likely 2/2 bilateral heel ulcers, possibly 2/2 pneumonia - Patient was hypotensive, tachycardic, hypothermic and hypoglycemic on 03/21 was transitioned to the ICU - Currently patient has normal blood pressure - Leukocytosis has resolved - Blood cultures 03/18: No growth at 72 hours - Blood cultures 03/21: No growth at 24 hours - Respiratory panel. 03/18: Negative - MRSA screen negative - Imaging reviewed above - Will start Amoxicillin and Doxycycline; Will DC Vancomycin and Zosyn (Day #3) - Podiatry on consult; status post bedside debridement 03/[address] Abbott - Advanced wound care consultation appreciate their input Microcytic anemia / Symptomatic anemia - likely 2/2 acute GI bleed - 2/2 Dieulafoy lesion - No further reported episodes of bleeding - Hemodynamically stable - H&H remains stable - s/p 3 units PRBC - c/w Protonix s/p Acute metabolic encephalopathy - Currently patient is fully oriented to person, place and time - No focal neurologic deficits noted - Imaging noted above HTN - Blood pressure mildly elevated this morning - c/w Metoprolol succinate Diastolic CHF - Likely 2/2 Alcoholic cardiomyopathy - Hx of Pulmonary HTN - No evidence of exacerbation Paroxysmal A. fib - Will resume metoprolol - Off anticoagulation given recent GI bleed / transfusion requirement DLP - c/w pravastatin Pseudohyponatremia - Corrected sodium of 141 IDDM2 with hypoglycemia and hyperglycemia - Patient's blood sugars remain elevated - Will increase dose Levemir - c/w ISS CKD3 - Cr appears to be at baseline Chronic COPD - Chronic hypoxic respiratory failure; patient uses 2 L nasal cannula at baseline - No evidence of exacerbation - Continue with inhaled therapy as ordered Depression / Anxiety - c/w Alprazolam PRN - Will resume Fluoxetine, Bupropion and Quetiapine today Neuropathy Seizure disorder - c/w Divalproex Chronic pain 2/2 DDD - c/w Tylenol pRN DVT prophylaxis - c/w TEDs/Sequentials Disposition: - s/p Debridement - c/w PT and OT - Discussed with discharge home with services tomorrow Rubens GUERRERO I+O VSRubens I+O Laboratory Tests 03/22/21 11:57 03/23/21 05:40 Vital Signs Date Time Temp Pulse Resp B/P (MAP) Pulse Ox O2 Delivery O2 Flow Rate FiO2 03/23/21 09:21 87 145/78 03/23/21 06:45 2.0 03/23/21 06:00 97.6 19 98 Room Air I&O- Last 24 Hours up to 6 AM 03/23/21 06:00 Intake Total 1880 ml Output Total 400 ml Balance 1480 ml GAYATRI BOSWELL MD Mar 23, 2021 10:28
[2021-03-23] MEDS: buPROPion **XL** TABLET 150MG (WELLBUTRIN XL) PO SCH (12:20)
[2021-03-23] MEDS: FLUoxetine 20 MG CAP PO SCH (12:20)
[2021-03-23] MEDS: QUEtiapine FUMARATE 25 MG TAB PO SCH ×2 (12:21→21:36)
[2021-03-23 14:00] VITALS: BP 147/83
--- NOTE | 2021-03-23 16:42 | CR ---
CONSULTATION DATE: 03/21/2021 BRIEF HISTORY OF PRESENT ILLNESS: The patient is a 70-year-old male who presents with congestive heart failure, hypertension, chronic obstructive pulmonary disease, multiple medical issues and essentially had some syncope issues. He was found to have anemia, leukocytosis, and was transferred to the hospital for additional evaluation. The patient has some diabetic foot wounds and Podiatry is not available for a consultation and I was asked to see him for possible contribution of his foot wounds to his leukocytosis and sepsis. PAST MEDICAL HISTORY: The patient's past medical history is significant for: 1. History of diabetes mellitus. 2. History of atrial fibrillation. 3. Chronic obstructive pulmonary disease. 4. Congestive heart failure. 5. Gastroesophageal reflux disease. 6. History of asthma. 7. History of gout. 8. History of squamous cell cancer. 9. History of COVID. 10. History of cardiomyopathy. 11. History of chronic kidney disease. PAST SURGICAL HISTORY: The patient's past surgical history is significant for: 1. Hip replacement. 2. Colonoscopy. 3. Upper endoscopies. 4. Hernia repair. PHYSICAL EXAMINATION: The patient has had encephalopathy and thus his physical exam is attenuated. LUNGS: Clear anteriorly. HEART: Regular with multiple irregular beats. ABDOMEN: Soft, nontender. EXTREMITIES: Good capillary refill bilaterally. There is no significant cellulitis. He has several ulcers that are ranging from superficial to deep all across both feet, but I am not seeing any evidence of significant underlying necrosis or source for sepsis. IMPRESSION AND PLAN: The patient has chronic wounds that have been seen by Podiatry as well as the [facility] in the past. 1. At this point I would recommend continuing with current treatment. 2. Would recommend reevaluation by Podiatry once they are available next week. 3. Continue with local dressing changes. 4. No need for surgical intervention at this time. Please contact me if you would like any additional recommendations or comments concerning his care.
[2021-03-23 21:33] VITALS: BP 127/68
[2021-03-23] MEDS: PRAVASTATIN 20 MG TAB PO SCH (21:36)
[2021-03-24] MEDS: LORazepam 1 MG TAB PO PRN ×3 (00:10→21:40)
[2021-03-24] MEDS: SLF 3 ML SYR IV SCH (05:24)
[2021-03-24 06:00] VITALS: BP 118/75
[2021-03-24] MEDS: SYMBICORT 80/4.5MCG INHALER 6GM INH SCH ×2 (08:06→20:27)
[2021-03-24] MEDS: HumaLOG INSULIN (NovoLOG) PER UNIT SC SCH ×4 (08:45→21:00)
[2021-03-24] MEDS: LEVEMIR (INSULIN DETEMIR) 1 UNITS/0.01ML SC SCH ×2 (08:45→21:41)
[2021-03-24] MEDS: DIVALPROEX 125 MG TAB PO SCH ×2 (08:46→21:41)
[2021-03-24] MEDS: buPROPion **XL** TABLET 150MG (WELLBUTRIN XL) PO SCH (08:46)
[2021-03-24] MEDS: FLUoxetine 20 MG CAP PO SCH (08:46)
[2021-03-24] MEDS: DOXYCYCLINE HYCLATE 100MG TABLET PO SCH ×2 (08:46→21:41)
[2021-03-24] MEDS: QUEtiapine FUMARATE 25 MG TAB PO SCH ×2 (08:46→21:40)
[2021-03-24] MEDS: LIDOCAINE 5% OINT 30GM TUBE TOP SCH (08:47)
[2021-03-24] MEDS: PANTOPRAZOLE 40MG TAB (PROTONIX) PO SCH ×2 (08:47→21:41)
[2021-03-24] MEDS: METOPROLOL SUCC (TopROL XL) 50MG **XL** TAB PO SCH (08:47)
[2021-03-24] MEDS: AUGMENTIN 875 MG TAB PO SCH ×2 (08:47→21:41)
[2021-03-24 09:39] LABS: BASO % 0.6 % (0.0-1.0); EOS # 0.3 10^3/uL (0.0-0.5); HEMATOCRIT 26.3 % (42.0-52.0); HEMOGLOBIN 8.3 g/dl (13.5-17.5); LYMPH # 1.7 10^3/uL (1.5-5.0); LYMPH % 24.5 % (24.0-44.0); MEAN CORPUSCULAR HGB CONC 31.6 g/dl (32.0-36.5); MEAN CORPUSCULAR VOLUME 79.2 fl (80.0-96.0); MONO # 0.4 10^3/uL (0.0-0.8); MONO % 6.2 % (2.0-8.0); NEUTROPHILS # 4.5 10^3/uL (1.5-8.5); NEUTROPHILS % 64.3 % (36.0-66.0); PLATELET COUNT, AUTOMATED 221 10^3/uL (150-450); RED BLOOD COUNT 3.32 10^6/uL (4.30-6.10); WHITE BLOOD COUNT 7.1 10^3/uL (4.0-10.0)
[2021-03-24] MEDS ORDERED: AMOX875T2 PO (09:49)
[2021-03-24] MEDS ORDERED: DOXY100T PO (09:49)
[2021-03-24] MEDS ORDERED: PANT40TA29 PO (09:56)
[2021-03-24 10:02] LABS: ALBUMIN 2.4 GM/DL (3.2-5.2); ALT/SGPT 11 U/L (12-78); BILIRUBIN,TOTAL 0.2 MG/DL (0.2-1.0); BLOOD UREA NITROGEN 16 MG/DL (7-18); CALCIUM LEVEL 8.6 MG/DL (8.8-10.2); CARBON DIOXIDE LEVEL 24 MEQ/L (21-32); CHLORIDE LEVEL 100 MEQ/L (98-107); CREATININE FOR GFR 0.82 MG/DL (0.70-1.30); GLOMERULAR FILTRATION RATE > 60.0 (>42); GLUCOSE, FASTING 332 MG/DL (70-100); MAGNESIUM LEVEL 1.3 MG/DL (1.8-2.4); POTASSIUM SERUM 4.6 MEQ/L (3.5-5.1); SODIUM LEVEL 132 MEQ/L (136-145)
[2021-03-24] MEDS: MAG SULF 1GM/100ML (MAG RUN) 1 GM in IV 1 EA IV SCH ×2 (11:36→12:30)
--- NOTE | 2021-03-24 13:24 | IPNPDOC ---
Text Note Date of Service The patient was seen on 03/24/21. NOTE Subjective: Patient is a 70-year-old male with a PMHx of HTN, Diastolic CHF, Alcoholic cardiomyopathy, Pulmonary HTN, Paroxysmal A. fib, DLP, IDDM2, CKD3, COPD, Depression, Neuropathy, Chronic pain 2/2 DDD, Gout, Diabetic ulcers bilaterally who presented to the hospital after a syncopal episode which was suspected to be from symptomatic anemia. On arrival to emergency room, patient had a hemoglobin of 7. Patient was admitted to the hospital service for suspected GI bleeding. Throughout hospital course patient has received an EGD and colonoscopy that have revealed a Dieulafoy lesion. His aspirin and Pradaxa were held initially. Patient's hospital course was complicated with sepsis, which was suspected to be from his left foot ulceration. Patient was started on broad-spectrum antibiotics with vancomycin and Zosyn. Has been transitioned to oral antibiotics on 03/23/2021. Patient was seen and examined at the bedside. Patient reports that he feels relatively well. He denies any nausea, vomiting, chest pain, shortness breath, palpitations. Reports that his feet feel relatively fine. Objective: Vitals (See below) General: She is sitting up in bed, appears to be comfortable, not in any acute distress, oriented to person, place and time HEENT: AT, [place] CVS: +S1S2 Lungs: No evidence of wheezing, rhonchi or crackles. An air entry is fair bilaterally Abdomen: Soft without distention or tenderness Extremities: Left foot with dressing in place, no edema Imaging: CT cervical spine 03/18: No acute fracture. CT head 03/18: No acute hemorrhage or calvarial fracture. Carotid duplex US 03/18: No hemodynamically significant areas of narrowing or stenosis appreciated. Based on set standards narrowing falls within the less than 50% range. Foot XR 03/18: Extensive arthritic changes as described above. Areas of soft tissue swelling with suspected ulceration No obvious periosteal reaction or acute osseous changes to identify osteomyelitis. Knee XR 03/18: Moderate osteoarthritis left knee with possible loose bodies and lateral compartment spurring and joint space narrowing. No fracture or other acute bony abnormality.. CXR 03/19: No acute cardiopulmonary process appreciated. CT head 03/21: Moderate involutional changes, no acute intracranial abnormality. CXR 03/21: New infiltrates involving the left mid to lower lung zone. CT abdomen / pelvis 03/21: 1. High density structure of uncertain etiology in the stomach which may be intraluminal or intramural. It may be an ingested foreign body but correlate with any prior procedure in the stomach. 2. Diffuse thickening of the gastric rugal folds and multiple perigastric and perisplenic varices. 3. Diffuse atrophy of the pancreas with calcifications in the residual head of the pancreas, likely the sequela of chronic pancreatitis. 4. Chronic scarring and mild atrophy of the kidneys. Nonobstructing stones in th e left kidney. 5. Nonspecific left inguinal and left iliac chain lymphadenopathy. Correlate with any infectious or neoplastic processes in the left lower extremity. 6. Fractures of the transverse processes of L2 and L3, of indeterminate age, possibly acute. CTA chest 03/21: 1. No evidence of acute pulmonary embolism. 2. Fracture of the left 10th rib posteriorly which appears acute and fractures of the left transverse processes of L1 and L2 which may be acute as well. 3. Small left pleural effusion but no pneumothorax. 4. Mild volume loss and small peripheral density in the in the left lung, likely atelectasis. Assessment and plan: Sepsis - likely 2/2 bilateral heel ulcers, possibly 2/2 pneumonia - Patient was hypotensive, tachycardic, hypothermic and hypoglycemic on 03/21 was transitioned to the ICU - BP normalized - s/p Leukocytosis - Blood cultures 03/18: No growth at 5 days - Blood cultures 03/21: No growth at 72 hours - Respiratory panel. 03/18: Negative - MRSA screen negative - Imaging reviewed above - c/w Amoxicillin and Doxycycline; Will DC Vancomycin and Zosyn (Antibiotic day #4) - Podiatry on consult; s/p bedside debridement 03/[address] Abbott - Advanced wound care consultation appreciate their input Microcytic anemia / Symptomatic anemia - likely 2/2 acute GI bleed - 2/2 Dieulafoy lesion - No further reported episodes of bleeding - Hemodynamically stable - H&H remains stable - s/p EGD on 03/[address] Salcedo; Dieulafoy lesion with spurting bleeding / stigmata of recent bleeding @ proximal anterior wall of the gastric body; s/p 4 hemostatic clips - s/p 3 units PRBC - Will get Liver US with Doppler to evaluate for thrombosis - c/w Protonix - Gastroenterology on consultation; discussed case, today will resume aspirin 81 on discharge, however, will continue to hold Pradaxa for the next 2 weeks until seen and evaluated by cardiology s/p Acute metabolic encephalopathy - Currently patient is fully oriented to person, place and time - No focal neurologic deficits noted - Imaging noted above HTN - Blood pressure mildly elevated this morning - c/w Metoprolol succinate Diastolic CHF - Likely 2/2 Alcoholic cardiomyopathy - Hx of Pulmonary HTN - No evidence of exacerbation Paroxysmal A. fib - c/w metoprolol - Off anticoagulation given recent GI bleed / transfusion requirement - Will have outpatient follow-up with cardiology within the next 7 days for resumption of anticoagulation in 2 weeks DLP - c/w pravastatin Pseudohyponatremia IDDM2 with hypoglycemia and hyperglycemia - Patient's blood sugars remain elevated - c/w Adjusted dose of Levemir - c/w ISS CKD3 - Cr appears to be at baseline Chronic COPD - Chronic hypoxic respiratory failure; patient uses 2 L nasal cannula at [facility] - No evidence of exacerbation - c/w inhaled therapy as ordered Depression / Anxiety - c/w Alprazolam PRN - c/w Fluoxetine, Bupropion and Quetiapine Neuropathy Seizure disorder - c/w Divalproex Chronic pain 2/2 DDD - c/w Tylenol pRN DVT prophylaxis - c/w TEDs/Sequentials Disposition: - s/p Debridement - c/w PT and OT - Will transition to ALC status today - Anticipate discharge home tomorrow VS,Fishbone, I+O VS, Fishbone, I+O Laboratory Tests 03/24/21 09:18 Vital Signs Date Time Temp Pulse Resp B/P (MAP) Pulse Ox O2 Delivery O2 Flow Rate FiO2 03/24/21 06:00 98.1 82 18 118/75 (89) 98 Room Air 03/23/21 06:45 2.0 I&O- Last 24 Hours up to 6 AM 03/24/21 05:59 Intake Total 2210 ml Balance 2210 ml GAYATRI BOSWELL MD Mar 24, 2021 13:24
[2021-03-24 14:00] VITALS: BP 121/76
--- NOTE | 2021-03-24 17:02 | REP ---
INDICATION: Evaluate flow through portal veins. COMPARISON: None. TECHNIQUE: Real-time sonographic evaluation of ABDOMEN PERFORMED, WITH DUPLEX DOPPLER EVALUATION OF PORTAL VASCULATURE. FINDINGS: Gallbladder demonstrates no evidence of stone, however, there appears to be a 6 mm polyp along the inner wall. There is no gallbladder wall thickening. There is no intrahepatic or extrahepatic biliary dilatation, common bile duct measures 4 mm in maximum diameter. The liver demonstrates homogeneous echotexture with no gross mass. The pancreas is not seen due to overlying bowel gas. Spleen is enlarged, the measurements are 13.5 x 13.9 x 7.8 cm, splenic index 1464. There is no hydronephrosis of either kidney. A cyst in the upper pole the left kidney measures 1.8 cm in diameter. There appears to be a 9 mm stone in the mid left kidney. The right kidney measures 9.0 x 5.2 x 5.5 cm. Left renal dimensions are 11.4 x 5.0 x 5.3 cm. The abdominal aorta is normal in caliber with no aneurysm. No free fluid is seen. The main portal vein measures 15 mm in diameter. The splenic vein and portal veins demonstrate normal direction of flow. There is no portal vein thrombosis. Hepatic veins are patent with no thrombus. Patent main hepatic artery demonstrates peak systolic velocity of 55.3 centimeters/second. Resistive index 0.83. Superior mesenteric vein and central splenic vein could not be visualized. There is [id number] portalization of the hepatic vein waveforms. Main hepatic artery waveform is triphasic with somewhat high resistance. A left abdominal venous structure crosses anterior to the celiac axis and posterior to the left lobe of the liver and drains into the main portal vein. IMPRESSION: Gallbladder polyp 6 mm. No biliary dilatation. Splenomegaly. No ascites. Intrarenal calculus left kidney. Normal direction of flow in the portal veins and hepatic veins with no thrombus. Increased diameter of the main portal vein suggests portal hypertension. Collateral venous structure left abdomen drains into the main portal vein. Portal vasculature demonstrates normal direction of flow with no thrombosis. No evidence of hepatic vein thrombosis. <Electronically signed by Deandre Otero > 03/24/21 [id number]
[2021-03-24 20:33] VITALS: BP 131/78
[2021-03-24] MEDS: PRAVASTATIN 20 MG TAB PO SCH (21:41)
[2021-03-25 06:06] LABS: BASO % 0.5 % (0.0-1.0); EOS # 0.3 10^3/uL (0.0-0.5); EOS % 4.8 % (0.0-3.0); HEMOGLOBIN 8.9 g/dl (13.5-17.5); LYMPH % 35.9 % (24.0-44.0); MEAN CORPUSCULAR HEMOGLOBIN 24.9 pg (27.0-33.0); MEAN CORPUSCULAR HGB CONC 31.8 g/dl (32.0-36.5); MEAN CORPUSCULAR VOLUME 78.2 fl (80.0-96.0); MONO # 0.4 10^3/uL (0.0-0.8); MONO % 7.5 % (2.0-8.0); NEUTROPHILS # 2.9 10^3/uL (1.5-8.5); NEUTROPHILS % 50.9 % (36.0-66.0); PLATELET COUNT, AUTOMATED 230 10^3/uL (150-450); RED BLOOD COUNT 3.58 10^6/uL (4.30-6.10); WHITE BLOOD COUNT 5.6 10^3/uL (4.0-10.0)
[2021-03-25 06:09] VITALS: BP 111/61
[2021-03-25 06:24] LABS: BLOOD UREA NITROGEN 17 MG/DL (7-18); CALCIUM LEVEL 8.7 MG/DL (8.8-10.2); CARBON DIOXIDE LEVEL 28 MEQ/L (21-32); CHLORIDE LEVEL 104 MEQ/L (98-107); CREATININE FOR GFR 0.76 MG/DL (0.70-1.30); GLOMERULAR FILTRATION RATE > 60.0 (>42); GLUCOSE, FASTING 175 MG/DL (70-100); MAGNESIUM LEVEL 1.6 MG/DL (1.8-2.4); POTASSIUM SERUM 4.3 MEQ/L (3.5-5.1); SODIUM LEVEL 137 MEQ/L (136-145)
[2021-03-25] MEDS: SYMBICORT 80/4.5MCG INHALER 6GM INH SCH (08:02)
[2021-03-25] MEDS: LEVEMIR (INSULIN DETEMIR) 1 UNITS/0.01ML SC SCH (08:15)
[2021-03-25] MEDS: HumaLOG INSULIN (NovoLOG) PER UNIT SC SCH (08:16)
[2021-03-25] MEDS: FLUoxetine 20 MG CAP PO SCH (08:17)
[2021-03-25] MEDS: AUGMENTIN 875 MG TAB PO SCH (08:17)
[2021-03-25] MEDS: MAG SULF 1GM/100ML (MAG RUN) 1 GM in IV 1 EA IV SCH ×2 (08:17→09:30)
[2021-03-25] MEDS: DIVALPROEX 125 MG TAB PO SCH (08:18)
[2021-03-25] MEDS: QUEtiapine FUMARATE 25 MG TAB PO SCH (08:18)
[2021-03-25] MEDS: PANTOPRAZOLE 40MG TAB (PROTONIX) PO SCH (08:18)
[2021-03-25] MEDS: buPROPion **XL** TABLET 150MG (WELLBUTRIN XL) PO SCH (08:18)
[2021-03-25] MEDS: DOXYCYCLINE HYCLATE 100MG TABLET PO SCH (08:18)
[2021-03-25] MEDS: LIDOCAINE 5% OINT 30GM TUBE TOP SCH (08:19)
[2021-03-25 08:21] VITALS: BP 128/79
[2021-03-25] MEDS: METOPROLOL SUCC (TopROL XL) 50MG **XL** TAB PO SCH (08:21)
[2021-03-25] MEDS ORDERED: TOUJ1.2I SC (09:04)
--- NOTE | 2021-03-25 11:27 | DS.PDOC ---
Discharge Summary General Date of Admission March 17, 2021 at 11:45 Date of Discharge 03/25/2021 Discharge Summary PROCEDURES PERFORMED DURING STAY: EGD on 03/[address] Salcedo; Dieulafoy lesion with spurting bleeding / stigmata of recent bleeding @ proximal anterior wall of the gastric body; s/p 4 hemostati c clips Bedside debridement with Dr. Abbott on 03/24 ADMITTING DIAGNOSES / DISCHARGE DIAGNOSES: Sepsis - likely 2/2 bilateral heel ulcers, possibly 2/2 pneumonia Microcytic anemia / Symptomatic anemia - likely 2/2 acute GI bleed - 2/2 Dieulafoy lesion s/p Acute metabolic encephalopathy HTN Diastolic CHF Paroxysmal A. fib DLP s/p Pseudohyponatremia IDDM2 with hypoglycemia and hyperglycemia CKD3 Chronic COPD Depression / Anxiety Neuropathy Seizure disorder Chronic pain 2/2 DDD DVT prophylaxis COMPLICATIONS/CHIEF COMPLAINT: Syncope HISTORY OF PRESENT ILLNESS: Patient is a 70-year-old male with a PMHx of HTN, Diastolic CHF, Alcoholic cardiomyopathy, Pulmonary HTN, Paroxysmal A. fib, DLP, IDDM2, CKD3, COPD, Depression, Neuropathy, Chronic pain 2/2 DDD, Gout, Diabetic ulcers bilaterally who presented to the hospital after a syncopal episode which was suspected to be from symptomatic anemia. On arrival to emergency room, patient had a hemoglobin of 7. Patient was admitted to the hospital service for suspected GI bleeding. Throughout hospital course patient has received an EGD and colonoscopy that have revealed a Dieulafoy lesion. His aspirin and Pradaxa were held initially. Patient's hospital course was complicated with sepsis, which was suspected to be from his left foot ulceration. Patient was started on broad-spectrum antibiotics with vancomycin and Zosyn. Has been transitioned to oral antibiotics on 03/23/2021. HOSPITAL COURSE: Sepsis - likely 2/2 bilateral heel ulcers, possibly 2/2 pneumonia - Patient was hypotensive, tachycardic, hypothermic and hypoglycemic on 03/21 was transitioned to the ICU - BP has remained normalized - s/p Leukocytosis - Blood cultures 03/18: No growth at 5 days - Blood cultures 03/21: No growth at 72 hours - Respiratory panel. 03/18: Negative - MRSA screen negative - Imaging reviewed above - c/w Amoxicillin and Doxycycline; Will DC Vancomycin and Zosyn (Antibiotic day #5) - will complete antibiotic course as an outpatient - Podiatry on consult; s/p bedside debridement 03/[address] Abbott - Will have outpatient follow-up with podiatry and Dr. Woodard within the next 7 days Microcytic anemia / Symptomatic anemia - likely 2/2 acute GI bleed - 2/2 Dieulafoy lesion - No further reported episodes of bleeding - Hemodynamically stable - H&H remains stable - s/p EGD on 03/[address] Salcedo; Dieulafoy lesion with spurting bleeding / stigmata of recent bleeding @ proximal anterior wall of the gastric body; s/p 4 hemostatic clips - s/p 3 units PRBC - Liver US with Doppler noted below - c/w Protonix - Gastroenterology on consultation; Case was discussed; will resume aspirin 81 on discharge, however will continue to hold Pradaxa for the next 2 weeks until seen and evaluated by cardiology - Will have outpatient follow-up with gastric urology within the next 7 days s/p Acute metabolic encephalopathy - Currently patient is fully oriented to person, place and time - No focal neurologic deficits noted - Imaging noted above HTN - Blood pressure mildly elevated this morning - c/w Metoprolol succinate Diastolic CHF - Likely 2/2 Alcoholic cardiomyopathy - Hx of Pulmonary HTN - No evidence of exacerbation Paroxysmal A. fib - c/w metoprolol - Off anticoagulation given recent GI bleed / transfusion requirement - Will have outpatient follow-up with cardiology within the next 7 days for resumption of anticoagulation in 2 weeks DLP - c/w Pravastatin s/p Pseudohyponatremia IDDM2 with hypoglycemia and hyperglycemia - Patient's blood sugars remain elevated - c/w Adjusted dose of Levemir - c/w ISS CKD3 - Cr appears to be at baseline Chronic COPD - Chronic hypoxic respiratory failure; patient uses 2 L nasal cannula at baseline - No evidence of exacerbation - c/w inhaled therapy as ordered Depression / Anxiety - c/w Alprazolam PRN - c/w Fluoxetine, Bupropion and Quetiapine Neuropathy Seizure disorder - c/w Divalproex Chronic pain 2/2 DDD - c/w Tylenol PRN DVT prophylaxis - c/w TEDs/Sequentials DISCHARGE MEDICATIONS: Please see below. ALLERGIES: Please see below. PHYSICAL EXAMINATION ON DISCHARGE: Vitals (See below) General: Patient is laying in bed, appears to be relatively comfortable without any acute distress, is awake and alert, oriented to person, place and time HEENT: Normocephalic and atraumatic CVS: +S1S2 Lungs: There appears to be fair air entry bilaterally without any evidence of wheezing, crackles or rhonchi Abdomen: Remains soft without any appreciated tenderness or distention Extremities: Left foot with dressing in place. Lower extremities do not reveal any significant edema LABORATORY DATA: Please see below. IMAGING: CT cervical spine 03/18: No acute fracture. CT head 03/18: No acute hemorrhage or calvarial fracture. Carotid duplex US 03/18: No hemodynamically significant areas of narrowing or stenosis appreciated. Based on set standards narrowing falls within the less than 50% range. Foot XR 03/18: Extensive arthritic changes as described above. Areas of soft tissue swelling with suspected ulceration No obvious periosteal reaction or acute osseous changes to identify osteomyelitis. Knee XR 03/18: Moderate osteoarthritis left knee with possible loose bodies and lateral compartment spurring and joint space narrowing. No fracture or other acute bony abnormality.. CXR 03/19: No acute cardiopulmonary process appreciated. CT head 03/21: Moderate involutional changes, no acute intracranial abnormality. CXR 03/21: New infiltrates involving the left mid to lower lung zone. CT abdomen / pelvis 03/21: 1. High density structure of uncertain etiology in the stomach which may be intraluminal or intramural. It may be an ingested foreign body but correlate with any prior procedure in the stomach. 2. Diffuse thickening of the gastric rugal folds and multiple perigastric and perisplenic varices. 3. Diffuse atrophy of the pancreas with calcifications in the residual head of the pancreas, likely the sequela of chronic pancreatitis. 4. Chronic scarring and mild atrophy of the kidneys. Nonobstructing stones in the left kidney. 5. Nonspecific left inguinal and left iliac chain lymphadenopathy. Correlate with any infectious or neoplastic processes in the left lower extremity. 6. Fractures of the transverse processes of L2 and L3, of indeterminate age, possibly acute. CTA chest 03/21: 1. No evidence of acute pulmonary embolism. 2. Fracture of the left 10th rib posteriorly which appears acute and fractures of the left transverse processes of L1 and L2 which may be acute as well. 3. Small left pleural effusion but no pneumothorax. 4. Mild volume loss and small peripheral density in the in the left lung, likely atelectasis. Liver US 03/24: Gallbladder polyp 6 mm. No biliary dilatation. Splenomegaly. No ascites. Intrarenal calculus left kidney. Normal direction of flow in the portal veins and hepatic veins with no thrombus. Increased diameter of the main portal vein suggests portal hypertension. Collateral venous structure left abdomen drains into the main portal vein. Portal vasculature demonstrates normal direction of flow with no thrombosis. No evidence of hepatic vein thrombosis. ACTIVITY: [As tolerated]. DISCHARGE PLAN: Follow-up with primary care provider within the next 7 days Follow-up with podiatry and gastroenterology within the next 7 days Remain compliant with treatment plan and medications Return to the ER if you experience any problems DISPOSITION: [facility] DISCHARGE CONDITION: [Stable]. TIME SPENT ON DISCHARGE: 35 minutes. Vital Signs/I&Os Vital Signs Date Time Temp Pulse Resp B/P (MAP) Pulse Ox O2 Delivery O2 Flow Rate FiO2 03/25/21 08:21 89 128/79 03/25/21 06:09 97.6 20 95 Room Air 03/24/21 14:00 2.0 I&O- Last 24 Hours up to 6 AM 03/25/21 06:00 Intake Total 2360 ml Output Total 900 ml Balance 1460 ml Laboratory Data Labs 24H Laboratory Tests 2 03/24/21 11:40: Bedside Glucose (Misc Panel) 309H 03/24/21 16:43: Bedside Glucose (Misc Panel) 30*L 03/24/21 17:44: Bedside Glucose (Misc Panel) 99 03/24/21 20:38: Bedside Glucose (Misc Panel) 165H 03/25/21 05:36: Immature Granulocyte % (Auto) 0.4, Neutrophils (%) (Auto) 50.9, Lymphocytes (%) (Auto) 35.9, Monocytes (%) (Auto) 7.5, Eosinophils (%) (Auto) 4.8H, Basophils (%) (Auto) 0.5, Neutrophils # (Auto) 2.9, Lymphocytes # (Auto) 2.0, Monocytes # (Auto) 0.4, Eosinophils # (Auto) 0.3, Basophils # (Auto) 0.0, Nucleated Red Blood Cells % (auto) 0.0, Anion Gap 5L, Glomerular Filtration Rate > 60.0, C alcium Level 8.7L, Magnesium Level 1.6L CBC/BMP Laboratory Tests 03/25/21 05:36 FSBS Laboratory Tests Test 03/24/21 11:40 03/24/21 16:43 03/24/21 17:44 03/24/21 20:38 Range/Units Bedside Glucose (Misc Panel) 309 30 99 165 83-110 MG/DL Microbiology Microbiology 03/21/21 Blood Culture - Preliminary, Resulted No Growth after 72 hours. All specime... 03/21/21 Blood Culture - Preliminary, Resulted No Growth after 72 hours. All specime... 03/18/21 Respiratory Virus Panel (PCR) (PAPO) - Final, Complete 03/18/21 Blood Culture - Final, Complete NO GROWTH AFTER 5 DAYS Discharge Medications Scheduled Allopurinol (Allopurinol) 100 Mg Tab, 50 MG PO DAILY, (Reported) Amoxicillin/Potassium Clav (Amox-Clav 875-125 mg Tablet) 1 Each Tablet, 875 MG PO BID Aspirin (Aspirin EC) 81 Mg Tablet.dr, 81 MG PO DAILY, (Reported) Budesonide/Formoterol (Symbicort 80-4.5 Mcg Inhaler) 60 Puff/Inhaler Aers, 2 PUFF INH BID, (Reported) Bupropion HCl (Bupropion Xl) 300 Mg Tab.er.24h, 300 MG PO DAILY, (Reported) Cholecalciferol (Vitamin D3) (Vitamin D3) 1,000 Unit Tablet, 1,000 UNITS PO DAILY, (Reported) Cyanocobalamin (Vitamin B-12) (Vitamin B-12) 1,000 Mcg Tab, 1,000 MCG PO DAILY, (Reported) Divalproex Sodium (Depakote) 125 Mg Tablet.dr, 125 MG PO BID, (Reported) Doxycycline Hyclate (Doxycycline Hyclate) 100 Mg Tablet, 100 MG PO BID Fluoxetine Hcl (Fluoxetine HCl) 20 Mg Cap, 20 MG PO DAILY, (Reported) Folic Acid (Folic Acid) 1 Mg Tablet, 1 MG PO DAILY, (Reported) Insulin Glargine,Hum.rec.anlog (Loraine Rodríguez) 300 Unit/1 Ml Insuln.pen, 20 UNIT SC BID Insulin Human Lispro (Humalog) 1 Units/0.01 Ml Inj, 1 DOSE SC AC, (Reported) PER SLIDING SCALE Metoprolol Succinate (Kapspargo Sprinkle) 50 Mg Cap.spr.24, 50 MG PO DAILY, (Reported) HOLD IF SBP<100 OR HR<60 Pantoprazole Sodium (Pantoprazole Sodium) 40 Mg Tablet.dr, 40 MG PO BID Pravastatin Sodium (Pravastatin Sodium) 20 Mg Tablet, 20 MG PO QPM, (Reported) TAKES AT 1700 Quetiapine Fumarate (Quetiapine Fumarate) 25 Mg Tablet, 25 MG PO BID, (Reported) Salicylic Acid (Selsun Blue) 325 Ml Shampoo, 1 DOSE EXT QWEEK, (Reported) SUNDAYS Thiamine HCl (Thiamine HCl) 100 Mg Tablet, 100 MG PO DAILY, (Reported) Scheduled PRN Acetaminophen (Tylenol Extra Strength) 500 Mg Tablet, 1,000 MG PO Q8H PRN for PAIN OR DISCOMFORT, (Reported) Glucagon,Human Recombinant (Glucagon Emergency Kit) 1 Mg Vial, 1 MG IM ASDIRECTED PRN for LOW BLOOD SUGAR, (Reported) Hydroxyzine Pamoate (Hydroxyzine Pamoate) 50 Mg Capsule, 50 MG PO Q4H PRN for ANXIETY, (Reported) Lorazepam (Lorazepam) 1 Mg Tablet, 1 MG PO Q8H PRN for ANXIETY, (Reported) Allergies Coded Allergies: No Known Allergies (Verified , 10/27/20) GAYATRI BOSWELL MD Mar 25, 2021 11:27
== END 2021-03-25 11:00 | DRG 377 ==
LOC: M PCU 11:45 → M MS5PR 03-20 14:40 → M ICU 03-21 04:32 → M MS5PR 03-21 16:18
PROVIDERS: ADMIT Family Medicine; ATTEND Internal Medicine
PROC: 30233N1 Transfusion of Nonautologous Red Blood Cells into Peripheral Vein, Percutaneous Approach (ICD-10-PCS; 2021-03-18)
PROC: 0W3P8ZZ Control Bleeding in Gastrointestinal Tract, Via Natural or Artificial Opening Endoscopic (ICD-10-PCS; principal; 2021-03-19 08:30)
DX: K31.82 Dieulafoy lesion (hemorrhagic) of stomach and duodenum (principal); G93.41 Metabolic encephalopathy; A41.9 Sepsis, unspecified organism; J18.9 Pneumonia, unspecified organism; D62 Acute posthemorrhagic anemia; I50.32 Chronic diastolic (congestive) heart failure; I48.20 Chronic atrial fibrillation, unspecified; J44.0 Chronic obstructive pulmonary disease with (acute) lower respiratory infection; J96.11 Chronic respiratory failure with hypoxia; I42.6 Alcoholic cardiomyopathy; E87.1 Hypo-osmolality and hyponatremia; L97.429 Non-pressure chronic ulcer of left heel and midfoot with unspecified severity; L97.419 Non-pressure chronic ulcer of right heel and midfoot with unspecified severity; E11.40 Type 2 diabetes mellitus with diabetic neuropathy, unspecified; E11.621 Type 2 diabetes mellitus with foot ulcer; E87.5 Hyperkalemia; F03.90 Unspecified dementia, unspecified severity, without behavioral disturbance, psychotic disturbance, mood disturbance, and anxiety; E11.649 Type 2 diabetes mellitus with hypoglycemia without coma; E11.65 Type 2 diabetes mellitus with hyperglycemia; N18.30 Chronic kidney disease, stage 3 unspecified; I48.0 Paroxysmal atrial fibrillation; F32.9 Major depressive disorder, single episode, unspecified; F41.9 Anxiety disorder, unspecified; G40.909 Epilepsy, unspecified, not intractable, without status epilepticus; I27.20 Pulmonary hypertension, unspecified; M10.9 Gout, unspecified; Z79.899 Other long term (current) drug therapy; Z79.82 Long term (current) use of aspirin; Z79.4 Long term (current) use of insulin; K21.9 Gastro-esophageal reflux disease without esophagitis; E11.21 Type 2 diabetes mellitus with diabetic nephropathy; Z87.891 Personal history of nicotine dependence; K44.9 Diaphragmatic hernia without obstruction or gangrene; Z89.429 Acquired absence of other toe(s), unspecified side

== ENCOUNTER → 2021-10-25 | Outpatient (REF) | payer MEDICARE, OTHER ==
[~2021-10-25] MED LIST changes: +ACET-897 PO; +AMOX875T2 PO; +BACT800T5 PO; +DEPA1TAB PO; +DOXY100T PO; +HYDR50CA2 PO; +KAPS50CA PO; +LORA1TAB4 PO; -MAGN400T3 PO; +MAGN400T33 PO; +PANT40TA29 PO; +PRAV20TA2 PO; +QUET1TAB17 PO; +THIA100T7 PO; +TOUJ1.2I SC; +ZINC220CA PO; +[UNRECOGNIZED DRUG - OTHER] EXT
== END ==
LOC: M SFHCADAM 12:33
PROVIDERS: ATTEND Physician Assistant
DX: E11.21 Type 2 diabetes mellitus with diabetic nephropathy (principal); E11.621 Type 2 diabetes mellitus with foot ulcer; F29 Unspecified psychosis not due to a substance or known physiological condition; N52.9 Male erectile dysfunction, unspecified; R41.0 Disorientation, unspecified

== ENCOUNTER → 2021-10-27 | Outpatient (REF) | payer MEDICARE, OTHER ==
[~2021-10-27] MED LIST changes: -CEFD1CAP8 PO; +CEFD300C41 PO; +FLUO-96 PO; -FLUO20CA20 PO; -LISI10TA15 PO; +LISI10TA24 PO
[2021-10-27 14:51] LABS: HEMATOCRIT 25.1 % (42.0-52.0); HEMOGLOBIN 7.4 g/dl (13.5-17.5); MEAN CORPUSCULAR HGB CONC 29.5 g/dl (32.0-36.5); PLATELET COUNT, AUTOMATED 206 10^3/uL (150-450); RED BLOOD COUNT 3.22 10^6/uL (4.30-6.10)
[2021-10-27 14:54] LABS: APPEARANCE, URINE CLEAR (CLEAR); BACTERIA, URINE AUTO NEGATIVE (NEGATIVE); BILIRUBIN, URINE AUTO NEGATIVE (NEGATIVE); BLOOD, URINE BLOOD NEGATIVE (NEGATIVE); COLOR, URINE YELLOW (YELLOW); GLUCOSE, URINE (UA) AUTO NEGATIVE (NEGATIVE); KETONE, URINE AUTO NEGATIVE (NEGATIVE); LEUKOCYTE ESTERASE, URINE AUTO NEGATIVE (NEGATIVE); NITRITE, URINE AUTO NEGATIVE (NEGATIVE); PROTEIN, URINE AUTO 2+ mg/dL (NEGATIVE); RBC, URINE AUTO 3 /HPF (0-3); SPECIFIC GRAVITY URINE AUTO 1.016 (1.002-1.035); SQUAMOUS EPITHELIAL CELL UR AU 0 /HPF (0-6); UROBILINOGEN, URINE AUTO 0.2 mg/dL (0.0-2.0); WBC, URINE AUTO 0 /HPF (0-3)
[2021-10-27 15:15] LABS: HEMOGLOBIN A1c 6.4 %
[2021-10-27 15:28] LABS: ALBUMIN 3.4 GM/DL (3.2-5.2); ALT/SGPT 22 U/L (12-78); BILIRUBIN,TOTAL 0.4 MG/DL (0.2-1.0); BLOOD UREA NITROGEN 22 MG/DL (7-18); CALCIUM LEVEL 8.6 MG/DL (8.8-10.2); CARBON DIOXIDE LEVEL 26 MEQ/L (21-32); CHLORIDE LEVEL 109 MEQ/L (98-107); CREATININE FOR GFR 1.03 MG/DL (0.70-1.30); FREE T4 1.19 NG/DL (0.76-1.46); GLOMERULAR FILTRATION RATE > 60.0 (>42); GLUCOSE, FASTING 138 MG/DL (70-100); POTASSIUM SERUM 4.8 MEQ/L (3.5-5.1); SODIUM LEVEL 142 MEQ/L (136-145); TOTAL 25(OH) VITAMIN D 27.9 NG/ML (30.0-100.0); TOTAL PROTEIN 6.6 GM/DL (6.4-8.2); VALPROIC ACID (DEPAKOTE) 26.3 UG/ML (50.0-100.0); VITAMIN B12 LEVEL 767 PG/ML
[2021-10-27 15:29] LABS: FOLATE 18.7 NG/ML
== END ==
LOC: M SFHCADAM 14:32
PROVIDERS: ATTEND Physician Assistant
DX: E11.21 Type 2 diabetes mellitus with diabetic nephropathy (principal); E11.621 Type 2 diabetes mellitus with foot ulcer; F29 Unspecified psychosis not due to a substance or known physiological condition; N52.9 Male erectile dysfunction, unspecified

== ENCOUNTER → 2021-11-22 | Outpatient (REF) | payer MEDICARE, OTHER ==
[~2021-11-22] MED LIST changes: -OMEP-221 PO; +OMEP40CA5 PO
== END ==
LOC: M SFHCPLAZ 14:51
PROVIDERS: ATTEND Physician Assistant
DX: D50.9 Iron deficiency anemia, unspecified (principal)

== ENCOUNTER → 2021-12-25 | Outpatient (REF) | payer MEDICARE, OTHER ==
[~2021-12-25] MED LIST changes: -D31000TA2 PO; -FEXO60CA PO; +FEXO60TA99 PO; +VITA100093 PO
[2021-12-25 19:02] LABS: APPEARANCE, URINE HAZY (CLEAR); BACTERIA, URINE AUTO NEGATIVE (NEGATIVE); BILIRUBIN, URINE AUTO NEGATIVE (NEGATIVE); BLOOD, URINE BLOOD NEGATIVE (NEGATIVE); COLOR, URINE YELLOW (YELLOW); GLUCOSE, URINE (UA) AUTO 3+ mg/dL (NEGATIVE); KETONE, URINE AUTO NEGATIVE (NEGATIVE); LEUKOCYTE ESTERASE, URINE AUTO NEGATIVE (NEGATIVE); MUCUS, URINE SMALL (NEGATIVE); NITRITE, URINE AUTO NEGATIVE (NEGATIVE); PROTEIN, URINE AUTO 2+ mg/dL (NEGATIVE); RBC, URINE AUTO 6 /HPF (0-3); SPECIFIC GRAVITY URINE AUTO 1.017 (1.002-1.035); SQUAMOUS EPITHELIAL CELL UR AU 0 /HPF (0-6); UROBILINOGEN, URINE AUTO 0.2 mg/dL (0.0-2.0); WBC, URINE AUTO 1 /HPF (0-3)
== END ==
LOC: M LAB REF 18:08
PROVIDERS: ATTEND Physician Assistant Medical
DX: R30.0 Dysuria (principal)

== ENCOUNTER → 2022-01-26 | Outpatient (REF) | payer MEDICARE, OTHER ==
[~2022-01-26] MED LIST changes: -ACET1TAB16 PO; +ACET300T48 PO
[2022-01-26 12:53] LABS: HEMATOCRIT 39.9 % (42.0-52.0); HEMOGLOBIN 12.5 g/dl (13.5-17.5); MEAN CORPUSCULAR HEMOGLOBIN 25.8 pg (27.0-33.0); MEAN CORPUSCULAR HGB CONC 31.3 g/dl (32.0-36.5); MEAN CORPUSCULAR VOLUME 82.4 fl (80.0-96.0); PLATELET COUNT, AUTOMATED 119 10^3/uL (150-450); RED BLOOD COUNT 4.84 10^6/uL (4.30-6.10); WHITE BLOOD COUNT 8.9 10^3/uL (4.0-10.0)
[2022-01-26 13:30] LABS: HEMOGLOBIN A1c 7.2 %
[2022-01-26 13:38] LABS: PERCENT SATURATION 30.8 % (19.7-50.0)
[2022-01-26 14:47] LABS: ANISOCYTOSIS 1+; ATYPICAL LYMPH 14 % (0-5); BASOPHILS 1 % (0-1); EOSINOPHILS 1 % (0-3); LYMPHOCYTES 48 % (16-44); METAMYELOCYTES 1 % (0-0); MONOCYTES 5 % (0-5); NEUTROPHILS 30 % (28-66); PLATELET ESTIMATE DECREASED (NORMAL)
== END ==
LOC: M SFHCADAM 10:56
PROVIDERS: ATTEND Physician Assistant
DX: D50.9 Iron deficiency anemia, unspecified (principal); I48.11 Longstanding persistent atrial fibrillation; E11.21 Type 2 diabetes mellitus with diabetic nephropathy

== ENCOUNTER → 2022-02-22 | Outpatient (REF) | payer MEDICARE, OTHER ==
[2022-02-22 13:17] LABS: HEMATOCRIT 44.7 % (42.0-52.0); HEMOGLOBIN 14.1 g/dl (13.5-17.5); MEAN CORPUSCULAR HEMOGLOBIN 27.3 pg (27.0-33.0); MEAN CORPUSCULAR HGB CONC 31.5 g/dl (32.0-36.5); MEAN CORPUSCULAR VOLUME 86.5 fl (80.0-96.0); PLATELET COUNT, AUTOMATED 121 10^3/uL (150-450); RED BLOOD COUNT 5.17 10^6/uL (4.30-6.10); WHITE BLOOD COUNT 10.3 10^3/uL (4.0-10.0)
[2022-02-22 14:18] LABS: ATYPICAL LYMPH 2 % (0-5); EOSINOPHILS 1 % (0-3); LYMPHOCYTES 55 % (16-44); MONOCYTES 4 % (0-5); NEUTROPHILS 38 % (28-66)
[2022-02-22 14:19] LABS: ANISOCYTOSIS 1+; OVALOCYTES 1+; PLATELET ESTIMATE DECREASED (NORMAL); SMUDGE CELLS 2+
[2022-02-22 18:08] LABS: ALBUMIN 3.9 GM/DL (3.2-5.2); ALT/SGPT 31 U/L (12-78); BILIRUBIN,TOTAL 0.5 MG/DL (0.2-1.0); BLOOD UREA NITROGEN 21 MG/DL (7-18); CALCIUM LEVEL 9.5 MG/DL (8.8-10.2); CARBON DIOXIDE LEVEL 23 MEQ/L (21-32); CHLORIDE LEVEL 112 MEQ/L (98-107); CREATININE FOR GFR 0.92 MG/DL (0.70-1.30); FERRITIN 40 NG/ML (26-388); GLOMERULAR FILTRATION RATE > 60.0 (>42); GLUCOSE, FASTING 85 MG/DL (70-100); IRON (FE) 88 UG/DL (65-175); PERCENT SATURATION 25.9 % (19.7-50.0); POTASSIUM SERUM 4.7 MEQ/L (3.5-5.1); SODIUM LEVEL 144 MEQ/L (136-145); TOTAL IRON BINDING CAPACITY 340 UG/DL (250-450); TOTAL PROTEIN 6.5 GM/DL (6.4-8.2)
== END ==
LOC: M SFHCADAM 11:21
PROVIDERS: ATTEND Physician Assistant
DX: I48.0 Paroxysmal atrial fibrillation (principal); D50.9 Iron deficiency anemia, unspecified; D64.9 Anemia, unspecified

== ENCOUNTER → 2022-03-14 | Outpatient (REF) | payer MEDICARE, OTHER | LOC: M SFHCADAM 10:29 | PROVIDERS: ATTEND Physician Assistant | DX: D50.9 Iron deficiency anemia, unspecified (principal) ==

== ENCOUNTER → 2022-06-01 | Outpatient (CLI) | payer MEDICARE, OTHER ==
[~2022-06-01] MED LIST changes: -GLUCTAB6 PO; +GLUCTAB7 PO
== END ==
LOC: M RAD 10:15
PROVIDERS: ATTEND Nurse Practitioner Family
DX: N18.2 Chronic kidney disease, stage 2 (mild) (principal); N28.1 Cyst of kidney, acquired; R32 Unspecified urinary incontinence

== ENCOUNTER → 2022-06-16 | Outpatient (REF) | payer MEDICARE, OTHER ==
[2022-06-16 17:40] LABS: APPEARANCE, URINE MANUAL CLEAR (CLEAR); BILIRUBIN, URINE MANUAL NEGATIVE (NEGATIVE); BLOOD URINE MANUAL POSITIVE (NEGATIVE); COLOR, URINE MANUAL YELLOW (YELLOW); GLUCOSE, URINE (UA) MANUAL NEGATIVE (NEGATIVE); KETONE, URINE MANUAL NEGATIVE (NEGATIVE); LEUKOCYTE ESTERASE, URINE MAN NEGATIVE (NEGATIVE); NITRITE, URINE MANUAL NEGATIVE (NEGATIVE); PROTEIN, URINE MANUAL 2+ mg/dL (NEGATIVE); UROBILINOGEN, URINE MANUAL NORMAL (NORMAL)
[2022-06-16 18:01] LABS: BACTERIA, URINE NONE SEEN; SQUAMOUS EPITHELIAL CELL URINE SMALL AMOUNT /hpf (SMALL AMT); WBC, URINE 0-1 /hpf (0-3)
[2022-06-16 18:02] LABS: GRANULAR CAST, URINE 0-1 /lpf; MUCUS, URINE SMALL AMOUNT (NEGATIVE)
== END ==
LOC: M SMT 16:37
PROVIDERS: ATTEND Physician Assistant
DX: R32 Unspecified urinary incontinence (principal)

== ENCOUNTER → 2022-08-02 | Outpatient (CLI) | payer MEDICARE, OTHER | LOC: M LABSMTC 10:57 | PROVIDERS: ATTEND Anesthesiology | DX: Z01.812 Encounter for preprocedural laboratory examination (principal); Z20.822 Contact with and (suspected) exposure to COVID-19 ==

== ENCOUNTER 2022-08-07 06:44 | Day surgery (SDC) | payer MEDICARE, OTHER ==
[~2022-08-07] VITALS: Ht 188 cm; Wt 80.6 kg
[~2022-08-07 06:44] MED LIST changes: +LIDOCAINE 3.5 % 1ML OPHTH TOPICAL GEL OU ONE; +OFLOXACIN 0.3 % (OCUFLOX) OPTH SOL 5ML OS ONE; +PHENYLEPHRINE HCL 10 % OPHTH. SOL 5ML OS PRN; +POVIDONE-IODINE 5% OPHTH PREP SOL 30ML As Ordered ONE
[2022-08-07] MEDS ORDERED: CEFUROXIME 1MG/0.1ML INTRACAMERAL INJ As Ordered ONE (06:45)
[2022-08-07] MEDS ORDERED: DUOVISC (0.50ML VISCOAT/0.85ML PROVISC) OPHTH KIT As Ordered ONE (06:45)
[2022-08-07] MEDS ORDERED: LIDOCAINE 1% SDV 5ML VIAL As Ordered ONE (06:45)
[2022-08-07] MEDS ORDERED: MIDAZOLAM INJ 2MG/2ML VIAL (J2250 PER 1MG) As Ordered ONE (07:15)
[2022-08-07] MEDS ORDERED: OMEP40CA5 PO (07:22)
[2022-08-07] MEDS: PHENYLEPHRINE 2.5% OPHTH SOL 2ML OS SCH ×3 (07:26→07:49)
[2022-08-07] MEDS: TROPICAMIDE 1% OPHTH SOLN 2ML OS SCH ×3 (07:26→07:49)
[2022-08-07] MEDS: CYCLOPENTOLATE 1% OPHTH SOLN 2 ML BTL OS SCH ×2 (07:37→07:49)
[2022-08-07] MEDS ORDERED: D5W 1000ML IV ONE (08:15)
[2022-08-07] MEDS ORDERED: BSS IRRIG/VANCO(10MG)/TOBRA(5MG)/EPINEPH(1:1000-0.5CC)500ML BAG-ORONLY IR ONE (08:50)
[2022-08-07 09:50] VITALS: BP 139/80
== END 2022-08-07 09:09 | disposition home or self-care (01) ==
LOC: M SDC 06:44
PROVIDERS: ATTEND Ophthalmology
DX: H25.12 Age-related nuclear cataract, left eye (principal); I48.91 Unspecified atrial fibrillation; I25.10 Atherosclerotic heart disease of native coronary artery without angina pectoris; I10 Essential (primary) hypertension; E78.5 Hyperlipidemia, unspecified; E10.9 Type 1 diabetes mellitus without complications; Z87.891 Personal history of nicotine dependence; M10.9 Gout, unspecified; K57.92 Diverticulitis of intestine, part unspecified, without perforation or abscess without bleeding; K21.9 Gastro-esophageal reflux disease without esophagitis; F03.90 Unspecified dementia, unspecified severity, without behavioral disturbance, psychotic disturbance, mood disturbance, and anxiety; F41.9 Anxiety disorder, unspecified; F32.A Depression, unspecified; J44.9 Chronic obstructive pulmonary disease, unspecified; Z79.82 Long term (current) use of aspirin; Z79.4 Long term (current) use of insulin; Z79.899 Other long term (current) drug therapy
CPT/HCPCS: 66984; J0697; J2250; V2632

== ENCOUNTER → 2022-09-19 | Outpatient (REF) | payer MEDICARE, OTHER ==
[~2022-09-19] MED LIST changes: +C 50TAB PO; +DIVA250T67 PO; +ERYT5OIN25 OU; +FERR1TAB8 PO; +JANU100T; +JANU100T PO; +JARD1TAB PO; -LIDOCAINE 3.5 % 1ML OPHTH TOPICAL GEL OU ONE; +MELA10CA6 PO; +METF-838 PO; +NYST1POW9 TOP; -OFLOXACIN 0.3 % (OCUFLOX) OPTH SOL 5ML OS ONE; +OMEP-173 PO; -PHENYLEPHRINE HCL 10 % OPHTH. SOL 5ML OS PRN; -POVIDONE-IODINE 5% OPHTH PREP SOL 30ML As Ordered ONE; +QUET50TA4 PO; +RISATAB3 PO; +SEMA3TAB4 PO; +SILD100T PO; +TAMS1CAP17 PO
[2022-09-19 17:46] LABS: HEMATOCRIT 38.5 % (42.0-52.0); HEMOGLOBIN 11.3 g/dl (13.5-17.5); MEAN CORPUSCULAR HEMOGLOBIN 24.9 pg (27.0-33.0); MEAN CORPUSCULAR HGB CONC 29.4 g/dl (32.0-36.5); PLATELET COUNT, AUTOMATED 221 10^3/uL (150-450); RED BLOOD COUNT 4.53 10^6/uL (4.30-6.10); WHITE BLOOD COUNT 16.9 10^3/uL (4.0-10.0)
[2022-09-19 18:08] LABS: ALBUMIN 3.1 G/DL (3.2-5.2); CHLORIDE LEVEL 109 MMOL/L (98-107); POTASSIUM SERUM 4.5 MMOL/L (3.5-5.1); SODIUM LEVEL 144 MMOL/L (136-145)
[2022-09-19 18:09] LABS: CARBON DIOXIDE LEVEL 24 MMOL/L (20-31)
[2022-09-19 18:13] LABS: BLOOD UREA NITROGEN 14 MG/DL (9-23)
[2022-09-19 18:14] LABS: ALKALINE PHOSPHATASE 106 U/L (46-116); CALCIUM LEVEL 8.3 MG/DL (8.3-10.6); GLUCOSE, FASTING 192 MG/DL (74-106)
[2022-09-19 18:15] LABS: BILIRUBIN,TOTAL 0.4 MG/DL (0.3-1.2); TOTAL PROTEIN 5.8 G/DL (5.7-8.2)
[2022-09-19 18:16] LABS: ALT/SGPT 16 U/L (7.0-40); AST/SGOT 20 U/L (<34); GLOMERULAR FILTRATION RATE > 60.0 (>42)
[2022-09-19 20:12] LABS: EOSINOPHILS 1 % (0-3); LYMPHOCYTES 54 % (16-44); MONOCYTES 6 % (0-5); NEUTROPHILS 39 % (28-66)
[2022-09-19 20:13] LABS: HYPOCHROMASIA 1+; OVALOCYTES 1+; PLATELET ESTIMATE NORMAL (NORMAL); POIKILOCYTOSIS 1+
== END ==
LOC: M SFHCADAM 13:57
PROVIDERS: ATTEND Physician Assistant Medical
DX: H10.32 Unspecified acute conjunctivitis, left eye (principal); R53.1 Weakness

== ENCOUNTER 2022-09-20 08:51 | Inpatient (IN) | payer MEDICARE, OTHER ==
[~2022-09-20] VITALS: Ht 188 cm; Wt 79.3 kg
[~2022-09-20 08:51] MED LIST changes: -C 50TAB PO; -DIVA250T67 PO; -ERYT5OIN25 OU; -FERR1TAB8 PO; -JANU100T; -JANU100T PO; -JARD1TAB PO; -MELA10CA6 PO; -METF-838 PO; -NYST1POW9 TOP; -OMEP-173 PO; -QUET50TA4 PO; -RISATAB3 PO; -SEMA3TAB4 PO; -SILD100T PO; -TAMS1CAP17 PO
[2022-09-20] MEDS: ASPIRIN 81MG ENTERIC TABLET PO SCH (09:00)
[2022-09-20] MEDS: FLUoxetine 20MG CAP PO SCH (09:00)
[2022-09-20] MEDS: buPROPion **XL** TABLET 150MG (WELLBUTRIN XL) PO SCH (09:00)
[2022-09-20] MEDS: OMEPRAZOLE 20MG CAP PO SCH (09:00)
[2022-09-20] MEDS: allopurinoL 100 MG TAB PO SCH (09:00)
[2022-09-20] MEDS: guaiFENesin ER 600 MG TAB PO SCH ×2 (09:00→22:48)
[2022-09-20] MEDS: DOCUSATE SODIUM 100MG CAPSULE PO SCH ×2 (09:00→22:48)
[2022-09-20 09:42] VITALS: O2SAT 93
[2022-09-20 09:53] LABS: ABG BASE EXCESS 1.7 (-2.0-2.0); ABG HCO3 24.6 MEQ/L (22.0-26.0); ABG O2 SATURATION 92.6 % (95.0-99.0); ABG PARTIAL PRESSURE CO2 32.6 mmHg (35.0-45.0); ABG PARTIAL PRESSURE O2 61.2 mmHg (75.0-100.0); ABG STANDARD HCO3 25.9 MEQ/L (22.0-26.0); ABG TOTAL CO2 25.6 MEQ/L (23.0-31.0); ABG pH (ARTERIAL) 7.495 UNITS (7.350-7.450)
[2022-09-20 10:25] LABS: HEMATOCRIT 32.5 % (42.0-52.0); HEMOGLOBIN 9.5 g/dl (13.5-17.5); MEAN CORPUSCULAR HEMOGLOBIN 24.8 pg (27.0-33.0); MEAN CORPUSCULAR HGB CONC 29.2 g/dl (32.0-36.5); MEAN CORPUSCULAR VOLUME 84.9 fl (80.0-96.0); PLATELET COUNT, AUTOMATED 183 10^3/uL (150-450); RED BLOOD COUNT 3.83 10^6/uL (4.30-6.10); WHITE BLOOD COUNT 17.8 10^3/uL (4.0-10.0)
[2022-09-20 10:44] LABS: ALBUMIN 3.1 G/DL (3.2-5.2); ALKALINE PHOSPHATASE 106 U/L (46-116); ALT/SGPT 16 U/L (7.0-40); AST/SGOT 32 U/L (<34); BILIRUBIN,DIRECT 0.2 MG/DL (<0.4); BILIRUBIN,TOTAL 0.4 MG/DL (0.3-1.2); BLOOD UREA NITROGEN 15 MG/DL (9-23); CALCIUM LEVEL 8.4 MG/DL (8.3-10.6); CARBON DIOXIDE LEVEL 26 MMOL/L (20-31); CHLORIDE LEVEL 109 MMOL/L (98-107); CREATININE FOR GFR 0.98 MG/DL (0.70-1.30); GLOMERULAR FILTRATION RATE > 60.0 (>42); GLUCOSE, FASTING 94 MG/DL (74-106); POTASSIUM SERUM 4.9 MMOL/L (3.5-5.1); SODIUM LEVEL 143 MMOL/L (136-145); TOTAL PROTEIN 5.8 G/DL (5.7-8.2)
[2022-09-20] MEDS ORDERED: cefTRIAXone SOD 1 GM in D5W MINI-BAG PLUS 50 ML IV ONE (11:15)
[2022-09-20] MEDS ORDERED: AZITHROMYCIN 250MG TABLET PO ONE (11:15)
[2022-09-20 11:24] LABS: ANISOCYTOSIS 1+; ATYPICAL LYMPH 1 % (0-5); LYMPHOCYTES 17 % (16-44); MICROCYTOSIS 1+; MONOCYTES 1 % (0-5); NEUTROPHILS 79 % (28-66); OVALOCYTES 1+; PLATELET ESTIMATE NORMAL (NORMAL); POIKILOCYTOSIS 1+
[2022-09-20] MEDS ORDERED: DEXTROSE 50% 50 ML SYRINGE IV PRN (11:40)
[2022-09-20] MEDS ORDERED: GLUCAGON INJ 1MG VIAL SC PRN (11:40)
[2022-09-20] MEDS ORDERED: GLUCOSE 4GM CHEW TABLET PO PRN (11:40)
[2022-09-20] MEDS ORDERED: MOM 30ML SUSPENSION UDC PO PRN (11:40)
[2022-09-20] MEDS ORDERED: MAALOX 30 ML SUSP *UDC PO PRN (11:40)
[2022-09-20] MEDS ORDERED: ACETAMINOPHEN TAB 650MG DOSE (2X325MG) PO PRN (11:40)
[2022-09-20] MEDS: INSULIN LISPRO (NovoLOG) PER UNIT SC SCH ×3 (12:00→22:07)
[2022-09-20] MEDS ORDERED: TRES1INJ2 SC (12:33)
[2022-09-20] MEDS ORDERED: OMEP-173 PO (12:33)
[2022-09-20] MEDS ORDERED: DIVA250T67 PO (12:33)
[2022-09-20] MEDS ORDERED: PRAD150C6 PO (12:35)
[2022-09-20] MEDS ORDERED: QUET50TA4 PO (12:36)
[2022-09-20] MEDS ORDERED: ALLO100T PO (12:36)
[2022-09-20] MEDS ORDERED: TAMS1CAP17 PO (12:36)
[2022-09-20] MEDS ORDERED: SILD100T PO (12:41)
[2022-09-20] MEDS ORDERED: HOME MED LIST COMPLETE! XX SCH (12:45)
[2022-09-20] MEDS: SYMBICORT 80/4.5MCG INHALER 6GM INH SCH ×2 (14:38→20:06)
[2022-09-20] MEDS: DIVALPROEX 250 MG TAB PO SCH ×2 (15:25→23:19)
[2022-09-20] MEDS: PIPERACILLIN/TAZOBACTAM SOD 3.375 GM in D5W MINI-BAG PLUS 50 ML IV SCH ×2 (15:26→19:32)
[2022-09-20 21:19] VITALS: BP 122/97
[2022-09-20] MEDS: METOPROLOL SUCC (TopROL XL) 50MG **XL** TAB PO SCH (22:48)
[2022-09-20] MEDS: LEVEMIR (INSULIN DETEMIR) 1 UNITS/0.01ML SC SCH (22:48)
[2022-09-20] MEDS: PRAVASTATIN 20 MG TAB PO SCH (22:48)
[2022-09-20] MEDS: TAMSULOSIN 0.4 MG CAP PO SCH (22:49)
[2022-09-20] MEDS: DABIGATRAN ETEXILATE 75 MG CAP (PRADAXA) PO SCH (22:59)
[2022-09-21] VITALS: BP 136/67
[2022-09-21] MEDS: PIPERACILLIN/TAZOBACTAM SOD 3.375 GM in D5W MINI-BAG PLUS 50 ML IV SCH ×4 (02:38→20:59)
[2022-09-21 04:00] VITALS: BP 138/75
[2022-09-21 05:37] LABS: HEMATOCRIT 31.1 % (42.0-52.0); HEMOGLOBIN 9.3 g/dl (13.5-17.5); MEAN CORPUSCULAR HEMOGLOBIN 24.7 pg (27.0-33.0); MEAN CORPUSCULAR HGB CONC 29.9 g/dl (32.0-36.5); MEAN CORPUSCULAR VOLUME 82.5 fl (80.0-96.0); PLATELET COUNT, AUTOMATED 132 10^3/uL (150-450); RED BLOOD COUNT 3.77 10^6/uL (4.30-6.10)
[2022-09-21 06:02] LABS: MAGNESIUM LEVEL 1.3 MG/DL (1.8-2.4)
[2022-09-21 06:03] LABS: INR 1.76; PROTHROMBIN TIME 20.9 SECONDS (12.5-14.5)
[2022-09-21 06:04] LABS: PARTIAL THROMBOPLASTIN TIME 57.7 SECONDS (24.8-34.2)
[2022-09-21 06:06] LABS: BLOOD UREA NITROGEN 15 MG/DL (9-23); CALCIUM LEVEL 7.8 MG/DL (8.3-10.6); CARBON DIOXIDE LEVEL 26 MMOL/L (20-31); CHLORIDE LEVEL 108 MMOL/L (98-107); CREATININE FOR GFR 1.02 MG/DL (0.70-1.30); GLOMERULAR FILTRATION RATE > 60.0 (>42); GLUCOSE, FASTING 166 MG/DL (74-106); POTASSIUM SERUM 3.3 MMOL/L (3.5-5.1); SODIUM LEVEL 143 MMOL/L (136-145)
[2022-09-21 06:29] LABS: ANISOCYTOSIS 2+; ATYPICAL LYMPH 4 % (0-5); BASOPHILS 1 % (0-1); LYMPHOCYTES 39 % (16-44); MONOCYTES 4 % (0-5); NEUTROPHILS 52 % (28-66); PLATELET ESTIMATE NORMAL (NORMAL)
[2022-09-21 06:30] LABS: HYPOCHROMASIA 1+; OVALOCYTES 1+; SMUDGE CELLS 1+
[2022-09-21 06:31] LABS: POIKILOCYTOSIS 1+
[2022-09-21] MEDS: INSULIN LISPRO (NovoLOG) PER UNIT SC SCH ×4 (07:30→20:42)
[2022-09-21] MEDS: MAG SULF 1GM/100ML (MAG RUN) 1 GM in IV 1 EA IV SCH ×2 (07:45→11:11)
[2022-09-21 08:00] VITALS: BP 129/70
[2022-09-21] MEDS ORDERED: POTASSIUM CHLORIDE 10MEQ SR TABLET PO ONE ×2 (08:00→16:15)
[2022-09-21] MEDS: SYMBICORT 80/4.5MCG INHALER 6GM INH SCH ×2 (08:03→20:00)
[2022-09-21] MEDS ORDERED: MAG SULF 1GM/100ML (MAG RUN) 1 GM in IV 1 EA IV ONE ×2 (09:00→17:05)
[2022-09-21] MEDS ORDERED: ENOXAPARIN 40MG/0.4ML SYRINGE (J1650 PER 10MG) SC SCH (09:00)
[2022-09-21] MEDS: DABIGATRAN ETEXILATE 75 MG CAP (PRADAXA) PO SCH ×2 (09:09→17:45)
[2022-09-21] MEDS: DOCUSATE SODIUM 100MG CAPSULE PO SCH ×2 (09:09→21:00)
[2022-09-21] MEDS: ASPIRIN 81MG ENTERIC TABLET PO SCH (09:09)
[2022-09-21] MEDS: DIVALPROEX 250 MG TAB PO SCH ×2 (09:10→21:00)
[2022-09-21] MEDS: FLUoxetine 20MG CAP PO SCH (09:10)
[2022-09-21] MEDS: guaiFENesin ER 600 MG TAB PO SCH ×2 (09:10→21:01)
[2022-09-21] MEDS: OMEPRAZOLE 20MG CAP PO SCH (09:10)
[2022-09-21] MEDS: buPROPion **XL** TABLET 150MG (WELLBUTRIN XL) PO SCH (09:10)
[2022-09-21] MEDS: ERYTHROMYCIN OPHTH OINT OU SCH ×3 (09:10→21:01)
[2022-09-21] MEDS: allopurinoL 100 MG TAB PO SCH (09:16)
[2022-09-21] MEDS ORDERED: VARIBAR PUDDING 40% w/v 230ML TUBE As Ordered ONE (09:44)
[2022-09-21] MEDS ORDERED: E-Z-PAQUE 96% w/w SUSP 176GM BTL As Ordered ONE (09:45)
[2022-09-21] MEDS ORDERED: BARIUM SULFATE 700 MG TABLET (E-Z-DISK) As Ordered ONE (09:45)
[2022-09-21] MEDS ORDERED: VARIBAR NECTAR 40% w/v 240ML SUSP BTL As Ordered ONE (09:45)
[2022-09-21 12:00] VITALS: BP 149/84
[2022-09-21] MEDS ORDERED: ACETAMINOPHEN 500 MG TAB PO PRN (13:15)
[2022-09-21 16:00] VITALS: BP 147/83
[2022-09-21 20:00] VITALS: BP 136/87
[2022-09-21] MEDS: TAMSULOSIN 0.4 MG CAP PO SCH (21:00)
[2022-09-21] MEDS: PRAVASTATIN 20 MG TAB PO SCH (21:00)
[2022-09-21] MEDS: LEVEMIR (INSULIN DETEMIR) 1 UNITS/0.01ML SC SCH (21:00)
[2022-09-21] MEDS: METOPROLOL SUCC (TopROL XL) 50MG **XL** TAB PO SCH (21:01)
[2022-09-22] VITALS (7 sets, daily range): BP systolic 136–165; BP diastolic 75–101
[2022-09-22] MEDS: PIPERACILLIN/TAZOBACTAM SOD 3.375 GM in D5W MINI-BAG PLUS 50 ML IV SCH ×2 (03:18→09:01)
[2022-09-22 05:24] LABS: HEMATOCRIT 32.9 % (42.0-52.0); HEMOGLOBIN 9.7 g/dl (13.5-17.5); MEAN CORPUSCULAR HEMOGLOBIN 24.7 pg (27.0-33.0); MEAN CORPUSCULAR HGB CONC 29.5 g/dl (32.0-36.5); MEAN CORPUSCULAR VOLUME 83.9 fl (80.0-96.0); PLATELET COUNT, AUTOMATED 157 10^3/uL (150-450); RED BLOOD COUNT 3.92 10^6/uL (4.30-6.10); WHITE BLOOD COUNT 12.3 10^3/uL (4.0-10.0)
[2022-09-22 06:05] LABS: MAGNESIUM LEVEL 1.8 MG/DL (1.8-2.4)
[2022-09-22 06:20] LABS: BLOOD UREA NITROGEN 14 MG/DL (9-23); CARBON DIOXIDE LEVEL 26 MMOL/L (20-31); CHLORIDE LEVEL 106 MMOL/L (98-107); CREATININE FOR GFR 1.17 MG/DL (0.70-1.30); GLOMERULAR FILTRATION RATE > 60.0 (>42); GLUCOSE, FASTING 56 MG/DL (74-106); POTASSIUM SERUM 4.3 MMOL/L (3.5-5.1); SODIUM LEVEL 140 MMOL/L (136-145)
[2022-09-22] MEDS: SYMBICORT 80/4.5MCG INHALER 6GM INH SCH ×2 (07:35→21:14)
[2022-09-22] MEDS: INSULIN LISPRO (NovoLOG) PER UNIT SC SCH ×4 (09:00→21:00)
[2022-09-22 09:01] LABS: ATYPICAL LYMPH 2 % (0-5); EOSINOPHILS 1 % (0-3); LYMPHOCYTES 56 % (16-44); METAMYELOCYTES 1 % (0-0); MONOCYTES 5 % (0-5); NEUTROPHILS 34 % (28-66)
[2022-09-22] MEDS: DOCUSATE SODIUM 100MG CAPSULE PO SCH (09:01)
[2022-09-22] MEDS: buPROPion **XL** TABLET 150MG (WELLBUTRIN XL) PO SCH (09:02)
[2022-09-22] MEDS: guaiFENesin ER 600 MG TAB PO SCH ×2 (09:02→21:07)
[2022-09-22] MEDS: DIVALPROEX 250 MG TAB PO SCH ×2 (09:02→21:08)
[2022-09-22] MEDS: ASPIRIN 81MG ENTERIC TABLET PO SCH (09:02)
[2022-09-22] MEDS: OMEPRAZOLE 20MG CAP PO SCH (09:02)
[2022-09-22] MEDS: DABIGATRAN ETEXILATE 75 MG CAP (PRADAXA) PO SCH ×2 (09:02→17:48)
[2022-09-22] MEDS: FLUoxetine 20MG CAP PO SCH (09:02)
[2022-09-22] MEDS: ERYTHROMYCIN OPHTH OINT OU SCH ×3 (09:03→21:07)
[2022-09-22 09:04] LABS: HYPOCHROMASIA 1+
[2022-09-22 09:05] LABS: ANISOCYTOSIS 1+; OVALOCYTES 1+; POIKILOCYTOSIS 1+
[2022-09-22 09:06] LABS: PLATELET ESTIMATE NORMAL (NORMAL); SMUDGE CELLS 1+
[2022-09-22] MEDS: allopurinoL 100 MG TAB PO SCH (11:19)
[2022-09-22] MEDS: LACTOBACILLUS ACIDOPHILUS CAP (BACID) PO SCH ×3 (13:23→21:07)
[2022-09-22] MEDS ORDERED: LACTOBACILLUS ACIDOPHILUS CAP (BACID) PO SCH (21:00)
[2022-09-22] MEDS: TAMSULOSIN 0.4 MG CAP PO SCH (21:06)
[2022-09-22] MEDS: PRAVASTATIN 20 MG TAB PO SCH (21:06)
[2022-09-22] MEDS: LEVEMIR (INSULIN DETEMIR) 1 UNITS/0.01ML SC SCH (21:06)
[2022-09-22] MEDS: METOPROLOL SUCC (TopROL XL) 50MG **XL** TAB PO SCH (21:06)
[2022-09-22] MEDS: AUGMENTIN 875 MG TAB PO SCH (21:07)
[2022-09-23 04:00] VITALS: BP 165/97
[2022-09-23 06:01] LABS: HEMATOCRIT 34.6 % (42.0-52.0); HEMOGLOBIN 10.3 g/dl (13.5-17.5); MEAN CORPUSCULAR HEMOGLOBIN 24.8 pg (27.0-33.0); MEAN CORPUSCULAR HGB CONC 29.8 g/dl (32.0-36.5); MEAN CORPUSCULAR VOLUME 83.2 fl (80.0-96.0); PLATELET COUNT, AUTOMATED 188 10^3/uL (150-450); RED BLOOD COUNT 4.16 10^6/uL (4.30-6.10)
[2022-09-23 06:41] LABS: ATYPICAL LYMPH 14 % (0-5); EOSINOPHILS 2 % (0-3); LYMPHOCYTES 40 % (16-44); MONOCYTES 7 % (0-5); NEUTROPHILS 36 % (28-66)
[2022-09-23 06:42] LABS: ANISOCYTOSIS 2+; PLATELET ESTIMATE NORMAL (NORMAL); SMUDGE CELLS 1+
[2022-09-23 06:43] LABS: OVALOCYTES 1+; POIKILOCYTOSIS 1+
[2022-09-23 06:44] LABS: SCHISTOCYTES 1+; TEAR DROP CELLS 1+
[2022-09-23 06:55] LABS: MAGNESIUM LEVEL 1.6 MG/DL (1.8-2.4)
[2022-09-23 07:04] LABS: BLOOD UREA NITROGEN 16 MG/DL (9-23); CALCIUM LEVEL 8.6 MG/DL (8.3-10.6); CARBON DIOXIDE LEVEL 25 MMOL/L (20-31); CHLORIDE LEVEL 105 MMOL/L (98-107); CREATININE FOR GFR 0.99 MG/DL (0.70-1.30); GLOMERULAR FILTRATION RATE > 60.0 (>42); GLUCOSE, FASTING 194 MG/DL (74-106); POTASSIUM SERUM 4.3 MMOL/L (3.5-5.1); SODIUM LEVEL 139 MMOL/L (136-145)
[2022-09-23 07:27] VITALS: BP 164/88
[2022-09-23] MEDS: INSULIN LISPRO (NovoLOG) PER UNIT SC SCH ×2 (07:30→13:10)
[2022-09-23] MEDS: SYMBICORT 80/4.5MCG INHALER 6GM INH SCH (07:55)
[2022-09-23] MEDS: MAG SULF 1GM/100ML (MAG RUN) 1 GM in IV 1 EA IV SCH ×2 (08:23→11:37)
[2022-09-23] MEDS: LACTOBACILLUS ACIDOPHILUS CAP (BACID) PO SCH ×2 (08:37→13:10)
[2022-09-23] MEDS: FLUoxetine 20MG CAP PO SCH (08:37)
[2022-09-23] MEDS: OMEPRAZOLE 20MG CAP PO SCH (08:37)
[2022-09-23] MEDS: AUGMENTIN 875 MG TAB PO SCH (08:37)
[2022-09-23] MEDS: ERYTHROMYCIN OPHTH OINT OU SCH (08:38)
[2022-09-23] MEDS: ASPIRIN 81MG ENTERIC TABLET PO SCH (08:38)
[2022-09-23] MEDS: allopurinoL 100 MG TAB PO SCH (08:38)
[2022-09-23] MEDS: DIVALPROEX 250 MG TAB PO SCH (08:38)
[2022-09-23] MEDS: guaiFENesin ER 600 MG TAB PO SCH (08:38)
[2022-09-23] MEDS: buPROPion **XL** TABLET 150MG (WELLBUTRIN XL) PO SCH (08:38)
[2022-09-23] MEDS: DABIGATRAN ETEXILATE 75 MG CAP (PRADAXA) PO SCH (08:47)
[2022-09-23] MEDS ORDERED: AMOX875T2 PO (13:59)
[2022-09-23] MEDS ORDERED: ERYT5OIN25 OU (13:59)
[2022-09-23] MEDS ORDERED: RISATAB3 PO (13:59)
[2022-09-23] MEDS ORDERED: QUEtiapine FUMARATE 50MG TAB PO SCH (21:00)
== END 2022-09-23 15:18 | disposition home or self-care (01) | DRG 177 ==
LOC: EDBD 08:51 → M ED 08:51 → M ED INP 11:39 → M PCU 21:11
PROVIDERS: ADMIT Internal Medicine; ATTEND Internal Medicine
DX: J69.0 Pneumonitis due to inhalation of food and vomit (principal); G93.41 Metabolic encephalopathy; L97.419 Non-pressure chronic ulcer of right heel and midfoot with unspecified severity; L97.429 Non-pressure chronic ulcer of left heel and midfoot with unspecified severity; L97.219 Non-pressure chronic ulcer of right calf with unspecified severity; E11.22 Type 2 diabetes mellitus with diabetic chronic kidney disease; J44.9 Chronic obstructive pulmonary disease, unspecified; I12.9 Hypertensive chronic kidney disease with stage 1 through stage 4 chronic kidney disease, or unspecified chronic kidney disease; N18.30 Chronic kidney disease, stage 3 unspecified; K21.9 Gastro-esophageal reflux disease without esophagitis; I25.10 Atherosclerotic heart disease of native coronary artery without angina pectoris; I48.91 Unspecified atrial fibrillation; E78.5 Hyperlipidemia, unspecified; F41.9 Anxiety disorder, unspecified; F32.A Depression, unspecified; M54.2 Cervicalgia; M54.59 Other low back pain; M10.9 Gout, unspecified; F03.90 Unspecified dementia, unspecified severity, without behavioral disturbance, psychotic disturbance, mood disturbance, and anxiety; R13.10 Dysphagia, unspecified; D53.9 Nutritional anemia, unspecified; Z87.891 Personal history of nicotine dependence; Z79.899 Other long term (current) drug therapy; Z79.82 Long term (current) use of aspirin; Z79.01 Long term (current) use of anticoagulants

== ENCOUNTER 2022-09-27 15:34 | Inpatient (IN) | payer MEDICARE, OTHER ==
[~2022-09-27] VITALS: Ht 188 cm; Wt 78.0 kg
[~2022-09-27 15:34] MED LIST changes: +DIVA250T67 PO; +ERYT5OIN25 OU; +OMEP-173 PO; +QUET50TA4 PO; +RISATAB3 PO; +SILD100T PO; +TAMS1CAP17 PO
[2022-09-27 17:02] LABS: VENOUS BASE EXCESS 0.5 (-2.0-2.0); VENOUS HCO3 24.7 MEQ/L (23.0-27.0); VENOUS O2 SATURATION 97.7 % (60.0-80.0); VENOUS PARTIAL PRESSURE CO2 38.4 mmHg (38.0-50.0); VENOUS PARTIAL PRESSURE O2 102.4 mmHg (30.0-50.0); VENOUS PH 7.426 UNITS (7.330-7.430); VENOUS STANDARD HCO3 24.9 MEQ/L; VENOUS TOTAL CO2 25.9 MEQ/L (24.0-28.0)
[2022-09-27 17:13] LABS: HEMOGLOBIN 12.1 g/dl (13.5-17.5); MEAN CORPUSCULAR HEMOGLOBIN 24.7 pg (27.0-33.0); MEAN CORPUSCULAR HGB CONC 30.3 g/dl (32.0-36.5); MEAN CORPUSCULAR VOLUME 81.6 fl (80.0-96.0); PLATELET COUNT, AUTOMATED 293 10^3/uL (150-450); WHITE BLOOD COUNT 22.6 10^3/uL (4.0-10.0)
[2022-09-27 17:32] LABS: OSMOLALITY SERUM 280 MOSM/KG (280-301)
[2022-09-27] MEDS ORDERED: cefTRIAXone SOD 1 GM in D5W MINI-BAG PLUS 50 ML IV ONE (17:35)
[2022-09-27 17:43] LABS: VALPROIC ACID (DEPAKOTE) 31.5 UG/ML (50.0-100.0)
[2022-09-27 17:44] LABS: BILIRUBIN,DIRECT 0.1 MG/DL (<0.4)
[2022-09-27 18:03] LABS: BASOPHILS 1 % (0-1); EOSINOPHILS 1 % (0-3); MONOCYTES 6 % (0-5)
[2022-09-27 18:04] LABS: ATYPICAL LYMPH 5 % (0-5); LYMPHOCYTES 42 % (16-44); NEUTROPHILS 45 % (28-66)
[2022-09-27 18:05] LABS: OVALOCYTES 1+
[2022-09-27 18:07] LABS: ANISOCYTOSIS 2+
[2022-09-27 18:08] LABS: ALBUMIN 2.7 G/DL (3.2-5.2); ALKALINE PHOSPHATASE 88 U/L (46-116); ALT/SGPT 14 U/L (7.0-40); AST/SGOT 30 U/L (<34); BILIRUBIN,TOTAL 0.3 MG/DL (0.3-1.2); BLOOD UREA NITROGEN 15 MG/DL (9-23); CALCIUM LEVEL 8.6 MG/DL (8.3-10.6); CARBON DIOXIDE LEVEL 23 MMOL/L (20-31); CHLORIDE LEVEL 103 MMOL/L (98-107); CREATININE FOR GFR 0.89 MG/DL (0.70-1.30); GLOMERULAR FILTRATION RATE > 60.0 (>42); GLUCOSE, FASTING 75 MG/DL (74-106); HYPOCHROMASIA 1+; MICROCYTOSIS 1+; PLATELET ESTIMATE NORMAL (NORMAL); POTASSIUM SERUM 5.4 MMOL/L (3.5-5.1); SMUDGE CELLS 1+; SODIUM LEVEL 135 MMOL/L (136-145); THYROID STIMULATING HORMONE 9.794 uIU/ML (0.55-4.78); TOTAL PROTEIN 5.7 G/DL (5.7-8.2)
[2022-09-27 18:09] LABS: POIKILOCYTOSIS 1+
[2022-09-27] MEDS ORDERED: GLUCAGON INJ 1MG VIAL SC PRN (18:55)
[2022-09-27] MEDS ORDERED: ACETAMINOPHEN TAB 650MG DOSE (2X325MG) PO PRN (18:55)
[2022-09-27] MEDS ORDERED: GLUCOSE 4GM CHEW TABLET PO PRN (18:55)
[2022-09-27] MEDS ORDERED: DEXTROSE 50% 50 ML SYRINGE IV PRN (18:55)
[2022-09-27] MEDS ORDERED: ERYT5OIN25 OU (18:58)
[2022-09-27] MEDS ORDERED: HOME MED LIST COMPLETE! XX SCH (19:05)
[2022-09-27] MEDS: INSULIN LISPRO (NovoLOG) PER UNIT SC SCH (21:00)
[2022-09-27] MEDS ORDERED: LEVEMIR (INSULIN DETEMIR) 1 UNITS/0.01ML SC SCH (21:00)
[2022-09-27] MEDS: LACTOBACILLUS ACIDOPHILUS CAP (BACID) PO SCH (21:00)
[2022-09-27] MEDS: AUGMENTIN 875 MG TAB PO SCH (21:07)
[2022-09-27] MEDS: TAMSULOSIN 0.4 MG CAP PO SCH (21:07)
[2022-09-27] MEDS: METOPROLOL SUCC (TopROL XL) 50MG **XL** TAB PO SCH (21:07)
[2022-09-27] MEDS: PRAVASTATIN 20 MG TAB PO SCH (21:07)
[2022-09-27] MEDS: DOCUSATE SODIUM 100MG CAPSULE PO SCH (21:07)
[2022-09-27] MEDS: QUEtiapine FUMARATE 50MG TAB PO SCH (21:07)
[2022-09-27] MEDS: DIVALPROEX 250 MG TAB PO SCH (21:07)
[2022-09-27] MEDS: ERYTHROMYCIN OPHTH OINT OU SCH (21:08)
[2022-09-28] MEDS: DABIGATRAN ETEXILATE 75 MG CAP (PRADAXA) PO SCH ×3 (03:14→21:27)
[2022-09-28 06:26] LABS: HEMATOCRIT 38.1 % (42.0-52.0); HEMOGLOBIN 11.5 g/dl (13.5-17.5); MEAN CORPUSCULAR HEMOGLOBIN 24.9 pg (27.0-33.0); MEAN CORPUSCULAR HGB CONC 30.2 g/dl (32.0-36.5); MEAN CORPUSCULAR VOLUME 82.6 fl (80.0-96.0); RED BLOOD COUNT 4.61 10^6/uL (4.30-6.10); WHITE BLOOD COUNT 11.9 10^3/uL (4.0-10.0)
[2022-09-28 06:43] LABS: INR 1.4; PROTHROMBIN TIME 17.4 SECONDS (12.5-14.5)
[2022-09-28 06:45] LABS: PLATELET COUNT, AUTOMATED 192 10^3/uL (150-450)
[2022-09-28 07:02] LABS: MAGNESIUM LEVEL 1.4 MG/DL (1.8-2.4); VITAMIN B12 LEVEL 652 PG/ML (211-911)
[2022-09-28 07:37] LABS: BLOOD UREA NITROGEN 15 MG/DL (9-23); CALCIUM LEVEL 8.5 MG/DL (8.3-10.6); CARBON DIOXIDE LEVEL 26 MMOL/L (20-31); CHLORIDE LEVEL 109 MMOL/L (98-107); CREATININE FOR GFR 0.92 MG/DL (0.70-1.30); FOLATE > 24.00 NG/ML (>5.4); GLOMERULAR FILTRATION RATE > 60.0 (>42); GLUCOSE, FASTING 81 MG/DL (74-106); POTASSIUM SERUM 4.3 MMOL/L (3.5-5.1); SODIUM LEVEL 142 MMOL/L (136-145)
[2022-09-28] MEDS: SYMBICORT 80/4.5MCG INHALER 6GM INH SCH ×2 (08:20→21:12)
[2022-09-28] MEDS: LACTOBACILLUS ACIDOPHILUS CAP (BACID) PO SCH ×2 (09:00→21:25)
[2022-09-28] MEDS: DIVALPROEX 250 MG TAB PO SCH ×2 (09:27→21:25)
[2022-09-28] MEDS: buPROPion **XL** TABLET 150MG (WELLBUTRIN XL) PO SCH (09:28)
[2022-09-28] MEDS: FLUoxetine 20MG CAP PO SCH (09:28)
[2022-09-28] MEDS: AUGMENTIN 875 MG TAB PO SCH ×2 (09:28→21:25)
[2022-09-28] MEDS: DOCUSATE SODIUM 100MG CAPSULE PO SCH ×2 (09:28→21:25)
[2022-09-28] MEDS: allopurinoL 100 MG TAB PO SCH (09:28)
[2022-09-28] MEDS: ASPIRIN 81MG ENTERIC TABLET PO SCH (09:28)
[2022-09-28] MEDS: OMEPRAZOLE 20MG CAP PO SCH (09:30)
[2022-09-28] MEDS: INSULIN LISPRO (NovoLOG) PER UNIT SC SCH ×4 (09:34→20:48)
[2022-09-28] MEDS: ERYTHROMYCIN OPHTH OINT OU SCH ×3 (09:34→21:26)
[2022-09-28] MEDS ORDERED: NS 1,000 ML IV SCH (10:55)
[2022-09-28 11:35] LABS: BASO % 0.2 % (0.0-1.0); EOS # 0.2 10^3/uL (0.0-0.5); EOS % 2.1 % (0.0-3.0); HEMOGLOBIN 10.3 g/dl (13.5-17.5); LYMPH # 4.2 10^3/uL (1.5-5.0); MEAN CORPUSCULAR HEMOGLOBIN 24.8 pg (27.0-33.0); MEAN CORPUSCULAR HGB CONC 30.3 g/dl (32.0-36.5); MEAN CORPUSCULAR VOLUME 81.9 fl (80.0-96.0); MONO # 0.5 10^3/uL (0.0-0.8); MONO % 4.4 % (2.0-8.0); NEUTROPHILS # 5.3 10^3/uL (1.5-8.5); NEUTROPHILS % 51.8 % (36.0-66.0); PLATELET COUNT, AUTOMATED 172 10^3/uL (150-450); RED BLOOD COUNT 4.15 10^6/uL (4.30-6.10); WHITE BLOOD COUNT 10.2 10^3/uL (4.0-10.0)
[2022-09-28 11:56] LABS: ALBUMIN 2.3 G/DL (3.2-5.2); ALKALINE PHOSPHATASE 79 U/L (46-116); ALT/SGPT 11 U/L (7.0-40); AST/SGOT 14 U/L (<34); BILIRUBIN,TOTAL 0.3 MG/DL (0.3-1.2); BLOOD UREA NITROGEN 16 MG/DL (9-23); CALCIUM LEVEL 8.2 MG/DL (8.3-10.6); CARBON DIOXIDE LEVEL 26 MMOL/L (20-31); CHLORIDE LEVEL 106 MMOL/L (98-107); CREATININE FOR GFR 0.93 MG/DL (0.70-1.30); GLOMERULAR FILTRATION RATE > 60.0 (>42); GLUCOSE, FASTING 165 MG/DL (74-106); POTASSIUM SERUM 4.1 MMOL/L (3.5-5.1); SODIUM LEVEL 139 MMOL/L (136-145); TOTAL PROTEIN 4.8 G/DL (5.7-8.2)
[2022-09-28] MEDS ORDERED: DEXTROSE 50% 50ML VIAL As Ordered ONE (16:09)
[2022-09-28] MEDS ORDERED: ISOVUE-370 76% 100ML VIAL As Ordered ONE (16:10)
[2022-09-28] MEDS: D5W/0.9% SODIUM CHLORIDE 1,000 ML IV SCH ×2 (16:40→21:27)
[2022-09-28 17:09] LABS: IMMUNOGLOBULIN A 232.8 MG/DL (40-350); IMMUNOGLOBULIN M 81.2 MG/DL (50-300)
[2022-09-28] MEDS: TAMSULOSIN 0.4 MG CAP PO SCH (21:25)
[2022-09-28] MEDS: METOPROLOL SUCC (TopROL XL) 50MG **XL** TAB PO SCH (21:26)
[2022-09-28] MEDS: QUEtiapine FUMARATE 50MG TAB PO SCH (21:27)
[2022-09-28] MEDS: PRAVASTATIN 20 MG TAB PO SCH (21:27)
[2022-09-28] MEDS ORDERED: NYSTATIN 100,000 UNITS/GM TOPICAL PWD 15GM TOP PRN (21:40)
[2022-09-28 22:00] VITALS: BP 148/92
[2022-09-29 06:09] LABS: HEMATOCRIT 34.6 % (42.0-52.0); HEMOGLOBIN 10.3 g/dl (13.5-17.5); MEAN CORPUSCULAR HEMOGLOBIN 24.7 pg (27.0-33.0); MEAN CORPUSCULAR HGB CONC 29.8 g/dl (32.0-36.5); PLATELET COUNT, AUTOMATED 147 10^3/uL (150-450); RED BLOOD COUNT 4.17 10^6/uL (4.30-6.10); WHITE BLOOD COUNT 7.1 10^3/uL (4.0-10.0)
[2022-09-29 06:33] VITALS: BP 141/89
[2022-09-29 06:35] LABS: ALBUMIN 2.3 G/DL (3.2-5.2); ALKALINE PHOSPHATASE 84 U/L (46-116); ALT/SGPT 11 U/L (7.0-40); AST/SGOT 18 U/L (<34); BILIRUBIN,TOTAL 0.2 MG/DL (0.3-1.2); BLOOD UREA NITROGEN 13 MG/DL (9-23); CALCIUM LEVEL 7.8 MG/DL (8.3-10.6); CARBON DIOXIDE LEVEL 19 MMOL/L (20-31); CHLORIDE LEVEL 110 MMOL/L (98-107); CREATININE FOR GFR 0.85 MG/DL (0.70-1.30); GLOMERULAR FILTRATION RATE > 60.0 (>42); GLUCOSE, FASTING 287 MG/DL (74-106); POTASSIUM SERUM 4.4 MMOL/L (3.5-5.1); SODIUM LEVEL 141 MMOL/L (136-145); TOTAL PROTEIN 4.7 G/DL (5.7-8.2)
[2022-09-29] MEDS: SYMBICORT 80/4.5MCG INHALER 6GM INH SCH ×2 (07:28→20:01)
[2022-09-29] MEDS: buPROPion **XL** TABLET 150MG (WELLBUTRIN XL) PO SCH (08:41)
[2022-09-29] MEDS: DIVALPROEX 250 MG TAB PO SCH ×2 (08:41→20:37)
[2022-09-29] MEDS: DABIGATRAN ETEXILATE 75 MG CAP (PRADAXA) PO SCH ×2 (08:41→20:37)
[2022-09-29] MEDS: allopurinoL 100 MG TAB PO SCH (08:42)
[2022-09-29] MEDS: AUGMENTIN 875 MG TAB PO SCH ×2 (08:42→20:36)
[2022-09-29] MEDS: FLUoxetine 20MG CAP PO SCH (08:42)
[2022-09-29] MEDS: ASPIRIN 81MG ENTERIC TABLET PO SCH (08:42)
[2022-09-29] MEDS: OMEPRAZOLE 20MG CAP PO SCH (08:42)
[2022-09-29] MEDS: LACTOBACILLUS ACIDOPHILUS CAP (BACID) PO SCH ×2 (08:42→20:36)
[2022-09-29] MEDS: DOCUSATE SODIUM 100MG CAPSULE PO SCH ×2 (08:42→20:36)
[2022-09-29] MEDS: INSULIN LISPRO (NovoLOG) PER UNIT SC SCH ×4 (08:43→20:55)
[2022-09-29 20:36] VITALS: BP 159/96
[2022-09-29] MEDS: QUEtiapine FUMARATE 50MG TAB PO SCH (20:36)
[2022-09-29] MEDS: TAMSULOSIN 0.4 MG CAP PO SCH (20:36)
[2022-09-29] MEDS: PRAVASTATIN 20 MG TAB PO SCH (20:36)
[2022-09-29] MEDS: METOPROLOL SUCC (TopROL XL) 50MG **XL** TAB PO SCH (20:37)
[2022-09-30 06:00] VITALS: BP 133/78
[2022-09-30] MEDS: SYMBICORT 80/4.5MCG INHALER 6GM INH SCH ×2 (07:40→19:30)
[2022-09-30] MEDS: LACTOBACILLUS ACIDOPHILUS CAP (BACID) PO SCH ×2 (08:14→20:56)
[2022-09-30] MEDS: AUGMENTIN 875 MG TAB PO SCH ×2 (08:14→20:56)
[2022-09-30] MEDS: buPROPion **XL** TABLET 150MG (WELLBUTRIN XL) PO SCH (08:14)
[2022-09-30] MEDS: allopurinoL 100 MG TAB PO SCH (08:14)
[2022-09-30] MEDS: INSULIN LISPRO (NovoLOG) PER UNIT SC SCH ×4 (08:14→21:00)
[2022-09-30] MEDS: OMEPRAZOLE 20MG CAP PO SCH (08:15)
[2022-09-30] MEDS: DABIGATRAN ETEXILATE 75 MG CAP (PRADAXA) PO SCH ×2 (08:15→20:57)
[2022-09-30] MEDS: ASPIRIN 81MG ENTERIC TABLET PO SCH (08:15)
[2022-09-30] MEDS: FLUoxetine 20MG CAP PO SCH (08:15)
[2022-09-30] MEDS: DIVALPROEX 250 MG TAB PO SCH ×2 (08:15→20:57)
[2022-09-30] MEDS: DOCUSATE SODIUM 100MG CAPSULE PO SCH ×2 (08:15→20:56)
[2022-09-30 10:36] LABS: HEMATOCRIT 34.5 % (42.0-52.0); HEMOGLOBIN 10.4 g/dl (13.5-17.5); MEAN CORPUSCULAR HEMOGLOBIN 24.7 pg (27.0-33.0); MEAN CORPUSCULAR HGB CONC 30.1 g/dl (32.0-36.5); MEAN CORPUSCULAR VOLUME 81.9 fl (80.0-96.0); PLATELET COUNT, AUTOMATED 187 10^3/uL (150-450); RED BLOOD COUNT 4.21 10^6/uL (4.30-6.10); WHITE BLOOD COUNT 9.1 10^3/uL (4.0-10.0)
[2022-09-30 11:03] LABS: ALBUMIN 2.5 G/DL (3.2-5.2); ALKALINE PHOSPHATASE 87 U/L (46-116); ALT/SGPT 13 U/L (7.0-40); AST/SGOT 27 U/L (<34); BILIRUBIN,TOTAL 0.3 MG/DL (0.3-1.2); BLOOD UREA NITROGEN 13 MG/DL (9-23); CALCIUM LEVEL 8.1 MG/DL (8.3-10.6); CARBON DIOXIDE LEVEL 25 MMOL/L (20-31); CHLORIDE LEVEL 107 MMOL/L (98-107); CREATININE FOR GFR 0.95 MG/DL (0.70-1.30); GLOMERULAR FILTRATION RATE > 60.0 (>42); GLUCOSE, FASTING 224 MG/DL (74-106); POTASSIUM SERUM 4.9 MMOL/L (3.5-5.1); SODIUM LEVEL 139 MMOL/L (136-145); TOTAL PROTEIN 5.3 G/DL (5.7-8.2)
[2022-09-30 14:00] VITALS: BP 131/71
[2022-09-30 20:08] VITALS: BP 155/93
[2022-09-30] MEDS: METOPROLOL SUCC (TopROL XL) 50MG **XL** TAB PO SCH (20:56)
[2022-09-30] MEDS: QUEtiapine FUMARATE 50MG TAB PO SCH (20:56)
[2022-09-30] MEDS: TAMSULOSIN 0.4 MG CAP PO SCH (20:56)
[2022-09-30] MEDS: PRAVASTATIN 20 MG TAB PO SCH (20:56)
[2022-10-01 05:51] VITALS: BP 127/76
[2022-10-01] MEDS: SYMBICORT 80/4.5MCG INHALER 6GM INH SCH ×2 (07:26→19:17)
[2022-10-01] MEDS: allopurinoL 100 MG TAB PO SCH (09:50)
[2022-10-01] MEDS: LACTOBACILLUS ACIDOPHILUS CAP (BACID) PO SCH ×2 (09:50→21:12)
[2022-10-01] MEDS: DABIGATRAN ETEXILATE 75 MG CAP (PRADAXA) PO SCH ×2 (09:51→21:12)
[2022-10-01] MEDS: DOCUSATE SODIUM 100MG CAPSULE PO SCH ×2 (09:51→21:12)
[2022-10-01] MEDS: ASPIRIN 81MG ENTERIC TABLET PO SCH (09:51)
[2022-10-01] MEDS: buPROPion **XL** TABLET 150MG (WELLBUTRIN XL) PO SCH (09:51)
[2022-10-01] MEDS: FLUoxetine 20MG CAP PO SCH (09:51)
[2022-10-01] MEDS: OMEPRAZOLE 20MG CAP PO SCH (09:51)
[2022-10-01] MEDS: DIVALPROEX 250 MG TAB PO SCH ×2 (09:51→21:13)
[2022-10-01] MEDS: INSULIN LISPRO (NovoLOG) PER UNIT SC SCH ×4 (09:52→21:00)
[2022-10-01 21:12] VITALS: BP 127/76
[2022-10-01] MEDS: METOPROLOL SUCC (TopROL XL) 50MG **XL** TAB PO SCH (21:12)
[2022-10-01] MEDS: TAMSULOSIN 0.4 MG CAP PO SCH (21:12)
[2022-10-01] MEDS: PRAVASTATIN 20 MG TAB PO SCH (21:12)
[2022-10-01] MEDS: QUEtiapine FUMARATE 50MG TAB PO SCH (21:13)
[2022-10-01 22:00] VITALS: BP 137/83
[2022-10-02 06:00] VITALS: BP 119/69
[2022-10-02] MEDS: SYMBICORT 80/4.5MCG INHALER 6GM INH SCH (07:26)
[2022-10-02] MEDS: DABIGATRAN ETEXILATE 75 MG CAP (PRADAXA) PO SCH (09:15)
[2022-10-02] MEDS: INSULIN LISPRO (NovoLOG) PER UNIT SC SCH (09:15)
[2022-10-02] MEDS: allopurinoL 100 MG TAB PO SCH (09:15)
[2022-10-02] MEDS: OMEPRAZOLE 20MG CAP PO SCH (09:16)
[2022-10-02] MEDS: FLUoxetine 20MG CAP PO SCH (09:16)
[2022-10-02] MEDS: buPROPion **XL** TABLET 150MG (WELLBUTRIN XL) PO SCH (09:16)
[2022-10-02] MEDS: LACTOBACILLUS ACIDOPHILUS CAP (BACID) PO SCH (09:16)
[2022-10-02] MEDS: DOCUSATE SODIUM 100MG CAPSULE PO SCH (09:16)
[2022-10-02] MEDS: DIVALPROEX 250 MG TAB PO SCH (09:17)
[2022-10-02] MEDS: ASPIRIN 81MG ENTERIC TABLET PO SCH (09:17)
[2022-10-02] MEDS ORDERED: METF-838 PO (10:55)
[2022-10-02] MEDS ORDERED: NYST1POW9 TOP (10:55)
[2022-10-03 13:07] LABS: EBV VIRAL CAPSID AG IgG > 600.0 U/mL (0.0-17.9); EBV VIRAL CAPSID AG IgM <36.0 U/mL (0.0-35.9)
== END 2022-10-02 11:40 | disposition home health service (06) | DRG 638 ==
LOC: M ED 15:34 → M ED INP 15:35 → CANRESERV 09-28 15:35 → ENRESERV 09-28 15:35 → OBSVTOIN 09-28 18:16 → ENRESERV 09-28 19:49 → M MS5PR 09-28 20:34
PROVIDERS: ADMIT Internal Medicine; ATTEND Internal Medicine
DX: E11.649 Type 2 diabetes mellitus with hypoglycemia without coma (principal); G93.40 Encephalopathy, unspecified; F03.90 Unspecified dementia, unspecified severity, without behavioral disturbance, psychotic disturbance, mood disturbance, and anxiety; R53.1 Weakness; I48.91 Unspecified atrial fibrillation; E11.22 Type 2 diabetes mellitus with diabetic chronic kidney disease; N18.30 Chronic kidney disease, stage 3 unspecified; J44.9 Chronic obstructive pulmonary disease, unspecified; I12.9 Hypertensive chronic kidney disease with stage 1 through stage 4 chronic kidney disease, or unspecified chronic kidney disease; D50.9 Iron deficiency anemia, unspecified; E78.5 Hyperlipidemia, unspecified; N40.0 Benign prostatic hyperplasia without lower urinary tract symptoms; E86.0 Dehydration; I25.10 Atherosclerotic heart disease of native coronary artery without angina pectoris; R13.10 Dysphagia, unspecified; M10.9 Gout, unspecified; Z79.4 Long term (current) use of insulin; E87.5 Hyperkalemia; Z79.82 Long term (current) use of aspirin; K21.9 Gastro-esophageal reflux disease without esophagitis; E02 Subclinical iodine-deficiency hypothyroidism; D72.829 Elevated white blood cell count, unspecified; F32.A Depression, unspecified; F41.9 Anxiety disorder, unspecified; Z79.899 Other long term (current) drug therapy; Z95.2 Presence of prosthetic heart valve; Z87.891 Personal history of nicotine dependence

== ENCOUNTER → 2022-11-01 | Outpatient (CLI) | payer MEDICARE, OTHER ==
[~2022-11-01] MED LIST changes: +METF-838 PO; +NYST1POW9 TOP
== END ==
LOC: M LABSMTC 10:29
PROVIDERS: ATTEND Anesthesiology
DX: Z01.812 Encounter for preprocedural laboratory examination (principal); Z11.52 Encounter for screening for COVID-19

== ENCOUNTER 2022-11-13 22:07 | Inpatient (IN) | payer MEDICARE, OTHER ==
[~2022-11-13] VITALS: Ht 188 cm; Wt 80.8 kg
[2022-11-13] MEDS ORDERED: ACETAMINOPHEN TAB 650MG DOSE (2X325MG) PO ONE (23:15)
[2022-11-13 23:52] LABS: HEMATOCRIT 38.3 % (42.0-52.0); HEMOGLOBIN 11.8 g/dl (13.5-17.5); MEAN CORPUSCULAR HEMOGLOBIN 26.1 pg (27.0-33.0); MEAN CORPUSCULAR HGB CONC 30.8 g/dl (32.0-36.5); MEAN CORPUSCULAR VOLUME 84.7 fl (80.0-96.0); PLATELET COUNT, AUTOMATED 158 10^3/uL (150-450); RED BLOOD COUNT 4.52 10^6/uL (4.30-6.10); WHITE BLOOD COUNT 12.2 10^3/uL (4.0-10.0)
[2022-11-14 00:13] LABS: LIPASE 15 U/L (12-53)
[2022-11-14 00:14] LABS: ETHYL ALCOHOL (ETHANOL) 0.003 % (0.000-0.010); VALPROIC ACID (DEPAKOTE) 22.1 UG/ML (50.0-100.0)
[2022-11-14 00:15] LABS: BILIRUBIN,DIRECT 0.2 MG/DL (<0.4)
[2022-11-14 00:16] LABS: ALBUMIN 2.6 G/DL (3.2-5.2); ALKALINE PHOSPHATASE 87 U/L (46-116); ALT/SGPT 15 U/L (7.0-40); AST/SGOT 33 U/L (<34); BILIRUBIN,TOTAL 0.4 MG/DL (0.3-1.2); BLOOD UREA NITROGEN 15 MG/DL (9-23); CALCIUM LEVEL 7.5 MG/DL (8.3-10.6); CARBON DIOXIDE LEVEL 25 MMOL/L (20-31); CHLORIDE LEVEL 107 MMOL/L (98-107); CREATININE FOR GFR 0.89 MG/DL (0.70-1.30); GLOMERULAR FILTRATION RATE > 60.0 (>42); GLUCOSE, FASTING 60 MG/DL (74-106); POTASSIUM SERUM 4.4 MMOL/L (3.5-5.1); SODIUM LEVEL 141 MMOL/L (136-145); TOTAL PROTEIN 5.4 G/DL (5.7-8.2)
[2022-11-14 00:18] LABS: THYROID STIMULATING HORMONE 10.261 uIU/ML (0.55-4.78)
[2022-11-14 00:50] LABS: ATYPICAL LYMPH 16 % (0-5); LYMPHOCYTES 9 % (16-44); MONOCYTES 4 % (0-5); NEUTROPHILS 71 % (28-66)
[2022-11-14 00:51] LABS: PLATELET ESTIMATE NORMAL (NORMAL)
[2022-11-14 00:52] LABS: ANISOCYTOSIS 2+; OVALOCYTES 1+; POIKILOCYTOSIS 1+
[2022-11-14] MEDS ORDERED: PIPERACILLIN/TAZOBACTAM SOD 4.5 GM in D5W MINI-BAG PLUS 50 ML IV ONE (01:15)
[2022-11-14] MEDS ORDERED: DEXTROSE 50% 50ML SYRINGE IV STA (03:58)
[2022-11-14] MEDS ORDERED: NS 1,000 ML IV SCH ×2 (04:10→14:50)
[2022-11-14] MEDS ORDERED: NS 500 ML IV ONE ×2 (04:10→13:50)
[2022-11-14] MEDS ORDERED: GLUCAGON INJ 1MG VIAL SC PRN (04:10)
[2022-11-14] MEDS ORDERED: GLUCOSE 4GM CHEW TABLET PO PRN (04:10)
[2022-11-14] MEDS ORDERED: ALBUTEROL SULFATE 2.5MG/0.5ML INH NEB SOLN NEB PRN (05:00)
[2022-11-14 05:16] LABS: BASO % 0.1 % (0.0-1.0); HEMATOCRIT 37.6 % (42.0-52.0); HEMOGLOBIN 11.7 g/dl (13.5-17.5); LYMPH # 2.9 10^3/uL (1.5-5.0); LYMPH % 43.8 % (24.0-44.0); MEAN CORPUSCULAR HEMOGLOBIN 26.4 pg (27.0-33.0); MEAN CORPUSCULAR HGB CONC 31.1 g/dl (32.0-36.5); MEAN CORPUSCULAR VOLUME 84.7 fl (80.0-96.0); MONO # 0.2 10^3/uL (0.0-0.8); MONO % 3.3 % (2.0-8.0); NEUTROPHILS # 3.5 10^3/uL (1.5-8.5); NEUTROPHILS % 51.9 % (36.0-66.0); RED BLOOD COUNT 4.44 10^6/uL (4.30-6.10); WHITE BLOOD COUNT 6.7 10^3/uL (4.0-10.0)
[2022-11-14 05:17] VITALS: BP 127/74
[2022-11-14 05:29] LABS: ERYTHROCYTE SEDIMENTATION RATE 1 mm/hr (0-20)
[2022-11-14 05:43] LABS: PLATELET COUNT, AUTOMATED 91 10^3/uL (150-450)
[2022-11-14 05:49] LABS: FREE T4 1.02 NG/DL (0.89-1.76)
[2022-11-14 05:52] LABS: ALBUMIN 2.4 G/DL (3.2-5.2); ALKALINE PHOSPHATASE 77 U/L (46-116); ALT/SGPT 13 U/L (7.0-40); AST/SGOT 23 U/L (<34); BILIRUBIN,TOTAL 0.5 MG/DL (0.3-1.2); BLOOD UREA NITROGEN 16 MG/DL (9-23); CALCIUM LEVEL 7.9 MG/DL (8.3-10.6); CARBON DIOXIDE LEVEL 23 MMOL/L (20-31); CHLORIDE LEVEL 110 MMOL/L (98-107); CREATININE FOR GFR 0.92 MG/DL (0.70-1.30); GLOMERULAR FILTRATION RATE > 60.0 (>42); GLUCOSE, FASTING 74 MG/DL (74-106); POTASSIUM SERUM 3.5 MMOL/L (3.5-5.1); SODIUM LEVEL 144 MMOL/L (136-145); TOTAL PROTEIN 4.7 G/DL (5.7-8.2)
[2022-11-14 05:59] LABS: MONO SCRN NEGATIVE (NEGATIVE)
[2022-11-14] MEDS ORDERED: NYST1POW9 TOP (06:38)
[2022-11-14] MEDS ORDERED: OMEP40CA5 PO (06:38)
[2022-11-14] MEDS ORDERED: C 50TAB PO (06:38)
[2022-11-14] MEDS ORDERED: FERR1TAB8 PO (06:38)
[2022-11-14] MEDS ORDERED: TRES1INJ2 SC (06:38)
[2022-11-14] MEDS ORDERED: HOME MED LIST COMPLETE! XX SCH (06:40)
[2022-11-14 08:00] VITALS: BP 120/76
[2022-11-14] MEDS: PIPERACILLIN/TAZOBACTAM SOD 3.375 GM in D5W MINI-BAG PLUS 50 ML IV SCH ×3 (08:34→21:56)
[2022-11-14 11:28] LABS: HIV 1&2 SCREEN CENTAUR NEGATIVE (NEGATIVE)
[2022-11-14 12:00] VITALS: BP 127/73
[2022-11-14 13:04] LABS: CREATININE,RANDOM URINE 188.6 MG/DL
[2022-11-14 13:06] LABS: TOTAL PROTEIN,RANDOM URINE 174.4 MG/DL (0.0-14.0)
[2022-11-14 13:26] LABS: IMMUNOGLOBULIN G 716 MG/DL (650-1600)
[2022-11-14] MEDS ORDERED: NS 1,000 ML IV ONE (16:05)
[2022-11-14] MEDS ORDERED: VANCOMYCIN HCL 750 MG, VIAL MATE ADAPTER 1 EACH in NS 250 ML IV SCH (16:10)
[2022-11-14] MEDS: ACETAMINOPHEN TAB 650MG DOSE (2X325MG) PO PRN (16:19)
[2022-11-14 16:29] VITALS: BP 120/78
[2022-11-14] MEDS ORDERED: SYMBICORT 80/4.5MCG INHALER 6GM INH PRN (16:35)
[2022-11-14] MEDS ORDERED: VANCOMYCIN HCL 1,000 MG, VIAL MATE ADAPTER 1 EACH in D5W 250 ML IV ONE (18:00)
[2022-11-14] MEDS: PRAVASTATIN 20 MG TAB PO SCH (18:14)
[2022-11-14] MEDS: NYSTATIN 100,000 UNITS/GM TOPICAL PWD 15GM TOP SCH (18:15)
[2022-11-14] MEDS ORDERED: VANCOMYCIN HCL 750 MG, VIAL MATE ADAPTER 1 EACH in D5W 250 ML IV ONE (19:00)
[2022-11-14 19:28] VITALS: BP 104/54
[2022-11-14] MEDS: TAMSULOSIN 0.4 MG CAP PO SCH (21:56)
[2022-11-14] MEDS: DIVALPROEX 250MG TAB PO SCH (21:56)
[2022-11-14] MEDS: QUEtiapine FUMARATE 50MG TAB PO SCH (21:56)
[2022-11-14] MEDS: DABIGATRAN ETEXILATE 75 MG CAP (PRADAXA) PO SCH (21:59)
[2022-11-14 23:52] VITALS: BP 119/61
[2022-11-15] VITALS (7 sets, daily range): BP systolic 106–134; BP diastolic 59–87
[2022-11-15] MEDS: PIPERACILLIN/TAZOBACTAM SOD 3.375 GM in D5W MINI-BAG PLUS 50 ML IV SCH ×4 (04:10→21:10)
[2022-11-15] MEDS: VANCOMYCIN HCL 750 MG, VIAL MATE ADAPTER 1 EACH in D5W 250 ML IV SCH ×2 (04:56→17:02)
[2022-11-15] MEDS: VANCOMYCIN HCL 500 MG in D5W MINI-BAG PLUS 100 ML IV SCH ×2 (05:41→18:13)
[2022-11-15 07:51] LABS: HEMATOCRIT 34.5 % (42.0-52.0); HEMOGLOBIN 10.7 g/dl (13.5-17.5); MEAN CORPUSCULAR HEMOGLOBIN 26.6 pg (27.0-33.0); MEAN CORPUSCULAR VOLUME 85.6 fl (80.0-96.0); RED BLOOD COUNT 4.03 10^6/uL (4.30-6.10); WHITE BLOOD COUNT 12.7 10^3/uL (4.0-10.0)
[2022-11-15 08:04] LABS: MAGNESIUM LEVEL 1.1 MG/DL (1.8-2.4)
[2022-11-15 08:07] LABS: ALBUMIN 1.8 G/DL (3.2-5.2); ALKALINE PHOSPHATASE 66 U/L (46-116); ALT/SGPT 14 U/L (7.0-40); AST/SGOT 30 U/L (<34); BILIRUBIN,TOTAL 0.4 MG/DL (0.3-1.2); BLOOD UREA NITROGEN 21 MG/DL (9-23); CALCIUM LEVEL 7.2 MG/DL (8.3-10.6); CARBON DIOXIDE LEVEL 22 MMOL/L (20-31); CHLORIDE LEVEL 110 MMOL/L (98-107); CREATININE FOR GFR 1.06 MG/DL (0.70-1.30); GLOMERULAR FILTRATION RATE > 60.0 (>42); GLUCOSE, FASTING 83 MG/DL (74-106); POTASSIUM SERUM 3.4 MMOL/L (3.5-5.1); SODIUM LEVEL 141 MMOL/L (136-145)
[2022-11-15 08:15] LABS: PLATELET COUNT, AUTOMATED 89 10^3/uL (150-450)
[2022-11-15 09:12] LABS: ATYPICAL LYMPH 15 % (0-5); EOSINOPHILS 1 % (0-3); LYMPHOCYTES 17 % (16-44); METAMYELOCYTES 1 % (0-0); MONOCYTES 5 % (0-5); NEUTROPHILS 43 % (28-66)
[2022-11-15 09:13] LABS: SMUDGE CELLS 2+
[2022-11-15 09:14] LABS: PLATELET ESTIMATE DECREASED (NORMAL); POIKILOCYTOSIS 1+
[2022-11-15 09:15] LABS: ANISOCYTOSIS 2+; HYPOCHROMASIA 1+
[2022-11-15 09:16] LABS: OVALOCYTES 1+
[2022-11-15] MEDS: DABIGATRAN ETEXILATE 75 MG CAP (PRADAXA) PO SCH ×2 (10:06→21:10)
[2022-11-15] MEDS: FERROUS SULFATE 325MG TAB PO SCH (10:08)
[2022-11-15] MEDS: ASPIRIN 81MG ENTERIC TABLET PO SCH (10:08)
[2022-11-15] MEDS: FLUoxetine 20MG CAP PO SCH (10:08)
[2022-11-15] MEDS: ASCORBIC ACID 500 MG TAB PO SCH (10:10)
[2022-11-15] MEDS: DIVALPROEX 250MG TAB PO SCH ×2 (10:10→21:11)
[2022-11-15] MEDS: buPROPion **XL** TABLET 150MG (WELLBUTRIN XL) PO SCH (10:10)
[2022-11-15] MEDS: allopurinoL 100 MG TAB PO SCH (10:11)
[2022-11-15] MEDS: OMEPRAZOLE 20MG CAP PO SCH (10:11)
[2022-11-15] MEDS: NYSTATIN 100,000 UNITS/GM TOPICAL PWD 15GM TOP SCH (10:12)
[2022-11-15] MEDS: MAG SULF 1GM/100ML (MAG RUN) 1 GM in IV 1 EA IV SCH ×5 (10:35→19:47)
[2022-11-15] MEDS ORDERED: POTASSIUM CHLORIDE 10MEQ SR TABLET PO ONE (11:00)
[2022-11-15] MEDS ORDERED: FUROSEMIDE 40MG/4ML VIAL IV ONE (13:45)
[2022-11-15] MEDS ORDERED: LIDOCAINE 1% MDV 20ML VIAL As Ordered ONE (13:50)
[2022-11-15] MEDS: ACETAMINOPHEN TAB 650MG DOSE (2X325MG) PO PRN (15:56)
[2022-11-15] MEDS: PRAVASTATIN 20 MG TAB PO SCH (15:57)
[2022-11-15 16:52] LABS: MAGNESIUM LEVEL 1.4 MG/DL (1.8-2.4)
[2022-11-15 16:53] LABS: VANCOMYCIN LEVEL TROUGH 13.2 UG/ML (10.0-20.0)
[2022-11-15] MEDS: SODIUM CHLORIDE 0.9% INJ 10 ML SYR IV SCH (19:47)
[2022-11-15] MEDS ORDERED: MAG SULF 1GM/100ML (MAG RUN) 1 GM in IV 1 EA IV SCH (20:00)
[2022-11-15] MEDS: TAMSULOSIN 0.4 MG CAP PO SCH (21:10)
[2022-11-15] MEDS: QUEtiapine FUMARATE 50MG TAB PO SCH (21:11)
[2022-11-16 00:26] VITALS: BP 139/62
[2022-11-16] MEDS: PIPERACILLIN/TAZOBACTAM SOD 3.375 GM in D5W MINI-BAG PLUS 50 ML IV SCH ×4 (03:05→21:04)
[2022-11-16] MEDS: VANCOMYCIN HCL 750 MG, VIAL MATE ADAPTER 1 EACH in D5W 250 ML IV SCH (03:58)
[2022-11-16 04:41] VITALS: BP 131/70
[2022-11-16] MEDS: VANCOMYCIN HCL 500 MG in D5W MINI-BAG PLUS 100 ML IV SCH (05:28)
[2022-11-16] MEDS: SODIUM CHLORIDE 0.9% INJ 10 ML SYR IV SCH ×2 (05:28→17:21)
[2022-11-16 06:25] LABS: MAGNESIUM LEVEL 1.5 MG/DL (1.8-2.4)
[2022-11-16 06:27] LABS: BLOOD UREA NITROGEN 18 MG/DL (9-23); CALCIUM LEVEL 6.9 MG/DL (8.3-10.6); CARBON DIOXIDE LEVEL 26 MMOL/L (20-31); CHLORIDE LEVEL 105 MMOL/L (98-107); CREATININE FOR GFR 1.02 MG/DL (0.70-1.30); GLOMERULAR FILTRATION RATE > 60.0 (>42); GLUCOSE, FASTING 288 MG/DL (74-106); POTASSIUM SERUM 3.5 MMOL/L (3.5-5.1); SODIUM LEVEL 138 MMOL/L (136-145)
[2022-11-16] MEDS ORDERED: MAG SULF 1GM/100ML (MAG RUN) 1 GM in IV 1 EA IV ONE ×3 (07:00)
[2022-11-16 07:36] LABS: HEMATOCRIT 29.3 % (42.0-52.0); HEMOGLOBIN 9.5 g/dl (13.5-17.5); MEAN CORPUSCULAR HEMOGLOBIN 26.7 pg (27.0-33.0); MEAN CORPUSCULAR HGB CONC 32.4 g/dl (32.0-36.5); MEAN CORPUSCULAR VOLUME 82.3 fl (80.0-96.0); PLATELET COUNT, AUTOMATED 72 10^3/uL (150-450); RED BLOOD COUNT 3.56 10^6/uL (4.30-6.10); WHITE BLOOD COUNT 8.2 10^3/uL (4.0-10.0)
[2022-11-16] MEDS: MAG SULF 1GM/100ML (MAG RUN) 1 GM in IV 1 EA IV SCH ×2 (07:58→09:06)
[2022-11-16 08:00] VITALS: BP 152/76
[2022-11-16 08:04] LABS: ANISOCYTOSIS 2+; EOSINOPHILS 3 % (0-3); LYMPHOCYTES 23 % (16-44); MONOCYTES 3 % (0-5); NEUTROPHILS 69 % (28-66); OVALOCYTES 1+; PLATELET ESTIMATE MARKED DECREASE (NORMAL); POIKILOCYTOSIS 2+; SCHISTOCYTES 1+; SMUDGE CELLS 1+
[2022-11-16] MEDS: OMEPRAZOLE 20MG CAP PO SCH (09:05)
[2022-11-16] MEDS: INSULIN LISPRO (NovoLOG) PER UNIT SC SCH ×4 (09:05→21:00)
[2022-11-16] MEDS: buPROPion **XL** TABLET 150MG (WELLBUTRIN XL) PO SCH (09:05)
[2022-11-16] MEDS: DABIGATRAN ETEXILATE 75 MG CAP (PRADAXA) PO SCH ×2 (09:05→21:05)
[2022-11-16] MEDS: allopurinoL 100 MG TAB PO SCH (09:06)
[2022-11-16] MEDS: FERROUS SULFATE 325MG TAB PO SCH (09:06)
[2022-11-16] MEDS: FLUoxetine 20MG CAP PO SCH (09:06)
[2022-11-16] MEDS: ASPIRIN 81MG ENTERIC TABLET PO SCH (09:06)
[2022-11-16] MEDS: DIVALPROEX 250MG TAB PO SCH ×2 (09:06→21:05)
[2022-11-16] MEDS: ASCORBIC ACID 500 MG TAB PO SCH (09:06)
[2022-11-16] MEDS: NYSTATIN 100,000 UNITS/GM TOPICAL PWD 15GM TOP SCH (09:07)
[2022-11-16 12:00] VITALS: BP 127/90
[2022-11-16] MEDS ORDERED: FUROSEMIDE 40MG/4ML VIAL IV ONE ×2 (13:25→21:00)
[2022-11-16] MEDS ORDERED: POTASSIUM CHLORIDE 10MEQ SR TABLET PO ONE (14:25)
[2022-11-16 16:11] VITALS: BP 131/82
[2022-11-16] MEDS: PRAVASTATIN 20 MG TAB PO SCH (17:20)
[2022-11-16] MEDS ORDERED: FUROSEMIDE 40MG/4ML VIAL IV SCH (19:00)
[2022-11-16 20:47] VITALS: BP 138/64
[2022-11-16] MEDS: TAMSULOSIN 0.4 MG CAP PO SCH (21:05)
[2022-11-16] MEDS: QUEtiapine FUMARATE 50MG TAB PO SCH (21:05)
[2022-11-16] MEDS ORDERED: METOPROLOL TART 50 MG TAB PO ONE (22:50)
[2022-11-17 00:56] VITALS: BP 123/66
[2022-11-17] MEDS: PIPERACILLIN/TAZOBACTAM SOD 3.375 GM in D5W MINI-BAG PLUS 50 ML IV SCH ×2 (02:29→08:40)
[2022-11-17 05:30] VITALS: BP 144/82
[2022-11-17] MEDS: ACETAMINOPHEN TAB 650MG DOSE (2X325MG) PO PRN (05:56)
[2022-11-17] MEDS: SODIUM CHLORIDE 0.9% INJ 10 ML SYR IV SCH ×2 (05:57→17:04)
[2022-11-17 06:11] LABS: BASO % 0.1 % (0.0-1.0); EOS # 0.2 10^3/uL (0.0-0.5); EOS % 2.6 % (0.0-3.0); HEMATOCRIT 30.4 % (42.0-52.0); LYMPH # 3.3 10^3/uL (1.5-5.0); LYMPH % 39.8 % (24.0-44.0); MEAN CORPUSCULAR HEMOGLOBIN 26.8 pg (27.0-33.0); MEAN CORPUSCULAR HGB CONC 32.9 g/dl (32.0-36.5); MEAN CORPUSCULAR VOLUME 81.5 fl (80.0-96.0); MONO # 0.3 10^3/uL (0.0-0.8); MONO % 3.5 % (2.0-8.0); NEUTROPHILS # 4.5 10^3/uL (1.5-8.5); NEUTROPHILS % 53.8 % (36.0-66.0); RED BLOOD COUNT 3.73 10^6/uL (4.30-6.10); WHITE BLOOD COUNT 8.4 10^3/uL (4.0-10.0)
[2022-11-17 06:15] LABS: PLATELET COUNT, AUTOMATED 84 10^3/uL (150-450)
[2022-11-17 06:52] LABS: MAGNESIUM LEVEL 1.3 MG/DL (1.8-2.4)
[2022-11-17 06:53] LABS: BLOOD UREA NITROGEN 13 MG/DL (9-23); CALCIUM LEVEL 7.2 MG/DL (8.3-10.6); CARBON DIOXIDE LEVEL 29 MMOL/L (20-31); CHLORIDE LEVEL 105 MMOL/L (98-107); CREATININE FOR GFR 0.94 MG/DL (0.70-1.30); GLOMERULAR FILTRATION RATE > 60.0 (>42); GLUCOSE, FASTING 170 MG/DL (74-106); POTASSIUM SERUM 3.7 MMOL/L (3.5-5.1); SODIUM LEVEL 142 MMOL/L (136-145)
[2022-11-17] MEDS: MAG SULF 1GM/100ML (MAG RUN) 1 GM in IV 1 EA IV SCH ×4 (07:29→11:20)
[2022-11-17 08:18] VITALS: BP 150/84
[2022-11-17] MEDS: INSULIN LISPRO (NovoLOG) PER UNIT SC SCH ×4 (08:36→21:00)
[2022-11-17] MEDS: DABIGATRAN ETEXILATE 75 MG CAP (PRADAXA) PO SCH ×2 (08:38→21:24)
[2022-11-17] MEDS: FUROSEMIDE 40MG/4ML VIAL IV SCH ×2 (08:38→17:04)
[2022-11-17] MEDS: buPROPion **XL** TABLET 150MG (WELLBUTRIN XL) PO SCH (08:39)
[2022-11-17] MEDS: POTASSIUM CHLORIDE 10MEQ SR TABLET PO SCH (08:39)
[2022-11-17] MEDS: OMEPRAZOLE 20MG CAP PO SCH (08:39)
[2022-11-17] MEDS: allopurinoL 100 MG TAB PO SCH (08:39)
[2022-11-17] MEDS: FLUoxetine 20MG CAP PO SCH (08:39)
[2022-11-17] MEDS: ASPIRIN 81MG ENTERIC TABLET PO SCH (08:39)
[2022-11-17] MEDS: ASCORBIC ACID 500 MG TAB PO SCH (08:40)
[2022-11-17] MEDS: FERROUS SULFATE 325MG TAB PO SCH (08:40)
[2022-11-17] MEDS: METOPROLOL SUCC (TopROL XL) 50MG **XL** TAB PO SCH (08:40)
[2022-11-17] MEDS: DIVALPROEX 250MG TAB PO SCH ×2 (08:40→21:24)
[2022-11-17] MEDS: NYSTATIN 100,000 UNITS/GM TOPICAL PWD 15GM TOP SCH (08:41)
[2022-11-17] MEDS ORDERED: KCL 10MEQ/100ML SWI (KRUN) 10 MEQ in IV 1 EA IV ONE (09:15)
[2022-11-17 16:00] VITALS: BP 133/87
[2022-11-17] MEDS: PRAVASTATIN 20 MG TAB PO SCH (17:04)
[2022-11-17] MEDS ORDERED: MOXIFLOXACIN 400 MG TAB PO SCH (18:00)
[2022-11-17 20:00] VITALS: BP 124/82
[2022-11-17] MEDS: TAMSULOSIN 0.4 MG CAP PO SCH (21:24)
[2022-11-17] MEDS: cefTRIAXone SOD 2 GM in D5W MINI-BAG PLUS 50 ML IV SCH (21:26)
[2022-11-17] MEDS: QUEtiapine FUMARATE 50MG TAB PO SCH (21:31)
[2022-11-18] VITALS: BP 125/76
[2022-11-18 04:00] VITALS: BP 119/79
[2022-11-18 05:19] LABS: BASO % 0.4 % (0.0-1.0); EOS # 0.2 10^3/uL (0.0-0.5); EOS % 5.1 % (0.0-3.0); HEMATOCRIT 29.6 % (42.0-52.0); HEMOGLOBIN 9.7 g/dl (13.5-17.5); LYMPH # 1.7 10^3/uL (1.5-5.0); LYMPH % 36.8 % (24.0-44.0); MEAN CORPUSCULAR HEMOGLOBIN 26.6 pg (27.0-33.0); MEAN CORPUSCULAR HGB CONC 32.8 g/dl (32.0-36.5); MEAN CORPUSCULAR VOLUME 81.3 fl (80.0-96.0); MONO # 0.3 10^3/uL (0.0-0.8); MONO % 6.4 % (2.0-8.0); NEUTROPHILS # 2.3 10^3/uL (1.5-8.5); NEUTROPHILS % 50.4 % (36.0-66.0); RED BLOOD COUNT 3.64 10^6/uL (4.30-6.10); WHITE BLOOD COUNT 4.5 10^3/uL (4.0-10.0)
[2022-11-18 05:27] LABS: BLOOD UREA NITROGEN 13 MG/DL (9-23); CARBON DIOXIDE LEVEL 28 MMOL/L (20-31); CHLORIDE LEVEL 104 MMOL/L (98-107); CREATININE FOR GFR 0.85 MG/DL (0.70-1.30); GLOMERULAR FILTRATION RATE > 60.0 (>42); GLUCOSE, FASTING 219 MG/DL (74-106); MAGNESIUM LEVEL 1.4 MG/DL (1.8-2.4); POTASSIUM SERUM 3.7 MMOL/L (3.5-5.1); SODIUM LEVEL 138 MMOL/L (136-145)
[2022-11-18 05:33] LABS: PLATELET COUNT, AUTOMATED 77 10^3/uL (150-450)
[2022-11-18] MEDS: SODIUM CHLORIDE 0.9% INJ 10 ML SYR IV SCH ×2 (06:00→16:56)
[2022-11-18] MEDS: MAG SULF 1GM/100ML (MAG RUN) 1 GM in IV 1 EA IV SCH ×3 (07:40→10:20)
[2022-11-18 08:00] VITALS: BP 126/69
[2022-11-18] MEDS: MAGNESIUM OXIDE 400MG TAB (MAG-OX) PO SCH ×2 (08:47→23:01)
[2022-11-18] MEDS: ASCORBIC ACID 500 MG TAB PO SCH (08:47)
[2022-11-18] MEDS: ASPIRIN 81MG ENTERIC TABLET PO SCH (08:47)
[2022-11-18] MEDS: OMEPRAZOLE 20MG CAP PO SCH (08:47)
[2022-11-18] MEDS: INSULIN LISPRO (NovoLOG) PER UNIT SC SCH ×4 (08:47→21:00)
[2022-11-18] MEDS: buPROPion **XL** TABLET 150MG (WELLBUTRIN XL) PO SCH (08:48)
[2022-11-18] MEDS: POTASSIUM CHLORIDE 10MEQ SR TABLET PO SCH (08:48)
[2022-11-18] MEDS: FLUoxetine 20MG CAP PO SCH (08:48)
[2022-11-18] MEDS: DABIGATRAN ETEXILATE 75 MG CAP (PRADAXA) PO SCH ×2 (08:48→23:01)
[2022-11-18] MEDS: ACETAMINOPHEN TAB 650MG DOSE (2X325MG) PO PRN (08:48)
[2022-11-18] MEDS: FUROSEMIDE 40MG/4ML VIAL IV SCH ×2 (08:49→16:56)
[2022-11-18] MEDS: allopurinoL 100 MG TAB PO SCH (08:49)
[2022-11-18] MEDS: FERROUS SULFATE 325MG TAB PO SCH (08:49)
[2022-11-18] MEDS: METOPROLOL SUCC (TopROL XL) 50MG **XL** TAB PO SCH (08:49)
[2022-11-18] MEDS: DIVALPROEX 250MG TAB PO SCH ×2 (08:49→23:01)
[2022-11-18] MEDS: NYSTATIN 100,000 UNITS/GM TOPICAL PWD 15GM TOP SCH (08:50)
[2022-11-18] MEDS ORDERED: LEVEMIR (INSULIN DETEMIR) 1 UNITS/0.01ML SC SCH (09:00)
[2022-11-18 12:00] VITALS: BP 129/60
[2022-11-18 16:00] VITALS: BP 126/69
[2022-11-18] MEDS: PRAVASTATIN 20 MG TAB PO SCH (16:56)
[2022-11-18 20:00] VITALS: BP 125/73
[2022-11-18] MEDS: TAMSULOSIN 0.4 MG CAP PO SCH (23:00)
[2022-11-18] MEDS: QUEtiapine FUMARATE 50MG TAB PO SCH (23:01)
[2022-11-18] MEDS: cefTRIAXone SOD 2 GM in D5W MINI-BAG PLUS 50 ML IV SCH (23:02)
[2022-11-19] VITALS: BP 119/71
[2022-11-19 04:00] VITALS: BP 112/59
[2022-11-19 05:10] LABS: HEMATOCRIT 32.5 % (42.0-52.0); HEMOGLOBIN 10.2 g/dl (13.5-17.5); MEAN CORPUSCULAR HEMOGLOBIN 26.7 pg (27.0-33.0); MEAN CORPUSCULAR HGB CONC 31.4 g/dl (32.0-36.5); MEAN CORPUSCULAR VOLUME 85.1 fl (80.0-96.0); RED BLOOD COUNT 3.82 10^6/uL (4.30-6.10); WHITE BLOOD COUNT 5.4 10^3/uL (4.0-10.0)
[2022-11-19 05:31] LABS: BLOOD UREA NITROGEN 14 MG/DL (9-23); CARBON DIOXIDE LEVEL 28 MMOL/L (20-31); CHLORIDE LEVEL 106 MMOL/L (98-107); CREATININE FOR GFR 1.02 MG/DL (0.70-1.30); GLOMERULAR FILTRATION RATE > 60.0 (>42); GLUCOSE, FASTING 41 MG/DL (74-106); MAGNESIUM LEVEL 1.6 MG/DL (1.8-2.4); POTASSIUM SERUM 3.8 MMOL/L (3.5-5.1); SODIUM LEVEL 141 MMOL/L (136-145)
[2022-11-19] MEDS: SODIUM CHLORIDE 0.9% INJ 10 ML SYR IV SCH ×2 (05:51→17:43)
[2022-11-19 06:05] LABS: PLATELET COUNT, AUTOMATED 91 10^3/uL (150-450)
[2022-11-19 06:21] LABS: ATYPICAL LYMPH 10 % (0-5); BASOPHILS 1 % (0-1); EOSINOPHILS 7 % (0-3); LYMPHOCYTES 30 % (16-44); MONOCYTES 8 % (0-5); NEUTROPHILS 42 % (28-66)
[2022-11-19 06:22] LABS: ANISOCYTOSIS 1+; HYPOCHROMASIA 2+; MICROCYTOSIS 1+; PLATELET ESTIMATE DECREASED (NORMAL); POIKILOCYTOSIS 1+
[2022-11-19 06:23] LABS: OVALOCYTES 1+; SMUDGE CELLS 1+
[2022-11-19] MEDS: INSULIN LISPRO (NovoLOG) PER UNIT SC SCH ×4 (07:30→21:00)
[2022-11-19] MEDS: DEXTROSE 50% 50ML SYRINGE IV PRN (07:40)
[2022-11-19] MEDS: MAG SULF 1GM/100ML (MAG RUN) 1 GM in IV 1 EA IV SCH ×2 (07:52→09:45)
[2022-11-19 08:00] VITALS: BP 129/74
[2022-11-19] MEDS ORDERED: CETACAINE SPRAY 5GM As Ordered ONE (08:00)
[2022-11-19] MEDS ORDERED: LIDOCAINE VISCOUS 2% SOLN 15ML UDC As Ordered ONE (08:00)
[2022-11-19] MEDS: OMEPRAZOLE 20MG CAP PO SCH (09:48)
[2022-11-19] MEDS: MAGNESIUM OXIDE 400MG TAB (MAG-OX) PO SCH ×2 (09:48→22:11)
[2022-11-19] MEDS: DABIGATRAN ETEXILATE 75 MG CAP (PRADAXA) PO SCH ×2 (09:49→22:12)
[2022-11-19] MEDS: ASPIRIN 81MG ENTERIC TABLET PO SCH (09:50)
[2022-11-19] MEDS: DIVALPROEX 250MG TAB PO SCH ×2 (09:51→22:11)
[2022-11-19] MEDS: POTASSIUM CHLORIDE 10MEQ SR TABLET PO SCH (09:51)
[2022-11-19] MEDS: FERROUS SULFATE 325MG TAB PO SCH (09:53)
[2022-11-19] MEDS: ASCORBIC ACID 500 MG TAB PO SCH (09:54)
[2022-11-19] MEDS: buPROPion **XL** TABLET 150MG (WELLBUTRIN XL) PO SCH (09:54)
[2022-11-19] MEDS: NYSTATIN 100,000 UNITS/GM TOPICAL PWD 15GM TOP SCH (09:56)
[2022-11-19] MEDS: FLUoxetine 20MG CAP PO SCH (09:56)
[2022-11-19] MEDS: allopurinoL 100 MG TAB PO SCH (09:56)
[2022-11-19] MEDS: FUROSEMIDE 40 MG TAB PO SCH ×2 (10:06→17:42)
[2022-11-19] MEDS: METOPROLOL SUCC (TopROL XL) 50MG **XL** TAB PO SCH (10:07)
[2022-11-19 16:00] VITALS: BP 140/82
[2022-11-19] MEDS ORDERED: LEVEMIR (INSULIN DETEMIR) 1 UNITS/0.01ML SC ONE (17:15)
[2022-11-19] MEDS: PRAVASTATIN 20 MG TAB PO SCH (17:42)
[2022-11-19] MEDS: SODIUM CHLORIDE 0.9% INJ 10 ML SYR IV PRN (17:44)
[2022-11-19 20:00] VITALS: BP 130/77
[2022-11-19] MEDS: cefTRIAXone SOD 2 GM in D5W MINI-BAG PLUS 50 ML IV SCH (22:10)
[2022-11-19] MEDS: TAMSULOSIN 0.4 MG CAP PO SCH (22:11)
[2022-11-19] MEDS: QUEtiapine FUMARATE 50MG TAB PO SCH (22:12)
[2022-11-20] VITALS: BP 133/74
[2022-11-20 04:00] VITALS: BP 128/72
[2022-11-20] MEDS: SODIUM CHLORIDE 0.9% INJ 10 ML SYR IV SCH ×2 (06:25→17:34)
[2022-11-20] MEDS: INSULIN LISPRO (NovoLOG) PER UNIT SC SCH ×2 (07:30→12:00)
[2022-11-20] MEDS: DEXTROSE 50% 50ML SYRINGE IV PRN (07:46)
[2022-11-20 08:00] VITALS: BP 123/81
[2022-11-20] MEDS ORDERED: LEVEMIR (INSULIN DETEMIR) 1 UNITS/0.01ML SC SCH (09:00)
[2022-11-20] MEDS: DABIGATRAN ETEXILATE 75 MG CAP (PRADAXA) PO SCH ×2 (09:46→20:11)
[2022-11-20] MEDS: ASPIRIN 81MG ENTERIC TABLET PO SCH (09:46)
[2022-11-20] MEDS: OMEPRAZOLE 20MG CAP PO SCH (09:46)
[2022-11-20] MEDS: MAGNESIUM OXIDE 400MG TAB (MAG-OX) PO SCH ×2 (09:47→20:11)
[2022-11-20] MEDS: buPROPion **XL** TABLET 150MG (WELLBUTRIN XL) PO SCH (09:47)
[2022-11-20] MEDS: DIVALPROEX 250MG TAB PO SCH ×2 (09:48→20:11)
[2022-11-20] MEDS: POTASSIUM CHLORIDE 10MEQ SR TABLET PO SCH (09:48)
[2022-11-20] MEDS: METOPROLOL SUCC (TopROL XL) 50MG **XL** TAB PO SCH (09:48)
[2022-11-20] MEDS: FLUoxetine 20MG CAP PO SCH (09:49)
[2022-11-20] MEDS: allopurinoL 100 MG TAB PO SCH (09:49)
[2022-11-20] MEDS: FERROUS SULFATE 325MG TAB PO SCH (09:49)
[2022-11-20] MEDS: ASCORBIC ACID 500 MG TAB PO SCH (09:49)
[2022-11-20] MEDS: FUROSEMIDE 40 MG TAB PO SCH ×2 (09:49→17:32)
[2022-11-20] MEDS: NYSTATIN 100,000 UNITS/GM TOPICAL PWD 15GM TOP SCH (09:50)
[2022-11-20 10:00] LABS: HEMOGLOBIN 11.6 g/dl (13.5-17.5); MEAN CORPUSCULAR HEMOGLOBIN 26.4 pg (27.0-33.0); MEAN CORPUSCULAR HGB CONC 31.4 g/dl (32.0-36.5); MEAN CORPUSCULAR VOLUME 84.3 fl (80.0-96.0); PLATELET COUNT, AUTOMATED 154 10^3/uL (150-450); RED BLOOD COUNT 4.39 10^6/uL (4.30-6.10); WHITE BLOOD COUNT 10.3 10^3/uL (4.0-10.0)
[2022-11-20 10:26] LABS: ATYPICAL LYMPH 7 % (0-5); BLOOD UREA NITROGEN 13 MG/DL (9-23); CALCIUM LEVEL 7.7 MG/DL (8.3-10.6); CARBON DIOXIDE LEVEL 29 MMOL/L (20-31); CHLORIDE LEVEL 104 MMOL/L (98-107); CREATININE FOR GFR 0.94 MG/DL (0.70-1.30); EOSINOPHILS 3 % (0-3); GLOMERULAR FILTRATION RATE > 60.0 (>42); GLUCOSE, FASTING 184 MG/DL (74-106); LYMPHOCYTES 44 % (16-44); MAGNESIUM LEVEL 1.8 MG/DL (1.8-2.4); MONOCYTES 6 % (0-5); NEUTROPHILS 38 % (28-66); POTASSIUM SERUM 5.7 MMOL/L (3.5-5.1); SMUDGE CELLS 2+; SODIUM LEVEL 139 MMOL/L (136-145)
[2022-11-20 10:27] LABS: OVALOCYTES 1+; PLATELET ESTIMATE NORMAL (NORMAL)
[2022-11-20 10:28] LABS: HYPOCHROMASIA 1+; PLATELET CLUMPS SMALL AMT
[2022-11-20 12:09] VITALS: BP 141/77
[2022-11-20 13:22] LABS: HEMATOCRIT 34.8 % (42.0-52.0); HEMOGLOBIN 11.2 g/dl (13.5-17.5); MEAN CORPUSCULAR HEMOGLOBIN 26.9 pg (27.0-33.0); MEAN CORPUSCULAR HGB CONC 32.2 g/dl (32.0-36.5); MEAN CORPUSCULAR VOLUME 83.5 fl (80.0-96.0); PLATELET COUNT, AUTOMATED 213 10^3/uL (150-450); RED BLOOD COUNT 4.17 10^6/uL (4.30-6.10); WHITE BLOOD COUNT 14.3 10^3/uL (4.0-10.0)
[2022-11-20 13:48] LABS: ATYPICAL LYMPH 14 % (0-5); BASOPHILS 1 % (0-1); EOSINOPHILS 2 % (0-3); LYMPHOCYTES 39 % (16-44); MONOCYTES 7 % (0-5); NEUTROPHILS 35 % (28-66)
[2022-11-20 13:49] LABS: HYPOCHROMASIA 1+; OVALOCYTES 1+; PLATELET ESTIMATE NORMAL (NORMAL); SMUDGE CELLS 2+
[2022-11-20 14:02] LABS: BLOOD UREA NITROGEN 13 MG/DL (9-23); CALCIUM LEVEL 7.8 MG/DL (8.3-10.6); CARBON DIOXIDE LEVEL 30 MMOL/L (20-31); CHLORIDE LEVEL 104 MMOL/L (98-107); GLOMERULAR FILTRATION RATE > 60.0 (>42); GLUCOSE, FASTING 210 MG/DL (74-106); POTASSIUM SERUM 4.4 MMOL/L (3.5-5.1); SODIUM LEVEL 139 MMOL/L (136-145)
[2022-11-20 16:22] VITALS: BP 127/84
[2022-11-20] MEDS: PRAVASTATIN 20 MG TAB PO SCH (17:33)
[2022-11-20] MEDS: SODIUM CHLORIDE 0.9% INJ 10 ML SYR IV PRN (17:34)
[2022-11-20] MEDS: SITagliptin 50 MG TAB (JANUVIA) PO SCH (17:40)
[2022-11-20] MEDS ORDERED: JANU100T PO (17:43)
[2022-11-20 20:00] VITALS: BP 125/65
[2022-11-20] MEDS: TAMSULOSIN 0.4 MG CAP PO SCH (20:11)
[2022-11-20] MEDS: QUEtiapine FUMARATE 50MG TAB PO SCH (20:11)
[2022-11-20] MEDS: cefTRIAXone SOD 2 GM in D5W MINI-BAG PLUS 50 ML IV SCH (20:11)
[2022-11-21] VITALS: BP 113/74
[2022-11-21 04:00] VITALS: BP 120/67
[2022-11-21] MEDS: SODIUM CHLORIDE 0.9% INJ 10 ML SYR IV SCH (04:54)
[2022-11-21 05:23] LABS: HEMATOCRIT 29.3 % (42.0-52.0); MEAN CORPUSCULAR HEMOGLOBIN 26.1 pg (27.0-33.0); MEAN CORPUSCULAR HGB CONC 31.1 g/dl (32.0-36.5); PLATELET COUNT, AUTOMATED 131 10^3/uL (150-450); RED BLOOD COUNT 3.49 10^6/uL (4.30-6.10); WHITE BLOOD COUNT 9.7 10^3/uL (4.0-10.0)
[2022-11-21 05:35] LABS: HEMOGLOBIN 9.1 g/dl (13.5-17.5)
[2022-11-21 05:40] LABS: BLOOD UREA NITROGEN 15 MG/DL (9-23); CALCIUM LEVEL 7.1 MG/DL (8.3-10.6); CARBON DIOXIDE LEVEL 30 MMOL/L (20-31); CHLORIDE LEVEL 104 MMOL/L (98-107); CREATININE FOR GFR 1.02 MG/DL (0.70-1.30); GLOMERULAR FILTRATION RATE > 60.0 (>42); GLUCOSE, FASTING 330 MG/DL (74-106); MAGNESIUM LEVEL 1.3 MG/DL (1.8-2.4); SODIUM LEVEL 138 MMOL/L (136-145)
[2022-11-21 06:05] LABS: ANISOCYTOSIS 2+; ATYPICAL LYMPH 8 % (0-5); BASOPHILS 1 % (0-1); BLAST CELLS 2 % (0-0); EOSINOPHILS 5 % (0-3); HYPOCHROMASIA 1+; LYMPHOCYTES 53 % (16-44); MONOCYTES 1 % (0-5); NEUTROPHILS 29 % (28-66); PLATELET ESTIMATE NORMAL (NORMAL)
[2022-11-21 08:05] VITALS: BP 130/68
[2022-11-21] MEDS: FERROUS SULFATE 325MG TAB PO SCH (09:12)
[2022-11-21] MEDS: ASPIRIN 81MG ENTERIC TABLET PO SCH (09:12)
[2022-11-21] MEDS: FLUoxetine 20MG CAP PO SCH (09:13)
[2022-11-21] MEDS: SITagliptin 50 MG TAB (JANUVIA) PO SCH (09:13)
[2022-11-21] MEDS: ASCORBIC ACID 500 MG TAB PO SCH (09:13)
[2022-11-21] MEDS: FUROSEMIDE 40 MG TAB PO SCH (09:13)
[2022-11-21] MEDS: buPROPion **XL** TABLET 150MG (WELLBUTRIN XL) PO SCH (09:13)
[2022-11-21] MEDS: DIVALPROEX 250MG TAB PO SCH (09:13)
[2022-11-21] MEDS: DABIGATRAN ETEXILATE 75 MG CAP (PRADAXA) PO SCH (09:13)
[2022-11-21 09:14] VITALS: BP 130/68
[2022-11-21] MEDS: allopurinoL 100 MG TAB PO SCH (09:14)
[2022-11-21] MEDS: MAGNESIUM OXIDE 400MG TAB (MAG-OX) PO SCH (09:14)
[2022-11-21] MEDS: MAG SULF 1GM/100ML (MAG RUN) 1 GM in IV 1 EA IV SCH ×2 (09:14→11:05)
[2022-11-21] MEDS: OMEPRAZOLE 20MG CAP PO SCH (09:14)
[2022-11-21] MEDS: METOPROLOL SUCC (TopROL XL) 50MG **XL** TAB PO SCH (09:14)
[2022-11-21] MEDS: NYSTATIN 100,000 UNITS/GM TOPICAL PWD 15GM TOP SCH (09:15)
[2022-11-21] MEDS ORDERED: JARD1TAB PO (12:58)
[2022-11-21] MEDS ORDERED: SEMA3TAB4 PO (12:59)
[2022-11-21 16:08] LABS: MYCOPLASMA PNEUMONIAE IgG 107 U/mL (0-99); MYCOPLASMA PNEUMONIAE IgM <770 U/mL (0-769)
== END 2022-11-21 15:50 | disposition home or self-care (01) | DRG 871 ==
LOC: EDBD 22:07 → M ED 22:07 → M ED INP 11-14 04:10 → ENRESERV 11-14 04:29 → M PCU 11-14 05:04
PROVIDERS: ADMIT Internal Medicine; ATTEND Internal Medicine
PROC: 02HV33Z Insertion of Infusion Device into Superior Vena Cava, Percutaneous Approach (ICD-10-PCS; principal; 2022-11-15 13:58)
DX: A41.9 Sepsis, unspecified organism (principal); I50.33 Acute on chronic diastolic (congestive) heart failure; C91.10 Chronic lymphocytic leukemia of B-cell type not having achieved remission; J90 Pleural effusion, not elsewhere classified; L97.909 Non-pressure chronic ulcer of unspecified part of unspecified lower leg with unspecified severity; E46 Unspecified protein-calorie malnutrition; I48.20 Chronic atrial fibrillation, unspecified; E87.20 Acidosis, unspecified; I13.0 Hypertensive heart and chronic kidney disease with heart failure and stage 1 through stage 4 chronic kidney disease, or unspecified chronic kidney disease; E11.649 Type 2 diabetes mellitus with hypoglycemia without coma; F03.90 Unspecified dementia, unspecified severity, without behavioral disturbance, psychotic disturbance, mood disturbance, and anxiety; J44.9 Chronic obstructive pulmonary disease, unspecified; E11.22 Type 2 diabetes mellitus with diabetic chronic kidney disease; N18.30 Chronic kidney disease, stage 3 unspecified; D64.9 Anemia, unspecified; K21.9 Gastro-esophageal reflux disease without esophagitis; I25.10 Atherosclerotic heart disease of native coronary artery without angina pectoris; E11.65 Type 2 diabetes mellitus with hyperglycemia; F32.A Depression, unspecified; M10.9 Gout, unspecified; Z79.899 Other long term (current) drug therapy; Z79.82 Long term (current) use of aspirin; Z87.891 Personal history of nicotine dependence; F41.9 Anxiety disorder, unspecified; E78.5 Hyperlipidemia, unspecified; R56.9 Unspecified convulsions; K57.30 Diverticulosis of large intestine without perforation or abscess without bleeding

== ENCOUNTER → 2022-11-30 | Outpatient (REF) | payer MEDICARE, OTHER ==
[~2022-11-30] MED LIST changes: +C 50TAB PO; +FERR1TAB8 PO; +JANU100T; +JANU100T PO; +JARD1TAB PO; +MELA10CA6 PO; +SEMA3TAB4 PO
== END ==
LOC: M SFHCADAM 13:52
PROVIDERS: ATTEND Physician Assistant
DX: Z53.9 Procedure and treatment not carried out, unspecified reason (principal)

== ENCOUNTER 2023-01-06 01:58 | Emergency (ER) | payer MEDICARE, OTHER ==
[~2023-01-06] VITALS: Ht 188 cm; Wt 76.6 kg
[~2023-01-06 01:58] MED LIST changes: +FLOM0.4C39 PO; -JANU100T; +PRIL20TA2 PO
[2023-01-06 03:28] LABS: BASO % 0.4 % (0.0-1.0); EOS # 0.1 10^3/uL (0.0-0.5); HEMATOCRIT 34.1 % (42.0-52.0); LYMPH # 3.6 10^3/uL (1.5-5.0); LYMPH % 50.8 % (24.0-44.0); MEAN CORPUSCULAR HEMOGLOBIN 28.9 pg (27.0-33.0); MEAN CORPUSCULAR HGB CONC 32.3 g/dl (32.0-36.5); MEAN CORPUSCULAR VOLUME 89.7 fl (80.0-96.0); MONO # 0.7 10^3/uL (0.0-0.8); MONO % 9.1 % (2.0-8.0); NEUTROPHILS # 2.7 10^3/uL (1.5-8.5); NEUTROPHILS % 37.4 % (36.0-66.0); PLATELET COUNT, AUTOMATED 114 10^3/uL (150-450); WHITE BLOOD COUNT 7.1 10^3/uL (4.0-10.0)
[2023-01-06 03:37] LABS: ALBUMIN 2.3 G/DL (3.2-5.2); BILIRUBIN,DIRECT 0.2 MG/DL (<0.4); BILIRUBIN,TOTAL 0.3 MG/DL (0.3-1.2); CK-MB VALUE MASS 4.7 NG/ML (<3.6); CREATININE FOR GFR 1.4 MG/DL (0.70-1.30); MB/CK RELATIVE INDEX 4.79 (< OR =4); POTASSIUM SERUM 4.3 MMOL/L (3.5-5.1); THYROID STIMULATING HORMONE 8.731 uIU/ML (0.55-4.78); TOTAL PROTEIN 4.3 G/DL (5.7-8.2)
[2023-01-06 03:47] LABS: RSV AMPLIFICATION NEGATIVE (NEGATIVE)
[2023-01-06 08:01] VITALS: BP 175/93
== END 2023-01-06 12:32 | disposition home or self-care (01) ==
LOC: EDBD 01:58 → M ED 01:58
DX: G31.84 Mild cognitive impairment of uncertain or unknown etiology (principal); E11.9 Type 2 diabetes mellitus without complications; F32.A Depression, unspecified; K21.9 Gastro-esophageal reflux disease without esophagitis; J44.9 Chronic obstructive pulmonary disease, unspecified; Z79.4 Long term (current) use of insulin; Z79.82 Long term (current) use of aspirin; Z79.810 Long term (current) use of selective estrogen receptor modulators (SERMs); Z79.899 Other long term (current) drug therapy

== ENCOUNTER → 2023-01-16 | Outpatient (REF) | payer MEDICARE, OTHER | LOC: M SFHCADAM 12:26 | PROVIDERS: ATTEND Physician Assistant | DX: R19.7 Diarrhea, unspecified (principal) ==

== ENCOUNTER → 2023-01-18 | Outpatient (REF) | payer MEDICARE, OTHER | LOC: M SFHCADAM 13:46 | PROVIDERS: ATTEND Physician Assistant | DX: R19.7 Diarrhea, unspecified (principal) ==

== ENCOUNTER 2023-03-17 14:34 | Emergency (ER) | payer MEDICARE, OTHER ==
[~2023-03-17] VITALS: Ht 188 cm; Wt 78.2 kg
[~2023-03-17 14:34] MED LIST changes: +LORA1TAB23 PO; -LORA1TAB4 PO
[2023-03-17] MEDS ORDERED: ACET325C5 PO (15:29)
[2023-03-17] MEDS ORDERED: WELLTAB40 PO (15:29)
[2023-03-17] MEDS ORDERED: TRES100I SC (15:29)
[2023-03-17] MEDS ORDERED: PROZ20CA11 PO (15:29)
[2023-03-17 17:20] LABS: ALBUMIN 2.9 G/DL (3.2-5.2); ALKALINE PHOSPHATASE 77 U/L (46-116); ALT/SGPT 35 U/L (7.0-40); AST/SGOT 20 U/L (<34); BILIRUBIN,DIRECT < 0.1 MG/DL (<0.4); BILIRUBIN,TOTAL 0.2 MG/DL (0.3-1.2); BLOOD UREA NITROGEN 18 MG/DL (9-23); C REACTIVE PROTEIN QUANTITATIV < 0.40 MG/DL (<1.0); CALCIUM LEVEL 7.8 MG/DL (8.3-10.6); CARBON DIOXIDE LEVEL 23 MMOL/L (20-31); CHLORIDE LEVEL 110 MMOL/L (98-107); CREATININE FOR GFR 0.89 MG/DL (0.70-1.30); GLOMERULAR FILTRATION RATE > 60.0 (>42); GLUCOSE, FASTING 225 MG/DL (74-106); POTASSIUM SERUM 3.6 MMOL/L (3.5-5.1); SODIUM LEVEL 142 MMOL/L (136-145); TOTAL PROTEIN 5.4 G/DL (5.7-8.2)
[2023-03-17 17:34] LABS: BASO % 0.6 % (0.0-1.0); EOS # 0.1 10^3/uL (0.0-0.5); EOS % 2.5 % (0.0-3.0); HEMATOCRIT 32.4 % (42.0-52.0); HEMOGLOBIN 10.3 g/dl (13.5-17.5); LYMPH # 2.4 10^3/uL (1.5-5.0); LYMPH % 49.3 % (24.0-44.0); MEAN CORPUSCULAR HEMOGLOBIN 30.6 pg (27.0-33.0); MEAN CORPUSCULAR HGB CONC 31.8 g/dl (32.0-36.5); MEAN CORPUSCULAR VOLUME 96.1 fl (80.0-96.0); MONO # 0.4 10^3/uL (0.0-0.8); MONO % 8.7 % (2.0-8.0); NEUTROPHILS # 1.9 10^3/uL (1.5-8.5); NEUTROPHILS % 38.5 % (36.0-66.0); RED BLOOD COUNT 3.37 10^6/uL (4.30-6.10); WHITE BLOOD COUNT 4.8 10^3/uL (4.0-10.0)
[2023-03-17 17:59] LABS: PLATELET COUNT, AUTOMATED 98 10^3/uL (150-450)
[2023-03-17 18:00] LABS: ERYTHROCYTE SEDIMENTATION RATE < 1 mm/hr (0-20)
[2023-03-17 20:20] VITALS: BP 143/95
== END 2023-03-17 23:41 | disposition home or self-care (01) ==
LOC: M ED 14:34 → EDBD 14:34 → M ED 23:41
DX: L53.9 Erythematous condition, unspecified (principal); R19.7 Diarrhea, unspecified; N18.9 Chronic kidney disease, unspecified; E11.9 Type 2 diabetes mellitus without complications; Z79.4 Long term (current) use of insulin; Z87.891 Personal history of nicotine dependence; Z79.83 Long term (current) use of bisphosphonates; Z79.82 Long term (current) use of aspirin; Z79.899 Other long term (current) drug therapy

== ENCOUNTER → 2023-04-20 | Outpatient (REF) | payer MEDICARE, OTHER ==
[~2023-04-20] MED LIST changes: +ACET325C5 PO; +LEVO1TAB40 PO; +MAGN500C2 PO; +NAPR220C23 PO; +PROZ20CA11 PO; +TRES100I SC; +WELLTAB40 PO
== END ==
LOC: M LAB REF 10:24
PROVIDERS: ATTEND Internal Medicine Gastroenterology
DX: R19.7 Diarrhea, unspecified (principal)

== ENCOUNTER 2023-04-21 17:00 | Inpatient (IN) | payer MEDICARE, OTHER ==
[~2023-04-21] VITALS: Ht 188 cm; Wt 79.2 kg
[~2023-04-21 17:00] MED LIST changes: -LEVO1TAB40 PO; -MAGN500C2 PO; -NAPR220C23 PO
[2023-04-21] MEDS ORDERED: NS 1,000 ML IV ONE (18:05)
[2023-04-21 18:15] LABS: HEMOGLOBIN 10.3 g/dl (13.5-17.5); MEAN CORPUSCULAR HEMOGLOBIN 30.4 pg (27.0-33.0); MEAN CORPUSCULAR HGB CONC 31.2 g/dl (32.0-36.5); MEAN CORPUSCULAR VOLUME 97.3 fl (80.0-96.0); PLATELET COUNT, AUTOMATED 105 10^3/uL (150-450); RED BLOOD COUNT 3.39 10^6/uL (4.30-6.10); WHITE BLOOD COUNT 8.4 10^3/uL (4.0-10.0)
[2023-04-21 18:26] LABS: BLOOD UREA NITROGEN 17 MG/DL (9-23); CALCIUM LEVEL 7.7 MG/DL (8.3-10.6); CARBON DIOXIDE LEVEL 27 MMOL/L (20-31); CHLORIDE LEVEL 111 MMOL/L (98-107); CREATININE FOR GFR 1.03 MG/DL (0.70-1.30); GLOMERULAR FILTRATION RATE > 60.0 (>42); GLUCOSE, FASTING 70 MG/DL (74-106); POTASSIUM SERUM 5.7 MMOL/L (3.5-5.1); SODIUM LEVEL 143 MMOL/L (136-145)
[2023-04-21] MEDS ORDERED: NS 1,000 ML IV SCH (19:15)
[2023-04-21] MEDS ORDERED: SOD POLYSTYRENE SULFONATE SUSP 15GM 60ML UD PO ONE (20:00)
[2023-04-21] MEDS ORDERED: QUEtiapine FUMARATE 50MG TAB PO SCH (21:00)
[2023-04-21] MEDS ORDERED: ACETAMINOPHEN TAB 650MG DOSE (2X325MG) PO PRN (22:20)
[2023-04-21] MEDS ORDERED: DEXTROSE 50% 50ML SYRINGE As Ordered ONE (22:44)
[2023-04-21] MEDS ORDERED: GLUCAGON INJ 1MG VIAL SC PRN (22:45)
[2023-04-21] MEDS ORDERED: GLUCOSE 4GM CHEW TABLET PO PRN (22:45)
[2023-04-21] MEDS ORDERED: D5W/0.9% SODIUM CHLORIDE 1,000 ML IV SCH (22:45)
[2023-04-21] MEDS ORDERED: DEXTROSE 50% 50ML SYRINGE IV STA (22:51)
[2023-04-21] MEDS ORDERED: JARD1TAB PO (22:52)
[2023-04-21] MEDS ORDERED: NAPR220C23 PO (22:54)
[2023-04-21] MEDS ORDERED: QUET1TAB17 PO (22:54)
[2023-04-21] MEDS ORDERED: HOME MED LIST COMPLETE! XX SCH (22:55)
[2023-04-21] MEDS ORDERED: NYSTATIN 100,000 UNITS/GM TOPICAL PWD 15GM TOP PRN (23:10)
[2023-04-21 23:23] LABS: RSV AMPLIFICATION NEGATIVE (NEGATIVE)
[2023-04-21] MEDS ORDERED: PILL CUTTER 1 EACH XX PRN (23:45)
[2023-04-22 01:00] VITALS: BP 145/86; TEMP 98.1; O2SAT 96
[2023-04-22] MEDS: SYMBICORT 80/4.5MCG INHALER 6GM INH SCH ×3 (01:21→19:51)
[2023-04-22] MEDS: DIVALPROEX 250MG TAB PO SCH ×3 (01:42→20:02)
[2023-04-22] MEDS: DABIGATRAN ETEXILATE 75 MG CAP (PRADAXA) PO SCH ×3 (01:42→20:01)
[2023-04-22] MEDS: TAMSULOSIN 0.4 MG CAP PO SCH ×2 (01:43→20:01)
[2023-04-22] MEDS: METOPROLOL SUCC (TopROL XL) 50MG **XL** TAB PO SCH ×2 (01:43→20:06)
[2023-04-22 02:33] LABS: BLOOD UREA NITROGEN 15 MG/DL (9-23); CALCIUM LEVEL 7.8 MG/DL (8.3-10.6); CARBON DIOXIDE LEVEL 24 MMOL/L (20-31); CHLORIDE LEVEL 112 MMOL/L (98-107); CREATININE FOR GFR 1.03 MG/DL (0.70-1.30); GLOMERULAR FILTRATION RATE > 60.0 (>42); GLUCOSE, FASTING 226 MG/DL (74-106); SODIUM LEVEL 141 MMOL/L (136-145)
[2023-04-22 02:59] LABS: HEMOGLOBIN A1c 6.2 % (4.0-6.0)
[2023-04-22] MEDS ORDERED: DEXTROSE 50% 50ML SYRINGE IV STA (05:00)
[2023-04-22] MEDS ORDERED: HumuLIN R (REGULAR) INSULIN (NovoLIN R) **100U/ML** PER UNIT IV STA (05:00)
[2023-04-22] MEDS ORDERED: CALCIUM CHLORIDE 10% 1 GM in D5W 100 ML IV ONE (05:00)
[2023-04-22 06:00] VITALS: BP 148/90; TEMP 97.9; O2SAT 96
[2023-04-22] MEDS ORDERED: CALCIUM GLUCONATE 1,000 MG in D5W MINI-BAG PLUS 100 ML IV ONE (06:00)
[2023-04-22] MEDS ORDERED: FUROSEMIDE 20MG/2ML VIAL IV ONE (06:00)
[2023-04-22 06:04] LABS: HEMOGLOBIN 9.2 g/dl (13.5-17.5); MEAN CORPUSCULAR HEMOGLOBIN 30.7 pg (27.0-33.0); MEAN CORPUSCULAR HGB CONC 31.7 g/dl (32.0-36.5); MEAN CORPUSCULAR VOLUME 96.7 fl (80.0-96.0); WHITE BLOOD COUNT 6.1 10^3/uL (4.0-10.0)
[2023-04-22 06:07] LABS: PLATELET COUNT, AUTOMATED 75 10^3/uL (150-450)
[2023-04-22 06:11] LABS: ALBUMIN 2.3 G/DL (3.2-5.2); ALKALINE PHOSPHATASE 66 U/L (46-116); ALT/SGPT 10 U/L (7.0-40); AST/SGOT 24 U/L (<34); BILIRUBIN,TOTAL 0.2 MG/DL (0.3-1.2); BLOOD UREA NITROGEN 16 MG/DL (9-23); CALCIUM LEVEL 7.6 MG/DL (8.3-10.6); CARBON DIOXIDE LEVEL 27 MMOL/L (20-31); CHLORIDE LEVEL 111 MMOL/L (98-107); CREATININE FOR GFR 0.94 MG/DL (0.70-1.30); GLOMERULAR FILTRATION RATE > 60.0 (>42); GLUCOSE, FASTING 108 MG/DL (74-106); MAGNESIUM LEVEL 1.4 MG/DL (1.8-2.4); POTASSIUM SERUM 4.7 MMOL/L (3.5-5.1); SODIUM LEVEL 141 MMOL/L (136-145); TOTAL PROTEIN 4.4 G/DL (5.7-8.2)
[2023-04-22] MEDS: buPROPion **XL** TABLET 150MG (WELLBUTRIN XL) PO SCH (09:25)
[2023-04-22] MEDS: QUEtiapine FUMARATE 25 MG TAB PO SCH ×2 (09:27→20:02)
[2023-04-22] MEDS: MULTIVITAMINS/MINERALS THERAP 1 TAB PO SCH (09:27)
[2023-04-22] MEDS: OMEPRAZOLE 20MG CAP PO SCH (09:27)
[2023-04-22] MEDS: allopurinoL 100 MG TAB PO SCH (09:27)
[2023-04-22] MEDS: FERROUS SULFATE 325MG TAB PO SCH ×2 (09:27→20:01)
[2023-04-22] MEDS: FLUoxetine 20MG CAP PO SCH (09:28)
[2023-04-22] MEDS: ASCORBIC ACID 500 MG TAB PO SCH ×2 (09:28→20:01)
[2023-04-22] MEDS: ASPIRIN 81MG ENTERIC TABLET PO SCH (09:28)
[2023-04-22] MEDS: DEXTROSE 50% 50ML SYRINGE IV PRN ×3 (09:44→13:11)
[2023-04-22] MEDS: D5W/0.9% SODIUM CHLORIDE 1,000 ML IV SCH (10:29)
[2023-04-22] MEDS: MAG SULF 1GM/100ML (MAG RUN) 1 GM in IV 1 EA IV SCH ×3 (12:00→19:07)
[2023-04-22 14:00] VITALS: BP 144/84; TEMP 97.5; O2SAT 99
[2023-04-22] MEDS ORDERED: OLANZapine INTRAMUSCULAR 10MG VIAL IM PRN (14:20)
[2023-04-22] MEDS ORDERED: MAG SULF 1GM/100ML (MAG RUN) 1 GM in IV 1 EA IV ONE (20:00)
[2023-04-22 20:05] VITALS: BP 148/88; TEMP 97.8; O2SAT 97
[2023-04-22] MEDS: PRAVASTATIN 20 MG TAB PO SCH (20:46)
[2023-04-22 23:10] VITALS: BP 144/87; TEMP 97.2; O2SAT 97
[2023-04-23] MEDS ORDERED: HALOPERIDOL 5MG/ML 1ML VIAL IM ONE
[2023-04-23] MEDS: D5W/0.9% SODIUM CHLORIDE 1,000 ML IV SCH ×2 (00:45→10:45)
[2023-04-23 03:35] VITALS: BP 119/61; TEMP 97; O2SAT 98
[2023-04-23 06:41] LABS: HEMATOCRIT 28.1 % (42.0-52.0); HEMOGLOBIN 8.6 g/dl (13.5-17.5); MEAN CORPUSCULAR HGB CONC 30.6 g/dl (32.0-36.5); MEAN CORPUSCULAR VOLUME 97.9 fl (80.0-96.0); RED BLOOD COUNT 2.87 10^6/uL (4.30-6.10); WHITE BLOOD COUNT 5.6 10^3/uL (4.0-10.0)
[2023-04-23 06:44] LABS: PLATELET COUNT, AUTOMATED 86 10^3/uL (150-450)
[2023-04-23 07:03] LABS: BLOOD UREA NITROGEN 14 MG/DL (9-23); CALCIUM LEVEL 7.2 MG/DL (8.3-10.6); CARBON DIOXIDE LEVEL 24 MMOL/L (20-31); CHLORIDE LEVEL 113 MMOL/L (98-107); CREATININE FOR GFR 0.77 MG/DL (0.70-1.30); GLOMERULAR FILTRATION RATE > 60.0 (>42); GLUCOSE, FASTING 90 MG/DL (74-106); MAGNESIUM LEVEL 1.7 MG/DL (1.8-2.4); POTASSIUM SERUM 4.2 MMOL/L (3.5-5.1); SODIUM LEVEL 143 MMOL/L (136-145)
[2023-04-23 07:22] LABS: ATYPICAL LYMPH 4 % (0-5); EOSINOPHILS 6 % (0-3); HYPOCHROMASIA 1+; LYMPHOCYTES 63 % (16-44); MONOCYTES 6 % (0-5); NEUTROPHILS 21 % (28-66); PLATELET ESTIMATE DECREASED (NORMAL)
[2023-04-23 07:53] VITALS: BP 138/77; TEMP 96.9; O2SAT 98
[2023-04-23] MEDS ORDERED: MAG SULF 1GM/100ML (MAG RUN) 1 GM in IV 1 EA IV ONE (08:00)
[2023-04-23 08:25] LABS: PROCALCITONIN 0.09 ng/ml
[2023-04-23] MEDS: SYMBICORT 80/4.5MCG INHALER 6GM INH SCH ×2 (08:54→19:40)
[2023-04-23] MEDS: buPROPion **XL** TABLET 150MG (WELLBUTRIN XL) PO SCH (09:53)
[2023-04-23] MEDS: guaiFENesin ER 600 MG TAB PO SCH ×2 (09:54→21:08)
[2023-04-23] MEDS: DABIGATRAN ETEXILATE 75 MG CAP (PRADAXA) PO SCH ×2 (09:54→21:07)
[2023-04-23] MEDS: FLUoxetine 20MG CAP PO SCH (09:54)
[2023-04-23] MEDS: QUEtiapine FUMARATE 25 MG TAB PO SCH ×2 (09:54→21:07)
[2023-04-23] MEDS: DIVALPROEX 250MG TAB PO SCH ×2 (09:54→21:07)
[2023-04-23] MEDS: OMEPRAZOLE 20MG CAP PO SCH (09:54)
[2023-04-23] MEDS: ASCORBIC ACID 500 MG TAB PO SCH ×2 (09:54→21:08)
[2023-04-23] MEDS: allopurinoL 100 MG TAB PO SCH (09:54)
[2023-04-23] MEDS: FERROUS SULFATE 325MG TAB PO SCH ×2 (09:54→21:07)
[2023-04-23] MEDS: ASPIRIN 81MG ENTERIC TABLET PO SCH (09:54)
[2023-04-23] MEDS: MULTIVITAMINS/MINERALS THERAP 1 TAB PO SCH (09:55)
[2023-04-23] MEDS: LevoFLOXacin 750 MG TABLET PO SCH (10:05)
[2023-04-23] MEDS: INSULIN LISPRO (NovoLOG) PER UNIT SC SCH ×2 (12:00→17:21)
[2023-04-23 12:45] VITALS: BP 113/67; TEMP 97.4; O2SAT 93
[2023-04-23 15:44] VITALS: BP 129/76; TEMP 96.7; O2SAT 92
[2023-04-23 20:30] VITALS: BP 145/70; TEMP 98.7; O2SAT 98
[2023-04-23] MEDS ORDERED: INSULIN LISPRO (NovoLOG) PER UNIT SC SCH (21:00)
[2023-04-23] MEDS: TAMSULOSIN 0.4 MG CAP PO SCH (21:07)
[2023-04-23] MEDS: PRAVASTATIN 20 MG TAB PO SCH (21:08)
[2023-04-23 21:11] VITALS: BP 145/70
[2023-04-23] MEDS: METOPROLOL SUCC (TopROL XL) 50MG **XL** TAB PO SCH (21:11)
[2023-04-24 00:21] VITALS: BP 140/78; TEMP 97; O2SAT 99
[2023-04-24 04:49] VITALS: BP 158/89; TEMP 97; O2SAT 98
[2023-04-24] MEDS: LevoFLOXacin 750 MG TABLET PO SCH (06:24)
[2023-04-24] MEDS: ASPIRIN 81MG ENTERIC TABLET PO SCH (07:52)
[2023-04-24] MEDS: ASCORBIC ACID 500 MG TAB PO SCH (07:52)
[2023-04-24] MEDS: DIVALPROEX 250MG TAB PO SCH (07:52)
[2023-04-24] MEDS: FERROUS SULFATE 325MG TAB PO SCH (07:52)
[2023-04-24] MEDS: MULTIVITAMINS/MINERALS THERAP 1 TAB PO SCH (07:52)
[2023-04-24] MEDS: INSULIN LISPRO (NovoLOG) PER UNIT SC SCH ×2 (07:52→12:26)
[2023-04-24] MEDS: DABIGATRAN ETEXILATE 75 MG CAP (PRADAXA) PO SCH (07:52)
[2023-04-24] MEDS: OMEPRAZOLE 20MG CAP PO SCH (07:53)
[2023-04-24] MEDS: FLUoxetine 20MG CAP PO SCH (07:53)
[2023-04-24] MEDS: allopurinoL 100 MG TAB PO SCH (07:53)
[2023-04-24] MEDS: guaiFENesin ER 600 MG TAB PO SCH (07:53)
[2023-04-24] MEDS: QUEtiapine FUMARATE 25 MG TAB PO SCH (07:53)
[2023-04-24] MEDS: buPROPion **XL** TABLET 150MG (WELLBUTRIN XL) PO SCH (07:54)
[2023-04-24 07:59] VITALS: BP 118/61; TEMP 97.2; O2SAT 92
[2023-04-24 08:14] LABS: HEMATOCRIT 30.6 % (42.0-52.0); HEMOGLOBIN 9.6 g/dl (13.5-17.5); MEAN CORPUSCULAR HEMOGLOBIN 30.5 pg (27.0-33.0); MEAN CORPUSCULAR HGB CONC 31.4 g/dl (32.0-36.5); MEAN CORPUSCULAR VOLUME 97.1 fl (80.0-96.0); PLATELET COUNT, AUTOMATED 126 10^3/uL (150-450); RED BLOOD COUNT 3.15 10^6/uL (4.30-6.10); WHITE BLOOD COUNT 11.2 10^3/uL (4.0-10.0)
[2023-04-24 08:24] LABS: BLOOD UREA NITROGEN 13 MG/DL (9-23); CALCIUM LEVEL 8.4 MG/DL (8.3-10.6); CARBON DIOXIDE LEVEL 26 MMOL/L (20-31); CHLORIDE LEVEL 109 MMOL/L (98-107); CREATININE FOR GFR 0.78 MG/DL (0.70-1.30); GLOMERULAR FILTRATION RATE > 60.0 (>42); GLUCOSE, FASTING 158 MG/DL (74-106); MAGNESIUM LEVEL 1.7 MG/DL (1.8-2.4); POTASSIUM SERUM 4.1 MMOL/L (3.5-5.1); SODIUM LEVEL 140 MMOL/L (136-145)
[2023-04-24] MEDS: SYMBICORT 80/4.5MCG INHALER 6GM INH SCH (08:24)
[2023-04-24 08:48] LABS: ATYPICAL LYMPH 6 % (0-5); BASOPHILS 2 % (0-1); EOSINOPHILS 3 % (0-3); HYPOCHROMASIA 2+; LYMPHOCYTES 59 % (16-44); NEUTROPHILS 29 % (28-66); PLATELET ESTIMATE NORMAL (NORMAL); SMUDGE CELLS 1+
[2023-04-24] MEDS: MAG SULF 1GM/100ML (MAG RUN) 1 GM in IV 1 EA IV SCH ×2 (11:11→12:26)
[2023-04-24 11:15] VITALS: BP 146/74; TEMP 97.5; O2SAT 99
[2023-04-24] MEDS ORDERED: MAGN500C2 PO (13:39)
[2023-04-24] MEDS ORDERED: LEVO1TAB40 PO (13:39)
== END 2023-04-24 15:15 | disposition home or self-care (01) | DRG 637 ==
LOC: M ED 17:00 → M ED INP 22:16 → ENRESERV 23:28 → M MSPAV 04-22 01:00 → M PCU 04-22 17:43
PROVIDERS: ADMIT Internal Medicine; ATTEND Internal Medicine
DX: E11.649 Type 2 diabetes mellitus with hypoglycemia without coma (principal); J18.9 Pneumonia, unspecified organism; L97.909 Non-pressure chronic ulcer of unspecified part of unspecified lower leg with unspecified severity; J44.0 Chronic obstructive pulmonary disease with (acute) lower respiratory infection; I50.42 Chronic combined systolic (congestive) and diastolic (congestive) heart failure; I13.0 Hypertensive heart and chronic kidney disease with heart failure and stage 1 through stage 4 chronic kidney disease, or unspecified chronic kidney disease; C91.10 Chronic lymphocytic leukemia of B-cell type not having achieved remission; E87.5 Hyperkalemia; I25.10 Atherosclerotic heart disease of native coronary artery without angina pectoris; E11.22 Type 2 diabetes mellitus with diabetic chronic kidney disease; N18.30 Chronic kidney disease, stage 3 unspecified; K21.9 Gastro-esophageal reflux disease without esophagitis; Z79.4 Long term (current) use of insulin; R56.9 Unspecified convulsions; J44.9 Chronic obstructive pulmonary disease, unspecified; I48.0 Paroxysmal atrial fibrillation; D69.6 Thrombocytopenia, unspecified; E78.5 Hyperlipidemia, unspecified; D53.9 Nutritional anemia, unspecified; F32.A Depression, unspecified; I35.1 Nonrheumatic aortic (valve) insufficiency; E83.42 Hypomagnesemia; E11.40 Type 2 diabetes mellitus with diabetic neuropathy, unspecified; M10.9 Gout, unspecified; N40.0 Benign prostatic hyperplasia without lower urinary tract symptoms; F41.9 Anxiety disorder, unspecified; Z79.899 Other long term (current) drug therapy; Z79.82 Long term (current) use of aspirin

== ENCOUNTER 2023-05-09 13:16 | Day surgery (SDC) | payer MEDICARE, OTHER ==
[~2023-05-09] VITALS: Ht 189.2 cm; Wt 79.4 kg
[~2023-05-09 13:16] MED LIST changes: +LEVO1TAB40 PO; +MAGN500C2 PO; +NAPR220C23 PO; +NS 1,000 ML IV ONE; +TRES1INJ2 SQ
[2023-05-09 15:15] VITALS: TEMP 97.2
[2023-05-09 15:29] VITALS: BP 132/70; O2SAT 95
[2023-05-09] MEDS ORDERED: LIDOCAINE 2% 100MG/5ML SDV (FOR ANES.) As Ordered ONE (15:49)
[2023-05-09] MEDS ORDERED: propofoL 200 MG/20 ML VIAL As Ordered ONE (15:50)
== END 2023-05-09 15:37 | disposition home or self-care (01) ==
LOC: M OPP 13:16
PROVIDERS: ATTEND Internal Medicine Gastroenterology
DX: K64.1 Second degree hemorrhoids (principal); K57.30 Diverticulosis of large intestine without perforation or abscess without bleeding; K63.5 Polyp of colon; R19.7 Diarrhea, unspecified; Z87.891 Personal history of nicotine dependence

== ENCOUNTER → 2023-06-19 | Outpatient (REF) | payer MEDICARE, OTHER ==
[~2023-06-19] MED LIST changes: +FARX1TAB3 PO; +FARX1TAB5 PO; +FURO20TA2 PO; +FURO40TA2 PO; -GABA-283 PO; +GABA-284 PO; +LEVO25TA5 PO; +MAGN400T2 PO; -NS 1,000 ML IV ONE; +POTA-136 PO
== END ==
LOC: M SFHCADAM 14:05
PROVIDERS: ATTEND Physician Assistant
DX: E11.21 Type 2 diabetes mellitus with diabetic nephropathy (principal)

== ENCOUNTER 2023-08-28 23:17 | Inpatient (IN) | payer MEDICARE, OTHER ==
[~2023-08-28] VITALS: Ht 188 cm; Wt 59.2 kg
[~2023-08-28 23:17] MED LIST changes: +BACI1CAP; +CEFD1CAP9 PO; -CEFD300C41 PO; +LOPE-39 PO; +LOPE2TAB12 PO
[2023-08-29 01:07] LABS: HEMOGLOBIN 10.7 g/dl (13.5-17.5); MEAN CORPUSCULAR HEMOGLOBIN 31.6 pg (27.0-33.0); MEAN CORPUSCULAR HGB CONC 32.4 g/dl (32.0-36.5); MEAN CORPUSCULAR VOLUME 97.3 fl (80.0-96.0); RED BLOOD COUNT 3.39 10^6/uL (4.30-6.10); WHITE BLOOD COUNT 3.8 10^3/uL (4.0-10.0)
[2023-08-29 01:11] LABS: CK-MB VALUE MASS < 1.0 NG/ML (<3.6)
[2023-08-29 01:14] LABS: CPK CREATINE PHOSPHOKINASE 66 U/L (46-171); MB/CK RELATIVE INDEX 1.51 (< OR =4)
[2023-08-29 01:19] LABS: INR 1.79; PLATELET COUNT, AUTOMATED 65 10^3/uL (150-450); PROTHROMBIN TIME 20.2 SECONDS (12.5-14.5)
[2023-08-29 01:22] LABS: PARTIAL THROMBOPLASTIN TIME 54.6 SECONDS (24.8-34.2)
[2023-08-29] MEDS ORDERED: NS 1,000 ML IV ONE ×3 (01:35→04:00)
[2023-08-29] MEDS ORDERED: PIPERACILLIN/TAZOBACTAM SOD 4.5 GM in D5W MINI-BAG PLUS 50 ML IV ONE (01:40)
[2023-08-29 02:04] LABS: ATYPICAL LYMPH 8 % (0-5); LYMPHOCYTES 51 % (16-44); MONOCYTES 2 % (0-5); NEUTROPHILS 31 % (28-66); PLATELET ESTIMATE MARKED DECREASE (NORMAL)
[2023-08-29 02:05] LABS: ANISOCYTOSIS 1+; MICROCYTOSIS 1+; OVALOCYTES 1+; POIKILOCYTOSIS 1+
[2023-08-29 02:58] LABS: ETHYL ALCOHOL (ETHANOL) < 0.003 % (0.000-0.010); LIPASE 10 U/L (12-53)
[2023-08-29 03:00] LABS: ALBUMIN 2.4 G/DL (3.2-5.2); ALKALINE PHOSPHATASE 67 U/L (46-116); ALT/SGPT 15 U/L (7.0-40); AST/SGOT 18 U/L (<34); BILIRUBIN,DIRECT 0.3 MG/DL (<0.4); BILIRUBIN,TOTAL 0.5 MG/DL (0.3-1.2); BLOOD UREA NITROGEN 28 MG/DL (9-23); CARBON DIOXIDE LEVEL 28 MMOL/L (20-31); CHLORIDE LEVEL 104 MMOL/L (98-107); CREATININE FOR GFR 1.11 MG/DL (0.70-1.30); GLOMERULAR FILTRATION RATE > 60.0 (>42); GLUCOSE, FASTING 67 MG/DL (74-106); POTASSIUM SERUM 3.7 MMOL/L (3.5-5.1); SODIUM LEVEL 140 MMOL/L (136-145)
[2023-08-29 03:15] LABS: CK-MB VALUE MASS < 1.0 NG/ML (<3.6)
[2023-08-29 03:19] LABS: CPK CREATINE PHOSPHOKINASE 58 U/L (46-171); MB/CK RELATIVE INDEX 1.72 (< OR =4)
[2023-08-29] MEDS ORDERED: DEXTROSE 50% 50ML SYRINGE IV STA ×2 (04:04→06:16)
[2023-08-29] MEDS ORDERED: TRES1INJ2 SC (04:43)
[2023-08-29] MEDS ORDERED: FARX1TAB5 PO (04:43)
[2023-08-29] MEDS ORDERED: ALEV220T22 PO (04:43)
[2023-08-29] MEDS ORDERED: FURO40TA2 PO (04:43)
[2023-08-29] MEDS ORDERED: LISI2.5T9 PO (04:43)
[2023-08-29] MEDS ORDERED: POTA-149 PO (04:43)
[2023-08-29] MEDS ORDERED: SYNT25TA PO (04:43)
[2023-08-29] MEDS ORDERED: ASPI-161 PO (04:43)
[2023-08-29] MEDS ORDERED: MAGN400T2 PO (04:43)
[2023-08-29] MEDS ORDERED: RISATAB3 PO (04:43)
[2023-08-29] MEDS ORDERED: JANU100T PO (04:43)
[2023-08-29] MEDS ORDERED: NYST1POW9 TOP (04:43)
[2023-08-29] MEDS ORDERED: DOXYCYCLINE HYCLATE 100 MG in D5W MINI-BAG PLUS 100 ML IV SCH (05:00)
[2023-08-29 06:00] VITALS: BP 110/74; TEMP 96.4; O2SAT 83
[2023-08-29 06:44] LABS: HEMOGLOBIN 9.6 g/dl (13.5-17.5); MEAN CORPUSCULAR HEMOGLOBIN 31.4 pg (27.0-33.0); RED BLOOD COUNT 3.06 10^6/uL (4.30-6.10); WHITE BLOOD COUNT 3.9 10^3/uL (4.0-10.0)
[2023-08-29] MEDS ORDERED: D5W/0.9% SODIUM CHLORIDE 1,000 ML IV SCH (06:45)
[2023-08-29 06:46] LABS: PLATELET COUNT, AUTOMATED 45 10^3/uL (150-450)
[2023-08-29] MEDS ORDERED: GLUCAGON INJ 1MG VIAL SC PRN ×2 (06:50→20:20)
[2023-08-29] MEDS ORDERED: GLUCOSE 4GM CHEW TABLET PO PRN ×2 (06:50→20:20)
[2023-08-29] MEDS ORDERED: DEXTROSE 50% 50ML SYRINGE IV PRN (06:50)
[2023-08-29] MEDS ORDERED: D10W/0.45% SODIUM CHLORIDE 1,000 ML IV SCH (07:00)
[2023-08-29 07:21] LABS: BLOOD UREA NITROGEN 27 MG/DL (9-23); CALCIUM LEVEL 7.1 MG/DL (8.3-10.6); CARBON DIOXIDE LEVEL 24 MMOL/L (20-31); CHLORIDE LEVEL 111 MMOL/L (98-107); CREATININE FOR GFR 0.91 MG/DL (0.70-1.30); GLOMERULAR FILTRATION RATE > 60.0 (>42); GLUCOSE, FASTING 141 MG/DL (74-106); POTASSIUM SERUM 3.3 MMOL/L (3.5-5.1); SODIUM LEVEL 143 MMOL/L (136-145)
[2023-08-29 07:24] LABS: THYROID STIMULATING HORMONE 5.168 uIU/ML (0.55-4.78)
[2023-08-29 07:28] LABS: PROCALCITONIN 0.62 ng/ml
[2023-08-29] MEDS: ALBUTEROL SULFATE 2.5MG/0.5ML INH NEB SOLN INH SCH ×3 (07:31→20:07)
[2023-08-29 07:50] VITALS: BP 113/75; TEMP 96.6; O2SAT 99
[2023-08-29] MEDS ORDERED: PIPERACILLIN/TAZOBACTAM SOD 4.5 GM in D5W MINI-BAG PLUS 50 ML IV SCH (08:00)
[2023-08-29 08:27] LABS: AMPHETAMINES LEVEL URINE NEGATIVE (NEGATIVE); BARBITURATES URINE NEGATIVE (NEGATIVE); BENZODIAZEPINES URINE NEGATIVE (NEGATIVE); COCAINE METABOLITE URINE NEGATIVE (NEGATIVE); METHADONE URINE NEGATIVE (NEGATIVE); OPIATES URINE NEGATIVE (NEGATIVE)
[2023-08-29 08:28] LABS: CANNABINOIDS URINE NEGATIVE (NEGATIVE); PHENCYCLIDINE URINE NEGATIVE (NEGATIVE)
[2023-08-29] MEDS ORDERED: OMEP40CA5 PO (11:32)
[2023-08-29] MEDS ORDERED: SILD100T PO (11:32)
[2023-08-29] MEDS ORDERED: FURO20TA2 PO (11:32)
[2023-08-29] MEDS ORDERED: HOME MED LIST COMPLETE! XX SCH (11:35)
[2023-08-29 11:57] VITALS: BP 125/69; TEMP 97.1; O2SAT 94
[2023-08-29] MEDS: CEFTAROLINE FOSAMIL 600 MG in D5W MINI-BAG PLUS 50 ML IV SCH (12:52)
[2023-08-29] MEDS: NYSTATIN 100,000 UNITS/GM TOPICAL PWD 15GM TOP SCH ×2 (12:53→20:31)
[2023-08-29] MEDS: metroNIDAZOLE 500 MG in IV 1 EA IV SCH ×2 (14:08→21:09)
[2023-08-29 16:05] VITALS: BP 124/66; TEMP 98.5; O2SAT 97
[2023-08-29] MEDS ORDERED: POTASSIUM CHLORIDE 10MEQ SR TABLET PO ONE (16:55)
[2023-08-29] MEDS ORDERED: POTASSIUM CHLORIDE 10% LIQ 20MEQ/15ML UDC PO ONE (17:20)
[2023-08-29 17:24] VITALS: BP 102/70; O2SAT 94
[2023-08-29 17:41] LABS: HEMATOCRIT 34.3 % (42.0-52.0); MEAN CORPUSCULAR HGB CONC 32.1 g/dl (32.0-36.5); MEAN CORPUSCULAR VOLUME 96.6 fl (80.0-96.0); RED BLOOD COUNT 3.55 10^6/uL (4.30-6.10); WHITE BLOOD COUNT 9.7 10^3/uL (4.0-10.0)
[2023-08-29 17:44] LABS: PLATELET COUNT, AUTOMATED 90 10^3/uL (150-450)
[2023-08-29] MEDS ORDERED: PILL CUTTER 1 EACH XX PRN (17:45)
[2023-08-29 18:00] LABS: BLOOD UREA NITROGEN 24 MG/DL (9-23); CALCIUM LEVEL 7.7 MG/DL (8.3-10.6); CARBON DIOXIDE LEVEL 22 MMOL/L (20-31); CHLORIDE LEVEL 107 MMOL/L (98-107); CREATININE FOR GFR 0.98 MG/DL (0.70-1.30); GLOMERULAR FILTRATION RATE > 60.0 (>42); GLUCOSE, FASTING 229 MG/DL (74-106); POTASSIUM SERUM 3.8 MMOL/L (3.5-5.1); SODIUM LEVEL 137 MMOL/L (136-145)
[2023-08-29 18:39] LABS: ATYPICAL LYMPH 11 % (0-5); LYMPHOCYTES 50 % (16-44); METAMYELOCYTES 2 % (0-0); NEUTROPHILS 25 % (28-66); PLATELET ESTIMATE DECREASED (NORMAL)
[2023-08-29 18:42] LABS: ANISOCYTOSIS 1+; MICROCYTOSIS 1+
[2023-08-29 20:07] VITALS: BP 114/62; TEMP 99.7; O2SAT 98
[2023-08-29] MEDS: SYMBICORT 80/4.5MCG INHALER 6GM INH SCH (20:07)
[2023-08-29] MEDS: DIVALPROEX 250MG TAB PO SCH (20:32)
[2023-08-29] MEDS: INSULIN LISPRO (NovoLOG) PER UNIT SC SCH (20:32)
[2023-08-29] MEDS: QUEtiapine FUMARATE 50MG TAB PO SCH (20:32)
[2023-08-30] VITALS (8 sets, daily range): BP systolic 91–128; BP diastolic 54–70; TEMP 97.6–99.4; O2SAT 93–98
[2023-08-30] MEDS: CEFTAROLINE FOSAMIL 600 MG in D5W MINI-BAG PLUS 50 ML IV SCH ×2 (00:12→14:03)
[2023-08-30] MEDS: ALBUTEROL SULFATE 2.5MG/0.5ML INH NEB SOLN INH SCH ×4 (01:31→19:14)
[2023-08-30 04:51] LABS: HEMATOCRIT 26.3 % (42.0-52.0); MEAN CORPUSCULAR HEMOGLOBIN 31.5 pg (27.0-33.0); MEAN CORPUSCULAR HGB CONC 33.1 g/dl (32.0-36.5); MEAN CORPUSCULAR VOLUME 95.3 fl (80.0-96.0); RED BLOOD COUNT 2.76 10^6/uL (4.30-6.10); WHITE BLOOD COUNT 2.5 10^3/uL (4.0-10.0)
[2023-08-30 04:56] LABS: HEMOGLOBIN 8.7 g/dl (13.5-17.5); PLATELET COUNT, AUTOMATED 50 10^3/uL (150-450)
[2023-08-30 05:14] LABS: BLOOD UREA NITROGEN 24 MG/DL (9-23); CALCIUM LEVEL 7.3 MG/DL (8.3-10.6); CARBON DIOXIDE LEVEL 23 MMOL/L (20-31); CHLORIDE LEVEL 107 MMOL/L (98-107); CREATININE FOR GFR 1.02 MG/DL (0.70-1.30); GLOMERULAR FILTRATION RATE > 60.0 (>42); GLUCOSE, FASTING 253 MG/DL (74-106); POTASSIUM SERUM 3.7 MMOL/L (3.5-5.1); SODIUM LEVEL 138 MMOL/L (136-145)
[2023-08-30 05:33] LABS: HYPOCHROMASIA 2+; LYMPHOCYTES 64 % (16-44); MONOCYTES 3 % (0-5); NEUTROPHILS 29 % (28-66); PLATELET ESTIMATE MARKED DECREASE (NORMAL)
[2023-08-30 05:34] LABS: ANISOCYTOSIS 1+; OVALOCYTES 1+; POIKILOCYTOSIS 1+
[2023-08-30] MEDS: metroNIDAZOLE 500 MG in IV 1 EA IV SCH ×2 (06:02→15:18)
[2023-08-30] MEDS: LEVOTHYROXINE 25MCG TABLET (0.025MG) PO SCH (06:02)
[2023-08-30 06:48] LABS: HEMATOCRIT 27.1 % (42.0-52.0); HEMOGLOBIN 8.7 g/dl (13.5-17.5); MEAN CORPUSCULAR HEMOGLOBIN 31.2 pg (27.0-33.0); MEAN CORPUSCULAR HGB CONC 32.1 g/dl (32.0-36.5); MEAN CORPUSCULAR VOLUME 97.1 fl (80.0-96.0); RED BLOOD COUNT 2.79 10^6/uL (4.30-6.10); WHITE BLOOD COUNT 3.1 10^3/uL (4.0-10.0)
[2023-08-30 07:00] LABS: PLATELET COUNT, AUTOMATED 50 10^3/uL (150-450)
[2023-08-30] MEDS ORDERED: INSULIN LISPRO (NovoLOG) PER UNIT SC SCH ×2 (07:30→12:00)
[2023-08-30 07:34] LABS: ATYPICAL LYMPH 23 % (0-5); EOSINOPHILS 3 % (0-3); LYMPHOCYTES 26 % (16-44); MONOCYTES 3 % (0-5); NEUTROPHILS 45 % (28-66); PLATELET ESTIMATE MARKED DECREASE (NORMAL); SMUDGE CELLS 2+
[2023-08-30 07:35] LABS: GIANT PLATELETS 1+
[2023-08-30] MEDS: LEVEMIR (INSULIN DETEMIR) 1 UNITS/0.01ML SC SCH (08:27)
[2023-08-30] MEDS: ASPIRIN 81MG ENTERIC TABLET PO SCH (08:29)
[2023-08-30] MEDS: buPROPion **XL** TABLET 150MG (WELLBUTRIN XL) PO SCH (08:29)
[2023-08-30] MEDS: FLUoxetine 20MG CAP PO SCH (08:29)
[2023-08-30] MEDS: allopurinoL 100 MG TAB PO SCH (08:30)
[2023-08-30] MEDS: DIVALPROEX 250MG TAB PO SCH ×2 (08:30→20:59)
[2023-08-30] MEDS: NYSTATIN 100,000 UNITS/GM TOPICAL PWD 15GM TOP SCH ×2 (08:31→20:59)
[2023-08-30] MEDS: QUEtiapine FUMARATE 25 MG TAB PO SCH (08:31)
[2023-08-30] MEDS: SYMBICORT 80/4.5MCG INHALER 6GM INH SCH ×2 (08:49→19:14)
[2023-08-30 12:05] LABS: HEMOGLOBIN A1c 7.2 % (4.0-6.0)
[2023-08-30] MEDS: INSULIN LISPRO (NovoLOG) PER UNIT SC SCH ×3 (13:14→21:06)
[2023-08-30] MEDS: NYSTATIN 500,000U/5ML SUSP UDC SS SCH ×2 (15:18→20:59)
[2023-08-30] MEDS ORDERED: VANCOMYCIN HCL 750 MG, VIAL MATE ADAPTER 1 EACH in D5W 250 ML IV ONE ×2 (18:00→19:00)
[2023-08-30] MEDS: QUEtiapine FUMARATE 50MG TAB PO SCH (20:59)
[2023-08-31] VITALS (10 sets, daily range): BP systolic 105–144; BP diastolic 53–76; TEMP 97.5–102.6; O2SAT 91–97
[2023-08-31] MEDS: ALBUTEROL SULFATE 2.5MG/0.5ML INH NEB SOLN INH SCH ×4 (02:00→19:25)
[2023-08-31] MEDS: VANCOMYCIN HCL 1,000 MG, VIAL MATE ADAPTER 1 EACH in D5W 250 ML IV SCH ×2 (02:03→15:34)
[2023-08-31 05:43] LABS: HEMATOCRIT 22.5 % (42.0-52.0); HEMOGLOBIN 7.4 g/dl (13.5-17.5); MEAN CORPUSCULAR HEMOGLOBIN 31.4 pg (27.0-33.0); MEAN CORPUSCULAR HGB CONC 32.9 g/dl (32.0-36.5); MEAN CORPUSCULAR VOLUME 95.3 fl (80.0-96.0); RED BLOOD COUNT 2.36 10^6/uL (4.30-6.10); WHITE BLOOD COUNT 4.3 10^3/uL (4.0-10.0)
[2023-08-31 05:50] LABS: PLATELET COUNT, AUTOMATED 50 10^3/uL (150-450)
[2023-08-31 06:03] LABS: BLOOD UREA NITROGEN 22 MG/DL (9-23); CALCIUM LEVEL 7.4 MG/DL (8.3-10.6); CARBON DIOXIDE LEVEL 24 MMOL/L (20-31); CHLORIDE LEVEL 110 MMOL/L (98-107); CREATININE FOR GFR 0.96 MG/DL (0.70-1.30); GLOMERULAR FILTRATION RATE > 60.0 (>42); GLUCOSE, FASTING 197 MG/DL (74-106); SODIUM LEVEL 139 MMOL/L (136-145)
[2023-08-31] MEDS: LEVOTHYROXINE 25MCG TABLET (0.025MG) PO SCH (06:10)
[2023-08-31 06:17] LABS: ATYPICAL LYMPH 3 % (0-5); HYPOCHROMASIA 2+; LYMPHOCYTES 50 % (16-44); MONOCYTES 4 % (0-5); NEUTROPHILS 41 % (28-66); PLATELET ESTIMATE MARKED DECREASE (NORMAL)
[2023-08-31 06:18] LABS: ANISOCYTOSIS 1+
[2023-08-31] MEDS: SYMBICORT 80/4.5MCG INHALER 6GM INH SCH ×2 (07:54→19:24)
[2023-08-31] MEDS: ASPIRIN 81MG ENTERIC TABLET PO SCH (09:06)
[2023-08-31] MEDS: LEVEMIR (INSULIN DETEMIR) 1 UNITS/0.01ML SC SCH (09:06)
[2023-08-31] MEDS: INSULIN LISPRO (NovoLOG) PER UNIT SC SCH ×4 (09:06→20:03)
[2023-08-31] MEDS: buPROPion **XL** TABLET 150MG (WELLBUTRIN XL) PO SCH (09:07)
[2023-08-31] MEDS: FLUoxetine 20MG CAP PO SCH (09:07)
[2023-08-31] MEDS: QUEtiapine FUMARATE 25 MG TAB PO SCH (09:07)
[2023-08-31] MEDS: allopurinoL 100 MG TAB PO SCH (09:07)
[2023-08-31] MEDS: NYSTATIN 500,000U/5ML SUSP UDC SS SCH ×3 (09:07→20:03)
[2023-08-31] MEDS: DIVALPROEX 250MG TAB PO SCH ×2 (09:07→20:03)
[2023-08-31] MEDS: NYSTATIN 100,000 UNITS/GM TOPICAL PWD 15GM TOP SCH ×2 (09:07→20:04)
[2023-08-31] MEDS ORDERED: FLUZONE HIGH DOSE(65YR UP)QUAD/PF 240MCG/0.7ML SYRINGE IM.IMMUN ONE (16:00)
[2023-08-31 16:03] LABS: HEMOGLOBIN 8.8 g/dl (13.5-17.5)
[2023-08-31] MEDS: ACETAMINOPHEN TAB 650MG DOSE (2X325MG) PO PRN (20:03)
[2023-08-31] MEDS: QUEtiapine FUMARATE 50MG TAB PO SCH (20:03)
[2023-09-01] VITALS (9 sets, daily range): BP systolic 106–213; BP diastolic 55–76; TEMP 96.8–98.4; O2SAT 94–98
[2023-09-01] MEDS: ALBUTEROL SULFATE 2.5MG/0.5ML INH NEB SOLN INH SCH ×4 (02:00→19:44)
[2023-09-01] MEDS: VANCOMYCIN HCL 1,000 MG, VIAL MATE ADAPTER 1 EACH in D5W 250 ML IV SCH ×2 (02:26→15:07)
[2023-09-01] MEDS: LEVOTHYROXINE 25MCG TABLET (0.025MG) PO SCH (05:11)
[2023-09-01 06:41] LABS: HEMOGLOBIN 7.7 g/dl (13.5-17.5); MEAN CORPUSCULAR HEMOGLOBIN 31.4 pg (27.0-33.0); MEAN CORPUSCULAR HGB CONC 33.5 g/dl (32.0-36.5); MEAN CORPUSCULAR VOLUME 93.9 fl (80.0-96.0); RED BLOOD COUNT 2.45 10^6/uL (4.30-6.10); WHITE BLOOD COUNT 6.6 10^3/uL (4.0-10.0)
[2023-09-01 06:54] LABS: PLATELET COUNT, AUTOMATED 59 10^3/uL (150-450)
[2023-09-01 07:08] LABS: BLOOD UREA NITROGEN 22 MG/DL (9-23); CALCIUM LEVEL 7.6 MG/DL (8.3-10.6); CARBON DIOXIDE LEVEL 27 MMOL/L (20-31); CHLORIDE LEVEL 109 MMOL/L (98-107); CREATININE FOR GFR 0.72 MG/DL (0.70-1.30); GLOMERULAR FILTRATION RATE > 60.0 (>42); GLUCOSE, FASTING 204 MG/DL (74-106); SODIUM LEVEL 142 MMOL/L (136-145)
[2023-09-01 07:27] LABS: ATYPICAL LYMPH 32 % (0-5); LYMPHOCYTES 31 % (16-44); MONOCYTES 2 % (0-5); NEUTROPHILS 35 % (28-66); SMUDGE CELLS 2+
[2023-09-01 07:28] LABS: PLATELET ESTIMATE DECREASED (NORMAL)
[2023-09-01] MEDS: SYMBICORT 80/4.5MCG INHALER 6GM INH SCH ×2 (08:12→19:44)
[2023-09-01] MEDS: QUEtiapine FUMARATE 25 MG TAB PO SCH (08:27)
[2023-09-01] MEDS: ASPIRIN 81MG ENTERIC TABLET PO SCH (08:27)
[2023-09-01] MEDS: NYSTATIN 500,000U/5ML SUSP UDC SS SCH ×3 (08:27→20:35)
[2023-09-01] MEDS: INSULIN LISPRO (NovoLOG) PER UNIT SC SCH ×4 (08:27→20:28)
[2023-09-01] MEDS: allopurinoL 100 MG TAB PO SCH (08:28)
[2023-09-01] MEDS: DIVALPROEX 250MG TAB PO SCH ×2 (08:28→20:36)
[2023-09-01] MEDS: NYSTATIN 100,000 UNITS/GM TOPICAL PWD 15GM TOP SCH ×2 (08:28→20:36)
[2023-09-01] MEDS: buPROPion **XL** TABLET 150MG (WELLBUTRIN XL) PO SCH (08:28)
[2023-09-01] MEDS: FLUoxetine 20MG CAP PO SCH (08:28)
[2023-09-01] MEDS ORDERED: LEVEMIR (INSULIN DETEMIR) 1 UNITS/0.01ML SC SCH ×2 (09:00→21:00)
[2023-09-01] MEDS: PANTOPRAZOLE 40MG VIAL IV SCH (18:06)
[2023-09-01] MEDS: SUCRALFATE SUSP 1GM/10ML UD PO SCH ×2 (18:07→23:58)
[2023-09-01 18:44] LABS: HEMATOCRIT 24.9 % (42.0-52.0); HEMOGLOBIN 8.3 g/dl (13.5-17.5); MEAN CORPUSCULAR HEMOGLOBIN 31.1 pg (27.0-33.0); MEAN CORPUSCULAR HGB CONC 33.3 g/dl (32.0-36.5); MEAN CORPUSCULAR VOLUME 93.3 fl (80.0-96.0); RED BLOOD COUNT 2.67 10^6/uL (4.30-6.10)
[2023-09-01 18:48] LABS: PLATELET COUNT, AUTOMATED 65 10^3/uL (150-450)
[2023-09-01] MEDS: QUEtiapine FUMARATE 50MG TAB PO SCH (20:36)
[2023-09-02] MEDS: VANCOMYCIN HCL 1,000 MG, VIAL MATE ADAPTER 1 EACH in D5W 250 ML IV SCH ×2 (01:15→14:08)
[2023-09-02] MEDS: ALBUTEROL SULFATE 2.5MG/0.5ML INH NEB SOLN INH SCH ×4 (02:00→20:04)
[2023-09-02 04:18] VITALS: BP 143/71; TEMP 97; O2SAT 94
[2023-09-02] MEDS: DEXTROSE 50% 50ML SYRINGE IV PRN ×2 (04:27→05:18)
[2023-09-02] MEDS ORDERED: PIPERACILLIN/TAZOBACTAM SOD 4.5 GM in D5W MINI-BAG PLUS 50 ML IV SCH (05:00)
[2023-09-02] MEDS ORDERED: DEXTROSE 50% 50ML SYRINGE IV STA (05:18)
[2023-09-02] MEDS: PANTOPRAZOLE 40MG VIAL IV SCH ×2 (05:20→16:51)
[2023-09-02] MEDS: SUCRALFATE SUSP 1GM/10ML UD PO SCH ×4 (05:53→23:51)
[2023-09-02] MEDS: LEVOTHYROXINE 25MCG TABLET (0.025MG) PO SCH (05:53)
[2023-09-02 06:00] VITALS: O2SAT 99
[2023-09-02] MEDS ORDERED: D5W/0.9% SODIUM CHLORIDE 1,000 ML IV SCH (06:45)
[2023-09-02 07:12] LABS: HEMATOCRIT 26.3 % (42.0-52.0); HEMOGLOBIN 8.5 g/dl (13.5-17.5); MEAN CORPUSCULAR HEMOGLOBIN 30.8 pg (27.0-33.0); MEAN CORPUSCULAR HGB CONC 32.3 g/dl (32.0-36.5); MEAN CORPUSCULAR VOLUME 95.3 fl (80.0-96.0); RED BLOOD COUNT 2.76 10^6/uL (4.30-6.10); WHITE BLOOD COUNT 6.4 10^3/uL (4.0-10.0)
[2023-09-02 07:15] LABS: PLATELET COUNT, AUTOMATED 63 10^3/uL (150-450)
[2023-09-02] MEDS: SYMBICORT 80/4.5MCG INHALER 6GM INH SCH ×2 (07:26→20:04)
[2023-09-02 07:27] LABS: BLOOD UREA NITROGEN 21 MG/DL (9-23); CALCIUM LEVEL 7.5 MG/DL (8.3-10.6); CARBON DIOXIDE LEVEL 24 MMOL/L (20-31); CHLORIDE LEVEL 112 MMOL/L (98-107); CREATININE FOR GFR 0.61 MG/DL (0.70-1.30); GLOMERULAR FILTRATION RATE > 60.0 (>42); GLUCOSE, FASTING 86 MG/DL (74-106); POTASSIUM SERUM 3.8 MMOL/L (3.5-5.1); SODIUM LEVEL 145 MMOL/L (136-145)
[2023-09-02] MEDS: INSULIN LISPRO (NovoLOG) PER UNIT SC SCH ×4 (07:30→20:39)
[2023-09-02 07:52] VITALS: BP 143/65; TEMP 96.6; O2SAT 100
[2023-09-02 07:54] LABS: ATYPICAL LYMPH 12 % (0-5); EOSINOPHILS 1 % (0-3); LYMPHOCYTES 52 % (16-44); NEUTROPHILS 35 % (28-66); PLATELET ESTIMATE DECREASED (NORMAL); SMUDGE CELLS 3+
[2023-09-02 07:55] LABS: ANISOCYTOSIS 1+; POIKILOCYTOSIS 1+
[2023-09-02] MEDS: NYSTATIN 500,000U/5ML SUSP UDC SS SCH ×3 (08:05→20:39)
[2023-09-02] MEDS: FLUoxetine 20MG CAP PO SCH (08:05)
[2023-09-02] MEDS: buPROPion **XL** TABLET 150MG (WELLBUTRIN XL) PO SCH (08:05)
[2023-09-02] MEDS: QUEtiapine FUMARATE 25 MG TAB PO SCH (08:05)
[2023-09-02] MEDS: ASPIRIN 81MG ENTERIC TABLET PO SCH (08:05)
[2023-09-02] MEDS: NYSTATIN 100,000 UNITS/GM TOPICAL PWD 15GM TOP SCH ×2 (08:06→21:50)
[2023-09-02] MEDS: allopurinoL 100 MG TAB PO SCH (08:06)
[2023-09-02] MEDS: DIVALPROEX 250MG TAB PO SCH ×2 (08:06→20:38)
[2023-09-02] MEDS ORDERED: LEVEMIR (INSULIN DETEMIR) 1 UNITS/0.01ML SC SCH (09:00)
[2023-09-02 11:24] VITALS: BP 122/64; TEMP 97.4; O2SAT 97
[2023-09-02] MEDS: PIPERACILLIN/TAZOBACTAM SOD 4.5 GM in D5W MINI-BAG PLUS 50 ML IV SCH ×3 (12:25→23:51)
[2023-09-02 13:12] LABS: HEMATOCRIT 24.1 % (42.0-52.0)
[2023-09-02 15:34] VITALS: BP 123/73; TEMP 98.8; O2SAT 97
[2023-09-02] MEDS ORDERED: LEVEMIR (INSULIN DETEMIR) 1 UNITS/0.01ML SC ONE (18:00)
[2023-09-02 19:29] VITALS: BP 146/73; TEMP 98.8; O2SAT 95
[2023-09-02 19:56] LABS: HEMATOCRIT 23.1 % (42.0-52.0); HEMOGLOBIN 7.7 g/dl (13.5-17.5)
[2023-09-02] MEDS: QUEtiapine FUMARATE 50MG TAB PO SCH (20:38)
[2023-09-03] VITALS (12 sets, daily range): BP systolic 110–163; BP diastolic 61–99; TEMP 97.5–98.6; O2SAT 94–100
[2023-09-03] MEDS: ALBUTEROL SULFATE 2.5MG/0.5ML INH NEB SOLN INH SCH ×4 (01:57→20:37)
[2023-09-03] MEDS: VANCOMYCIN HCL 1,000 MG, VIAL MATE ADAPTER 1 EACH in D5W 250 ML IV SCH (02:03)
[2023-09-03 02:28] LABS: HEMATOCRIT 21.4 % (42.0-52.0); HEMOGLOBIN 7.2 g/dl (13.5-17.5)
[2023-09-03] MEDS: PANTOPRAZOLE 40MG VIAL IV SCH ×2 (03:27→16:04)
[2023-09-03] MEDS: SUCRALFATE SUSP 1GM/10ML UD PO SCH ×4 (06:04→23:35)
[2023-09-03] MEDS: LEVOTHYROXINE 25MCG TABLET (0.025MG) PO SCH (06:04)
[2023-09-03] MEDS: PIPERACILLIN/TAZOBACTAM SOD 4.5 GM in D5W MINI-BAG PLUS 50 ML IV SCH ×4 (06:20→23:35)
[2023-09-03 06:22] LABS: HEMATOCRIT 22.3 % (42.0-52.0); HEMOGLOBIN 7.5 g/dl (13.5-17.5); MEAN CORPUSCULAR HEMOGLOBIN 30.7 pg (27.0-33.0); MEAN CORPUSCULAR HGB CONC 33.6 g/dl (32.0-36.5); MEAN CORPUSCULAR VOLUME 91.4 fl (80.0-96.0); RED BLOOD COUNT 2.44 10^6/uL (4.30-6.10); WHITE BLOOD COUNT 5.7 10^3/uL (4.0-10.0)
[2023-09-03 06:24] LABS: PLATELET COUNT, AUTOMATED 70 10^3/uL (150-450)
[2023-09-03 06:50] LABS: ANISOCYTOSIS 2+; ATYPICAL LYMPH 6 % (0-5); BASOPHILS 1 % (0-1); EOSINOPHILS 2 % (0-3); LYMPHOCYTES 57 % (16-44); MONOCYTES 3 % (0-5); NEUTROPHILS 31 % (28-66); PLATELET ESTIMATE DECREASED (NORMAL); POIKILOCYTOSIS 1+; POLYCHROMASIA 1+
[2023-09-03 07:27] LABS: BLOOD UREA NITROGEN 12 MG/DL (9-23); CALCIUM LEVEL 7.2 MG/DL (8.3-10.6); CARBON DIOXIDE LEVEL 27 MMOL/L (20-31); CHLORIDE LEVEL 111 MMOL/L (98-107); CREATININE FOR GFR 0.68 MG/DL (0.70-1.30); FOLATE 14.7 NG/ML (>5.4); GLOMERULAR FILTRATION RATE > 60.0 (>42); GLUCOSE, FASTING 34 MG/DL (74-106); IRON (FE) 56 UG/DL (65-175); PERCENT SATURATION 33.9 % (19.7-50.0); POTASSIUM SERUM 3.6 MMOL/L (3.5-5.1); SODIUM LEVEL 145 MMOL/L (136-145); TOTAL IRON BINDING CAPACITY 165 UG/DL (250-425); VITAMIN B12 LEVEL 842 PG/ML (211-911)
[2023-09-03] MEDS: INSULIN LISPRO (NovoLOG) PER UNIT SC SCH ×3 (07:30→17:38)
[2023-09-03] MEDS: DEXTROSE 50% 50ML SYRINGE IV PRN (07:36)
[2023-09-03] MEDS: QUEtiapine FUMARATE 25 MG TAB PO SCH (08:50)
[2023-09-03] MEDS: buPROPion **XL** TABLET 150MG (WELLBUTRIN XL) PO SCH (08:50)
[2023-09-03] MEDS: allopurinoL 100 MG TAB PO SCH (08:50)
[2023-09-03] MEDS: ASPIRIN 81MG ENTERIC TABLET PO SCH (08:50)
[2023-09-03] MEDS: FLUoxetine 20MG CAP PO SCH (08:51)
[2023-09-03] MEDS: NYSTATIN 100,000 UNITS/GM TOPICAL PWD 15GM TOP SCH ×2 (08:51→20:11)
[2023-09-03] MEDS: DIVALPROEX 250MG TAB PO SCH ×2 (08:51→20:12)
[2023-09-03] MEDS: NYSTATIN 500,000U/5ML SUSP UDC SS SCH ×3 (08:51→20:12)
[2023-09-03] MEDS: SYMBICORT 80/4.5MCG INHALER 6GM INH SCH ×2 (10:25→20:37)
[2023-09-03] MEDS ORDERED: FUROSEMIDE 20MG/2ML VIAL IV ONE (11:00)
[2023-09-03] MEDS ORDERED: LEVEMIR (INSULIN DETEMIR) 1 UNITS/0.01ML SC SCH ×2 (12:00)
[2023-09-03] MEDS ORDERED: VANCOMYCIN HCL 750 MG, VIAL MATE ADAPTER 1 EACH in D5W 250 ML IV SCH (14:00)
[2023-09-03] MEDS: VANCOMYCIN HCL 750 MG, VIAL MATE ADAPTER 1 EACH in D5W 250 ML IV SCH (15:41)
[2023-09-03] MEDS: QUEtiapine FUMARATE 50MG TAB PO SCH (20:12)
[2023-09-04] VITALS (10 sets, daily range): BP systolic 117–141; BP diastolic 63–93; TEMP 97.6–99.5; O2SAT 85–97
[2023-09-04] MEDS: ALBUTEROL SULFATE 2.5MG/0.5ML INH NEB SOLN INH SCH ×4 (01:14→19:47)
[2023-09-04] MEDS: PANTOPRAZOLE 40MG VIAL IV SCH ×2 (03:55→17:38)
[2023-09-04] MEDS: VANCOMYCIN HCL 750 MG, VIAL MATE ADAPTER 1 EACH in D5W 250 ML IV SCH ×2 (04:21→16:48)
[2023-09-04] MEDS: LEVOTHYROXINE 25MCG TABLET (0.025MG) PO SCH (05:13)
[2023-09-04] MEDS: PIPERACILLIN/TAZOBACTAM SOD 4.5 GM in D5W MINI-BAG PLUS 50 ML IV SCH ×2 (05:13→13:11)
[2023-09-04] MEDS: SUCRALFATE SUSP 1GM/10ML UD PO SCH ×4 (05:13→23:02)
[2023-09-04 05:15] LABS: HEMATOCRIT 27.5 % (42.0-52.0); HEMOGLOBIN 9.3 g/dl (13.5-17.5); MEAN CORPUSCULAR HEMOGLOBIN 30.6 pg (27.0-33.0); MEAN CORPUSCULAR HGB CONC 33.8 g/dl (32.0-36.5); MEAN CORPUSCULAR VOLUME 90.5 fl (80.0-96.0); RED BLOOD COUNT 3.04 10^6/uL (4.30-6.10); WHITE BLOOD COUNT 7.1 10^3/uL (4.0-10.0)
[2023-09-04 05:30] LABS: PLATELET COUNT, AUTOMATED 72 10^3/uL (150-450)
[2023-09-04 05:37] LABS: BLOOD UREA NITROGEN 12 MG/DL (9-23); CALCIUM LEVEL 7.2 MG/DL (8.3-10.6); CARBON DIOXIDE LEVEL 29 MMOL/L (20-31); CHLORIDE LEVEL 106 MMOL/L (98-107); CREATININE FOR GFR 0.63 MG/DL (0.70-1.30); GLOMERULAR FILTRATION RATE > 60.0 (>42); GLUCOSE, FASTING 171 MG/DL (74-106); POTASSIUM SERUM 3.6 MMOL/L (3.5-5.1); SODIUM LEVEL 141 MMOL/L (136-145)
[2023-09-04 06:03] LABS: ATYPICAL LYMPH 6 % (0-5); BASOPHILS 1 % (0-1); EOSINOPHILS 5 % (0-3); LYMPHOCYTES 55 % (16-44); MONOCYTES 6 % (0-5); NEUTROPHILS 24 % (28-66)
[2023-09-04 06:04] LABS: ANISOCYTOSIS 1+; HYPOCHROMASIA 2+; PLATELET ESTIMATE MARKED DECREASE (NORMAL)
[2023-09-04] MEDS: INSULIN LISPRO (NovoLOG) PER UNIT SC SCH ×3 (07:30→17:39)
[2023-09-04] MEDS: SYMBICORT 80/4.5MCG INHALER 6GM INH SCH ×2 (08:14→19:47)
[2023-09-04] MEDS: NYSTATIN 500,000U/5ML SUSP UDC SS SCH ×3 (08:53→22:38)
[2023-09-04] MEDS: LEVEMIR (INSULIN DETEMIR) 1 UNITS/0.01ML SC SCH (08:53)
[2023-09-04] MEDS: QUEtiapine FUMARATE 25 MG TAB PO SCH (08:54)
[2023-09-04] MEDS: buPROPion **XL** TABLET 150MG (WELLBUTRIN XL) PO SCH (08:54)
[2023-09-04] MEDS: ASPIRIN 81MG ENTERIC TABLET PO SCH (08:54)
[2023-09-04] MEDS: FLUoxetine 20MG CAP PO SCH (08:54)
[2023-09-04] MEDS: DIVALPROEX 250MG TAB PO SCH ×2 (08:54→22:37)
[2023-09-04] MEDS: allopurinoL 100 MG TAB PO SCH (08:54)
[2023-09-04] MEDS: SITagliptin 50 MG TAB (JANUVIA) PO SCH (08:54)
[2023-09-04] MEDS: NYSTATIN 100,000 UNITS/GM TOPICAL PWD 15GM TOP SCH ×2 (08:55→22:38)
[2023-09-04] MEDS ORDERED: E-Z-PAQUE 96% w/w SUSP 176GM BTL As Ordered ONE (10:52)
[2023-09-04] MEDS ORDERED: VARIBAR PUDDING 40% w/v 230ML TUBE As Ordered ONE (10:52)
[2023-09-04] MEDS ORDERED: BARIUM SULFATE 700 MG TABLET (E-Z-DISK) As Ordered ONE (10:52)
[2023-09-04] MEDS ORDERED: VARIBAR NECTAR 40% w/v 240ML SUSP BTL As Ordered ONE (10:52)
[2023-09-04] MEDS ORDERED: LEVEMIR (INSULIN DETEMIR) 1 UNITS/0.01ML SC SCH (12:00)
[2023-09-04] MEDS ORDERED: AUGMENTIN 875 MG TAB PO SCH (21:00)
[2023-09-04] MEDS: QUEtiapine FUMARATE 50MG TAB PO SCH (22:36)
[2023-09-04] MEDS: ACETAMINOPHEN TAB 650MG DOSE (2X325MG) PO PRN (22:36)
[2023-09-05] VITALS (22 sets, daily range): BP systolic 109–154; BP diastolic 64–102; TEMP 98.5–102.1; O2SAT 85–96
[2023-09-05] MEDS: ALBUTEROL SULFATE 2.5MG/0.5ML INH NEB SOLN INH SCH (02:00)
[2023-09-05] MEDS: ACETAMINOPHEN TAB 650MG DOSE (2X325MG) PO PRN ×2 (03:22→14:06)
[2023-09-05] MEDS ORDERED: LEVALBUTEROL 1.25MG 0.5ML CONCENTRATE NEB INH PRN (04:00)
[2023-09-05] MEDS: PANTOPRAZOLE 40MG VIAL IV SCH ×3 (04:33→16:21)
[2023-09-05] MEDS: VANCOMYCIN HCL 750 MG, VIAL MATE ADAPTER 1 EACH in D5W 250 ML IV SCH ×2 (04:34→16:20)
[2023-09-05] MEDS: SUCRALFATE SUSP 1GM/10ML UD PO SCH ×4 (05:15→23:00)
[2023-09-05] MEDS: LEVOTHYROXINE 25MCG TABLET (0.025MG) PO SCH (05:15)
[2023-09-05 06:05] LABS: BASO % 0.1 % (0.0-1.0); EOS # 0.1 10^3/uL (0.0-0.5); EOS % 0.8 % (0.0-3.0); HEMATOCRIT 34.8 % (42.0-52.0); LYMPH # 8.3 10^3/uL (1.5-5.0); LYMPH % 56.8 % (24.0-44.0); MEAN CORPUSCULAR HEMOGLOBIN 30.4 pg (27.0-33.0); MEAN CORPUSCULAR HGB CONC 33.3 g/dl (32.0-36.5); MEAN CORPUSCULAR VOLUME 91.3 fl (80.0-96.0); MONO # 0.1 10^3/uL (0.0-0.8); MONO % 0.6 % (2.0-8.0); NEUTROPHILS % 41.3 % (36.0-66.0); PLATELET COUNT, AUTOMATED 129 10^3/uL (150-450); RED BLOOD COUNT 3.81 10^6/uL (4.30-6.10); WHITE BLOOD COUNT 14.6 10^3/uL (4.0-10.0)
[2023-09-05 06:23] LABS: HEMOGLOBIN 11.6 g/dl (13.5-17.5)
[2023-09-05 06:25] LABS: BLOOD UREA NITROGEN 12 MG/DL (9-23); CALCIUM LEVEL 7.9 MG/DL (8.3-10.6); CARBON DIOXIDE LEVEL 29 MMOL/L (20-31); CHLORIDE LEVEL 105 MMOL/L (98-107); CREATININE FOR GFR 0.84 MG/DL (0.70-1.30); GLOMERULAR FILTRATION RATE > 60.0 (>42); GLUCOSE, FASTING 137 MG/DL (74-106); SODIUM LEVEL 142 MMOL/L (136-145)
[2023-09-05] MEDS ORDERED: ACETAMINOPHEN *IV* 1,000 MG in IV 1 EA IV ONE (07:00)
[2023-09-05] MEDS: SYMBICORT 80/4.5MCG INHALER 6GM INH SCH ×2 (07:22→21:30)
[2023-09-05] MEDS: LEVALBUTEROL 1.25MG 0.5ML CONCENTRATE NEB INH SCH ×3 (07:22→21:30)
[2023-09-05] MEDS: INSULIN LISPRO (NovoLOG) PER UNIT SC SCH ×4 (07:30→21:00)
[2023-09-05] MEDS: LEVEMIR (INSULIN DETEMIR) 1 UNITS/0.01ML SC SCH (09:10)
[2023-09-05] MEDS: PIPERACILLIN/TAZOBACTAM SOD 4.5 GM in D5W MINI-BAG PLUS 50 ML IV SCH ×3 (09:10→21:00)
[2023-09-05] MEDS: NYSTATIN 100,000 UNITS/GM TOPICAL PWD 15GM TOP SCH ×2 (09:10→21:02)
[2023-09-05] MEDS: NYSTATIN 500,000U/5ML SUSP UDC SS SCH (11:00)
[2023-09-05] MEDS: ASPIRIN 81MG ENTERIC TABLET PO SCH (11:00)
[2023-09-05] MEDS: FLUoxetine 20MG CAP PO SCH (11:00)
[2023-09-05] MEDS: SITagliptin 50 MG TAB (JANUVIA) PO SCH (11:01)
[2023-09-05] MEDS: QUEtiapine FUMARATE 25 MG TAB PO SCH (11:01)
[2023-09-05] MEDS: allopurinoL 100 MG TAB PO SCH (11:01)
[2023-09-05] MEDS: DIVALPROEX 250MG TAB PO SCH (11:02)
[2023-09-05] MEDS: buPROPion **XL** TABLET 150MG (WELLBUTRIN XL) PO SCH (11:02)
[2023-09-05] MEDS ORDERED: ACETAMINOPHEN *IV* 1,000 MG in IV 1 EA IV PRN (14:15)
[2023-09-05] MEDS ORDERED: D5W/0.9% SODIUM CHLORIDE 1,000 ML IV SCH (15:00)
[2023-09-05] MEDS: QUEtiapine FUMARATE 50MG TAB PO SCH (21:00)
[2023-09-05] MEDS: VALPROATE SOD INJ 250 MG in D5W 50 ML IV SCH (23:14)
[2023-09-06] VITALS (10 sets, daily range): BP systolic 118–150; BP diastolic 65–83; TEMP 97.9–99.5; O2SAT 92–96
[2023-09-06] MEDS: INSULIN LISPRO (NovoLOG) PER UNIT SC SCH ×6 (01:00→22:00)
[2023-09-06] MEDS: LEVALBUTEROL 1.25MG 0.5ML CONCENTRATE NEB INH SCH ×4 (03:03→20:07)
[2023-09-06] MEDS: PIPERACILLIN/TAZOBACTAM SOD 4.5 GM in D5W MINI-BAG PLUS 50 ML IV SCH ×4 (03:13→21:29)
[2023-09-06] MEDS: PANTOPRAZOLE 40MG VIAL IV SCH ×2 (03:13→16:17)
[2023-09-06] MEDS: VANCOMYCIN HCL 750 MG, VIAL MATE ADAPTER 1 EACH in D5W 250 ML IV SCH ×2 (04:33→16:17)
[2023-09-06] MEDS: LEVOTHYROXINE 25MCG TABLET (0.025MG) PO SCH (05:11)
[2023-09-06] MEDS: SUCRALFATE SUSP 1GM/10ML UD PO SCH ×4 (05:11→23:06)
[2023-09-06 06:29] LABS: BASO % 0.2 % (0.0-1.0); EOS # 0.1 10^3/uL (0.0-0.5); EOS % 1.2 % (0.0-3.0); HEMATOCRIT 25.9 % (42.0-52.0); LYMPH # 2.6 10^3/uL (1.5-5.0); LYMPH % 43.7 % (24.0-44.0); MEAN CORPUSCULAR HEMOGLOBIN 30.7 pg (27.0-33.0); MEAN CORPUSCULAR HGB CONC 33.2 g/dl (32.0-36.5); MEAN CORPUSCULAR VOLUME 92.5 fl (80.0-96.0); MONO # 0.1 10^3/uL (0.0-0.8); MONO % 1.8 % (2.0-8.0); NEUTROPHILS # 3.2 10^3/uL (1.5-8.5); NEUTROPHILS % 52.6 % (36.0-66.0)
[2023-09-06 06:41] LABS: HEMOGLOBIN 8.6 g/dl (13.5-17.5); PLATELET COUNT, AUTOMATED 92 10^3/uL (150-450)
[2023-09-06 06:55] LABS: BLOOD UREA NITROGEN 14 MG/DL (9-23); CARBON DIOXIDE LEVEL 28 MMOL/L (20-31); CHLORIDE LEVEL 108 MMOL/L (98-107); CREATININE FOR GFR 0.77 MG/DL (0.70-1.30); GLOMERULAR FILTRATION RATE > 60.0 (>42); GLUCOSE, FASTING 118 MG/DL (74-106); POTASSIUM SERUM 3.2 MMOL/L (3.5-5.1); SODIUM LEVEL 143 MMOL/L (136-145)
[2023-09-06] MEDS: SYMBICORT 80/4.5MCG INHALER 6GM INH SCH ×2 (07:22→20:07)
[2023-09-06] MEDS: allopurinoL 100 MG TAB PO SCH (09:00)
[2023-09-06] MEDS: FLUoxetine 20MG CAP PO SCH (09:00)
[2023-09-06] MEDS: SITagliptin 50 MG TAB (JANUVIA) PO SCH (09:00)
[2023-09-06] MEDS: ASPIRIN 81MG ENTERIC TABLET PO SCH (09:00)
[2023-09-06] MEDS: QUEtiapine FUMARATE 25 MG TAB PO SCH (09:00)
[2023-09-06] MEDS: buPROPion **XL** TABLET 150MG (WELLBUTRIN XL) PO SCH (09:00)
[2023-09-06] MEDS: LEVEMIR (INSULIN DETEMIR) 1 UNITS/0.01ML SC SCH (09:17)
[2023-09-06] MEDS: NYSTATIN 100,000 UNITS/GM TOPICAL PWD 15GM TOP SCH ×2 (09:30→22:45)
[2023-09-06] MEDS ORDERED: LIDOCAINE 1% MDV 20ML VIAL As Ordered ONE (10:29)
[2023-09-06] MEDS: VALPROATE SOD INJ 250 MG in D5W 50 ML IV SCH ×2 (12:43→22:46)
[2023-09-06] MEDS ORDERED: KCL 40MEQ IN D5/NS 1000ML 1,000 ML IV SCH (13:00)
[2023-09-06] MEDS: SODIUM CHLORIDE 0.9% INJ 10 ML SYR IV SCH (16:51)
[2023-09-06] MEDS ORDERED: ACETAMINOPHEN *IV* 1,000 MG in IV 1 EA IV ONE (18:15)
[2023-09-07] MEDS: LEVALBUTEROL 1.25MG 0.5ML CONCENTRATE NEB INH SCH ×4 (01:05→19:52)
[2023-09-07] MEDS: INSULIN LISPRO (NovoLOG) PER UNIT SC SCH ×6 (02:00→21:33)
[2023-09-07 02:04] VITALS: BP 142/76; TEMP 98.7; O2SAT 94
[2023-09-07] MEDS: PIPERACILLIN/TAZOBACTAM SOD 4.5 GM in D5W MINI-BAG PLUS 50 ML IV SCH ×4 (02:12→20:01)
[2023-09-07] MEDS: PANTOPRAZOLE 40MG VIAL IV SCH ×2 (04:50→16:04)
[2023-09-07] MEDS: VANCOMYCIN HCL 750 MG, VIAL MATE ADAPTER 1 EACH in D5W 250 ML IV SCH ×2 (04:50→16:07)
[2023-09-07] MEDS: SUCRALFATE SUSP 1GM/10ML UD PO SCH ×4 (05:30→23:30)
[2023-09-07] MEDS: SODIUM CHLORIDE 0.9% INJ 10 ML SYR IV SCH ×2 (05:30→17:16)
[2023-09-07 06:08] LABS: BASO % 0.2 % (0.0-1.0); EOS # 0.1 10^3/uL (0.0-0.5); EOS % 1.5 % (0.0-3.0); HEMATOCRIT 27.5 % (42.0-52.0); HEMOGLOBIN 9.1 g/dl (13.5-17.5); LYMPH # 2.6 10^3/uL (1.5-5.0); LYMPH % 42.9 % (24.0-44.0); MEAN CORPUSCULAR HGB CONC 33.1 g/dl (32.0-36.5); MEAN CORPUSCULAR VOLUME 93.5 fl (80.0-96.0); MONO # 0.1 10^3/uL (0.0-0.8); MONO % 1.6 % (2.0-8.0); NEUTROPHILS # 3.3 10^3/uL (1.5-8.5); NEUTROPHILS % 53.1 % (36.0-66.0); PLATELET COUNT, AUTOMATED 107 10^3/uL (150-450); RED BLOOD COUNT 2.94 10^6/uL (4.30-6.10); WHITE BLOOD COUNT 6.2 10^3/uL (4.0-10.0)
[2023-09-07] MEDS: SYMBICORT 80/4.5MCG INHALER 6GM INH SCH ×2 (06:17→19:52)
[2023-09-07 06:25] VITALS: BP 125/73; TEMP 98.8; O2SAT 94
[2023-09-07 06:35] LABS: BLOOD UREA NITROGEN 10 MG/DL (9-23); CALCIUM LEVEL 7.2 MG/DL (8.3-10.6); CARBON DIOXIDE LEVEL 28 MMOL/L (20-31); CHLORIDE LEVEL 110 MMOL/L (98-107); GLOMERULAR FILTRATION RATE > 60.0 (>42); GLUCOSE, FASTING 94 MG/DL (74-106); POTASSIUM SERUM 3.5 MMOL/L (3.5-5.1); SODIUM LEVEL 145 MMOL/L (136-145)
[2023-09-07] MEDS: SODIUM CHLORIDE 0.9% INJ 10 ML SYR IV PRN (07:42)
[2023-09-07] MEDS: NYSTATIN 100,000 UNITS/GM TOPICAL PWD 15GM TOP SCH (07:43)
[2023-09-07] MEDS: VALPROATE SOD INJ 250 MG in D5W 50 ML IV SCH ×2 (09:16→21:07)
[2023-09-07 10:00] VITALS: BP 124/71; TEMP 98.2; O2SAT 97
[2023-09-07] MEDS ORDERED: FLUCONAZOLE 200 MG in IV 1 EA IV ONE (11:00)
[2023-09-07 14:00] VITALS: BP 118/70; TEMP 99.5; O2SAT 96
[2023-09-07 18:00] VITALS: BP 155/87; TEMP 99.4; O2SAT 96
[2023-09-07] MEDS ORDERED: FAT EMULSION IV 250 ML IV ONE (18:00)
[2023-09-07] MEDS ORDERED: MULTIVITAMIN -ADULT INJECTION 10 ML, ZINC/COPPER/MANGANESE/SELENIUM 1 ML in AMINO AC/EL... IV SCH (18:00)
[2023-09-07] MEDS: CLOTRIMAZOLE 1% TOPICAL CREAM 30GM TOP SCH (21:07)
[2023-09-07 22:00] VITALS: BP 152/89; TEMP 98.8; O2SAT 95
[2023-09-08] VITALS (7 sets, daily range): BP systolic 134–148; BP diastolic 62–86; TEMP 97.9–100; O2SAT 92–97
[2023-09-08] MEDS: INSULIN LISPRO (NovoLOG) PER UNIT SC SCH ×6 (01:56→22:00)
[2023-09-08] MEDS: PIPERACILLIN/TAZOBACTAM SOD 4.5 GM in D5W MINI-BAG PLUS 50 ML IV SCH ×4 (02:00→20:17)
[2023-09-08] MEDS: LEVALBUTEROL 1.25MG 0.5ML CONCENTRATE NEB INH SCH ×4 (02:53→19:48)
[2023-09-08] MEDS: PANTOPRAZOLE 40MG VIAL IV SCH ×2 (04:05→15:09)
[2023-09-08] MEDS: VANCOMYCIN HCL 750 MG, VIAL MATE ADAPTER 1 EACH in D5W 250 ML IV SCH ×2 (04:05→15:10)
[2023-09-08] MEDS: SUCRALFATE SUSP 1GM/10ML UD PO SCH ×4 (05:25→21:34)
[2023-09-08] MEDS: SODIUM CHLORIDE 0.9% INJ 10 ML SYR IV SCH ×2 (05:33→17:37)
[2023-09-08 07:12] LABS: BASO % 0.2 % (0.0-1.0); EOS # 0.1 10^3/uL (0.0-0.5); EOS % 1.5 % (0.0-3.0); HEMATOCRIT 27.1 % (42.0-52.0); HEMOGLOBIN 8.9 g/dl (13.5-17.5); LYMPH # 2.5 10^3/uL (1.5-5.0); LYMPH % 44.6 % (24.0-44.0); MEAN CORPUSCULAR HEMOGLOBIN 30.8 pg (27.0-33.0); MEAN CORPUSCULAR HGB CONC 32.8 g/dl (32.0-36.5); MEAN CORPUSCULAR VOLUME 93.8 fl (80.0-96.0); MONO # 0.1 10^3/uL (0.0-0.8); MONO % 1.8 % (2.0-8.0); NEUTROPHILS # 2.8 10^3/uL (1.5-8.5); NEUTROPHILS % 51.2 % (36.0-66.0); PLATELET COUNT, AUTOMATED 131 10^3/uL (150-450); RED BLOOD COUNT 2.89 10^6/uL (4.30-6.10); WHITE BLOOD COUNT 5.5 10^3/uL (4.0-10.0)
[2023-09-08 07:40] LABS: BLOOD UREA NITROGEN 9 MG/DL (9-23); CALCIUM LEVEL 7.4 MG/DL (8.3-10.6); CARBON DIOXIDE LEVEL 27 MMOL/L (20-31); CHLORIDE LEVEL 107 MMOL/L (98-107); CREATININE FOR GFR 0.62 MG/DL (0.70-1.30); GLOMERULAR FILTRATION RATE > 60.0 (>42); GLUCOSE, FASTING 264 MG/DL (74-106); POTASSIUM SERUM 3.7 MMOL/L (3.5-5.1); SODIUM LEVEL 138 MMOL/L (136-145)
[2023-09-08] MEDS: SYMBICORT 80/4.5MCG INHALER 6GM INH SCH ×2 (07:59→19:49)
[2023-09-08] MEDS: VALPROATE SOD INJ 250 MG in D5W 50 ML IV SCH ×2 (09:15→21:14)
[2023-09-08] MEDS: SODIUM CHLORIDE 0.9% INJ 10 ML SYR IV PRN ×2 (09:18→10:33)
[2023-09-08] MEDS: LEVEMIR (INSULIN DETEMIR) 1 UNITS/0.01ML SC SCH (10:31)
[2023-09-08] MEDS: CLOTRIMAZOLE 1% TOPICAL CREAM 30GM TOP SCH ×2 (10:32→21:14)
[2023-09-08] MEDS ORDERED: AMINO AC/ELECTROLYTE/DEX/CALC 2,000 ML IV SCH (18:00)
[2023-09-08] MEDS ORDERED: FAT EMULSION IV 250 ML IV ONE (18:00)
[2023-09-08] MEDS: CEPACOL LOZENGE PO PRN (20:22)
[2023-09-09] VITALS (7 sets, daily range): BP systolic 148–161; BP diastolic 75–89; TEMP 98.9–99.2; O2SAT 90–97
[2023-09-09] MEDS: INSULIN LISPRO (NovoLOG) PER UNIT SC SCH ×6 (02:24→20:57)
[2023-09-09] MEDS: LEVALBUTEROL 1.25MG 0.5ML CONCENTRATE NEB INH SCH ×4 (03:08→19:56)
[2023-09-09] MEDS: PANTOPRAZOLE 40MG VIAL IV SCH ×2 (04:22→17:00)
[2023-09-09] MEDS: VANCOMYCIN HCL 750 MG, VIAL MATE ADAPTER 1 EACH in D5W 250 ML IV SCH ×2 (04:22→17:00)
[2023-09-09] MEDS: SUCRALFATE SUSP 1GM/10ML UD PO SCH ×2 (04:23→11:00)
[2023-09-09] MEDS: CEPACOL LOZENGE PO PRN (06:21)
[2023-09-09] MEDS: SODIUM CHLORIDE 0.9% INJ 10 ML SYR IV SCH ×2 (06:21→18:12)
[2023-09-09 06:25] LABS: BASO % 0.2 % (0.0-1.0); EOS # 0.1 10^3/uL (0.0-0.5); EOS % 1.5 % (0.0-3.0); HEMATOCRIT 27.1 % (42.0-52.0); HEMOGLOBIN 8.9 g/dl (13.5-17.5); LYMPH # 2.9 10^3/uL (1.5-5.0); LYMPH % 52.7 % (24.0-44.0); MEAN CORPUSCULAR HEMOGLOBIN 30.9 pg (27.0-33.0); MEAN CORPUSCULAR HGB CONC 32.8 g/dl (32.0-36.5); MEAN CORPUSCULAR VOLUME 94.1 fl (80.0-96.0); MONO # 0.1 10^3/uL (0.0-0.8); MONO % 2.2 % (2.0-8.0); NEUTROPHILS # 2.3 10^3/uL (1.5-8.5); NEUTROPHILS % 42.7 % (36.0-66.0); PLATELET COUNT, AUTOMATED 151 10^3/uL (150-450); RED BLOOD COUNT 2.88 10^6/uL (4.30-6.10); WHITE BLOOD COUNT 5.5 10^3/uL (4.0-10.0)
[2023-09-09 06:54] LABS: BLOOD UREA NITROGEN 9 MG/DL (9-23); CALCIUM LEVEL 7.6 MG/DL (8.3-10.6); CARBON DIOXIDE LEVEL 29 MMOL/L (20-31); CHLORIDE LEVEL 107 MMOL/L (98-107); CREATININE FOR GFR 0.63 MG/DL (0.70-1.30); GLOMERULAR FILTRATION RATE > 60.0 (>42); GLUCOSE, FASTING 201 MG/DL (74-106); POTASSIUM SERUM 3.4 MMOL/L (3.5-5.1); SODIUM LEVEL 141 MMOL/L (136-145)
[2023-09-09] MEDS: SYMBICORT 80/4.5MCG INHALER 6GM INH SCH ×2 (07:34→19:56)
[2023-09-09] MEDS: LEVEMIR (INSULIN DETEMIR) 1 UNITS/0.01ML SC SCH (09:31)
[2023-09-09] MEDS: ENOXAPARIN 40MG/0.4ML SYRINGE (J1650 PER 10MG) SC SCH (09:32)
[2023-09-09] MEDS: CLOTRIMAZOLE 1% TOPICAL CREAM 30GM TOP SCH ×2 (09:33→20:56)
[2023-09-09] MEDS: VALPROATE SOD INJ 250 MG in D5W 50 ML IV SCH ×2 (09:33→20:54)
[2023-09-09] MEDS: KCL 10MEQ/100ML SWI (KRUN) 10 MEQ in IV 1 EA IV SCH ×2 (10:55→11:42)
[2023-09-09] MEDS ORDERED: AMINO AC/ELECTROLYTE/DEX/CALC 2,000 ML IV SCH (18:00)
[2023-09-09] MEDS ORDERED: FAT EMULSION IV 250 ML IV ONE (18:00)
[2023-09-10 02:00] VITALS: BP 158/76; TEMP 98.4; O2SAT 96
[2023-09-10] MEDS: LEVALBUTEROL 1.25MG 0.5ML CONCENTRATE NEB INH SCH ×4 (02:03→20:41)
[2023-09-10] MEDS: VANCOMYCIN HCL 750 MG, VIAL MATE ADAPTER 1 EACH in D5W 250 ML IV SCH ×2 (04:16→17:36)
[2023-09-10] MEDS: PANTOPRAZOLE 40MG VIAL IV SCH ×2 (04:16→17:36)
[2023-09-10 06:00] VITALS: BP 135/73; TEMP 98.9; O2SAT 94
[2023-09-10 06:40] LABS: BASO % 0.4 % (0.0-1.0); EOS # 0.1 10^3/uL (0.0-0.5); EOS % 1.5 % (0.0-3.0); HEMATOCRIT 27.9 % (42.0-52.0); HEMOGLOBIN 9.2 g/dl (13.5-17.5); LYMPH # 2.9 10^3/uL (1.5-5.0); LYMPH % 55.5 % (24.0-44.0); MEAN CORPUSCULAR HEMOGLOBIN 30.8 pg (27.0-33.0); MEAN CORPUSCULAR VOLUME 93.3 fl (80.0-96.0); MONO # 0.1 10^3/uL (0.0-0.8); MONO % 2.5 % (2.0-8.0); NEUTROPHILS # 2.1 10^3/uL (1.5-8.5); NEUTROPHILS % 39.2 % (36.0-66.0); PLATELET COUNT, AUTOMATED 159 10^3/uL (150-450); RED BLOOD COUNT 2.99 10^6/uL (4.30-6.10); WHITE BLOOD COUNT 5.3 10^3/uL (4.0-10.0)
[2023-09-10] MEDS: SODIUM CHLORIDE 0.9% INJ 10 ML SYR IV SCH ×2 (06:49→17:38)
[2023-09-10] MEDS: INSULIN LISPRO (NovoLOG) PER UNIT SC SCH ×4 (06:54→20:22)
[2023-09-10 07:08] LABS: BLOOD UREA NITROGEN 8 MG/DL (9-23); CALCIUM LEVEL 7.6 MG/DL (8.3-10.6); CARBON DIOXIDE LEVEL 29 MMOL/L (20-31); CHLORIDE LEVEL 108 MMOL/L (98-107); CREATININE FOR GFR 0.55 MG/DL (0.70-1.30); GLOMERULAR FILTRATION RATE > 60.0 (>42); GLUCOSE, FASTING 242 MG/DL (74-106); POTASSIUM SERUM 3.6 MMOL/L (3.5-5.1); SODIUM LEVEL 142 MMOL/L (136-145)
[2023-09-10] MEDS: SYMBICORT 80/4.5MCG INHALER 6GM INH SCH ×2 (07:30→20:41)
[2023-09-10] MEDS: LEVEMIR (INSULIN DETEMIR) 1 UNITS/0.01ML SC SCH ×2 (09:35→21:55)
[2023-09-10] MEDS: VALPROATE SOD INJ 250 MG in D5W 50 ML IV SCH ×2 (09:36→21:54)
[2023-09-10] MEDS: ENOXAPARIN 40MG/0.4ML SYRINGE (J1650 PER 10MG) SC SCH (09:36)
[2023-09-10] MEDS: CLOTRIMAZOLE 1% TOPICAL CREAM 30GM TOP SCH ×2 (09:36→21:00)
[2023-09-10 10:00] VITALS: BP 141/74; TEMP 98.6; O2SAT 90
[2023-09-10 14:00] VITALS: BP 131/85; TEMP 99.8; O2SAT 98
[2023-09-10 18:00] VITALS: BP 138/76; TEMP 98.4; O2SAT 94
[2023-09-10] MEDS ORDERED: MULTIVITAMIN -ADULT INJECTION 10 ML, ZINC/COPPER/MANGANESE/SELENIUM 1 ML in AMINO AC/EL... IV SCH (18:00)
[2023-09-10] MEDS ORDERED: FAT EMULSION IV 250 ML IV ONE (18:00)
[2023-09-10 21:37] VITALS: BP 120/79; TEMP 97.8; O2SAT 92
[2023-09-10] MEDS: SODIUM CHLORIDE 0.9% INJ 10 ML SYR IV PRN (23:34)
[2023-09-11] MEDS: INSULIN LISPRO (NovoLOG) PER UNIT SC SCH ×6 (01:38→21:50)
[2023-09-11] MEDS: LEVALBUTEROL 1.25MG 0.5ML CONCENTRATE NEB INH SCH ×4 (01:46→19:40)
[2023-09-11 02:00] VITALS: BP 156/84; TEMP 98.8; O2SAT 93
[2023-09-11] MEDS ORDERED: LOPERAMIDE 2 MG CAPLET PO PRN (02:05)
[2023-09-11] MEDS: VANCOMYCIN HCL 750 MG, VIAL MATE ADAPTER 1 EACH in D5W 250 ML IV SCH ×2 (04:05→17:10)
[2023-09-11] MEDS: PANTOPRAZOLE 40MG VIAL IV SCH ×2 (04:05→15:26)
[2023-09-11 04:08] VITALS: BP 140/64; TEMP 98.8; O2SAT 96
[2023-09-11] MEDS: SODIUM CHLORIDE 0.9% INJ 10 ML SYR IV SCH ×2 (05:45→18:00)
[2023-09-11 06:11] LABS: BASO % 0.2 % (0.0-1.0); EOS # 0.1 10^3/uL (0.0-0.5); EOS % 1.9 % (0.0-3.0); HEMATOCRIT 28.7 % (42.0-52.0); HEMOGLOBIN 9.3 g/dl (13.5-17.5); LYMPH # 3.2 10^3/uL (1.5-5.0); LYMPH % 54.6 % (24.0-44.0); MEAN CORPUSCULAR HEMOGLOBIN 30.8 pg (27.0-33.0); MEAN CORPUSCULAR HGB CONC 32.4 g/dl (32.0-36.5); MONO # 0.2 10^3/uL (0.0-0.8); MONO % 3.3 % (2.0-8.0); NEUTROPHILS # 2.3 10^3/uL (1.5-8.5); NEUTROPHILS % 39.1 % (36.0-66.0); PLATELET COUNT, AUTOMATED 181 10^3/uL (150-450); RED BLOOD COUNT 3.02 10^6/uL (4.30-6.10); WHITE BLOOD COUNT 5.8 10^3/uL (4.0-10.0)
[2023-09-11 06:39] LABS: BLOOD UREA NITROGEN 10 MG/DL (9-23); CARBON DIOXIDE LEVEL 30 MMOL/L (20-31); CHLORIDE LEVEL 105 MMOL/L (98-107); CREATININE FOR GFR 0.59 MG/DL (0.70-1.30); GLOMERULAR FILTRATION RATE > 60.0 (>42); GLUCOSE, FASTING 160 MG/DL (74-106); POTASSIUM SERUM 3.3 MMOL/L (3.5-5.1); SODIUM LEVEL 140 MMOL/L (136-145)
[2023-09-11] MEDS: SYMBICORT 80/4.5MCG INHALER 6GM INH SCH ×2 (08:03→19:40)
[2023-09-11] MEDS: KCL 10MEQ/100ML SWI (KRUN) 10 MEQ in IV 1 EA IV SCH ×2 (08:41→10:15)
[2023-09-11] MEDS: CLOTRIMAZOLE 1% TOPICAL CREAM 30GM TOP SCH (08:42)
[2023-09-11] MEDS: VALPROATE SOD INJ 250 MG in D5W 50 ML IV SCH (08:42)
[2023-09-11] MEDS: ENOXAPARIN 40MG/0.4ML SYRINGE (J1650 PER 10MG) SC SCH (08:42)
[2023-09-11] MEDS: LEVEMIR (INSULIN DETEMIR) 1 UNITS/0.01ML SC SCH ×2 (08:46→21:50)
[2023-09-11 13:09] LABS: MAGNESIUM LEVEL 1.3 MG/DL (1.8-2.4); PHOSPHORUS LEVEL 2.2 MG/DL (2.4-5.1)
[2023-09-11 14:00] VITALS: BP 158/92; TEMP 98.4; O2SAT 94
[2023-09-11] MEDS ORDERED: LEVEMIR (INSULIN DETEMIR) 1 UNITS/0.01ML SC ONE (14:30)
[2023-09-11] MEDS: MAG SULF 1GM/100ML (MAG RUN) 1 GM in IV 1 EA IV SCH ×2 (15:26→18:18)
[2023-09-11] MEDS ORDERED: SODIUM PHOSPHATE INJ 30 MMOL in D5W 500 ML IV ONE (17:00)
[2023-09-11] MEDS ORDERED: AMINO AC/ELECTROLYTE/DEX/CALC 2,000 ML IV SCH (18:00)
[2023-09-11] MEDS ORDERED: FAT EMULSION IV 250 ML IV ONE (18:00)
[2023-09-11 19:46] VITALS: O2SAT 92
[2023-09-11 20:10] VITALS: BP 152/74; TEMP 98.6; O2SAT 93
[2023-09-12] VITALS (11 sets, daily range): BP systolic 109–163; BP diastolic 58–94; TEMP 98.1–99.7; O2SAT 92–99
[2023-09-12] MEDS: VALPROATE SOD INJ 250 MG in D5W 50 ML IV SCH ×3 (00:34→20:42)
[2023-09-12] MEDS: INSULIN LISPRO (NovoLOG) PER UNIT SC SCH ×6 (01:09→20:43)
[2023-09-12] MEDS: CLOTRIMAZOLE 1% TOPICAL CREAM 30GM TOP SCH ×3 (01:09→20:44)
[2023-09-12] MEDS: SODIUM CHLORIDE 0.9% INJ 10 ML SYR IV PRN (01:46)
[2023-09-12] MEDS: LEVALBUTEROL 1.25MG 0.5ML CONCENTRATE NEB INH SCH ×4 (02:24→19:27)
[2023-09-12] MEDS: PANTOPRAZOLE 40MG VIAL IV SCH ×2 (04:06→16:19)
[2023-09-12] MEDS: VANCOMYCIN HCL 750 MG, VIAL MATE ADAPTER 1 EACH in D5W 250 ML IV SCH ×2 (04:06→16:19)
[2023-09-12] MEDS: SODIUM CHLORIDE 0.9% INJ 10 ML SYR IV SCH ×2 (05:50→18:00)
[2023-09-12 06:18] LABS: BASO % 0.4 % (0.0-1.0); EOS # 0.1 10^3/uL (0.0-0.5); EOS % 2.7 % (0.0-3.0); HEMATOCRIT 26.6 % (42.0-52.0); HEMOGLOBIN 8.8 g/dl (13.5-17.5); LYMPH % 62.3 % (24.0-44.0); MEAN CORPUSCULAR HEMOGLOBIN 30.9 pg (27.0-33.0); MEAN CORPUSCULAR HGB CONC 33.1 g/dl (32.0-36.5); MEAN CORPUSCULAR VOLUME 93.3 fl (80.0-96.0); MONO # 0.1 10^3/uL (0.0-0.8); MONO % 2.5 % (2.0-8.0); NEUTROPHILS # 1.5 10^3/uL (1.5-8.5); NEUTROPHILS % 30.7 % (36.0-66.0); PLATELET COUNT, AUTOMATED 166 10^3/uL (150-450); RED BLOOD COUNT 2.85 10^6/uL (4.30-6.10); WHITE BLOOD COUNT 4.9 10^3/uL (4.0-10.0)
[2023-09-12 06:46] LABS: BLOOD UREA NITROGEN 9 MG/DL (9-23); CALCIUM LEVEL 7.6 MG/DL (8.3-10.6); CARBON DIOXIDE LEVEL 30 MMOL/L (20-31); CHLORIDE LEVEL 106 MMOL/L (98-107); CREATININE FOR GFR 0.53 MG/DL (0.70-1.30); GLOMERULAR FILTRATION RATE > 60.0 (>42); GLUCOSE, FASTING 198 MG/DL (74-106); MAGNESIUM LEVEL 1.5 MG/DL (1.8-2.4); PHOSPHORUS LEVEL 3.4 MG/DL (2.4-5.1); POTASSIUM SERUM 3.2 MMOL/L (3.5-5.1); SODIUM LEVEL 142 MMOL/L (136-145)
[2023-09-12] MEDS: MAG SULF 1GM/100ML (MAG RUN) 1 GM in IV 1 EA IV SCH ×2 (07:57→13:30)
[2023-09-12] MEDS: SYMBICORT 80/4.5MCG INHALER 6GM INH SCH ×2 (08:50→19:27)
[2023-09-12] MEDS: LEVEMIR (INSULIN DETEMIR) 1 UNITS/0.01ML SC SCH ×2 (08:59→20:43)
[2023-09-12] MEDS: ENOXAPARIN 40MG/0.4ML SYRINGE (J1650 PER 10MG) SC SCH ×2 (08:59→09:00)
[2023-09-12] MEDS ORDERED: LEVEMIR (INSULIN DETEMIR) 1 UNITS/0.01ML SC SCH (09:00)
[2023-09-12] MEDS: SITagliptin 50 MG TAB (JANUVIA) PO SCH (09:00)
[2023-09-12] MEDS: QUEtiapine FUMARATE 25 MG TAB PO SCH (09:00)
[2023-09-12] MEDS: ASPIRIN 81MG ENTERIC TABLET PO SCH (09:00)
[2023-09-12] MEDS: FLUoxetine 20MG CAP PO SCH (09:00)
[2023-09-12] MEDS: allopurinoL 100 MG TAB PO SCH (09:00)
[2023-09-12] MEDS: buPROPion **XL** TABLET 150MG (WELLBUTRIN XL) PO SCH (09:00)
[2023-09-12] MEDS ORDERED: propofoL 200 MG/20 ML VIAL As Ordered ONE ×2 (09:30→09:31)
[2023-09-12] MEDS ORDERED: LIDOCAINE 2% 100MG/5ML SDV (FOR ANES.) As Ordered ONE (09:31)
[2023-09-12] MEDS ORDERED: fentaNYL 100 MCG/2 ML INJECTION As Ordered ONE (11:46)
[2023-09-12] MEDS: KCL 10MEQ/100ML SWI (KRUN) 10 MEQ in IV 1 EA IV SCH ×4 (14:21→18:11)
[2023-09-12] MEDS ORDERED: FAT EMULSION IV 250 ML IV ONE (18:00)
[2023-09-12] MEDS ORDERED: MULTIVITAMIN -ADULT INJECTION 10 ML, ZINC/COPPER/MANGANESE/SELENIUM 1 ML in AMINO AC/EL... IV SCH (18:00)
[2023-09-12] MEDS: QUEtiapine FUMARATE 50MG TAB PO SCH (20:43)
[2023-09-13] MEDS: INSULIN LISPRO (NovoLOG) PER UNIT SC SCH ×6 (01:00→20:35)
[2023-09-13] MEDS: LEVALBUTEROL 1.25MG 0.5ML CONCENTRATE NEB INH SCH ×4 (01:20→19:08)
[2023-09-13 03:45] VITALS: BP 150/80; TEMP 100.2; O2SAT 91
[2023-09-13] MEDS: PANTOPRAZOLE 40MG VIAL IV SCH ×2 (03:50→16:49)
[2023-09-13] MEDS: LEVOTHYROXINE 25MCG TABLET (0.025MG) PO SCH (05:10)
[2023-09-13] MEDS: SODIUM CHLORIDE 0.9% INJ 10 ML SYR IV SCH ×2 (05:10→16:50)
[2023-09-13] MEDS: ACETAMINOPHEN TAB 650MG DOSE (2X325MG) PO PRN (05:13)
[2023-09-13] MEDS: SYMBICORT 80/4.5MCG INHALER 6GM INH SCH ×2 (07:34→19:08)
[2023-09-13 07:45] VITALS: BP 143/81; TEMP 99.7; O2SAT 91
[2023-09-13] MEDS: CLOTRIMAZOLE 1% TOPICAL CREAM 30GM TOP SCH ×2 (09:00→22:52)
[2023-09-13 09:07] LABS: BASO % 0.3 % (0.0-1.0); EOS # 0.1 10^3/uL (0.0-0.5); EOS % 1.3 % (0.0-3.0); HEMATOCRIT 29.3 % (42.0-52.0); HEMOGLOBIN 9.4 g/dl (13.5-17.5); LYMPH # 3.4 10^3/uL (1.5-5.0); MEAN CORPUSCULAR HEMOGLOBIN 29.9 pg (27.0-33.0); MEAN CORPUSCULAR HGB CONC 32.1 g/dl (32.0-36.5); MEAN CORPUSCULAR VOLUME 93.3 fl (80.0-96.0); MONO # 0.2 10^3/uL (0.0-0.8); MONO % 3.5 % (2.0-8.0); NEUTROPHILS # 3.1 10^3/uL (1.5-8.5); NEUTROPHILS % 44.9 % (36.0-66.0); PLATELET COUNT, AUTOMATED 189 10^3/uL (150-450); RED BLOOD COUNT 3.14 10^6/uL (4.30-6.10); WHITE BLOOD COUNT 6.9 10^3/uL (4.0-10.0)
[2023-09-13 09:37] LABS: BLOOD UREA NITROGEN 13 MG/DL (9-23); CALCIUM LEVEL 7.6 MG/DL (8.3-10.6); CARBON DIOXIDE LEVEL 30 MMOL/L (20-31); CHLORIDE LEVEL 103 MMOL/L (98-107); CREATININE FOR GFR 0.57 MG/DL (0.70-1.30); GLOMERULAR FILTRATION RATE > 60.0 (>42); GLUCOSE, FASTING 191 MG/DL (74-106); MAGNESIUM LEVEL 1.5 MG/DL (1.8-2.4); PHOSPHORUS LEVEL 2.8 MG/DL (2.4-5.1); POTASSIUM SERUM 4.1 MMOL/L (3.5-5.1); SODIUM LEVEL 139 MMOL/L (136-145)
[2023-09-13] MEDS: QUEtiapine FUMARATE 25 MG TAB PO SCH (09:58)
[2023-09-13] MEDS: SITagliptin 50 MG TAB (JANUVIA) PO SCH (09:58)
[2023-09-13] MEDS: ASPIRIN 81MG ENTERIC TABLET PO SCH (09:58)
[2023-09-13] MEDS: FLUoxetine 20MG CAP PO SCH (09:58)
[2023-09-13] MEDS: LEVEMIR (INSULIN DETEMIR) 1 UNITS/0.01ML SC SCH ×2 (09:58→20:36)
[2023-09-13] MEDS: buPROPion **XL** TABLET 150MG (WELLBUTRIN XL) PO SCH (09:58)
[2023-09-13] MEDS: allopurinoL 100 MG TAB PO SCH (09:59)
[2023-09-13] MEDS: VALPROATE SOD INJ 250 MG in D5W 50 ML IV SCH ×2 (09:59→20:34)
[2023-09-13] MEDS: ENOXAPARIN 40MG/0.4ML SYRINGE (J1650 PER 10MG) SC SCH (09:59)
[2023-09-13 11:45] VITALS: BP 122/65; TEMP 99.9; O2SAT 91
[2023-09-13] MEDS: MAG SULF 1GM/100ML (MAG RUN) 1 GM in IV 1 EA IV SCH ×3 (11:46→14:19)
[2023-09-13 14:00] VITALS: BP 125/66; TEMP 97.9; O2SAT 92
[2023-09-13 18:35] VITALS: TEMP 100.9
[2023-09-13] MEDS: QUEtiapine FUMARATE 50MG TAB PEG SCH (20:36)
[2023-09-13] MEDS: buPROPion 75 MG TAB GT SCH (20:38)
[2023-09-13 22:00] VITALS: BP 127/87; TEMP 99.4; O2SAT 94
[2023-09-14] MEDS: INSULIN LISPRO (NovoLOG) PER UNIT SC SCH ×6 (00:41→21:01)
[2023-09-14] MEDS: PANTOPRAZOLE 40MG VIAL IV SCH ×2 (03:35→17:03)
[2023-09-14] MEDS: LEVOTHYROXINE 25MCG TABLET (0.025MG) PEG SCH (05:28)
[2023-09-14] MEDS: SODIUM CHLORIDE 0.9% INJ 10 ML SYR IV SCH ×2 (05:29→17:04)
[2023-09-14 06:00] VITALS: BP 121/62; TEMP 97.9; O2SAT 91
[2023-09-14 06:03] LABS: BASO % 0.1 % (0.0-1.0); EOS # 0.1 10^3/uL (0.0-0.5); EOS % 1.2 % (0.0-3.0); HEMATOCRIT 29.4 % (42.0-52.0); HEMOGLOBIN 9.6 g/dl (13.5-17.5); LYMPH # 3.7 10^3/uL (1.5-5.0); LYMPH % 54.4 % (24.0-44.0); MEAN CORPUSCULAR HEMOGLOBIN 30.9 pg (27.0-33.0); MEAN CORPUSCULAR HGB CONC 32.7 g/dl (32.0-36.5); MEAN CORPUSCULAR VOLUME 94.5 fl (80.0-96.0); MONO # 0.2 10^3/uL (0.0-0.8); MONO % 2.9 % (2.0-8.0); NEUTROPHILS # 2.8 10^3/uL (1.5-8.5); PLATELET COUNT, AUTOMATED 194 10^3/uL (150-450); RED BLOOD COUNT 3.11 10^6/uL (4.30-6.10); WHITE BLOOD COUNT 6.8 10^3/uL (4.0-10.0)
[2023-09-14 06:28] LABS: BLOOD UREA NITROGEN 17 MG/DL (9-23); CALCIUM LEVEL 7.3 MG/DL (8.3-10.6); CARBON DIOXIDE LEVEL 29 MMOL/L (20-31); CHLORIDE LEVEL 103 MMOL/L (98-107); CREATININE FOR GFR 0.67 MG/DL (0.70-1.30); GLOMERULAR FILTRATION RATE > 60.0 (>42); GLUCOSE, FASTING 206 MG/DL (74-106); MAGNESIUM LEVEL 1.9 MG/DL (1.8-2.4); PHOSPHORUS LEVEL 2.7 MG/DL (2.4-5.1); POTASSIUM SERUM 4.3 MMOL/L (3.5-5.1); SODIUM LEVEL 137 MMOL/L (136-145)
[2023-09-14] MEDS: SYMBICORT 80/4.5MCG INHALER 6GM INH SCH ×2 (07:17→19:52)
[2023-09-14] MEDS: LEVALBUTEROL 1.25MG 0.5ML CONCENTRATE NEB INH SCH ×3 (07:17→19:52)
[2023-09-14] MEDS: buPROPion 75 MG TAB GT SCH ×2 (09:11→21:01)
[2023-09-14] MEDS: QUEtiapine FUMARATE 25 MG TAB PEG SCH (09:11)
[2023-09-14] MEDS: SITagliptin 50 MG TAB (JANUVIA) PEG SCH (09:11)
[2023-09-14] MEDS: FLUoxetine 20MG CAP PEG SCH (09:11)
[2023-09-14] MEDS: LEVEMIR (INSULIN DETEMIR) 1 UNITS/0.01ML SC SCH ×2 (09:12→21:01)
[2023-09-14] MEDS: allopurinoL 100 MG TAB PEG SCH (09:12)
[2023-09-14] MEDS: ASPIRIN 81MG CHEW TABLET PEG SCH (09:12)
[2023-09-14] MEDS: ENOXAPARIN 40MG/0.4ML SYRINGE (J1650 PER 10MG) SC SCH (09:13)
[2023-09-14] MEDS: VALPROATE SOD INJ 250 MG in D5W 50 ML IV SCH ×2 (09:14→21:00)
[2023-09-14] MEDS: CLOTRIMAZOLE 1% TOPICAL CREAM 30GM TOP SCH ×2 (09:14→21:02)
[2023-09-14 14:00] VITALS: BP 148/82; TEMP 99.5; O2SAT 95
[2023-09-14 19:41] VITALS: BP 151/72; TEMP 99.1; O2SAT 93
[2023-09-14] MEDS: QUEtiapine FUMARATE 50MG TAB PEG SCH (21:01)
[2023-09-15] MEDS: INSULIN LISPRO (NovoLOG) PER UNIT SC SCH ×6 (00:44→21:00)
[2023-09-15] MEDS: LEVALBUTEROL 1.25MG 0.5ML CONCENTRATE NEB INH SCH ×4 (01:04→19:35)
[2023-09-15 04:41] VITALS: BP 152/76; TEMP 99; O2SAT 94
[2023-09-15] MEDS: LEVOTHYROXINE 25MCG TABLET (0.025MG) PEG SCH (05:31)
[2023-09-15] MEDS: PANTOPRAZOLE 40MG VIAL IV SCH (05:31)
[2023-09-15] MEDS: SODIUM CHLORIDE 0.9% INJ 10 ML SYR IV SCH ×2 (05:32→17:06)
[2023-09-15 06:05] LABS: BASO % 0.2 % (0.0-1.0); EOS # 0.1 10^3/uL (0.0-0.5); EOS % 1.7 % (0.0-3.0); HEMATOCRIT 27.1 % (42.0-52.0); HEMOGLOBIN 8.8 g/dl (13.5-17.5); LYMPH # 3.2 10^3/uL (1.5-5.0); MEAN CORPUSCULAR HEMOGLOBIN 30.9 pg (27.0-33.0); MEAN CORPUSCULAR HGB CONC 32.5 g/dl (32.0-36.5); MEAN CORPUSCULAR VOLUME 95.1 fl (80.0-96.0); MONO # 0.2 10^3/uL (0.0-0.8); MONO % 2.7 % (2.0-8.0); NEUTROPHILS # 2.3 10^3/uL (1.5-8.5); NEUTROPHILS % 39.7 % (36.0-66.0); PLATELET COUNT, AUTOMATED 166 10^3/uL (150-450); RED BLOOD COUNT 2.85 10^6/uL (4.30-6.10); WHITE BLOOD COUNT 5.9 10^3/uL (4.0-10.0)
[2023-09-15 06:18] LABS: BLOOD UREA NITROGEN 14 MG/DL (9-23); CALCIUM LEVEL 7.7 MG/DL (8.3-10.6); CARBON DIOXIDE LEVEL 31 MMOL/L (20-31); CHLORIDE LEVEL 105 MMOL/L (98-107); CREATININE FOR GFR 0.61 MG/DL (0.70-1.30); GLOMERULAR FILTRATION RATE > 60.0 (>42); GLUCOSE, FASTING 133 MG/DL (74-106); POTASSIUM SERUM 4.5 MMOL/L (3.5-5.1); SODIUM LEVEL 141 MMOL/L (136-145)
[2023-09-15] MEDS: SYMBICORT 80/4.5MCG INHALER 6GM INH SCH ×2 (07:09→19:35)
[2023-09-15] MEDS: ENOXAPARIN 40MG/0.4ML SYRINGE (J1650 PER 10MG) SC SCH (08:41)
[2023-09-15] MEDS: CLOTRIMAZOLE 1% TOPICAL CREAM 30GM TOP SCH ×2 (08:42→21:51)
[2023-09-15] MEDS: LEVEMIR (INSULIN DETEMIR) 1 UNITS/0.01ML SC SCH ×2 (08:42→19:11)
[2023-09-15] MEDS: VALPROATE SOD INJ 250 MG in D5W 50 ML IV SCH (08:42)
[2023-09-15] MEDS: SITagliptin 50 MG TAB (JANUVIA) PEG SCH (08:43)
[2023-09-15] MEDS: ASPIRIN 81MG CHEW TABLET PEG SCH (08:43)
[2023-09-15] MEDS: buPROPion 75 MG TAB GT SCH ×2 (08:43→21:50)
[2023-09-15] MEDS: allopurinoL 100 MG TAB PEG SCH (08:43)
[2023-09-15] MEDS: QUEtiapine FUMARATE 25 MG TAB PEG SCH (08:43)
[2023-09-15] MEDS: FLUoxetine 20MG CAP PEG SCH (08:43)
[2023-09-15] MEDS: DEXTROSE 50% 50ML SYRINGE IV PRN (18:41)
[2023-09-15] MEDS: SODIUM CHLORIDE 0.9% INJ 10 ML SYR IV PRN (18:41)
[2023-09-15 19:47] VITALS: BP 159/82; TEMP 98.6; O2SAT 96
[2023-09-15] MEDS: OMEPRAZOLE/SODIUM BICARB 20-840MG 10ML ORAL SYRINGE GT SCH (21:50)
[2023-09-15] MEDS: DIVALPROEX SPRINKLE 125 MG CAP GT SCH (21:50)
[2023-09-15] MEDS: QUEtiapine FUMARATE 50MG TAB PEG SCH (21:50)
[2023-09-16] MEDS: INSULIN LISPRO (NovoLOG) PER UNIT SC SCH ×5 (00:56→17:00)
[2023-09-16] MEDS: LEVALBUTEROL 1.25MG 0.5ML CONCENTRATE NEB INH SCH ×3 (00:58→13:33)
[2023-09-16 04:34] VITALS: BP 147/81; TEMP 98.4; O2SAT 93
[2023-09-16] MEDS: LEVOTHYROXINE 25MCG TABLET (0.025MG) PEG SCH (05:51)
[2023-09-16] MEDS: SODIUM CHLORIDE 0.9% INJ 10 ML SYR IV SCH ×2 (05:51→17:13)
[2023-09-16] MEDS: SYMBICORT 80/4.5MCG INHALER 6GM INH SCH ×2 (07:15→20:15)
[2023-09-16 08:15] LABS: BASO % 0.4 % (0.0-1.0); EOS # 0.2 10^3/uL (0.0-0.5); EOS % 3.3 % (0.0-3.0); HEMATOCRIT 28.4 % (42.0-52.0); LYMPH # 2.5 10^3/uL (1.5-5.0); LYMPH % 55.1 % (24.0-44.0); MEAN CORPUSCULAR HEMOGLOBIN 30.1 pg (27.0-33.0); MEAN CORPUSCULAR HGB CONC 31.7 g/dl (32.0-36.5); MONO # 0.1 10^3/uL (0.0-0.8); MONO % 3.1 % (2.0-8.0); NEUTROPHILS # 1.7 10^3/uL (1.5-8.5); NEUTROPHILS % 37.2 % (36.0-66.0); PLATELET COUNT, AUTOMATED 165 10^3/uL (150-450); RED BLOOD COUNT 2.99 10^6/uL (4.30-6.10); WHITE BLOOD COUNT 4.6 10^3/uL (4.0-10.0)
[2023-09-16 08:44] LABS: BLOOD UREA NITROGEN 13 MG/DL (9-23); CALCIUM LEVEL 8.2 MG/DL (8.3-10.6); CARBON DIOXIDE LEVEL 28 MMOL/L (20-31); CHLORIDE LEVEL 102 MMOL/L (98-107); CREATININE FOR GFR 0.61 MG/DL (0.70-1.30); GLOMERULAR FILTRATION RATE > 60.0 (>42); GLUCOSE, FASTING 187 MG/DL (74-106); POTASSIUM SERUM 4.9 MMOL/L (3.5-5.1); SODIUM LEVEL 137 MMOL/L (136-145)
[2023-09-16] MEDS: OMEPRAZOLE/SODIUM BICARB 20-840MG 10ML ORAL SYRINGE GT SCH ×2 (09:43→21:35)
[2023-09-16] MEDS: LEVEMIR (INSULIN DETEMIR) 1 UNITS/0.01ML SC SCH ×2 (09:44→21:00)
[2023-09-16] MEDS: FLUoxetine 20MG CAP PEG SCH (09:45)
[2023-09-16] MEDS: allopurinoL 100 MG TAB PEG SCH (09:45)
[2023-09-16] MEDS: ENOXAPARIN 40MG/0.4ML SYRINGE (J1650 PER 10MG) SC SCH (09:45)
[2023-09-16] MEDS: ASPIRIN 81MG CHEW TABLET PEG SCH (09:45)
[2023-09-16] MEDS: SITagliptin 50 MG TAB (JANUVIA) PEG SCH (09:45)
[2023-09-16] MEDS: buPROPion 75 MG TAB GT SCH ×2 (09:45→21:35)
[2023-09-16] MEDS: QUEtiapine FUMARATE 25 MG TAB PEG SCH (09:45)
[2023-09-16] MEDS: CLOTRIMAZOLE 1% TOPICAL CREAM 30GM TOP SCH ×2 (09:46→21:36)
[2023-09-16] MEDS: DIVALPROEX SPRINKLE 125 MG CAP GT SCH ×2 (09:46→21:36)
[2023-09-16] MEDS ORDERED: LEVALBUTEROL 1.25MG 0.5ML CONCENTRATE NEB INH PRN (18:30)
[2023-09-16 21:06] VITALS: BP 144/80; TEMP 97.9; O2SAT 96
[2023-09-16] MEDS: QUEtiapine FUMARATE 50MG TAB PEG SCH (21:36)
[2023-09-17 04:47] VITALS: BP 144/80; TEMP 97.9; O2SAT 93
[2023-09-17] MEDS: LEVOTHYROXINE 25MCG TABLET (0.025MG) PEG SCH (06:11)
[2023-09-17] MEDS: SODIUM CHLORIDE 0.9% INJ 10 ML SYR IV SCH ×2 (06:12→18:38)
[2023-09-17 06:43] LABS: BASO % 0.4 % (0.0-1.0); EOS # 0.2 10^3/uL (0.0-0.5); HEMATOCRIT 27.6 % (42.0-52.0); HEMOGLOBIN 8.8 g/dl (13.5-17.5); LYMPH # 3.2 10^3/uL (1.5-5.0); LYMPH % 63.9 % (24.0-44.0); MEAN CORPUSCULAR HEMOGLOBIN 30.3 pg (27.0-33.0); MEAN CORPUSCULAR HGB CONC 31.9 g/dl (32.0-36.5); MEAN CORPUSCULAR VOLUME 95.2 fl (80.0-96.0); MONO # 0.2 10^3/uL (0.0-0.8); MONO % 3.4 % (2.0-8.0); NEUTROPHILS # 1.4 10^3/uL (1.5-8.5); NEUTROPHILS % 28.5 % (36.0-66.0); PLATELET COUNT, AUTOMATED 157 10^3/uL (150-450)
[2023-09-17 07:05] LABS: BLOOD UREA NITROGEN 11 MG/DL (9-23); CALCIUM LEVEL 8.1 MG/DL (8.3-10.6); CARBON DIOXIDE LEVEL 29 MMOL/L (20-31); CHLORIDE LEVEL 103 MMOL/L (98-107); CREATININE FOR GFR 0.64 MG/DL (0.70-1.30); GLOMERULAR FILTRATION RATE > 60.0 (>42); GLUCOSE, FASTING 143 MG/DL (74-106); POTASSIUM SERUM 4.7 MMOL/L (3.5-5.1); SODIUM LEVEL 136 MMOL/L (136-145)
[2023-09-17] MEDS: SYMBICORT 80/4.5MCG INHALER 6GM INH SCH ×2 (08:21→20:09)
[2023-09-17] MEDS ORDERED: POTA20EL GT (08:29)
[2023-09-17] MEDS ORDERED: DEPA1CAP GT (08:29)
[2023-09-17] MEDS ORDERED: PREV30TA3 GT (08:29)
[2023-09-17] MEDS ORDERED: BUPR75TA5 GT (08:29)
[2023-09-17] MEDS ORDERED: OMEP40CA4 PO (08:29)
[2023-09-17 09:12] LABS: MAGNESIUM LEVEL 1.6 MG/DL (1.8-2.4)
[2023-09-17] MEDS: SITagliptin 50 MG TAB (JANUVIA) PEG SCH (09:58)
[2023-09-17] MEDS: buPROPion 75 MG TAB GT SCH ×2 (09:58→22:02)
[2023-09-17] MEDS: DAPAGLIFLOZIN PROPANEDIOL 10MG TABLET (FARXIGA) GT SCH (09:58)
[2023-09-17] MEDS: ASPIRIN 81MG CHEW TABLET PEG SCH (09:58)
[2023-09-17] MEDS: DIVALPROEX SPRINKLE 125 MG CAP GT SCH ×2 (09:58→22:02)
[2023-09-17] MEDS: QUEtiapine FUMARATE 25 MG TAB PEG SCH (09:58)
[2023-09-17] MEDS: allopurinoL 100 MG TAB PEG SCH (09:58)
[2023-09-17] MEDS: FLUoxetine 20MG CAP PEG SCH (09:58)
[2023-09-17] MEDS: ENOXAPARIN 40MG/0.4ML SYRINGE (J1650 PER 10MG) SC SCH (09:59)
[2023-09-17] MEDS: OMEPRAZOLE/SODIUM BICARB 20-840MG 10ML ORAL SYRINGE GT SCH ×2 (09:59→22:03)
[2023-09-17] MEDS: LEVEMIR (INSULIN DETEMIR) 1 UNITS/0.01ML SC SCH ×2 (09:59→22:03)
[2023-09-17] MEDS: CLOTRIMAZOLE 1% TOPICAL CREAM 30GM TOP SCH ×2 (10:00→22:04)
[2023-09-17] MEDS ORDERED: METO1TAB87 GT (10:37)
[2023-09-17] MEDS ORDERED: ELIQ5TAB GT (10:37)
[2023-09-17] MEDS: MAG SULF 1GM/100ML (MAG RUN) 1 GM in IV 1 EA IV SCH ×2 (11:44→13:06)
[2023-09-17] MEDS: METOPROLOL TART 25 MG TABLET GT SCH ×2 (13:47→22:01)
[2023-09-17] MEDS: MAGNESIUM OXIDE 400MG TAB (MAG-OX) GT SCH ×2 (13:47→22:02)
[2023-09-17] MEDS: SUCRALFATE SUSP 1GM/10ML UD PEG SCH ×3 (14:44→22:03)
[2023-09-17 21:59] VITALS: BP 139/80; O2SAT 95
[2023-09-17] MEDS: APIXABAN 5 MG TAB (ELIQUIS) GT SCH (22:01)
[2023-09-17] MEDS: QUEtiapine FUMARATE 50MG TAB PEG SCH (22:02)
[2023-09-18 05:54] VITALS: BP 132/78; TEMP 98.2; O2SAT 91
[2023-09-18] MEDS: SODIUM CHLORIDE 0.9% INJ 10 ML SYR IV SCH (06:23)
[2023-09-18] MEDS: LEVOTHYROXINE 25MCG TABLET (0.025MG) PEG SCH (06:37)
[2023-09-18 06:44] LABS: BASO % 0.3 % (0.0-1.0); EOS # 0.2 10^3/uL (0.0-0.5); EOS % 2.5 % (0.0-3.0); HEMOGLOBIN 9.1 g/dl (13.5-17.5); LYMPH # 3.7 10^3/uL (1.5-5.0); LYMPH % 57.9 % (24.0-44.0); MEAN CORPUSCULAR HEMOGLOBIN 30.4 pg (27.0-33.0); MEAN CORPUSCULAR HGB CONC 32.5 g/dl (32.0-36.5); MEAN CORPUSCULAR VOLUME 93.6 fl (80.0-96.0); MONO # 0.2 10^3/uL (0.0-0.8); MONO % 3.3 % (2.0-8.0); NEUTROPHILS # 2.3 10^3/uL (1.5-8.5); NEUTROPHILS % 34.9 % (36.0-66.0); PLATELET COUNT, AUTOMATED 167 10^3/uL (150-450); RED BLOOD COUNT 2.99 10^6/uL (4.30-6.10); WHITE BLOOD COUNT 6.4 10^3/uL (4.0-10.0)
[2023-09-18 07:07] LABS: BLOOD UREA NITROGEN 15 MG/DL (9-23); CALCIUM LEVEL 8.4 MG/DL (8.3-10.6); CARBON DIOXIDE LEVEL 30 MMOL/L (20-31); CHLORIDE LEVEL 102 MMOL/L (98-107); CREATININE FOR GFR 0.68 MG/DL (0.70-1.30); GLOMERULAR FILTRATION RATE > 60.0 (>42); GLUCOSE, FASTING 82 MG/DL (74-106); POTASSIUM SERUM 4.4 MMOL/L (3.5-5.1); SODIUM LEVEL 139 MMOL/L (136-145)
[2023-09-18 08:04] VITALS: BP 132/78; TEMP 98.3; O2SAT 95
[2023-09-18] MEDS: SYMBICORT 80/4.5MCG INHALER 6GM INH SCH ×2 (08:42→20:24)
[2023-09-18] MEDS: SUCRALFATE SUSP 1GM/10ML UD PEG SCH ×5 (09:00→22:14)
[2023-09-18] MEDS: SITagliptin 50 MG TAB (JANUVIA) PEG SCH ×2 (10:12→13:48)
[2023-09-18] MEDS: DIVALPROEX SPRINKLE 125 MG CAP GT SCH ×3 (10:12→22:12)
[2023-09-18] MEDS: ASPIRIN 81MG CHEW TABLET PEG SCH ×2 (10:13→13:38)
[2023-09-18] MEDS: allopurinoL 100 MG TAB PEG SCH ×2 (10:14→13:37)
[2023-09-18] MEDS: DAPAGLIFLOZIN PROPANEDIOL 10MG TABLET (FARXIGA) GT SCH ×2 (10:14→13:38)
[2023-09-18] MEDS: FLUoxetine 20MG CAP PEG SCH ×2 (10:14→13:35)
[2023-09-18] MEDS: buPROPion 75 MG TAB GT SCH ×3 (10:14→22:14)
[2023-09-18] MEDS: MAGNESIUM OXIDE 400MG TAB (MAG-OX) GT SCH ×3 (10:15→22:13)
[2023-09-18] MEDS: QUEtiapine FUMARATE 25 MG TAB PEG SCH ×2 (10:15→13:48)
[2023-09-18] MEDS: METOPROLOL TART 25 MG TABLET GT SCH ×3 (10:15→22:12)
[2023-09-18] MEDS: OMEPRAZOLE/SODIUM BICARB 20-840MG 10ML ORAL SYRINGE GT SCH ×3 (10:16→22:12)
[2023-09-18] MEDS: APIXABAN 5 MG TAB (ELIQUIS) GT SCH ×3 (10:16→22:13)
[2023-09-18] MEDS: CLOTRIMAZOLE 1% TOPICAL CREAM 30GM TOP SCH ×2 (10:17→22:14)
[2023-09-18 11:42] LABS: HEMATOCRIT 29.9 % (42.0-52.0); HEMOGLOBIN 9.7 g/dl (13.5-17.5); MEAN CORPUSCULAR HEMOGLOBIN 30.3 pg (27.0-33.0); MEAN CORPUSCULAR HGB CONC 32.4 g/dl (32.0-36.5); MEAN CORPUSCULAR VOLUME 93.4 fl (80.0-96.0); PLATELET COUNT, AUTOMATED 184 10^3/uL (150-450); WHITE BLOOD COUNT 6.8 10^3/uL (4.0-10.0)
[2023-09-18] MEDS: LEVEMIR (INSULIN DETEMIR) 1 UNITS/0.01ML SC SCH ×2 (13:40→22:12)
[2023-09-18] MEDS: QUEtiapine FUMARATE 50MG TAB PEG SCH (22:13)
[2023-09-18] MEDS: ACETAMINOPHEN TAB 650MG DOSE (2X325MG) PO PRN (22:13)
[2023-09-19 04:18] VITALS: BP 101/61; TEMP 97.9; O2SAT 98
[2023-09-19] MEDS: SYMBICORT 80/4.5MCG INHALER 6GM INH SCH ×3 (06:02→20:51)
[2023-09-19] MEDS: LEVOTHYROXINE 25MCG TABLET (0.025MG) PEG SCH (06:06)
[2023-09-19 07:54] LABS: BASO % 0.4 % (0.0-1.0); EOS # 0.2 10^3/uL (0.0-0.5); EOS % 2.6 % (0.0-3.0); HEMATOCRIT 30.4 % (42.0-52.0); HEMOGLOBIN 9.9 g/dl (13.5-17.5); LYMPH # 4.7 10^3/uL (1.5-5.0); LYMPH % 58.3 % (24.0-44.0); MEAN CORPUSCULAR HEMOGLOBIN 30.5 pg (27.0-33.0); MEAN CORPUSCULAR HGB CONC 32.6 g/dl (32.0-36.5); MEAN CORPUSCULAR VOLUME 93.5 fl (80.0-96.0); MONO # 0.3 10^3/uL (0.0-0.8); MONO % 3.9 % (2.0-8.0); NEUTROPHILS # 2.7 10^3/uL (1.5-8.5); NEUTROPHILS % 33.4 % (36.0-66.0); PLATELET COUNT, AUTOMATED 194 10^3/uL (150-450); RED BLOOD COUNT 3.25 10^6/uL (4.30-6.10)
[2023-09-19 08:17] LABS: BLOOD UREA NITROGEN 19 MG/DL (9-23); CALCIUM LEVEL 8.3 MG/DL (8.3-10.6); CARBON DIOXIDE LEVEL 31 MMOL/L (20-31); CHLORIDE LEVEL 100 MMOL/L (98-107); CREATININE FOR GFR 0.76 MG/DL (0.70-1.30); GLOMERULAR FILTRATION RATE > 60.0 (>42); GLUCOSE, FASTING 84 MG/DL (74-106); POTASSIUM SERUM 4.4 MMOL/L (3.5-5.1); SODIUM LEVEL 135 MMOL/L (136-145)
[2023-09-19] MEDS: METOPROLOL TART 25 MG TABLET GT SCH ×2 (09:00→21:00)
[2023-09-19] MEDS: ASPIRIN 81MG CHEW TABLET PEG SCH (09:00)
[2023-09-19] MEDS: APIXABAN 5 MG TAB (ELIQUIS) GT SCH (09:00)
[2023-09-19 09:30] VITALS: BP 106/59
[2023-09-19] MEDS: SUCRALFATE SUSP 1GM/10ML UD PEG SCH ×4 (09:38→21:54)
[2023-09-19] MEDS: allopurinoL 100 MG TAB PEG SCH (09:38)
[2023-09-19] MEDS: FLUoxetine 20MG CAP PEG SCH (09:40)
[2023-09-19] MEDS: QUEtiapine FUMARATE 25 MG TAB PEG SCH (09:41)
[2023-09-19] MEDS: MAGNESIUM OXIDE 400MG TAB (MAG-OX) GT SCH ×2 (09:41→21:54)
[2023-09-19] MEDS: SITagliptin 50 MG TAB (JANUVIA) PEG SCH (09:41)
[2023-09-19] MEDS: DAPAGLIFLOZIN PROPANEDIOL 10MG TABLET (FARXIGA) GT SCH (09:41)
[2023-09-19] MEDS: LEVEMIR (INSULIN DETEMIR) 1 UNITS/0.01ML SC SCH ×2 (09:42→21:00)
[2023-09-19] MEDS: CLOTRIMAZOLE 1% TOPICAL CREAM 30GM TOP SCH ×2 (09:42→21:55)
[2023-09-19] MEDS: OMEPRAZOLE/SODIUM BICARB 20-840MG 10ML ORAL SYRINGE GT SCH ×2 (10:45→21:53)
[2023-09-19] MEDS: buPROPion 75 MG TAB GT SCH ×2 (10:45→21:54)
[2023-09-19] MEDS: DIVALPROEX SPRINKLE 125 MG CAP GT SCH ×2 (10:45→21:54)
[2023-09-19] MEDS ORDERED: FERROUS SULFATE 325MG TAB PEG SCH (16:25)
[2023-09-19] MEDS ORDERED: TAMSULOSIN 0.4 MG CAP XX SCH (21:00)
[2023-09-19] MEDS: PRAVASTATIN 20 MG TAB PEG SCH (21:54)
[2023-09-19] MEDS: QUEtiapine FUMARATE 50MG TAB PEG SCH (21:54)
[2023-09-20] MEDS: LEVOTHYROXINE 25MCG TABLET (0.025MG) PEG SCH (06:10)
[2023-09-20 06:11] VITALS: BP 106/70; TEMP 98.4; O2SAT 96
[2023-09-20 07:36] LABS: BASO % 0.4 % (0.0-1.0); EOS # 0.2 10^3/uL (0.0-0.5); EOS % 2.1 % (0.0-3.0); HEMATOCRIT 28.5 % (42.0-52.0); HEMOGLOBIN 9.3 g/dl (13.5-17.5); LYMPH # 3.8 10^3/uL (1.5-5.0); LYMPH % 50.3 % (24.0-44.0); MEAN CORPUSCULAR HEMOGLOBIN 30.6 pg (27.0-33.0); MEAN CORPUSCULAR HGB CONC 32.6 g/dl (32.0-36.5); MEAN CORPUSCULAR VOLUME 93.8 fl (80.0-96.0); MONO # 0.3 10^3/uL (0.0-0.8); MONO % 3.6 % (2.0-8.0); NEUTROPHILS # 3.2 10^3/uL (1.5-8.5); NEUTROPHILS % 42.4 % (36.0-66.0); PLATELET COUNT, AUTOMATED 149 10^3/uL (150-450); RED BLOOD COUNT 3.04 10^6/uL (4.30-6.10); WHITE BLOOD COUNT 7.5 10^3/uL (4.0-10.0)
[2023-09-20] MEDS: SYMBICORT 80/4.5MCG INHALER 6GM INH SCH ×2 (08:00→20:23)
[2023-09-20 08:01] LABS: BLOOD UREA NITROGEN 22 MG/DL (9-23); CALCIUM LEVEL 8.1 MG/DL (8.3-10.6); CARBON DIOXIDE LEVEL 31 MMOL/L (20-31); CHLORIDE LEVEL 100 MMOL/L (98-107); CREATININE FOR GFR 0.75 MG/DL (0.70-1.30); GLOMERULAR FILTRATION RATE > 60.0 (>42); GLUCOSE, FASTING 167 MG/DL (74-106); POTASSIUM SERUM 4.4 MMOL/L (3.5-5.1); SODIUM LEVEL 135 MMOL/L (136-145)
[2023-09-20] MEDS: CLOTRIMAZOLE 1% TOPICAL CREAM 30GM TOP SCH ×2 (09:00→21:00)
[2023-09-20] MEDS: DAPAGLIFLOZIN PROPANEDIOL 10MG TABLET (FARXIGA) GT SCH (09:00)
[2023-09-20] MEDS: DIVALPROEX SPRINKLE 125 MG CAP GT SCH ×2 (09:00→21:52)
[2023-09-20] MEDS: FLUoxetine 20MG CAP PEG SCH (09:00)
[2023-09-20] MEDS: METOPROLOL TART 25 MG TABLET GT SCH ×4 (09:00→21:52)
[2023-09-20] MEDS: ASPIRIN 81MG CHEW TABLET PEG SCH (09:57)
[2023-09-20] MEDS: QUEtiapine FUMARATE 25 MG TAB PEG SCH (09:57)
[2023-09-20] MEDS: SITagliptin 50 MG TAB (JANUVIA) PEG SCH (09:57)
[2023-09-20] MEDS: LEVEMIR (INSULIN DETEMIR) 1 UNITS/0.01ML SC SCH ×2 (09:58→21:51)
[2023-09-20] MEDS: allopurinoL 100 MG TAB PEG SCH (09:58)
[2023-09-20] MEDS: buPROPion 75 MG TAB GT SCH ×2 (09:58→21:52)
[2023-09-20] MEDS: SUCRALFATE SUSP 1GM/10ML UD PEG SCH ×4 (10:00→21:52)
[2023-09-20] MEDS: MAGNESIUM OXIDE 400MG TAB (MAG-OX) GT SCH ×2 (10:00→21:53)
[2023-09-20] MEDS: OMEPRAZOLE/SODIUM BICARB 20-840MG 10ML ORAL SYRINGE GT SCH ×2 (10:01→21:50)
[2023-09-20] MEDS: PRAVASTATIN 20 MG TAB PEG SCH (21:51)
[2023-09-20 21:52] VITALS: BP 106/70
[2023-09-20] MEDS: QUEtiapine FUMARATE 50MG TAB PEG SCH (21:52)
[2023-09-20 21:55] VITALS: BP 121/80; TEMP 97.4; O2SAT 95
[2023-09-21 05:30] VITALS: BP 119/71; TEMP 97.3; O2SAT 96
[2023-09-21] MEDS: DEXTROSE 50% 50ML SYRINGE IV PRN (05:43)
[2023-09-21] MEDS: DIVALPROEX SPRINKLE 125 MG CAP GT SCH (07:24)
[2023-09-21] MEDS: DAPAGLIFLOZIN PROPANEDIOL 10MG TABLET (FARXIGA) GT SCH (07:24)
[2023-09-21] MEDS: LEVOTHYROXINE 25MCG TABLET (0.025MG) PEG SCH (07:24)
[2023-09-21] MEDS: METOPROLOL TART 25 MG TABLET GT SCH (07:25)
[2023-09-21] MEDS: ASPIRIN 81MG CHEW TABLET PEG SCH (07:25)
[2023-09-21] MEDS: OMEPRAZOLE/SODIUM BICARB 20-840MG 10ML ORAL SYRINGE GT SCH (07:25)
[2023-09-21] MEDS: MAGNESIUM OXIDE 400MG TAB (MAG-OX) GT SCH (07:25)
[2023-09-21] MEDS: buPROPion 75 MG TAB GT SCH (07:25)
[2023-09-21] MEDS: SITagliptin 50 MG TAB (JANUVIA) PEG SCH (07:26)
[2023-09-21] MEDS: FLUoxetine 20MG CAP PEG SCH (07:26)
[2023-09-21] MEDS: LEVEMIR (INSULIN DETEMIR) 1 UNITS/0.01ML SC SCH (07:26)
[2023-09-21] MEDS: SUCRALFATE SUSP 1GM/10ML UD PEG SCH (07:26)
[2023-09-21] MEDS: allopurinoL 100 MG TAB PEG SCH (07:26)
[2023-09-21] MEDS: QUEtiapine FUMARATE 25 MG TAB PEG SCH (07:26)
[2023-09-21] MEDS: SYMBICORT 80/4.5MCG INHALER 6GM INH SCH (07:51)
[2023-09-21] MEDS: CLOTRIMAZOLE 1% TOPICAL CREAM 30GM TOP SCH (08:05)
[2023-09-21 11:07] LABS: HEMATOCRIT 29.8 % (42.0-52.0); HEMOGLOBIN 9.5 g/dl (13.5-17.5); MEAN CORPUSCULAR HEMOGLOBIN 30.4 pg (27.0-33.0); MEAN CORPUSCULAR HGB CONC 31.9 g/dl (32.0-36.5); MEAN CORPUSCULAR VOLUME 95.2 fl (80.0-96.0); PLATELET COUNT, AUTOMATED 157 10^3/uL (150-450); RED BLOOD COUNT 3.13 10^6/uL (4.30-6.10); WHITE BLOOD COUNT 6.6 10^3/uL (4.0-10.0)
[2023-09-21 11:38] LABS: ALBUMIN 2.3 G/DL (3.2-5.2); ALKALINE PHOSPHATASE 64 U/L (46-116); ALT/SGPT 10 U/L (7.0-40); AST/SGOT 16 U/L (<34); BILIRUBIN,TOTAL 0.2 MG/DL (0.3-1.2); BLOOD UREA NITROGEN 21 MG/DL (9-23); CALCIUM LEVEL 8.2 MG/DL (8.3-10.6); CARBON DIOXIDE LEVEL 31 MMOL/L (20-31); CHLORIDE LEVEL 102 MMOL/L (98-107); CREATININE FOR GFR 0.76 MG/DL (0.70-1.30); GLOMERULAR FILTRATION RATE > 60.0 (>42); GLUCOSE, FASTING 88 MG/DL (74-106); POTASSIUM SERUM 4.2 MMOL/L (3.5-5.1); SODIUM LEVEL 138 MMOL/L (136-145); TOTAL PROTEIN 5.2 G/DL (5.7-8.2)
[2023-09-21 13:35] VITALS: BP 135/48; TEMP 98.1; O2SAT 96
[2023-09-21] MEDS ORDERED: OLANZapine 5 MG TAB PO PRN (14:40)
[2023-09-21] MEDS ORDERED: OLANZapine INTRAMUSCULAR 10MG VIAL IM PRN (14:45)
[2023-09-21] MEDS ORDERED: ATROPINE SULFATE 1% OPHTH SOLN 2ML BTL SL PRN (16:25)
[2023-09-21] MEDS: LORazepam 1 MG TAB PO PRN (16:52)
[2023-09-21] MEDS: MORPHINE 10MG/0.5ML ORAL CONCENTRATE SOLUTION U/D SL PRN ×2 (16:52→19:40)
[2023-09-21] MEDS: QUEtiapine FUMARATE 50MG TAB PO SCH (19:39)
[2023-09-21] MEDS: DIVALPROEX SPRINKLE 125 MG CAP PO SCH (19:40)
[2023-09-22] MEDS: QUEtiapine FUMARATE 25 MG TAB PO SCH (09:27)
[2023-09-22] MEDS: DIVALPROEX SPRINKLE 125 MG CAP PO SCH ×2 (09:27→20:09)
[2023-09-22] MEDS: QUEtiapine FUMARATE 50MG TAB PO SCH (20:08)
[2023-09-23] MEDS: QUEtiapine FUMARATE 25 MG TAB PO SCH (08:12)
[2023-09-23] MEDS: DIVALPROEX SPRINKLE 125 MG CAP PO SCH ×2 (08:13→19:33)
[2023-09-23] MEDS: QUEtiapine FUMARATE 50MG TAB PO SCH (19:32)
[2023-09-23] MEDS: LORazepam 1 MG TAB PO PRN (19:32)
[2023-09-23] MEDS: MORPHINE 10MG/0.5ML ORAL CONCENTRATE SOLUTION U/D SL PRN (19:33)
[2023-09-24] MEDS: DIVALPROEX SPRINKLE 125 MG CAP PO SCH ×2 (09:34→19:57)
[2023-09-24] MEDS: QUEtiapine FUMARATE 25 MG TAB PO SCH (09:34)
[2023-09-24] MEDS: LORazepam 1 MG TAB PO PRN (16:19)
[2023-09-24] MEDS: QUEtiapine FUMARATE 50MG TAB PO SCH (19:56)
[2023-09-25] MEDS: QUEtiapine FUMARATE 25 MG TAB PO SCH (09:42)
[2023-09-25] MEDS: DIVALPROEX SPRINKLE 125 MG CAP PO SCH ×2 (09:43→20:38)
[2023-09-25] MEDS: MORPHINE 10MG/0.5ML ORAL CONCENTRATE SOLUTION U/D SL PRN (09:43)
[2023-09-25] MEDS: QUEtiapine FUMARATE 50MG TAB PO SCH (20:38)
[2023-09-25] MEDS: LORazepam 1 MG TAB PO PRN (20:38)
[2023-09-26] MEDS: DIVALPROEX SPRINKLE 125 MG CAP PO SCH ×2 (09:00→20:20)
[2023-09-26] MEDS: QUEtiapine FUMARATE 25 MG TAB PO SCH (09:00)
[2023-09-26] MEDS: QUEtiapine FUMARATE 50MG TAB PO SCH (20:20)
[2023-09-26] MEDS: LORazepam 1 MG TAB PO PRN (21:08)
[2023-09-27] MEDS: MORPHINE 10MG/0.5ML ORAL CONCENTRATE SOLUTION U/D SL PRN (00:54)
== END 2023-09-27 08:42 | disposition expired | DRG 871 ==
LOC: M ED 23:17 → M ED INP 08-29 04:14 → M ICU 08-29 05:50 → M PCU 08-30 09:40 → M MSPAV 09-04 18:05
PROVIDERS: ADMIT Internal Medicine; ATTEND Internal Medicine
PROC: 02HV33Z Insertion of Infusion Device into Superior Vena Cava, Percutaneous Approach (ICD-10-PCS; principal; 2023-09-06 10:17)
PROC: 0DH64UZ Insertion of Feeding Device into Stomach, Percutaneous Endoscopic Approach (ICD-10-PCS; 2023-09-12)
DX: A41.02 Sepsis due to Methicillin resistant Staphylococcus aureus (principal); J15.212 Pneumonia due to Methicillin resistant Staphylococcus aureus; J96.01 Acute respiratory failure with hypoxia; J69.0 Pneumonitis due to inhalation of food and vomit; G93.41 Metabolic encephalopathy; E43 Unspecified severe protein-calorie malnutrition; R65.21 Severe sepsis with septic shock; R64 Cachexia; D61.818 Other pancytopenia; C91.90 Lymphoid leukemia, unspecified not having achieved remission; I50.22 Chronic systolic (congestive) heart failure; L97.429 Non-pressure chronic ulcer of left heel and midfoot with unspecified severity; I13.0 Hypertensive heart and chronic kidney disease with heart failure and stage 1 through stage 4 chronic kidney disease, or unspecified chronic kidney disease; I31.39 Other pericardial effusion (noninflammatory); K92.2 Gastrointestinal hemorrhage, unspecified; T82.868A Thrombosis due to vascular prosthetic devices, implants and grafts, initial encounter; Z68.1 Body mass index [BMI] 19.9 or less, adult; F03.90 Unspecified dementia, unspecified severity, without behavioral disturbance, psychotic disturbance, mood disturbance, and anxiety; E11.649 Type 2 diabetes mellitus with hypoglycemia without coma; E03.9 Hypothyroidism, unspecified; K21.9 Gastro-esophageal reflux disease without esophagitis; I48.91 Unspecified atrial fibrillation; E78.00 Pure hypercholesterolemia, unspecified; M10.9 Gout, unspecified; E11.40 Type 2 diabetes mellitus with diabetic neuropathy, unspecified; J44.9 Chronic obstructive pulmonary disease, unspecified; E11.22 Type 2 diabetes mellitus with diabetic chronic kidney disease; F32.A Depression, unspecified; I35.0 Nonrheumatic aortic (valve) stenosis; N18.9 Chronic kidney disease, unspecified; L89.622 Pressure ulcer of left heel, stage 2; I25.10 Atherosclerotic heart disease of native coronary artery without angina pectoris; E78.5 Hyperlipidemia, unspecified; N40.0 Benign prostatic hyperplasia without lower urinary tract symptoms; R13.10 Dysphagia, unspecified; F41.9 Anxiety disorder, unspecified; D69.6 Thrombocytopenia, unspecified; D70.9 Neutropenia, unspecified; E11.65 Type 2 diabetes mellitus with hyperglycemia; E83.39 Other disorders of phosphorus metabolism; E83.42 Hypomagnesemia; E87.6 Hypokalemia; D50.9 Iron deficiency anemia, unspecified; D63.8 Anemia in other chronic diseases classified elsewhere; Z93.1 Gastrostomy status; K44.9 Diaphragmatic hernia without obstruction or gangrene; K57.90 Diverticulosis of intestine, part unspecified, without perforation or abscess without bleeding; Z79.4 Long term (current) use of insulin; Z79.899 Other long term (current) drug therapy; Z79.82 Long term (current) use of aspirin; Y84.8 Other medical procedures as the cause of abnormal reaction of the patient, or of later complication, without mention of misadventure at the time of the procedure